=== PATIENT | female | born 1970 | race Hispanic/Latino ===

== ENCOUNTER 2020-09-09 23:07 | Emergency (ER) | payer OTHER ==
[2020-09-10] MEDS ORDERED: METHYLPREDNISOLONE 125 MG INJ ONE (00:46)
[2020-09-10] MEDS ORDERED: HYDROCODONE/APAP 5/325 MG TAB ONE (00:47)
[2020-09-10] MEDS ORDERED: KETOROLAC 30 MG/ML INJ ONE (00:47)
--- NOTE | 2020-09-10 01:05 | ER ---
Nurse's Notes [facility] Name: Katie Santiago Age: 50 yrs Sex: Female : 1970 Arrival Date: 09/09/2020 Time: 23:12 Bed 20 Private MD: Diagnosis: Coronavirus infection, unspecified Presentation: 09/09 23:25 Care prior to arrival: None. Transition of care: patient was not received from another sg setting of care. 23:25 Acuity: ERIN 3 sg 23:25 Chief complaint: Patient states: I tested positive for COVID and was diagnosed sg yesterday. My chest is hurting, especially with the cough and also feeling short of breath. 09/10 00:30 Initial Sepsis Screen: Does the patient meet any 2 criteria? No. Patient's initial sf sepsis screen is negative. Does the patient have a suspected source of infection? No. Patient's initial sepsis screen is negative. Risk Assessment: Do you want to hurt yourself or someone else? Patient reports no desire to harm self or others. Onset of symptoms was September 01, 2020. 00:35 Chief complaint: Patient states: Dx with COVID yesterday, having chest wall pain, cough sf and soa. 00:35 Coronavirus screen: Client reports previous positive COVID test result. Date of sf collection: September 08, 2020 Staff notified of need for isolation. Ebola Screen: Patient negative for fever greater than or equal to 101.5 degrees Fahrenheit, and additional compatible Ebola Virus Disease symptoms Patient denies exposure to infectious person. Patient denies travel to an Ebola-affected area in the 21 days before illness onset. No symptoms or risks identified at this time. 00:35 Method Of Arrival: Ambulatory sf Triage Assessment: 00:35 Musculoskeletal: No signs and/or symptoms reported regarding the musculoskeletal system.sf 00:40 General: Appears in no apparent distress. comfortable, Behavior is calm, cooperative, sf appropriate for age. Pain: Complains of pain in chest Pain currently is 10 out of 10 on a pain scale. EENT: No deficits noted. No signs and/or symptoms were reported regarding the EENT system. Neuro: No deficits noted. Level of Consciousness is awake, alert, obeys commands, Oriented to person, place, time, situation. Cardiovascular: Reports chest pain, shortness of breath, Denies diaphoresis, lightheadedness, palpitations, syncope, Patient's skin is warm and dry. Respiratory: Reports shortness of breath cough that is Airway is patent Respiratory effort is even, unlabored, Respiratory pattern is regular, symmetrical, Onset: The symptoms/episode began/occurred gradually, the patient has mild shortness of breath. GI: No signs and/or symptoms were reported involving the gastrointestinal system. : No signs and/or symptoms were reported regarding the genitourinary system. Derm: No signs and/or symptoms reported regarding the dermatologic system. 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 - Social history:: Patient/guardian denies using alcohol, street drugs, The patient lives with family, Smoking status: Patient denies any tobacco usage or history of. - Family history:: not pertinent. Screenin:35 Abuse screen: Denies threats or abuse. Denies injuries from another. Nutritional sf screening: No deficits noted. Tuberculosis screening: No symptoms or risk factors identified. Never had TB. Possible symptoms: None Risk factors: None. Fall Risk None identified. No fall in past 12 months (0 pts). No secondary diagnosis (0 pts). No IV (0 pts). Ambulatory Aid- None/Bed Rest/Nurse Assist (0 pts). Gait- Normal/Bed Rest/Wheelchair (0 pts) Mental Status- Oriented to own ability (0 pts). Total [place] Fall Scale indicates No Risk (0-24 pts). Assessment: 00:35 Reassessment: SEE TRIAGE ASSESSMENT. sf Vital Signs: 09/09 23:25 Resp 16; Pulse Ox 97% on R/A; sg 09/10 00:30 BP 120 / 89; Pulse 96; Resp 18; Temp 98; Pulse Ox 98% ; Weight 90.72 kg; Height 5 ft. 1 sf in. (154.94 cm); Pain 10/10; 00:30 Body Mass Index 37.79 (90.72 kg, 154.94 cm) sf ED Course: 09/09 23:12 Patient arrived in ED. cf2 23:25 Triage completed. 23:25 Arm band placed on. sg 23:53 Gavino Zamora, RN is Primary Nurse. sf 23:53 Fazal Kramer MD is Attending Physician. [facility] 09/10 00:10 X-ray(s) taken. sf 00:20 Chest Single View XRAY In Process Unspecified. EDMS 00:35 Patient has correct armband on for positive identification. Bed in low position. Call sf light in reach. Side rails up X 1. Pulse ox on. NIBP on. Door closed. Noise minimized. Visitors limited. Lights dimmed. Verbal reassurance given. 00:35 No provider procedures requiring assistance completed. sf 01:28 Patient did not have IV access during this emergency room visit. sf Administered Medications: 00:36 Drug: [place] 5 mg-325 mg 1 tabs Route: PO; sf 01:27 Follow up: Response: No adverse reaction; Pain is decreased sf 00:38 Drug: TORadol 60 mg Route: IM; Site: right ventrogluteal; sf 01:27 Follow up: Response: No adverse reaction; Pain is decreased sf 00:40 Drug: SOLU-Medrol 125 mg Route: IM; Site: left ventrogluteal; sf 01:27 Follow up: Response: No adverse reaction sf Outcome: 01:05 Discharge ordered by . [facility] 01:28 Discharged to home ambulatory. sf 01:28 Condition: stable 01:28 Discharge instructions given to patient, Instructed on discharge instructions, follow up and referral plans. medication usage, Demonstrated understanding of instructions, follow-up care, medications, Prescriptions given X 2. 01:28 Patient left the ED. sf Signatures: Dispatcher [employer] EDNM Gavino Cox RN RN Fazal Kramer MD MD [facility] Gavino Zamora, JULISSA RN sf Corrections: (The following items were deleted from the chart) 00:51 00:40 General: Appears in no apparent distress. comfortable, Behavior is calm, sf cooperative, appropriate for age, sf
--- NOTE | 2020-09-10 01:05 | EDPHYS ---
Physician Documentation [facility] Name: Katie Santiago Age: 50 yrs Sex: Female : 1970 Arrival Date: 09/09/2020 Time: 23:12 Bed 20 Private MD: ED Physician Fazal Kramer HPI: 09/10 00:18 This 50 yrs old Female presents to ER via Unassigned with complaints of COVID ma2 POSITIVE, Breathing Difficulty, Chest Pain, Fever. 00:19 Onset: The symptoms/episode began/occurred gradually, 1 day(s) ago. Associated signs ma2 and symptoms: Pertinent negatives: non-productive cough, diaphoresis, fever, loss of consciousness, numbness in extremities, visual changes. Severity of symptoms: At their worst the symptoms were mild in the emergency department the symptoms are unchanged. The patient has not experienced similar symptoms in the past. 00:19 covid has frequent cough, has chest wall pain everytimes she coughs, constant, pain is ma2 only when she cough or take deep breath, no cardiac history no substernal chest pain . 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 - Social history:: Patient/guardian denies using alcohol, street drugs, The patient lives with family, Smoking status: Patient denies any tobacco usage or history of. - Family history:: not pertinent. ROS: 00:19 Constitutional: Negative for fever, chills, and weight loss, Abdomen/GI: Negative for ma2 abdominal pain, nausea, diarrhea, and constipation, MS/Extremity: Negative for injury and deformity, Skin: Negative for injury, rash, and discoloration, Psych: Negative for depression, anxiety, suicide ideation, homicidal ideation, and hallucinations, Allergy/Immunology: Negative for hives, rash, and allergies, Endocrine: Negative for neck swelling, polydipsia, polyuria, polyphagia, and marked weight changes. 00:19 All other systems are negative. Exam: 00:19 Constitutional: This is a well developed, well nourished patient who is awake, alert, ma2 and in no acute distress. Head/Face: Normocephalic, atraumatic. Eyes: Pupils equal round and reactive to light, extra-ocular motions intact. Lids and lashes normal. Conjunctiva and sclera are non-icteric and not injected. Cornea within normal limits. Periorbital areas with no swelling, redness, or edema. ENT: Nares patent. No nasal discharge, no septal abnormalities noted. Tympanic membranes are normal and external auditory canals are clear. Oropharynx with no redness, swelling, or masses, exudates, or evidence of obstruction, uvula midline. Mucous membranes moist. Neck: Trachea midline, no thyromegaly or masses palpated, and no cervical lymphadenopathy. Supple, full range of motion without nuchal rigidity, or vertebral point tenderness. No Meningismus. Chest/axilla: Normal chest wall appearance and motion. chest pain reproducibel on exam and mildly tender with no deformity. No lesions are appreciated. Cardiovascular: Regular rate and rhythm with a normal S1 and S2. No gallops, murmurs, or rubs. Normal PMI, no JVD. No pulse deficits. Respiratory: Lungs have equal breath sounds bilaterally, clear to auscultation and percussion. No rales, rhonchi or wheezes noted. No increased work of breathing, no retractions or nasal flaring. Abdomen/GI: Soft, non-tender, with normal bowel sounds. No distension or tympany. No guarding or rebound. No evidence of tenderness throughout. Back: No spinal tenderness. No costovertebral tenderness. Full range of motion. Skin: Warm, dry with normal turgor. Normal color with no rashes, no lesions, and no evidence of cellulitis. MS/ Extremity: Pulses equal, no cyanosis. Neurovascular intact. Full, normal range of motion. Neuro: Awake and alert, GCS 15, oriented to person, place, time, and situation. Cranial nerves II-XII grossly intact. Motor strength 5/5 in all extremities. Sensory grossly intact. Cerebellar exam normal. Normal gait. Vital Signs: 09/09 23:25 Resp 16; Pulse Ox 97% on R/A; sg 09/10 00:30 BP 120 / 89; Pulse 96; Resp 18; Temp 98; Pulse Ox 98% ; Weight 90.72 kg; Height 5 ft. 1 sf in. (154.94 cm); Pain 10/10; 00:30 Body Mass Index 37.79 (90.72 kg, 154.94 cm) sf MDM: 09/09 23:53 Patient medically screened. ma2 09/10 00:19 Differential diagnosis: asthma, Bronchitis pneumonia, reactive airway disease, covid. ma2 Antibiotic administration: Not indicated. Data reviewed: vital signs, nurses notes. Counseling: I had a detailed discussion with the patient and/or guardian regarding: the historical points, exam findings, and any diagnostic results supporting the discharge/admit diagnosis, the presence of at least one elevated blood pressure reading (>120/80) during this emergency department visit, the need for outpatient follow up. ED course: she takes z-pack and cough suppressant . 09/09 23:54 Order name: Chest Single View XRAY ma2 Administered Medications: 00:36 Drug: [place] 5 mg-325 mg 1 tabs Route: PO; sf 01:27 Follow up: Response: No adverse reaction; Pain is decreased sf 00:38 Drug: TORadol 60 mg Route: IM; Site: right ventrogluteal; sf 01:27 Follow up: Response: No adverse reaction; Pain is decreased sf 00:40 Drug: SOLU-Medrol 125 mg Route: IM; Site: left ventrogluteal; sf 01:27 Follow up: Response: No adverse reaction sf Disposition: 09/10/20 01:05 Discharged to Home. Impression: Coronavirus infection, unspecified. - Condition is Stable. - Discharge Instructions: Viral Respiratory Infection, [id number], COVID-19. - Prescriptions for Diclofenac Sodium 75 mg Oral Tablet Sustained Release - take 1 tablet by ORAL route 2 times per day; 30 tablet. Medrol ([place]) 4 mg Oral Tablets, Dose Pack - take 1 tablet by ORAL route as directed - follow package instructions; 1 packet. - Medication Reconciliation Form, Thank You Letter, Antibiotic Education, Prescription Opioid Use form. - Follow up: Private Physician; When: Tomorrow; Reason: If symptoms return, Continuance of care. Signatures: Dispatcher [employer] EDMS Fazal Kramer MD MD ma2 Zamora, Gavino, RN RN sf Corrections: (The following items were deleted from the chart) 01:28 01:05 09/10/2020 01:05 Discharged to Home. Impression: Coronavirus infection, sf unspecified. Condition is Stable. Prescriptions for Diclofenac Sodium 75 mg Oral Tablet Sustained Release - take 1 tablet by ORAL route 2 times per day; 30 tablet, Medrol ([place]) 4 mg Oral Tablets, Dose Pack - take 1 tablet by ORAL route as directed - follow package instructions; 1 packet. and Forms are Medication Reconciliation Form, Thank You Letter, Antibiotic Education, Prescription Opioid Use. Follow up: Private Physician; When: Tomorrow; Reason: If symptoms return, Continuance of care. ma2
[2020-09-10 01:51] VITALS: BP 120/89; TEMP 98; O2SAT 98
--- NOTE | 2020-09-10 07:53 | RAD REPORT ---
EXAM DESCRIPTION: RAD - Chest Single View - 09/10/2020 12:21 am CLINICAL HISTORY: CONGESTION COMPARISON: None TECHNIQUE: AP portable chest image was obtained 09/10/2020 12:21 am . FINDINGS: Exam is significantly limited due to large body habitus, very shallow inspiration and lord otic positioning. A focal consolidation or mass not identified. Interstitial markings are prominent mostly due to the e xam limitations. Mild interstitial edema or infiltrate would certainly be possible. Trachea is in the midline. Heart and vasculature are normal. No measurable pleural effusion and no pneumothorax. No ac [place] bony abnormality seen. No acute aortic findings suspected. IMPRESSION: Exam is significantly limited but does not demonstrate peripheral mass or consolidation. Interstitial edema or infiltrate can be easily masked in this setting.
== END 2020-09-10 01:28 | disposition home or self-care (01) ==
LOC: ER 23:07
DX: U07.1 COVID-19 (principal); I10 Essential (primary) hypertension; E11.9 Type 2 diabetes mellitus without complications
CPT/HCPCS: 71045; J2930; 96372; 99284

== ENCOUNTER 2020-09-13 17:09 | Inpatient (IN) | payer OTHER ==
[2020-09-13] MEDS ORDERED: dexAMETHasone 10 MG/ML VIAL ONE (18:47)
[2020-09-13 19:02] LABS: Absolute Lymphocytes (CBC) 2.6 K/uL (0.7-4.9); Basophils % 0.2 % (0-1.3); Hematocrit 42.2 % (36.0-45.0); Lymphocytes % 16.9 % (15.3-44.8); MPV 8.7 fL (7.6-11.3); RBC Red Blood Cell Count 5.41 M/uL (3.86-4.86)
[2020-09-13 19:22] LABS: ALT/SGPT 25 U/L (12-78); AST/SGOT 25 U/L (15-37); Albumin 3.3 g/dL (3.4-5.0); Alkaline Phosphatase 128 U/L (45-117); BUN Blood Urea Nitrogen 14 mg/dL (7-18); Bicarbonate 27 mmol/L (21-32); Bilirubin Direct 0.1 mg/dL (0-0.2); Bilirubin Total 0.4 mg/dL (0.2-1.0); Glucose Level 100 mg/dL (74-106); Magnesium 2.3 mg/dL (1.8-2.4); NT PRO-BNP 156 pg/mL (<125); Potassium 3.4 mmol/L (3.5-5.1); Protein, Total 8.5 g/dL (6.4-8.2); Sodium Level 142 mmol/L (136-145); Troponin (Emerg Dept Use Only) < 0.02 ng/mL (0.0-0.045)
[2020-09-13 19:35] LABS: Protime INR 1.08
[2020-09-13] MEDS ORDERED: ACETAMINOPHEN 500 MG TAB ONE (20:02)
--- NOTE | 2020-09-13 20:02 | ER ---
Nurse's Notes [facility] Name: Katie Santiago Age: 50 yrs Sex: Female : 1970 Arrival Date: 09/13/2020 Time: 17:11 Bed 20 Private MD: Diagnosis: Pneumonia due to other specified infectious organisms;Coronavirus infection, unspecified;Hypoxemia Presentation: 09/13 17:30 Chief complaint: Patient states: Covid + last Wednesday. Been having cough, body aches, ll1 fever for 9 days. SOB for 3 days. Coronavirus screen: Client denies travel out of the [place] in the last 14 days. chills, congestion, cough unrelated to allergies, difficulty breathing, fatigue, fever, headache, muscle pain, nausea, runny nose, shaking with chills, shortness of breath, loss of taste or smell, vomiting. Client presents with at least one sign or symptom that may indicate coronavirus-19. Standard/surgical mask placed on the client. Ebola Screen: Patient denies travel to an Ebola-affected area in the 21 days before illness onset. Initial Sepsis Screen: Does the patient meet any 2 criteria? HR > 90 bpm. No. Patient's initial sepsis screen is negative. Does the patient have a suspected source of infection? Yes: Productive cough/pneumonia. Risk Assessment: Do you want to hurt yourself or someone else? Patient reports no desire to harm self or others. Onset of symptoms was September 02, 2020. 17:30 Method Of Arrival: Wheelchair ll1 17:30 Acuity: ERIN 2 ll1 DIRECTOR PUBLIC: 22:27 LMP N/A - Hysterectomy sf Historical: - Allergies: 17:30 No Known Allergies; ll1 - Home Meds: 19:32 metformin 500 mg Oral tr24 1 tab once daily [Active]; lisinopril 10 mg Oral tab 1 tab sf once daily [Active]; - PMHx: 17:30 Diabetes - NIDDM; Hypertension; ll1 - PSHx: 17:30 partial hysterectomy; ll1 - Immunization history:: Flu vaccine is not up to date. - Social history:: Smoking status: Patient denies any tobacco usage or history of. Screenin:01 Abuse screen: Denies threats or abuse. Nutritional screening: No deficits noted. bw Tuberculosis screening: No symptoms or risk factors identified. Fall Risk None identified. Assessment: 18:56 General: Appears uncomfortable, SOB. Behavior is cooperative, appropriate for age, bw anxious. Pain: Complains of pain in headache. Neuro: Reports headache. Cardiovascular: Rhythm is regular. Respiratory: Airway is patent Respiratory effort is even, labored, Breath sounds are diminished bilaterally. GI: Reports nausea, vomiting. : No deficits noted. EENT: No signs and/or symptoms were reported regarding the EENT system. Derm: No signs and/or symptoms reported regarding the dermatologic system. Musculoskeletal: No signs and/or symptoms reported regarding the musculoskeletal system. 19:29 General: Appears uncomfortable, Behavior is calm, cooperative, Reports feeling ill for. sf Pain: Complains of pain in head Pain currently is 10 out of 10 on a pain scale. Neuro: Level of Consciousness is awake, alert, Oriented to person, place, time, situation, Reports headache in entire. Cardiovascular: Patient's skin is warm and dry. Rhythm is sinus rhythm. Respiratory: Reports shortness of breath cough that is Airway is patent Respiratory effort is even, unlabored, Respiratory pattern is symmetrical, Denies pain with respiration, pain with cough. GI: Abdomen is non-distended, Reports nausea, vomiting. : No deficits noted. No signs and/or symptoms were reported regarding the genitourinary system. EENT: No signs and/or symptoms were reported regarding the EENT system. Derm: No signs and/or symptoms reported regarding the dermatologic system. Musculoskeletal: No signs and/or symptoms reported regarding the musculoskeletal system. 21:25 Reassessment: Patient appears in no apparent distress at this time. No changes from sf previously documented assessment. Patient and/or family updated on plan of care and expected duration. Pain level reassessed. Patient is alert, oriented x 3, equal unlabored respirations, skin warm/dry/pink. 22:27 Reassessment: Patient appears in no apparent distress at this time. No changes from sf previously documented assessment. Patient and/or family updated on plan of care and expected duration. Pain level reassessed. Patient is alert, oriented x 3, equal unlabored respirations, skin warm/dry/pink. Called lab to cancel serum due to hysterectomy. Vital Signs: 17:30 BP 125 / 99; Pulse 91; Resp 24; Temp 98.7; Pulse Ox 89% on R/A; Weight 90.72 kg; Height ll1 5 ft. 1 in. (154.94 cm); Pain 10/10; 17:36 Pulse 84; Resp 22; Pulse Ox 95% on 2 lpm NC; ll1 19:21 BP 130 / 86; Pulse 81; Resp 20; Pulse Ox 99% on 3 lpm NC; Pain 10/10; sf 20:42 BP 110 / 70; Pulse 81; Resp 20; Pulse Ox 99% on 3 lpm NC; sf 22:26 BP 104 / 63; Pulse 81; Resp 18; Pulse Ox 99% on 3 lpm NC; sf 17:30 Body Mass Index 37.79 (90.72 kg, 154.94 cm) ll1 17:30 O2 sat 89-92% RA during triage. ll1 ED Course: 17:11 Patient arrived in ED. mr 17:28 Arm band placed on. ll1 17:34 Triage completed. ll1 18:06 Jakob Burt PA is PHCP. cp 18:06 Cornelius Lynn MD is Attending Physician. cp 18:10 Patient placed in an exam room, on a stretcher. ll1 18:28 Rosa Whelan, RN is Primary Nurse. bw 19:00 XRAY Chest (1 view) In Process Unspecified. EDMS 19:01 Call light in reach. Side rails up X2. cardiac monitor technician on. Pulse ox on. NIBP on. Warm bw blanket given. 19:01 No provider procedures requiring assistance completed. Inserted saline lock: 20 gauge bw in right antecubital area, using aseptic technique. Blood collected. 19:05 Primary Nurse role handed off by Rosa Whelan, JULISSA sf 19:05 Gavino Zamora, JULISSA is Primary Nurse. sf 19:54 COVID swab sent to lab. jp3 20:00 Hitesh Gotti is Hospitalizing Provider. cp 20:05 CT Chest For PE Angio Sent. sf 20:20 CT Chest For PE Angio In Process Unspecified. EDMS 20:30 First set of blood cultures drawn by me. sf 20:40 Second set of blood cultures drawn by me. sf 20:49 Blood Culture Adult (2) Sent. sf 21:55 Urine collected: clean catch specimen, clear. sf 22:25 Urine Dipstick--Ancillary (enter results) Sent. sf 22:28 Patient admitted, IV remains in place. sf 22:47 Hospitalizing Provider role handed off by Hitesh Gotti cp 22:47 Escobar Haines MD is Hospitalizing Provider. cp Administered Medications: 18:55 Drug: Decadron - Dexamethasone 10 mg Route: IVP; Site: right antecubital; bw 19:28 Follow up: Response: No adverse reaction sf 19:55 Drug: Tylenol 1000 mg Route: PO; sf 20:25 Follow up: Response: No adverse reaction; Pain is unchanged, physician notified sf 19:55 Drug: Tussionex Pennkinetic ER (chlorpheniramine-hydrocodone) 5 ml Route: PO; sf 20:25 Follow up: Response: No adverse reaction; Marked relief of symptoms sf 19:55 Drug: Potassium Effervescent Tablet 25 mEq Route: PO; sf 20:25 Follow up: Response: No adverse reaction sf 21:56 Drug: Aspirin Chewable Tablet 81 mg Route: PO; sf 22:34 Follow up: Response: No adverse reaction sf 22:00 Drug: Rocephin - (cefTRIAXone) 1 grams Route: IVPB; Infused Over: 30 mins; Site: right sf antecubital; 22:05 Follow up: IV Status: Completed infusion; IV Intake: 10ml sf 22:34 Follow up: Response: No adverse reaction sf 22:05 Drug: Zithromax (azithromycin) 500 mg Route: IVPB; Infused Over: 1 hrs; Site: right sf antecubital; 22:41 Follow up: IV Status: Infusion continued upon admission sf Intake: 22:05 IV: 10ml; Total: 10ml. sf Outcome: 20:01 Decision to Hospitalize by Provider. cp 22:39 Admitted to Tele accompanied by tech, via wheelchair, room 414, with oxygen, Report sf called to JULISSA Mathis 22:39 Condition: stable 22:39 Instructed on the need for admit. 22:51 Patient left the ED. sf Signatures: Dispatcher [employer] [place] Antonia Buitrago Jakob Jaimes PA PA cp David Snow jp3 Brandon Stewart RN RN ll1 Gavino Zamora RN RN sf Webb, Bethany, RN RN Corrections: (The following items were deleted from the chart) 18:11 17:30 BP 125 / 99; Pulse 91bpm; Resp 24bpm; Pulse Ox 92% RA; Temp 98.7F; 90.72 kg; ll1 Height 5 ft. 1 in.; BMI: 37.7; Pain 10/10; ll1 21:30 19:21 BP 130 / 86; Pulse 81bpm; Resp 16bpm; Pulse Ox 99% 3 lpm Nasal Cannula; Pain sf 10; sf
--- NOTE | 2020-09-13 20:02 | EDPHYS ---
Physician Documentation [facility] Name: Katie Santiago Age: 50 yrs Sex: Female : 1970 Arrival Date: 09/13/2020 Time: 17:11 Bed 20 Private MD: ED Physician Cornelius Lynn HPI: 09/13 18:25 This 50 yrs old Female presents to ER via Wheelchair with complaints of cp COVID+, Breathing Difficulty, Cough. 18:25 The patient has shortness of breath at rest. Onset: The symptoms/episode began/occurred cp 3 day(s) ago. 18:25 Duration: The symptoms are continuous, and are steadily getting worse. Associated signs cp and symptoms: Pertinent positives: chest pain, non-productive cough, Pertinent negatives: fever. Patient reports testing positive for COVID-19 9 days ago. 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 - Social history:: Smoking status: Patient denies any tobacco usage or history of. ROS: 18:27 Constitutional: Negative for fever, poor PO intake. cp 18:27 Eyes: Negative for injury, pain, redness, and discharge. cp 18:27 Cardiovascular: Positive for chest pain, with cough, Negative for edema, palpitations. cp 18:27 Respiratory: Positive for cough, with no reported sputum, shortness of breath, at rest. cp Negative for wheezing. 18:27 Abdomen/GI: Negative for abdominal pain, vomiting, diarrhea, constipation. 18:27 Neuro: Negative for altered mental status, syncope, weakness. 18:27 All other systems are negative. Exam: 18:28 ECG was reviewed by the Attending Physician. cp 18:30 Constitutional: The patient appears alert, awake, non-diaphoretic, non-toxic, well cp developed, well nourished, obese, in obvious distress, mildly distressed. 18:30 Head/Face: Normocephalic, atraumatic. cp 18:30 Eyes: Periorbital structures: appear normal, Conjunctiva: normal, no exudate, no cp injection, Sclera: no appreciated abnormality, Lids and lashes: appear normal, bilaterally. 18:30 ENT: External ear(s): are unremarkable, Nose: is normal, Mouth: Lips: moist, Oral mucosa: moist, Posterior pharynx: Airway: no evidence of obstruction, patent. 18:30 Neck: ROM/movement: is normal, is supple, without pain, no range of motions limitations, no meningismus. 18:30 Chest/axilla: Inspection: normal, Palpation: is normal, no crepitus, no tenderness. 18:30 Cardiovascular: Rate: normal, Rhythm: regular, Edema: is not appreciated, JVD: is not appreciated. 18:30 Respiratory: the patient does not display signs of respiratory distress, Respirations: normal, no use of accessory muscles, no retractions, labored breathing, is not present, Breath sounds: bronchial sounds, that are mild, are heard diffusely, stridor, is not appreciated, wheezing: is not appreciated. 18:30 Abdomen/GI: Inspection: abdomen appears normal, Palpation: abdomen is soft and non-tender, in all quadrants. 18:30 Back: ROM is normal. cp 18:30 Neuro: Orientation: to person, place \T\ time. Mentation: is normal, Motor: moves all fours, strength is normal. Vital Signs: 17:30 BP 125 / 99; Pulse 91; Resp 24; Temp 98.7; Pulse Ox 89% on R/A; Weight 90.72 kg; Height ll1 5 ft. 1 in. (154.94 cm); Pain 10/10; 17:36 Pulse 84; Resp 22; Pulse Ox 95% on 2 lpm NC; ll1 19:21 BP 130 / 86; Pulse 81; Resp 20; Pulse Ox 99% on 3 lpm NC; Pain 10/10; sf 20:42 BP 110 / 70; Pulse 81; Resp 20; Pulse Ox 99% on 3 lpm NC; sf 22:26 BP 104 / 63; Pulse 81; Resp 18; Pulse Ox 99% on 3 lpm NC; sf 17:30 Body Mass Index 37.79 (90.72 kg, 154.94 cm) ll1 17:30 O2 sat 89-92% RA during triage. ll1 MDM: 18:18 Patient medically screened. 20:00 Data reviewed: vital signs, nurses notes, lab test result(s), EKG, radiologic studies, cp CT scan, plain films. 20:00 Test interpretation: by ED physician or midlevel provider: ECG, plain radiologic cp studies. 20:00 Physician consultation: Oumar ANG was contacted at 20:00, regarding admission, to the telemetry unit. patient's condition. 20:00 Response to treatment: the patient's symptoms have mildly improved after treatment. 09/13 18:23 Order name: Basic Metabolic Panel; Complete Time: 19:45 cp 09/13 19:45 Interpretation: Normal except: K 3.4; GFR 89. cp 09/13 18:23 Order name: CBC with Diff; Complete Time: 19:45 cp 09/13 18:23 Order name: LFT's; Complete Time: 19:45 cp 09/13 18:23 Order name: Magnesium; Complete Time: 19:45 cp 09/13 18:23 Order name: NT PRO-BNP; Complete Time: 19:45 cp 09/13 18:23 Order name: PT-INR; Complete Time: 19:45 cp 09/13 18:23 Order name: Troponin (emerg Dept Use Only); Complete Time: 19:45 cp 09/13 18:23 Order name: D-Dimer; Complete Time: 19:45 cp 09/13 18:23 Order name: CRP; Complete Time: 19:45 cp 09/13 19:54 Order name: Urine Microscopic Only cp 09/13 19:59 Order name: Blood Culture Adult (2) cp 09/13 19:59 Order name: Lactate cp 09/13 19:59 Order name: Procalcitonin cp 09/13 18:23 Order name: XRAY Chest (1 view); Complete Time: 21:10 cp 09/13 18:23 Order name: EKG; Complete Time: 18:24 cp 09/13 19:47 Order name: CT Chest For PE Angio; Complete Time: 21:10 cp 09/13 19:59 Order name: Blood Culture EDKS 09/13 20:42 Order name: SARS-COV-2 RT PCR; Complete Time: 21:10 EDKS 09/13 21:10 Interpretation: Abnormal: SARSCOV2 RT PCR POSITIVE. 09/13 21:58 Order name: CONS Physician Consult EDKS 09/13 22:12 Order name: Urine Dipstick--Ancillary (enter results) mw2 09/13 22:12 Order name: Urine Dipstick-Ancillary [facility] 09/13 18:23 Order name: Cardiac monitoring; Complete Time: 18:56 cp 09/13 18:23 Order name: EKG - Nurse/Tech; Complete Time: 18:32 cp 09/13 18:23 Order name: IV Saline Lock; Complete Time: 18:56 cp 09/13 18:23 Order name: Labs collected and sent; Complete Time: 18:56 cp 09/13 18:23 Order name: O2 Per Protocol; Complete Time: 18:56 cp 09/13 18:23 Order name: O2 Sat Monitoring; Complete Time: 18:56 cp 09/13 19:54 Order name: Urine Dipstick-Ancillary (obtain specimen) 09/13 19:54 Order name: Urine Test (obtain specimen); Complete Time: 22:15 cp EC:28 Rate is 86 beats/min. Rhythm is regular. WA interval is normal. QRS interval is normal. cp QT interval is normal. T waves are Inverted in lead aVR. Interpreted by me. Reviewed by me. Administered Medications: 18:55 Drug: Decadron - Dexamethasone 10 mg Route: IVP; Site: right antecubital; 19:28 Follow up: Response: No adverse reaction sf 19:55 Drug: Tylenol 1000 mg Route: PO; sf 20:25 Follow up: Response: No adverse reaction; Pain is unchanged, physician notified sf 19:55 Drug: Tussionex Pennkinetic ER (chlorpheniramine-hydrocodone) 5 ml Route: PO; sf 20:25 Follow up: Response: No adverse reaction; Marked relief of symptoms sf 19:55 Drug: Potassium Effervescent Tablet 25 mEq Route: PO; sf 20:25 Follow up: Response: No adverse reaction sf 21:56 Drug: Aspirin Chewable Tablet 81 mg Route: PO; sf 22:34 Follow up: Response: No adverse reaction sf 22:00 Drug: Rocephin - (cefTRIAXone) 1 grams Route: IVPB; Infused Over: 30 mins; Site: right sf antecubital; 22:05 Follow up: IV Status: Completed infusion; IV Intake: 10ml sf 22:34 Follow up: Response: No adverse reaction sf 22:05 Drug: Zithromax (azithromycin) 500 mg Route: IVPB; Infused Over: 1 hrs; Site: right sf antecubital; 22:41 Follow up: IV Status: Infusion continued upon admission sf Disposition: 09/13/20 20:01 Hospitalization ordered by Escobar Haines for Inpatient Admission. Preliminary diagnosis are Pneumonia due to other specified infectious organisms, Coronavirus infection, unspecified, Hypoxemia. - Bed requested for Telemetry/MedSurg (Inpatient). - Status is Inpatient Admission. sf - Condition is Stable. - Problem is new. - Symptoms have improved. Addendum: 09/16/2020 08:24 Co-signature as Attending Physician, Cornelius Lynn MD I agree with the assessment and k dr plan of care. Signatures: Dispatcher [employer] [facility] Lesli Whelan RN RN mw Rittger, Kevin, MD MD [facility] Jakob Burt PA PA cp Brandon Stweart RN RN [facility] Gavino Zamora RN RN [facility] Corrections: (The following items were deleted from the chart) 09/13 19:45 18:24 CORONAVIRUS+MR.LAB.BRZ ordered. [facility] EDKS 22:01 20:01 Hospitalization Ordered by Hitesh Gotti for Inpatient Admission. Preliminary mw diagnosis is Pneumonia due to other specified infectious organisms; Coronavirus infection, unspecified; Hypoxemia. Bed requested for Telemetry/MedSurg (Inpatient). Status is Inpatient Admission. Condition is Stable. Problem is new. Symptoms have improved. cp 22:28 22:12 TEST, SERUM+SC.LAB.BRZ ordered. [facility] EDMS 22:47 22:01 09/13/2020 20:01 Hospitalization Ordered by Hitesh Gotti for Inpatient cp Admission. Preliminary diagnosis is Pneumonia due to other specified infectious organisms; Coronavirus infection, unspecified; Hypoxemia. Bed requested for Telemetry/MedSurg (Inpatient). Status is Inpatient Admission. Condition is Stable. Problem is new. Symptoms have improved. mw 22:51 22:47 09/13/2020 20:01 Hospitalization Ordered by Escobar Haines MD for Inpatient sf Admission. Preliminary diagnosis is Pneumonia due to other specified infectious organisms; Coronavirus infection, unspecified; Hypoxemia. Bed requested for Telemetry/MedSurg (Inpatient). Status is Inpatient Admission. Condition is Stable. Problem is new. Symptoms have improved. cp
[2020-09-13] MEDS ORDERED: HYDROCODONE/CHLORPHEN 5 ML/OSYR ONE (20:06)
[2020-09-13] MEDS ORDERED: POTASSIUM 25 MEQ EFFERV TAB ONE (20:06)
--- NOTE | 2020-09-13 20:31 | RAD REPORT ---
EXAM DESCRIPTION: Jaimee Single View3 7:00 pm CLINICAL HISTORY: Chest pain COMPARISON: September 10, 2020 FINDINGS: Moderate bilateral pulmonary opacities Heart is normal size IMPRESSION: Moderate bilateral pulmonary opacities likely pneumonia
--- NOTE | 2020-09-13 20:31 | RAD REPORT ---
EXAM DESCRIPTION: CT - Chest For Pe Angio - 09/13/2020 8:20 pm CLINICAL HISTORY: Chest pain COMPARISON: None. TECHNIQUE: Dynamically enhanced axial 3 mm thick images of the chest were obtained during administra tion of <100> mL Isovue 370 IV contrast. Coronal and oblique reconstruction images were generated and reviewed. Exam utilizes a protocol for optimal evaluation of pulmonary arterial tree. Maximum intensity projections 3D imaging was utilized All CT scans are performed using dose optimization technique as appropriate and may include automated exposure control or mA/KV adjustment according to patient size. FINDINGS: A pulmonary embolus is not seen. A thoracic aortic aneurysm is not noted. A pleural effusion is not seen. A pericardial effusion is not seen. Moderate bilateral ground-glass opacities within the lungs. Fatty liver. Small hiatal hernia IMPRESSION: Negative for a pulmonary embolism. Covid Moderate bilateral ground-glass opacities within the lungs may be secondary to pneumonia
[2020-09-13] MEDS ORDERED: ASPIRIN 81 MG CHEWABLE TABLET ONE (22:05)
[2020-09-13] MEDS ORDERED: AZITHROMYCIN 500 MG INJ IVPB ONE (22:05)
[2020-09-13] MEDS ORDERED: CEFTRIAXONE/SWI 1gm 1 GM/10 ML SYR ONE (22:05)
[2020-09-13] MEDS ORDERED: NA CHLORIDE 0.9% 250 ML ONE (22:08)
[2020-09-13 22:18] LABS: Urine Blood TRACE (Negative); Urine Glucose NEGATIVE (Negative); Urine Protein 1+ (NEG); Urine Specific Gravity <1.005 (1.005-1.030); Urine pH 6.5 (5.0-7.0)
[2020-09-13 22:31] LABS: Urine Bacteria NONE SEEN /HPF (<20); Urine RBC <5 /HPF (NONE SEEN)
[2020-09-13 23:10] VITALS: BMI 37.5
[2020-09-13] MEDS ORDERED: MELATONIN 5 MG TABLET PO PRN (23:28)
[2020-09-13] MEDS ORDERED: ACETAMINOPHEN 500 MG TAB PO PRN (23:28)
[2020-09-13] MEDS ORDERED: ONDANSETRON 4 MG/2 ML VIAL IV PRN (23:28)
[2020-09-13] MEDS ORDERED: INSULIN -REGULAR HUMAN 50 UNIT/0.5 ML ML SQ ONE (23:45)
[2020-09-13] MEDS ORDERED: NAPROXEN 250 MG TAB PO ONE (23:52)
[2020-09-14] MEDS: MORPHINE 2 MG/ML SYR IV PRN ×2 (00:16→08:31)
--- NOTE | 2020-09-14 02:47 | P.HP ---
Certification for Inpatient Patient admitted to: Inpatient With expected LOS: >2 Midnights Patient will require the following post-hospital care: None Practitioner: I am a practitioner with admitting privileges, knowledge of patient current condition, hospital course, and medical plan of care. Services: Services provided to patient in accordance with Admission requirements found in Title 42 Section 412.3 of the Code of Federal Regulations Patient History Date of Service: 09/13/20 Primary Care Provider: Dr. Nuñez Reason for admission: covid pneumonia History of Present Illness: Ms. Santiago is a 50 yo female with DM and HTN here today for increased SOB, COVID+ since 09/08. She said she had low O2 sats at home, SOB, AYALA, worse at night. She reports chills, night sweats, malaise, fatigue, cough, runny nose, nausea, vomiting, pleuritc pain, wheezing. Denies diarrhea and hemoptysis. She reports no relief with Nyquil or Tylenol. She first started having symptoms 09/04. She came to the ER and received steroids with mild relief and went home with steroids and antibiotics. Sats today 89% on presentation. WBC 15.6. D dimer 721. K 3.4. CRP 160. CXR and CTPE shows moderate bilateral pulmonary opacities likely pneumonia, negative for pulmonary embolism. Allergies No Known Allergies Allergy (Unverified 09/13/20 22:37) Home Medications: Lisinopril [Zestril] 10 mg PO DAILY 09/13/20 Metformin HCl 500 mg PO DAILY 09/13/20 - Past Medical/Surgical History Has patient received pneumonia vaccine in the past: No Diabetic: Yes -: Hypertension -: Diabetes -NIDDM -: Tubal Ligation -: Partial Hysterectomy - Family History Father -: Hypertension - Social History Smoking Status: Never smoker Alcohol use: No CD- Drugs: No Caffeine use: Yes Place of Residence: Home Review of Systems General: Fever, Chills, Sweats, Malaise, As per HPI Eyes: Unremarkable ENT: Nose Discharge, Nose Congestion, As per HPI Respiratory: Cough, Shortness of Breath, SOB with Excertion, Pleuritic Pain, Wheezing, As per HPI Cardiovascular: Unremarkable Gastrointestinal: Nausea, Vomiting, As per HPI Genitourinary: Unremarkable Musculoskeletal: Unremarkable Integumentary: Unremarkable Neurological: Unremarkable Lymphatics: Unremarkable Physical Examination - Vital Signs Temperature: 97.3 F Blood Pressure: 127/73 Pulse: 84 Respirations: 17 Pulse Ox (%): 94 - Physical Exam General: Alert, In no apparent distress, Oriented x3, Cooperative HEENT: Atraumatic, Normocephalic, PERRLA, Mucous membr. moist/pink, EOMI, Sclerae nonicteric Neck: Supple, 2+ carotid pulse no bruit, JVD not distended, No Thyromegaly, No LAD Respiratory: Diminished, Rhonchi/gurgles Cardiovascular: No edema, Normal pulses, Regular rate/rhythm, Normal S1 S2, No gallops, No rubs, No murmurs Capillary refill: <2 Seconds Gastrointestinal: Normal bowel sounds, Soft and benign, Non-distended, No ascites, No tenderness, No masses, No rebound, No guarding Musculoskeletal: No clubbing, No swelling, No contractures, No erythema, No tenderness, No warmth Integumentary: No rashes, No breakdown, No significant lesion, No tenderness/swelling, No erythema, No warmth, No cyanosis Neurological: Normal speech, Normal strength at 5/5 x4 extr, Normal tone, Sensation intact, Cranial nerves 3-12 intact, Normal affect Lymphatics: No axilla or inguinal lymphadenopathy - Studies Laboratory Data (last 24 hrs) 09/13/20 18:52: PT 12.4, INR 1.08 09/13/20 18:52: WBC 15.60 H, Hgb 13.7, Hct 42.2, Plt Count 328 09/13/20 18:52: Sodium 142, Potassium 3.4 L, BUN 14, Creatinine 0.70, Glucose 100, Magnesium 2.3, Total Bilirubin 0.4, AST 25, ALT 25, Alkaline Phosphatase 128 H Assessment and Plan - Problems (Diagnosis) (1) Pneumonia due to COVID-19 virus Current Visit: Yes Status: Acute (2) Diabetes Current Visit: Yes Status: Chronic Qualifiers: Diabetes mellitus type: type 2 Diabetes mellitus long term acute care registered nurse insulin use: without fdc use Diabetes mellitus complication status: without complication Qualified Code(s): E11.9 - Type 2 diabetes mellitus without complications (3) Hypertension Current Visit: Yes Status: Chronic Qualifiers: Hypertension type: essential hypertension Qualified Code(s): I10 - Essential (primary) hypertension - Plan -pulm consulted, respiratory consulted -daily sats, sats for home O2 -covid supplements, steroids, ivermectin -potassium replacement -sliding scale insulin and accuchecks -will reconcile and restart home BP medications Discharge Plan: Home Plan to discharge in: 72 Hours - Advance Directives Does patient have a Living Will: No Does patient have a Durable POA for Healthcare: No - Code Status/Comfort Care Code Status Assessed: Yes (full code) Critical Care: No Time Spent Managing Pts Care (In Minutes): 70
[2020-09-14 03:53] LABS: Absolute Lymphocytes (CBC) 0.9 K/uL (0.7-4.9); Basophils % 0.1 % (0-1.3); Hematocrit 36.5 % (36.0-45.0); Lymphocytes % 11.5 % (15.3-44.8); MPV 8.8 fL (7.6-11.3); RBC Red Blood Cell Count 4.63 M/uL (3.86-4.86)
[2020-09-14] MEDS: BENZONATATE 100 MG CAP PO PRN (03:57)
[2020-09-14 04:17] LABS: ALT/SGPT 21 U/L (12-78); AST/SGOT 20 U/L (15-37); Albumin 2.8 g/dL (3.4-5.0); Alkaline Phosphatase 114 U/L (45-117); BUN Blood Urea Nitrogen 19 mg/dL (7-18); Bicarbonate 27 mmol/L (21-32); Bilirubin Total 0.3 mg/dL (0.2-1.0); Ferritin 217.8 ng/mL (8-388); Glucose Level 257 mg/dL (74-106); Protein, Total 7.3 g/dL (6.4-8.2); Sodium Level 140 mmol/L (136-145)
[2020-09-14] MEDS: INSULIN -REGULAR HUMAN 50 UNIT/0.5 ML ML SQ SCH ×4 (07:30→22:03)
[2020-09-14] MEDS: ASCORBIC ACID 500 MG TABLET PO SCH ×4 (08:21→22:03)
[2020-09-14] MEDS: VITAMIN D 1000 UNIT TAB PO SCH (08:21)
[2020-09-14] MEDS: FAMOTIDINE 20 MG TAB PO SCH ×2 (08:21→22:04)
[2020-09-14] MEDS: ZINC SULFATE 220 MG CAP PO SCH (08:21)
[2020-09-14] MEDS: THIAMINE HCL 100 MG TABLET PO SCH (08:21)
[2020-09-14] MEDS: METHYLPREDNISOLONE 125 MG INJ IV SCH ×2 (08:22→22:03)
[2020-09-14] MEDS ORDERED: ENOXAPARIN 40 MG/0.4 ML SQ SCH (09:00)
[2020-09-14] MEDS: IVERMECTIN 3 MG TABLET PO SCH (10:19)
[2020-09-14] MEDS: BUDESONIDE 0.5 MG/2 ML NEB NEB SCH ×2 (10:37→21:10)
--- NOTE | 2020-09-14 10:40 | P.CNS ---
Date of Consult: 09/14/20 Reason for Consult: Respiratory failure from gutierrez virus Primary Care Provider: Dr. Nuñez Chief Complaint: covid pneumonia History of Present Illness: Patient is 50 years of age history diabetes hypertension worsening dyspnea test ed positive for gutierrez virus on September 18 became progressively more short of breath complaining of severe cough shortness of breath on mild exertion wheezing admitted with gutierrez virus pneumonia plastic ground-glass changes Patient states the steroids help Allergies No Known Allergies Allergy (Unverified 09/13/20 22:37) Home Medications: Lisinopril [Zestril] 10 mg PO DAILY 09/13/20 Metformin HCl 500 mg PO DAILY 09/13/20 - Past Medical/Surgical History Diabetic: Yes -: Hypertension -: Diabetes -NIDDM -: Tubal Ligation -: Partial Hysterectomy - Family History Father Medical History: Hypertension - Social History Alcohol use: No CD- Drugs: No Caffeine use: Yes Place of Residence: Home Review of Systems General: Weakness Respiratory: Cough, Shortness of Breath Physical Examination Temp Pulse Resp BP Pulse Ox 97.4 F 63 20 132/75 91 09/14/20 08:00 09/14/20 08:00 09/14/20 08:00 09/14/20 08:00 09/14/20 08:00 Laboratory Data (last 24 hrs) 09/13/20 18:52: PT 12.4, INR 1.08 09/13/20 18:52: WBC 15.60 H, Hgb 13.7, Hct 42.2, Plt Count 328 09/13/20 18:52: Sodium 142, Potassium 3.4 L, BUN 14, Creatinine 0.70, Glucose 100, Magnesium 2.3, Total Bilirubin 0.4, AST 25, ALT 25, Alkaline Phosphatase 128 H - Problems (1) Pneumonia due to COVID-19 virus Current Visit: Yes Status: Acute Plan: Patient is 50 years of age admitted with pneumonia due to gutierrez virus steroids are helping currently on 3 L of nasal cannula oxygen CT scan classic changes bilaterally continue with the steroids I have added nebulized Pulmicort.Remdesmi saturation satisfactory on 3 L anti coagulated with Eliquis continue to monitor
--- NOTE | 2020-09-14 11:12 | EKG ---
Test Date: 2020-09-13 Test Time: 18:21:23 Field Marketing Manager: MAGEN MEASUREMENT RESULTS: Intervals: Rate: 86 AK: 146 QRSD: 78 QT: 360 QTc: 430 [place]: P: 35 AK: 146 QRS: -4 T: 26 INTERPRETIVE STATEMENTS: Normal sinus rhythm Normal ECG No previous ECG available for comparison Electronically Signed On 09-14-20 11:11:10 CDT by Ignacio Cisneros
--- NOTE | 2020-09-14 13:13 | P.PN ---
Subjective Date of Service: 09/14/20 Primary Care Provider: Dr. Nuñez Chief Complaint: covid pneumonia Subjective: No new changes Physical Examination - Vital Signs Temperature: 97.7 F Blood Pressure: 132/79 Pulse: 75 Respirations: 20 Pulse Ox (%): 93 - Studies Laboratory Data (last 24 hrs) 09/13/20 18:52: PT 12.4, INR 1.08 09/13/20 18:52: WBC 15.60 H, Hgb 13.7, Hct 42.2, Plt Count 328 09/13/20 18:52: Sodium 142, Potassium 3.4 L, BUN 14, Creatinine 0.70, Glucose 100, Magnesium 2.3, Total Bilirubin 0.4, AST 25, ALT 25, Alkaline Phosphatase 128 H Assessment And Plan - Current Problems (Diagnosis) (1) Pneumonia due to COVID-19 virus Current Visit: Yes Status: Acute (2) Diabetes Current Visit: Yes Status: Chronic Qualifiers: Diabetes mellitus type: type 2 Diabetes mellitus snf insulin use: without filler leaf cutter long use Diabetes mellitus complication status: without complication Qualified Code(s): E11.9 - Type 2 diabetes mellitus without complications (3) Hypertension Current Visit: Yes Status: Chronic Qualifiers: Hypertension type: essential hypertension Qualified Code(s): I10 - Essential (primary) hypertension Physician Review Additional Text: GEN-Middle aged female , on 3L HEENT-DELFINA,EOMI RESP-b/l coarse creps, no wheeze CV-SIS2, RRR GI-full , soft , BS + ALLEN-no pedal edema b/l , no CT NEURO- alert, oriented IMPRESSION Covid pneumonia Hypertension Acute respiratory failure. PLAN -will wean O2 as tolerated -Continue (/IV steroids/vitamin supplementation -continue Pulmicort and Eliquis for pulmonary -Follow pulmonary recommendation -continue GI and DVT prophylaxis Time Spent Managing PTS Care (In Minutes): 35
[2020-09-14] MEDS: GUAIFENESIN 600 MG SA TAB PO SCH ×2 (13:48→22:03)
[2020-09-14] MEDS: GUAIFENESIN/DM 5 ML UCUP PO PRN ×2 (14:17→22:03)
[2020-09-14] MEDS ORDERED: APIXABAN 2.5 MG TABLET PO SCH (21:00)
[2020-09-14] MEDS: HYDROCODONE/APAP 5/325 MG TAB PO PRN (22:04)
[2020-09-15] MEDS: INSULIN -REGULAR HUMAN 50 UNIT/0.5 ML ML SQ SCH ×4 (07:30→20:24)
[2020-09-15] MEDS: HYDROCODONE/APAP 5/325 MG TAB PO PRN ×2 (08:18→17:06)
[2020-09-15] MEDS: VITAMIN D 1000 UNIT TAB PO SCH (08:19)
[2020-09-15] MEDS: APIXABAN 5 MG TABLET PO SCH ×2 (08:19→20:25)
[2020-09-15] MEDS: FAMOTIDINE 20 MG TAB PO SCH ×2 (08:20→20:27)
[2020-09-15] MEDS: THIAMINE HCL 100 MG TABLET PO SCH (08:20)
[2020-09-15] MEDS: ASCORBIC ACID 500 MG TABLET PO SCH ×4 (08:20→20:25)
[2020-09-15] MEDS: ZINC SULFATE 220 MG CAP PO SCH (08:20)
[2020-09-15] MEDS: METHYLPREDNISOLONE 125 MG INJ IV SCH ×2 (08:20→20:27)
[2020-09-15] MEDS: GUAIFENESIN 600 MG SA TAB PO SCH ×2 (08:20→20:26)
[2020-09-15] MEDS: BUDESONIDE 0.5 MG/2 ML NEB NEB SCH ×2 (09:00→20:05)
[2020-09-15] MEDS: ASPIRIN EC 81 MG TAB PO SCH (10:03)
[2020-09-15] MEDS: GUAIFENESIN/DM 5 ML UCUP PO PRN ×2 (10:48→17:06)
[2020-09-15] MEDS: BENZONATATE 100 MG CAP PO PRN (11:54)
[2020-09-15] MEDS ORDERED: FUROSEMIDE 40 MG/4 ML VIAL IV ONE (14:03)
--- NOTE | 2020-09-15 14:03 | P.PN ---
Subjective Date of Service: 09/15/20 Primary Care Provider: Dr. 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 use: without mcc use Diabetes mellitus complication status: without complication Qualified Code(s): E11.9 - Type 2 diabetes mellitus without complications (3) Hypertension Current Visit: Yes Status: Chronic Qualifiers: Hypertension type: essential hypertension Qualified Code(s): I10 - Essential (primary) hypertension Physician Review: Patient Assessed, Agree with Above Assessment and Plan Physician Review Additional Text: GEN-Middle aged female , weaned down to 2L NC 02 HEENT-DELFINA,EOMI RESP- still mild but improving coarse creps, no wheeze CV-SIS2, RRR GI-full , soft , BS + ALLEN-no pedal edema b/l , no CT NEURO- alert, oriented IMPRESSION Covid pneumonia Hypertension Acute respiratory failure. PLAN -Continue Remdesivir regime -c/w to wean O2 as tolerated -will add guanefesine to regime for cough symptoms -Patient hesistant for possible dc today , will reevaluate for dc in am -dose lasix x1 today -Continue IV steroids/vitamin supplementation -continue Pulmicort and Eliquis for pulmonary -Follow pulmonary recommendation -continue GI and DVT prophylaxis
[2020-09-16 04:34] LABS: BUN Blood Urea Nitrogen 22 mg/dL (7-18); Bicarbonate 29 mmol/L (21-32); Glucose Level 228 mg/dL (74-106); Potassium 4.1 mmol/L (3.5-5.1); Sodium Level 139 mmol/L (136-145)
[2020-09-16] MEDS: BUDESONIDE 0.5 MG/2 ML NEB NEB SCH (07:21)
[2020-09-16] MEDS ORDERED: IVERMECTIN 3 MG TABLET PO ONE (08:07)
--- NOTE | 2020-09-16 08:08 | P.PN ---
Subjective Date of Service: 09/16/20 Primary Care Provider: Dr. Nuñez Chief Complaint: covid pneumonia Subjective: Improving (Patient still complains of shortness of breath and cough on nasal cannula O2) Review of Systems General: Weakness Respiratory: Cough, Shortness of Breath Physical Examination - Vital Signs Temperature: 97.3 F Blood Pressure: 149/88 Pulse: 57 Respirations: 16 Pulse Ox (%): 94 Assessment & Plan - Problems (Diagnosis) (1) Pneumonia due to COVID-19 virus Current Visit: Yes Status: Acute Plan: P patient is improving stable on nasal cannula oxygen still complaining of cough shortness of breath plan to discharge on anticoagulation aspirin and prednisone, ivermection possible discharge today blood sugars mildly elevated Physician Review: Patient Assessed, Agree with Above Assessment and Plan
[2020-09-16 08:15] VITALS: O2SAT 95
[2020-09-16] MEDS: INSULIN -REGULAR HUMAN 50 UNIT/0.5 ML ML SQ SCH ×2 (08:39→12:29)
[2020-09-16] MEDS: ASPIRIN EC 81 MG TAB PO SCH (08:40)
[2020-09-16] MEDS: GUAIFENESIN 600 MG SA TAB PO SCH (08:40)
[2020-09-16] MEDS: THIAMINE HCL 100 MG TABLET PO SCH (08:40)
[2020-09-16] MEDS: VITAMIN D 1000 UNIT TAB PO SCH (08:40)
[2020-09-16] MEDS: FAMOTIDINE 20 MG TAB PO SCH (08:40)
[2020-09-16] MEDS: METHYLPREDNISOLONE 125 MG INJ IV SCH (08:41)
[2020-09-16] MEDS: ZINC SULFATE 220 MG CAP PO SCH (08:41)
[2020-09-16] MEDS: APIXABAN 5 MG TABLET PO SCH (08:41)
[2020-09-16] MEDS: GUAIFENESIN/DM 5 ML UCUP PO PRN (08:41)
[2020-09-16] MEDS: ASCORBIC ACID 500 MG TABLET PO SCH ×2 (08:41→12:29)
[2020-09-16] MEDS ORDERED: METFORMIN HCL 500 MG TAB PO SCH (09:00)
[2020-09-16] MEDS: IVERMECTIN 3 MG TABLET PO SCH (09:49)
[2020-09-16] MEDS: BENZONATATE 100 MG CAP PO PRN ×2 (09:53→13:22)
--- NOTE | 2020-09-16 10:45 | P.DS ---
Admission Date: 09/13/20 Discharge Date: 09/16/20 Primary Care Provider: Dr. Juli Roque Disposition: ROUTINE DISCHARGE Discharge Condition: GOOD Reason for Admission: covid pneumonia Consultations: Pulmonary-Dr. Drummond Procedures: COVID: Positive CT Scan: COMPARISON: None. TECHNIQUE: Dynamically enhanced axial 3 mm thick images of the chest were obtained during administration of <100> mL Isovue 370 IV contrast. Coronal and oblique reconstruction images were generated and reviewed. Exam utilizes a pr otocol for optimal evaluation of pulmonary arterial tree. Maximum intensity projections 3D imaging was utilized All CT scans are performed using dose optimization technique as appropriate and may include automated exposure control or mA/KV adjustment according to patient size. FINDINGS: A pulmonary embolus is not seen. A thoracic aortic aneurysm is not noted. A pleural effusion is not seen. A pericardial effusion is not seen. Moderate bilateral ground-glass opacities within the lungs. Fatty liver. Small hiatal hernia IMPRESSION: Negative for a pulmonary embolism. Covid Moderate bilateral ground-glass opacities within the lungs may be secondary to pneumonia Medical Problem List: Dyspnea, hypoxia secondary to bilateral Covid pneumonia Diabetes mellitus type 2 [id number] Hypertension GERD with hiatal hernia Fatty liver Obesity, BMI 37 Brief History of Present Illness: 50 yo female with DM and HTN here today for increased SOB, COVID+ since 09/08. She said she had low O2 sats at home, SOB, AYALA, worse at night. She reports chills, night sweats, malaise, fatigue, cough, runny nose, nausea, vomiting, pleuritc pain, wheezing. Denies diarrhea and hemoptysis. She reports no relief with Nyquil or Tylenol. She first started having symptoms 09/04. She came to the ER and received steroids with mild relief and went home with steroids and antibiotics. Sats today 89% on presentation. WBC 15.6. D dimer 721. K 3.4. CRP 160. CXR and CTPE shows moderate bilateral pulmonary opacities likely pneumonia, negative for pulmonary embolism. Patient was admitted for further evaluation and treatment. Hospital Course: Patient presented with dyspnea, hypoxia secondary to bilateral Covid pneumonia. Patient required hospitalization. Patient received IV steroids and remdesivir. Her condition improved. CT scan did not reveal any pulmonary embolism. Patient also seen by pulmonology. At discharge patient still requires oxygen. Currently stable on 2 L per nasal cannula. At discharge patient will continue with home oxygen to maintain sats above 93%. At discharge patient will continue with prednisone 20 mg 1 pill twice daily for 7 days then 1 p.o. once daily for 7 days. At discharge a limited supply of Robitussin with codeine will be provided to be used as needed for severe cough up to 3 times a day. At discharge the patient will continue with vitamin C 500 mg 3 times a day, vitamin D 2000 units daily, melatonin 5 mg at bedtime, thiamine 100 mg 1 p.o. twice daily, and zinc 220 mg daily. Patient will also continue with aspirin 81 mg daily. At discharge the patient will continue with incentive spirometer. Recommend and encourage proning/ambulation. At discharge the patient will follow up with pulmonology in 1 week to follow-up his hospitalization. Further adjustment in medication and oxygen will be done by pulmonology. At discharge she will lin nue with CDC guidelines on COVID-19 education, handwashing, facemask use and social distancing. Recommend follow-up with her PCP in 1 week to follow-up hospitalization. Patient with diabetes mellitus type 2 [id number]. At discharge the patient will continue with her Metformin 500 mg daily. Recommend to maintain blood sugar less than 140 fasting and less than 200 after meals. Further adjustment in medication may be required. This can be done with the help of her PCP. Patient with hypertension. At discharge she will continue with lisinopril 10 mg daily. Recommend to maintain blood pressure less than 130/80. Further adjustment can be done by her PCP. Patient with GERD. CT scan revealed mild hiatal hernia. At discharge will recommend to continue Pepcid 20 mg 1 pill twice daily. Education on GERD and hiatal hernia will be provided. Patient may follow-up with GI as an outpatient to further address. Patient with fatty liver. This was noted on CT scan. Education provided. Lifestyle modification education also provided. Vital Signs/Physical Exam: Temp Pulse Resp BP Pulse Ox 97.3 F 57 16 149/88 H 94 09/16/20 08:08 09/16/20 08:08 09/16/20 08:08 09/16/20 08:08 09/16/20 08:08 General: Alert, In no apparent distress, Oriented x3, Cooperative HEENT: Atraumatic Neck: Supple Respiratory: Clear to auscultation bilaterally, Normal air movement Cardiovascular: Normal pulses, Regular rate/rhythm Gastrointestinal: Normal bowel sounds, No masses, No rebound, No guarding Integumentary: No tenderness/swelling, No erythema, No warmth, No cyanosis Neurological: Normal speech, Normal strength at 5/5 x4 extr, Normal tone, Normal affect Laboratory Data at Discharge: WBC 8.00 K/uL (4.3-10.9) D 09/14/20 03:23 Hgb 11.7 g/dL (12.0-15.0) L 09/14/20 03:23 Hct 36.5 % (36.0-45.0) 09/14/20 03:23 Plt Count 268 K/uL (152-406) 09/14/20 03:23 PT 12.4 SECONDS (9.5-12.5) 09/13/20 18:52 INR 1.08 09/13/20 18:52 Sodium 139 mmol/L (136-145) 09/16/20 04:05 Potassium 4.1 mmol/L (3.5-5.1) 09/16/20 04:05 BUN 22 mg/dL (7-18) H 09/16/20 04:05 Creatinine 0.54 mg/dL (0.55-1.3) L 09/16/20 04:05 Glucose 228 mg/dL (74-106) H 09/16/20 04:05 Magnesium 2.3 mg/dL (1.8-2.4) 09/13/20 18:52 Total Bilirubin 0.3 mg/dL (0.2-1.0) 09/14/20 03:23 AST 20 U/L (15-37) 09/14/20 03:23 ALT 21 U/L (12-78) 09/14/20 03:23 Alkaline Phosphatase 114 U/L (45-117) 09/14/20 03:23 Home Medications: Lisinopril [Zestril] 10 mg PO DAILY 09/13/20 Metformin HCl 500 mg PO DAILY 09/13/20 Ascorbic Acid [Vitamin C*] 500 mg PO TID #90 tablet 09/16/20 Aspirin [Aspirin EC 81 MG] 81 mg PO DAILY #90 tablet. 09/16/20 Cholecalciferol (Vitamin D3) [Vitamin D 1000 Iu Tab*] 2,000 unit PO DAILY #60 tab 09/16/20 Famotidine [Pepcid*] 20 mg PO BID #60 tab 09/16/20 Guaifen W/Codeine Syrup [ROBITUSSIN A-C Syrup] 5 ml PO TID PRN #1 bottle 09/16/20 Melatonin 5 mg PO BEDTIME #30 tablet 09/16/20 Thiamine HCl [Vitamin B-1*] 200 mg PO DAILY #60 tablet 09/16/20 Zinc Sulfate [Zinc Sulfate*] 220 mg PO DAILY #30 cap 09/16/20 predniSONE [Prednisone*] 20 mg PO SEECOM #21 tab 09/16/20 New Medications: Aspirin [Aspirin EC 81 MG] 81 mg PO DAILY #90 tablet. Melatonin 5 mg PO BEDTIME #30 tablet Famotidine [Pepcid*] 20 mg PO BID #60 tab predniSONE [Prednisone*] 20 mg PO SEECOM #21 tab Guaifen W/Codeine Syrup [ROBITUSSIN A-C Syrup] 5 ml PO TID PRN #1 bottle PRN Reason: Cough Thiamine HCl [Vitamin B-1*] 200 mg PO DAILY #60 tablet Ascorbic Acid [Vitamin C*] 500 mg PO TID #90 tablet Cholecalciferol (Vitamin D3) [Vitamin D 1000 Iu Tab*] 2,000 unit PO DAILY #60 tab Zinc Sulfate [Zinc Sulfate*] 220 mg PO DAILY #30 cap Physician Discharge Instructions: Patient presented with dyspnea, hypoxia secondary to bilateral Covid pneumonia. Patient required hospitalization. Patient received IV steroids and remdesivir. Her condition improved. CT scan did not reveal any pulmonary embolism. Patient also seen by pulmonology. At discharge patient still requires oxygen. Currently stable on 2 L per nasal cannula. At discharge patient will continue with home oxygen to maintain sats above 93%. At discharge patient will continue with prednisone 20 mg 1 pill twice daily for 7 days then 1 p.o. once daily for 7 days. At discharge a limited supply of Robitussin with codeine will be provided to be used as needed for severe cough up to 3 times a day. At discharge the patient will continue with vitamin C 500 mg 3 times a day, vitamin D 2000 units daily, melatonin 5 mg at bedtime, thiamine 100 mg 1 p.o. twice daily, and zinc 220 mg daily. Patient will also continue with aspirin 81 mg daily. At discharge the patient will continue with incentive spirometer. Recommend and encourage proning/ambulation. At discharge the patient will follow up with pulmonology in 1 week to follow-up his hospitalization. Further adjustment in medication and oxygen will be done by pulmonology. At discharge she will continue with CDC guidelines on COVID-19 education, handwashing, facemask use and social distancing. Recommend follow-up with her PCP in 1 week to follow-up hospitalization. Patient with diabetes mellitus type 2 [id number]. At discharge the patient will continue with her Metformin 500 mg daily. Recommend to maintain blood sugar less than 140 fasting and less than 200 after meals. Further adjustment in medication may be required. This can be done with the help of her PCP. Patient with hypertension. At discharge she will continue with lisinopril 10 mg daily. Recommend to maintain blood pressure less than 130/80. Further adjustment can be done by her PCP. Patient with GERD. CT scan revealed mild hiatal hernia. At discharge will recommend to continue Pepcid 20 mg 1 pill twice daily. Education on GERD and hiatal hernia will be provided. Patient may follow-up with GI as an outpatient to further address. Patient with fatty liver. This was noted on CT scan. Education provided. Lifestyle modification education also provided. Diet: ADA Activity: Ad suzanne Followup: Robert Drummond MD [ACTIVE - CAN ADMIT] - ELPIDIO MAGALLANES [Primary Care Provider] - Time spent managing pt's care (in minutes): 55
[2020-09-16] MEDS: HYDROCODONE/APAP 5/325 MG TAB PO PRN (12:38)
[2020-09-16 13:10] VITALS: BP 135/90; TEMP 97.2
== END 2020-09-16 13:33 | disposition home or self-care (01) | DRG 177 ==
LOC: ER 17:09 → 4TH 22:41
PROVIDERS: ADMIT Internal Medicine Nephrology; ATTEND Family Medicine
PROC: XW033E5 Introduction of Remdesivir Anti-infective into Peripheral Vein, Percutaneous Approach, New Technology Group 5 (ICD-10-PCS; principal; 2020-09-13)
DX: U07.1 COVID-19 (principal); J12.82 Pneumonia due to coronavirus disease 2019; J96.01 Acute respiratory failure with hypoxia; K21.9 Gastro-esophageal reflux disease without esophagitis; K44.9 Diaphragmatic hernia without obstruction or gangrene; E11.9 Type 2 diabetes mellitus without complications; I10 Essential (primary) hypertension; K76.0 Fatty (change of) liver, not elsewhere classified; E66.9 Obesity, unspecified; Z68.37 Body mass index [BMI] 37.0-37.9, adult; Z79.899 Other long term (current) drug therapy; Z79.84 Long term (current) use of oral hypoglycemic drugs; Z90.711 Acquired absence of uterus with remaining cervical stump; Z98.51 Tubal ligation status; Z79.82 Long term (current) use of aspirin; Z79.52 Long term (current) use of systemic steroids
CPT/HCPCS: 36415; 71045; 71275; 80048; 80053; 80076; 81003; 81015; 82728; 82947; 83605; 83735; 83880; 84145; 84484; 85025; 85379; 85610; 86140; 87040; 93005; 94760; 96365; 96375; 99285; J0456; J0696; J1100; J1650; J1940; J2270; J2930; J7050; Q9967; U0003

== ENCOUNTER 2021-06-03 03:22 | Emergency (ER) | payer OTHER ==
--- OUTSIDE RECORDS SUMMARY | 2021-06-03 03:26 | XMS REPORT | Continuity of Care Document ---
:1970 Author Organization [facility] t Address [address] [place] [address] Dr. Alaniz [address] [place] [id number] Care Team Providers Name Role Phone SYSTEM, NOT IN Attending Clinician Unavailable Problems This patient has no known problems. Allergies, Adverse Reactions, Alerts This patient has no known allergies or adverse reactions. Medications This patient has no known medications. Procedures This patient has no known procedures. Encounters Start End Encounter Admission Attending Care Care Encounter Source Date/Time Date/Time Type Type Clinicians Facility Department ID 2021-06-01 Outpatient SYSTEM, [facility] [id number] 08:07:56 PROVIDER Alfred o n Results This patient has no known results.
[2021-06-03] MEDS ORDERED: DIPHENHYDRAMINE 50 MG/ML VIAL ONE (04:04)
[2021-06-03] MEDS ORDERED: NA CHLORIDE 0.9% 1,000 ML ONE (04:04)
[2021-06-03] MEDS ORDERED: NA CHLORIDE 0.9% 500 ML ONE (04:04)
[2021-06-03] MEDS ORDERED: FAMOTIDINE 20 MG/2 ML VIAL IV ONE (04:05)
--- NOTE | 2021-06-03 04:05 | EDPHYS ---
Physician Documentation [facility] Name: Katie Santiago Age: 51 yrs Sex: Female : 1970 Arrival Date: 06/03/2021 Time: 03:36 Bed 20 Private MD: MIKE Physician Jakob Sanches HPI: 06/03 03:58 This 51 yrs old Female presents to ER via Ambulatory with complaints of yadira Abdominal Pain, Itching. 03:58 The patient presents with abdominal pain in the epigastric area, in the upper abdomen. yadira Onset: The symptoms/episode began/occurred 2 day(s) ago. The symptoms do not radiate. Associated signs and symptoms: Pertinent positives: nausea and vomiting, vomiting. The symptoms are described as constant, crampy. Modifying factors: The symptoms are alleviated by nothing, the symptoms are aggravated by nothing. Severity of pain: At its worst the pain was mild in the emergency department the pain is unchanged. The patient has experienced similar episodes in the past, a few times. MEDICAL PARASITOLOGIST: 03:51 LMP N/A - Hysterectomy bb Historical: - Allergies: 03:51 No Known Allergies; bb - Home Meds: 03:51 lisinopril 10 mg Oral tab 1 tab once daily [Active]; Lorazepam Oral [Active]; bb - PMHx: 03:51 Diabetes - NIDDM; Hypertension; bb - PSHx: 03:51 Ligation of fallopian tube; bb - Immunization history:: Adult Immunizations up to date, Client reports receiving the Matty \\T\\ Matty single-dose vaccine. - Social history:: Smoking status: Patient denies any tobacco usage or history of. Patient uses alcohol, occasionally. Patient/guardian denies using street drugs. - Family history:: not pertinent. ROS: 03:58 Constitutional: Negative for fever, chills, and weight loss, Eyes: Negative for injury, yadira pain, redness, and discharge, ENT: Negative for injury, pain, and discharge, Neck: Negative for injury, pain, and swelling, Cardiovascular: Negative for chest pain, palpitations, and edema, Respiratory: Negative for shortness of breath, cough, wheezing, and pleuritic chest pain, Back: Negative for injury and pain, : Negative for injury, bleeding, discharge, and swelling, MS/Extremity: Negative for injury and deformity, Neuro: Negative for headache, weakness, numbness, tingling, and seizure, Psych: Negative for depression, anxiety, suicide ideation, homicidal ideation, and hallucinations, Allergy/Immunology: Negative for hives, rash, and allergies, Endocrine: Negative for neck swelling, polydipsia, polyuria, polyphagia, and marked weight changes. 03:58 Respiratory: Positive for 03:58 Abdomen/GI: Positive for abdominal pain, nausea and vomiting, abdominal cramps, abdominal distension, of the right upper quadrant and left upper quadrant. 03:58 Skin: Positive for rash. Exam: 03:58 Constitutional: This is a well developed, well nourished patient who is awake, alert, yadira and in no acute distress. Head/Face: Normocephalic, atraumatic. Eyes: Pupils equal round and reactive to light, extra-ocular motions intact. Lids and lashes normal. Conjunctiva and sclera are non-icteric and not injected. Cornea within normal limits. Periorbital areas with no swelling, redness, or edema. ENT: Nares patent. No nasal discharge, no septal abnormalities noted. Tympanic membranes are normal and external auditory canals are clear. Oropharynx with no redness, swelling, or masses, exudates, or evidence of obstruction, uvula midline. Mucous membranes moist. Neck: Trachea midline, no thyromegaly or masses palpated, and no cervical lymphadenopathy. Supple, full range of motion without nuchal rigidity, or vertebral point tenderness. No Meningismus. Chest/axilla: Normal chest wall appearance and motion. Nontender with no deformity. No lesions are appreciated. Cardiovascular: Regular rate and rhythm with a normal S1 and S2. No gallops, murmurs, or rubs. Normal PMI, no JVD. No pulse deficits. Respiratory: Lungs have equal breath sounds bilaterally, clear to auscultation and percussion. No rales, rhonchi or wheezes noted. No increased work of breathing, no retractions or nasal flaring. Back: No spinal tenderness. No costovertebral tenderness. Full range of motion. Pelvic Exam: Normal external genitalia. Speculum exam with closed cervical os, no discharge or bleeding noted. Bimanual exam with normal adnexa, no adnexal or cervical motion tenderness. Normal uterus. Female : Normal external genitalia. MS/ Extremity: Pulses equal, no cyanosis. Neurovascular intact. Full, normal range of motion. Neuro: Awake and alert, GCS 15, oriented to person, place, time, and situation. Cranial nerves II-XII grossly intact. Motor strength 5/5 in all extremities. Sensory grossly intact. Cerebellar exam normal. Normal gait. Psych: Awake, alert, with orientation to person, place and time. Behavior, mood, and affect are within normal limits. 03:58 Abdomen/GI: Inspection: distension, that is mild, Bowel sounds: normal, Palpation: mild abdominal tenderness, in the epigastric area, right upper quadrant and left upper quadrant, Liver: no appreciated palpable abnormalities, Hernia: not appreciated. Vital Signs: 03:49 BP 135 / 107; Pulse 107; Resp 18 S; Temp 99(TE); Pulse Ox 100% on R/A; Weight 81.65 kg bb (R); Height 5 ft. 1 in. (154.94 cm) (R); Pain 6/10; 05:39 BP 132 / 92; Pulse 82; Resp 16 S; Pulse Ox 98% on R/A; as6 03:49 Body Mass Index 34.01 (81.65 kg, 154.94 cm) bb MDM: 03:40 Patient medically screened. [facility] 05:06 Differential diagnosis: bowel obstruction, cholecystitis, Cholelithiasis, yadira diverticulitis, gastroesophageal reflux disease, GI Bleed, non-specific abd pain, pancreatitis, Peptic Ulcer Disease, Pyelonephritis, Ureterolithiasis, urinary tract infection. Data reviewed: vital signs, nurses notes, lab test result(s), EKG, radiologic studies, CT scan, plain films. Data interpreted: supervisor maintenance: rate is 99 beats/min, rhythm is regular, Pulse oximetry: on room air is 100 %. Test interpretation: by ED physician or midlevel provider: ECG, plain radiologic studies. Counseling: I had a detailed discussion with the patient and/or guardian regarding: the historical points, exam findings, and any diagnostic results supporting the discharge/admit diagnosis, lab results, radiology results, the need to transfer to another facility, for higher level of care, [facility] does not immediately have the required specialist. 06/03 03:58 Order name: Basic Metabolic Panel; Complete Time: 05:01 [facility] 06/03 03:58 Order name: CBC with Diff; Complete Time: 05:01 yadira 06/03 03:58 Order name: LFT's; Complete Time: 05:01 [facility] 06/03 03:58 Order name: Magnesium; Complete Time: 05:01 [facility] 06/03 03:58 Order name: NT PRO-BNP; Complete Time: 05:01 [facility] 06/03 03:58 Order name: PT-INR; Complete Time: 05:01 [facility] 06/03 03:58 Order name: Troponin (emerg Dept Use Only); Complete Time: 05:01 [facility] 06/03 03:58 Order name: XRAY Chest (1 view) [facility] 06/03 03:58 Order name: CT Abd/Pelvis - IV Contrast Only [facility] 06/03 03:58 Order name: AMMONIA [facility] 06/03 04:33 Order name: COVID-19 SARS RT PCR (Document "Date of Onset" if Symptomatic); Complete mw2 Time: 07:21 06/03 03:58 Order name: EKG; Complete Time: 03:59 [facility] 06/03 03:58 Order name: Cardiac monitoring; Complete Time: 04:10 [facility] 06/03 03:58 Order name: EKG - Nurse/Tech; Complete Time: 04:32 [facility] 06/03 03:58 Order name: IV Saline Lock; Complete Time: 04:10 [facility] 06/03 03:58 Order name: Labs collected and sent; Complete Time: 04:10 [facility] 06/03 03:58 Order name: O2 Per Protocol; Complete Time: 04:11 [facility] 06/03 03:58 Order name: O2 Sat Monitoring; Complete Time: 04:11 [facility] Administered Medications: 05:22 Discontinued: NS 0.9% 1000 ml IV at 125 ml/hr continuous [facility] 04:15 Drug: NS 0.9% 500 ml Route: IV; Rate: bolus; Site: right antecubital; as6 05:24 Follow up: Response: No adverse reaction; IV Status: Completed infusion; IV Intake: as6 500ml 04:15 Drug: NS 0.9% 1000 ml Route: IV; Rate: 125 ml/hr; Site: right antecubital; as6 05:24 Follow up: Response: No adverse reaction; IV Status: Order to discontinue infusion; IV as6 Intake: 50ml 04:16 Drug: Benadryl (diphenhydrAMINE) 25 mg Route: IVP; Site: right antecubital; as6 05:24 Follow up: Response: No adverse reaction as6 04:17 CANCELLED (Physician Discretion): Pepcid (famotidine) 40 mg IVP once; dilute with 10 mL as6 0.9% NaCl; give over 2 minutes 04:17 Drug: Pepcid (famotidine) 20 mg Route: IVP; Site: right antecubital; as6 05:25 Follow up: Response: No adverse reaction as6 05:23 Drug: Meropenem 1 grams Route: IV; Rate: per protocol; Site: right antecubital; as6 06:10 Follow up: Response: No adverse reaction; IV Status: Completed infusion; IV Intake: as6 100ml 05:50 Drug: NS 0.9% with KCl 20 mEq/L 1000 ml Route: IV; Rate: 125 ml/hr; Site: right as6 antecubital; 07:36 Follow up: IV Status: Infusion continued upon transfer ap3 07:36 Drug: Ativan (LORazepam) 1 mg Route: IVP; Site: right antecubital; ap3 07:36 Follow up: Response: No adverse reaction ap3 07:36 Drug: Zofran (Ondansetron) 4 mg Route: IVP; Site: right antecubital; ap3 07:37 Follow up: Response: No adverse reaction ap3 07:36 Drug: Dilaudid (HYDROmorphone) 0.5 mg {Note: RASS0.} Route: IVP; Site: right ap3 antecubital; 07:37 Follow up: Response: No adverse reaction ap3 Disposition Summary: 06/03/21 04:04 Transfer Ordered Transfer Location: [facility] yadira Reason: Higher level of care yadira Condition: Stable yadira Problem: new yadira Symptoms: have improved yadira Accepting Physician: to [facility](06/03/21 07:38) ap3 Diagnosis - Abnormal findings on diagnostic imaging of liver and biliary tract - liver mass yadira - Rash and other nonspecific skin eruption yadira - Unspecified jaundice - obstructive yadira Forms: - Medication Reconciliation Form yadira - SBAR form yadira Signatures: Dispatcher [employer] EDJakob Villafuerte MD MD cha Ballard, Brenda, RN RN bb Lily Onofre RN RN ap3 Gary Garcia RN RN as6 Corrections: (The following items were deleted from the chart) 04:17 03:58 Pepcid (famotidine) 40 mg IVP once; dilute with 10 mL 0.9% NaCl; give over 2 as6 minutes ordered. yadira 05:05 04:04 to [facility] 07:38 05:05 to [facility] ap3
--- NOTE | 2021-06-03 04:05 | ER ---
Nurse's Notes [facility] Name: Katie Santiago Age: 51 yrs Sex: Female : 1970 Arrival Date: 06/03/2021 Time: 03:36 Bed 20 Private MD: Diagnosis: Abnormal findings on diagnostic imaging of liver and biliary tract-liver mass;Rash and other nonspecific skin eruption;Unspecified jaundice-obstructive Presentation: 06/03 03:49 Chief complaint: Patient states: she was diagnosed with a liver mass on and bb now she is having abdominal pain with vomiting, itching all over, can't sleep. Coronavirus screen: At this time, the client does not indicate any symptoms associated with coronavirus-19. Ebola Screen: No symptoms or risks identified at this time. Initial Sepsis Screen: Does the patient meet any 2 criteria? No. Patient's initial sepsis screen is negative. Does the patient have a suspected source of infection? No. Patient's initial sepsis screen is negative. Risk Assessment: Do you want to hurt yourself or someone else? Patient reports no desire to harm self or others. Onset of symptoms is unknown. 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 - Social history:: Smoking status: Patient denies any tobacco usage or history of. Patient uses alcohol, occasionally. Patient/guardian denies using street drugs. - Family history:: not pertinent. Screenin:57 Abuse screen: Denies threats or abuse. Nutritional screening: No deficits noted. as6 Tuberculosis screening: No symptoms or risk factors identified. Fall Risk None identified. Assessment: 03:54 General: Appears in no apparent distress. uncomfortable, ill, Behavior is calm, as6 cooperative. Pain: Complains of pain in generalized. Neuro: Level of Consciousness is awake, alert, obeys commands, Oriented to person, place, time, situation. Cardiovascular: Reports chest pain, shortness of breath, Capillary refill < 3 seconds Patient's skin is warm and dry. Respiratory: Reports shortness of breath Airway is patent Trachea midline Respiratory effort is even, unlabored, Respiratory pattern is regular, symmetrical, Breath sounds are clear bilaterally. GI: Reports constipation, nausea, vomiting. EENT: Sclera/Cornea jaundiced . Derm: Skin is intact, is healthy with good turgor, Skin is jaundiced, Reports itching. 07:37 Reassessment: Patient and/or family updated on plan of care and expected duration. Pain ap3 level reassessed. General: Appears uncomfortable, Behavior is cooperative, anxious. Pain: Complains of pain in generalized body pain, with "internal itching". Neuro: Level of Consciousness is awake, alert, obeys commands, Oriented to person, place, time, situation, Appropriate for age Gait is steady, Speech is normal. Respiratory: Airway is patent. Vital Signs: 03:49 BP 135 / 107; Pulse 107; Resp 18 S; Temp 99(TE); Pulse Ox 100% on R/A; Weight 81.65 kg bb (R); Height 5 ft. 1 in. (154.94 cm) (R); Pain 6/10; 05:39 BP 132 / 92; Pulse 82; Resp 16 S; Pulse Ox 98% on R/A; as6 03:49 Body Mass Index 34.01 (81.65 kg, 154.94 cm) ED Course: 03:36 Patient arrived in ED. wm 03:40 Jakob Sanches MD is Attending Physician. yadira 03:45 Gary Garcia, JULISSA is Primary Nurse. as6 03:51 Triage completed. bb 03:51 Arm band placed on Patient placed in an exam room, on a stretcher, on pulse oximetry. bb 03:57 Placed in gown. Bed in low position. Call light in reach. Side rails up X2. Cardiac as6 monitor on. Pulse ox on. NIBP on. 03:58 Inserted saline lock: 20 gauge in right antecubital area, using aseptic technique. as6 Blood collected. 04:20 XRAY Chest (1 view) In Process Unspecified. EDMS 04:30 initiated a transfer with Germaine from [facility]. mw2 04:40 COVID-19 SARS RT PCR (Document "Date of Onset" if Symptomatic) Sent. as6 05:[address] Sanches with the Director Translation from [facility]. mw2 05:30 CT Abd/Pelvis - IV Contrast Only In Process Unspecified. EDMS 05:43 administrative approval given by Germaine Davila/ patient has been accepted to [facility] mw2 to bed 1042/ Dr. Mccrary accepted the patient in transfer/ report to be called to [phone]. 07:38 No provider procedures requiring assistance completed. Patient transferred, IV remains ap3 in place. Administered Medications: 05:22 Discontinued: NS 0.9% 1000 ml IV at 125 ml/hr continuous yadira 04:15 Drug: NS 0.9% 500 ml Route: IV; Rate: bolus; Site: right antecubital; as6 05:24 Follow up: Response: No adverse reaction; IV Status: Completed infusion; IV Intake: as6 500ml 04:15 Drug: NS 0.9% 1000 ml Route: IV; Rate: 125 ml/hr; Site: right antecubital; as6 05:24 Follow up: Response: No adverse reaction; IV Status: Order to discontinue infusion; IV as6 Intake: 50ml 04:16 Drug: Benadryl (diphenhydrAMINE) 25 mg Route: IVP; Site: right antecubital; as6 05:24 Follow up: Response: No adverse reaction as6 04:17 CANCELLED (Physician Discretion): Pepcid (famotidine) 40 mg IVP once; dilute with 10 mL as6 0.9% NaCl; give over 2 minutes 04:17 Drug: Pepcid (famotidine) 20 mg Route: IVP; Site: right antecubital; as6 05:25 Follow up: Response: No adverse reaction as6 05:23 Drug: Meropenem 1 grams Route: IV; Rate: per protocol; Site: right antecubital; as6 06:10 Follow up: Response: No adverse reaction; IV Status: Completed infusion; IV Intake: as6 100ml 05:50 Drug: NS 0.9% with KCl 20 mEq/L 1000 ml Route: IV; Rate: 125 ml/hr; Site: right as6 antecubital; 07:36 Follow up: IV Status: Infusion continued upon transfer ap3 07:36 Drug: Ativan (LORazepam) 1 mg Route: IVP; Site: right antecubital; ap3 07:36 Follow up: Response: No adverse reaction ap3 07:36 Drug: Zofran (Ondansetron) 4 mg Route: IVP; Site: right antecubital; ap3 07:37 Follow up: Response: No adverse reaction ap3 07:36 Drug: Dilaudid (HYDROmorphone) 0.5 mg {Note: RASS0.} Route: IVP; Site: right ap3 antecubital; 07:37 Follow up: Response: No adverse reaction ap3 Intake: 05:24 IV: 500ml; Total: 500ml. as6 05:24 IV: 50ml; Total: 550ml. as6 06:10 IV: 100ml; Total: 650ml. as6 Outcome: 04:04 ER care complete, transfer ordered by MD. may 07:38 Transferred by ground EMS to [facility]. ap3 07:38 Condition: stable 07:38 Discharge instructions given to patient, significant other, Instructed on the need for transfer, Demonstrated understanding of instructions. 07:38 Patient left the ED. ap3 Signatures: Dispatcher [employer] EDMS Jakob Sanches MD MD cha Ballard, Brenda, RN RN Lily Anna RN RN ap3 Panfilo Dacosta 2 Amna Regalado Ashby, RN RN as6
[2021-06-03 04:27] LABS: Absolute Lymphocytes (CBC) 2.8 K/uL (0.7-4.9); Basophils % 1.1 % (0-1.3); Lymphocytes % 31.1 % (15.3-44.8); MPV 9.2 fL (7.6-11.3); RBC Red Blood Cell Count 5.24 M/uL (3.86-4.86)
[2021-06-03 04:42] LABS: Protime INR 1.19
[2021-06-03 04:45] LABS: ALT/SGPT 62 U/L (12-78); AST/SGOT 58 U/L (15-37); Albumin 3.3 g/dL (3.4-5.0); Alkaline Phosphatase 639 U/L (45-117); BUN Blood Urea Nitrogen 15 mg/dL (7-18); Bicarbonate 24 mmol/L (21-32); Bilirubin Direct 5.8 mg/dL (0-0.2); Glucose Level 149 mg/dL (74-106); NT PRO-BNP 29 pg/mL (<125); Potassium 3.1 mmol/L (3.5-5.1); Protein, Total 8.1 g/dL (6.4-8.2); Sodium Level 137 mmol/L (136-145); Troponin (Emerg Dept Use Only) < 0.02 ng/mL (0.0-0.045)
[2021-06-03 04:47] LABS: Bilirubin Total 6.8 mg/dL (0.2-1.0)
[2021-06-03] MEDS ORDERED: NA CHLORIDE 0.9% 100 ML ONE (04:55)
[2021-06-03] MEDS ORDERED: Meropenem 1000 MG/VIAL IV ONE (04:55)
[2021-06-03] MEDS ORDERED: NS KCL 20MEQ 1,000 ML IV ONE (05:30)
[2021-06-03] MEDS ORDERED: LORazepam 2 MG/ML VIAL ONE (07:28)
[2021-06-03] MEDS ORDERED: HYDROMORPHONE HCL 1 MG/ML INJ ONE (07:29)
[2021-06-03] MEDS ORDERED: ONDANSETRON 4 MG/2 ML VIAL ONE (07:29)
[2021-06-03 07:55] VITALS: TEMP 99
[2021-06-03 07:56] VITALS: BP 132/92; O2SAT 98
--- NOTE | 2021-06-03 09:23 | RAD REPORT ---
EXAM DESCRIPTION: RAD - Chest Single View - 06/03/2021 4:20 am CLINICAL HISTORY: ABDOMINAL DISTENTION COMPARISON: August 2020 TECHNIQUE: AP portable chest image was obtained 06/03/2021 4:20 am . FINDINGS: Lung volumes are low but clear of focal consolidation or mass. There are no alveolar opaci ty seen to suspect acute infectious process. No failure or volume overload. Elevated right hemidiaphr agm again noted. Heart and vasculature are normal. No measurable pleural effusion and no pneumothorax. No acute bony abnormality seen. No acute aortic findings suspected. IMPRESSION: No acute cardiopulmonary process.
--- NOTE | 2021-06-03 11:42 | RAD REPORT ---
EXAM DESCRIPTION: CT - Abdomen Pelvis W Contrast - 06/03/2021 6:51 am CLINICAL HISTORY: ABD PAIN TECHNIQUE: Axial computed tomography images of the abdomen and pelvis with intravenous contrast. S agittal and coronal reformatted images were created and reviewed. This CT exam was performed using one or more of the following dose reduction techniques: automated exposure control, adjustment of t he mA and/or kV according to patient size, and/or use of iterative reconstruction technique. COMPARISON: 05/29/2021 FINDINGS: Limitations: None. Lung bases: No abnormality noted. Pleural space: No abnormality noted. Heart: No abnormality noted. Mediastinum: No abnormality noted. ABDOMEN: Liver: Stable large central hepatic mass and intrahepatic ductal dilatation. Peripherally enha ncing approximate 8 mm more inferior lateral right hepatic lobe nodule is more conspicuous. Now shawn ntified is an approximate 7 mm diameter hypodense nodule in the anterior aspect of the hepatic dome i mage 12. Gallbladder and bile ducts: No abnormality noted. Pancreas: Homogeneous enhancement. No mass, inflammation or ductal dilation. Spleen: No abnormality noted. Adrenals: Visualized portions appear normal. Kidneys and ureters: Homogeneous enhancement. No mass, hydronephrosis or stone. Tiny stones could be obscured by contrast. Stomach and bowel: There is asymmetric prominence of the left lateral wall of the stomach which could be related to incomplete collapse. Moderate colonic stool and scattered diverticulosis. No diverticulitis or obstruction. No visible intestinal mass along for segments of peristaltic change and the presence of stool. PELVIS: Appendix: No findings to suggest acute appendicitis. Bladder: No filling defects to suggest mass or large stone. No inflammation. Reproductive: Stable 1 cm fluid density nodule in the right ovary. No further assessment neede d. ABDOMEN and PELVIS: Intraperitoneal space: No free air. No significant fluid collection. Bones/joints: No acute change noted. Soft tissues: Small fat containing bilateral inguinal hernias. Vasculature: No abdominal aortic aneurysm. Lymph nodes: Stable adenopathy in the gastrohepatic ligament and along the right diaphragmatic c alona at the GE junction. IMPRESSION: 1. Hepatic masses in intrahepatic biliary dilatation as above. 2. Stable upper abdominal adenopathy. 3. Asymmetric gastric wall thickening could be related to collapse. Consider further assessment t o exclude mass. Electronically signed by: Nela Lerner MD 06/03/2021 5:57 AM PICTURE FRAME MAKER Due to temporary technical issues with the PACS/Fluency reporting system, reports are being signed by the in house radiologist without review as a courtesy to ensure prompt reporting. The interpreting r adiologist is fully responsible for the content of the report.
--- NOTE | 2021-06-03 12:26 | EKG ---
Test Date: 2021-06-03 Test Time: 04:22:25 Cancer Researcher: ISA MEASUREMENT RESULTS: Intervals: Rate: 86 [place]: 154 QRSD: 82 QT: 400 QTc: 478 [place]: P: 36 [place]: 154 QRS: -12 T: 24 INTERPRETIVE STATEMENTS: Normal sinus rhythm Normal ECG Compared to ECG 09/13/2020 18:21:23 No significant changes Electronically Signed On 06-03-21 12:25:39 QUANTITATIVE RESEARCH ANALYST by Ignacio Cisneros
== END 2021-06-03 07:38 | disposition short-term general hospital (02) ==
LOC: ER 03:22
DX: R93.2 Abnormal findings on diagnostic imaging of liver and biliary tract (principal); K83.1 Obstruction of bile duct; R16.0 Hepatomegaly, not elsewhere classified; R21 Rash and other nonspecific skin eruption; I10 Essential (primary) hypertension; E11.9 Type 2 diabetes mellitus without complications; Z20.822 Contact with and (suspected) exposure to COVID-19
CPT/HCPCS: 93005; 85025; 80048; 36415; 82140; 83735; 85610; 80076; 84484; 83880; 74177; 71045; U0003; Q9967; J1200; J2185; J1170; J7040; J7030; J2405; J3480; 96361; 96365; 96375; 99285

== ENCOUNTER 2021-07-06 22:11 | Emergency (ER) | payer OTHER ==
--- OUTSIDE RECORDS SUMMARY | 2021-07-06 22:14 | XMS REPORT | Clinical Summary ---
:[address] [facility] MD [facility] Address [address] [place] [address] Care Team Providers Name Role Phone Melanie Nuñez Unavailable Allergies Not on File Medications Not on file Active Problems Not on file Encounters Date Type Specialty Care Team Description 06/09/2021 Ancillary Procedure Radiology Cancer 06/09/2021 Ancillary Procedure Radiology Cancer 06/09/2021 Ancillary Procedure Radiology Cancer after 07/06/2020 Social History Tobacco Use Types Packs/Day Years Used Date Never Assessed Sex Assigned at Date Recorded Not on file Last Filed Vital Signs Not on file Plan of Treatment Not on file Procedures Procedure Name Priority Date/Time Associated Diagnosis Comme nts OSI CHEST Routine 06/03/2021 11:15 AM Cancer Results for this FLOOR PERSON procedure are i n the results section. OSI CT ABDOMEN AND Routine 06/03/2021 11:12 AM Cancer Re sults for this PELVIS FLOOR PERSON procedure are i n the results section. OSI CT ABDOMEN AND Routine 05/29/2021 11:15 AM Cancer Re sults for this PELVIS FLOOR PERSON procedure are i n the results section. after 07/06/2020 Results OSI Chest (06/03/2021 11:15 AM FLOOR PERSON) Specimen Narrative Systemgenerated, Documentation - 11:15 AM FLOOR PERSON Study acquired at another institution. For comparison only. No MD Sanches originated interpretation requested or a vailable. OSI CT Abdomen and Pelvis (06/03/2021 11:12 AM FLOOR PERSON)Only the most recent of2 resultswithin the time period is included. Specimen Narrative Systemgenerated, Documentation - 12/20/2 021 11:12 AM FLOOR PERSON Study acquired at another institution. For comparison only. No MD Sanches originated interpretation requested or a vailable. after 07/06/2020 Insurance Payer Benefit Plan / Subscriber ID Effective Dates Phone Addre ss Type Group [employer] MANAGED A[employer] O [id number] 2018-Esteban JEAN PIERRE PIPER X [id number] [place] [address] Care Teams Plate Maker Zinc Relationship Specialty Start Date End Date Melanie Nuñez PCP - External Referring Family Practice 05/30/[address] [place] [address] [id number]
--- OUTSIDE RECORDS SUMMARY | 2021-07-06 22:17 | XMS REPORT | Continuity of Care Document ---
:1970 Author Organization [facility] t Address [address] [place] [address] Care Team Providers Name Role Phone SYSTEM, NOT IN Attending Clinician Unavailable TORI Attending Clinician Unavailable TOYA POOL Attending Clinician Unavailable Braxton WEBER Admitting Clinician Unavailable Payers Payer Name Policy Type Policy Number Effective Date Expiration Date S ourcurtis AETNA HMO POS [id number] 2018 QPOS 00:00:00 AETNA MANAGED [id number] 2018 MD Sanches CAREAETNA 00:00:00 [id number] 02/2019-Present[id number] [address]OZP Problems This patient has no known problems. Allergies, Adverse Reactions, Alerts Allergy Allergy Status Severity Reaction(s) Onset Inactive Treating Comm ents Source Name Type Date Date Clinician NO KNOWN Allergy Active [facility] ALLERGIE S Social History Social Habit Start Date Stop Date Quantity Comments Source Sex Assigned At [birth year] MD Sanches 00:00:00 00:00:00 Medications This patient has no known medications. Vital Signs Vital Name Observation Time Observation Value Comments Source WEIGHT 2021-06-22 07:34:00 73.4 kg HEIGHT 2021-06-03 09:09:00 154.9 cm WEIGHT 2021-06-03 09:09:00 81.6 kg WEIGHT 2021-06-22 07:34:00 73.4 kg HEIGHT 2021-06-03 09:09:00 154.9 cm WEIGHT 2021-06-03 09:09:00 81.6 kg Procedures Procedure Date / Time Performed Performing Clinician Maria E barrios OSI CHEST 2021-06-03 17:15:00 Jakob Snaches MD OSI CT ABDOMEN AND PELVIS 2021-06-03 17:12:00 Jakob Sanches MD OSI CT ABDOMEN AND PELVIS 2021-05-29 17:15:00 Jakob Sanches MD Encounters Start End Encounter Admission Attending Care Care Encounter Source Date/Time Date/Time Type Type Clinicians Facility Department ID 2021-06-11 Inpatient [facility] Surgery [id number] [facility] 09:54:45 2021-06-01 [id number]:07:56 PROVIDER Alfred abarca 2021-06-03 2021-06-26 [facility] [id number] [facility] 08:45:00 11:07:00 DENG Med 2021-06-09 2021-06-09 Outpatient [facility] MDA [id number] 11:11:21 11:11:21 Alfredgonzalez abarca 2021-06-09 2021-06-09 Outpatient EL MDA MDA [id number] 11:11:11 11:11:11 Alfred abarca 2021-06-09 2021-06-09 Outpatient MDA MDA [id number] 11:11:08 11:11:08 Alfred abarca Results Test Description Test Time Test Comments Results Result Comments Source SARS-COV2/RT-PCR ([facility]) 2021-06-26 17:53:52 Test Item Value Reference Range Interpretation Comme nts SARS-COV2/RT-PCR (test code = 9694397) Negative Negative Negative result for this test determines that SARS-CoV-2 RNA was not present in the specimen above the Limit of Detection (LOD). However, Negative results do not preclude SARS-CoV-2 infection and should not be used as the sole basis for treatment or patient management decisions. Negative results must be combined with clinical observations, patient history, and epidemiological information. A false negative result may occur if a specimen is improperly collected, transported, or handled. A false negative result should be considered if patient's recent exposures or clinical presentation indicate that COVID-19 (SARS-CoV-2) is likely and diagnostic tests for other causes of illness are negative. Re-testing should be considered in cases of suspected false negatives.The limit of detection for this assay is 100 copies/mL.This SARS-CoV-2 test is a real-time RT_PCR test intended for the qualitative detection of nucleic acid from SARS-CoV-2 in a nasopharyngeal swab specimen collected from individuals suspected of COVID-19 by their healthcare provider.This test has not been Food and Drug Administration (FDA) cleared or approved. This is a modified version of an approved Emergency Use Authorization (EUA) and is in the process of review by the FDA. Once authorized by the FDA, the issued EUA will be e ffective until the declaration that circumstances exist justifying the authorization of the emergency use of in vitro diagnostic tests for detection and/or diagnosis of COVID-19 is terminated under Section 564(b)(2) of the Act or the EUA is revoked under Section 564(g) of the Act.Testing was performedusing the Rosado SARS-CoV-2 assay.Fact Sheet for Healthcare Providers:https://www.Seabags.rosado/fabien/RT SARS-CoV-2 HCP Fact Sheet 51- 479375.pdfFact Sheet for Healthcare Patients:https://www.molecular.rosado/fabien/RT SARS-CoV-2 Patient Fact Sheet EN 51-556132X0.pdfPOCT-GLUCOSE [id number] 08:25:03 Test Item Value Reference Range Interpretation Comments POC-GLUCOSE METER 101 mg/dL 70-110 : TESTED A T [facility] [address] (BEAKER) (test code = [address] [place], 1538) [address]: Nicker/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 ID = [id number] for EMMIE JOHNSON BASIC METABOLIC [id number] 06:11:31 Test Item Value Reference Range Interpretation Comments SODIUM (BEAKER) 134 meq/L 136-145 L (test code = 381) POTASSIUM (BEAKER) 3.3 meq/L 3.5-5.1 L (test code = 379) CHLORIDE (BEAKER) 95 meq/L 98-107 L (test code = 382) CO2 (BEAKER) (test 29 meq/L 22-29 code = 355) BLOOD UREA NITROGEN 12 mg/dL 7-21 (BEAKER) (test code = 354) CREATININE (BEAKER) 0.81 mg/dL 0.57-1.25 (test code = 358) GLUCOSE RANDOM 97 mg/dL 70-105 (BEAKER) (test code = 652) CALCIUM (BEAKER) 9.2 mg/dL 8.4-10.2 (test code = 697) EGFR (BEAKER) (test 75 mL/min/1.73 ESTIMA GIDEON GFR IS code = 1092) sq m NOT ACCURATE CREATININE CLEARANCE IN PREDICTING GLOMERULAR FILTRATION RATE . ESTIMATED GFR I S NOT APPLICABLE FOR DIALYSIS PATIEN TS. Nicker ID - PERCY WSpecimen slightly [id number] 06:11:30 Test Item Value Reference Range Interpretation Comments MAGNESIUM (BEAKER) (test code = 1.9 mg/dL 1.6-2.6 627) Nicker ID Darian GREER [id number] 06:11:30 Test Item Value Reference Range Interpretation Comments PHOSPHORUS (BEAKER) (test code = 2.4 mg/dL 2.3-4.7 604) Nicker ID - PERCY WCALCIUM, [id number] 05:41:30 Test Item Value Reference Range Interpretation Comments CALCIUM IONIZED (BEAKER) (test 1.07 mmol/L 1.12-1.27 L code = 698) PH, BLOOD (BEAKER) (test code = 7.40 1810) CBC W/PLT COUNT & AUTO [id number] 05:27:48 Test Item Value Reference Range Interpretation Comments WHITE BLOOD CELL COUNT (BEAKER) 9.8 K/ L 3.5-10.5 (test code = 775) RED BLOOD CELL COUNT (BEAKER) 4.92 M/ L 3.93-5.22 (test code = 761) HEMOGLOBIN (BEAKER) (test code = 13.4 GM/DL 11.2-15.7 410) HEMATOCRIT (BEAKER) (test code = 42.5 % 34.1-44.9 411) MEAN CORPUSCULAR VOLUME (BEAKER) 86.4 fL 79.4-94.8 (test code = 753) MEAN CORPUSCULAR HEMOGLOBIN 27.2 pg 25.6-32.2 (BEAKER) (test code = 751) MEAN CORPUSCULAR HEMOGLOBIN CONC 31.5 GM/DL 32.2-35.5 L (BEAKER) (test code = 752) RED CELL DISTRIBUTION WIDTH 14.5 % 11.7-14.4 H (BEAKER) (test code = 412) PLATELET COUNT (BEAKER) (test 380 K/CU MM 150-450 code = 756) MEAN PLATELET VOLUME (BEAKER) 10.2 fL 9.4-12.3 (test code = 754) NUCLEATED RED BLOOD CELLS 0 /100 WBC 0-0 (BEAKER) (test code = 413) NEUTROPHILS RELATIVE PERCENT 64 % (BEAKER) (test code = 429) LYMPHOCYTES RELATIVE PERCENT 26 % (BEAKER) (test code = 430) MONOCYTES RELATIVE PERCENT 7 % (BEAKER) (test code = 431) EOSINOPHILS RELATIVE PERCENT 2 % (BEAKER) (test code = 432) BASOPHILS RELATIVE PERCENT 1 % (BEAKER) (test code = 437) NEUTROPHILS ABSOLUTE COUNT 6.21 K/ L 1.56-6.13 H (BEAKER) (test code = 670) LYMPHOCYTES ABSOLUTE COUNT 2.54 K/ L 1.18-3.74 (BEAKER) (test code = 414) MONOCYTES ABSOLUTE COUNT (BEAKER) 0.73 K/ L 0.24-0.36 H (test code = 415) EOSINOPHILS ABSOLUTE COUNT 0.20 K/ L 0.04-0.36 (BEAKER) (test code = 416) BASOPHILS ABSOLUTE COUNT (BEAKER) 0.07 K/ L 0.01-0.08 (test code = 417) IMMATURE GRANULOCYTES-RELATIVE 1 % 0-1 PERCENT (BEAKER) (test code = 2801) POCT-GLUCOSE [id number] 21:29:40 Test Item Value Reference Range Interpretation Comments POC-GLUCOSE METER 93 mg/dL 70-110 : TESTED A T [facility] [address] (BEAKER) (test code = [address] [place], [address]38) [address]: Nicker/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 ID = [id number] for OBI UREÑA POCT-GLUCOSE [id number] 16:38:43 Test Item Value Reference Range Interpretation Comments POC-GLUCOSE METER 133 mg/dL 70-110 H : TESTED A T [facility] [address] (BEAKER) (test code = [address] [place], [address]38) [address]: Nicker/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 ID = [id number] for JOHN BEGUM RAD, ABDOMEN/KUB, 1 VIEW [id number] 15:23:00Reason for exam:- >constipationReason for exam:->fecal impaction [facility] 1970 Sex: FFINAL REPORT RAD, ABDOMEN/KUB, 1 VIEW AP CLINICAL INDICATION: con stipationfecal impaction COMPARISON: 06/22/2021 TECHNIQUE: Single, frontal radiograph of the abdomen. FINDINGS:Transhepatic biliary drainage catheters present. The bowel gas pattern is nonspecific, butnonobstructive. Large stool burden persists. Evaluation for free air is limited by portable supinetechnique. Within these limitations, no free air is identified. Signed: Shantal Seo Verified Date/Time: 06/25/2021 15:23:29 POCT-GLUCOSE [id number] 12:17:33 Test Item Value Reference Range Interpretation Comments POC-GLUCOSE METER 138 mg/dL 70-110 H : TESTED A T [facility] [address] (Sicubo) (test code = [address] [facility], 1538) [address]: Nicker/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 ID = [id number] for GILLES WILDA POCT-GLUCOSE [id number] 08:08:33 Test Item Value Reference Range Interpretation Comments POC-GLUCOSE METER 168 mg/dL 70-110 H : TESTED A T [facility] [address] (Sicubo) (test code = [address] [facility], 1538) [address]: Nicker/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 ID = [id number] for WILDA CAMPOVERDE CALCIUM, [id number] 07:29:58 Test Item Value Reference Range Interpretation Comments CALCIUM IONIZED (BEAKER) (test 1.05 mmol/L 1.12-1.27 L code = 698) PH, BLOOD (BEAKER) (test code = 7.42 1810) [id number] 07:03:18 Test Item Value Reference Range Interpretation Comments PHOSPHORUS (BEAKER) (test code = 2.3 mg/dL 2.3-4.7 604) Nicker ID - SARAH MCOMPREHENSIVE METABOLIC [id number] 07:03:18 Test Item Value Reference Range Interpretation Comments TOTAL PROTEIN 7.0 gm/dL 6.0-8.3 (BEAKER) (test code = 770) ALBUMIN (BEAKER) 3.5 g/dL 3.5-5.0 (test code = 1145) ALKALINE PHOSPHATASE 214 U/L 40-150 H (BEAKER) (test code = 346) BILIRUBIN TOTAL 3.6 mg/dL 0.2-1.2 H (BEAKER) (test code = 377) SODIUM (BEAKER) (test 136 meq/L 136-145 code = 381) POTASSIUM (BEAKER) 3.0 meq/L 3.5-5.1 L (test code = 379) CHLORIDE (BEAKER) 95 meq/L 98-107 L (test code = 382) CO2 (BEAKER) (test 29 meq/L 22-29 code = 355) BLOOD UREA NITROGEN 29 mg/dL 7-21 H (BEAKER) (test code = 354) CREATININE (BEAKER) 1.13 mg/dL 0.57-1.25 (test code = 358) GLUCOSE RANDOM 114 mg/dL 70-105 H (BEAKER) (test code = 652) CALCIUM (BEAKER) 9.0 mg/dL 8.4-10.2 (test code = 697) AST (SGOT) (BEAKER) 73 U/L 5-34 H (test code = 353) ALT (SGPT) (BEAKER) 47 U/L 6-55 (test code = 347) EGFR (BEAKER) (test 51 mL/min/1.73 ESTIMA GIDEON GFR IS code = 1092) sq m NOT ACCURATE CREATININE CLEARANCE IN PREDICTING GLOMERULAR FILTRATION RATE . ESTIMATED GFR I S NOT APPLICABLE FOR DIALYSIS PATIEN TS. Nicker ID - SARAH MSpecimen slightly [id number] 07:03:17 Test Item Value Reference Range Interpretation Comments MAGNESIUM (BEAKER) (test code = 2.3 mg/dL 1.6-2.6 627) Nicker ID - SARAH MCBC W/PLT COUNT & AUTO [id number] 06:39:40 Test Item Value Reference Range Interpretation Comments WHITE BLOOD CELL COUNT (BEAKER) 11.6 K/ L 3.5-10.5 H (test code = 775) RED BLOOD CELL COUNT (BEAKER) 4.67 M/ L 3.93-5.22 (test code = 761) HEMOGLOBIN (BEAKER) (test code = 12.8 GM/DL 11.2-15.7 410) HEMATOCRIT (BEAKER) (test code = 39.5 % 34.1-44.9 411) MEAN CORPUSCULAR VOLUME (BEAKER) 84.6 fL 79.4-94.8 (test code = 753) MEAN CORPUSCULAR HEMOGLOBIN 27.4 pg 25.6-32.2 (BEAKER) (test code = 751) MEAN CORPUSCULAR HEMOGLOBIN CONC 32.4 GM/DL 32.2-35.5 (BEAKER) (test code = 752) RED CELL DISTRIBUTION WIDTH 14.6 % 11.7-14.4 H (BEAKER) (test code = 412) PLATELET COUNT (BEAKER) (test 394 K/CU MM 150-450 code = 756) MEAN PLATELET VOLUME (BEAKER) 10.3 fL 9.4-12.3 (test code = 754) NUCLEATED RED BLOOD CELLS 0 /100 WBC 0-0 (BEAKER) (test code = 413) NEUTROPHILS RELATIVE PERCENT 75 % (BEAKER) (test code = 429) LYMPHOCYTES RELATIVE PERCENT 16 % (BEAKER) (test code = 430) MONOCYTES RELATIVE PERCENT 8 % (BEAKER) (test code = 431) EOSINOPHILS RELATIVE PERCENT 1 % (BEAKER) (test code = 432) BASOPHILS RELATIVE PERCENT 0 % (BEAKER) (test code = 437) NEUTROPHILS ABSOLUTE COUNT 8.63 K/ L 1.56-6.13 H (BEAKER) (test code = 670) LYMPHOCYTES ABSOLUTE COUNT 1.83 K/ L 1.18-3.74 (BEAKER) (test code = 414) MONOCYTES ABSOLUTE COUNT (BEAKER) 0.93 K/ L 0.24-0.36 H (test code = 415) EOSINOPHILS ABSOLUTE COUNT 0.11 K/ L 0.04-0.36 (BEAKER) (test code = 416) BASOPHILS ABSOLUTE COUNT (BEAKER) 0.04 K/ L 0.01-0.08 (test code = 417) IMMATURE GRANULOCYTES-RELATIVE 1 % 0-1 PERCENT (BEAKER) (test code = 2801) POCT-GLUCOSE [id number] 21:13:40 Test Item Value Reference Range Interpretation Comments POC-GLUCOSE METER 134 mg/dL 70-110 H : TESTED A T [facility] [address] (BEAKER) (test code = [address] [place], [address]) [address]: Nicker/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 ID = [id number] for OBI YING BASIC METABOLIC [id number] 12:42:19 Test Item Value Reference Range Interpretation Comments SODIUM (BEAKER) 133 meq/L 136-145 L (test code = 381) POTASSIUM (BEAKER) 3.5 meq/L 3.5-5.1 (test code = 379) CHLORIDE (BEAKER) 92 meq/L 98-107 L (test code = 382) CO2 (BEAKER) (test 28 meq/L 22-29 code = 355) BLOOD UREA NITROGEN 51 mg/dL 7-21 H (BEAKER) (test code = 354) CREATININE (BEAKER) 2.37 mg/dL 0.57-1.25 H (test code = 358) GLUCOSE RANDOM 215 mg/dL 70-105 H (BEAKER) (test code = 652) CALCIUM (BEAKER) 9.7 mg/dL 8.4-10.2 (test code = 697) EGFR (BEAKER) (test 22 mL/min/1.73 ESTIMA GIDEON GFR IS code = 1092) sq m NOT ACCURATE CREATININE CLEARANCE IN PREDICTING GLOMERULAR FILTRATION RATE . ESTIMATED GFR I S NOT APPLICABLE FOR DIALYSIS PATIEN TS. Nicker ID - SARAH MSpecimen slightly ictericCALCIUM, [id number] 12:26:54 Test Item Value Reference Range Interpretation Comments CALCIUM IONIZED (BEAKER) (test 1.05 mmol/L 1.12-1.27 L code = 698) PH, BLOOD (BEAKER) (test code = 7.42 1810) POCT-GLUCOSE [id number] 11:34:52 Test Item Value Reference Range Interpretation Comments POC-GLUCOSE METER 208 mg/dL 70-110 H : TESTED A T [facility] [address] (BEAKER) (test code = [address] [place], [address]) [address]: Nicker/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 ID = [id number] for Ambika bird (pca2)Berenice URIC [id number] 10:43:33 Test Item Value Reference Range Interpretation Comments URIC ACID (BEAKER) 13.6 mg/dL 2.6-7.2 H Specimen slightly (test code = 773) hemolyzed Nicker ID - SARAH MSpecimen slightly ictericPROTEIN, RANDOM [id number] 09:25:49 Test Item Value Reference Range Interpretation Comments PROTEIN, URINE (BEAKER) (test code = 44 mg/dL 0-14 H 1569) Nicker ID - SARAH MCREATININE, RANDOM [id number] 09:24:08 Test Item Value Reference Range Interpretation Comments CREATININE URINE (BEAKER) (test 88.9 mg/dL code = 375) Reference Range: No NormalsOperator ID - SARAH MSODIUM, RANDOM [id number] 09:24:08 Test Item Value Reference Range Interpretation Comments SODIUM URINE (BEAKER) (test code = 65 meq/L 243) Reference Range: No NormalsOperator ID - SARAH MURINALYSIS W/ MICROSCOPIC 2021-06-24 09:00:44 Test Item Value Reference Range Interpretation Comments COLOR (BEAKER) (test code = 470) Yellow CLARITY (BEAKER) (test code = 469) Hazy SPECIFIC GRAVITY UA (BEAKER) (test 1.015 1.001-1.035 code = 468) PH UA (BEAKER) (test code = 467) 5.5 5.0-8.0 PROTEIN UA (BEAKER) (test code = 50 mg/dL Negative A 464) GLUCOSE UA (BEAKER) (test code = Negative Negative 365) KETONES UA (BEAKER) (test code = Negative Negative 371) BILIRUBIN UA (BEAKER) (test code = Positive Negative A 462) BLOOD UA (BEAKER) (test code = Trace Negative A 461) NITRITE UA (BEAKER) (test code = Negative Negative 465) LEUKOCYTE ESTERASE UA (BEAKER) Trace Negative A (test code = 466) UROBILINOGEN UA (BEAKER) (test 0.2 mg/dL 0.2-1.0 code = 463) RBC UA (BEAKER) (test code = 519) 1 /HPF WBC UA (BEAKER) (test code = 520) 11 /HPF BACTERIA (BEAKER) (test code = Many 517) MUCUS (BEAKER) (test code = 1574) Rare SQUAMOUS EPITHELIAL (BEAKER) (test 19 /HPF code = 516) HYALINE CASTS (BEAKER) (test code 5 /LPF = 514) CASTS (BEAKER) (test code = 1579) 23 /LPF CRYSTALS, URINE (BEAKER) (test Occasional code = 1521) YEAST (BEAKER) (test code = 1585) Rare SOURCE(BEAKER) (test code = 2795) Nicker ID - [auto]Nicker ID - [auto]Nicker ID - techCOMPREHENSIVE METABOLIC [id number] 06:05:44 Test Item Value Reference Range Interpretation Comments TOTAL PROTEIN 7.8 gm/dL 6.0-8.3 Specimen sligh tly (BEAKER) (test code = hemoly zed 770) ALBUMIN (BEAKER) 3.6 g/dL 3.5-5.0 Specimen sl ightly (test code = 1145) hemolyzed ALKALINE PHOSPHATASE 217 U/L 40-150 H (BEAKER) (test code = 346) BILIRUBIN TOTAL 3.9 mg/dL 0.2-1.2 H Specimen sli ghtly (BEAKER) (test code = hemoly zed 377) SODIUM (BEAKER) (test 134 meq/L 136-145 L code = 381) POTASSIUM (BEAKER) 4.2 meq/L 3.5-5.1 Specimen slightly (test code = 379) hemolyzed CHLORIDE (BEAKER) 91 meq/L 98-107 L (test code = 382) CO2 (BEAKER) (test 28 meq/L 22-29 code = 355) BLOOD UREA NITROGEN 62 mg/dL 7-21 H (BEAKER) (test code = 354) CREATININE (BEAKER) 3.33 mg/dL 0.57-1.25 H Specimen slightly (test code = 358) hemolyzed GLUCOSE RANDOM 192 mg/dL 70-105 H (BEAKER) (test code = 652) CALCIUM (BEAKER) 9.3 mg/dL 8.4-10.2 (test code = 697) AST (SGOT) (BEAKER) 105 U/L 5-34 H Specimen slightly (test code = 353) hemolyzed ALT (SGPT) (BEAKER) 64 U/L 6-55 H Specimen slightly (test code = 347) hemolyzed EGFR (BEAKER) (test 15 mL/min/1.73 ESTIMA GIDEON GFR IS code = 1092) sq m NOT ACCURATE CREATININE CLEARANCE IN PREDICTING GLOMERULAR FILTRATION RATE . ESTIMATED GFR I S NOT APPLICABLE FOR DIALYSIS PATIEN TS. Nicker ID - SARAH MSpecimen slightly [id number] 05:53:00 Test Item Value Reference Range Interpretation Comments PHOSPHORUS (BEAKER) 7.0 mg/dL 2.3-4.7 H Specimen slightly (test code = 604) hemolyzed Nicker ID - SARAH MCREATINE KINASE (CK)2021-06-24 05:53:00 Test Item Value Reference Range Interpretation Comments CREATINE KINASE TOTAL (BEAKER) (test 23 U/L 29-200 L code = 380) Nicker ID - SARAH [id number] 05:52:59 Test Item Value Reference Range Interpretation Comments MAGNESIUM (BEAKER) 2.8 mg/dL 1.6-2.6 H Specimen slightly (test code = 627) hemolyzed Nicker ID - SARAH MB-TYPE NATRIURETIC FACTOR (BNP)2021-06-24 05:50:35 Test Item Value Reference Range Interpretation Comments B-TYPE NATRIURETIC PEPTIDE (BEAKER) 19 pg/mL 0-100 (test code = 700) Nicker ID - SARAH MCBC W/PLT COUNT & AUTO [id number] 05:45:34 Test Item Value Reference Range Interpretation Comments WHITE BLOOD CELL COUNT (BEAKER) 14.7 K/ L 3.5-10.5 H (test code = 775) RED BLOOD CELL COUNT (BEAKER) 4.87 M/ L 3.93-5.22 (test code = 761) HEMOGLOBIN (BEAKER) (test code = 13.4 GM/DL 11.2-15.7 410) HEMATOCRIT (BEAKER) (test code = 41.6 % 34.1-44.9 411) MEAN CORPUSCULAR VOLUME (BEAKER) 85.4 fL 79.4-94.8 (test code = 753) MEAN CORPUSCULAR HEMOGLOBIN 27.5 pg 25.6-32.2 (BEAKER) (test code = 751) MEAN CORPUSCULAR HEMOGLOBIN CONC 32.2 GM/DL 32.2-35.5 (BEAKER) (test code = 752) RED CELL DISTRIBUTION WIDTH 14.8 % 11.7-14.4 H (BEAKER) (test code = 412) PLATELET COUNT (BEAKER) (test 486 K/CU MM 150-450 H code = 756) MEAN PLATELET VOLUME (BEAKER) 10.1 fL 9.4-12.3 (test code = 754) NUCLEATED RED BLOOD CELLS 0 /100 WBC 0-0 (BEAKER) (test code = 413) NEUTROPHILS RELATIVE PERCENT 84 % (BEAKER) (test code = 429) LYMPHOCYTES RELATIVE PERCENT 8 % (BEAKER) (test code = 430) MONOCYTES RELATIVE PERCENT 7 % (BEAKER) (test code = 431) EOSINOPHILS RELATIVE PERCENT 0 % (BEAKER) (test code = 432) BASOPHILS RELATIVE PERCENT 0 % (BEAKER) (test code = 437) NEUTROPHILS ABSOLUTE COUNT 12.35 K/ L 1.56-6.13 H (BEAKER) (test code = 670) LYMPHOCYTES ABSOLUTE COUNT 1.18 K/ L 1.18-3.74 (BEAKER) (test code = 414) MONOCYTES ABSOLUTE COUNT (BEAKER) 1.00 K/ L 0.24-0.36 H (test code = 415) EOSINOPHILS ABSOLUTE COUNT 0.03 K/ L 0.04-0.36 L (BEAKER) (test code = 416) BASOPHILS ABSOLUTE COUNT (BEAKER) 0.04 K/ L 0.01-0.08 (test code = 417) IMMATURE GRANULOCYTES-RELATIVE 1 % 0-1 PERCENT (BEAKER) (test code = 2801) CALCIUM, [id number] 05:24:45 Test Item Value Reference Range Interpretation Comments CALCIUM IONIZED (BEAKER) (test 1.04 mmol/L 1.12-1.27 L code = 698) PH, BLOOD (BEAKER) (test code = 7.40 1810) POCT-GLUCOSE [id number] 21:35:49 Test Item Value Reference Range Interpretation Comments POC-GLUCOSE METER 225 mg/dL 70-110 H : TESTED A T [facility] [address] (BEAKER) (test code = [address] [place], 1538) [address]: Nicker/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 ID = [id number] for OBI YING BASIC METABOLIC [id number] 20:23:04 Test Item Value Reference Range Interpretation Comments SODIUM (BEAKER) 135 meq/L 136-145 L (test code = 381) POTASSIUM (BEAKER) 4.0 meq/L 3.5-5.1 (test code = 379) CHLORIDE (BEAKER) 87 meq/L 98-107 L (test code = 382) CO2 (BEAKER) (test 29 meq/L 22-29 code = 355) BLOOD UREA NITROGEN 59 mg/dL 7-21 H (BEAKER) (test code = 354) CREATININE (BEAKER) 4.43 mg/dL 0.57-1.25 H (test code = 358) GLUCOSE RANDOM 155 mg/dL 70-105 H (BEAKER) (test code = 652) CALCIUM (BEAKER) 9.4 mg/dL 8.4-10.2 (test code = 697) EGFR (BEAKER) (test 10 mL/min/1.73 ESTIMA GIDEON GFR IS code = 1092) sq m NOT ACCURATE CREATININE CLEARANCE IN PREDICTING GLOMERULAR FILTRATION RATE . ESTIMATED GFR I S NOT APPLICABLE FOR DIALYSIS PATIEN TS. Nicker ID - ADMINSpecimen slightly ictericRAD, CHEST, 1 VIEW, NON DEPT 2021-06-23 19:17:00Reason for exam:->Evaluate for edemaShould this be performed at the bedside?->YesIs the patient ?->No [facility] ZAVALETA : 1970 Sex: FFINAL REPORT TECHNIQUE: Frontal view of the chest. INDICATION: Cary luate for edema COMPARISON:07/30/2011 DISCUSSION:Limited evaluation due to portable technique. Lines and hardware: NoneHeart and mediastinum: Stable.Lungs and pleura: No focal airspace consolidation. No pleural effusion. No pneumothorax. Right hemidiaphragm elevation is noted.Soft tissues and bones: No acute abnormality. IMPRESSION:Negative for acute intrathoracic process. Signed: Nehemias Billy MDReportVerified Date/Time: 06/23/2021 19:17:09 Reading Location: [facility] [place], [id number] 17:33:00Unlisted Reason for Exam - Click Yes and Enter Reason Below->NoIs this for enterography?->NoWill this procedure require oral contrast?->Yes [facility] : 1970 Sex: FFINAL REPORT ABDOMINAL AND PELVIS CT DATED 06/23/2021 COMPARISON: CT of the chest dated June 09, 2021 CLINICAL INFORMATION: Abdominal distension TECHNIQUE: Axialimages of the abdomen and pelvis were obtained from diaphragm to the pubic symphysis without GI or intravenous contrast. This exam was performed according to our departmental dose-optimization program, which includes automated exposure control, adjustment of the mA and/or kV according to patient sizeand/or use of interactive reconstruction technique. COMMENT: Liver is enlarged measuring 21 cm in the right mid clavicular line. Spleen is normal in size. A 7.6 x 8.4 cm hypodense mass is seen in the segment 4 and the segment 8 of the liver. Gallbladder is contracted. No gallstone or biliary dilatation is noted. There is interval placement of a transhepatic biliary drainage catheter. Pancreas and adrenals are unremarkable. Both kidneys are normal in size. No hydronephrosis, hydroureter, urolithiasis is seen. Diverticular disease is seen in the large bowel without diverticulitis. The small bowel and appendix are normal in caliber. Uterus is surgically absent. The urinary bladder is contracted. Noadenopathy or ascites is present. IMPRESSION: 1. Hepatomegaly with hypodense mass in the segment 4 and segment 8 of liver.2. Diverticulosis without diverticulitis. Signed: Armando Peacock Verified Date/Time: 06/23/2021 17:33:14 Reading Location: [address] Body Reading Room POCT-GLUCOSE [id number] 17:19:07 Test Item Value Reference Range Interpretation Comments POC-GLUCOSE METER 202 mg/dL 70-110 H : Notified RN/MD: (ROBYN) (test code = TESTED AT [place] [id number] 1538) [facility], [address]: Nicker/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 ID = [id number] for EMMIE JOHNSON POCT-GLUCOSE [id number] 11:38:31 Test Item Value Reference Range Interpretation Comments POC-GLUCOSE METER 162 mg/dL 70-110 H : [facility] T [facility] (test code = [facility], 1538) [address]: Nicker/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 ID = [id number] for MA RTIN, CHIJACQUELYN [id number] 08:23:13 Test Item Value Reference Range Interpretation Comments PHOSPHORUS (ROBYN) (test code = 9.1 mg/dL 2.3-4.7 604) Nicker ID - SARAH Velascotor ID - PIAYA LPOCT-GLUCOSE [id number] 07:41:52 Test Item Value Reference Range Interpretation Comments POC-GLUCOSE METER 135 mg/dL 70-110 H : TESTED A T [facility] 6720 (BEAKER) (test code = K[place], 1538) [address]: Nicker/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 ID = [id number] for EMMIE JOHNSON BASIC METABOLIC [id number] 06:26:37 Test Item Value Reference Range Interpretation Comments SODIUM (BEAKER) 132 meq/L 136-145 L (test code = 381) POTASSIUM (BEAKER) 4.4 meq/L 3.5-5.1 (test code = 379) CHLORIDE (BEAKER) 86 meq/L 98-107 L (test code = 382) CO2 (BEAKER) (test 26 meq/L 22-29 code = 355) BLOOD UREA NITROGEN 51 mg/dL 7-21 H (BEAKER) (test code = 354) CREATININE (BEAKER) 3.28 mg/dL 0.57-1.25 H (test code = 358) GLUCOSE RANDOM 153 mg/dL 70-105 H (BEAKER) (test code = 652) CALCIUM (BEAKER) 10.5 mg/dL 8.4-10.2 H (test code = 697) EGFR (BEAKER) (test 15 mL/min/1.73 ESTIMA GIDEON GFR IS code = 1092) sq m NOT ACCURATE CREATININE CLEARANCE IN PREDICTING GLOMERULAR FILTRATION RATE . ESTIMATED GFR I S NOT APPLICABLE FOR DIALYSIS PATIEN TS. Nicker ID - SARAH MSpecimen slightly [id number] 06:08:01 Test Item Value Reference Range Interpretation Comments MAGNESIUM (BEAKER) (test code = 2.9 mg/dL 1.6-2.6 H 627) Nicker ID - SARAH MCALCIUM, [id number] 04:58:45 Test Item Value Reference Range Interpretation Comments CALCIUM IONIZED (BEAKER) (test 1.08 mmol/L 1.12-1.27 L code = 698) PH, BLOOD (BEAKER) (test code = 7.40 1810) CBC W/PLT COUNT & AUTO [id number] 04:56:59 Test Item Value Reference Range Interpretation Comments WHITE BLOOD CELL COUNT (BEAKER) 14.0 K/ L 3.5-10.5 H (test code = 775) RED BLOOD CELL COUNT (BEAKER) 5.61 M/ L 3.93-5.22 H (test code = 761) HEMOGLOBIN (BEAKER) (test code = 15.5 GM/DL 11.2-15.7 410) HEMATOCRIT (BEAKER) (test code = 47.5 % 34.1-44.9 H 411) MEAN CORPUSCULAR VOLUME (BEAKER) 84.7 fL 79.4-94.8 (test code = 753) MEAN CORPUSCULAR HEMOGLOBIN 27.6 pg 25.6-32.2 (BEAKER) (test code = 751) MEAN CORPUSCULAR HEMOGLOBIN CONC 32.6 GM/DL 32.2-35.5 (BEAKER) (test code = 752) RED CELL DISTRIBUTION WIDTH 14.8 % 11.7-14.4 H (BEAKER) (test code = 412) PLATELET COUNT (BEAKER) (test 644 K/CU MM 150-450 H code = 756) MEAN PLATELET VOLUME (BEAKER) 10.0 fL 9.4-12.3 (test code = 754) NUCLEATED RED BLOOD CELLS 0 /100 WBC 0-0 (BEAKER) (test code = 413) NEUTROPHILS RELATIVE PERCENT 82 % (BEAKER) (test code = 429) LYMPHOCYTES RELATIVE PERCENT 11 % (BEAKER) (test code = 430) MONOCYTES RELATIVE PERCENT 6 % (BEAKER) (test code = 431) EOSINOPHILS RELATIVE PERCENT 0 % (BEAKER) (test code = 432) BASOPHILS RELATIVE PERCENT 1 % (BEAKER) (test code = 437) NEUTROPHILS ABSOLUTE COUNT 11.48 K/ L 1.56-6.13 H (BEAKER) (test code = 670) LYMPHOCYTES ABSOLUTE COUNT 1.54 K/ L 1.18-3.74 (BEAKER) (test code = 414) MONOCYTES ABSOLUTE COUNT (BEAKER) 0.81 K/ L 0.24-0.36 H (test code = 415) EOSINOPHILS ABSOLUTE COUNT 0.03 K/ L 0.04-0.36 L (BEAKER) (test code = 416) BASOPHILS ABSOLUTE COUNT (BEAKER) 0.07 K/ L 0.01-0.08 (test code = 417) IMMATURE GRANULOCYTES-RELATIVE 1 % 0-1 PERCENT (BEAKER) (test code = 2801) POCT-GLUCOSE [id number] 21:26:27 Test Item Value Reference Range Interpretation Comments POC-GLUCOSE METER 157 mg/dL 70-110 H : TESTED A T [facility] (ROBYN) (test code = KENYA Mcmullen [facility], 1538) [address]: Nicker/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 ID = [id number] for Ghanshyam Russell POCT-GLUCOSE [id number] 17:30:42 Test Item Value Reference Range Interpretation Comments POC-GLUCOSE METER 165 mg/dL 70-110 H : Notified RN/MD: TESTED (ROBYN) (test code AT [facility] [address] = 1538) [facility], [address]: Nicker/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 ID = [id number] for Sing h, Harprempreet RAD, ABDOMEN/KUB, 1 VIEW [id number] 13:47:00Reason for exam:->constipation [facility] 1970 Sex: FFINAL REPORT TECHNIQUE: One view of the abdomen. INDICATION: 51-year- old woman with constipation. COMPARISON: Abdomen radiographs 06/20/2021. IMPRESSION:Unchanged internal/external biliary drain and plastic biliary stent. Nonobstructive bowel gas pattern. No significant change in moderate amount stool in the colon. Otherwise, no significant change in the abdomen since 06/20/2021. Signed: Mala Meekseport Verified Date/Time: 06/22/2021 13:47:18 Reading Location: [facility] C013Y ND Body Reading Room POCT-GLUCOSE [id number] 06:59:39 Test Item Value Reference Range Interpretation Comments POC-GLUCOSE METER 114 mg/dL 70-110 H : TESTED A T [facility] 6720 (BEAKER) (test code = [facility], 1538) [address]: Nicker/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 ID = [id number] for JOHN BEGUM POCT-GLUCOSE [id number] 21:18:48 Test Item Value Reference Range Interpretation Comments POC-GLUCOSE METER 164 mg/dL 70-110 H : TESTED A T [facility] 6720 (BEAKER) (test code = [facility], 1538) [address]: Nicker/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 ID = [id number] for Ghanshyam Russell POCT-GLUCOSE [id number] 17:34:49 Test Item Value Reference Range Interpretation Comments POC-GLUCOSE METER 155 mg/dL 70-110 H : TESTED A T [facility] 6720 (BEAKER) (test code = [facility], 1538) [address]: Nicker/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 ID = [id number] for MARIE JAE EMMIE HEPATIC FUNCTION [id number] 13:37:53 Test Item Value Reference Range Interpretation Comments TOTAL PROTEIN (BEAKER) 9.5 gm/dL 6.0-8.3 H Speci men moderately (test code = 770) hemolyzed ALBUMIN (BEAKER) (test 4.3 g/dL 3.5-5.0 Speci men moderately code = 1145) hemolyzed BILIRUBIN TOTAL 5.4 mg/dL 0.2-1.2 H Specimen mod erately (BEAKER) (test code = hemoly zed 377) BILIRUBIN DIRECT 3.7 mg/dL 0.1-0.5 H Specimen mo derately (BEAKER) (test code = hemoly zed 706) ALKALINE PHOSPHATASE 283 U/L 40-150 H (BEAKER) (test code = 346) AST (SGOT) (BEAKER) 98 U/L 5-34 H Specimen moderately (test code = 353) hemolyzed ALT (SGPT) (BEAKER) 68 U/L 6-55 H Specimen moderately (test code = 347) hemolyzed Nicker ID - SARAH MSpecimen slightly ictericBASIC METABOLIC [id number] 13:37:52 Test Item Value Reference Range Interpretation Comments SODIUM (BEAKER) 133 meq/L 136-145 L (test code = 381) POTASSIUM (BEAKER) 4.8 meq/L 3.5-5.1 Specimen moderately (test code = 379) hemolyzed CHLORIDE (BEAKER) 88 meq/L 98-107 L (test code = 382) CO2 (BEAKER) (test 27 meq/L 22-29 code = 355) BLOOD UREA NITROGEN 35 mg/dL 7-21 H (BEAKER) (test code = 354) CREATININE (BEAKER) 1.31 mg/dL 0.57-1.25 H Specimen moderately (test code = 358) hemolyzed GLUCOSE RANDOM 138 mg/dL 70-105 H (BEAKER) (test code = 652) CALCIUM (BEAKER) 10.9 mg/dL 8.4-10.2 H (test code = 697) EGFR (BEAKER) (test 43 mL/min/1.73 ESTIMA GIDEON GFR IS code = 1092) sq m NOT ACCURATE CREATININE CLEARANCE IN PREDICTING GLOMERULAR FILTRATION RATE . ESTIMATED GFR I S NOT APPLICABLE FOR DIALYSIS PATIEN TS. Nicker ID - SARAH MSpecimen slightly ictericCBC W/PLT COUNT & AUTO [id number] 13:21:42 Test Item Value Reference Range Interpretation Comments WHITE BLOOD CELL COUNT (BEAKER) 13.3 K/ L 3.5-10.5 H (test code = 775) RED BLOOD CELL COUNT (BEAKER) 5.45 M/ L 3.93-5.22 H (test code = 761) HEMOGLOBIN (BEAKER) (test code = 14.9 GM/DL 11.2-15.7 410) HEMATOCRIT (BEAKER) (test code = 44.6 % 34.1-44.9 411) MEAN CORPUSCULAR VOLUME (BEAKER) 81.8 fL 79.4-94.8 (test code = 753) MEAN CORPUSCULAR HEMOGLOBIN 27.3 pg 25.6-32.2 (BEAKER) (test code = 751) MEAN CORPUSCULAR HEMOGLOBIN CONC 33.4 GM/DL 32.2-35.5 (BEAKER) (test code = 752) RED CELL DISTRIBUTION WIDTH 14.9 % 11.7-14.4 H (BEAKER) (test code = 412) PLATELET COUNT (BEAKER) (test 598 K/CU MM 150-450 H code = 756) MEAN PLATELET VOLUME (BEAKER) 10.7 fL 9.4-12.3 (test code = 754) NUCLEATED RED BLOOD CELLS 0 /100 WBC 0-0 (BEAKER) (test code = 413) NEUTROPHILS RELATIVE PERCENT 75 % (BEAKER) (test code = 429) LYMPHOCYTES RELATIVE PERCENT 17 % (BEAKER) (test code = 430) MONOCYTES RELATIVE PERCENT 7 % (BEAKER) (test code = 431) EOSINOPHILS RELATIVE PERCENT 1 % (BEAKER) (test code = 432) BASOPHILS RELATIVE PERCENT 1 % (BEAKER) (test code = 437) NEUTROPHILS ABSOLUTE COUNT 9.97 K/ L 1.56-6.13 H (BEAKER) (test code = 670) LYMPHOCYTES ABSOLUTE COUNT 2.20 K/ L 1.18-3.74 (BEAKER) (test code = 414) MONOCYTES ABSOLUTE COUNT (BEAKER) 0.87 K/ L 0.24-0.36 H (test code = 415) EOSINOPHILS ABSOLUTE COUNT 0.11 K/ L 0.04-0.36 (BEAKER) (test code = 416) BASOPHILS ABSOLUTE COUNT (BEAKER) 0.10 K/ L 0.01-0.08 H (test code = 417) IMMATURE GRANULOCYTES-RELATIVE 0 % 0-1 PERCENT (BEAKER) (test code = 2801) POCT-GLUCOSE [id number] 12:27:38 Test Item Value Reference Range Interpretation Comments POC-GLUCOSE METER 145 mg/dL 70-110 H : TESTED A T [facility] 6720 (BEAKER) (test code = [facility], [facility]) [address]: Nicker/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 ID = [id number] for MA RTIN, CHIJACQUELYN POCT-GLUCOSE [id number] 07:47:30 Test Item Value Reference Range Interpretation Comments POC-GLUCOSE METER 103 mg/dL 70-110 : TESTED A T [facility] 6720 (BEAKER) (test code = [facility], 1538) [address]: Nicker/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 ID = [id number] for MA RTIN, CHIANNA POCT-GLUCOSE [id number] 21:11:18 Test Item Value Reference Range Interpretation Comments POC-GLUCOSE METER 137 mg/dL 70-110 H : TESTED A T [facility] 6720 (BEAKER) (test code = [facility], 1538) [address]: Nicker/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 ID = [id number] for SHYLA KRAUS POCT-GLUCOSE [id number] 17:18:01 Test Item Value Reference Range Interpretation Comments POC-GLUCOSE METER 102 mg/dL 70-110 : TESTED A T [facility] 6720 (BEAKER) (test code = KENYA Mcmullen [place], 1538) [address]: Nicker/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 ID = [id number] for EMMIE JOHNSON POCT-GLUCOSE [id number] 08:06:40 Test Item Value Reference Range Interpretation Comments POC-GLUCOSE METER 143 mg/dL 70-110 H : TESTED A T [facility] 6720 (BEAKER) (test code = [facility] R [facility], 1538) [address]: Nicker/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 ID = [id number] for Ambika bird (pca2)Berenice, ABDOMEN/KUB, 1 VIEW [id number] 02:19:00Reason for exam:- >vomittingShould this be performed at the bedside?->Yes [facility] 1970 Sex: FFINAL REPORT CLINICAL HISTORY: Vomiting COMPARISON: None. FINDINGS: 2 supine images of the abdomen are submitted. The abdominal bowel gas pattern is nonspecific but grossly unobstructed. There is no focus of dilated, gas-filled large or small bowel. Enteric contrastis in normal caliber large intestine to the level of the descending colon. The right hemidiaphragm is mildly elevated. A percutaneous internal/external biliary drain and adjacent plastic common bile duct stent are in place. Surgical clips overlie the lower abdomen. There is no acute bony abnormality. Signed: Madi Terrazaseport Verified Date/Time: 06/20/2021 02:19:16 POCT-GLUCOSE [id number] 21:50:55 Test Item Value Reference Range Interpretation Comments POC-GLUCOSE METER 119 mg/dL 70-110 H : TESTED A T [facility] 6720 (BEAKER) (test code = [facility] Benedict [facility], 1538) [address]: Nicker/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 ID = [id number] for Sharri chiang (pca2)Delphine a POCT-GLUCOSE [id number] 16:42:04 Test Item Value Reference Range Interpretation Comments POC-GLUCOSE METER 127 mg/dL 70-110 H : TESTED A T [facility] 6720 (BEAKER) (test code = KENYA Mcmullen [facility], 1538) [address]: Nicker/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 ID = [id number] for Juliane Salinaslon POCT-GLUCOSE [id number] 11:28:57 Test Item Value Reference Range Interpretation Comments POC-GLUCOSE METER 145 mg/dL 70-110 H : TESTED A T [facility] 6720 (BEAKER) (test code = [facility] Benedict [facility], 1538) [address]: Nicker/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 ID = [id number] for Juliane Salinaslon SARS-COV2/RT-PCR ([facility])2021-06-19 11:06:55 Test Item Value Reference Range Interpretation Comments SARS-COV2/RT-PCR (test code = Negative Negative [id number]) Negative result for this test determines that SARS-CoV-2 RNA was not present in the specimen above the Limit of Detection (LOD). However, Negative results do not preclude SARS-CoV-2 infection and should not be used as the sole basis for treatment or patient management decisions. Negative results must be combined with clinical observations, patient history, and epidemiological information. A false negative result may occur if a specimen is improperly collected, transported, or handled. A false negative result should be considered if patient's recent exposures or clinical presentation indicate that COVID-19 (SARS-CoV-2) is likely and diagnostic tests for other causes of illness are negative. Re-testing should be considered in cases of suspected false negatives.The limit of detection for this assay is 100 copies/mL.This SARS-CoV-2 test is a real-time RT_PCR test intended for the qualitative detection of nucleic acid from SARS-CoV-2 in a nasopharyngeal swab specimen collected from individuals suspected of COVID-19 by their healthcare provider.This test has not been Food and Drug Administration (FDA) cleared or approved. This is a modified version of an approved Emergency Use Authorization (EUA) and is in the process of review by the FDA. Once authorized by the FDA, the issued EUA will be effective until the declaration that circumstances exist justifying the authorization of the emergency use of in vitro diagnostic tests for detection and/or diagnosis of COVID-19 is terminated under Section 564(b)(2) of the Act or the EUA is revoked under Section 564(g) of the Act.Testing was performedusing the Rosado SARS-CoV-2 assay.Fact Sheet for Healthcare Providers:https://www.molecular.rosado/fabien/RT SARS-CoV-2 HCP Fact Sheet 51- 929912.pdfFact Sheet for Healthcare Patients:https://www.molecular.rosado/fabien/RT SARS-CoV-2 Patient Fact Sheet EN 51-506446E2.pdfPOCT-GLUCOSE [id number] 08:11:15 Test Item Value Reference Range Interpretation Comments POC-GLUCOSE METER 134 mg/dL 70-110 H : TESTED Melo T [facility] 6720 (BEAKER) (test code = PETELORENZO Mcmullen [facility], 1538) [address]: Nicker/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 ID = [id number] for Do Parth elizabeth HEPATIC FUNCTION [id number] 05:11:12 Test Item Value Reference Range Interpretation Comments TOTAL PROTEIN (BEAKER) (test code = 8.0 gm/dL 6.0-8.3 770) ALBUMIN (BEAKER) (test code = 1145) 3.8 g/dL 3.5-5.0 BILIRUBIN TOTAL (BEAKER) (test code 5.0 mg/dL 0.2-1.2 H = 377) BILIRUBIN DIRECT (BEAKER) (test 4.1 mg/dL 0.1-0.5 H code = 706) ALKALINE PHOSPHATASE (BEAKER) (test 237 U/L 40-150 H code = 346) AST (SGOT) (BEAKER) (test code = 57 U/L 5-34 H 353) ALT (SGPT) (BEAKER) (test code = 42 U/L 6-55 347) Nicker ID - JM Cespedes slightly ictericPOCT-GLUCOSE [id number] 21:42:26 Test Item Value Reference Range Interpretation Comments POC-GLUCOSE METER 115 mg/dL 70-110 H : TESTED A T [facility] 6720 (BEAKER) (test code = [facility], 1538) [address]: Nicker/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 ID = [id number] for LOULOU GRANT POCT-GLUCOSE [id number] 17:31:40 Test Item Value Reference Range Interpretation Comments POC-GLUCOSE METER 122 mg/dL 70-110 H : TESTED A T [facility] 6720 (BEAKER) (test code = [facility], 1538) [address]: Nicker/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 ID = [id number] for SISSY LLMILO, TRAVISNEKA POCT-GLUCOSE [id number] 11:54:32 Test Item Value Reference Range Interpretation Comments POC-GLUCOSE METER 157 mg/dL 70-110 H : TESTED A T [facility] 6720 (BEAKER) (test code = [facility], 1538) [address]: Nicker/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 ID = [id number] for WI DUC, TRAVISNEKA POCT-GLUCOSE [id number] 07:59:19 Test Item Value Reference Range Interpretation Comments POC-GLUCOSE METER 135 mg/dL 70-110 H : TESTED A T [facility] 6720 (BEAKER) (test code = [facility], 1538) [address]: Nicker/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 ID = [id number] for [place] LLIAMS, TYNEKA HEPATIC FUNCTION [id number] 05:55:43 Test Item Value Reference Range Interpretation Comments TOTAL PROTEIN (BEAKER) (test code = 7.7 gm/dL 6.0-8.3 770) ALBUMIN (BEAKER) (test code = 1145) 3.7 g/dL 3.5-5.0 BILIRUBIN TOTAL (BEAKER) (test code 4.8 mg/dL 0.2-1.2 H = 377) BILIRUBIN DIRECT (BEAKER) (test 3.8 mg/dL 0.1-0.5 H code = 706) ALKALINE PHOSPHATASE (BEAKER) (test 232 U/L 40-150 H code = 346) AST (SGOT) (BEAKER) (test code = 46 U/L 5-34 H 353) ALT (SGPT) (BEAKER) (test code = 37 U/L 6-55 347) Nicker ID - JM Paradasee slightly ictericPOCT-GLUCOSE [id number] 21:05:46 Test Item Value Reference Range Interpretation Comments POC-GLUCOSE METER 154 mg/dL 70-110 H : TESTED A T [facility] 67[address] (BEAKER) (test code [facility], = 1538) [address]: Nicker/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 ID = [id number] for Nilton blackburn (contract)Medardo POCT-GLUCOSE [id number] 17:49:03 Test Item Value Reference Range Interpretation Comments POC-GLUCOSE METER 161 mg/dL 70-110 H : TESTED A T [facility] 6720 (BEAKER) (test code = KENYA Mcmullen [facility], 1538) [address]: Nicker/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 ID = [id number] for Adelaida Martinez HEPATIC FUNCTION [id number] 07:21:13 Test Item Value Reference Range Interpretation Comments TOTAL PROTEIN (BEAKER) (test code = 7.6 gm/dL 6.0-8.3 770) ALBUMIN (BEAKER) (test code = 1145) 3.7 g/dL 3.5-5.0 BILIRUBIN TOTAL (BEAKER) (test code 5.3 mg/dL 0.2-1.2 H = 377) BILIRUBIN DIRECT (BEAKER) (test 4.2 mg/dL 0.1-0.5 H code = 706) ALKALINE PHOSPHATASE (BEAKER) (test 251 U/L 40-150 H code = 346) AST (SGOT) (BEAKER) (test code = 46 U/L 5-34 H 353) ALT (SGPT) (BEAKER) (test code = 33 U/L 6-55 347) Nicker ID - JM EATONmonika moderately ictericPOCT-GLUCOSE [id number] 20:52:43 Test Item Value Reference Range Interpretation Comments POC-GLUCOSE METER 136 mg/dL 70-110 H : Notified RN/MD: (BEAKER) (test code = TESTED AT [facility] 67[address] 1538) [place], [address]: Nicker/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 ID = [id number] for Toshia Saucedo POCT-GLUCOSE [id number] 17:42:10 Test Item Value Reference Range Interpretation Comments POC-GLUCOSE METER 160 mg/dL 70-110 H : TESTED A T [facility] [address] (BEAKER) (test code = KENYA Mcmullen [facility], 1538) [address]: Nicker/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 ID = [id number] for MIHIR DIAZ BASIC METABOLIC [id number] 17:03:54 Test Item Value Reference Range Interpretation Comments SODIUM (BEAKER) 134 meq/L 136-145 L (test code = 381) POTASSIUM (BEAKER) 3.6 meq/L 3.5-5.1 (test code = 379) CHLORIDE (BEAKER) 96 meq/L 98-107 L (test code = 382) CO2 (BEAKER) (test 25 meq/L 22-29 code = 355) BLOOD UREA NITROGEN 15 mg/dL 7-21 (BEAKER) (test code = 354) CREATININE (BEAKER) 0.64 mg/dL 0.57-1.25 (test code = 358) GLUCOSE RANDOM 139 mg/dL 70-105 H (BEAKER) (test code = 652) CALCIUM (BEAKER) 9.9 mg/dL 8.4-10.2 (test code = 697) EGFR (BEAKER) (test 98 mL/min/1.73 ESTIMA GIDEON GFR IS code = 1092) sq m NOT ACCURATE CREATININE CLEARANCE IN PREDICTING GLOMERULAR FILTRATION RATE . ESTIMATED GFR I S NOT APPLICABLE FOR DIALYSIS PATIEN TS. Nicker ID - FSESpecimen moderately ictericTISSUE [id number] 14:51:42 Surgical Pathology Report Case: [id number] Authorizing Provider: Jessica Espinoza Collected: 06/12/2021 05:40 PM MD Meme OrderingLocation: [address] Received: 06/12/2021 09:22 PM Service Pathologist: Ofe Luciano MD Specimen: Liver LIVER, BIOPSY:- ADENOCARCINOMA- SEE COMMENT Signing Pathologist Direct Phone Line: [phone] signedby Ofe Luciano MD on 06/16/2021 at 2:51 PMPreliminary result electronically signed by Ofe Luciano MD on 06/13/2021 at 12:37 PMThe histologic features of the biopsy show a confluence proliferation of malignant glandular cells that are strongly positive for CK7 and pancytokeratin, and negative for CK20 immunohistochemical stains. Additionally a TTF-1, synaptophysin, chromogranin are negative. 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 The findings may represent cholangiocarcinoma provided breast primary is excluded clinically.The findings were relayed to Dr. Jessica Espinoza via [employer] on 06/16/2021 at [phone], 68030, 57767 x 5Enlarged liver massLiverReceived in formalin labeled with the patient's name, MRN and liver, biopsy. The specimen is a fulton core needle biopsy measuring 1.4 cm in length by 0.1 cm in diameter. The specimen is filtered and submitted in toto in A1.EL Wayne (ASCP)PerformedThe interpretation of this case included the use of immunohistochemistry or special stains.Control Slides Examined: In-house known positive controls were evaluated along with the test tissue. These control slides run alongside of the patients sample show appropriate staining. Internal positive and negative controls when available are evaluated Immunohistochemistry technical testing was performed at [facility], Pathology Laboratory where it was developed and its performance characteristics were determined. It has not been cleared or approved by the U.S. Food and Drug Administration. The FDA has determined that such clearance or approval is not necessary. The test is used for clinical pur poses. It should not be regarded as investigational or for research. This laboratory is certified under the Clinical Laboratory Improvement Amendments of 1988 (CLIA-88) as qualified to perform high complexity clinical laboratory testing.[facility], Department of Pathology, [address] [place] [address], [facility], [address] [place] [address], [facility], Department of Pathology, [address] [place] [address], VIRR-GLUCOSE [id number] 12:14:31 Test Item Value Reference Range Interpretation Comments POC-GLUCOSE METER 150 mg/dL 70-110 H : TESTED A T [facility] 6720 (BEAKER) (test code = [facility], 153) [address]: Nicker/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 ID = [id number] for MIHIR DIAZ ANTI-MITOCHONDRIAL AB, REFLEX TO [id number] 11:22:59 Test Item Value Reference Range Interpretation Comments SCAN RESULT (test code = 8697886) POCT-GLUCOSE [id number] 07:29:28 Test Item Value Reference Range Interpretation Comments POC-GLUCOSE METER 124 mg/dL 70-110 H : TESTED A T [facility] 6720 (BEAKER) (test code = [facility], 153) [address]: Nicker/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 ID = [id number] for MIHIR DIAZ HEPATIC FUNCTION [id number] 06:32:25 Test Item Value Reference Range Interpretation Comments TOTAL PROTEIN (BEAKER) (test code = 7.6 gm/dL 6.0-8.3 770) ALBUMIN (BEAKER) (test code = 1145) 3.7 g/dL 3.5-5.0 BILIRUBIN TOTAL (BEAKER) (test code 5.5 mg/dL 0.2-1.2 H = 377) BILIRUBIN DIRECT (BEAKER) (test 4.4 mg/dL 0.1-0.5 H code = 706) ALKALINE PHOSPHATASE (BEAKER) (test 264 U/L 40-150 H code = 346) AST (SGOT) (BEAKER) (test code = 51 U/L 5-34 H 353) ALT (SGPT) (BEAKER) (test code = 35 U/L 6-55 347) Nicker ID - DBSpecimen moderately ictericPOCT-GLUCOSE [id number] 21:12:07 Test Item Value Reference Range Interpretation Comments POC-GLUCOSE METER 148 mg/dL 70-110 H : TESTED A T [facility] 6720 (BEAKER) (test code = [facility], 1538) 737[address]: Nicker/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 ID = [id number] for JUAN HAND SE POCT-GLUCOSE [id number] 17:03:44 Test Item Value Reference Range Interpretation Comments POC-GLUCOSE METER 123 mg/dL 70-110 H : TESTED A T [facility] 67[address] (BEAKER) (test code = [facility], 1538) [address]23[address]: Nicker/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 ID = [id number] for Do Juliane elizabethlon POCT-GLUCOSE [id number] 11:52:32 Test Item Value Reference Range Interpretation Comments POC-GLUCOSE METER 143 mg/dL 70-110 H : TESTED A T [facility] 67[address] (BEAKER) (test code = [facility], 1538) 57598: Nicker/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 ID = [id number] for Do glenn Parth POCT-GLUCOSE [id number] 08:02:23 Test Item Value Reference Range Interpretation Comments POC-GLUCOSE METER 140 mg/dL 70-110 H : TESTED A T [facility] 6720 (BEAKER) (test code = [facility], 1538) 684[address]: Nicker/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 ID = [id number] for Do Juliane elizabethlon HEPATIC FUNCTION [id number] 05:08:28 Test Item Value Reference Range Interpretation Comments TOTAL PROTEIN (BEAKER) (test code = 7.2 gm/dL 6.0-8.3 770) ALBUMIN (BEAKER) (test code = 1145) 3.5 g/dL 3.5-5.0 BILIRUBIN TOTAL (BEAKER) (test code 4.9 mg/dL 0.2-1.2 H = 377) BILIRUBIN DIRECT (BEAKER) (test 4.0 mg/dL 0.1-0.5 H code = 706) ALKALINE PHOSPHATASE (BEAKER) (test 274 U/L 40-150 H code = 346) AST (SGOT) (BEAKER) (test code = 49 U/L 5-34 H 353) ALT (SGPT) (BEAKER) (test code = 34 U/L 6-55 347) Nicker ID - DBSpecimen moderately ictericPOCT-GLUCOSE [id number] 21:09:08 Test Item Value Reference Range Interpretation Comments POC-GLUCOSE METER 127 mg/dL 70-110 H : TESTED A T [facility] 6720 (BEAKER) (test code = [facility], 1538) 67102: Nicker/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 ID = [id number] for MO SE, JUAN POCT-GLUCOSE [id number] 16:45:22 Test Item Value Reference Range Interpretation Comments POC-GLUCOSE METER 138 mg/dL 70-110 H : TESTED A T [facility] 6720 (BEAKER) (test code = [facility], [facility]) 68092: Nicker/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 ID = [id number] for ZA VALA, ERANDY POCT-GLUCOSE [id number] 11:38:28 Test Item Value Reference Range Interpretation Comments POC-GLUCOSE METER 182 mg/dL 70-110 H : TESTED A T [facility] 6720 (BEAKER) (test code = [facility], [facility]) 88275: Nicker/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 ID = [id number] for ZA VALA, ERANDY POCT-GLUCOSE [id number] 07:48:25 Test Item Value Reference Range Interpretation Comments POC-GLUCOSE METER 93 mg/dL 70-110 : TESTED A T [facility] 6720 (BEAKER) (test code = [facility], [facility]) 84577: Nicker/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 ID = [id number] for ZAVA LA, ERANDY POCT-GLUCOSE [id number] 21:21:25 Test Item Value Reference Range Interpretation Comments POC-GLUCOSE METER 119 mg/dL 70-110 H : TESTED A T [facility] 6720 (BEAKER) (test code = [facility], [facility]) 08390: Nicker/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 ID = [id number] for MO SE, JUAN POCT-GLUCOSE [id number] 20:18:07 Test Item Value Reference Range Interpretation Comments POC-GLUCOSE METER 94 mg/dL 70-110 : TESTED A T [facility] 6720 (BEAKER) (test code = [facility], 1538) 08995: Nicker/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 ID = [id number] for ZAVA LA, ERANDY POCT-GLUCOSE [id number] 20:15:49 Test Item Value Reference Range Interpretation Comments POC-GLUCOSE METER 165 mg/dL 70-110 H : TESTED A T [facility] 6720 (BEAKER) (test code = [facility], 1538) 79539: Nicker/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 ID = [id number] for ZA VALA, ERANDY HEPATIC FUNCTION [id number] 16:35:07 Test Item Value Reference Range Interpretation Comments TOTAL PROTEIN (BEAKER) (test code = 7.3 gm/dL 6.0-8.3 770) ALBUMIN (BEAKER) (test code = 1145) 3.6 g/dL 3.5-5.0 BILIRUBIN TOTAL (BEAKER) (test code 5.8 mg/dL 0.2-1.2 H = 377) BILIRUBIN DIRECT (BEAKER) (test 4.6 mg/dL 0.1-0.5 H code = 706) ALKALINE PHOSPHATASE (BEAKER) (test 320 U/L 40-150 H code = 346) AST (SGOT) (BEAKER) (test code = 55 U/L 5-34 H 353) ALT (SGPT) (BEAKER) (test code = 34 U/L 6-55 347) Nicker ID - DBSpecimen moderately ictericBASIC METABOLIC [id number] 12:34:43 Test Item Value Reference Range Interpretation Comments SODIUM (BEAKER) 137 meq/L 136-145 (test code = 381) POTASSIUM (BEAKER) 3.8 meq/L 3.5-5.1 (test code = 379) CHLORIDE (BEAKER) 96 meq/L 98-107 L (test code = 382) CO2 (BEAKER) (test 29 meq/L 22-29 code = 355) BLOOD UREA NITROGEN 11 mg/dL 7-21 (BEAKER) (test code = 354) CREATININE (BEAKER) 0.65 mg/dL 0.57-1.25 (test code = 358) GLUCOSE RANDOM 109 mg/dL 70-105 H (BEAKER) (test code = 652) CALCIUM (BEAKER) 9.5 mg/dL 8.4-10.2 (test code = 697) EGFR (BEAKER) (test 96 mL/min/1.73 ESTIMA GIDEON GFR IS code = 1092) sq m NOT ACCURATE CREATININE CLEARANCE IN PREDICTING GLOMERULAR FILTRATION RATE . ESTIMATED GFR I S NOT APPLICABLE FOR DIALYSIS PATIEN TS. Nicker ID - PIAYA LSpecimen moderately ictericPOCT-GLUCOSE [id number] 08:13:41 Test Item Value Reference Range Interpretation Comments POC-GLUCOSE METER 98 mg/dL 70-110 : TESTED A T [facility] 6720 (BEAKER) (test code = [facility], 1538) 03352: Nicker/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 ID = [id number] for NARCISA JOSEPH POCT-GLUCOSE [id number] 21:25:44 Test Item Value Reference Range Interpretation Comments POC-GLUCOSE METER 133 mg/dL 70-110 H : TESTED A T [facility] 6720 [facility] (test code = [facility], 1538) 57840: Nicker/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 ID = [id number] for PE RALES, SHYLA ANG, CHOLANGIOGRAM, [id number] 18:57:00Reason for exam:->biliary obstruction recommend R biliary [facility] Z[facility]ETA : 1970 Sex: FFINAL REPORT History: Large hepatic hilar mass with biliary obstru ction. PROCEDURE: Following informed written consent, general endotracheal anesthesia was administered and the patient's abdominal wall was prepped and draped in the usual sterile manner. Using fluoroscopic guidance, a 21-gauge Chiba needle and a right mid axillary approach, access was gained to a right intrahepatic duct. Percutaneous transhepatic cholangiogram was performed and multiple images were obtained in various projections. A second 21-gauge Chiba needle was then used along with fluoroscopicguidance through a mid axillary approach to access a more peripheral and inferior right intra-hepatic duct. An 018 wire was advanced through the needle centrally through the main right hepatic duct andinto the common bile duct. An AccuStick sheath was then placed over the wire and into the common bile duct. A 4 Turkish Berenstein catheter and 035 angled Glidewire were used through the AccuStick catheter to carefully traverse the common bile duct and ampulla and select the duodenum. Catheter was advanced over the wire to the level of the ligament of Treitz. An Amplatz wire was then placed. The catheter and sheath were removed over the Amplatz wire. The tract was dilated. A 9 Turkish peel-away sheathwas placed. An 8 Turkish internal/external biliary drainage catheter was then placed over the wire, th rough the peel-away sheath and into position with its distal tip coiled in the duodenum and sideholes extending through the common bile duct and into the right intrahepatic ductal system under fluoroscopic guidance. Repeat contrast injection was performed to confirm position of the catheter. The catheter was then secured to the skin using 2-0 silk suture and placed to external gravity bag drainage. Using ultrasound guidance and a right upper quadrant anterolateral approach, a total of three 18-gaugecore tissue samples were then obtained from the patient's large central hepatic mass causing the biliary obstruction described above. The samples were submitted in formalin to pathology for evaluation.Overall, the patient tolerated the procedure well without immediate complications and was dischargedfrom the department to the recovery room in stable condition. FINDINGS: Multiple images obtained during the percutaneous transhepatic cholangiogram and biliary drain placement demonstrates moderately dilated right intrahepatic ducts and a high-grade obstruction of the central right duct, likely secondary to the large central hepatic mass. The left ductal system is not visualized. The cystic duct is visualized and there is retrograde flow of contrast into the gallbladder. An endoscopic stent is present, extending from the confluence of the right and left intrahepatic ducts to the duodenum distally. Following placement of the internal/external biliary drainage catheter, the catheter is noted to lie in expected position with its tip coiled distally in the duodenum. Sideholes extending proximally into the right intrahepatic ductal system adjacent to the indwelling plastic endoscopic stent. Ultrasound images obtained prior to during and following the percutaneous liver biopsy show a large heterogeneously echogenic central liver mass. During the biopsy, the needle tip is noted within this mass. After the biopsy, there are no perihepatic fluid collections or evidence for hemorrhage. IMPRESSION: 1. Kendrick ccessful uncomplicated placement of an 8 Turkish right internal/external biliary drainage catheter for a high-grade obstruction of the right intrahepatic ductal system secondary to a large central hepatic mass. 2. Successful uncomplicated ultrasound-guided core biopsy of the large central heterogeneousmass as described above. Total fluoroscopy time: 10.1 minutes. Estimated total patient dose reported as (Ka,r): 554 mGy Signed: Sarkis Sam MDReport Verified Date/Time: 06/12/2021 18:57:59 ReadingLocation: [facility] B1 P048 Angio Body Reading Room Electronically signed by: SARKIS SAM M.D. on06/12/2021 06:57 PM POCT-GLUCOSE [id number] 18:31:15 Test Item Value Reference Range Interpretation Comments POC-GLUCOSE METER 124 mg/dL 70-110 H : TESTED A T [facility] 6720 (BEAKER) (test code = [facility] [employer] [facility], 1538) 51528: Nicker/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 ID = [id number] for Carolin Espinoza lt SARS-COV2/RT-PCR ([facility])2021-06-12 14:39:57 Test Item Value Reference Range Interpretation Comments SARS-COV2/RT-PCR (test Negative Not Detected, Negative, See code = 3998011) external report for linked test POCT-GLUCOSE [id number] 21:59:26 Test Item Value Reference Range Interpretation Comments POC-GLUCOSE METER 138 mg/dL 70-110 H : TESTED A T [facility] 6720 (BEAKER) (test code = [facility], 1538) 86902: Nicker/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 ID = [id number] for KIMMIE DOMÍNGUEZ POCT-GLUCOSE [id number] 17:44:44 Test Item Value Reference Range Interpretation Comments POC-GLUCOSE METER 137 mg/dL 70-110 H : TESTED A T [facility] 6720 (BEAKER) (test code = [facility] [employer] [facility], 1538) 79756: Nicker/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 ID = [id number] for MARIE ROWE EMMIE POCT-GLUCOSE [id number] 07:51:42 Test Item Value Reference Range Interpretation Comments POC-GLUCOSE METER 94 mg/dL 70-110 : TESTED A T [facility] 6720 (BEAKER) (test code = [facility] [employer] [facility], 1538) 13660: Nicker/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 ID = [id number] for BREANNE IN EMMIE COMPREHENSIVE METABOLIC [id number] 04:51:42 Test Item Value Reference Range Interpretation Comments TOTAL PROTEIN 6.7 gm/dL 6.0-8.3 (BEAKER) (test code = 770) ALBUMIN (BEAKER) 3.3 g/dL 3.5-5.0 L (test code = 1145) ALKALINE PHOSPHATASE 349 U/L 40-150 H (BEAKER) (test code = 346) BILIRUBIN TOTAL 7.9 mg/dL 0.2-1.2 H (BEAKER) (test code = 377) SODIUM (BEAKER) (test 137 meq/L 136-145 code = 381) POTASSIUM (BEAKER) 3.4 meq/L 3.5-5.1 L (test code = 379) CHLORIDE (BEAKER) 99 meq/L 98-107 (test code = 382) CO2 (BEAKER) (test 27 meq/L 22-29 code = 355) BLOOD UREA NITROGEN 8 mg/dL 7-21 (BEAKER) (test code = 354) CREATININE (BEAKER) 0.22 mg/dL 0.57-1.25 L (test code = 358) GLUCOSE RANDOM 100 mg/dL 70-105 (BEAKER) (test code = 652) CALCIUM (BEAKER) 9.1 mg/dL 8.4-10.2 (test code = 697) AST (SGOT) (BEAKER) 49 U/L 5-34 H (test code = 353) ALT (SGPT) (BEAKER) 33 U/L 6-55 (test code = 347) EGFR (BEAKER) (test 335 ESTIMATE D GFR IS code = 1092) mL/min/1.73 sq NOT ACCURA TE m CREATININE CLEARANCE IN PREDICTING GLOMERULAR FILTRATION RATE . ESTIMATED GFR I S NOT APPLICABLE FOR DIALYSIS PATIEN TS. Nicker ID - PIAYA LSpecimen moderately ictericCBC W/PLT COUNT & AUTO [id number] 04:50:09 Test Item Value Reference Range Interpretation Comments WHITE BLOOD CELL COUNT 10.5 K/ L 3.5-10.5 (BEAKER) (test code = 775) RED BLOOD CELL COUNT 4.96 M/ L 3.93-5.22 (BEAKER) (test code = 761) HEMOGLOBIN (BEAKER) 13.6 GM/DL 11.2-15.7 (test code = 410) HEMATOCRIT (BEAKER) 41.1 % 34.1-44.9 (test code = 411) MEAN CORPUSCULAR 82.9 fL 79.4-94.8 Discordant result VOLUME (BEAKER) (test compar ed to previous code = 753) result. Clinica l correlation req uired MEAN CORPUSCULAR 27.4 pg 25.6-32.2 HEMOGLOBIN (BEAKER) (test code = 751) MEAN CORPUSCULAR 33.1 GM/DL 32.2-35.5 HEMOGLOBIN CONC (BEAKER) (test code = 752) RED CELL DISTRIBUTION 16.4 % 11.7-14.4 H WIDTH (BEAKER) (test code = 412) PLATELET COUNT 337 K/CU MM 150-450 (BEAKER) (test code = 756) MEAN PLATELET VOLUME 10.1 fL 9.4-12.3 (BEAKER) (test code = 754) NUCLEATED RED BLOOD 0 /100 WBC 0-0 CELLS (BEAKER) (test code = 413) NEUTROPHILS RELATIVE 65 % PERCENT (BEAKER) (test code = 429) LYMPHOCYTES RELATIVE 26 % PERCENT (BEAKER) (test code = 430) MONOCYTES RELATIVE 7 % PERCENT (BEAKER) (test code = 431) EOSINOPHILS RELATIVE 1 % PERCENT (BEAKER) (test code = 432) BASOPHILS RELATIVE 1 % PERCENT (BEAKER) (test code = 437) NEUTROPHILS ABSOLUTE 6.80 K/ L 1.56-6.13 H COUNT (BEAKER) (test code = 670) LYMPHOCYTES ABSOLUTE 2.71 K/ L 1.18-3.74 COUNT (BEAKER) (test code = 414) MONOCYTES ABSOLUTE 0.75 K/ L 0.24-0.36 H COUNT (BEAKER) (test code = 415) EOSINOPHILS ABSOLUTE 0.12 K/ L 0.04-0.36 COUNT (BEAKER) (test code = 416) BASOPHILS ABSOLUTE 0.05 K/ L 0.01-0.08 COUNT (BEAKER) (test code = 417) IMMATURE 1 % 0-1 GRANULOCYTES-RELATIVE PERCENT (BEAKER) (test code = 2801) POCT-GLUCOSE [id number] 21:21:27 Test Item Value Reference Range Interpretation Comments POC-GLUCOSE METER 140 mg/dL 70-110 H : TESTED A T [facility] 6720 (BEAKER) (test code = [facility] [place], 1538) 29236: Nicker/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 ID = [id number] for JUAN HAND SE POCT-GLUCOSE [id number] 17:36:27 Test Item Value Reference Range Interpretation Comments POC-GLUCOSE METER 123 mg/dL 70-110 H : TESTED Melo Isabel [facility] 6720 (ROBYN) (test code = [facility] [place], 1538) 71880: Nicker/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 ID = [id number] for EMMIE JOHNSON BONE AND/OR JOINT IMAGING, WHOLE [id number] 14:29:00Unlisted Reason for Exam - Click Yes and Enter Reason Below->No [facility] CENTERName: RAQUEL PINK : 1970 Sex: FFINAL REPORT PROCEDURE: BONE SCAN, WHOLE BODY CPT CODE: 97195 INDICATION: Left hepatic lobe mass. PROTOCOL: 21.9 mCi of Tc-99m MDP was injected intravenously. Whole body and selected spot images were obtained approximately 3 hours later. FINDINGS: Tracer activity is moderately and diffusely increased in the skull, maxilla (worse on the right), first anterior ribs bilaterally, mandible shoulders, sternal manubrium and proximal sternal ricardo dy.Tracer activity is mildly increased in the posterior seventh rib, hips, knees and feet. IMPRESSION: 1.There is no typical metastatic pattern. 2.Increased activity in the sternum and anterior first ribs are most likely due to degenerative changes, 3.The focal increased activity in the posterior left seventh rib may represent muscle insertion site 4.Degenerative changes in the spine and peripheral joints.5.Skull hyperostosis. Images for comparison/correlation were chest CT on 06/10/2021 and abdominopelvic MRI on 06/05/2021. Signed: Skyla [facility] Verified Date/Time: 06/10/2021 14:29:27 Reading Location: [address] [address] Reading Room POCT- GLUCOSE [id number] 14:23:13 Test Item Value Reference Range Interpretation Comments POC-GLUCOSE METER 136 mg/dL 70-110 H : TESTED A T [place] [address] (ROBYN) (test code = [facility], 1538) 30193: Nicker/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 ID = [id number] for EMMIE JOHNSON TISSUE [id number] 13:44:33Surgical Pathology Report Case: [id number] Authorizing Provider: Oly Whiting Collected: 06/07/2021 10:53 AM MD Page Ordering Location: [address] Received: 06/09/2021 09:46 AM Service Pathologist: Sean Gibbs MD Specimen: Common Bile Duct, Obtained by [employer] COMMON BILE DUCT, BIOPSY:- INVASIVE ADENOCARCINOMA (see comment) Signing Pathologist Direct Phone Line: [phone] signed by Sean Gibbs MD on 06/10/2021 at 1:44 PMPer review of electronic medical record, an endoscopic impression of a severe stenosis of left main duct at the level of bifurcation and imaging impression of a large mass in the left lobe of liver, is noted. The histology shows markedly atypical cells with high nuclear to cytoplasmic ratio, nuclear hyperchromasia, nuclear membrane irregularities and associated apoptotic debris, present in the surface epithelium and also in the subepithelial tissue, arranged as small irregular glands and as single cells with a desmoplastic response. This is consistent with a malignant process, in the appropriate clinical setting. Radiological, endoscopic and cytological correlation is advised. [id number] Bile DuctReceived in formalin labeled the patient's name, accession number and "common bile duct" are multiple fulton soft tissue fragments measuring up to 0.1 cm in greatest dimension which are filtered and submitted in toto in A1.ASHIA Felder, HT (ASCP)Performed [facility], Department of Pathology, [address] [place] [address], [place] [address], [facility], [facility] of [facility], [address] [place] [address], [facility], Department of Pathology, [address] [place] [address], [id number] 13:43:33Medical Cytology Report Case: [id number] Authorizing Provider: Oly Whiting Collected: 06/07/2021 11:18 AM MD Page OrderingLocation: [address] Received: 06/09/2021 08:38 AM Service Pathologist: Sean Gibbs MD Specimen: Common Bile Duct, CBD aspirate COMMON BILE DUCT ASPIRATE FLUID (CYTOSPINS): - POSITIVE FOR MALIGNANT CELLS, ADENOCARCINOMA (see comment) Signing Pathologist Direct Phone Line: [phone] signed by Sean Gibbs MD on 06/10/2021 at 1:43 PMPer review of electronic medical record, imaging impression of left liver lobe mass and an endoscopic impression of 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 Cytospin slides show markedly atypical cells with nuclear membrane irregularity, hyperchromasia and high nuclear to cytoplasmic ratio, arranged in cohesive clusters and also singly dispersed. Some cells show intracytoplasmic vacuoles. Overall, the cytology can be best classified as posi tive for malignancy, adenocarcinoma, in the right clinical setting.Please also see surgical pathology report [id number]. [id number] cm liver mass, suspicious for cholangiocarcinoma; mildly prominent periportal lymph nodes measure up to 1.2 cmCOMMON BILE DUCT ASPIRATE FLUIDReceived 33 ml yellow cytorich redfixative; prepared 4 cytospins Performed. [facility], Department of Pathology,[address] [place] [address], [facility], Departmentof Pathology, [address] [place] [address], [facility], Department of Pathology, [address] [place] [address], MT, CHEST, WITH [id number] 12:51:00Unlisted Reason for Exam - Click Yes and Enter Reason Below->No [facility] CENTERName: RAQUEL PINK : 1970 Sex: FFINAL REPORT CT of the Chest dated 06/10/2021 CLINICAL INFORMATION: Soft tissue mass, chest, initial exam Comment: Axial images of the chest were obtained from thoracic inlet to the upper abdomen without intravenous intravenous contrast. This exam was performed according to our departmental dose-optimization program, which includes automated exposure control, adjustment of the mA and/or kV according to patient size and/or use of interactive reconstruction technique. Heart is normal in size. Great vessels are unremarkable. No adenopathy in the mediastinum or perihilar region. Trachea and mainstem bronchi are patent. Subsegmental atelectasis is seen in the lingula and both lower lobes. The rest of the lungs are clear. No nodular, mass lesion or airspace disease is noted. No interstitial disease or bronchiectasis is present. No pleural effusion or pleural based mass is seen. No mass lesion is seen in the chest wall. Visualized upper abdomen demonstrates a 5.8 x 8.5 cm mass is seen in the segment 2, segment 3, segment 4 and segment 8 of the liver. Prominentlymph nodes are seen in the periportal and gastrohepatic ligament measuring up to 1.1 x 1.9 cm. Impression: 1. Unremarkable CT of the chest.2. Liver mass suggestive of primary or secondary hepatic neoplasm.3. Adenopathy in the upper abdomen. Signed: Armando Peacock MDReport Verified Date/Time: 06/10/2021 12:51:13 Reading Location: [facility] C013Y CT Body Reading Room POCT-GLUCOSE METER 2021-06-10 08:46:12 Test Item Value Reference Range Interpretation Comments POC-GLUCOSE METER 96 mg/dL 70-110 : TESTED A T [facility] 6720 (BEAKER) (test code = [facility] [place], 1538) [address]: Nicker/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 ID = [id number] for EMMIE MOREIRA COMPREHENSIVE METABOLIC [id number] 04:45:59 Test Item Value Reference Range Interpretation Comments TOTAL PROTEIN 7.1 gm/dL 6.0-8.3 (BEAKER) (test code = 770) ALBUMIN (BEAKER) 3.5 g/dL 3.5-5.0 (test code = 1145) ALKALINE PHOSPHATASE 379 U/L 40-150 H (BEAKER) (test code = 346) BILIRUBIN TOTAL 7.7 mg/dL 0.2-1.2 H (BEAKER) (test code = 377) SODIUM (BEAKER) (test 136 meq/L 136-145 code = 381) POTASSIUM (BEAKER) 3.6 meq/L 3.5-5.1 (test code = 379) CHLORIDE (BEAKER) 97 meq/L 98-107 L (test code = 382) CO2 (BEAKER) (test 26 meq/L 22-29 code = 355) BLOOD UREA NITROGEN 9 mg/dL 7-21 (BEAKER) (test code = 354) CREATININE (BEAKER) 0.59 mg/dL 0.57-1.25 (test code = 358) GLUCOSE RANDOM 106 mg/dL 70-105 H (BEAKER) (test code = 652) CALCIUM (BEAKER) 9.4 mg/dL 8.4-10.2 (test code = 697) AST (SGOT) (BEAKER) 50 U/L 5-34 H (test code = 353) ALT (SGPT) (BEAKER) 34 U/L 6-55 (test code = 347) EGFR (BEAKER) (test 107 ESTIMATE D GFR IS code = 1092) mL/min/1.73 sq NOT ACCURA TE m CREATININE CLEARANCE IN PREDICTING GLOMERULAR FILTRATION RATE . ESTIMATED GFR I S NOT APPLICABLE FOR DIALYSIS PATIEN TS. Nicker ID - SARAH MSpecimen moderately ictericCBC W/PLT COUNT & AUTO [id number] 04:23:27 Test Item Value Reference Range Interpretation Comments WHITE BLOOD CELL COUNT (BEAKER) 10.4 K/ L 3.5-10.5 (test code = 775) RED BLOOD CELL COUNT (BEAKER) 5.09 M/ L 3.93-5.22 (test code = 761) HEMOGLOBIN (BEAKER) (test code = 13.8 GM/DL 11.2-15.7 410) HEMATOCRIT (BEAKER) (test code = 40.1 % 34.1-44.9 411) MEAN CORPUSCULAR VOLUME (BEAKER) 78.8 fL 79.4-94.8 L (test code = 753) MEAN CORPUSCULAR HEMOGLOBIN 27.1 pg 25.6-32.2 (BEAKER) (test code = 751) MEAN CORPUSCULAR HEMOGLOBIN CONC 34.4 GM/DL 32.2-35.5 (BEAKER) (test code = 752) RED CELL DISTRIBUTION WIDTH 16.5 % 11.7-14.4 H (BEAKER) (test code = 412) PLATELET COUNT (BEAKER) (test 350 K/CU MM 150-450 code = 756) MEAN PLATELET VOLUME (BEAKER) 10.8 fL 9.4-12.3 (test code = 754) NUCLEATED RED BLOOD CELLS 0 /100 WBC 0-0 (BEAKER) (test code = 413) NEUTROPHILS RELATIVE PERCENT 72 % (BEAKER) (test code = 429) LYMPHOCYTES RELATIVE PERCENT 20 % (BEAKER) (test code = 430) MONOCYTES RELATIVE PERCENT 7 % (BEAKER) (test code = 431) EOSINOPHILS RELATIVE PERCENT 1 % (BEAKER) (test code = 432) BASOPHILS RELATIVE PERCENT 0 % (BEAKER) (test code = 437) NEUTROPHILS ABSOLUTE COUNT 7.44 K/ L 1.56-6.13 H (BEAKER) (test code = 670) LYMPHOCYTES ABSOLUTE COUNT 2.05 K/ L 1.18-3.74 (BEAKER) (test code = 414) MONOCYTES ABSOLUTE COUNT (BEAKER) 0.70 K/ L 0.24-0.36 H (test code = 415) EOSINOPHILS ABSOLUTE COUNT 0.08 K/ L 0.04-0.36 (BEAKER) (test code = 416) BASOPHILS ABSOLUTE COUNT (BEAKER) 0.04 K/ L 0.01-0.08 (test code = 417) IMMATURE GRANULOCYTES-RELATIVE 1 % 0-1 PERCENT (BEAKER) (test code = 2801) POCT-GLUCOSE [id number] 23:17:20 Test Item Value Reference Range Interpretation Comments POC-GLUCOSE METER 122 mg/dL 70-110 H : TESTED A T [facility] 6720 (BEAKER) (test code = [facility], 1538) 14866: Nicker/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 ID = [id number] for Nayeli Tesfaye POCT-GLUCOSE [id number] 17:17:57 Test Item Value Reference Range Interpretation Comments POC-GLUCOSE METER 146 mg/dL 70-110 H : TESTED A T [facility] 6720 (BEAKER) (test code = [facility], 1538) 28[address]: Nicker/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 ID = [id number] for EMMIE JOHNSON POCT-GLUCOSE [id number] 11:59:25 Test Item Value Reference Range Interpretation Comments POC-GLUCOSE METER 132 mg/dL 70-110 H : TESTED A T [facility] 6720 (BEAKER) (test code = [facility], 1538) [id number]: Nicker/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 ID = [id number] for EMMIE JOHNSON COMPREHENSIVE METABOLIC [id number] 10:34:04 Test Item Value Reference Range Interpretation Comments TOTAL PROTEIN 7.3 gm/dL 6.0-8.3 Specimen sligh tly (BEAKER) (test code = hemoly zed 770) ALBUMIN (BEAKER) 3.6 g/dL 3.5-5.0 Specimen sl ightly (test code = 1145) hemolyzed ALKALINE PHOSPHATASE 415 U/L 40-150 H (BEAKER) (test code = 346) BILIRUBIN TOTAL 7.3 mg/dL 0.2-1.2 H Specimen sli ghtly (BEAKER) (test code = hemoly zed 377) SODIUM (BEAKER) (test 136 meq/L 136-145 code = 381) POTASSIUM (BEAKER) 3.4 meq/L 3.5-5.1 L Specimen slightly (test code = 379) hemolyzed CHLORIDE (BEAKER) 96 meq/L 98-107 L (test code = 382) CO2 (BEAKER) (test 28 meq/L 22-29 code = 355) BLOOD UREA NITROGEN 7 mg/dL 7-21 (BEAKER) (test code = 354) CREATININE (BEAKER) 0.58 mg/dL 0.57-1.25 Specimen slightly (test code = 358) hemolyzed GLUCOSE RANDOM 121 mg/dL 70-105 H (BEAKER) (test code = 652) CALCIUM (BEAKER) 9.3 mg/dL 8.4-10.2 (test code = 697) AST (SGOT) (BEAKER) 56 U/L 5-34 H Specimen slightly (test code = 353) hemolyzed ALT (SGPT) (BEAKER) 33 U/L 6-55 Specimen slightly (test code = 347) hemolyzed EGFR (BEAKER) (test 110 ESTIMATE D GFR IS code = 1092) mL/min/1.73 sq NOT ACCURA TE m CREATININE CLEARANCE IN PREDICTING GLOMERULAR FILTRATION RATE . ESTIMATED GFR I S NOT APPLICABLE FOR DIALYSIS PATIEN TS. Nicker ID - SATISH FSpecimen moderately ictericCYTOLOGY [id number] 10:02:31 Test Item Value Reference Range Interpretation Comments CYTOLOGY RESULT POINTER See Separate Report (BEAKER) (test code = 3259) CBC W/PLT COUNT & AUTO [id number] 09:51:49 Test Item Value Reference Range Interpretation Comments WHITE BLOOD CELL COUNT (BEAKER) 9.5 K/ L 3.5-10.5 (test code = 775) RED BLOOD CELL COUNT (BEAKER) 4.96 M/ L 3.93-5.22 (test code = 761) HEMOGLOBIN (BEAKER) (test code = 13.7 GM/DL 11.2-15.7 410) HEMATOCRIT (BEAKER) (test code = 40.1 % 34.1-44.9 411) MEAN CORPUSCULAR VOLUME (BEAKER) 80.8 fL 79.4-94.8 (test code = 753) MEAN CORPUSCULAR HEMOGLOBIN 27.6 pg 25.6-32.2 (BEAKER) (test code = 751) MEAN CORPUSCULAR HEMOGLOBIN CONC 34.2 GM/DL 32.2-35.5 (BEAKER) (test code = 752) RED CELL DISTRIBUTION WIDTH 17.0 % 11.7-14.4 H (BEAKER) (test code = 412) PLATELET COUNT (BEAKER) (test 368 K/CU MM 150-450 code = 756) MEAN PLATELET VOLUME (BEAKER) 10.6 fL 9.4-12.3 (test code = 754) NUCLEATED RED BLOOD CELLS 0 /100 WBC 0-0 (BEAKER) (test code = 413) NEUTROPHILS RELATIVE PERCENT 69 % (BEAKER) (test code = 429) LYMPHOCYTES RELATIVE PERCENT 22 % (BEAKER) (test code = 430) MONOCYTES RELATIVE PERCENT 7 % (BEAKER) (test code = 431) EOSINOPHILS RELATIVE PERCENT 1 % (BEAKER) (test code = 432) BASOPHILS RELATIVE PERCENT 1 % (BEAKER) (test code = 437) NEUTROPHILS ABSOLUTE COUNT 6.53 K/ L 1.56-6.13 H (BEAKER) (test code = 670) LYMPHOCYTES ABSOLUTE COUNT 2.10 K/ L 1.18-3.74 (BEAKER) (test code = 414) MONOCYTES ABSOLUTE COUNT (BEAKER) 0.68 K/ L 0.24-0.36 H (test code = 415) EOSINOPHILS ABSOLUTE COUNT 0.09 K/ L 0.04-0.36 (BEAKER) (test code = 416) BASOPHILS ABSOLUTE COUNT (BEAKER) 0.06 K/ L 0.01-0.08 (test code = 417) IMMATURE GRANULOCYTES-RELATIVE 1 % 0-1 PERCENT (BEAKER) (test code = 2801) POCT-GLUCOSE [id number] 07:50:45 Test Item Value Reference Range Interpretation Comments POC-GLUCOSE METER 102 mg/dL 70-110 : TESTED A T [facility] 6720 (BEAKER) (test code = [facility], 153) [id number]: Nicker/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 ID = [id number] for EMMIE JOHNSON POCT-GLUCOSE [id number] 21:32:56 Test Item Value Reference Range Interpretation Comments POC-GLUCOSE METER 146 mg/dL 70-110 H : TESTED A T [facility] 6720 (BEAKER) (test code = [facility], 153) 21819: Nicker/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 ID = [id number] for NEGRA MERYLSHERYLDUSTINLO POCT-GLUCOSE [id number] 17:37:43 Test Item Value Reference Range Interpretation Comments POC-GLUCOSE METER 124 mg/dL 70-110 H : TESTED A T [facility] 6720 (BEAKER) (test code = [facility] [place], 1538) 26924: Nicker/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 ID = [id number] for MIHIR DIAZ POCT-GLUCOSE [id number] 11:30:55 Test Item Value Reference Range Interpretation Comments POC-GLUCOSE METER 158 mg/dL 70-110 H : TESTED A T [facility] 6720 (BEAKER) (test code = [facility], 1538) 65367: Nicker/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 ID = [id number] for MIHIR DIAZ COMPREHENSIVE METABOLIC [id number] 10:54:30 Test Item Value Reference Range Interpretation Comments TOTAL PROTEIN 6.7 gm/dL 6.0-8.3 (BEAKER) (test code = 770) ALBUMIN (BEAKER) 3.4 g/dL 3.5-5.0 L (test code = 1145) ALKALINE PHOSPHATASE 397 U/L 40-150 H (BEAKER) (test code = 346) BILIRUBIN TOTAL 7.2 mg/dL 0.2-1.2 H (BEAKER) (test code = 377) SODIUM (BEAKER) (test 139 meq/L 136-145 code = 381) POTASSIUM (BEAKER) 3.2 meq/L 3.5-5.1 L (test code = 379) CHLORIDE (BEAKER) 99 meq/L 98-107 (test code = 382) CO2 (BEAKER) (test 29 meq/L 22-29 code = 355) BLOOD UREA NITROGEN 7 mg/dL 7-21 (BEAKER) (test code = 354) CREATININE (BEAKER) 0.61 mg/dL 0.57-1.25 (test code = 358) GLUCOSE RANDOM 113 mg/dL 70-105 H (BEAKER) (test code = 652) CALCIUM (BEAKER) 9.3 mg/dL 8.4-10.2 (test code = 697) AST (SGOT) (BEAKER) 53 U/L 5-34 H (test code = 353) ALT (SGPT) (BEAKER) 35 U/L 6-55 (test code = 347) EGFR (BEAKER) (test 103 ESTIMATE D GFR IS code = 1092) mL/min/1.73 sq NOT ACCURA TE m CREATININE CLEARANCE IN PREDICTING GLOMERULAR FILTRATION RATE . ESTIMATED GFR I S NOT APPLICABLE FOR DIALYSIS PATIEN TS. Nicker ID - PIAYA LSpecimen moderately ictericCBC W/PLT COUNT & AUTO [id number] 10:19:43 Test Item Value Reference Range Interpretation Comments WHITE BLOOD CELL COUNT (BEAKER) 8.6 K/ L 3.5-10.5 (test code = 775) RED BLOOD CELL COUNT (BEAKER) 4.64 M/ L 3.93-5.22 (test code = 761) HEMOGLOBIN (BEAKER) (test code = 12.6 GM/DL 11.2-15.7 410) HEMATOCRIT (BEAKER) (test code = 37.4 % 34.1-44.9 411) MEAN CORPUSCULAR VOLUME (BEAKER) 80.6 fL 79.4-94.8 (test code = 753) MEAN CORPUSCULAR HEMOGLOBIN 27.2 pg 25.6-32.2 (BEAKER) (test code = 751) MEAN CORPUSCULAR HEMOGLOBIN CONC 33.7 GM/DL 32.2-35.5 (BEAKER) (test code = 752) RED CELL DISTRIBUTION WIDTH 17.2 % 11.7-14.4 H (BEAKER) (test code = 412) PLATELET COUNT (BEAKER) (test 337 K/CU MM 150-450 code = 756) MEAN PLATELET VOLUME (BEAKER) 10.4 fL 9.4-12.3 (test code = 754) NUCLEATED RED BLOOD CELLS 0 /100 WBC 0-0 (BEAKER) (test code = 413) NEUTROPHILS RELATIVE PERCENT 66 % (BEAKER) (test code = 429) LYMPHOCYTES RELATIVE PERCENT 25 % (BEAKER) (test code = 430) MONOCYTES RELATIVE PERCENT 7 % (BEAKER) (test code = 431) EOSINOPHILS RELATIVE PERCENT 1 % (BEAKER) (test code = 432) BASOPHILS RELATIVE PERCENT 0 % (BEAKER) (test code = 437) NEUTROPHILS ABSOLUTE COUNT 5.71 K/ L 1.56-6.13 (BEAKER) (test code = 670) LYMPHOCYTES ABSOLUTE COUNT 2.17 K/ L 1.18-3.74 (BEAKER) (test code = 414) MONOCYTES ABSOLUTE COUNT (BEAKER) 0.63 K/ L 0.24-0.36 H (test code = 415) EOSINOPHILS ABSOLUTE COUNT 0.05 K/ L 0.04-0.36 (BEAKER) (test code = 416) BASOPHILS ABSOLUTE COUNT (AKER) 0.03 K/ L 0.01-0.08 (test code = 417) IMMATURE GRANULOCYTES-RELATIVE 0 % 0-1 PERCENT (BEAKER) (test code = 2801) POCT-GLUCOSE [id number] 07:55:36 Test Item Value Reference Range Interpretation Comments POC-GLUCOSE METER 88 mg/dL 70-110 : TESTED A T [facility] 6720 (BEAKER) (test code = [facility], 153) 13837: Nicker/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 ID = [id number] for KIANNA BAH POCT-GLUCOSE [id number] 21:23:21 Test Item Value Reference Range Interpretation Comments POC-GLUCOSE METER 193 mg/dL 70-110 H : TESTED A T [facility] 6720 (BEAKER) (test code = [facility], 1538) 75745: Nicker/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 ID = [id number] for SHYLA KRAUS POCT-GLUCOSE [id number] 17:25:28 Test Item Value Reference Range Interpretation Comments POC-GLUCOSE METER 181 mg/dL 70-110 H : TESTED A T [facility] 6720 (BEAKER) (test code = [facility], 1538) 20097: Nicker/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 ID = [id number] for MIHIR DIAZ POCT-GLUCOSE [id number] 12:59:42 Test Item Value Reference Range Interpretation Comments POC-GLUCOSE METER 143 mg/dL 70-110 H : TESTED A T [facility] 6720 (BEAKER) (test code = [facility], 1538) 33857: Nicker/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 ID = [id number] for MIHIR DIAZ POCT-GLUCOSE [id number] 11:43:35 Test Item Value Reference Range Interpretation Comments POC-GLUCOSE METER 201 mg/dL 70-110 H : TESTED A T [facility] 6720 (BEAKER) (test code [facility], = 1538) 91111: Nicker/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 ID = [id number] for Roxane zhu [place], [id number] 11:07:00Reason for exam:->Jaundice [facility] CENTERName: RAQUEL PINK : 1970 Sex: FFluoroscopic unit utilized for a procedure performed in the OR. No interpretation was requested. Refer to the operative report for findings. Refer to PACS for patient radiation dose information.POCT-GLUCOSE [id number] 07:40:21 Test Item Value Reference Range Interpretation Comments POC-GLUCOSE METER 94 mg/dL 70-110 : TESTED A T [facility] 6720 (BEAKER) (test code = [facility], 153) 65751: Nicker/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 ID = [id number] for KIANNA BAH POCT-GLUCOSE [id number] 22:37:18 Test Item Value Reference Range Interpretation Comments POC-GLUCOSE METER 108 mg/dL 70-110 : TESTED A T [facility] 6720 (BEAKER) (test code = [facility], 153) 46290: Nicker/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 ID = [id number] for SHYLA KRAUS POCT-GLUCOSE [id number] 17:29:42 Test Item Value Reference Range Interpretation Comments POC-GLUCOSE METER 129 mg/dL 70-110 H : TESTED A T [facility] 6720 (BEAKER) (test code = [facility], 153) 50852: Nicker/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 ID = [id number] for MA RTIN, CHIANNA POCT-GLUCOSE [id number] 12:35:17 Test Item Value Reference Range Interpretation Comments POC-GLUCOSE METER 162 mg/dL 70-110 H : TESTED A T [facility] 6720 (BEAKER) (test code = [facility], 153) 66610: Nicker/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 ID = [id number] for MA RTIN, CHIANNA POCT-GLUCOSE [id number] 08:15:46 Test Item Value Reference Range Interpretation Comments POC-GLUCOSE METER 100 mg/dL 70-110 : TESTED A T [facility] 6720 (BEAKER) (test code = [facility], 1538) 00888: Nicker/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 ID = [id number] for EMMIE JOHNSON POCT-GLUCOSE [id number] 21:16:23 Test Item Value Reference Range Interpretation Comments POC-GLUCOSE METER 135 mg/dL 70-110 H : TESTED A T [facility] 6720 (BEAKER) (test code = [facility], 1538) 16976: Nicker/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 ID = [id number] for JUAN HAND SE POCT-GLUCOSE [id number] 17:57:43 Test Item Value Reference Range Interpretation Comments POC-GLUCOSE METER 121 mg/dL 70-110 H : TESTED A T [facility] 6720 (BEAKER) (test code = [facility], 1538) 14067: Nicker/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 ID = [id number] for EMMIE JOHNSON POCT-GLUCOSE [id number] 12:11:50 Test Item Value Reference Range Interpretation Comments POC-GLUCOSE METER 143 mg/dL 70-110 H : TESTED A T [facility] 6720 (BEAKER) (test code = [facility], 1538) 83860: Nicker/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 ID = [id number] for EMMIE JOHNSON MR, ABDOMEN, [id number] 09:03:00MRI LIVER PROTOCOL; liver masses MRCP patient with dilated intrahepatic ducts. Recommended by hepatology Unlisted Reason for Exam - Click Yes and Enter Reason Below->No Deos the patient have an implanted electronic device?->No [facility] : 1970 Sex: FFINAL REPORT TECHNIQUE: MRI of the abdomen and MRCP WITHOUT and WITH intravenous contrast. 3-D volume reconstructions were obtained to evaluate the biliary ductal system. INDICATION: 51-year-old woman with liver mass. COMPARISON: None. FINDINGS: LOWER THORAX: Unremarkable. HEPATOBILIARY: No cirrhosis or hepatic steatosis. 7.9 x 7.1 x 9 cm mass with progressive delayed internal enhancement involves the left hepatic lobe, anterior segment of the right hepatic lobe,as well as the caudate lobe. The mass results in mild- moderate prominence of the upstream intrahepatic bile ducts in both lobes. Additional 1.1 x 1.2 cm peripherally enhancing mass in segment . Subcentimeter hypoenhancing T2 hyperintense lesions in segments , VII, and VIII. Few punctate arterially enhancing foci scattered in the right hepatic lobe become isointense to liver parenchyma on subsequent postcontrast sequences and are probable shunts. Common bile duct is normal in caliber. Gallbladder is unremarkable. SPLEEN: No splenomegaly.PANCREAS: Pancreas divisum. Questionable cystic lesions scattered in the pancreatic body and tail measure up to 0.5 cm. No solid mass or ductal dilatation. ADRENALS: No adrenal nodule.KIDNEYS/URETERS: No hydronephrosis or mass. Subcentimeter left renal cyst. PE RITONEUM/RETROPERITONEUM: No free fluid.LYMPH NODES: Mildly prominent periportal lymph nodes measureup to 1.2 cm.VESSELS: Occlusion of the left portal vein by the aforementioned liver mass. GI TRACT: No distention or wall thickening. Small hiatal hernia. BONES AND SOFT TISSUES: Unremarkable. IMPRESSION:9 cm liver mass, suspicious for cholangiocarcinoma. The mass results in upstream intrahepatic biliary ductal prominence in both lobes, and occludes the left portal vein. 1.2 cm mass in segment , likely a metastasis. Additional subcentimeter hypoenhancing lesions in the right hepatic lobe are too small to characterize, but may also be metastases. Indeterminate mildly prominent periportal lymph nodes, for which metastasis cannot be excluded. Questionable cystic lesions in the pancreatic body and tail measure up to 0.5 cm. Signed: Mala Meeks MDReport Verified Date/Time: 06/05/2021 09:03:32 Reading Location: [facility] Diagnostic Imaging Reading Room - [place] [address] [id number] POCT-GLUCOSE METER 2021-06-05 08:04:23 Test Item Value Reference Range Interpretation Comments POC-GLUCOSE METER 97 mg/dL 70-110 : TESTED A T [facility] 6720 ([employer] HealthcareAKER) (test code = [facility], 1538) 01254: Nicker/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 ID = [id number] for EMMIE MOREIRA HEPATITIS B SURFACE [id number] 06:11:57 Test Item Value Reference Range Interpretation Comments HEPATITIS B SURFACE ANTIBODY < mIU/mL <8.0 (BEAKER) (test code = 647) Nicker ID - SARAH MPOCT-GLUCOSE [id number] 21:20:16 Test Item Value Reference Range Interpretation Comments POC-GLUCOSE METER 170 mg/dL 70-110 H : TESTED A T [facility] 6720 (BEAKER) (test code = [facility], 1538) 68301: Nicker/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 ID = [id number] for BROWN CLAYTON POCT-GLUCOSE [id number] 17:16:22 Test Item Value Reference Range Interpretation Comments POC-GLUCOSE METER 128 mg/dL 70-110 H : TESTED A T [facility] 6720 (BEAKER) (test code = [facility], 1538) 41878: Nicker/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 ID = [id number] for MIHIR DIAZ EBV ANTIBODY, [id number] 11:41:04 Test Item Value Reference Range Interpretation Comments JIMYM BRYANT VIRAL CAPSID Negative Negative, Equivocal ANTIGEN IGM (Sicubo) (test code = 3418) Jimmy Bryant Viral Capsid Antigen IgM Result Interpretation: </= 0.8 Al Negative 0.9-1.0 Al Equivocal >/= 1.1 Al PositiveEBV ANTIBODY, IGG 2021-06-04 11:41:04 Test Item Value Reference Range Interpretation Comments JIMMY BRYANT VIRAL CAPSID Positive Negative, Equivocal A ANTIGEN IGG (Sicubo) (test code = 3415) Jimmy Bryant Viral Capsid Antigen IgG Result Interpretation: </= 0.8 Al Negative 0.9-1.0 Al Equivocal >/= 1.1 Al PositiveCYTOMEGALOVIRUS ANTIBODY, [id number] 11:41:04 Test Item Value Reference Range Interpretation Comments CYTOMEGALOVIRUS, IGG (BEAKER) Positive Negative, Equivocal A (test code = 3429) CMV IgG Result Interpretation: </= 0.8 Al Negative 0.9-1.0 Al Equivocal >/=1.1 Al PositivePOCT-GLUCOSE [id number] 11:24:58 Test Item Value Reference Range Interpretation Comments POC-GLUCOSE METER 165 mg/dL 70-110 H : TESTED A T [facility] 6720 (BEAKER) (test code = [facility], 1538) 73588: Nicker/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 ID = [id number] for MIHIR DIAZ ANTI-NUCLEAR ANTIBODY (MORENA)2021-06-04 09:49:08 Test Item Value Reference Range Interpretation Comments ANTI-NUCLEAR ANTIBODY (MORENA) (BEAKER) Negative Negative (test code = 418) Test performed by IFA method.Test performed by IFA method.HEMOGLOBIN A1C 2021-06-04 09:31:32 Test Item Value Reference Range Interpretation Comments HEMOGLOBIN A1C (BEAKER) (test code = 7.4 % 4.3-6.1 H 368) POCT-GLUCOSE [id number] 08:13:37 Test Item Value Reference Range Interpretation Comments POC-GLUCOSE METER 109 mg/dL 70-110 : TESTED A T [facility] 6720 (BEAKER) (test code = [facility], 1538) 30338: Nicker/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 ID = [id number] for MIHIR DIAZ HEPATIC FUNCTION [id number] 07:38:26 Test Item Value Reference Range Interpretation Comments TOTAL PROTEIN (BEAKER) (test code = 6.9 gm/dL 6.0-8.3 770) ALBUMIN (BEAKER) (test code = 1145) 3.6 g/dL 3.5-5.0 BILIRUBIN TOTAL (BEAKER) (test code 7.9 mg/dL 0.2-1.2 H = 377) BILIRUBIN DIRECT (BEAKER) (test 6.3 mg/dL 0.1-0.5 H code = 706) ALKALINE PHOSPHATASE (BEAKER) (test 519 U/L 40-150 H code = 346) AST (SGOT) (BEAKER) (test code = 54 U/L 5-34 H 353) ALT (SGPT) (BEAKER) (test code = 41 U/L 6-55 347) Nicker ID Darian COVARRUBIAS FSpecimen moderately [id number] 07:38:25 Test Item Value Reference Range Interpretation Comments PHOSPHORUS (BEAKER) (test code = 4.7 mg/dL 2.3-4.7 604) Nicker ID Darian COVARRUBIAS FBASIC METABOLIC [id number] 07:38:25 Test Item Value Reference Range Interpretation Comments SODIUM (BEAKER) 135 meq/L 136-145 L (test code = 381) POTASSIUM (BEAKER) 3.5 meq/L 3.5-5.1 (test code = 379) CHLORIDE (BEAKER) 101 meq/L 98-107 (test code = 382) CO2 (BEAKER) (test 22 meq/L 22-29 code = 355) BLOOD UREA NITROGEN 15 mg/dL 7-21 (BEAKER) (test code = 354) CREATININE (BEAKER) 0.69 mg/dL 0.57-1.25 (test code = 358) GLUCOSE RANDOM 140 mg/dL 70-105 H (BEAKER) (test code = 652) CALCIUM (BEAKER) 9.5 mg/dL 8.4-10.2 (test code = 697) EGFR (BEAKER) (test 90 mL/min/1.73 ESTIMA GIDEON GFR IS code = 1092) sq m NOT ACCURATE CREATININE CLEARANCE IN PREDICTING GLOMERULAR FILTRATION RATE . ESTIMATED GFR I S NOT APPLICABLE FOR DIALYSIS PATIEN TS. Nicker ID Darian COVARRUBIAS FSpecimen moderately [id number] 07:38:24 Test Item Value Reference Range Interpretation Comments MAGNESIUM (BEAKER) (test code = 1.9 mg/dL 1.6-2.6 627) Nicker ID - SATISH FPROTHROMBIN [id number] 05:43:19 Test Item Value Reference Range Interpretation Comments PROTIME (BEAKER) 13.5 seconds 11.9-14.2 (test code = 759) INR (BEAKER) (test 1.05 See_Comment [Automat ed message] code = 370) The system [employer] generated this result transmitted ref erence range: <=5.90. The reference range was not used to int erpret this result as normal/abnormal . RECOMMENDED COUMADIN/WARFARIN INR THERAPY RANGESSTANDARD DOSE: 2.0 - 3.0 Includes: PROPHYLAXIS forvenous thrombosis, systemic embolization; TREATMENT for venous thrombosis and/or pulmonary embolus.HIGH RISK: Target INR is 2.5-3.5 for patients with mechanical heart valves.CBC W/PLT COUNT & AUTO DIFFERENTIAL 2021-06-04 05:31:08 Test Item Value Reference Range Interpretation Comments WHITE BLOOD CELL COUNT (BEAKER) 6.5 K/ L 3.5-10.5 (test code = 775) RED BLOOD CELL COUNT (BEAKER) 4.76 M/ L 3.93-5.22 (test code = 761) HEMOGLOBIN (BEAKER) (test code = 12.9 GM/DL 11.2-15.7 410) HEMATOCRIT (BEAKER) (test code = 38.9 % 34.1-44.9 411) MEAN CORPUSCULAR VOLUME (BEAKER) 81.7 fL 79.4-94.8 (test code = 753) MEAN CORPUSCULAR HEMOGLOBIN 27.1 pg 25.6-32.2 (BEAKER) (test code = 751) MEAN CORPUSCULAR HEMOGLOBIN CONC 33.2 GM/DL 32.2-35.5 (BEAKER) (test code = 752) RED CELL DISTRIBUTION WIDTH 17.1 % 11.7-14.4 H (BEAKER) (test code = 412) PLATELET COUNT (BEAKER) (test 290 K/CU MM 150-450 code = 756) MEAN PLATELET VOLUME (BEAKER) 10.4 fL 9.4-12.3 (test code = 754) NUCLEATED RED BLOOD CELLS 0 /100 WBC 0-0 (BEAKER) (test code = 413) NEUTROPHILS RELATIVE PERCENT 65 % (BEAKER) (test code = 429) LYMPHOCYTES RELATIVE PERCENT 23 % (BEAKER) (test code = 430) MONOCYTES RELATIVE PERCENT 6 % (BEAKER) (test code = 431) EOSINOPHILS RELATIVE PERCENT 5 % (BEAKER) (test code = 432) BASOPHILS RELATIVE PERCENT 0 % (BEAKER) (test code = 437) NEUTROPHILS ABSOLUTE COUNT 4.20 K/ L 1.56-6.13 (BEAKER) (test code = 670) LYMPHOCYTES ABSOLUTE COUNT 1.51 K/ L 1.18-3.74 (BEAKER) (test code = 414) MONOCYTES ABSOLUTE COUNT (BEAKER) 0.38 K/ L 0.24-0.36 H (test code = 415) EOSINOPHILS ABSOLUTE COUNT 0.33 K/ L 0.04-0.36 (BEAKER) (test code = 416) BASOPHILS ABSOLUTE COUNT (BEAKER) 0.02 K/ L 0.01-0.08 (test code = 417) IMMATURE GRANULOCYTES-RELATIVE 1 % 0-1 PERCENT (BEAKER) (test code = 2801) POCT-GLUCOSE [id number] 21:27:11 Test Item Value Reference Range Interpretation Comments POC-GLUCOSE METER 126 mg/dL 70-110 H : TESTED A T [facility] (BEAKER) (test code = [facility] [place], 1538) 73224: Nicker/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 ID = [id number] for BROWN CLAYTON HIV-1 ANTIGEN WITH HIV-1/2 [id number] 18:15:07 Test Item Value Reference Range Interpretation Comments HIV-1 ANTIGEN WITH HIV 1\\T\\2 Nonreactive Nonreactive ANTIBODY (2) (BEAKER) (test code = 2586) Nicker ID - BSHEPATITIS A ANTIBODY, [id number] 18:15:07 Test Item Value Reference Range Interpretation Comments HEPATITIS A IGG ANTIBODY (BEAKER) Nonreactive Nonreactive (test code = 2797) Nicker ID - BSHEPATITIS A ANTIBODY, [id number] 18:15:06 Test Item Value Reference Range Interpretation Comments HEPATITIS A IGM ANTIBODY (BEAKER) Nonreactive Nonreactive (test code = 498) Nicker ID - BSHEPATITIS C [id number] 18:10:03 Test Item Value Reference Range Interpretation Comments HEPATITIS C ANTIBODY (BEAKER) Nonreactive Nonreactive (test code = 367) Nicker ID - BSHEPATITIS B CORE ANTIBODY, [id number] 18:10:03 Test Item Value Reference Range Interpretation Comments HEPATITIS B CORE TOTAL ANTIBODY Nonreactive Nonreactive (BEAKER) (test code = 497) Nicker ID - BSCARCINOEMBRYONIC ANTIGEN (CEA)2021-06-03 18:10:02 Test Item Value Reference Range Interpretation Comments CARCINOEMBRYONIC ANTIGEN (BEAKER) 3.3 ng/mL 0.0-5.0 (test code = 685) Nicker ID - BSHEPATITIS B SURFACE [id number] 18:10:02 Test Item Value Reference Range Interpretation Comments HEPATITIS B SURFACE ANTIGEN (2) Nonreactive Nonreactive (BEAKER) (test code = 2585) Specimen is considered negative for HBsAg.POCT-GLUCOSE [id number] 17:40:09 Test Item Value Reference Range Interpretation Comments POC-GLUCOSE METER 130 mg/dL 70-110 H : TESTED A [facility] (test code = [place], 15[address]) [address]: Nicker/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 ID = [id number] for MIHIR DIAZ BILIRUBIN, [id number] 16:43:09 Test Item Value Reference Range Interpretation Comments BILIRUBIN DIRECT 5.6 mg/dL 0.1-0.5 H Specimen sl ightly (BEAKER) (test code = hemoly zed 706) Nicker ID - BSLIPID [id number] 16:43:03 Test Item Value Reference Range Interpretation Comments TRIGLYCERIDES (BEAKER) 352 mg/dL Speci men slightly (test code = 540) hemolyzed CHOLESTEROL (BEAKER) 234 mg/dL Specime n slightly (test code = 631) hemolyzed HDL CHOLESTEROL (BEAKER) 11 mg/dL (test code = 976) LDL CHOLESTEROL 153 mg/dL CALCULATED (BEAKER) (test code = 633) Triglyceride Reference Range: Low Risk <150 Borderline 150-199 High Risk 200-499 Very High Risk >=500Cholesterol Reference Range: Low Risk <200 Borderline 200-239 High Risk >240HDL Cholesterol Reference Range: Low Risk >=60 High Risk <40LDL Cholesterol Reference Range: Optimal <100 Near Optimal 100-129 Borderline 130-159 High 160-189 Very High >=190 Nicker ID - BSSpecimen moderately [id number] 2021-06-03 16:26:58 Test Item Value Reference Range Interpretation Comments ALPHA-1 ANTITRYPSIN (BEAKER) 235.60 mg/dL 90.00-200.00 H (test code = 502) Nicker ID - [id number] 15:33:02 Test Item Value Reference Range Interpretation Comments FERRITIN (BEAKER) (test code = 174.69 ng/mL 5.00-275.00 361) Nicker ID - BSIRON, TIBC, % SAT. (WITHOUT FERRITIN)2021-06-03 15:12:01 Test Item Value Reference Range Interpretation Comments IRON (BEAKER) (test code = 547) 103.0 ug/dL 40.0-160.0 TOTAL IRON BINDING CAPACITY 384 ug/dL 250-450 (BEAKER) (test code = 769) IRON % SATURATION (2) (BEAKER) 27 % 20-55 (test code = 2590) Nicker ID - BSALPHA FETOPROTEIN (AFP), TUMOR [id number] 12:08:22 Test Item Value Reference Range Interpretation Comments ALPHA-FETOPROTEIN (BEAKER) (test 2.0 ng/mL <10.0 code = 1094) Nicker ID - [place] FCOMPREHENSIVE METABOLIC [id number] 11:49:08 Test Item Value Reference Range Interpretation Comments TOTAL PROTEIN 7.6 gm/dL 6.0-8.3 (BEAKER) (test code = 770) ALBUMIN (BEAKER) 3.9 g/dL 3.5-5.0 (test code = 1145) ALKALINE PHOSPHATASE 560 U/L 40-150 H (BEAKER) (test code = 346) BILIRUBIN TOTAL 7.9 mg/dL 0.2-1.2 H (BEAKER) (test code = 377) SODIUM (BEAKER) (test 135 meq/L 136-145 L code = 381) POTASSIUM (BEAKER) 3.4 meq/L 3.5-5.1 L (test code = 379) CHLORIDE (BEAKER) 100 meq/L 98-107 (test code = 382) CO2 (BEAKER) (test 22 meq/L 22-29 code = 355) BLOOD UREA NITROGEN 12 mg/dL 7-21 (BEAKER) (test code = 354) CREATININE (BEAKER) 0.63 mg/dL 0.57-1.25 (test code = 358) GLUCOSE RANDOM 179 mg/dL 70-105 H (BEAKER) (test code = 652) CALCIUM (BEAKER) 9.5 mg/dL 8.4-10.2 (test code = 697) AST (SGOT) (BEAKER) 54 U/L 5-34 H (test code = 353) ALT (SGPT) (BEAKER) 47 U/L 6-55 (test code = 347) EGFR (BEAKER) (test 100 ESTIMATE D GFR IS code = 1092) mL/min/1.73 sq NOT ACCURA TE m CREATININE CLEARANCE IN PREDICTING GLOMERULAR FILTRATION RATE . ESTIMATED GFR I S NOT APPLICABLE FOR DIALYSIS PATIEN TS. Nicker ID - SATISH FSpecimen moderately ictericPROTHROMBIN TIME/INR 2021-06-03 11:36:32 Test Item Value Reference Range Interpretation Comments PROTIME (BEAKER) 12.9 seconds 11.9-14.2 (test code = 759) INR (BEAKER) (test 0.99 See_Comment [Automat ed message] code = 370) The system [employer] generated this result transmitted ref erence range: <=5.90. The reference range was not used to int erpret this result as normal/abnormal . RECOMMENDED COUMADIN/WARFARIN INR THERAPY RANGESSTANDARD DOSE: 2.0 - 3.0 Includes: PROPHYLAXIS forvenous thrombosis, systemic embolization; TREATMENT for venous thrombosis and/or pulmonary embolus.HIGH RISK: Target INR is 2.5-3.5 for patients with mechanical heart valves.POCT-GLUCOSE [id number] 11:33:50 Test Item Value Reference Range Interpretation Comments POC-GLUCOSE METER 181 mg/dL 70-110 H : TESTED A T [facility] 6720 (BEAKER) (test code = [place], 1538) [id number]: Nicker/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 ID = [id number] for MIHIR DIAZ CBC W/PLT COUNT & AUTO [id number] 11:25:11 Test Item Value Reference Range Interpretation Comments WHITE BLOOD CELL COUNT (BEAKER) 7.2 K/ L 3.5-10.5 (test code = 775) RED BLOOD CELL COUNT (BEAKER) 5.01 M/ L 3.93-5.22 (test code = 761) HEMOGLOBIN (BEAKER) (test code = 13.5 GM/DL 11.2-15.7 410) HEMATOCRIT (BEAKER) (test code = 39.9 % 34.1-44.9 411) MEAN CORPUSCULAR VOLUME (BEAKER) 79.6 fL 79.4-94.8 (test code = 753) MEAN CORPUSCULAR HEMOGLOBIN 26.9 pg 25.6-32.2 (BEAKER) (test code = 751) MEAN CORPUSCULAR HEMOGLOBIN CONC 33.8 GM/DL 32.2-35.5 (BEAKER) (test code = 752) RED CELL DISTRIBUTION WIDTH 16.9 % 11.7-14.4 H (BEAKER) (test code = 412) PLATELET COUNT (BEAKER) (test 288 K/CU MM 150-450 code = 756) MEAN PLATELET VOLUME (BEAKER) 10.6 fL 9.4-12.3 (test code = 754) NUCLEATED RED BLOOD CELLS 0 /100 WBC 0-0 (BEAKER) (test code = 413) NEUTROPHILS RELATIVE PERCENT 70 % (BEAKER) (test code = 429) LYMPHOCYTES RELATIVE PERCENT 19 % (BEAKER) (test code = 430) MONOCYTES RELATIVE PERCENT 6 % (BEAKER) (test code = 431) EOSINOPHILS RELATIVE PERCENT 4 % (BEAKER) (test code = 432) BASOPHILS RELATIVE PERCENT 1 % (BEAKER) (test code = 437) NEUTROPHILS ABSOLUTE COUNT 5.04 K/ L 1.56-6.13 (BEAKER) (test code = 670) LYMPHOCYTES ABSOLUTE COUNT 1.38 K/ L 1.18-3.74 (BEAKER) (test code = 414) MONOCYTES ABSOLUTE COUNT (BEAKER) 0.44 K/ L 0.24-0.36 H (test code = 415) EOSINOPHILS ABSOLUTE COUNT 0.27 K/ L 0.04-0.36 (BEAKER) (test code = 416) BASOPHILS ABSOLUTE COUNT (BEAKER) 0.05 K/ L 0.01-0.08 (test code = 417) IMMATURE GRANULOCYTES-RELATIVE 0 % 0-1 PERCENT (BEAKER) (test code = 2207)
[2021-07-06] MEDS ORDERED: ONDANSETRON 4 MG/2 ML VIAL ONE (23:34)
[2021-07-06] MEDS ORDERED: FAMOTIDINE 20 MG/2 ML VIAL IV ONE (23:35)
[2021-07-06] MEDS ORDERED: NA CHLORIDE 0.9% 1,000 ML ONE (23:35)
[2021-07-07 00:38] LABS: SARS-COV-2 RT PCR NEGATIVE (NEGATIVE)
[2021-07-07 01:10] LABS: Hematocrit 50.3 % (36.0-45.0); Lymphocytes % 5.3 % (15.3-44.8); MPV 8.9 fL (7.6-11.3); RBC Red Blood Cell Count 6.22 M/uL (3.86-4.86)
[2021-07-07] MEDS ORDERED: NA CHLORIDE 0.9% 1,000 ML ONE (02:00)
[2021-07-07 02:05] LABS: Albumin 4.1 g/dL (3.4-5.0); Bilirubin Total 2.6 mg/dL (0.2-1.0); Potassium 4.6 mmol/L (3.5-5.1); Protein, Total 10.3 g/dL (6.4-8.2)
[2021-07-07 02:07] LABS: Troponin High Sensitivity 105.1 pg/mL (<58.9)
[2021-07-07 02:33] LABS: Blood Morphology Comment NOT SEEN (NOT SEEN); Platelet Estimate ADEQ
[2021-07-07] MEDS ORDERED: PIPERACIL/TAZO 3.375 GM VIAL IV ONE (02:39)
[2021-07-07] MEDS ORDERED: NA CHLORIDE 0.9% 100 ML ONE (02:39)
[2021-07-07] MEDS ORDERED: ONDANSETRON 4 MG/2 ML VIAL ONE (03:19)
[2021-07-07 03:35] LABS: Urine Blood 3+ (Negative); Urine Glucose Negative (Negative); Urine Protein 2+ (Negative); Urine Specific Gravity >=1.030 (1.005-1.030)
[2021-07-07] MEDS ORDERED: MORPHINE 4 MG/ML SYR ONE (04:30)
[2021-07-07 04:57] LABS: Arterial Blood Carboxyhemoglob 0.7 % (0-1.5); Blood Gas Oxyhemoglobin 92.5 % (94-97); Blood O2 Saturation 94.2 % (92-98.5)
[2021-07-07 06:19] LABS: BUN Blood Urea Nitrogen 92 mg/dL (7-18); Bicarbonate 21 mmol/L (21-32); Glucose Level 138 mg/dL (74-106); Potassium 5.1 mmol/L (3.5-5.1); Sodium Level 127 mmol/L (136-145)
--- NOTE | 2021-07-07 07:00 | EDPHYS ---
Physician Documentation [facility] Name: Katie Santiago Age: 51 yrs Sex: Female : 1970 Arrival Date: 07/06/2021 Time: 22:18 Bed 15 Private MD: ED Physician Joaquin Gonzales HPI: 07/06 23:12 This 51 yrs old Female presents to ER via EMS with complaints of Nausea and mh7 vomiting. Generalized weakness.. 23:12 The patient presents to the emergency department with nausea, that is moderate, mh7 vomiting, that is intermittent, described as clear fluid. Onset: The symptoms/episode began/occurred 1 week(s) ago. Possible causes: flare up of bowel problem, Biliary cancer. The symptoms are aggravated by food , The symptoms are alleviated by nothing. Associated signs and symptoms: Pertinent positives: anorexia, nausea, vomiting, Pertinent negatives: abdominal pain, belching, constipation, diarrhea, dysuria, fever, flatulence, GI bleeding, hematuria, vaginal discharge. Severity of symptoms: At their worst the symptoms were moderate 4 day(s) ago, in the emergency department the symptoms are unchanged. Patient reports nausea vomiting for 1 week. She has had generalized fatigue/weakness as well. She fell today and hit her head on bathroom floor and family called EMS to bring to the hospital for evaluation. There was no known LOC. She states she did feel dizzy/lightheaded prior to falling. She denies any chest pain, shortness of breath, fever, cough, abdominal pain, diarrhea, dysuria, numbness/tingling, or focal weakness.. 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 Date received February 2021. - Social history:: Smoking status: Patient denies any tobacco usage or history of. Patient uses alcohol, occasionally. Patient/guardian denies using. ROS: 23:12 Constitutional: Negative for fever, chills, and weight loss, Eyes: Negative for injury, mh7 pain, redness, and discharge, ENT: Negative for injury, pain, and discharge, Neck: Negative for injury, pain, and swelling, Cardiovascular: Negative for chest pain, palpitations, and edema, Respiratory: Negative for shortness of breath, cough, wheezing, and pleuritic chest pain, Back: Negative for injury and pain, : Negative for injury, bleeding, discharge, and swelling, MS/Extremity: Negative for injury and deformity, Skin: Negative for injury, rash, and discoloration, Psych: Negative for depression, anxiety, suicide ideation, homicidal ideation, and hallucinations, Allergy/Immunology: Negative for hives, rash, and allergies, Endocrine: Negative for neck swelling, polydipsia, polyuria, polyphagia, and marked weight changes, Hematologic/Lymphatic: Negative for swollen nodes, abnormal bleeding, and unusual bruising. Exam: 23:12 Head/Face: Normocephalic, atraumatic. Neck: Trachea midline, no thyromegaly or masses mh7 palpated, and no cervical lymphadenopathy. Supple, full range of motion without nuchal rigidity, or vertebral point tenderness. No Meningismus. Chest/axilla: Normal chest wall appearance and motion. Nontender with no deformity. No lesions are appreciated. 23:12 Respiratory: Lungs have equal breath sounds bilaterally, clear to auscultation and percussion. No rales, rhonchi or wheezes noted. No increased work of breathing, no retractions or nasal flaring. 23:12 Back: No spinal tenderness. No costovertebral tenderness. Full range of motion. Skin: Warm, dry with normal turgor. Normal color with no rashes, no lesions, and no evidence of cellulitis. MS/ Extremity: Pulses equal, no cyanosis. Neurovascular intact. Full, normal range of motion. 23:12 Psych: Awake, alert, with orientation to person, place and time. Behavior, mood, and affect are within normal limits. 23:12 Constitutional: The patient appears in no acute distress, alert, awake, uncomfortable. 23:12 Cardiovascular: Rate: tachycardic, Rhythm: regular, Pulses: no pulse deficits are appreciated, Heart sounds: normal, normal S1and S2, Edema: is not appreciated, JVD: is not appreciated. 23:12 Abdomen/GI: Inspection: Right upper quadrant drain in place, clean dry and intact, Bowel sounds: normal, in all quadrants, Palpation: abdomen is soft and non-tender, in all quadrants, Rectal exam: the exam is deferred, because of patient request, Indicators: McBurney's point is not tender, Trevino's sign is negative, Rovsing's sign is negative, Obturator sign is negative, Psoas sign is negative, Liver: no appreciated palpable abnormalities, Hernia: not appreciated. 23:12 Neuro: Orientation: is normal, Mentation: is normal, Memory: is normal, Cranial nerves: grossly normal, Cerebellar function: is grossly normal, Motor: is normal, Sensation: is normal, Gait: not tested. seizure activity, is not displayed by the patient, Abnormal movements: there are no abnormal movements. Vital Signs: 22:31 BP 101 / 85; Pulse 108; Resp 20; Temp 96.7; Pulse Ox 93% on R/A; Weight 72.12 kg; vc1 Height 5 ft. 1 in. (154.94 cm); Pain 8/10; 07/07 00:18 BP 119 / 88; Pulse 102; Resp 18; Pain 0/10; vc1 01:00 BP 124 / 101; Pulse 90; Resp 16; Pulse Ox 98% on R/A; vc1 02:00 BP 127 / 102; Pulse 97; Resp 15; Pulse Ox 97% on R/A; Pain 0/10; vc1 03:00 BP 122 / 88; Pulse 93; Resp 16; Pulse Ox 98% on R/A; vc1 04:00 BP 112 / 87; Pulse 97; Resp 15; Pulse Ox 99% on R/A; vc1 05:00 BP 110 / 83; Pulse 90; Resp 14; Pulse Ox 97% on R/A; vc1 06:00 BP 113 / 83; Pulse 91; Resp 15; Pulse Ox 95% on R/A; vc1 08:00 BP 117 / 94; Pulse 88; Resp 17; Pulse Ox 97% on R/A; tk1 07/06 22:31 Body Mass Index 30.04 (72.12 kg, 154.94 cm) vc1 MDM: 06:55 Differential diagnosis: Nonspecific abd pain, gastritis, pancreatitis, diverticulitis, mh7 viral gastroenteritis, gastroenteritis. Data reviewed: vital signs, nurses notes, old medical records, lab test result(s), cardiac enzymes, CBC, electrolytes, Flu: negative urinalysis, EKG, radiologic studies, CT scan, plain films. Data interpreted: Pulse oximetry: on room air is 95 %. Interpretation: normal. Counseling: I had a detailed discussion with the patient and/or guardian regarding: the historical points, exam findings, and any diagnostic results supporting the discharge/admit diagnosis, lab results, radiology results, the need for further work-up and treatment in the hospital. Response to treatment: the patient's symptoms have mildly improved after treatment. ED course: Feeling better, no acute distress, vitals are stable, no focal neurological deficits. Patient requested transfer to [facility] in the [facility] to continue care with her doctors there.. 06:59 Patient medically screened. [facility] 07/06 23:08 Order name: Basic Metabolic Panel [facility] 07/06 23:08 Order name: CBC with Diff; Complete Time: 04:29 [facility] 07/06 23:08 Order name: Hepatic Function; Complete Time: 02:10 [facility] 07/06 23:08 Order name: Lipase; Complete Time: 02:10 [facility] 07/06 23:08 Order name: Troponin High Sensitivity; Complete Time: 02:10 [facility] 07/06 23:08 Order name: Blood Culture Adult (2) [facility] 07/06 23:09 Order name: Basic Metabolic Panel; Complete Time: 02:10 [facility] 07/06 23:10 Order name: COVID-19/FLU A+B (Document "Date of Onset" if Symptomatic); Complete Time: [facility] 07/07 01:15 Order name: Manual Differential; Complete Time: 04:29 [facility] 07/07 02:11 Order name: Lactate; Complete Time: 05:58 [facility] 07/07 02:11 Order name: Procalcitonin [facility] 07/07 02:13 Order name: Urine Culture [facility] 07/07 03:34 Order name: Urine Dipstick-Ancillary; Complete Time: 04:29 [facility] 07/07 04:37 Order name: Ketone, Serum [facility] 07/06 23:08 Order name: EKG; Complete Time: 23:09 [facility] 07/06 23:12 Order name: CT Head Brain wo Cont [facility] 07/07 02:10 Order name: Abdomen [facility] 07/07 02:12 Order name: Chest Single View XRAY [facility] 07/07 04:37 Order name: Arterial Blood Gas: VBG [facility] 07/07 04:37 Order name: Acetone Level; Complete Time: 06:26 [facility] 07/07 04:37 Order name: ABG Arterial Blood Gas; Complete Time: 05:18 [facility] 07/07 04:37 Order name: BMP; Complete Time: 06:26 [facility] 07/06 23:08 Order name: IV Saline Lock; Complete Time: 23:44 [facility] 07/06 23:08 Order name: Labs collected and sent; Complete Time: 23:44 [facility] 07/06 23:08 Order name: EKG - Nurse/Tech; Complete Time: 23:44 [facility] 07/06 23:08 Order name: Urine Dipstick-Ancillary (obtain specimen); Complete Time: 06:35 [facility] 07/07 00:30 Order name: Labs - recollect needed; Complete Time: 01:08 lp1 Administered Medications: 07/06 23:43 Drug: Zofran (Ondansetron) 4 mg Route: IVP; Site: left antecubital; 1 07/07 00:18 Follow up: Response: No adverse reaction [facility] 07/06 23:43 Drug: Pepcid (famotidine) 20 mg Route: IVP; Site: left antecubital; 1 07/07 00:18 Follow up: Response: No adverse reaction [facility] 07/06 23:43 Drug: NS 0.9% 1000 ml Route: IV; Rate: 1000 ml; Site: left antecubital; [facility] 07/07 02:04 Drug: NS 0.9% 1000 ml Route: IV; Rate: 1000 ml; Site: left antecubital; vc1 03:00 Dru.375 grams of (Zosyn (piperacillin-tazobactam) 3.375 grams, NS 0.9% 100 ml) vc1 Route: IVPB; Rate: 100 ml/hr; Infused Over: 60 mins; Site: left antecubital; Delivery: Primary tubing; 04:21 Follow up: Response: No adverse reaction; IV Status: Completed infusion; IV Intake: vc1 100ml 03:10 Drug: Zofran (Ondansetron) 4 mg Route: IVP; Site: left antecubital; vc1 06:33 Follow up: Response: No adverse reaction vc1 04:38 Drug: morphine 4 mg Route: IVP; Site: right antecubital; vc1 06:34 Follow up: Response: No adverse reaction vc1 Disposition Summary: 07/07/21 06:59 Transfer Ordered Transfer Location: [place] [id number] Reason: Patient request [facility] Condition: Stable [facility] Problem: an ongoing problem 7 Symptoms: have improved mh7 Accepting Physician: Dr. Jacobs(07/07/21 08:25) tk1 Diagnosis - Dehydration mh7 - Nausea with vomiting, unspecified mh7 - Hypo-osmolality and hyponatremia mh7 - Biliary acute pancreatitis mh7 - Biliary cancer with biliary stent entering mh7 - Elevated troponin level [facility] Forms: - Medication Reconciliation Form 7 - SBAR form 7 Signatures: Dispatcher [employer] EDKatina Powell RN RN lp1 Joaquin Gonzales MD MD mh7 Luda Nixon tk1 Erna Blackwell RN RN vc1 Corrections: (The following items were deleted from the chart) 02:10 07/06 23:12 Abdomen Pelvis W Con+CT.RAD.BRZ ordered. [facility] 07/07 08:25 06:59 Dr. Jacobs mh7 tk1
--- NOTE | 2021-07-07 07:00 | ER ---
Nurse's Notes [facility] Name: Katie Santiago Age: 51 yrs Sex: Female : 1970 Arrival Date: 07/06/2021 Time: 22:18 Bed 15 Private MD: Diagnosis: Dehydration;Nausea with vomiting, unspecified;Hypo-osmolality and hyponatremia;Biliary acute pancreatitis;Biliary cancer with biliary stent entering;Elevated troponin level Presentation: 07/06 22:28 Chief complaint: EMS states: We were called because she fell in the bathroom, she was vc1 extremely weak and had been vomiting all day. Chief complaint: Patient states: I was discharged the before [facility] from [facility] in [place]. Since I've been home I haven't been able to eat or drink much. Today I have been nauseous and vomiting all day. Coronavirus screen: Vaccine status:. 22:28 Method Of Arrival: EMS: [facility] vc1 22:31 Coronavirus screen: Vaccine status: Patient reports receiving the 1st dose of the Covid vc1 vaccine. Client denies travel out of the [place] in the last 14 days. nausea, vomiting. Ebola Screen: No symptoms or risks identified at this time. Initial Sepsis Screen: Does the patient meet any 2 criteria? Temp <36.0*C (96.8*F)) or > 38.3*C (100.9*F). HR > 90 bpm. No. Patient's initial sepsis screen is negative. Does the patient have a suspected source of infection? No. Patient's initial sepsis screen is negative. Risk Assessment: Do you want to hurt yourself or someone else? Patient reports no desire to harm self or others. Onset of symptoms was July 06, 2021. 22:31 Acuity: ERIN 2 vc1 Triage Assessment: 22:36 General: Appears uncomfortable, ill, Behavior is cooperative, appropriate for age. vc1 Pain: Denies pain. 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 Date received February 2021. - Social history:: Smoking status: Patient denies any tobacco usage or history of. Patient uses alcohol, occasionally. Patient/guardian denies using. Screenin:13 Abuse screen: Denies threats or abuse. Nutritional screening: Has had N/V for 3 or more vc1 days. Tuberculosis screening: No symptoms or risk factors identified. Fall Risk Fall in past 12 months (25 points). IV access (20 points). Assessment: 07/07 00:15 General: Appears ill, Behavior is calm, cooperative, appropriate for age. Pain: Denies vc1 pain. Neuro: Level of Consciousness is alert, obeys commands, lethargic, Oriented to person, place, time, situation, Appropriate for age Reports dizziness, weakness. Cardiovascular: No deficits noted. Respiratory: No deficits noted. GI: Abdomen is round non-distended, clamped. Site clean. Drainage tube noted in right upper quadrant. GI: Abd is soft and non tender X 4 quads. : No deficits noted. Derm: Skin temperature is cool. 01:08 Reassessment: Patient appears in no apparent distress at this time. Patient and/or vc1 family updated on plan of care and expected duration. Pain level reassessed. Patient is alert, oriented x 3, equal unlabored respirations, skin warm/dry/pink. Patient denies pain at this time. Patient states symptoms have improved. 02:10 Reassessment: Patient appears in no apparent distress at this time. Patient and/or vc1 family updated on plan of care and expected duration. Pain level reassessed. Patient is alert, oriented x 3, equal unlabored respirations, skin warm/dry/pink. Patient denies pain at this time. Patient states symptoms have improved. Neuro: Level of Consciousness is obeys commands, lethargic, Oriented to. 03:00 Reassessment: No changes from previously documented assessment. Patient and/or family vc1 updated on plan of care and expected duration. Pain level reassessed. Patient is alert, oriented x 3, equal unlabored respirations, skin warm/dry/pink. 04:00 Reassessment: Patient and/or family updated on plan of care and expected duration. Pain vc1 level reassessed. Patient is alert, oriented x 3, equal unlabored respirations, skin warm/dry/pink. Patient states feeling better. Patient states symptoms have improved. 05:00 Reassessment: Patient appears in no apparent distress at this time. Patient and/or vc1 family updated on plan of care and expected duration. Pain level reassessed. Patient is alert, oriented x 3, equal unlabored respirations, skin warm/dry/pink. Patient denies pain at this time. 06:16 Reassessment: No changes from previously documented assessment. Patient and/or family vc1 updated on plan of care and expected duration. Pain level reassessed. Patient is alert, oriented x 3, equal unlabored respirations, skin warm/dry/pink. Patient states feeling better. Patient states symptoms have improved. 06:35 Reassessment: Patient appears in no apparent distress at this time. Patient and/or vc1 family updated on plan of care and expected duration. Pain level reassessed. Patient is alert, oriented x 3, equal unlabored respirations, skin warm/dry/pink. Patient denies pain at this time. Patient states feeling better. Patient states symptoms have improved. General: Appears in no apparent distress. Behavior is calm, cooperative, appropriate for age, Daughter at bedside. 07:00 Reassessment: RECD REPORT FROM FAROOQ COSTA. 51YO HF P/W GEN WEAKNESS AND VOMITING. tk1 TRANSFER IN PROCESS. 08:16 Reassessment: REPORT TO GERMÁN COSTA AT [facility] FOR RM 934. tk1 08:25 Reassessment: PT [facility] WITH EMS TRANSPORT. tk1 Vital Signs: 07/06 22:31 BP 101 / 85; Pulse 108; Resp 20; Temp 96.7; Pulse Ox 93% on R/A; Weight 72.12 kg; vc1 Height 5 ft. 1 in. (154.94 cm); Pain 8/10; 07/07 00:18 BP 119 / 88; Pulse 102; Resp 18; Pain 0/10; vc1 01:00 BP 124 / 101; Pulse 90; Resp 16; Pulse Ox 98% on R/A; vc1 02:00 BP 127 / 102; Pulse 97; Resp 15; Pulse Ox 97% on R/A; Pain 0/10; vc1 03:00 BP 122 / 88; Pulse 93; Resp 16; Pulse Ox 98% on R/A; vc1 04:00 BP 112 / 87; Pulse 97; Resp 15; Pulse Ox 99% on R/A; vc1 05:00 BP 110 / 83; Pulse 90; Resp 14; Pulse Ox 97% on R/A; vc1 06:00 BP 113 / 83; Pulse 91; Resp 15; Pulse Ox 95% on R/A; vc1 08:00 BP 117 / 94; Pulse 88; Resp 17; Pulse Ox 97% on R/A; tk1 07/06 22:31 Body Mass Index 30.04 (72.12 kg, 154.94 cm) vc1 ED Course: 07/06 22:18 Patient arrived in ED. mw2 22:28 Farooq Blackwell, RN is Primary Nurse. vc1 22:36 Triage completed. vc1 22:38 Arm band placed on right wrist. vc1 22:40 Patient has correct armband on for positive identification. Bed in low position. Call vc1 light in reach. Side rails up X 1. Adult w/ patient. 22:52 Joaquin Gonzales MD is Attending Physician. 7 23:43 COVID-19/FLU A+B (Document "Date of Onset" if Symptomatic) Sent. vc1 07/07 02:27 CT Head Brain wo Cont In Process Unspecified. EDMS 02:27 Abdomen In Process Unspecified. EDMS 02:44 Chest Single View XRAY In Process Unspecified. EDMS 03:35 initiated a transfer with Mansi from [facility]. mw2 06:34 Arterial Blood Gas: VBG Sent. vc1 06:35 Ketone, Serum Sent. vc1 06:35 Basic Metabolic Panel Sent. vc1 06:39 Spoke with Mansi at [facility], faxed new labs requested per Dr. Jacobs will [facility] call back for Doc to Doc. Administered Medications: 07/06 23:43 Drug: Zofran (Ondansetron) 4 mg Route: IVP; Site: left antecubital; vc1 07/07 00:18 Follow up: Response: No adverse reaction vc1 07/06 23:43 Drug: Pepcid (famotidine) 20 mg Route: IVP; Site: left antecubital; vc1 07/07 00:18 Follow up: Response: No adverse reaction vc1 07/06 23:43 Drug: NS 0.9% 1000 ml Route: IV; Rate: 1000 ml; Site: left antecubital; vc1 07/07 02:04 Drug: NS 0.9% 1000 ml Route: IV; Rate: 1000 ml; Site: left antecubital; vc1 03:00 Dru.375 grams of (Zosyn (piperacillin-tazobactam) 3.375 grams, NS 0.9% 100 ml) vc1 Route: IVPB; Rate: 100 ml/hr; Infused Over: 60 mins; Site: left antecubital; Delivery: Primary tubing; 04:21 Follow up: Response: No adverse reaction; IV Status: Completed infusion; IV Intake: vc1 100ml 03:10 Drug: Zofran (Ondansetron) 4 mg Route: IVP; Site: left antecubital; vc1 06:33 Follow up: Response: No adverse reaction vc1 04:38 Drug: morphine 4 mg Route: IVP; Site: right antecubital; vc1 06:34 Follow up: Response: No adverse reaction vc1 Intake: 04:21 IV: 100ml; Total: 100ml. vc1 Outcome: 06:59 ER care complete, transfer ordered by MD. pritchard 08:25 Patient left the ED. tk1 Signatures: Dispatcher [employer] EDMS Katina Miranda RN RN lp1 Panfilo Dacosta mw2 Joaquin Gonzales MD MD 7 Luda Nixon tk1 Farooq Blackwell RN RN vc1 Corrections: (The following items were deleted from the chart) 06:40 06:38 Reassessment: Spoke with Mansi at [facility], faxed new labs requested per lp1 Dr. Jacobs, will call back for Doc to Doc report lp1
[2021-07-07 08:34] VITALS: TEMP 96.7
[2021-07-07 08:58] VITALS: BP 117/94; O2SAT 97
--- NOTE | 2021-07-07 12:50 | RAD REPORT ---
EXAM DESCRIPTION: CT - Head Brain Wo Cont - 07/07/2021 6:46 am CLINICAL HISTORY: SEIZURE COMPARISON: 01/08/2020 TECHNIQUE: Axial CT of the head obtained from the skull apex to the skull base without contrast. Thi s exam was performed according to our departmental dose-optimization program, which includes automate d exposure control, adjustment of the mA and/or kV according to patient size and/or use of iterative reconstruction technique. FINDINGS: No acute intracranial hemorrhage identified. No mass, mass effect, shift of the midline, a bnormal extra-axial fluid collection or CT evidence of acute ischemic change identified. The ventricu lar system is unremarkable. No acute abnormalities of the supratentorial white matter, basal gangli a, cerebellum, or brainstem. Mucosal thickening of paranasal sinuses. Mastoid air cells are well aerated. No skull fracture identi fied. Visualized orbits and globes are unremarkable. Stable appearance of the nasal bones. IMPRESSION: 1. No acute intracranial abnormality identified. Electronically signed by: Som Lozoya 07/07/2021 2:15 AM ENGINEERING LECTURER Due to temporary technical issues with the PACS/Fluency reporting system, reports are being signed by the in house radiologist without review as a courtesy to ensure prompt reporting. The interpreting r adiologist is fully responsible for the content of the report.
--- NOTE | 2021-07-07 12:53 | RAD REPORT ---
EXAM DESCRIPTION: RAD - Chest Single View - 07/07/2021 2:44 am CLINICAL HISTORY: CONGESTION COMPARISON: 06/03/2021 FINDINGS: Single frontal radiograph view of the chest. Cardiomediastinal silhouette: Normal size and contour. Lungs: No consolidation, pneumothorax, or pleural effusion. Low lung volumes. Mild elevation the righ t hemidiaphragm is stable. Bones: No acute osseous abnormality. Upper abdomen: No abnormality identified. IMPRESSION: 1. No acute pulmonary process identified. Electronically signed by: Som Lozoya 07/07/2021 3:04 AM HELPDESK ADMINISTRATOR Due to temporary technical issues with the PACS/Fluency reporting system, reports are being signed by the in house radiologist without review as a courtesy to ensure prompt reporting. The interpreting r adiologist is fully responsible for the content of the report.
--- NOTE | 2021-07-07 12:55 | RAD REPORT ---
EXAM DESCRIPTION: CT - Abdomen Pelvis Wo Contrast - 07/07/2021 6:45 am CLINICAL HISTORY: The patient is 51 years old and is Female; NAUSEA / VOMITING TECHNIQUE: Axial computed tomography images of the abdomen and pelvis without intravenous contrast. Sagittal and coronal reformatted images were created and reviewed. This CT exam was performed usi ng one or more of the following dose reduction techniques: automated exposure control, adjustment o f the mA and/or kV according to patient size, and/or use of iterative reconstruction technique. COMPARISON: CT ABDOMEN PELVIS dated June 03 2021 FINDINGS: LUNG BASES: Unremarkable. No mass. No consolidation. MEDIASTINUM: A small hiatal hernia is present. ABDOMEN: LIVER: Ill-defined masslike area of low attenuation near the dome of the liver is again noted. GALLBLADDER AND BILE DUCTS: Small amount of pneumobilia is noted. Air is present with the gall bladder which is distended. PANCREAS: Unremarkable. No ductal dilation. SPLEEN: Unremarkable. ADRENALS: Unremarkable. No mass. KIDNEYS AND URETERS: No obstructing stones. No hydronephrosis. No perinephric fluid. STOMACH AND BOWEL: The stomach is distended with fluid and air. The small bowel is normal in farrukh iber. A moderate amount stool is present throughout colon. There is no mucosal thickening or evidence of bowel obstruction. PELVIS: APPENDIX: The appendix is normal in caliber without surrounding inflammation. BLADDER: The bladder is nearly empty. No stones. REPRODUCTIVE: Unremarkable as visualized. ABDOMEN and PELVIS: INTRAPERITONEAL SPACE: Unremarkable. No free air. No significant fluid collection. BONES/JOINTS: No acute fracture. SOFT TISSUES: The soft tissues are normal. VASCULATURE: Multiple calcified phleboliths are present within the pelvis. No abdominal aortic aneurysm. LYMPH NODES: Unremarkable. No enlarged lymph nodes. TUBES, LINES AND DEVICES: Evidence of anterior abdominal wall surgery is noted. Interval placeme nt of a biliary stent and biliary drain is present. IMPRESSION: 1. Interval placement of a biliary drain and biliary stent. Small amount of pneumobili a is present along with air in the gallbladder. 2. Hypodense mass within the upper right hepatic lobe is again noted though ill-defined. 3. No bowel obstruction. Electronically signed by: Meghann Rodriguez MD 07/07/2021 3:08 AM BASE BRANDER Due to temporary technical issues with the PACS/Fluency reporting system, reports are being signed by the in house radiologist without review as a courtesy to ensure prompt reporting. The interpreting r adiologist is fully responsible for the content of the report.
--- NOTE | 2021-07-09 07:32 | EKG ---
Test Date: 2021-07-06 Test Time: 23:47:32 Pharmacist Apprentice: FARHAN, MEASUREMENT RESULTS: Intervals: Rate: 103 RI: 142 QRSD: 80 QT: 356 QTc: 466 [place]: P: 28 RI: 142 QRS: -50 T: 42 INTERPRETIVE STATEMENTS: Sinus tachycardia Possible Left atrial enlargement Left axis deviation Pulmonary disease pattern Abnormal ECG Compared to ECG 06/03/2021 04:22:25 Left-axis deviation now present Sinus rhythm no longer present Electronically Signed On 07-09-21 07:26:46 DRUG INSPECTOR by Ignacio Cisneros
== END 2021-07-07 08:25 | disposition short-term general hospital (02) ==
LOC: ER 22:11
DX: E86.0 Dehydration (principal); E87.1 Hypo-osmolality and hyponatremia; K85.10 Biliary acute pancreatitis without necrosis or infection; R77.8 Other specified abnormalities of plasma proteins; C24.9 Malignant neoplasm of biliary tract, unspecified; I10 Essential (primary) hypertension; E11.9 Type 2 diabetes mellitus without complications; Z20.822 Contact with and (suspected) exposure to COVID-19
CPT/HCPCS: 93005; 87040 ×2; 87088; 85025; 87086; 80048 ×2; 36415; 82010; 87205; 80076; 83605; 81003; 84484; 83690; 84145; 0240U; 70450; 74176; 71045; 82805; J2543; J7030 ×2; J2405 ×2; 87077; 87186; 99284

== ENCOUNTER 2022-08-04 19:35 | Emergency (ER) | payer OTHER ==
--- OUTSIDE RECORDS SUMMARY | 2022-08-04 19:38 | XMS REPORT | Clinical Summary ---
:1970 Author Organization [facility] MD [facility] Address [address] [place] [address] Care Team Providers Name Role Phone Melanie Nuñez Unavailable Allergies Not on File Medications Not on file Active Problems Not on file Social History Tobacco Use Types Packs/Day Years Used Date Smoking Tobacco: Never Assessed Sex Assigned at Date Recorded Not on file Last Filed Vital Signs Not on file Plan of Treatment Not on file Results Not on fileafter 08/04/2021 Insurance Payer Benefit Plan / Subscriber ID Effective Dates Phone Addre ss Type Group [employer] MANAGED [employer] O [id number] 2018-Esteban PIPER X [id number] [facility] [place] [address] Care Teams Ground Host/Hostess Relationship Specialty Start Date End Date Melanie Nuñez PCP - External Referring Family Practice 05/30/[address] [place] [id number]
--- OUTSIDE RECORDS SUMMARY | 2022-08-04 20:02 | XMS REPORT | Continuity of Care Document ---
:1970 Author Organization [facility] t Address [address] [place] [address] Care Team Providers Name Role Phone System, Pcp Not In Primary Care Physician SYSTEM, PROVIDER NOT IN Attending Clinician Unavailable KYLER ABREU Attending Clinician Unavailable CARINE KNIGHT ABA Attending Clinician Unavailable Carine Knight MD, Aba Attending Clinician [phone] Kyler Abreu MD Attending Clinician Kyler Abreu MD Attending Clinician 1.5, [facility] Mr Attending Clinician Unavailable KYLER ABREU Attending Clinician Unavailable 1, [facility] [address] Room Attending Clinician Unavailable ERNST TALAMANTES Attending Clinician Unavailable Philip GALINDO, Priscilla Cormier Attending Clinician Griselda Mcclelland RN Attending Clinician Unavailable David Brunson Attending Clinician Unavailable Ebony Miradna Attending Clinician Unavailable LIANNE BENITO Attending Clinician Unavailable OLY WHITING Attending Clinician Unavailable Edson Valle MD Attending Clinician Michael COSTA, Alicia Attending Clinician Unavailable Drea GALINDO, Bob Attending Clinician Mary GALINDO, Alfred Attending Clinician Lianne Benito MD Attending Clinician Unavailable Reynaldo GALINDO, Jenn Moreno Attending Clinician [phone] Akila GALINDO, Anna Hicks Attending Clinician Master GALINDO, Lisa Attending Clinician Estrada GALINDO, Lupillo Attending Clinician LUPILLO GODDARD Attending Clinician Unavailable Harrison GALINDO, Halie Attending Clinician Johanne GALINDO, Oly Abel Attending Clinician [phone] Hermann GALINDO, Katya Arreguin Attending Clinician [phone] Luiz GALINDO, Goran Limon Attending Clinician Olga GALINDO, Jessica Valentine Attending Clinician [phone] EDSON VALLE Attending Clinician Unavailable Jerrell GALVAN, Yesenia Chan Attending Clinician [phone] Robinson GALINDO, Vaibhav Prescott Attending Clinician Cherry Cuevas CRNA Attending Clinician [phone] Virtual, Surgeon Attending Clinician Unavailable Antony GALINDO, Sarkis Burks Attending Clinician BOB SHEPARD Admitting Clinician Unavailable ANNA WILBURN Admitting Clinician Unavailable GORAN DEE Admitting Clinician Unavailable Payers Payer Name Policy Type Policy Number Effective Date Expiration Date Stefany hylton [employer] HMO POS [id number] 2018 00:00:00 QPOS OPEN ACCESS [id number] 2021 00:00:00 HMO/POS/EPO/PPO - AETNA Problems Condition Condition Condition Status Onset Resolution Last Treating Co mments Source Name Details Category Date Date Treatment Clinician Date Liver Liver Disease Active Last [facility] lesion lesion [address] [facility] 00:00: t & Plan: Medical 00 [facility] g of this note might be different from the original. 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 We recommend continuin g chemother apy plan with her oncologis t and return once imaging shows that the mass has moved away from the marily. Acute on Acute on Disease Active [facility] [facility] renal renal 00:00: Medical failure failure 00 Center Abdominal Abdominal Disease Active 2020-[address] [facility] pain pain 2[facility]14 [facility] Menometror Menometror Disease Active [facility] rhagia rhagia 3-20 [facility] 00:00: of 00 Medicin e Lipodystro Lipodystro Disease Active [facility] phy phy 2-09 [facility] 00:00: of 00 Medicin e Cholangioc Cholangioc Disease Active Last [facility] arcinoma arcinoma Assessmen Marielle es t & Plan: Medical [facility] g of this note might be different from the original. Liver lesion has decreased in size, continue chemother apy regimen as per Oncology. Allergies, Adverse Reactions, Alerts Allergy Allergy Status Severity Reaction(s) Onset Inactive Treating Comm ents Source Name Type Date Date Clinician Seasonal Allergy Active Other (See Sneezing [facility] Allerg[facility] to Comments) [facility]07 [facility] Medical e 00 Center SEASONAL Allergy Active Other [facility] ALLERGIE -17 S 00:00: 00 NO KNOWN Allergy Active [facility] ALLERGANI S Social History Social Habit Start Date Stop Date Quantity Comments Source Exposure to 2022-07-24 2022-08-03 Not sure [facility] barrios SARS-CoV-2 (event) 00:00:00 08:26:00 of Med icine Alcohol intake 2021-07-31 2021-07-[address] [facility] Marielle es 00:00:00 00:00:00 non-drinker of Medical Ce nter alcohol (finding) Tobacco use and 2016-01-06 2016-01-06 Never used MIKA Sanchez exposure 00:00:00 00:00:00 [facility] Cigarette 2012-07-21 2012-07-21 [facility] pack-years 00:00:00 00:00:00 of Medicine Sex [birth year] At [birth year] [facility] Sanchez 00:00:00 00:00:00 [facility] Center Smoking Status Start Date Stop Date Source Never smoked tobacco [facility] ege of Medicine Medications Ordered Filled Start Stop Current Ordering Indication Dosage Frequency Signature Comments Components Source Medication Medication Date Date Medication? Clinician (SIG) Name Name LISINOPRIL 2022-0 Yes 20mg Take 20 mg [facility] 2-13 by mouth College 08:45: daily. of 53 Medicin e lidocaine-p 2022-0 Yes [id number] 1{appli Apply 1 [facility] rilocaine 2-13 cation} applicatio C ollege (EMLA) 00:00: n of 2.5-2.5 % 00 topically Medic in cream as needed e for Other. ondansetron 2022-0 Yes [id number] 4mg Take 1 [facility] (ZOFRAN-ODT 2-13 Tablet by Col [facility]ett ) 4 mg 00:00: mouth of disintegrat 00 every 8 Medic in ing tablet hours as e needed for Nausea. loperamide 2022-0 Yes [id number] 2mg Take 1 [facility] (IMODIUM 2-13 capsule by Jory Mack) 2 MG 00:00: mouth 4 of capsule 00 times Medicin daily as e needed for Diarrhea. LISINOPRIL 2022-0 Yes 20mg Take 20 mg [facility] 1-25 by mouth College 08:56: daily. of 25 Medicin e LISINOPRIL 2022-0 Yes 20mg Take 20 mg [facility] 1-25 by mouth [facility] 08:56: daily. of 25 Medicin e LISINOPRIL 2022-0 Yes 20mg Take 20 mg [facility] 1-11 by mouth College 11:08: daily. of 57 Medicin e gabapentin 3-0 Yes [id number] TAKE ONE [facility] (NEURONTIN) 1-09 (1) [facility] 100 MG 00:00: CAPSULE(S) of capsule 00 BY MOUTH Medicin THREE e TIMES A DAY. gabapentin 2023-0 Yes [id number] TAKE ONE [facility] (NEURONTIN) - (1) College 100 MG 00:00: CAPSULE(S) of capsule 00 BY MOUTH Medicin THREE e TIMES A DAY. gabapentin 2022-0 Yes [id number] TAKE ONE [facility] (NEURONTIN) 06-29 (1) [place] 100 MG 00:00: CAPSULE(S) of capsule 00 BY MOUTH Medicin THREE e TIMES A DAY. gabapentin 2022-0 Yes [id number] TAKE ONE [facility] (NEURONTIN) 06-29 (1) [place] 100 MG 00:00: CAPSULE(S) of capsule 00 BY MOUTH Medicin THREE e TIMES A DAY. capecitabin 0 Yes TAKE 4 [facility] (XELODA) 1-03 TABLETS BY Col lege 500 MG 00:00: MOUTH of tablet 00 EVERY Medicin MORNING e AND 3 TABLETS BY MOUTH EVERY EVENING FOR 14 DAYS ON AND 7 DAYS OFF capecitabin 2022-0 Yes TAKE 4 [facility] (XELODA) 1-03 TABLETS BY Col lege 500 MG 00:00: MOUTH of tablet 00 EVERY Medicin MORNING e AND 3 TABLETS BY MOUTH EVERY EVENING FOR 14 DAYS ON AND 7 DAYS OFF capecitabin 2022-0 Yes TAKE 4 [facility] (XELODA) 1-03 TABLETS BY Col lege 500 MG 00:00: MOUTH of tablet 00 EVERY Medicin MORNING e AND 3 TABLETS BY MOUTH EVERY EVENING FOR 14 DAYS ON AND 7 DAYS OFF capecitabin 2022-0 Yes TAKE 4 [facility] (XELODA) 1-03 TABLETS BY Col lege 500 MG 00:00: MOUTH of tablet 00 EVERY Medicin MORNING e AND 3 TABLETS BY MOUTH EVERY EVENING FOR 14 DAYS ON AND 7 DAYS OFF lisinopril 2021- Yes [id number] TAKE ONE [facility] (PRINIVIL, 2-18 (1) TABLET Col lege ZESTRIL) 20 00:00: BY MOUTH of MG tablet 00 DAILY. Medicin e lisinopril 2021-06 Yes [id number] TAKE ONE [facility] (PRINIVIL, 2-18 (1) TABLET Col lege ZESTRIL) 20 00:00: BY MOUTH of MG tablet 00 DAILY. Medicin e lisinopril 2021-06 Yes [id number] TAKE ONE [facility] (PRINIVIL, 2-18 (1) TABLET Col lege ZESTRIL) 20 00:00: BY MOUTH of MG tablet 00 DAILY. Medicin e lisinopril 2021-06 Yes [id number] TAKE ONE [facility] (PRINIVIL, 2-18 (1) TABLET Col lege ZESTRIL) 20 00:00: BY MOUTH of MG tablet 00 DAILY. Medicin e LISINOPRIL 2021-06 Yes 20mg Take 20 mg [facility] 2-14 by mouth [place] 10:19: daily. of 18 Medicin e capecitabin 2021-06 Yes TAKE 4 [facility] (XELODA) 1-20 TABLETS BY Col lege 500 MG 00:00: MOUTH of tablet 00 EVERY Medicin MORNING e AND 3 TABLETS BY MOUTH EVERY EVENING FOR 14 DAYS ON AND 7 DAYS OFF LISINOPRIL 2021-06 Yes 20mg Take 20 mg [facility] 1-16 by mouth [place] 10:07: daily. of 11 Medicin e metformin 2021-06 Yes [id number] 500mg Take 1 [facility] (GLUCOPHAGE 1-16 Tablet by Col lege ) 500 MG 00:00: mouth 2 of tablet 00 times Medicin daily e (with meals). lisinopril 2021-06 Yes [id number] 20mg Take 1 [facility] (PRINIVIL, 1-16 Tablet by Rafael ege ZESTRIL) 20 00:00: mouth of MG tablet 00 daily. Medicin e metformin 2021-06 Yes [id number] 500mg Take 1 [facility] (GLUCOPHAGE 1-16 Tablet by Col lege ) 500 MG 00:00: mouth 2 of tablet 00 times Medicin daily e (with meals). lisinopril 2021-06 Yes [id number] 20mg Take 1 [facility] (PRINIVIL, 1-16 Tablet by Rafael ege ZESTRIL) 20 00:00: mouth of MG tablet 00 daily. Medicin e metformin 2021-06 Yes [id number] 500mg Take 1 [facility] (GLUCOPHAGE 1-16 Tablet by Col lege ) 500 MG 00:00: mouth 2 of tablet 00 times Medicin daily e (with meals). metformin 2021-06 Yes [id number] 500mg Take 1 [facility] (GLUCOPHAGE 1-16 Tablet by Col [facility]ge ) 500 MG 00:00: mouth 2 of tablet 00 times Medicin daily e (with meals). metformin 2021-06 Yes [id number] 500mg Take 1 [facility] (GLUCOPHAGE 1-16 Tablet by Col lege ) 500 MG 00:00: mouth 2 of tablet 00 times Medicin daily e (with meals). metformin 2021-06 Yes [id number] 500mg Take 1 [facility] (GLUCOPHAGE 1-16 Tablet by Col lege ) 500 MG 00:00: mouth 2 of tablet 00 times Medicin daily e (with meals). capecitabin 2021-06 Yes Take 4 [facility] (XELODA) 0-28 tablets in Col lege 500 MG 00:00: the of tablet 00 morning Medicin and 3 e tablets in evening for 14 days, then 7 days off on 21 day cycle. Emollient 2021-06 Yes Apply to [facility] (UDDERLY 0-28 palms/sole Colle [facility] SMOOTH 00:00: s of feet of EXTRA CARE) 00 twice Medicin CREA daily to e prevent blisters from capecitabi ne. Emollient 2021-06 Yes Apply to [facility] (UDDERLY 0-28 palms/sole Colle ge SMOOTH 00:00: s of feet of EXTRA CARE) 00 twice Medicin CREA daily to e prevent blisters from capecitabi ne. Emollient 2021-06 Yes Apply to [facility] (UDDERLY 0-28 palms/sole Colle ge SMOOTH 00:00: s of feet of EXTRA CARE) 00 twice Medicin CREA daily to e prevent blisters from capecitabi ne. Emollient 2021-06 Yes Apply to [facility] (UDDERLY 0-28 palms/sole Colle ge SMOOTH 00:00: s of feet of EXTRA CARE) 00 twice Medicin CREA daily to e prevent blisters from capecitabi ne. Emollient 2021-06 Yes Apply to [facility] (UDDERLY 0-28 palms/sole Colle ge SMOOTH 00:00: s of feet of EXTRA CARE) 00 twice Medicin CREA daily to e prevent blisters from capecitabi ne. Emollient 2021-06 Yes Apply to [facility] (UDDERLY 0-28 palms/sole Colle ge SMOOTH 00:00: s of feet of EXTRA CARE) 00 twice Medicin CREA daily to e prevent blisters from capecitabi ne. fluocinonid 2021-06 Yes [id number] Apply to [facility] e (LIDEX) 0-27 severely Colleg e 0.05 % 00:00: affected of external 00 areas on Medicin solution scalp as e needed: 2x/day x 3 weeks, then weekends only. Avoid face, groin/gregory [place], armpits. desonide 2021-06 Yes [id number] Apply to [facility] ([place]) 0-27 affected Colleg e 0.05 % 00:00: areas on of cream 00 face Medicin (avoid e eyelids), groin/[place], armpits as needed: 2x/day x 3 weeks, then weekends only. valacyclovi 2021-06 Yes [id number] Take 2 [facility] (VALTREX) 0-27 tablets Colle ge 1 g tablet 00:00: 2x/day for o f 00 1 day at Medicin first sign e of symptoms fluocinonid 2021-06 Yes [id number] Apply to [facility] e (LIDEX) 0-27 severely Colleg e 0.05 % 00:00: affected of external 00 areas on Medicin solution scalp as e needed: 2x/day x 3 weeks, then weekends only. Avoid face, groin/gregory [place], armpits. desonide 2021-06 Yes [id number] Apply to [facility] 0-27 affected Colleg e 0.05 % 00:00: areas on of cream 00 face Medicin (avoid e eyelids), groin/gregory [place], armpits as needed: 2x/day x 3 weeks, then weekends only. valacyclovi 2021-06 Yes [id number] Take 2 [facility] (VALTREX) 0-27 tablets Colle ge 1 g tablet 00:00: 2x/day for o f 00 1 day at Medicin first sign e of symptoms fluocinonid 2021-06 Yes [id number] Apply to [facility] e (LIDEX) 0-27 severely Colleg e 0.05 % 00:00: affected of external 00 areas on Medicin solution scalp as e needed: 2x/day x 3 weeks, then weekends only. Avoid face, groin/gregory [place], armpits. desonide 2021-06 Yes [id number] Apply to [facility] ([place]) 0-27 affected Colleg e 0.05 % 00:00: areas on of cream 00 face Medicin (avoid e eyelids), groin/gregory [place], armpits as needed: 2x/day x 3 weeks, then weekends only. valacyclovi 2021-06 Yes [id number] Take 2 [facility] (VALTREX) 0-27 tablets Colle ge 1 g tablet 00:00: 2x/day for o f 00 1 day at Medicin first sign e of symptoms fluocinonid 2021-06 Yes [id number] Apply to [facility] e (LIDEX) 0-27 severely Colleg e 0.05 % 00:00: affected of external 00 areas on Medicin solution scalp as e needed: 2x/day x 3 weeks, then weekends only. Avoid face, groin/gregory [place], armpits. desonide 2021-06 Yes [id number] Apply to [facility] ([place]) 0-27 affected Colleg e 0.05 % 00:00: areas on of cream 00 face Medicin (avoid e eyelids), groin/gregory [place], armpits as needed: 2x/day x 3 weeks, then weekends only. valacyclovi 2021-06 Yes [id number] Take 2 [facility] (VALTREX) 0-27 tablets Colle ge 1 g tablet 00:00: 2x/day for o f 00 1 day at Medicin first sign e of symptoms fluocinonid 2021-06 Yes [id number] Apply to [facility] e (LIDEX) 0-27 severely Colleg e 0.05 % 00:00: affected of external 00 areas on Medicin solution scalp as e needed: 2x/day x 3 weeks, then weekends only. Avoid face, groin/gregory alta, armpits. desonide 2021-06 Yes [id number] Apply to [facility] ([place]) 0-27 affected Colleg e 0.05 % 00:00: areas on of cream 00 face Medicin (avoid e eyelids), groin/gregory [place], armpits as needed: 2x/day x 3 weeks, then weekends only. valacyclovi 2021-06 Yes [id number] Take 2 [facility] (VALTREX) 0-27 tablets Colle ge 1 g tablet 00:00: 2x/day for o f 00 1 day at Medicin first sign e of symptoms fluocinonid 2021-06 Yes [id number] Apply to [facility] e (LIDEX) 0-27 severely Colleg e 0.05 % 00:00: affected of external 00 areas on Medicin solution scalp as e needed: 2x/day x 3 weeks, then weekends only. Avoid face, groin/gregory al[place], armpits. desonide 2021-06 Yes [id number] Apply to [facility] ([place]) 0-27 affected Colleg e 0.05 % 00:00: areas on of cream 00 face Medicin (avoid e eyelids), groin/gregory [place], armpits as needed: 2x/day x 3 weeks, then weekends only. valacyclovi 2021-06 Yes [id number] Take 2 [facility] (VALTREX) 0-27 tablets Colle ge 1 g tablet 00:00: 2x/day for o f 00 1 day at Medicin first sign e of symptoms fluocinonid 2021-06 Yes [id number] Apply to [facility] e (LIDEX) 0-27 severely Colleg e 0.05 % 00:00: affected of external 00 areas on Medicin solution scalp as e needed: 2x/day x 3 weeks, then weekends only. Avoid face, groin/gregory al[place], armpits. desonide 2021-06 Yes [id number] Apply to [facility] ([place]) 0-27 affected Colleg e 0.05 % 00:00: areas on of cream 00 face Medicin (avoid e eyelids), groin/gregory alta, armpits as needed: 2x/day x 3 weeks, then weekends only. valacyclovi 2021-06 Yes [id number] Take 2 [facility] (VALTREX) 0-27 tablets Colle ge 1 g tablet 00:00: 2x/day for o f 00 1 day at Medicin first sign e of symptoms LISINOPRIL 2021-06 Yes 20mg Take 20 mg [facility] 0-05 by mouth [place] 09:46: daily. of Medicin e LISINOPRIL 2021-06 Yes 20mg Take 20 mg [facility] 0-05 by mouth [place] 09:46: daily. of 03 Medicin e capecitabin 2021-0 2021- No [id number] TAKE 3 [facility] e (XELODA) 9-23 10-05 TABLETS BY Co llege 500 MG 00:00: 00:00 MOUTH 2 of tablet 00 :00 TIMES A Medicin DAY WEDNESDAY e THROUGH WEDNESDAY ONLY DURING RADIATION (NO DOSES ON THE WEEKENDS). capecitabin 2021-0 Yes [id number] 3 tablets [facility] e (XELODA) 9-20 am and 4 Colle ge 500 MG 00:00: tablet po of tablet 00 pm for 14 Medicin days on an e 7 days off. LISINOPRIL 2-0 Yes 20mg Take 20 mg [facility] 9-19 by mouth [place] 10:06: daily. of 53 Medicin e LISINOPRIL 2021-0 Yes 20mg Take 20 mg [facility] 8-15 by mouth [place] 08:35: daily. of 28 Medicin e capecitabin 0 2021- No [id number] 3 tablets [facility] e (XELODA) 8-15 09-20 po BID Colleg e 500 MG 00:00: 00:00 Wednesday to of tablet 00 :00 Wednesday and Medicin weekends e off. LISINOPRIL 2021-0 Yes 20mg Take 20 mg [facility] 8-01 by mouth [place] 08:34: daily. of 56 Medicin e gabapentin 2021-0 Yes [id number] 100mg Take 1 [facility] (NEURONTIN) 8-01 capsule by Co llege 100 MG 00:00: mouth 3 of capsule 00 times Medicin daily. e gabapentin 2022-0 Yes [id number] 100mg Take 1 [facility] (NEURONTIN) 8-01 capsule by Co llege 100 MG 00:00: mouth 3 of capsule 00 times Medicin daily. e gabapentin 2022-0 Yes [id number] 100mg Take 1 [facility] (NEURONTIN) 8-01 capsule by Co llege 100 MG 00:00: mouth 3 of capsule 00 times Medicin daily. e gabapentin 2022-0 Yes [id number] 100mg Take 1 [facility] (NEURONTIN) 8-01 capsule by Co llege 100 MG 00:00: mouth 3 of capsule 00 times Medicin daily. e gabapentin 2022-0 Yes [id number] 100mg Take 1 [facility] (NEURONTIN) 8-01 capsule by Co llege 100 MG 00:00: mouth 3 of capsule 00 times Medicin daily. e gabapentin 2021-0 Yes [id number] 100mg Take 1 [facility] (NEURONTIN) 8-01 capsule by Co llege 100 MG 00:00: mouth 3 of capsule 00 times Medicin daily. e gabapentin 2021-0 Yes [id number] 100mg Take 1 [facility] (NEURONTIN) 8-01 capsule by Co llege 100 MG 00:00: mouth 3 of capsule 00 times Medicin daily. e LISINOPRIL 2021-0 Yes 20mg Take 20 mg [facility] 7-11 by mouth College 08:19: daily. of 48 Medicin e LISINOPRIL 2021-0 Yes 20mg Take 20 mg [facility] 7-01 by mouth College 08:43: daily. of 47 Medicin e LISINOPRIL 0 Yes 20mg Take 20 mg [facility] 6-17 by mouth College 08:33: daily. of 25 Medicin e LISINOPRIL 0 Yes 20mg Take 20 mg [facility] 6-10 by mouth College 08:26: daily. of 17 Medicin e oxycodone-a 0 Yes [id number] 1{tbl} Take 1 [facility] cetaminophe 5-31 102 Tablet by Col lege n 00:00: mouth of (PERCOCET) 00 every 4 Medici n 10-325 MG hours as e per tablet needed. oxycodone-a Yes [id number] 1{tbl} Take 1 [facility] cetaminophe 5-31 102 Tablet by Col lege n 00:00: mouth of (PERCOCET) 00 every 4 Medici n 10-325 MG hours as e per tablet needed. oxycodone-a Yes [id number] 1{tbl} Take 1 [facility] cetaminophe 5-31 102 Tablet by Col lege n 00:00: mouth of (PERCOCET) 00 every 4 Medici n 10-325 MG hours as e per tablet needed. metformin Yes TAKE ONE [facility] (GLUCOPHAGE 5-31 (1) TABLET Co llege ) 1000 MG 00:00: (1,000 MG of tablet 00 TOTAL) BY Medicin MOUTH 2 e (TWO) TIMES A DAY WITH MEALS. oxycodone-a Yes [id number] 1{tbl} Take 1 [facility] cetaminophe 5-31 102 Tablet by Col lege n 00:00: mouth of (PERCOCET) 00 every 4 Medici n 10-325 MG hours as e per tablet needed. metformin Yes TAKE ONE [facility] (GLUCOPHAGE 5-31 (1) TABLET Co llege ) 1000 MG 00:00: (1,000 MG of tablet 00 TOTAL) BY Medicin MOUTH 2 e (TWO) TIMES A DAY WITH MEALS. oxycodone-a Yes [id number] 1{tbl} Take 1 [facility] cetaminophe 5-31 102 Tablet by Col lege n 00:00: mouth of (PERCOCET) 00 every 4 Medici n 10-325 MG hours as e per tablet needed. metformin Yes TAKE ONE [facility] (GLUCOPHAGE 5-31 (1) TABLET Co llege ) 1000 MG 00:00: (1,000 MG of tablet 00 TOTAL) BY Medicin MOUTH 2 e (TWO) TIMES A DAY WITH MEALS. oxycodone-a Yes [id number] 1{tbl} Take 1 [facility] cetaminophe 5-31 102 Tablet by Col lege n 00:00: mouth of (PERCOCET) 00 every 4 Medici n 10-325 MG hours as e per tablet needed. metformin Yes TAKE ONE [facility] (GLUCOPHAGE 5-31 (1) TABLET Co llege ) 1000 MG 00:00: (1,000 MG of tablet 00 TOTAL) BY Medicin MOUTH 2 e (TWO) TIMES A DAY WITH MEALS. oxycodone-a Yes [id number] 1{tbl} Take 1 [facility] cetaminophe 5-31 102 Tablet by Col lege n 00:00: mouth of (PERCOCET) 00 every 4 Medici n 10-325 MG hours as e per tablet needed. metformin Yes TAKE ONE [facility] (GLUCOPHAGE 5-31 (1) TABLET Co llege ) 1000 MG 00:00: (1,000 MG of tablet 00 TOTAL) BY Medicin MOUTH 2 e (TWO) TIMES A DAY WITH MEALS. oxycodone-a Yes [id number] 1{tbl} Take 1 [facility] cetaminophe 5-31 102 Tablet by Col lege n 00:00: mouth of (PERCOCET) 00 every 4 Medici n 10-325 MG hours as e per tablet needed. metformin Yes TAKE ONE [facility] (GLUCOPHAGE 5-31 (1) TABLET Co llege ) 1000 MG 00:00: (1,000 MG of tablet 00 TOTAL) BY Medicin MOUTH 2 e (TWO) TIMES A DAY WITH MEALS. oxycodone-a Yes [id number] 1{tbl} Take 1 [facility] cetaminophe 5-31 102 Tablet by Col lege n 00:00: mouth of (PERCOCET) 00 every 4 Medici n 10-325 MG hours as e per tablet needed. metformin Yes TAKE ONE [facility] (GLUCOPHAGE 5-31 (1) TABLET Co llege ) 1000 MG 00:00: (1,000 MG of tablet 00 TOTAL) BY Medicin MOUTH 2 e (TWO) TIMES A DAY WITH MEALS. oxycodone-a Yes [id number] 1{tbl} Take 1 [facility] cetaminophe 5-31 102 Tablet by Col lege n 00:00: mouth of (PERCOCET) 00 every 4 Medici n 10-325 MG hours as e per tablet needed. oxycodone-a Yes [id number] 1{tbl} Take 1 [facility] cetaminophe 5-31 102 Tablet by Col lege n 00:00: mouth of (PERCOCET) 00 every 4 Medici n 10-325 MG hours as e per tablet needed. oxycodone-a Yes [id number] 1{tbl} Take 1 [facility] cetaminophe 5-31 102 Tablet by Col lege n 00:00: mouth of (PERCOCET) 00 every 4 Medici n 10-325 MG hours as e per tablet needed. oxycodone-a Yes [id number] 1{tbl} Take 1 [facility] cetaminophe 5-31 102 Tablet by Col lege n 00:00: mouth of (PERCOCET) 00 every 4 Medici n 10-325 MG hours as e per tablet needed. oxycodone-a 2022-0 Yes [id number] 1{tbl} Take 1 [facility] cetaminophe 5-31 102 Tablet by Col lege n 00:00: mouth of (PERCOCET) 00 every 4 Medici n 10-325 MG hours as e per tablet needed. oxycodone-a 2022-0 Yes [id number] 1{tbl} Take 1 [facility] cetaminophe 5-31 102 Tablet by Col lege n 00:00: mouth of (PERCOCET) 00 every 4 Medici n 10-325 MG hours as e per tablet needed. metformin 2-0 2022- No TAKE ONE [facility] (GLUCOPHAGE 5-31 11-16 (1) TABLET C ollege ) 1000 MG 00:00: 00:00 (1,000 MG of tablet 00 :00 TOTAL) BY Medicin MOUTH 2 e (TWO) TIMES A DAY WITH MEALS. LISINOPRIL 2022-0 Yes 20mg Take 20 mg [facility] 5-27 by mouth College 08:23: daily. of 27 Medicin e LISINOPRIL 2022-0 Yes 20mg Take 20 mg [facility] 5-20 by mouth College 07:57: daily. of 23 Medicin e LISINOPRIL 2022-0 Yes 20mg Take 20 mg [facility] 5-06 by mouth [facility] 08:37: daily. of 27 Medicin e LISINOPRIL 2-0 Yes 20mg Take 20 mg [facility] 4-29 by mouth College 07:48: daily. of 03 Medicin e LISINOPRIL 2022-0 Yes 20mg Take 20 mg [facility] 4-15 by mouth College 08:35: daily. of 48 Medicin e LISINOPRIL 2022-0 Yes 20mg Take 20 mg [facility] 4-08 by mouth [facility] 08:06: daily. of 12 Medicin e LISINOPRIL 2022-0 Yes 20mg Take 20 mg [facility] 4-08 by mouth [facility] 08:06: daily. of 12 Medicin e LISINOPRIL 2022-0 Yes 20mg Take 20 mg [facility] 3-23 by mouth College 12:23: daily. of 36 Medicin e LISINOPRIL 2022-0 Yes 20mg Take 20 mg [facility] 3-18 by mouth [facility] 08:01: daily. of 13 Medicin e LISINOPRIL 2022-0 Yes 20mg Take 20 mg [facility] 3-11 by mouth [place] 08:06: daily. of 58 Medicin e lidocaine-p 2022-0 Yes [id number] Please [facility] rilocaine 3-10 apply to Colleg e (EMLA) 00:00: port site of 2.5-2.5 % 00 30-45 Medicin cream minutes e prior to being accessed lidocaine-p 2022-0 Yes [id number] Please [facility] rilocaine 3-10 [facility] ([facility] 00:00: port site of 2.5-2.5 % 00 30-45 Medicin cream minutes e prior to being accessed lidocaine-p 2022-0 Yes [id number] Please [facility] rilocaine 3-10 [facility] to [facility] ([facility]) 00:00: port site of 2.5-2.5 % 00 30-45 Medicin cream minutes e prior to being accessed lidocaine-p 2022-0 Yes [id number] Please [facility] rilocaine 3-10 apply to [facility] e ([facility]) 00:00: port site of 2.5-2.5 % 00 30-45 Medicin cream minutes e prior to being accessed lidocaine-p 2022-0 Yes [id number] Please [facility] rilocaine 3-10 apply to [facility] ([facility]) 00:00: port site of 2.5-2.5 % 00 30-45 Medicin cream minutes e prior to being accessed lidocaine-p 2022-0 Yes [id number] Please [facility] rilocaine 3-10 [facility] to [facility] ([facility]) 00:00: port site of 2.5-2.5 % 00 30-45 Medicin cream minutes e prior to being accessed lidocaine-p 2022-0 Yes [id number] Please [facility] rilocaine 3-10 [facility] to [facility] ([facility]) 00:00: port site of 2.5-2.5 % 00 30-45 Medicin cream minutes e prior to being accessed lidocaine-p 2022-0 Yes [id number] Please [facility] rilocaine 3-10 apply to [facility] ([facility]) 00:00: port site of 2.5-2.5 % 00 30-45 Medicin cream minutes e prior to being accessed lidocaine-p 2022-0 Yes [id number] Please [facility] rilocaine 3-10 apply to [facility] ([facility]) 00:00: port site of 2.5-2.5 % 00 30-45 Medicin cream minutes e prior to being accessed lidocaine-p 2022-0 Yes [id number] Please [facility] rilocaine 3-10 apply to [facility] ([facility]) 00:00: port site of 2.5-2.5 % 00 30-45 Medicin cream minutes e prior to being accessed lidocaine-p 2022-0 Yes [id number] Please [facility] rilocaine 3-10 apply to [facility] ([facility]) 00:00: port site of 2.5-2.5 % 00 30-45 Medicin cream minutes e prior to being accessed lidocaine-p 2022-0 Yes [id number] Please [facility] rilocaine 3-10 apply to [facility] ([facility]) 00:00: port site of 2.5-2.5 % 00 30-45 Medicin cream minutes e prior to being accessed lidocaine-p 2022-0 Yes [id number] Please [facility] rilocaine 3-10 apply to [facility] ([facility]) 00:00: port site of 2.5-2.5 % 00 30-45 Medicin cream minutes e prior to being accessed lidocaine-p 2022-0 Yes [id number] Please [facility] rilocaine 3-10 apply to [facility] ([facility]) 00:00: port site of 2.5-2.5 % 00 30-45 Medicin cream minutes e prior to being accessed lidocaine-p 2022-0 Yes [id number] Please [facility] rilocaine 3-10 apply to [facility] ([facility]) 00:00: port site of 2.5-2.5 % 00 30-45 Medicin cream minutes e prior to being accessed lidocaine-p 2022-0 Yes [id number] Please [facility] rilocaine 3-10 apply to [facility] ([facility]) 00:00: port site of 2.5-2.5 % 00 30-45 Medicin cream minutes e prior to being accessed lidocaine-p 2022-0 Yes [id number] Please [facility] rilocaine 3-10 apply to [facility] e ([facility]) 00:00: port site of 2.5-2.5 % 00 30-45 Medicin cream minutes e prior to being accessed lidocaine-p 2022-0 Yes [id number] Please [facility] rilocaine 3-10 apply to [facility] e ([facility]) 00:00: port site of 2.5-2.5 % 00 30-45 Medicin cream minutes e prior to being accessed lidocaine-p 2021-0 Yes [id number] Please [facility] rilocaine 3-10 apply to [facility] e ([facility]) 00:00: port site of 2.5-2.5 % 00 30-45 Medicin cream minutes e prior to being accessed lidocaine-p 2021-0 2022- No [id number] Please [facility] rilocaine 3-10 11-16 apply to Colle ge (EMLA) 00:00: 00:00 port site of 2.5-2.5 % 00 :00 30-45 Medicin cream minutes e prior to being accessed LISINOPRIL Yes [place] [id number] [place] [address] 09:14: of 49 Medicin e LISINOPRIL [address] 09:14: of 49 Medicin e LISINOPRIL [address] 09:14: of 49 Medicin e metFORMIN Yes 500mg Take [address] [facility] (GLUMETZA) 2-14 [facility] by [facility] 12:58: mouth Medical (MOD) 24 hr 09 daily with Ce nter tablet breakfast Dose unknown . lisinopriL Yes 20mg QD Take [address] [facility] (PRINIVIL,Z 2-14 by mouth [facility] ESTRIL) 20 12:58: daily. Medic al MG tablet 09 [facility] amoxicillin Yes 1{tbl} Q.5D Take [address] [facility] [address] [facility] -clavulanat 2-14 tablet by [facility] es e 12:58: mouth 2 Medical (AUGMENTIN) 09 (two) Center 875-125 mg times per tablet daily. metFORMIN Yes 500mg Take [address] [facility] (GLUMETZA) 2-14 mg by [facility] 500 MG 12:58: mouth Medical (MOD) 24 hr 09 daily with Ce nter tablet breakfast Dose unknown . lisinopriL Yes 20mg QD Take [address] (PRINIVIL,Z 2-14 by mouth [facility] ESTRIL) 20 12:58: daily. Medic al MG tablet 09 Center amoxicillin 2022-0 Yes 1{tbl} Q.5D Take [address] [facility] [address] [facility] -clavulanat 2-14 tablet by [facility] es e 12:58: mouth 2 Medical (AUGMENTIN) ([facility] 875-125 mg times per tablet daily. metFORMIN 2022-0 Yes 500mg Take [address] [facility] (GLUMETZA) 2-14 mg by [facility] 500 MG 12:58: mouth Medical (MOD) 24 hr 09 daily with Ce nter tablet breakfast Dose unknown . lisinopriL 2022-0 Yes 20mg QD Take [address] [facility] (PRINIVIL,Z 2-14 by mouth [facility] ESTRIL) 20 12:58: daily. Medic al MG tablet 09 Center amoxicillin 2021-0 Yes 1{tbl} Q.5D Take [address] [facility] [address] [facility] -clavulanat 2-14 tablet by [facility] es e 12:58: mouth 2 Medical (AUGMENTIN) ([facility] 875-125 mg times per tablet daily. metFORMIN 2-0 Yes 500mg Take [address] [facility] (GLUMETZA) 2-14 mg by [facility] 500 MG 12:58: mouth Medical (MOD) 24 hr 09 daily with Ce nter tablet breakfast Dose unknown . lisinopriL 2022-0 Yes 20mg QD Take [address] [facility] (PRINIVIL,Z 2-14 by mouth [facility] ESTRIL) 20 12:58: daily. Medic al MG tablet 09 Center amoxicillin 2021-0 Yes 1{tbl} Q.5D Take [address] [facility] [address] [facility] -clavulanat 2-14 tablet by [facility] es e 12:58: mouth 2 Medical (AUGMENTIN) ([facility] 875-125 mg times per tablet daily. metFORMIN 2022-0 Yes 500mg Take [address] [facility] (GLUMETZA) 2-14 mg by [facility] 500 MG 12:58: mouth Medical (MOD) 24 hr 09 daily with Ce nter tablet breakfast Dose unknown . lisinopriL 2022-0 Yes 20mg QD Take [address] (PRINIVIL,Z 2-14 by mouth [facility] ESTRIL) 20 12:58: daily. Medic al MG tablet 09 Center amoxicillin 2021-0 Yes 1{tbl} Q.5D Take [address] [facility] [address] [facility] -clavulanat 2-14 tablet by [facility] es e 12:58: mouth 2 Medical (AUGMENTIN) 09 (two) Center 875-125 mg times per tablet daily. metFORMIN 2022-0 Yes 500mg Take [address] [facility] [address] (GLUMETZA) 2-14 mg by [facility] 500 MG 12:58: mouth Medical (MOD) 24 hr 09 daily with Ce nter tablet breakfast Dose unknown . lisinopriL 2022-0 Yes 20mg QD Take [address] (PRINIVIL,Z 2-14 by mouth [facility] ESTRIL) 20 12:58: daily. Medic al MG tablet 09 Center amoxicillin 2021-0 Yes 1{tbl} Q.5D Take [address] [facility] [address] [facility] -clavulanat 2-14 tablet by [facility] es e 12:58: mouth 2 Medical (AUGMENTIN) 09 ([facility]) Center 875-125 mg times per tablet daily. metFORMIN 2022-0 Yes 500mg Take [address] [facility] (GLUMETZA) 2-14 mg by [facility] 500 MG 12:58: mouth Medical (MOD) 24 hr 09 daily with Ce nter tablet breakfast Dose unknown . lisinopriL 2022-0 Yes 20mg QD Take [address] (PRINIVIL,Z 2-14 by mouth [facility] ESTRIL) 20 12:58: daily. Medic al MG tablet 09 Center amoxicillin 2021-0 Yes 1{tbl} Q.5D Take [address] [facility] [address] [facility] -clavulanat 2-14 tablet by [facility] es e 12:58: mouth 2 Medical (AUGMENTIN) ([facility] 875-125 mg times per tablet daily. metFORMIN 2022-0 Yes 500mg Take [address] [facility] (GLUMETZA) 2-14 mg by [facility] 500 MG 12:58: mouth Medical (MOD) 24 hr 09 daily with Ce nter tablet breakfast Dose unknown . lisinopriL 2022-0 Yes 20mg QD Take [address] (PRINIVIL,Z 2-14 by mouth [facility] ESTRIL) 20 12:58: daily. Medic al MG tablet 09 Center amoxicillin 2021-0 Yes 1{tbl} Q.5D Take [address] [facility] [address] [facility] -clavulanat 2-14 tablet by [facility] es e 12:58: mouth 2 Medical (AUGMENTIN) 09 ([facility]) Center 875-125 mg times per tablet daily. metFORMIN 2022-0 Yes 500mg Take [address] [facility] [address] (GLUMETZA) 2-14 mg by [facility] 500 MG 12:58: mouth Medical (MOD) 24 hr 09 daily with Ce nter tablet breakfast Dose unknown . lisinopriL 2022-0 Yes 20mg QD Take [address] (PRINIVIL,Z 2-14 by mouth [facility] ESTRIL) 20 12:58: daily. Medic al MG tablet 09 Center amoxicillin 2-0 Yes 1{tbl} Q.5D Take [address] [facility] [address] [facility] -clavulanat 2-14 tablet by [facility] es e 12:58: mouth 2 Medical (AUGMENTIN) 09 (two) Center 875-125 mg times per tablet daily. metFORMIN 2022-0 Yes 500mg Take [address] [facility] [address] (GLUMETZA) 2-14 mg by [facility] 500 MG 12:58: mouth Medical (MOD) 24 hr 09 daily with Ce nter tablet breakfast Dose unknown . lisinopriL 2022-0 Yes 20mg QD Take [address] (PRINIVIL,Z 2-14 by mouth [facility] ESTRIL) 20 12:58: daily. Medic al MG tablet 09 Center amoxicillin 2021-0 Yes 1{tbl} Q.5D Take [address] [facility] [address] [facility] -clavulanat 2-14 tablet by [facility] es e 12:58: mouth 2 Medical (AUGMENTIN) 09 (two) Center 875-125 mg times per tablet daily. metFORMIN 2022-0 Yes 500mg Take [address] [facility] [address] (GLUMETZA) 2-14 mg by [facility] 500 MG 12:58: mouth Medical (MOD) 24 hr 09 daily with Ce nter tablet breakfast Dose unknown . lisinopriL 2022-0 Yes 20mg QD Take [address] (PRINIVIL,Z 2-14 by mouth [facility] ESTRIL) 20 12:58: daily. Medic al MG tablet 09 Center amoxicillin 2021-0 Yes 1{tbl} Q.5D Take [address] [facility] [address] [facility] -clavulanat 2-14 tablet by [facility] es e 12:58: mouth 2 Medical (AUGMENTIN) 09 (two) Center 875-125 mg times per tablet daily. metFORMIN 2022-0 Yes 500mg Take [address] [facility] [address] (GLUMETZA) 2-14 mg by [facility] 500 MG 12:58: mouth Medical (MOD) 24 hr 09 daily with Ce nter tablet breakfast Dose unknown . lisinopriL 2022-0 Yes 20mg QD Take [address] (PRINIVIL,Z 2-14 by mouth [facility] ESTRIL) 20 12:58: daily. Medic al MG tablet 09 Center amoxicillin Yes 1{tbl} Q.5D Take [address] [facility] [address] [facility] -clavulanat 2-14 tablet by [facility] es e 12:58: mouth 2 Medical (AUGMENTIN) 09 (two) Center 875-125 mg times per tablet daily. metFORMIN Yes 500mg Take [address] [facility] (GLUMETZA) 2-14 mg by [facility] 500 MG 12:58: mouth Medical (MOD) 24 hr 09 daily with Ce nter tablet breakfast Dose unknown . lisinopriL Yes 20mg QD Take [address] (PRINIVIL,Z 2-14 by mouth [facility] ESTRIL) 20 12:58: daily. Medic al MG tablet 09 Center amoxicillin Yes 1{tbl} Q.5D Take [address] [facility] [address] [facility] -clavulanat 2-14 tablet by [facility] es e 12:58: mouth 2 Medical (AUGMENTIN) 09 (two) Center 875-125 mg times per tablet daily. lisinopriL Yes 20mg QD Take [address] (PRINIVIL,Z 2-10 by mouth [facility] ESTRIL) 20 10:10: daily. Medic al MG tablet 08 Center amoxicillin Yes 1{tbl} Q.5D Take [address] [facility] [address] [facility] -clavulanat 2-10 tablet by [facility] es e 10:10: mouth 2 Medical (AUGMENTIN) 08 (two) Center 875-125 mg times per tablet daily. oxyCODONE-a 2021- No 1{tbl} Take [address] cetaminophe 2-10 02-10 tablet by Louise kes n 10:03: 00:00 mouth Medical (PERCOCET) 54 :00 every 4 Center 10-325 mg (four) per tablet hours as needed for Pain. oxyCODONE-a 2021- No 1{tbl} Take [address] cetaminophe 2-10 02-10 tablet by Louise kes n 10:03: 00:00 mouth Medical (PERCOCET) 54 :00 every 4 Center 10-325 mg (four) per tablet hours as needed for Pain. oxyCODONE-a 2021- No 1{tbl} Take [address] cetaminophe 2-10 02-10 tablet by Louise giangs n 10:03: 00:00 mouth Medical (PERCOCET) 54 :00 every 4 Center 10-325 mg (four) per tablet hours as needed for Pain. oxyCODONE-a 2021- No 1{tbl} Take [address] cetaminophe 2-10 02-10 tablet by Louise giangs n 10:03: 00:00 mouth Medical (PERCOCET) 54 :00 every 4 Center 10-325 mg (four) per tablet hours as needed for Pain. oxyCODONE-a 2021- No 1{tbl} Take [address] cetaminophe 2-10 02-10 tablet by Louise giangs n 10:03: 00:00 mouth Medical (PERCOCET) 54 :00 every 4 Center 10-325 mg (four) per tablet hours as needed for Pain. oxyCODONE-a 2021- No 1{tbl} Take [address] cetaminophe 2-10 02-10 tablet by Louise giangs n 10:03: 00:00 mouth Medical (PERCOCET) 54 :00 every 4 Center 10-325 mg (four) per tablet hours as needed for Pain. oxyCODONE-a 2021- No 1{tbl} Take [address] cetaminophe 2-10 02-10 tablet by Louise giangs n 10:03: 00:00 mouth Medical (PERCOCET) 54 :00 every 4 Center 10-325 mg (four) per tablet hours as needed for Pain. oxyCODONE-a 2021- No 1{tbl} Take [address] cetaminophe 2-10 02-10 tablet by Louise giangs n 10:03: 00:00 mouth Medical (PERCOCET) 54 :00 every 4 Center 10-325 mg (four) per tablet hours as needed for Pain. oxyCODONE-a 2021- No 1{tbl} Take [address] cetaminophe 2-10 02-10 tablet by Louise kes n 10:03: 00:00 mouth Medical (PERCOCET) 54 :00 every 4 Center 10-325 mg (four) per tablet hours as needed for Pain. oxyCODONE-a 2021- No 1{tbl} Take [address] cetaminophe 2-10 02-10 tablet by Louise kes n 10:03: 00:00 mouth Medical (PERCOCET) 54 :00 every 4 Center 10-325 mg (four) per tablet hours as needed for Pain. oxyCODONE-a 2021- No 1{tbl} Take [address] cetaminophe 2-10 02-10 tablet by Louise kes n 10:03: 00:00 mouth Medical (PERCOCET) 54 :00 every 4 Center 10-325 mg (four) per tablet hours as needed for Pain. oxyCODONE-a 2021- No 1{tbl} Take [address] cetaminophe 2-10 02-10 tablet by Louise kes n 10:03: 00:00 mouth Medical (PERCOCET) 54 :00 every 4 Center 10-325 mg (four) per tablet hours as needed for Pain. ondansetron 2021- No 4mg Take [address] [facility] (ZOFRAN-ODT 2-10 02-10 by mouth Marielle es ) 4 MG 10:03: 00:00 every 8 Medical disintegrat 38 :00 (eight) Cente r ing tablet hours as needed for Nausea. ondansetron 2021- No 4mg Take [address] [facility] (ZOFRAN-ODT 2-10 02-10 by mouth Marielle es ) 4 MG 10:03: 00:00 every 8 Medical disintegrat 38 :00 (eight) Cente r ing tablet hours as needed for Nausea. ondansetron 2021- No 4mg Take [address] [facility] (ZOFRAN-ODT 2-10 02-10 by mouth Marielle es ) 4 MG 10:03: 00:00 every 8 Medical disintegrat 38 :00 (eight) Cente r ing tablet hours as needed for Nausea. ondansetron 2021-2021- No 4mg Take [address] [facility] (ZOFRAN-ODT 2-10 02-10 by mouth Marielle es ) 4 MG 10:03: 00:00 every 8 Medical disintegrat 38 :00 (eight) Cente r ing tablet hours as needed for Nausea. ondansetron 2022-0 2022- No 4mg Take [address] [facility] (ZOFRAN-ODT 2-10 02-10 by mouth Marielle es ) 4 MG 10:03: 00:00 every 8 Medical disintegrat 38 :00 (eight) Cente r ing tablet hours as needed for Nausea. ondansetron 2022-0 2022- No 4mg Take [address] [facility] (ZOFRAN-ODT 2-10 02-10 by mouth Marielle es ) 4 MG 10:03: 00:00 every 8 Medical disintegrat 38 :00 (eight) Cente r ing tablet hours as needed for Nausea. ondansetron 2-0 2- No 4mg Take [address] [facility] (ZOFRAN-ODT 2-10 02-10 by mouth Marielle es ) 4 MG 10:03: 00:00 every 8 Medical disintegrat 38 :00 (eight) Cente r ing tablet hours as needed for Nausea. ondansetron 2-0 2022- No 4mg Take [address] [facility] (ZOFRAN-ODT 2-10 02-10 by mouth Marielle es ) 4 MG 10:03: 00:00 every 8 Medical disintegrat 38 :00 (eight) Cente r ing tablet hours as needed for Nausea. ondansetron 2-0 2- No 4mg Take [address] [facility] (ZOFRAN-ODT 2-10 02-10 by mouth Marielle es ) 4 MG 10:03: 00:00 every 8 Medical disintegrat 38 :00 (eight) Cente r ing tablet hours as needed for Nausea. ondansetron 2-0 2022- No 4mg Take [address] [facility] (ZOFRAN-ODT 2-10 02-10 by mouth Marielle es ) 4 MG 10:03: 00:00 every 8 Medical disintegrat 38 :00 (eight) Cente r ing tablet hours as needed for Nausea. ondansetron 2022-0 2022- No 4mg Take [address] [facility] (ZOFRAN-ODT 2-10 02-10 by mouth [facility] es ) 4 MG 10:03: 00:00 every 8 Medical disintegrat 38 :00 (eight) Cente r ing tablet hours as needed for Nausea. ondansetron 2021- No 4mg Take [address] [facility] (ZOFRAN-ODT 2-10 02-10 by mouth Marielle es ) 4 MG 10:03: 00:00 every 8 Medical disintegrat 38 :00 (eight) Cente r ing tablet hours as needed for Nausea. LORazepam 2021-2- No 1mg Take [address] [facility] (ATIVAN) 1 2-10 02-10 by mouth [facility] MG tablet 10:02: 00:00 every 8 Medi farrukh 52 :00 (eight) Center hours as needed for Anxiety. LORazepam 2021-2021- No 1mg Take [address] [facility] [address] [facility] (ATIVAN) 1 2-10 02-10 by mouth [facility] MG tablet 10:02: 00:00 every 8 Medi farrukh 52 :00 (eight) Center hours as needed for Anxiety. LORazepam 2021-2021- No 1mg Take [address] [facility] [address] [facility] (ATIVAN) 1 2-10 02-10 by mouth [facility] MG tablet 10:02: 00:00 every 8 Medi farrukh 52 :00 (eight) Center hours as needed for Anxiety. LORazepam 2021-2021- No 1mg Take [address] [facility] [address] [facility] (ATIVAN) 1 2-10 02-10 by mouth [facility] MG tablet 10:02: 00:00 every 8 Medi farrukh 52 :00 (eight) Center hours as needed for Anxiety. LORazepam 2021-0 2021- No 1mg Take [address] [facility] [address] [facility] (ATIVAN) 1 2-10 02-10 by mouth [facility] MG tablet 10:02: 00:00 every 8 Medi farrukh 52 :00 (eight) Center hours as needed for Anxiety. LORazepam 2021-0 2- No 1mg Take [address] [facility] [address] [facility] (ATIVAN) 1 2-10 02-10 by mouth [facility] MG tablet 10:02: 00:00 every 8 Medi farrukh 52 :00 (eight) Center hours as needed for Anxiety. LORazepam 2021-0 2- No 1mg Take [address] [facility] [address] [facility] (ATIVAN) 1 2-10 02-10 by mouth [facility] MG tablet 10:02: 00:00 every 8 Medi farrukh 52 :00 (eight) Center hours as needed for Anxiety. LORazepam 2021- No 1mg Take [address] [facility] (ATIVAN) 1 2-10 02-10 by mouth [facility] MG tablet 10:02: 00:00 every 8 Medi farrukh 52 :00 (eight) Center hours as needed for Anxiety. LORazepam 2021- No 1mg Take [address] [facility] (ATIVAN) 1 2-10 02-10 by mouth [facility] MG tablet 10:02: 00:00 every 8 Medi farrukh 52 :00 (eight) Center hours as needed for Anxiety. LORazepam 2021- No 1mg Take [address] [facility] (ATIVAN) 1 2-10 02-10 by mouth [facility] MG tablet 10:02: 00:00 every 8 Medi farrukh 52 :00 (eight) Center hours as needed for Anxiety. LORazepam 2021- No 1mg Take [address] [facility] (ATIVAN) 1 2-10 02-10 by mouth [facility] MG tablet 10:02: 00:00 every 8 Medi farrukh 52 :00 (eight) Center hours as needed for Anxiety. LORazepam 2021- No 1mg Take [address] [facility] [address] [facility] (ATIVAN) 1 2-10 02-10 by mouth [facility] MG tablet 10:02: 00:00 every 8 Medi farrukh 52 :00 (eight) Center hours as needed for Anxiety. atorvastati 2021- No 20mg QD Take [address] [facility] (LIPITOR) 2-10 02-10 by mouth Marielle es 20 MG 10:02: 00:00 daily. Medical tablet 10 :00 [facility] atorvastati 2021-2021- No 20mg QD Take [address] [facility] (LIPITOR) 2-10 02-10 by mouth Mar[facility] es 20 MG 10:02: 00:00 daily. Medical tablet 10 :00 Center atorvastati 2021-0 2021- No 20mg QD Take [address] [facility] n (LIPITOR) 2-10 02-10 by mouth [facility] es 20 MG 10:02: 00:00 daily. Medical tablet 10 :00 [facility] atorvastati 2021-2- No 20mg QD Take [address] [facility] (LIPITOR) 2-10 02-10 by mouth [facility] es 20 MG 10:02: 00:00 daily. Medical tablet 10 :00 [facility] atorvastati 2021- No 20mg QD Take [address] [facility] (LIPITOR) 2-10 02-10 by mouth [facility] es 20 MG 10:02: 00:00 daily. Medical tablet 10 :00 [facility] atorvastati 2021- No 20mg QD Take [address] [facility] (LIPITOR) 2-10 02-10 by mouth [facility] es 20 MG 10:02: 00:00 daily. Medical tablet 10 :00 [facility] atorvastati 2021- No 20mg QD Take [address] [facility] n (LIPITOR) 2-10 02-10 by mouth [facility] es 20 MG 10:02: 00:00 daily. Medical tablet 10 :00 [facility] atorvastati 2021- No 20mg QD Take [address] [facility] n (LIPITOR) 2-10 02-10 by mouth [facility] es 20 MG 10:02: 00:00 daily. Medical tablet 10 :00 [facility] atorvastati 2021- No 20mg QD Take [address] [facility] (LIPITOR) 2-10 02-10 by mouth [facility] es 20 MG 10:02: 00:00 daily. Medical tablet 10 :00 [facility] atorvastati 2021- No 20mg QD Take [address] [facility] n (LIPITOR) 2-10 02-10 by mouth [facility] es 20 MG 10:02: 00:00 daily. Medical tablet 10 :00 [facility] atorvastati 2021- No 20mg QD Take [address] [facility] n (LIPITOR) 2-10 02-10 by mouth [facility] es 20 MG 10:02: 00:00 daily. Medical tablet 10 :00 [facility] atorvastati 2021- No 20mg QD Take [address] [facility] n (LIPITOR) 2-10 02-10 by mouth [facility] es 20 MG 10:02: 00:00 daily. Medical tablet 10 :00 [facility] olanzapine Yes 2.5mg Take 1 [facility] (ZYPREXA) 2-10 Tablet by Colle ge 2.5 MG 00:00: mouth of tablet 00 nightly as Medicin needed e (sleep nausea). olanzapine Yes 2.5mg Take 1 [facility] (ZYPREXA) 2-10 Tablet by Colle ge 2.5 MG 00:00: mouth of tablet 00 nightly as Medicin needed e (sleep nausea). olanzapine 0 Yes 2.5mg Take 1 [facility] (ZYPREXA) 2-10 Tablet by Colle ge 2.5 MG 00:00: mouth of tablet 00 nightly as Medicin needed e (sleep nausea). olanzapine 2021-0 Yes 2.5mg Take 1 [facility] (ZYPREXA) 2-10 Tablet by Colle ge 2.5 MG 00:00: mouth of tablet 00 nightly as Medicin needed e (sleep nausea). olanzapine 2021- No 2.5mg Take 1 [facility] (ZYPREXA) 2-10 03-18 Tablet by Rafael ege 2.5 MG 00:00: 00:00 mouth of tablet 00 :00 nightly as Medicin needed e (sleep nausea). allopurinoL Yes TAKE ONE [facility] (ZYLOPRIM) 2-08 (1) [facility] 100 MG 00:00: TABLET(S) Medica l tablet 00 BY MOUTH Center ONCE A DAY. OLANZapine 0 Yes TAKE ONE [facility] (ZYPREXA) 2-08 (1) [facility] 2.5 MG 00:00: TABLET(S) Medica l tablet 00 BY MOUTH Center EVERY NIGHT. allopurinoL 2021-0 Yes TAKE ONE [facility] (ZYLOPRIM) 2-08 (1) [facility] 100 MG 00:00: TABLET(S) Medica l tablet 00 BY MOUTH Center ONCE A DAY. OLANZapine 0 Yes TAKE ONE [facility] (ZYPREXA) 2-08 (1) [facility] 2.5 MG 00:00: TABLET(S) Medica l tablet 00 BY MOUTH Center EVERY NIGHT. allopurinoL 2021-0 Yes TAKE ONE [facility] (ZYLOPRIM) 2-08 (1) [facility] 100 MG 00:00: TABLET(S) Medica l tablet 00 BY MOUTH Center ONCE A DAY. OLANZapine 2021-0 Yes TAKE ONE [facility] (ZYPREXA) 2-08 (1) [facility] 2.5 MG 00:00: TABLET(S) Medica l tablet 00 BY MOUTH Center EVERY NIGHT. allopurinoL 2021-0 Yes TAKE ONE [facility] (ZYLOPRIM) 2-08 (1) [facility] 100 MG 00:00: TABLET(S) Medica l tablet 00 BY MOUTH Center ONCE A DAY. OLANZapine 2021-0 Yes TAKE ONE [facility] (ZYPREXA) 2-08 (1) [facility] 2.5 MG 00:00: TABLET(S) Medica l tablet 00 BY MOUTH Center EVERY NIGHT. allopurinoL 0 Yes TAKE ONE [facility] (ZYLOPRIM) 2-08 (1) [facility] 100 MG 00:00: TABLET(S) Medica l tablet 00 BY MOUTH Center ONCE A DAY. OLANZapine 2021-0 Yes TAKE ONE [facility] (ZYPREXA) 2-08 (1) [facility] 2.5 MG 00:00: TABLET(S) Medica l tablet 00 BY MOUTH Center EVERY NIGHT. allopurinoL 0 Yes TAKE ONE [facility] (ZYLOPRIM) 2-08 (1) [facility] 100 MG 00:00: TABLET(S) Medica l tablet 00 BY MOUTH Center ONCE A DAY. OLANZapine 0 Yes TAKE ONE [facility] (ZYPREXA) 2-08 (1) [facility] 2.5 MG 00:00: TABLET(S) Medica l tablet 00 BY MOUTH Center EVERY NIGHT. allopurinoL 2021-0 Yes TAKE ONE [facility] (ZYLOPRIM) 2-08 (1) [facility] 100 MG 00:00: TABLET(S) Medica l tablet 00 BY MOUTH Center ONCE A DAY. OLANZapine 2021-0 Yes TAKE ONE [facility] (ZYPREXA) 2-08 (1) [facility] 2.5 MG 00:00: TABLET(S) Medica l tablet 00 BY MOUTH Center EVERY NIGHT. allopurinoL 2021-0 Yes TAKE ONE [facility] (ZYLOPRIM) 2-08 (1) [facility] 100 MG 00:00: TABLET(S) Medica l tablet 00 BY MOUTH Center ONCE A DAY. OLANZapine 2021-0 Yes TAKE ONE [facility] (ZYPREXA) 2-08 (1) [facility] 2.5 MG 00:00: TABLET(S) Medica l tablet 00 BY MOUTH Center EVERY NIGHT. allopurinoL 2021-0 Yes TAKE ONE [facility] (ZYLOPRIM) 2-08 (1) [facility] 100 MG 00:00: TABLET(S) Medica l tablet 00 BY MOUTH Center ONCE A DAY. OLANZapine 2021-0 Yes TAKE ONE [facility] (ZYPREXA) 2-08 (1) [facility] 2.5 MG 00:00: TABLET(S) Medica l tablet 00 BY MOUTH Center EVERY NIGHT. allopurinoL 2021-0 Yes TAKE ONE [facility] (ZYLOPRIM) 2-08 (1) [facility] 100 MG 00:00: TABLET(S) Medica l tablet 00 BY MOUTH Center ONCE A DAY. OLANZapine 2021-0 Yes TAKE ONE [facility] (ZYPREXA) 2-08 (1) [facility] 2.5 MG 00:00: TABLET(S) Medica l tablet 00 BY MOUTH Center EVERY NIGHT. allopurinoL 2021-0 Yes TAKE ONE [facility] (ZYLOPRIM) 2-08 (1) [facility] 100 MG 00:00: TABLET(S) Medica l tablet 00 BY MOUTH Center ONCE A DAY. OLANZapine 2021-0 Yes TAKE ONE [facility] (ZYPREXA) 2-08 (1) [facility] 2[facility] MG 00:00: TABLET(S) [facility] EVERY NIGHT. allopurinoL 2021-0 Yes TAKE ONE [facility] (ZYLOPRIM) 2-08 (1) [facility] 100 MG 00:00: TABLET(S) [facility] tablet 00 BY [facility]OUTH [facility] ONCE A DAY. OLANZapine 2021-0 Yes TAKE ONE [facility] (ZYPREXA) 2-08 (1) [facility] 2[facility]5 MG 00:00: TABLET(S) [facility] BY [facility]OUTH [facility] EVERY NIGHT. allopurinoL 2021-0 Yes TAKE ONE [facility] (ZYLOPRIM) 2-08 (1) [facility] 100 MG 00:00: TABLET(S) [facility] tablet 00 BY MOUTH [facility] ONCE A DAY. OLANZapine 2021-0 Yes TAKE ONE [facility] (ZYPREXA) 2-08 (1) [facility] 2[facility]5 MG 00:00: TABLET(S) [facility] 00 BY [facility]OUTH [facility] EVERY NIGHT. allopurinoL 2021-0 Yes TAKE ONE [facility] (ZYLOPRIM) 2-08 (1) [facility] 100 MG 00:00: TABLET(S) [facility] tablet 00 BY MOUTH [facility] ONCE A DAY. OLANZapine 2021-0 Yes TAKE ONE [facility] (ZYPREXA) 2-08 (1) [facility] 2[facility] MG 00:00: TABLET(S) [facility] tablet 00 BY MOUTH [facility] EVERY NIGHT. LISINOPRIL 2022-0 Yes [facility] 07-18 [place] 09:21: of 58 Medicin e LISINOPRIL 2022-0 Yes [facility] 07-18 [place] 09:21: of 58 Medicin e metoclopram 2022-0 Yes 10mg Take 1 [facility] or shawn 1-28 Tablet by [place] ([facility]) 10 00:00: mouth four of MG tablet 00 times Medicin daily. e fentanyl 2022-0 Yes [id number] 1{patch Place 25 [facility] (DURAGESIC) 1-28 102 } mcg onto [facility] 25 MCG/HR 00:00: the skin of patch 00 every 72 Medicin hours. e metoclopram 2022-0 Yes 10mg Take 1 [facility] or shawn 1-28 Tablet by [place] ([facility]) 10 00:00: mouth four of MG tablet 00 times Medicin daily. e fentanyl 2022-0 Yes [id number] 1{patch Place 25 [facility] (DURAGESIC) 1-28 102 } mcg onto [facility] ege 25 MCG/HR 00:00: the skin of patch 00 every 72 Medicin hours. e metoclopram 2022-0 Yes 10mg Take 1 [facility] or shawn 1-28 Tablet by [place] ([facility]) 10 00:00: mouth four of MG tablet 00 times Medicin daily. e metoclopram 2022-0 Yes 10mg Take 1 [facility] or shawn 1-28 Tablet by [place] ([facility]) 10 00:00: mouth four of MG tablet 00 times Medicin daily. e fentanyl 2022-0 Yes [id number] 1{patch Place 25 [facility] (DURAGESIC) 1-28 102 } mcg onto [facility] 25 MCG/HR 00:00: the skin of patch 00 every 72 Medicin hours. e metoclopram 2022-0 Yes 10mg Take 1 [facility] shawn 1-28 Tablet by [place] ([facility]) 10 00:00: mouth four of MG tablet 00 times Medicin daily. e fentanyl 2022-0 Yes [id number] 1{patch Place 25 [facility] (DURAGESIC) 1-28 102 } mcg onto [facility] 25 MCG/HR 00:00: the skin of patch 00 every 72 Medicin hours. e metoclopram 0 2021- No 10mg Take 1 [facility] bradly shawn 07-18 03-18 Tablet by [place] (REGLAN) 10 00:00: 00:00 mouth four of MG tablet 00 :00 times Medicin daily. e fentanyl 2021-0 2021- No [id number] 1{patch Place 25 [facility] (DURAGESIC) 07-18 03-11 102 } mcg onto [facility] 25 MCG/HR 00:00: 00:00 the skin of patch 00 :00 every 72 Medicin hours. e LORazepam 0 Yes 1mg Take [address] [facility] (ATIVAN) 1 1-21 by mouth [facility] tablet 12:28: every 8 Medic al 10 (eight) Center hours as needed for Anxiety. metFORMIN 0 Yes 500mg Take [address] [facility] (GLUMETZA) 1-21 mg by [facility] 500 MG 12:28: mouth Medical (MOD) 24 hr 10 daily with Ce nter tablet breakfast Dose unknown . atorvastati 0 Yes 20mg QD Take [address] [facility] (LIPITOR) 1-21 by mouth [facility] 20 MG 12:28: daily. Medical tablet 10 Center ondansetron Yes 4mg Take [address] [facility] [address] [facility] (ZOFRAN-ODT 1-21 by mouth [facility] ) 4 MG 12:28: every 8 Medical disintegrat 10 (eight) Cente r ing tablet hours as needed for Nausea. oxyCODONE-a 0 Yes 1{tbl} Take [address] [facility] [address] [facility] cetaminophe 1-21 tablet by [facility]ielle es n 12:28: mouth Medical (PERCOCET) 10 every 4 Center 10-325 mg (four) per tablet hours as needed for Pain. metFORMIN 0 Yes 500mg Take [address] [facility] (GLUMETZA) 1-21 mg by [facility] 500 MG 12:28: mouth Medical (MOD) 24 hr 10 daily with Ce nter tablet breakfast Dose unknown . calcium 2021-0 2021- No 1000mg Take 2 [facility] carbonate 1-21 02-20 [facility] (TUMS) 500 00:00: 23:59 (1,000 mg M edical mg chewable 00 :00 total) by [facility] tablet mouth 3 (three) times daily as needed for up to 30 days. calcium 2022-0 2022- No 1000mg Take 2 [facility] carbonate 1-21 02-10 [facility] (TUMS) 500 00:00: 00:00 (1,000 mg M edical mg chewable 00 :00 total) by [facility] tablet mouth 3 (three) times daily as needed for up to 30 days. calcium 2022-0 2022- No 1000mg Take 2 [facility] carbonate 1-21 02-10 [facility] (TUMS) 500 00:00: 00:00 (1,000 mg M edical mg chewable 00 :00 total) by [facility] tablet mouth 3 (three) times daily as needed for up to 30 days. calcium 2022-0 2022- No 1000mg Take 2 [facility] carbonate 1-21 02-10 [facility] (TUMS) 500 00:00: 00:00 (1,000 mg M edical mg chewable 00 :00 total) by [facility] tablet mouth 3 (three) times daily as needed for up to 30 days. calcium 2022-0 2- No 1000mg Take 2 [facility] carbonate 1-21 02-10 [facility] (TUMS) 500 00:00: 00:00 (1,000 mg M edical mg chewable 00 :00 total) by [facility] tablet mouth 3 (three) times daily as needed for up to 30 days. calcium 2022-0 2022- No 1000mg Take 2 [facility] carbonate 1-21 02-10 [facility] (TUMS) 500 00:00: 00:00 (1,000 mg M edical mg chewable 00 :00 total) by [facility] tablet mouth 3 (three) times daily as needed for up to 30 days. calcium 2022-0 2022- No 1000mg Take 2 [facility] carbonate 1-21 02-10 [facility] (TUMS) 500 00:00: 00:00 (1,000 mg M edical mg chewable 00 :00 total) by [facility] tablet mouth 3 (three) times daily as needed for up to 30 days. calcium 2022-0 2022- No 1000mg Take 2 [facility] carbonate 1-21 02-10 [facility] (TUMS) 500 00:00: 00:00 (1,000 mg M edical mg chewable 00 :00 total) by [facility] tablet mouth 3 (three) times daily as needed for up to 30 days. calcium 2022-0 2022- No 1000mg Take 2 [facility] carbonate 1-21 02-10 [facility] (TUMS) 500 00:00: 00:00 (1,000 mg M edical mg chewable 00 :00 total) by [facility] tablet mouth 3 (three) times daily as needed for up to 30 days. calcium 2022-0 2022- No 1000mg Take 2 [facility] carbonate 1-21 02-10 [facility] (TUMS) 500 00:00: 00:00 (1,000 mg M edical mg chewable 00 :00 total) by [facility] tablet mouth 3 (three) times daily as needed for up to 30 days. calcium 2022-0 2022- No 1000mg Take 2 [facility] carbonate 1-21 02-10 [facility] (TUMS) 500 00:00: 00:00 (1,000 mg M edical mg chewable 00 :00 total) by [facility] tablet mouth 3 (three) times daily as needed for up to 30 days. calcium 2022-0 2022- No 1000mg Take 2 [facility] carbonate 1-21 02-10 [facility] (TUMS) 500 00:00: 00:00 (1,000 mg M edical mg chewable 00 :00 total) by [facility] tablet mouth 3 (three) times daily as needed for up to 30 days. calcium 2022-0 2022- No 1000mg Take 2 [facility] carbonate 1-21 02-10 [facility] (TUMS) 500 00:00: 00:00 (1,000 mg M edical mg chewable 00 :00 total) by [facility] tablet mouth 3 (three) times daily as needed for up to 30 days. ciprofloxac 2022-0 2022- No 500mg Q.5D Take [address] [facility] [address] in HCl 07-11 tablet [facility] (CIPRO) 500 00:00: 23:59 (500 mg Me dical MG tablet 00 :00 total) by Cente r mouth 2 (two) times daily for 5 days. ciprofloxac 2022-0 2022- No 500mg Q.5D Take [address] in HCl 07-11 tablet [facility] (CIPRO) 500 00:00: 23:59 (500 mg Me dical MG tablet 00 :00 total) by Cente r mouth 2 (two) times daily for 5 days. ciprofloxac 2021-0 2022- No 500mg Q.5D Take [address] in HCl 07-11 tablet [facility] (CIPRO) 500 00:00: 23:59 (500 mg Me dical MG tablet 00 :00 total) by Cente r mouth 2 (two) times daily for 5 days. ciprofloxac 2021-0 2021- No 500mg Q.5D Take [address] in HCl 07-11 tablet [facility] (CIPRO) 500 00:00: 23:59 (500 mg Me dical MG tablet 00 :00 total) by Cente r mouth 2 (two) times daily for 5 days. ciprofloxac 2021-0 2- No 500mg Q.5D Take [address] in HCl 07-11 tablet [facility] (CIPRO) 500 00:00: 23:59 (500 mg Me dical MG tablet 00 :00 total) by Cente r mouth 2 (two) times daily for 5 days. ciprofloxac 2021-0 2021- No 500mg Q.5D Take [address] in HCl 07-11 tablet [facility] (CIPRO) 500 00:00: 23:59 (500 mg Me dical MG tablet 00 :00 total) by Cente r mouth 2 (two) times daily for 5 days. ciprofloxac 2021-0 2- No 500mg Q.5D Take [address] in HCl 07-11 tablet [facility] (CIPRO) 500 00:00: 23:59 (500 mg Me dical MG tablet 00 :00 total) by Cente r mouth 2 (two) times daily for 5 days. ciprofloxac 2021-0 2- No 500mg Q.5D Take [address] in HCl 07-11 tablet [facility] (CIPRO) 500 00:00: 23:59 (500 mg Me dical MG tablet 00 :00 total) by Cente r mouth 2 (two) times daily for 5 days. ciprofloxac 2021-0 2022- No 500mg Q.5D Take [address] in HCl 07-11 tablet [facility] (CIPRO) 500 00:00: 23:59 (500 mg Me dical MG tablet 00 :00 total) by Cente r mouth 2 (two) times daily for 5 days. ciprofloxac 2021- No 500mg Q.5D Take [address] in HCl 07-11 tablet [facility] (CIPRO) 500 00:00: 23:59 (500 mg Me dical MG tablet 00 :00 total) by Cente r mouth 2 (two) times daily for 5 days. allopurinoL 2021- No 100mg QD Take [address] [facility] [address] (ZYLOPRIM) 06-27 [facility] 100 MG 00:00: 00:00 (100 mg Medical tablet 00 :00 total) by Center mouth daily for 30 days. allopurinoL 2021-0 2021- No 100mg QD Take [address] [facility] [address] [facility] (ZYLOPRIM) 06-27 tablet [facility] 100 MG 00:00: 00:00 (100 mg Medical tablet 00 :00 total) by Center mouth daily for 30 days. allopurinoL 2021-0 2021- No 100mg QD Take [address] [facility] [address] [facility] (ZYLOPRIM) 06-27 tablet [facility] 100 MG 00:00: 00:00 (100 mg Medical tablet 00 :00 total) by Center mouth daily for 30 days. allopurinoL 2021-0 2021- No 100mg QD Take [address] [facility] [address] (ZYLOPRIM) 06-27 tablet [facility] 100 MG 00:00: 00:00 (100 mg Medical tablet 00 :00 total) by Center mouth daily for 30 days. allopurinoL 2021-0 2- No 100mg QD Take [address] [facility] [address] [facility] (ZYLOPRIM) 06-27 [facility] 100 MG 00:00: 00:00 (100 mg Medical tablet 00 :00 total) by Center mouth daily for 30 days. allopurinoL 2021-0 2- No 100mg QD Take [address] [facility] [address] [facility] (ZYLOPRIM) 06-27 tablet [facility] 100 MG 00:00: 00:00 (100 mg Medical tablet 00 :00 total) by Center mouth daily for 30 days. allopurinoL 2021-0 2- No 100mg QD Take [address] [facility] [address] [facility] (ZYLOPRIM) 1-07 02-08 tablet [facility] 100 MG 00:00: 00:00 (100 mg Medical tablet 00 :00 total) by Center mouth daily for 30 days. allopurinoL 2021- No 100mg QD Take [address] [facility] [address] [facility] (ZYLOPRIM) 06-27 [facility] 100 MG 00:00: 00:00 (100 mg Medical tablet 00 :00 total) by Center mouth daily for 30 days. allopurinoL 2021- No 100mg QD Take [address] [facility] [address] [facility] (ZYLOPRIM) 06-27 [facility] 100 MG 00:00: 00:00 (100 mg Medical tablet 00 :00 total) by Center mouth daily for 30 days. allopurinoL 2021- No 100mg QD Take [address] [facility] [address] [facility] (ZYLOPRIM) 06-27 [facility] 100 MG 00:00: 00:00 (100 mg Medical tablet 00 :00 total) by Center mouth daily for 30 days. allopurinoL 2021- No 100mg QD Take [address] [facility] [address] [facility] (ZYLOPRIM) 06-27 [facility] 100 MG 00:00: 00:00 (100 mg Medical tablet 00 :00 total) by Center mouth daily for 30 days. naloxegoL 2021- No 25mg QD Take [facility] Oral 06-27 tablet (25 [facility] Tab tablet 00:00: 23:59 mg total) M edical 00 :00 by mouth Center daily for 30 days. naloxegoL 2021- No 25mg QD Take 1 [facility] mg Oral 06-27- tablet (25 [facility] Tab tablet 00:00: 23:59 mg total) M edical 00 :00 by mouth Center daily for 30 days. naloxegoL 2021- No 25mg QD Take 1 [facility] mg Oral 06-27- tablet (25 [facility] Tab tablet 00:00: 23:59 mg total) M edical 00 :00 by mouth Center daily for 30 days. naloxegoL 2021- No 25mg QD Take 1 [facility] mg Oral 06-27- tablet (25 [facility] Tab tablet 00:00: 23:59 mg total) M edical 00 :00 by mouth Center daily for 30 days. naloxegoL 2021- No 25mg QD Take 1 [facility] mg Oral 06-27 tablet (25 [facility] Tab tablet 00:00: 23:59 mg total) M edical 00 :00 by mouth Center daily for 30 days. naloxegoL 2021- No 25mg QD Take 1 [facility] mg Oral 06-27 tablet (25 [facility] Tab tablet 00:00: 23:59 mg total) M edical 00 :00 by mouth Center daily for 30 days. naloxegoL 2021- No 25mg QD Take 1 [facility] mg Oral 06-27 tablet (25 [facility] Tab tablet 00:00: 23:59 mg total) M edical 00 :00 by mouth Center daily for 30 days. naloxegoL 2021- No 25mg QD Take 1 [facility] mg Oral 06-27- tablet (25 [facility] Tab tablet 00:00: 23:59 mg total) M edical 00 :00 by mouth Center daily for 30 days. naloxegoL 2021- No 25mg QD Take 1 [facility] mg Oral 06-27 tablet (25 [facility] Tab tablet 00:00: 23:59 mg total) M edical 00 :00 by mouth Center daily for 30 days. allopurinoL 2021- No 100mg QD Take [address] [facility] [address] [facility] (ZYLOPRIM) 06-27 [facility] 100 MG 00:00: 23:59 (100 mg Medical tablet 00 :00 total) by Center mouth daily for 30 days. naloxegoL 2021- No 25mg QD Take 1 [facility] mg Oral 06-27- tablet (25 [facility] Tab tablet 00:00: 23:59 mg total) M edical 00 :00 by mouth Center daily for 30 days. naloxegoL 2021- No 25mg QD Take 1 [facility] mg Oral 06-27-06 tablet (25 [facility] Tab tablet 00:00: 23:59 mg total) M edical 00 :00 by mouth Center daily for 30 days. naloxegoL 2021- No 25mg QD Take 1 [facility] mg Oral 06-27 tablet (25 [facility] Tab tablet 00:00: 23:59 mg total) M edical 00 :00 by mouth Center daily for 30 days. lisinopriL 2021-2- No 20mg QD Take [address] [facility] (PRINIVIL,Z 06-26 by mouth [facility] es ESTRIL) 20 08:52: 00:00 daily. Medi farrukh MG tablet 25 :00 [facility] lisinopriL 2- No 20mg QD Take [address] [facility] (PRINIVIL,Z 06-26 by mouth [facility] es ESTRIL) 20 08:52: 00:00 daily. Medi farrukh MG tablet 25 :00 [facility] lisinopriL 2021-2021- No 20mg QD Take [address] [facility] (PRINIVIL,Z 06-26 by mouth [facility] es ESTRIL) 20 08:52: 00:00 daily. Medi farrukh MG tablet 25 :00 [facility] lisinopriL 2- No 20mg QD Take [address] [facility] (PRINIVIL,Z 06-26 by mouth [facility] es ESTRIL) 20 08:52: 00:00 daily. Medi farrukh MG tablet 25 :00 [facility] lisinopriL 2- No 20mg QD Take [address] [facility] (PRINIVIL,Z 06-26 by mouth [facility] es ESTRIL) 20 08:52: 00:00 daily. Medi farrukh MG tablet 25 :00 [facility] lisinopriL 0 2- No 20mg QD Take [address] [facility] (PRINIVIL,Z 06-26 by mouth [facility] es ESTRIL) 20 08:52: 00:00 daily. Medi farrukh MG tablet 25 :00 Center lisinopriL 2021-0 2- No 20mg QD Take [address] [facility] (PRINIVIL,Z 06-26 by mouth [facility] es ESTRIL) 20 08:52: 00:00 daily. Medi farrukh MG tablet 25 :00 [facility] OLANZapine 2021-2- No 2.5mg QD Take [address] [facility] (ZYPREXA) 06-26-08 tablet [facility] 2.5 MG 00:00: 00:00 (2.5 mg Medical tablet 00 :00 total) by Center mouth nightly for 30 days. OLANZapine 2021-0 2022- No 2.5mg QD Take [address] [facility] (ZYPREXA) 06-26- tablet [facility] 2.5 MG 00:00: 00:00 (2.5 mg Medical tablet 00 :00 total) by Center mouth nightly for 30 days. OLANZapine 2021-0 2022- No 2.5mg QD Take [address] [facility] (ZYPREXA) 06-26- tablet [facility] 2.5 MG 00:00: 00:00 (2.5 mg Medical tablet 00 :00 total) by Center mouth nightly for 30 days. OLANZapine 2021-0 2021- No 2.5mg QD Take [address] [facility] (ZYPREXA) 06-26- tablet [facility] 2.5 MG 00:00: 00:00 (2.5 mg Medical tablet 00 :00 total) by Center mouth nightly for 30 days. OLANZapine 2021-0 2- No 2.5mg QD Take [address] [facility] (ZYPREXA) 06-26- tablet [facility] 2.5 MG 00:00: 00:00 (2.5 mg Medical tablet 00 :00 total) by Center mouth nightly for 30 days. OLANZapine 2021-0 2- No 2.5mg QD Take [address] [facility] (ZYPREXA) 06-26- tablet [facility] 2.5 MG 00:00: 00:00 (2.5 mg Medical tablet 00 :00 total) by Center mouth nightly for 30 days. OLANZapine 2021-0 2022- No 2.5mg QD Take [address] [facility] (ZYPREXA) 06-26- tablet [facility] 2.5 MG 00:00: 00:00 (2.5 mg Medical tablet 00 :00 total) by Center mouth nightly for 30 days. OLANZapine 2021-0 2022- No 2.5mg QD Take [address] [facility] (ZYPREXA) 06-26-08 tablet [facility] 2.5 MG 00:00: 00:00 (2.5 mg Medical tablet 00 :00 total) by Center mouth nightly for 30 days. OLANZapine 2021- No 2.5mg QD Take [address] [facility] (ZYPREXA) 06-26 [facility] 2.5 MG 00:00: 00:00 (2.5 mg Medical tablet 00 :00 total) by Center mouth nightly for 30 days. OLANZapine 2021- No 2.5mg QD Take [address] [facility] (ZYPREXA) 06-26 [facility] 2.5 MG 00:00: 00:00 (2.5 mg Medical tablet 00 :00 total) by Center mouth nightly for 30 days. OLANZapine 2021- No 2.5mg QD Take [address] [facility] (ZYPREXA) 06-26 tablet [facility] 2.5 MG 00:00: 00:00 (2.5 mg Medical tablet 00 :00 total) by Center mouth nightly for 30 days. fentaNYL 2021- No 1{patch Place [address] [facility] (DURAGESIC) 06-26 } patch onto [facility] 12 mcg/hr 00:00: 23:59 the skin Med ical patch 00 :00 every Center third day for 30 days. Max Daily Amount: 1 patch fentaNYL 2021- No 1{patch Place [address] [facility] [address] [facility] (DURAGESIC) 06-26 } patch onto [facility] 25 mcg/hr 00:00: 23:59 the skin Med ical patch 00 :00 every Center third day for 30 days. Max Daily Amount: 1 patch polyethylen 2021- No 17g QD Take [address] [facility] e glycol 06-26 by mouth [facility] (GLYCOLAX) 00:00: 23:59 daily for M edical 17 gram 00 :00 30 days. Center packet ursodioL 2021- No 250mg Q.5D Take 1 [facility] (ACTIGALL[facility] 06-[facility] 250 mg 00:00: 23:59 (250 mg Medical tablet 00 :00 total) by Center mouth 2 (two) times daily for 30 days. fentaNYL 2021- No 1{patch Place [address] [facility] (DURAGESIC) 06-26 } patch onto [facility] 12 mcg/hr 00:00: 23:59 the skin Med ical patch 00 :00 every Center third day for 30 days. Max Daily Amount: 1 patch fentaNYL 2021- No 1{patch Place [address] [facility] [address] [facility] (DURAGESIC) 06-26 } patch onto [facility] 25 mcg/hr 00:00: 23:59 the skin Med ical patch 00 :00 every Center third day for 30 days. Max Daily Amount: 1 patch polyethylen 2021- No 17g QD Take [address] [facility] e glycol 06-26 by mouth [facility] (GLYCOLAX) 00:00: 23:59 daily for M edical 17 gram 00 :00 30 days. Center packet ursodioL 2021- No 250mg Q.5D Take 1 [facility] (ACTIGALL[facility] 06-[facility] 250 mg 00:00: 23:59 (250 mg Medical tablet 00 :00 total) by Center mouth 2 (two) times daily for 30 days. fentaNYL 2021- No 1{patch Place [address] [facility] (DURAGESIC) 06-26 } patch onto [facility] 12 mcg/hr 00:00: 23:59 the skin Med ical patch 00 :00 every Center third day for 30 days. Max Daily Amount: 1 patch fentaNYL 2021- No 1{patch Place [address] [facility] [address] [facility] (DURAGESIC) 06-26 } patch onto [facility] 25 mcg/hr 00:00: 23:59 the skin Med ical patch 00 :00 every Center third day for 30 days. Max Daily Amount: 1 patch polyethylen 2021- No 17g QD Take [address] [facility] e glycol 06-26 by mouth [facility] (GLYCOLAX) 00:00: 23:59 daily for M edical 17 gram 00 :00 30 days. Center packet ursodioL 2021-2021- No 250mg Q.5D Take 1 [facility] (ACTIGALL) 06-[facility] 250 mg 00:00: 23:59 (250 mg Medical tablet 00 :00 total) by Center mouth 2 (two) times daily for 30 days. fentaNYL 2021-2021- No 1{patch Place [address] [facility] (DURAGESIC) 06-26 } patch onto [facility] 12 mcg/hr 00:00: 23:59 the skin Med ical patch 00 :00 every Center third day for 30 days. Max Daily Amount: 1 patch fentaNYL 2021- No 1{patch Place [address] [facility] (DURAGESIC) 06-26 } patch onto [facility] 25 mcg/hr 00:00: 23:59 the skin Med ical patch 00 :00 every Center third day for 30 days. Max Daily Amount: 1 patch polyethylen 2021- No 17g QD Take [address] [facility] e glycol 06-26 by mouth [facility] (GLYCOLAX) 00:00: 23:59 daily for M edical 17 gram 00 :00 30 days. Center packet ursodioL 2021- No 250mg Q.5D Take 1 [facility] (ACTIGALL[facility] 06-[facility] 250 mg 00:00: 23:59 (250 mg Medical tablet 00 :00 total) by Center mouth 2 (two) times daily for 30 days. fentaNYL 2021- No 1{patch Place [address] [facility] (DURAGESIC) 06-26 } patch onto [facility] 12 mcg/hr 00:00: 23:59 the skin Med ical patch 00 :00 every Center third day for 30 days. Max Daily Amount: 1 patch fentaNYL 2021- No 1{patch Place [address] [facility] (DURAGESIC) 06-26 } patch onto [facility] 25 mcg/hr 00:00: 23:59 the skin Med ical patch 00 :00 every Center third day for 30 days. Max Daily Amount: 1 patch polyethylen 2021- No 17g QD Take [address] [facility] e glycol 06-26 by mouth [facility] (GLYCOLAX) 00:00: 23:59 daily for M edical 17 gram 00 :00 30 days. Center packet ursodioL 2021-2021- No 250mg Q.5D Take 1 [facility] (ACTIGALL) 06-[facility] 250 mg 00:00: 23:59 (250 mg Medical tablet 00 :00 total) by Center mouth 2 (two) times daily for 30 days. fentaNYL 2021- No 1{patch Place [address] [facility] (DURAGESIC) 06-26 } patch onto [facility] 12 mcg/hr 00:00: 23:59 the skin Med ical patch 00 :00 every Center third day for 30 days. Max Daily Amount: 1 patch fentaNYL 2021- No 1{patch Place [address] [facility] (DURAGESIC) 06-26 } patch onto [facility] 25 mcg/hr 00:00: 23:59 the skin Med ical patch 00 :00 every Center third day for 30 days. Max Daily Amount: 1 patch polyethylen 2021- No 17g QD Take [address] [facility] e glycol 06-26 by mouth [facility] (GLYCOLAX) 00:00: 23:59 daily for M edical 17 gram 00 :00 30 days. Center packet ursodioL 2021- No 250mg Q.5D Take 1 [facility] (ACTIGALL) 06-[facility] 250 mg 00:00: 23:59 (250 mg Medical tablet 00 :00 total) by Center mouth 2 (two) times daily for 30 days. fentaNYL 2021- No 1{patch Place [address] [facility] (DURAGESIC) 06-26 } patch onto [facility] 12 mcg/hr 00:00: 23:59 the skin Med ical patch 00 :00 every Center third day for 30 days. Max Daily Amount: 1 patch fentaNYL 2021- No 1{patch Place [address] [facility] (DURAGESIC) 06-26 } patch onto [facility] 25 mcg/hr 00:00: 23:59 the skin Med ical patch 00 :00 every Center third day for 30 days. Max Daily Amount: 1 patch polyethylen 2021- No 17g QD Take [address] [facility] e glycol 06-26 by mouth [facility] (GLYCOLAX) 00:00: 23:59 daily for M edical 17 gram 00 :00 30 days. Center packet ursodioL 2021-2021- No 250mg Q.5D Take 1 [facility] (ACTIGALL[facility] 06-[facility] 250 mg 00:00: 23:59 (250 mg Medical tablet 00 :00 total) by Center mouth 2 (two) times daily for 30 days. fentaNYL 2021- No 1{patch Place [address] [facility] (DURAGESIC) 06-26 } patch onto [facility] 12 mcg/hr 00:00: 23:59 the skin Med ical patch 00 :00 every Center third day for 30 days. Max Daily Amount: 1 patch fentaNYL 2021- No 1{patch Place [address] [facility] (DURAGESIC) 06-26 } patch onto [facility] 25 mcg/hr 00:00: 23:59 the skin Med ical patch 00 :00 every Center third day for 30 days. Max Daily Amount: 1 patch polyethylen 2021- No 17g QD Take [address] [facility] e glycol 06-26 by mouth [facility] (GLYCOLAX) 00:00: 23:59 daily for M edical 17 gram 00 :00 30 days. Center packet ursodioL 2021- No 250mg Q.5D Take 1 [facility] (ACTIGALL) 06-[facility] 250 mg 00:00: 23:59 (250 mg Medical tablet 00 :00 total) by Center mouth 2 (two) times daily for 30 days. fentaNYL 2021- No 1{patch Place [address] [facility] (DURAGESIC) 06-26 } patch onto [facility] 12 mcg/hr 00:00: 23:59 the skin Med ical patch 00 :00 every Center third day for 30 days. Max Daily Amount: 1 patch fentaNYL 2021- No 1{patch Place [address] [facility] (DURAGESIC) 06-26 } patch onto [facility] 25 mcg/hr 00:00: 23:59 the skin Med ical patch 00 :00 every Center third day for 30 days. Max Daily Amount: 1 patch polyethylen 2021-2021- No 17g QD Take [address] [facility] e glycol 06-26 by mouth [facility] (GLYCOLAX) 00:00: 23:59 daily for M edical 17 gram 00 :00 30 days. Center packet ursodioL 2021- No 250mg Q.5D Take 1 [facility] (ACT[facility]ALL) 06-[facility] 250 mg 00:00: 23:59 (250 mg Medical tablet 00 :00 total) by Center mouth 2 (two) times daily for 30 days. fentaNYL 2021- No 1{patch Place [address] [facility] (DURAGESIC) 06-26 } patch onto [facility] 12 mcg/hr 00:00: 23:59 the skin Med ical patch 00 :00 every Center third day for 30 days. Max Daily Amount: 1 patch fentaNYL 2021- No 1{patch Place [address] [facility] [address] [facility] (DURAGESIC) 06-26 } patch onto [facility] 25 mcg/hr 00:00: 23:59 the skin Med ical patch 00 :00 every Center third day for 30 days. Max Daily Amount: 1 patch OLANZapine 2021- No 2.5mg QD Take [address] [facility] (ZYPREXA) 06-26 [facility] 2.5 MG 00:00: 23:59 (2.5 mg Medical tablet 00 :00 total) by Center mouth nightly for 30 days. polyethylen 2021- No 17g QD Take [address] [facility] e glycol 06-26 by mouth [facility] (GLYCOLAX) 00:00: 23:59 daily for M edical 17 gram 00 :00 30 days. [facility] packet ursodioL 2021- No 250mg Q.5D Take 1 [facility] (ACTIGALL) 06-[facility] 250 mg 00:00: 23:59 (250 mg Medical tablet 00 :00 total) by Center mouth 2 (two) times daily for 30 days. fentaNYL 2021- No 1{patch Place [address] [facility] [address] [facility] (DURAGESIC) 06-26 } patch onto [facility] 12 mcg/hr 00:00: 23:59 the skin Med ical patch 00 :00 every Center third day for 30 days. Max Daily Amount: 1 patch fentaNYL 2021- No 1{patch Place [address] [facility] (DURAGESIC) 06-26 } patch onto [facility] 25 mcg/hr 00:00: 23:59 the skin Med ical patch 00 :00 every Center third day for 30 days. Max Daily Amount: 1 patch polyethylen 2021- No 17g QD Take [address] [facility] e glycol 06-26 by mouth [facility] (GLYCOLAX) 00:00: 23:59 daily for M edical 17 gram 00 :00 30 days. Center packet ursodioL 2021- No 250mg Q.5D Take 1 [facility] (ACT[facility]ALL[facility] 06-[facility] 250 mg 00:00: 23:59 (250 mg Medical tablet 00 :00 total) by Center mouth 2 (two) times daily for 30 days. fentaNYL 2021- No 1{patch Place [address] [facility] [address] [facility] (DURAGESIC) 06-26 } patch onto [facility] 12 mcg/hr 00:00: 23:59 the skin Med ical patch 00 :00 every Center third day for 30 days. Max Daily Amount: 1 patch fentaNYL 2021- No 1{patch Place [address] [facility] [address] [facility] (DURAGESIC) 06-26 } patch onto [facility] 25 mcg/hr 00:00: 23:59 the skin Med ical patch 00 :00 every Center third day for 30 days. Max Daily Amount: 1 patch polyethylen 2021- No 17g QD Take [address] [facility] glycol 06-26 by [facility] (GLYCOLAX) 00:00: 23:59 daily for M edical 17 gram 00 :00 30 days. Center packet ursodioL 2021- No 250mg Q.5D Take 1 [facility] (ACTIGALL[facility] 250 mg 00:00: 23:59 (250 mg Medical tablet 00 :00 total) by [facility] mouth 2 (two) times daily for 30 days. bisacodyL 2021- No 10mg Take 2 [facility] (DULCOLAX[facility] 06-26 [facility] 5 mg EC 00:00: 00:00 (10 mg Medical tablet 00 :00 total) by [facility] mouth daily as needed for Constipati on for up to 30 days. bisacodyL 2021- No 10mg Take 2 [facility] (DULCOL[facility]26 [facility] 5 mg EC 00:00: 00:00 (10 mg Medical tablet 00 :00 total) by [facility] mouth daily as needed for Constipati on for up to 30 days. bisacodyL 2022-0 2022- No 10mg Take 2 [facility] (DULCOLAX[facility] 06-2617 [facility] 5 mg EC 00:00: 00:00 (10 mg Medical tablet 00 :00 total) by Center mouth daily as needed for Constipati on for up to 30 days. bisacodyL 2-0 2022- No [facility]: 00:00 (10 mg Medical tablet 00 :00 total) by Center mouth daily as needed for Constipati on for up to 30 days. bisacodyL 2-0 2- No 10mg [facility] 2 [facility] 00:00: 00:00 (10 mg Medical tablet 00 :00 total) by Center mouth daily as needed for Constipati on for up to 30 days. bisacodyL 2-0 2- No 10mg Take 2 [facility] 00:00: 00:00 (10 mg Medical tablet 00 :00 total) by Center mouth daily as needed for Constipati on for up to 30 days. bisacodyL 2-0 2022- No 10mg Take 2 [facility] 00:00: 00:00 (10 mg Medical tablet 00 :00 total) by Center mouth daily as needed for Constipati on for up to 30 days. bisacodyL 2022-0 2022- No 10mg Take 2 [facility] 00:00: 00:00 (10 mg Medical tablet 00 :00 total) by Center mouth daily as needed for Constipati on for up to 30 days. bisacodyL 2-0 2022- No 10mg Take 2 [facility] 00:00: 00:00 (10 mg Medical tablet 00 :00 total) by Center mouth daily as needed for Constipati on for up to 30 days. docusate 2021-0 2021- No 200mg Q.5D Take [address] [facility] (COLACE) 50 06-26-16 mLs (200 [facility] mg/5 mL 00:00: 23:59 mg total) Medi farrukh liquid 00 :00 by mouth 2 Center (two) times daily for 10 days. oxyCODONE-a 2021-2021- No 1{tbl} Take [address] cetaminophe 06-26-16 tablet by [facility] kes n 00:00: 23:59 mouth Medical (PERCOCET) 00 :00 every 4 Center 10-325 mg (four) per tablet hours as needed for up to 10 days. Max Daily Amount: 6 tablets docusate 2021-2021- No 200mg Q.5D Take [address] [facility] (COLACE) 50 06-26-16 mLs (200 [facility] mg/5 mL 00:00: 23:59 mg total) Medi farrukh liquid 00 :00 by mouth 2 Center (two) times daily for 10 days. oxyCODONE-a 2021- No 1{tbl} Take [address] cetaminophe 06-26-16 tablet by Louise kes n 00:00: 23:59 mouth Medical (PERCOCET) 00 :00 every 4 Center 10-325 mg (four) per tablet hours as needed for up to 10 days. Max Daily Amount: 6 tablets docusate 2021-2021- No 200mg Q.5D Take [address] [facility] (COLACE) 50 06-26-16 mLs (200 [facility] mg/5 mL 00:00: 23:59 mg total) Medi farrukh liquid 00 :00 by mouth 2 Center (two) times daily for 10 days. oxyCODONE-a 2021-2021- No 1{tbl} Take [address] cetaminophe 06-26-16 tablet by Louise kes n 00:00: 23:59 mouth Medical (PERCOCET) 00 :00 every 4 Center 10-325 mg (four) per tablet hours as needed for up to 10 days. Max Daily Amount: 6 tablets docusate 2021-2021- No 200mg Q.5D Take [address] [facility] (COLACE) 50 06-26-16 mLs (200 [facility] mg/5 mL 00:00: 23:59 mg total) Medi farrukh liquid 00 :00 by mouth 2 Center (two) times daily for 10 days. oxyCODONE-a 2021- No 1{tbl} Take [address] cetaminophe 06-2616 tablet by Louise kes n 00:00: 23:59 mouth Medical (PERCOCET) 00 :00 every 4 Center 10-325 mg (four) per tablet hours as needed for up to 10 days. Max Daily Amount: 6 tablets docusate 2021- No 200mg Q.5D Take [address] [facility] (COLACE) 50 06-26-16 mLs (200 [facility] mg/5 mL 00:00: 23:59 mg total) Medi farrukh liquid 00 :00 by mouth 2 Center (two) times daily for 10 days. oxyCODONE-a 2021- No 1{tbl} Take [address] cetaminophe 06-2616 tablet by Louise kes n 00:00: 23:59 mouth Medical (PERCOCET) 00 :00 every 4 Center 10-325 mg (four) per tablet hours as needed for up to 10 days. Max Daily Amount: 6 tablets docusate 2021- No 200mg Q.5D Take [address] [facility] (COLACE) 50 06-26-16 mLs (200 [facility] mg/5 mL 00:00: 23:59 mg total) Medi farrukh liquid 00 :00 by mouth 2 Center (two) times daily for 10 days. oxyCODONE-a 2021- No 1{tbl} Take [address] cetaminophe 06-2616 tablet by Louise kes n 00:00: 23:59 mouth Medical (PERCOCET) 00 :00 every 4 Center 10-325 mg (four) per tablet hours as needed for up to 10 days. Max Daily Amount: 6 tablets docusate 2021- No 200mg Q.5D Take [address] [facility] (COLACE) 50 06-26-16 mLs (200 [facility] mg/5 mL 00:00: 23:59 mg total) Medi farrukh liquid 00 :00 by mouth 2 Center (two) times daily for 10 days. oxyCODONE-a 2021-2021- No 1{tbl} Take [address] cetaminophe 06-2616 tablet by Louise kes n 00:00: 23:59 mouth Medical (PERCOCET) 00 :00 every 4 Center 10-325 mg (four) per tablet hours as needed for up to 10 days. Max Daily Amount: 6 tablets docusate 2021-2021- No 200mg Q.5D Take [address] [facility] (COLACE) 50 06-26-16 mLs (200 [facility] mg/5 mL 00:00: 23:59 mg total) Medi farrukh liquid 00 :00 by mouth 2 Center (two) times daily for 10 days. oxyCODONE-a 2021- No 1{tbl} Take [address] cetaminophe 06-26 tablet by Louise kes n 00:00: 23:59 mouth Medical (PERCOCET) 00 :00 every 4 Center 10-325 mg (four) per tablet hours as needed for up to 10 days. Max Daily Amount: 6 tablets docusate 2021-2021- No 200mg Q.5D Take [address] [facility] (COLACE) 50 06-26-16 mLs (200 [facility] mg/5 mL 00:00: 23:59 mg total) Medi farrukh liquid 00 :00 by mouth 2 Center (two) times daily for 10 days. oxyCODONE-a 2021-2021- No 1{tbl} Take [address] cetaminophe 06-26-16 tablet by Louise giangs n 00:00: 23:59 mouth Medical (PERCOCET) 00 :00 every 4 Center 10-325 mg (four) per tablet hours as needed for up to 10 days. Max Daily Amount: 6 tablets ondansetron 2021-2021- No 4mg Take [address] [facility] (ZOFRAN-ODT 06-26-13 tablet (4 Louise kes ) 4 MG 00:00: 23:59 mg total) Medic al disintegrat 00 :00 by mouth Cent er ing tablet every 4 (four) hours as needed for up to 7 days. ondansetron 2021-2021- No 4mg Take [address] [facility] (ZOFRAN-ODT 1-06 01-13 tablet (4 Louise kes ) 4 MG 00:00: 23:59 mg total) Medic al disintegrat 00 :00 by mouth Cent er ing tablet every 4 (four) hours as needed for up to 7 days. ondansetron 2021-0 2- No 4mg Take [address] [facility] (ZOFRAN-ODT 06-26 tablet (4 Louise kes ) 4 MG 00:00: 23:59 mg total) Medic al disintegrat 00 :00 by mouth Cent er ing tablet every 4 (four) hours as needed for up to 7 days. ondansetron 2021-0 2021- No 4mg Take [address] [facility] (ZOFRAN-ODT 06-26 tablet (4 Louise kes ) 4 MG 00:00: 23:59 mg total) Medic al disintegrat 00 :00 by mouth Cent er ing tablet every 4 (four) hours as needed for up to 7 days. ondansetron 2021-0 2021- No 4mg Take [address] [facility] (ZOFRAN-ODT 06-26 tablet (4 Louise kes ) 4 MG 00:00: 23:59 mg total) Medic al disintegrat 00 :00 by mouth Cent er ing tablet every 4 (four) hours as needed for up to 7 days. ondansetron 2021-0 2021- No 4mg Take [address] [facility] (ZOFRAN-ODT 06-26 tablet (4 Louise kes ) 4 MG 00:00: 23:59 mg total) Medic al disintegrat 00 :00 by mouth Cent er ing tablet every 4 (four) hours as needed for up to 7 days. ondansetron 2021-0 2- No 4mg Take [address] [facility] (ZOFRAN-ODT 06-26 tablet (4 Louise kes ) 4 MG 00:00: 23:59 mg total) Medic al disintegrat 00 :00 by mouth Cent er ing tablet every 4 (four) hours as needed for up to 7 days. ondansetron 2021-0 2- No 4mg Take [address] [facility] (ZOFRAN-ODT 06-26 tablet (4 Louise kes ) 4 MG 00:00: 23:59 mg total) Medic al disintegrat 00 :00 by mouth Cent er ing tablet every 4 (four) hours as needed for up to 7 days. potassium 2021-0 2021- No 20meq QD Take [address] [facility] chloride SA 06-2611 tablet (20 [facility] (K-DUR,KLOR 00:00: 23:59 mEq total) Medical -CON-M) 20 00 :00 by mouth Cente r MEQ tablet daily for 5 doses. potassium 2021-0 2021- No 20meq QD Take [address] [facility] chloride SA 06-26 tablet (20 [facility] (K-DUR,KLOR 00:00: 23:59 mEq total) Medical -CON-M) 20 00 :00 by mouth Cente r MEQ tablet daily for 5 doses. potassium 2021-0 2021- No 20meq QD Take [address] [facility] chloride SA 06-26 tablet (20 [facility] (K-DUR,KLOR 00:00: 23:59 mEq total) Medical -CON-M) 20 00 :00 by mouth Cente r MEQ tablet daily for 5 doses. potassium 2021-0 2021- No 20meq QD Take [address] [facility] chloride SA 06-26 tablet (20 [facility] (K-DUR,KLOR 00:00: 23:59 mEq total) Medical -CON-M) 20 00 :00 by mouth Cente r MEQ tablet daily for 5 doses. potassium 2021-0 2021- No 20meq QD Take [address] [facility] chloride SA 06-26 tablet (20 [facility] (K-DUR,KLOR 00:00: 23:59 mEq total) Medical -CON-M) 20 00 :00 by mouth Cente r MEQ tablet daily for 5 doses. potassium 2021-0 2021- No 20meq QD Take [address] [facility] chloride SA 06-26 tablet (20 [facility] (K-DUR,KLOR 00:00: 23:59 mEq total) Medical -CON-M) 20 00 :00 by mouth Cente r MEQ tablet daily for 5 doses. potassium 2021-0 2021- No 20meq QD Take [address] [facility] chloride SA 06-2611 tablet (20 [facility] (K-DUR,KLOR 00:00: 23:59 mEq total) Medical -CON-M) 20 00 :00 by mouth Cente r MEQ tablet daily for 5 doses. potassium 2021- No 20meq QD Take [address] [facility] chloride SA 06-26-11 tablet (20 [facility] (K-DUR,KLOR 00:00: 23:59 mEq total) Medical -CON-M) 20 00 :00 by mouth Cente r MEQ tablet daily for 5 doses. fentanyl Yes [id number] 1{patch Place 1 [facility] (DURAGESIC) 1-05 102 } Patch onto Co llege 12 MCG/HR 00:00: the skin of patch 00 every 72 Medicin hours. Use e in addition to 25mcg patch oxycodone-a Yes [id number] 1{tbl} Take 1 [facility] cetaminophe 1-05 102 Tablet by [facility] lege n 00:00: mouth of (PERCOCET) 00 every 4 Medici n 10-325 MG hours as e per tablet needed. fentanyl Yes [id number] 1{patch Place 1 [facility] (DURAGESIC) 1-05 102 } Patch onto Co llege 12 MCG/HR 00:00: the skin of patch 00 every 72 Medicin hours. Use e in addition to 25mcg patch oxycodone-a Yes [id number] 1{tbl} Take 1 [facility] cetaminophe 1-05 102 Tablet by [facility] n 00:00: mouth of (PERCOCET) 00 every 4 Medici n 10-325 MG hours as e per tablet needed. fentanyl Yes [id number] 1{patch Place 1 [facility] (DURAGESIC) 1-05 102 } Patch onto Co llege 12 MCG/HR 00:00: the skin of patch 00 every 72 Medicin hours. Use e in addition to 25mcg patch oxycodone-a Yes [id number] 1{tbl} Take 1 [facility] cetaminophe 1-05 102 Tablet by [facility]ge n 00:00: mouth of (PERCOCET) 00 every 4 Medici n 10-325 MG hours as e per tablet needed. oxycodone-a Yes [id number] 1{tbl} Take 1 [facility] cetaminophe 1-05 102 Tablet by Col lege n 00:00: mouth of (PERCOCET) 00 every 4 Medici n 10-325 MG hours as e per tablet needed. fentanyl Yes [id number] 1{patch Place 1 [facility] (DURAGESIC) 1-05 102 } Patch onto Co llege 12 MCG/HR 00:00: the skin of patch 00 every 72 Medicin hours. Use e in addition to 25mcg patch oxycodone-a Yes [id number] 1{tbl} Take 1 [facility] cetaminophe 1-05 102 Tablet by [facility] n 00:00: mouth of (PERCOCET) 00 every 4 Medici n 10-325 MG hours as e per tablet needed. oxycodone-a Yes [id number] 1{tbl} Take 1 [facility] cetaminophe 1-05 102 Tablet by Col lege n 00:00: mouth of (PERCOCET) 00 every 4 Medici n 10-325 MG hours as e per tablet needed. oxycodone-a Yes [id number] 1{tbl} Take 1 [facility] cetaminophe 1-05 102 Tablet by Col lege n 00:00: mouth of (PERCOCET) 00 every 4 Medici n 10-325 MG hours as e per tablet needed. oxycodone-a Yes [id number] 1{tbl} Take 1 [facility] cetaminophe 1-05 102 Tablet by [facility] n 00:00: mouth of (PERCOCET) 00 every 4 Medici n 10-325 MG hours as e per tablet needed. oxycodone-a Yes [id number] 1{tbl} Take 1 [facility] cetaminophe 1-05 102 Tablet by [facility] n 00:00: mouth of (PERCOCET) 00 every 4 Medici n 10-325 MG hours as e per tablet needed. oxycodone-a Yes [id number] 1{tbl} Take 1 [facility] cetaminophe 1-05 102 Tablet by Col lege n 00:00: mouth of (PERCOCET) 00 every 4 Medici n 10-325 MG hours as e per tablet needed. oxycodone-a Yes [id number] 1{tbl} Take 1 [facility] cetaminophe 1-05 102 Tablet by [facility] lege n 00:00: mouth of (PERCOCET) 00 every 4 Medici n 10-325 MG hours as e per tablet needed. oxycodone-a Yes [id number] 1{tbl} Take 1 [facility] cetaminophe 1-05 102 Tablet by Col lege n 00:00: mouth of (PERCOCET) 00 every 4 Medici n 10-325 MG hours as e per tablet needed. oxycodone-a Yes [id number] 1{tbl} Take 1 [facility] cetaminophe 1-05 102 Tablet by Col lege n 00:00: mouth of (PERCOCET) 00 every 4 Medici n 10-325 MG hours as e per tablet needed. fentanyl Yes [id number] 1{patch Place 1 [facility] (DURAGESIC) 1-05 102 } Patch onto Co llege 12 MCG/HR 00:00: the skin of patch 00 every 72 Medicin hours. Use e in addition to 25mcg patch oxycodone-a Yes [id number] 1{tbl} Take 1 [facility] cetaminophe 1-05 102 Tablet by [facility] n 00:00: mouth of (PERCOCET) 00 every 4 Medici n 10-325 MG hours as e per tablet needed. fentanyl Yes [id number] 1{patch Place 1 [facility] (DURAGESIC) 1-05 102 } Patch onto Co llege 12 MCG/HR 00:00: the skin of patch 00 every 72 Medicin hours. Use e in addition to 25mcg patch oxycodone-a Yes [id number] 1{tbl} Take 1 [facility] cetaminophe 1-05 102 Tablet by Col lege n 00:00: mouth of (PERCOCET) 00 every 4 Medici n 10-325 MG hours as e per tablet needed. fentanyl 2021- No [id number] 1{patch Place 1 [facility] (DURAGESIC) 1-05 03-18 102 } Patch onto C ollege 12 MCG/HR 00:00: 00:00 the skin of patch 00 :00 every 72 Medicin hours. Use e in addition to 25mcg patch oxyCODONE-a 2021- No 1{tbl} Take [address] cetaminophe 1-05 02-10 tablet by Louise abarca 00:00: 00:00 mouth Medical (PERCOCET) 00 :00 every 4 Center 10-325 mg (four) per tablet hours as needed. oxyCODONE-a 2021- No 1{tbl} Take [address] cetaminophe 1-05 02-10 tablet by Louise abarca 00:00: 00:00 mouth Medical (PERCOCET) 00 :00 every 4 Center 10-325 mg (four) per tablet hours as needed. oxyCODONE-a 2021- No 1{tbl} Take [address] cetaminophe 1-05 02-10 tablet by Louise abarca 00:00: 00:00 mouth Medical (PERCOCET) 00 :00 every 4 Center 10-325 mg (four) per tablet hours as needed. oxyCODONE-a 2021- No 1{tbl} Take [address] cetaminophe 1-05 02-10 tablet by Louise abarca 00:00: 00:00 mouth Medical (PERCOCET) 00 :00 every 4 Center 10-325 mg (four) per tablet hours as needed. oxyCODONE-a 2021- No 1{tbl} Take [address] cetaminophe 1-05 02-10 tablet by Louise abarca 00:00: 00:00 mouth Medical (PERCOCET) 00 :00 every 4 Center 10-325 mg (four) per tablet hours as needed. oxyCODONE-a 2021- No 1{tbl} Take [address] cetaminophe 1-05 02-10 tablet by Louise abarca 00:00: 00:00 mouth Medical (PERCOCET) 00 :00 every 4 Center 10-325 mg (four) per tablet hours as needed. oxyCODONE-a 2021- No 1{tbl} Take [address] cetaminophe 1-05 02-10 tablet by Louise abarca 00:00: 00:00 mouth Medical (PERCOCET) 00 :00 every 4 Center 10-325 mg (four) per tablet hours as needed. oxyCODONE-a 2021- No 1{tbl} Take [address] cetaminophe 1-05 02-10 tablet by Louise abarca 00:00: 00:00 mouth Medical (PERCOCET) 00 :00 every 4 Center 10-325 mg (four) per tablet hours as needed. oxyCODONE-a 2021- No 1{tbl} Take [address] cetaminophe 1-05 02-10 tablet by Louise abarca 00:00: 00:00 mouth Medical (PERCOCET) 00 :00 every 4 Center 10-325 mg (four) per tablet hours as needed. oxyCODONE-a 2021- No 1{tbl} Take [address] cetaminophe 1-05 02-10 tablet by Louise abarca 00:00: 00:00 mouth Medical (PERCOCET) 00 :00 every 4 Center 10-325 mg (four) per tablet hours as needed. oxyCODONE-a 2021- No 1{tbl} Take [address] cetaminophe 1-05 02-10 tablet by Louise abarca 00:00: 00:00 mouth Medical (PERCOCET) 00 :00 every 4 Center 10-325 mg (four) per tablet hours as needed. oxyCODONE-a 2021- No 1{tbl} Take [address] cetaminophe 1-05 02-10 tablet by Louise abarca 00:00: 00:00 mouth Medical (PERCOCET) 00 :00 every 4 Center 10-325 mg (four) per tablet hours as needed. fentanyl 2021- No [id number] 1{patch Place 25 [facility] (DURAGESIC) 06-25 102 } mcg onto Col lege 25 MCG/HR 00:00: 00:00 the skin of patch 00 :00 every 72 Medicin hours. Use e in addition to 12mcg patch fentanyl 2021- No [id number] 1{patch Place 25 [facility] (DURAGESIC) 06-25 102 } mcg onto Col lege 25 MCG/HR 00:00: 00:00 the skin of patch 00 :00 every 72 Medicin hours. Use e in addition to 12mcg patch acetaminoph 2021- No [id number] 1{tbl} Take 1 Tab [facility] en-codeine 01-05 by mouth [facility] (TYLENOL 00:00: 00:00 every 4 of #3) 300-30 00 :00 hours as Medic in MG per needed for e tablet Pain. INA# [id number] acetaminoph 2021- No [id number] 1{tbl} Take 1 Tab [facility] en-codeine 01-05 by mouth [facility] (TYLENOL 00:00: 00:00 every 4 of #3) 300-30 00 :00 hours as Medic in MG per needed for e tablet Pain. INA# [id number] Vital Signs Vital Name Observation Time Observation Value Comments Source Systolic blood 2022-08-03 14:45:00 106 mm[Hg] [facility] Diastolic blood 2022-08-03 14:45:00 73 mm[Hg] [facility] Heart rate 2022-08-03 14:45:00 104 /min [facility] Body temperature 2022-08-03 14:45:00 36.44 [facility] Body height 2022-08-03 14:45:00 154.9 cm [facility] Body weight 2022-08-03 14:45:00 82.192 kg [facility] BMI 2022-08-03 14:45:00 34.24 kg/m2 [facility] Systolic blood 2022-07-15 14:45:00 128 mm[Hg] [facility] Diastolic blood 2022-07-15 14:45:00 87 mm[Hg] [facility] Heart rate 2022-07-15 14:45:00 89 /min [facility] Body temperature 2022-07-15 14:45:00 36.78 [facility] Body height 2022-07-15 14:45:00 154.9 cm [facility] Body weight 2022-07-15 14:45:00 85.276 kg [facility] BMI 2022-07-15 14:45:00 35.52 kg/m2 [facility] HEIGHT 2022-07-02 10:59:00 154.9 cm WEIGHT 2022-07-02 10:59:00 84.006 kg HEIGHT 2022-07-02 10:59:00 154.9 cm WEIGHT 2022-07-02 10:59:00 84.006 kg HEIGHT 2022-07-02 10:59:00 154.9 cm WEIGHT 2022-07-02 10:59:00 84.006 kg Systolic blood 2022-07-01 17:07:00 134 mm[Hg] [facility] Medicine Diastolic blood 2022-07-01 17:07:00 88 mm[Hg] [facility] pressure Medicine Heart rate 2022-07-01 17:07:00 94 /min [facility] Body temperature 2022-07-01 17:07:00 36.67 [facility] Body height 2022-07-01 17:07:00 154.9 cm [facility] Body weight 2022-07-01 17:07:00 83.734 kg [facility] BMI 2022-07-01 17:07:00 34.88 kg/m2 [facility] Systolic blood 2022-06-03 16:14:00 129 mm[Hg] [facility] pressure Medicine Diastolic blood 2022-06-03 16:14:00 88 mm[Hg] [facility] Medicine Heart rate 2022-06-03 16:14:00 94 /min [facility] Body temperature 2022-06-03 16:14:00 36.72 [facility] Body height 2022-06-03 16:14:00 154.9 cm [facility] Body weight 2022-06-03 16:14:00 82.464 kg [facility] BMI 2022-06-03 16:14:00 34.35 kg/m2 [facility] Systolic blood 2022-05-06 16:03:00 155 mm[Hg] [facility] [employer] [facility] Medicine Diastolic blood 2022-05-06 16:03:00 92 mm[Hg] [facility] pressure Medicine Heart rate 2022-05-06 16:03:00 92 /min [facility] Body temperature 2022-05-06 16:03:00 36.67 [facility] Body height 2022-05-06 16:03:00 154.9 cm [facility] Body weight 2022-05-06 16:03:00 82.373 kg [facility] BMI 2022-05-06 16:03:00 34.31 kg/m2 [facility] Systolic blood 2022-03-25 14:39:00 152 mm[Hg] [facility] of pressure Medicine Diastolic blood 2022-03-25 14:39:00 92 mm[Hg] [facility] pressure Medicine Heart rate 2022-03-25 14:39:00 101 /min [facility] Body temperature 2022-03-25 14:39:00 36.61 [facility] Body height 2022-03-25 14:39:00 154.9 cm [facility] Body weight 2022-03-25 14:39:00 81.375 kg [facility] BMI 2022-03-25 14:39:00 33.90 kg/m2 [facility] Systolic blood 2022-03-09 15:06:00 148 mm[Hg] [facility] pressure Medicine Diastolic blood 2022-03-09 15:06:00 102 mm[Hg] [facility] pressure Medicine Heart rate 2022-03-09 15:06:00 96 /min [facility] Body temperature 2022-03-09 15:06:00 36.78 [facility] Body height 2022-03-09 15:06:00 154.9 cm [facility] Body weight 2022-03-09 15:06:00 80.922 kg [facility] BMI 2022-03-09 15:06:00 33.71 kg/m2 [facility] Systolic blood 2022-02-02 13:35:00 131 mm[Hg] [facility] of pressure Medicine Diastolic blood 2022-02-02 13:35:00 84 mm[Hg] [facility] of pressure Medicine Heart rate 2022-02-02 13:35:00 84 /min [facility] Body temperature 2022-02-02 13:35:00 36.44 [facility] Body height 2022-02-02 13:35:00 154.9 cm [facility] Body weight 2022-02-02 13:35:00 81.557 kg [facility] BMI 2022-02-02 13:35:00 33.97 kg/m2 [facility] Systolic blood 2022-01-19 13:28:00 136 mm[Hg] [facility] of pressure Medicine Diastolic blood 2022-01-19 13:28:00 83 mm[Hg] [facility] pressure Medicine Heart rate 2022-01-19 13:28:00 83 /min [facility] Body temperature 2022-01-19 13:28:00 36.78 [facility] Body height 2022-01-19 13:28:00 154.9 cm [facility] Body weight 2022-01-19 13:28:00 80.74 kg [facility] BMI 2022-01-19 13:28:00 33.63 kg/m2 [facility] Systolic blood 2021-12-29 13:19:00 152 mm[Hg] [facility] of pressure Medicine Diastolic blood 2021-12-29 13:19:00 98 mm[Hg] [facility] pressure Medicine Heart rate 2021-12-29 13:19:00 85 /min [facility] Body height 2021-12-29 13:19:00 154.9 cm [facility] Body weight 2021-12-29 13:19:00 79.289 kg [facility] BMI 2021-12-29 13:19:00 33.03 kg/m2 [facility] Systolic blood 2021-12-19 13:36:00 153 mm[Hg] [facility] pressure Medicine Diastolic blood 2021-12-19 13:36:00 97 mm[Hg] [facility] pressure Medicine Heart rate 2021-12-19 13:36:00 78 /min [facility] Body temperature 2021-12-19 13:36:00 36.67 [facility] Body height 2021-12-19 13:36:00 154.9 cm [facility] Body weight 2021-12-19 13:36:00 78.563 kg [facility] BMI 2021-12-19 13:36:00 32.73 kg/m2 [facility] Systolic blood 2021-12-05 13:33:00 162 mm[Hg] [facility] pressure Medicine Diastolic blood 2021-12-05 13:33:00 98 mm[Hg] [facility] Medicine Heart rate 2021-12-05 13:33:00 83 /min [facility] Body temperature 2021-12-05 13:33:00 36.5 [facility] Respiratory rate 2021-12-05 13:33:00 18 /min [facility] Body height 2021-12-05 13:33:00 154.9 cm [facility] Body weight 2021-12-05 13:33:00 78.472 kg [facility] BMI 2021-12-05 13:33:00 32.69 kg/m2 [facility] Systolic blood 2021-11-28 13:26:00 141 mm[Hg] [facility] pressure Medicine Diastolic blood 2021-11-28 13:26:00 83 mm[Hg] [facility] Medicine Heart rate 2021-11-28 13:26:00 85 /min [facility] ollege of [facility] Body temperature 2021-11-28 13:26:00 36.67 Anastasiia [facility] Body height 2021-11-28 13:26:00 154.9 cm [facility] ollege of [facility] Body weight 2021-11-28 13:26:00 79.47 kg [facility] of Medicine BMI 2021-11-28 13:26:00 33.10 kg/m2 [facility] ol[facility] of Medicine Systolic blood 2021-11-14 13:23:00 137 mm[Hg] [facility] pressure Medicine Diastolic blood 2021-11-14 13:23:00 93 mm[Hg] [facility] pressure Medicine Heart rate 2021-11-14 13:23:00 81 /min [facility] ol[facility] of Medicine Body temperature 2021-11-14 13:23:00 36.67 Anastasiia [facility] Body height 2021-11-14 13:23:00 154.9 cm [facility] of [facility] Body weight 2021-11-14 13:23:00 78.563 kg [facility] of [facility] BMI 2021-11-14 13:23:00 32.73 kg/m2 [facility] ol[facility] of Medicine Systolic blood 2021-11-07 12:57:00 137 mm[Hg] [facility] pressure Medicine Diastolic blood 2021-11-07 12:57:00 89 mm[Hg] [facility] pressure Medicine Heart rate 2021-11-07 12:57:00 98 /min [facility] ol[facility] of Medicine Body temperature 2021-11-07 12:57:00 36.5 Anastasiia [facility] Respiratory rate 2021-11-07 12:57:00 18 /min [facility] Body height 2021-11-07 12:57:00 154.9 cm [facility] of [facility] Body weight 2021-11-07 12:57:00 78.2 kg [facility] of [facility] BMI 2021-11-07 12:57:00 32.57 kg/m2 [facility] ol[facility] of Medicine Systolic blood 2021-10-24 13:31:00 144 mm[Hg] [facility] pressure Medicine Diastolic blood 2021-10-24 13:31:00 94 mm[Hg] [facility] pressure Medicine Heart rate 2021-10-24 13:31:00 102 /min [facility] of Medicine Body temperature 2021-10-24 13:31:00 36.67 Anastasiia [facility] Body height 2021-10-24 13:31:00 154.9 cm [facility] of Medicine Body weight 2021-10-24 13:31:00 78.472 kg [facility] BMI 2021-10-24 13:31:00 32.69 kg/m2 [facility] of Medicine Systolic blood 2021-10-17 14:12:00 137 mm[Hg] [facility] of pressure Medicine Diastolic blood 2021-10-17 14:12:00 94 mm[Hg] [facility] pressure Medicine Heart rate 2021-10-17 12:48:00 104 /min [facility] of Medicine Body temperature 2021-10-17 12:48:00 36.78 Anastasiia [facility] Body height 2021-10-17 12:48:00 154.9 cm [facility] ol[facility] of Medicine Body weight 2021-10-17 12:48:00 79.198 kg [facility] of [facility] BMI 2021-10-17 12:48:00 32.99 kg/m2 [facility] ol[facility] of Medicine Systolic blood 2021-10-03 13:36:00 131 mm[Hg] [facility] pressure Medicine Diastolic blood 2021-10-03 13:36:00 84 mm[Hg] [facility] Medicine Heart rate 2021-10-03 13:36:00 92 /min [facility] of Medicine Body temperature 2021-10-03 13:36:00 36.56 Anastasiia [facility] Respiratory rate 2021-10-03 13:36:00 18 /min [facility] Body height 2021-10-03 13:36:00 154.9 cm [facility] of Medicine Body weight 2021-10-03 13:36:00 78.019 kg [facility] of [facility] BMI 2021-10-03 13:36:00 32.50 kg/m2 [facility] ol[facility] of Medicine Systolic blood 2021-09-26 13:06:00 136 mm[Hg] [facility] of pressure Medicine Diastolic blood 2021-09-26 13:06:00 90 mm[Hg] [facility] of pressure Medicine Heart rate 2021-09-26 13:06:00 92 /min [facility] ol[facility] of Medicine Body temperature 2021-09-26 13:06:00 36.67 Anastasiia [facility] Body height 2021-09-26 13:06:00 154.9 cm [facility] of Medicine Body weight 2021-09-26 13:06:00 78.472 kg [facility] Medicine BMI 2021-09-26 13:06:00 32.69 kg/m2 [facility] of Medicine Systolic blood 2021-09-26 13:00:00 136 mm[Hg] [facility] of pressure Medicine Diastolic blood 2021-09-26 13:00:00 90 mm[Hg] [facility] of pressure Medicine Heart rate 2021-09-26 13:00:00 92 /min [facility] of Medicine Body temperature 2021-09-26 13:00:00 36.67 Anastasiia [facility] Body height 2021-09-26 13:00:00 154.9 cm [facility] Body weight 2021-09-26 13:00:00 78.472 kg [facility] Medicine BMI 2021-09-26 13:00:00 32.69 kg/m2 [facility] of Medicine Respiratory rate 2021-09-10 17:22:00 16 /min [facility] Body height 2021-09-10 17:22:00 154.9 cm [facility] Body weight 2021-09-10 17:22:00 78.019 kg [facility] BMI 2021-09-10 17:22:00 32.50 kg/m2 [facility] Medicine Systolic blood 2021-09-05 12:49:00 156 mm[Hg] [facility] pressure Medicine Diastolic blood 2021-09-05 12:49:00 99 mm[Hg] [facility] of pressure Medicine Heart rate 2021-09-05 12:49:00 94 /min [facility] Body temperature 2021-09-05 12:49:00 36.83 Anastasiia [facility] Body height 2021-09-05 12:49:00 154.9 cm [facility] Body weight 2021-09-05 12:49:00 76.386 kg [facility] BMI 2021-09-05 12:49:00 31.82 kg/m2 [facility] Medicine Systolic blood 2021-08-29 13:57:00 145 mm[Hg] [facility] of pressure Medicine Diastolic blood 2021-08-29 13:57:00 100 mm[Hg] [facility] pressure Medicine Heart rate 2021-08-29 13:57:00 89 /min [facility] Body temperature 2021-08-29 13:57:00 36.78 Anastasiia [facility] Body height 2021-08-29 13:57:00 154.9 cm [facility] ol[facility] of [facility] Body weight 2021-08-29 13:57:00 78.019 kg [facility] of [facility] BMI 2021-08-29 13:57:00 32.50 kg/m2 [facility] ol[facility] of Medicine Systolic blood 2021-08-08 15:08:00 144 mm[Hg] [facility] of pressure Medicine Diastolic blood 2021-08-08 15:08:00 99 mm[Hg] [facility] pressure Medicine Heart rate 2021-08-08 15:08:00 106 /min [facility] ol[facility] of Medicine Body temperature 2021-08-08 15:08:00 36.67 Anastasiia [facility] Body height 2021-08-08 15:08:00 154.9 cm [facility] ol[facility] of [facility] Body weight 2021-08-08 15:08:00 79.198 kg [facility] ol[facility] of Medicine BMI 2021-08-08 15:08:00 32.99 kg/m2 [facility] ol[facility] of Medicine Systolic blood 2021-08-01 16:23:00 131 mm[Hg] [facility] of pressure Medicine Diastolic blood 2021-08-01 16:23:00 89 mm[Hg] [facility] of pressure Medicine Heart rate 2021-08-01 16:23:00 89 /min [facility] Medicine Body temperature 2021-08-01 16:23:00 36.67 Anastasiia [facility] Body height 2021-08-01 16:23:00 154.9 cm [facility] Body weight 2021-08-01 16:23:00 77.384 kg [facility] BMI 2021-08-01 16:23:00 32.23 kg/m2 [facility] Systolic blood 2021-07-18 15:20:00 144 mm[Hg] [facility] pressure Medicine Diastolic blood 2021-07-18 15:20:00 94 mm[Hg] [facility] Medicine Heart rate 2021-07-18 15:20:00 97 /min [facility] ol[facility] of Medicine Body temperature 2021-07-18 15:20:00 36.67 Anastasiia [facility] Respiratory rate 2021-07-18 15:20:00 18 /min [facility] Body weight 2021-07-18 15:20:00 75.388 kg [facility] of [facility] BMI 2021-07-18 15:20:00 31.40 kg/m2 [facility] ol[facility] of Medicine Systolic blood 2021-07-18 15:19:00 144 mm[Hg] [facility] Medicine Diastolic blood 2021-07-18 15:19:00 94 mm[Hg] [facility] Medicine Heart rate 2021-07-18 15:19:00 97 /min [facility] Medicine Body temperature 2021-07-18 15:19:00 36.67 Anastasiia [facility] Respiratory rate 2021-07-18 15:19:00 18 /min [facility] Body weight 2021-07-18 15:19:00 75.388 kg [facility] Medicine BMI 2021-07-18 15:19:00 31.40 kg/m2 [facility] Medicine WEIGHT 2021-07-10 09:57:00 71.668 kg WEIGHT 2021-07-10 09:57:00 71.668 kg WEIGHT 2021-06-22 07:34:00 73.4 kg HEIGHT 2021-06-03 09:09:00 154.9 cm WEIGHT 2021-06-03 09:09:00 81.6 kg WEIGHT 2021-06-22 07:34:00 73.4 kg HEIGHT 2021-06-03 09:09:00 154.9 cm WEIGHT 2021-06-03 09:09:00 81.6 kg Systolic blood 2022-07-02 10:59:00 128 mm[Hg] [facility] Diastolic blood 2022-07-02 10:59:00 88 mm[Hg] [facility] Heart rate 2022-07-02 10:59:00 79 /min [facility] Body temperature 2022-07-02 10:59:00 36.67 Anastasiia [facility] Respiratory rate 2022-07-02 10:59:00 18 /min [facility] Body height 2022-07-02 10:59:00 154.9 cm [facility] Body weight 2022-07-02 10:59:00 84.006 kg [facility] BMI 2022-07-02 10:59:00 34.99 kg/m2 [facility] Oxygen saturation in 2022-07-02 10:59:00 98 /min [facility] Arterial blood by Medical Ce nter Pulse oximetry Systolic blood 2021-08-04 12:54:00 106 mm[Hg] [facility] Diastolic blood 2021-08-04 12:54:00 60 mm[Hg] [facility] Heart rate 2021-08-04 12:54:00 78 /min [facility] Respiratory rate 2021-08-04 12:54:00 17 /min [facility] Oxygen saturation in 2021-08-04 12:54:00 97 /min [facility] Arterial blood by Medical Ce nter Pulse oximetry Systolic blood 2021-07-11 11:00:00 110 mm[Hg] [facility] Diastolic blood 2021-07-11 11:00:00 77 mm[Hg] [facility] Heart rate 2021-07-11 11:00:00 69 /min [facility] Body temperature 2021-07-11 11:00:00 36.78 Anastasiia [facility] Respiratory rate 2021-07-11 11:00:00 18 /min [facility] Oxygen saturation in 2021-07-11 11:00:00 99 /min [facility] Arterial blood by Medical Ce [facility]ter Pulse oximetry Body weight 2021-07-10 09:57:00 71.668 kg [facility] BMI 2021-07-10 09:57:00 29.87 kg/m2 [facility] Body height 2021-06-03 15:16:00 154.9 cm [facility] Procedures Procedure Date / Time Performing Source Performed Clinician TREATMENT CONDITIONS PUMP DC 2022-07-22 09:51:55 [facility] AMB REF TO LIVER TRANSPLANT 2022-07-20 08:34:37 [facility] HEPATITIS B SURFACE ANTIGEN 2022-07-20 08:10:00 [facility] HEP B CORE ANTIBODY, TOTAL 2022-07-20 08:10:00 B [facility] HEPATITIS B SURFACE AB QUAL 2022-07-20 08:10:00 [facility] HEPATITIS C ANTIBODY 2022-07-20 08:10:00 [facility] COMPREHENSIVE METABOLIC 2022-07-20 08:10:00 [facility] HCG, QUALITATIVE, URINE 2022-07-20 08:10:00 [facility] CEA 2022-07-20 08:10:00 [facility] NO MICRO URINE RECEIVED 2022-07-20 08:10:00 [facility] CBC W ABSOLUTE NEUTROPHIL 2022-07-20 06:11:04 [facility] COUNT [facility] COMPREHENSIVE METABOLIC 2022-07-15 16:15:00 Kyler Abreu [facility] CBC W/AUTO DIFF WITH 2022-07-15 16:15:00 Kyler Abreu [facility] PLATELETS [facility] CBC W/AUTO DIFF WITH 2022-07-15 10:15:00 [facility] METABOLIC 2022-07-15 10:15:00 [facility] CANCER ANTIGEN 19-9 2022-07-15 10:15:00 [facility] COMPREHENSIVE METABOLIC 2022-07-01 18:30:00 Kyler Abreu [employer] PANEL Medicine CBC W/AUTO DIFF WITH 2022-07-01 18:30:00 Kyler Abreu [facility] of PL[facility]LETS Medicine CBC W/AUTO DIFF WITH 2022-07-01 12:30:00 [facility] of [facility] Medicine COMPREHENSIVE METABOLIC 2022-07-01 12:30:00 [facility] PANEL Medicine MR ABDOMEN WITH & WITHOUT IV 2022-05-28 12:47:00 Essie Abreu [facility] CT CHEST WITH IV CONTRAST 2022-05-28 10:10:00 Kyler Abreu [facility] CBC W/AUTO DIFF WITH 2022-05-06 10:51:15 [facility] Medicine COMPREHENSIVE METABOLIC 2022-05-06 10:51:15 [facility] PANEL Medicine CBC W/AUTO DIFF WITH 2022-03-25 10:42:00 [facility] of [place] Medicine COMPREHENSIVE METABOLIC 2022-03-25 10:42:00 [facility] PANEL Medicine CBC W/AUTO DIFF WITH 2022-03-25 10:24:59 [facility] of [place] Medicine COMPREHENSIVE METABOLIC 2022-03-25 10:24:59 [facility] PANEL Medicine COMPREHENSIVE METABOLIC 2022-03-09 16:25:00 Kyler Abreu [facility] of PANEL Medicine CBC W/AUTO DIFF WITH 2022-03-09 16:25:00 Kyler Abreu [facility] of [place] Medicine CBC W/AUTO DIFF WITH 2022-03-09 11:25:00 [facility] Medicine COMPREHENSIVE METABOLIC 2022-03-09 11:25:00 [facility] PANEL Medicine POCT-CREATININE 2022-02-04 14:08:00 Priscilla Palacios [facility] COMPREHENSIVE METABOLIC 2022-01-19 08:02:00 [facility] of PANEL Medicine MAGNESIUM 2022-01-19 08:02:00 [facility] CBC W/AUTO DIFF WITH 2022-01-19 08:02:00 [facility] of [place] Medicine CBC W ABSOLUTE NEUTROPHIL 2022-01-19 06:45:38 Bj [facility] COUNT Medicine COMPREHENSIVE METABOLIC 2022-01-09 08:02:00 [facility] PANEL Medicine MAGNESIUM 2022-01-09 08:02:00 [facility] CBC W/AUTO DIFF WITH 2022-01-09 08:02:00 [facility] CBC W ABSOLUTE NEUTROPHIL 2022-01-09 06:53:26 Bj [facility] COUNT [facility] MR ABDOMEN WITH & WITHOUT IV 2022-01-06 15:12:00 Essie Abreu [facility] CBC W/PLT COUNT & AUTO 2021-12-29 08:47:00 [facility]OLIC 2021-12-29 08:47:00 Kyler Abreu [facility] MAGNESIUM 2021-12-29 08:47:00 [facility] CBC W/PLT COUNT & AUTO 2021-12-29 08:47:00 [facility] CBC W ABSOLUTE NEUTROPHIL 2021-12-29 06:18:01 Bj [facility] COMPREHENSIVE METABOLIC 2021-12-29 06:18:01 [facility] PANEL Medicine MAGNESIUM 2021-12-29 06:18:01 [facility] MAGNESIUM 2021-12-19 07:55:00 [facility] W/[facility]T COUNT & AUTO 2021-12-19 07:55:00 [facility]IVE [facility] 2021-12-19 07:55:00 Kyler Abreu [facility] CBC W/PLT COUNT & AUTO 2021-12-19 07:55:00 [facility] MAGNESIUM 2021-12-05 08:29:00 [facility] CBC W/PLT COUNT & AUTO 2021-12-05 08:29:00 Brady [facility] COMPREHENSIVE METABOLIC 2021-12-05 08:29:00 Kyler Abreu [facility] CBC W/PLT COUNT & AUTO 2021-12-05 08:29[facility]00 [facility] 2021-12-05 08:29:00 [facility] CBC W/[facility]T COUNT & AUTO 2021-11-28 08:14:00 [facility] CBC W/PLT COUNT & AUTO 2021-11-28 08:14:00 [facility] COMPREHENSIVE METABOLIC 2021-11-28 08:13:00 [facility] I [facility] MAGNESIUM 2021-11-28 08:13:00 [facility] CBC W ABSOLUTE NEUTROPHIL 2021-11-28 06:30:29 [facility] COMPREHENSIVE METABOLIC 2021-11-28 06:30:29 [facility] PANEL [facility] MAGNESIUM 2021-11-28 06:30:29 [facility] NM BONE SCAN WHOLE BODY 2021-11-21 15:24:00 [facility]PELVIS WITH IV 2021-11-21 10:55:00 [facility] CONTRAST [facility] CT CHEST WITH IV CONTRAST 2021-11-21 10:55:00 [facility] CBC W/PLT COUNT & AUTO 2021-11-14 08:05:00 [facility] 2021-11-14 08:05:00 [facility] MAGNESIUM 2021-11-14 08:05:00 [facility] CBC W/PLT COUNT & AUTO 2021-11-14 08:05:00 [facility] (MANUAL DIFFERENTIAL) 2021-11-14 08:05:00 [facility] COMPREHENSIVE METABOLIC 2021-11-07 07:28:00 [facility] MAGNESIUM 2021-11-07 07:28:00 [facility] CBC W/AUTO DIFF WITH 2021-11-07 07:28:00 [facility] CBC W ABSOLUTE NEUTROPHIL 2021-11-07 06:32:01 Bj [facility] COMPREHENSIVE METABOLIC 2021-10-24 08:22:00 [facility] PANEL [facility] MAGNESIUM 2021-10-24 08:22:00 [facility] CBC W/AUTO DIFF WITH 2021-10-24 08:22:00 [facility] CBC W ABSOLUTE NEUTROPHIL 2021-10-24 06:36:44 [facility] NM BONE SCAN WHOLE BODY 2021-08-04 13:34:00 Kyler Abreu [facility] IR PORT-A-CATH PLACEMENT 2021-08-04 11:53:00 Alfred Hernandez [facility] PROTHROMBIN TIME/INR 2021-08-04 09:34:00 Drea [facility] PLATELET COUNT 2021-08-04 09:34:00 [facility] COMPREHENSIVE METABOLIC 2021-08-01 17:18:00 Kyler Abreu [facility] CBC W/AUTO DIFF WITH 2021-08-01 17:18:[address] [facility] PL[facility]TS [facility] CANCER ANTIGEN 19-9 2021-08-01 17:18:00 Brady [facility] CT ABDOMEN/PELVIS WITH IV 2021-07-28 15:10:00 Brady [facility] CT CHEST WITH IV CONTRAST 2021-07-28 15:10:00 Brady [facility] COMPREHENSIVE METABOLIC 2021-07-18 17:23:00 Kyler Abreu [facility] CBC W/AUTO DIFF WITH 2021-07-18 17:23:00 Kyler Abreu [facility] PL[facility]LETS [facility] CANCER ANTIGEN 19-9 2021-07-18 17:23:00 Brady [facility] CALCIUM, IONIZED 2021-07-11 04:45:00 Russell [facility] COMPREHENSIVE METABOLIC 2021-07-11 04:45:00 Murphy, [facility] PANEL [facility] MAGNESIUM 2021-07-11 04:45:00 [facility] CBC W/PLT COUNT & AUTO 2021-07-11 04:45:00 [facility] CBC W/PLT COUNT & AUTO 2021-07-11 04:45:00 [facility] POCT-GLUCOSE METER 2021-07-10 21:31:00 Estrada, [facility] POCT-GLUCOSE METER 2021-07-10 16:46:00 [facility]ada, [facility] REPORT OF PROCEDURE - 2021-07-10 13:34:11 Johanne [facility] ENDOSCOPY URL [facility] POCT-GLUCOSE METER 2021-07-10 12:35:00 Estrada, [facility] [place] ERCP 2021-07-10 12:10:00 [facility]anne [facility] ENDOSCOPIC RETROGRADE 2021-07-10 10:49:00 [facility] CHOLANGIOPANCREATOGRAPHY, [facility] WITH BILE DUCT STENT INSERTION PROCEDURE W/ C-ARM 2021-07-10 10:49:00 [facility] ENDOSCOPIC RETROGRADE 2021-07-10 10:49:00 [facility] WITH STENT REMOVAL ERCP, WITH BALLOON SWEEP OF 2021-07-10 10:49:00 [facility] BILE DUCTS [facility] ENDOSCOPIC RETROGRADE 2021-07-10 10:49:00 [facility] CHOLANGIOPANCREATOGRAPHY, [facility] WITH BALLOON DILATION POCT-GLUCOSE METER 2021-07-10 07:11:00 Estrada, [facility] CALCIUM, IONIZED 2021-07-10 04:10[facility]OLIC 2021-07-10 04:10:00 [facility] MAGNESIUM 2021-07-10 04:10:00 [facility] PHOSPHORUS 2021-07-10 04:10:00 [facility] CBC W/PLT COUNT & AUTO 2021-07-10 04:10:00 [facility] DIFFERENTIAL [facility] CBC W/PLT COUNT & AUTO 2021-07-10 04:10:00 [facility] POCT-GLUCOSE METER 2021-07-09 20:20:00 Estrada, [facility] POCT-GLUCOSE METER 2021-07-09 16:17:00 Estrada, [facility] SARS-COV2/RT-PCR ([facility] & REF 2021-07-09 14:50:00 Radha Thao [facility]) [facility] POCT-GLUCOSE METER 2021-07-09 11:08:00 Estrada, [facility] POCT-GLUCOSE METER 2021-07-09 07:29:00 Master [facility] HEPATIC FUNCTION PANEL 2021-07-09 05:53:00 Akila [facility] CBC W/PLT COUNT & AUTO 2021-07-09 05:53:00 Akila [facility] DIFFERENTIAL [facility] COMPREHENSIVE METABOLIC 2021-07-09 05:53:00 Master [facility] CALCIUM, IONIZED 2021-07-09 05:53:00 Jeffrey [facility] MAGNESIUM 2021-07-09 05:53:00 [facility] PHOSPHORUS 2021-07-09 05:53:00 [facility] CBC W/PLT COUNT & AUTO 2021-07-09 05:53:00 [facility] DIFFERENTIAL [facility] POCT-GLUCOSE METER 2021-07-08 21:24:00 Master [facility] BASIC METABOLIC PANEL 2021-07-08 19:04:00 JeffreyAyaanRussell [facility] POCT-GLUCOSE METER 2021-07-08 17:10:00 [facility] POCT-GLUCOSE METER 2021-07-08 11:54:00 [facility] POCT-GLUCOSE METER 2021-07-08 07:42:00 [facility] BASIC METABOLIC PANEL 2021-07-08 03:35:00 Akila, [facility] HEPATIC FUNCTION PANEL 2021-07-08 03:35:00 Akila [facility] CBC W/PLT COUNT & AUTO 2021-07-08 03:35:00 Akila [facility] DIFFERENTIAL [facility] B-TYPE NATRIURETIC FACTOR 2021-07-08 03:35:00 Nikunj Barrett [facility] (BNP) [facility] PHOSPHORUS 2021-07-08 03:35:00 Nikunj Barrett [facility] MAGNESIUM 2021-07-08 03:35:00 Nikunj Barrett [facility] CBC W/PLT COUNT & AUTO 2021-07-08 03:35:00 [facility] DIFFERENTIAL [facility] POCT-GLUCOSE METER 2021-07-07 21:14:00 Akila [facility] BASIC METABOLIC PANEL 2021-07-07 21:08:00 Nikunj Barrett [facility] URINALYSIS W/ MICROSCOPIC 2021-07-07 21:02:00 Nikunj Barrett [facility] SODIUM, RANDOM URINE 2021-07-07 21:02:00 Nikunj Barrett [facility] CREATININE, RANDOM URINE 2021-07-07 21:02:00 Nikunj Barrett [facility] EOSINOPHIL SMEAR, URINE 2021-07-07 21:02:00 Nikunj Barrett [facility], I [facility] PROTEIN, RANDOM URINE 2021-07-07 21:02:00 Barrett, Nikunj [facility] US RENAL COMPLETE 2021-07-07 17:55:00 Arnold [facility] BLOOD C[facility] 2021-07-07 15:23:00 Akila, [facility] BASIC METABOLIC PANEL 2021-07-07 14:04:00 Akila [facility] HEPATIC FUNCTION PANEL 2021-07-07 14:04:00 Akila [facility] CBC W/PLT COUNT & AUTO 2021-07-07 14:04:00 Akila [facility] CBC W/PLT COUNT & AUTO 2021-07-07 14:04:00 Akila [facility] POCT-GLUCOSE METER 2021-07-07 11:24:00 Akila [facility] POCT-GLUCOSE METER 2021-06-26 08:13:00 [facility] BASIC METABOLIC PANEL 2021-06-26 05:07:00 [facility] CALCIUM, IONIZED 2021-06-26 05:07:00 [facility] PHOSPHORUS 2021-06-26 05:07:00 [facility] CBC W/PLT COUNT & AUTO 2021-06-26 05:07:[address] [facility] MAGNESIUM 2021-06-26 05:07:00 [facility] CBC W/PLT COUNT & AUTO 2021-06-26 05:07:[address] [facility] POCT-GLUCOSE METER 2021-06-25 21:17:00 [facility] POCT-GLUCOSE METER 2021-06-25 16:26:00 [facility] SARS-COV2/RT-PCR ([facility] & REF 2021-06-25 14:06:00 Antonio Espinoza [facility] LABS) [facility] XR ABDOMEN/KUB 1 VIEW 2021-06-25 13:45:00 [facility] POCT-[facility]UCOSE METER 2021-06-25 12:04:00 Wilber [facility] POCT-GLUCOSE METER 2021-06-25 07:55:00 Wilber [facility] CBC W/PLT COUNT & AUTO 2021-06-25 06:08:00 [facility] 2021-06-25 06:08[facility]00 [facility] 2021-06-25 06:08:00 [facility] COMPREHENSIVE METABOLIC 2021-06-25 06:08:00 [facility] PHOSPHORUS 2021-06-25 06:08:00 [facility] CBC W/PLT COUNT & AUTO 2021-06-25 06:08:[address] [facility] POCT-GLUCOSE METER 2021-06-24 21:02:00 Wilber [facility] CALCIUM, IONIZED 2021-06-24 12:02:00 [facility] BASIC METABOLIC PANEL 2021-06-24 12:02:00 [facility] POCT-GLUCOSE METER 2021-06-24 11:23:00 Zanderndmatthew [facility] URINALYSIS W/ MICROSCOPIC 2021-06-24 07:41:00 [facility] SODIUM, RANDOM URINE 2021-06-24 07:40:00 [facility] PROTEIN, RANDOM URINE 2021-06-24 07:40:00 [facility] CREATININE, RANDOM URINE 2021-06-24 07:40:00 [facility] 2021-06-24 05:05:00 [facility] CALCI[facility], IONIZED 2021-06-24 05:05:00 Edson Valle [facility] CBC W/PLT COUNT & AUTO 2021-06-24 05:05:[address] [facility] MAGNESIUM 2021-06-24 05:05:00 [facility] COMPREHENSIVE METABOLIC 2021-06-24 05:05:00 [facility] B-TYPE NATRIURETIC FACTOR 2021-06-24 05:05:00 Russell Murphy [facility] (BNP) [facility] CREATINE KINASE (CK) 2021-06-24 05:05:00 [facility] URIC ACID 2021-06-24 05:05:00 [facility] CBC W/PLT COUNT & AUTO 2021-06-24 05:05:[address] [facility] POCT-GLUCOSE METER 2021-06-23 21:24:00 Wilber [facility] BASIC METABOLIC PANEL 2021-06-23 19:51:00 [facility] XR CHEST 1 VIEW PORTABLE / 2021-06-23 18:47:[address] [facility] POCT-GLUCOSE METER 2021-06-23 17:07:00 [facility]/PELVIS WITHOUT IV 2021-06-23 15:03:00 Vielka Valle [facility] POCT-GLUCOSE METER 2021-06-23 11:21:00 Wilber [facility] POCT-GLUCOSE METER 2021-06-23 07:26:00 Wilber [facility] BASIC METABOLIC PANEL 2021-06-23 04:24:00 [facility] CALCI[facility], ION[facility]ED 2021-06-23 04:24:00 [facility]US 2021-06-23 04:24:00 [facility] W/[facility]T COUNT & AUTO 2021-06-23 04:24:[address] [facility] MAGNESIUM 2021-06-23 04:24:00 [facility] CBC W/PLT COUNT & AUTO 2021-06-23 04:24:00 [facility] POCT-GLUCOSE METER 2021-06-22 21:14:00 [facility] POCT-GLUCOSE METER 2021-06-22 17:18:00 [facility] XR ABDOMEN/KUB 1 VIEW 2021-06-22 13:34:[address] [facility] POCT-GLUCOSE METER 2021-06-22 06:47:00 [facility] POCT-GLUCOSE METER 2021-06-21 21:07:00 [facility] POCT-GLUCOSE METER 2021-06-21 17:22:00 [facility] HEPATIC FUNCTION PANEL 2021-06-21 12:39:00 [facility] CBC W/PLT COUNT & AUTO 2021-06-21 12:39:00 [facility] BASIC METABOLIC PANEL 2021-06-21 12:39:00 [facility] CBC W/PLT COUNT & AUTO 2021-06-21 12:39:00 [facility] POCT-GLUCOSE METER 2021-06-21 12:15:00 [facility] POCT-GLUCOSE METER 2021-06-21 07:36:00 [facility] POCT-GLUCOSE METER 2021-06-20 20:55:00 [facility] POCT-GLUCOSE METER 2021-06-20 17:06:00 [facility] POCT-GLUCOSE METER 2021-06-20 07:54:00 [facility] XR ABDOMEN/KUB 1 VIEW 2021-06-20 02:01:00 Wilfrid Bangisabella [facility] POCT-GLUCOSE METER 2021-06-19 21:39:00 [facility] POCT-GLUCOSE METER 2021-06-19 16:30:00 [facility] POCT-GLUCOSE METER 2021-06-19 11:17:00 [facility] POCT-GLUCOSE METER 2021-06-19 07:59:00 [facility] HEPATIC FUNCTION PANEL 2021-06-19 04:21:00 [facility] POCT-GLUCOSE METER 2021-06-18 21:31:00 [facility] SARS-COV2/RT-PCR (SL[facility] & REF 2021-06-18 17:57:00 [facility] POCT-GLUCOSE METER 2021-06-18 17:19:00 [facility] POCT-GLUCOSE METER 2021-06-18 11:38:00 [facility] POCT-GLUCOSE METER 2021-06-18 07:43:00 [facility] HEPATIC FUNCTION PANEL 2021-06-18 04:23:00 [facility] POCT-[facility]UCOSE METER 2021-06-17 20:54:00 [facility] POCT-GLUCOSE METER 2021-06-17 17:37:00 [facility] HEPATIC FUNCTION PANEL 2021-06-17 04:35:00 [facility] POCT-GLUCOSE METER 2021-06-16 20:41:00 [facility] POCT-GLUCOSE METER 2021-06-16 17:29:00 [facility] BASIC METABOLIC PANEL 2021-06-16 16:26:00 [facility] POCT-GLUCOSE METER 2021-06-16 11:58:00 [facility] POCT-GLUCOSE METER 2021-06-16 07:17:00 [facility] HEPATIC FUNCTION PANEL 2021-06-16 05:05:00 [facility] POCT-GLUCOSE METER 2021-06-15 21:01:00 [facility] POCT-GLUCOSE METER 2021-06-15 16:52:00 [facility] POCT-GLUCOSE METER 2021-06-15 11:41:00 [facility] POCT-GLUCOSE METER 2021-06-15 07:50:00 [facility] HEPATIC FUNCTION PANEL 2021-06-15 04:30:00 [facility] POCT-GLUCOSE METER 2021-06-14 20:56:00 [facility] POCT-GLUCOSE METER 2021-06-14 16:33:00 [facility] POCT-GLUCOSE METER 2021-06-14 11:24:00 [facility] POCT-GLUCOSE METER 2021-06-14 07:27:00 [facility] POCT-GLUCOSE METER 2021-06-13 21:05:00 [facility] POCT-GLUCOSE METER 2021-06-13 16:45:00 [facility] BASIC METABOLIC PANEL 2021-06-13 12:05:00 [facility] HEPATIC FUNCTION PANEL 2021-06-13 12:05:00 [facility] POCT-GLUCOSE METER 2021-06-13 11:32:00 [facility] POCT-GLUCOSE METER 2021-06-13 07:12:00 [facility] POCT-GLUCOSE METER 2021-06-12 20:54:00 [facility] POCT-GLUCOSE METER 2021-06-12 18:18:00 [facility] IR PERCUTANEOUS 2021-06-12 17:49:00 [facility] CHOLANGIOGRAM [facility] TISSUE EXAM 2021-06-12 17:40:00 [facility] PROCEDURE DONE OUTSIDE OR 2021-06-12 13:00:00 Surgeon Matthew Patel [facility] PROCEDURE, IN NON-OPERATING 2021-06-12 13:00:00 Surgeon MIKA Patel [facility] SARS-COV2/RT-PCR (SLHS & REF 2021-06-12 12:50:00 Gadicherla, Son al [facility] POCT-GLUCOSE METER 2021-06-12 08:06:00 Jeanafunmi [facility] POCT-GLUCOSE METER 2021-06-11 21:22:00 [facility] POCT-GLUCOSE METER 2021-06-11 17:15:00 [facility] POCT-GLUCOSE METER 2021-06-11 07:39:00 [facility] COMPREHENSIVE METABOLIC 2021-06-11 04:21:[address] [facility] CBC W/PLT COUNT & AUTO 2021-06-11 04:21:00 Rianna [facility] CBC W/PLT COUNT & AUTO 2021-06-11 04:21:00 Rianna [facility] POCT-GLUCOSE METER 2021-06-10 21:10:00 Jeanafunmi [facility] POCT-GLUCOSE METER 2021-06-10 17:23:00 [facility] POCT-GLUCOSE METER 2021-06-10 14:11:00 [facility] NM BONE SCAN WHOLE BODY 2021-06-10 12:57:00 MaxineJessica choudhary [facility] POCT-GLUCOSE METER 2021-06-10 08:34:00 [facility] COMPREHENSIVE METABOLIC 2021-06-10 03:59:[address] [facility] CBC W/PLT COUNT & AUTO 2021-06-10 03:59:00 Rianna [facility] CBC W/PLT COUNT & AUTO 2021-06-10 03:59:00 Rianna [facility] POCT-GLUCOSE METER 2021-06-09 23:05:00 [facility] CT CHEST WITH IV CONTRAST 2021-06-09 20:24:00 Gadkathleenerfunmi [facility] POCT-GLUCOSE METER 2021-06-09 17:06:00 GadkathleenerfunmiSt[facility] POCT-GLUCOSE METER 2021-06-09 11:32:00 [facility] COMPREHENSIVE METABOLIC 2021-06-09 09:30:[address] [facility] CBC W/PLT COUNT & AUTO 2021-06-09 09:30:[facility] & AUTO 2021-06-09 09:30:00 [facility] PO[facility]UCOSE METER 2021-06-09 07:39:00 [facility] POCT-GLUCOSE METER 2021-06-08 21:21:00 [facility] POCT-GLUCOSE METER 2021-06-08 17:26:00 [facility] POCT-GLUCOSE METER 2021-06-08 11:18:00 [facility] REPORT OF PROCEDURE - 2021-06-08 10:35:34 [facility] ENDOSCOPY [facility] CBC W/PLT COUNT & AUTO 2021-06-08 10:12:00 Avendano Noyola, [facility] DIFFERENTIAL [facility] COMPREHENSIVE METABOLIC 2021-06-08 10:12:00 Avendano Noyola, [facility] PANEL [facility] CBC W/PLT COUNT & AUTO 2021-06-08 10:12:00 Avendano Noyola, [facility] DIFFERENTIAL [facility] POCT-GLUCOSE METER 2021-06-08 07:41:00 [facility] POCT-GLUCOSE METER 2021-06-07 21:11:00 [facility] POCT-GLUCOSE METER 2021-06-07 17:14:00 [facility] POCT-GLUCOSE METER 2021-06-07 12:48:00 [facility] POCT-GLUCOSE METER 2021-06-07 11:30:00 [facility] CYTOLOGY 2021-06-07 11:18:00 [facility] CYTOLOGY REQUEST 2021-06-07 11:18:00 [facility] [place] ERCP 2021-06-07 11:07:00 [facility] TISSUE EXAM 2021-06-07 10:53:00 [facility] ENDOSCOPIC RETROGRADE 2021-06-07 09:23:00 [facility]IOPANCRE[facility]OMOUNT [facility] WITH DIRECT DUCT VISUALIZATION, USING PANCREATICOBILIARY FIBEROPTIC PROBE PROCEDURE W/ C-ARM 2021-06-07 09:23:00 [facility] ENDOSCOPIC RETROGRADE 2021-06-07 09:23:00 [facility] CHOLANGIOPANCREATOGRAPHY, [facility] WITH SPHINCTEROTOMY ENDOSCOPIC RETROGRADE 2021-06-07 09:23:00 [facility] CHOLANGIOPANCREATOProMedica [facility] Ali [facility] WITH BILE DUCT STENT INSERTION ENDOSCOPIC RETROGRADE 2021-06-07 09:23:00 [facility] CHOLANGIOPANCREATOMOUNT [facility]IN[facility], [facility] WITH BIOPSY POCT-GLUCOSE METER 2021-06-07 07:27:00 [facility] POCT-GLUCOSE METER 2021-06-06 22:24:00 [facility] POCT-GLUCOSE METER 2021-06-06 17:17:00 [facility] POCT-GLUCOSE METER 2021-06-06 12:23:00 [facility] POCT-GLUCOSE METER 2021-06-06 08:04:00 [facility] POCT-GLUCOSE METER 2021-06-05 21:04:00 [facility] POCT-GLUCOSE METER 2021-06-05 17:45:00 [facility] POCT-GLUCOSE METER 2021-06-05 12:00:00 [facility] POCT-GLUCOSE METER 2021-06-05 07:52:00 [facility] HEPATITIS B SURFACE ANTIBODY 2021-06-05 04:48:00 Jodie Alba windy [facility] POCT-GLUCOSE METER 2021-06-04 21:08:00 [facility] POCT-GLUCOSE METER 2021-06-04 17:05:00 [facility] MR ABDOMEN WITH & WITHOUT IV 2021-06-04 16:54:00 Goran Dee [facility] POCT-GLUCOSE METER 2021-06-04 11:13:00 [facility] POCT-GLUCOSE METER 2021-06-04 08:01:00 Goran Dee [facility] BASIC METABOLIC PANEL 2021-06-04 05:01:00 Goran Dee [facility] HEPATIC FUNCTION PANEL 2021-06-04 05:01:00 Goran Dee [facility] MAGNESIUM 2021-06-04 05:01:00 Goran Dee [facility] PHOSPHORUS 2021-06-04 05:01:00 Luiz Goran Limon [facility] CBC W/PLT COUNT & AUTO 2021-06-04 05:01:00 Goran Dee [facility] PROTHROMBIN TIME/INR 2021-06-04 05:01:00 Luiz [facility] Incger[facility] Limon [facility] HEMOGLOBIN A1C 2021-06-04 05:01:00 Goran Dee [facility] CBC W/PLT COUNT & AUTO 2021-06-04 05:01:00 Goran Dee [facility] POCT-GLUCOSE METER 2021-06-03 21:14:00 Jonathan Deehend[place] Braxton [facility] POCT-GLUCOSE METER 2021-06-03 17:28:00 Goran Dee [facility] OSI CHEST 2021-06-03 17:15:00 Jakob Sanches [facility] OSI CT ABDOMEN AND PELVIS 2021-06-03 17:12:00 Jakob [facility] CARCINOEMBRYONIC ANTIGEN 2021-06-03 15:31:00 Mariam Solo [facility] (CEA) [facility] CARBOHYDRATE ANTIGEN 19-9 2021-06-03 15:31:00 Mariam Solo [facility] (CA 19-9) [facility] HEPATITIS C ANTIBODY 2021-06-03 15:31:00 Mariam Solo [facility] HEPATITIS B CORE ANTIBODY, 2021-06-03 15:31:00 Mariam Solo [facility] TOTAL [facility] HEPATITIS B SURFACE ANTIGEN 2021-06-03 15:31:[address] [facility] CERULOPLASMIN 2021-06-03 15:31:00 [facility] ANTI-NUCLEAR ANTIBODY (MORENA) 2021-06-03 15:31:00 [facility] ACTIN (SMOOTH MUSCLE) 2021-06-03 15:31:00 Jose Guadalupe [facility]TIB[facility], IGG [facility] ANTI-MITOCHONDRIAL AB, 2021-06-03 15:31:00 [facility] REFLEX TO TITER [facility] [id number]\\, SERUM 2021-06-03 15:31:00 [facility] EBV ANTIBODY, IGG 2021-06-03 15:31:00 [facility] CYTOMEGALOVIRUS ANTIBODY, 2021-06-03 15:31:00 [facility] LIVER-KIDNEY MICROSOME AB 2021-06-03 15:31:00 [facility] MITOCHONDRIAL AB SCREEN 2021-06-03 15:31:00 [facility] MITOCHONDRIAL AB TITER 2021-06-03 15:31:00 [facility] POCT-GLUCOSE METER 2021-06-03 11:21:00 Goran Dee [facility] COMPREHENSIVE METABOLIC 2021-06-03 11:17:00 Goran Dee [facility] CBC W/PLT COUNT & AUTO 2021-06-03 11:17:00 [facility] PROTHROMBIN TIME/INR 2021-06-03 11:17:00 Luiz [facility] ALPHA FETOPROTEIN (AFP), 2021-06-03 11:17:00 Goran Dee [facility] TUMOR MARKER [facility] BILIRUBIN, DIRECT 2021-06-03 11:17:00 [facility] HEPATITIS A ANTIBODY, IGG 2021-06-03 11:17:00 [facility] HEPATITIS A ANTIBODY, IGM 2021-06-03 11:17:00 [facility] FERRITIN 2021-06-03 11:17:00 [facility] IRON, TIBC, % SAT. (WITHOUT 2021-06-03 11:17:00 [facility] LIPID PANEL 2021-06-03 11:17:00 [facility] LAB HIV-1 AG W/HIV-1&2 AB 2021-06-03 11:17:00 [facility] CBC W/PLT COUNT & AUTO 2021-06-03 11:17:00 Goran Dee [facility] OSI CT ABDOMEN AND PELVIS 2021-05-29 17:15:00 Jakob Sanches [facility] Plan of Care Planned Activity Planned Date Details Comments Source Future Scheduled 2025-06-[address] [facility] 00:[facility]:00 (procedure) [code = [facility] [id number]] Future Scheduled 2025-06-[address] [facility] 00:00:00 (procedure) [code = [facility] [id number]] Future Scheduled 2025-06-[address] [facility] 00:00:00 (procedure) [code = [facility] [id number]] Future Scheduled 2025-06-[address] [facility] Test 00:00:00 (procedure) [code = [facility] [id number]] Future Scheduled 2025-06-[address] [facility] Test 00:00:00 (procedure) [code = [facility] [id number]] Future Scheduled 2025-06-[address] [facility] Test 00:00:00 (procedure) [code = [facility] [id number]] Future Scheduled 2025-06-[address] [facility] Test 00:00:00 (procedure) [code = [facility] [id number]] Future Scheduled 2024-06-[address] [facility] Test 00:00:00 (procedure) [code = [facility] [id number]] Future Scheduled 2024-06-[address] [facility] Test 00:00:00 (procedure) [code = [facility] [id number]] Future Scheduled 2024-06-[address] [facility] Test 00:00:00 (procedure) [code = [facility] [id number]] Future Scheduled 2024-06-[address] [facility] 00:00:00 (procedure) [code = [facility] [id number]] Future Scheduled 2024-06-[address] [facility] 00:00:00 (procedure) [code = [facility] [id number]] Future Scheduled 2024-06-[address] [facility] 00:00:00 (procedure) [code = [facility] [id number]] Future Scheduled 2024-06-[address] [facility] Test 00:00:00 (procedure) [code = [facility] Center [id number]] Future Scheduled 2024-06-[address] [facility] Test 00:00:00 (procedure) [code = Medical Center [id number]] Future Scheduled 2022-08-03 Screening for [facility] Test 09:21:20 malignant neoplasm of Medici ne of colon (procedure) [code = [id number]] Future Scheduled 2022-08-03 COVID-19 Vaccine [facility] Test 09:21:20 (#1) [code = of Medicine COVID-19 Vaccine (#1)] Future Scheduled 2022-08-03 TETANUS SHOT (ADULT) [facility] Test 09:21:20 [code = TETANUS SHOT of Medi cine (ADULT)] Future Scheduled 2022-08-03 Diabetic foot [facility] Test 09:21:20 examination of Medicine (regime/therapy) [code = 669822359] Future Scheduled 2022-08-03 Annual Diabetic [facility] Test 09:21:20 Retinopathy of Medicine Screening [code = Annual Diabetic Retinopathy Screening] Future Scheduled 2022-08-03 BMI Follow Up Plan [facility] Test 09:21:20 [code = BMI Follow of Medici ne Up Plan] Future Scheduled 2022-08-03 Screening for [facility] Test 09:21:20 malignant neoplasm of Medici ne of cervix (procedure) [code = 355278289] Future Scheduled 2022-08-03 Screening for [facility] Test 09:21:20 malignant neoplasm of Medici ne of breast (procedure) [code = 241607688] Future Scheduled 2022-08-03 ZOSTER VACCINE (1 of [facility] Test 09:21:20 2) [code = ZOSTER of Medicin e VACCINE (1 of 2)] Future Scheduled 2022-08-03 FLU VACCINE > 6 Postponed from [facility] Test 09:21:20 MONTHS [code = FLU 01/19/2022 of Medici ne VACCINE > 6 MONTHS] (Postpone Reason: Patient declined today) Future Scheduled 2022-07-[address] [facility] Test 00:00:00 Counseling and Medical Cente r Screening (12+) [code = Tobacco Cessation Counseling and Screening (12+)] Future Scheduled 2022-07-[address] [facility] Test 00:00:00 [facility] r Screening (12+) [code = Tobacco Cessation Counseling and Screening (12+)] Future Scheduled 2022-07-[address] [facility] Test 00:00:00 [facility] Cent[facility] r Screening (12+) [code = Tobacco Cessation Counseling and Screening (12+)] Future Scheduled 2022-07-[address] [facility] Test 00:00:00 [facility]ing [facility] Medical Cente r Screening (12+) [code = Tobacco Cessation Counseling and Screening (12+)] Future Scheduled 2022-07-[address] [facility] Test 00:00:00 [facility]ing [facility] Medical Cente r Screening (12+) [code = Tobacco Cessation Counseling and Screening (12+)] Future Scheduled 2022-07-[address] [facility] Test 00:00:00 [facility]ing and Medical Cente r Screening (12+) [code = Tobacco Cessation Counseling and Screening (12+)] Future Scheduled 2022-07-[address] [facility] Test 00:00:00 [facility]ing and Medical Cente r Screening (12+) [code = Tobacco Cessation Counseling and Screening (12+)] Future Scheduled 2022-07-[address] [facility] Test 00:00:00 Counseling and Medical Cente r Screening (12+) [code = Tobacco Cessation Counseling and Screening (12+)] Future Scheduled 2022-07-[address] [facility] Test 00:00:00 Counseling and Medical Cente r Screening (12+) [code = Tobacco Cessation Counseling and Screening (12+)] Future Scheduled 2022-07-[address] [facility] Test 00:00:00 Counseling and Medical Cente r Screening (12+) [code = Tobacco Cessation Counseling and Screening (12+)] Future Scheduled 2022-07-20 Screening for [facility] Test 06:10:24 malignant neoplasm of Medici ne of colon (procedure) [code = [id number]] Future Scheduled 2022-07-20 COVID-19 Vaccine [facility] Test 06:10:24 (#1) [code = of Medicine COVID-19 Vaccine (#1)] Future Scheduled 2022-07-20 TETANUS SHOT (ADULT) [facility] Test 06:10:24 [code = TETANUS SHOT of Medi cine (ADULT)] Future Scheduled 2022-07-20 Diabetic foot [facility] Test 06:10:24 examination of Medicine (regime/therapy) [code = [id number]] Future Scheduled 2022-07-20 Annual Diabetic [facility] Test 06:10:24 Retinopathy of Medicine Screening [code = Annual Diabetic Retinopathy Screening] Future Scheduled 2022-07-20 BMI Follow Up Plan [facility] Test 06:10:24 [code = BMI Follow of Medici ne Up Plan] Future Scheduled 2022-07-20 Screening for [facility] Test 06:10:24 malignant neoplasm of Medici ne of cervix (procedure) [code = 460012360] Future Scheduled 2022-07-20 Screening for [facility] Test 06:10:24 malignant neoplasm of Medici ne of breast (procedure) [code = 050641568] Future Scheduled 2022-07-20 ZOSTER VACCINE (1 of [facility] Test 06:10:24 2) [code = ZOSTER of Medicin e VACCINE (1 of 2)] Future Scheduled 2022-07-20 FLU VACCINE > 6 Postponed from [facility] Test 06:10:24 MONTHS [code = FLU 01/19/2022 of Medici ne VACCINE > 6 MONTHS] (Postpone Reason: Patient declined today) Future Scheduled 2022-07-15 Screening for [facility] Test 10:09:51 malignant neoplasm of Medici ne of colon (procedure) [code = 950522111] Future Scheduled 2022-07-15 COVID-19 Vaccine [facility] Test 10:09:51 (#1) [code = of Medicine COVID-19 Vaccine (#1)] Future Scheduled 2022-07-15 TETANUS SHOT (ADULT) [facility] Test 10:09:51 [code = TETANUS SHOT of Medi cine (ADULT)] Future Scheduled 2022-07-15 Diabetic foot [facility] Test 10:09:51 examination of Medicine (regime/therapy) [code = 121501128] Future Scheduled 2022-07-15 Annual Diabetic [facility] [employer] Test 10:09:51 Retinopathy of Medicine Screening [code = Annual Diabetic Retinopathy Screening] Future Scheduled 2022-07-15 BMI Follow Up Plan [facility] Test 10:09:51 [code = BMI Follow of Medici ne Up Plan] Future Scheduled 2022-07-15 Screening for [facility] Test 10:09:51 malignant neoplasm of Medici ne of cervix (procedure) [code = 860670686] Future Scheduled 2022-07-15 Screening for [facility] Test 10:09:51 malignant neoplasm of Medici ne of breast (procedure) [code = 992730688] Future Scheduled 2022-07-15 ZOSTER VACCINE (1 of [facility] Test 10:09:51 2) [code = ZOSTER of Medicin e VACCINE (1 of 2)] Future Scheduled 2022-07-15 FLU VACCINE > 6 Postponed from [facility] Test 10:09:51 MONTHS [code = FLU 01/19/2022 of Medici ne VACCINE > 6 MONTHS] (Postpone Reason: Patient declined today) Future Scheduled 2022-07-15 CANCER ANTIGEN 19-9 [facility] Test 09:56:52 [code = 42139-3] of Medicine Future Scheduled 2022-07-05 Screening for [facility] Test 16:22:39 malignant neoplasm of Medici ne of colon (procedure) [code = 562448987] Future Scheduled 2022-07-05 COVID-19 Vaccine [facility] Test 16:22:39 (#1) [code = of Medicine COVID-19 Vaccine (#1)] Future Scheduled 2022-07-05 TETANUS SHOT (ADULT) [facility] Test 16:22:39 [code = TETANUS SHOT of Medi cine (ADULT)] Future Scheduled 2022-07-05 Diabetic foot [facility] Test 16:22:39 examination of Medicine (regime/therapy) [code = 845351387] Future Scheduled 2022-07-05 Annual Diabetic [facility] Test 16:22:39 Retinopathy of Medicine Screening [code = Annual Diabetic Retinopathy Screening] Future Scheduled 2022-07-05 BMI Follow Up Plan [facility] Test 16:22:39 [code = BMI Follow of Medici ne Up Plan] Future Scheduled 2022-07-05 Screening for [facility] Test 16:22:39 malignant neoplasm of Medici ne of cervix (procedure) [code = 584874461] Future Scheduled 2022-07-05 Screening for [facility] Test 16:22:39 malignant neoplasm of Medici ne of breast (procedure) [code = 344628462] Future Scheduled 2022-07-05 ZOSTER VACCINE (1 of [facility] Test 16:22:39 2) [code = ZOSTER of Medicin e VACCINE (1 of 2)] Future Scheduled 2022-07-05 FLU VACCINE > 6 Postponed from [facility] Test 16:22:39 MONTHS [code = FLU 01/19/2022 of Medici ne VACCINE > 6 MONTHS] (Postpone Reason: Patient declined today) Future Scheduled 2022-06-[address] [facility] Test 00:00:00 (12+) [code = Medical Center DEPRESSION SCREENING (12+)] Future Scheduled 2022-06-[address] [facility] Test 00:00:00 (12+) [code = Medical Center DEPRESSION SCREENING (12+)] Future Scheduled 2022-06-[address] [facility] Test 00:00:00 (12+) [code = Medical Center DEPRESSION SCREENING (12+)] Future Scheduled 2022-06-[address] [facility] Test 00:00:00 (12+) [code = Medical Center DEPRESSION SCREENING (12+)] Future Scheduled 2022-06-[address] [facility] Test 00:00:00 (12+) [code = Medical Center DEPRESSION SCREENING (12+)] Future Scheduled 2022-06-[address] [facility] Test 00:00:00 (12+) [code = Medical Center DEPRESSION SCREENING (12+)] Future Scheduled 2022-06-[address] [facility] Test 00:00:00 (12+) [code = Medical Center DEPRESSION SCREENING (12+)] Future Scheduled 2022-06-[address] [facility] Test 00:00:00 (12+) [code = Medical Center DEPRESSION SCREENING (12+)] Future Scheduled 2022-06-03 Screening for [facility] Test 19:10:11 malignant neoplasm of Medici ne of colon (procedure) [code = 888168564] Future Scheduled 2022-06-03 COVID-19 Vaccine [facility] Test 19:10:11 (#1) [code = of Medicine COVID-19 Vaccine (#1)] Future Scheduled 2022-06-03 TETANUS SHOT (ADULT) [facility] Test 19:10:11 [code = TETANUS SHOT of Medi cine (ADULT)] Future Scheduled 2022-06-03 Diabetic foot [facility] Test 19:10:11 examination of Medicine (regime/therapy) [code = 924603691] Future Scheduled 2022-06-03 ANNUAL DIABETIC [facility] Test 19:10:11 RETINOPATHY of Medicine SCREENING [code = ANNUAL DIABETIC RETINOPATHY SCREENING] Future Scheduled 2022-06-03 BMI FOLLOW UP PLAN [facility] Test 19:10:11 [code = BMI FOLLOW of Medici ne UP PLAN] Future Scheduled 2022-06-03 Screening for [facility] Test 19:10:11 malignant neoplasm of Medici ne of cervix (procedure) [code = 223369749] Future Scheduled 2022-06-03 Screening for [facility] Test 19:10:11 malignant neoplasm of Medici ne of breast (procedure) [code = 723198579] Future Scheduled 2022-06-03 ZOSTER VACCINE (1 of [facility] Test 19:10:11 2) [code = ZOSTER of Medicin e VACCINE (1 of 2)] Future Scheduled 2022-06-03 FLU VACCINE > 6 Postponed from [facility] Test 19:10:11 MONTHS [code = FLU 01/19/2022 of Medici ne VACCINE > 6 MONTHS] (Postpone Reason: Patient declined today) Future Scheduled 2022-05-25 MRI ABDOMEN W WO Expected: [facility] Test 00:00:00 CONTRAST [code = 05/25/2022, of Medicine 39256-6] Expires: 03/25/2023 Future Scheduled 2022-05-25 CT CHEST W CONTRAST Expected: [facility] Test 00:00:00 [code = 11936-5] 05/25/2022, of Medicine Expires: 03/25/2023 Future Scheduled 2022-05-06 Screening for [facility] Test 10:53:40 malignant neoplasm of Medici ne of colon (procedure) [code = 194887670] Future Scheduled 2022-05-06 COVID-19 Vaccine [facility] Test 10:53:40 (#1) [code = of Medicine COVID-19 Vaccine (#1)] Future Scheduled 2022-05-06 TETANUS SHOT (ADULT) [employer] [employer] Test 10:53:40 [code = TETANUS SHOT of Medi cine (ADULT)] Future Scheduled 2022-05-06 BMI FOLLOW UP PLAN [facility] Test 10:53:40 [code = BMI FOLLOW of Medici ne UP PLAN] Future Scheduled 2022-05-06 Screening for [facility] Test 10:53:40 malignant neoplasm of Medici ne of cervix (procedure) [code = 598111773] Future Scheduled 2022-05-06 Screening for [facility] Test 10:53:40 malignant neoplasm of Medici ne of breast (procedure) [code = 909206584] Future Scheduled 2022-05-06 ZOSTER VACCINE (1 of [facility] Test 10:53:40 2) [code = ZOSTER of Medicin e VACCINE (1 of 2)] Future Scheduled 2022-05-06 FLU VACCINE > 6 Postponed from [facility] Test 10:53:40 MONTHS [code = FLU 01/19/2022 of Medici ne VACCINE > 6 MONTHS] (Postpone Reason: Patient declined today) Future Scheduled 2022-05-06 CBC W/AUTO DIFF WITH Ordered: [facility] Test 10:51:15 PLATELETS [code = 05/06/2022 of Medicin e 82904-1] Future Scheduled 2022-05-06 COMPREHENSIVE Ordered: [facility] Test 10:51:15 METABOLIC PANEL 05/06/2022 of Medicine [code = 96662-6] Future Scheduled 2022-04-16 Screening for [facility] Test 14:47:24 malignant neoplasm of Medici ne of colon (procedure) [code = 989045788] Future Scheduled 2022-04-16 COVID-19 Vaccine [facility] Test 14:47:24 (#1) [code = of Medicine COVID-19 Vaccine (#1)] Future Scheduled 2022-04-16 TETANUS SHOT (ADULT) [facility] Test 14:47:24 [code = TETANUS SHOT of Medi cine (ADULT)] Future Scheduled 2022-04-16 BMI FOLLOW UP PLAN [facility] Test 14:47:24 [code = BMI FOLLOW of Medici ne UP PLAN] Future Scheduled 2022-04-16 Screening for [facility] Test 14:47:24 malignant neoplasm of Medici ne of cervix (procedure) [code = 266258703] Future Scheduled 2022-04-16 Screening for [facility] Test 14:47:24 malignant neoplasm of Medici ne of breast (procedure) [code = 570284409] Future Scheduled 2022-04-16 ZOSTER VACCINE (1 of [facility] Test 14:47:24 2) [code = ZOSTER of Medicin e VACCINE (1 of 2)] Future Scheduled 2022-04-16 FLU VACCINE > 6 Postponed from [facility] Test 14:47:24 MONTHS [code = FLU 01/19/2022 of Medici ne VACCINE > 6 MONTHS] (Postpone Reason: Patient declined today) Future Scheduled 2022-03-25 Screening for [facility] Test 10:34:27 malignant neoplasm of Medici ne of colon (procedure) [code = 410530244] Future Scheduled 2022-03-25 COVID-19 Vaccine [facility] Test 10:34:27 (#1) [code = of Medicine COVID-19 Vaccine (#1)] Future Scheduled 2022-03-25 TETANUS SHOT (ADULT) [facility] Test 10:34:27 [code = TETANUS SHOT of Medi cine (ADULT)] Future Scheduled 2022-03-25 BMI FOLLOW UP PLAN [facility] Test 10:34:27 [code = BMI FOLLOW of Medici ne UP PLAN] Future Scheduled 2022-03-25 Screening for [facility] Test 10:34:27 malignant neoplasm of Medici ne of cervix (procedure) [code = 302551515] Future Scheduled 2022-03-25 Screening for [facility] Test 10:34:27 malignant neoplasm of Medici ne of breast (procedure) [code = 261289272] Future Scheduled 2022-03-25 ZOSTER VACCINE (1 of [facility] Test 10:34:27 2) [code = ZOSTER of Medicin e VACCINE (1 of 2)] Future Scheduled 2022-03-25 MEDICARE IPPE [facility] Test 10:34:27 (WELCOME TO of Medicine MEDICARE) [code = MEDICARE IPPE (WELCOME TO MEDICARE)] Future Scheduled 2022-03-25 FLU VACCINE > 6 [facility] Test 10:34:27 MONTHS [code = FLU of Medici ne VACCINE > 6 MONTHS] Future Scheduled 2022-03-25 COMPREHENSIVE Ordered: [facility] Test 10:25:00 METABOLIC PANEL 03/25/2022 of Medicine [code = 90731-0] Future Scheduled 2022-03-25 CBC W/AUTO DIFF WITH Ordered: [employer] [employer] Test 10:24:59 PLATELETS [code = 03/25/2022 of Medicin e 95576-1] Future Scheduled 2022-03-25 CBC W/AUTO DIFF WITH Ordered: [employer] [employer] Test 10:22:56 PLATELETS [code = 03/25/2022 of Medicin e 18843-9] Future Scheduled 2022-03-25 COMPREHENSIVE Ordered: [facility] Test 10:22:56 METABOLIC PANEL 03/25/2022 of Medicine [code = 43168-6] Future Scheduled 2022-03-10 Screening for [facility] Test 16:54:17 malignant neoplasm of Medici ne of colon (procedure) [code = 569290546] Future Scheduled 2022-03-10 COVID-19 Vaccine [facility] Test 16:54:17 (#1) [code = of Medicine COVID-19 Vaccine (#1)] Future Scheduled 2022-03-10 TETANUS SHOT (ADULT) [employer] [employer] Test 16:54:17 [code = TETANUS SHOT of Medi cine (ADULT)] Future Scheduled 2022-03-10 [facility] [employer] [facility] 16:54:17 [code = BMI FOLLOW of Medici ne UP PLAN] Future Scheduled 2022-03-10 Screening for [facility] Test 16:54:17 malignant neoplasm of Medici ne of cervix (procedure) [code = 099117259] Future Scheduled 2022-03-10 Screening for [facility] Test 16:54:17 malignant neoplasm of Medici ne of breast (procedure) [code = 315039676] Future Scheduled 2022-03-10 ZOSTER VACCINE (1 of [employer] [employer] Test 16:54:17 2) [code = ZOSTER of Medicin e VACCINE (1 of 2)] Future Scheduled 2022-03-10 MEDICARE IPPE [facility] Test 16:54:17 (WELCOME TO of Medicine MEDICARE) [code = MEDICARE IPPE (WELCOME TO MEDICARE)] Future Scheduled 2022-03-10 FLU VACCINE > 6 [facility] Test 16:54:17 MONTHS [code = FLU of Medici ne VACCINE > 6 MONTHS] Future Scheduled 2022-02-[address] [facility] Test 00:00:00 (#1) [code = Medical Center INFLUENZA VACCINE (#1)] Future Scheduled 2022-02-[address] [facility] Test 00:00:00 (#1) [code = Medical Center INFLUENZA VACCINE (#1)] Future Scheduled 2022-02-[address] [facility] Test 00:00:00 (#1) [code = Medical Center INFLUENZA VACCINE (#1)] Future Scheduled 2022-02-[address] [facility] Test 00:00:00 (#1) [code = Medical Center INFLUENZA VACCINE (#1)] Future Scheduled 2022-02-[address] [facility] Test 00:00:00 (#1) [code = Medical Center INFLUENZA VACCINE (#1)] Future Scheduled 2022-02-[address] [facility] Test 00:00:00 (#1) [code = Medical Center INFLUENZA VACCINE (#1)] Future Scheduled 2022-02-02 Screening for [facility] Test 08:35:32 malignant neoplasm of Medici ne of colon (procedure) [code = 279637927] Future Scheduled 2022-02-02 COVID-19 Vaccine [facility] Test 08:35:32 (#1) [code = of Medicine COVID-19 Vaccine (#1)] Future Scheduled 2022-02-02 TETANUS SHOT (ADULT) [facility] Test 08:35:32 [code = TETANUS SHOT of Medi cine (ADULT)] Future Scheduled 2022-02-02 BMI FOLLOW UP PLAN [facility] [employer] Test 08:35:32 [code = BMI FOLLOW of Medici ne UP PLAN] Future Scheduled 2022-02-02 Screening for [facility] Test 08:35:32 malignant neoplasm of Medici ne of cervix (procedure) [code = 236229536] Future Scheduled 2022-02-02 Screening for [facility] Test 08:35:32 malignant neoplasm of Medici ne of breast (procedure) [code = 586283625] Future Scheduled 2022-02-02 ZOSTER VACCINE (1 of [facility] Test 08:35:32 2) [code = ZOSTER of Medicin e VACCINE (1 of 2)] Future Scheduled 2022-02-02 FLU VACCINE > 6 [facility] Test 08:35:32 MONTHS [code = FLU of Medici ne VACCINE > 6 MONTHS] Future Scheduled 2022-01-19 Screening for [facility] Test 13:32:27 malignant neoplasm of Medici ne of colon (procedure) [code = 918579092] Future Scheduled 2022-01-19 COVID-19 Vaccine [facility] Test 13:32:27 (#1) [code = of Medicine COVID-19 Vaccine (#1)] Future Scheduled 2022-01-19 TETANUS SHOT (ADULT) [employer] [employer] Test 13:32:27 [code = TETANUS SHOT of Medi cine (ADULT)] Future Scheduled 2022-01-19 BMI FOLLOW UP PLAN [facility] Test 13:32:27 [code = BMI FOLLOW of Medici ne UP PLAN] Future Scheduled 2022-01-19 Screening for [facility] Test 13:32:27 malignant neoplasm of Medici ne of cervix (procedure) [code = 238230865] Future Scheduled 2022-01-19 Screening for [facility] Test 13:32:27 malignant neoplasm of Medici ne of breast (procedure) [code = 695174070] Future Scheduled 2022-01-19 ZOSTER VACCINE (1 of [facility] Test 13:32:27 2) [code = ZOSTER of Medicin e VACCINE (1 of 2)] Future Scheduled 2022-01-19 FLU VACCINE > 6 [facility] Test 13:32:27 MONTHS [code = FLU of Medici ne VACCINE > 6 MONTHS] Future Scheduled 2021-12-29 Screening for [facility] Test 13:18:27 malignant neoplasm of Medici ne of colon (procedure) [code = 641292226] Future Scheduled 2021-12-29 COVID-19 Vaccine [facility] Test 13:18:27 (#1) [code = of Medicine COVID-19 Vaccine (#1)] Future Scheduled 2021-12-29 TETANUS SHOT (ADULT) [employer] [employer] Test 13:18:27 [code = TETANUS SHOT of Medi cine (ADULT)] Future Scheduled 2021-12-29 BMI FOLLOW UP PLAN [facility] Test 13:18:27 [code = BMI FOLLOW of Medici ne UP PLAN] Future Scheduled 2021-12-29 Screening for [facility] Test 13:18:27 malignant neoplasm of Medici ne of cervix (procedure) [code = 405366815] Future Scheduled 2021-12-29 Screening for [facility] Test 13:18:27 malignant neoplasm of Medici ne of breast (procedure) [code = 217890094] Future Scheduled 2021-12-29 ZOSTER VACCINE (1 of [facility] Test 13:18:27 2) [code = ZOSTER of Medicin e VACCINE (1 of 2)] Future Scheduled 2021-12-29 FLU VACCINE > 6 [facility] Test 13:18:27 MONTHS [code = FLU of Medici ne VACCINE > 6 MONTHS] Future Scheduled 2021-12-19 Screening for [facility] Test 09:45:15 malignant neoplasm of Medici ne of colon (procedure) [code = 147558433] Future Scheduled 2021-12-19 COVID-19 Vaccine [facility] Test 09:45:15 (#1) [code = of Medicine COVID-19 Vaccine (#1)] Future Scheduled 2021-12-19 TETANUS SHOT (ADULT) [facility] Test 09:45:15 [code = TETANUS SHOT of Medi cine (ADULT)] Future Scheduled 2021-12-19 BMI FOLLOW UP PLAN [facility] Test 09:45:15 [code = BMI FOLLOW of Medici ne UP PLAN] Future Scheduled 2021-12-19 Screening for [facility] Test 09:45:15 malignant neoplasm of Medici ne of cervix (procedure) [code = 382479149] Future Scheduled 2021-12-19 Screening for [facility] Test 09:45:15 malignant neoplasm of Medici ne of breast (procedure) [code = 322925085] Future Scheduled 2021-12-19 ZOSTER VACCINE (1 of [facility] Test 09:45:15 2) [code = ZOSTER of Medicin e VACCINE (1 of 2)] Future Scheduled 2021-12-19 FLU VACCINE > 6 [facility] Test 09:45:15 MONTHS [code = FLU of Medici ne VACCINE > 6 MONTHS] Future Scheduled 2021-12-05 Screening for [facility] Test 09:17:20 malignant neoplasm of Medici ne of colon (procedure) [code = 597965013] Future Scheduled 2021-12-05 COVID-19 Vaccine [facility] Test 09:17:20 (#1) [code = of Medicine COVID-19 Vaccine (#1)] Future Scheduled 2021-12-05 TETANUS SHOT (ADULT) [facility] Test 09:17:20 [code = TETANUS SHOT of Medi cine (ADULT)] Future Scheduled 2021-12-05 BMI FOLLOW UP PLAN [facility] Test 09:17:20 [code = BMI FOLLOW of Medici ne UP PLAN] Future Scheduled 2021-12-05 Screening for [facility] Test 09:17:20 malignant neoplasm of Medici ne of cervix (procedure) [code = 431220948] Future Scheduled 2021-12-05 Screening for [facility] Test 09:17:20 malignant neoplasm of Medici ne of breast (procedure) [code = 115234426] Future Scheduled 2021-12-05 ZOSTER VACCINE (1 of [facility] Test 09:17:20 2) [code = ZOSTER of Medicin e VACCINE (1 of 2)] Future Scheduled 2021-12-05 FLU VACCINE > 6 [facility] Test 09:17:20 MONTHS [code = FLU of Medici ne VACCINE > 6 MONTHS] Future Scheduled 2021-12-[address] [facility] (procedure) [code = 54787958] Future Scheduled 2021-12-[address] [facility] Test 00:00:00 measurement Medical Center (procedure) [code = 18193686] Future Scheduled 2021-12-[address] [facility] Test 00:00:00 measurement Medical Center (procedure) [code = 25263476] Future Scheduled 2021-12-[address] [facility] Test 00:00:00 measurement Medical Center (procedure) [code = 63635120] Future Scheduled 2021-12-[address] [facility] Test 00:00:00 measurement Medical Center (procedure) [code = 22745652] Future Scheduled 2021-12-[address] [facility] 00:00:00 measurement Medical Center (procedure) [code = 29724540] Future Scheduled 2021-12-[address] [facility] 00:00:00 measurement Medical Center (procedure) [code = 08720189] Future Scheduled 2021-12-[address] [facility] 00:00:00 measurement Medical Center (procedure) [code = 83420576] Future Scheduled 2021-12-[address] [facility] 00:00:00 measurement Medical Center (procedure) [code = 26909823] Future Scheduled 2021-12-[address] [facility] Test 00:00:00 measurement Medical Center (procedure) [code = 64482868] Future Scheduled 2021-12-[address] [facility] Test 00:00:00 measurement Medical Center (procedure) [code = 55922824] Future Scheduled 2021-12-[address] [facility] Test 00:00:00 measurement Medical Center (procedure) [code = 23077824] Future Scheduled 2021-12-[address] [facility] 00:00:00 measurement Medical Center (procedure) [code = 78183417] Future Scheduled 2021-12-[address] [facility] 00:00:00 measurement Medical Center (procedure) [code = 66946209] Future Scheduled 2021-12-[address] [facility] Test 00:00:00 measurement Medical Center (procedure) [code = 06792126] Future Scheduled 2021-11-28 Screening for [facility] Test 08:59:59 malignant neoplasm of Medici ne of colon (procedure) [code = 968817823] Future Scheduled 2021-11-28 COVID-19 Vaccine [facility] Test 08:59:59 (#1) [code = of Medicine COVID-19 Vaccine (#1)] Future Scheduled 2021-11-28 TETANUS SHOT (ADULT) [facility] Test 08:59:59 [code = TETANUS SHOT of Medi cine (ADULT)] Future Scheduled 2021-11-28 BMI FOLLOW UP PLAN [facility] Test 08:59:59 [code = BMI FOLLOW of Medici ne UP PLAN] Future Scheduled 2021-11-28 Screening for [facility] Test 08:59:59 malignant neoplasm of Medici ne of cervix (procedure) [code = 432009510] Future Scheduled 2021-11-28 Screening for [facility] 08:59:59 malignant neoplasm of Medici ne of breast (procedure) [code = 621744981] Future Scheduled 2021-11-28 ZOSTER VACCINE (1 of [facility] [employer] Test 08:59:59 2) [code = ZOSTER of Medicin e VACCINE (1 of 2)] Future Scheduled 2021-11-28 FLU VACCINE > 6 [facility] Test 08:59:59 MONTHS [code = FLU of Medici ne VACCINE > 6 MONTHS] Future Scheduled 2021-11-14 Screening for [facility] 08:50:52 malignant neoplasm of Medici ne of colon (procedure) [code = 026569773] Future Scheduled 2021-11-14 COVID-19 Vaccine [facility] Test 08:50:52 (#1) [code = of Medicine COVID-19 Vaccine (#1)] Future Scheduled 2021-11-14 TETANUS SHOT (ADULT) [employer] [employer] Test 08:50:52 [code = TETANUS SHOT of Medi cine (ADULT)] Future Scheduled 2021-11-14 BMI FOLLOW UP PLAN [facility] 08:50:52 [code = BMI FOLLOW of Medici ne UP PLAN] Future Scheduled 2021-11-14 Screening for [facility] 08:50:52 malignant neoplasm of Medici ne of cervix (procedure) [code = 358018978] Future Scheduled 2021-11-14 Screening for [facility] Test 08:50:52 malignant neoplasm of Medici ne of breast (procedure) [code = 701407305] Future Scheduled 2021-11-14 ZOSTER VACCINE (1 of [facility] [employer] [facility] 08:50:52 2) [code = ZOSTER of Medicin e VACCINE (1 of 2)] Future Scheduled 2021-11-14 FLU VACCINE > 6 [employer] [facility] 08:50:52 MONTHS [code = FLU of Medici ne VACCINE > 6 MONTHS] Future Scheduled 2021-11-07 Screening for [facility] [employer] [facility] 08:49:02 malignant neoplasm of Medici ne of colon (procedure) [code = 074345701] Future Scheduled 2021-11-07 COVID-19 Vaccine (1) [employer] [facility] 08:49:02 [code = COVID-19 of Medicine Vaccine (1)] Future Scheduled 2021-11-07 TETANUS SHOT (ADULT) [employer] [facility] 08:49:02 [code = TETANUS SHOT of Medi cine (ADULT)] Future Scheduled 2021-11-07 BMI FOLLOW UP PLAN [employer] [facility] 08:49:02 [code = BMI FOLLOW of Medici ne UP PLAN] Future Scheduled 2021-11-07 Screening for [employer] [employer] [facility] 08:49:02 malignant neoplasm of Medici ne of cervix (procedure) [code = 598286475] Future Scheduled 2021-11-07 Screening for [employer] [employer] [facility] 08:49:02 malignant neoplasm of Medici ne of breast (procedure) [code = 892559208] Future Scheduled 2021-11-07 ZOSTER VACCINE (1 of [employer] [facility] 08:49:02 2) [code = ZOSTER of Medicin e VACCINE (1 of 2)] Future Scheduled 2021-11-07 FLU VACCINE > 6 [facility] [employer] Test 08:49:02 MONTHS [code = FLU of Medici ne VACCINE > 6 MONTHS] Future Scheduled 2021-11-04 CT CHEST W Expected: [facility] [employer] [facility] 00:00:00 ABD/PELVIS WO/W 11/04/2021, of Medicine [code = 06307] Expires: 10/05/2022 Future Scheduled 2021-11-04 NM BONE SCAN WHOLE Expected: [employer] [facility] 00:00:00 BODY [code = 11/04/2021, of Medicine 66688-6] Expires: 10/05/2022 Future Scheduled 2021-10-27 Screening for [employer] [facility] 08:27:37 malignant neoplasm of Medici ne of colon (procedure) [code = 733436097] Future Scheduled 2021-10-27 COVID-19 Vaccine (1) [employer] [facility] 08:27:37 [code = COVID-19 of Medicine Vaccine (1)] Future Scheduled 2021-10-27 TETANUS SHOT (ADULT) [employer] [facility] 08:27:37 [code = TETANUS SHOT of Medi cine (ADULT)] Future Scheduled 2021-10-27 BMI FOLLOW UP PLAN [employer] Test 08:27:37 [code = BMI FOLLOW of Medici ne UP PLAN] Future Scheduled 2021-10-27 Screening for [employer] [facility] 08:27:37 malignant neoplasm of Medici ne of cervix (procedure) [code = 305686099] Future Scheduled 2021-10-27 Screening for [employer] [facility] 08:27:37 malignant neoplasm of Medici ne of breast (procedure) [code = 147362673] Future Scheduled 2021-10-27 ZOSTER VACCINE (1 of [employer] [facility] 08:27:37 2) [code = ZOSTER of Medicin e VACCINE (1 of 2)] Future Scheduled 2021-10-27 FLU VACCINE > 6 [facility] [employer] [facility] 08:27:37 MONTHS [code = FLU of Medici ne VACCINE > 6 MONTHS] Future Scheduled 2021-10-17 Screening for [facility] [employer] [facility] 09:02:12 malignant neoplasm of Medici ne of colon (procedure) [code = 242201231] Future Scheduled 2021-10-17 COVID-19 Vaccine (1) [employer] [facility] 09:02:12 [code = COVID-19 of Medicine Vaccine (1)] Future Scheduled 2021-10-17 TETANUS SHOT (ADULT) [employer] [facility] 09:02:12 [code = TETANUS SHOT of Medi cine (ADULT)] Future Scheduled 2021-10-17 BMI FOLLOW UP PLAN [facility] [employer] Test 09:02:12 [code = BMI FOLLOW of Medici ne UP PLAN] Future Scheduled 2021-10-17 Screening for [facility] [employer] Test 09:02:12 malignant neoplasm of Medici ne of cervix (procedure) [code = 653564267] Future Scheduled 2021-10-17 Screening for [employer] [facility] 09:02:12 malignant neoplasm of Medici ne of breast (procedure) [code = 530481144] Future Scheduled 2021-10-17 ZOSTER VACCINE (1 of [employer] [facility] 09:02:12 2) [code = ZOSTER of Medicin e VACCINE (1 of 2)] Future Scheduled 2021-10-17 FLU VACCINE > 6 [facility] [employer] [facility] 09:02:12 MONTHS [code = FLU of Medici ne VACCINE > 6 MONTHS] Future Scheduled 2021-10-05 Screening for [facility] [employer] Test 17:06:32 malignant neoplasm of Medici ne of colon (procedure) [code = 652315757] Future Scheduled 2021-10-05 COVID-19 Vaccine (1) [employer] [facility] 17:06:32 [code = COVID-19 of Medicine Vaccine (1)] Future Scheduled 2021-10-05 TETANUS SHOT (ADULT) [employer] [facility] 17:06:32 [code = TETANUS SHOT of Medi cine (ADULT)] Future Scheduled 2021-10-05 BMI FOLLOW UP PLAN [employer] [facility] 17:06:32 [code = BMI FOLLOW of Medici ne UP PLAN] Future Scheduled 2021-10-05 Screening for [employer] [facility] 17:06:32 malignant neoplasm of Medici ne of cervix (procedure) [code = 640313094] Future Scheduled 2021-10-05 Screening for [facility] [employer] 17:06:32 malignant neoplasm of Medici ne of breast (procedure) [code = 657250874] Future Scheduled 2021-10-05 ZOSTER VACCINE (1 of [employer] [facility] 17:06:32 2) [code = ZOSTER of Medicin e VACCINE (1 of 2)] Future Scheduled 2021-10-05 FLU VACCINE > 6 [employer] [facility] 17:06:32 MONTHS [code = FLU of Medici ne VACCINE > 6 MONTHS] Future Scheduled 2021-09-28 Screening for [facility] [employer] Test 13:13:18 malignant neoplasm of Medici ne of colon (procedure) [code = 014358829] Future Scheduled 2021-09-28 COVID-19 Vaccine (1) [employer] [facility] 13:13:18 [code = COVID-19 of Medicine Vaccine (1)] Future Scheduled 2021-09-28 TETANUS SHOT (ADULT) [employer] [facility] 13:13:18 [code = TETANUS SHOT of Medi cine (ADULT)] Future Scheduled 2021-09-28 BMI FOLLOW UP PLAN [employer] [facility] 13:13:18 [code = BMI FOLLOW of Medici ne UP PLAN] Future Scheduled 2021-09-28 Screening for [facility] [employer] 13:13:18 malignant neoplasm of Medici ne of cervix (procedure) [code = 385429878] Future Scheduled 2021-09-28 Screening for [employer] [facility] 13:13:18 malignant neoplasm of Medici ne of breast (procedure) [code = 007537224] Future Scheduled 2021-09-28 ZOSTER VACCINE (1 of [employer] [facility] 13:13:18 2) [code = ZOSTER of Medicin e VACCINE (1 of 2)] Future Scheduled 2021-09-28 FLU VACCINE > 6 [facility] [employer] 13:13:18 MONTHS [code = FLU of Medici ne VACCINE > 6 MONTHS] Future Scheduled 2021-09-26 Screening for [employer] [facility] 08:17:44 malignant neoplasm of Medici ne of colon (procedure) [code = 466131235] Future Scheduled 2021-09-26 COVID-19 Vaccine (1) [employer] [facility] 08:17:44 [code = COVID-19 of Medicine Vaccine (1)] Future Scheduled 2021-09-26 TETANUS SHOT (ADULT) [employer] [facility] 08:17:44 [code = TETANUS SHOT of Medi cine (ADULT)] Future Scheduled 2021-09-26 BMI FOLLOW UP PLAN [employer] [facility] 08:17:44 [code = BMI FOLLOW of Medici ne UP PLAN] Future Scheduled 2021-09-26 Screening for [facility] [employer] 08:17:44 malignant neoplasm of Medici ne of cervix (procedure) [code = 266811612] Future Scheduled 2021-09-26 Screening for [employer] [facility] 08:17:44 malignant neoplasm of Medici ne of breast (procedure) [code = 322992609] Future Scheduled 2021-09-26 ZOSTER VACCINE (1 of [employer] [facility] 08:17:44 2) [code = ZOSTER of Medicin e VACCINE (1 of 2)] Future Scheduled 2021-09-26 FLU VACCINE > 6 [facility] [employer] [facility] 08:17:44 MONTHS [code = FLU of Medici ne VACCINE > 6 MONTHS] Future Scheduled 2021-09-25 Screening for [facility] [employer] [facility] 08:15:31 malignant neoplasm of Medici ne of colon (procedure) [code = 228086247] Future Scheduled 2021-09-25 COVID-19 Vaccine (1) [employer] 08:15:31 [code = COVID-19 of Medicine Vaccine (1)] Future Scheduled 2021-09-25 TETANUS SHOT (ADULT) [employer] 08:15:31 [code = TETANUS SHOT of Medi cine (ADULT)] Future Scheduled 2021-09-25 BMI FOLLOW UP PLAN [employer] [facility] 08:15:31 [code = BMI FOLLOW of Medici ne UP PLAN] Future Scheduled 2021-09-25 Screening for [facility] [employer] [facility] 08:15:31 malignant neoplasm of Medici ne of cervix (procedure) [code = 159606040] Future Scheduled 2021-09-25 Screening for [facility] [employer] [facility] 08:15:31 malignant neoplasm of Medici ne of breast (procedure) [code = 772425169] Future Scheduled 2021-09-25 ZOSTER VACCINE (1 of [employer] 08:15:31 2) [code = ZOSTER of Medicin e VACCINE (1 of 2)] Future Scheduled 2021-09-25 FLU VACCINE > 6 [employer] [facility] 08:15:31 MONTHS [code = FLU of Medici ne VACCINE > 6 MONTHS] Future Scheduled 2021-09-05 Screening for [facility] [employer] [facility] 09:14:34 malignant neoplasm of Medici ne of colon (procedure) [code = 159435808] Future Scheduled 2021-09-05 COVID-19 Vaccine (1) [employer] 09:14:34 [code = COVID-19 of Medicine Vaccine (1)] Future Scheduled 2021-09-05 TETANUS SHOT (ADULT) [employer] 09:14:34 [code = TETANUS SHOT of Medi cine (ADULT)] Future Scheduled 2021-09-05 BMI FOLLOW UP PLAN [facility] [employer] [facility] 09:14:34 [code = BMI FOLLOW of Medici ne UP PLAN] Future Scheduled 2021-09-05 Screening for [employer] 09:14:34 malignant neoplasm of Medici ne of cervix (procedure) [code = 792806603] Future Scheduled 2021-09-05 Screening for [facility] [employer] [facility] 09:14:34 malignant neoplasm of Medici ne of breast (procedure) [code = 856606009] Future Scheduled 2021-09-05 ZOSTER VACCINE (1 of [employer] 09:14:34 2) [code = ZOSTER of Medicin e VACCINE (1 of 2)] Future Scheduled 2021-09-05 FLU VACCINE > 6 [facility] [employer] [facility] 09:14:34 MONTHS [code = FLU of Medici ne VACCINE > 6 MONTHS] Future Scheduled 2021-08-29 Screening for [facility] [employer] [facility] 08:13:35 malignant neoplasm of Medici ne of colon (procedure) [code = 156485919] Future Scheduled 2021-08-29 COVID-19 Vaccine (1) [employer] 08:13:35 [code = COVID-19 of Medicine Vaccine (1)] Future Scheduled 2021-08-29 TETANUS SHOT (ADULT) [employer] 08:13:35 [code = TETANUS SHOT of Medi cine (ADULT)] Future Scheduled 2021-08-29 BMI FOLLOW UP PLAN [employer] [facility] 08:13:35 [code = BMI FOLLOW of Medici ne UP PLAN] Future Scheduled 2021-08-29 Screening for [facility] [employer] [facility] 08:13:35 malignant neoplasm of Medici ne of cervix (procedure) [code = 200669094] Future Scheduled 2021-08-29 Screening for [facility] [employer] [facility] 08:13:35 malignant neoplasm of Medici ne of breast (procedure) [code = 045131544] Future Scheduled 2021-08-29 ZOSTER VACCINE (1 of [employer] [facility] 08:13:35 2) [code = ZOSTER of Medicin e VACCINE (1 of 2)] Future Scheduled 2021-08-29 FLU VACCINE > 6 [facility] [employer] [facility] 08:13:35 MONTHS [code = FLU of Medici ne VACCINE > 6 MONTHS] Future Scheduled 2021-08-15 Screening for [facility] [employer] [facility] 10:44:44 malignant neoplasm of Medici ne of colon (procedure) [code = 572654509] Future Scheduled 2021-08-15 COVID-19 Vaccine (1) [employer] [facility] 10:44:44 [code = COVID-19 of Medicine Vaccine (1)] Future Scheduled 2021-08-15 TETANUS SHOT (ADULT) [employer] 10:44:44 [code = TETANUS SHOT of Medi cine (ADULT)] Future Scheduled 2021-08-15 BMI FOLLOW UP PLAN [employer] [facility] 10:44:44 [code = BMI FOLLOW of Medici ne UP PLAN] Future Scheduled 2021-08-15 Screening for [facility] [employer] Test 10:44:44 malignant neoplasm of Medici ne of cervix (procedure) [code = 620921734] Future Scheduled 2021-08-15 Screening for [facility] [employer] [facility] 10:44:44 malignant neoplasm of Medici ne of breast (procedure) [code = 703773095] Future Scheduled 2021-08-15 ZOSTER VACCINE (1 of [employer] 10:44:44 2) [code = ZOSTER of Medicin e VACCINE (1 of 2)] Future Scheduled 2021-08-15 FLU VACCINE > 6 [facility] [employer] [facility] 10:44:44 MONTHS [code = FLU of Medici ne VACCINE > 6 MONTHS] Future Scheduled 2021-08-09 Screening for [facility] [employer] [facility] 15:42:07 malignant neoplasm of Medici ne of colon (procedure) [code = 978178163] Future Scheduled 2021-08-09 COVID-19 Vaccine (1) [employer] [facility] 15:42:07 [code = COVID-19 of Medicine Vaccine (1)] Future Scheduled 2021-08-09 TETANUS SHOT (ADULT) [employer] 15:42:07 [code = TETANUS SHOT of Medi cine (ADULT)] Future Scheduled 2021-08-09 [facility] FO[facility] PLAN [employer] [facility] 15:42:07 [code = BMI FOLLOW of Medici ne UP PLAN] Future Scheduled 2021-08-09 Screening for [employer] [employer] [facility] 15:42:07 malignant neoplasm of Medici ne of cervix (procedure) [code = 036213252] Future Scheduled 2021-08-09 Screening for [employer] [facility] 15:42:07 malignant neoplasm of Medici ne of breast (procedure) [code = 327403005] Future Scheduled 2021-08-09 ZOSTER VACCINE (1 of [employer] [facility] 15:42:07 2) [code = ZOSTER of Medicin e VACCINE (1 of 2)] Future Scheduled 2021-08-09 FLU VACCINE > 6 [facility] [employer] [facility] 15:42:07 MONTHS [code = FLU of Medici ne VACCINE > 6 MONTHS] Future Scheduled 2021-08-08 CBC W/AUTO DIFF WITH Ordered: [employer] 12:05:30 PLATELETS [code = 08/08/2021 of Medicin e 45795-5] Future Scheduled 2021-08-08 COMPREHENSIVE Ordered: [facility] [employer] Test 12:05:30 METABOLIC PANEL 08/08/2021 of Medicine [code = 61335-9] Future Scheduled 2021-08-08 ZOSTER VACCINE (1 of [employer] [facility] 09:34:09 2) [code = ZOSTER of Medicin e VACCINE (1 of 2)] Future Scheduled 2021-08-08 FLU VACCINE > 6 [facility] [employer] [facility] 09:34:09 MONTHS [code = FLU of Medici ne VACCINE > 6 MONTHS] Future Scheduled 2021-08-08 Screening for [facility] [employer] [facility] 09:34:09 malignant neoplasm of Medici ne of colon (procedure) [code = 575956839] Future Scheduled 2021-08-08 COVID-19 Vaccine (1) [employer] [facility] 09:34:09 [code = COVID-19 of Medicine Vaccine (1)] Future Scheduled 2021-08-08 TETANUS SHOT (ADULT) [employer] [facility] 09:34:09 [code = TETANUS SHOT of Medi cine (ADULT)] Future Scheduled 2021-08-08 BMI FOLLOW UP PLAN [employer] [facility] 09:34:09 [code = BMI FOLLOW of Medici ne UP PLAN] Future Scheduled 2021-08-08 Screening for [facility] [employer] Test 09:34:09 malignant neoplasm of Medici ne of cervix (procedure) [code = 788488442] Future Scheduled 2021-08-08 Screening for [facility] [employer] Test 09:34:09 malignant neoplasm of Medici ne of breast (procedure) [code = 268574986] Future Scheduled 2021-08-05 CBC W/AUTO DIFF WITH Ordered: [employer] [facility] 17:30:46 PLATELETS [code = 08/05/2021 of Medicin e 66656-8] Future Scheduled 2021-08-05 COMPREHENSIVE Ordered: [facility] [employer] Test 17:30:46 METABOLIC PANEL 08/05/2021 of Medicine [code = 39332-6] Future Scheduled 2021-07-25 NM BONE SCAN WHOLE Expected: [employer] Test 00:00:00 BODY [code = 07/25/2021, of Medicine 48061-0] Expires: 07/18/2022 Future Scheduled 2021-07-23 Screening for [facility] [employer] [facility] 08:18:38 malignant neoplasm of Medici ne of colon (procedure) [code = 684238581] Future Scheduled 2021-07-23 COVID-19 Vaccine (1) [employer] [facility] 08:18:38 [code = COVID-19 of Medicine Vaccine (1)] Future Scheduled 2021-07-23 TETANUS SHOT (ADULT) [employer] [facility] 08:18:38 [code = TETANUS SHOT of Medi cine (ADULT)] Future Scheduled 2021-07-23 BMI FOLLOW UP PLAN [employer] Test 08:18:38 [code = BMI FOLLOW of Medici ne UP PLAN] Future Scheduled 2021-07-23 Screening for [facility] Test 08:18:38 malignant neoplasm of Medici ne of cervix (procedure) [code = 205026520] Future Scheduled 2021-07-23 Screening for [facility] Test 08:18:38 malignant neoplasm of Medici ne of breast (procedure) [code = 612666559] Future Scheduled 2021-07-23 ZOSTER VACCINE (1 of [facility] Test 08:18:38 2) [code = ZOSTER of Medicin e VACCINE (1 of 2)] Future Scheduled 2021-07-23 FLU VACCINE > 6 [facility] [employer] Test 08:18:38 MONTHS [code = FLU of Medici ne VACCINE > 6 MONTHS] Future Scheduled 2021-07-18 COVID-19 Vaccine (1) [facility] Test 13:11:49 [code = COVID-19 of Medicine Vaccine (1)] Future Scheduled 2021-07-18 TETANUS SHOT (ADULT) [facility] Test 13:11:49 [code = TETANUS SHOT of Medi cine (ADULT)] Future Scheduled 2021-07-18 BMI FOLLOW UP PLAN [facility] Test 13:11:49 [code = BMI FOLLOW of Medici ne UP PLAN] Future Scheduled 2021-07-18 Screening for [facility] Test 13:11:49 malignant neoplasm of Medici ne of cervix (procedure) [code = 527486918] Future Scheduled 2021-07-18 Screening for [facility] Test 13:11:49 malignant neoplasm of Medici ne of breast (procedure) [code = 552395845] Future Scheduled 2021-07-18 ZOSTER VACCINE (1 of [facility] Test 13:11:49 2) [code = ZOSTER of Medicin e VACCINE (1 of 2)] Future Scheduled 2021-07-18 FLU VACCINE > 6 [facility] [employer] Test 13:11:49 MONTHS [code = FLU of Medici ne VACCINE > 6 MONTHS] Future Scheduled 2021-07-18 Screening for [facility] Test 13:11:49 malignant neoplasm of Medici ne of colon (procedure) [code = 415592084] Future Scheduled 2021-07-18 WILD 1 [code = Ordered: [facility] [employer] Test 10:27:06 NOCPT] 07/18/2021 of Medicine Future Scheduled 2021-07-18 TEMPUS XF LIQUID [facility] Test 10:26:40 BIOPSY NGS [code = of Medici ne 99406407] Future Scheduled 2021-07-18 CT CHEST W 1 Occurrences [facility] Test 10:26:40 ABD/PELVIS WO/W starting of Medicine [code = 12997] 07/18/2021 until 07/18/2022 Future Scheduled 2021-06-[address] [facility] Test 00:00:00 (12+) [code = Medical Center DEPRESSION SCREENING (12+)] Future Scheduled 2021-06-[address] [facility] Test 00:00:00 (12+) [code = Medical Center DEPRESSION SCREENING (12+)] Future Scheduled 2021-06-[address] [facility] Test 00:00:00 (12+) [code = Medical Center DEPRESSION SCREENING (12+)] Future Scheduled 2021-06-[address] [facility] Test 00:00:00 (12+) [code = Medical Center DEPRESSION SCREENING (12+)] Future Scheduled 2021-06-[address] [facility] Test 00:00:00 (12+) [code = Medical Center DEPRESSION SCREENING (12+)] Future Scheduled 2021-06-[address] [facility] Test 00:00:00 (12+) [code = Medical Center DEPRESSION SCREENING (12+)] Future Scheduled 2021-06-[address] [facility] Test 00:00:00 (12+) [code = Medical Center DEPRESSION SCREENING (12+)] Future Scheduled 2021-02-[address] [facility] Test 00:00:00 (#1) [code = Medical Center INFLUENZA VACCINE (#1)] Future Scheduled 2021-02-[address] [facility] Test 00:00:00 (#1) [code = Medical Center INFLUENZA VACCINE (#1)] Future Scheduled 2020-02-21 SHINGLES VACCINES ([address] [facility] Test 00:00:00 of 2) [code = Medical Center SHINGLES VACCINES (1 of 2)] Future Scheduled 2020-02-21 SHINGLES VACCINES ([address] [facility] Test 00:00:00 of 2) [code = Medical Center SHINGLES VACCINES (1 of 2)] Future Scheduled 2020-02-21 SHINGLES VACCINES ([address] [facility] Test 00:00:00 of 2) [code = Medical Center SHINGLES VACCINES (1 of 2)] Future Scheduled 2020-02-21 SHINGLES VACCINES ([address] [facility] Test 00:00:00 of 2) [code = Medical Center SHINGLES VACCINES (1 of 2)] Future Scheduled 2020-02-21 SHINGLES VACCINES ([address] [facility] Test 00:00:00 of 2) [code = Medical Center SHINGLES VACCINES (1 of 2)] Future Scheduled 2020-02-21 SHINGLES VACCINES ([address] [facility] Test 00:00:00 of 2) [code = Medical Center SHINGLES VACCINES (1 of 2)] Future Scheduled 2020-02-21 SHINGLES VACCINES ([address] [facility] Test 00:00:00 of 2) [code = Medical Center SHINGLES VACCINES (1 of 2)] Future Scheduled 2020-02-21 SHINGLES VACCINES ([address] [facility] Test 00:00:00 of 2) [code = Medical Center SHINGLES VACCINES (1 of 2)] Future Scheduled 2020-02-21 SHINGLES VACCINES ([address] [facility] Test 00:00:00 of 2) [code = Medical Center SHINGLES VACCINES (1 of 2)] Future Scheduled 2020-02-21 SHINGLES VACCINES ([address] [facility] Test 00:00:00 of 2) [code = Medical Center SHINGLES VACCINES (1 of 2)] Future Scheduled 2020-02-21 SHINGLES VACCINES ([address] [facility] Test 00:00:00 of 2) [code = Medical Center SHINGLES VACCINES (1 of 2)] Future Scheduled 2020-02-21 SHINGLES VACCINES ([address] [facility] Test 00:00:00 of 2) [code = Medical Center SHINGLES VACCINES (1 of 2)] Future Scheduled 2020-02-21 SHINGLES VACCINES ([address] [facility] Test 00:00:00 of 2) [code = Medical Center SHINGLES VACCINES (1 of 2)] Future Scheduled 2020-02-21 SHINGLES VACCINES ([address] [facility] Test 00:00:00 of 2) [code = Medical Center SHINGLES VACCINES (1 of 2)] Future Scheduled 2020-02-21 SHINGLES VACCINES ([address] [facility] Test 00:00:00 of 2) [code = [facility] SHINGLES VACCINES (1 of 2)] Future Scheduled [address] [facility] 00:00:00 malignant neoplasm [facility] enter of cervix (procedure) [code = 811845897] Future Scheduled [address] [facility] Test 00:00:00 malignant neoplasm [facility] enter of cervix (procedure) [code = 255226502] Future Scheduled [address] [facility] Test 00:00:00 malignant neoplasm [facility] enter of cervix (procedure) [code = 753666641] Future Scheduled [address] [facility] Test 00:00:00 malignant neoplasm [facility] enter of cervix (procedure) [code = 617903951] Future Scheduled [address] [facility] Test 00:00:00 malignant neoplasm [facility] enter of cervix (procedure) [code = 977565786] Future Scheduled [address] [facility] Test 00:00:00 malignant neoplasm [facility] enter of cervix (procedure) [code = 491911651] Future Scheduled [address] [facility] Test 00:00:00 malignant neoplasm [facility] enter of cervix (procedure) [code = 404500428] Future Scheduled [address] [facility] Test 00:00:00 malignant neoplasm [facility] enter of cervix (procedure) [code = 856347478] Future Scheduled [address] [facility] Test 00:00:00 malignant neoplasm [facility] enter of cervix (procedure) [code = 939351634] Future Scheduled [address] [facility] Test 00:00:00 malignant neoplasm [facility] enter of cervix (procedure) [code = 077868972] Future Scheduled [address] [facility] Test 00:00:00 malignant neoplasm [facility] enter of cervix (procedure) [code = 751331364] Future Scheduled [address] [facility] Test 00:00:00 malignant neoplasm [facility] enter of cervix (procedure) [code = 478666080] Future Scheduled [address] [facility] Test 00:00:00 malignant neoplasm [facility] enter of cervix (procedure) [code = 770498173] Future Scheduled [address] [facility] Test 00:00:00 malignant neoplasm [facility] enter of cervix (procedure) [code = 497865473] Future Scheduled [address] [facility] Test 00:00:00 malignant neoplasm Medical C enter of cervix (procedure) [code = 054627298] Future Scheduled 1989 DTAP/TDAP/TD [facility] Test 00:00:00 VACCINES (1 - Tdap) [facility] Center [code = DTAP/TDAP/TD VACCINES (1 - Tdap)] Future Scheduled 1989 DTAP/TDAP/TD [facility] Test 00:00:00 VACCINES (1 - Tdap) Medical Center [code = DTAP/TDAP/TD VACCINES (1 - Tdap)] Future Scheduled 1989 DTAP/TDAP/TD [facility] Test 00:00:00 VACCINES (1 - Tdap) Medical Center [code = DTAP/TDAP/TD VACCINES (1 - Tdap)] Future Scheduled 1989 DTAP/TDAP/TD [facility] Test 00:00:00 VACCINES (1 - Tdap) Medical Center [code = DTAP/TDAP/TD VACCINES (1 - Tdap)] Future Scheduled 1989 DTAP/TDAP/TD [facility] Test 00:00:00 VACCINES (1 - Tdap) Medical Center [code = DTAP/TDAP/TD VACCINES (1 - Tdap)] Future Scheduled 1989 DTAP/TDAP/TD [facility] Test 00:00:00 VACCINES (1 - Tdap) Medical Center [code = DTAP/TDAP/TD VACCINES (1 - Tdap)] Future Scheduled 1989 DTAP/TDAP/TD [facility] Test 00:00:00 VACCINES (1 - Tdap) Medical Center [code = DTAP/TDAP/TD VACCINES (1 - Tdap)] Future Scheduled 1989 DTAP/TDAP/TD [facility] Test 00:00:00 VACCINES (1 - Tdap) Medical Center [code = DTAP/TDAP/TD VACCINES (1 - Tdap)] Future Scheduled 1989 DTAP/TDAP/TD [facility] 00:[facility] VACCINES (1 - Tdap) [facility] [code = DTAP/TDAP/TD VACCINES (1 - Tdap)] Future Scheduled 1989 DTAP/TDAP/TD [facility] 00:[facility]:00 VACCINES (1 - Tdap) [facility] [code = DTAP/TDAP/TD VACCINES (1 - Tdap)] Future Scheduled 1989 DTAP/TDAP/TD [facility] 00:00:00 VACCINES (1 - Tdap) [facility] [code = DTAP/TDAP/TD VACCINES (1 - Tdap)] Future Scheduled 1989 DTAP/TDAP/TD [facility] 00:00:00 VACCINES (1 - Tdap) [facility] [code = DTAP/TDAP/TD VACCINES (1 - Tdap)] Future Scheduled 1989 DTAP/TDAP/TD [facility] 00:00:00 VACCINES (1 - Tdap) [facility] [code = DTAP/TDAP/TD VACCINES (1 - Tdap)] Future Scheduled 1989 DTAP/TDAP/TD [facility] 00:00:00 VACCINES (1 - Tdap) [facility] [code = DTAP/TDAP/TD VACCINES (1 - Tdap)] Future Scheduled 1989 DTAP/TDAP/TD [facility] 00:00:00 VACCINES (1 - Tdap) [facility] [code = DTAP/TDAP/TD VACCINES (1 - Tdap)] Future Scheduled 1982 COVID-19 VACCINE (1) [facility] 00:00:00 [code = COVID-[address] VACCINE (1)] Future Scheduled 1982 COVID-19 VACCINE (1) [facility] 00:00:00 [code = COVID-[address] VACCINE (1)] Future Scheduled 1980-02-[address] [facility] 00:00:00 [code = DIABETIC EYE Medical Center EXAM] Future Scheduled 1980-02-[address] [facility] examination [facility] (regime/therapy) [code = [id number]] Future Scheduled 1980-02-21 Urine screening for [facility] 00:00:00 protein (procedure) [facility] [code = [id number]] Future Scheduled 1980-02-[address] EX[address] [facility] 00:00:00 [code = DIABETIC EYE Medical Center EXAM] Future Scheduled 1980-02-[address] [facility]00 examination [facility] (regime/therapy) [code = [id number]] Future Scheduled 1980-02-21 Urine screening for [facility] 00:00:00 protein (procedure) [facility] [code = [id number]] Future Scheduled 1980-02-[address] DI[address] EXAM [facility] 00:00:00 [code = DIABETIC EYE Medical Center EXAM] Future Scheduled 1980-02-[address] [facility] 00:[facility]:00 examination [facility] (regime/therapy) [code = 968405481] Future Scheduled 1980-02-21 Urine screening for [facility] 00:00:00 protein (procedure) [facility] [code = 652377980] Future Scheduled 1980-02-[address] DIAB[address]YE EXAM [facility] 00:00:00 [code = DIABETIC EYE Medical Center EXAM] Future Scheduled 1980-02-[address] [facility] 00:[facility]:00 examination [facility] (regime/therapy) [code = 124096515] Future Scheduled 1980-02-21 Urine screening for [facility] 00:00:00 protein (procedure) [facility] [code = 939346091] Future Scheduled 1980-02-21 DIAB[address] EYE EXAM [facility] 00:00:00 [code = DIABETIC EYE Medical Center EXAM] Future Scheduled 1980-02-21 Urine screening for [facility] 00:00:00 protein (procedure) [facility] [code = 978335745] Future Scheduled 1980-02-[address] DI[address]YE EXAM [facility] 00:00:00 [code = DIABETIC EYE [facility] EXAM] Future Scheduled 1980-02-21 Urine screening for [facility] 00:00:00 protein (procedure) [facility] [code = 554040796] Future Scheduled 1980-02-21 DIABET[address] EYE EXAM [facility] 00:00:00 [code = DIABETIC EYE [facility] EXAM] Future Scheduled 1980-02-21 Urine screening for [facility] 00:00:00 protein (procedure) [facility] [code = [id number]] Future Scheduled 1980-02-21 DIABET[address] EYE EXAM [facility] 00:00:00 [code = DIABETIC EYE [facility] Center EXAM] Future Scheduled 1980-02-21 Urine screening for [facility] 00:00:00 protein (procedure) [facility] [code = 132240828] Future Scheduled 1980-02-21 DIABET[address] EYE EXAM [facility] 00:00:00 [code = DIABETIC EYE [facility] EXAM] Future Scheduled 1980-02-21 Urine screening for [facility] 00:00:00 protein (procedure) [facility] [code = 847371747] Future Scheduled 1980-02-21 DIABET[address] EYE EXAM [facility] 00:00:00 [code = DIABETIC EYE Medical Center EXAM] Future Scheduled 1980-02-21 Urine screening for [facility] 00:00:00 protein (procedure) [facility] [code = 283347814] Future Scheduled 1980-02-21 DIABETIC EYE EXAM [facility] 00:00:00 [code = DIABETIC EYE Medical Center EXAM] Future Scheduled 1980-02-21 Urine screening for [facility] 00:00:00 protein (procedure) [facility] [code = 312647219] Future Scheduled 1980-02-21 DIABETIC EYE EXAM [facility] 00:00:00 [code = DIABETIC EYE Medical Center EXAM] Future Scheduled 1980-02-[address] [facility] 00:[facility]:00 examination Medical Center (regime/therapy) [code = 174319634] Future Scheduled 1980-02-21 Urine screening for [facility] 00:00:00 protein (procedure) [facility] [code = 370732034] Future Scheduled 1980-02-21 DIABETIC EYE EXAM [facility] 00:00:00 [code = DIABETIC EYE Medical Center EXAM] Future Scheduled 1980-02-[address] [facility] 00:00:00 examination [facility] Center (regime/therapy) [code = 722778942] Future Scheduled 1980-02-21 Urine screening for [facility] 00:00:00 protein (procedure) [facility] [code = 451238256] Future Scheduled 1980-02-21 DIABETIC EYE EXAM [facility] 00:00:00 [code = DIABETIC EYE Medical [facility] EXAM] Future Scheduled 1980-02-[address] [facility] 00:00:00 examination [facility] Center (regime/therapy) [code = 096881523] Future Scheduled 1980-02-21 Urine screening for [facility] 00:00:00 protein (procedure) [facility] [code = 004536579] Future Scheduled 1980-02-21 DIABETIC EYE EXAM [facility] 00:00:00 [code = DIABETIC EYE Medical Center EXAM] Future Scheduled 1980-02-21 Urine screening for [facility] 00:00:00 protein (procedure) [facility] Center [code = 190538756] Future Scheduled 1976-02-[address] [facility] 00:00:00 0-64 YRS (1 - PCV) Medical C enter [code = PNEUMOCOCCAL VACCINE 0-64 YRS (1 - PCV)] Future Scheduled 1976-02-[address] [facility] 00:00:00 0-64 YRS (1 - PCV) Medical C enter [code = PNEUMOCOCCAL VACCINE 0-64 YRS (1 - PCV)] Future Scheduled 1976-02-[address] [facility] 00:00:00 0-64 YRS (1 - PCV) Medical C enter [code = PNEUMOCOCCAL VACCINE 0-64 YRS (1 - PCV)] Future Scheduled 1976-02-[address] [facility] 00:00:00 0-64 YRS (1 - PCV) Medical C enter [code = PNEUMOCOCCAL VACCINE 0-64 YRS (1 - PCV)] Future Scheduled 1976-02-[address] [facility] 00:00:00 0-64 YRS (1 - PCV) Medical C enter [code = PNEUMOCOCCAL VACCINE 0-64 YRS (1 - PCV)] Future Scheduled 1976-02-[address] [facility] 00:00:00 0-64 YRS (1 - PCV) Medical C enter [code = PNEUMOCOCCAL VACCINE 0-64 YRS (1 - PCV)] Future Scheduled 1976-02-[address] [facility] 00:00:00 0-64 YRS (1 - PCV) Medical C enter [code = PNEUMOCOCCAL VACCINE 0-64 YRS (1 - PCV)] Future Scheduled 1976-02-[address] [facility] 00:00:00 0-64 YRS (1 - PCV) Medical C enter [code = PNEUMOCOCCAL VACCINE 0-64 YRS (1 - PCV)] Future Scheduled 1976-02-[address] [facility] 00:00:00 0-64 YRS (1 - PCV) Medical C enter [code = PNEUMOCOCCAL VACCINE 0-64 YRS (1 - PCV)] Future Scheduled 1976-02-[address] [facility] 00:00:00 0-64 YRS (1 - PCV) Medical C enter [code = PNEUMOCOCCAL VACCINE 0-64 YRS (1 - PCV)] Future Scheduled 1976-02-[address] [facility] 00:00:00 0-64 YRS (1 - PCV) Medical C enter [code = PNEUMOCOCCAL VACCINE 0-64 YRS (1 - PCV)] Future Scheduled 1976-02-[address] [facility] 00:00:00 0-64 YRS (1 of 2 - Medical C enter PPSV23) [code = PNEUMOCOCCAL VACCINE 0-64 YRS (1 of 2 - PPSV23)] Future Scheduled 1976-02-[address] [facility] 00:00:00 0-64 YRS (1 of 2 - Medical C enter PPSV23) [code = PNEUMOCOCCAL VACCINE 0-64 YRS (1 of 2 - PPSV23)] Future Scheduled 1976-02-[address] [facility] 00:00:00 0-64 YRS (1 - PCV) Medical C enter [code = PNEUMOCOCCAL VACCINE 0-64 YRS (1 - PCV)] Future Scheduled 1976-02-[address] [facility] 00:00:00 0-64 YRS (1 - PCV) Medical C enter [code = PNEUMOCOCCAL VACCINE 0-64 YRS (1 - PCV)] Future Scheduled 1970 COVID-[address] [facility] 00:00:00 (#1) [code = Medical Center COVID-19 VACCINE (#1)] Future Scheduled 1970 COVID-[address] [facility] 00:00:00 (#1) [code = Medical Center COVID-19 VACCINE (#1)] Future Scheduled 1970 COVID-[address] [facility] 00:00:00 (#1) [code = Medical Center COVID-19 VACCINE (#1)] Future Scheduled 1970 COVID-[address] [facility] 00:00:00 (#1) [code = Medical Center COVID-19 VACCINE (#1)] Future Scheduled 1970 COVID-[address] [facility] 00:00:00 (#1) [code = Medical Center COVID-19 VACCINE (#1)] Future Scheduled 1970 COVID-[address] [facility] 00:00:00 (#1) [code = Medical Center COVID-19 VACCINE (#1)] Future Scheduled 1970 COVID-[address] [facility] 00:00:00 (#1) [code = Medical Center COVID-19 VACCINE (#1)] Future Scheduled 1970 COVID-[address] [facility] 00:00:00 (#1) [code = Medical Center COVID-19 VACCINE (#1)] Future Scheduled 1970 COVID-[address] [facility] 00:00:00 (#1) [code = Medical Center COVID-19 VACCINE (#1)] Future Scheduled 1970 COVID-[address] [facility] 00:00:00 (#1) [code = Medical Center COVID-19 VACCINE (#1)] Future Scheduled 1970 COVID-[address] [facility] 00:00:00 (#1) [code = Medical Center COVID-19 VACCINE (#1)] Future Scheduled 1970 COVID-[address] [facility] 00:00:00 (#1) [code = Medical Center COVID-19 VACCINE (#1)] Future Scheduled 1970 COVID-[address] [facility] 00:00:00 (#1) [code = Medical Center COVID-19 VACCINE (#1)] Future Scheduled [address] [facility] 00:00:00 malignant neoplasm Medical C enter of breast (procedure) [code = 407180267] Future Scheduled [address] [facility] 00:00:00 (combo) [code = CT Medical C enter Colonography (combo)] Future Scheduled [address] [facility] 00:00:00 malignant neoplasm Medical C enter of colon (procedure) [code = 215277322] Future Scheduled [address] [facility] 00:00:00 malignant neoplasm Medical C enter of colon (procedure) [code = 486133421] Future Scheduled [address] [facility] 00:00:00 malignant neoplasm Medical C enter of colon (procedure) [code = 591075421] Future Scheduled [address] [facility] 00:00:00 malignant neoplasm Medical C enter of colon (procedure) [code = 183829938] Future Scheduled 1970 Sigmoidoscopy [code [facility] 00:00:00 = Sigmoidoscopy] Medical Prerna ter Future Scheduled [address] [facility] 00:00:00 malignant neoplasm Medical C enter of breast (procedure) [code = 119304645] Future Scheduled [address] [facility] 00:00:00 (combo) [code = CT Medical C enter Colonography (combo)] Future Scheduled [address] [facility] 00:00:00 malignant neoplasm Medical C enter of colon (procedure) [code = 008664022] Future Scheduled [address] [facility] 00:00:00 malignant neoplasm Medical C enter of colon (procedure) [code = 367693997] Future Scheduled [address] [facility] 00:[facility]:00 malignant neoplasm Medical C enter of colon (procedure) [code = 201245399] Future Scheduled [address] [facility] 00:00:00 malignant neoplasm Medical C enter of colon (procedure) [code = 307060728] Future Scheduled 1970 Sigmoidoscopy [code [facility] 00:00:00 = Sigmoidoscopy] Medical Prerna ter Future Scheduled [address] [facility] 00:00:00 malignant neoplasm Medical C enter of breast (procedure) [code = 383463570] Future Scheduled [address] [facility] 00:00:00 (combo) [code = CT Medical C enter Colonography (combo)] Future Scheduled [address] [facility] 00:00:00 malignant neoplasm Medical C enter of colon (procedure) [code = 656089701] Future Scheduled [address] [facility] 00:00:00 malignant neoplasm Medical C enter of colon (procedure) [code = 918044742] Future Scheduled [address] [facility] 00:00:00 malignant neoplasm Medical C enter of colon (procedure) [code = 706768323] Future Scheduled [address] [facility] 00:00:00 malignant neoplasm Medical C enter of colon (procedure) [code = 498588845] Future Scheduled 1970 Sigmoidoscopy [code [facility] 00:00:00 = Sigmoidoscopy] Medical Prerna ter Future Scheduled [address] [facility] 00:00:00 malignant neoplasm Medical C enter of breast (procedure) [code = 532040052] Future Scheduled [address] [facility] 00:00:00 (combo) [code = CT Medical C enter Colonography (combo)] Future Scheduled [address] [facility] 00:00:00 malignant neoplasm Medical C enter of colon (procedure) [code = 436167843] Future Scheduled [address] [facility] 00:00:00 malignant neoplasm Medical C enter of colon (procedure) [code = 242505623] Future Scheduled [address] [facility] 00:00:00 malignant neoplasm Medical C enter of colon (procedure) [code = 853137954] Future Scheduled [address] [facility] 00:00:00 malignant neoplasm Medical C enter of colon (procedure) [code = 963626654] Future Scheduled 1970 Sigmoidoscopy [code [facility] 00:00:00 = Sigmoidoscopy] Medical Prerna ter Future Scheduled [address] [facility] 00:00:00 malignant neoplasm Medical C enter of breast (procedure) [code = 576190453] Future Scheduled [address] [facility] 00:00:00 (combo) [code = CT Medical C enter Colonography (combo)] Future Scheduled [address] [facility] 00:00:00 malignant neoplasm Medical C enter of colon (procedure) [code = 598180217] Future Scheduled [address] [facility] 00:00:00 malignant neoplasm Medical C enter of colon (procedure) [code = 217599329] Future Scheduled [address] [facility] 00:00:00 malignant neoplasm Medical C enter of colon (procedure) [code = 138876397] Future Scheduled [address] [facility] 00:00:00 malignant neoplasm Medical C enter of colon (procedure) [code = 709252746] Future Scheduled 1970 Sigmoidoscopy [code [facility] 00:00:00 = Sigmoidoscopy] Medical Prerna ter Future Scheduled [address] [facility] 00:00:00 malignant neoplasm Medical C enter of breast (procedure) [code = 546047737] Future Scheduled [address] [facility] 00:00:00 (combo) [code = CT Medical C enter Colonography (combo)] Future Scheduled [address] [facility] 00:00:00 malignant neoplasm Medical C enter of colon (procedure) [code = 369063316] Future Scheduled [address] [facility] 00:00:00 malignant neoplasm Medical C enter of colon (procedure) [code = 500479546] Future Scheduled [address] [facility] 00:00:00 malignant neoplasm Medical C enter of colon (procedure) [code = 741070363] Future Scheduled [address] [facility] 00:00:00 malignant neoplasm Medical C enter of colon (procedure) [code = 390477283] Future Scheduled 1970 Sigmoidoscopy [code [facility] 00:00:00 = Sigmoidoscopy] Medical Prerna ter Future Scheduled [address] [facility] 00:00:00 malignant neoplasm Medical C enter of breast (procedure) [code = 857620636] Future Scheduled [address] [facility] 00:00:00 (combo) [code = CT Medical C enter Colonography (combo)] Future Scheduled [address] [facility] 00:00:00 malignant neoplasm Medical C enter of colon (procedure) [code = 468678175] Future Scheduled [address] [facility] 00:00:00 malignant neoplasm Medical C enter of colon (procedure) [code = 973274181] Future Scheduled [address] [facility] 00:00:00 malignant neoplasm Medical C enter of colon (procedure) [code = 160311350] Future Scheduled [address] [facility] 00:00:00 malignant neoplasm Medical C enter of colon (procedure) [code = 274134189] Future Scheduled 1970 Sigmoidoscopy [code [facility] 00:00:00 = Sigmoidoscopy] Medical Prerna ter Future Scheduled [address] [facility] 00:00:00 malignant neoplasm Medical C enter of breast (procedure) [code = 492418192] Future Scheduled [address] [facility] 00:00:00 (combo) [code = CT Medical C enter Colonography (combo)] Future Scheduled [address] [facility] 00:00:00 malignant neoplasm Medical C enter of colon (procedure) [code = 701508157] Future Scheduled [address] [facility] 00:00:00 malignant neoplasm Medical C enter of colon (procedure) [code = 956669502] Future Scheduled [address] [facility] 00:00:00 malignant neoplasm Medical C enter of colon (procedure) [code = 767200573] Future Scheduled [address] [facility] 00:00:00 malignant neoplasm Medical C enter of colon (procedure) [code = 515993779] Future Scheduled 1970 Sigmoidoscopy [code [facility] 00:00:00 = Sigmoidoscopy] Medical Prerna ter Future Scheduled [address] [facility] 00:00:00 malignant neoplasm Medical C enter of breast (procedure) [code = 527097198] Future Scheduled [address] [facility] 00:00:00 (combo) [code = CT Medical C enter Colonography (combo)] Future Scheduled [address] [facility] 00:00:00 malignant neoplasm Medical C enter of colon (procedure) [code = 544425691] Future Scheduled [address] [facility] 00:00:00 malignant neoplasm Medical C enter of colon (procedure) [code = 764294789] Future Scheduled [address] [facility] 00:00:00 malignant neoplasm Medical C enter of colon (procedure) [code = 474957004] Future Scheduled [address] [facility] 00:00:00 malignant neoplasm Medical C enter of colon (procedure) [code = 048553147] Future Scheduled 1970 Sigmoidoscopy [code [facility] 00:00:00 = Sigmoidoscopy] Medical Prerna ter Future Scheduled [address] [facility] 00:00:00 malignant neoplasm Medical C enter of breast (procedure) [code = 201872181] Future Scheduled [address] [facility] 00:00:00 (combo) [code = CT Medical C enter Colonography (combo)] Future Scheduled [address] [facility] 00:00:00 malignant neoplasm Medical C enter of colon (procedure) [code = 362242433] Future Scheduled [address] [facility] 00:00:00 malignant neoplasm Medical C enter of colon (procedure) [code = 165797254] Future Scheduled [address] [facility] 00:00:00 malignant neoplasm Medical C enter of colon (procedure) [code = 592818333] Future Scheduled [address] [facility] 00:00:00 malignant neoplasm Medical C enter of colon (procedure) [code = 456121766] Future Scheduled 1970 Sigmoidoscopy [code [facility] 00:00:00 = Sigmoidoscopy] Medical Prerna ter Future Scheduled [address] [facility] 00:00:00 malignant neoplasm Medical C enter of breast (procedure) [code = 021326180] Future Scheduled [address] [facility] 00:00:00 (combo) [code = CT Medical C enter Colonography (combo)] Future Scheduled [address] [facility] 00:00:00 malignant neoplasm Medical C enter of colon (procedure) [code = 856151464] Future Scheduled [address] [facility] 00:00:00 malignant neoplasm Medical C enter of colon (procedure) [code = 929682220] Future Scheduled [address] [facility] 00:00:00 malignant neoplasm Medical C enter of colon (procedure) [code = 872406785] Future Scheduled [address] [facility] 00:00:00 malignant neoplasm Medical C enter of colon (procedure) [code = 049172032] Future Scheduled 1970 Sigmoidoscopy [code [facility] 00:00:00 = Sigmoidoscopy] Medical Prerna ter Future Scheduled [address] [facility] 00:00:00 malignant neoplasm Medical C enter of breast (procedure) [code = 576745352] Future Scheduled [address] [facility] 00:00:00 malignant neoplasm Medical C enter of colon (procedure) [code = 970818209] Future Scheduled [address] [facility] 00:00:00 malignant neoplasm Medical C enter of breast (procedure) [code = 723705940] Future Scheduled [address] [facility] 00:00:00 malignant neoplasm Medical C enter of colon (procedure) [code = 452237680] Future Scheduled [address] [facility] 00:00:00 malignant neoplasm Medical C enter of breast (procedure) [code = 990826540] Future Scheduled [address] [facility] 00:00:00 (combo) [code = CT Medical C enter Colonography (combo)] Future Scheduled [address] [facility] 00:00:00 malignant neoplasm Medical C enter of colon (procedure) [code = 884048033] Future Scheduled [address] [facility] 00:00:00 malignant neoplasm Medical C enter of colon (procedure) [code = 564961202] Future Scheduled [address] [facility] 00:00:00 malignant neoplasm Medical C enter of colon (procedure) [code = 093868095] Future Scheduled [address] [facility] 00:00:00 malignant neoplasm Medical C enter of colon (procedure) [code = 810839978] Future Scheduled 1970 Sigmoidoscopy [code [facility] 00:00:00 = Sigmoidoscopy] Medical Prerna ter Future Scheduled [address] [facility] 00:00:00 malignant neoplasm Medical C enter of breast (procedure) [code = 701980100] Future Scheduled [address] [facility] 00:00:00 (combo) [code = CT Medical C enter Colonography (combo)] Future Scheduled [address] [facility] 00:00:00 malignant neoplasm Medical C enter of colon (procedure) [code = 866913481] Future Scheduled [address] [facility] 00:00:00 malignant neoplasm Medical C enter of colon (procedure) [code = 641243235] Future Scheduled [address] [facility] 00:00:00 malignant neoplasm Medical C enter of colon (procedure) [code = 559528685] Future Scheduled [address] [facility] 00:00:00 malignant neoplasm Medical C enter of colon (procedure) [code = 609483045] Future Scheduled 1970 Sigmoidoscopy [code [facility] 00:00:00 = Sigmoidoscopy] Medical Prerna ter Encounters Start End Encounter Admission Attending Care Care Encounter Source Date/Time Date/Time Type Type Clinicians Facility Department ID 2021-06-11 Inpatient [facility] Surgery [id number] [facility] 09:54:45 2021-06-01 Outpatient [facility], [facility] [id number] 08:07:56 PROVIDER Alfred o n 2022-09-23 2022-09-23 Outpatient [facility] [id number] [facility]:00[facility]00 [facility] 2022-09-21 2022-09-21 Outpatient [facility] [id number] [facility] 00:00:00 00:00:[facility] 2022-09-21 2022-09-21 Outpatient [facility] [id number] [facility] 00:00:00 00:00:00 [facility] 2022-09-09 2022-09-09 Outpatient [facility] [id number] [facility] 00:00:00 00:00:00 [facility] 2022-09-07 2022-09-07 Outpatient [facility] [id number] [facility] 00:00:00 00:00:00 [facility] 2022-09-07 2022-09-07 Outpatient [facility] [id number] [facility] 00:00:00 00:00:00 [facility] 2022-08-26 2022-08-26 Outpatient [facility] [id number] [facility] 00:00:00 00:00:00 [facility] 2022-08-24 2022-08-24 Outpatient BCM BCM [id number] [facility] 00:00:00 00:00:00 [facility] 2022-08-24 2022-08-24 Outpatient BCM BCM [id number] [facility] 00:00:00 00:00:00 [employer] 2022-08-12 2022-08-12 Outpatient BCM BCM [id number] [facility] 00:00:00 00:00:00 [employer] 2022-08-10 2022-08-10 Outpatient BCM BCM [id number] [facility] 00:00:00 00:00:00 [employer] 2022-08-10 2022-08-10 Outpatient BCM BCM [id number] [facility] 00:00:00 00:00:00 [employer] 2022-08-05 2022-08-05 Outpatient SLE SLEH [id number] [facility]H 00:00:00 00:00:00 2022-08-03 2022-08-03 Office ELIAS ABREU 1.2.840.114 [id number] [facility] 08:26:18 11:57:32 Visit KYLER Murrell 350.1.13.21 Co llege 0.2.7.2.686 of [id number] Medi raza 504 e 2022-07-27 2022-07-27 Outpatient EL SLEH SLE [id number] [facility] 06:41:40 06:41:40 2022-07-22 2022-07-22 Outpatient BCM BC [id number] [facility] 09:50:39 23:59:00 [employer] 2022-07-20 2022-07-20 Outpatient BC BC [id number] [facility] 08:25:24 23:59:00 [employer] 2022-07-20 2022-07-20 Office BRADY [facility] 1.2.840.114 [id number] [facility] 08:21:49 09:57:47 Visit TANNAZ Nyasia 350.1.13.21 Co llege 0.2.7.2.686 of [id number] [facility] raza 504 e 2022-07-15 2022-07-15 Office BRADY [facility] 1.2.840.114 [id number] [facility] 08:41:41 10:04:55 Visit TANNAZ Nyasia 350.1.13.21 Co llege 0.2.7.2.686 of [id number] [facility] raza 504 e 2022-07-02 2022-07-02 Outpatient CARINE BLANC SLE SLE [id number] SLE 10:55:51 10:55:51 2022-07-02 2022-07-02 Office JadonCarine breen [facility] [id number] [facility] 09:45:00 10:00:00 Visit [facility] 2022-07-02 2022-07-02 Office JadonCarine breen [facility] [id number] [facility] 09:45:00 10:00:00 Visit [facility] 2022-07-01 2022-07-01 Office Brady [facility] 1.2.840.114 [id number] [facility] 11:00:00 14:11:26 Visit Tannaz Nyasia 350.1.13.21 Co llege 0.2.7.2.686 of [id number] [facility] 504 e 2022-06-24 2022-06-24 Outpatient ZACHERY SLE SLE [id number] SLEH 00:00:00 00:00:00 2022-06-03 2022-06-03 Office [facility] 1.2.840.114 [id number] [facility] 10:10:27 13:21:21 Visit KYLER Murrell 350.1.13.21 Co llege 0.2.7.2.686 of [id number] [facility] 504 e 2022-05-28 2022-05-28 [facility] [id number] 09:28:00 23:59:00 [facility] 2022-05-28 2022-05-28 [facility] [id number] [facility] 09:28:00 23:59:00 Encounter 1.5, [facility] 2022-05-28 2022-05-28 [id number] SLE 09:28:00 23:59:00 [facility] 2022-05-28 2022-05-28 [facility] [id number] 09:27:12 09:27:12 Encounter 1, [facility] 2022-05-28 2022-05-28 [facility] [id number] 09:27:12 09:27:12 Encounter 1, [facility] 2022-05-28 2022-05-28 Outpatient KEVIN DALTON SLE [id number] SLE 09:27:12 09:27:12 [facility] 2022-05-06 2022-05-06 Office [facility] 1.2.840.114 [id number] [facility] 09:50:57 13:51:01 Visit TANNAZ Nyasia 350.1.13.21 Co llege 0.2.7.2.686 of [id number] [facility] 504 e 2022-04-20 2022-04-20 Outpatient EL SLE SLEH [id number] SLEH 13:06:42 13:06:42 2022-04-16 2022-04-16 Office ERNST TALAMANTES BCJudith 1.2.840.114 [id number] [facility] 13:32:17 15:11:33 Visit AMBULATOR 350.1.13.21 College Y 0.2.7.2.686 of [id number] [facility] 300 e 2022-03-25 2022-03-25 Office [facility] 1.2.840.114 [id number] [facility] 09:36:07 10:28:23 Visit TANNAZ Nyasia 350.1.13.21 Co llege 0.2.7.2.686 of [id number] [facility] 504 e 2022-03-25 2022-03-25 [facility] [id number] [facility] 00:00:00 00:00:00 Only [facility] 2022-03-25 2022-03-25 Orders Brady [facility] [id number] 00:00:00 00:00:00 Only [facility] 2022-03-23 2022-03-23 Procedure Philip [facility] [id number] [facility] [facility] 09:30:00 10:30:00 visit [facility] 2022-03-23 2022-03-23 Procedure Philip [facility] [id number] 09:30:00 10:30:00 visit [facility] 2022-03-09 2022-03-09 Office [facility] 1.2.840.114 [id number] [facility] 09:55:38 11:03:07 Visit TANNAZ Nyasia 350.1.13.21 Co llege 0.2.7.2.686 of [id number] [facility] 504 e 2022-02-19 2022-02-19 Procedure Palacios, [facility] [id number] 09:30:00 10:30:00 visit [facility] 2022-02-19 2022-02-19 Procedure [place], [facility] [id number] 09:30:00 10:30:00 visit [facility] 2022-02-19 2022-02-19 Outpatient EL SLE SLE [id number] SLEH 06:35:20 06:35:20 2022-02-04 2022-02-04 Procedure EL Palacios, [facility] [id number] 14:00:00 15:00:00 visit [facility] 2022-02-04 2022-02-04 Procedure Philip [facility] [id number] 14:00:00 15:00:00 visit [facility] 2022-02-04 2022-02-04 Outpatient EL SLE SLE [id number] SLE 08:02:11 08:02:11 2022-02-03 2022-02-03 Outpatient EL SLE SLE [id number] [facility]H 00:00:00 00:00:00 2022-02-02 2022-02-02 Outpatient [facility] [id number] [facility] 09:18:53 23:59:00 Joy 2022-02-02 2022-02-02 Office BRADY [facility] 1.2.840.114 [id number] [facility] 07:57:55 09:56:19 Visit KYLER Nyasia 350.1.13.21 Co llege 0.2.7.2.686 of [id number] [facility] raza 504 e 2022-02-02 2022-02-02 Outpatient EL SLE SLE [id number] SLEH 07:23:11 07:23:11 2022-02-02 2022-02-02 Telephone [facility] [id number] 00:00:00 00:00:00 [facility] 2022-02-02 2022-02-02 [facility] [id number] 00:00:00 00:00:00 [facility] 2022-01-22 2022-01-22 [facility] [id number] [id number] 00:00:00 00:00:[address] [facility] 2022-01-22 2022-01-22 [id number] 00:00:00 00:00:[address] [facility] 2022-01-19 2022-01-19 Outpatient [facility] [id number] [facility] 09:31:31 23:59:00 [facility] [employer] 2022-01-19 2022-01-19 Office BRADY [facility] 1.2.840.114 [id number] [facility] 08:27:00 10:18:07 [facility]1.13.21 Co llege 0.2.7.2.686 of [id number] Medi raza 504 e 2022-01-09 2022-01-09 [facility] [id number] [facility] 08:09:30 23:59:00 [facility] [employer] 2022-01-06 2022-01-06 [facility] [id number] 13:51:17 23:59:[address] [facility] 2022-01-06 2022-01-06 [facility] [id number] 13:51:17 23:59:[address] [facility] 2022-01-06 2022-01-06 Outpatient BRADY [facility] SLE [id number] [facility] 13:51:17 23:59:00 [facility] 2021-12-29 2021-12-29 Outpatient [facility] [id number] [facility] 09:06:29 23:59:00 [facility] [employer] [employer] 2021-12-29 2021-12-29 Outpatient [facility] SLE [id number] [facility] 15:50:07 15:50:07 2021-12-29 2021-12-29 Office ELIAS ABREU 1.2.840.114 [id number] [facility] 08:18:09 10:08:16 Visit KYLER Mastersr 350.1.13.21 Co llege 0.2.7.2.686 [facility] [id number] Medi raza 504 e 2021-12-29 2021-12-29 Orders ZACHERY Lucerodottymax [facility] [id number] 09:30:00 09:45:00 Only [facility] 2021-12-29 2021-12-29 Orders [facility] [id number] 09:30:00 09:45:00 Only [facility] 2021-12-25 2021-12-25 [facility] [id number] 00:00:00 00:00:[address] [facility] 2021-12-25 2021-12-25 Outside [facility] [id number] 00:00:00 00:00:00 Orders [facility] 2021-12-25 2021-12-25 [facility] [id number] 00:00:00 00:00:[address] [facility] 2021-12-25 2021-12-25 Outside [facility] [id number] 00:00:00 00:00:00 Orders [facility] 2021-12-19 2021-12-19 Outpatient [facility] [id number] [facility] 09:34:33 23:59:00 [facility] 2021-12-19 2021-12-19 Office [facility] 1.2.840.114 [id number] [facility] 08:35:00 10:38:29 Visit KYLER Mastersr 350.1.13.21 Co llege 0.2.7.2.686 of [id number] Medi raza 504 e 2021-12-19 2021-12-19 Outpatient EL SLEH SLEH [id number] [facility] 10:13:05 10:13:05 2021-12-19 2021-12-19 Orders ZACHERY Werner [facility] [id number] 09:00:00 09:15:00 Only [facility] 2021-12-19 2021-12-19 [facility] [id number] 09:00:00 09:15:00 Only [facility] 2021-12-05 2021-12-05 Outpatient BCM [facility] [id number] [facility] 00:00:00 23:59:00 [facility] [employer] 2021-12-05 2021-12-05 Outpatient EL SLEH SLEH [id number] SLEH 14:33:51 14:33:51 2021-12-05 2021-12-05 Office Brady [facility] 1.2.840.114 [id number] [facility] 08:20:00 10:02:09 Visit Kyler Nyasia 350.1.13.21 Co llege 0.2.7.2.686 of [id number] [facility] raza 504 e 2021-12-05 2021-12-05 Orders ZACHERY Brady [facility] [id number] 09:00:00 09:15:00 Only [facility] 2021-12-05 2021-12-05 Orders Brady [facility] [id number] [facility] 09:00:00 09:15:00 Only [facility] 2021-12-01 2021-12-01 Outpatient EL SLEH SLEH [id number] SLEH 14:39:43 14:39:43 2021-11-28 2021-11-28 Outpatient BCM [facility] [id number] [facility] 09:12:13 23:59:00 [employer] 2021-11-28 2021-11-28 Office BRADY [facility] 1.2.840.114 [id number] [facility] 08:19:15 09:35:10 Visit ESSIEFL Nyasia 350.1.13.21 Co luis e 0.2.7.2.686 [id number] [facility] raza 504 e 2021-11-28 2021-11-28 Orders [facility] [id number] 07:15:00 07:30:00 Only [facility] 2021-11-28 2021-11-28 Orders [facility] [id number] 07:15:00 07:30:00 Only [facility] 2021-11-21 2021-11-21 [facility] [id number] 11:30:22 23:59:[address] [facility] 2021-11-21 2021-11-21 [facility] [id number] [facility] 11:30:22 23:59:[address] [facility] 2021-11-21 2021-11-21 Outpatient BRADY [facility] [id number] [facility] 11:30:22 23:59:00 [facility] 2021-11-21 2021-11-21 [facility] [id number] 10:09:16 11:29:[address] [facility] 2021-11-21 2021-11-21 [facility] [id number] [facility] 10:09:16 11:29:[address] [facility] 2021-11-21 2021-11-21 Outpatient BRADY [facility] [id number] [facility] 10:09:16 11:29:00 [facility] 2021-11-21 2021-11-21 [facility] [id number] 10:08:31 10:08:[address] [facility] 2021-11-21 2021-11-21 [facility], [facility] [id number] 10:08:31 10:08:[address] [facility] 2021-11-21 2021-11-21 Outpatient ZACHERY ABREU [facility] SLE [id number] SLE 10:08:31 10:08:31 [facility] 2021-11-21 2021-11-21 Outpatient ZACHERY ABREU [facility] SLE [id number] SLE 11:30:13 10:07:00 [facility] 2021-11-21 2021-11-21 [facility], [facility] [id number] 09:00:00 10:07:[address] [facility] 2021-11-21 2021-11-21 [facility] [id number] 09:00:00 10:07:[address] [facility] 2021-11-20 2021-11-20 Outside [facility] [id number] 00:00:00 00:00:00 Orders [facility] 2021-11-20 2021-11-20 [facility] [id number] 00:00:00 00:00:00 Orders [facility] 2021-11-14 2021-11-14 Outpatient [facility] [id number] [facility] 08:47:23 23:59:00 Joy 2021-11-14 2021-11-14 Outpatient ZACHERY [facility] [id number] SLE 16:05:04 16:05:04 2021-11-14 2021-11-14 Orders ZACHERY Lucerolink [facility] [id number] 09:45:00 10:00:00 Only [facility] 2021-11-14 2021-11-14 Orders [facility] [id number] 09:45:00 10:00:00 Only [facility] 2021-11-14 2021-11-14 Office [facility] 1.2.840.114 [id number] [facility] 08:16:10 09:06:18 Visit TANNAZ Nyasia 350.1.13.21 Co llege 0.2.7.2.686 of [id number] Medi raza 504 e 2021-11-07 2021-11-07 Outpatient BCM [facility] [id number] [facility] 09:00:03 23:59:00 [facility] [employer] 2021-11-07 2021-11-07 Office [facility] 1.2.840.114 [id number] [facility] 07:54:52 10:46:22 Visit TANNAZ Nyasia 350.1.13.21 Co llege 0.2.7.2.686 of [id number] Medi raza 504 e 2021-10-24 2021-10-24 [facility] [id number] [facility] 08:49:44 23:59:00 [facility] [employer] 2021-10-24 2021-10-24 Office Brady [facility] 1.2.840.114 [id number] [facility] 08:40:00 11:23:42 Visit Tannaz Nyasia 350.1.13.21 Co llege 0.2.7.2.686 of [id number] Medi raza 504 e 2021-10-17 2021-10-17 [facility] [id number] [facility] 09:20:28 23:59:00 [facility] [employer] 2021-10-17 2021-10-17 Office BRADY [facility] 1.2.840.114 [id number] [facility] 07:45:02 10:17:36 Visit TANNAZ Nyasia 350.1.13.21 Co llege 0.2.7.2.686 of [id number] Medi raza 504 e 2021-10-07 2021-10-07 Outside Brady [facility] [id number] 00:00:00 00:00:00 Orders [facility] 2021-10-07 2021-10-07 Outside Minomax [facility] [id number] 00:00:00 00:00:00 Orders [facility] 2021-10-03 2021-10-03 Outpatient BCM [facility] [id number] [facility] 09:11:56 23:59:00 [facility] [employer] 2021-10-03 2021-10-03 Office BRADY [facility] 1.2.840.114 [id number] [facility] 07:46:39 10:41:26 Visit ESSIEAZ Nyasia 350.1.13.21 Co llege 0.2.7.2.686 of [id number] Medi raza 504 e 2021-09-26 2021-09-26 Outpatient BCM [facility] [id number] [facility] 09:26:26 23:59:00 [employer] 2021-09-26 2021-09-26 Office Brady [facility] 1.2.840.114 [id number] [facility] 08:40:00 10:04:37 Visit Tannaz Nyasia 350.1.13.21 Co llege 0.2.7.2.686 of [id number] Medi raza 504 e 2021-09-26 2021-09-26 Office THONG [facility] 1.2.840.114 [id number] [facility] 07:46:50 09:26:58 Visit LIANNE Nyasia 350.1.13.21 Co llege 0.2.7.2.686 of [id number] Medi raza 580 e 2021-09-10 2021-09-10 Office JOHANNE [facility] 1.2.840.114 [id number] [facility] 12:21:21 15:59:02 Visit MOHAMED AMBULATOR 350.1.13.21 College Y 0.2.7.2.686 of [id number] Medi raza 325 e 2021-09-05 2021-09-05 Outpatient BCM [facility] [id number] [facility] 08:27:10 23:59:00 [employer] 2021-09-05 2021-09-05 Office BRADY [facility] 1.2.840.114 [id number] [facility] 07:43:25 10:12:05 Visit KYLER Nyasia 350.1.13.21 Co llege 0.2.7.2.686 of [id number] Medi raza 504 e 2021-08-29 2021-08-29 Outpatient BCM BCM [id number] [facility] 08:36:26 23:59:00 [employer] 2021-08-29 2021-08-29 Office BRADY [facility] 1.2.840.114 [id number] [facility] 07:55:16 11:32:58 Visit KYLER Nyasia 350.1.13.21 Co llege 0.2.7.2.686 of [id number] [facility] raza 504 e 2021-08-25 2021-08-25 Refill Wilber [facility] [id number] 00:00:00 00:00:00 [facility] 2021-08-25 2021-08-25 [facility] [id number] 00:00:00 00:00:00 [facility] 2021-08-15 2021-08-15 Outpatient BCM M [id number] [facility] 08:21:46 23:59:00 [facility] 2021-08-15 2021-08-15 Office THONG [facility] 1.2.840.114 [id number] [facility] 10:16:50 11:27:50 Visit LIANNE Nyasia 350.1.13.21 Co llege 0.2.7.2.686 of [id number] Medi raza 580 e 2021-08-08 2021-08-08 Outpatient BCM BCM [id number] [facility] 09:36:13 23:59:00 [facility] 2021-08-08 2021-08-08 Office BRADY [facility] 1.2.840.114 [id number] [facility] 09:07:17 13:26:12 Visit KYLER Nyasia 350.1.13.21 Co llege 0.2.7.2.686 [id number] Medi raza 504 e 2021-08-05 2021-08-05 Outpatient ZACHERY ABREU [facility] [id number] [facility] 00:00:00 00:00:00 [facility] 2021-08-05 2021-08-05 Telephone Rodriguez, [facility] [id number] 00:00:00 00:00:00 [facility] 2021-08-05 2021-08-05 Telephone Michael [facility] [id number] 00:00:00 00:00:00 [facility] 2021-08-04 2021-08-04 Outpatient ZACHERY ABREU [place] [id number] [facility] 09:40:19 12:58:00 [facility] 2021-08-04 2021-08-04 [facility] [id number] 08:43:00 12:58:00 Encounter [facility] 2021-08-04 2021-08-04 [facility] [id number] 08:43:00 12:58:00 [facility] 2021-08-04 2021-08-04 Outpatient MARYCARMENLINK [facility] [id number] [facility] 09:06:45 09:06:45 [facility] 2021-08-04 2021-08-04 [facility] [id number] [facility] 09:06:38 09:06:38 [facility] 2021-08-01 2021-08-01 Office BRADY [facility] 1.2.840.114 [id number] [facility] 09:55:04 12:40:00 [facility] Nyasia 350.1.13.21 Co llege 0.2.7.2.686 [id number] Medi raza 504 e 2021-07-31 2021-07-31 Telephone Michael [facility] [id number] 00:00:00 00:00:00 [facility] 2021-07-31 2021-07-31 Telephone Michael [facility] [id number] 00:00:00 00:00:00 [facility] 2021-07-29 2021-07-29 Outside [facility] [id number] 00:00:00 00:00:00 Orders [facility] 2021-07-28 2021-07-28 [facility] [id number] 14:26:25 23:59:[address] [facility] 2021-07-28 2021-07-28 [facility] [id number] SLE 14:26:25 23:59:00 [facility] 2021-07-28 2021-07-28 [facility] [id number] SLE 14:26:18 14:25:00 [facility] 2021-07-28 2021-07-28 [facility] [id number] 14:00:00 14:25:[address] [facility] 2021-07-25 2021-07-25 [facility] [id number] 00:00:00 00:00:00 Orders [facility] 2021-07-23 2021-07-23 [facility] [id number] 00:00:00 00:00:00 [facility] 2021-07-22 2021-07-22 Refill Wilber [facility] [id number] 00:00:00 00:00:00 [facility] 2021-07-21 2021-07-21 Outside [facility] [id number] [id number] [facility] 00:00:00 00:00:00 Orders [facility] 2021-07-18 2021-07-18 Office Thong [facility] [id number] [facility] 10:15:00 13:12:38 Visit Lianne ValleNair [id number] Co llege [id number] of [id number] [facility] raza 580 e 2021-07-18 2021-07-18 Office BRADY [facility] [id number] [facility] 09:06:21 11:18:52 Visit KYLER ValleNair [id number] Co llege [id number] of [id number] [facility] raza 504 e 2021-07-07 2021-07-11 Hospital UR Jenn Jacobs [facility] [id number] [facility] 09:45:00 12:28:00 Encounter Anna Wilburn, [facility] 2021-07-07 2021-07-11 Inpatient UR [facility] General Med 2 [id number] [facility] 09:45:00 12:28:00 2021-07-10 2021-07-10 Anesthesia Harrison, [facility] [id number] [facility] 10:54:00 12:31:00 Event Halie [facility] 2021-07-10 2021-07-10 Surgery Johanne [facility] [id number] [facility] 11:00:00 12:10:00 [facility] 2021-07-07 2021-07-07 Travel [facility] [id number] [facility] 00:[facility] 00:00:00 [facility] 2021-06-03 2021-06-26 Hospital Katya Jordan [facility] [id number] [facility] 08:45:00 11:07:00 [facility] 2021-[facility]-03 2021-06-26 [facility] [id number] [facility] 08:45:00 11:07:[address] [facility] 2021-06-18 2021-06-18 Orders Jerrell [facility] [id number] 00:00[facility]00 00:00:00 Only [facility] 2021-06-12 2021-06-12 Anesthesia BowersVaibhavang [facility] [id number] [facility] 16:09:00 18:16:00 Event Cherry Cuevas [facility] 2021-06-12 2021-06-12 Surgery [facility] [id number] 13:00:00 15:39:00 Surgeon [facility] 2021-06-09 2021-06-09 Ancillary EL 1.2.840.1 [id number] [facility] 20:05:00 20:10:00 Procedure 59870.1.1 it y of 3.412.2.7 [place] .3.995026 MD Lynn [facility] 2021-06-09 2021-06-09 Ancillary EL 1.2.840.1 [id number] [facility] 20:00:00 20:05:00 Procedure 12591.1.1 it y of 3.412.2.7 [place] .3.099247 MD Lynn [facility] 2021-06-09 2021-06-09 Ancillary EL 1.2.840.1 [id number] [facility] 17:00:00 17:05:00 Procedure 75594.1.1 it y of 3.412.2.7 [place] .3.045944 MD Lynn [facility] 2021-06-07 2021-06-07 Anesthesia Antony, [facility] [id number] 09:25:00 11:25:00 Event [facility] 2021-06-07 2021-06-07 Surgery [facility], [facility] [id number] 09:23:00 10:58:00 [facility] 2021-06-03 2021-06-03 Travel [facility] [id number] [facility] 00:[facility] 00:00:00 [facility] 2020-09-16 2020-09-16 Outpatient [facility] 00:00:00 00:00:00 -[id number] Results Test Description Test Time Test Comments Results Result Comments Source COMPREHENSIVE METABOLIC PANEL 2022-07-15 17:06:34 Test Item Value Reference Range Interpretation Comme nts GLUCOSE (test code = 2345-7) See_Comment H [Automated message] The system which generated this result transmitted ref erence range: 70 - 99 MG/DL. The reference range was not used to interpret this result as nataliya l/abnormal. BLOOD UREA NITROGEN (test code See_Comment [Automated message] The system = 6561-6) which generated this result transmitted ref erence range: 6 - 20 MG/DL. The r eference range was not used to interpret this result as nataliya l/abnormal. CREATININE (test code = See_Comment [Au tomated message] The system 2160-0) which generated this result transmitted ref erence range: 0.6 - 1.3 MG/DL. Th e reference range was not used to interpret this result as nataliya l/abnormal. EGFR (test code = 49480-1) See_Comment [Automated message] The system which generated this result transmitted ref erence range: >60 ML/MIN/1.73. Th e reference range was not used to interpret this result as nataliya l/abnormal. BUN/CREAT RATIO (test code = See_Comment H [Automated message] The system 3097-3) which generated this result transmitted ref erence range: 6 - 28 RATIO. The r eference range was not used to interpret this result as nataliya l/abnormal. SODIUM (test code = 2951-2) See_Comment [Automated message] The system which generated this result transmitted ref erence range: 133 - 146 MEQ/L. Th e reference range was not used to interpret this result as nataliya l/abnormal. POTASSIUM (test code = 2823-3) See_Comment [Automated message] The system which generated this result transmitted ref erence range: 3.5 - 5.4 MEQ/L. Th e reference range was not used to interpret this result as nataliya l/abnormal. CHLORIDE (test code = 2075-0) See_Comment [Automated message] The system which generated this result transmitted ref erence range: 100 - 112 MEQ/L. Th e reference range was not used to interpret this result as nataliya l/abnormal. CO2 (test code = 1963-8) See_Comment [A utomated message] The system which generated this result transmitted ref erence range: 21 - 30 MEQ/L. The reference range was not used to interpret this result as nataliya l/abnormal. CALCIUM (test code = 02104-1) See_Comment [Automated message] The system which generated this result transmitted ref erence range: 8.5 - 10.5 MG/DL. T he reference range was not u sed to interpret this result as normal/abnormal. PROTEIN TOTAL (test code = See_Comment [Automated message] The system 2885-2) which generated this result transmitted ref erence range: 6.1 - 8.1 G/DL. The reference range was not used to interpret this result as nataliya l/abnormal. ALBUMIN (test code = 81067-3) See_Comment [Automated message] The system which generated this result transmitted ref erence range: 3.4 - 4.8 G/DL. The reference range was not used to interpret this result as nataliya l/abnormal. GLOBULINS, SERUM, TOTAL (test See_Comment [Automated message] The system code = 96131-2) which genera manoj this result transmitted ref erence range: 1.9 - 3.7 G/DL. The reference range was not used to interpret this result as nataliya l/abnormal. A/G RATIO (test code = 1759-0) See_Comment [Automated message] The system which generated this result transmitted ref erence range: 1.0 - 2.6 RATIO. Th e reference range was not used to interpret this result as nataliya l/abnormal. BILIRUBIN TOTAL (test code = See_Comment [Automated message] The system 1974-07) which generated this result transmitted ref erence range: <=1.2 MG/DL. Th e reference range was not used to interpret this result as nataliya l/abnormal. ALKALINE PHOSPHATASE (test 148 U/L 30-132 H code = 6768-6) AST (SGOT) (test code = 28 U/L 7-56 1919-8) ALT (SGPT) (test code = 18 U/L 3-47 MIN TING PERFORMED AT [facility] 1744-2) PATHOLOGY LABOR [employer] [address], [address] [place], [place] [address] CLIA NO. [id number] Unle ss Otherwise Indicated, All Testing Performed At: [facility], [address] [place], [place] [address] Lace Pinner: Beny Mckeon M.D. CLIA Number [id number] Cap Accreditation [place] o. [id number] Lab Interpretation (test code Abnormal = 17071-2) [facility] W/AUTO DIFF WITH [id number] 16:41:08 Test Item Value Reference Range Interpretation Comments WHITE BLOOD CELL COUNT See_Comment [Aut omated message] (test code = 51271-0) The sy stem which generated this result transmitted ref erence range: 3.5 - 11 .0 K/UL. The refer ence range was not u sed to interpret this result as normal/abnor mal. RED BLOOD CELL COUNT See_Comment [Autom ated message] (test code = 21811-7) The sy stem which generated this result transmitted ref erence range: 3.80 - 5 .40 M/UL. The refer ence range was not u sed to interpret this result as normal/abnor mal. HEMOGLOBIN (test code = See_Comment [Au tomated message] 718-7) The system whic h generated this result transmitted ref erence range: 11.5 - 1 5.5 G/DL. The refer ence range was not u sed to interpret this result as normal/abnor mal. HEMATOCRIT (test code = 37.6 % 34.0-45.0 ) MEAN CORPUSCULAR VOLUME 98.4 fL 80.0-99.0 (test code = 24892-4) MEAN CORPUSCULAR 33.0 PG 25.0-33.0 HEMOGLOBIN (test code = 21253-3) MEAN CORPUSCULAR See_Comment [Automated message] HEMOGLOBIN CONC (test The sy stem which code = 23465-4) generated th is result transmitted ref erence range: 31.0 - 3 6.0 G/DL. The refer ence range was not u sed to interpret this result as normal/abnor mal. RED CELL DISTRIBUTION 16.2 % 11.5-15.0 H WIDTH (test code = 35617-9) NEUTROPHILS % (test code 74 % = 68286-6) LYMPHOCYTES % (test code 13 % = 49987-8) MONOCYTES % (test code = 9 % 92157-7) EOSINOPHILS % (test code 4 % = 57376-7) BASOPHILS % (test code = 0 % 05694-0) PLATELET COUNT (test See_Comment TESTIN G PERFORMED AT code = 30791-5) [facility] [address] [place] [address] CLIA NO. [id number] [Aut omated message] The sy stem which generated this result transmit manoj reference range : 130 - 400 K/UL. The reference range was not used to int erpret this result as normal/abnormal . NEUTROPHILS ABSOLUTE See_Comment [Autom ated message] COUNT (test code = The syste m which 23834-5) generated this result transmitted ref erence range: 1.50 - 7 .50 K/UL. The refer ence range was not u sed to interpret this result as normal/abnor mal. LYMPHOCYTES ABSOLUTE See_Comment L [Autom ated message] COUNT (test code = The syste m which 45304-7) generated this result transmitted ref erence range: 1.00 - 4 .00 K/UL. The refer ence range was not u sed to interpret this result as normal/abnor mal. MONOCYTES ABSOLUTE COUNT See_Comment [A utomated message] (test code = 31249-6) The sy stem which generated this result transmitted ref erence range: 0.20 - 1 .00 K/UL. The refer ence range was not u sed to interpret this result as normal/abnor mal. BASOPHILS ABSOLUTE COUNT See_Comment Un less Otherwise (test code = 69102-0) Indica manoj, All Testing Perform ed At: [facility], [address] [place] [address] Laborator y Director: Beny Mckeon M.D. CLIA Number [id number] Cap Accreditation N o. [id number] [Autom ated message] The sy stem which generated this result transmit manoj reference range : 0.00 - 0.20 K/UL. Th e reference range was not used to int erpret this result as normal/abnormal . Lab Interpretation (test Abnormal code = 33455-1) [facility] [id number] 12:45:52 Test Item Value Reference Range Interpretation Comments GLUCOSE (test code = See_Comment H [Autom ated message] 2345-7) The system [employer] generated this result transmitted ref erence range: 70 - 99 MG/DL. The reference r rizwana was not used to interpret this result as normal/abnor mal. BLOOD UREA NITROGEN See_Comment [Automa manoj message] (test code = 3091-6) The s tem which generated this result transmitted ref erence range: 6 - 20 M G/DL. The reference r rizwana was not used to interpret this result as normal/abnor mal. CREATININE (test code = See_Comment [Au tomated message] 2160-0) The system [employer] generated this result transmitted ref erence range: 0.60 - 1 .30 MG/DL. The refe rence range was not u sed to interpret this result as normal/abnor mal. EGFR (test code = See_Comment [Automate d message] 39787-3) The system [employer] generated this result transmitted ref erence range: >60 ML/MIN/1.73. Th e reference range was not used to int erpret this result as normal/abnormal . BUN/CREAT RATIO (test See_Comment [Auto mated message] code = 3097-3) The system [employer] generated this result transmitted ref erence range: 6 - 28 R ATIO. The reference r rizwana was not used to interpret this result as normal/abnor mal. SODIUM (test code = See_Comment [Automa manoj message] 2951-2) The system [employer] generated this result transmitted ref erence range: 133 - 14 6 MEQ/L. The refe rence range was not u sed to interpret this result as normal/abnor mal. POTASSIUM (test code = See_Comment [Aut omated message] 2823-3) The system [employer] generated this result transmitted ref erence range: 3.5 - 5. 4 MEQ/L. The refe rence range was not u sed to interpret this result as normal/abnor mal. CHLORIDE (test code = See_Comment [Auto mated message] 7165-0) The system [facility] generated this result transmitted ref erence range: 95 - 107 MEQ/L. The reference r rizwana was not used to interpret this result as normal/abnor mal. CO2 (test code = See_Comment [Automated message] 1963-8) The system [employer] generated this result transmitted ref erence range: 19 - 31 MEQ/L. The reference r rizwana was not used to interpret this result as normal/abnor mal. CALCIUM (test code = See_Comment [Autom ated message] 62963-9) The system [employer] generated this result transmitted ref erence range: 8.5 - 10 .5 MG/DL. The refe rence range was not u sed to interpret this result as normal/abnor mal. PROTEIN TOTAL (test See_Comment [Automa manoj message] code = 2885-2) The system [facility] generated this result transmitted ref erence range: 6.1 - 8. 3 G/DL. The reference r rizwana was not used to interpret this result as normal/abnor mal. ALBUMIN (test code = See_Comment [Autom ated message] 39265-4) The system [facility] [employer] generated this result transmitted ref erence range: 3.5 - 5. 2 G/DL. The reference r rizwana was not used to interpret this result as normal/abnor mal. GLOBULINS, SERUM, TOTAL See_Comment [Au tomated message] (test code = 87654-5) The sy stem which generated this result transmitted ref erence range: 1.9 - 3. 7 G/DL. The reference r rizwana was not used to interpret this result as normal/abnor mal. A/G RATIO (test code = See_Comment [Aut omated message] 1619-0) The system [facility] generated this result transmitted ref erence range: 1.0 - 2. 6 RATIO. The refe rence range was not u sed to interpret this result as normal/abnor mal. BILIRUBIN TOTAL (test See_Comment [Auto mated message] code = 1975-2) The system ich generated this result transmitted ref erence range: <=1.2 MG /DL. The reference r rizwana was not used to interpret this result as normal/abnor mal. ALKALINE PHOSPHATASE 162 U/L 40-132 H (test code = 6768-6) AST (SGOT) (test code = 22 U/L 9-40 1920-8) ALT (SGPT) (test code = 14 U/L 5-40 Unl ess Otherwise 1744-2) Indicated, All Testing [facility]formed At: [facility], [address] [place] [address] Laborator y Director: Beny Mckeon M.D. IA Number [id number] Cap Accreditation [place] o. [id number] Lab Interpretation Abnormal (test code = 15028-7) [facility] W/AUTO DIFF WITH [id number] 12:02:15 Test Item Value Reference Range Interpretation Comments WHITE BLOOD CELL COUNT See_Comment [Aut omated message] (test code = 73671-3) The sy stem which generated this result transmitted ref erence range: 3.5 - 11 .0 K/UL. The refer ence range was not u sed to interpret this result as normal/abnor mal. RED BLOOD CELL COUNT See_Comment L [Autom ated message] (test code = 57547-2) The sy stem which generated this result transmitted ref erence range: 3.80 - 5 .40 M/UL. The refer ence range was not u sed to interpret this result as normal/abnor mal. HEMOGLOBIN (test code = See_Comment [Au tomated message] 718-7) The system ic h generated this result transmitted ref erence range: 11.5 - 1 5.5 G/DL. The refer ence range was not u sed to interpret this result as normal/abnor mal. HEMATOCRIT (test code = 35.6 % 34.0-45.0 73709-3) MEAN CORPUSCULAR VOLUME 97.3 fL 80.0-99.0 (test code = 98433-9) MEAN CORPUSCULAR 32.8 PG 25.0-33.0 HEMOGLOBIN (test code = 91250-7) MEAN CORPUSCULAR See_Comment [Automated message] HEMOGLOBIN CONC (test The sy stem which code = 13231-4) generated th is result transmitted ref erence range: 31.0 - 3 6.0 G/DL. The refer ence range was not u sed to interpret this result as normal/abnor mal. RED CELL DISTRIBUTION 17.0 % 11.5-15.0 H WIDTH (test code = 20197-8) NEUTROPHILS % (test code 72.1 % = 70595-8) LYMPHOCYTES % (test code 12.5 % = 03205-5) MONOCYTES % (test code = 11.0 % 03422-5) EOSINOPHILS % (test code 3.3 % = 52729-9) BASOPHILS % (test code = 0.5 % 01666-1) IMMATURE GRANULOCYTES 0.6 % (test code = 27113-0) NUCLEATED RBC'S See_Comment Unless Othe rwise MYELOPEROX STAIN (test Indic ated, All code = 19815-9) Testing Perf ormed At: [facility], [address] [place] [address] Laborator y Director: Beny Mckeon M.D. CLIA Number [id number] Cap Accreditation N o. [id number] [Autom ated message] The sy stem which generated this result transmit manoj reference range : 0.00 - 0.11 K/UL. Th e reference range was not used to int erpret this result as normal/abnormal . PLATELET COUNT (test See_Comment [Autom ated message] code = 09492-3) The system [facility] generated this result transmitted ref erence range: 130 - 40 0 K/UL. The refer ence range was not u sed to interpret this result as normal/abnor mal. NEUTROPHILS ABSOLUTE See_Comment [Autom ated message] COUNT (test code = The syste which 44697-7) generated this result transmitted ref erence range: 1.50 - 7 .50 K/UL. The refer ence range was not u sed to interpret this result as normal/abnor mal. LYMPHOCYTES ABSOLUTE See_Comment L [Autom ated message] COUNT (test code = The syste m which 04147-6) generated this result transmitted ref erence range: 1.00 - 4 .00 K/UL. The refer ence range was not u sed to interpret this result as normal/abnor mal. MONOCYTES ABSOLUTE COUNT See_Comment [A utomated message] (test code = 00125-4) The sy stem which generated this result transmitted ref erence range: 0.20 - 1 .00 K/UL. The refer ence range was not u sed to interpret this result as normal/abnor mal. BASOPHILS ABSOLUTE COUNT See_Comment [A utomated message] (test code = 62912-8) The sy stem which generated this result transmitted ref erence range: 0.00 - 0 .20 K/UL. The refer ence range was not u sed to interpret this result as normal/abnor mal. IMMATURE GRANS (ABS) See_Comment [Autom ated message] (test code = 9987) The syste m which generated this result transmitted ref erence range: 0.00 - 0 .10 K/UL. The refer ence range was not u sed to interpret this result as normal/abnor mal. Lab Interpretation (test Abnormal code = 08326-1) [facility], WITHOUT / WITH IV [id number] 10:38:00Release to patient->ImmediateWhich 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 Multiplanar and multisequence MR images of the biliary system are obtained, with dedicated MRCP protocol and images. In addition, 3 dimensional reformatted images of the biliary system are obtained to evaluate the biliary anatomy. Comparison: MRI dated January 06, 2022, June 04, 2021, and CT dated November 21, 2021 Discussion: Righthepatic lobe is enlarged, measuring 22 cm sagittally. The left lobe is atrophied. Again seen is a hypoenhancing mass in the left lobe that measures approximately 5.4 x 6.2 x 5.1 cm, slightly smaller since the prior study. It demonstrates low-grade reticular enhancement internally in the delayed phase.There is a stable 1.4 cm second lesion in segment 6, which is T2 hyperintense demonstrating rim enhancement in the arterial phase, and gradual central enhancement. No new liver mass is identified. There is mild biliary ductal dilatation upstream to the mass. A CBD stent is present, which extends into the right bile duct. Gallbladder is normal. No stone is identified. Hepatic vasculature is patent. The main portal vein measures 11 mm in diameter. Left portal vein is poorly seen, probably occluded. Spleen is normal in size. There is pancreatic divisum. No peripancreatic fluid or inflammatory change. Adrenal glands are normal. Kidneys demonstrate no mass or hydronephrosis. There is no lymphadenopathy. No ascites. A small hiatal hernia is noted. Visualized bowel is otherwise unremarkable. No suspicious bony lesion is identified. Impression: Continued decrease in size of a hypoenhancing mass in the left hepatic lobe. It causes mild upstream intrahepatic biliary ductal dilatation. A CBD stent is in place. Unchanged 1.4 cm second lesion in segment 6. No new liver mass is identified. 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 This exam was performed according to our departmental dose optimization program which includes automated exposure control, adjustment of the mA and/or kV according to patient's size and/or use of iterative reconstructive technique. Comparison Film: November 21, 2021 and July 28, 2021 Discussion: Thereis a right-sided Port-A-Cath. Visualized thyroid gland is normal. No subclavicular, axillary or hilar lymphadenopathy. Heart and pericardium are unremarkable. The distal esophagus appears thick- walled and there is a tiny hiatal hernia. Previously described small lower mediastinal lymph nodes have resolved. An anterior pericardial lymph node measuring 7 mm is stable. There is no mass or consolidation in the lung. No new pulmonary nodule is identified. Central airways are patent, no bronchiectasis or bronchial wall thickening. Again seen is a hypodense lesion in liver, please refer to MRI for details. A biliary stent is present. Bony structures demonstrate degenerative changes. No suspicious bony lesion. Impression: No new disease is identified in the thorax. Stable 7 mm anterior pericardial lymph n ode. Small hiatal hernia. The distal esophagus appears thick-walled, which may reflect esophagitis. Signed: Vin Vargas MDReport Verified Date/Time: 05/28/2022 13:33:09 Reading Location: [address] Consult Reading Room COMPREHENSIVE METABOLIC [id number] 13:38:05 Test Item Value Reference Range Interpretation Comments GLUCOSE (test code = See_Comment H [Autom ated message] 2345-7) The system [employer] generated this result transmitted ref erence range: 70 - 99 MG/DL. The reference r rizwana was not used to interpret this result as normal/abnor mal. BLOOD UREA NITROGEN See_Comment [Automa manoj message] (test code = 3091-6) The s tem which generated this result transmitted ref erence range: 6 - 20 M G/DL. The reference r rizwana was not used to interpret this result as normal/abnor mal. CREATININE (test code = See_Comment [Au tomated message] 2160-0) The system [employer] generated this result transmitted ref erence range: 0.60 - 1 .30 MG/DL. The refe rence range was not u sed to interpret this result as normal/abnor mal. EGFR (test code = See_Comment [Automate d message] 16442-6) The system [employer] generated this result transmitted ref erence range: >60 ML/MIN/1.73. Th e reference range was not used to int erpret this result as normal/abnormal . BUN/CREAT RATIO (test See_Comment [Auto mated message] code = 3097-3) The system [employer] [facility] generated this result transmitted ref erence range: 6 - 28 R ATIO. The reference r rizwana was not used to interpret this result as normal/abnor mal. SODIUM (test code = See_Comment [Automa manoj message] 2951-2) The system [employer] generated this result transmitted ref erence range: 133 - 14 6 MEQ/L. The refe rence range was not u sed to interpret this result as normal/abnor mal. POTASSIUM (test code = See_Comment [Aut omated message] 3653-3) The system [employer] generated this result transmitted ref erence range: 3.5 - 5. 4 MEQ/L. The refe rence range was not u sed to interpret this result as normal/abnor mal. CHLORIDE (test code = See_Comment [Auto mated message] 2265-0) The system [facility] [employer] generated this result transmitted ref erence range: 95 - 107 MEQ/L. The reference r rizwana was not used to interpret this result as normal/abnor mal. CO2 (test code = See_Comment [Automated message] 1963-01) The system [facility] generated this result transmitted ref erence range: 19 - 31 MEQ/L. The reference r rizwana was not used to interpret this result as normal/abnor mal. CALCIUM (test code = See_Comment [Autom ated message] 66005-4) The system [facility] [employer] generated this result transmitted ref erence range: 8.5 - 10 .5 MG/DL. The refe rence range was not u sed to interpret this result as normal/abnor mal. PROTEIN TOTAL (test See_Comment [Automa manoj message] code = 2885-2) The system [employer] generated this result transmitted ref erence range: 6.1 - 8. 3 G/DL. The reference r rizwana was not used to interpret this result as normal/abnor mal. ALBUMIN (test code = See_Comment [Autom ated message] 50480-6) The system [employer] generated this result transmitted ref erence range: 3.5 - 5. 2 G/DL. The reference r rizwana was not used to interpret this result as normal/abnor mal. GLOBULINS, SERUM, TOTAL See_Comment [Au tomated message] (test code = 63170-8) The sy stem which generated this result transmitted ref erence range: 1.9 - 3. 7 G/DL. The reference r rizwana was not used to interpret this result as normal/abnor mal. A/G RATIO (test code = See_Comment [Aut omated message] 1759-0) The system [employer] generated this result transmitted ref erence range: 1.0 - 2. 6 RATIO. The refe rence range was not u sed to interpret this result as normal/abnor mal. BILIRUBIN TOTAL (test See_Comment [Auto mated message] code = 1975-2) The system [employer] generated this result transmitted ref erence range: <=1.2 MG /DL. The reference r rizwana was not used to interpret this result as normal/abnor mal. ALKALINE PHOSPHATASE 109 U/L 40-132 (test code = 6768-6) AST (SGOT) (test code = 18 U/L 9-40 1920-8) ALT (SGPT) (test code = 10 U/L 5-40 Unl ess Otherwise 1744-2) Indicated, All Testing Performed At: [facility], [address] [facility] [place] [address] Laborator y Director: Beny Mckeon M.D. CLIA Number [id number] Cap Accreditation [place] o. [id number] Lab Interpretation Abnormal (test code = 56983-9) [facility] W/AUTO DIFF WITH [id number] 10:09:55 Test Item Value Reference Range Interpretation Comments WHITE BLOOD CELL COUNT See_Comment [Aut omated message] (test code = 48851-4) The sy stem which generated this result transmitted ref erence range: 3.5 - 11 .0 K/UL. The refer ence range was not u sed to interpret this result as normal/abnor mal. RED BLOOD CELL COUNT See_Comment [Autom ated message] (test code = 82284-3) The sy stem which generated this result transmitted ref erence range: 3.80 - 5 .40 M/UL. The refer ence range was not u sed to interpret this result as normal/abnor mal. HEMOGLOBIN (test code = See_Comment [Au tomated message] 718-7) The system whic h generated this result transmitted ref erence range: 11.5 - 1 5.5 G/DL. The refer ence range was not u sed to interpret this result as normal/abnor mal. HEMATOCRIT (test code = 36.2 % 34-45 47831-0) MEAN CORPUSCULAR VOLUME 88.5 fL 80-99 (test code = 94812-5) MEAN CORPUSCULAR 29.1 PG 25-33 HEMOGLOBIN (test code = 21660-5) MEAN CORPUSCULAR See_Comment [Automated message] HEMOGLOBIN CONC (test The sy stem which code = 39882-0) generated th is result transmitted ref erence range: 31.0 - 3 6.0 G/DL. The refer ence range was not u sed to interpret this result as normal/abnor mal. RED CELL DISTRIBUTION 16.8 % 11.5-15 H WIDTH (test code = 18235-6) NEUTROPHILS % (test code 77.8 % = 26044-8) LYMPHOCYTES % (test code 11.8 % = 93285-7) MONOCYTES % (test code = 8.2 % 90192-4) EOSINOPHILS % (test code 1.0 % = 83818-6) BASOPHILS % (test code = 0.4 % 02197-1) IMMATURE GRANULOCYTES 0.8 % (test code = 03775-5) NUCLEATED RBC'S See_Comment Unless Othe rwise MYELOPEROX STAIN (test Indic ated, All code = 33095-9) Testing Perf ormed At: [facility], [address] [place] [address] Laborator y Director: Beny Mckeon M.D. IA Number [id number] Cap Accreditation N o. [id number] [Autom ated message] The sy stem which generated this result transmit manoj reference range : 0.00 - 0.11 K/UL. Th e reference range was not used to int erpret this result as normal/abnormal . PLATELET COUNT (test See_Comment [Autom ated message] code = 70456-8) The system [employer] generated this result transmitted ref erence range: 130 - 40 0 K/UL. The refer ence range was not u sed to interpret this result as normal/abnor mal. NEUTROPHILS ABSOLUTE See_Comment [Autom ated message] COUNT (test code = The syste m which 47741-5) generated this result transmitted ref erence range: 1.50 - 7 .50 K/UL. The refer ence range was not u sed to interpret this result as normal/abnor mal. LYMPHOCYTES ABSOLUTE See_Comment L [Autom ated message] COUNT (test code = The syste m which 52710-2) generated this result transmitted ref erence range: 1.00 - 4 .00 K/UL. The refer ence range was not u sed to interpret this result as normal/abnor mal. MONOCYTES ABSOLUTE COUNT See_Comment [A utomated message] (test code = 87789-6) The sy stem which generated this result transmitted ref erence range: 0.20 - 1 .00 K/UL. The refer ence range was not u sed to interpret this result as normal/abnor mal. BASOPHILS ABSOLUTE COUNT See_Comment [A utomated message] (test code = 15298-0) The sy stem which generated this result transmitted ref erence range: 0.00 - 0 .20 K/UL. The refer ence range was not u sed to interpret this result as normal/abnor mal. IMMATURE GRANS (ABS) See_Comment [Autom ated message] (test code = 9987) The syste m which generated this result transmitted ref erence range: 0.00 - 0 .10 K/UL. The refer ence range was not u sed to interpret this result as normal/abnor mal. Lab Interpretation (test Abnormal code = 35735-6) [facility]-Vwkgszdgyd0178-73-19 14:21:17 Test Item Value Reference Range Interpretation Comments POC-Creatinine 0.7 mg/dL 0.6-1.3 : TESTED AT [facility] [address] (test code = [place] [address]-6) 80426: Drop 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 /Hardware Developer ID = [id number] for Yusra Rubio POC-EGFR (test 105 mL/min/1.73M2 Interpretat ion of eGFR code = 76237-3) Values Stage Description Result G1 Nataliya l or high >=90 G2 Mildly decreased 60-89 G3a Mildl y to moderately 45-5 9 G3b Moderately to s jolie 30-44 G4 Severely dec reased 15-29 G5 Kidney Failu re <15Reported eGF R is based on the CKD-EPI 2021 equation that d oes not use a race coeffici ent Estimated GFR i s not as accurate as Cre atinine Clearance in pr edicting glomerular filt ration rate. Estimated GFR i s not applicable for dialysis patients [facility]-Nmnyaxkzeq1495-29-24 14:21:17 Test Item Value Reference Range Interpretation Comments POC-Creatinine 0.7 mg/dL 0.6-1.3 : TESTED AT [facility] [address] (test code = [place] [address]-0) 80771: Drop 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 /Hardware Developer ID = [id number] for Yusra Rubio POC-EGFR (test 105 mL/min/1.73M2 Interpretat ion of eGFR code = 67941-0) Values Stage Description Result G1 Nataliya l or high >=90 G2 Mildly decreased 60-89 G3a Mildl y to moderately 45-5 9 G3b Moderately to s jolie 30-44 G4 Severely dec reased 15-29 G5 Kidney Failure <15Reported eGF R is based on the CKD-EPI 2021 equation that d oes not use a race coeffici ent Estimated GFR i s not as accurate as Cre atinine Clearance in pr edicting glomerular filt ration rate. Estimated GFR i s not applicable for dialysis patients [facility] 14:21:17 Test Item Value Reference Range Interpretation Comments POC-Creatinine 0.7 mg/dL 0.6-1.3 : TESTED AT [facility] [address] (test code = [place] [address]-7) 34161: Drop 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 /Hardware Developer ID = [id number] for Yusra Rubio POC-EGFR (test 105 mL/min/1.73M2 Interpretat ion of eGFR code = 88954-4) Values Stage Description Result G1 Nataliya l or high >=90 G2 Mildly decreased 60-89 G3a Mildl y to moderately 45-5 9 G3b Moderately to s jolie 30-44 G4 Severely dec reased 15-29 G5 Kidney Failu re <15Reported eGF R is based on the CKD-EPI 2021 equation that d oes not use a race coeffici ent Estimated GFR i s not as accurate as Cre atinine Clearance in pr edicting glomerular filt ration rate. Estimated GFR i s not applicable for dialysis patients [facility]ecaTlaxoqutgw1191-79-73 14:21:17 Test Item Value Reference Range Interpretation Comments POC-Creatinine 0.7 mg/dL 0.6-1.3 : TESTED AT [facility] [address] (test code = [place] [address]-1) 14943: Drop 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 /Hardware Developer ID = [id number] for Yusra Rubio POC-EGFR (test 105 mL/min/1.73M2 Interpreta tion of eGFR code = 34130-7) Values Stage Description Result G1 Nataliya l or high >=90 G2 Mildly decreased 60-89 G3a Mildl y to moderately 45- 59 G3b Moderately to s jolie 30-44 G4 Severely dec reased 15-29 G5 Kidney Failu re <15Reported eGF R is based on the CKD-EPI 2021 equation that d oes not use a race coeffici ent Estimated GFR i s not as accurate as Cre atinine Clearance in pr edicting glomerular filt ration rate. Estimated GFR i s not applicable for dialysis patients [facility]-Kbyageayzp4412-47-12 14:21:17 Test Item Value Reference Range Interpretation Comments POC-Creatinine 0.7 mg/dL 0.6-1.3 : TESTED AT [facility] [address] (test code = [place] [address]-5) 82601: Drop 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 /Hardware Developer ID = [id number] for Yusra Rubio POC-EGFR (test 105 mL/min/1.73M2 Interpretat ion of eGFR code = 32211-5) Values Stage Description Result G1 Nataliya l or high >=90 G2 Mildly decreased 60-89 G3a Mildl y to moderately 45-5 9 G3b Moderately to s jolie 30-44 G4 Severely dec reased 15-29 G5 Kidney Failu re <15Reported eGF R is based on the CKD-EPI 2021 equation that d oes not use a race coeffici ent Estimated GFR i s not as accurate as Cre atinine Clearance in pr edicting glomerular filt ration rate. Estimated GFR i s not applicable for dialysis patients [facility]bvjhjvhjv1171-59-16 14:21:17 Test Item Value Reference Range Interpretation Comments POC-Creatinine 0.7 mg/dL 0.6-1.3 : TESTED AT [facility] [address] (test code = [place] [address]-6) 33670: Drop 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 /Hardware Developer ID = [id number] for Yusra Rubio POC-EGFR (test 105 mL/min/1.73M2 Interpretat ion of eGFR code = 32580-9) Values Stage Description Result G1 Nataliya l or high >=90 G2 Mildly decreased 60-89 G3a Mildl y to moderately 45-5 9 G3b Moderately to s jolie 30-44 G4 Severely dec reased 15-29 G5 Kidney Failu re <15Reported eGF R is based on the CKD-EPI 2021 equation that d oes not use a race coeffici ent Estimated GFR i s not as accurate as Cre atinine Clearance in pr edicting glomerular filt ration rate. Estimated GFR i s not applicable for dialysis patients [facility]-Vdiybpzyvy2346-61-87 14:21:17 Test Item Value Reference Range Interpretation Comments POC-Creatinine 0.7 mg/dL 0.6-1.3 : TESTED AT [facility] [address] (test code = [place] [address]-8) 40692: Drop 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 /Hardware Developer ID = [id number] for Yusra Rubio POC-EGFR (test 105 mL/min/1.73M2 Interpretat ion of eGFR code = 86199-3) Values Stage Description Result G1 Nataliya l or high >=90 G2 Mildly decreased 60-89 G3a Mild ly to moderately 45-5 9 G3b Moderately to s jolie 30-44 G4 Severely dec reased 15-29 G5 Kidney Failu re <15Reported eGF R is based on the CKD-EPI 2021 equation that d oes not use a race coeffici ent Estimated GFR i s not as accurate as Cre atinine Clearance in pr edicting glomerular filt ration rate. Estimated GFR i s not applicable for dialysis patients [facility]ecaAiourygwop4336-25-62 14:21:17 Test Item Value Reference Range Interpretation Comments POC-Creatinine 0.7 mg/dL 0.6-1.3 : TESTED AT [facility] [address] (test code = [place] [address]-2) 28681: Drop 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 /Hardware Developer ID = [id number] for Yusra Rubio POC-EGFR (test 105 mL/min/1.73M2 Interpretat ion of eGFR code = 09034-8) Values Stage Description Result G1 Nataliya l or high >=90 G2 Mildly decreased 60-89 G3a Mildl y to moderately 45-5 9 G3b Moderately to s ojlie 30-44 G4 Severely dec reased 15-29 G5 Kidney Failu re <15Reported eGF R is based on the CKD-EPI 2021 equation that d oes not use a race coeffici ent Estimated GFR i s not as accurate as Cre atinine Clearance in pr edicting glomerular filt ration rate. Estimated GFR i s not applicable for dialysis patients [facility]ecaGkfhduixth5882-66-21 14:21:17 Test Item Value Reference Range Interpretation Comments POC-Creatinine 0.7 mg/dL 0.6-1.3 : TESTED AT [facility] [address] (test code = [place] [address]-4) 72416: Drop 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 /Hardware Developer ID = [id number] for Yusra Rubio POC-EGFR (test 105 mL/min/1.73M2 Interpretat ion of eGFR code = 22697-4) Values Stage Description Result G1 Nataliya l or high >=90 G2 Mildly decreased 60-89 G3a Mildl y to moderately 45-5 9 G3b Moderately to s jolie 30-44 G4 Severely dec reased 15-29 G5 Kidney Failu re <15Reported eGF R is based on the CKD-EPI 2021 equation that d oes not use a race coeffici ent Estimated GFR i s not as accurate as Cre atinine Clearance in pr edicting glomerular filt ration rate. Estimated GFR i s not applicable for dialysis patients [facility]ecaTcfpxjoqqo9213-82-80 14:21:17 Test Item Value Reference Range Interpretation Comments POC-Creatinine 0.7 mg/dL 0.6-1.3 : TESTED AT [facility] [address] (test code = [place] [address]-5) 58643: Drop 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 /Hardware Developer ID = [id number] for Yusra Rubio POC-EGFR (test 105 mL/min/1.73M2 Interpretat ion of eGFR code = 20543-3) Values Stage Description Result G1 Nataliya l or high >=90 G2 Mildly decreased 60-89 G3a Mildl y to moderately 45-5 9 G3b Moderately to s jolie 30-44 G4 Severely dec reased 15-29 G5 Kidney Failu re <15Reported eGF R is based on the CKD-EPI 2021 equation that d oes not use a race coeffici ent Estimated GFR i s not as accurate as Cre atinine Clearance in pr edicting glomerular filt ration rate. Estimated GFR i s not applicable for dialysis patients [facility]-Plbdipypyt2187-40-01 14:21:17 Test Item Value Reference Range Interpretation Comments POC-Creatinine 0.7 mg/dL 0.6-1.3 : TESTED AT [facility] [address] (test code = [place] [address]-3) 82625: Drop 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 /Hardware Developer ID = [id number] for Yusra Rubio POC-EGFR (test 105 mL/min/1.73M2 Interpretat ion of eGFR code = 33233-4) Values Stage Description Result G1 Nataliya l or high >=90 G2 Mildly decreased 60-89 G3a Mildl y to moderately 45-5 9 G3b Moderately to s jolie 30-44 G4 Severely dec reased 15-29 G5 Kidney Failu re <15Reported eGF R is based on the CKD-EPI 2021 equation that d oes not use a race coeffici ent Estimated GFR i s not as accurate as Cre atinine Clearance in pr edicting glomerular filt ration rate. Estimated GFR i s not applicable for dialysis patients [facility]-Zxxajexhqq6721-54-16 14:21:17 Test Item Value Reference Range Interpretation Comments POC-Creatinine 0.7 mg/dL 0.6-1.3 : TESTED AT [facility] [address] (test code = [place] [address]-5) 51869: Drop 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 /Hardware Developer ID = [id number] for Yusra Rubio POC-EGFR (test 105 mL/min/1.73M2 Interpretat ion of eGFR code = 43053-7) Values Stage Description Result G1 Nataliya l or high >=90 G2 Mildly decreased 60-89 G3a Mildl y to moderately 45-5 9 G3b Moderately to s jolie 30-44 G4 Severely dec reased 15-29 G5 Kidney Failu re <15Reported eGF R is based on the CKD-EPI 2021 equation that d oes not use a race coeffici ent Estimated GFR i s not as accurate as Cre atinine Clearance in pr edicting glomerular filt ration rate. Estimated GFR i s not applicable for dialysis patients [facility]-Eyfzczqzpj8887-03-88 14:21:17 Test Item Value Reference Range Interpretation Comments POC-Creatinine 0.7 mg/dL 0.6-1.3 : TESTED AT [facility] [address] (test code = [place] [address]-8) 86161: Drop 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 /Hardware Developer ID = [id number] for Yusra Rubio POC-EGFR (test 105 mL/min/1.73M2 Interpretat ion of eGFR code = 81234-6) Values Stage Description Result G1 Nataliya l or high >=90 G2 Mildly decreased 60-89 G3a Mildl y to moderately 45-5 9 G3b Moderately to s jolie 30-44 G4 Severely dec reased 15-29 G5 Kidney Failu re <15Reported eGF R is based on the CKD-EPI 2021 equation that d oes not use a race coeffici ent Estimated GFR i s not as accurate as Cre atinine Clearance in pr edicting glomerular filt ration rate. Estimated GFR i s not applicable for dialysis patients [facility]-QAPTFJBYRG1110-49-17 14:21:17 Test Item Value Reference Range Interpretation Comments POC-CREATININ 0.7 mg/dL 0.6-1.3 : TESTED AT [facility] [address] (ROBYN) [place] [address]: (test code = Drop 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/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 ID = [id number]) [id number] for Aust in, Yusra POC-EGFR 105 Interpretation of eGFR ([facility]) mL/min/1.73M2 Values Stage D escription (test code = Result G1 Nataliya l or high 1860) >=90 G2 Mildly decreased 60-89 G3a Mildl y to moderately 45-5 9 G3b Moderately to s jolie 30-44 G4 Severely dec reased 15-29 G5 Kidney Failu re <15Reported eGF R is based on the CKD-EPI 202 1 equation that does not u se a race coefficientEsti mated GFR is not as accurate as Creatinine Roya lory in predicting glom erular filtration rate . 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 COMPARISON: MR from 06/04/2021. FINDINGS: LOWER THORAX: Unremarkable. LIVER: Mild diffuse loss of signal in the liver on out of phase imaging. A mass in the central portion of the liver which is mainly centered in the left hepatic lobe measures 6.8 x 6.3 x 7.6 cm, previously 8.5 x 7.3 x 9.4 cm. This mass occludes the left portal vein and resultsin mild intrahepatic ductal dilation, previously moderate intrahepatic ductal dilation. An additional mass in segment measures 1.4 cm, previously 1.5 cm. BILIARY: The gallbladder is unremarkable. There is mild intrahepatic biliary ductal dilation caused by the mass in the central liver, previously moderate SPLEEN: 13 cm splenomegaly.PANCREAS: No focal masses or ductal dilatation. Pancreas divisum.ADRENALS: No adrenal nodules.KIDNEYS/URETERS: No hydronephrosis or solid mass lesions. PERITONEUM/RET ROPERITONEUM: No free fluid.LYMPH NODES: The previous is seen centrally hypoenhancing lymph node in the upper abdomen adjacent to the celiac axis has resolved, previously 1.2 cm in short axis dimension. VESSELS: Unremarkable. GI TRACT: No distention or wall thickening. BONES AND SOFT TISSUES: Unremarkable. IMPRESSION: 1.The mass which is centered in the left hepatic lobe but involves the central liver has decreased in size and measures 6.8 x 6.3 x 7.6 cm, previously 8.5 x 7.3 x 9.4 cm. 2.The metastasis in segment measures 1.4 cm, previously 1.5 cm. 3.A metastatic lymph node in the upper abdomen has resolved. 4.Mild diffuse fatty infiltration of the liver Signed: Geoff Fitzgerald MDReport Verified Date/Time: 01/11/2022 08:29:18 [id number] 09:18:50 Test Item Value Reference Range Interpretation Comments MAGNESIUM (BEAKER) (test code = 1.6 mg/dL 1.6-2.6 627) COMPREHENSIVE METABOLIC [id number] 09:18:45 Test Item Value Reference Range Interpretation Comments TOTAL PROTEIN 7.1 gm/dL 6.0-8.3 (BEAKER) (test code = 770) ALBUMIN (BEAKER) 4.6 g/dL 3.5-5.0 (test code = 1145) ALKALINE PHOSPHATASE 110 U/L 40-150 (BEAKER) (test code = 346) BILIRUBIN TOTAL 0.3 mg/dL 0.2-1.2 (BEAKER) (test code = 377) SODIUM (BEAKER) (test 142 meq/L 136-145 code = 381) POTASSIUM (BEAKER) 4.0 meq/L 3.5-5.1 (test code = 379) CHLORIDE (BEAKER) 108 meq/L 98-107 H (test code = 382) CO2 (BEAKER) (test 29 meq/L 22-29 code = 355) BLOOD UREA NITROGEN 14 mg/dL 7-21 (BEAKER) (test code = 354) CREATININE (BEAKER) 0.62 mg/dL 0.57-1.25 (test code = 358) GLUCOSE RANDOM 94 mg/dL 70-105 (BEAKER) (test code = 652) CALCIUM (BEAKER) 9.2 mg/dL 8.4-10.2 (test code = 697) AST (SGOT) (BEAKER) 20 U/L 5-34 (test code = 353) ALT (SGPT) (BEAKER) 13 U/L 6-55 (test code = 347) EGFR (BEAKER) (test 101 ESTIMATE D GFR IS code = 1092) mL/min/1.73 sq NOT ACCURA TE m CREATININE CLEARANCE IN PREDICTING GLOMERULAR FILTRATION RATE . ESTIMATED GFR I S NOT APPLICABLE FOR DIALYSIS PATIEN TS. CBC W/PLT COUNT & AUTO [id number] 08:59:07 Test Item Value Reference Range Interpretation Comments WHITE BLOOD CELL COUNT (BEAKER) 5.4 K/ L 3.5-10.5 (test code = 775) RED BLOOD CELL COUNT (BEAKER) 4.03 M/ L 3.93-5.22 (test code = 761) HEMOGLOBIN (BEAKER) (test code = 11.3 GM/DL 11.2-15.7 410) HEMATOCRIT (BEAKER) (test code = 35.4 % 34.1-44.9 411) MEAN CORPUSCULAR VOLUME (BEAKER) 87.8 fL 79.4-94.8 (test code = 753) MEAN CORPUSCULAR HEMOGLOBIN 28.0 pg 25.6-32.2 (BEAKER) (test code = 751) MEAN CORPUSCULAR HEMOGLOBIN CONC 31.9 GM/DL 32.2-35.5 L (BEAKER) (test code = 752) RED CELL DISTRIBUTION WIDTH 16.7 % 11.7-14.4 H (BEAKER) (test code = 412) PLATELET COUNT (BEAKER) (test 134 K/CU MM 150-450 L code = 756) MEAN PLATELET VOLUME (BEAKER) 10.4 fL 9.4-12.3 (test code = 754) NEUTROPHILS RELATIVE PERCENT 52 % (BEAKER) (test code = 429) LYMPHOCYTES RELATIVE PERCENT 36 % (BEAKER) (test code = 430) MONOCYTES RELATIVE PERCENT 10 % (BEAKER) (test code = 431) EOSINOPHILS RELATIVE PERCENT 1 % (BEAKER) (test code = 432) BASOPHILS RELATIVE PERCENT 0 % (BEAKER) (test code = 437) NEUTROPHILS ABSOLUTE COUNT 2.82 K/ L 1.56-6.13 (BEAKER) (test code = 670) LYMPHOCYTES ABSOLUTE COUNT 1.92 K/ L 1.18-3.74 (BEAKER) (test code = 414) MONOCYTES ABSOLUTE COUNT (BEAKER) 0.55 K/ L 0.24-0.36 H (test code = 415) EOSINOPHILS ABSOLUTE COUNT 0.06 K/ L 0.04-0.36 (BEAKER) (test code = 416) BASOPHILS ABSOLUTE COUNT (BEAKER) 0.01 K/ L 0.01-0.08 (test code = 417) IMMATURE GRANULOCYTES-RELATIVE 1 % 0-1 PERCENT (BEAKER) (test code = 2801) [id number] 08:53:09 Test Item Value Reference Range Interpretation Comments MAGNESIUM (BEAKER) (test code = 1.7 mg/dL 1.6-2.6 627) COMPREHENSIVE METABOLIC [id number] 08:53:09 Test Item Value Reference Range Interpretation Comments TOTAL PROTEIN 7.3 gm/dL 6.0-8.3 (BEAKER) (test code = 770) ALBUMIN (BEAKER) 4.8 g/dL 3.5-5.0 (test code = 1145) ALKALINE PHOSPHATASE 114 U/L 40-150 (BEAKER) (test code = 346) BILIRUBIN TOTAL 0.3 mg/dL 0.2-1.2 (BEAKER) (test code = 377) SODIUM (BEAKER) (test 141 meq/L 136-145 code = 381) POTASSIUM (BEAKER) 3.6 meq/L 3.5-5.1 (test code = 379) CHLORIDE (BEAKER) 106 meq/L 98-107 (test code = 382) CO2 (BEAKER) (test 30 meq/L 22-29 H code = 355) BLOOD UREA NITROGEN 17 mg/dL 7-21 (BEAKER) (test code = 354) CREATININE (BEAKER) 0.65 mg/dL 0.57-1.25 (test code = 358) GLUCOSE RANDOM 86 mg/dL 70-105 (BEAKER) (test code = 652) CALCIUM (BEAKER) 9.5 mg/dL 8.4-10.2 (test code = 697) AST (SGOT) (BEAKER) 27 U/L 5-34 (test code = 353) ALT (SGPT) (BEAKER) 12 U/L 6-55 (test code = 347) EGFR (BEAKER) (test 96 mL/min/1.73 ESTIMA MANOJ GFR IS code = 1092) sq m NOT ACCURATE CREATININE CLEARANCE IN PREDICTING GLOMERULAR FILTRATION RATE . ESTIMATED GFR I S NOT APPLICABLE FOR DIALYSIS PATIEN TS. CBC W/PLT COUNT & AUTO [id number] 08:31:05 Test Item Value Reference Range Interpretation Comments WHITE BLOOD CELL COUNT (BEAKER) 6.3 K/ L 3.5-10.5 (test code = 775) RED BLOOD CELL COUNT (BEAKER) 4.27 M/ L 3.93-5.22 (test code = 761) HEMOGLOBIN (BEAKER) (test code = 11.9 GM/DL 11.2-15.7 410) HEMATOCRIT (BEAKER) (test code = 37.2 % 34.1-44.9 411) MEAN CORPUSCULAR VOLUME (BEAKER) 87.1 fL 79.4-94.8 (test code = 753) MEAN CORPUSCULAR HEMOGLOBIN 27.9 pg 25.6-32.2 (BEAKER) (test code = 751) MEAN CORPUSCULAR HEMOGLOBIN CONC 32.0 GM/DL 32.2-35.5 L (BEAKER) (test code = 752) RED CELL DISTRIBUTION WIDTH 18.1 % 11.7-14.4 H (BEAKER) (test code = 412) PLATELET COUNT (BEAKER) (test 256 K/CU MM 150-450 code = 756) MEAN PLATELET VOLUME (BEAKER) 10.0 fL 9.0-12.3 (test code = 754) NEUTROPHILS RELATIVE PERCENT 49 % (BEAKER) (test code = 429) LYMPHOCYTES RELATIVE PERCENT 39 % (BEAKER) (test code = 430) MONOCYTES RELATIVE PERCENT 9 % (BEAKER) (test code = 431) EOSINOPHILS RELATIVE PERCENT 1 % (BEAKER) (test code = 432) BASOPHILS RELATIVE PERCENT 0 % (BEAKER) (test code = 437) NEUTROPHILS ABSOLUTE COUNT 3.08 K/ L 1.56-6.13 (BEAKER) (test code = 670) LYMPHOCYTES ABSOLUTE COUNT 2.46 K/ L 1.18-3.74 (BEAKER) (test code = 414) MONOCYTES ABSOLUTE COUNT (BEAKER) 0.58 K/ L 0.24-0.36 H (test code = 415) EOSINOPHILS ABSOLUTE COUNT 0.09 K/ L 0.04-0.36 (BEAKER) (test code = 416) BASOPHILS ABSOLUTE COUNT (BEAKER) 0.01 K/ L 0.01-0.08 (test code = 417) IMMATURE GRANULOCYTES-RELATIVE 1 % 0-1 PERCENT (BEAKER) (test code = 2801) (MANUAL DIFFERENTIAL)2021-12-05 09:13:02 Test Item Value Reference Range Interpretation Comments NEUTROPHILS - REL (DIFF) (BEAKER) 23 % (test code = 1359) LYMPHOCYTES - REL (DIFF) (BEAKER) 66 % (test code = 1360) MONOCYTES - REL (DIFF) (BEAKER) 11 % (test code = 1361) NEUTROPHILS - ABS (DIFF) (BEAKER) 0.69 K/ L 1.80-8.00 L (test code = 1365) LYMPHOCYTES - ABS (DIFF) (BEAKER) 1.98 K/ L 1.48-4.50 (test code = 1366) MONOCYTES - ABS (DIFF) (BEAKER) 0.33 K/ L 0.00-1.30 (test code = 1367) TOTAL COUNTED (BEAKER) (test code = 100 1351) WBC MORPHOLOGY (BEAKER) (test code Normal = 487) PLT MORPHOLOGY (BEAKER) (test code Normal = 486) RBC MORPHOLOGY (BEAKER) (test code Normal = 762) [id number] 08:46:31 Test Item Value Reference Range Interpretation Comments MAGNESIUM (BEAKER) (test code = 1.9 mg/dL 1.6-2.6 627) COMPREHENSIVE METABOLIC [id number] 08:46:26 Test Item Value Reference Range Interpretation Comments TOTAL PROTEIN 7.2 gm/dL 6.0-8.3 (BEAKER) (test code = 770) ALBUMIN (BEAKER) 4.7 g/dL 3.5-5.0 (test code = 1145) ALKALINE PHOSPHATASE 107 U/L 40-150 (BEAKER) (test code = 346) BILIRUBIN TOTAL 0.3 mg/dL 0.2-1.2 (BEAKER) (test code = 377) SODIUM (BEAKER) (test 140 meq/L 136-145 code = 381) POTASSIUM (BEAKER) 3.7 meq/L 3.5-5.1 (test code = 379) CHLORIDE (BEAKER) 106 meq/L 98-107 (test code = 382) CO2 (BEAKER) (test 28 meq/L 22-29 code = 355) BLOOD UREA NITROGEN 14 mg/dL 7-21 (BEAKER) (test code = 354) CREATININE (BEAKER) 0.58 mg/dL 0.57-1.25 (test code = 358) GLUCOSE RANDOM 101 mg/dL 70-105 (BEAKER) (test code = 652) CALCIUM (BEAKER) 9.1 mg/dL 8.4-10.2 (test code = 697) AST (SGOT) (BEAKER) 28 U/L 5-34 (test code = 353) ALT (SGPT) (BEAKER) 19 U/L 6-55 (test code = 347) EGFR (BEAKER) (test 110 ESTIMATE D GFR IS code = 1092) mL/min/1.73 sq NOT ACCURA TE m CREATININE CLEARANCE IN PREDICTING GLOMERULAR FILTRATION RATE . ESTIMATED GFR I S NOT APPLICABLE FOR DIALYSIS PATIEN TS. CBC W/PLT COUNT & AUTO [id number] 08:44:29 Test Item Value Reference Range Interpretation Comments WHITE BLOOD CELL COUNT (BEAKER) 3.0 K/ L 3.5-10.5 L (test code = 775) RED BLOOD CELL COUNT (BEAKER) 4.00 M/ L 3.93-5.22 (test code = 761) HEMOGLOBIN (BEAKER) (test code = 10.9 GM/DL 11.2-15.7 L 410) HEMATOCRIT (BEAKER) (test code = 34.4 % 34.1-44.9 411) MEAN CORPUSCULAR VOLUME (BEAKER) 86.0 fL 79.4-94.8 (test code = 753) MEAN CORPUSCULAR HEMOGLOBIN 27.3 pg 25.6-32.2 (BEAKER) (test code = 751) MEAN CORPUSCULAR HEMOGLOBIN CONC 31.7 GM/DL 32.2-35.5 L (BEAKER) (test code = 752) RED CELL DISTRIBUTION WIDTH 17.5 % 11.7-14.4 H (BEAKER) (test code = 412) PLATELET COUNT (BEAKER) (test 268 K/CU MM 150-450 code = 756) MEAN PLATELET VOLUME (BEAKER) 9.6 fL 9.4-12.3 (test code = 754) [id number] 08:42:02 Test Item Value Reference Range Interpretation Comments MAGNESIUM (BEAKER) (test code = 1.7 mg/dL 1.6-2.6 627) COMPREHENSIVE METABOLIC [id number] 08:41:56 Test Item Value Reference Range Interpretation Comments TOTAL PROTEIN 7.0 gm/dL 6.0-8.3 (BEAKER) (test code = 770) ALBUMIN (BEAKER) 4.6 g/dL 3.5-5.0 (test code = 1145) ALKALINE PHOSPHATASE 97 U/L 40-150 (BEAKER) (test code = 346) BILIRUBIN TOTAL 0.3 mg/dL 0.2-1.2 (BEAKER) (test code = 377) SODIUM (BEAKER) (test 142 meq/L 136-145 code = 381) POTASSIUM (BEAKER) 3.9 meq/L 3.5-5.1 (test code = 379) CHLORIDE (BEAKER) 108 meq/L 98-107 H (test code = 382) CO2 (BEAKER) (test 29 meq/L 22-29 code = 355) BLOOD UREA NITROGEN 13 mg/dL 7-21 (BEAKER) (test code = 354) CREATININE (BEAKER) 0.62 mg/dL 0.57-1.25 (test code = 358) GLUCOSE RANDOM 96 mg/dL 70-105 (BEAKER) (test code = 652) CALCIUM (BEAKER) 8.9 mg/dL 8.4-10.2 (test code = 697) AST (SGOT) (BEAKER) 27 U/L 5-34 (test code = 353) ALT (SGPT) (BEAKER) 11 U/L 6-55 (test code = 347) EGFR (BEAKER) (test 101 ESTIMATE D GFR IS code = 1092) mL/min/1.73 sq NOT ACCURA TE m CREATININE CLEARANCE IN PREDICTING GLOMERULAR FILTRATION RATE . ESTIMATED GFR I S NOT APPLICABLE FOR DIALYSIS PATIEN TS. CBC W/PLT COUNT & AUTO [id number] 08:22:03 Test Item Value Reference Range Interpretation Comments WHITE BLOOD CELL COUNT (BEAKER) 4.8 K/ L 3.5-10.5 (test code = 775) RED BLOOD CELL COUNT (BEAKER) 4.05 M/ L 3.93-5.22 (test code = 761) HEMOGLOBIN (BEAKER) (test code = 11.0 GM/DL 11.2-15.7 L 410) HEMATOCRIT (BEAKER) (test code = 35.3 % 34.1-44.9 411) MEAN CORPUSCULAR VOLUME (BEAKER) 87.2 fL 79.4-94.8 (test code = 753) MEAN CORPUSCULAR HEMOGLOBIN 27.2 pg 25.6-32.2 (BEAKER) (test code = 751) MEAN CORPUSCULAR HEMOGLOBIN CONC 31.2 GM/DL 32.2-35.5 L (BEAKER) (test code = 752) RED CELL DISTRIBUTION WIDTH 18.5 % 11.7-14.4 H (BEAKER) (test code = 412) PLATELET COUNT (BEAKER) (test 206 K/CU MM 150-450 code = 756) MEAN PLATELET VOLUME (BEAKER) 10.0 fL 9.4-12.3 (test code = 754) NEUTROPHILS RELATIVE PERCENT 51 % (BEAKER) (test code = 429) LYMPHOCYTES RELATIVE PERCENT 36 % (BEAKER) (test code = 430) MONOCYTES RELATIVE PERCENT 12 % (BEAKER) (test code = 431) EOSINOPHILS RELATIVE PERCENT 1 % (BEAKER) (test code = 432) BASOPHILS RELATIVE PERCENT 0 % (BEAKER) (test code = 437) NEUTROPHILS ABSOLUTE COUNT 2.43 K/ L 1.56-6.13 (BEAKER) (test code = 670) LYMPHOCYTES ABSOLUTE COUNT 1.71 K/ L 1.18-3.74 (BEAKER) (test code = 414) MONOCYTES ABSOLUTE COUNT (BEAKER) 0.57 K/ L 0.24-0.36 H (test code = 415) EOSINOPHILS ABSOLUTE COUNT 0.04 K/ L 0.04-0.36 (BEAKER) (test code = 416) BASOPHILS ABSOLUTE COUNT (BEAKER) 0.02 K/ L 0.01-0.08 (test code = 417) IMMATURE GRANULOCYTES-RELATIVE 0 % 0-1 PERCENT (BEAKER) (test code = 2801) CT, [id number] 09:13:00Unlisted Reason for Exam - Click Yes and Enter Reason Below->YesUnlisted Reason for Exam->cholangiocarcinomaIs this for enterography?->NoWill this procedure require oral contrast?->Yes [facility] 1970 Sex: FFINAL REPORT CLINICAL HISTORY: Unlisted Reason for ExamCHOLANGIOCARCINOMA FINDINGS: Multiple axial images of the chest, abdomen and pelvis were performed after the uncomplicated administration of IV contrast. Oral contrast was not given. This exam was performed according to our [facility] tmental dose-optimization program, which includes automated exposure control, adjustment of the mA and/or kV according to patient size and/or use of the iterative reconstruction technique. Comparison: 07/28/2021. Chest: Lung parenchyma: No significant findings. No pulmonary mass or suspicious nodule. No consolidation, groundglass opacification or interstitial abnormality. Pleural effusion: None. Pneumothorax: None. Tracheobronchial tree: No significant findings. Pulmonary vasculature: No significant findings. Cardiac contours and great vessels: No significant findings. Mediastinum: No significant findings. Lymph Nodes: Redemonstrated subcentimeter short axis diameter lymph node in the anterior prepericardial space, measuring 7 mm in short axis diameter. Skeleton: No lytic or blastic lesions in the thoracic skeleton. Other:A right IJ chest port is in place Abdomen and pelvis: Liver: Subtle intervaldecrease in the size of an ill-defined hypodense mass in segments 4 and 8 of the liver, measuring lashawn roximately 7.8 x 4.9 cm on today's examination where it previously measured 9.1 x 7.4 cm. An ill-defined hypodense focus in segment 6 of the liver is redemonstrated and measures 1.2 cm, similar to previous. A 0.6 cm hypodense focus in segment 6 of liver is newly identified. Gallbladder and biliary tree: Stable position and appearance of a metallic common bile duct stent extending into the proximal right liver. No biliary ductal dilatation. Spleen: Mild splenomegaly, measuring 12.9 cm in maximum dimension. Adrenal Glands: No significant findings. Kidneys and ureters: No significant findings. Stomachand Duodenum: No significant findings. Pancreas: No significant findings. Bowel: Left colonic diverticulosis without CT evidence for diverticulitis. Appendix: Normal. Bladder: No significant findings. Major vascular structures: No significant findings. Reproductive organs: Previous hysterectomy. Other: Postsurgical changes in the anterior abdominal wall. No free air, fluid or adenopathy in the abdomen or pelvis. Skeleton: No lytic or blastic skeletal lesions in the lumbar spine, pelvis or proximal femurs. IMPRESSION: Subtle interval decrease in the size of an ill-defined hypodense mass in the liver, now measuring approximately 7.8 x 4.9 cm, in keeping with the diagnosis of cholangiocarcinoma. There are 2 ill-defined, indeterminate hypodense foci in segment 6 of the liver measuring 1.2 cm and 0.6 cm, respectively. Additional hepatic malignant lesions are not excluded. Better evaluation with pre and postcontrast liver protocol MRI is recommended. Stable appearance and position of a metallic bile duct stent. No CT evidence of biliary ductal dilatation. No evidence of metastatic disease to the chest. Other findings, as described above. Signed: Madi Terrazas MDReport Verified Date/Time: 209:13:58 CT, CHEST, WITH [id number] 09:13:00Unlisted Reason for Exam - Click Yes and Enter Reason Below->YesUnlisted Reason for Exam->CHOLANGIOCARCINOMA [facility] : 1970 Sex: FFINAL REPORT CLINICAL HISTORY: Unlisted Reason for ExamCHOLANGIOCARCINOMA FINDINGS: Multiple axial images of the chest, abdomen and pelvis were performed after the uncomplicated administration of IV contrast. Oral contrast was not given. This exam was performed according to our [facility] dose-optimization program, which includes automated exposure control, adjustment of the mA and/or kV according to patient size and/or use of the iterative reconstruction technique. Comparison: 07/28/2021. Chest: Lung parenchyma: No significant findings. No pulmonary mass or suspicious nodule. No consolidation, groundglass opacification or interstitial abnormality. Pleural effusion: None. Pneumothorax: None. Tracheobronchial tree: No significant findings. Pulmonary vasculature: No significant findings. Cardiac contours and great vessels: No significant findings. Mediastinum: No significant findings. Lymph Nodes: Redemonstrated subcentimeter short axis diameter lymph node in the anterior prepericardial space, measuring 7 mm in short axis diameter. Skeleton: No lytic or blastic lesions in the thoracic skeleton. Other:A right IJ chest port is in place Abdomen and pelvis: Liver: Subtle intervaldecrease in the size of an ill-defined hypodense mass in segments 4 and 8 of the liver, measuring lashawn roximately 7.8 x 4.9 cm on today's examination where it previously measured 9.1 x 7.4 cm. An ill-defined hypodense focus in segment 6 of the liver is redemonstrated and measures 1.2 cm, similar to previous. A 0.6 cm hypodense focus in segment 6 of liver is newly identified. Gallbladder and biliary tree: Stable position and appearance of a metallic common bile duct stent extending into the proximal right liver. No biliary ductal dilatation. Spleen: Mild splenomegaly, measuring 12.9 cm in maximum dimension. Adrenal Glands: No significant findings. Kidneys and ureters: No significant findings. Stomachand Duodenum: No significant findings. Pancreas: No significant findings. Bowel: Left colonic diverticulosis without CT evidence for diverticulitis. Appendix: Normal. Bladder: No significant findings. Major vascular structures: No significant findings. Reproductive organs: Previous hysterectomy. Other: Postsurgical changes in the anterior abdominal wall. No free air, fluid or adenopathy in the abdomen or pelvis. Skeleton: No lytic or blastic skeletal lesions in the lumbar spine, pelvis or proximal femurs. IMPRESSION: Subtle interval decrease in the size of an ill-defined hypodense mass in the liver, now measuring approximately 7.8 x 4.9 cm, in keeping with the diagnosis of cholangiocarcinoma. There are 2 ill-defined, indeterminate hypodense foci in segment 6 of the liver measuring 1.2 cm and 0.6 cm, respectively. Additional hepatic malignant lesions are not excluded. Better evaluation with pre and postcontrast liver protocol MRI is recommended. Stable appearance and position of a metallic bile duct stent. No CT evidence of biliary ductal dilatation. No evidence of metastatic disease to the chest. Other findings, as described above. Signed: Madi Terrazas MDReport Verified Date/Time: 209:13:58 BONE AND/OR JOINT IMAGING, WHOLE [id number] 16:18:00Unlisted Reason for Exam - Click Yes and Enter Reason Below->YesUnlisted Reason for Exam->[facility]angiocarcinoma [facility] : 1970 Sex: FFINAL REPORT PROCEDURE: BONE SCAN, WHOLE BODY CPT CODE: 20890 INDICATION: Cholangiocarcinoma PROTOCOL: 20.0 mCi of Tc-99m MDP was injected intravenously. Whole body and selected spotimages were obtained approximately 3 hours later. FINDINGS: Tracer activity is mildly increased in the shoulders, hands and wrists, hips, knees, and feet. Distribution within the spine is generally mildly irregular. There is mild focal increase in activity in the posterior aspect of the left eighth rib. IMPRESSION: 1. Compared to the most recent previous study of 06/03/2022, there is no significant interval change.2. Left mid rib abnormality is most suggestive of traumatic etiology.3. Degenerative changes in the spine and peripheral joints. No interval bony images are available for comparison. Signed: Eddie Fan MDReport Verified Date/Time: 11/21/2021 16:18:28 (MANUAL DIFFERENTIAL)2021-11-14 09:04:31 Test Item Value Reference Range Interpretation Comments NEUTROPHILS - REL (DIFF) (BEAKER) 32 % (test code = 1359) LYMPHOCYTES - REL (DIFF) (BEAKER) 56 % (test code = 1360) MONOCYTES - REL (DIFF) (BEAKER) 8 % (test code = 1361) EOSINOPHILS - REL (DIFF) (BEAKER) 2 % (test code = 1362) MYELOCYTES-REL (DIFF) (BEAKER) 2 % 0-0 H (test code = 1594) NEUTROPHILS - ABS (DIFF) (BEAKER) 1.54 K/ L 1.80-8.00 L (test code = 1365) LYMPHOCYTES - ABS (DIFF) (BEAKER) 2.69 K/ L 1.48-4.50 (test code = 1366) MONOCYTES - ABS (DIFF) (BEAKER) 0.38 K/ L 0.00-1.30 (test code = 1367) EOSINOPHILS - ABS (DIFF) (BEAKER) 0.10 K/ L 0.00-0.50 (test code = 1368) MYELOCYTES-ABS (DIFF) (BEAKER) 0.10 K/ L 0.00-0.00 H (test code = 1593) TOTAL COUNTED (BEAKER) (test code = 100 1351) WBC MORPHOLOGY (BEAKER) (test code Normal = 487) PLT MORPHOLOGY (BEAKER) (test code Normal = 486) RBC MORPHOLOGY (BEAKER) (test code Normal = 762) [id number] 08:33:24 Test Item Value Reference Range Interpretation Comments MAGNESIUM (BEAKER) (test code = 1.7 mg/dL 1.6-2.6 627) COMPREHENSIVE METABOLIC [id number] 08:33:19 Test Item Value Reference Range Interpretation Comments TOTAL PROTEIN 7.2 gm/dL 6.0-8.3 (BEAKER) (test code = 770) ALBUMIN (BEAKER) 4.7 g/dL 3.5-5.0 (test code = 1145) ALKALINE PHOSPHATASE 120 U/L 40-150 (BEAKER) (test code = 346) BILIRUBIN TOTAL 0.3 mg/dL 0.2-1.2 (BEAKER) (test code = 377) SODIUM (BEAKER) (test 140 meq/L 136-145 code = 381) POTASSIUM (BEAKER) 4.1 meq/L 3.5-5.1 (test code = 379) CHLORIDE (BEAKER) 107 meq/L 98-107 (test code = 382) CO2 (BEAKER) (test 27 meq/L 22-29 code = 355) BLOOD UREA NITROGEN 20 mg/dL 7-21 (BEAKER) (test code = 354) CREATININE (BEAKER) 0.67 mg/dL 0.57-1.25 (test code = 358) GLUCOSE RANDOM 95 mg/dL 70-105 (BEAKER) (test code = 652) CALCIUM (BEAKER) 9.1 mg/dL 8.4-10.2 (test code = 697) AST (SGOT) (BEAKER) 18 U/L 5-34 (test code = 353) ALT (SGPT) (BEAKER) 17 U/L 6-55 (test code = 347) EGFR (BEAKER) (test 93 mL/min/1.73 ESTIMA MANOJ GFR IS code = 1092) sq m NOT ACCURATE CREATININE CLEARANCE IN PREDICTING GLOMERULAR FILTRATION RATE . ESTIMATED GFR I S NOT APPLICABLE FOR DIALYSIS PATIEN TS. CBC W/PLT COUNT & AUTO [id number] 08:20:13 Test Item Value Reference Range Interpretation Comments WHITE BLOOD CELL COUNT (BEAKER) 4.8 K/ L 3.5-10.5 (test code = 775) RED BLOOD CELL COUNT (BEAKER) 4.09 M/ L 3.93-5.22 (test code = 761) HEMOGLOBIN (BEAKER) (test code = 11.2 GM/DL 11.2-15.7 410) HEMATOCRIT (BEAKER) (test code = 35.0 % 34.1-44.9 411) MEAN CORPUSCULAR VOLUME (BEAKER) 85.6 fL 79.4-94.8 (test code = 753) MEAN CORPUSCULAR HEMOGLOBIN 27.4 pg 25.6-32.2 (BEAKER) (test code = 751) MEAN CORPUSCULAR HEMOGLOBIN CONC 32.0 GM/DL 32.2-35.5 L (BEAKER) (test code = 752) RED CELL DISTRIBUTION WIDTH 16.6 % 11.7-14.4 H (BEAKER) (test code = 412) PLATELET COUNT (BEAKER) (test 321 K/CU MM 150-450 code = 756) MEAN PLATELET VOLUME (BEAKER) 8.6 fL 9.4-12.3 L (test code = 754) ANG, TUNNEL CATH CENTRAL INS W/PORT [id number] 14:46:00Reason for Exam:- >C22.1 CHOLANGIOCARC [facility] : 1970 Sex: FFINAL REPORT Exam: Chest port insertion Clinical History: Cholangiocarcinoma Consent: Benefits and risks were explained to the patient who gave consent to the procedure. Complication: None immediate. Sedation: The procedure was performed with conscious sedation. Continuous cardiorespiratory monitoring was performed by a registered nurse throughout the procedure. The total sedation time was 26 minutes. Total fluoro time: 0.7 minutes Total images 1 Medication: Versed 2 mg IV, fentanyl 100 mcg IV, Ancef 1 gram IV Procedure: Sterile barrier technique was followed including cap, mask,sterile gown, sterile gloves, sterile sheet, hand hygiene and 2% chlorhexidine for cutaneous antiseps is. The right chest and neck were prepped and draped in usual sterile fashion. 2% lidocaine was usedas local anesthetic. The right internal jugular vein, which was patent, was accessed under ultrasound guidance. A hardcopy of the ultrasound image was obtained. Linear incision was made in the right upper chest followed by creation of a subcutaneous pocket. It was irrigated with antibiotic solution. Asubcutaneous tunnel was created by blunt dissection. The chest port catheter was pass through the subcutaneous tunnel and advanced under fluoroscopic guidance to the caval atrial junction. It was cut to appropriate length and connected to the reservoir. The reservoir was placed within the subcutaneous pocket and anchored with 2-0 Prolene. It flushed and aspirated easily and was heparinized. The incision was closed using 3-0 Vicryl in subcuticular fashion. The patient tolerated the procedure well without any adverse reactions. She left the department in stable condition. Impression: Right internal jugular power injectable chest port insertion as described. The tip of the catheter terminates at the cavoatrial junction. Signed: [facility]new [facility] Verified Date/Time: 08/04/2021 14:46:32 ReadingLocation: [facility] Radiology Reading Room BONE AND/OR JOINT IMAGING, WHOLE [id number] 14:18:00Unlisted Reason for Exam - Click Yes and Enter Reason Below->YesUnlisted Reason for Exam->[facility]angiocarcinoma [facility] : 1970 Sex: FFINAL REPORT PROCEDURE: BONE SCAN, WHOLE BODY CPT CODE: 19731 INDICATION: Cholangiocarcinoma PROTOCOL: 21.7 mCi of Tc-99m MDP was injected intravenously. Whole body and selected spot images were obtained approximately 3 hours later. FINDINGS: There is unchanged increased tracer activity in the skull and right axilla. There is also unchanged focal increase in tracer activity in theposterior left seventh rib. Tracer activity is diffusely increased in the sternomanubrial joint, spine, elbows, SI joints, knees, and feet. IMPRESSION:1.No pattern of metastatic disease.2.Degenerative changes of the spine and peripheral joints3.Unchanged increased activity in the posterior left seventh rib most likely represents muscle insertion site.4.Stable skull hyperostosis. Images for comparison/correlation were whole-body bone scan from 06/10/2021. Signed: Skyla Angelo Verified Date/Time: 08/04/2021 14:18:58 Reading Location: [address] [address] Reading Room Prothrombin time/[id number] 09:52:13 Test Item Value Reference Interpretation Comments Range Protime (test code = 12.7 See_Comment [Autom ated 5902-2) message] The system which generated this result transmitted reference range : 11.8 - 14.4 seconds. The reference range was not used to interpret this result as normal/abnormal . INR (test code = 1.00 1.20-1.50 L 6301-6) SOPHIA (test code = RECOMMENDED SOPHIA) COUMADIN/WARFARIN INR THERAPY RANGESSTANDARD DOSE: 2.0 - 3.0 Includes: PROPHYLAXIS for venous thrombosis, systemic embolization; TREATMENT for venous thrombosis and/or pulmonary embolus.HIGH RISK: Target INR is 2.5-3.5 for patients with mechanical heart valves. Lab Interpretation Abnormal (test code = 79053-8) [facility]/[id number] 09:52:13 Test Item Value Reference Interpretation Comments Range Protime (test code = 12.7 See_Comment [Autom ated 5902-2) message] The system which generated this result transmitted reference range : 11.8 - 14.4 seconds. The reference range was not used to interpret this result as normal/abnormal . INR (test code = 1.00 1.20-1.50 L 6301-6) SOPHIA (test code = RECOMMENDED SOPHIA) COUMADIN/WARFARIN INR THERAPY RANGESSTANDARD DOSE: 2.0 - 3.0 Includes: PROPHYLAXIS for venous thrombosis, systemic embolization; TREATMENT for venous thrombosis and/or pulmonary embolus.HIGH RISK: Target INR is 2.5-3.5 for patients with mechanical heart valves. Lab Interpretation Abnormal (test code = 62078-1) [facility] time/[id number] 09:52:13 Test Item Value Reference Interpretation Comments Range Protime (test code = 12.7 See_Comment [Autom ated 5902-2) message] The system which generated this result transmitted reference range : 11.8 - 14.4 seconds. The reference range was not used to interpret this result as normal/abnormal . INR (test code = 1.00 1.20-1.50 L 6301-6) SOPHIA (test code = RECOMMENDED SOPHIA) COUMADIN/WARFARIN INR THERAPY RANGESSTANDARD DOSE: 2.0 - 3.0 Includes: PROPHYLAXIS for venous thrombosis, systemic embolization; TREATMENT for venous thrombosis and/or pulmonary embolus.HIGH RISK: Target INR is 2.5-3.5 for patients with mechanical heart valves. Lab Interpretation Abnormal (test code = 35717-9) [facility] time/[id number] 09:52:13 Test Item Value Reference Interpretation Comments Range Protime (test code = 12.7 See_Comment [Autom ated 5902-2) message] The system which generated this result transmitted reference range : 11.8 - 14.4 seconds. The reference range was not used to interpret this result as normal/abnormal . INR (test code = 1.00 1.20-1.50 L 6301-6) SOPHIA (test code = RECOMMENDED SOPHIA) COUMADIN/WARFARIN INR THERAPY RANGESSTANDARD DOSE: 2.0 - 3.0 Includes: PROPHYLAXIS for venous thrombosis, systemic embolization; TREATMENT for venous thrombosis and/or pulmonary embolus.HIGH RISK: Target INR is 2.5-3.5 for patients with mechanical heart valves. Lab Interpretation Abnormal (test code = 73971-4) [facility] time/[id number] 09:52:13 Test Item Value Reference Interpretation Comments Range Protime (test code = 12.7 See_Comment [Autom ated 5902-2) message] The system which generated this result transmitted reference range : 11.8 - 14.4 seconds. The reference range was not used to interpret this result as normal/abnormal . INR (test code = 1.00 1.20-1.50 L 6301-6) SOPHIA (test code = RECOMMENDED SOPHIA) COUMADIN/WARFARIN INR THERAPY RANGESSTANDARD DOSE: 2.0 - 3.0 Includes: PROPHYLAXIS for venous thrombosis, systemic embolization; TREATMENT for venous thrombosis and/or pulmonary embolus.HIGH RISK: Target INR is 2.5-3.5 for patients with mechanical heart valves. Lab Interpretation Abnormal (test code = 03310-0) [facility][id number] 09:52:13 Test Item Value Reference Interpretation Comments Range Protime (test code = 12.7 See_Comment [Autom ated 5902-2) message] The system which generated this result transmitted reference range : 11.8 - 14.4 seconds. The reference range was not used to interpret this result as normal/abnormal . INR (test code = 1.00 1.20-1.50 L 6301-6) SOPHIA (test code = RECOMMENDED SOPHIA) COUMADIN/WARFARIN INR THERAPY RANGESSTANDARD DOSE: 2.0 - 3.0 Includes: PROPHYLAXIS for venous thrombosis, systemic embolization; TREATMENT for venous thrombosis and/or pulmonary embolus.HIGH RISK: Target INR is 2.5-3.5 for patients with mechanical heart valves. Lab Interpretation Abnormal (test code = 39492-2) [facility]/[id number] 09:52:13 Test Item Value Reference Interpretation Comments Range Protime (test code = 12.7 See_Comment [Autom ated 5902-2) message] The system which generated this result transmitted reference range : 11.8 - 14.4 seconds. The reference range was not used to interpret this result as normal/abnormal . INR (test code = 1.00 1.20-1.50 L 6301-6) SOPHIA (test code = RECOMMENDED SOPHIA) COUMADIN/WARFARIN INR THERAPY RANGESSTANDARD DOSE: 2.0 - 3.0 Includes: PROPHYLAXIS for venous thrombosis, systemic embolization; TREATMENT for venous thrombosis and/or pulmonary embolus.HIGH RISK: Target INR is 2.5-3.5 for patients with mechanical heart valves. Lab Interpretation Abnormal (test code = 46652-5) [facility]/[id number] 09:52:13 Test Item Value Reference Interpretation Comments Range Protime (test code = 12.7 See_Comment [Autom ated 5902-2) message] The system which generated this result transmitted reference range : 11.8 - 14.4 seconds. The reference range was not used to interpret this result as normal/abnormal . INR (test code = 1.00 1.20-1.50 L 6301-6) SOPHIA (test code = RECOMMENDED SOPHIA) COUMADIN/WARFARIN INR THERAPY RANGESSTANDARD DOSE: 2.0 - 3.0 Includes: PROPHYLAXIS for venous thrombosis, systemic embolization; TREATMENT for venous thrombosis and/or pulmonary embolus.HIGH RISK: Target INR is 2.5-3.5 for patients with mechanical heart valves. Lab Interpretation Abnormal (test code = 60598-8) [facility]/[id number] 09:52:13 Test Item Value Reference Interpretation Comments Range Protime (test code = 12.7 See_Comment [Autom ated 5902-2) message] The system which generated this result transmitted reference range : 11.8 - 14.4 seconds. The reference range was not used to interpret this result as normal/abnormal . INR (test code = 1.00 1.20-1.50 L 6301-6) SOPHIA (test code = RECOMMENDED SOPHIA) COUMADIN/WARFARIN INR THERAPY RANGESSTANDARD DOSE: 2.0 - 3.0 Includes: PROPHYLAXIS for venous thrombosis, systemic embolization; TREATMENT for venous thrombosis and/or pulmonary embolus.HIGH RISK: Target INR is 2.5-3.5 for patients with mechanical heart valves. Lab Interpretation Abnormal (test code = 31595-3) [facility]/[id number] 09:52:13 Test Item Value Reference Interpretation Comments Range Protime (test code = 12.7 See_Comment [Autom ated 5902-2) message] The system which generated this result transmitted reference range : 11.8 - 14.4 seconds. The reference range was not used to interpret this result as normal/abnormal . INR (test code = 1.00 1.20-1.50 L 6301-6) SOPHIA (test code = RECOMMENDED SOPHIA) COUMADIN/WARFARIN INR THERAPY RANGESSTANDARD DOSE: 2.0 - 3.0 Includes: PROPHYLAXIS for venous thrombosis, systemic embolization; TREATMENT for venous thrombosis and/or pulmonary embolus.HIGH RISK: Target INR is 2.5-3.5 for patients with mechanical heart valves. Lab Interpretation Abnormal (test code = 28867-0) [facility]/[id number] 09:52:13 Test Item Value Reference Interpretation Comments Range Protime (test code = 12.7 See_Comment [Autom ated 5902-2) message] The system which generated this result transmitted reference range : 11.8 - 14.4 seconds. The reference range was not used to interpret this result as normal/abnormal . INR (test code = 1.00 1.20-1.50 L 6301-6) SOPHIA (test code = RECOMMENDED SOPHIA) COUMADIN/WARFARIN INR THERAPY RANGESSTANDARD DOSE: 2.0 - 3.0 Includes: PROPHYLAXIS for venous thrombosis, systemic embolization; TREATMENT for venous thrombosis and/or pulmonary embolus.HIGH RISK: Target INR is 2.5-3.5 for patients with mechanical heart valves. Lab Interpretation Abnormal (test code = 10104-6) [facility]/[id number] 09:52:13 Test Item Value Reference Interpretation Comments Range Protime (test code = 12.7 See_Comment [Autom ated 5902-2) message] The system which generated this result transmitted reference range : 11.8 - 14.4 seconds. The reference range was not used to interpret this result as normal/abnormal . INR (test code = 1.00 1.20-1.50 L 6301-6) SOPHIA (test code = RECOMMENDED SOPHIA) COUMADIN/WARFARIN INR THERAPY RANGESSTANDARD DOSE: 2.0 - 3.0 Includes: PROPHYLAXIS for venous thrombosis, systemic embolization; TREATMENT for venous thrombosis and/or pulmonary embolus.HIGH RISK: Target INR is 2.5-3.5 for patients with mechanical heart valves. Lab Interpretation Abnormal (test code = 54225-2) [facility]/[id number] 09:52:13 Test Item Value Reference Interpretation Comments Range Protime (test code = 12.7 See_Comment [Autom ated 5902-2) message] The system which generated this result transmitted reference range : 11.8 - 14.4 seconds. The reference range was not used to interpret this result as normal/abnormal . INR (test code = 1.00 1.20-1.50 L 6301-6) SOPHIA (test code = RECOMMENDED SOPHIA) COUMADIN/WARFARIN INR THERAPY RANGESSTANDARD DOSE: 2.0 - 3.0 Includes: PROPHYLAXIS for venous thrombosis, systemic embolization; TREATMENT for venous thrombosis and/or pulmonary embolus.HIGH RISK: Target INR is 2.5-3.5 for patients with mechanical heart valves. Lab Interpretation Abnormal (test code = 72166-5) [facility]PROTHR[facility] TIME/[id number] 09:52:13 Test Item Value Reference Range Interpretation Comments PROTIME (BEAKER) (test code = 12.7 seconds 11.8-14.4 759) INR (BEAKER) (test code = 370) 1.00 1.20-1.50 L RECOMMENDED COUMADIN/WARFARIN INR THERAPY RANGESSTANDARD DOSE: 2.0 - 3.0 Includes: PROPHYLAXIS for venous thrombosis, systemic embolization; TREATMENT for venous thrombosis and/or pulmonary embolus.HIGH RISK: Target INR is 2.5-3.5 for patients with mechanical heart valves.Platelet [id number] 09:49:17 Test Item Value Reference Range Interpretation Comments Platelets (test code = 299 See_Comment [Aut omated message] 417-3) The system [employer] generated this result transmitted ref erence range: 150 - 43 0 K/CU MM. The referen ce range was not u sed to interpret this result as normal/abnor mal. Lab Interpretation (test Normal code = 72491-9) [id number] 09:[facility]17 Test Item Value Reference Range Interpretation Comments Platelets (test code = 299 See_Comment [Aut omated message] 047-3) The system [employer] generated this result transmitted ref erence range: 150 - 43 0 K/CU MM. The referen ce range was not u sed to interpret this result as normal/abnor mal. Lab Interpretation (test Normal code = 96711-7) [facility] [id number] 09:49:17 Test Item Value Reference Range Interpretation Comments Platelets (test code = 299 See_Comment [Aut omated message] 777-3) The system [employer] generated this result transmitted ref erence range: 150 - 43 0 K/CU MM. The referen ce range was not u sed to interpret this result as normal/abnor mal. Lab Interpretation (test Normal code = 61063-1) [facility] [id number] 09:49:17 Test Item Value Reference Range Interpretation Comments Platelets (test code = 299 See_Comment [Aut omated message] 997-3) The system [employer] generated this result transmitted ref erence range: 150 - 43 0 K/CU MM. The referen ce range was not u sed to interpret this result as normal/abnor mal. Lab Interpretation (test Normal code = 03035-3) [facility] [id number] 09:49:17 Test Item Value Reference Range Interpretation Comments Platelets (test code = 299 See_Comment [Aut omated message] 777-3) The system [employer] generated this result transmitted ref erence range: 150 - 43 0 K/CU MM. The referen ce range was not u sed to interpret this result as normal/abnor mal. Lab Interpretation (test Normal code = 39886-3) [facility] [id number] 09:49:17 Test Item Value Reference Range Interpretation Comments Platelets (test code = 299 See_Comment [Aut omated message] 777-3) The system [employer] generated this result transmitted ref erence range: 150 - 43 0 K/CU MM. The referen ce range was not u sed to interpret this result as normal/abnor mal. Lab Interpretation (test Normal code = 39234-5) [facility] [id number] 09:49:17 Test Item Value Reference Range Interpretation Comments Platelets (test code = 299 See_Comment [Aut omated message] 777-3) The system [employer] generated this result transmitted ref erence range: 150 - 43 0 K/CU MM. The referen ce range was not u sed to interpret this result as normal/abnor mal. Lab Interpretation (test Normal code = 24042-8) [facility] [id number] 09:49:17 Test Item Value Reference Range Interpretation Comments Platelets (test code = 299 See_Comment [Aut omated message] 777-3) The system [employer] generated this result transmitted ref erence range: 150 - 43 0 K/CU MM. The referen ce range was not u sed to interpret this result as normal/abnor mal. Lab Interpretation (test Normal code = 61827-7) [facility] [id number] 09:49:17 Test Item Value Reference Range Interpretation Comments Platelets (test code = 299 See_Comment [Aut omated message] 777-3) The system [employer] generated this result transmitted ref erence range: 150 - 43 0 K/CU MM. The referen ce range was not u sed to interpret this result as normal/abnor mal. Lab Interpretation (test Normal code = 38737-5) [facility] [id number] 09:49:17 Test Item Value Reference Range Interpretation Comments Platelets (test code = 299 See_Comment [Aut omated message] 777-3) The system [employer] generated this result transmitted ref erence range: 150 - 43 0 K/CU MM. The referen ce range was not u sed to interpret this result as normal/abnor mal. Lab Interpretation (test Normal code = 82386-8) [facility] [id number] 09:49:17 Test Item Value Reference Range Interpretation Comments Platelets (test code = 299 See_Comment [Aut omated message] 777-3) The system [employer] generated this result transmitted ref erence range: 150 - 43 0 K/CU MM. The referen ce range was not u sed to interpret this result as normal/abnor mal. Lab Interpretation (test Normal code = 54510-7) [facility] [id number] 09:49:17 Test Item Value Reference Range Interpretation Comments Platelets (test code = 299 See_Comment [Aut omated message] 777-3) The system [employer] generated this result transmitted ref erence range: 150 - 43 0 K/CU MM. The referen ce range was not u sed to interpret this result as normal/abnor mal. Lab Interpretation (test Normal code = 84515-0) [facility] [id number] 09:49:17 Test Item Value Reference Range Interpretation Comments Platelets (test code = 299 See_Comment [Aut omated message] 777-3) The system [employer] generated this result transmitted ref erence range: 150 - 43 0 K/CU MM. The referen ce range was not u sed to interpret this result as normal/abnor mal. Lab Interpretation (test Normal code = 16857-2) [facility] [id number] 09:49:17 Test Item Value Reference Range Interpretation Comments PLATELET COUNT (BEAKER) (test 299 K/CU MM 150-430 code = 756) CANCER ANTIGEN [id number] 12:11:56 Test Item Value Reference Range Interpretation Comments CA 19-9 (test 20 U/ML <35 NOTE: Methodo logy is Jakub Jose Rafael code = Electrochemilum inescence 56211-7) Immunoassay (EC LIZY). Values obtained with d ifferent assays/manufact urers cannot be used interchang eably. Results should not be u sed as sole basis to establish th e presence or absence of porfirio gnancy. Unless Otherwise Indic ated, All Testing Performed At: [facility], [address] [place] [address] 4 Lace Pinner: Beny Mckeon M.D. CLIA Number [id number] Cap Accreditation [place] o. [id number] [facility]PRE[facility] METABOL[facility] [id number] 18:31:38 Test Item Value Reference Range Interpretation Comments GLUCOSE (test code = See_Comment H [Autom ated message] 2345-7) The system [employer] generated this result transmitted ref erence range: 70 - 99 MG/DL. The reference r rizwana was not used to interpret this result as normal/abnor mal. BLOOD UREA NITROGEN See_Comment [Automa manoj message] (test code = 3091-6) The s tem which generated this result transmitted ref erence range: 6 - 20 M G/DL. The reference r rizwana was not used to interpret this result as normal/abnor mal. CREATININE (test code = See_Comment L [Au tomated message] 6480-0) The system [employer] generated this result transmitted ref erence range: 0.6 - 1. 3 MG/DL. The refe rence range was not u sed to interpret this result as normal/abnor mal. EGFR (test code = See_Comment [Automate d message] 79044-6) The system [employer] generated this result transmitted ref erence range: >60 ML/MIN/1.73. Th e reference range was not used to int erpret this result as normal/abnormal . BUN/CREAT RATIO (test See_Comment [Auto mated message] code = 3097-3) The system [employer] generated this result transmitted ref erence range: 6 - 28 R ATIO. The reference r rizwana was not used to interpret this result as normal/abnor mal. SODIUM (test code = See_Comment [Automa manoj message] 6711-2) The system [employer] generated this result transmitted ref erence range: 133 - 14 6 MEQ/L. The refe rence range was not u sed to interpret this result as normal/abnor mal. POTASSIUM (test code = See_Comment [Aut omated message] 2823-3) The system [employer] generated this result transmitted ref erence range: 3.5 - 5. 4 MEQ/L. The refe rence range was not u sed to interpret this result as normal/abnor mal. CHLORIDE (test code = See_Comment L [Auto mated message] 5245-0) The system [facility] generated this result transmitted ref erence range: 100 - 11 2 MEQ/L. The refe rence range was not u sed to interpret this result as normal/abnor mal. CO2 (test code = See_Comment H [Automated message] 1962-8) The system [facility] generated this result transmitted ref erence range: 21 - 30 MEQ/L. The reference r rizwana was not used to interpret this result as normal/abnor mal. CALCIUM (test code = See_Comment [Autom ated message] 39859-9) The system [employer] generated this result transmitted ref erence range: 8.5 - 10 .5 MG/DL. The refe rence range was not u sed to interpret this result as normal/abnor mal. PROTEIN TOTAL (test See_Comment [Automa manoj message] code = 2885-2) The system [facility] generated this result transmitted ref erence range: 6.1 - 8. 1 G/DL. The reference r rizwana was not used to interpret this result as normal/abnor mal. ALBUMIN (test code = See_Comment [Autom ated message] 37767-4) The system [facility] [employer] generated this result transmitted ref erence range: 3.4 - 4. 8 G/DL. The reference r rizwana was not used to interpret this result as normal/abnor mal. GLOBULINS, SERUM, TOTAL See_Comment [Au tomated message] (test code = 74119-0) The sy stem which generated this result transmitted ref erence range: 1.9 - 3. 7 G/DL. The reference r rizwana was not used to interpret this result as normal/abnor mal. A/G RATIO (test code = See_Comment [Aut omated message] 4089-0) The system [employer] generated this result transmitted ref erence range: 1.0 - 2. 6 RATIO. The refe rence range was not u sed to interpret this result as normal/abnor mal. BILIRUBIN TOTAL (test See_Comment [Auto mated message] code = 1974-) The system wh ich generated this result transmitted ref erence range: <=1.2 MG /DL. The reference r rizwana was not used to interpret this result as normal/abnor mal. ALKALINE PHOSPHATASE 141 U/L 30-132 H (test code = 6768-6) AST (SGOT) (test code = 41 U/L 7-56 192-8) ALT (SGPT) (test code = 23 U/L 3-47 MIN TING PERFORMED AT 1744-2) [facility] [place] [place] [address] CLIA NO. [id number] Unle ss Otherwise Indic ated, All Testing Per formed At: [facility], [address] [place] [address] Laborator y Director: Beny Mckeon M.D. CLIA Number [id number] Cap Accreditation N o. [id number] Lab Interpretation Abnormal (test code = 10678-0) [facility] W/AUTO DIFF WITH [id number] 17:56:55 Test Item Value Reference Range Interpretation Comments WHITE BLOOD CELL COUNT See_Comment [Aut omated message] (test code = 92047-3) The sy stem which generated this result transmitted ref erence range: 3.5 - 11 .0 K/UL. The refer ence range was not u sed to interpret this result as normal/abnor mal. RED BLOOD CELL COUNT See_Comment [Autom ated message] (test code = 64322-2) The sy stem which generated this result transmitted ref erence range: 3.80 - 5 .40 M/UL. The refer ence range was not u sed to interpret this result as normal/abnor mal. HEMOGLOBIN (test code = See_Comment L [Au tomated message] 718-7) The system ic h generated this result transmitted ref erence range: 11.5 - 1 5.5 G/DL. The refer ence range was not u sed to interpret this result as normal/abnor mal. HEMATOCRIT (test code = 35.0 % 34.0-45.0 09516-8) MEAN CORPUSCULAR VOLUME 84.1 fL 80.0-99.0 (test code = 85868-4) MEAN CORPUSCULAR 27.4 PG 25.0-33.0 HEMOGLOBIN (test code = 99659-5) MEAN CORPUSCULAR See_Comment [Automated message] HEMOGLOBIN CONC (test The sy stem which code = 98156-3) generated th is result transmitted ref erence range: 31.0 - 3 6.0 G/DL. The refer ence range was not u sed to interpret this result as normal/abnor mal. RED CELL DISTRIBUTION 15.1 % 11.5-15.0 H WIDTH (test code = 31621-8) NEUTROPHILS % (test code 66 % = 57934-2) LYMPHOCYTES % (test code 25 % = 76368-2) MONOCYTES % (test code = 7 % 99392-8) EOSINOPHILS % (test code 2 % = 79427-5) BASOPHILS % (test code = 0 % 74897-0) PLATELET COUNT (test See_Comment TESTIN G PERFORMED AT code = 30420-3) [facility], [place] [place] [address] CLIA NO. [id number] [Aut omated message] The sy stem which generated this result transmit manoj reference range : 130 - 400 K/UL. The reference range was not used to int erpret this result as normal/abnormal . NEUTROPHILS ABSOLUTE See_Comment [Autom ated message] COUNT (test code = The syste m which 23606-9) generated this result transmitted ref erence range: 1.50 - 7 .50 K/UL. The refer ence range was not u sed to interpret this result as normal/abnor mal. LYMPHOCYTES ABSOLUTE See_Comment [Autom ated message] COUNT (test code = The syste m which 71594-8) generated this result transmitted ref erence range: 1.00 - 4 .00 K/UL. The refer ence range was not u sed to interpret this result as normal/abnor mal. MONOCYTES ABSOLUTE COUNT See_Comment [A utomated message] (test code = 84545-4) The sy stem which generated this result transmitted ref erence range: 0.20 - 1 .00 K/UL. The refer ence range was not u sed to interpret this result as normal/abnor mal. BASOPHILS ABSOLUTE COUNT See_Comment U nless Otherwise (test code = 15771-2) Indica manoj, All Testing Perform ed At: [facility], [address] [facility], [place] [address] Laborator y Director: Beny Mckeon M.D. CLIA Number [id number] Cap Accreditation N o. [id number] [Autom ated message] The sy stem which generated this result transmit manoj reference range : 0.00 - 0.20 K/UL. Th e reference range was not used to int erpret this result as normal/abnormal . Lab Interpretation (test Abnormal code = 53352-1) [facility], [id number] 17:48:00Unlisted Reason for Exam - Click Yes and Enter Reason Below->YesUnlisted Reason for Exam->Chola ngiocarcinomaIs this for enterography?->NoWill this procedure require oral contrast?->NoL[facility] : 1970 Sex: FFINAL REPORT CT, ABDOMEN \\T\\ PELVIS, WITHOUT AND WITH IV CONTRAST, CT, CHEST, WITH IV CONTRAST INDICATION: Unlisted Reason for ExamCholangiocarcinoma COMPARISON: CT abdomen and pelvis 06/23/2021. CT chest 06/09/2021 TECHNIQUE: CT chest with IV contrast. CT abdomen pelvis without and with IV contrast, liver mass protocol. Coronal and sagittal reformats were provided.Oral Contrast: No T his exam was performed according to our departmental dose optimization program which includes automated exposure control, adjustment of the mA and/or kV according to patient size and/or use of iterative reconstructive technique. FINDINGS: CHEST:Lungs: Unremarkable. This suggests pulmonary nodules or ma sses.Lymph nodes and Mediastinum: Nonspecific subcentimeter lower mediastinal lymph nodes, adjacent to the distal esophagus up to 0.7 cm short axis and in the anterior pericardium up to 0.8 cm short axis, similar to prior exam 06/09/2021.Pleura: Unremarkable.Cardiovascular: Mild atherosclerotic calcifi cations of the coronary arteries.Other: Unremarkable. ABDOMEN/PELVIS: Liver: A hypoenhancing 9.1 x 7.4 cm mass predominantly in segments 4 and 8, no convincing change from 06/23/2021 given differences intechnique, heterogeneous, greatest enhancement on the delayed phase. A 1.2 cm hypodensity in segment6, also appears to slightly enhance on the delayed phase.Gallbladder and bile ducts: A metallic intra and extrahepatic biliary ductal stent, mild biliary radicals in the left hepatic lobe peripheral tothe mass and otherwise no significant biliary ductal dilation. No pneumobilia.Spleen, pancreas, adrenals: Mild splenomegaly adrenal glands and pancreas are unremarkable.Kidneys and ureters: Unremarkable.Bowel: Predominantly left sided colonic diverticulosis without associated colonic wall thickening or surrounding stranding. Small hiatal hernia.Bladder and reproductive organs: Surgically absent uterus. No adnexal masses.Lymph nodes: A 1.1 cm short axis lymph node adjacent to the right diaphragmatic radha is mildly suspicious, unchanged from 06/23/2021.Peritoneum: Unremarkable.Vessels: Patent main portal vein. Mild atherosclerotic disease..Abdominal wall: Postsurgical changes in the anterior abdominalwall. MUSCULOSKELETAL:Unremarkable. IMPRESSION: CT chest with IV contrast. CT abdomen and pelvis without and with IV contrast. 1.No convincing change in the hypoenhancing 9.1 cm hepatic mass compared with CT abdomen pelvis 06/23/2021, concerning for cholangiocarcinoma. 2.An additional 1.2 cm segment 6 hepatic lesion is unchanged from 06/23/2021, concerning for another focus of cholangiocarcinoma. Would be better evaluated with MRI. 3.A few mildly dilated bile ducts peripheral to the mass in the left hepatic lobe, a metallic bile duct stent, and otherwise no significant biliary ductal dilation. 4.A few n onspecific borderline enlarged lymph nodes in the upper retroperitoneum and lower mediastinum as described above which are unchanged. 5.Left colonic diverticulosis. Signed: Joni Chi VerifiedDate/Time: 07/30/2021 17:48:07 Reading Location: [facility] Diagnostic Imaging Reading Room - [facility] 1.[address], CHEST, WITH IV [id number] 17:48:00Unlisted Reason for Exam - Click Yes and Enter Reason Below->YesUnlisted Reason for Exam->[facility]angi[facility] : 1970 Sex: FFINAL REPORT CT, ABDOMEN \\T\\ PELVIS, WITHOUT AND WITH IV CONTRAST, CT, CHEST, WITH IV CONTRAST INDICATION: Unlisted Reason for ExamCholangiocarcinoma COMPARISON: CT abdomen and pelvis 06/23/2021. CT chest 06/09/2021 TECHNIQUE: CT chest with IV contrast. CT abdomen pelvis without and with IV contrast, liver mass protocol. Coronal and sagittal reformats were provided.Oral Contrast: No T his exam was performed according to our departmental dose optimization program which includes automated exposure control, adjustment of the mA and/or kV according to patient size and/or use of iterative reconstructive technique. FINDINGS: CHEST:Lungs: Unremarkable. This suggests pulmonary nodules or ma sses.Lymph nodes and Mediastinum: Nonspecific subcentimeter lower mediastinal lymph nodes, adjacent to the distal esophagus up to 0.7 cm short axis and in the anterior pericardium up to 0.8 cm short axis, similar to prior exam 06/09/2021.Pleura: Unremarkable.Cardiovascular: Mild atherosclerotic calcifi cations of the coronary arteries.Other: Unremarkable. ABDOMEN/PELVIS: Liver: A hypoenhancing 9.1 x 7.4 cm mass predominantly in segments 4 and 8, no convincing change from 06/23/2021 given differences intechnique, heterogeneous, greatest enhancement on the delayed phase. A 1.2 cm hypodensity in segment6, also appears to slightly enhance on the delayed phase.Gallbladder and bile ducts: A metallic intra and extrahepatic biliary ductal stent, mild biliary radicals in the left hepatic lobe peripheral tothe mass and otherwise no significant biliary ductal dilation. No pneumobilia.Spleen, pancreas, adrenals: Mild splenomegaly adrenal glands and pancreas are unremarkable.Kidneys and ureters: Unremarkable.Bowel: Predominantly left sided colonic diverticulosis without associated colonic wall thickening or surrounding stranding. Small hiatal hernia.Bladder and reproductive organs: Surgically absent uterus. No adnexal masses.Lymph nodes: A 1.1 cm short axis lymph node adjacent to the right diaphragmatic radha is mildly suspicious, unchanged from 06/23/2021.Peritoneum: Unremarkable.Vessels: Patent main portal vein. Mild atherosclerotic disease..Abdominal wall: Postsurgical changes in the anterior abdominalwall. MUSCULOSKELETAL:Unremarkable. IMPRESSION: CT chest with IV contrast. CT abdomen and pelvis without and with IV contrast. 1.No convincing change in the hypoenhancing 9.1 cm hepatic mass compared with CT abdomen pelvis 06/23/2021, concerning for cholangiocarcinoma. 2.An additional 1.2 cm segment 6 hepatic lesion is unchanged from 06/23/2021, concerning for another focus of cholangiocarcinoma. Would be better evaluated with MRI. 3.A few mildly dilated bile ducts peripheral to the mass in the left hepatic lobe, a metallic bile duct stent, and otherwise no significant biliary ductal dilation. 4.A few n onspecific borderline enlarged lymph nodes in the upper retroperitoneum and lower mediastinum as described above which are unchanged. 5.Left colonic diverticulosis. Signed: Joni Chi VerifiedDate/Time: 07/30/2021 17:48:07 Reading Location: [facility] Diagnostic Imaging Reading Room - [facility] 1.310 .12 CANCER ANTIGEN [id number] 10:13:32 Test Item Value Reference Range Interpretation Comments CA 19-9 (test 31 U/ML <35 NOTE: Methodo logy is Jakub Jose Rafael code = Electrochemilum inescence 69718-5) Immunoassay (EC LIZY). Values obtained with d ifferent assays/manufact urers cannot be used interchang eably. Results should not be u sed as sole basis to establish th e presence or absence of porfirio gnancy. Unless Otherwise Indic ated, All Testing Performed At: [facility] Pathology [facility], [address] [place] [address] Lace Pinner: Beny Mckeon M.D. IA Number [id number] Cap Accreditation N o. [id number] [facility] [id number] 18:19:26 Test Item Value Reference Range Interpretation Comments GLUCOSE (test code = See_Comment H [Autom ated message] 2345-7) The system [employer] generated this result transmitted ref erence range: 70 - 99 MG/DL. The reference r rizwana was not used to interpret this result as normal/abnor mal. BLOOD UREA NITROGEN See_Comment [Automa manoj message] (test code = 3091-6) The [employer] tem which generated this result transmitted ref erence range: 6 - 20 M G/DL. The reference r rizwana was not used to interpret this result as normal/abnor mal. CREATININE (test code = See_Comment L [Au tomated message] 2160-0) The system [employer] generated this result transmitted ref erence range: 0.6 - 1. 3 MG/DL. The refe rence range was not u sed to interpret this result as normal/abnor mal. EGFR (test code = See_Comment [Automate d message] 74324-7) The system [employer] generated this result transmitted ref erence range: >60 ML/MIN/1.73. Th e reference range was not used to int erpret this result as normal/abnormal . BUN/CREAT RATIO (test See_Comment [Auto mated message] code = 3097-3) The system [employer] generated this result transmitted ref erence range: 6 - 28 R ATIO. The reference r rizwana was not used to interpret this result as normal/abnor mal. SODIUM (test code = See_Comment [Automa manoj message] 2951-2) The system [facility] generated this result transmitted ref erence range: 133 - 14 6 MEQ/L. The refe rence range was not u sed to interpret this result as normal/abnor mal. POTASSIUM (test code = See_Comment [Aut omated message] 2823-3) The system [facility] generated this result transmitted ref erence range: 3.5 - 5. 4 MEQ/L. The refe rence range was not u sed to interpret this result as normal/abnor mal. CHLORIDE (test code = See_Comment L [Auto mated message] 160-0) The system [facility] generated this result transmitted ref erence range: 100 - 11 2 MEQ/L. The refe rence range was not u sed to interpret this result as normal/abnor mal. CO2 (test code = See_Comment [Automated message] 8) The system [facility] generated this result transmitted ref erence range: 21 - 30 MEQ/L. The reference r rizwana was not used to interpret this result as normal/abnor mal. CALCIUM (test code = See_Comment [Autom ated message] 59178-6) The system [facility] generated this result transmitted ref erence range: 8.5 - 10 .5 MG/DL. The refe rence range was not u sed to interpret this result as normal/abnor mal. PROTEIN TOTAL (test See_Comment [Automa manoj message] code = 2885-2) The system [facility] generated this result transmitted ref erence range: 6.1 - 8. 1 G/DL. The reference r rizwana was not used to interpret this result as normal/abnor mal. ALBUMIN (test code = See_Comment [Autom ated message] 90568-9) The system [facility] [employer] generated this result transmitted ref erence range: 3.4 - 4. 8 G/DL. The reference r rizwana was not used to interpret this result as normal/abnor mal. GLOBULINS, SERUM, TOTAL See_Comment [Au tomated message] (test code = 60182-3) The sy stem which generated this result transmitted ref erence range: 1.9 - 3. 7 G/DL. The reference r rizwana was not used to interpret this result as normal/abnor mal. A/G RATIO (test code = See_Comment [Aut omated message] 1759-0) The system [employer] generated this result transmitted ref erence range: 1.0 - 2. 6 RATIO. The refe rence range was not u sed to interpret this result as normal/abnor mal. BILIRUBIN TOTAL (test See_Comment [Auto mated message] code = 1974-2) The system [employer] generated this result transmitted ref erence range: <=1.2 MG /DL. The reference r rizwana was not used to interpret this result as normal/abnor mal. ALKALINE PHOSPHATASE 233 U/L 30-132 H (test code = 6768-6) AST (SGOT) (test code = 43 U/L 7-56 192-8) ALT (SGPT) (test code = 25 U/L 3-47 MIN TING PERFORMED AT 1744-2) [facility], [facility]. [address] [place] [address] CLIA NO. [id number] Unle ss Otherwise Indic ated, All Testing Per formed At: [facility], [address] [place] [address] Laborator y Director: Beny Mckeon M.D. CLIA Number [id number] Cap Accreditation N o. [id number] Lab Interpretation Abnormal (test code = 22772-8) [facility] W/AUTO DIFF WITH [id number] 17:48:43 Test Item Value Reference Range Interpretation Comments WHITE BLOOD CELL COUNT See_Comment [Aut omated message] (test code = 93541-3) The sy stem which generated this result transmitted ref erence range: 3.5 - 11 .0 K/UL. The refer ence range was not u sed to interpret this result as normal/abnor mal. RED BLOOD CELL COUNT See_Comment [Autom ated message] (test code = 51779-7) The sy stem which generated this result transmitted ref erence range: 3.80 - 5 .40 M/UL. The refer ence range was not u sed to interpret this result as normal/abnor mal. HEMOGLOBIN (test code = See_Comment [Au tomated message] 568-7) The system [employer] generated this result transmitted ref erence range: 11.5 - 1 5.5 G/DL. The refer ence range was not u sed to interpret this result as normal/abnor mal. HEMATOCRIT (test code = 34.8 % 34.0-45.0 23616-1) MEAN CORPUSCULAR VOLUME 83.1 fL 80.0-99.0 (test code = 38221-3) MEAN CORPUSCULAR 27.4 PG 25.0-33.0 HEMOGLOBIN (test code = 43316-8) MEAN CORPUSCULAR See_Comment [Automated message] HEMOGLOBIN CONC (test The sy stem which code = 72672-3) generated th is result transmitted ref erence range: 31.0 - 3 6.0 G/DL. The refer ence range was not u sed to interpret this result as normal/abnor mal. RED CELL DISTRIBUTION 14.8 % 11.5-15.0 WIDTH (test code = 81684-6) NEUTROPHILS % (test code 72 % = 47809-7) LYMPHOCYTES % (test code 18 % = 20584-0) MONOCYTES % (test code = 8 % 80288-7) EOSINOPHILS % (test code 2 % = 68337-7) BASOPHILS % (test code = 0 % 38592-8) PLATELET COUNT (test See_Comment TESTIN G PERFORMED AT code = 44685-2) CLINICAL [facility] [facility] [place]. [address] [place] [address] CLIA NO. [id number] [Aut omated message] The sy stem which generated this result transmit manoj reference range : 130 - 400 K/UL. The reference range was not used to int erpret this result as normal/abnormal . NEUTROPHILS ABSOLUTE See_Comment [Autom ated message] COUNT (test code = The syste m which 85207-7) generated this result transmitted ref erence range: 1.50 - 7 .50 K/UL. The refer ence range was not u sed to interpret this result as normal/abnor mal. LYMPHOCYTES ABSOLUTE See_Comment [Autom ated message] COUNT (test code = The syste m which 19401-7) generated this result transmitted ref erence range: 1.00 - 4 .00 K/UL. The refer ence range was not u sed to interpret this result as normal/abnor mal. MONOCYTES ABSOLUTE COUNT See_Comment [A utomated message] (test code = 00880-7) The sy stem which generated this result transmitted ref erence range: 0.20 - 1 .00 K/UL. The refer ence range was not u sed to interpret this result as normal/abnor mal. BASOPHILS ABSOLUTE COUNT See_Comment Un less Otherwise (test code = 98666-4) Indica manoj, All Testing Performed At: [facility], [address] [place] [address] Laborator y Director: Beny Mckeon M.D. IA Number [id number] Cap Accreditation N o. [id number] [Autom ated message] The sy stem which generated this result transmit manoj reference range : 0.00 - 0.20 K/UL. Th e reference range was not used to int erpret this result as normal/abnormal . [facility]2021-07-12 17:00:51 Test Item Value Reference Range Interpretation Comments Result (test code = No growth in 5 days 6463-4) SOPHIA (test code = SOPHIA) The specimen volume collected for this blood culture was below the optimum (10 mL per bottle or 20 mL total). Use of lower volumes may adversely affect recovery and/or detection times of some organisms. [facility]2021-07-12 17:00:51 Test Item Value Reference Range Interpretation Comments Result (test code = No growth in 5 days 6463-4) SOPHIA (test code = SOPHIA) The specimen volume collected for this blood culture was below the optimum (10 mL per bottle or 20 mL total). Use of lower volumes may adversely affect recovery and/or detection times of some organisms. [facility])2021-07-12 17:00:51 Test Item Value Reference Range Interpretation Comments Result (test code = No growth in 5 days 6463-4) SOPHIA (test code = SOPHIA) The specimen volume collected for this blood culture was below the optimum (10 mL per bottle or 20 mL total). Use of lower volumes may adversely affect recovery and/or detection times of some organisms. [facility])2021-07-12 17:00:51 Test Item Value Reference Range Interpretation Comments Result (test code = No growth in 5 days 6463-4) SOPHIA (test code = SOPHIA) The specimen volume collected for this blood culture was below the optimum (10 mL per bottle or 20 mL total). Use of lower volumes may adversely affect recovery and/or detection times of some organisms. [facility])2021-07-12 17:00:51 Test Item Value Reference Range Interpretation Comments Result (test code = No growth in 5 days 6463-4) SOPHIA (test code = SOPHIA) The specimen volume collected for this blood culture was below the optimum (10 mL per bottle or 20 mL total). Use of lower volumes may adversely affect recovery and/or detection times of some organisms. [facility] Culture - Routine (Left Venipuncture)2021-07-12 17:00:51 Test Item Value Reference Range Interpretation Comments Result (test code = No growth in 5 days 6463-4) SOPHIA (test code = SOPHIA) The specimen volume collected for this blood culture was below the optimum (10 mL per bottle or 20 mL total). Use of lower volumes may adversely affect recovery and/or detection times of some organisms. [facility] Culture - Routine (Left Venipuncture)2021-07-12 17:00:51 Test Item Value Reference Range Interpretation Comments Result (test code = No growth in 5 days 6463-4) SOPHIA (test code = SOPHIA) The specimen volume collected for this blood culture was below the optimum (10 mL per bottle or 20 mL total). Use of lower volumes may adversely affect recovery and/or detection times of some organisms. [facility]2021-07-12 17:00:51 Test Item Value Reference Range Interpretation Comments Result (test code = No growth in 5 days 6463-4) SOPHIA (test code = SOPHIA) The specimen volume collected for this blood culture was below the optimum (10 mL per bottle or 20 mL total). Use of lower volumes may adversely affect recovery and/or detection times of some organisms. [facility] Culture - Routine (Left Venipuncture)2021-07-12 17:00:51 Test Item Value Reference Range Interpretation Comments Result (test code = No growth in 5 days 6463-4) SOPHIA (test code = SOPHIA) The specimen volume collected for this blood culture was below the optimum (10 mL per bottle or 20 mL total). Use of lower volumes may adversely affect recovery and/or detection times of some organisms. [facility] [id number] 17:00:51 Test Item Value Reference Range Interpretation Comments CULTURE (BEAKER) (test No growth in 5 days code = 1095) The specimen volume collected for this blood culture was below the optimum (10 mL per bottle or 20 mL total). Use of lower volumes may adversely affect recovery and/or detection times of some organisms.BLOOD [id number] 17:00:44 Test Item Value Reference Range Interpretation Comments CULTURE (BEAKER) (test No growth in 5 days code = 1095) The specimen volume collected for this blood culture was below the optimum (10 mL per bottle or 20 mL total). Use of lower volumes may adversely affect recovery and/or detection times of some organisms.Comprehensive metabolic panel 2021-07-11 06:13:57 Test Item Value Reference Range Interpretation Comments Protein, Total (test 6.9 See_Comment [Autom ated code = 2885-2) message] The system which generated this result transmit manoj reference range : 6.0 - 8.3 gm/dL . The reference range was not u sed to interpret th is result as normal/abnormal . Albumin (test code = 3.5 g/dL 3.5-5.0 64726-7) Alkaline Phosphatase 275 U/L 40-150 H (test code = 6768-6) Total Bilirubin (test 1.8 mg/dL 0.2-1.2 H code = 1975-2) Sodium (test code = 133 meq/L 136-145 L 2951-2) Potassium (test code 4.2 meq/L 3.5-5.1 = 2823-3) Chloride (test code = 95 meq/L 98-107 L 5-0) CO2 (test code = 28 meq/L -29 2027-9) BUN (test code = 9 mg/dL 7- 3094-0) Creatinine (test code 0.79 mg/dL 0.57-1.25 = 2160-0) Glucose (test code = 80 mg/dL 70-105 2345-7) Calcium (test code = 8.3 mg/dL 8.4-10.2 L 55510-0) AST (test code = 45 U/L 5-34 H 1920-8) ALT (test code = 34 U/L 6-55 1742-6) EGFR (test code = 77 mL/min/1.[place] [address]-0) NOT ACCURATE CREATININE CLEARANCE IN PREDICTING GLOMERULAR FILTRATION RATE . ESTIMATED GFR I S NOT APPLICABLE FOR DIALYSIS PATIEN TS. SOPHIA (test code = SOPHIA) Drop 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 ID - PIAYA L Lab Interpretation Abnormal (test code = 11525-1) [facility] 06:13:57 Test Item Value Reference Range Interpretation Comments Magnesium (test code = 1.3 mg/dL 1.6-2.6 L 17433-6) SOPHIA (test code = SOPHIA) Drop 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 ID - PIAYA L Lab Interpretation (test Abnormal code = 13942-0) [facility] CenterCom[facility] metabolic [id number] 06:13:57 Test Item Value Reference Range Interpretation Comments Protein, Total (test 6.9 See_Comment [Autom ated code = 2885-2) message] The system which generated this result transmit manoj reference range : 6.0 - 8.3 gm/dL . The reference range was not u sed to interpret th is result as normal/abnormal . Albumin (test code = 3.5 g/dL 3.5-5.0 08214-8) Alkaline Phosphatase 275 U/L 40-150 H (test code = 6768-6) Total Bilirubin (test 1.8 mg/dL 0.2-1.2 H code = 1974-2) Sodium (test code = 133 meq/L 136-145 L 2951-2) Potassium (test code 4.2 meq/L 3.5-5.1 = 2823-3) Chloride (test code = 95 meq/L 98-107 L 2074-0) CO2 (test code = 28 meq/L 22-29 2027-9) BUN (test code = 9 mg/dL 7- 3094-0) Creatinine (test code 0.79 mg/dL 0.57-1.25 = 2160-0) Glucose (test code = 80 mg/dL 70-105 2345-7) Calcium (test code = 8.3 mg/dL 8.4-10.2 L 19255-1) AST (test code = 45 U/L 5-34 H 1920-8) ALT (test code = 34 U/L 6-55 1742-6) EGFR (test code = 77 mL/min/1.[place] [address]-9) NOT ACCURATE CREATININE CLEARANCE IN PREDICTING GLOMERULAR FILTRATION RATE . ESTIMATED GFR I S NOT APPLICABLE FOR DIALYSIS PATIEN TS. SOPHIA (test code = SOPHIA) Drop 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 ID - PIAYA L Lab Interpretation Abnormal (test code = 77775-2) [facility] 06:13:57 Test Item Value Reference Range Interpretation Comments Magnesium (test code = 1.3 mg/dL 1.6-2.6 L 02377-2) SOPHIA (test code = SOPHIA) Drop 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 ID - PIAYA L Lab Interpretation (test Abnormal code = 01090-2) [facility] [id number] 06:13:57 Test Item Value Reference Range Interpretation Comments TOTAL PROTEIN 6.9 gm/dL 6.0-8.3 (BEAKER) (test code = 770) ALBUMIN (BEAKER) 3.5 g/dL 3.5-5.0 (test code = 1145) ALKALINE PHOSPHATASE 275 U/L 40-150 H (BEAKER) (test code = 346) BILIRUBIN TOTAL 1.8 mg/dL 0.2-1.2 H (BEAKER) (test code = 377) SODIUM (BEAKER) (test 133 meq/L 136-145 L code = 381) POTASSIUM (BEAKER) 4.2 meq/L 3.5-5.1 (test code = 379) CHLORIDE (BEAKER) 95 meq/L 98-107 L (test code = 382) CO2 (BEAKER) (test 28 meq/L 22-29 code = 355) BLOOD UREA NITROGEN 9 mg/dL 7-21 (BEAKER) (test code = 354) CREATININE (BEAKER) 0.79 mg/dL 0.57-1.25 (test code = 358) GLUCOSE RANDOM 80 mg/dL 70-105 (BEAKER) (test code = 652) CALCIUM (BEAKER) 8.3 mg/dL 8.4-10.2 L (test code = 697) AST (SGOT) (BEAKER) 45 U/L 5-34 H (test code = 353) ALT (SGPT) (BEAKER) 34 U/L 6-55 (test code = 347) EGFR (BEAKER) (test 77 mL/min/1.73 ESTIMA MANOJ GFR IS code = 1092) sq m NOT ACCURATE CREATININE CLEARANCE IN PREDICTING GLOMERULAR FILTRATION RATE . ESTIMATED GFR I S NOT APPLICABLE FOR DIALYSIS PATIEN TS. Drop 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 ID - JM [id number] 06:13:57 Test Item Value Reference Range Interpretation Comments MAGNESIUM (AKER) (test code = 1.3 mg/dL 1.6-2.6 L 627) Drop 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 ID - JM LCalcium, [id number] 05:25:30 Test Item Value Reference Range Interpretation Comments Calcium, Ion (test code = 1993-08) 1.01 mmol/L 1.12-1.27 L pH, Blood (test code = 12269-9) 7.40 Lab Interpretation (test code = Abnormal 44734-0) [facility], [id number] 05:25:30 Test Item Value Reference Range Interpretation Comments Calcium, Ion (test code = 1993-08) 1.01 mmol/L 1.12-1.27 L pH, Blood (test code = 18537-1) 7.40 Lab Interpretation (test code = Abnormal 05641-2) [facility], [id number] 05:25:30 Test Item Value Reference Range Interpretation Comments Calcium, Ion (test code = 1993-08) 1.01 mmol/L 1.12-1.27 L pH, Blood (test code = 88940-6) 7.40 Lab Interpretation (test code = Abnormal 11197-0) [facility], [id number] 05:25:30 Test Item Value Reference Range Interpretation Comments Calcium, Ion (test code = 1993-08) 1.01 mmol/L 1.12-1.27 L pH, Blood (test code = 02987-0) 7.40 Lab Interpretation (test code = Abnormal 71811-7) [facility], [id number] 05:25:30 Test Item Value Reference Range Interpretation Comments Calcium, Ion (test code = 1993-08) 1.01 mmol/L 1.12-1.27 L pH, Blood (test code = 19115-7) 7.40 Lab Interpretation (test code = Abnormal 76242-0) [facility], [id number] 05:25:30 Test Item Value Reference Range Interpretation Comments Calcium, Ion (test code = 1993-08) 1.01 mmol/L 1.12-1.27 L pH, Blood (test code = 93620-4) 7.40 Lab Interpretation (test code = Abnormal 70542-9) [facility], [id number] 05:25:30 Test Item Value Reference Range Interpretation Comments Calcium, Ion (test code = 1993-08) 1.01 mmol/L 1.12-1.27 L pH, Blood (test code = 50329-5) 7.40 Lab Interpretation (test code = Abnormal 24908-5) [facility], [id number] 05:25:30 Test Item Value Reference Range Interpretation Comments Calcium, Ion (test code = 1993-08) 1.01 mmol/L 1.12-1.27 L pH, Blood (test code = 01956-3) 7.40 Lab Interpretation (test code = Abnormal 86412-9) [facility], [id number] 05:25:30 Test Item Value Reference Range Interpretation Comments Calcium, Ion (test code = 1993-08) 1.01 mmol/L 1.12-1.27 L pH, Blood (test code = 45998-4) 7.40 Lab Interpretation (test code = Abnormal 93583-9) [facility], [id number] 05:25:30 Test Item Value Reference Range Interpretation Comments CALCIUM IONIZED (BEAKER) (test 1.01 mmol/L 1.12-1.27 L code = 698) PH, BLOOD (BEAKER) (test code = 7.40 1810) CBC with platelet count + automated [id number] 05:06:06 Test Item Value Reference Range Interpretation Comments WBC (test code = 6690-2) 8.4 See_Comment [A utomated message] The system [employer] generated this result transmitted ref erence range: 3.5 - 10 .5 K/L. The refe rence range was not u sed to interpret this result as normal/abnor mal. RBC (test code = 789-8) 4.29 See_Comment [Au tomated message] The system [employer] generated this result transmitted ref erence range: 3.93 - 5 .22 M/L. The refe rence range was not u sed to interpret this result as normal/abnor mal. MCHC (test code = 786-4) 31.6 See_Comment L [A utomated message] The system [employer] generated this result transmitted ref erence range: 32.2 - 3 5.5 GM/DL. The refe rence range was not u sed to interpret this result as normal/abnor mal. Hematocrit (test code = 37.0 % 34.1-44.9 4544-3) MCV (test code = 787-2) 86.2 fL 79.4-94.8 MCH (test code = 785-6) 27.3 pg 25.6-32.2 RDW (test code = 788-0) 13.8 % 11.7-14.4 Platelets (test code = 235 See_Comment [Aut omated message] 777-3) The system [employer] generated this result transmitted ref erence range: 150 - 45 0 K/CU MM. The referen ce range was not u sed to interpret this result as normal/abnor mal. MPV (test code = 10.1 fL 9.4-12.3 75770-5) nRBC (test code = 413) 0 See_Comment [Aut omated message] The system [employer] generated this result transmitted ref erence range: 0 - 0 /1 00 WBC. The refere nce range was not u sed to interpret this result as normal/abnor mal. % Neutros (test code = 72 % 429) % Lymphs (test code = 21 % 430) % Monos (test code = 6 % 431) % Eos (test code = 432) 1 % % Baso (test code = 437) 0 % # Neutros (test code = 6.01 See_Comment [Aut omated message] 670) The system [employer] generated this result transmitted ref erence range: 1.56 - 6 .13 K/L. The refe rence range was not u sed to interpret this result as normal/abnor mal. # Lymphs (test code = 1.77 See_Comment [Auto mated message] 414) The system [employer] generated this result transmitted ref erence range: 1.18 - 3 .74 K/L. The refe rence range was not u sed to interpret this result as normal/abnor mal. # Monos (test code = 0.52 See_Comment H [Autom ated message] 415) The system [employer] generated this result transmitted ref erence range: 0.24 - 0 .36 K/L. The refe rence range was not u sed to interpret this result as normal/abnor mal. # Eos (test code = 416) 0.06 See_Comment [Au tomated message] The system [employer] generated this result transmitted ref erence range: 0.04 - 0 .36 K/L. The refe rence range was not u sed to interpret this result as normal/abnor mal. # Baso (test code = 417) 0.02 See_Comment [A utomated message] The system [employer] generated this result transmitted ref erence range: 0.01 - 0 .08 K/L. The refe rence range was not u sed to interpret this result as normal/abnor mal. Immature 0 % 0-1 Granulocytes-Relative (test code = 2801) Lab Interpretation (test Abnormal code = 14662-8) [facility] with platelet count + automated [id number] 05:06:06 Test Item Value Reference Range Interpretation Comments WBC (test code = 6690-2) 8.4 See_Comment [A utomated message] The system [employer] generated this result transmitted ref erence range: 3.5 - 10 .5 K/L. The refe rence range was not u sed to interpret this result as normal/abnor mal. RBC (test code = 789-8) 4.29 See_Comment [Au tomated message] The system [employer] generated this result transmitted ref erence range: 3.93 - 5 .22 M/L. The refe rence range was not u sed to interpret this result as normal/abnor mal. MCHC (test code = 786-4) 31.6 See_Comment L [A utomated message] The system [employer] generated this result transmitted ref erence range: 32.2 - 3 5.5 GM/DL. The refe rence range was not u sed to interpret this result as normal/abnor mal. Hematocrit (test code = 37.0 % 34.1-44.9 4544-3) MCV (test code = 787-2) 86.2 fL 79.4-94.8 MCH (test code = 785-6) 27.3 pg 25.6-32.2 RDW (test code = 788-0) 13.8 % 11.7-14.4 Platelets (test code = 235 See_Comment [Aut omated message] 777-3) The system [employer] generated this result transmitted ref erence range: 150 - 45 0 K/CU MM. The referen ce range was not u sed to interpret this result as normal/abnor mal. MPV (test code = 10.1 fL 9.4-12.3 31825-2) nRBC (test code = 413) 0 See_Comment [Aut omated message] The system [employer] generated this result transmitted ref erence range: 0 - 0 /1 00 WBC. The refere nce range was not u sed to interpret this result as normal/abnor mal. % Neutros (test code = 72 % 429) % Lymphs (test code = 21 % 430) % Monos (test code = 6 % 431) % Eos (test code = 432) 1 % % Baso (test code = 437) 0 % # Neutros (test code = 6.01 See_Comment [Aut omated message] 670) The system [employer] generated this result transmitted ref erence range: 1.56 - 6 .13 K/L. The refe rence range was not u sed to interpret this result as normal/abnor mal. # Lymphs (test code = 1.77 See_Comment [Auto mated message] 414) The system [employer] generated this result transmitted ref erence range: 1.18 - 3 .74 K/L. The refe rence range was not u sed to interpret this result as normal/abnor mal. # Monos (test code = 0.52 See_Comment H [Autom ated message] 415) The system [employer] generated this result transmitted ref erence range: 0.24 - 0 .36 K/L. The refe rence range was not u sed to interpret this result as normal/abnor mal. # Eos (test code = 416) 0.06 See_Comment [Au tomated message] The system [employer] generated this result transmitted ref erence range: 0.04 - 0 .36 K/L. The refe rence range was not u sed to interpret this result as normal/abnor mal. # Baso (test code = 417) 0.02 See_Comment [A utomated message] The system [employer] generated this result transmitted ref erence range: 0.01 - 0 .08 K/L. The refe rence range was not u sed to interpret this result as normal/abnor mal. Immature 0 % 0-1 Granulocytes-Relative (test code = 2801) Lab Interpretation (test Abnormal code = 63365-8) [facility] W/PLT COUNT & AUTO [id number] 05:06:06 Test Item Value Reference Range Interpretation Comments WHITE BLOOD CELL COUNT (BEAKER) 8.4 K/ L 3.5-10.5 (test code = 775) RED BLOOD CELL COUNT (BEAKER) 4.29 M/ L 3.93-5.22 (test code = 761) HEMOGLOBIN (BEAKER) (test code = 11.7 GM/DL 11.2-15.7 410) HEMATOCRIT (BEAKER) (test code = 37.0 % 34.1-44.9 411) MEAN CORPUSCULAR VOLUME (BEAKER) 86.2 fL 79.4-94.8 (test code = 753) MEAN CORPUSCULAR HEMOGLOBIN 27.3 pg 25.6-32.2 (BEAKER) (test code = 751) MEAN CORPUSCULAR HEMOGLOBIN CONC 31.6 GM/DL 32.2-35.5 L (BEAKER) (test code = 752) RED CELL DISTRIBUTION WIDTH 13.8 % 11.7-14.4 (BEAKER) (test code = 412) PLATELET COUNT (BEAKER) (test 235 K/CU MM 150-450 code = 756) MEAN PLATELET VOLUME (BEAKER) 10.1 fL 9.4-12.3 (test code = 754) NUCLEATED RED BLOOD CELLS 0 /100 WBC 0-0 (BEAKER) (test code = 413) NEUTROPHILS RELATIVE PERCENT 72 % (BEAKER) (test code = 429) LYMPHOCYTES RELATIVE PERCENT 21 % (BEAKER) (test code = 430) MONOCYTES RELATIVE PERCENT 6 % (BEAKER) (test code = 431) EOSINOPHILS RELATIVE PERCENT 1 % (BEAKER) (test code = 432) BASOPHILS RELATIVE PERCENT 0 % (BEAKER) (test code = 437) NEUTROPHILS ABSOLUTE COUNT 6.01 K/ L 1.56-6.13 (BEAKER) (test code = 670) LYMPHOCYTES ABSOLUTE COUNT 1.77 K/ L 1.18-3.74 (BEAKER) (test code = 414) MONOCYTES ABSOLUTE COUNT (BEAKER) 0.52 K/ L 0.24-0.36 H (test code = 415) EOSINOPHILS ABSOLUTE COUNT 0.06 K/ L 0.04-0.36 (BEAKER) (test code = 416) BASOPHILS ABSOLUTE COUNT (BEAKER) 0.02 K/ L 0.01-0.08 (test code = 417) IMMATURE GRANULOCYTES-RELATIVE 0 % 0-1 PERCENT (BEAKER) (test code = 2801) POC-Glucose [id number] 21:43:11 Test Item Value Reference Range Interpretation Comments POC-Glucose Meter (test 109 mg/dL 70-110 : TE STED AT [facility] code = 1538) [address] [place] [address], [facility] 30: Drop 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/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 ID = [id number] for BEHZAD GODFREY MCKEON Lab Interpretation (test Normal code = 28868-1) [facility]-Glucose [id number] 21:43:11 Test Item Value Reference Range Interpretation Comments POC-Glucose Meter (test 109 mg/dL 70-110 : TE STED AT [facility] code = 1538) [address] [place] [address], [facility] 30: Drop 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/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 ID = [id number] for EPIFANIO BEHZAD MCKEON Lab Interpretation (test Normal code = 92819-2) [facility]-Glucose [id number] 21:43:11 Test Item Value Reference Range Interpretation Comments POC-Glucose Meter (test 109 mg/dL 70-110 : TE STED AT [facility] code = 1538) [address] [place] [address], 770 30: Drop 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/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 ID = [id number] for EPIFANIO, SAMANT MCKEON Lab Interpretation (test Normal code = 39715-3) [facility]-Glucose [id number] 21:43:11 Test Item Value Reference Range Interpretation Comments POC-Glucose Meter (test 109 mg/dL 70-110 : TE STED AT [facility] code = 1538) [address] [place] [address], 770 30: Drop 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/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 ID = [id number] for EPIFANIO, SAMANT MCKEON Lab Interpretation (test Normal code = 30039-1) [facility]-Glucose [id number] 21:43:11 Test Item Value Reference Range Interpretation Comments POC-Glucose Meter (test 109 mg/dL 70-110 : TE STED AT [facility] code = 1538) [address] [place] [address], [facility] 30: Drop 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/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 ID = [id number] for EPIFANIO, SAMANT MCKEON Lab Interpretation (test Normal code = 01302-2) [facility]-Glucose [id number] 21:43:11 Test Item Value Reference Range Interpretation Comments POC-Glucose Meter (test 109 mg/dL 70-110 : TE STED AT [facility] code = 1538) [address] [place] [address], [facility] 30: Drop 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/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 ID = [id number] for EPIFANIO, SAMANT MCKEON Lab Interpretation (test Normal code = 90372-5) [facility]-Glucose [id number] 21:43:11 Test Item Value Reference Range Interpretation Comments POC-Glucose Meter (test 109 mg/dL 70-110 : TE STED AT [facility] code = 1538) [address] [place] [address], 770 30: Drop 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/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 ID = [id number] for EPIFANIO, SAMANT MCKEON Lab Interpretation (test Normal code = 31539-9) [facility]-Glucose [id number] 21:43:11 Test Item Value Reference Range Interpretation Comments POC-Glucose Meter (test 109 mg/dL 70-110 : TE STED AT [facility] code = 1538) [address] [place] [address], 770 30: Drop 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/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 ID = [id number] for BEHZAD GODFREY Lab Interpretation (test Normal code = 04475-7) [facility] [id number] 21:43:11 Test Item Value Reference Range Interpretation Comments POC-Glucose Meter (test 109 mg/dL 70-110 : TE STED AT [facility] code = 1538) [address] [facility], 770 30: Drop 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/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 ID = [id number] for BEHZAD GODFREY MCKEON Lab Interpretation (test Normal code = 40343-2) [facility] [id number] 21:43:11 Test Item Value Reference Range Interpretation Comments POC-GLUCOSE METER 109 mg/dL 70-110 : TESTED A T [facility] 67[address] (BEAKER) (test code = [facility], 1538) [address]: Drop 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/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 ID = [id number] for LOULOU GRANT POCT-GLUCOSE [id number] 16:58:39 Test Item Value Reference Range Interpretation Comments POC-GLUCOSE METER 159 mg/dL 70-110 H : [facility] (BEAKER) (test code = [facility], 1538) [address]: Drop 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/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 ID = [id number] for ANTONIO JUSTICE TTWindy POCT-GLUCOSE [id number] 12:48:09 Test Item Value Reference Range Interpretation Comments POC-GLUCOSE METER 122 mg/dL 70-110 H : TESTED A T [facility] 67[address] (BEAKER) (test code = [facility], 1538) [address]: Drop 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/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 ID = [id number] for DENILSON MARIN [place], [id number] 12:10:00Reason for exam:->[facility] ZAVALETA : 1970 Sex: FFluoroscopic unit utilized for a procedure performed in the OR. No interpretation was requested. Referto the operative report for findings. Refer to PACS for patient radiation dose information.POCT-GLUCOSE [id number] 07:22:37 Test Item Value Reference Range Interpretation Comments POC-GLUCOSE METER 77 mg/dL 70-110 : TESTED A T [facility] 67[address] (BEAKER) (test code = KENYA Mcmullen [facility], 1538) 22754: Drop 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/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 ID = [id number] for SURESH ISBELL [id number] 04:49:25 Test Item Value Reference Range Interpretation Comments Phosphorus (test code 1.9 mg/dL 2.3-4.7 L Specim en = 2777-1) slightly hemolyzed SOPHIA (test code = SOPHIA) Drop 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 ID - [facility] Lab Interpretation Abnormal (test code = 59282-3) [facility] 04:49:25 Test Item Value Reference Range Interpretation Comments Phosphorus (test code 1.9 mg/dL 2.3-4.7 L Specim en = 2777-1) slightly hemolyzed SOPHIA (test code = SOPHIA) Drop 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 ID - [facility] Lab Interpretation Abnormal (test code = 19544-1) [facility] 04:49:25 Test Item Value Reference Range Interpretation Comments Phosphorus (test code 1.9 mg/dL 2.3-4.7 L Specim en = 2777-1) slightly hemolyzed SOPHIA (test code = SOPHIA) Drop 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 ID - SARAH Lab Interpretation Abnormal (test code = 90371-4) [facility] 04:49:25 Test Item Value Reference Range Interpretation Comments Phosphorus (test code 1.9 mg/dL 2.3-4.7 L Specim en = 2777-1) slightly hemolyzed SOPHIA (test code = SOPHIA) Drop 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 ID - [facility] Lab Interpretation Abnormal (test code = 39409-2) [facility] 04:49:25 Test Item Value Reference Range Interpretation Comments Phosphorus (test code 1.9 mg/dL 2.3-4.7 L Specim en = 2777-1) slightly hemolyzed SOPHIA (test code = SOPHIA) Drop 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 ID - SARAH M Lab Interpretation Abnormal (test code = 30644-3) [facility] 04:49:25 Test Item Value Reference Range Interpretation Comments Phosphorus (test code 1.9 mg/dL 2.3-4.7 L Specim en = 2777-1) slightly hemolyzed SOPHIA (test code = SOPHIA) Drop 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 ID - SARAH Lab Interpretation Abnormal (test code = 81610-5) [facility] 04:49:25 Test Item Value Reference Range Interpretation Comments Phosphorus (test code 1.9 mg/dL 2.3-4.7 L Specim en = 2777-1) slightly hemolyzed SOPHIA (test code = SOPHIA) Drop 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 ID - SARAH Lab Interpretation Abnormal (test code = 40248-9) [facility] 04:49:25 Test Item Value Reference Range Interpretation Comments Phosphorus (test code 1.9 mg/dL 2.3-4.7 L Specim en = 2777-1) slightly hemolyzed SOPHIA (test code = SOPHIA) Drop 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 ID - SARAH Lab Interpretation Abnormal (test code = 19329-9) [facility] 04:49:25 Test Item Value Reference Range Interpretation Comments Phosphorus (test code 1.9 mg/dL 2.3-4.7 L Specim en = 2777-1) slightly hemolyzed SOPHIA (test code = SOPHIA) Drop 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 ID - SARAH Lab Interpretation Abnormal (test code = 58845-5) [facility] 04:49:25 Test Item Value Reference Range Interpretation Comments MAGNESIUM (BEAKER) 1.6 mg/dL 1.6-2.6 Specimen slightly (test code = 627) hemolyzed Drop 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 ID - SARAH [id number] 04:49:25 Test Item Value Reference Range Interpretation Comments PHOSPHORUS (BEAKER) 1.9 mg/dL 2.3-4.7 L Specimen slightly (test code = 604) hemolyzed Drop 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 ID - SARAH MCOMPREHENSIVE METABOLIC [id number] 04:49:25 Test Item Value Reference Range Interpretation Comments TOTAL PROTEIN 6.8 gm/dL 6.0-8.3 Specimen sligh tly (BEAKER) (test code = hemoly zed 770) ALBUMIN (BEAKER) 3.5 g/dL 3.5-5.0 Specimen sl ightly (test code = 1145) hemolyzed ALKALINE PHOSPHATASE 225 U/L 40-150 H (BEAKER) (test code = 346) BILIRUBIN TOTAL 1.8 mg/dL 0.2-1.2 H Specimen sli ghtly (BEAKER) (test code = hemoly zed 377) SODIUM (BEAKER) (test 136 meq/L 136-145 code = 381) POTASSIUM (BEAKER) 4.5 meq/L 3.5-5.1 Specimen slightly (test code = 379) hemolyzed CHLORIDE (BEAKER) 95 meq/L 98-107 L (test code = 382) CO2 (BEAKER) (test 33 meq/L 22-29 H code = 355) BLOOD UREA NITROGEN 19 mg/dL 7-21 (BEAKER) (test code = 354) CREATININE (BEAKER) 1.00 mg/dL 0.57-1.25 Specimen slightly (test code = 358) hemolyzed GLUCOSE RANDOM 74 mg/dL 70-105 (BEAKER) (test code = 652) CALCIUM (BEAKER) 8.5 mg/dL 8.4-10.2 (test code = 697) AST (SGOT) (BEAKER) 45 U/L 5-34 H Specimen slightly (test code = 353) hemolyzed ALT (SGPT) (BEAKER) 33 U/L 6-55 Specimen slightly (test code = 347) hemolyzed EGFR (BEAKER) (test 58 mL/min/1.73 ESTIMA MANOJ GFR IS code = 1092) sq m NOT ACCURATE CREATININE CLEARANCE IN PREDICTING GLOMERULAR FILTRATION RATE . ESTIMATED GFR I S NOT APPLICABLE FOR DIALYSIS PATIEN TS. Drop 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 ID - SARAH [facility] W/PLT COUNT & AUTO [id number] 04:27:35 Test Item Value Reference Range Interpretation Comments WHITE BLOOD CELL COUNT (BEAKER) 8.4 K/ L 3.5-10.5 (test code = 775) RED BLOOD CELL COUNT (BEAKER) 4.54 M/ L 3.93-5.22 (test code = 761) HEMOGLOBIN (BEAKER) (test code = 12.4 GM/DL 11.2-15.7 410) HEMATOCRIT (BEAKER) (test code = 37.6 % 34.1-44.9 411) MEAN CORPUSCULAR VOLUME (BEAKER) 82.8 fL 79.4-94.8 (test code = 753) MEAN CORPUSCULAR HEMOGLOBIN 27.3 pg 25.6-32.2 (BEAKER) (test code = 751) MEAN CORPUSCULAR HEMOGLOBIN CONC 33.0 GM/DL 32.2-35.5 (BEAKER) (test code = 752) RED CELL DISTRIBUTION WIDTH 13.7 % 11.7-14.4 (BEAKER) (test code = 412) PLATELET COUNT (BEAKER) (test 228 K/CU MM 150-450 code = 756) MEAN PLATELET VOLUME (BEAKER) 10.3 fL 9.4-12.3 (test code = 754) NUCLEATED RED BLOOD CELLS 0 /100 WBC 0-0 (BEAKER) (test code = 413) NEUTROPHILS RELATIVE PERCENT 55 % (BEAKER) (test code = 429) LYMPHOCYTES RELATIVE PERCENT 30 % (BEAKER) (test code = 430) MONOCYTES RELATIVE PERCENT 9 % (BEAKER) (test code = 431) EOSINOPHILS RELATIVE PERCENT 5 % (BEAKER) (test code = 432) BASOPHILS RELATIVE PERCENT 1 % (BEAKER) (test code = 437) NEUTROPHILS ABSOLUTE COUNT 4.66 K/ L 1.56-6.13 (BEAKER) (test code = 670) LYMPHOCYTES ABSOLUTE COUNT 2.54 K/ L 1.18-3.74 (BEAKER) (test code = 414) MONOCYTES ABSOLUTE COUNT (BEAKER) 0.78 K/ L 0.24-0.36 H (test code = 415) EOSINOPHILS ABSOLUTE COUNT 0.38 K/ L 0.04-0.36 H (BEAKER) (test code = 416) BASOPHILS ABSOLUTE COUNT (BEAKER) 0.05 K/ L 0.01-0.08 (test code = 417) IMMATURE GRANULOCYTES-RELATIVE 0 % 0-1 PERCENT (BEAKER) (test code = 2801) CALCIUM, [id number] 04:24:30 Test Item Value Reference Range Interpretation Comments CALCIUM IONIZED (BEAKER) (test 1.00 mmol/L 1.12-1.27 L code = 698) PH, BLOOD (BEAKER) (test code = 7.39 1810) SARS-CoV2/RT-PCR (Asymptomatic ONLY)2021-07-10 02:57:41 Test Item Value Reference Range Interpretation Comments SARS-COV2/RT-PCR (test Negative Negative code = 15627-5) SOPHIA (test code = SOPHIA) Negative result for this test determines that [...] be considered in cases of suspected false negatives. The limit of detection for this assay is 100 copies/mL. This SARS-CoV-2 test is a real-time RT_PCR test intended for the qualitative detection of nucleic acid from SARS-CoV-2 in a nasopharyngeal swab specimen collected from individuals suspected of COVID-19 by their healthcare provider. This test has not been Food and Drug [...] is revoked under Section 564(g) of the Act. Testing was performed using the Weesh SARS-CoV-2 assay. Fact Sheet for Healthcare Providers:https://www.judith hendricks/wilfrid/RT SARS-CoV-2 HCP Fact Sheet 51-716737.pdf Fact Sheet for Healthcare Patients:https://www.mo lecular.rosado/wilfrid/RT SARS-CoV-2 Patient Fact Sheet EN 51-317814J8.pdf Lab Interpretation Normal (test code = 58384-0) [facility]21-07-10 02:57:41 Test Item Value Reference Range Interpretation Comments SARS-COV2/RT-PCR (test Negative Negative code = 60843-3) SOPHIA (test code = SOPHIA) Negative result for this test determines that [...] be considered in cases of suspected false negatives. The limit of detection for this assay is 100 copies/mL. This SARS-CoV-2 test is a real-time RT_PCR test intended for the qualitative detection of nucleic acid from SARS-CoV-2 in a nasopharyngeal swab specimen collected from individuals suspected of COVID-19 by their healthcare provider. This test has not been Food and Drug [...] is revoked under Section 564(g) of the Act. Testing was performed using the [employer] SARS-CoV-2 assay. Fact Sheet for Healthcare Providers:https://www.judith hendricks/wilfrid/RT SARS-CoV-2 HCP Fact Sheet 51-819153.pdf Fact Sheet for Healthcare Patients:https://www.jeffery villanueva/wilfrid/RT SARS-CoV-2 Patient Fact Sheet EN 51-909370W7.pdf Lab Interpretation Normal (test code = 67037-9) [facility]2021-07-10 02:57:41 Test Item Value Reference Range Interpretation Comments SARS-COV2/RT-PCR (test Negative Negative code = 12719-8) SOPHIA (test code = SOPHIA) Negative result for this test determines that [...] be considered in cases of suspected false negatives. The limit of detection for this assay is 100 copies/mL. This SARS-CoV-2 test is a real-time RT_PCR test intended for the qualitative detection of nucleic acid from SARS-CoV-2 in a nasopharyngeal swab specimen collected from individuals suspected of COVID-19 by their healthcare provider. This test has not been Food and Drug [...] is revoked under Section 564(g) of the Act. Testing was performed using the Weesh SARS-CoV-2 assay. Fact Sheet for Healthcare Providers:https://www.judith hendricks/wilfrid/RT SARS-CoV-2 HCP Fact Sheet 51-887883.pdf Fact Sheet for Healthcare Patients:https://www.jeffery villanueva/wilfrid/RT SARS-CoV-2 Patient Fact Sheet EN 51-749686B2.pdf Lab Interpretation Normal (test code = 25182-2) [facility]2021-07-10 02:57:41 Test Item Value Reference Range Interpretation Comments SARS-COV2/RT-PCR (test Negative Negative code = 14265-6) SOPHIA (test code = SOPHIA) Negative result for this test determines that [...] be considered in cases of suspected false negatives. The limit of detection for this assay is 100 copies/mL. This SARS-CoV-2 test is a real-time RT_PCR test intended for the qualitative detection of nucleic acid from SARS-CoV-2 in a nasopharyngeal swab specimen collected from individuals suspected of COVID-19 by their healthcare provider. This test has not been Food and Drug [...] is revoked under Section 564(g) of the Act. Testing was performed using the Weesh SARS-CoV-2 assay. Fact Sheet for Healthcare Providers:https://www.judith hendricks/wilfrid/RT SARS-CoV-2 HCP Fact Sheet 51-889005.pdf Fact Sheet for Healthcare Patients:https://www.jeffery villanueva/wilfrid/RT SARS-CoV-2 Patient Fact Sheet EN 51-137821B1.pdf Lab Interpretation Normal (test code = 09676-9) [facility]2021-07-10 02:57:41 Test Item Value Reference Range Interpretation Comments SARS-COV2/RT-PCR (test Negative Negative code = 17641-8) SOPHIA (test code = SOPHIA) Negative result for this test determines that [...] be considered in cases of suspected false negatives. The limit of detection for this assay is 100 copies/mL. This SARS-CoV-2 test is a real-time RT_PCR test intended for the qualitative detection of nucleic acid from SARS-CoV-2 in a nasopharyngeal swab specimen collected from individuals suspected of COVID-19 by their healthcare provider. This test has not been Food and Drug [...] is revoked under Section 564(g) of the Act. Testing was performed using the Weesh SARS-CoV-2 assay. Fact Sheet for Healthcare Providers:https://www.judith hendricks/wilfrid/RT SARS-CoV-2 HCP Fact Sheet 51-690244.pdf Fact Sheet for Healthcare Patients:https://www.jeffery villanueva/wilfrid/RT SARS-CoV-2 Patient Fact Sheet EN [id number].pdf Lab Interpretation Normal (test code = 93100-7) [facility]-07-10 02:57:41 Test Item Value Reference Range Interpretation Comments SARS-COV2/RT-PCR (test Negative Negative code = 71645-6) SOPHIA (test code = SOPHIA) Negative result for this test determines that [...] be considered in cases of suspected false negatives. The limit of detection for this assay is 100 copies/mL. This SARS-CoV-2 test is a real-time RT_PCR test intended for the qualitative detection of nucleic acid from SARS-CoV-2 in a nasopharyngeal swab specimen collected from individuals suspected of COVID-19 by their healthcare provider. This test has not been Food and Drug [...] is revoked under Section 564(g) of the Act. Testing was performed using the Rosado SARS-CoV-2 assay. Fact Sheet for Healthcare Providers:https://www.judith hendricks/wilfrid/RT SARS-CoV-2 HCP Fact Sheet 51-561340.pdf Fact Sheet for Healthcare Patients:https://www.jeffery villanueva/wilfrid/RT SARS-CoV-2 Patient Fact Sheet EN 51-396841W9.pdf Lab Interpretation Normal (test code = 96752-7) [facility]2021-07-10 02:57:41 Test Item Value Reference Range Interpretation Comments SARS-COV2/RT-PCR (test Negative Negative code = 00706-8) SOPHIA (test code = SOPHIA) Negative result for this test determines that [...] be considered in cases of suspected false negatives. The limit of detection for this assay is 100 copies/mL. This SARS-CoV-2 test is a real-time RT_PCR test intended for the qualitative detection of nucleic acid from SARS-CoV-2 in a nasopharyngeal swab specimen collected from individuals suspected of COVID-19 by their healthcare provider. This test has not been Food and Drug [...] is revoked under Section 564(g) of the Act. Testing was performed using the Rosado SARS-CoV-2 assay. Fact Sheet for Healthcare Providers:https://www.judith hendricks/wilfrid/RT SARS-CoV-2 HCP Fact Sheet 51-664146.pdf Fact Sheet for Healthcare Patients:https://www.jeffery villanueva/wilfrid/RT SARS-CoV-2 Patient Fact Sheet EN 51-241234V1.pdf Lab Interpretation Normal (test code = 66295-5) [facility]2021-07-10 02:57:41 Test Item Value Reference Range Interpretation Comments SARS-COV2/RT-PCR (test Negative Negative code = 71267-0) SOPHIA (test code = SOPHIA) Negative result for this test determines that [...] be considered in cases of suspected false negatives. The limit of detection for this assay is 100 copies/mL. This SARS-CoV-2 test is a real-time RT_PCR test intended for the qualitative detection of nucleic acid from SARS-CoV-2 in a nasopharyngeal swab specimen collected from individuals suspected of COVID-19 by their healthcare provider. This test has not been Food and Drug [...] is revoked under Section 564(g) of the Act. Testing was performed using the Rosado SARS-CoV-2 assay. Fact Sheet for Healthcare Providers:https://www.judith hendricks/wilfrid/RT SARS-CoV-2 HCP Fact Sheet 51-665459.pdf Fact Sheet for Healthcare Patients:https://www.jeffery villanueva/wilfrid/RT SARS-CoV-2 Patient Fact Sheet EN 51-122485C3.pdf Lab Interpretation Normal (test code = 09160-0) [facility]2021-07-10 02:57:41 Test Item Value Reference Range Interpretation Comments SARS-COV2/RT-PCR (test Negative Negative code = 49654-5) SOPHIA (test code = SOPHIA) Negative result for this test determines that [...] be considered in cases of suspected false negatives. The limit of detection for this assay is 100 copies/mL. This SARS-CoV-2 test is a real-time RT_PCR test intended for the qualitative detection of nucleic acid from SARS-CoV-2 in a nasopharyngeal swab specimen collected from individuals suspected of COVID-19 by their healthcare provider. This test has not been Food and Drug [...] is revoked under Section 564(g) of the Act. Testing was performed using the Rosado SARS-CoV-2 assay. Fact Sheet for Healthcare Providers:https://www.judith hendricks/wilfrid/RT SARS-CoV-2 HCP Fact Sheet 51-820503.pdf Fact Sheet for Healthcare Patients:https://www.jeffery villanueva/wilfrid/RT SARS-CoV-2 Patient Fact Sheet EN 51-560496C2.pdf Lab Interpretation Normal (test code = 40834-7) [facility])2021-07-10 02:57:41 Test Item Value Reference Range Interpretation Comments SARS-COV2/RT-PCR (test code = Negative Negative 2462419) Negative result for this test determines that [...] under Section 564(g) of the Act.Testing was performed using t [employer] SARS-CoV-2 assay.Fact Sheet for Healthcare Providers:https://www.[employer].rosado/wilfrid/RT SARS-CoV-2 HCP Fact Sheet 51- 262220.pdfFact Sheet for Healthcare Patients:https://www.molecular.rosado/wilfrid/RT SARS-CoV-2 Patient Fact Sheet EN [id number].pdfPOCT-GLUCOSE [id number] 20:31:57 Test Item Value Reference Range Interpretation Comments POC-GLUCOSE METER 104 mg/dL 70-110 : Notified RN/: (ROBYN) (test code = TESTED AT [facility] [address] 1538) [facility], [address]: Drop 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/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 ID = [id number] for ILYA SPANGLER POCT-GLUCOSE [id number] 16:29:31 Test Item Value Reference Range Interpretation Comments POC-GLUCOSE METER 96 mg/dL 70-110 : TESTED A T [facility] [address] (BEAKER) (test code = KENYA Mcmullen [facility], 1538) [address]: Drop 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/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 ID = [id number] for SURESH ISBELL Hepatic function [id number] 13:26:49 Test Item Value Reference Range Interpretation Comments Protein, Total (test 6.6 See_Comment [Autom ated code = 2885-2) message] The system which generated this result transmit manoj reference range : 6.0 - 8.3 gm/dL . The reference range was not u sed to interpret th is result as normal/abnormal . Albumin (test code = 3.5 g/dL 3.5-5.0 25599-9) Total Bilirubin (test 2.0 mg/dL 0.2-1.2 H code = 1974-) Bilirubin, Direct 1.5 mg/dL 0.1-0.5 H (test code = 1967-) Alkaline Phosphatase 205 U/L 40-150 H (test code = 6768-6) AST (test code = 45 U/L 5-34 H 1920-8) ALT (test code = 35 U/L 6-55 1742-6) SOPHIA (test code = SOPHIA) Drop 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 ID - ANSLEY B Lab Interpretation Abnormal (test code = 82207-5) [facility] [id number] 13:26:49 Test Item Value Reference Range Interpretation Comments Protein, Total (test 6.6 See_Comment [Autom ated code = 2885-2) message] The system which generated this result transmit manoj reference range : 6.0 - 8.3 gm/dL . The reference range was not u sed to interpret th is result as normal/abnormal . Albumin (test code = 3.5 g/dL 3.5-5.0 04709-6) Total Bilirubin (test 2.0 mg/dL 0.2-1.2 H code = 1974-2) Bilirubin, Direct 1.5 mg/dL 0.1-0.5 H (test code = 1967-) Alkaline Phosphatase 205 U/L 40-150 H (test code = 6768-6) AST (test code = 45 U/L 5-34 H 1920-8) ALT (test code = 35 U/L 6-55 1742-6) SOPHIA (test code = SOPHIA) Drop 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 ID - ANSLEY B Lab Interpretation Abnormal (test code = 92380-2) [facility] [id number] 13:26:49 Test Item Value Reference Range Interpretation Comments Protein, Total (test 6.6 See_Comment [Autom ated code = 2885-2) message] The system which generated this result transmit manoj reference range : 6.0 - 8.3 gm/dL . The reference range was not u sed to interpret th is result as normal/abnormal . Albumin (test code = 3.5 g/dL 3.5-5.0 09064-6) Total Bilirubin (test 2.0 mg/dL 0.2-1.2 H code = 1974-) Bilirubin, Direct 1.5 mg/dL 0.1-0.5 H (test code = 1967-) Alkaline Phosphatase 205 U/L 40-150 H (test code = 6768-6) AST (test code = 45 U/L 5-34 H 192-8) ALT (test code = 35 U/L 6-55 1742-6) SOPHIA (test code = SOPHIA) Drop 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 ID - ANSLEY B Lab Interpretation Abnormal (test code = 72217-8) [facility] [id number] 13:26:49 Test Item Value Reference Range Interpretation Comments Protein, Total (test 6.6 See_Comment [Autom ated code = 2885-2) message] The system which generated this result transmit manoj reference range : 6.0 - 8.3 gm/dL . The reference range was not u sed to interpret th is result as normal/abnormal . Albumin (test code = 3.5 g/dL 3.5-5.0 58411-2) Total Bilirubin (test 2.0 mg/dL 0.2-1.2 H code = 1974-) Bilirubin, Direct 1.5 mg/dL 0.1-0.5 H (test code = 1967-) Alkaline Phosphatase 205 U/L 40-150 H (test code = 6768-6) AST (test code = 45 U/L 5-34 H 1920-8) ALT (test code = 35 U/L 6-55 1742-6) SOPHIA (test code = SOPHIA) Drop 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 ID - ANSLEY B Lab Interpretation Abnormal (test code = 70098-0) [facility] [id number] 13:26:49 Test Item Value Reference Range Interpretation Comments Protein, Total (test 6.6 See_Comment [Autom ated code = 2885-2) message] The system which generated this result transmit manoj reference range : 6.0 - 8.3 gm/dL . The reference range was not u sed to interpret th is result as normal/abnormal . Albumin (test code = 3.5 g/dL 3.5-5.0 01766-5) Total Bilirubin (test 2.0 mg/dL 0.2-1.2 H code = 1974-) Bilirubin, Direct 1.5 mg/dL 0.1-0.5 H (test code = 1967-) Alkaline Phosphatase 205 U/L 40-150 H (test code = 6768-6) AST (test code = 45 U/L 5-34 H 1920-8) ALT (test code = 35 U/L 6-55 1742-6) SOPHIA (test code = SOPHIA) Drop 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 ID - ANSLEY B Lab Interpretation Abnormal (test code = 64061-9) [facility] [id number] 13:26:49 Test Item Value Reference Range Interpretation Comments Protein, Total (test 6.6 See_Comment [Autom ated code = 2885-2) message] The system which generated this result transmit manoj reference range : 6.0 - 8.3 gm/dL . The reference range was not u sed to interpret th is result as normal/abnormal . Albumin (test code = 3.5 g/dL 3.5-5.0 25137-6) Total Bilirubin (test 2.0 mg/dL 0.2-1.2 H code = 1974-) Bilirubin, Direct 1.5 mg/dL 0.1-0.5 H (test code = 1967-7) Alkaline Phosphatase 205 U/L 40-150 H (test code = 6768-6) AST (test code = 45 U/L 5-34 H 1920-8) ALT (test code = 35 U/L 6-55 1742-6) SOPHIA (test code = SOPHIA) Drop 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 ID - ANSLEY B Lab Interpretation Abnormal (test code = 52874-5) [facility] [id number] 13:26:49 Test Item Value Reference Range Interpretation Comments Protein, Total (test 6.6 See_Comment [Autom ated code = 2885-2) message] The system which generated this result transmit manoj reference range : 6.0 - 8.3 gm/dL . The reference range was not u sed to interpret th is result as normal/abnormal . Albumin (test code = 3.5 g/dL 3.5-5.0 63499-5) Total Bilirubin (test 2.0 mg/dL 0.2-1.2 H code = 1974-) Bilirubin, Direct 1.5 mg/dL 0.1-0.5 H (test code = 1967-) Alkaline Phosphatase 205 U/L 40-150 H (test code = 6768-6) AST (test code = 45 U/L 5-34 H 1919-8) ALT (test code = 35 U/L 6-55 1742-6) SOPHIA (test code = SOPHIA) Drop 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 ID - ANSLEY B Lab Interpretation Abnormal (test code = 20760-9) [facility] [id number] 13:26:49 Test Item Value Reference Range Interpretation Comments Protein, Total (test 6.6 See_Comment [Autom ated code = 2885-2) message] The system which generated this result transmit manoj reference range : 6.0 - 8.3 gm/dL . The reference range was not u sed to interpret th is result as normal/abnormal . Albumin (test code = 3.5 g/dL 3.5-5.0 80138-5) Total Bilirubin (test 2.0 mg/dL 0.2-1.2 H code = 1974-) Bilirubin, Direct 1.5 mg/dL 0.1-0.5 H (test code = 1967-) Alkaline Phosphatase 205 U/L 40-150 H (test code = 6768-6) AST (test code = 45 U/L 5-34 H 1920-8) ALT (test code = 35 U/L 6-55 1742-6) SOPHIA (test code = SOPHIA) Drop 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 ID - ANSLEY B Lab Interpretation Abnormal (test code = 48867-3) [facility] [id number] 13:26:49 Test Item Value Reference Range Interpretation Comments Protein, Total (test 6.6 See_Comment [Autom ated code = 2885-2) message] The system which generated this result transmit manoj reference range : 6.0 - 8.3 gm/dL . The reference range was not u sed to interpret th is result as normal/abnormal . Albumin (test code = 3.5 g/dL 3.5-5.0 08126-7) Total Bilirubin (test 2.0 mg/dL 0.2-1.2 H code = 1975-2) Bilirubin, Direct 1.5 mg/dL 0.1-0.5 H (test code = 1968-7) Alkaline Phosphatase 205 U/L 40-150 H (test code = 6768-6) AST (test code = 45 U/L 5-34 H 1920-8) ALT (test code = 35 U/L 6-55 1742-6) SOPHIA (test code = SOPHIA) Drop 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 ID - ANSLEY B Lab Interpretation Abnormal (test code = 80099-9) [facility] [id number] 13:26:49 Test Item Value Reference Range Interpretation Comments TOTAL PROTEIN (BEAKER) (test code = 6.6 gm/dL 6.0-8.3 770) ALBUMIN (BEAKER) (test code = 1145) 3.5 g/dL 3.5-5.0 BILIRUBIN TOTAL (BEAKER) (test code 2.0 mg/dL 0.2-1.2 H = 377) BILIRUBIN DIRECT (BEAKER) (test 1.5 mg/dL 0.1-0.5 H code = 706) ALKALINE PHOSPHATASE (BEAKER) (test 205 U/L 40-150 H code = 346) AST (SGOT) (BEAKER) (test code = 45 U/L 5-34 H 353) ALT (SGPT) (BEAKER) (test code = 35 U/L 6-55 347) Drop 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 ID - ANSLEY [id number] 13:26:48 Test Item Value Reference Range Interpretation Comments MAGNESIUM (BEAKER) (test code = 1.8 mg/dL 1.6-2.6 627) Drop 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 ID - ANSLEY [id number] 12:28:48 Test Item Value Reference Range Interpretation Comments PHOSPHORUS (BEAKER) (test code = 2.7 mg/dL 2.3-4.7 604) Drop 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 ID - SARAH MCOMPREHENSIVE METABOLIC [id number] 12:28:47 Test Item Value Reference Range Interpretation Comments TOTAL PROTEIN 6.6 gm/dL 6.0-8.3 (BEAKER) (test code = 770) ALBUMIN (BEAKER) 3.5 g/dL 3.5-5.0 (test code = 1145) ALKALINE PHOSPHATASE 205 U/L 40-150 H (BEAKER) (test code = 346) BILIRUBIN TOTAL 2.1 mg/dL 0.2-1.2 H (BEAKER) (test code = 377) SODIUM (BEAKER) (test 134 meq/L 136-145 L code = 381) POTASSIUM (BEAKER) 3.4 meq/L 3.5-5.1 L (test code = 379) CHLORIDE (BEAKER) 93 meq/L 98-107 L (test code = 382) CO2 (BEAKER) (test 28 meq/L 22-29 code = 355) BLOOD UREA NITROGEN 47 mg/dL 7-21 H (BEAKER) (test code = 354) CREATININE (BEAKER) 1.80 mg/dL 0.57-1.25 H (test code = 358) GLUCOSE RANDOM 74 mg/dL 70-105 (BEAKER) (test code = 652) CALCIUM (BEAKER) 8.3 mg/dL 8.4-10.2 L (test code = 697) AST (SGOT) (BEAKER) 42 U/L 5-34 H (test code = 353) ALT (SGPT) (BEAKER) 33 U/L 6-55 (test code = 347) EGFR (BEAKER) (test 30 mL/min/1.73 ESTIMA MANOJ GFR IS code = 1092) sq m NOT ACCURATE CREATININE CLEARANCE IN PREDICTING GLOMERULAR FILTRATION RATE . ESTIMATED GFR I S NOT APPLICABLE FOR DIALYSIS PATIEN TS. Drop 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 ID - SARAH MPOCT-GLUCOSE [id number] 11:20:01 Test Item Value Reference Range Interpretation Comments POC-GLUCOSE METER 117 mg/dL 70-110 H : TESTED A T [facility] [address] (BEAKER) (test code = KENYA Mcmullen [place], 1538) [address]: Drop 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/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 ID = [id number] for ANTONIO JUSTICE POCT-GLUCOSE [id number] 07:43:17 Test Item Value Reference Range Interpretation Comments POC-GLUCOSE METER 79 mg/dL 70-110 : TESTED A T [facility] 6720 (BEAKER) (test code = KENYA Mcmullen [place], 1538) [address]: Drop 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/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 ID = [id number] for Neyda potts (contract)Carli CALCIUM, [id number] 06:50:26 Test Item Value Reference Range Interpretation Comments CALCIUM IONIZED (BEAKER) (test 0.98 mmol/L 1.12-1.27 L code = 698) PH, BLOOD (BEAKER) (test code = 7.43 1810) CBC W/PLT COUNT & AUTO [id number] 06:46:11 Test Item Value Reference Range Interpretation Comments WHITE BLOOD CELL COUNT (BEAKER) 7.8 K/ L 3.5-10.5 (test code = 775) RED BLOOD CELL COUNT (BEAKER) 4.08 M/ L 3.93-5.22 (test code = 761) HEMOGLOBIN (BEAKER) (test code = 11.2 GM/DL 11.2-15.7 410) HEMATOCRIT (BEAKER) (test code = 32.9 % 34.1-44.9 L 411) MEAN CORPUSCULAR VOLUME (BEAKER) 80.6 fL 79.4-94.8 (test code = 753) MEAN CORPUSCULAR HEMOGLOBIN 27.5 pg 25.6-32.2 (BEAKER) (test code = 751) MEAN CORPUSCULAR HEMOGLOBIN CONC 34.0 GM/DL 32.2-35.5 (BEAKER) (test code = 752) RED CELL DISTRIBUTION WIDTH 13.8 % 11.7-14.4 (BEAKER) (test code = 412) PLATELET COUNT (BEAKER) (test 257 K/CU MM 150-450 code = 756) MEAN PLATELET VOLUME (BEAKER) 10.4 fL 9.4-12.3 (test code = 754) NUCLEATED RED BLOOD CELLS 0 /100 WBC 0-0 (BEAKER) (test code = 413) NEUTROPHILS RELATIVE PERCENT 62 % (BEAKER) (test code = 429) LYMPHOCYTES RELATIVE PERCENT 27 % (BEAKER) (test code = 430) MONOCYTES RELATIVE PERCENT 8 % (BEAKER) (test code = 431) EOSINOPHILS RELATIVE PERCENT 2 % (BEAKER) (test code = 432) BASOPHILS RELATIVE PERCENT 0 % (BEAKER) (test code = 437) NEUTROPHILS ABSOLUTE COUNT 4.84 K/ L 1.56-6.13 (BEAKER) (test code = 670) LYMPHOCYTES ABSOLUTE COUNT 2.07 K/ L 1.18-3.74 (BEAKER) (test code = 414) MONOCYTES ABSOLUTE COUNT (BEAKER) 0.64 K/ L 0.24-0.36 H (test code = 415) EOSINOPHILS ABSOLUTE COUNT 0.16 K/ L 0.04-0.36 (BEAKER) (test code = 416) BASOPHILS ABSOLUTE COUNT (BEAKER) 0.03 K/ L 0.01-0.08 (test code = 417) IMMATURE GRANULOCYTES-RELATIVE 1 % 0-1 PERCENT (BEAKER) (test code = 2801) POCT-GLUCOSE [id number] 21:36:20 Test Item Value Reference Range Interpretation Comments POC-GLUCOSE METER 116 mg/dL 70-110 H : TESTED A T [facility] [address] (BEAKER) (test code = KENYA [place], 1538) [address]: Drop 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/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 ID = [id number] for ASIA FLOWERS Basic Metabolic [id number] 19:39:40 Test Item Value Reference Range Interpretation Comments Sodium (test code = 131 meq/L 136-145 L 2951-2) Potassium (test code = 3.3 meq/L 3.5-5.1 L 2823-3) Chloride (test code = 90 meq/L 98-107 L 2075-0) CO2 (test code = 26 meq/L 22-29 2028-9) BUN (test code = 67 mg/dL 7-21 H 3094-0) Creatinine (test code 2.95 mg/dL 0.57-1.25 H = 2160-0) Glucose (test code = 98 mg/dL 70-105 2345-7) Calcium (test code = 8.0 mg/dL 8.4-10.2 L 59134-8) EGFR (test code = 17 mL/min/1.73 [place] [address]-4) NOT ACCURATE CREATININE CLEARANCE IN PREDICTING GLOMERULAR FILTRATION RATE . ESTIMATED GFR I S NOT APPLICABLE FOR DIALYSIS PATIENTS. SOPHIA (test code = SOPHIA) Drop 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 ID - BS Lab Interpretation Abnormal (test code = 45576-3) [facility] Metabolic [id number] 19:39:40 Test Item Value Reference Range Interpretation Comments Sodium (test code = 131 meq/L 136-145 L 2951-2) Potassium (test code = 3.3 meq/L 3.5-5.1 L 2823-3) Chloride (test code = 90 meq/L 98-107 L 2075-0) CO2 (test code = 26 meq/L -2027-9) BUN (test code = 67 mg/dL 7-21 H 3094-0) Creatinine (test code 2.95 mg/dL 0.57-1.25 H = 2160-0) Glucose (test code = 98 mg/dL 70-105 2345-7) Calcium (test code = 8.0 mg/dL 8.4-10.2 L 33425-6) EGFR (test code = 17 mL/min/1.73 [place] [address]-5) NOT ACCURATE CREATININE CLEARANCE IN PREDICTING GLOMERULAR FILTRATION RATE . ESTIMATED GFR I S NOT APPLICABLE FOR DIALYSIS PATIENTS. SOPHIA (test code = SOPHIA) Drop 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 ID - BS Lab Interpretation Abnormal (test code = 31169-5) [facility] Metabolic [id number] 19:39:40 Test Item Value Reference Range Interpretation Comments Sodium (test code = 131 meq/L 136-145 L 2951-2) Potassium (test code = 3.3 meq/L 3.5-5.1 L 2823-3) Chloride (test code = 90 meq/L 98-107 L 2075-0) CO2 (test code = 26 meq/L -2027-9) BUN (test code = 67 mg/dL 7-21 H 3094-0) Creatinine (test code 2.95 mg/dL 0.57-1.25 H = 2160-0) Glucose (test code = 98 mg/dL 70-105 2345-7) Calcium (test code = 8.0 mg/dL 8.4-10.2 L 35993-5) EGFR (test code = 17 mL/min/1.73 [place] [address]-2) NOT ACCURATE CREATININE CLEARANCE IN PREDICTING GLOMERULAR FILTRATION RATE . ESTIMATED GFR I S NOT APPLICABLE FOR DIALYSIS PATIENTS. SOPHIA (test code = SOPHIA) Drop 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 ID - BS Lab Interpretation Abnormal (test code = 03278-3) [facility] Metabolic [id number] 19:39:40 Test Item Value Reference Range Interpretation Comments Sodium (test code = 131 meq/L 136-145 L 2951-2) Potassium (test code = 3.3 meq/L 3.5-5.1 L 2823-3) Chloride (test code = 90 meq/L 98-107 L 2075-0) CO2 (test code = 26 meq/L -2027-9) BUN (test code = 67 mg/dL 7-21 H 3094-0) Creatinine (test code 2.95 mg/dL 0.57-1.25 H = 2160-0) Glucose (test code = 98 mg/dL 70-105 2345-7) Calcium (test code = 8.0 mg/dL 8.4-10.2 L 84524-5) EGFR (test code = 17 mL/min/1.73 [place] [address]-9) NOT ACCURATE CREATININE CLEARANCE IN PREDICTING GLOMERULAR FILTRATION RATE . ESTIMATED GFR I S NOT APPLICABLE FOR DIALYSIS PATIENTS. SOPHIA (test code = SOPHIA) Drop 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 ID - BS Lab Interpretation Abnormal (test code = 19707-4) [facility] Metabolic [id number] 19:39:40 Test Item Value Reference Range Interpretation Comments Sodium (test code = 131 meq/L 136-145 L 2951-2) Potassium (test code = 3.3 meq/L 3.5-5.1 L 2823-3) Chloride (test code = 90 meq/L 98-107 L 2075-0) CO2 (test code = 26 meq/L -29 2027-9) BUN (test code = 67 mg/dL 7-21 H 3094-0) Creatinine (test code 2.95 mg/dL 0.57-1.25 H = 2160-0) Glucose (test code = 98 mg/dL 70-105 2345-7) Calcium (test code = 8.0 mg/dL 8.4-10.2 L 58254-9) EGFR (test code = 17 mL/min/1.[place] [address]-0) NOT ACCURATE CREATININE CLEARANCE IN PREDICTING GLOMERULAR FILTRATION RATE . ESTIMATED GFR I S NOT APPLICABLE FOR DIALYSIS PATIENTS. SOPHIA (test code = SOPHIA) Drop 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 ID - BS Lab Interpretation Abnormal (test code = 57603-9) [facility] Metabolic [id number] 19:39:40 Test Item Value Reference Range Interpretation Comments Sodium (test code = 131 meq/L 136-145 L 2951-2) Potassium (test code = 3.3 meq/L 3.5-5.1 L 2823-3) Chloride (test code = 90 meq/L 98-107 L 2075-0) CO2 (test code = 26 meq/L -8-9) BUN (test code = 67 mg/dL 7-21 H 3094-0) Creatinine (test code 2.95 mg/dL 0.57-1.25 H = 2160-0) Glucose (test code = 98 mg/dL 70-105 2345-7) Calcium (test code = 8.0 mg/dL 8.4-10.2 L 25778-1) EGFR (test code = 17 mL/min/1.73 [place] [address]-5) NOT ACCURATE CREATININE CLEARANCE IN PREDICTING GLOMERULAR FILTRATION RATE . ESTIMATED GFR I S NOT APPLICABLE FOR DIALYSIS PATIENTS. SOPHIA (test code = SOPHIA) Drop 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 ID - BS Lab Interpretation Abnormal (test code = 69844-2) [facility] Metabolic [id number] 19:39:40 Test Item Value Reference Range Interpretation Comments Sodium (test code = 131 meq/L 136-145 L 2951-2) Potassium (test code = 3.3 meq/L 3.5-5.1 L 2823-3) Chloride (test code = 90 meq/L 98-107 L 2075-0) CO2 (test code = 26 meq/L 22-29 2028-9) BUN (test code = 67 mg/dL 7-21 H 3094-0) Creatinine (test code 2.95 mg/dL 0.57-1.25 H = 2160-0) Glucose (test code = 98 mg/dL 70-105 2345-7) Calcium (test code = 8.0 mg/dL 8.4-10.2 L 76897-1) EGFR (test code = 17 mL/min/1.73 [place] [address]-0) NOT ACCURATE CREATININE CLEARANCE IN PREDICTING GLOMERULAR FILTRATION RATE . ESTIMATED GFR I S NOT APPLICABLE FOR DIALYSIS PATIENTS. SOPHIA (test code = SOPHIA) Drop 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 ID - BS Lab Interpretation Abnormal (test code = 69423-3) [facility] Metabolic [id number] 19:39:40 Test Item Value Reference Range Interpretation Comments Sodium (test code = 131 meq/L 136-145 L 2951-2) Potassium (test code = 3.3 meq/L 3.5-5.1 L 2823-3) Chloride (test code = 90 meq/L 98-107 L 2075-0) CO2 (test code = 26 meq/L -8-9) BUN (test code = 67 mg/dL 7-21 H 3094-0) Creatinine (test code 2.95 mg/dL 0.57-1.25 H = 2160-0) Glucose (test code = 98 mg/dL 70-105 2345-7) Calcium (test code = 8.0 mg/dL 8.4-10.2 L 55500-8) EGFR (test code = 17 mL/min/1.73 [place] [address]-1) NOT ACCURATE CREATININE CLEARANCE IN PREDICTING GLOMERULAR FILTRATION RATE . ESTIMATED GFR I S NOT APPLICABLE FOR DIALYSIS PATIENTS. SOPHIA (test code = SOPHIA) Drop 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 ID - BS Lab Interpretation Abnormal (test code = 46765-3) [facility] Metabolic [id number] 19:39:40 Test Item Value Reference Range Interpretation Comments Sodium (test code = 131 meq/L 136-145 L 2951-2) Potassium (test code = 3.3 meq/L 3.5-5.1 L 2823-3) Chloride (test code = 90 meq/L 98-107 L 2075-0) CO2 (test code = 26 meq/L -29 8-9) BUN (test code = 67 mg/dL 7-21 H 3094-0) Creatinine (test code 2.95 mg/dL 0.57-1.25 H = 2160-0) Glucose (test code = 98 mg/dL 70-105 2345-7) Calcium (test code = 8.0 mg/dL 8.4-10.2 L 38832-9) EGFR (test code = 17 mL/min/1.73 [place] [address]-2) NOT ACCURATE CREATININE CLEARANCE IN PREDICTING GLOMERULAR FILTRATION RATE . ESTIMATED GFR I S NOT APPLICABLE FOR DIALYSIS PATIENTS. SOPHIA (test code = SOPHIA) Drop 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 ID - BS Lab Interpretation Abnormal (test code = 35097-7) [facility] METABOLIC [id number] 19:39:40 Test Item Value Reference Range Interpretation Comments SODIUM (BEAKER) 131 meq/L 136-145 L (test code = 381) POTASSIUM (BEAKER) 3.3 meq/L 3.5-5.1 L (test code = 379) CHLORIDE (BEAKER) 90 meq/L 98-107 L (test code = 382) CO2 (BEAKER) (test 26 meq/L 22-29 code = 355) BLOOD UREA NITROGEN 67 mg/dL 7-21 H (BEAKER) (test code = 354) CREATININE (BEAKER) 2.95 mg/dL 0.57-1.25 H (test code = 358) GLUCOSE RANDOM 98 mg/dL 70-105 (BEAKER) (test code = 652) CALCIUM (BEAKER) 8.0 mg/dL 8.4-10.2 L (test code = 697) EGFR (BEAKER) (test 17 mL/min/1.73 ESTIMA MANOJ GFR IS code = 1092) sq m NOT ACCURATE CREATININE CLEARANCE IN PREDICTING GLOMERULAR FILTRATION RATE . ESTIMATED GFR I S NOT APPLICABLE FOR DIALYSIS PATIEN TS. Drop 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 ID - BSPOCT-GLUCOSE [id number] 17:21:38 Test Item Value Reference Range Interpretation Comments POC-GLUCOSE METER 97 mg/dL 70-110 : TESTED A T [facility] 67[address] (BEAKER) (test code = KENYA QU[place]ON[place], 1538) [address]: Drop 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/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 ID = [id number] for TEREZA JUNE POCT-GLUCOSE [id number] 12:06:11 Test Item Value Reference Range Interpretation Comments POC-GLUCOSE METER 92 mg/dL 70-110 : TESTED A T [facility] 6720 (BEAKER) (test code = KENYA Mcmullen [place], 1538) [address]: Drop 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/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 ID = [id number] for TEREZA JUNE POCT-GLUCOSE [id number] 07:53:32 Test Item Value Reference Range Interpretation Comments POC-GLUCOSE METER 80 mg/dL 70-110 : TESTED A T [facility] 6720 (BEAKER) (test code = KENYA Mcmullen [place], 1538) [address]: Drop 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/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 ID = [id number] for TEREZA JUNE BASIC METABOLIC [id number] 04:45:01 Test Item Value Reference Range Interpretation Comments SODIUM (BEAKER) 129 meq/L 136-145 L (test code = 381) POTASSIUM (BEAKER) 3.4 meq/L 3.5-5.1 L (test code = 379) CHLORIDE (BEAKER) 88 meq/L 98-107 L (test code = 382) CO2 (BEAKER) (test 23 meq/L 22-29 code = 355) BLOOD UREA NITROGEN 92 mg/dL 7-21 H (BEAKER) (test code = 354) CREATININE (BEAKER) 5.28 mg/dL 0.57-1.25 H (test code = 358) GLUCOSE RANDOM 89 mg/dL 70-105 (BEAKER) (test code = 652) CALCIUM (BEAKER) 8.4 mg/dL 8.4-10.2 (test code = 697) EGFR (BEAKER) (test 9 mL/min/1.73 ESTIMAT ED GFR IS code = 1092) sq m NOT ACCURATE CREATININE CLEARANCE IN PREDICTING GLOMERULAR FILTRATION RATE . ESTIMATED GFR I S NOT APPLICABLE FOR DIALYSIS PATIEN TS. Drop 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 ID - PIAYA [id number] 04:32:35 Test Item Value Reference Range Interpretation Comments PHOSPHORUS (BEAKER) (test code = 8.7 mg/dL 2.3-4.7 H 604) Drop 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 ID - PIAYA LHEPATIC FUNCTION [id number] 04:32:35 Test Item Value Reference Range Interpretation Comments TOTAL PROTEIN (BEAKER) (test code = 6.9 gm/dL 6.0-8.3 770) ALBUMIN (BEAKER) (test code = 1145) 3.6 g/dL 3.5-5.0 BILIRUBIN TOTAL (BEAKER) (test code 2.4 mg/dL 0.2-1.2 H = 377) BILIRUBIN DIRECT (BEAKER) (test 1.8 mg/dL 0.1-0.5 H code = 706) ALKALINE PHOSPHATASE (BEAKER) (test 234 U/L 40-150 H code = 346) AST (SGOT) (BEAKER) (test code = 45 U/L 5-34 H 353) ALT (SGPT) (BEAKER) (test code = 40 U/L 6-55 347) Drop 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 ID - JM [id number] 04:32:34 Test Item Value Reference Range Interpretation Comments MAGNESIUM (BEAKER) (test code = 2.2 mg/dL 1.6-2.6 627) Drop 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 ID - JM LB-type Natriuretic Factor (BNP)2021-07-08 04:16:09 Test Item Value Reference Range Interpretation Comments BNP (test code = 56479-6) 69 pg/mL 0-100 SOPHIA (test code = SOPHIA) Drop 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 ID - JM L Lab Interpretation (test Normal code = 63577-0) [facility] 04:16:09 Test Item Value Reference Range Interpretation Comments BNP (test code = 54066-2) 69 pg/mL 0-100 SOPHIA (test code = SOPHIA) Drop 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 ID - SAMEERAARMANDO L Lab Interpretation (test Normal code = 60632-3) [facility]2021-07-08 04:16:09 Test Item Value Reference Range Interpretation Comments BNP (test code = 67002-0) 69 pg/mL 0-100 SOPHIA (test code = SOPHIA) Drop 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 ID - PIARMANDO L Lab Interpretation (test Normal code = 17304-6) [facility]2021-07-08 04:16:09 Test Item Value Reference Range Interpretation Comments BNP (test code = 19367-5) 69 pg/mL 0-100 SOPHIA (test code = SOPHIA) Drop 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 ID - PIARMANDO L Lab Interpretation (test Normal code = 29107-7) [facility]2021-07-08 04:16:09 Test Item Value Reference Range Interpretation Comments BNP (test code = 51548-2) 69 pg/mL 0-100 SOPHIA (test code = SOPHIA) Drop 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 ID - PIAYA L Lab Interpretation (test Normal code = 93577-2) [facility]2021-07-08 04:16:09 Test Item Value Reference Range Interpretation Comments BNP (test code = 37515-0) 69 pg/mL 0-100 SOPHIA (test code = SOPHIA) Drop 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 ID - PIAYA L Lab Interpretation (test Normal code = 13122-6) [facility]2021-07-08 04:16:09 Test Item Value Reference Range Interpretation Comments BNP (test code = 29973-7) 69 pg/mL 0-100 SOPHIA (test code = SOPHIA) Drop 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 ID - PIAYA L Lab Interpretation (test Normal code = 06149-4) [facility]2021-07-08 04:16:09 Test Item Value Reference Range Interpretation Comments BNP (test code = 77390-7) 69 pg/mL 0-100 SOPHIA (test code = SOPHIA) Drop 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 ID - PIAYA L Lab Interpretation (test Normal code = 13504-4) [facility]NP)2021-07-08 04:16:09 Test Item Value Reference Range Interpretation Comments BNP (test code = 25646-6) 69 pg/mL 0-100 SOPHIA (test code = SOPHIA) Drop 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 ID - PIAYA L Lab Interpretation (test Normal code = 97153-1) [facility] (BNP)2021-07-08 04:16:09 Test Item Value Reference Range Interpretation Comments B-TYPE NATRIURETIC PEPTIDE (BEAKER) 69 pg/mL 0-100 (test code = 700) Drop 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 ID - SAMEERAAYA LCBC W/PLT COUNT & AUTO [id number] 04:07:18 Test Item Value Reference Range Interpretation Comments WHITE BLOOD CELL COUNT (BEAKER) 11.5 K/ L 3.5-10.5 H (test code = 775) RED BLOOD CELL COUNT (BEAKER) 4.26 M/ L 3.93-5.22 (test code = 761) HEMOGLOBIN (BEAKER) (test code = 11.7 GM/DL 11.2-15.7 410) HEMATOCRIT (BEAKER) (test code = 33.9 % 34.1-44.9 L 411) MEAN CORPUSCULAR VOLUME (BEAKER) 79.6 fL 79.4-94.8 (test code = 753) MEAN CORPUSCULAR HEMOGLOBIN 27.5 pg 25.6-32.2 (BEAKER) (test code = 751) MEAN CORPUSCULAR HEMOGLOBIN CONC 34.5 GM/DL 32.2-35.5 (BEAKER) (test code = 752) RED CELL DISTRIBUTION WIDTH 13.8 % 11.7-14.4 (BEAKER) (test code = 412) PLATELET COUNT (BEAKER) (test 291 K/CU MM 150-450 code = 756) MEAN PLATELET VOLUME (BEAKER) 10.3 fL 9.4-12.3 (test code = 754) NUCLEATED RED BLOOD CELLS 0 /100 WBC 0-0 (BEAKER) (test code = 413) NEUTROPHILS RELATIVE PERCENT 83 % (BEAKER) (test code = 429) LYMPHOCYTES RELATIVE PERCENT 12 % (BEAKER) (test code = 430) MONOCYTES RELATIVE PERCENT 5 % (BEAKER) (test code = 431) EOSINOPHILS RELATIVE PERCENT 0 % (BEAKER) (test code = 432) BASOPHILS RELATIVE PERCENT 0 % (BEAKER) (test code = 437) NEUTROPHILS ABSOLUTE COUNT 9.45 K/ L 1.56-6.13 H (BEAKER) (test code = 670) LYMPHOCYTES ABSOLUTE COUNT 1.33 K/ L 1.18-3.74 (BEAKER) (test code = 414) MONOCYTES ABSOLUTE COUNT (BEAKER) 0.60 K/ L 0.24-0.36 H (test code = 415) EOSINOPHILS ABSOLUTE COUNT 0.01 K/ L 0.04-0.36 L (BEAKER) (test code = 416) BASOPHILS ABSOLUTE COUNT (BEAKER) 0.02 K/ L 0.01-0.08 (test code = 417) IMMATURE GRANULOCYTES-RELATIVE 0 % 0-1 PERCENT (BEAKER) (test code = 2801) Eosinophil [id number] 22:06:29 Test Item Value Reference Range Interpretation Comments Eosinophil Smear (test code = No EOS seen No EOS seen 03569-3) Lab Interpretation (test code = Normal 75835-8) [facility] [id number] 22:06:29 Test Item Value Reference Range Interpretation Comments Eosinophil Smear (test code = No EOS seen No EOS seen 09762-5) Lab Interpretation (test code = Normal 31844-2) [facility] [id number] 22:06:29 Test Item Value Reference Range Interpretation Comments Eosinophil Smear (test code = No EOS seen No EOS seen 82811-4) Lab Interpretation (test code = Normal 35893-9) [facility] [id number] 22:06:29 Test Item Value Reference Range Interpretation Comments Eosinophil Smear (test code = No EOS seen No EOS seen 30524-7) Lab Interpretation (test code = Normal 24854-0) [facility] [id number] 22:06:29 Test Item Value Reference Range Interpretation Comments Eosinophil Smear (test code = No EOS seen No EOS seen 57832-6) Lab Interpretation (test code = Normal 60040-1) [facility] [id number] 22:06:29 Test Item Value Reference Range Interpretation Comments Eosinophil Smear (test code = No EOS seen No EOS seen 38272-0) Lab Interpretation (test code = Normal 18191-7) [facility] [id number] 22:06:29 Test Item Value Reference Range Interpretation Comments Eosinophil Smear (test code = No EOS seen No EOS seen 36497-9) Lab Interpretation (test code = Normal 19295-1) [facility] [id number] 22:06:29 Test Item Value Reference Range Interpretation Comments Eosinophil Smear (test code = No EOS seen No EOS seen 44767-4) Lab Interpretation (test code = Normal 17696-9) [facility] [id number] 22:06:29 Test Item Value Reference Range Interpretation Comments Eosinophil Smear (test code = No EOS seen No EOS seen 45909-8) Lab Interpretation (test code = Normal 24859-0) [facility] CenterEOSINOPHIL SMEAR, [id number] 22:06:29 Test Item Value Reference Range Interpretation Comments EOSINOPHIL SMEAR, URINE (BEAKER) No EOS seen No EOS seen (test code = 1851) BASIC METABOLIC [id number] 21:49:52 Test Item Value Reference Range Interpretation Comments SODIUM (BEAKER) 126 meq/L 136-145 L (test code = 381) POTASSIUM (BEAKER) 4.2 meq/L 3.5-5.1 Specimen slightly (test code = 379) hemolyzed CHLORIDE (BEAKER) 86 meq/L 98-107 L (test code = 382) CO2 (BEAKER) (test 18 meq/L 22-29 L code = 355) BLOOD UREA NITROGEN 96 mg/dL 7-21 H (BEAKER) (test code = 354) CREATININE (BEAKER) 6.57 mg/dL 0.57-1.25 H Specimen slightly (test code = 358) hemolyzed GLUCOSE RANDOM 113 mg/dL 70-105 H (BEAKER) (test code = 652) CALCIUM (BEAKER) 8.5 mg/dL 8.4-10.2 (test code = 697) EGFR (BEAKER) (test 7 mL/min/1.73 ESTIMAT ED GFR IS code = 1092) sq m NOT ACCURATE CREATININE CLEARANCE IN PREDICTING GLOMERULAR FILTRATION RATE . ESTIMATED GFR I S NOT APPLICABLE FOR DIALYSIS PATIEN TS. 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 INDICATION: 51-year-old woman with acute kidney injury. COMPARISON: Abdomen and pelvis CT 06/23/2021. FINDINGS:RIGHT KIDNEY: Right kidney measures 12.3 x 4.9 x 5.1 cm with cortical thickness of 1.3 cm. No solid mass. No hydronephrosis. Renal artery and vein are patent. LEFT KIDNEY: Suboptimal evaluation of the left kidney. Left kidney measures 10.6 x 5.9 x 6.1 cm with cortical thickness of 1.5 cm. Questionablemild increase in echogenicity of the left kidney. No solid mass. No hydronephrosis. Renal artery andvein are patent. BLADDER: Bladder is underdistended. IMPRESSION:No hydronephrosis. Suboptimal evaluation of the left kidney. Questionable mild increase in echogenicity of the left kidney, which may be seen with medical renal disease. Signed: Mala Meeks MDReport Verified Date/Time: 07/07/2021 21:46:13 Sodium, random [id number] 21:42:01 Test Item Value Reference Range Interpretation Comments Sodium Urine (test <20 meq/L code = 2955-3) SOPHIA (test code = Reference Range: No SOPHIA) NormalsOperator ID - DB [facility] [id number] 21:42:01 Test Item Value Reference Range Interpretation Comments Sodium Urine (test <20 meq/L code = 2955-3) SOPHIA (test code = Reference Range: No SOPHIA) NormalsOperator ID - DB [facility] random [id number] 21:42:01 Test Item Value Reference Range Interpretation Comments Sodium Urine (test <20 meq/L code = 2955-3) SOPHIA (test code = Reference Range: No SOPHIA) NormalsOperator ID - DB [facility] [id number] 21:42:01 Test Item Value Reference Range Interpretation Comments Sodium Urine (test <20 meq/L code = 2955-3) SOPHIA (test code = Reference Range: No SOPHIA) NormalsOperator ID - DB [facility] random [id number] 21:42:01 Test Item Value Reference Range Interpretation Comments Sodium Urine (test <20 meq/L code = 2955-3) SOPHIA (test code = Reference Range: No SOPHIA) NormalsOperator ID - DB [facility] [id number] 21:42:01 Test Item Value Reference Range Interpretation Comments Sodium Urine (test <20 meq/L code = 2955-3) SOPHIA (test code = Reference Range: No SOPHIA) NormalsOperator ID - DB [facility] [id number] 21:42:01 Test Item Value Reference Range Interpretation Comments Sodium Urine (test <20 meq/L code = 2955-3) SOPHIA (test code = Reference Range: No SOPHIA) NormalsOperator ID - DB [facility] random [id number] 21:42:01 Test Item Value Reference Range Interpretation Comments Sodium Urine (test <20 meq/L code = 2955-3) SOPHIA (test code = Reference Range: No SOPHIA) NormalsOperator ID - DB [facility] random [id number] 21:42:01 Test Item Value Reference Range Interpretation Comments Sodium Urine (test <20 meq/L code = 2955-3) SOPHIA (test code = Reference Range: No SOPHIA) NormalsOperator ID - DB [facility] CampusODIUM, RANDOM [id number] 21:42:01 Test Item Value Reference Range Interpretation Comments SODIUM URINE (BEAKER) (test code = < meq/L 243) Reference Range: No NormalsOperator ID - Creatinine, random [id number] 21:40:20 Test Item Value Reference Range Interpretation Comments Creatinine, Ur 115.4 mg/dL (test code = 2161-8) SOPHIA (test code = Reference Range: No SOPHIA) NormalsOperator ID - DB [facility] CenterProtein, random [id number] 21:40:20 Test Item Value Reference Range Interpretation Comments Protein, Urine (test code = 64 mg/dL 0-14 H 2888-6) SOPHIA (test code = SOPHIA) Drop 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 ID - DB Lab Interpretation (test Abnormal code = 49317-4) [facility] CenterCreatinine, random [id number] 21:40:20 Test Item Value Reference Range Interpretation Comments Creatinine, Ur 115.4 mg/dL (test code = 2161-8) SOPHIA (test code = Reference Range: No SOPHIA) NormalsOperator ID - DB [facility] CenterProtein, random [id number] 21:40:20 Test Item Value Reference Range Interpretation Comments Protein, Urine (test code = 64 mg/dL 0-14 H 2888-6) SOPHIA (test code = SOPHIA) Drop 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 ID - DB Lab Interpretation (test Abnormal code = 68057-3) [facility] CenterCreatinine, random [id number] 21:40:20 Test Item Value Reference Range Interpretation Comments Creatinine, Ur 115.4 mg/dL (test code = 2161-8) SOPHIA (test code = Reference Range: No SOPHIA) NormalsOperator ID - DB [facility] CenterProtein, random [id number] 21:40:20 Test Item Value Reference Range Interpretation Comments Protein, Urine (test code = 64 mg/dL 0-14 H 2888-6) SOPHIA (test code = SOPHIA) Drop 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 ID - DB Lab Interpretation (test Abnormal code = 66287-5) [facility] CenterCreatinine, random [id number] 21:40:20 Test Item Value Reference Range Interpretation Comments Creatinine, Ur 115.4 mg/dL (test code = 2161-8) SOPHIA (test code = Reference Range: No SOPHIA) NormalsOperator ID - DB [facility] CenterProtein, random [id number] 21:40:20 Test Item Value Reference Range Interpretation Comments Protein, Urine (test code = 64 mg/dL 0-14 H 2888-6) SOPHIA (test code = SOPHIA) Drop 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 ID - DB Lab Interpretation (test Abnormal code = 67449-2) [facility] CenterCreatinine, random [id number] 21:40:20 Test Item Value Reference Range Interpretation Comments Creatinine, Ur 115.4 mg/dL (test code = 2161-8) SOPHIA (test code = Reference Range: No SOPHIA) NormalsOperator ID - DB [facility] CenterProtein, random [id number] 21:40:20 Test Item Value Reference Range Interpretation Comments Protein, Urine (test code = 64 mg/dL 0-14 H 2888-6) SOPHIA (test code = SOPHIA) Drop 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 ID - DB Lab Interpretation (test Abnormal code = 02683-4) [facility] CenterCreatinine, random [id number] 21:40:20 Test Item Value Reference Range Interpretation Comments Creatinine, Ur 115.4 mg/dL (test code = 2161-8) SOPHIA (test code = Reference Range: No SOPHIA) NormalsOperator ID - DB [facility] CenterProtein, random [id number] 21:40:20 Test Item Value Reference Range Interpretation Comments Protein, Urine (test code = 64 mg/dL 0-14 H 2888-6) SOPHIA (test code = SOPHIA) Drop 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 ID - DB Lab Interpretation (test Abnormal code = 88015-9) [facility] CenterCreat[facility], random [id number] 21:40:20 Test Item Value Reference Range Interpretation Comments Creatinine, Ur 115.4 mg/dL (test code = 2161-8) SOPHIA (test code = Reference Range: No SOPHIA) NormalsOperator ID - DB [facility] CenterProtein, random [id number] 21:40:20 Test Item Value Reference Range Interpretation Comments Protein, Urine (test code = 64 mg/dL 0-14 H 2888-6) SOPHIA (test code = SOPHIA) Drop 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 ID - DB Lab Interpretation (test Abnormal code = 20738-7) [facility] CenterCreat[facility], random [id number] 21:40:20 Test Item Value Reference Range Interpretation Comments Creatinine, Ur 115.4 mg/dL (test code = 2161-8) SOPHIA (test code = Reference Range: No SOPHIA) NormalsOperator ID - DB [facility] CenterProtein, random [id number] 21:40:20 Test Item Value Reference Range Interpretation Comments Protein, Urine (test code = 64 mg/dL 0-14 H 2888-6) SOPHIA (test code = SOPHIA) Drop 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 ID - DB Lab Interpretation (test Abnormal code = 52321-5) [facility] CenterCreat[facility] random [id number] 21:40:20 Test Item Value Reference Range Interpretation Comments Creatinine, Ur 115.4 mg/dL (test code = 2161-8) SOPHIA (test code = Reference Range: No SOPHIA) NormalsOperator ID - DB [facility] CenterProtein, random [id number] 21:40:20 Test Item Value Reference Range Interpretation Comments Protein, Urine (test code = 64 mg/dL 0-14 H 2888-6) SOPHIA (test code = SOPHIA) Drop 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 ID - DB Lab Interpretation (test Abnormal code = 61740-5) [facility] CenterCREATININE, RANDOM [id number] 21:40:20 Test Item Value Reference Range Interpretation Comments CREATININE URINE (BEAKER) (test 115.4 mg/dL code = 375) Reference Range: No NormalsOperator ID - DBPROTEIN, RANDOM [id number] 21:40:20 Test Item Value Reference Range Interpretation Comments PROTEIN, URINE (BEAKER) (test code = 64 mg/dL 0-14 H 1569) Drop 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 ID - DBUrinalysis w/Mrcdjdxisbl8020-77-37 21:27:09 Test Item Value Reference Range Interpretation Comments Color, UA (test code Yellow = 5778-6) Clarity, UA (test Cloudy code = 5767-9) Specific [place], UA 1.018 1.001-1.035 (test code = 5811-5) pH, UA (test code = 5.5 5.0-8.0 5803-2) Protein, UA (test 50 mg/dL Negative A code = 34519-0) Glucose, UA (test Negative Negative code = 365) Ketones, UA (test Negative Negative code = 2514-8) Bilirubin, UA (test Positive Negative A code = 32234-5) Blood, UA (test code Small Negative A = 04165-0) Nitrite, UA (test Negative Negative code = 5802-4) Leukocytes, UA (test Large Negative A code = 5799-2) Urobilinogen, UA 0.2 mg/dL 0.2-1.0 (test code = 91104-4) RBC, UA (test code = 6 See_Comment [Autom ated 18625-8) message] The system which generated this result transmitted reference range : /HPF. The reference range was not used to interpret this result as normal/abnormal . WBC, UA (test code = 86 See_Comment [Autom ated 5821-4) message] The system which generated this result transmitted reference range : /HPF. The reference range was not used to interpret this result as normal/abnormal . Bacteria, UA (test Many code = 93704-4) Mucus (test code = Occasional 8247-9) Squam Epithel, UA 8 See_Comment [Automate d (test code = 09229-0) messag e] The system which generated this result transmitted reference range : /HPF. The reference range was not used to interpret this result as normal/abnormal . Crystals, Urine (test None Seen code = 45255-0) Specimen Source (test code = 2795) SOPHIA (test code = SOPHIA) Drop 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 ID - [auto]Drop 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 ID - tech Lab Interpretation Abnormal (test code = 32320-1) [facility] CenterUrinalysis w/Ahadmehajyd9464-01-04 21:27:09 Test Item Value Reference Range Interpretation Comments Color, UA (test code Yellow = 5778-6) Clarity, UA (test Cloudy code = 5767-9) Specific [place], UA 1.018 1.001-1.035 (test code = 5811-5) pH, UA (test code = 5.5 5.0-8.0 5803-2) Protein, UA (test 50 mg/dL Negative A code = 04027-3) Glucose, UA (test Negative Negative code = 365) Ketones, UA (test Negative Negative code = 2514-8) Bilirubin, UA (test Positive Negative A code = 98645-7) Blood, UA (test code Small Negative A = 48562-8) Nitrite, UA (test Negative Negative code = 5802-4) Leukocytes, UA (test Large Negative A code = 5799-2) Urobilinogen, UA 0.2 mg/dL 0.2-1.0 (test code = 14320-1) RBC, UA (test code = 6 See_Comment [Autom ated 77371-5) message] The system which generated this result transmitted reference range : /HPF. The reference range was not used to interpret this result as normal/abnormal . WBC, UA (test code = 86 See_Comment [Autom ated 5821-4) message] The system which generated this result transmitted reference range : /HPF. The reference range was not used to interpret this result as normal/abnormal . Bacteria, UA (test Many code = 23692-6) Mucus (test code = Occasional 8247-9) Squam Epithel, UA 8 See_Comment [Automate d (test code = 60103-5) messag e] The system which generated this result transmitted reference range : /HPF. The reference range was not used to interpret this result as normal/abnormal . Crystals, Urine (test None Seen code = 56504-6) Specimen Source (test code = 2795) SOPHIA (test code = SOPHIA) Drop 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 ID - [auto]Drop 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 ID - tech Lab Interpretation Abnormal (test code = 70242-0) [facility]Tmmdspetgph3955-01-29 21:27:09 Test Item Value Reference Range Interpretation Comments Color, UA (test code Yellow = 5778-6) Clarity, UA (test Cloudy code = 5767-9) Specific [place], UA 1.018 1.001-1.035 (test code = 5811-5) pH, UA (test code = 5.5 5.0-8.0 5803-2) Protein, UA (test 50 mg/dL Negative A code = 49204-1) Glucose, UA (test Negative Negative code = 365) Ketones, UA (test Negative Negative code = 2514-8) Bilirubin, UA (test Positive Negative A code = 10184-3) Blood, UA (test code Small Negative A = 59262-7) Nitrite, UA (test Negative Negative code = 5802-4) Leukocytes, UA (test Large Negative A code = 5799-2) Urobilinogen, UA 0.2 mg/dL 0.2-1.0 (test code = 79790-2) RBC, UA (test code = 6 See_Comment [Autom ated 18808-6) message] The system which generated this result transmitted reference range : /HPF. The reference range was not used to interpret this result as normal/abnormal . WBC, UA (test code = 86 See_Comment [Autom ated 5821-4) message] The system which generated this result transmitted reference range : /HPF. The reference range was not used to interpret this result as normal/abnormal . Bacteria, UA (test Many code = 31737-3) Mucus (test code = Occasional 8247-9) Squam Epithel, UA 8 See_Comment [Automate d (test code = 60013-8) messag e] The system which generated this result transmitted reference range : /HPF. The reference range was not used to interpret this result as normal/abnormal . Crystals, Urine (test None Seen code = 26595-9) Specimen Source (test code = 2795) SOPHIA (test code = SOPHIA) Drop 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 ID - [auto]Drop 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 ID - tech Lab Interpretation Abnormal (test code = 05228-6) [facility]/Kybkpuphcsa0311-35-51 21:27:09 Test Item Value Reference Range Interpretation Comments Color, UA (test code Yellow = 5778-6) Clarity, UA (test Cloudy code = 5767-9) Specific [place], UA 1.018 1.001-1.035 (test code = 5811-5) pH, UA (test code = 5.5 5.0-8.0 5803-2) Protein, UA (test 50 mg/dL Negative A code = 11061-5) Glucose, UA (test Negative Negative code = 365) Ketones, UA (test Negative Negative code = 2514-8) Bilirubin, UA (test Positive Negative A code = 98623-3) Blood, UA (test code Small Negative A = 99646-2) Nitrite, UA (test Negative Negative code = 5802-4) Leukocytes, UA (test Large Negative A code = 5799-2) Urobilinogen, UA 0.2 mg/dL 0.2-1.0 (test code = 96841-9) RBC, UA (test code = 6 See_Comment [Autom ated 02476-7) message] The system which generated this result transmitted reference range : /HPF. The reference range was not used to interpret this result as normal/abnormal . WBC, UA (test code = 86 See_Comment [Autom ated 5821-4) message] The system which generated this result transmitted reference range : /HPF. The reference range was not used to interpret this result as normal/abnormal . Bacteria, UA (test Many code = 26913-3) Mucus (test code = Occasional 8247-9) Squam Epithel, UA 8 See_Comment [Automate d (test code = 96464-1) messag e] The system which generated this result transmitted reference range : /HPF. The reference range was not used to interpret this result as normal/abnormal . Crystals, Urine (test None Seen code = 36969-1) Specimen Source (test code = 2795) SOPHIA (test code = SOPHIA) Drop 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 ID - [auto]Drop 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 ID - tech Lab Interpretation Abnormal (test code = 44028-0) [facility]/Ruwnrrlkguz7338-42-49 21:27:09 Test Item Value Reference Range Interpretation Comments Color, UA (test code Yellow = 5778-6) Clarity, UA (test Cloudy code = 5767-9) Specific [place], UA 1.018 1.001-1.035 (test code = 5811-5) pH, UA (test code = 5.5 5.0-8.0 5803-2) Protein, UA (test 50 mg/dL Negative A code = 93541-6) Glucose, UA (test Negative Negative code = 365) Ketones, UA (test Negative Negative code = 2514-8) Bilirubin, UA (test Positive Negative A code = 47109-1) Blood, UA (test code Small Negative A = 36242-9) Nitrite, UA (test Negative Negative code = 5802-4) Leukocytes, UA (test Large Negative A code = 5799-2) Urobilinogen, UA 0.2 mg/dL 0.2-1.0 (test code = 54113-7) RBC, UA (test code = 6 See_Comment [Autom ated 64562-9) message] The system which generated this result transmitted reference range : /HPF. The reference range was not used to interpret this result as normal/abnormal . WBC, UA (test code = 86 See_Comment [Autom ated 5821-4) message] The system which generated this result transmitted reference range : /HPF. The reference range was not used to interpret this result as normal/abnormal . Bacteria, UA (test Many code = 64738-9) Mucus (test code = Occasional 8247-9) Squam Epithel, UA 8 See_Comment [Automate d (test code = 01597-3) messag e] The system which generated this result transmitted reference range : /HPF. The reference range was not used to interpret this result as normal/abnormal . Crystals, Urine (test None Seen code = 17418-3) Specimen Source (test code = 2795) SOPHIA (test code = SOPHIA) Drop 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 ID - [auto]Drop 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 ID - tech Lab Interpretation Abnormal (test code = 49622-3) [facility]/Eruocdsxicz0674-48-15 21:27:09 Test Item Value Reference Range Interpretation Comments Color, UA (test code Yellow = 5778-6) Clarity, UA (test Cloudy code = 5767-9) Specific [place], UA 1.018 1.001-1.035 (test code = 5811-5) pH, UA (test code = 5.5 5.0-8.0 5803-2) Protein, UA (test 50 mg/dL Negative A code = 98120-4) Glucose, UA (test Negative Negative code = 365) Ketones, UA (test Negative Negative code = 2514-8) Bilirubin, UA (test Positive Negative A code = 83218-7) Blood, UA (test code Small Negative A = 83717-3) Nitrite, UA (test Negative Negative code = 5802-4) Leukocytes, UA (test Large Negative A code = 5799-2) Urobilinogen, UA 0.2 mg/dL 0.2-1.0 (test code = 58573-1) RBC, UA (test code = 6 See_Comment [Autom ated 96821-3) message] The system which generated this result transmitted reference range : /HPF. The reference range was not used to interpret this result as normal/abnormal . WBC, UA (test code = 86 See_Comment [Autom ated 5821-4) message] The system which generated this result transmitted reference range : /HPF. The reference range was not used to interpret this result as normal/abnormal . Bacteria, UA (test Many code = 02929-9) Mucus (test code = Occasional 8247-9) Squam Epithel, UA 8 See_Comment [Automate d (test code = 11044-8) messag e] The system which generated this result transmitted reference range : /HPF. The reference range was not used to interpret this result as normal/abnormal . Crystals, Urine (test None Seen code = 85399-7) Specimen Source (test code = 2795) SOPHIA (test code = SOPHIA) Drop 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 ID - [auto]Drop 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 ID - tech Lab Interpretation Abnormal (test code = 11235-8) [facility]/Wyokdyfklkh6942-96-72 21:27:09 Test Item Value Reference Range Interpretation Comments Color, UA (test code Yellow = 5778-6) Clarity, UA (test Cloudy code = 5767-9) Specific [place], UA 1.018 1.001-1.035 (test code = 5811-5) pH, UA (test code = 5.5 5.0-8.0 5803-2) Protein, UA (test 50 mg/dL Negative A code = 82691-6) Glucose, UA (test Negative Negative code = 365) Ketones, UA (test Negative Negative code = 2514-8) Bilirubin, UA (test Positive Negative A code = 95157-3) Blood, UA (test code Small Negative A = 55261-5) Nitrite, UA (test Negative Negative code = 5802-4) Leukocytes, UA (test Large Negative A code = 5799-2) Urobilinogen, UA 0.2 mg/dL 0.2-1.0 (test code = 13959-7) RBC, UA (test code = 6 See_Comment [Autom ated 11830-2) message] The system which generated this result transmitted reference range : /HPF. The reference range was not used to interpret this result as normal/abnormal . WBC, UA (test code = 86 See_Comment [Autom ated 5821-4) message] The system which generated this result transmitted reference range : /HPF. The reference range was not used to interpret this result as normal/abnormal . Bacteria, UA (test Many code = 29653-0) Mucus (test code = Occasional 8247-9) Squam Epithel, UA 8 See_Comment [Automate d (test code = 96374-3) messag e] The system which generated this result transmitted reference range : /HPF. The reference range was not used to interpret this result as normal/abnormal . Crystals, Urine (test None Seen code = 44350-8) Specimen Source (test code = 2795) SOPHIA (test code = SOPHIA) Drop 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 ID - [auto]Drop 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 ID - tech Lab Interpretation Abnormal (test code = 40867-5) [facility]/Owatrhnadyz6838-76-88 21:27:09 Test Item Value Reference Range Interpretation Comments Color, UA (test code Yellow = 5778-6) Clarity, UA (test Cloudy code = 5767-9) Specific [place], UA 1.018 1.001-1.035 (test code = 5811-5) pH, UA (test code = 5.5 5.0-8.0 5803-2) Protein, UA (test 50 mg/dL Negative A code = 86689-4) Glucose, UA (test Negative Negative code = 365) Ketones, UA (test Negative Negative code = 2514-8) Bilirubin, UA (test Positive Negative A code = 06646-5) Blood, UA (test code Small Negative A = 13706-1) Nitrite, UA (test Negative Negative code = 5802-4) Leukocytes, UA (test Large Negative A code = 5799-2) Urobilinogen, UA 0.2 mg/dL 0.2-1.0 (test code = 15305-0) RBC, UA (test code = 6 See_Comment [Autom ated 72963-8) message] The system which generated this result transmitted reference range : /HPF. The reference range was not used to interpret this result as normal/abnormal . WBC, UA (test code = 86 See_Comment [Autom ated 5821-4) message] The system which generated this result transmitted reference range : /HPF. The reference range was not used to interpret this result as normal/abnormal . Bacteria, UA (test Many code = 13266-7) Mucus (test code = Occasional 8247-9) Squam Epithel, UA 8 See_Comment [Automate d (test code = 95697-6) messag e] The system which generated this result transmitted reference range : /HPF. The reference range was not used to interpret this result as normal/abnormal . Crystals, Urine (test None Seen code = 53324-0) Specimen Source (test code = 2795) SOPHIA (test code = SOPHIA) Drop 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 ID - [auto]Drop 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 ID - tech Lab Interpretation Abnormal (test code = 56681-5) [facility]/Mhpqdpjcoyj2781-86-91 21:27:09 Test Item Value Reference Range Interpretation Comments Color, UA (test code Yellow = 5778-6) Clarity, UA (test Cloudy code = 5767-9) Specific [place], UA 1.018 1.001-1.035 (test code = 5811-5) pH, UA (test code = 5.5 5.0-8.0 5803-2) Protein, UA (test 50 mg/dL Negative A code = 88147-1) Glucose, UA (test Negative Negative code = 365) Ketones, UA (test Negative Negative code = 2514-8) Bilirubin, UA (test Positive Negative A code = 07850-4) Blood, UA (test code Small Negative A = 62265-1) Nitrite, UA (test Negative Negative code = 5802-4) Leukocytes, UA (test Large Negative A code = 5799-2) Urobilinogen, UA 0.2 mg/dL 0.2-1.0 (test code = 05485-0) RBC, UA (test code = 6 See_Comment [Autom ated 66684-1) message] The system which generated this result transmitted reference range : /HPF. The reference range was not used to interpret this result as normal/abnormal . WBC, UA (test code = 86 See_Comment [Autom ated 5821-4) message] The system which generated this result transmitted reference range : /HPF. The reference range was not used to interpret this result as normal/abnormal . Bacteria, UA (test Many code = 93537-1) Mucus (test code = Occasional 8247-9) Squam Epithel, UA 8 See_Comment [Automate d (test code = 58141-8) messag e] The system which generated this result transmitted reference range : /HPF. The reference range was not used to interpret this result as normal/abnormal . Crystals, Urine (test None Seen code = 94381-7) Specimen Source (test code = 2795) OSPHIA (test code = SOPHIA) Drop 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 ID - [auto]Drop 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 ID - tech Lab Interpretation Abnormal (test code = 52921-8) [facility] [id number] 21:27:09 Test Item Value Reference Range Interpretation Comments COLOR (BEAKER) (test code = 470) Yellow CLARITY (BEAKER) (test code = 469) Cloudy SPECIFIC GRAVITY UA (BEAKER) (test 1.018 1.001-1.035 code = 468) PH UA (BEAKER) (test code = 467) 5.5 5.0-8.0 PROTEIN UA (BEAKER) (test code = 50 mg/dL Negative A 464) GLUCOSE UA (BEAKER) (test code = Negative Negative 365) KETONES UA (BEAKER) (test code = Negative Negative 371) BILIRUBIN UA (BEAKER) (test code = Positive Negative A 462) BLOOD UA (BEAKER) (test code = Small Negative A 461) NITRITE UA (BEAKER) (test code = Negative Negative 465) LEUKOCYTE ESTERASE UA (BEAKER) Large Negative A (test code = 466) UROBILINOGEN UA (BEAKER) (test 0.2 mg/dL 0.2-1.0 code = 463) RBC UA (BEAKER) (test code = 519) 6 /HPF WBC UA (BEAKER) (test code = 520) 86 /HPF BACTERIA (BEAKER) (test code = Many 517) MUCUS (BEAKER) (test code = 1574) Occasional SQUAMOUS EPITHELIAL (BEAKER) (test 8 /HPF code = 516) CRYSTALS, URINE (BEAKER) (test None Seen code = 1521) SOURCE(BEAKER) (test code = 2795) Drop 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 ID - [auto]Drop 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 ID - techPOCT-GLUCOSE [id number] 21:26:57 Test Item Value Reference Range Interpretation Comments POC-GLUCOSE METER 116 mg/dL 70-110 H : TESTED A T [facility] (BEAKER) (test code = KENYA QUINONES [place], 1538) 15727: Drop 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/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 ID = [id number] for CR SAMSON ASIA BASIC METABOLIC [id number] 14:46:24 Test Item Value Reference Range Interpretation Comments SODIUM (BEAKER) 127 meq/L 136-145 L (test code = 381) POTASSIUM (BEAKER) 4.3 meq/L 3.5-5.1 (test code = 379) CHLORIDE (BEAKER) 85 meq/L 98-107 L (test code = 382) CO2 (BEAKER) (test 18 meq/L 22-29 L code = 355) BLOOD UREA NITROGEN 100 mg/dL 7-21 H (BEAKER) (test code = 354) CREATININE (BEAKER) 7.16 mg/dL 0.57-1.25 H (test code = 358) GLUCOSE RANDOM 176 mg/dL 70-105 H (BEAKER) (test code = 652) CALCIUM (BEAKER) 9.4 mg/dL 8.4-10.2 (test code = 697) EGFR (BEAKER) (test 6 mL/min/1.73 ESTIMAT ED GFR IS code = 1092) sq m NOT ACCURATE CREATININE CLEARANCE IN PREDICTING GLOMERULAR FILTRATION RATE . ESTIMATED GFR I S NOT APPLICABLE FOR DIALYSIS PATIEN TS. Drop 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 ID - PIAYA LHEPATIC FUNCTION [id number] 14:39:41 Test Item Value Reference Range Interpretation Comments TOTAL PROTEIN (BEAKER) (test code = 8.3 gm/dL 6.0-8.3 770) ALBUMIN (BEAKER) (test code = 1145) 4.2 g/dL 3.5-5.0 BILIRUBIN TOTAL (BEAKER) (test code 2.5 mg/dL 0.2-1.2 H = 377) BILIRUBIN DIRECT (BEAKER) (test 2.0 mg/dL 0.1-0.5 H code = 706) ALKALINE PHOSPHATASE (BEAKER) (test 314 U/L 40-150 H code = 346) AST (SGOT) (BEAKER) (test code = 56 U/L 5-34 H 353) ALT (SGPT) (BEAKER) (test code = 52 U/L 6-55 347) Drop 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 ID - PIAYA LCBC W/PLT COUNT & AUTO [id number] 14:11:43 Test Item Value Reference Range Interpretation Comments WHITE BLOOD CELL COUNT (BEAKER) 18.9 K/ L 3.5-10.5 H (test code = 775) RED BLOOD CELL COUNT (BEAKER) 5.03 M/ L 3.93-5.22 (test code = 761) HEMOGLOBIN (BEAKER) (test code = 13.7 GM/DL 11.2-15.7 410) HEMATOCRIT (BEAKER) (test code = 38.6 % 34.1-44.9 411) MEAN CORPUSCULAR VOLUME (BEAKER) 76.7 fL 79.4-94.8 L (test code = 753) MEAN CORPUSCULAR HEMOGLOBIN 27.2 pg 25.6-32.2 (BEAKER) (test code = 751) MEAN CORPUSCULAR HEMOGLOBIN CONC 35.5 GM/DL 32.2-35.5 (BEAKER) (test code = 752) RED CELL DISTRIBUTION WIDTH 13.7 % 11.7-14.4 (BEAKER) (test code = 412) PLATELET COUNT (BEAKER) (test 422 K/CU MM 150-450 code = 756) MEAN PLATELET VOLUME (BEAKER) 9.9 fL 9.4-12.3 (test code = 754) NUCLEATED RED BLOOD CELLS 0 /100 WBC 0-0 (BEAKER) (test code = 413) NEUTROPHILS RELATIVE PERCENT 84 % (BEAKER) (test code = 429) LYMPHOCYTES RELATIVE PERCENT 9 % (BEAKER) (test code = 430) MONOCYTES RELATIVE PERCENT 6 % (BEAKER) (test code = 431) EOSINOPHILS RELATIVE PERCENT 0 % (BEAKER) (test code = 432) BASOPHILS RELATIVE PERCENT 0 % (BEAKER) (test code = 437) NEUTROPHILS ABSOLUTE COUNT 15.90 K/ L 1.56-6.13 H (BEAKER) (test code = 670) LYMPHOCYTES ABSOLUTE COUNT 1.71 K/ L 1.18-3.74 (BEAKER) (test code = 414) MONOCYTES ABSOLUTE COUNT (BEAKER) 1.14 K/ L 0.24-0.36 H (test code = 415) EOSINOPHILS ABSOLUTE COUNT 0.01 K/ L 0.04-0.36 L (BEAKER) (test code = 416) BASOPHILS ABSOLUTE COUNT (BEAKER) 0.02 K/ L 0.01-0.08 (test code = 417) IMMATURE GRANULOCYTES-RELATIVE 1 % 0-1 PERCENT (BEAKER) (test code = 2801) POCT-GLUCOSE [id number] 11:36:30 Test Item Value Reference Range Interpretation Comments POC-GLUCOSE METER 141 mg/dL 70-110 H : TESTED A T [facility] (BEAKER) (test code = KENYA Mcmullen [facility], 1538) 743[address]: Drop 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/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 ID = [id number] for MEMO RAYA NARCISA SARS-COV2/RT-PCR ([facility])2021-06-26 17:53:52 Test Item Value Reference Range Interpretation Comments SARS-COV2/RT-PCR (test code = Negative Negative 1110633) Negative result for this test determines that [...] under Section 564(g) of the Act.Testing was performed using the Rosado SARS-CoV-2 assay.Fact Sheet for Healthcare Providers:https://www.[employer].rosado/wilfrid/RT SARS-CoV-2 HCP Fact Sheet 51- 963054.pdfFact Sheet for Healthcare Patients:https://www.[employer].rosado/wilfrid/RT SARS-CoV-2 Patient Fact Sheet EN 51-123049V7.pdfPOCT-GLUCOSE [id number] 08:25:03 Test Item Value Reference Range Interpretation Comments POC-GLUCOSE METER 101 mg/dL 70-110 : TESTED A T [facility] (test code = KEN[place] QUINONES [place], 1538) 01308: Drop 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/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 ID = [id number] for EMMIE JOHNSON BASIC METABOLIC [id number] 06:11:31 Test Item Value Reference Range Interpretation [...] 697) EGFR (BEAKER) (test 75 mL/min/1.73 ESTIMA MANOJ GFR IS code = 1092) sq m NOT ACCURATE CREATININE CLEARANCE IN PREDICTING GLOMERULAR FILTRATION RATE . ESTIMATED GFR I S NOT APPLICABLE FOR DIALYSIS PATIEN TS. Drop 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 ID - PERCY WSpecimen slightly [id number] 06:11:30 Test Item Value Reference Range Interpretation Comments MAGNESIUM (BEAKER) (test code = 1.9 mg/dL 1.6-2.6 627) Drop 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 ID Darian GREER [id number] 06:11:30 Test Item Value Reference Range Interpretation Comments PHOSPHORUS (BEAKER) (test code = 2.4 mg/dL 2.3-4.7 604) Drop 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 ID - PERCY WCALCIUM, [id number] 05:41:30 Test Item Value Reference Range Interpretation Comments CALCIUM IONIZED (BEAKER) (test 1.07 mmol/L 1.12-1.27 L code = 698) PH, BLOOD (BEAKER) (test code = 7.40 1810) CBC W/PLT COUNT & AUTO [id number] 05:27:48 Test Item Value Reference Range Interpretation [...] PERCENT (BEAKER) (test code = 2801) POCT-GLUCOSE [id number] 21:29:40 Test Item Value Reference Range Interpretation Comments POC-GLUCOSE METER 93 mg/dL 70-110 : TESTED A T [facility] 6720 (BEAKER) (test code = [facility], 1538) 24277: Drop 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/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 ID = [id number] for OBI UREÑA POCT-GLUCOSE [id number] 16:38:43 Test Item Value Reference Range Interpretation Comments POC-GLUCOSE METER 133 mg/dL 70-110 H : TESTED A T [facility] 6720 (BEAKER) (test code = [facility], 1538) 55385: Drop 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/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 ID = [id number] for HU NTER, HIWITHA RAD, ABDOMEN/KUB, 1 VIEW [id number] 15:23:00Reason for exam:- >constipationReason for exam:->fecal impaction [facility] : 1970 Sex: FFINAL REPORT RAD, ABDOMEN/KUB, 1 VIEW AP CLINICAL INDICATION: constipationfecal impaction COMPARISON: 06/22/2021 TECHNIQUE: Single, frontal radiograph of the abdomen. FINDINGS:Transhepatic biliary drainage catheters present. The bowel gas pattern is nonspecific, but nonobstructive. Large stool burden persists. Evaluation for free air is limited by portable supine technique. Within these limitations, no free air is identified. Signed: Shantal Merino MDReport Verified Date/Time: 06/25/2021 15:23:29 POCT-GLUCOSE METER 2021-06-25 12:17:33 Test Item Value Reference Range Interpretation Comments POC-GLUCOSE METER 138 mg/dL 70-110 H : [facility] ([employer]) (test code = KENYA Mcmullen [facility], 1538) 25456: Drop 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/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 ID = [id number] for WILDA CAMPOVERDE POCT-GLUCOSE [id number] 08:08:33 Test Item Value Reference Range Interpretation Comments POC-GLUCOSE METER 168 mg/dL 70-110 H : TESTED A T [facility] 6720 ([employer]) (test code = KEN[place] QUINONES [place], 1538) 59349: Drop 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/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 ID = [id number] for WILDA CAMPOVERDE CALCIUM, [id number] 07:29:58 Test Item Value Reference Range Interpretation Comments CALCIUM IONIZED (BEAKER) (test 1.05 mmol/L 1.12-1.27 L code = 698) PH, BLOOD (BEAKER) (test code = 7.42 1810) [id number] 07:03:18 Test Item Value Reference Range Interpretation Comments PHOSPHORUS (BEAKER) (test code = 2.3 mg/dL 2.3-4.7 604) Drop 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 ID - SARAH MCOMPREHENSIVE METABOLIC [id number] 07:03:18 Test Item Value Reference Range Interpretation [...] 347) EGFR (BEAKER) (test 51 mL/min/1.73 ESTIMA MANOJ GFR IS code = 1092) sq m NOT ACCURATE CREATININE CLEARANCE IN PREDICTING GLOMERULAR FILTRATION RATE . ESTIMATED GFR I S NOT APPLICABLE FOR DIALYSIS PATIEN TS. Drop 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 ID - SARAH MSpecimen slightly [id number] 07:03:17 Test Item Value Reference Range Interpretation Comments MAGNESIUM (BEAKER) (test code = 2.3 mg/dL 1.6-2.6 627) Drop 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 ID - SARAH MCBC W/PLT COUNT & AUTO [id number] 06:39:40 Test Item Value Reference Range Interpretation [...] PERCENT (BEAKER) (test code = 2801) POCT-GLUCOSE [id number] 21:13:40 Test Item Value Reference Range Interpretation Comments POC-GLUCOSE METER 134 mg/dL 70-110 H : TESTED A T [facility] (BEAKER) (test code = K[place] QUINONES [place], 1538) 09927: Drop 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/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 ID = [id number] for OBI YIGN BASIC METABOLIC [id number] 12:42:19 Test Item Value Reference Range Interpretation [...] 697) EGFR (BEAKER) (test 22 mL/min/1.73 ESTIMA MANOJ GFR IS code = 1092) sq m NOT ACCURATE CREATININE CLEARANCE IN PREDICTING GLOMERULAR FILTRATION RATE . ESTIMATED GFR I S NOT APPLICABLE FOR DIALYSIS PATIEN TS. Drop 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 ID - SARAH MSpecimen slightly ictericCALCIUM, [id number] 12:26:54 Test Item Value Reference Range Interpretation Comments CALCIUM IONIZED (BEAKER) (test 1.05 mmol/L 1.12-1.27 L code = 698) PH, BLOOD (BEAKER) (test code = 7.42 1810) POCT-GLUCOSE [id number] 11:34:52 Test Item Value Reference Range Interpretation Comments POC-GLUCOSE METER 208 mg/dL 70-110 H : TESTED A T [facility] [address] (BEAKER) (test code = [place] QU[place]ON[place], 1538) 30715: Drop 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/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 ID = [id number] for Ambika bird (pca2)Berenice Uric [id number] 10:43:33 Test Item Value Reference Range Interpretation Comments Uric Acid (test code = 13.6 mg/dL 2.6-7.2 H Speci men 3084-1) slightly hemolyzed SOPHIA (test code = SOPHIA) Drop 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 ID - SARAH Grimerima slightly icteric Lab Interpretation Abnormal (test code = 21374-7) [facility] [id number] 10:43:33 Test Item Value Reference Range Interpretation Comments Uric Acid (test code = 13.6 mg/dL 2.6-7.2 H Speci men 3084-1) slightly hemolyzed SOPHIA (test code = SOPHIA) Drop 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 ID - SARAH Grimerima slightly icteric Lab Interpretation Abnormal (test code = 27273-1) [facility] [id number] 10:43:33 Test Item Value Reference Range Interpretation Comments Uric Acid (test code = 13.6 mg/dL 2.6-7.2 H Speci men 3084-1) slightly hemolyzed SOPHIA (test code = SOPHIA) Drop 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 ID - SARAH Grimerima slightly icteric Lab Interpretation Abnormal (test code = 76615-1) [facility] [id number] 10:43:33 Test Item Value Reference Range Interpretation Comments Uric Acid (test code = 13.6 mg/dL 2.6-7.2 H Speci men 3084-1) slightly hemolyzed SOPHIA (test code = SOPHIA) Drop 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 ID - SARAH Hendersonecimen slightly icteric Lab Interpretation Abnormal (test code = 04686-4) [facility] [id number] 10:43:33 Test Item Value Reference Range Interpretation Comments Uric Acid (test code = 13.6 mg/dL 2.6-7.2 H Speci men 3084-1) slightly hemolyzed SOPHIA (test code = SOPHIA) Drop 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 ID - SARAH MSpecimen slightly icteric Lab Interpretation Abnormal (test code = 23762-9) [facility] [id number] 10:43:33 Test Item Value Reference Range Interpretation Comments Uric Acid (test code = 13.6 mg/dL 2.6-7.2 H Speci men 3084-1) slightly hemolyzed SOPHIA (test code = SOPHIA) Drop 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 ID - SARAH MSpecimen slightly icteric Lab Interpretation Abnormal (test code = 35929-7) [facility] [id number] 10:43:33 Test Item Value Reference Range Interpretation Comments Uric Acid (test code = 13.6 mg/dL 2.6-7.2 H Speci men 3084-1) slightly hemolyzed SOPHIA (test code = SOPHIA) Drop 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 ID - SARAH MSpecimen slightly icteric Lab Interpretation Abnormal (test code = 61253-7) [facility] [id number] 10:43:33 Test Item Value Reference Range Interpretation Comments URIC ACID (BEAKER) 13.6 mg/dL 2.6-7.2 H Specimen slightly (test code = 773) hemolyzed Drop 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 ID - SARAH MSpecimen slightly ictericPROTEIN, RANDOM [id number] 09:25:49 Test Item Value Reference Range Interpretation Comments PROTEIN, URINE (BEAKER) (test code = 44 mg/dL 0-14 H 1569) Drop 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 ID - SARAH MCREATININE, RANDOM [id number] 09:24:08 Test Item Value Reference Range Interpretation Comments CREATININE URINE (BEAKER) (test 88.9 mg/dL code = 375) Reference Range: No NormalsOperator ID - SARAH MSODIUM, RANDOM [id number] 09:24:08 Test Item Value Reference Range Interpretation [...] 1585) Rare SOURCE(BEAKER) (test code = 2795) Drop 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 ID - [auto]Drop 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 ID - [auto]Drop 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 ID - techCOMPREHENSIVE METABOLIC [id number] 06:05:44 Test Item Value Reference Range Interpretation [...] hemolyzed EGFR (BEAKER) (test 15 mL/min/1.73 ESTIMA MANOJ GFR IS code = 1092) sq m NOT ACCURATE CREATININE CLEARANCE IN PREDICTING GLOMERULAR FILTRATION RATE . ESTIMATED GFR I S NOT APPLICABLE FOR DIALYSIS PATIEN TS. Drop 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 ID - SARAH MSpecimen slightly ictericCreatine Kinase (CK)2021-06-24 05:53:00 Test Item Value Reference Range Interpretation Comments Total CK (test code = 23 U/L 29-200 L 2157-6) SOPHIA (test code = SOPHIA) Drop 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 ID - SARAH M Lab Interpretation (test Abnormal code = 14489-0) [facility] ([facility])2021-06-24 05:53:00 Test Item Value Reference Range Interpretation Comments Total CK (test code = 23 U/L 29-200 L 2157-6) SOPHIA (test code = SOPHIA) Drop 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 ID - SARAH M Lab Interpretation (test Abnormal code = 22434-2) [facility] (CK)2021-06-24 05:53:00 Test Item Value Reference Range Interpretation Comments Total CK (test code = 23 U/L 29-200 L 2157-6) SOPHIA (test code = SOPHIA) Drop 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 ID - SARAH M Lab Interpretation (test Abnormal code = 35256-0) [facility] (CK)2021-06-24 05:53:00 Test Item Value Reference Range Interpretation Comments Total CK (test code = 23 U/L 29-200 L 2157-6) SOPHIA (test code = SOPHIA) Drop 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 ID - SARAH M Lab Interpretation (test Abnormal code = 75425-9) [facility] (CK)2021-06-24 05:53:00 Test Item Value Reference Range Interpretation Comments Total CK (test code = 23 U/L 29-200 L 2157-6) SOPHIA (test code = SOPHIA) Drop 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 ID - [facility] Lab Interpretation (test Abnormal code = 10497-5) [facility] (CK)2021-06-24 05:53:00 Test Item Value Reference Range Interpretation Comments Total CK (test code = 23 U/L 29-200 L 2157-6) SOPHIA (test code = SOPHIA) Drop 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 ID - [facility] Lab Interpretation (test Abnormal code = 68326-7) [facility] (CK)2021-06-24 05:53:00 Test Item Value Reference Range Interpretation Comments Total CK (test code = 23 U/L 29-200 L 2157-6) SOPHIA (test code = SOPHIA) Drop 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 ID - [facility] Lab Interpretation (test Abnormal code = 25709-5) [facility] CenterPHOSPHORUS2022-01-04 05:53:00 Test Item Value Reference Range Interpretation Comments PHOSPHORUS (BEAKER) 7.0 mg/dL 2.3-4.7 H Specimen slightly (test code = 604) hemolyzed Drop 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 ID - [facility] MCREATINE KINASE (CK)2021-06-24 05:53:00 Test Item Value Reference Range Interpretation Comments CREATINE KINASE TOTAL (BEAKER) (test 23 U/L 29-200 L code = 380) Drop 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 ID - SARAH [id number] 05:52:59 Test Item Value Reference Range Interpretation Comments MAGNESIUM (BEAKER) 2.8 mg/dL 1.6-2.6 H Specimen slightly (test code = 627) hemolyzed Drop 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 ID - [facility] MB-TYPE NATRIURETIC FACTOR (BNP)2021-06-24 05:50:35 Test Item Value Reference Range Interpretation Comments B-TYPE NATRIURETIC PEPTIDE (BEAKER) 19 pg/mL 0-100 (test code = 700) Drop 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 ID - SARAH MCBC W/PLT COUNT & AUTO [id number] 05:45:34 Test Item Value Reference Range Interpretation [...] PERCENT (BEAKER) (test code = 2801) CALCIUM, [id number] 05:24:45 Test Item Value Reference Range Interpretation Comments CALCIUM IONIZED (BEAKER) (test 1.04 mmol/L 1.12-1.27 L code = 698) PH, BLOOD (BEAKER) (test code = 7.40 1810) POCT-GLUCOSE [id number] 21:35:49 Test Item Value Reference Range Interpretation Comments POC-GLUCOSE METER 225 mg/dL 70-110 H : TESTED A T [facility] 6720 (BEAKER) (test code = KENYA QUINONES [place], 1538) [address]: Drop 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/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 ID = [id number] for OBI YING BASIC METABOLIC [id number] 20:23:04 Test Item Value Reference Range Interpretation [...] 697) EGFR (BEAKER) (test 10 mL/min/1.73 ESTIMA MANOJ GFR IS code = 1092) sq m NOT ACCURATE CREATININE CLEARANCE IN PREDICTING GLOMERULAR FILTRATION RATE . ESTIMATED GFR I S NOT APPLICABLE FOR DIALYSIS PATIEN TS. Drop 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 ID - ADMINSpecimen slightly ictericRAD, CHEST, 1 VIEW, NON DEPT 2021-06-23 19:17:00Reason for exam:->Evaluate for edemaShould this be performed at the bedside?->YesIs the patient ?->No [facility] : 1970 Sex: FFINAL REPORT TECHNIQUE: Frontal view of the chest. INDICATION: Evaluate for edemaCOMPARISON:07/30/2011 DISCUSSION:Limited evaluation due to portable technique. Lines and hardware: NoneHeart and mediastinum: Stable.Lungs and pleura: No focal airspace consolidation. No pleural effusion. No pneumothorax. Right hemidiaphragm elevation is noted.Soft tissues and bones: No acute abnormality. IMPRESSION:Negative for acute intrathoracic process. Signed: Nehemias Menon MDReport Verified Date/Time: 06/23/2021 19:17:09 Reading Location: [facility] CT, [id number] 17:33:00Unlisted Reason for Exam - Click Yes and Enter Reason Below->NoIs this for enterography?->NoWill this procedure require oral contrast?->Yes[facility] : 1970 Sex: FFINAL REPORT ABDOMINAL AND PELVIS CT DATED 06/23/2021 COMPARISON: CT of the chest dated June 09, 2021 CLINICAL INFORMATION: Abdominal distension TECHNIQUE: Axial images of the abdomen and pelvis were obtained from diaphragm to the pubic symphysis without GI or intravenous contrast. This exam was performed according to our departmental dose-optimization program, which includes automated exposure control, adjustment of the mA and/or kV according to patient size and/or use of interactive reconstruction technique. COMMENT: Liver is enlarged measuring 21 cm in the right mid clavicular line. Spleen is normal in size. A 7.6 x 8.4 cm hypodense mass is seen in the segment 4 and the segment 8 of the liver. Gallbladder is contracted. No gallstone or biliary dilatation is noted. There isinterval placement of a transhepatic biliary drainage catheter. Pancreas and adrenals are unremarkable. Both kidneys are normal in size. No hydronephrosis, hydroureter, urolithiasis is seen. Diverticular disease is seen in the large bowel without diverticulitis. The small bowel and appendix are normalin caliber. Uterus is surgically absent. The urinary bladder is contracted. No adenopathy or ascitesis present. IMPRESSION: 1. Hepatomegaly with hypodense mass in the segment 4 and segment 8 of liver.2. Diverticulosis without diverticulitis. Signed: Armando Peacock Verified Date/Time: 06/23/2021 17:33:14 Reading Location: [address] Body Reading Room POCT-GLUCOSE [id number] 17:19:07 Test Item Value Reference Range Interpretation Comments POC-GLUCOSE METER 202 mg/dL 70-110 H : Notified RN/MD: (ROBYN) (test code = TESTED AT [place] [address] 1538) [facility], [address]: Drop 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/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 ID = [id number] for EMMIE JOHNSON POCT-GLUCOSE [id number] 11:38:31 Test Item Value Reference Range Interpretation Comments POC-GLUCOSE METER 162 mg/dL 70-110 H : TESTED A T [facility] 6720 (BEAKER) (test code = KENYA Mcmullen [place], 1538) [address]: Drop 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/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 ID = [id number] for EMMIE JOHNSON [id number] 08:23:13 Test Item Value Reference Range Interpretation Comments PHOSPHORUS (BEAKER) (test code = 9.1 mg/dL 2.3-4.7 HH 604) Drop 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 ID - SARAH MOperator ID - JM LPOCT-GLUCOSE [id number] 07:41:52 Test Item Value Reference Range Interpretation Comments POC-GLUCOSE METER 135 mg/dL 70-110 H : TESTED A T [facility] 6720 (BEAKER) (test code = KENYA Mcmullen [facility], 1538) [address]: Drop 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/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 ID = [id number] for EMMIE JOHNSON BASIC METABOLIC [id number] 06:26:37 Test Item Value Reference Range Interpretation [...] 697) EGFR (BEAKER) (test 15 mL/min/1.73 ESTIMA MANOJ GFR IS code = 1092) sq m NOT ACCURATE CREATININE CLEARANCE IN PREDICTING GLOMERULAR FILTRATION RATE . ESTIMATED GFR I S NOT APPLICABLE FOR DIALYSIS PATIEN TS. Drop 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 ID - SARAH MSpecimen slightly [id number] 06:08:01 Test Item Value Reference Range Interpretation Comments MAGNESIUM (BEAKER) (test code = 2.9 mg/dL 1.6-2.6 H 627) Drop 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 ID - SARAH MCALCIUM, [id number] 04:58:45 Test Item Value Reference Range Interpretation Comments CALCIUM IONIZED (BEAKER) (test 1.08 mmol/L 1.12-1.27 L code = 698) PH, BLOOD (BEAKER) (test code = 7.40 1810) CBC W/PLT COUNT & AUTO [id number] 04:56:59 Test Item Value Reference Range Interpretation [...] PERCENT (BEAKER) (test code = 2801) POCT-GLUCOSE [id number] 21:26:27 Test Item Value Reference Range Interpretation Comments POC-GLUCOSE METER 157 mg/dL 70-110 H : TESTED A T [facility] (test code = KENYA Mcmullen [facility], 1538) [address]: Drop 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/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 ID = [id number] for Ghanshyam Russell POCT-GLUCOSE [id number] 17:30:42 Test Item Value Reference Range Interpretation Comments POC-GLUCOSE METER 165 mg/dL 70-110 H : Notified RN/MD: TESTED (BEAKER) (test code AT [facility] 6720 B[address]NER = 1538) [facility], 7[address]: Drop 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/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 ID = [id number] for Sing ariana, Harprempreet RAD, ABDOMEN/KUB, 1 VIEW [id number] 13:47:00Reason for exam:->constipation [facility] ZAVALETA : 1970 Sex: FFINAL REPORT TECHNIQUE: One view of the abdomen. INDICATION: 51-year-old woman with constipation. COMPARISON: Abdomen radiographs 06/20/2021. IMPRESSION:Unchanged internal/external biliary drain and plastic biliary stent. Nonobstructive bowel gas pattern. No significant change in moderate amount stool in the colon. Otherwise, no significant change in the abdomen since 06/20/2021. Signed: Mala Meeks Verified Date/Time: 06/22/2021 13:47:18 Reading Location: [facility] B1 C013Y CT Body Reading Room POCT-GLUCOSE [id number] 06:59:39 Test Item Value Reference Range Interpretation Comments POC-GLUCOSE METER 114 mg/dL 70-110 H : TESTED A T [facility] 6720 (BEAKER) (test code = [facility], 1538) [address]: Drop 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/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 ID = [id number] for JOHN BEGUM POCT-GLUCOSE [id number] 21:18:48 Test Item Value Reference Range Interpretation Comments POC-GLUCOSE METER 164 mg/dL 70-110 H : TESTED A T [facility] 6720 (BEAKER) (test code = [facility], 1538) [address]: Drop 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/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 ID = [id number] for Ghanshyam Russell POCT-GLUCOSE [id number] 17:34:49 Test Item Value Reference Range Interpretation Comments POC-GLUCOSE METER 155 mg/dL 70-110 H : TESTED A T [facility] 6720 (BEAKER) (test code = [facility], 1538) [address]: Drop 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/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 ID = [id number] for EMMIE JOHNSON HEPATIC FUNCTION [id number] 13:37:53 Test Item Value Reference Range Interpretation [...] Specimen moderately (test code = 347) hemolyzed Drop 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 ID Darian Hendersonecimen slightly ictericBASIC METABOLIC [id number] 13:37:52 Test Item Value Reference Range Interpretation [...] 697) EGFR (BEAKER) (test 43 mL/min/1.73 ESTIMA MANOJ GFR IS code = 1092) sq m NOT ACCURATE CREATININE CLEARANCE IN PREDICTING GLOMERULAR FILTRATION RATE . ESTIMATED GFR I S NOT APPLICABLE FOR DIALYSIS PATIEN TS. 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 ID = [id number] for EMMIE JOHNSON POCT-GLUCOSE [id number] 07:47:30 Test Item Value Reference Range Interpretation Comments POC-GLUCOSE METER 103 mg/dL 70-110 : TESTED A T [facility] 6720 (BEAKER) (test code = [facility], 1538) [address]: Drop 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/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 ID = [id number] for EMMIE JOHNSON POCT-GLUCOSE [id number] 21:11:18 Test Item Value Reference Range Interpretation Comments POC-GLUCOSE METER 137 mg/dL 70-110 H : TESTED A T [facility] 6720 (BEAKER) (test code = [facility], 153) [address]: Drop 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/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 ID = [id number] for SHYLA KRAUS POCT-GLUCOSE [id number] 17:18:01 Test Item Value Reference Range Interpretation Comments POC-GLUCOSE METER 102 mg/dL 70-110 : TESTED A T [facility] 6720 (BEAKER) (test code = [facility], 153) [address]: Drop 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/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 ID = [id number] for MARIE ROWE, CHIJACQUELYN POCT-GLUCOSE [id number] 08:06:40 Test Item Value Reference Range Interpretation Comments POC-GLUCOSE METER 143 mg/dL 70-110 H : TESTED A T [facility] 6720 (BEAKER) (test code = [facility], 153) [address]: Drop 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/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 ID = [id number] for Ambika bird (pca2)Berenice JERMAINE, ABDOMEN/KUB, 1 VIEW [id number] 02:19:00Reason for exam:- >vomittingShould this be performed at the bedside?->Yes [facility] : 1970 Sex: FFINAL REPORT CLINICAL HISTORY: Vomiting COMPARISON: None. FINDINGS: 2 supine images of the abdomen are submitted. The abdominal bowel gas pattern is nonspecific but grossly unobstructed. There is no focus of dilated, gas-filled large or small bowel. Enteric contrast is in normal caliber large intestine to the level of the descending colon. The right hemidiaphragm is mildly elevated. A percutaneous internal/external biliary drain and adjacent plastic common bile duct stent are in place. Surgical clips overlie the lower abdomen. There is no acute bony abnormality. Signed: Madi Terrazas MDReport Verified Date/Time: 06/20/2021 02:19:16 POCT-GLUCOSE [id number] 21:50:55 Test Item Value Reference Range Interpretation Comments POC-GLUCOSE METER 119 mg/dL 70-110 H : TESTED A T [facility] 6720 (BEAKER) (test code = [facility], 1538) [address]: Drop 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/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 ID = [id number] for La cy (pca2), Victori a POCT-GLUCOSE [id number] 16:42:04 Test Item Value Reference Range Interpretation Comments POC-GLUCOSE METER 127 mg/dL 70-110 H : TESTED A T [facility] 6720 (BEAKER) (test code = [facility], 1538) [address]: Drop 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/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 ID = [id number] for Do minguez, Parth POCT-GLUCOSE [id number] 11:28:57 Test Item Value Reference Range Interpretation Comments POC-GLUCOSE METER 145 mg/dL 70-110 H : TESTED A T [facility] 6720 (BEAKER) (test code = [facility], 1538) [address]: Drop 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/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 ID = [id number] for Do minguez, Parth SARS-COV2/RT-PCR ([facility])2021-06-19 11:06:55 Test Item Value Reference Range Interpretation Comments SARS-COV2/RT-PCR (test code = Negative Negative 9303795) Negative result for this test determines that [...] under Section 564(g) of the Act.Testing was performed using the Rosado SARS-CoV-2 assay.Fact Sheet for Healthcare Providers:https://www.molecular.rosado/wilfrid/RT SARS-CoV-2 HCP Fact Sheet 51- 836702.pdfFact Sheet for Healthcare Patients:https://www.molecular.rosado/wilfrid/RT SARS-CoV-2 Patient Fact Sheet EN 51-506785N9.pdfPOCT-GLUCOSE [id number] 08:11:15 Test Item Value Reference Range Interpretation Comments POC-GLUCOSE METER 134 mg/dL 70-110 H : TESTED A T [facility] 6720 (ROBYN) (test code = KENYA QUINONES [place], 1538) [address]: Drop 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/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 ID = [id number] for Do valdemardomenic Parth HEPATIC FUNCTION [id number] 05:11:12 Test Item Value Reference Range Interpretation [...] (test code = 42 U/L 6-55 347) Drop 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 ID - SAMEERAARMANDO Coy slightly ictericPOCT-GLUCOSE [id number] 21:42:26 Test Item Value Reference Range Interpretation Comments POC-GLUCOSE METER 115 mg/dL 70-110 H : TESTED A T [facility] 6720 (BEAKER) (test code = [facility], 153) 28677: Drop 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/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 ID = [id number] for LOULOU GRANT POCT-GLUCOSE [id number] 17:31:40 Test Item Value Reference Range Interpretation Comments POC-GLUCOSE METER 122 mg/dL 70-110 H : TESTED A T [facility] 6720 (BEAKER) (test code = [facility], 153) 96120: Drop 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/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 ID = [id number] for [place] LLIAMS, TYNEKA POCT-GLUCOSE [id number] 11:54:32 Test Item Value Reference Range Interpretation Comments POC-GLUCOSE METER 157 mg/dL 70-110 H : TESTED A T [facility] 6720 (BEAKER) (test code = [facility], 153) 54643: Drop 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/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 ID = [id number] for [place] LLIAMS, TYNEKA POCT-GLUCOSE [id number] 07:59:19 Test Item Value Reference Range Interpretation Comments POC-GLUCOSE METER 135 mg/dL 70-110 H : TESTED A T [facility] 6720 (BEAKER) (test code = [facility], 153) 10882: Drop 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/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 ID = [id number] for TESSA DAVIS HEPATIC FUNCTION [id number] 05:55:43 Test Item Value Reference Range Interpretation [...] (test code = 37 U/L 6-55 347) Drop 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 ID - JM Cespedes slightly ictericPOCT-GLUCOSE [id number] 21:05:46 Test Item Value Reference Range Interpretation Comments POC-GLUCOSE METER 154 mg/dL 70-110 H : TESTED A T [facility] 6720 (BEAKER) (test code [facility], = 1538) [address]: Drop 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/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 ID = [id number] for Nilton blackburn (contract)Medardo fatuma POCT-GLUCOSE [id number] 17:49:03 Test Item Value Reference Range Interpretation Comments POC-GLUCOSE METER 161 mg/dL 70-110 H : TESTED A T [facility] 6720 (BEAKER) (test code = [facility], 1538) [address]: Drop 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/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 ID = [id number] for Adelaida Martinez HEPATIC FUNCTION [id number] 07:21:13 Test Item Value Reference Range Interpretation [...] (test code = 33 U/L 6-55 347) Drop 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 ID - SAMEERAARMANDO Karmaimermia moderately ictericPOCT-GLUCOSE [id number] 20:52:43 Test Item Value Reference Range Interpretation Comments POC-GLUCOSE METER 136 mg/dL 70-110 H : Notified RN/MD: ([facility]) (test code = TESTED AT [facility] 6720 1538) TRAE [facility], [address]: Drop 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/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 ID = [id number] for Toshia Saucedo POCT-GLUCOSE [id number] 17:42:10 Test Item Value Reference Range Interpretation Comments POC-GLUCOSE METER 160 mg/dL 70-110 H : TESTED A T [facility] 6720 ([facility]) (test code = [facility] Benedict [facility], 1538) 29[address]: Drop 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/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 ID = [id number] for MIHIR DIAZ BASIC METABOLIC [id number] 17:03:54 Test Item Value Reference Range Interpretation [...] 697) EGFR (BEAKER) (test 98 mL/min/1.73 ESTIMA MANOJ GFR IS code = 1092) sq m NOT ACCURATE CREATININE CLEARANCE IN PREDICTING GLOMERULAR FILTRATION RATE . ESTIMATED GFR I S NOT APPLICABLE FOR DIALYSIS PATIEN TS. Drop 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 ID - FSESpecimen moderately ictericTissue [id number] 14:51:42 Test Item Value Reference Range Interpretation Comments Case Report (test code Surgical Pathology = 104) Report Case: [id number] Authorizing Provider: Jessica Espinoza Collected: 06/12/2021 05:40 PM MD Meme Ordering Location: [address] Received: 06/12/2021 09:22 PM Service Pathologist: Ofe Luciano MD Specimen: Liver DIAGNOSIS (test code = [id number] 3220) FuZzEwMzNcZnRuYmpcdWMx IHtccnRmMVxlcGljOTYwMV iqusTkUUSxtFMiD4Buwtyj IVslWH5nAB6puOkkbEOmiG SfCGNsNsZvb1vid460uBNh i2prRWDJraijmKa3rYwsD2 9se0T5SnusC16swVJiQZV7 CPUcUSCjrUKjWLJaNDM3XP NegDLtT0msEJFiKC7ltivf MZxjSJwbEHZbvGO6QANdbR AeS2GpVMLzLCpePJStruo7 ZuDrJx5rkWFnnCzcVHcpOB JkXHBsYWluXGZzMjAgTElW YKBqXMXTV6RRSJpfoDMbDF 1wFZHMDa0OJWISPK3DXEBy vHTkOL6lN2GZGJEPXN7AUv JdbPGbvMzfygCqBBtal2Rn NNqiCLVyWS1xbEmjVGQaII 0pHHLhN3uqeT7ovxc6JkWm RMDgHuY0FZZnuoB7Naf0SV CpUWhai7bhk1UlJSQuREh2 kIqzMuYtYZSkq6wtyrDfHh TzGFChTJVmETOmgDGcG912 a7wms5myfeSdlJP0BQBzJX S2NTlodmVccvY7YGfdhNDq FqO7AVyqhsXbYOksazXlxg XdOmy3ILJpZ890UXV0jUcq p0zjFHP8JYCuBQVsDsIdZb 1rjETzL026KVBiIIWKXIZs jEl1BVYdbtRjvzHgqQMFc2 52F343y6zcYUVhhsSgtXoQ hzaok1onY367BJKgwZCjjv QdCkLpVSDynCPxbVC0NBZz KH8exmkjGDevEKpxHKQroi W7NVIwkOQeN4GzOLMqYP6n crgqTLL2RGyaZFFfUTU4Zu SiQVBix8Ukdwx9FyVbdc3e xe91SCM4w3YpaCslUEJ4AM M0CgFiKz8ceBWmCJIqPP3s UkCkiMPlLYOewz76nOpzSC teWDL9DORnpqZdy6Uai3jh ByQsykEtD4gmJ7SmRACxUS TgCUZdAtVwvuLvv2Maq1Cg xKPxzRi1x9anNRMzUNWiiZ dlk9mwZOB4PATouPRoQ7ws rV6sCANxNK2khxbgf0egJZ ojYFlbFGEqsFJ6pdP5XUQn rTHuS1TagV0wSFMwALarIR Iqysv6MwImRv4zbZQlbHnq MFxzYmtwYWdlXHBnbmNvbn RccGduZGVjXHBsYWluXHBs YWluXGYwXGZzMjRccWxcbG FuZzEwMzNcaGljaFxmMVxk LeRnDMHsWIktR0nuLiLnQl KqQsa6KLOqmWEmBWLfPvv2 NMDpsFPxUHAYaXyjpF7qFT RjpRxjlK9pdLG6PYHcsfHg qCRWcP9kVNVYkZ8pDnJ1RP AyIvo6BRR8UfVsnDVvmZ6= COMMENT (test code = l1vrrEHfOGFjeFC2UbHkKN 2923) Vpd1ttt7BnnPYavXSpIUys vDLzexCrfq10rLB2hV38NL 4kTNHrYmT5PKNvzuI5Bsg8 WXJbRSKfbPUkI582a1bha0 bcsrVclMY6aWptIYGinlgu OfT8FTnrJFZclwksOMf4JV qjUVDujIT1XQHaeLYzM7Wq AWHaUP4fncx1JQK6BSosAD XsKuC5OSDjlRNjKYWrpWix BPlzq139QWZ5EaHpVYFnki CckZwmxK7xHfXjDKWUzGUd fKzxwU5qx3vqQtLqNKY1aJ BtrwGxEhE6hLBcOexfhWD8 WBVfe0vvFBDzf54lzNHune YyNGMcj2duSvZnSXWpg77u i7OlkJJpuCkbIV80XRpgJV 9wcFvvruUfUWvzowP5uZQ0 IGFyZSBzdHJvbmdseSBwb3 HdhId2SJOot2CpL7w1PGYf OYKdCR9qdHUin2QsEJWsdg sbZK7dQB8rI9S6oHBgEQWg ihCOFuAaKLreoIHmc7fau9 NwO0liyTtzNVnei6IilP8f BpShNKMuxKThd36cbIn6UA KzMLYDBCIyKCV4oeXbdK9m qIyrvI6hTGZtnv9zy3niZL 5pbiBhcmUgbmVnYXRpdmUu PGWDyRWenTrdlY9mxEErRz KwpqMyz3f3YLKxVZFjs2Qb wfIaeh2vNWLoiCXxcy7wKR Lix77cC00djU4zAVXmpPVh YKIesKZulS9ei2toxFWiYP 0pKBFbMmA4XeNkRiBgwRAj nb97IKRiRZSiIAIavS9aaB 4nkxKgFJflqsLxwoXrXN69 XOCzy6msyfzwk5RuspKrpo 9dYLDfvi49aTOqNINykcTy k1YmsZYqxBHexSKvrzOytE NsdWRlZCBjbGluaWNhbGx5 LlxwYXJccGFyIFRoZSBmaW 2ikI4clrH3DTJpIZOvnPQ4 NOXzqY8lQNSvQAGwntYnEV dhZGljaGVybGEgdmlhIFRp C9WoUXXsbm2bK4Ipj03fEI IvMjcvMjAyMSBhdCAxNDUw LlxwYXJ9 CPT Code(s) (test code k7jqwZLzGWKtgMW1YjPqLS = 3357) Xzn5kmz1WnyNAqyYAjGAkw rEKswoJnan88nFM5yF75NU 7hAPKkXfT8PXNigwS4Bap5 HREiSXTldCFnK350f2hiv0 fbfhKnvNY2qJhoRDGdqhux JeG0DAyhXYCuyiiwMOi0PA xwCCVndGI2NUXjjBHdN9Rg KFKbZJ3swna1DQX5HBlnIY YnSfT1ZQDnzEPoROXqeSmt XJbon604LLN1NkYeEUSrhl IuzDlvyN3lYkWkXOL5OPJz WEdjMSsiODOjDOy9UfDlSM ggNVxwYXJ9 CLINICAL HISTORY (test i9mbzBCtORPyxUI3BpLaSB code = 3356) Ykj9efi0LkySZwdAGyDTwp wMJbhhVjij81dLS5wN66AO 4lRBZtCxM9XTOqsmK5Uad8 IKLiLYKeeOSlD124w1zqz4 mszzCuoPH4wZttQQUwgomq PnA0LOeqOOKciujmHRd7UW uoHARnxAJ7UYRjqIDrM5Jc SKFpSW3nsmy7YMD5VDgvPG QhNuC7NBIhbUKcZAWsrGot EEanm652PCX2BtQuFLSrtd FqqXevpC3fUcPgCZAKjflc cmdlZCBsaXZlciBtYXNzXH Bhcn0= SPECIMEN SOURCE (test n2ivxCHqOFFvpAS2IeTvNY code = 3377) Cne7drn1XzcBHwaDHiIHsw pMVughSict01rFY4oZ66TW 1lSROlDiC6MVBhzgZ7Usj1 SKQzAGWyrPKnA563r1xhh8 qreuNihVA4fQygPPBiqbtt IkQ9EDznHQJweryqDDf9QV wwWCXksLF2VSJmqHGkL6Fy BSIkDD4eksk4OHH2RUroAC IwNbL4ENMnbIQdXCDhlNqc UYebj300FVP9LvObWSHmnz SkbQheeM6vXeCxGIUCgRMo clxwYXJ9 GROSS DESCRIPTION (test t0mudNCtOGKwhVW7PaAiNM code = 3366) Wps7lly5WsjGIwmLAzFXhr yRMcnbCemo17lMC8sH11AH 3gBNPaVvW1UFWvflH7Vex2 KSYaQRNwcJRvL625d8kts9 kfcsRbaZY2HRVxNKVvP2Ap ZZ5yMSClgJAiI53iqPMoFZ L6GFYxPTJbwZWsFLKeNIO5 EMTnjOAuP4hhQLXoVO0gmx phDOrjFOqyGCBpiYN1WVAz gAJjJ6ZiZMCoJLspCILqau z0CcPkTj5dkYQeyNxeQXnp YXJkXHBsYWluXGZzMjBcY2 PqIFIcW7GwERWeKDh9KYVa nS8eVo9nzOBatH2oX0KdPP VwJRHlhQIrJCXrFRSck9e4 yNK4gZNdeCE8gIKlmReiRI 1bjMIuYV6FMuMexgEiK9Rb MTOtR4VpMFjoayCbKQAquU 3kb2rfX0AkOY7wDDynPXJz ZWNpbWVuIGlzIGEgdGFuIG NtuvYzlvVtNZlpAYUej0Or eTVaNJVpvANwpzpwJI87JB XpCIuyCkPtbQ2ddUNnP4Ci KFJ6SGKrURAbR7WsIBZoVL vdBKCiCB8kkEHsSRHbEHRx NOWqVOXpdAZhzF1murHkla WybZx3COMpXXMsjsUus2Bj yIk2gMXyDUgwVHNjnX8nbL 9bBODsDIPghbicHVUyU2Nt tSJdDGuoAG1yZRmJQQUgLV NDUClccGFyXHBhcmRccGFy fQ== MICROSCOPIC DESCRIPTION a7ugaHBqRNNtpWV1PbQaTC (test code = 3371) Kyx2lua0BbqFXqhWUrLGbo aLWincVtby80hFC5kH18HJ 0bJHWfWcL9CZQvjdF0Ldp1 RRXwVEHxfTKmT628g5bxh7 duyhAmnQY6nNbdZCAywykg BiG3GCxxKMNiyfcjTGy8JR geXNGgdAH7PQCrqMPrE8Ed WMAaAF4jcqe3PLF5SYvgFZ TuTlJ9RSEzyJJkNOZkuNzh MApmf332DAG6ObRvQHOpix TccXtexS5nXrZrRTYJXCXg i7VhAQKkmHOgfD== SPECIAL STUDIES (test s0twiIFsXKWzx7hnIOGynI code = 3376) FuZzEwMzNcZnRuYmpcdWMx BRnzenKuBIllz5UzC4AvOj AwMFxhbnNpXGRlZmxhbmcx YSPfZIG4pwFeGZCzERdaXR LsDKweHu6ovHCplAmpRaPr BQGzt8adcjMBpumldNs5l4 ueXSCeWcU1aXTpVXekB4na wyBjvEZcA0VklYXdsAc8e1 woIzYrXjM7kDYuUAwfN1is ixItkOHtJTMuSSn1gB74WH WpwX5mgTMjRJouszNaYwH5 LCylZKEtPuG1DZUrvZTfHY UyL2ezDMWxHQeaJZZxIJxz iHMtWOF0gUsxn0J7ePCyhU FlmEhgWgYzEqMcVuGBu5Ch GGk5yLtrX1ViLJVuZgQ4yH QgUGFyYWdyYXBoIEZvbnQ7 sSxmdqVxe31tdWEvHRXcCT BlMbZwpApfCAFmQMGMk4Nq vEnuUIH3eYh1oKdnAzqhLZ O8Mpp6ZM3utv43bjd4pRsi FJIvkpfeSpZ8ESdkNOCrkn qsOKl9GEgpEKCduDI8BVVq eXLsS6AvJXSrZI7yiob4IE V6MQbuFYVcKpZ3ZXNjqRNf VRXcrHqqMDkap305XVD4Sk EpTV6lY3Ove1R3rR1irPAv HOYefIMkVkUxKXSldo2pqR CoHJewb1YpLAK1xkU8qPZq sJTmLUMkWP02Rpmqe2VpQu fgp0AkF98zeXB0UIdzn5ml HW3uCzE2koFvWXipv3ntfB 5jCxX0EGcaYD6vHT8uNVXr tH4rpfkyOQXuRyIlsjscIK TcdRxmdsHwYa4vpWkdJMM2 UKybV9quqA5wTlS2WOccT8 dppD1rZCa7EKbbjEE5YONx fR0jSE0mhiltw8dyEWejCZ zhEPXdvyG3rnE1SWWmcDUb T5ZdsV5oBDDnKX1dvuqxf7 ksNVR9CQlaKRUiQYR3HoCr CMXfs3Pqkyj9KoKoe1JyrL EpRYyfE21lo056OXAanuZt Z7etuHImyoyniUQuwhumLY affrW0EVXoUDWfJTggLFMo XGZzMjJcbGFuZzEwMzNcaG ljaFxmMVxkYmNoXGYxXGxv Z4llArMrD1TeBWBjMuQfMW teJQnjcFXhkJHkuEF1gY3m JR2tDMMokOHqQ6PwJFFayv HazSXmSTE0qXGviMDpOU6v BMijuRQkq7nhl2EuD3aibX zysDY1OZ7jCQJaQTExPZbm c2XlmM9gRfssgLHoqytpYG xmczIyXGxhbmcxMDMzXGhp T2mgVtWvDJDpxGfsDRlfb8 NoXGYxXGNmMlxmczIyXGx0 cmNoXHBhclxwYXJccGxhaW 1xSyGsSaUtIsofQF1iHAZy R6smmTHgPFXyPTSjZ1dpZy KylS1hzYcgJMjxYfZfAbIr VaVBy328fz2zINBntKBnfj AGoYYhdW9nCEcfCAtbIDiu kAPhGRwxr2kzGNLxy7s4eX CeVKEhdkFna0ntACvzitZc WFVocCUtkGDsOTCeb42uYR vuwCrgeGagBRVlc9NlyOnv w3VnTmEaIZnmz9GsE51qoQ JvbCBzbGlkZXMgcnVuIGFs o20pq8faGZQkDrB8wAGrrT S1mFHlaYPjg9RgfAwwYHOs l1qqBDRctt5ueknpcBNlx0 VryD3qskpoGZvcrHQstxLa ESSwn5b4bWPzXQEnBBEsTO xydWf8WWVpi687nq7nxtT2 uDEtMFU7OWxsWNDoRULxgl UgZXZhbHVhdGVkXHBsYWlu XGYxXGZzMjJcbGFuZzEwMz NcaGljaFxmMVxkYmNoXGYx FTnvH1qwAfXeO5NuVOHyDt KfeKVvB5umwWEtELDmMLjz XGYxXGZzMjJcbGFuZzEwMz NcaGljaFxmMVxkYmNoXGYx KTpwY3ggSrVcS2KwMDJaWj IgIFxwbGFpblxmMVxmczIy DBinwdzkGEUnKWvuY3ekMk OdREJasWjbGSjqx8LpLMHq AIFmFtirvsMuCGg8pqKvMW BhclxwbGFpblxmMVxmczIy QVgqualoGMZmILgnN7fyGv BlKWHkpTulPAhlr2DhFRXg XGNmMlxmczIyIEltbXVub2 yts9JqY9grbFdnnDV6DPMz P2whqERvgAM0DBV7zA6hUQ aocnNsUOLts8CqNXCtYMGv OxD4oZ8cUGV8WpKDuIpoOS BsYWluXGYxXGZzMjJcbGFu ZzEwMzNcaGljaFxmMVxkYm DbJRJoASqgA7fzAeTlK3Qa HIRaFgOouQinHPhqYTn4Bo xwbGFpblxmMVxmczIyXGxh xzcgCAYsHEpvR0efLhNvUA TylQsaRRypl5DzMENaNUXc MlxmczIyIHMgTWVkaWNhbC FRCE62SFXzFMAwmSlinF6w tYWTQDVaozY7r5Z6VOwbEW JdGXm2JHmhygSaFFHebR5m XHGyXX8oJYk1kgWcGYNxd4 AbPO4jHDOpbJCgOAL4AEKp r6QjE1Sza7XaPYVqXJHina 4dygJnMnPKdQGqCFMfap36 HTPmFB8wH5kkHMGhHKOosl MgpXOja9XqNCFgvMH0qUQh SJ2VXuTPd11dWRYlFZXWlo AyZTEesJmlpXG2taA2uM3d LiBUaGUgRkRBIGhhcyBkZX Udza8yiaJkOGLxQZKvd2Kr fKRfbKBghfEwT7Ric9OaOX Vdkv20QMymtQOkby90IS4g O4Und2IpnV6zZOvjQGKlo1 NmnTDmnUJkMONhz4DsY3xl eiruRPqumOHdtW5hUHOvZY q4PLKma3JnMUTwd4IlUlVg xzFaUREjDOFuKLOloP48WT H5cEgqiVcijeAhRZ0cWPSf szTlSJNeRLDzlE7pAUkhpj IrCZJymsI9p8G0ILrkARZl mgXuNujyJZO4qrMvbqY1tL OrZ6icarjrXHmwTHIoc3Bo wP5wbYOAiLDpf4HfqPChmN ESbXClVL1ohvYdDQ1uVXD0 ODggKENMSUEtODgpIGFzIH S0WDmsOzkeBSR2klAbKMTy b9MfDDtxL5rlN88boMdwxG e7lSGtvRxjaNAocNNvLGKt bmX2r7A6CBJon3OjcuptLO BsYWluXGYyXGZzMjJcbGFu ZzEwMzNcaGljaFxmMlxkYm YuKLZgVLvlJ3vuIgHlZvWe MzodMXI5yI== Gross assessment was [facility] performed at ([facility], = 2777) Department of Pathology, [address] [place] [id number], Technical component was [facility] performed at ([facility], = 2778) Department of Pathology, [address] [place] [id number], Professional component [facility] was performed at ([facility], code = 2779) Department of Pathology, [address] [place] [id number], [id number] 14:51:42 Test Item Value Reference Range Interpretation Comments Case Report (test code Surgical Pathology = 104) Report Case: [id number] Authorizing Provider: Jessica Espinoza Collected: 06/12/2021 05:40 PM MD Meme Ordering Location: [address] Received: 06/12/2021 09:22 PM Service Pathologist: Ofe Luciano MD Specimen: Liver DIAGNOSIS (test code = f0yvmLHyVAQpr5ltCBVpbW 3220) FuZzEwMzNcZnRuYmpcdWMx IHtccnRmMVxlcGljOTYwMV qmqaKjQHBkwLGcL4Gwadet QVfiQM2iDV2vvTfluCXtfI CoWSFdMpYsc8yfi795dZLw u5sbEXZLtkaawCx2kYnyO1 6hu3B1NxdlX24hpTCrMSA6 WABbSDAwgYLaGSWiETP9SB IzwBAwD6tuDWXfBZ3rixzm JQdgNSycRLQlaFH7OWRsdY UzP1KlGZRmYHooUSLdsqx9 VbRjQe6blNWbhZdtXXknPF JkXHBsYWluXGZzMjAgTElW TYUzBPOFI2PDAAadnMGeVN 3uAFBQTv7YBPTNWG1UGOYm fOCwOB6yL9OTDFJMPE1PHv HvfVFaoBahpxOgNIwjh8Pq LCnnWVAtWG8llHekLBDoAT 8nOUUjU0kykO9cheg2LcHm LMMsVlE9WMTanjQ7Cat2QH CvQBobd2bhn7YzSRJhWEs6 oZurBmJsKTYry0lwcvNfPv CmHXFlFEDaMTMmcHWvY355 l3rri6wvqoAowQI9WZYwFA S8ONosnlFvljL0QAjboZXq FgI6JYosfiKuJGbxzfBtsa EpIci5GRZpZ853CFR1oKnj d6mdNPX9HIDpCQDmSeYrRz 3zcFKjY914OCHdXFHTJEMo sEp8ZEWnovNkxxXetBCHn1 11O782u5lzIBDjqcPccGcV uchdd5gpV724EZZbpTUfge HnLqIxRBXgjCKujXA3BZXy VO7rybkfQPaxEVejCRZihb Y8TYGfjEGbJ9PtSHRtLG2b fmtuXRS1SYfhHOWkHRF5Fs PwBUBed0Fwkvb6SkEjwn9x ak85TZD8l1LkcVhyUOO1ZL B8ZdKsUz5cyBJiLCYgXX7k DjUrrASqJYSgmz54jPicFR kxSAS7QNAmhnQmf2Mtj1bd RtAdggKvW6knJ4FpDDWqTN KwTFXwSgRidbOzp1Iym7Fa zGQhuWj4u9kzCDUtLKGulM zcw7ckIZC2FAWouPUkN6wq kS7dJXXkJJ8flflno3urUH xuANbuHIPcdGR2azC7UHZi pJGkD0AekP2uCDPgQKjxFC Dxpnm8EdVyIa2tdFYhvSob MFxzYmtwYWdlXHBnbmNvbn RccGduZGVjXHBsYWluXHBs YWluXGYwXGZzMjRccWxcbG FuZzEwMzNcaGljaFxmMVxk ExTuOUAlWMhwY0mlOjAiKj SbQre8EASdjBMkUTXwMzm9 PQRvhCGlBXAOkYchuY6qZZ AvlFlbmD5tfKG9HXBnhaPj oEUObV7dOVQTnJ6hAaP4UC JiFgi1LLS0GnEcdOMezQ2= COMMENT (test code = u4mooOTdDDFcrZM9EoDvHU 3359) Gjv7gvq6VakCXriZUxEHcj cLMcfpFbov44uOP1bI93AM 0lDORyBoG6TRIrihB2Tlv1 HWLkMICkxECkM996h9ybq4 goqhYldXH4rRxaLUNhmteu PgN9PDfbPCWodefoXZe0TD ktGNDgkWN7UBMxgTUoQ2Zn YYNwEO4rray4TXD5YGnnVY CePiA7JKWqcEUvIJPesRtx MVqkn230CGK7OiErEVHvem DryHgczT5yXbXeGEMYqIUt kBhzvZ4vq4cbHxFhYLE2oM FzugBpSbM0uPIeFajmaXV0 HIIgm0lbHYNxd04vkXIuri CpMINzf2jqRtWqNEQyd48z l7GcxMOtiYzoVM80IHgoGH 4zcGobyqSrZTusyxG8dIF0 IGFyZSBzdHJvbmdseSBwb3 TsuGm3SDHza3UiG5j5YDJd FPRpKQ6zlRSyt5ZiIMTkfx myCT4vTC5oM9N7qYNxVNGs ahTUPaYaUUsltQSft2vky6 EkM6wwmLotIWpqz3IyrL4p TbFmILQdzUIao60igRz5VI EfGGGKZLWiSER3yzZqoS5p bLkcoH9aXTMvpj5sn8czLI 5pbiBhcmUgbmVnYXRpdmUu TFSZmWTmgJdkoD7vfKKzJy JvglLbh1l6KJAzQIKar7Ij oiXinf4cHTWyoFKpko3qJW Wvp64yF25ihF8bXSIurAOl ZGBqpOZbvF6ts4kmjOWtFU 3qYJOeXqK6BwDaEkUqnRRs ed91UQTrTHDnNGRjpT2lxY 6liuIhXQtuplPfjoCcDB47 ZZNtp9mmudevt3VhoxBmbo 3mFCHgbe04rUFbPUFbhsTp g9PzaSAlgNVxrINozkMinI NsdWRlZCBjbGluaWNhbGx5 LlxwYXJccGFyIFRoZSBmaW 2ttN5tlfS5LAUhQDEsrMY9 MYQoxW8hDOBtIXLgwfIaBV dhZGljaGVybGEgdmlhIFRp L6WyRAMvjk7oR1Rnn07qFM IvMjcvMjAyMSBhdCAxNDUw LlxwYXJ9 CPT Code(s) (test code x6eglSKwIBAqiHC7UoMlMV = 3357) Nls2hax8NbqUMwtBVrSOey nENfshHpop17pDI4lO39LL 3lIIPtHgQ9LXLepbM9Vgg8 EOBeQAMfvJAzQ546i0oif1 ghevWzfXI4dZymXTOvkhhc WsL6KBjmBWIlsujtSSh2NV cfBQWwySE6ONNvqCFpT9Eb PMCnGH5imzu2AUT5KSpoAH LdMfX0FJIzqVApAYHwgNhv EDvyf881PRR5OoKxWPBryz NpyKrzsP4cDlPdYVE5MXDn BHxhCTinVTHoSJj3ZiZsRW ggNVxwYXJ9 CLINICAL HISTORY (test n8zfdWQcIVIsnXE5KuSdMI code = 3356) Uid1xmp9PdyYXmaWFzCVxo dKIiauBtzm57kBW8zY87ZU 7mMUIjWfS4BSLhalY6Kww6 RTBgLUFiyGVzK622x9iva6 clbnUxaTT8dQdaEODotjdi RyI1QQcsSVAkupcvFRs3QI pnLNEqyHT1CDUcvBUgJ0Uz BSCeKV9hmop3MQA9BFqyNR TcPsN1ROPkiKMpBNQpaXgo ETklp184JEB9JpKlGWEaxm QymZyatG3qFcDyXAILcujz cmdlZCBsaXZlciBtYXNzXH Bhcn0= SPECIMEN SOURCE (test x9obgFHdORXllRA5BsOrNJ code = 3377) Vgx2nxr5MucXSbxPLbSWcz yMOxslUtnx82tWH0eT97ES 7yVDUnFnU7JYIszcA7Duz6 JWRwDUOdeHQkR842v7dbj2 zlidUbnCZ1jWnnEEIzwxec DnI0SJvwURHmdypdKCr7ZI kdUCPsaRL3GPVcxSTiE4Vr BMGiHE6xgoi6IJF0XPmjTZ MjAiT5ECIraURuPTDieLon QQkpb383LJH7DeNwHCSton PwjWvffV1rWjEqRIQFbRDm clxwYXJ9 GROSS DESCRIPTION (test m5jltXNhKNNhuME6TyHvBX code = 3366) Aza3sfp6BgoOPjbZWtGFze rAXkkwUuqr93sVE4gL66QG 9sRFVeOxR0DRDfqmD8Cvr2 JVYbUKSyhTJsO889d0flo0 twhbVmkCM7IDUqKTTlY2Bl DL0vMQCxsUEuE82ecZZwTY X5JOFkFSJlgUNaKOBnYNT7 APWbiMIvH8evDVEqKC9tvm niQYuhLRiqLJDfnPH5NQHd mOFsH1AoBPXkGPcwEAObzc u3KlZwEg2crXQfdQhkOBut YXJkXHBsYWluXGZzMjBcY2 KmVFExF8PkTFFkKEi9KEOm oM8fFz9soDRqrN3pN2QaSQ DpCKHzjUSkMQAyPNPgo2r8 zNV3oCXlbET5gHQejJjbYO 7nhKPkDY4OPwQpraMyQ2Ku MRLaP2LjVSyguqZyXQUqkH 3gd2jiO2ClMD8rIIilDRBq ZWNpbWVuIGlzIGEgdGFuIG JtccVcbbVjWZpwMFXxo7Yi cDLdZJYzqDVcsabbLN59IK LiESdfEmTffJ2cgKRdL3Ev DLC9PXTpAHFgO1LjIICaBB vtWANkTV3qfCTsYFZwNWNn QVJtORCarINhbM0bdfSdzn BfhJo6EPNxPSWgfqRsj1Tt wDd7mLVrKPybYCBmyE3nzI 8xASJmLZGswjfxPZZsQ4Wt eYMiFQrhOF4dLBrGAHYiHB NDUClccGFyXHBhcmRccGFy fQ== MICROSCOPIC DESCRIPTION d0qrlXHzGXRssEV7QjOsIA (test code = 3371) Vsn6zsd3YofKHfsRSwKSbb aRPiugNxpx83uWH7gY74WQ 7lFXJsMlZ6PZDyduZ6Yta8 ITMtNHGewGMsT410g4wdg7 luduHzhMB6dVktNRJsgbmk SvE6RCxyJWXpkqokPUu3NY szXKBtfKQ3RJMabYHpP0Bw FMOfWE8fnkw4SMR3GCwzKW HpZnW5NDXpoETjTMImiOnl NZbtc139WRI1SgVyPPNlxa CneMtraP9qLnOeFEKQHFFn s1EiXDKrhWHlbX== SPECIAL STUDIES (test m5dppWDePWIzu9tfLHZoiF code = 3376) FuZzEwMzNcZnRuYmpcdWMx ERgqseKzBWdpf9GfT3PaHt AwMFxhbnNpXGRlZmxhbmcx YHCgYSJ2zbQoPKQnGZmdIU IfBXctGh8jaHPsnRwrBeTz VXTcz8ypnbJBgpkniYu9d1 etXXDdHuX8pBZbBNmcQ7fz plEkyGTzU8EgzQNrpMk7m7 vhFnVfYrL2bUPlFEvwM5ty lqOtsKCnAYCeRIn8sJ19LV TptU0tuYKcNUevxhMgUgT9 DOkxMKThPiA5ZDPmlIFtSR HwC6evRLHpDCvrCEWmOHth zJCwUEL2eKofs7F5wCBcgX PdlUleXfDsOxLuHfENw7Ua WRi9aJcvD7PxDZOjOcV4fJ QgUGFyYWdyYXBoIEZvbnQ7 mZfdmaSgi40irEYyMFXuLY WfWaNsgFjlSUXdYXMWh0Dt eTxbAQF6ePy4iUhaQondLA Q5Fqy9CH1cus21wty7zIiz GKKkvetjXrB1QJolLWQzdp xjNUq8EQivULRjlTJ4UHDs qINoQ1UaFMYzOQ0xwnb6CG Z2UYhaTYDzNwW7KEKvrDSg GNAwhPlsTApvp898XYE8Ht XaWL2zP8Pxd5P7jK5ezLGi ONQzpUKnPbIrPBWobz2kkJ DtARodn2HoESV1xnO4fJXk nTAaWBNeCE42Rrcir0HaEk qgt0AsT75mnYG3BAbhh2tp PC9cPhG9bnMxHPnpe9xudK 3uWaW8GEuqKC8rJW0nGBIh fY5kcogpHKWlDjZdvovbGO McyYxgicLaSs0nuUbqJUM9 ZNpiF3zjlE0wVsE0CFssE1 uwqI1iLAt9RJtyyLK7SEHc gY3oIY9imfwry8xqOMysJX zzTBCmagD6bcI2TMIikTRz J7PhpS0hUONjSE0krcghc2 rxWVG5PMudMRFtNII1HbVs IOYaq3Gopsk2SgVzz0HruG OlAPqmT81gk565RQEbpmOj Z4zykCFyhahrdBUpailuGF dteiP2JDZaKMRxLCahDSXv XGZzMjJcbGFuZzEwMzNcaG ljaFxmMVxkYmNoXGYxXGxv T0fgTdYiR7AfXWIjFkKiXF knCJsozGZoyZApoQT0yT3d IV2mDQUvfYKfH1SyICNzaz TlkXDuLZW8fHGqeDWoCG7j QBjeeCCbi1hqs0FuF3fqrN bugCN6BF2sKKVlNJMfLHvk p3HjxC1yVmyyyPVyvetsBG xmczIyXGxhbmcxMDMzXGhp K1sbAlYaMATkmBhlNQtil6 NoXGYxXGNmMlxmczIyXGx0 cmNoXHBhclxwYXJccGxhaW 1sVeAiAiDzNkrtTW8cWKKv W3kjfDCnCGZnAZFyU6tjJc IltQ6eoZpjXGxzYdEcQrBn WvAPj742og8bMUGipDIifq RZyEJlfK7sKBjmMRgdNFjo jXHkNYxtq2ooMHUam2j3qY JyAMOomsNmj6zxGAfkpuHp UASvwHGlpRVxZMPib05kLU fetFthlHaeTFCbe2OihVpw p6YoZbObGAwph2NjD14evK JvbCBzbGlkZXMgcnVuIGFs a97tw7maGMHvNoA4iFRguD Q4uHXkrJNty5EamFxnKRPj f5leIOCnqp5wzcymqKZbo0 RusQ3uwpwdGCxevXEvpdRv QCAgh9g2qMNmJUThDSXfKF drdMm0TIKfw804vg5hibP7 tXQtHKA1TKfhHUBtUFKddy UgZXZhbHVhdGVkXHBsYWlu XGYxXGZzMjJcbGFuZzEwMz NcaGljaFxmMVxkYmNoXGYx YXltJ5lwQqEfF8HfBNQyZu KckTPrQ9xmeUVwNEXqJIrv XGYxXGZzMjJcbGFuZzEwMz NcaGljaFxmMVxkYmNoXGYx PIjnJ6cqNkMjB9KtQFQjJd IgIFxwbGFpblxmMVxmczIy DHglzlokOYBoQTsxQ2tuUo PdPGElzZnuKDyki1PmFHOk DEKlAouzvwZyWAw5znWtRS BhclxwbGFpblxmMVxmczIy LZpsmhcgIVDkWMlkJ8diSx NdDOLquJdcDIiot7MpKOCd XGNmMlxmczIyIEltbXVub2 bfa2TsC3gfgWwasQK9TVJz G6fwgDMwtKV4ZHT0vN3jOF usuwNjTFDas2GbSYHoXGNc TdH0mR5rKHT0AwAAwBwfZF BsYWluXGYxXGZzMjJcbGFu ZzEwMzNcaGljaFxmMVxkYm FaAXPpOUxzA7btQhWjT4Zx CDCzMoHvvQigUOdeQWa3Vr xwbGFpblxmMVxmczIyXGxh ioyxBAYvVWqwO9dzRoCpXY TrpPvkSIrer9IhNLWiONSz MlxmczIyIHMgTWVkaWNhbC YHXF98EZKmTRTfcNwouP1f bWSXFDCqyzU7n5O4IImbYJ MbRAd9GSqbuhLoWPVkbK4c TYMwIY4yPWu2rmQoEOCgd4 GhIG0kOQNnaGUuIOI0XUIm p1QcT7Wgc4BeYRCrTVHwsn 1styPkIpZYbCGtWRHhoo85 PZGcQB3wS7ocQHSoTDFjfo ShzAXpx1GbAKTjbFC7pMPb KC4SOdHAl76hUYMlQLFDge DfNPZpuToggZG9yjL4pA2f LiBUaGUgRkRBIGhhcyBkZX Ssop6joaGgLZWwMQHew8Wx hQTzhVUzpvQtB2Ewa5ZtXP Wchy87VSklaYLluq80ZJ6w I0Mfl8HqvL0nEWxdKRFbx7 BrvEJebNZuLVMri4ZnX7er cwrrNGqwcJQkzG0pIYCfWC m0QLHwn5LuKYKba0RvMhHi lxGjNRZlYGGyNKAwoE13QY M1yNeebZyhqvDaHJ4rRZQn qkUxRRLpGMJehA7lATlvks DoSAWeqfF0a6K0HBqdRYPs wpUnHfkuTBX2luBilqP3jD QzH8lpnodcNCnsDTGfo8Xz rQ5flERAvBLfy1JboVNlwD GAvAZqBG7gaoThXA7rMDJ8 ODggKENMSUEtODgpIGFzIH C6DXhrAntjLMA0oiKcSAGr y9HaQOhaY1yuO71lbHiifA e8rFYklAvupBCyjYKwVIHy zqZ2j4E5QAOcw9JkynpzKE BsYWluXGYyXGZzMjJcbGFu ZzEwMzNcaGljaFxmMlxkYm PtYUYoDBsmH6jfJaEyClEm GvtmVLY7eK== Gross assessment was [facility] performed at ([facility], = 2777) Department of Pathology, [address] [place] [id number], Technical component was [facility] performed at ([facility], = 2778) Department of Pathology, [address] [place] [id number], Professional component [facility] was performed at ([facility], code = 2779) Department of Pathology, [address] [place] [id number], [facility] [id number] 14:51:42 Test Item Value Reference Range Interpretation Comments Case Report (test code Surgical Pathology = 104) Report Case: [id number] Authorizing Provider: Jessica Espinoza Collected: 06/12/2021 05:40 PM MD Meme Ordering Location: [address] Received: 06/12/2021 09:22 PM Service Pathologist: Ofe Luciano MD Specimen: Liver DIAGNOSIS (test code = [id number]) FuZzEwMzNcZnRuYmpcdWMx IHtccnRmMVxlcGljOTYwMV bqzyOeWTEjbMMgI0Ijpwiu DVqpFB1mLX1efSuwpDWlbI SdYJZpApYuq1zyh745mYGg f8oqSLDAqtoitOs8dLcxO8 7bu3I9LlmwJ49vnKYjSNQ3 RGRlNXVguUCgMVMyCTD3QV QjaQQbE2agVSQdWW9toaru UIczAFzjGTRzdRF9IRRmmL KhF9HsEYYwKXzhAOPktkd5 AkLnZr0kjAYalOwzHRciOF JkXHBsYWluXGZzMjAgTElW IHKaCGVQZ5LRHNkcsJGiMP 4kSKGVUc6DSNXHGT4QMAQl nYQkBW3zB3XHIIHBVC9IFg HwzSAekBtlbkZbKYfzj8Lq OFsuAQExSF8xkRzvYCQsKA 0xKZQiF3ejeP4yutx6ApEs BGVsBgM3NHKwdzP0Jkd8SA FnCOdri5gad3RlWQKoXYu0 eOnrCeLzGHTgu1vzjqQpCn QhRLQlSYKoVTBiiUFbL652 l4nrv4gasyAkdYU6DMHhWT H2MIsoskKgbtW2TByicWOt AyS9YKpfhiXvXEnynyOdft HaDbp8JGUsI755AHF0xEpk h1pwDWU9HLTyQKFlQhSeXg 8zxPEzN997USDnTOWXMLTl oMp6LZZbmiWgnoGyrJCRc1 99I938h0pfPEQybrOrlAnM tzgbq9skJ693FTNkmFXfgg LgKtLuJABltNUtvBR8GYIl CJ0ypghlTWtmNOtkNJXaur O0VKIwdKXrY3RgSYMsDK2v wbrtIHL5ELicVNCoRHI4Cg YpYLLzx4Szehg4TmLrcf6q yp16MVH9c4MuvMxwLDH3ND M6VxShHe9kyHGeUHCmBZ3x HpOvjXYyGJMhee10tMivHP uqESP4LRRlspXmh1Faa4wm QyIpafKeY1oyR8AbJLTtLW RvWRZyCgOzosFgu8Ktl6Ob bSHdjEy4v3jpGCViBACbjO fsm7knDSO0HJWdiEUbQ4rh uK9aNAVaRJ4lnnclr7ljKU tsUAqzCFUfaFX6xiX1OTCp iEQjG0YtmK5cUTQjFYupYC Whbof8ShGfLu4maULcqLen MFxzYmtwYWdlXHBnbmNvbn RccGduZGVjXHBsYWluXHBs YWluXGYwXGZzMjRccWxcbG FuZzEwMzNcaGljaFxmMVxk QrUlUPXhTVmfQ3wzNpAhNu CyTox4DPYquMUqIMDxIok9 HDGleTRsGBOAmPiviS5xFF RkpVhsvH1wyNF8AYQyrxRm kCFPxG9gGHFNsI7hFnF5VI SqMbg5JHI5SpDbhCHniN6= COMMENT (test code = i0jesUYgBUQjwBX0NiQfKD 3359) Hqr4nwa9QyvKDgsSNtIFio eGFvbnAcen33zEY7jY69MB 9fZVMgXgB0DMPsunC0Xua7 IQTmVFSanFVuU368c8djn7 nvcoRalKI6xVktWXLqivzf SvK5FTyiGVTfyprmSVw7KZ erHDNupKN5KKDofGHbA9Ph BTVtQH2gfzc0SCJ7OVqaCG UxYhN6VZPecOZxWPNfgVlk EZyuu854LMV7QgZrPYXjbj VetNkkaB3vKpOrLNICaDQz aUddoB4mq5geEvFfFTR9pZ YozrYvOuZ7aPNcQvzseAO3 JJAds0waIORff59rqPPmik AiGTOry0voIbQhRPSdo31m d5UnlCQndEyxIQ11SEpvMF 6kmEowvyRiERquuzW8pSB0 IGFyZSBzdHJvbmdseSBwb3 EgeGc5IIJql0KyW0l4NBJz WSIiFT4ptPIgk8MiWPYwmw viYD4yVO0wV9K4lFXoAUTb yrEDErQtICzynQQoq8tiw7 DnD8qnmQfdLVcav9HkqE9q IqFuKVYnkWCmk90ceLj0FA RmRPLITSVeGZF1obTpqC6m mUlhcN9eFDPwtq0ko0fiWW 5pbiBhcmUgbmVnYXRpdmUu YVOXkXMfzMcqhN4usZRqFr CgfuNav3o2LXAbGJQdh4Hn imImpb4xMBYooSUtnw8rXK Beq13pW80ilE8sQPYlpKRr ZITdfYMknR5vd7bnjVTvAY 4jEUMpAlW0TpEcXpTemAQm ui16WPAsEJKoNNIctM7grL 6xjbVsDCmnegPufzSwSL14 WCZvp6xznqrcw0QlaqNujk 5vZMAiie43bWKoGRXmdzSf l4QwhUZxnGNeyEWxiyLvlV NsdWRlZCBjbGluaWNhbGx5 LlxwYXJccGFyIFRoZSBmaW 6wvT6eggT3ZCUhNLQauHQ5 MPKlvU9nNSIzFIYaqnDeUA dhZGljaGVybGEgdmlhIFRp W4BeBQRjao7fT2Afo69rSW IvMjcvMjAyMSBhdCAxNDUw LlxwYXJ9 CPT Code(s) (test code e1yniBMgACUobUF8VsIzRS = 3359) Yuc8yrp9IewSQsjBDoINay cZShveAnvm02eKP3uA18AQ 6aPIHaYsP0BDKkpfV3Idp6 WIVaKLWqqKFaG773a1ypy0 onazUnlOS5hZlrWTFepqgq RlV0CQygBLDvcjgmDXw0IX qpXDRoeNN9WNUcfRGeC4Oz RHGiXB6tyvy2LDO6UNrcOE WcNfG9VWArhHRzSIHlpQln SZnfj688PUB8XgRaLMLkij FhcViuhQ7pStTaFLF9ECTl PXbdNYtvPMSkMPi1LkCrAT ggNVxwYXJ9 CLINICAL HISTORY (test g8vrvIDnNVMlaIA2KrRyRC code = 3356) Nqa8vge1QsnQNwxLWePWtq kEZgmwIntu77pTY9wP30HV 7fPMXcVfW6CTOrpdR6Tvr2 VHXmTYTecANoH060y5svg2 guujQahTF9zUitJTSinxnu ZqQ6KCgjNVWclofrZMv9XB fdYQXurTV4RBQpmOJyA5Gu LJTmAF6nfdn0NYJ7ICilHR NuFeC7VMTqtASyZAHjgZge SJhbp814QIZ7SoJsSEOouu PpqAyzcP2zPiLqREJBbtor cmdlZCBsaXZlciBtYXNzXH Bhcn0= SPECIMEN SOURCE (test c5xngSVaHAQdnBJ8JfZbTI code = 3377) Ukv9sjk8PbzFKguRNpXPei aIQszuMmgf72mJA1wS35KO 2cRQRtIpO8WZTgwqQ4Xzm7 SPOvGEPgvMMvZ330i4mny4 kkuvWjzCH0bVnzTFAeqozd VpX4RBlnOARrhkowHVd7GS hfWSUaeLO2RGOtySOhO7Aa TBJhSH7htwn4YSK0IZgcAK JwFtV7DDEtzHYhJXQidHqw KAqou413OHT9CePpGGVeot JijDwdrV4kJrWtKCRHzXTa clxwYXJ9 GROSS DESCRIPTION (test h5xahMXaSGWhgFM7RiCoXF code = 3366) Krl3bkc3CxsSChqAXuYBrc yVBxawJeov44rRC9uF44MT 2mRTXqBcY1GFSaglO0Fvd6 YBGjDBYhxOUbU619j2obo5 kwibDzbGQ9TXCvKLBvJ5Qm PC9fUGWtyUXdO61ujJNgGL K9TGUbKLGmvIYoMGRdDLW0 LTGtoSQhA9tiUOHaCH8hdx cvXWftAArlRRFzeYC3IMUq sORlU7GuGORnDZjqYEAgxy j5NnUePc4xfDNyjMboOPjo YXJkXHBsYWluXGZzMjBcY2 AuMLRgC5GzUYMnOFw7JHMv gI4fIb0dqHAioW9oL4TqQH DzYTCjnYKeEYKyITEvh8k1 bPP7nZXezLJ3vXCtbScwAS 6vfWHcMO4LXsRosfYiP3Zo YYHuK8OwUAogggRfNVBzpY 4mw4bdI8TaFI2pJCrlRBJe ZWNpbWVuIGlzIGEgdGFuIG UuboLfygFyXLmcLFOue4Rs uVSgMTNehMDfmgblDE42SB McMXjoUiUjmP5kcRCvN5Lo PVY5DEEjPQJoT9UoDRRcVI tsWFYoVG4izQCmSBHkYBEf IWWnFNCdpPCndM5pqzIaoo QtbVh9DSJmIBTynqUvl1Cv iLj1bXLvVZhkAACvpF0pkZ 5lBSQtMZRsrfegVQLzE2Qe kPIdLJoqVB5gJKhBCKCaYR NDUClccGFyXHBhcmRccGFy fQ== MICROSCOPIC DESCRIPTION d0olhLNhZMOjbGI8MdYdUY (test code = 3371) Rfx1kch8SpkOQfpEHgUQcw nRKpcfHnww29iWM5sP81EU 7rVKXjWgT5FLKyxnY8Kej3 GITvKVMlnOTkP770v6veg1 fnscZsxBI5cBtrEBBcfhgo SeM9ADzaIGKtjiquQMt4QF ivXIWcsNM0YCBucUZhI1Cy JAGeQD1pjuf1TRB6JLyjBH QtVqF4RKLaqALwZNNzuFpz MWdyf615AKD4IjGkBOPpzl BtwZclmA0hDiGoFOQTVMHc v3WyQCUdmNZouS== SPECIAL STUDIES (test t5nlmMJwTPTex1eaIFRgrQ code = 3376) FuZzEwMzNcZnRuYmpcdWMx NXmisdSqOOeit5UoG9WjWc AwMFxhbnNpXGRlZmxhbmcx VYXfCYL1haXgNJZeKOheLV RuLKqzYm4maLWtsGnjBeUn MZYhv4yxavOOfvrpkEj2g4 pwVCYuIgL5mCFpMJsoV1lw vkFlzEZeQ6WwyCFkqUn5h9 eiFfGcGlM2xLGgIEvfH7uc hpEhwUSzFDIhZHp7qC92HW NxuJ9pdWLlRBgpzkHaXvT8 RZtiPYJfVyO8TOEbpSXpPC YkH1glDLSrFGjjXJBlSDdi oIKyUNB3zQspq3D8jSEcuL OkxZzuFvQvJgEhWvCLz7Ac REs2xUpkQ2UhDKBsTbO5yD QgUGFyYWdyYXBoIEZvbnQ7 dRbrpwGhx56bxPAqMVJcWZ LtEpEopTlnWCQiPQIMr1Lx qLysJAB2yCi8bZfuVckrRQ X3Shp4HU3bnn89brh5bAyw TJFifbbcVsR0YXwhHLZgwd qaFLd8GVkpRLHwgIW3BBGw zZZzV6XwXEQrLV2jqwx5WG J0FHxvDPOyRqZ2YJHcrSXc JXSglYajFDbrf263EDF3Zt NqNT8wU7Gwh2L6wI9bcGFn JJDbxVIcNiLqLYPrec4cxJ RkIDkty8DxBWC6meO2gOMn yKNqHAGtSE51Snqji3GjBb gzf8StE51pxXN5YChtj3ul FE7jEqD1qnJxPHfko2bifE 0nCnA7XNifWB1iKY1dPIFa vC4squgzHCNvJkRodjziNT VmiDyqcjUyIg8onSzdQXZ5 FHohF2wtaM4bJfR4UXgqK3 hdrN5rBLb9BVleoJU9FGDq mY3yXP4kggqtd2lkSLxmIA vvKEMadmJ4ifO4QZTijDJd F4MkuI4hNISnIT9uysgbq4 sjMEW2TShsEICsPHW4GnRi UUPic0Kbovn5TrHpq7TxmV QgXKkhJ91ft188HJVajmMj G3zzwGTvkctrqRAitxfhYV weesJ5YOYuMFYgWPboBHUu XGZzMjJcbGFuZzEwMzNcaG ljaFxmMVxkYmNoXGYxXGxv K2grWaSnA2EzWGLmTuAlJH vmWPxsyPCchACmwAA3jA4p KM5sHBRyfKArC0SxVTHkaj TjxGFrVYR0oZOatGIzSF4k WShpjWNer9xzz2IvR3opgP qlqFN0LQ7kDPYvKLXsAWxa t5FyxS4oLduavGVbmhekVA xmczIyXGxhbmcxMDMzXGhp C1mhBdVqXHVzxVjhYCcge0 NoXGYxXGNmMlxmczIyXGx0 cmNoXHBhclxwYXJccGxhaW 9wQbPfBcAsZkboCE3yBIHg L6pkgZXaKASrKXBqF9wzTi VyeT4slGflETamGfQnDuUg GaSSw757qp4vSMBnrHSfgu ZEuMKgyI4mHBnoPPpePLne aPAxUIepd2imCFWbg9n5yM YmIWXdlqFvw4bwQCdwfkXe JMOhuBMztEFgJIPsp90jEU uwySzekPmsGSFdo9UuyBra y3GaYkWhFUvng3CfX25ywB JvbCBzbGlkZXMgcnVuIGFs q96rv2wtXIIhGgT8xDQkmQ G7tMVhxVRof2VqjDhwDPSa t1ybZDLdxv4twzhbaHLfw5 JskA3vsnjzRAdmvNIngdWx KXTal6z6pCGrREOuCTToAU opqDy1IRMrj097zq5urbQ5 cMJvTTJ8GVzaTQWaDHAtss UgZXZhbHVhdGVkXHBsYWlu XGYxXGZzMjJcbGFuZzEwMz NcaGljaFxmMVxkYmNoXGYx DHlbM0ubEqSdF0YvAIZkCj DylMUcR9aqhMHnROKkVJvv XGYxXGZzMjJcbGFuZzEwMz NcaGljaFxmMVxkYmNoXGYx AOwaI7rrZlYbM6AcDVBkLd IgIFxwbGFpblxmMVxmczIy DWunudnqIVNhLIxcZ1ihIi JoCWEnyNzpBOduq6LkVCQj BLPtOnaljrJiBSk5wmAeGM BhclxwbGFpblxmMVxmczIy ZYkimjsaXMNvJUfwM7ypMk PhWHXjqVlzDFsqq0VoSXIp XGNmMlxmczIyIEltbXVub2 mhv1QbG4xfuYjfhEI2NYRn N9zmbLYanWZ4YJM6lU6mSL tpmgKzOQMcg2QbNKNbUVVy VgW8wB7zICC6NzSJjBxlKU BsYWluXGYxXGZzMjJcbGFu ZzEwMzNcaGljaFxmMVxkYm AsROPpCUosH7xwHiInC6Uj OBRcGkWhpGjvVXzcDYa4Dc xwbGFpblxmMVxmczIyXGxh beaxUQRgSXcrU2crThHoHU BjfClsJWvtk4RwYSRyEPYh MlxmczIyIHMgTWVkaWNhbC CZAH10OHFbPKWwkPqtfA9h sBDPCUJtetQ7v4X9SVdiVQ IxFNn8AJimgkJfQMVcdF3o SHWeXS0wKQh3xeBgYXWvd6 ReCO3tLGQjaIBwDAP8XZPp d9VeE4Clj8MaWQQrQLFqzk 9jwkWiDbJKyYDbJTCsqu69 CMCjPZ1gS9jrMPVfAGSsaf BxzJKqt0FjLDGwfJB2aYOe AK7GEnKBn72zJXTwPEIJbn NzDBMkoDdgfLZ1vhQ3pY1a LiBUaGUgRkRBIGhhcyBkZX Vpsv2aflLuCPTiLNWpt6Bc aPWqeVPbylXmR1Tor7AaKV Tjss31UJkuiFBdnn79IJ2d P0Djc7XmpM1tUXcjVCIna3 LleETprGOwTOCwu9KfR5bv ajjaGZgidILuqR0kWLLhXY h8FADps0HiBCElg1XsQvFp puIgESZdETJoLJXysA13KE Q8wIrenHmrpfHsEM1qVCVj vaHdGUKzLMXmzD6lUGvvmb OhOABgbgD5u2U1QRuaJNJr ntMgPzyzYNC1gtEkvsT2yM KtR4sumwkqJCypWXCch0Eu xN9ylBKVbOFgx5AvaBTwxA FYsWBiXS1fsbEdXK3eQTQ6 ODggKENMSUEtODgpIGFzIH O9OJzvNpaxMLR3xsMhEHCl g9YtCBnvZ6rjL13uaCaexE z5bHWdaVrgoKBjvRZnAPUx czK5e9Z3OCGvk6OodypvPC BsYWluXGYyXGZzMjJcbGFu ZzEwMzNcaGljaFxmMlxkYm TwMNDiRMyvZ3lnXgDgPnRq LjybDEZ6iX== Gross assessment was [facility] performed at ([facility], = 2777) Department of Pathology, [address] [place] [phone], Technical component was [facility] performed at ([facility], = 2778) Department of Pathology, [address] [place] [address] 26689, Professional component [facility] was performed at ([facility], code = 2779) Department of Pathology, [address] [place] [id number], [facility] [id number] 14:51:42 Test Item Value Reference Range Interpretation Comments Case Report (test code Surgical Pathology = 104) Report Case: [id number] Authorizing Provider: Jessica Espinoza Collected: 06/12/2021 05:40 PM MD Meme Ordering Location: [address] Received: 06/12/2021 09:22 PM Service Pathologist: Ofe Luciano MD Specimen: Liver DIAGNOSIS (test code = [id number] 3220) FuZzEwMzNcZnRuYmpcdWMx IHtccnRmMVxlcGljOTYwMV nbzsYcZPTxuTRpJ3Ygadln RJllLK6dHF4ihVgbuHMddY KgKXVvLmDyb4hhn905hNRa h7qeNBFGlekmwAq5sHnrX3 7em7H2EzwzE62jmOGbROB6 YHXzPOXqsWFqVXEbYGA3SZ CvuICtY1ikETKrCS5clgkr IPgcHXrvDFVrkCB5JRFyuF YuO5WlEPElGQgoAYCmptd4 PjQjTg8poKShkTtkEKssKF JkXHBsYWluXGZzMjAgTElW EFWnBFRAU1MQTOytnNVaJW 3uTYXNKv7BODMYJA7QASRq sEWzDR5fY1DNBMCGLK1UDk DcoCFyjQoppbTkHZdww9Pt LIksGHIkON5qwCbnLRCkGA 0oAKOkK3yweB0bncz5UtSg EGDoIfC1AKPdlaW5Kif6QH ExPTuxn4faa5RrBGCaVTx4 oRhoZlBqDEFip8encfXzWt YyRJLyYCUzVLQkaQInX324 y0kbo5udkkIavFC2HBRvZP R9UJrxbwUzdgJ8DTzywXLi AfF8WHpflzIsSVfiaqEpxu NpNkb5LXRaJ525ACI5tXsg f2igLJP7KACcPEGxBtElTg 3vdWOlW877ZOKrXIDAAXFy qEv0RVDexpDpidEdaBBBp4 07Z123f5hzCXDxqkNolErN wfzgp1jzH761IIRjsGQmag NmMaYzXMUvhFWonWK3ONNg CQ1aulfqFLulFAdhYZEqmy O2OCXuuEFfI8PeZYMlMJ3p wpdwJPD6FPnwZHHjQSL8Cx QuJUMxq4Hdusu6EsKeka9e gb35DZA6k3WedUuxYYT7KY Z4VzBbNp8cuPMtPEKuAX2q YlGwrVIpYOTmou31pGewXO qlSWR4EADrfoFqn7Dkz8rm UhHkvqUuX0nsL8KqLUFuLC SeSCPwNwKsrbYyu8Fpy8Zn cRPbxIw9h8tsSLJnTBBqlY yrh0jxOYQ6RZDcfEBhD4hh tX9dYFWrDF5bhthdo5feKE bbNZerZTHntMT1apM3LVFz yUIkH9IoyC1aKWUmPCqcBE Mqcsw3EkAnId2dvZIgkSdu MFxzYmtwYWdlXHBnbmNvbn RccGduZGVjXHBsYWluXHBs YWluXGYwXGZzMjRccWxcbG FuZzEwMzNcaGljaFxmMVxk XqWeIWQwKWiqY4lwZlXeGs TwBsd6OFKfiKTgGEVkJwh2 CPTvpXPjACNGyOwxyC0kYY WpvEtxbZ5ffDY0PZQiblWz iUCUfZ6jESVFmF4xNdU3TH RpNcb8JBO2MaTppJSxlJ1= COMMENT (test code = e8krfLJqZPHblSS2GiHjEZ 7061) Akw4uzu4RhuFYypFSeDFty lMWpztZzgg29bDF3yG42PV 4dZSNfOnK9HFXasjS2Ujo9 KIWhVWGyhLVaX206x0bxk4 sugmAcpRI9vRnwTDNwtdsg VuO0FPckEXXovvbdIZv0MA pwJRRiuHZ1LYNsdRQnT5Up WIMhLD2jyye2QXO9RUkuGZ VjIvW8ETZkjZDlBEZdkJln NJxem416JDN0YnUuWIBstf WdrXhlmL8lAjDeAJGAbTOu dWohtB8ba1wvLrRxFRZ5nI LfsmGbXyM5fMDqCagogHO3 AEIri8giTSYfa53zfNMiwq SjTDFlx6zuFlCnAHRkd60i w2IhuXLtvCmbCP26EXnfKW 7whRtllnQjMZofnvD3wLR4 IGFyZSBzdHJvbmdseSBwb3 VdmKx5JSHto1JoM9j3SHHc GAPfHN3zrCLfn4XvVWCbjy ugNL9lSH5aI3A6bFDmZAFx ctYBElVhTNzayBVho4vym4 IdG2efdRqyFLsda1VmwK8w CuWhGTUtpJIsc89kqNn7FS DoAYAAKVKoZTM4ppJkqF0h tUdhxW5mJRTjed6re1akJY 5pbiBhcmUgbmVnYXRpdmUu SAVHeSQuwHxseK0ujOAcGs HkgcExf2p7XLDyRQSpb2Mc miJgtz5bNQCtwRHonb3mDS Ldf37dB57ibE9yDYObcGNv ZFGpaCGlcJ7fz4pdxJBbPV 0lGGJqFhS9ErPbLsAjxDLp vj97ELJpWHUqRMKbmR8kiI 8bwwPrKTcvsrKutbXwKQ84 FQLhh7irifrux4FwywIsqn 6uAYOhbg51kQHkIESxwgNs a3KjvBSvwONusHJcdjTuvK NsdWRlZCBjbGluaWNhbGx5 LlxwYXJccGFyIFRoZSBmaW 7blR0hkbF3DSIsCSNghXE8 MZGwvF2nNKSqHRQlehCsPG dhZGljaGVybGEgdmlhIFRp N0RgLXJzto0uI0Zfb04qAZ IvMjcvMjAyMSBhdCAxNDUw LlxwYXJ9 CPT Code(s) (test code v0olbNXwHKJleKB2UdAkFW = 3357) Zux2ewt7QxlJFdfOYxKRpb iYUghzSbhy38bCJ4aR43BT 4cASKlBwF3VRUriiV9Hms8 UQBqNZErvTXfM729z6njj6 xdesMnxTS3pTlmVPQzbulu GlX7JHvcXYGwyvvsCTx7SS irQTPkyXM1TYPszYFtK1Ll BBPmXV6nklt6TAS3XHupCT AgWlW9GXZflITuDDNsyYjc YSego341YJE5EpIyFNYwpr RatQirsS3cKzDuERN2LVAq HRawKRwfOCCvTLx9HrUbXF ggNVxwYXJ9 CLINICAL HISTORY (test a2ptyBYbKBSldLA6FtJsLG code = 3356) Mfc1mtj2QsjAEsrASxXGgu nJXiwtIbip70dEH4nV44YR 2xVMGeQiW4GHBwvhW9Xzj5 PNWlKHHhhWBeH664p1ats3 qfnkUgoCW7yUseEAYhqpai ZxA5EIglWHSwrlzaVBi9SZ clGCAzaVO7NVCzaYQjV3Xx HBLhJB1bnzm4IWC6EJthBH TkJfV3LBEwxXZeFYGaeUql VUpgs709LXK4IzEzMQOsyv QrsNlfvN0uHuJlJSTKdtrw cmdlZCBsaXZlciBtYXNzXH Bhcn0= SPECIMEN SOURCE (test v4tyrOWhEAWnrFQ2XrMkNP code = 3377) Clo6tgl5AslVIizNQgRBsr rVPgurIcsf14xJA6nP10OU 3wSDNfZiV6ODScrbV1Wwl8 HQYjIWGsoOZqD482a4kvy8 yarnDuzNR3fUupAFEsgqaf AaF4LJghKIUhndteBLv8MQ uqRSTgyAP4AIZjoMBlF9Ov GHFbXZ6umtw8DCV3CNryLK KnOrE8ELFifSOzRNLkiTwp KZmnb509WRZ6TlVgVHHwwu NkgFcusZ9oZkYgPYUSzOYg clxwYXJ9 GROSS DESCRIPTION (test l7dphGPdRTMvoCB3IgKxUC code = 3366) Gmx9obl0EvlZZxqQSmVCkd gDOrekRewx29oSZ3yJ08SF 1bTHFnIfO8XYRpxrG8Ute0 ULRdPQGnxLJxQ999d6bwp8 zkmiZglKP6CJRmTDDyW3An OQ9uPWZrfDJaL60qsVQoFB G3XVJlXIXaqENfYYGuUTB6 ZSRxvDCqN4kvAXXmJX0qov atMLtkQVkgUDRaoXT0GXBm oMAoN6NuGDQpTSoyMQVwhu q8PvMvSk4dqQDgyGtjVCai YXJkXHBsYWluXGZzMjBcY2 CeFCUlB9OfYNHmGBe4OYYc aG2iEm7pxRBwhE8eY8JjMZ AtHDYqgXVuEKNfLJYww8z0 vFQ1lGQpjQV9hBTmjJvgRL 5qqWVqLT9UVeOnhcFmD7Vk SJArE4SjUWtscgYlLEPenJ 2wn4keF3TwJP7qYAmkNLJr ZWNpbWVuIGlzIGEgdGFuIG CvsvEjzbCoGCciIAWnq9Hf yJYmCQNvlBQqjdrzDU82YJ GqHIotZxXmbS8bgJXwK5Uy FNS4SZXnXZEvK9UuTLUcVR thZEXbMV9viLVwMIQzBPIo QIQfZPHpmGKuqC5apmZjjv GetKm2PXHfXCVylpGtc9Fr eUc6eFAjCUrhNDNduW7rfO 7zQLDaTMOkvxaaQVQjJ9Ea iVXwGUteWO8jNTfFUMMzHC NDUClccGFyXHBhcmRccGFy fQ== MICROSCOPIC DESCRIPTION s7yfxNJkLXZpyWS6OrImEA (test code = 3371) Tvr7lvy4KnlJYejHIrLOuz eVUolqCfhe20sJR0wS21UX 2uNOKkCbA4GZTdhtW9Lbp5 VTCwGRGicSLlR878x3xeo4 tmihSleTP4kGmqZHTdlane ZkX0OPwyPPZyeyvnOUd7FL awXSBfxXV4EFIatQJrT1Yw MJJdRQ3tawn5AOT4YEaxLN DvYhE6TRDvyFPeVRTwrJte AJpbu894YLR8FlWiOCOmov MlgHjvuV6kPxJsSVORCXBt y3MjRAWskUWxqV== SPECIAL STUDIES (test o6nhcBVaUXYdi8gbEABowC code = 3376) FuZzEwMzNcZnRuYmpcdWMx SQljrkNnSZuym8SuH6HdZk AwMFxhbnNpXGRlZmxhbmcx YJKqBHC0wrRcUVHbHFvtVG GaELlwBi4iySJtwEykZuBd NWZmx8sdqpQHopoeoGe8y7 xpADDuVoC0mGCqGNyhA6lv etFbrLMrU4HsuEWacPi1t5 czZxZnTdS9yZPyHMytM9dc vpMihJVnZECiVAj2nY06KL MdiG6hrDXvORaqmyZaDlE7 QErgUMHdZbU8IGXhtANvKR YbH7wlTXYrLMyzRBCpBFuh kEJfXVW7dHtjw8U6zCKbyK KrhYeuGnCmEkGiQzDZs9Hg LSd2iYntD7XgZDYbOrZ7qK QgUGFyYWdyYXBoIEZvbnQ7 jZqbrmZgc91voBNbBEYpNC FyPfWuyDqyRMRhDZKCc4Rk nNkpHQJ9oNa0bHorNlvdVL A9Wcv6DJ6cdh78rkq2nPqe GNVxnjdaYwA6VPehTTDaid mhKDm3DZlpMSVapKN0JMKg oQBtJ7LuEPEjJV7ejqt5GM R2KLbhKLPhEuY8SVXvnWGq EBQxpRtaZLjjf888BHR0Us OfIR6fI5Uni1Q1iO2adEOv WNBszLWbEeRdSJOpzj9teV JoPVctl9RqUJS4kyF2jTJh nXIzYKEuHQ35Nzmmh7McWs znx4BtA91mwZH7PLngl6oj PZ1xBgF0vsIrNPrqc3yrcM 5lHcH7HEroDJ1eXF4cXNZw nK5iqqibFQGwOaPbcvldPW MkaUwfhvSyKf8ssSoyXEB0 ZSleW1qbzA8hPiU5NLotJ0 kjzS8iQWx2WKlzfVT9HJKe tU2yED1yhjaiu3zyNCebHO neVPRdctB5raB9FXIbaTBq T1ZaxY7oCSDtTQ1vwpafv1 nyEHP3DNahPJTeZKR3VnPg LIYbt0Ahink7VsNzz7PioZ OnGCobH56zo040AAMfvjKm F9kczYIrvjdyhVOekwkfLA zygvA7NGGwPOBuSFtoUHXo XGZzMjJcbGFuZzEwMzNcaG ljaFxmMVxkYmNoXGYxXGxv L1ulBaMqA6TmMRXtZgDoXU oyUIlsgGZdpZTtlXK4iY2d VQ0eSAFpiQQjN2RwTDWtrq DxfEQsIEA4hDFosWSrBB1w LNhvsUTqs9xnb8LcL3vhsN fkaSL2WB6nKZUuNZMjHLoa k7KjzD6cUxaahYQwdbarKO xmczIyXGxhbmcxMDMzXGhp D6jfWiPkYEVjiZmaZRwob2 NoXGYxXGNmMlxmczIyXGx0 cmNoXHBhclxwYXJccGxhaW 6mTvDsKjWxPkfyRO5jJAVj P5natEMiBPUjXBVzM7lsUo HywU1gcAlbBGtzSsHgHuUa FoEMt493ke9tPQZwhGVzau LSvOJxeU1qKSliIMpiJVfq hFPdNMyyl0yzZXYkl6p0eO NpOWIuikTdx1vgYJetasPe ROMqeXFhhGQySQYml56kVT karNqmhTkcOIAae4ElgHrr w0KhDkQfHBfev6YlY08pvN JvbCBzbGlkZXMgcnVuIGFs i97jg6hjBEPmZsY3fGSjnE Y6eLLtmURwi7BfcVuwQVFb j8hwZDYodb0omthbcTDsb9 ShzZ0nabptHIpnfWWspdKb UZGfa1l2eSPiMJNxTWEaLU pfvEf6SVEoo533pf5qqlN2 qUJkCUB0UAwdLZXcQYXita UgZXZhbHVhdGVkXHBsYWlu XGYxXGZzMjJcbGFuZzEwMz NcaGljaFxmMVxkYmNoXGYx FBubV4dpMiIsC8CeFZHeXn TvwRVoP8foxEHaVSRhISas XGYxXGZzMjJcbGFuZzEwMz NcaGljaFxmMVxkYmNoXGYx JKdmC9obUhCcT0NtPRLjRr IgIFxwbGFpblxmMVxmczIy KTamtkckEMRxMRieU9puZo AdBQUehWviVTfcq1AvKPBz IXZkSxilycUtQKl2mmDjFH BhclxwbGFpblxmMVxmczIy BAhxlqgbPXEwEErgB4tyKc JvKFHhoBrnVVjbi9WwZFUk XGNmMlxmczIyIEltbXVub2 bpu8KxD1uniKkpqKK9DDJj X3bijKCmuPJ1GAB7gG4lXA pxsgHkHDCev1WfOFUlFDXh WzY9eS3lNAV8DlUTuIeaVV BsYWluXGYxXGZzMjJcbGFu ZzEwMzNcaGljaFxmMVxkYm PhQHXrMOjrU0bjTgHwU9Wd UPPlEmWwxBltQKylNRt3Ua xwbGFpblxmMVxmczIyXGxh kkqvBTUlLLwaT2qwCzKlZJ NooPyrFPscq8HtNSDlSDWf MlxmczIyIHMgTWVkaWNhbC GZQC08SJUtPUYvqQpntQ5p hMOGECQlebF0c3U1OFtrTA YaUHd8BUtvyuDtXMMmbS4y CTZdBB6iEZz2rsOjNUIgi7 EsWB7zOXQizVFcAPM9RPWg k3TvL3Xam2RiQNAuLVJvkd 3mxqPiLrVYoYPxBYVwrb62 CWMgKX8aS2lvHJCmSOZtap KauRLds6GiCKIllIH5aIZc KD8FPoJQj27gQUWzASOXzw BfVFLzpIcalBU6ojC0aW4p LiBUaGUgRkRBIGhhcyBkZX Ycpd3zxyDuSDYwNXVeo3Hs rFXqyYEacjIwX1Bch4KkFQ Ggqe07ESkcpBLroo45YA8m C0Zyg2RueX6dLGdrLOOuo0 CfnBBuqAFmNYLng3XnB4qd taaxUFnluWTmyB9mQYBnVO z4HDInk2RsKBHsr0PmVoXj wsXkGEFbBOJlKQKloM10CH F0tSpraNlldaVaOB3oYBDg uoJpDCWhXHPiwA0qKXdjtz VpQJZbpiQ8v9T5WKgzDCAd lfFhTzpfSNY2zsGnsmP8yG UvZ0uduavmLMrpZYZmz0Ke mA6viFIAsICdn0GxaIEblP FEtKEhZB4lcdWyTD0jBGA9 ODggKENMSUEtODgpIGFzIH M3HTlmPzryFRN9vbKkPYIh c2DcAKeyW7rjS62seJpfaO y2wGQwtYjkpRZbtGHrEDEg iqS5q1L0GBNvg4MtduomSA BsYWluXGYyXGZzMjJcbGFu ZzEwMzNcaGljaFxmMlxkYm QzBDMtCSgfW6lqMnKdIkGf OtgfEFQ1eM== Gross assessment was [facility] performed at ([facility], = 2777) Department of Pathology, [address] [place] [phone], Technical component was [facility] performed at ([facility], = 2778) Department of Pathology, [address] [place] [address], Professional component [facility] was performed at ([facility], code = 2779) Department of Pathology, [address] [place] [address], [facility] [id number] 14:51:42 Test Item Value Reference Range Interpretation Comments Case Report (test code Surgical Pathology = 104) Report Case: [id number] Authorizing Provider: Jessica Espinoza Collected: 06/12/2021 05:40 PM MD Meme Ordering Location: [address] Received: 06/12/2021 09:22 PM Service Pathologist: Ofe Luciano MD Specimen: Liver DIAGNOSIS (test code = [id number] 3220) FuZzEwMzNcZnRuYmpcdWMx IHtccnRmMVxlcGljOTYwMV xeglQrZITbjRMlX9Cfkeoi WAmrZL0cQK1oaLnjiJCveK JcCOLoJfZwn4mcf884hEUu e5hwRUAVyltfcKz2hNfjX8 5sl5U2BvbuP90ayRUsKPP8 OUEtAQFekHHrDRSuOWC9FV CadDZzC5mkSMNfKS9yywwy JYwkVZfaCQVgpIH7FDTyqE RvK5CrXXPuPGeuNPYxrmp3 XgGdBy3xtTEgwJhpDMgnKY JkXHBsYWluXGZzMjAgTElW QPOiIICFZ3ASFSkafFRoOI 4wJGKFQc5ACAGWPB1ZWGSt eVXrAN8wC0TQPXWNNT5MTh FmsANsyMrazsRiROuvg8Di HIylJYOrHM5hkJbrUNTvSG 2vORBsY8yhmT5ydku8RmZh NCBqElH7UZLlodK5Pii6QL OcWKpkk0hlr4AsLNGbFOq7 yZpnItBoRQYzi1pemnQtQx DeUXYjXIAmWSHsxLUqK687 m2xhm0xjehAwlZX2SVGeOG Y5IWuarqArwrL4ECyukDLv PxD4QYydgcVgCRvgctBhgw GuJzm3RLStF822FNF1gLue i5xyXSG8FJOjMWUwEdDmNi 1pvAItZ942VQCzDELZZVAk cWm0YPBdohOjyhNalRWYy5 04L679n9ztHWNyvcGwdKzJ yzaka5egG375KGJlmJHgff CoZiSxUTEvdORbgIZ6XGPn AI9bjgipMAypZTvsJKFlpk R9TUUpvFWpX5LxSYReIW6a xiblOXM5KGlgINMnXGG8Lq ItVTLdv6Qfmot2BdEwzy5i fo06EOH5u2XenPnhXFJ6JZ I5JkPhJv9gjDEfDTWkEJ4j YzPkwPPuIHUhsu44lNizQE yvXGC7KRRzzgFsu7Sfy9mv RcPgywWrK6xoA4YuXVSsUY SwBSWtMhYyqdRag8Lfz0Ke lFEylSw7x5ehNUBkSJWvwS nqu6kfJUC8PACiaEEgG1jm oE0mDSBlCU2lakkcm5olGI efFNftUYGlxNO4hsM2IECm rGNsT7JyqL3pLHTmGDcmOP Otubc5KzToSb6jrZZkmDxx MFxzYmtwYWdlXHBnbmNvbn RccGduZGVjXHBsYWluXHBs YWluXGYwXGZzMjRccWxcbG FuZzEwMzNcaGljaFxmMVxk PoVrXJDbBVkgG4qjRhKzTz NvBqb1RZWupXYkGTBjJyk6 ERUiyUYhKZAEvIjycC6yHY AgeVsecF4pzMY6XNLmmmSz jSEZfD1jAGMTzX2kWmY4IB BhXdl5YQC9LzLaoXOfjS7= COMMENT (test code = q3xyqPKnKOUwuCS2FfKzOK 3421) Xzg2uip9GrvLEfiCZfTRuk rBDzeeNsfj79fLB4hD43CC 8cORAkZcX6DLNbefW2Pao8 HVWpCFDwxKZpI321k5jmf4 bwqzZyeYG9bGsvFAVuratg TeC1AQgsTGIqdnmlIDk9WP fjVURmdPC9UMJatSJhS5Tu VOStGA8pydr0FYQ5SWtuSB HmZnG8JHXwhRCkZFQzrWsg KHmql158FGB8ZkKoWOTatf YcmQnmnE9eTfYpTSYUzGBz qBtjzZ6bk8xuXpYqCZH6bF MdhgJgGgB0nMRbEskjjEY1 QYObm4tuQLUzp09shNJpbe YmXIUfb3neEcElERWxl71y f6LryFJzoIstPI12GRxaQI 4zlSyjmlUhQIddcpX2hUT3 IGFyZSBzdHJvbmdseSBwb3 LacIt9HDVtg7TuB3c3WGFp UTLgPI2tmTTxd3WzAOWqcg axKE2tUT7kA1T9dHDeQRIb ahHBXkUrJVubtAUsv6cfg0 YmJ1kufZsuYEceg0EqvW8h KxMnVUQdfAOum98afTq5YE HgDVNUWHOvCKU3opEowU7r sMznwT2oGARkee4if4xpTC 5pbiBhcmUgbmVnYXRpdmUu XBFRqYJxhHujgJ5dpSPpJq HrjmBva3i7QKGoNTArj9Ir buHqvj6rYIRjoPSqga9pTS Xcu37hQ84znI8jZGFpfVLd LQSooGKsbE4my2muyJYbIT 8aEOAgYxL7YiMpRbAesUUh nt82HAHyHQKoPZPfnI5toQ 1aprHqQInocsWqqrMoMU44 YEZnl1gjhrcha2XyafUnps 4eYQTzae46lGRgSFWrhzPn g4KkyFXkvPMdrPFcnkSfaE NsdWRlZCBjbGluaWNhbGx5 LlxwYXJccGFyIFRoZSBmaW 0yuZ9mfxZ4REQuJDYcaYV3 IZVznL0pLGImIJNrjmIuFX dhZGljaGVybGEgdmlhIFRp X9EqNWDaap8dR1Fsj91oEC IvMjcvMjAyMSBhdCAxNDUw LlxwYXJ9 CPT Code(s) (test code k7zubBCbDWTnhUT3OrEpTF = 3357) Boy4hmp2AuxTVjjFCkFMlr gQYvhrWpnd26uYX9zR16EG 5zHBVqJxX1CAYlavQ4Cui8 PUXyAEWexRJpC794g2gbt5 hlkcYaiNL0aJsmIBNmnvtc PwN9QKgiRIQbnbogFSo0UZ xkLMUjsIT7HHXmpJTwT3Gx KEFjRY1ouiw2IPL5GBihPJ AmFjZ5EHUisGJuWHCdkKft MUglp419CAT6MuRuBGTtac SecUuglX8pWqDlFLE4QEJp GElhFIjcNUFvRKr0EnMxEQ ggNVxwYXJ9 CLINICAL HISTORY (test u1srjEQjJTFxrTS0CyOqBF code = 3356) Jxe4iyi0BosYNwaXKeKJrc yLOqmuAuoh43lJB9jT45KL 5bYKRqJaG0RNHfvuW2Kss9 IZBhWNPmxCWxX126o6srq8 wwczJzyQX4aFvhOSOnnwvd UtF4SAjeNPKfovneSBp1TS lbJPKvoOZ6RXFplCMuU8Oo VUAdZF8qbfe8GXG4DWmkRP IbDjK6ERCkgPPxVDFyrGfd YQpdg311OBY0EkDkJHOass WydPepcG1tNiGdMZTNvbzo cmdlZCBsaXZlciBtYXNzXH Bhcn0= SPECIMEN SOURCE (test f6werYFkISIqiCH4VsQhDG code = 3377) Fsn6pcw6LatIYagANvMTmg jHQxisMhfn56gXS7bP59BG 9yUKYwNuG4LMGecwD3Onb6 ZCGnMHReuNEfL612g2afg6 fnzeVncQC2nGgbTJEinyqr LgO5HRfyTFPqezjfWUx4EM pgOGSwlVS2ABThpYWfE2Fl KVGgDS3klft6MID5QFslPC DnHzG8FNJfzHSqZNAiyDai FUoyr753KPU0PaAxONIrtg GtxXdqlL9fUsVxZQGRcSVj clxwYXJ9 GROSS DESCRIPTION (test m9sukCExWBCefIC2JhXjMQ code = 3366) Uer9ckk1BguOObhQIzZDrs yYUscoCnsj58oWS5kU91UN 1sUWCaPsZ3VRBjyeX2Rsk2 QZPuZIHmcZSpA491h5nix0 phsmOhdDW8OFFyWFEtS8Ag OT9tTXVamZXcK76tzYChDM I2SEHzHQKydDSsHDJaVWC6 GRTwoCOaK4hbOWJgQP0pfs boWPbhOSulVNKvfYY0NNOd sEJaC5XxORExUJrfDOKizk g0QoYcKk7huRJmcObySJeo YXJkXHBsYWluXGZzMjBcY2 IeUCTaE0CcGVOsSOg1SMVp uX8mIc6ayRXqpY3gE9PsEX NiHLEbiOOoBJBzPOSwr6r5 kHY5uDBjyWI3rFQdlLxxLI 2bwSHcTL7EJuXgjrWsR2Dt VZUcJ1EyRVljkqBiVUSlnK 6ka3bbW7NbWL7lXIitQVPe ZWNpbWVuIGlzIGEgdGFuIG GrvnWdjuXpBKusMSCbj5Ci tUOzEJZzfYHykeijDX33PS ArMPvgQbQzvM8vrEWxX6Kw GLO2CHUqTUBrM4EuQJMgCI abPYAiYF0urZPmGXQsGDKp BBCtMFFfeUPubA2kpeIfpg RewAh9XSJmHGEjjsNwn6Oh wGh3gIJnLOjsJPTreH4ceM 5aHYOeKJNmaklwHIMjC5Ag dIAzIYmgKT7fAJnMHIAfVL NDUClccGFyXHBhcmRccGFy fQ== MICROSCOPIC DESCRIPTION n9ymkMDnBJUjgRE4XzFmCM (test code = 3371) Brw2zvt4DvgUZchCCbVRqj aBNnebQpyu50mGP1wG34JJ 2vZSQgYvH1AJTvnoL2Dyd3 BHSfFJGufIAoD295n3qrn3 pyxgVfsSU9tKjqGZOsmgfm FxM6BQsaFHQxsrgmBYr0VI bfUSTxhHM2HJHmuESaN7Uy YGJxUW0qxdd8GPY7LCxzAN ZgHpO5SATmnLUpBZSrwRim WDvzf783BLC8VnJcMSPfsk KrkOmwwG4aElYsCVOBVITl b8HySVBfhLVmnA== SPECIAL STUDIES (test w2ieaGLwANSqb3nvIJLfmE code = 3376) FuZzEwMzNcZnRuYmpcdWMx JHwsxyIwJCggg9SdW8CbVn AwMFxhbnNpXGRlZmxhbmcx GUWhEKI4lyApNETiIIfdDJ JsLKmrAg2hqGQczKivZiGs JSWaw5sxjzBGehgplRf2w7 fpOMMtGhX5fNKsCHocU1tk inYfvNCtQ2UdbERtvKq8r6 nmTrTeBtT8uSIwXTbkR1rj udFjsRVjVWZvUTv4dR59AH GwaZ7ufFUtUUyvptDgAaB8 LUbmDAAmHlM0HTVbxTFvWI IaB0thZODfGOorSYKoQMbc yGCnFQU1hTwik0E6cCPlkK UayUgfNoVnVvOtKcDUo0Jl IYp8xKsfN5DnWIAoLdA2cI QgUGFyYWdyYXBoIEZvbnQ7 dQthkvDxq54tpOLoVMNyAR ArZgKpvVsyZGHsFGDFp5Xs aAgfVML7bHs9sTkoHyofDT R6Apz6TF0urh50abt8sGrg EVDdrsxsRcO4EWqmLUEltr rhWBf6DZyvGYRakYF4AHOo fPBoX5KcNWQsBB7zzzs2KD F4SQdmQSZfZtE1RGHzjKSa JQJuzJieVMpfn761RHF9Rf FfMK1gN1Bwx2V1qM4iiYCk UVNsbMFyYxAbBHEdgy3qhO DrFGdnn0QpCOH4lxA8kCZk xDGvJTHyZZ62Fwdiy1KmMw fww8YbU55ljVN1HMseg5pf WN7sDjQ3icHoXSnvn2ewsW 4iAyA6BOnbIO4hZB0dPNXu bK1rqahsNRShFuRxvyfnGK WpuZsftiFzKm8qkSzzAIR2 DUwlW8eajH3iBrX3GUkbM3 sluS6bTMs1OImmhDB8COEu yW7qUQ4hrabvx9hzBXbxUU ofXLUbjwU8piL7LZLblTEh H9CigQ4sKDZfFM4tgnijh8 qgZFQ0YLfiPNCsLRZ1HxWc BQKys8Rqjsg9SfVjr9VbvK JvDZjdO61mm081TDBbvvTs J4kkfUZbyrjscYSxxiahZE bsfxK7MAIhSZUgXJjfEYBl XGZzMjJcbGFuZzEwMzNcaG ljaFxmMVxkYmNoXGYxXGxv I0aaHvOuY7WzWZIwAfNhPX tlTOvkkBFikKXpyFC8qN6l TE8rOPDxoNGgI6BeMEVqpi MhnDXdIJC2cMCahMWaPV4h MTnwfJOtv6vgp7EvB3oneY pjtPM4JP2iVJMaSRArPBml h4EzkB9dAvcltYDwhzezFQ xmczIyXGxhbmcxMDMzXGhp J5wiHtKaFMSwdBqkABjxd3 NoXGYxXGNmMlxmczIyXGx0 cmNoXHBhclxwYXJccGxhaW 6hXxNiYdLzNjpqEH3tZUFs K3oryEUpDHWoOCOfA2loHd PbcP9qeUutLSwtQgVeAlUk LyXBm246pc1qBDHjnOLyyc PHlVIouK5fYCpzVUjzXPnz lIBbBIykv3dwOOByf3x2iK GeMHGobtNek3cgUTcsllKh OQKmcDGhwPWmHZBng67dGE dzwRhiyDriRACjj8JzlGoj m9ImDtAgXJlnc2MuQ19rtZ JvbCBzbGlkZXMgcnVuIGFs m88zt1gnTXGmOeM3iCUroZ W0oSCrfGAyr5LsyXtfCQYw p2efGZUvbu8ymtixkEHyq6 WayH7uyvyePBjazWVdbhSf RBFks9v4ePLtAAXxQJUcHY ehpAh8ZVLpv346bp4zezN2 oAUnJUK1VJviURRzTFNbfk UgZXZhbHVhdGVkXHBsYWlu XGYxXGZzMjJcbGFuZzEwMz NcaGljaFxmMVxkYmNoXGYx BTmzM6syZqLuC1XiHOYnPf VfhLFyF5phzAChDOOyVGqi XGYxXGZzMjJcbGFuZzEwMz NcaGljaFxmMVxkYmNoXGYx PRsdM7dxSdFtO5OmPBKiOi IgIFxwbGFpblxmMVxmczIy MZbrtkinCGFwQKqoO2nuEz VcIRHmxJsnZUfei8RoMEMp QDFnBxjywoSbAQh7fpWeRA BhclxwbGFpblxmMVxmczIy JVmujubvZNHdFWvaV3kgZs IzFENanVdrTObub5DrLHDs XGNmMlxmczIyIEltbXVub2 mph9WgH3wpqFbwpZD3ZIWz V5ggoDGfuPM6KRM5qE6gKI onjjFoJDQms5MwRHVcNHGh VzJ1mY4fIRA2ZpPHePueIL BsYWluXGYxXGZzMjJcbGFu ZzEwMzNcaGljaFxmMVxkYm FwACSbDEidL8cxEdYyY6Zo TSNdDuAhkLmvJAxlGPo3Ka xwbGFpblxmMVxmczIyXGxh npjuDESyUTesB8xbTrHpXL VjzDakJDnqw5RhICHyQUKj MlxmczIyIHMgTWVkaWNhbC XTZP56FAFzWSHorHcxhE0p uKMBUFSshjB1y1M3JOxxAP DtWCp5UYebboOlEKWiiX9u IZLsGU8gTIt7viCwYOSeq5 LmBC5lTCWorODyXSK3AMHt d1KcL8Wsh8BwBESkTKMuvq 7kjzPqPbVUaVXzVGVfcs69 SNFqJQ3yF6ssMPQaXOWwsf MpuEDxp9SfETWgnIW0mVXf VL6KKcKKw02gIMOeWJKVls WrOBHzcKpirCT1xpJ1jC4j LiBUaGUgRkRBIGhhcyBkZX Jhuz4ubmKaLAIiGJVwk8Bf jVBtxTTtdwXeC9Cab7ZdJF Zzob60SJtlbBGlxw06BT4g B5Nzl8OqcP2vFSvaVEZws7 DwhHXyxBUzNYRpr2SmR4bs ufakZBgtxWHioQ1pERFnZR t4RXFxr6DzUJTgc1WgGeBv lrCuTEPsVTCiSMVxeO59OG W1cVvwkOoowsIlQD3bRHJp rfCuGGZoIMSstB8uXRyqtw MqPSFfdpA3l1X1LXtkYPYr mcVfFsvpHUC5hsHvybM6iN KnT4lxgunoYHmkISKyh8Zv qR9mrEXZsHPeg4YznUCpnX BTeCQfDK5dhyNeDW4qASM0 ODggKENMSUEtODgpIGFzIH A9ESblErbiULT1qpYgUPTr t5MrNZqsT8vaM17keOfagH a8jORigNtzoOBsiGHsFTTx anI6o2Z3MVAzo5WpyvllXV BsYWluXGYyXGZzMjJcbGFu ZzEwMzNcaGljaFxmMlxkYm ViPJTiUUlxV7meDoYmCnIu JxrlWXY9bY== Gross assessment was [facility] performed at ([facility], = 2777) Department of Pathology, [address] [place] [id number], Technical component was [facility] performed at ([facility], = 5188) Department of Pathology, [address] [place] [phone], Professional component [facility] was performed at ([facility], code = 2779) Department of Pathology, [address] [place] [address], [place] [address], [facility] [id number] 14:51:42 Test Item Value Reference Range Interpretation Comments Case Report (test code Surgical Pathology = 104) Report Case: [id number] Authorizing Provider: Jessica Espinoza Collected: 06/12/2021 05:40 PM MD Meme Ordering Location: [address] Received: 06/12/2021 09:22 PM Service Pathologist: Ofe Luciano MD Specimen: Liver DIAGNOSIS (test code = [id number]) FuZzEwMzNcZnRuYmpcdWMx IHtccnRmMVxlcGljOTYwMV hsgjGuMWXyuWOfJ2Kiysqh LRdxPZ3lVS5alZgmaXRyzQ IgNSBfJpEmz2hbt548bHYr m6bmPXZKpvwnuRc8gNinL1 6rm6L1JsjkU40ypBJnSTQ3 OCZgEIEvaJYuMUWdRRY0ZT NlxULoU9gbOOAdJX6lafjf YVleQSmjHJUfoTE5YOFqhV WhA3WxUBMlTSvsUJSrbdo0 VcClZa4drUVzwMooYKguLY JkXHBsYWluXGZzMjAgTElW WLKxNZXAP3QEZRdoiVYfZY 6lLGRZMk6VSPWIKD3JPLXu vFRxQC4qD8VEOTNPKB8IKl RplWVunPbddtFiLZyvt4Bj OWlhYSEvWO2mmPofWIBqON 3tXCKgL6kqtK3ffen9UrEm NYPpFwH0CATnnlV3Myc9DV TtSWmoy9byv1IeMILbPGl9 lGdiMnOaPCHyi2ehykSyBz VqDPPeAIUfPCBylIZpY517 l4usw1ekvgDywKB4ZLMcKZ Z8XOecygMspvE7TFofkTWh PhI3LTyjzwOcZDfvcfUoba YnAyl2SZVpQ246AYI5bEnb u6pgZXW6CYZpESImUnXmUu 6oiXUcL472CUIoUCMXSSPe wFi5YWBeawXelzUpwWLHm6 64M055b5jiHTPalwHryYaX vkkhr8brF973UPFkpXNqaf EfXhPeAKKjeMDjuPJ2PHJf ZT0bxcpeHXtvPVyyBEZevs N4RLQhwLLjF0JnCZRqTO6q qdrcQKX3HIabZNKrHIP1Cd VrGSYnu0Rzxds9HmUfyl4t gj28OHI1d8RvvOigKKL1MO D4WsNgNs2krNRxLLHvRY5w OsMqmXRoOWXtta45pBjvGT gcYPT9CYHrynOzg3Slj3ty ElRjeeKnY3heL2NpLUGkAJ VkHIWrGlTilcRiv6Mvv9Py kAOgtSm4n7tnRRWkBIHcbB fen9xwICD9DJQdsQLyH4ab lA0zKZWoJI3etntjv7ycLM noOOkiLFYyiZQ5ttF0CSZa wQTfD5EtsB1qICXtCWhdNK Pwcik4UvRyNb2cjOXjwGor MFxzYmtwYWdlXHBnbmNvbn RccGduZGVjXHBsYWluXHBs YWluXGYwXGZzMjRccWxcbG FuZzEwMzNcaGljaFxmMVxk WqErARTeMEkiY4oqAxQgKa CqXij7YNZdxHBlUKPmIax2 UIYcdVFgZHYGzAiulD1nVM HxcDccmP9ctIY2RZIftqOx zZKRpA2eVCAJpS0dAfD2RP EwVxk8ZQK9PtYlpBSxpP8= COMMENT (test code = x1msvMUlAZPtkHX8KuSnTK 4319) Kyc7wpr1BnqYLioRYlXKao zHDfaxYuim45oJZ2gB17GL 2hINAhRkA2FUCxoyA4Itq8 DEHjFQOajKWmK104o5akq3 zpvkFwtXG9nStaWYZhvtyo ZsL4LYfpAPSmxijiHMa4BJ mxGICnhZB0TARjmHZnN3Eo YCCpUR5xcsy3DTJ6VVnmGO XrKaR8ZYItcLGwXWZpvNrk VBkvi902KBQ7VyYmDRLmso WhyEovtZ5pClGlVPEKvXRp eBczlG7tj2izEdHjDRY1oO FeqwFxRyD9kNWiGbribYY4 EGQaj3owCYSpw38qlBAxkw BbRERxa7miSgZqFMShe67r c8QacIOepGqoWP65YRduDD 9hzHkhrwZqCXgvvyE6eFZ7 IGFyZSBzdHJvbmdseSBwb3 UhbWc4XXHbd0NiX3z9QVGd VDVwOH9shEPie9GhHNBvat bqTA7eOW7kV5J8eDNfLVTl ppBZEiCnBTaqwZZof1stv9 LaK9sliIbcMSgsi9FvcC7d NvEtFOAghXLum54btGa5ZF HtWTUOOOZyGKE5wuRdlO3v tXuwuT7uRKVypa9pc7tjQQ 5pbiBhcmUgbmVnYXRpdmUu KVLMlPJmoKlslL2uyLOxVj BxzcKxc0d7GCLwJKAsk6Bv vrKcix8nLQMapFGvvb5wLG Fkw54pU27apJ6vHELsnJXz HZCzgLOqwY8ie4ytiPNiAL 0aBMNeLpG0ZlDwZzVwkXBi th56HMAjGLEkJPMzhX5tgC 3lknYiKBfgadDkniEcOK77 AYAco1gawdord0AahaNokl 9iJOJkhq17rOSuSEKzfzLh c2TxbRBebXRweUJrhpOdkY NsdWRlZCBjbGluaWNhbGx5 LlxwYXJccGFyIFRoZSBmaW 6xcP5fqkC2XSBeMDXclGI6 BWKfyV3kTWAyFQBmqsSpSU dhZGljaGVybGEgdmlhIFRp F4QoBQAgjn2iZ3Gef30lPV IvMjcvMjAyMSBhdCAxNDUw LlxwYXJ9 CPT Code(s) (test code a2oknSKkWAGnjDG2FiMbOJ = 3357) Qkr7nal1HypVMibSQlOEbp aZXrwiZtso15iBH0wS63BO 1wZJGpAtQ1IUKcmaN6Qnc2 TZAmGOBfpXCnX878j6qbv2 njgtLprBV6gEqoVOCijboc ZvN5YAtxRZAawybiWQy2JH dkSYFsiJZ4KGChgGCfE8Wa PJWdOC5gfsv6WTR3SIasCQ BuSmB4IYJdfUKvZSEtbHri HMrkt371VRF5UcNgAWHbne PpdIvxtT0tQhOuZHR2EZDb SBtsTUjyIASzDWt7GwEqZM ggNVxwYXJ9 CLINICAL HISTORY (test j2kwrHDvSYDjcAJ6MwVaWB code = 3356) Haq2zwu5VrhEIxnKQhQPvd hGMoouCcoc83fBC9nF86YJ 6xIFXjWsR6UJWtjgY6Idx7 MWSaGIObeKOjH327g8lqf5 zzdeRzfVY1yCkqECBcekqe CiN7WNwoTLWcrqkjXCq1UE hbWYStrCN9XPDrrDNyG9Co UMOzBU8keru0FAL8LKppJZ VpQbK8LWXjqXNsPGSidTbj BNcem916UYS2NiSxCLDqhh NzeUiejF4fJjCjCGSOimgt cmdlZCBsaXZlciBtYXNzXH Bhcn0= SPECIMEN SOURCE (test p3fkcUDrNHRdoZH7TjOdNM code = 3377) Mry3ihb5UebEVwcDVdERuc qMKpclIacx67kMN5sJ39WW 0dHGAdUvX9WCQacdN9Bhq9 XAXoAWVvxQQcG487s7cya4 xtncNcpCO0tXreEPDvlrax ObU0ABemLAVyhfhgZWj6SI exTYNwdUR0NKSogWQtT2Sb MYVuZJ7kcbx8HUX6NRxsKC XfUjU1NKNcwNGrNDEbiSeg FYjew079ODU4NjAvRXZntp VipBksyZ5yRmAlAAYAvXKk clxwYXJ9 GROSS DESCRIPTION (test i4doaRIhPQTgmBV3BiFmCM code = 3366) Cqx6asm4AhqIXwmXVhJBus qOJbnoTszl03kFQ8aP17ZD 3uRBCuHnO7UTIzfhQ3Dea2 ULDhFVEugHZxK676r1qtm8 vzrvAonAV1LSAmGQFvH5Rs RY2yUCXheWJqO32lqRJpQW Y8IBJjPDFuqZMkWPOnUUE5 HBCarTHvB5gbORFrBS3nqi xsPCqhRCgaUCAspTD7HURv oLHuZ8QiQVOwUIugDRHibh m8OgYxXr7xvMCvcBkoPIkj YXJkXHBsYWluXGZzMjBcY2 YjEXIjM3NwHISeCHr1WMIu yW4oFq1fcWYjdO2kB5ErKY RpKMMdrJBtXZEjXICge7n2 iYZ2vJSbkUK9hTYneSrzPI 3qkICyVH2JSvQvmzScC7Ar UIXdI8MlIQtqamRxXPEllE 9gz6hdM7CfZV2bVCxwVJEd ZWNpbWVuIGlzIGEgdGFuIG VllhJaymTfOCctMITuz6Za eDKnUUIecZEaavqeQM72IQ WyAApsUwQgoU2uzKQuE0Dd USX7RCMqFPJkH2JaWCKmDX ztHLPvKK3qeYTiTRCmXBYp NDYxZRAqtABkpC2ccaFptv RhqNp2VKIeDYQgptSjg9Gx tFx2kKBdKAxgYJJiqZ8ewQ 1fNISnYKBkgsfcKETxW9Lx sSPtUQamTH9nKUmOFMTyGZ NDUClccGFyXHBhcmRccGFy fQ== MICROSCOPIC DESCRIPTION u1cciVBwNZLgzSS9HdTqRS (test code = 3371) Fzc7xxq5TmnFAzhQRdFLjf hYGicgCcrx82gWE8hO81KB 6wQQSjMkB1WVWmpsL3Fsg7 XAOuAJLlpLCtA393v2oqb5 bqkfZliRM4oIynLDTvxkpn GnG6RKimQWIlpkzkJFp4TE syZMBngES1QRXsaWFbZ8Mx NGHjYL8ncms4AXE1OGclFB SqXeX2EKRekPAgQXFuzPcs OZbpm777PGG9OiCiKALuhh EvpLmpoG2mYsWoROVTKBRe z4DvWGQwtYAfjF== SPECIAL STUDIES (test q3zxdASeNNEhm9ssCHYuiY code = 3376) FuZzEwMzNcZnRuYmpcdWMx RJtatfUhWOijl4JiI5RsZo AwMFxhbnNpXGRlZmxhbmcx GOPcKAH8obDvBKBfSUwvXJ OdIBewYh1rlJWxnWhoHgGi DBJmv8jhlwNNfvvgoGb9r9 anDKUyWxI7fOOuJXhkL4ml rxPdoTNtW4QulOWpjYa3h3 ukWsKvTpA7yQEtYPjwM5gu qwSpiKFbDQWqAPh4dT64FL XptW2arNTnUZvnhnBcThF5 AQmbONPlAjT6JXVivPLkYG IqG1vdLCMyZUfmNIXrBJxd cROcDWC0dIpdt0R1qPGfmB IncWwlQgFlAeHxGhBKf1Vz MOg5qAtqJ5DnPQGyElU4wX QgUGFyYWdyYXBoIEZvbnQ7 iZzoyuMuz16qjWEoZMEbJB SjMdKecSmzZGTfGBYIz7Ll oSgvDRM0gAl7bUpsIjetRT V6Enr3JA4wve08efb3mRed MOXtpguhUvE7QJovXBAykd ceDAg3OBdgJYJjeCK0YCKo jWFzJ8HwMHYsSL7khzy1OS D3GJjaLHWpZuI1SDVmvGEx RWBhyTjrXMhxy857NHV3Wf MlPG1gO0Bzd9F1wB4olEGf TEVafROxArXcHNRkhk3wwJ YcMXtql4EzPIO0voM5hPGb uNXqZXTxBC17Ctvqu4VmMk prk4BwG12kbVS4SRppx1he SL1wBbY8lhWvFYpva3rlnP 0rIaF8NLhiBX1iYA3wDGJg dI2crfpjAAYaGrYschncRM AgoKmbubGsTt6meIeiUPP4 MNqrM1pimM0fZaD5SKrxL6 rmuB6wHOc2SCaqdGN0SPCy bE0dVB4uvznrh9qsNFvpAS boRBMaalH3fyI6ELQbnNAx X6OpsE2vVDDyNG8wqwivn8 ekSSS5PIxhETEbBVB9NbBg BQUkg5Npglq6ZsCri6EgqV TcXSoeH84zk154IDRtydYp T0zfdTWepxxdfITlflzgSS bxjwC5OFLwDZSbOVhwTCSh XGZzMjJcbGFuZzEwMzNcaG ljaFxmMVxkYmNoXGYxXGxv F1zsYpJxF6IwCHCwZnYkTI elZIbtdALfdCBqjVB9rL1d QI0oWKJziXHgZ2VfSXIoay AysVZmBZZ8sGEatLQrPL0z GYktpSJqu4udt7HwH6qfkX upzAM8RX4qHTFjRCYrXIql i9ZuzP8rIcamoACwbspiAC xmczIyXGxhbmcxMDMzXGhp X0frRgWaAGDvkQyhSNjta7 NoXGYxXGNmMlxmczIyXGx0 cmNoXHBhclxwYXJccGxhaW 0xDyCjOpTcPpkgOY5pFYSk R5okgDXoWEYtQSYuC3ihIq HrfK4ugJpoPGvwEvUaCjOj QpTJm143sq4eHDJdaDIimb JRtJZxiC5zSTwhQXhoROta sNZkGBpsi9ohXYYgz0v8qC TcPEMevtOkn6diRFblgxAw BTCwgWTjwSNwHSJkk22aTM lfuOkuwMwnHCJff8KxrCwu g0QtCmVzUBkmu6WjQ08tnR JvbCBzbGlkZXMgcnVuIGFs o00ws0diIRSqPfI6wUDvwB R1oHXwhXQsu0ZsyHdcOAPh x2gpMVMfnr9vqwxwrIKds6 FgnK4jolqdEGczcALzrtEv USNfd9y3iHBxUQJxLVMpKX vmxCo4PBXut563bq1cxhT7 zCYbBJU3CBqhMQEpXSHbpz UgZXZhbHVhdGVkXHBsYWlu XGYxXGZzMjJcbGFuZzEwMz NcaGljaFxmMVxkYmNoXGYx ULstV1mnMmBnF5RgLZAqRz UkwKUsH4otjKOsUZAyGTjk XGYxXGZzMjJcbGFuZzEwMz NcaGljaFxmMVxkYmNoXGYx SVhsF1avPpVnD9JrYTQtRh IgIFxwbGFpblxmMVxmczIy ASckznavZGXuRJzsC4ehXi CgBHLiuLyaLPjss9AiFBEm QSRtRryfsiSgMVr4lhOrYU BhclxwbGFpblxmMVxmczIy YCfyimdcWNRoNWlqJ3diWk TuPFIfyHdeCZbmh7TrHYBa XGNmMlxmczIyIEltbXVub2 kfs9AjZ4ddqJwbaAJ9SDEx Q8aqyNFcaPX0AKL4eO8vAJ xwolKaLAAmu9HgHSKzVRJo KyR1dS3yIHL3YpDUyThnCE BsYWluXGYxXGZzMjJcbGFu ZzEwMzNcaGljaFxmMVxkYm IaCWEpZQelR2ftYmZuG8Pc YNAuJbHbzPmxBRdvXQv0Hm xwbGFpblxmMVxmczIyXGxh daepKSRmRBmjH7saDeUfDO HzxFwjVDexx4JjIASuYBJb MlxmczIyIHMgTWVkaWNhbC LYDV03OTGcDLSutYkfpD3i pAZQSOVfamD5l3T8HDrzZC FwVXj0HUbnonVwEKUshD3r VEOtUR5hHBe3fsXuQKYcv7 SwBH7eKBXxtHUiSLT5UJYc r8FgQ7Svm9XiXNQbCUQonh 5atoSoGzXIvKFxLUUyff54 EPXmQO7eD5oiQLTkVGEund FmjQZqv6PpYKTnnAU9fZZu WG9HNsJUr19xZKBcSWRPrk JvZNTjiWtvmES6ksX6rV0h LiBUaGUgRkRBIGhhcyBkZX Gvan4rdqEhTQDzZSBkb1Fu cNQbvOEvqdMsU7Gtz4ScFR Auap26HGupgCNwte32NU0h R2Vxr7IwdO7nGJucRCNfr5 TlhVHofAFoFPQmq0WkT9fr xoeaYFtvnKKtgT9pFAIgEO g9ELNhq3FrDUMcy8CvEmFz shSsQKTxQLJdIEMidN92SG V7cDgpePkqupRdYM0iLNYm ypZiDAVeAYKxdE6dZSvqjm VuVINkrjR7s7F3YJktBNJp qdWeJlbjOCN3mzShekQ5jP WvF4bqkwjyEHpjKHZhs5Nu yA0eaIZAxRSsd1LvfASppS WPaAOtQP9qbdKrHG6tYXY8 ODggKENMSUEtODgpIGFzIH C9IYntTqyrFBK2fzUfPZWc f2SlPOxiI7lsK80ezYaxkI f3sKUubBfiyAQpeVUdQIXv vqZ8c0D3BJLoe7CcaijzWZ BsYWluXGYyXGZzMjJcbGFu ZzEwMzNcaGljaFxmMlxkYm XrERAwYTdwM6viMtLeJoMc TnrqFNG3xA== Gross assessment was [facility] performed at ([facility], = 9417) Department of Pathology, [address] [place] [id number], Technical component was [facility] performed at ([facility], = 9568) Department of Pathology, [address] [place] [phone], Professional component [facility] was performed at ([facility], code = 2779) Department of Pathology, [address] [place] [address], [place] [address], [facility] CenterTissue [id number] 14:51:42 Test Item Value Reference Range Interpretation Comments Case Report (test code Surgical Pathology = 104) Report Case: [id number] Authorizing Provider: Jessica Espinoza Collected: 06/12/2021 05:40 PM MD Meme Ordering Location: [address] Received: 06/12/2021 09:22 PM Service Pathologist: Ofe Luciano MD Specimen: Liver DIAGNOSIS (test code = [id number] 3220) FuZzEwMzNcZnRuYmpcdWMx IHtccnRmMVxlcGljOTYwMV xiikWmRGCyiQXlO1Bnmppc MLlnYD1lOC6baAhepRZtgG QeULZkByQaj4frj714wOHv y7yySPIZxjedfCf8wWwiO1 4rq6Y2NdnmB57ynIZxOHP0 PZUwBSGwlAPyXSGnOMQ7CR UmfUWsI7ncUUBsDW1yuudf WUxaAHwbBFGzdAU9PZBtaZ XzE1DyQVTdIAavUZTpxln2 DlSuPi0oeYWlqJiuZHlxAO JkXHBsYWluXGZzMjAgTElW GUBaGGKAS6BBYJyqbVTgDK 9xTPUJVg1GJGDVGO5IGCGd iAJtTK2cI2URFAVSMX6NDb TlxDRnnSckarVnEItim7Ki YCdlWQJgPI9vqErzFVVoRK 1eSLZjH5dpbJ3ooiu8HkQp MWBePiQ7ZAQjwuL5Ase6CP MqJRjvq5ohd9EcSJMgSAy7 iKrgNsJiBAKhw4mireOmTe DnJPBrVGUjPMMpgCNbM937 e0jbb6puruHamLO0FVCzVT P9ZSjzbjPynqN9HWiruRUd IgO7RAeamnOsABntioWund OaUxi8IGIiY065CBP9sEhl n1yjSHJ6KSOoSXQpPtHsHa 6dvSXyB882SNCpSKPYKNQl vAv3ZMPujwEamhIhkQKTt4 96N270k5ucOPQeqgMhkReA nsvxf2jtY534NZSslQSrvu YnZrYcUQFunBNvjGD0KXWu IR5tyrteSWptXVzrAVWdlp A7SXObvTLoR4SqXFWbKO0e xpfeGVX4BOdbZKVgOXL6Ry WoCCJmj7Fsfxo9GbHeom3g qf58HZI6u7ZntHnaQCE4GJ M0NpWgKv6ytSKbITIwYY8p GsGycMXbFVAyem87aWrnXQ weODZ3IAMdwvJvm2Owj8ng DaRxdhWtD8gkQ5FgOTFjZV UcRXZyWjDwihIjo7Osn3Ql dWGdzBt7v4idXDCsPZAuaD bxv1kuSRA5PAWopCQrB6ys jT8aRWJnJH9iaseeh8drKL wyOIqvDUEzzXK8dzN3GIDs wFUzE0IutM2yFGChNSmhLY Xyojr2NsVqTg9xcXAxqEfy MFxzYmtwYWdlXHBnbmNvbn RccGduZGVjXHBsYWluXHBs YWluXGYwXGZzMjRccWxcbG FuZzEwMzNcaGljaFxmMVxk XuTgEWQlZNxiN4kgFwKlXu MtIuk2HRLtfQThIEPxYkb4 FLLhzWOqXGSWdCxtzP0iAU QzhZmttY3qpPW7MTNeglXh rCYRzY6oCZJSaF3vUdE0HD OeLrc0UTB7AmGadGEcmH1= COMMENT (test code = p2eqlGRyRJAwuHR9OyPxKQ 4404) Sui4prp5CwzHWuhXMkNZth vVHelqBphg41sXD4hQ99EF 5uMSDaFoL6SRGutjM6Yun2 YLNiKHOhcMFbG503m9tps4 rxpxUssSO8nNdkENEslisf TdU1BJcpYVZkdlooLNx4AV amITYxwSI3UDJloBArG3Ib FNPxSJ0cxdl6QQK4YJifOI DwVlT8IFKzfSHrDAOnoFgd NEysv794MJD7LnCoVUAtmr NshYlfiX7vAkSwLSIBoSMc yPxeiZ2pw5jnXxGwJSA6gN TgfqEeBkQ1gDYhYwqheBK9 HNDfs8nhVFVzf63lnSXssy LrVCCsc4qfJhYjRGYqt68a l7IxyIEjiSlpZR07UAvjRK 5gkCrjbgJkYNgileO1mSP4 IGFyZSBzdHJvbmdseSBwb3 FoaDq1YXGhs9BsU9t6DRZm XYLjLN4ciVZbd8XqZBZqnt juJJ4nHY3fM4E1gTOdDKIc cpJEXpWmUNvfbVKrj9dwr8 DpY3tcuQlaGGvqn8FxcM8w IzKdVJIxlBBep78icZl7EQ QtYICQECNfEMX4lcJdnB9s bNoyxB3qHOVkyx6at9ziBQ 5pbiBhcmUgbmVnYXRpdmUu FNLUzZMsvJjaeR4ihKXtNe OwukTvq8n0GLFxICJel2Ps whAhzw6tFEZqtNYnyi7xJQ Ubt98nW43ssB2qBHDyvFCb GLJpnTHdkL3tq5uvbIMsJW 8aUEWfGeO3HnBqUaVjhOIo lp09APCzRHQvGVXpxF9viR 4swuVuIAswlkRkaoGqOV80 JQNel1dinqidv9MptbRcob 0rWSHfvg66gUPsZYWrgtOv q5EjnYPtaFFjlATdudNwgX NsdWRlZCBjbGluaWNhbGx5 LlxwYXJccGFyIFRoZSBmaW 4mnS7conC4VBGlXGYytFI5 WZOxcM8eQFFnHQUuxvFiFL dhZGljaGVybGEgdmlhIFRp P7LlGJDybx5eT4Jcu48mIN IvMjcvMjAyMSBhdCAxNDUw LlxwYXJ9 CPT Code(s) (test code p5sisGJwVUIyhMC2NjHlCL = 3357) Taz2ovm9RmgGSfbXDsSHfj sVRowcRcjy90rZZ9eJ62WL 2wZHRwKnC6TNIzdtB7Yfp3 ZCCnRTYcmZFsF964e0aix5 nvdeMymTW2eManYCOnhntw TjO8ASjeORWjioygKTv1AT deLZRfkES8AIFaoRJxV1Pj SCSyTB0zplm5FUI4QHfwGC HbKxG7UZOwiAGlPPWwrOlg QIxdg795LBK2LdFrIMNoxq OidXkscH3kXyNxPEI8RCMd TQiaTAncKKPtMJe0EzEhXA ggNVxwYXJ9 CLINICAL HISTORY (test u1mxnMSlBMZtfIA3SsZeGR code = 3356) Wrl6clk2ZhqODzfTBuVOdo kSJgytOvww09lDD0qT41HN 0dTTCpJpA1LRPoevW8Cab5 BJNkWIMwxFItO605u5nmf1 vrpeVdcPD0iDkuWTKukzfe WkX0AUxvUCWylqwlZCr8XM fkSIPstKZ3RAWutMFbT2Am JYBiUW0nkmj8TIE2ZQbxZJ DjDrU0MQSabKTqUORirCvj WQmeg154PNM0EjIxEDCggz FkdLgtvQ5wUaJnSANTfkff cmdlZCBsaXZlciBtYXNzXH Bhcn0= SPECIMEN SOURCE (test w3oqbIHwCUVouXR3VeEtKU code = 3377) Qcw7pyz4WteMMmmRQfOWah rWZbyxGsui32mVW1dY35MK 9jFHEkJgP9MYVubsQ6Etx3 JUWwLMTgvAUwC658o6vjw1 wpntSqpED6eSqnZZTcvgxl VoG6CFcoQCTdwcciKRk3HP nvKNDtwLG7LVRpdZMdA1Yl CCDsJL9tvtc6VON9IKlnEF ElMaY7EBNxcDToUTJgqGlv PSisu075LOU8EnMiDTVotn UnsDspuK9dXiPhNWHZyNWp clxwYXJ9 GROSS DESCRIPTION (test s3cxoPOmZNAudTO7CwCqCL code = 3366) Vdh6xjd2YykBVdiBBdQMkb aDIhvxEocu45hND4wF41VR 7nEZOeFsD5NTWpzaF2Qwd9 CPOwUBFrfLOnH662p1jae6 urqkBipCV0BTGhXMDbH6Ih KV1iPWNtoCVbW68omGKkRI U4NFQpHHRrtGFiTXXfDTK0 QMMgqUAnT1osGKEeHX3nmp gwHSfsZYjbBXPhvKD2JSDx xIKzZ0MkUQYnAKliWPAdrx p9MzKjIi6crTHgfVzfYBcu YXJkXHBsYWluXGZzMjBcY2 QyTYVgH8TxBMBhBWx8CGHp kJ6aYb9rcNVsaE4iF7YgJH DrJMKhqPHpABDmNGOtc9f4 sRS1jWDnbWH4eDGtjJehJL 6rhNRkYU5YPrZotjRvK0Tr WEAaG2YfOYwhxfAiQDKfiN 2wr2eeI6HnVI4cSZpdJTAe ZWNpbWVuIGlzIGEgdGFuIG ObgoBmbpAfXFddGSEmn1Wk gHRvKRYalBUqkacpSM08FO GxEWasBfTyxF8zmSAiA3Pw JGD7VQGpRJDbF0OoQUDbRK mvOTTiLK4ujVJoRWXeEEMy RAFuBAFbhCMzzH1naqRwuw QwpZy2FGWnXJSyczLlb8Jn zPx4iIOvQLspTCKlbC2wcI 0cYVOkNCHxfmakOHBtN6Ju sHOaAQgbXU0qJFtJBEZhTR NDUClccGFyXHBhcmRccGFy fQ== MICROSCOPIC DESCRIPTION n6jlqFPaNQFonKR6KeRqIK (test code = 3371) Osm2nev3BiwBZqeBTdSPoj vANdloSgix81qTN6xK96JD 6aWSPrTqI0CVZfcwS7Utv5 XONnCNJtrIAzW836w3kmr9 lhykGqdLX7tYqoTZYvwjqk RsJ2VAxcZNVirqoyFYx9AL rwTHOqiEF7IIRbmQKjJ8Ha OPSyFX0odxk9FCA9DZvdUQ AyFpP2AYTrnWVgVOWqgYfr PIcjq688VLV7SuAiROGymr IajXpsnA7gGqNqAUBPXFSu p0PjOXOfcNKtvB== SPECIAL STUDIES (test c0metRJoUPKdw8zzSDFitV code = 0966) FuZzEwMzNcZnRuYmpcdWMx DGmadoEtTJhyd6LbR2MxHn AwMFxhbnNpXGRlZmxhbmcx MUDuONU0pmHgHYIkCPdqFA JzOIgrQb2byBYmpUcpYqJi PYQbn8xicpWQpffirHn3k1 tkKMKaLbJ8dIUcJBxtN7je ktBhaZFeM2ThvSMliWr2w4 zmNwPzRqH6cTMsXNdtA7wt jcEaeMWhXNSnZAt1fX40TQ XexI6eaAEmIGzedmDbEbM2 CUgdULCbEwJ6ZVUbxLJbJY SdB6pgPCGiWFswNGKpOSrc vDNuQTN3cDeju8M8uSFgbU EgdKdaIaReTrSfGeZSy5Qg KFc5fQsnJ8XwCHQhAxP9tQ QgUGFyYWdyYXBoIEZvbnQ7 fCmxpiXnd43yfUOzSXIcQC ZxWrDfuRdkBCWnUVFXg4Na bEtsQIW4tJd8mXhtTwzlQZ B9Lqb5HN8xcx43lmw3sQtb EVTjvgnrYcY3AKqtKUBpzc opVUc4FNakTADdbWQ3ZDBs tFRgM4EhHIWkMH6zrlq1LZ E3ZQxgDHUuIbH4IHOapXPs YQNdnNueHPxxi837NDQ6Pg YgOU5gZ2Osu6T4fU4fzQFh SYUqaGHaUdYkMTGlzy8rfB JjAUbmo7WsZFU3qtQ2eZSo wSSoWPRoTM18Amdfd9SpVl qir9GpD98miAF1FRknt9ki IC8oZiZ4luJyVIgrd5seaP 2qNwL6TAhdNC3nPW1oMWWl dW9soofmMSTrQfDnctnyUB MvoEdpwqRhSu9hsVmaDIQ8 TTtgJ7dsgD9jZrZ8IAquB6 tuoL9gUVo8BNgiwSI7ERLu yF2zUU6ujmcxm4bwIZblQV qkJXKvdlR2jvB7SSNszLPf S0IruS5kNIObNV3oycrde0 giZME7HDoxYQRxGQG6TdHq GLGba2Rqwbd6YmMdm9EtlU QgBWrlN97mi791WHKkzpTe S8irxZMkitarlKYexcksWL lfuoM1QRCbFUZoYZvjPAYr XGZzMjJcbGFuZzEwMzNcaG ljaFxmMVxkYmNoXGYxXGxv R8noBpNvG5EvXMCeQwSdLC hyYEnqgNXqfKFneLL9mE3u HA8aWRGztJTbG5LsQQEikr RfhVEcDIL9jUVpdRGtQE4x VNgnjQDxg1efz7GhS7uruP vjmUB0VI0pRSPkOVYpTExa x6LjjJ1uIijixJKohaubUU xmczIyXGxhbmcxMDMzXGhp E3umSuHzAAYzgAebMIhml3 NoXGYxXGNmMlxmczIyXGx0 cmNoXHBhclxwYXJccGxhaW 1qRbJhVwFbJnytOO9cCAXw D9svcKCyRNAfPHWmR3zdMu JiuM8ziBktWUsiTeVgTnZh MnZXp436vq2nLJPkrYPlyp IJhOFyaH1pMZuyMJonAFqb dERjXZyeq8azQDMcq7h5xQ AqQCRxrzQai4rmODazsbFy MSEcpEYakBKgPFXit38yDP lldGiikIcgDPEen4MvrGzt i6OkQaCpSRvou9AzV57kiG JvbCBzbGlkZXMgcnVuIGFs d48dh1ebKAUnGvJ8rYRxnR G6oXWjmCIjk2PmeBduQBIg d3bmUVHvfo8zzgpmjMMmp5 WgkH8pxthjOByjcJLvzjVx MHWvl1w1wVOkGJGnMEJuUC pkmAl6UIBuh561vm4rbjH0 aBYbQQR2WFlyNUGzKEPtmk UgZXZhbHVhdGVkXHBsYWlu XGYxXGZzMjJcbGFuZzEwMz NcaGljaFxmMVxkYmNoXGYx LIvxC4jeKeJoK6HnMTIxVy QfmTJaN5psyHUmMYFyCHpb XGYxXGZzMjJcbGFuZzEwMz NcaGljaFxmMVxkYmNoXGYx VMmaS4flZhZiN7OmNDLsFk IgIFxwbGFpblxmMVxmczIy HCnqmpxqDYTlCCthD7izGw FmZCYpkWwuDAdtn9KrAUOg HQEfRenppaCiJZr0saKbYF BhclxwbGFpblxmMVxmczIy OXkgbtntWXLfRJlfF1taVj UvXSGrcPfsHYkei2WnRVIu XGNmMlxmczIyIEltbXVub2 ooe1HhE1hdgEtqfUZ9LQUx M6mpgNYbaRY1VYL0xZ0hPY zfudIfODFfq2GiFCHsYHTv KfG4cD6uOZP5KhIKxCotDZ BsYWluXGYxXGZzMjJcbGFu ZzEwMzNcaGljaFxmMVxkYm KoZHBfKEqsI8irTqFgT9Hm DGBbIyTzzPjnRDtnCZy8Aq xwbGFpblxmMVxmczIyXGxh oqooXJRmVSykQ2spJpRcPP JlpRbaVYlwl4EbZRIsTOEy MlxmczIyIHMgTWVkaWNhbC UWGX89XTUhHQUayDpsyI9z bCJBEAIdaqM3d6K6DAacYZ DdWFm2YTaevyLdQZQumQ0q RHZaNO0wUCy2upUwULOun4 CmSY0gQIHytPZpQBU1MASs s6TkE6Hqm2PgCYTiWSVxkj 4jqaAnYwMZtAAoBDWfxm43 RCMdQK1oS1zjNCAcUEZycf UluOSjj9KnJQUjtOF0yFYh UW7PHtJAv40wRQDiXZLBdu EoTPXcqLxlnIW8wuG2lK0i LiBUaGUgRkRBIGhhcyBkZX Cjfg2auyYuFCSoYNZzx5Ax eYAjnGByuiUeA5Eyb3WzRA Rvom75TJtraKZmvo53GA5c M0Xhb7FitU3cNDbiPWDeq2 JyuSFymZQoFNKmz0DdD7zt cozoEOnkaAWuyQ2oZSUvVS l4DHSps0IhOHMfy3JzTcAc acAwFVWrDDOkTGFkuY93VO Z6lZgfrShdcoAvHE9tHXHv erUbAANzVVIydP8kJYeiap UyNPMzsuO6q1U2NDhtPIJl dcRnJzktDCV6bqZlgqV2aS DjU2pvuspiHPfhRACoo5Vc hW1rlTNKeSXos9BagUQngX IWfAUwHK0vurGoKO3jWKL7 ODggKENMSUEtODgpIGFzIH Q7NMutAjohQXR2pwEuYQQu k6ZiEBaeG4xvJ36dwMcizS o7vARacJxnxJTvyRZjHKOs prK1i2W1CEJut4ZyatolCI BsYWluXGYyXGZzMjJcbGFu ZzEwMzNcaGljaFxmMlxkYm PtPPNxMFnwF8qcSkOoYqLq BlmbHLX5kK== Gross assessment was [facility] performed at ([facility], = 4072) Department of Pathology, [address] [place] [id number], Technical component was [facility] performed at ([facility], = 6191) Department of Pathology, [address] [place] [address], Professional component [facility] was performed at ([facility], code = 2779) Department of Pathology, [address] [place] [address], [place] [address], [facility] [id number] 14:51:42Surgical Pathology Report Case: [id number] Authorizing Provider: Jessica Espinoza Collected: 06/12/2021 05:40 PM MD Meme Ordering Location: [address] Received: 06/12/2021 09:22 PM Service Pathologist: Ofe Luciano MD Specimen: Liver LIVER, BIOPSY:- ADENOCARCINOMA- SEE COMMENT Signing Pathologist Direct Phone Line: [phone] signed by Ofe Luciano MD on 06/16/2021 at 2:51 [...] diagnosed on common bile duct biopsy taken 06/07/2021 is noted. The findings may represent cholangiocarcinoma provided breast primary is excluded clinically.The findings were relayed to Dr. Jessica Espinoza via [employer] on 06/16/2021 at [phone], [phone], 28579 x 5Enlarged liver m assLiverReceived in formalin labeled with the patient's name, MRN and liver, biopsy. The specimen laura fulton core needle biopsy measuring 1.4 cm [...] evaluated Immunohistochemistry technical testing was performed at [facility], Pathology Laboratory where it was developed and its performance characteristics were determined. It has not been cleared or approved by the U.S. Food and Drug Administration. The FDA has determined that such clearance or approval is not necessary. The test is used for clinical purposes. It should not be regarded as investigational or for research. This laboratory is certified under the Clinical Laboratory Improvement Amendments of 1988 (CLIA-88) as qualified to perform high complexity clinical laboratory testing.[facility], Department of Pathology, [address] [place] [address], [facility], [address] [place] [address], [facility], [facility] of [facility]ology, [address] [place] [address], ZQYP-GLUCOSE [id number] 12:14:31 Test Item Value Reference Range Interpretation Comments POC-GLUCOSE METER 150 mg/dL 70-110 H : TESTED A T [facility] 6720 ([employer]) (test code = KENYA Mcmullen [facility], 1538) 49351: Drop 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/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 ID = [id number] for MIHIR DIAZ ANTI-MITOCHONDRIAL AB, REFLEX TO [id number] 11:22:59 Test Item Value Reference Range Interpretation Comments SCAN RESULT (test code = 3123182) Anti-Mitochondrial Ab, reflex to [id number] 11:22:59Scan ResultQUEST DIAGNOSTIC [facility], reflex to [id number] 11:22:59Scan ResultQUEST DIAGNOSTIC [facility] HospitalAnti-[facility]ochondrial Ab, reflex to [id number] 11:22:59Scan ResultQUEST DIAGNOSTIC [facility] HospitalAnti-[facility]ochondrial Ab, reflex to [id number] 11:22:59Scan ResultQUEST DIAGNOSTIC [facility], reflex to [id number] 11:22:59Scan ResultQUEST DIAGNOSTIC [facility] HospitalAnti- Mitochondrial Ab, reflex to [id number] 11:22:59Scan ResultQUEST DIAGNOSTIC [facility] HospitalAnti-Mitochondrial Ab, reflex to titer 2021-06-16 11:22:59Scan ResultQUEST DIAGNOSTIC INCORPORATEDLakewood Regional Medical CenterPOCT-GLUCOSE [id number] 07:29:28 Test Item Value Reference Range Interpretation Comments POC-GLUCOSE METER 124 mg/dL 70-110 H : TESTED A T [facility] 6720 (BEAKER) (test code = [facility], 1538) 70834: Drop Hammer Operator Helper/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 ID = [id number] for MIHIR DIAZ HEPATIC FUNCTION [id number] 06:32:25 Test Item Value Reference Range Interpretation [...] (test code = 35 U/L 6-55 347) Drop Hammer Operator Helper ID - DBSpecimen moderately ictericPOCT-GLUCOSE [id number] 21:12:07 Test Item Value Reference Range Interpretation Comments POC-GLUCOSE METER 148 mg/dL 70-110 H : TESTED A T [facility] 6720 (BEAKER) (test code = [facility], 1538) 19868: Drop Hammer Operator Helper/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 ID = [id number] for JUAN HAND SE POCT-GLUCOSE [id number] 17:03:44 Test Item Value Reference Range Interpretation Comments POC-GLUCOSE METER 123 mg/dL 70-110 H : TESTED A T [facility] 6720 (BEAKER) (test code = [facility], 1538) 57774: Drop Hammer Operator Helper/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 ID = [id number] for Do aldrichdomenic Parth POCT-GLUCOSE [id number] 11:52:32 Test Item Value Reference Range Interpretation Comments POC-GLUCOSE METER 143 mg/dL 70-110 H : TESTED A T [facility] 6720 (BEAKER) (test code = [facility], 1538) 38546: Drop Hammer Operator Helper/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 ID = [id number] for Parth Salinas POCT-GLUCOSE [id number] 08:02:23 Test Item Value Reference Range Interpretation Comments POC-GLUCOSE METER 140 mg/dL 70-110 H : TESTED A T [facility] 6720 (BEAKER) (test code = [facility], 1538) 40689: Drop Hammer Operator Helper/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 ID = [id number] for Parth Salinas HEPATIC FUNCTION [id number] 05:08:28 Test Item Value Reference Range Interpretation [...] (test code = 34 U/L 6-55 347) Drop Hammer Operator Helper ID - DBSpecimen moderately ictericPOCT-GLUCOSE [id number] 21:09:08 Test Item Value Reference Range Interpretation Comments POC-GLUCOSE METER 127 mg/dL 70-110 H : TESTED A T [facility] 6720 (BEAKER) (test code = [facility], 1538) 30090: Drop Hammer Operator Helper/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 ID = [id number] for JUAN HAND SE POCT-GLUCOSE [id number] 16:45:22 Test Item Value Reference Range Interpretation Comments POC-GLUCOSE METER 138 mg/dL 70-110 H : TESTED A T [facility] 6720 (BEAKER) (test code = [facility], 1538) 85312: Drop Hammer Operator Helper/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 ID = [id number] for ZA VALA, ERANDY POCT-GLUCOSE [id number] 11:38:28 Test Item Value Reference Range Interpretation Comments POC-GLUCOSE METER 182 mg/dL 70-110 H : TESTED A T [facility] 6720 (BEAKER) (test code = [facility], 1538) 97641: Drop Hammer Operator Helper/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 ID = [id number] for ZA VALA, IGNACIONDY POCT-GLUCOSE [id number] 07:48:25 Test Item Value Reference Range Interpretation Comments POC-GLUCOSE METER 93 mg/dL 70-110 : TESTED A T [facility] 6720 (BEAKER) (test code = [facility], 1538) 67708: Drop Hammer Operator Helper/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 ID = [id number] for ZAVA LA, ERANDY POCT-GLUCOSE [id number] 21:21:25 Test Item Value Reference Range Interpretation Comments POC-GLUCOSE METER 119 mg/dL 70-110 H : TESTED A T [facility] 6720 (BEAKER) (test code = [facility], 1538) 88004: Drop Hammer Operator Helper/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 ID = [id number] for JUAN HAND SE POCT-GLUCOSE [id number] 20:18:07 Test Item Value Reference Range Interpretation Comments POC-GLUCOSE METER 94 mg/dL 70-110 : TESTED A T [facility] 6720 (BEAKER) (test code = [facility], 1538) 88431: Drop Hammer Operator Helper/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 ID = [id number] for ZAVA LA, ERANDY POCT-GLUCOSE [id number] 20:15:49 Test Item Value Reference Range Interpretation Comments POC-GLUCOSE METER 165 mg/dL 70-110 H : TESTED A T [facility] 6720 (BEAKER) (test code = [facility], 1538) 05214: Drop Hammer Operator Helper/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 ID = [id number] for ZA VALA, ERANDY HEPATIC FUNCTION [id number] 16:35:07 Test Item Value Reference Range Interpretation [...] (test code = 34 U/L 6-55 347) Drop Hammer Operator Helper ID - DBSpecimen moderately ictericBASIC METABOLIC [id number] 12:34:43 Test Item Value Reference Range Interpretation [...] 697) EGFR (BEAKER) (test 96 mL/min/1.73 ESTIMA MANOJ GFR IS code = 1092) sq m NOT ACCURATE CREATININE CLEARANCE IN PREDICTING GLOMERULAR FILTRATION RATE . ESTIMATED GFR I S NOT APPLICABLE FOR DIALYSIS PATIEN TS. Drop Hammer Operator Helper ID - JM LSpecimen moderately ictericPOCT-GLUCOSE [id number] 08:13:41 Test Item Value Reference Range Interpretation Comments POC-GLUCOSE METER 98 mg/dL 70-110 : TESTED A T [facility] 6720 (BEAKER) (test code = [facility]ATIONLOR[facility] ObsEva [facility], 1538) 64056: Drop Hammer Operator Helper/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 ID = [id number] for TOYA CHOUDHARY NARCISA POCT-GLUCOSE [id number] 21:25:44 Test Item Value Reference Range Interpretation Comments POC-GLUCOSE METER 133 mg/dL 70-110 H : TESTED A T [facility] 6720 (BEAKER) (test code = KENYA Mcmullen [facility], 1538) 20572: Drop Hammer Operator Helper/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 ID = [id number] for PE SHYLA SANTOYO, CHOLANGIOGRAM, [id number] 18:57:00Reason for exam:->biliary obstruction recommend R biliary PCT [facility] : 1970 Sex: FFINAL REPORT History: Large hepatic hilar mass with biliary obstruction. PROCEDURE: Following informed written consent, general endotracheal [...] Chiba needle was then used along with fluoroscopic guidance through a mid axillary approach to access a more peripheral and inferior right intra-hepatic duct. An 018 wire was advanced through the needle centrally through the main right hepatic duct and into the commonbile duct. An AccuStick sheath was then placed over the wire and into the common bile duct. A 4 Samoan Berenstein catheter and 035 angled Glidewire were used through the AccuStick catheter to carefullytraverse the common bile duct and ampulla and select the duodenum. Catheter was advanced over the wire to the level of the ligament of Treitz. An Amplatz wire was then placed. The catheter and sheath were removed over the Amplatz wire. The tract was dilated. A 9 Samoan peel-away sheath was placed. An 8 Samoan internal/external biliary drainage catheter was then placed over the wire, through the peel-away sheath and into position with [...] to external gravity bag drainage. Using ultrasound g uidance and a right upper quadrant anterolateral approach, a total of three 18- gauge core tissue samples were then obtained from the patient's large central hepatic mass causing the biliary obstructiondescribed above. The samples were submitted in formalin to pathology for evaluation. Overall, the patient tolerated the procedure well without immediate complications and was discharged from the department to the recovery room in [...] collections or evidence for hemorrhage. IMPRESSION: 1. Successful uncomplicated placement of an 8 Samoan right internal/external biliary drainage catheter for a high-grade ob struction of the right intrahepatic ductal system secondary to a large central hepatic mass. 2. Successful uncomplicated ultrasound-guided core biopsy of the large central heterogeneous mass as described above. Total fluoroscopy time: 10.1 minutes. Estimated total patient dose reported as (Ka,r): 554 mGy Signed: Sarkis Saucedo Verified Date/Time: 06/12/2021 18:57:59 Reading Location: [place] [id number] Angio Body Reading Room POCT-GLUCOSE [id number] 18:31:15 Test Item Value Reference Range Interpretation Comments POC-GLUCOSE METER 124 mg/dL 70-110 H : TESTED A T [facility] 6720 (BEAKER) (test code = [facility], 1538) 08056: Drop Hammer Operator Helper/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 ID = [id number] for Carolin Espinoza lt SARS-COV2/RT-PCR ([facility])2021-06-12 14:39:57 Test Item Value Reference Range Interpretation Comments SARS-COV2/RT-PCR (test Negative Not Detected, Negative, See code = [id number]) external report for linked test POCT-GLUCOSE [id number] 21:59:26 Test Item Value Reference Range Interpretation Comments POC-GLUCOSE METER 138 mg/dL 70-110 H : TESTED A T [facility] 6720 (BEAKER) (test code = [facility], 1538) 30769: Drop Hammer Operator Helper/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 ID = [id number] for KIMMIE DOMÍNGUEZ POCT-GLUCOSE [id number] 17:44:44 Test Item Value Reference Range Interpretation Comments POC-GLUCOSE METER 137 mg/dL 70-110 H : TESTED A T [facility] 6720 (BEAKER) (test code = [facility], 1538) 58572: Drop Hammer Operator Helper/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 ID = [id number] for MARIE ROWE EMMIE POCT-GLUCOSE [id number] 07:51:42 Test Item Value Reference Range Interpretation Comments POC-GLUCOSE METER 94 mg/dL 70-110 : TESTED A T [facility] 6720 (BEAKER) (test code = [facility], 1538) 39508: Drop Hammer Operator Helper/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 ID = [id number] for EMMIE MOREIRA COMPREHENSIVE METABOLIC [id number] 04:51:42 Test Item Value Reference Range Interpretation [...] S NOT APPLICABLE FOR DIALYSIS PATIEN TS. Drop Hammer Operator Helper ID - PIAYA LSpecimen moderately ictericCBC W/PLT COUNT & AUTO [id number] 04:50:09 Test Item Value Reference Range Interpretation [...] PERCENT (BEAKER) (test code = 2801) POCT-GLUCOSE [id number] 21:21:27 Test Item Value Reference Range Interpretation Comments POC-GLUCOSE METER 140 mg/dL 70-110 H : TESTED A T [facility] 6720 (BEAKER) (test code = [facility], 153) 94833: Drop Hammer Operator Helper/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 ID = [id number] for MO SEJUAN POCT-GLUCOSE [id number] 17:36:27 Test Item Value Reference Range Interpretation Comments POC-GLUCOSE METER 123 mg/dL 70-110 H : TESTED A T [facility] 6720 (BEAKER) (test code = [facility], 153) 95346: Drop Hammer Operator Helper/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 ID = [id number] for MA RTIN, CHIJACQUELYN BONE AND/OR JOINT IMAGING, WHOLE [id number] 14:29:00Unlisted Reason for Exam - Click Yes and Enter Reason Below->No [facility] : 1970 Sex: FFINAL REPORT PROCEDURE: BONE SCAN, WHOLE BODY CPT CODE: 42266 INDICATION: Left hepatic lobe mass. PROTOCOL: 21.9 mCi of Tc-99m MDP was injected intravenously. Whole body and selected spot images were obtained approximately 3 hours later. FINDINGS: Tracer activity is moderately and d iffusely increased in the skull, maxilla (worse on the right), first anterior ribs bilaterally, mandible shoulders, sternal manubrium and proximal sternal body.Tracer activity is mildly increased in the posterior seventh rib, hips, knees and feet. IMPRESSION: 1.There is no typical metastatic pattern. 2 .Increased activity in the sternum and anterior first ribs are most likely due to degenerative changes, 3.The focal increased activity in the posterior left seventh rib may represent muscle insertion site 4.Degenerative changes in the spine and peripheral joints.5.Skull hyperostosis. Images for compari son/correlation were chest CT on 06/10/2021 and abdominopelvic MRI on 06/05/2021. Signed: Skyla Angelo Verified Date/Time: 06/10/2021 14:29:27 Reading Location: [address] [place] [address] Reading Room POCT- GLUCOSE [id number] 14:23:13 Test Item Value Reference Range Interpretation Comments POC-GLUCOSE METER 136 mg/dL 70-110 H : TESTED A T [facility] 6720 (BEAKER) (test code = [facility] [place], 1538) 63857: Drop Hammer Operator Helper/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 ID = [id number] for EMMIE JOHNSON TISSUE [id number] 13:44:33Surgical Pathology Report Case: [id number] Authorizing Provider: Oly Whiting Collected: 06/07/2021 10:53 AM MD Page Ordering Location: [address] Received: 06/09/2021 09:46 AM Serv ice Pathologist: Sean Gibbs MD Specimen: Common Bile Duct, Obtained by [employer] COMMON BILE DUCT, BIOPSY:- INVASIVE ADENOCARCINOMA (see comment) Signing Pathologist Direct Phone Line: [phone] signed by Sean Gibbs MD on 06/10/2021 [...] as single cells with a desmoplastic response. Thisis consistent with a malignant process, in the appropriate clinical setting. Radiological, endoscopic and cytological correlation is advised. [id number] Bile DuctReceived in formalin labeled the patient's name, accession number and "common bile duct" are multiple fulton soft tissue fragments measuring up to 0.1 cm in greatest dimension which are filtered and submitted in toto in A1.ASHIA Felder, HT (ASCP)Performed [facility], Department of Pathology, [address] [place] [address], [facility], [address] [place] [address] 18[address], [facility], [address] [place] [address] 8[address], [id number] 13:43:33 Test Item Value Reference Range Interpretation Comments Case Report (test code Medical Cytology = 104) Report Case: [id number] Authorizing Provider: Oly Whiting Collected: 06/07/2021 11:18 AM MD Page Ordering Location: [address] Received: 06/09/2021 08:38 AM Service Pathologist: Sean Gibbs MD Specimen: Common Bile Duct, CBD aspirate DIAGNOSIS (test code = [id number] 3220) FuZzEwMzNcZnRuYmpcdWMx IHtccnRmMVxlcGljOTYwMV uyhjWdYGXkwLCsU7Wdzwtj KWwzMB2oUJ2xmFkcmNRzrY IuQDCnApDkx4kif634dFLy f6yhRFABthqweHb9sQrbH1 6eo3H6OvmyW44hmYXaENP0 QBZhNIPblLAdCREcIMS8PI IvrXJyA9qrWKNmHA4pjppr YLirNOkrNSJvuAQ5NOMnbT NuR2OrLUJlFOkgGMAbfne9 HlOmZy7prGQkmWrjNWinVK NjJEDiXImaHRScFzRhE36H NC9ZXAWAOEWhBTEJYPFHC6 PVUvPDYCJCOTEVADJcR4yE I9OEHZ6VGAtwvXRkSNEhSO 3mGN4MWOVSWxQjEd1TEV9Q TElHTkFOVCBDRUxMUywgQU BHHl6FMCURBH0VMSBwBJFb NUCuh20kAF30MVbtTIU9s2 xydGYxXHNzdGUxODAwMFxh bnNpXGRlZmxhbmcxMDMzXG T4fjCxJVDiPUzyNFGcXGse Jl8tkOTugQlkJbOvNJOzf5 hjijSVigsokYm7w1hrJUKq UeO3tDTzZBpxQ4zlejOirT BfTPNpRWq2bR71IWArvP0q eOOhFWgmvoLnFxA2QJfqQM IpOhC8GYDgxZStUYFxP7cz ZWQwXGdyZWVuMFxibHVlMC P4mRfvz5N4tBDsrFNblSkl OzPaYjSbXfVNl6XkYIz1qH mwQ5YpPBIaSzJ7dMJkHKFo XHoiBFZlPLMsjuP8pL57YN svlrW1xQUed5Nuy09io519 pN7syWGcHFU7YQVzGRJfzZ TrNHNaZBH9YIWwsBIxQ2yu ZAIoRF5zcxhxGEuoUJqpOV ZsdWF2ROGcaSAdJ0EyJYPw LFwrFGAtccj6WhJcYk2beS ZkkBfqOPazq9cmu7vtxLSn Rlq3CPPaSzNqVavwERuzs2 Oix8ohDRWqph5qQHA3jYFc xFxmp0F8aLGzTRCczFOcRI NrBS3sgLWfQLZxvG8dyznt XHBnYnJkcmhlYWRccGdicm VsBp6wiMpaRGP6SBcmI7me oC7qUyM9OQgzJ5rtcR6uCQ i0IDgfHDAyoLP2ybU5HPDf xKVuF1DqtH4tGDBiKV5mcz l5r9atQBK9BVkfRTRyMmS6 xhO3YRAbnMRpBEAgkPfhVF goa979IWF7EuEeFREct7Pm P4OnmObjF16qkXbpW80fMM ZprWaijD6ptWiqmL0dXzMp NcAmBGlxeZaqKV6jYTMpE8 bgpSEqHQWsALThA9dnKtOa uD0rpEeeXPeaiiOtUHMnBy g2SFZtqNMeCMLvQxk4SQBe WRVnZ09xzavzUFD9fW7ok1 pjj4TqMMkiUIE0YQJws52z QMstwzA1MBowFq21UIwgYM A1YHmduUQyfI1= COMMENT (test code = o0hbrKCbBTXnpNZ2WlJvUA 335) Dog1zjv2JrbJHhlOEaCXko vSXouyQiyk08mKM3sV43XR 3uQTOhJsG5ACDcxsD0Nvk3 JSVpKVBqxMZdL204a7lsg7 mcdjTbuJF5uQjwKTWwxswh MxY5GFloBCNmchniBGg7VH odDVJigOV9EWGomPPuD7Ka TKLlDC5rxbe8OMR4RLntXN EpZnL1IHQqpMOdSHCcfUvn MHnra280SZK8JsXfLWTpcw DmsQldfU3zJuPiGDHTJZPq omZ6mGR9YF2yFQMtCDK5hh 9uaWMgbWVkaWNhbCByZWNv vaUvIAkgHApxjrcdlD4tsa Yvq1sjmnSoYmNfYHZ1TRoa dmVyIGxvYmUgbWFzcyBhbm BnQX4cZE1mh4Vcw8ObDjPq nMLtDOMklP2lHJ0wEHUfor FkCLUjcWZfe6YmmsIaIcHz RTS1BP8mcT2bHQIkySBktX R7kQCzdDU9YCxlg9QhYuen sGGoPFWzp41du1QkjCToOX Jqy6Eaq3JugsEqipuhRYqd PC1omWInQpECrKVxi7Yipb VfmDnpIJXoq1iycvUhVPIu ZWRseSBhdHlwaWNhbCBjZW jnxaA8rEUuJN09U2ftNMAd tRNjWdOmtxVioCCcVIl9oA TibVO2XUMlgPMorzAgvp4e YXNpYSBhbmQgaGlnaCBudW DhSAQgJNSsOKZ4sQ1hcDKn bWljIHJhdGlvLCBhcnJhbm wgLPOhtdFkk5qzo8b1WSVd bHVzdGVycyBhbmQgYWxzby IjgC4wvFmuVSoyxHFxr6Le UuBZk06ySQAgrXvsXMBhj1 iklF19oiQmrGCkuIsgb68r HzZ8JXR6v7uglo2sO1Aorx ZuuStwhYmjVPV1uF5ky5v0 VVIxakIbAOCnUUZ5UZAnCD WrpDPhSXRdZAAvxX2pkCRx xeXsDr3xHS4heDbtssNwL7 xpRWFgPF6zM6XwA4mam02m LVSpucV2bGObczbkqZSqL9 ofsvupTCfty5Q4zOddNg5a iIPgCCVresUAiZQdr1NeQI gtucMdEBAhf6XvV4wiLWpo qYT5bD0tn7t3DEWssO9edQ ARYpNwMWT2XjCeDUvuRHH6 CPT Code(s) (test code z5nuaMKxNOFreEZ6YsWyKZ = 3357) Vlb5yda2HkeZMovXOyXRoq uZVgdhVpsv92qFF9gR83ON 2iDAFrMvB7KLUonoR4Wcz9 HGNpOBBssIWmO519t4vij7 zzvfMcrMS0dMnfLVGmjgez IkU0IUywCPSfjygsGDo7EL fhJAGqrQU0OBSvrMMbJ6Ao ZTMnXO2inyk9LCS6HBuiPN UyEhJ7LUQfcAVkCAJroAdq LBdjm605DAF5GcDuGQNmhc DkyNvjcF7wPqBoNHO8HXYm OFxwYXJ9 CLINICAL DATA (test c8skaUBsZQMemUZ5EuSmWN code = 3355) Thb2pfk0UveMNrhDGsVXwo aCMspkFsek89mWR4gS00FO 4zASEqSrJ4BVJvrjN2Tnm6 BSEyVRJkeGAfA757c3gej7 gewyUmwMR2LDKgUNKsS8Xk PS6vGONjaNLqL15auXKxBU T0YTEwPKNcuYQkUENoQMP3 JPZmwQNkO0dwJVQqPK3jsp tnRBkpIWmtQGQiiAC3BGRt oCBlN5QfFQIjUOzqYBCzyd y7YbDvDa7nvLSnnJisWKfo YXJkXHBsYWluXGZzMjBcY2 MvNOryW07swNt4XMGqjBRk kwnwc2ZgpWxysB70xhWmr0 McC4jzxPChV9ywM4ClM5ij b87eRqRtkWlpuAwggOQbvQ mfYV41LUKtkjmjh0M2EIsn lZusmCndig6nKHWfhKZhc4 SzTEM4gZA3spCsXcPrN59l cGFyfQ== SPECIMEN SOURCE (test i2xmlPJvFJHjhVB6UkRaKI code = 3377) Udd3oma6TscKLffAJaNIxz nGCfavUjmg36hDH5nE60LQ 9fOHYfKoO0LZGpsqA3Slv4 DKEuQGIfqOKpQ190c1bqo5 prydWcqIZ8sZgyFZNocyry VrG2DMgqJVMrofqkYNl9HV rjNVTkvDF0HTUfkRYvL1Ct GKPpQE4fsdw0FCX5XVsrEQ EhXvH2OQQpfYRyXXMabPbj GKtbi130KFF2RuWtNMWpja VpsWeexD0tRePiNLTAA37J N92hZqiUTNTAODMHROLVCB lSQVRFIEZMVUlEXHBhcn0= GROSS DESCRIPTION (test b5qifHFeINLmyDEtKiOpPX code = 3366) NeOPDln3vvWJHfmWNuOpEw MzNcZnRuYmpcdWMxXGRlZm Oqx3rrd901hTSge9ohXYWt TmH7uFFtVPKanODtI986j2 nbd9mriwKfiDI4HSIfECM6 EBtgpdNkpeM6XYkovNQwXt S0PKrppoCsDMffdcDdqsGu Qrh2BBFtH191YPN8hTkzn1 nyDFU5PCSlRKXnJwEoJr7v xPDqM025AYErEEVPVGLotX z3AAMkboCnpaFafZAWn099 X229t9hqUALjzkIdfJtLyz mat0tuI011XCTnuBDlfrUw QpTbKQWlzOQtqCK3JTQrYC 5qcyhmBiMyWW6zmzbcSfTr JK3ihcv3YdSlOK1bnytrZr DpJRnmGCKscxykOUDrk5Rd snrzEH6dQ7Jpx8K2eE1jpU OoHUFqpOEbYgGoJGVsxb6b yQUbWInnh6AjHIS4jsI8eA JtjAQzKIJpKC65Covhd1Aq CgebFZJ0ORBpuoRag9Ulq0 rmMfQrboJaC3aaG0JzVXOg UAMbULLvFmAolgIji0Swc7 NjtRSyeGs1k4rpUYQgLXRw lUucp2fzFBO1RPKvA8K4eS Qnq8njNPhcVJXfaHZ3ozzt ZOfbGZQunsU1elqbMYsdWT GszPH6ftcyGAxvJAZrSmZ3 qerlMClpZTTbESY1IJlal0 59UEY2KPlgAjiqKZtrUKXe bmNvbnRccGduZGVjXHBsYW luXHBsYWluXGYwXGZzMjRc uMqlfOuvqZ0sWcOzWiOxLN rgRY5aETKpT2fzxKKcEQQf ZTFfU7neLxLtwN1olGoeSG uiovZeGYPjN2QvcqNxDAMc AP2dIQvhwJgsofMtjBZqkt gsrYDqAOYuSfo0SFMjsrZ4 SVEzNNEwjxGeYMBcO6i3o2 HuaT4tZSbbXIT3 MICROSCOPIC DESCRIPTION q0qjkYGuDMUryVK1ZzApOT (test code = 3371) Nzo0mgp3PblRUoyJWyNZig lSYqseMafx10uUL3cL35LN 3dJTAqVsJ5IBRxfiQ9Zuh6 BMCuGEIwpZFvI725b7eqh4 cqjjYgkJY1tLjjRNQpscnv JxZ1YBxeVAZygtlxKVm1KZ fcGHRrkTL1LVWhhMShN6Za ZSXkIN5tdps9UEM3HJmbEU PgMxF4MXRctFRqLAPmwSnh GFpip642BSI5IaFoNOTbyq MptFabhB7mYiTiMPVFNBNa q4YyVRJsMYcoEMS7 Gross assessment was [facility] performed at ([facility], = 2777) Department of Pathology, [address] [place] [address], Technical component was [facility] performed at ([facility], = 2778) Department of Pathology, [address] [place] [address], Professional component [facility] was performed at ([facility], code = 2779) Department of Pathology, [address] [place] [address], [facility]:43[facility]33 Test Item Value Reference Range Interpretation Comments Case Report (test code Medical Cytology = 104) Report Case: [id number] Authorizing Provider: Oly Whiting Collected: 06/07/2021 11:18 AM MD Page Ordering Location: [address] Received: 06/09/2021 08:38 AM Service Pathologist: Sean Gibbs MD Specimen: Common Bile Duct, CBD aspirate DIAGNOSIS (test code = p5rfkFAbPIOcm9owTTUbfF 3220) FuZzEwMzNcZnRuYmpcdWMx IHtccnRmMVxlcGljOTYwMV qckxAtPDDtcBJbI8Ylwwkv XFilXH3aSM0geDrdiTMzcY WdHYDwNpMom2amb592hMDc i1inTSIPoveziDi9eXhtX5 5fv2W3BgsiU32vpTKeMXJ0 MIWxQKWfnBMfCNQbYFG3MH RezWMnF2ksWZFrWR1tbzvm RRndNSpfFNKxzHX4PZOeoK DiM4CwMIDkUJvcXNCyvuz1 XqUwLi2kyINfkTafOQasKX HeYQSkJPkoFBMbOlXyZ72Y QR9WYMOAPWUvMMBAMOXWQ7 QQJpWQOFGORWMCMWDeF6vM X8KEDO2EMFkhoDBoBDIlQP 6yVJ8QRCVXUhXqOm7GVX6F TElHTkFOVCBDRUxMUywgQU UXBx1GPYMUMZ2JXJQzJZPq BTPjd58bRR79FEdrLEU2a7 xydGYxXHNzdGUxODAwMFxh bnNpXGRlZmxhbmcxMDMzXG W4qfCzKCEhGGnkEVVeCDpc Nj2fiMVldCxpXnStFWYhz5 omwpHEtiboyFi9j7dvZRLc YqW5lORfXXbeX7scmzCnwK YmTBPuUHv6eA04ZKDtfO5m eWMtPZsrdpMkOzQ9CScuAC AgPeX3IOYfiDBlJVMvN8el ZWQwXGdyZWVuMFxibHVlMC S7pIvwm7N2zDGguGHnxUsc SfVdCqQoGbIJm6WyRPq7yD jaZ5YtEVQzBvV1lIOrLSQu WTwtMZHwBIUlgmS7xN65QX owvoA1oOYae1Ktd03eg301 qW4qpNQcRAX7JDIiPWDuuD YqGLRmLPU6YTGfyNUhK2uk LQDlHA6ueglyFPdfULvkAJ GkoHR0KZCvlAAeM7KsMPUo XFatAUEgqhk4DcUuKi1zlI YsnHboDInek6yja7dydCIn Qxl0XRMuJxHaXruzUCkrm1 Ezh2whKWPfls9uFCJ7qJMg sWniw0A4vNXuZIHbsTXiPU SpZK0oxJNnZUHmfH0cwaug XHBnYnJkcmhlYWRccGdicm WfSl5auRpcDJM8IVruX7ej hA5kMzU5WKunD8zknT5vFP y9BSnqNPCnrQS0uhU8DLZq bQAsW9ZzqE3gZWNkNG7aip a5l5fiAIB1PEzlFMMwZzH9 lcE2NSUccBPyNJVfqJibVD get602IBN7ZqHuPRWix3Ox A8SesOitN31cxFhsY68uTP AclBnwoJ4zkOxkgW2qVpGt KaRkIKeaqMvjKP3fCTQxU2 ymaKSoVUWwEVLyS8vjNcKy cW2yaUtqKBgkhcFxKFBmDu b2NEKodEUyVLCuWpw8UXYu UOCnR02fkabdGUO5fL4ag4 kkr1QxWIcjKOS1YHBnt89a CQbgcrV8ONuuPa56JJcqYK C3RIhrqRMdkU0= COMMENT (test code = r7jghMGdQLCxeAN8WnSbAV 5437) Iwc5vda6GixYCerRYuIFsy gPNlgwEikn79eBF9aU75PL 8xHFDwDfF5EHXqprP3Ccy3 BJDvHWHbmDQfF670g9ufj2 jffvQsdWO1qXxcMBCdppte TpX0XZqdUZNztvnvUZe9MH wkOOAhmYB3YMBcjSMmW3Jn ACOaNG7wyvd3BCZ7SSyvOY IaFbM9YEWrsKCnIAZxhOld GJrxw832TEV4HaKnMBMesa YwuWfwnZ0dJfXoWZVMQASa mfO4gEI2KV3xAECpGIK2bz 9uaWMgbWVkaWNhbCByZWNv dqIrMSeuDGvmfjrpeK5pnp Xyw1piklUpCaNeCYY0IEjv dmVyIGxvYmUgbWFzcyBhbm BiUH3aON4wh8Pks1LxRgVe aJWoNLJniY1cXZ1lDKZkwq GjERRzoDYbg5ItxrHvQaRx EJF3JM1rlD0jEKPiiHWkrD P3oTWjlIC0ACerl3PtLwvf mEAuEZYzb87ng4IasCUvLY Lzr0Sbj2EmuiRrhkqpHMrg AU2zwVOoIhUSmHWmj5Zzyt RguIqpIRGgd0uvevAqMAOi ZWRseSBhdHlwaWNhbCBjZW htilI7aFEuNK49Y7coLTWu sKYbPpIvbdIhyCIsQPa7kL JlqEN3OLWawPNciaDcuu7d YXNpYSBhbmQgaGlnaCBudW HsNPQqJLRzGKM8fC0yxEBm bWljIHJhdGlvLCBhcnJhbm qcLQXvqkOgs1skn2g1RSGr bHVzdGVycyBhbmQgYWxzby WxpE0jjAnpLNcbiLVyt9Bc QoTLk01vUIShdVyoHKJcw6 trzV16elGpkGWomIbfw69q XzS7LYK9i8ckft6dI3Bsvs GdgQyqhZiwTMW3wR1kk2o0 EJWekcMlHPGuMDY2JWFaQN LqvFOwWOBwOXVsdE3nlHSg rhArPp9iWQ3fiPyfgnToC2 inUZWuSV3aN6XwP9iyz38z KLYvchV4fWQypcdbqVNhJ5 aoprpyVYqvi9R3pUrmJb0f tEVpRPDcfhUJyQLme8GvOV jcoeUlCNWdl8NfY5mtPVqs iEC3qA0sz0s3UCWvoN3saI XRLfAqTZJ9OwNjTFslPXD7 CPT Code(s) (test code r8tnmJVdTEJscMF3SxFrUT = 3357) Xnt8iyt8FzqVOwmLHeEChl hWMpknCqmk59iFX0eB23NK 3nEXApZuC1JJClkiG8Ozt2 OBOhFCBixYQlB084a7jcw3 qbngBwnUY8rAnyTENtqssy OgA4VYlwVNVgrqyrRGu6VZ ytNQWtiVG2QNKlzUEzK8Yo MFXfOU6ptqd3PCH8JQddMR FlAoC6NUJkqDBmBRGeyLjs ONeyb990RYC4NlIvLUDugz ZryDippD6bZxNxEUW9AHJi OFxwYXJ9 CLINICAL DATA (test b4yycKVsIISvnNE1YqGdSC code = 3355) Xgn2jun8EfzVIrqDNePWhi uYDduoOrnt02hFU1kZ30CX 9dITDtYsZ5QRZhefM8Ird9 HXCmWNGdnEKmQ392g7flb7 bjpwDobAP5TTNcQOFjK3Hs UX0rPWMlyCYdD33qfWClSG H5WIUwAFSoiFNwOYXgITW9 IRLmkGUrS4ojYHLxBJ8vde ycZOnrSQvrPJFwfEQ7VQTn nGJxA5OwJFAtAJiwNFYcfd d7NoHuGj5tpSLysNpjRIai YXJkXHBsYWluXGZzMjBcY2 WvVKncG46ybSb0WAIdeKGa qswqc9AsqWqvjO14zhVih0 QrQ2gfxNSqV7jpS3ZfS4ec e10wZgLblDkvbWgzhTFdsE lzAT35NKAkeiouv1H8FAcs jBbynQmxvv4hGFSiuGFzx1 VqHZN7yFP8sbJnBrByI34k cGFyfQ== SPECIMEN SOURCE (test k5uewZDqAEHqaME1ZoLuEO code = 3377) Bvq7ege8HnsPYufDJyVAcl zVAwatRqyg06rSD4hO10QG 3eFSUxMlL6QHAihgX7Aqn1 DBSsKKVxlVRkP717z6lsz5 injjXzyMD2eKujSIYqmzob RnY2ZNgsDVTumhybNSp2XT dsQCFbmHX8XPXslQZaD6Zu GVBgWU4phds3VYL9VClxSA GyAwB3FSOeaJWaBNAxnRgx ZCnlz988RCU7TpXxMUDyfc WozSzjwY5jIgPqKOKWA90Q T53cHatAVMJIZBSQBBIOKF lSQVRFIEZMVUlEXHBhcn0= GROSS DESCRIPTION (test t7flbCSgIEYwtKYdHaIfYH code = 3366) ZbJGAan3ewYWUdeHPnRcBm MzNcZnRuYmpcdWMxXGRlZm Vtd4hbh618kIHbh2ddFWYq DoL1rPNcAWXasRCtR276f3 wnf6ehjmXfuJI4PUDmLFS8 STsiprRvigU7GSbfyUJaHh R6DHkrviThNNnehxWswwEy Wxu8KPEwR448ATB9bJfew0 jsETI4GVRwUIQzLxQqYo2j sGBwE827RIIlBRFUDCHlxJ j9TUWnmqAkmuCmxYUVa002 J521s0rkMEIzcmWzcFwBth dcj4sdQ637TDSobYUxkpRe LjClSLLmyCQfbBO3ZYUbVU 5yfurxQaIoTW2qkevcSqJu VP4xqbp5JcQnAD1ntgetPf JhWFinJRKpwzzaIGVyk9At siurZK8fB2Wcl5S6nS4yjF AxRTXscCDjWiFcSTYxqp1d rVMgKLpka0MiILB7gvH5lR XjsLVdBLNfVC51Ayxia5Gk AwsmBDJ0MPZyygIpl9Thy2 dsFbAimbDuQ6kqX7EmVYOd FQDnYNYmQvEuloUlw8Ids5 GycSHjdFm2l1qyANZbJBXu rWfkg8xzRNL8WZFsN0B1rR Mzw3jsABzjVSRegRM0ayni QEerPJPlagJ7kquqSBsxVK GlxVZ6hdapQRpfUMTrXkZ6 rdshQOfoCMNpTQG1EQohn4 51RZM5VIxsDabrDQolRUIj bmNvbnRccGduZGVjXHBsYW luXHBsYWluXGYwXGZzMjRc jAgcdNofhH1fKlZfPbIrZP bcLV9hDGHtZ2iysTYyLTTa GLUmU4lmSdGrpT0npGyxFS jevrUhXURnX7AucnHvQUNe ME4wQTsidOcdoaItmMZxkj lacKPzXMCvZjv9ATWlidH0 RVAmSABqcfOiLFWbW8j8e5 WbxC8yNEfdDPY6 MICROSCOPIC DESCRIPTION j3xpyZJhLNZosQV6NkXaIK (test code = 3371) Tgl2lap3DpfVXynFWwLPlu yIHydzVkuh44xTK7xD90RZ 6vNIOxMoP2VGOwoeZ1Fqa2 QZRgFRWljPJdR595s1gdm1 acyzYjfBJ5aJnvJGOfauci YcZ6NKkjTXIirsfpOSb3GR dmZPJriUC4BPUvdMYoH1Dr REFjWG1odpn3AQO1TKkvHY TjQbX4SWLttQTeYKBeaBrn RLlyo941ZSV2OkYxPZVkeu WtdVsojD1zAbBrJOEMWKFk t8YxHEBgGAhpRVJ0 Gross assessment was [facility] performed at ([facility], = 2777) Department of Pathology, [address] [place] [phone], Technical component was [facility] performed at ([facility], = 2778) Department of Pathology, [address] [place] [phone], Professional component [facility] was performed at ([facility], code = 2779) Department of Pathology, [address] [place] [id number], [facility] Test Item Value Reference Range Interpretation Comments Case Report (test code Medical Cytology = 104) Report Case: [id number] Authorizing Provider: Oly Whiting Collected: 06/07/2021 11:18 AM MD Page Ordering Location: [address] Received: 06/09/2021 08:38 AM Service Pathologist: Sean Gibbs MD Specimen: Common Bile Duct, CBD aspirate DIAGNOSIS (test code = [id number] 3220) FuZzEwMzNcZnRuYmpcdWMx IHtccnRmMVxlcGljOTYwMV wcdqWbINUsbUHyP0Ovcrdi GKvqRK1vNQ1bsMewbGGaiR WiJSZdTmGwf2juw319iHIk t8spDMZVbhceoAv3cIjdJ1 1lj7J1ThzxT57cuDRfAWS2 UZGkPDUmzDSfNHXkTKJ8FK PdsECbP9xxYMEjWY9hlcix SItmWRgcEGGtqIW6AFYdsD UuS0WqDKMgHStqDJHtagn1 IwKnXw0fmGLjbYzdBFpoYC GaLKOvZNfyKFXhTmXwV55T GH4GOSEGZMIpHTVLRALPA9 AFZyHIUEVAORTYCLLxI0dD J7ZCRR6WRIaxuOYxPXXvZH 0xCX0TSMAEKpCpXo7YJS1C TElHTkFOVCBDRUxMUywgQU XZJn6ODDSFZA5MIWAmLDYl BOKmz49eSW75BTrlOHB5g0 xydGYxXHNzdGUxODAwMFxh bnNpXGRlZmxhbmcxMDMzXG D0spOnKWMiCCduQSFuLCoy Uz3snYTjzZhxDjZcPJCuc3 lmuhNKfrrwyRj5f2fnUCVk CdF1qXLmZKblK6gyncYdgF InDEBtOUc2kD65PNGxvQ7b iWJhOGrjfpGuTlD5KJwoBY NxMpR8SDXkbGSeBGEbV1lm ZWQwXGdyZWVuMFxibHVlMC M7ySxwj7W9wGQekQNvqKzp DnPuGbCcPuNZp0WaGYy7xE nuW7KuHLKqZtU8oHEtTPIp YSiySPNaAVYtgsC0pN61GY mvogR7lMQqc1Duz73zp616 qA2szYDhXEV2VFUeEZJcfH XsSVNgDLG8VTGfeXMfG3hk DTLiGV1lyckhNTksCLisZJ ZrjPE2GPEgdZKzO0NjJWAn LTfvCPXchxw6EgDiOo6rzV DtoVnjRMfrj6kht2kfnTCm Usd2LAWzMjYfAhagMOyhj7 Ngk3zuHVGzii1eJCV4sKGn lHpuc6T1rKAdJHYbbKHfLM FkSB0tbUKvJJAqjE6rxlga XHBnYnJkcmhlYWRccGdicm QyLx1xfItePIE9YCfpF5tx qT3eYoJ3QCjqW2gfgV0kIZ r5EEcdVDGchIB0mhR0LVGq cDTdV9MieS0wQPVaAE8gux n9p0sbQEF5IFwsIMYrItS1 yqL3TNKngVSeQEUlvIisRF xyl970TJP4DbLbAYPpt8Xi K1JhcZsbP17ljYgzJ39nEU WsbUvgyU9ceUjfnN1tMtGj YnWyMMwozGpkJC1zJFIsL4 tkvFPlRIVqFDZlE2yhSbAt cG3xhTpqEEevafVxWYXxGu d5RJVfpONzZTQkImo0AZOi EOZgS13rxbqtICL1dB4ja5 mku5KbNLrpJZK3BKGnn22g VMcecjU5YTivOu14VKgwYM S4NVibkPOirT4= COMMENT (test code = w8goqKXqEYTpdHW2LhGtBY 9201) Oam6ish2TncTGtvPNqWEji nQCcopWegz69sJK6aP46NV 1cJUFySsY0MANtqlE8Fqz6 SPYkHPNuyEPxM876u1jlx7 wdmyTdoBM7iBizHDLkkuch TyZ5VFbfQIOwzsjzPYs9LC xzIUJeiOW4ZKFfqRGeG7Co YEBpZZ7gmst1SDT6MFarFP VgIyC3MUHwhLYhFVTrhOoy ZQvfe847EKP0PnGsCGUqto KcjVsfiQ1wTzVrXCDSCNBt hdE1kVH5MZ2sTIDxKUI3xx 9uaWMgbWVkaWNhbCByZWNv pzUaGJbfTRxjakckjF2dgt Tgn5umlwArPxDrHGA8KJsv dmVyIGxvYmUgbWFzcyBhbm UkVJ0iTW6bc3Veb4UnSlJp jPNzMNAecQ2oWS8dEAMqhs IqZPUtmDSrw2AhljRbOwDp LYR4UK3pjM4qPDHxhDYkzR O7yEEnwFV4OCzba7VpCzzy zRSeWLDqc99jy5EuzYEnMB Ppj5Nwy0QvqzZxsmdkOAhb LU9jtUDuXyBHxJKnx7Feva YzrTqrNNPae1luukOzYQCw ZWRseSBhdHlwaWNhbCBjZW umjdI7vEOpCV23K1pdVJRy qKUuVrUzvxEjtGRsKNk6aX OgwJY7XIQypNVizdNfmx9h YXNpYSBhbmQgaGlnaCBudW VmLCYoQTSmRLU2bL0qrLQv bWljIHJhdGlvLCBhcnJhbm etMDOczfKhs8nyb2m8AKOq bHVzdGVycyBhbmQgYWxzby AriQ8dyDteNNtepZQbp0Dq BrNXt58eUZXteEbkRCFpi8 odaI57zjKcoXJzsVlrt65f RhJ6WNV2g7tzki5tJ2Yegz QwhBdiiIcjMUQ9oS4pm5k7 WAUetaAkCKDlVQB4CLBpXP XzsHNyOIQnOZSraE1tfBTe rbNlKe8rTU9mrThdxmVoV0 jcSKRkTA3fZ7TaN7cdb54y GHEmabV3xRNqsnpwzPJqR4 jhdmmgRQcel1U2gQviGh5h dVAkRGVawwNPmIKcn1YrAQ hdseWfLEBmn2BgQ7usAAlv kVM9uG7tv4s5FITxcL9xlB DVFtXrGCM7DyKxJQxjIUP4 CPT Code(s) (test code s0pktJLxPVRpgIC2TbToES = 3357) Nuy4iaj9XtmKGfuZKyZFjh yVBvosCkwc77iND0oF39WR 8wBPUtTtS5CMMxweC5Urt8 PUHgTPIaeFAoE177c9ysr6 rckuDtqVR8kBosJDFqqthp NmJ3BSpkQLVfhkcgTYd6FO peABIctDU6SOFtlSCpN0Te AWWhOP0vsnl9FKH7FQgwCY KvQfW2NJSjzZBnECXgkIiw GFnqi043YNZ3EiNsPFKvon TvsPuliN5gIlQtUDD3HYLu OFxwYXJ9 CLINICAL DATA (test q0wwtTCjEGWoeSC5HbQsWF code = 3359) Djz5lfc2BwlOVpiBCyNDsv iONajoNhjw02gHA6hU87FT 1rNMKcNaX7PMZmldR1Oam5 XBVpXBGyjNCjK080u2umc9 joczQwqAX8EJVgTLBsG7Yi SD3gUZBqeTCxH86xrLNkSB C3HXLwURYznWYdUHVmMLI1 NGHffHMrL1nsPVPaNC8bql joOGchMDukIXWheFS9XDOz eOEnI5FuYLPzTStwIAChyg h1VdZlNv7scDWxoVwpGMln YXJkXHBsYWluXGZzMjBcY2 ZsGWdoJ38aeNh3CXDxqGWn jwahd9PuqEdsuQ03ffMdk9 YdO7wjgSPjI8yyX0KjI0wg x29yVuZknHvqrZdqcEJuuF rrXY54EUSmccmwj8B6HPvy bVlchWsctg5bJKQokOBew7 DcWBL3iSN7fxZmCdPzN97j cGFyfQ== SPECIMEN SOURCE (test c9oejUZcHQWxvZF3AqRcMH code = 3377) Upg9gxp7BvqQZraJOaAIhe vJBjqcEint43rNZ6cA60WB 8eJZUzTaJ9AVPzebD4Dla5 AGRdCWUgvYFsQ520r2frp6 bubwZyeET6mHjwOGShqwyv EkR6OQorCRTokhviQJm4MX igERIzbFE5VKRumIRnW2Zh VWXdLG9gnih9EOA9UXoyAX JsTnN4UJZpfGQpZIQykOtf HSxat960ACC6VjZjRCJgis YpaBsaeP8lDrXfRHFDF79A E29sVuwTNPESZUZRXGQRXC lSQVRFIEZMVUlEXHBhcn0= GROSS DESCRIPTION (test r6tdpVReOSYmfITrHfJjTB code = 3366) JpKCVzx6bdYWYabDOuChHy MzNcZnRuYmpcdWMxXGRlZm Bsg3abb037qVBmv6epRCGj DtO9jHTkJMGquOJoR473e1 egq7xpawYfyIE7ATStVHI5 WJcodnOpckS7QNexfLNxHv A3WDvbjyHsSUbgwoUgiaJm Vfp4WOVuL220LTV0eTqfz5 mgJSS9OBRyXSWrRoEeFp7g vRXtS166ZYOnZAAGBHVpjT f2ZBZmhuDcmuDpgRUFu663 N410f2amTTUajlDidCfBaz uwm7tuN835KLZyuXWluhKi OyDmTJSoqBKgaKN2UQUqRD 9ytltkHnNdWN8xrcrqEpMb TH2trcw7LzAfNH0anihpIa WrXJxpVRBtyuhoREJkg7Wb ystfYT4hI4Gef9Q2pK3szN KeJNYzxLTuIhSwACCvgy2a wOCtPMsvk3DhEOA7spV2cA WlhSVxIMLgZY42Xrmai7An EjyrSGD9KRBkrmKcm8Gtg5 raIrQyrfVqV0kmC1VvMGBx PDCnCLHqYnKymkCmx7Fvu1 DriFKkpSb6l8doHHHnVUQh aFmqe7kmHAN2MKPsF6X0jU Hvz4xmESrmXWKmzBT4rypj YUvmPYOxagO5kitbZSvuNK HwkXD3ppfkEYijROSfYzS7 lmxsZZmuKUTmFQX4PKowu7 25JQW2LEecKzkcSYiyFICe bmNvbnRccGduZGVjXHBsYW luXHBsYWluXGYwXGZzMjRc uMplrOzrjB4dRkSyXpHtKM abCE9qQWRvK5dsmUVxYWLm MQVlG3nbTbAuxZ9jrOvmAY xvzzJpDUEgV0CdyjAsWALt IS7aQGwlcHdxtxFdvXLmma aqjJYfFNJmVot5RRMcbjL1 TLVuIYQzrzRoLWRwA2p7w9 BzgA2nHGziIQE5 MICROSCOPIC DESCRIPTION m8oipYXuBESzvMS1UuLqZY (test code = 3371) Ebi7dnf1FmqTUnzXOuPDnx iIZxriAicu11aQX9cQ74OC 7kAEMaMzH5ASShvaU8Egx0 OGLxMYElyBZxY232l9ozl2 bjcnQxxFL6lKejHPUpoeov DnG4CPkaCYBrdxgkVKw1NF ebFNAleGE7ZUMkbYQqG8Pd EJLxTU9ogga2GHV7FSicZW MjXcX2WYRjhIUyVOAvwPbr WQogm184UED2NfCmBVCzml UgqIqslY9ePxZdIDTOORHv v6LeGOGdAHkjPIN5 Gross assessment was [facility] performed at ([facility], = 1462) Department of Pathology, [address] [place] [id number], Technical component was [facility] performed at ([facility], = 2776) Department of Pathology, [address] [place] [phone], Professional component [facility] was performed at ([facility], code = 2779) Department of Pathology, [address] [place] [address], [place] [address], [facility] 13:43[facility]33 Test Item Value Reference Range Interpretation Comments Case Report (test code Medical Cytology = 104) Report Case: [id number] Authorizing Provider: Oly Whiting Collected: 06/07/2021 11:18 AM MD Page Ordering Location: [address] Received: 06/09/2021 08:38 AM Service Pathologist: Sean Gibbs MD Specimen: Common Bile Duct, CBD aspirate DIAGNOSIS (test code = [id number] 3220) FuZzEwMzNcZnRuYmpcdWMx IHtccnRmMVxlcGljOTYwMV calzZjZTGhpFGcD8Zzdiqz XOssJQ9lTC0olPxxjUKxxG SlZRByYsWql6cez722eLXj c2yvFAMNobykkYf7iGgdE9 2ul1R1UnxdL17faIXlOYF7 LTZvBGExdJYlSBKvFRQ1JK KxzYYtL1rwZBCpIU6ngdog PFujYJqaEGLwaWE2UEWziH AlT0IoXEDcRLmtTANviqs8 YjIpEg6ypSIodOnzMAviMT SlCFAqZTnxIMVzBaNxD41L TL5XYHXAXGObOYOYDHGCG4 YROyGXUFTTNBNBKSKpJ9bX L9HOAA1EZXespBWeCTObOO 2cKQ9LMZBKDjDkVc0YAG7S TElHTkFOVCBDRUxMUywgQU ZNWg1NJPOQDP2GUOHtQEJb GTCqh18yYA44EAhvNKY8p4 xydGYxXHNzdGUxODAwMFxh bnNpXGRlZmxhbmcxMDMzXG B8feVqHEXaYXnpTDOrKOpx Fm6xvTOxcBuqYlJoVKWsa6 eejkLHyuoksUd3e3ibHBVk WxQ4dSIbQFmiE0kytlClpR IoRABhBJv6pV12LDXivF5y nYCaBJqpoqReKbY7BUlrYK YeNpH6AXJmpPNdRNIkU7vr ZWQwXGdyZWVuMFxibHVlMC Q9gLgyu6G1eGCzyBMdpJfw HpLxXnGrZfIRd7JrRQz3pY miF6LhOJOeYcI9cNGyOASe MFlkEYKbMJIzttF3qX29UV slclE8vFDuv0Uzz69wp812 iZ2yhGYbPWN7UKFnOAUkkY FeFOFqJTN0AANygSWeH5wj FQWjLS1wrfrcRVivFTikSX CguIC0GOQzcOTrL3PgSGIa CJwkLBDyqtj0UmAmLk0qrW TtcGqpYSjwh6mwa0bidTAt Pup6NNWhXlEoFxewFKsxg0 Dnu0fgGYNneu1fOLD0cPWh iQezo8U2rGEdQLPsdMJvEX HsRK8guPNlJJWufN5mmrno XHBnYnJkcmhlYWRccGdicm NjQn7rnOejZQP2ANtoL5mb bS7zMnI6RSgrK7yqnR0wJF z2HHswCOMspFW2poG3HUSk gLBxI0TmfA6fVVBfFO7nhg g3w0tgZIU4BClzPAXvZkP7 lmV3EQZjxIXxAVMdbYxbLB bvx088LXM3BpGmSCCkv3Su U4HuvJonN59ywFolG98aWG DsrDbelM8hbVwisT2eTrTe SoKeTThcrOzgJA5nGTQeL4 sgaBLmEOAsAGLsN6deNrCo zE5rrIkaBExvxrRjBBBkMe s4MMQmhAAeSRGaYye3EIVh SISmD92ltyowRUG2nV2nn9 dnl4MiKXzhLSR6VGOso34y SYnbkmR5NAhjRb60YItkMM W4PZwiuZLykB0= COMMENT (test code = n4yaiLPqFHTvkQT0DmGhPS 9731) Ufr8nwz2MzlLMsrJOaXWjt wIXlrgDqfj50gZW6iU78TS 6oNPYtXmB5JYRqoiA8Msy8 FRZkIEMplQChV476y0bpm5 smheCyxLY0aGgfGGHtgjqy YpA9JAtnRHNprzgaLZr4CV sjMYEwmFD5WSPzkZQbZ9Af LJEqOI2oatu1XHQ6SOroKT UqOyI2AHXicWXjEXZcnFrf SMnun854CLF3RxEzDFMiyt MjsPvghJ5kKkRpVUFQCOOo tfU4dSD0EZ4hWNDdQWI5rq 9uaWMgbWVkaWNhbCByZWNv oxDeDYnaIFcqisasbZ7qux Toj3uzkdBwVzKjJSP0QMer dmVyIGxvYmUgbWFzcyBhbm JrRY7yMM5vw6Rnv1TyWzSs zCNsIMTnfT1nVI0gIRNclp CgPIXagIZim8HyagQhMdCo LIM4GR2yfQ1qHPXxvZPksZ L6vLXrdVJ9HLuay7UaQqpq yECwZSQwc78hm1MbpXSbYU Xut6Xgo8AhkeHyixadDJae NT0jqDTyLeBBzTXmg3Qttk RbdYcqPTFxm0kccqXpODUu ZWRseSBhdHlwaWNhbCBjZW jgmgF3zAYjXH72G6nxAJQa xFQhDxByzvBdrICuZGj0pE OazPS8OZYdhWXapuLeib6q YXNpYSBhbmQgaGlnaCBudW RxGWDdLXMhPKB1jP6vzGPg bWljIHJhdGlvLCBhcnJhbm blMXQjgxYqq3jzp1l5UKYy bHVzdGVycyBhbmQgYWxzby VsbQ1jeOfbEUdsgRUmq2Yi IbSIa62aHKXxkGdiDAWqc0 wthM37rrOqbHIzmTpel29e JfX8GEG6j4pcxh1kK3Bxid RzvTlmkEgtAXN2rU2kb2n0 WSDydxTaVZTvAOG1TMUlIL XklCZoIXFaZBKlgX1ixFPv swEoRd3gEQ4qeIwezoLmI6 ynDLFcPS8bV4FsG9vak81l RQYvgiA9kYIlbilcbPCxV9 fexclbAIgvz4G4dPnvLy5k rZEyJXZsddDZtZOzx2IaFC fhtsFcGHEiv1FxS6sdVIiw pZF5hH5ki3m2XQNvkP8rlP EEIjBtYEI1EhKdMHcbJJL1 CPT Code(s) (test code t5hnnVCaUMLjfMB2DpVqNY = 3357) Xby4yxi1EyxEBajFRoPPsh pJAdkrZxum89wES4rS19TU 6nNHTcWzH9DUBognV0Jqn7 ZJInGTFslKNkC819f2nfa3 ryfgOeyZJ1dJusCFQolvze IgY3QGuyYJFupkthGIt5FV txSHDnkKA1BXYyaDToA0Ge EEOqHI5fyqh2SWV9KVmuPC DmZwW6KDQfkBQzHIMijSfe AAaef418CZR7JyCdFDAucu PmnOjppU3pUmAzTAV0EOEy OFxwYXJ9 CLINICAL DATA (test p0yvfSRpABOepDL7WdAxFK code = 3355) Wie8huz4UldKPrzXJfRKxh nHTcuqQupf45vZH1eM11KS 0xGWQmIlX3NAJpeoW9Bcr4 LTLjZDYrhZZoM118t7pyy0 jchrSspHI8BGEnRVIpD2Gi DD9aKFVvrHLsZ82xuDEbBW P2YTRhLFHiqNPeISLoDWI4 UUVccADaZ1utGLPcME3czu vkAMbrZLyiFQManZX8KSCc oEPlH7ViZNQlKPvrQKGldt z3LkFcFd2xaCDfkGvaXVur YXJkXHBsYWluXGZzMjBcY2 RyONunU72xvPd1FWBfcCCw cakwc5EauNdseO05svRxd9 NsL9urtLRcZ3abR9JmQ8ma v77eIiFcvNwqdErnePFgsW cqFW73VAUebzooe2X3ZHdi rOudrVsjvg7lXVVibVKhe0 UsUCY5wPR8fiJeNfAbC04c cGFyfQ== SPECIMEN SOURCE (test s4awiSMkNWCngKJ4ZuRdCO code = 3373) Fib6mqj2KtaDKzzCOwYCzu hYEomtYhtg94zNM8oB06YY 5hKSKqQkF7LUDnlkY2Zgp7 HKWzVDFqrLXpE770d7igs9 yjeaJqqCS7fEtbCDEmgedq UkA1KIslSHHwudtsHQm8GK piBLFwvVC5QUOdeFMzA2Gm XWHdVG8vmjp4WAV0BPztDX OyMtA1UWWvkFEwKZKyoZkb DFicp732TSB2VqUiGXGxzf RsaOpkhV5eXbRnTCASX18X O50mQffYTRMNIRSYBKHSTC lSQVRFIEZMVUlEXHBhcn0= GROSS DESCRIPTION (test t0pdwJRpVKTooHGqJqCgJL code = 3366) SrBJOtr3bqXXAiwAFuSeHc MzNcZnRuYmpcdWMxXGRlZm Hyf6puz173mCXdp0ppCDPm LvA5hTWePVCnnWMjB700i4 ire5gypvRknYZ9TUBdOAJ4 EIxwlgAzagF7DLvldAEzKl S1IGotanRjVKsqcjVjeyRi Luq8XUBhP764FPE5qTxph0 inDND7WNYzYZNtTxDtYf0y rCQjZ503CBUsWJLSKHDqsF p0AXUyckXcxwRsdPXYm005 F906b7xwPKHhkmOvaBrNqu wqo3bvI520PMMizMXqaiKe EmCaZKKlsFIflBL9CJGrGI 2rswvdKwLaKC1oxboeKxSl GW9yrcc0FhTmEI2pgqhiOq SkVMdrPNEspujrVAInb2Ms xikmKK2tI2Foi8H1uS3ziN AfGYOhrETvByZzHYVzak2k kITzAPrie4NsIML0lhS7eO SalNWoTRFtBW21Klsrq1Ds GgibHOL7PPOxfgSwb4Uhn1 yyJwPwosKsE8rmP3EmLGIt EZXgELEdViGttqJgx7Vdq6 UpuFWqhVg3t3imGHRrTJWv mNnql5rjQCZ9XRBpX7B5uD Aoh3zbRPmlVAQisUX0hhiq GQkeVMZjhsH8ykyoBKlbRW QfcUA2bthnSAfwTJJkGmX6 afotGVzvHEUxOXY2MIiwk4 16IUR3QQipRajwJLthLMCp bmNvbnRccGduZGVjXHBsYW luXHBsYWluXGYwXGZzMjRc oMndnBghwS9oNtEaMtQhCR fuLN6mVJYxJ0hhfYImBOMn CQDiC3nqTgAreZ3crZmfQS hbloXbEVJcQ2EomxIjUSDz MJ2qIWdnxRnlmzIbfUXhbo kyvTVaZCUsXzm4PRHrfzF8 PWTbFTTrluFjWRMvP9y3e3 QnyX3tKQntISP8 MICROSCOPIC DESCRIPTION d0zsxDAlMTOgtAB2NnXfSZ (test code = 3371) Edt3klo6HizBGhjHIsOSta vMNvgmTksf06sGK0nO47FH 2fAOVcPqA0YRQvuwG0Loy2 GAKsTTNdoRMbY216o9diy9 uympBywQF6fXceVXSdcgfp YxA2OBrmBTBawiqsCRs7ZF bhQNHhuWE2FWFsdVVmR6Sf KXEyWG8xnlw4JZE6AHsmOZ BkUiT3EARiaREsJKYabRgc MNbat351OFO1XtKkDQAiuu CkqDcmfT5kOpSaJMKRULDc l2ZgKAFbSJgwOCB8 Gross assessment was [facility] performed at ([facility], = 2777) Department of Pathology, [address] [place] [address], Technical component was [facility] performed at ([facility], = 2778) Department of Pathology, [address] [place] [phone], Professional component [facility] was performed at ([facility], code = 2779) Department of Pathology, [address] [place], [place] [id number], [facility] Test Item Value Reference Range Interpretation Comments Case Report (test code Medical Cytology = 104) Report Case: [id number] Authorizing Provider: Oly Whiting Collected: 06/07/2021 11:18 AM MD Page Ordering Location: [address] Received: 06/09/2021 08:38 AM Service Pathologist: Sean Gibbs MD Specimen: Common Bile Duct, CBD aspirate DIAGNOSIS (test code = [id number] 3220) FuZzEwMzNcZnRuYmpcdWMx IHtccnRmMVxlcGljOTYwMV whjyOtLHOruXHxL1Omkpha MFodCC5tQR1icIjgpZWyyB ZoCQKvMgFqp8oai703jOHn o2gwYURTggbtqCh1lXnzI7 8ix0B5WtkrR99rbCIlTHJ2 KCGbFXAfxJMiTMBhMFB8AW HrrTZfX6irJIJlNY8uxlfm VQjxWOvnPQXewKW9RHBceM ViR7GyLUZzPSvbFOOihkz8 XwSkQr4mrSTeiBnaSArrAP LfRLRbNQghAGPnVbLqI87V YF8PLQYMXANtKQHGTBAPC0 MSBtKYWCRTDFSMHCHfU3uD K6WYXP7TIDyxxLVtOKQmSP 5pBY3UXAZXYtQkSm8NYX4L TElHTkFOVCBDRUxMUywgQU ZOCj5SWVDCXA1ZKCCbNJDv OKNqi67lAA33FWwaPCD2n0 xydGYxXHNzdGUxODAwMFxh bnNpXGRlZmxhbmcxMDMzXG U4coSpZIGzOZpcXYAaMZlr Jl4pwISpvZwnAmXqOMXqg0 fwdaNOgchdfOq7f3wyFREk TyW5cPTbNVymP7aqvkUltH XxXOKqQBq0wX13HVTuiG0a aGQyKGzqqsBuWiI8LOlvZU EuTbD8BXJqcROxUDFqD8wn ZWQwXGdyZWVuMFxibHVlMC S7xMfbu5M1pQXegIUcsGgy LwTtEcGrUbGOl2DxCAp5vR cbY8TsJAVaTeY2xPItKPNa KWmzASQhJUGvifT4oD13WQ baghQ9iTKpg5Pcn23dn204 wO7brQAwPCQ5XKLwWMFbzK CdLLTuBEE0FZAjyLUvT8cj FKHeUF5fjtvcIWddYSgjBF QtfHO1FXTnpWIhQ3AuLOWn KQdcFOMdbcr8DfWoLy2keR FexEzmIOggc3tve9cudBMb Lwn8SBBoQtXgTpbkZMpjf4 Ekq9wyJQInkn7uGXN9yRJs aAvfv4G9bZVyLVPvkRZuOS AqDN2vjXFyGDUqaU0tfcok XHBnYnJkcmhlYWRccGdicm FrBv2alVqfNNQ1WCiqQ1qh hT1wYhM2TWpuY1ranX1iQL g7ILynSPUfgBI0pfT0CECy mPPwV7YvyH1uPQQoHO7rgs o2z9ikOXJ4VTibBJKjQrW5 dlQ0WQJnkHQfFBCwoXohRO lyn170YOB7YmVwRAMka5Jr G7XiiGcrP07qwSssF85fSZ AboHtswJ6dtSwjuM7nZaAi KnWeILmguTqsZQ1kIRGmP7 uerRXhGRFfNBUmF3eqMjKk mD9htGwcLSnlltAmYGBzIh c9PLRluHUfMPDwHhj4KABe HKAxZ36fnxnaCRP0cQ1vz6 ite7LdLVsaMKO2LBByq21m SDsyglV7YZvySx83VWycZD G0HXkxcETonT1= COMMENT (test code = m7foqCUpLCRukIM5VlUnBG 9880) Cvl1fwi2AajRRwnPKvGIkn sCYeuoSjks04qOA4zD64QY 5mTUMqWcY7RRRgkaM8Xfs7 ORPnUSGtkGScF855u4hxp2 kflaSahFZ2uMgaMOHuqeit WwR4CCbdWRVtawkyGKr8DO odXUPdbHQ6BYDesNDhZ9Lh BJPlUA4hutk2ZWE0RGekTQ BiVtJ2SBRakASwEPPabCmb IBfbe445CTK8PlZsRKRphk UslNngjN3fSpNpPVDRLUTw tyU5wUI6AI4dDYPyJFK4qs 9uaWMgbWVkaWNhbCByZWNv kvLsUUxsKAdifwsjgN3uee Nou5pryoJxSpMoZGB3AZfo dmVyIGxvYmUgbWFzcyBhbm YvGU0lKZ5hp6Jcw6AsRgHv mFHtPKPqcQ3iLS1wKJZazf IdSCOzePOdj5LajwJcUyJb CAX7UD6odJ6sFIHsgDRotD G1pYZwaZZ4JSlqa9XrOjtj tGBsKMMbn26va7RgcQXgRZ Oci7Pzp4RhhrKiwomaNHjd VD5cuAClHqDYaCRdj7Fjno LlwHmkGZXof3cifkEaNZEl ZWRseSBhdHlwaWNhbCBjZW cxmyZ5bNEhZC27O3jxGZVs rGYfOmKzthWtpKKuTJu1sL LvjED2FEIvbMLiieQrsv6j YXNpYSBhbmQgaGlnaCBudW HnLYRmVWCzOJN0dL5qiNJi bWljIHJhdGlvLCBhcnJhbm rjJOHbshCtx6yff1c2INHp bHVzdGVycyBhbmQgYWxzby LvwI1fdRovEHafuQYvn6Bj UkTJu27dIODouWmhEOGjv7 kdtZ69kyYpbAVcvNlnw38f AeG4KEX1n3rrhb7bU9Sesm AdiNkjvAziCIU8tV5az1b6 DTGrtnAxEGFyMAG6KNIcSU KpvUVaMQSwDXBmnP3viNLi kwLqJy7bRJ2arFlvjuJqW1 ehFHCnBC8vG9HgQ4pbn17p EFMimxR2rNJxgxlgcZWmO9 tbuzvwZMgbv3N5dBqiIp9i kBWeRXGopjZSoGKlt0TnUC jtlaHfFQTqp2OkQ4eeEMlt uYY3vT5fo1w8SAZnvJ0egJ YYHfDhMAH3XkWeOClgGYW6 CPT Code(s) (test code i0bupPSqWYRqvMY0KdXhBP = 3357) Brg8snc0DooXLxnZMwAYqc nYPelfVktq55lZJ6xR26FO 7uQQQiJkX6KURohoJ2Mok4 EJSaGPTjkTTiE877y2abx2 euktZmdUI7kAziFWSmetft SsL4JBjnPPTndackXFz6BL akXRPrbUM3IFInxSMcA8Yw PLVsRR0lqeq0PQZ3PWrrZN CoDfR3SFPeaVGiVRUftBfk GLtfd686KMC8ZnUxBRBacl EapDeggI1dZyWwDAX1LWJq OFxwYXJ9 CLINICAL DATA (test s7qyzJLaYCOxaMB4FzBsGM code = 3355) Oor3hvp7LitVLxjJNiAXtc dPAllaSazx12yPO1uG93SG 6oXKAyWjT5OJManpR4Kzf4 ATImLGQhoZHpO965k1hiy6 obytTklRT1ZRGsBENaN9Bl EE7hAJGkiNSaE39omQAfAH E8ZGHbEWRksTKwFMEoMCD0 UHEwvDZzC4jkGHFgSK7xuj ioFQxhGRisXLBsfMJ9LLEz pVBhA4EjSGAxQUoiLFRadu j1CyKxNx8sfXRzrYfaCIkg YXJkXHBsYWluXGZzMjBcY2 MmHEtwC58auBz4ZLPghIHo gnvqa6PmcCoeyA90enIlu5 UkK0edvNFjQ4uyE9ZuL0cf m46bPoSqbOeneJrdkYUvfI ukEY57RSSqapsta8K2QQpq rBnvyGihtf6mEWVpjGByz4 ZpTKB4cAL1ggCaJpCpN72f cGFyfQ== SPECIMEN SOURCE (test t3khnCTkSFPmlNU0BjRrXS code = 3377) Afo8oxw5JtmRWnjLSoKWsd rPMhcnSzev98qKT3kW11HP 8mGQOyRiC0GDAqrcW5Axb7 MCVdRVHlqZDhH474m5wik2 ihhyXloLU3sAyxELEvqhxk KcV6AAnrGEPwqlvuVQf2CO jyAYIgmAK9JSWjgDBuZ7Az UDJcKE3oetr7MTU3OEfoWK RtMaJ3MOXwiIHxZRXisLud TOoiq343LRF1DaEqJFVmts CxiWyjdW5fJoMeAEFDZ99T C62cOiaATRDLZFJDWQMQFY lSQVRFIEZMVUlEXHBhcn0= GROSS DESCRIPTION (test u3qajDNmJRJrcHPzEkWhFO code = 3366) CjRXTri7ulQKMghZYpXfAh MzNcZnRuYmpcdWMxXGRlZm Ghl9mjn282hFZws7qwVFVc OfF5fTRxYYVomKBjO945x3 aof1eqkeLqoZJ2DIYdKHY7 FMsyswYoxnC5UJbsjTPwWc P9REofygXzZNccqdJyejSw Hbm2XWEsR216PSZ4mAfxs1 ooYRK3SPNyTSCmKzTbFz5s vGCoJ975RBWbTJEOXSGxxP i7ACSjpvRaxsMypSFYg554 B669a8kvJHGepbUdgFiNpr vfp2vdU691NYAhyNEujrGp UgEeXOEuhWGbbNF2DYBhGN 0emixtQmRkSG9bimptSnHp LT4dnto6JxDmNT1tosaiOe SdDMsuQETqaqiiZORci2Xe msthBS8sL7Aie2M0tY2eiR LqTOCscZPbQnTxSYUeha9k vZXmEFscv6PuFWW1hoH1cU BvoHYyKBFlPD76Ycdaj4Ap ZtrcRPP6MYQzhfXtk8Mzi9 rrMsEwzfCmX5piR9EwJCXg GPAxGMNmFiDpsvPqg7Sjq4 VuhSNdwZz3z2auYPZfCCGx pJppi9nvEIK5YZLrS8B6tL Yhs1prUXchNVAhgZF8fwil ODcpKZFfcpZ4tjqwKLylPN BscQE5ecvtEQvkEDFcUxZ3 kdqxMLpvWMQvPFC1RBtej4 96UKZ4PGnxLorlHRtwSRQc bmNvbnRccGduZGVjXHBsYW luXHBsYWluXGYwXGZzMjRc jItlqEfyrE6vUuKlWrPqLI dmUY6lIMKtX1vyxTUdNBJh GITzX5dcWyIneG1alXwlVA fcqbCwDTUuG5YpljYmNUYb NC8pPYekuBdrgfBubUKhon xkaGHzPFZvCxw2YHUwqvH5 ATWqAKFqktRqWAGlH9n4c1 QqhE0xIBhzDQA0 MICROSCOPIC DESCRIPTION r6rkaSUdUHJydYM7NgKxTZ (test code = 3371) Cxw8bvm9EtsUXgyYKiDSwq iVZdnpShgd86mTQ0yC72UZ 5yEKCuAeD7YUGqfzR3Yop0 VESrZZFhwLHxM241x6vpf3 rtdwKjnZZ4aYaiOLJuorbv GiS0UJbkLGThturvRFo4JZ gpVVGdaNT9FLCetCCeW6Yc VKLkXA3mhic1QXA3GSvkSN OmYqV1EQIgeIObGCYjxUjq IDhlf206FRT3RjVhMIGbed ByxHzpfA1eDuKqWYQUGQZu v8HjCLHrYXmkMFD6 Gross assessment was [facility] performed at ([facility], = 2777) Department of Pathology, [address] [place] [address], Technical component was [facility]. [facility] performed at ([facility], = 5408) Department of Pathology, [address] [place] [address], Professional component [facility]. [facility] was performed at ([facility], code = 2779) Department of Pathology, [address] [place] [address], [facility]33 Test Item Value Reference Range Interpretation Comments Case Report (test code Medical Cytology = 104) Report Case: [id number] Authorizing Provider: Oly Whiting Collected: 06/07/2021 11:18 AM MD Page Ordering Location: [address] Received: 06/09/2021 08:38 AM Service Pathologist: Sean Gibbs MD Specimen: Common Bile Duct, CBD aspirate DIAGNOSIS (test code = [id number] 3220) FuZzEwMzNcZnRuYmpcdWMx IHtccnRmMVxlcGljOTYwMV prpbDeIPOdgLHvA0Utpegr GYwqCL2cIQ6pmIxjaZYppD ScKDGiCwDsy1ulm383zXDj i1qwYJOZyvrbxNz7uJktB8 9ep0J0FunjM83gbYJbYME6 UZCdGEBnkWKbNHBsESK3LH GooVUkY1olMAElZB0jbcji BAofHUvfATChoXT2CMBpyH FhQ9EvXADjFEjqDRHmoqg1 OnJjEp4dcQLmzImhXZpaYU YwDUDwEIhoMNDdAiRlA17L EM9TUQCRZKTkXIYLAKWEA3 IPHeVLNQICWMIKZTMdC4sV D7HFLK4UMRtzuWWgZNDzXZ 1kIL8FPYWDEfTfCf1WSO1N TElHTkFOVCBDRUxMUywgQU UYGg3EIRGRFZ4BVPEgKQRe PZBap85tBQ31GWpbWWO4a5 xydGYxXHNzdGUxODAwMFxh bnNpXGRlZmxhbmcxMDMzXG M9svUiHOKtIPrrLUSuAPro Cy8gySLsfLnpDeDcIZLwk3 fvmeJOuhfptHg3b4ouEFKp ZaQ9rDXlPFqhJ7gmdzKxmT VzABAeTCf2kJ08OVQgjF9m fFPuEApwskEqQlA1FHtaZK MxVuR3WACpnQRzWIPxB9zq ZWQwXGdyZWVuMFxibHVlMC A3jSoek1J7yRBmnINprHfa SxSfJwAmAnAYr6HaLCt2cT ojR9PaKEQaWnT3jPMkHVTb OYptQOMdKXOcijM2uD28ID jspdD3iWNnd2Wct25cg136 tE2yiWMuGJD2NLUnVCLedE KiNBQbHVM6MVGffUUvK8lr XSOdHJ0yghxpMUmgVLdaRV NugHS1WJLujISxK9GhUPYz HHlcQJDwbim0GzKxPc1mdW MzuTrhLNbuo4bcv9fwsBXk Ijy9XYSeXuBqWdpaMTerj0 Qwl8foIJEfkb2dNZY7lOQz sDisu8S0hJBnSQRaqSLsKS BtMO8ufKPrRCKlkP0fzfdk XHBnYnJkcmhlYWRccGdicm UdVh7rcIzdFYP7PAexT2fw zI1hZmN1YZumB8rkuP6eAN e1OCdlZRFqnPU4roI3JGYq nCJpN0UyfZ3kDANtGW3wit h7c8luBSP7EDgbKIAhTgA9 aeQ9RZClrDUhWZTuzSqmMT tog428TSN6YtHzIDVfe0Tm E9VllVwvI05vpTgsQ14oGU MbfPedsB4yfSjdlJ6pXvBt MuDiJTqaoNkgVP9tYZYmN6 oqtFHlRCZaHVPiJ3wkDzYc bK6teAczGJqbabDgLZYzYg q6UPLrrNSdLDRhScq1RYLl MGGaN75noixdTVT4gU3vr3 fsc9WoOYchLUK6UXQbg53f ZJkcwjX6JSwlGv23OTekIB C1FZjypEZdkX2= COMMENT (test code = b1ltmEBaIKTzcEU4TkNuWO 1440) Tgc2cyg7SicLJooVLuTTgk bMJcbrClzn93mPX1pE47LB 0uPLKrFdG2GEGpcjR0Hwa4 IUHgBVHfiWPeT494p3tmn4 icspDqwEI0xTgcZEHsbefm DmO4FEmsKOZypojsBLn2PI gkDERdvWF2BPXvcOHyO6Ba XKPxJQ7ufyv7UZM7HYlpZU OhZoM0OFLpuPStUJBvkQuc ZJkty234ZTX2FuPiNJGqtu XkfQteuU7fAaSkJFCNTTNa jiT2aCC5KB2wIJKqCTF4ph 9uaWMgbWVkaWNhbCByZWNv teGbRFigSGstofgriB4kvn Sxu6msfwBfZmVhIQL9NLpr dmVyIGxvYmUgbWFzcyBhbm AtKV2tDQ7qq8Cxu1UiQkWq nHXfJOOnoR9kWJ5hFTHqbv YxXXZwfWVej0OvacPuCcLd ENU3BP0qmE3oCTZcsFRxcB H2zGQnaCW9HNlef3GpHbkx jNZmTKEsp98ag7DtoDGwKF Xec8Vsk3MawkOkkgwuIYcd AO6osEKbXpVPtKGyc6Rcyt VqfGzfVBJbm4rmigRoTKIw ZWRseSBhdHlwaWNhbCBjZW rlgcA6dHYaXW80C2sfUBZe wNXcXoSoabNnuAMcSRk1rL StqEV9AGDrvFUffpMnqr9l YXNpYSBhbmQgaGlnaCBudW KpHRFjMYVtQXY1aP9atECl bWljIHJhdGlvLCBhcnJhbm erHREkxxWzw1ppv9k8SFPv bHVzdGVycyBhbmQgYWxzby QirK9dcPuoDTlubEZvv9Bo LmYNp81vPCYebPhwCUCcs0 ylvU60qpFvlMTqjUmbp84n YjS6ITB5f3umkm6vO1Tovb QkfKypsJduDLP9kU0jv7l5 FITitmSmPHYnRSJ8NJEuVI TijGGkBVKxJISwoK9nfQAp tbOrRz8gGR3ceSkeeoMeA6 txRKDtEN3qE7OfR8cox08e VIWmuhB1aEKqhorsmFTkK2 vderlnHYpki6A5yUkgPw2i hQPzDICftlNCdBJef0FgYQ thflLuWEMjy5WpR2rkCLcz sYE2cL7ux8z9JWYiuF4drJ YHJgVoVFC7YaBbQTloBRO4 CPT Code(s) (test code u4augWNxHXZcnMH8UlBsQU = 3357) Dgw6tab5BuxOYkoXGgJBbj yBPtjkKjsm26wBV6fI22GN 7yHSZqOyR9ETDaloF5Pfv3 SEAaIWHqsTKkM615l9tgk9 nwrgVrcFL5dAkmRSLyahlp NcH7PVrbNBUphejvSEs2BE olSMIgnCR8AMDyaBIwR1Rc KGWjJT2ekha9ROB1XRctEN BdAxB5LZItsYDmAOExqYir TDilc365ZAZ8KaNlEDQxjc KidFadlV7iOvCaUNK9BXFt OFxwYXJ9 CLINICAL DATA (test z0xnlNQwYIQxoDW3FkFnQF code = 335) Opm7kqh2XvxOLopCAdENfy gBJbdlBfve68gDN6zR49BX 7vUJGsOmS9IOFojvM9Ipp1 HDSaMSTjsSMuW838s5yyz6 alqnAgbGB6VWIiOFTxS2Jw ML4cZNGzpVRkS67fmFTtXP W0MMUwCAJimPInNFKmFZI1 TDFxmEYkU4zaFISsJP7jrx ddLAweMOyyEGJmyAL7XSTg xLSyV1RcSJPkDNwwIWGrza d7IeQsYn3ivWZfzBkgQVdz YXJkXHBsYWluXGZzMjBcY2 MoLOqtB24piYc8AZKldLFc lypbc0DgoYehsD27idRec6 IoL4fxkLVbT8auX1GeB6po q74oOoAxzLqkuKxxyRRavZ xpBY71PPScgbdwk0B4GTvk oMpmaJguxu6vYQDnrBPmj3 CdMPW6yWP5umDeVaMvT20z cGFyfQ== SPECIMEN SOURCE (test s6pztRKcCMBftZC2FpVuOU code = 3377) Szf2vtx1NacBCscFYmIVzo pWCgdcUrxc77wKG6tW98RD 4dJKQqXmI2IYBiweP0Wsn0 UEKgJUHfpAZhB744o8thi4 emcxMxrYJ0wOznUFBlcacx GbB9MUnbPHUmcvibSQc8UY kwZDHwoQG4LZDnrYEiH6Xa CZUcTQ3ypxh6EML3SQpfSC UsQbO7QQZpaZRkUFXowJok GTqlz781WPI9HzLtPGMynh GqmRqstZ2kIzQmTKAKO05D U36sWtpROMDFHJQJETFJXA lSQVRFIEZMVUlEXHBhcn0= GROSS DESCRIPTION (test v1sudAVyLDVumROlQkUfSO code = 3366) ZtCSTll7bdASWmsZUmWeIp MzNcZnRuYmpcdWMxXGRlZm Dxr5zmq183gQNmi4ogGAYi KhA8sIQcWBBmxBIhZ439q2 iny9vdleAgwZC9WQNkRAS1 CNtmjgVumvJ1INzugOViPy J3LJbwlrGrREzpprXvtfYh Ztg7WGIbM630ABA7gQnuw6 xxTEN4PNDrBOAhXdPfIv4q cEZuS948CLUyJBBUOLIlzP b1GUIvnjFgwbUyxOHTj665 M802k1qsTIUxpgXsuAoAxh nsg8skO907FTOwqTHsyqRd FfPaAHMqjNUmxRJ4WLBuIG 5wujdfEzNlEC4likkiXpPd RC4ieyz8HuRnLW7vumszOa YgWYivLMHntgobHDUlq8Yz twriEJ0xF2Xfb9U9pK6qmI JzMRPynYVrWsTbZRHakm1b pCIhTKwod1HvEWV9ppW8uE QjyADqXJMpVT13Dwhip7Zp FjziVYR6QYJyypYdm5Arn6 faZkJxpfXpO7aeV7RlRNHk UOMiUEObTuFsrpXzn6Pzl8 ExeJVbzOu4x1xhWCYbLNSy jZwrv6zbSIF7TCCyK7Z9zY Tdb1rfPNbpPTUlgKO1gqkq NRuyXWVbyqQ8vipsDFszZG UteWI9qcatLWjkHXTwArE0 eafcCNkxVVKzMUU8BGjpb4 39WUO0NHqsLhqwEUtjYSQs bmNvbnRccGduZGVjXHBsYW luXHBsYWluXGYwXGZzMjRc xFhusDpmnW6oSpDsKvFpMV chJF7pJCQaP7sqyTQnGJUa VPKtG3crCuJksP6ewEscWB orrbNpDNOsM6VneqBbJCQx EX7yVJyxnNkomfZxiIQzlh znqBYpYPRmHtt0IANlurP0 HPRoBOSvqzSjQGIbQ2i3g8 LqjF2aEGdzKLA1 MICROSCOPIC DESCRIPTION p4hqqUHuHBLkoTY0IaDdOX (test code = 3371) Lsd8cbd9QdfBKztANxEAyq bYVmwzUabp30wVR1jQ72QT 8vLPBoTfW7PGUhyyV7Jsq5 BACuCJBqdVGoO807g2lid9 dxkvDgkRO4gSzoXPIugnnm LcN1CLgjUSDqxmxoXQg2OA gqZXDbfPW5OWEukAKdP4Rf NDGoAE3xhre6AFB9ZVbbPU HkOxD4TWFoqYDrFBZzvMis WJgjl774BAS1BnViZWXaua KoqEufqV7gMqPhBVVEEWOs r0SaXVEwOYgkYEU1 Gross assessment was [facility] performed at (test code [facility], = 2777) Department of Pathology, [address] [place] [address] [phone], Technical component was [facility] performed at ([facility], = 2778) Department of Pathology, [address] [place] [phone], Professional component [facility] was performed at ([facility], code = 2779) Department of Pathology, [address] [place] [address], [facility]33 Test Item Value Reference Range Interpretation Comments Case Report (test code Medical Cytology = 104) Report Case: [id number] Authorizing Provider: Oly Whiting Collected: 06/07/2021 11:18 AM MD Page Ordering Location: [address] Received: 06/09/2021 08:38 AM Service Pathologist: Sean Gibbs MD Specimen: Common Bile Duct, CBD aspirate DIAGNOSIS (test code = [id number] 3220) FuZzEwMzNcZnRuYmpcdWMx IHtccnRmMVxlcGljOTYwMV wwvgIeEOQysAZzJ2Bfyzyk VWzgEZ8pAL4drNajfYYncF GxTCXuRjBse4okk375lAGv u5juAHUTsasikHf0aLwqQ5 0fw6X2XaarY53fcRXaFPH5 BEXqYYIriFZrOFHwITU1YK IogFIdH6waSVRuYS8brikq ADjeVIzwESNhvZE3QUDxaE ItR5VjVYQnIZhpZXYqnid5 DkJlXk7nuOUttVhxFOebNO SdCWKmZBbfUSBsFzMiP99A IU3AOZXCZATlSUCWEWOEI9 HYZyCSKVFUMQMVYKMbX5mG U2TOYD7IUAzcmZDpKQKmZR 3iSB5VXVMCXaTpOe9ELW9T TElHTkFOVCBDRUxMUywgQU DJXk0EAZFDTH6AJPLeUFXo KARvn94dUV70SKqyEWI6h5 xydGYxXHNzdGUxODAwMFxh bnNpXGRlZmxhbmcxMDMzXG O6gkFpZQGsMEvtGOYgCWpu Qr7dhLVteOvbYzCpGTSer0 qqwfLKtwevlGn4x0ztNNVm FqS2tVWfARkyS0cnlvLsoR WaVMMyATe3vJ72IRShaJ4n rKVcGEejfzGfVoG2ZQaePV HrUzO1AXSmaQIrVHDgI8bc ZWQwXGdyZWVuMFxibHVlMC R1sJroe9R6vHCjfAZgoKwz EaHtTgAlPvTKb5OwQAw2oN erT4KvEFNyPrL5fPAzNSPl ZWddWCOtZIQwhtJ1aV58LL epgxS6sOBbn2Nrp36qy342 yI5khIVdNAQ8EHLiBYMmxI FrSVQmKQX3MVDufZXdH1pa DAMrHX6leosxZHszTSwsCN HbeAF6NDJhgXQkZ6JoEAZs TTuxGRPxjqa3YzGaMx3iuP OtjYhxYZxyw2ndn3syuXAq Tdu2QMWvGeJfAuwyEVyhj2 Dyg9jpQHIjrg7sSHN1rJLx gSkbl7U3gYVeFUBmhIXaLF GrLC6arJBpBRVyhE4xkyax XHBnYnJkcmhlYWRccGdicm QaCy9rsDimKWN9XAupD4ko gG2gYzC7ECqoC8lsdV7jXL u1CEycZKQbzNC6irN6WNIa iWVgU0AveV6wVWVcEL1jjz i7i4ryGAE9RVbeHZHyRbO7 fnY6SFMefEMcBBFfnQqeJP ofs154OVM1BjOpNGBxq7Nh C2JdgCufR56weZbcN39dEK KveLfotA9ldDciiS3hSgEa LsGsAMugbPogRE3eNCViN6 ionQDlXPAzTVWpP2rgUrNm oS4opRodCDztsdDbEKQcAt k9ZOCmqYEoVMTcNke2CRYm CKIoM55rokrkJZW9jA4yx3 xyh4CcYXcyQZB2WEVix87n EAcgnbW6LVrwLz66XQcfZV I2MElmeIEnfA2= COMMENT (test code = h4wvhGVzBWJbtHD8EiKvII 6440) Eqh2eau2NhdQKrtNHaCAuj yDNazbBhxo68uVK3nR71EA 1eHZQsKgV6BHFlozY3Mme9 OUPzTLNpnLHiA246i4fle4 ftkxZrrAR4fJjuRJIjenjq IgX9IJoxZCWejmobKOy2PH clUUZmxKP6CJPqwOGlJ6Hc KFXtBN5ftsi5IQR0FCsnYN TzTaV8QYDpbUJhCULuwSoa EMdfo419EON1ObEwFXUclx HohXhilD5fGqXiGFLYBXLt qmI5rPY8AB8lPGHqWEQ3av 9uaWMgbWVkaWNhbCByZWNv tcSiOWppQAxpqjiyoA2sju Iob2dbchEzMlGuASP5BFku dmVyIGxvYmUgbWFzcyBhbm NbGV4jAW0gu5Pmw8EsIhOr xLLlCUQnzP8qAE7mCQIljv OsWWHloKIud4IcahYhMuXv NJM4CT9asN3eEJMshJTwwY A5tWQudTV2OFwhr2KlCybb mAVvUUMsg56ed5VvbNVkNG Rwv1Hov6FxkjMldmdeNHoo ZG2bbAPxMvHKpPZan6Chlf IufYlmHYIzi2shpmWjLPAy ZWRseSBhdHlwaWNhbCBjZW gslaZ2xKZtDQ37O4cpESQr pIStXxTvixJklMQaRTw3dJ ZuvCA0NXPduCTilsVdux2i YXNpYSBhbmQgaGlnaCBudW LkMDExOEGmXXD6iQ5jqNDq bWljIHJhdGlvLCBhcnJhbm rwTZTexvKtr9pxx1w3WMGw bHVzdGVycyBhbmQgYWxzby NgzI6rbBlsFRcynLFqf4Ll UsCGd02bTFWypGciPHBlo9 bozI96unPzdTSyqCedw05c IfS4GJH1u3lgdb6kO9Doqe YzqCppvHedTDB8cV7qr7o7 GCOiksAvZCHjJFT7JBRdZA LgvTWqFCHiFZFuzE2avNNk qlTqSs3cMH6uqFceicJfN3 xzUFRuPY6cW4AsZ9xda93j XKUczmZ2wEGyarclyCSfU6 bdordaNGonl7V4kUkvDm3k wSMxZQDkweCGlLLxq3GzVW dblwGtTBZfy0HtR2geDXyu nNE7iU6lc0g8CARnkR5uwR KADvZoEKV0LnYiFKweRFN8 CPT Code(s) (test code u8hfpNSyPGWktZP2WdUfMU = 1910) Qln4rbv2YhaWVetLFwRFuy bAHfhuRxae32eWS7wH79FD 8cSLGyMgW7VBFeakW7Bez0 BZWeNULuyDMkA569x8wxn4 gyynLdlJF9jLqrVUCzemvx OuA2XZxkQFFrjezsRZt8IZ ikPRVvzGA2HFAwzMBvZ4Si LFHvYZ8gejj8LBB7TInrYV HlMeW9YZZrgXVnUSOssYvg NSylz956HLJ5PmCyHFUcar UfcVfcgR8rFpSwPWL8OQEe OFxwYXJ9 CLINICAL DATA (test i0xtjNKgAXCwlQQ9AtVtVY code = 3355) Nah8oix3QiuUCghEFqNRfq oASvdzQxfp32rAB2jW59DV 1xHZGjLmO0AZYraaH7Hkk3 TUPdUUWnhSAkU227x7xta9 gxbrXxgQH4YCOjCJKxF2Kz XM6yTCErsZWzA68oxAVkMM I7YMIyRUDjaEZuWTXrYZC6 EIPuxFZnC0vxRKZgXH3jiz zmXFngOSnlUSYblKM5FAZk mRAoQ4MnVKOeNDrpNSMmyu m6EiLcOm9ngZPxpJjbYMrc YXJkXHBsYWluXGZzMjBcY2 WxBQdnT95amBa0PMZvqMHf shzut6TvwFhwiH71cnRim1 NkK3nmxWQpM2vdB1ZoS2zg j92eLnIbnHnsmJplyTDarH ljWS44ZHXhhhckm7S8ENhg qHbdbCbhxo5aINDgbVLrs5 JaHDT7oGR6euFvFqGyF33d cGFyfQ== SPECIMEN SOURCE (test c4lcyIAuPADhcFZ0XqXeJM code = 3377) Qpu6umz6XqhGGrrOFyXLwi qYOpecNfhp22hOH0qH54FJ 9xDGPzMdQ2ZMSjwqP1Cuz8 WEXhYORpaJQrI827d5vvi1 yyjwFqbJL4pJfjMAMtxnkt MrT9UXzgHBSywrhfQDh2MI jvMJErjLN4RZGslLQmN0Na YDRdUG1gcdx8WQD9VBwqPC XdTjT8BWJtoEZiFDLrvOqw ELpby541CVP9GbMoOMMyng NkeZtacL1sXfLmLZAGY54S N10nGjzYVIPYAGQBANGBEM lSQVRFIEZMVUlEXHBhcn0= GROSS DESCRIPTION (test z2gcmZJeZAJcsALeBnPtEG code = 3366) LyVVTjj1cpDADiqACsOxJs MzNcZnRuYmpcdWMxXGRlZm Beb4bqo450gDKrl6kgCPTn HsC3nRQkRQFtkDJoV080r7 sqt5chkdEpfUX2VLTeMLY7 UCtfghRhbzX5TRcuzCIxWn W6SPpvuaOmSWcmydAxfpUs Esj1LEGpE640ZHZ5qGysn7 pyNVH1YTRgQISjFsDhKo7p yXOsR345BROhNPYPXLFafP n3GPEtgoIlftVzcTDAo588 Z837n4cdAAQetjSnhYhLid vmw5noY488HQHseGJwswQt FbDeIGSirBNpgXG1TJBoUQ 2brrgoTmAdVN1knbeaZqLi XI8tpqm7AkWqUJ7pfofwTj NcFMklFNIansuyCLXih3Cv rsaeFW0nU0Mbb3G7xP2kfY NmGKMheDAxWaFmSBOjov6e hWXcQJmib2TkPXW2ivK7nL UjyDXrJNOhCJ77Bhmve2Ro VtagPKQ3BIImlvAyq0Vay9 bjCmApjnYtM8yaU0VrMIQc AWKrFTAcDzJzcqZjk5Ypo2 CblRPwwLl7m4uwNSNkNEEt uPzsz2paKRP9EKTtS5T5mV Sgp6bkPTixOTZhkJV9vyrv WHmiYDKeclZ5lfjqBVsvOA TtrUY7btkaTOspVMQaZpW3 dymoQVjvTIUeGJC7FFtou2 55AMS3TVtlCqghQCdpMABe bmNvbnRccGduZGVjXHBsYW luXHBsYWluXGYwXGZzMjRc yKehaOhgcK9pRpNyHdQuSX kcKA2jGQWwV1jzyERyRQXq MOIqJ3ohUxEfrE3prMqtAT fqcxYhQCLuG3MvfpTpEIWr IO7pQGaahZmtqwQslJJimm yqfKQsOTKvGup7AUVlppD7 MNHgBHHnelCtVXNuV8e3p2 VxwC6kGHotOYU1 MICROSCOPIC DESCRIPTION m4rjuRXjDXKdwKE6YgFqYQ (test code = 3371) Zez2cxn3GboQIwgUHvMQuz fILqkjSmlb60eJH6wM62WL 3uWYOvYqV3TUAqixD2Uot4 ANRmLHShfHIsI984c0ars8 rgxlEzgXV6wCizIIVykqae QpN4KQlzZLBqkdcbETo7SL wuBFUulVK6LJGncBSwY4Vi DYMlWT5pyne3GXA9MIpeQA XkEyW5NFKtkDIxOUPbyMcc EUnyl394IUX6KqBdDHCwrg MlzOaefL5kDgHwWXFRWRUo e9JnBSBtPArnVDQ5 Gross assessment was [facility] performed at ([facility], = 2777) Department of Pathology, [address] [place] [phone], Technical component was [facility] performed at ([facility], = 2778) Department of Pathology, [address] [place] [phone], Professional component [facility] was performed at ([facility], code = 2779) Department of Pathology, [address] [place] [address], [facility] 13:43:33Medical Cytology Report Case: [id number] Authorizing Provider: Oly Whiting Collected: 06/07 11:18 AM MD Page Ordering Location: [address] Received: 06/09/2021 08:38 AM Service Pathologist: Sean Gibbs MD Specimen: Common Bile Duct, CBD aspirate COMMON BILE DUCT ASPIRATE FLUID (CYTOSPINS): - POSITIVE FOR MALIGNANT CELLS, ADENOCARCINOMA (see comment) Signing Pathologist Direct Phone Line: [phone] signed by Sean Gibbs MD on 06/10/2021 [...] the cytology can be best classified as positive for malignancy, adenocarcinoma, in the right clinical setting.Please also see surgical pathology report [id number]. 315747 cm liver mass, suspicious for cholangiocarcinoma; mildly prominent periportal lymph nodes measure up to 1.2 cmCOMMON BILE DUCT ASPIRATE FLUIDReceived 33 ml yellow cytorich red fixative; prepared 4 cytospins Performed. [facility], Department of Pathology, [address] [place] [address], [facility], [facility],[address] [place] [address], [facility], [facility], [address] [place] [address], NI, CHEST, WITH [id number] 12:51:00Unlisted Reason for Exam - Click Yes and Enter Reason Below->No [facility] : 1970 Sex: FFINAL REPORT CT of [...] a 5.8 x 8.5 cm mass is see n in the segment 2, segment 3, segment 4 and segment 8 of the liver. Prominent lymph nodes are seen in the periportal and gastrohepatic ligament measuring up to 1.1 x 1.9 cm. Impression: 1. Unremarkable CT of the chest.2. Liver mass suggestive of primary or secondary hepatic neoplasm.3. Adenopathy in the upper abdomen. Signed: Armando Peacock Verified Date/Time: 06/10/2021 12:51:13 Reading Location: [facility] B1 C013Y CT Body Reading Room POCT-GLUCOSE [id number] 08:46:12 Test Item Value Reference Range Interpretation Comments POC-GLUCOSE METER 96 mg/dL 70-110 : TESTED A T [facility] 6720 (BEAKER) (test code = KENYA QUINONES [place], 1538) 520[address]: Drop Hammer Operator Helper/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 ID = [id number] for EMMIE MOREIRA COMPREHENSIVE METABOLIC [id number] 04:45:59 Test Item Value Reference Range Interpretation [...] S NOT APPLICABLE FOR DIALYSIS PATIEN TS. Drop Hammer Operator Helper ID - SARAH MSpecimen moderately ictericCBC W/PLT COUNT & AUTO [id number] 04:23:27 Test Item Value Reference Range Interpretation [...] PERCENT (BEAKER) (test code = 2801) POCT-GLUCOSE [id number] 23:17:20 Test Item Value Reference Range Interpretation Comments POC-GLUCOSE METER 122 mg/dL 70-110 H : TESTED A T [facility] 6720 (BEAKER) (test code = [facility], 1538) 53475: Drop Hammer Operator Helper/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 ID = [id number] for Nayeli Tesfaye POCT-GLUCOSE [id number] 17:17:57 Test Item Value Reference Range Interpretation Comments POC-GLUCOSE METER 146 mg/dL 70-110 H : TESTED A T [facility] 6720 (BEAKER) (test code = [facility], 1538) 25987: Drop Hammer Operator Helper/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 ID = [id number] for EMMIE JOHNSON POCT-GLUCOSE [id number] 11:59:25 Test Item Value Reference Range Interpretation Comments POC-GLUCOSE METER 132 mg/dL 70-110 H : TESTED A T [facility] 6720 (BEAKER) (test code = [facility], 1538) 27839: Drop Hammer Operator Helper/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 ID = [id number] for EMMIE JOHNSON COMPREHENSIVE METABOLIC [id number] 10:34:04 Test Item Value Reference Range Interpretation [...] S NOT APPLICABLE FOR DIALYSIS PATIEN TS. Drop Hammer Operator Helper ID - SATISH FSpecimen michael [id number] 10:02:31 Test Item Value Reference Range Interpretation Comments Cytology (test code = See Separate Report 2629) [facility]2021-12-20 10:02:31 Test Item Value Reference Range Interpretation Comments Cytology (test code = See Separate Report 2629) [facility]2021-12-20 10:02:31 Test Item Value Reference Range Interpretation Comments Cytology (test code = See Separate Report 2629) [facility]2021-12-20 10:02:31 Test Item Value Reference Range Interpretation Comments Cytology (test code = See Separate Report 2629) [facility] [id number] 10:02:31 Test Item Value Reference Range Interpretation Comments Cytology (test code = See Separate Report 2629) [facility]2021-12-20 10:02:31 Test Item Value Reference Range Interpretation Comments Cytology (test code = See Separate Report 2629) [facility]2021-12-20 10:02:31 Test Item Value Reference Range Interpretation Comments Cytology (test code = See Separate Report 2629) [facility] [id number] 10:02:31 Test Item Value Reference Range Interpretation Comments CYTOLOGY RESULT POINTER See Separate Report (AKER) (test code = 2629) CBC W/PLT COUNT & AUTO [id number] 09:51:49 Test Item Value Reference Range Interpretation Comments WHITE BLOOD CELL COUNT (AKER) 9.5 K/ L 3.5-10.5 (test code = [...] PERCENT (BEAKER) (test code = 2801) POCT-GLUCOSE [id number] 07:50:45 Test Item Value Reference Range Interpretation Comments POC-GLUCOSE METER 102 mg/dL 70-110 : TESTED A T [facility] 6720 (BEAKER) (test code = [facility], 1538) 74516: Drop Hammer Operator Helper/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 ID = [id number] for EMMIE JOHNSON POCT-GLUCOSE [id number] 21:32:56 Test Item Value Reference Range Interpretation Comments POC-GLUCOSE METER 146 mg/dL 70-110 H : TESTED A T [facility] 6720 (BEAKER) (test code = [facility], 1538) 48361: Drop Hammer Operator Helper/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 ID = [id number] for SHYLA KRAUS POCT-GLUCOSE [id number] 17:37:43 Test Item Value Reference Range Interpretation Comments POC-GLUCOSE METER 124 mg/dL 70-110 H : TESTED A T [facility] 6720 (BEAKER) (test code = [facility], 1538) 74903: Drop Hammer Operator Helper/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 ID = [id number] for MIHIR DIAZ Liver-Kidney Microsome [id number] 15:39:08 Test Item Value Reference Range Interpretation Comments LKM-1 Antibody <20.0 See Note: U Reference Ran ge:<=20.0 (IgG) (test LKLRWYLM27.1-24 .9 code = EQUIVOCAL>=25.0 POSITIVE ) Anti-liver/kidn ey microsomal anti bodies (Anti-LKM-1) we re previously test edby indirect immunofluoresce nce (IF) using rodent liver/kidney substrate.Ident ification of a specific a ntibody target as cytoc hrome P450 IID6 has l edto the current recombi nant based JENNIFER. An tibodies to this cytochr ome arepresent in approximately 7 0% of patients with a utoimmune hepatitis type 2.This antibody is als o present in approximatel y 10% of patients with h epatitisC infection. SOPHIA (test code Performing Lab EZ = SOPHIA) [facility] [address] [place] [address] Edgard Jay MD, PhD, MICHEAL [facility] CenterL[facility]some [id number] 15:39:08 Test Item Value Reference Range Interpretation Comments LKM-1 Antibody <20.0 See Note: U Reference Ran ge:<=20.0 (IgG) (test TMCBAERR76.1-24 .9 code = EQUIVOCAL>=25.0 POSITIVE ) Anti-liver/kidn ey microsomal anti bodies (Anti-LKM-1) we re previously test edby indirect immunofluoresce nce (IF) using rodent liver/kidney substrate.Ident ification of a specific a ntibody target as cytoc hrome P450 IID6 has l edto the current recombi nant based JENNIFER. An tibodies to this cytochr ome arepresent in approximately 7 0% of patients with a utoimmune hepatitis type 2.This antibody is als o present in approximatel y 10% of patients with h epatitisC infection. SOPHIA (test code Performing Lab EZ = SOPHIA) [facility] [address] [address] Edgard Jay MD, PhD, MICHEAL [facility] CenterK[facility] Microsome [id number] 15:39:08 Test Item Value Reference Range Interpretation Comments LKM-1 Antibody <20.0 See Note: U Reference Ran ge:<=20.0 (IgG) (test MQJPXYER73.1-24 .9 code = EQUIVOCAL>=25.0 POSITIVE ) Anti-liver/kidn ey microsomal anti bodies (Anti-LKM-1) we re previously test edby indirect immunofluoresce nce (IF) using rodent liver/kidney substrate.Ident ification of a specific a ntibody target as cytoc hrome P450 IID6 has l edto the current recombi nant based JENNIFER. An tibodies to this cytochr ome arepresent in approximately 7 0% of patients with a utoimmune hepatitis type 2.This antibody is als o present in approximatel y 10% of patients with h epatitisC infection. SOPHIA (test code Performing Lab EZ = SOPHIA) [facility] [address] [place] [address] Edgard Jay MD, PhD, MICHEAL [facility] CenterK[facility] Microsome [id number] 15:39:08 Test Item Value Reference Range Interpretation Comments LKM-1 Antibody <20.0 See Note: U Reference Ran ge:<=20.0 (IgG) (test MTZYQJUA42.1-24 .9 code = EQUIVOCAL>=25.0 POSITIVE ) Anti-liver/kidn ey microsomal anti bodies (Anti-LKM-1) we re previously test edby indirect immunofluoresce nce (IF) using rodent liver/kidney substrate.Ident ification of a specific a ntibody target as cytoc hrome P450 IID6 has l edto the current recombi nant based JENNIFER. An tibodies to this cytochr ome arepresent in approximately 7 0% of patients with a utoimmune hepatitis type 2.This antibody is als o present in approximatel y 10% of patients with h epatitisC infection. SOPHIA (test code Performing Lab EZ = SOPHIA) [facility] [address] [address] Edgard Jay MD, PhD, [facility] CaliforniaKIDNEY MICROSOME [id number] 15:39:08 Test Item Value Reference Range Interpretation Comments LKM-1 Antibody <20.0 See Note: U Reference Ran ge:<=20.0 (IgG) (test PJICPDOU86.1-24 .9 code = EQUIVOCAL>=25.0 POSITIVE ) Anti-liver/kidn ey microsomal anti bodies (Anti-LKM-1) we re previously test edby indirect immunofluoresce nce (IF) using rodent liver/kidney substrate.Ident ification of a specific a ntibody target as cytoc hrome P450 IID6 has l edto the current recombi nant based JENNIFER. An tibodies to this cytochr ome arepresent in approximately 7 0% of patients with a utoimmune hepatitis type 2.This antibody is als o present in approximatel y 10% of patients with h epatitisC infection. SOPHIA (test code Performing Lab EZ = SOPHIA) [facility] [address] [place] [address] Edgard Jay MD, PhD, MICHEAL [facility] Center[facility] [id number] 15:39:08 Test Item Value Reference Range Interpretation Comments LKM-1 Antibody <20.0 See Note: U Reference Ran ge:<=20.0 (IgG) (test JMWTCTEN22.1-24 .9 code = EQUIVOCAL>=25.0 POSITIVE ) Anti-liver/kidn ey microsomal anti bodies (Anti-LKM-1) we re previously test edby indirect immunofluoresce nce (IF) using rodent liver/kidney substrate.Ident ification of a specific a ntibody target as cytoc hrome P450 IID6 has l edto the current recombi nant based JENNIFER. An tibodies to this cytochr ome arepresent in approximately 7 0% of patients with a utoimmune hepatitis type 2.This antibody is als o present in approximatel y 10% of patients with h epatitisC infection. SOPHIA (test code Performing Lab EZ = SOPHIA) [facility] [address] Edgard Jay MD, PhD, MICHEAL [facility] CenterL[facility]-Kidney Microsome [id number] 15:39:08 Test Item Value Reference Range Interpretation Comments LKM-1 Antibody <20.0 See Note: U Reference Ran ge:<=20.0 (IgG) (test QITKAAZG07.1-24 .9 code = EQUIVOCAL>=25.0 POSITIVE ) Anti-liver/kidn ey microsomal anti bodies (Anti-LKM-1) we re previously test edby indirect immunofluoresce nce (IF) using rodent liver/kidney substrate.Ident ification of a specific a ntibody target as cytoc hrome P450 IID6 has l edto the current recombi nant based JENNIFER. An tibodies to this cytochr ome arepresent in approximately 7 0% of patients with a utoimmune hepatitis type 2.This antibody is als o present in approximatel y 10% of patients with h epatitisC infection. SOPHIA (test code Performing Lab EZ = SOPHIA) [facility] [place] [address] [place] [address] Edgard Jay MD, PhD, MICHEAL [facility] CenterPOCT-GLUCOSE [id number] 11:30:55 Test Item Value Reference Range Interpretation Comments POC-GLUCOSE METER 158 mg/dL 70-110 H : TESTED A T [facility] 6720 (BEAKER) (test code = K[place], 1538) 097[address]: Drop Hammer Operator Helper/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 ID = [id number] for MIHIR DIAZ COMPREHENSIVE METABOLIC [id number] 10:54:30 Test Item Value Reference Range Interpretation [...] S NOT APPLICABLE FOR DIALYSIS PATIEN TS. Drop Hammer Operator Helper ID - PIAYA LSpecimen moderately ictericCBC W/PLT COUNT & AUTO [id number] 10:19:43 Test Item Value Reference Range Interpretation [...] code = 416) BASOPHILS ABSOLUTE COUNT (BEAKER) 0.03 K/ L 0.01-0.08 (test code = 417) IMMATURE GRANULOCYTES-RELATIVE 0 % 0-1 PERCENT (BEAKER) (test code = 2801) POCT-GLUCOSE [id number] 07:55:36 Test Item Value Reference Range Interpretation Comments POC-GLUCOSE METER 88 mg/dL 70-110 : TESTED A T [facility] 6720 (BEAKER) (test code = KENYA Mcmullen [place], 1538) [address]: Drop Hammer Operator Helper/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 ID = [id number] for KIANNA BAH POCT-GLUCOSE [id number] 21:23:21 Test Item Value Reference Range Interpretation Comments POC-GLUCOSE METER 193 mg/dL 70-110 H : TESTED A T [facility] 6720 (BEAKER) (test code = KENYA Mcmullen [facility], 1538) [address]: Drop Hammer Operator Helper/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 ID = [id number] for DUSTIN KRAUSLO Mitochondrial Ab [id number] 18:27:09 Test Item Value Reference Range Interpretation Comments Anti-Mitochond Abs NEGATIVE NEGATIVE (test code = 2587381) SOPHIA (test code = Performing Lab EZ [facility] SOPHIA) [facility] [address] [place] [address] Edgard Jay MD, PhD, MICHEAL [facility] CenterMitochondrial Ab [id number] 18:27:09 Test Item Value Reference Range Interpretation Comments Mitochondrial Ab TNP See_Comment Test Not Titer (test code = Performed . 20191210) Screening test Negative or Not Detected. Titer notperformed. [Automated message] The system which generated this result transmitted reference range : <1:20. The reference range was not used to interpret this result as normal/abnormal . SOPHIA (test code = Performing Lab EZ SOPHIA) [facility] [address] [place] [address] Edgard Jay MD, PhD, MICHEAL [facility] CenterMitochondrial Ab [id number] 18:27:09 Test Item Value Reference Range Interpretation Comments Anti-Mitochond Abs NEGATIVE NEGATIVE (test code = 9509516) SOPHIA (test code = Performing Lab E[facility] SOPHIA) [facility] [place] [address] [place] [address] Edgard Jay MD, PhD, MICHEAL [facility] CenterMitochondrial Ab [id number] 18:27:09 Test Item Value Reference Range Interpretation Comments Mitochondrial Ab TNP See_Comment Test Not Titer (test code = Performed . 20191210) Screening test Negative or Not Detected. Titer notperformed. [Automated message] The system which generated this result transmitted reference range : <1:20. The reference range was not used to interpret this result as normal/abnormal . SOPHIA (test code = Performing Lab EZ SOPHIA) [facility] [address] [place] [address] Edgard Jay MD, PhD, [facility] [id number] 18:27:09 Test Item Value Reference Range Interpretation Comments Anti-Mitochond Abs NEGATIVE NEGATIVE (test code = 1242587) SOPHIA (test code = Performing Lab E[facility] SOPHIA) [facility] [place] [address] [place] [address] Edgard Jay MD, PhD, [facility] [id number] 18:27:09 Test Item Value Reference Range Interpretation Comments Mitochondrial Ab TNP See_Comment Test Not Titer (test code = Performed . 20191210) Screening test Negative or Not Detected. Titer notperformed. [Automated message] The system which generated this result transmitted reference range : <1:20. The reference range was not used to interpret this result as normal/abnormal . SOPHIA (test code = Performing Lab EZ SOPHIA) [facility] [address] [place] [address] Edgard Jay MD, PhD, [facility] [id number] 18:27:09 Test Item Value Reference Range Interpretation Comments Anti-Mitochond Abs NEGATIVE NEGATIVE (test code = 5139005) SOPHIA (test code = Performing Lab E[facility] SOPHIA) [facility] [place] [address] [place] [address] Edgard Jay MD, PhD, [facility]AL[facility] CenterMitochondrial Ab [id number] 18:27:09 Test Item Value Reference Range Interpretation Comments Mitochondrial Ab TNP See_Comment Test Not Titer (test code = Performed . 20191210) Screening test Negative or Not Detected. Titer notperformed. [Automated message] The system which generated this result transmitted reference range : <1:20. The reference range was not used to interpret this result as normal/abnormal . SOPHIA (test code = Performing Lab EZ SOPHIA) [facility] [address] [place] [address] Edgard Jay MD, PhD, [facility]AL[facility] CenterMitochondrial Ab [id number] 18:27:09 Test Item Value Reference Range Interpretation Comments Anti-Mitochond Abs NEGATIVE NEGATIVE (test code = 6114538) SOPHIA (test code = Performing Lab [facility] SOPHIA) [facility] [address] [place] [address] Edgard Jay MD, PhD, [facility]AL[facility] CenterMitochondrial Ab [id number] 18:27:09 Test Item Value Reference Range Interpretation Comments Mitochondrial Ab TNP See_Comment Test Not Titer (test code = Performed . 20191210) Screening test Negative or Not Detected. Titer notperformed. [Automated message] The system which generated this result transmitted reference range : <1:20. The reference range was not used to interpret this result as normal/abnormal . SOPHIA (test code = Performing Lab EZ SOPHIA) [facility] [address] [place] [address] Edgard Jay MD, PhD, [facility]AL[facility] CenterMitochondrial Ab [id number] 18:27:09 Test Item Value Reference Range Interpretation Comments Anti-Mitochond Abs NEGATIVE NEGATIVE (test code = 5304624) SOPHIA (test code = Performing Lab [facility] SOPHIA) [facility] [address] [place] [address] Edgard Jay MD, PhD, [facility]ALSt[facility] CenterMitochondrial Ab [id number] 18:27:09 Test Item Value Reference Range Interpretation Comments Mitochondrial Ab TNP See_Comment Test Not Titer (test code = Performed . 20191210) Screening test Negative or Not Detected. Titer notperformed. [Automated message] The system which generated this result transmitted reference range : <1:20. The reference range was not used to interpret this result as normal/abnormal . SOPHIA (test code = Performing Lab EZ SOPHIA) [facility] [place] [address] [place] [address] Edgard Jay MD, PhD, [facility]AL[facility] CenterMitochondrial Ab [id number] 18:27:09 Test Item Value Reference Range Interpretation Comments Anti-Mitochond Abs NEGATIVE NEGATIVE (test code = 4396790) SOPHIA (test code = Performing Lab E[facility] SOPHIA) [facility] [address] [place] [address] Edgard Jay MD, PhD, MICHEAL [facility] CenterMitochondrial Ab [id number] 18:27:09 Test Item Value Reference Range Interpretation Comments Mitochondrial Ab TNP See_Comment Test Not Titer (test code = Performed . 6651199) Screening test Negative or Not Detected. Titer notperformed. [Automated message] The system which generated this result transmitted reference range : <1:20. The reference range was not used to interpret this result as normal/abnormal . SOPHIA (test code = Performing Lab EZ SOPHIA) [facility] [address] [place] [address] Edgard Jay MD, PhD, MICHEAL [facility] CenterPOCT-GLUCOSE [id number] 17:25:28 Test Item Value Reference Range Interpretation Comments POC-GLUCOSE METER 181 mg/dL 70-110 H : TESTED A T [facility] 6720 (BEAKER) (test code = [facility], 1538) [address]: Drop Hammer Operator Helper/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 ID = [id number] for MIHIR DIAZ POCT-GLUCOSE [id number] 12:59:42 Test Item Value Reference Range Interpretation Comments POC-GLUCOSE METER 143 mg/dL 70-110 H : TESTED A T [facility] 6720 (BEAKER) (test code = [facility], 1538) 20179: Drop Hammer Operator Helper/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 ID = [id number] for MIHIR DIAZ POCT-GLUCOSE [id number] 11:43:35 Test Item Value Reference Range Interpretation Comments POC-GLUCOSE METER 201 mg/dL 70-110 H : TESTED A T [facility] 6720 (BEAKER) (test code [facility], = 1538) [address]: 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 No interpretation was requested. Referto the operative report for findings. Refer to PACS for patient radiation dose information.POCT-GLUCOSE [id number] 07:40:21 Test Item Value Reference Range Interpretation Comments POC-GLUCOSE METER 94 mg/dL 70-110 : TESTED A T [facility] 6720 (ROBYN) (test code = KENYA QUINONES [place], 1538) [address]: Drop Hammer Operator Helper/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 ID = [id number] for KIANNA BAH Actin (Smooth Muscle) Antibody, [id number] 03:49:29 Test Item Value Reference Range Interpretation Comments Anti-Smooth <20 See Note: U Reference Range :<20 Muscle Ab NEGATIVE> OR = 20 (test code = POSITIVE Antibo dies [id number]) recognizing act in are the main compon entof smooth muscle antibodies asso ciated withautoimmune liver disease. Actin antibodies aref ound in approximatel y 75% of patients withautoimmune hepatitis (AIH) type 1, approximatel y65% of patients wit h autoimmune cholangitis,lashawn roxima tely 30% of pat ients with primary biliarycirrhosi s, and approximately 2 % of healthy people. High values are clos ethel correlated with AIH type 1. SOPHIA (test code Performing Lab EZ = SOPHIA) [facility] [address] [place] [address] Edgard Jay MD, PhD, MICHEAL [facility] CenterActin (Smooth Muscle) Antibody, [id number] 03:49:29 Test Item Value Reference Range Interpretation Comments Anti-Smooth <20 See Note: U Reference Range :<20 Muscle Ab NEGATIVE> OR = 20 (test code = POSITIVE Antibo dies [id number]) recognizing act in are the main compon entof smooth muscle antibodies asso ciated withautoimmune liver disease. Actin antibodies aref ound in approximatel y 75% of patients withautoimmune hepatitis (AIH) type 1, approximatel y65% of patients wit h autoimmune cholangitis,lashawn roxima tely 30% of pat ients with primary biliarycirrhosi s, and approximately 2 % of healthy people. High values are clos ethel correlated with AIH type 1. SOPHIA (test code Performing Lab EZ = SOPHIA) [facility] [employer] [place] [address] [place] [address] Edagrd Jay MD, PhD, [facility] CenterActin (Smooth Muscle) Antibody, [id number] 03:49:29 Test Item Value Reference Range Interpretation Comments Anti-Smooth <20 See Note: U Reference Range :<20 Muscle Ab NEGATIVE> OR = 20 (test code = POSITIVE Antibo dies [id number]) recognizing act in are the main compon entof smooth muscle antibodies asso ciated withautoimmune liver disease. Actin antibodies aref ound in approximatel y 75% of patients withautoimmune hepatitis (AIH) type 1, approximatel y65% of patients wit h autoimmune cholangitis,lashawn roxima tely 30% of pat ients with primary biliarycirrhosi s, and approximately 2 % of healthy people. High values are clos ethel correlated with AIH type 1. SOPHIA (test code Performing Lab EZ = SOPHIA) [facility] [address] [place] [address] Edgard Jay MD, PhD, [facility] CenterAct[facility] (Smooth Muscle) Antibody, [id number] 03:49:29 Test Item Value Reference Range Interpretation Comments Anti-Smooth <20 See Note: U Reference Range :<20 Muscle Ab NEGATIVE> OR = 20 (test code = POSITIVE Antibo dies [id number]) recognizing act in are the main compon entof smooth muscle antibodies asso ciated withautoimmune liver disease. Actin antibodies aref ound in approximatel y 75% of patients withautoimmune hepatitis (AIH) type 1, approximatel y65% of patients wit h autoimmune cholangitis,lashawn roxima tely 30% of pat ients with primary biliarycirrhosi s, and approximately 2 % of healthy people. High values are clos ethel correlated with AIH type 1. SOPHIA (test code Performing Lab EZ = SOPHIA) [facility] [place] [address] [place] [address] Edgard Jay MD, PhD, [facility] (Smooth Muscle) Antibody, [id number] 03:49:29 Test Item Value Reference Range Interpretation Comments Anti-Smooth <20 See Note: U Reference Range :<20 Muscle Ab NEGATIVE> OR = 20 (test code = POSITIVE Antibo dies [id number]) recognizing act in are the main compon entof smooth muscle antibodies asso ciated withautoimmune liver disease. Actin antibodies aref ound in approximatel y 75% of patients withautoimmune hepatitis (AIH) type 1, approximatel y65% of patients wit h autoimmune cholangitis,lashawn roxima tely 30% of pat ients with primary biliarycirrhosi s, and approximately 2 % of healthy people. High values are clos ethel correlated with AIH type 1. SOPHIA (test code Performing Lab EZ = SOPHIA) [facility] [place] [address] [place] [address] Edgard Jay MD, PhD, [facility] (Smooth Muscle) Antibody, [id number] 03:49:29 Test Item Value Reference Range Interpretation Comments Anti-Smooth <20 See Note: U Reference Range :<20 Muscle Ab NEGATIVE> OR = 20 (test code = POSITIVE Antibo dies [id number]) recognizing act in are the main compon entof smooth muscle antibodies asso ciated withautoimmune liver disease. Actin antibodies aref ound in approximatel y 75% of patients withautoimmune hepatitis (AIH) type 1, approximatel y65% of patients wit h autoimmune cholangitis,lashawn roxima tely 30% of pat ients with primary biliarycirrhosi s, and approximately 2 % of healthy people. High values are clos ethel correlated with AIH type 1. SOPHIA (test code Performing Lab EZ = SOPHIA) [facility] [employer] [place] [address] [place] [address] Edgard Jay MD, PhD, MICHEAL [facility] Center[facility] (Smooth Muscle) Antibody, [id number] 03:49:29 Test Item Value Reference Range Interpretation Comments Anti-Smooth <20 See Note: U Reference Range :<20 Muscle Ab NEGATIVE> OR = 20 (test code = POSITIVE Antibo dies ) recognizing act in are the main compon entof smooth muscle antibodies asso ciated withautoimmune liver disease. Actin antibodies aref ound in approximatel y 75% of patients withautoimmune hepatitis (AIH) type 1, approximatel y65% of patients wit h autoimmune cholangitis,lashawn roxima tely 30% of pat ients with primary biliarycirrhosi s, and approximately 2 % of healthy people. High values are clos ethel correlated with AIH type 1. SOPHIA (test code Performing Lab EZ = SOPHIA) [facility] [address] [address] Edgard Jay MD, PhD, MICHEAL [facility] CenterPOCT-GLUCOSE [id number] 22:37:18 Test Item Value Reference Range Interpretation Comments POC-GLUCOSE METER 108 mg/dL 70-110 : TESTED A T [facility] 6720 (BEAKER) (test code = [employer] [facility], 1538) [address]: Drop Hammer Operator Helper/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 ID = [id number] for SHYLA KRAUS POCT-GLUCOSE [id number] 17:29:42 Test Item Value Reference Range Interpretation Comments POC-GLUCOSE METER 129 mg/dL 70-110 H : TESTED A T [facility] 6720 (BEAKER) (test code = [employer] [facility], 1538) [address]: Drop Hammer Operator Helper/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 ID = [id number] for EMMIE JOHNSON [id number] 14:27:31 Test Item Value Reference Range Interpretation Comments Ceruloplasmin (test code 64 mg/dL 18-53 H = 20190812) SOPHIA (test code = SOPHIA) Performing Lab *DANNA [facility], [id number] [place] [id number] Maame Nuñez MD Lab Interpretation (test Abnormal code = 31535-7) [facility] CenterBfrzirBjrgpvkuagzgc3983-63-57 14:27:31 Test Item Value Reference Range Interpretation Comments Ceruloplasmin (test code 64 mg/dL 18-53 H = 7579308) SOPHIA (test code = SOPHIA) Performing Lab *DANNA [facility], [address] [place] [address] Maame Nuñez MD Lab Interpretation (test Abnormal code = 50795-6) [facility] 14:27:31 Test Item Value Reference Range Interpretation Comments Ceruloplasmin (test code 64 mg/dL 18-53 H = 5557402) SOPHIA (test code = SOPHIA) Performing Lab *DANNA [facility], [address] [place] [address] Maame Nuñez MD Lab Interpretation (test Abnormal code = 12442-3) [facility]20[facility]-17 14:27:31 Test Item Value Reference Range Interpretation Comments Ceruloplasmin (test code 64 mg/dL 18-53 H = 4711461) SOPHIA (test code = SOPHIA) Performing Lab *DANNA [facility], [address] [place] [address] Maame Nuñez MD Lab Interpretation (test Abnormal code = 89211-6) [facility]2021-[facility]-17 14:27:31 Test Item Value Reference Range Interpretation Comments Ceruloplasmin (test code 64 mg/dL 18-53 H = 2867914) SOPHIA (test code = SOPHIA) Performing Lab *DANNA [facility], [address] [place] [address] Maame Nuñez MD Lab Interpretation (test Abnormal code = 39255-0) [facility] 14:27:31 Test Item Value Reference Range Interpretation Comments Ceruloplasmin (test code 64 mg/dL 18-53 H = 6214782) SOPHIA (test code = SOPHIA) Performing Lab *DANNA [facility], [address] [place] [address] Maame Nuñez MD Lab Interpretation (test Abnormal code = 81344-4) [facility]2021-[facility]-17 14:27:31 Test Item Value Reference Range Interpretation Comments Ceruloplasmin (test code 64 mg/dL 18-53 H = 0443037) SOPHIA (test code = SOPHIA) Performing Lab *DANNA [facility], [address] [place] [address] Maame Nuñez MD Lab Interpretation (test Abnormal code = 03317-7) [facility] CenterCarbohydrate antigen 19-9 (CA 19-9)2021-06-06 13:37:14 Test Item Value Reference Range Interpretation Comments CA 19-9 20 U/mL <34 This test was (test code = performed using the 03956-5) Siemens Chemiluminescen t method.Values o btained from different assay methods cannot be used interchangeably .CA19-9 levels, regardl ess of value, should n ot be interpreted as absoluteevidenc e of the presence or abs ence of disease. SOPHIA (test Performing Lab EZ code = SOPHIA) [facility] [address] [address] Edgard Jay MD, PhD, MICHEAL [facility] CenterCarbohydrate antigen 19-9 (CA 19-9)2021-06-06 13:37:14 Test Item Value Reference Range Interpretation Comments CA 19-9 20 U/mL <34 This test was (test code = performed using the 18300-9) Siemens Chemiluminescen t method.Values o btained from different assay methods cannot be used interchangeably .CA19-9 levels, regardl ess of value, should n ot be interpreted as absoluteevidenc e of the presence or abs ence of disease. SOPHIA (test Performing Lab EZ code = SOPHIA) [facility] [place] [address] [place] [address] Edgard Jay MD, PhD, MICHEAL [facility] CenterCarbohydrate antigen 19-9 (CA 19-9)2021-06-06 13:37:14 Test Item Value Reference Range Interpretation Comments CA 19-9 20 U/mL <34 This test was (test code = performed using the 38248-5) Siemens Chemiluminescen t method.Values o btained from different assay methods cannot be used interchangeably .CA19-9 levels, regardl ess of value, should n ot be interpreted as absoluteevidenc e of the presence or abs ence of disease. SOPHIA (test Performing Lab EZ code = SOPHIA) [facility] [address] [address] Edgard Jay MD, PhD, [facility] CenterCarb[facility]ydrate antigen 19-9 (CA 19-9)2021-06-06 13:37:14 Test Item Value Reference Range Interpretation Comments CA 19-9 20 U/mL <34 This test was (test code = performed using the 45024-9) Siemens Chemiluminescen t method.Values o btained from different assay methods cannot be used interchangeably .CA19-9 levels, regardl ess of value, should n ot be interpreted as absoluteevidenc e of the presence or abs ence of disease. SOPHIA (test Performing Lab EZ code = SOPHIA) [facility] [address] [address] Edgard Jay MD, PhD, [facility] CenterCarbohydrate antigen 19-9 (CA 19-9)2021-06-06 13:37:14 Test Item Value Reference Range Interpretation Comments CA 19-9 20 U/mL <34 This test was (test code = performed using the 74916-8) Siemens Chemiluminescen t method.Values o btained from different assay methods cannot be used interchangeably .CA19-9 levels, regardl ess of value, should n ot be interpreted as absoluteevidenc e of the presence or abs ence of disease. SOPHIA (test Performing Lab EZ code = SOPHIA) [facility] [address] [address] Edgard Jay MD, PhD, [facility] CenterCarbohydrate antigen 19-9 (CA 19-9)2021-06-06 13:37:14 Test Item Value Reference Range Interpretation Comments CA 19-9 20 U/mL <34 This test was (test code = performed using the 84353-2) Siemens Chemiluminescen t method.Values o btained from different assay methods cannot be used interchangeably .CA19-9 levels, regardl ess of value, should n ot be interpreted as absoluteevidenc e of the presence or abs ence of disease. SOPHIA (test Performing Lab EZ code = SOPHIA) [facility] [place] [address] [place] [address] Edgard Jay MD, PhD, MICHEAL [facility] CenterCarbohydrate antigen 19-9 (CA 19-9)2021-06-06 13:37:14 Test Item Value Reference Range Interpretation Comments CA 19-9 20 U/mL <34 This test was (test code = performed using the 53970-2) Siemens Chemiluminescen t method.Values o btained from different assay methods cannot be used interchangeably .CA19-9 levels, regardl ess of value, should n ot be interpreted as absoluteevidenc e of the presence or abs ence of disease. SOPHIA (test Performing Lab EZ code = SOPHIA) [facility] [address] [place] [address] Edgard Jay MD, PhD, MICHEAL [facility] CenterPOCT-GLUCOSE [id number] 12:35:17 Test Item Value Reference Range Interpretation Comments POC-GLUCOSE METER 162 mg/dL 70-110 H : TESTED A T [facility] 6720 (BEAKER) (test code = [facility] [employer] [facility], 1538) [address]: Drop Hammer Operator Helper/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 ID = [id number] for MARIE RTELADIA, CHIANNA POCT-GLUCOSE [id number] 08:15:46 Test Item Value Reference Range Interpretation Comments POC-GLUCOSE METER 100 mg/dL 70-110 : TESTED A T [facility] 6720 (BEAKER) (test code = [facility] [employer] [facility], 1538) [address]: Drop Hammer Operator Helper/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 ID = [id number] for MARIE RTIN, CHIANNA POCT-GLUCOSE [id number] 21:16:23 Test Item Value Reference Range Interpretation Comments POC-GLUCOSE METER 135 mg/dL 70-110 H : TESTED A T [facility] 6720 (BEAKER) (test code = [facility] [employer] [facility], 1538) [address]27[address]: Drop Hammer Operator Helper/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 ID = [id number] for JUAN HAND SE POCT-GLUCOSE [id number] 17:57:43 Test Item Value Reference Range Interpretation Comments POC-GLUCOSE METER 121 mg/dL 70-110 H : TESTED A T [facility] 6720 (BEAKER) (test code = KENYA Mcmullen [facility], 1538) [address]: Drop Hammer Operator Helper/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 ID = [id number] for EMMIE JOHNSON POCT-GLUCOSE [id number] 12:11:50 Test Item Value Reference Range Interpretation Comments POC-GLUCOSE METER 143 mg/dL 70-110 H : TESTED A T [facility] 6720 (ROBYN) (test code = KENYA QUINONES [place], 1538) [address]: Drop Hammer Operator Helper/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 ID = [id number] for EMMIE JOHNSON MR, ABDOMEN, [id number] 09:03:00MRI LIVER PROTOCOL; liver masses MRCP patient with dilated intrahepatic ducts. Recommended by hepatology Unlisted Reason for Exam - Click Yes and Enter Reason Below->No Deos the patient have an implanted electronic device?->No [facility] : 1970 Sex: FFINAL REPORT TECHNIQUE: MRI of the abdomen and MRCP WITHOUT and WITH intravenous contrast. 3-D volume reconstructions were obtained to evaluate the biliary ductal system. INDICATION:51-year-old woman with liver mass. COMPARISON: None. FINDINGS: LOWER THORAX: Unremarkable. HEPATOBILIARY: No cirrhosis or hepatic steatosis. 7.9 x 7.1 x 9 cm mass with progressive delayed internal enhan cement involves the left hepatic lobe, anterior segment of the right hepatic lobe, as well as the caudate lobe. The mass results in mild-moderate prominence of the upstream intrahepatic bile ducts [...] hydronephrosis or mass. Subcentimeter left renal cyst. 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 GI TRACT: No distention or wall thickening. Small hiatal hernia. BONES AND SOFT TISSUES: Unremarkable. IMPRESSION:9 cm liver mass,suspicious for cholangiocarcinoma. The mass results in upstream [...] MDReport Verified Date/Time: 06/05/2021 09:03:32 Reading Location: [facility] Diagnostic Imaging Reading Room - [place] [address] POCT-GLUCOSE [id number] 08:04:23 Test Item Value Reference Range Interpretation Comments POC-GLUCOSE METER 97 mg/dL 70-110 : TESTED A T [facility] 6720 (BEAKER) (test code = KENYA Mcmullen [facility], 1538) [address]: Drop Hammer Operator Helper/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 ID = [id number] for EMMIE MOREIRA Hepatitis B surface [id number] 06:11:57 Test Item Value Reference Range Interpretation Comments Hep B S Ab (test code <8.0 See_Comment [Auto mated = 71847-1) message] The system which generated this result transmit manoj reference range : <8.0 mIU/mL. Th e reference range was not used to interpret this result as normal/abnormal . SOPHIA (test code = SOPHIA) Drop Hammer Operator Helper ID - SARAH M Lab Interpretation Normal (test code = 18862-9) [facility] B surface [id number] 06:11:57 Test Item Value Reference Range Interpretation Comments Hep B S Ab (test code <8.0 See_Comment [Auto mated = 49644-2) message] The system which generated this result transmit manoj reference range : <8.0 mIU/mL. Th e reference range was not used to interpret this result as normal/abnormal . SOPHIA (test code = SOPHIA) [employer] Operator Helper ID - SARAH Javed Lab Interpretation Normal (test code = 71590-1) [facility] B surface [id number] 06:11:57 Test Item Value Reference Range Interpretation Comments Hep B S Ab (test code <8.0 See_Comment [Auto mated = 28209-8) message] The system which generated this result transmit manoj reference range : <8.0 mIU/mL. Th e reference range was not used to interpret this result as normal/abnormal . SOPHIA (test code = SOPHIA) [employer] Operator Helper ID - SARAH Javed Lab Interpretation Normal (test code = 85015-8) [facility] B surface [id number] 06:11:57 Test Item Value Reference Range Interpretation Comments Hep B S Ab (test code <8.0 See_Comment [Auto mated = 86311-5) message] The system which generated this result transmit manoj reference range : <8.0 mIU/mL. Th e reference range was not used to interpret this result as normal/abnormal . SOPHIA (test code = SOPHIA) Drop Hammer Operator Helper ID - SARAH Javed Lab Interpretation Normal (test code = 86453-9) [facility] B surface [id number] 06:11:57 Test Item Value Reference Range Interpretation Comments Hep B S Ab (test code <8.0 See_Comment [Auto mated = 08366-0) message] The system which generated this result transmit manoj reference range : <8.0 mIU/mL. Th e reference range was not used to interpret this result as normal/abnormal . SOPHIA (test code = SOPHIA) Drop Hammer Operator Helper ID - SARAH M Lab Interpretation Normal (test code = 96537-7) [facility] B surface [id number] 06:11:57 Test Item Value Reference Range Interpretation Comments Hep B S Ab (test code <8.0 See_Comment [Auto mated = 01987-0) message] The system which generated this result transmit manoj reference range : <8.0 mIU/mL. Th e reference range was not used to interpret this result as normal/abnormal . SOPHIA (test code = SOPHIA) Drop [employer] Operator Helper ID - SARAH M Lab Interpretation Normal (test code = 87378-9) [facility] Center[facility] surface [id number] 06:11:57 Test Item Value Reference Range Interpretation Comments Hep B S Ab (test code <8.0 See_Comment [Auto mated = 47145-3) message] The system which generated this result transmit manoj reference range : <8.0 mIU/mL. Th e reference range was not used to interpret this result as normal/abnormal . SOPHIA (test code = SOPHIA) Drop [employer] Operator Helper ID - SARAH M Lab Interpretation Normal (test code = 21670-4) [facility] CenterHEPATITIS B SURFACE [id number] 06:11:57 Test Item Value Reference Range Interpretation Comments HEPATITIS B SURFACE ANTIBODY < mIU/mL <8.0 (BEAKER) (test code = 647) Drop [employer] Operator Helper ID - SARAH MPOCT-GLUCOSE [id number] 21:20:16 Test Item Value Reference Range Interpretation Comments POC-GLUCOSE METER 170 mg/dL 70-110 H : TESTED A T [facility] 6720 ([employer]) (test code = [facility], 1538) [address]: Drop Hammer Operator Helper/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 ID = [id number] for BROWN CLAYTON POCT-GLUCOSE [id number] 17:16:22 Test Item Value Reference Range Interpretation Comments POC-GLUCOSE METER 128 mg/dL 70-110 H : TESTED A T [facility] 6720 (BEAKER) (test code = [facility] [employer] [facility], 1538) [address]: Drop Hammer Operator Helper/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 ID = [id number] for MIHIR DIAZ EBV-VCA antibody, [id number] 11:41:04 Test Item Value Reference Range Interpretation Comments JIMMY GILMORE VIRAL Positive Negative, A CAPSID ANTIGEN IGG (test Equivocal code = 3415) SOPHIA (test code = SOPHIA) Jimmy Gilmore Viral Capsid Antigen IgG Result Interpretation: </= 0.8 Al Negative 0.9-1.0 Al Equivocal >/= 1.1 Al Positive Lab Interpretation (test Abnormal code = 88771-3) [facility] CenterEBV-VCA antibody, [id number] 11:41:04 Test Item Value Reference Range Interpretation Comments JIMMY GILMORE VIRAL Negative Negative, CAPSID ANTIGEN IGM (test Equivocal code = 3418) SOPHIA (test code = SOPHIA) Jimmy Gilmore Viral Capsid Antigen IgM Result Interpretation: </= 0.8 Al Negative 0.9-1.0 Al Equivocal >/= 1.1 Al Positive Lab Interpretation (test Normal code = 68800-4) [facility] CenterCytomegalovirus antibody, [id number] 11:41:04 Test Item Value Reference Range Interpretation Comments CYTOMEGALOVIRUS, IGG Positive Negative, A (test code = 3429) Equivocal SOPHIA (test code = SOPHIA) CMV IgG Result Interpretation: </= 0.8 Al Negative 0.9-1.0 Al Equivocal >/=1.1 Al Positive Lab Interpretation (test Abnormal code = 81931-4) [facility] CenterEBV-VCA antibody, [id number] 11:41:04 Test Item Value Reference Range Interpretation Comments JIMMY GILMORE VIRAL Positive Negative, A CAPSID ANTIGEN IGG (test Equivocal code = 3415) SOPHIA (test code = SOPHIA) Jimmy Gilmore Viral Capsid Antigen IgG Result Interpretation: </= 0.8 Al Negative 0.9-1.0 Al Equivocal >/= 1.1 Al Positive Lab Interpretation (test Abnormal code = 13459-9) [facility] CenterEBV-VCA antibody, [id number] 11:41:04 Test Item Value Reference Range Interpretation Comments JIMMY GILMORE VIRAL Negative Negative, CAPSID ANTIGEN IGM (test Equivocal code = 3418) SOPHIA (test code = SOPHIA) Jimmy Gilmore Viral Capsid Antigen IgM Result Interpretation: </= 0.8 Al Negative 0.9-1.0 Al Equivocal >/= 1.1 Al Positive Lab Interpretation (test Normal code = 93128-0) [facility] CenterCytomegalovirus antibody, [id number] 11:41:04 Test Item Value Reference Range Interpretation Comments CYTOMEGALOVIRUS, IGG Positive Negative, A (test code = 3429) Equivocal SOPHIA (test code = SOPHIA) CMV IgG Result Interpretation: </= 0.8 Al Negative 0.9-1.0 Al Equivocal >/=1.1 Al Positive Lab Interpretation (test Abnormal code = 79739-9) [facility] CenterEBV-VCA antibody, [id number] 11:41:04 Test Item Value Reference Range Interpretation Comments JIMMY GILMORE VIRAL Positive Negative, A CAPSID ANTIGEN IGG (test Equivocal code = 3415) SOPHIA (test code = SOPHIA) Jimmy Gilmore Viral Capsid Antigen IgG Result Interpretation: </= 0.8 Al Negative 0.9-1.0 Al Equivocal >/= 1.1 Al Positive Lab Interpretation (test Abnormal code = 92316-4) [facility] CenterEBV-VCA antibody, [id number] 11:41:04 Test Item Value Reference Range Interpretation Comments JIMMY GILMORE VIRAL Negative Negative, CAPSID ANTIGEN IGM (test Equivocal code = 3418) SOPHIA (test code = SOHPIA) Jimmy Gilmore Viral Capsid Antigen IgM Result Interpretation: </= 0.8 Al Negative 0.9-1.0 Al Equivocal >/= 1.1 Al Positive Lab Interpretation (test Normal code = 87365-5) [facility] CenterCytomegalovirus antibody, [id number] 11:41:04 Test Item Value Reference Range Interpretation Comments CYTOMEGALOVIRUS, IGG Positive Negative, A (test code = 3429) Equivocal SOPHIA (test code = SOPHIA) CMV IgG Result Interpretation: </= 0.8 Al Negative 0.9-1.0 Al Equivocal >/=1.1 Al Positive Lab Interpretation (test Abnormal code = 60948-1) [facility] CenterEBV-VCA antibody, [id number] 11:41:04 Test Item Value Reference Range Interpretation Comments JIMMY GILMORE VIRAL Positive Negative, A CAPSID ANTIGEN IGG (test Equivocal code = 3415) SOPHIA (test code = SOPHIA) Jimmy Gilmore Viral Capsid Antigen IgG Result Interpretation: </= 0.8 Al Negative 0.9-1.0 Al Equivocal >/= 1.1 Al Positive Lab Interpretation (test Abnormal code = 87635-2) [facility] CenterEBV-VCA antibody, [id number] 11:41:04 Test Item Value Reference Range Interpretation Comments JIMMY GILMORE VIRAL Negative Negative, CAPSID ANTIGEN IGM (test Equivocal code = 3418) SOPHIA (test code = SOPHIA) Jimmy Gilmore Viral Capsid Antigen IgM Result Interpretation: </= 0.8 Al Negative 0.9-1.0 Al Equivocal >/= 1.1 Al Positive Lab Interpretation (test Normal code = 23582-3) [facility] CenterCytomegalovirus antibody, [id number] 11:41:04 Test Item Value Reference Range Interpretation Comments CYTOMEGALOVIRUS, IGG Positive Negative, A (test code = 3429) Equivocal SOPHIA (test code = SOPHIA) CMV IgG Result Interpretation: </= 0.8 Al Negative 0.9-1.0 Al Equivocal >/=1.1 Al Positive Lab Interpretation (test Abnormal code = 20349-4) [facility] CenterEBV-VCA antibody, [id number] 11:41:04 Test Item Value Reference Range Interpretation Comments JIMMY GILMORE VIRAL Positive Negative, A CAPSID ANTIGEN IGG (test Equivocal code = 3415) SOPHIA (test code = SOPHIA) Jimmy Gilmore Viral Capsid Antigen IgG Result Interpretation: </= 0.8 Al Negative 0.9-1.0 Al Equivocal >/= 1.1 Al Positive Lab Interpretation (test Abnormal code = 81474-3) [facility] CenterEBV-VCA antibody, [id number] 11:41:04 Test Item Value Reference Range Interpretation Comments JIMMY GILMORE VIRAL Negative Negative, CAPSID ANTIGEN IGM (test Equivocal code = 3418) SOPHIA (test code = SOPHIA) Jimmy Gilmore Viral Capsid Antigen IgM Result Interpretation: </= 0.8 Al Negative 0.9-1.0 Al Equivocal >/= 1.1 Al Positive Lab Interpretation (test Normal code = 67540-0) [facility] CenterCytomegalovirus antibody, [id number] 11:41:04 Test Item Value Reference Range Interpretation Comments CYTOMEGALOVIRUS, IGG Positive Negative, A (test code = 3429) Equivocal SOPHIA (test code = SOPHIA) CMV IgG Result Interpretation: </= 0.8 Al Negative 0.9-1.0 Al Equivocal >/=1.1 Al Positive Lab Interpretation (test Abnormal code = 19434-2) [facility], [id number] 11:41:04 Test Item Value Reference Range Interpretation Comments JIMMY GILMORE VIRAL Positive Negative, A CAPSID ANTIGEN IGG (test Equivocal code = 3415) SOPHIA (test code = SOPHIA) Jimmy Gilmore Viral Capsid Antigen IgG Result Interpretation: </= 0.8 Al Negative 0.9-1.0 Al Equivocal >/= 1.1 Al Positive Lab Interpretation (test Abnormal code = 78489-2) [facility], [id number] 11:41:04 Test Item Value Reference Range Interpretation Comments JIMMY GILMORE VIRAL Negative Negative, CAPSID ANTIGEN IGM (test Equivocal code = 3418) SOPHIA (test code = SOPHIA) Jimmy Gilmore Viral Capsid Antigen IgM Result Interpretation: </= 0.8 Al Negative 0.9-1.0 Al Equivocal >/= 1.1 Al Positive Lab Interpretation (test Normal code = 20090-4) [facility] CenterCytomegalovirus antibody, [id number] 11:41:04 Test Item Value Reference Range Interpretation Comments CYTOMEGALOVIRUS, IGG Positive Negative, A (test code = 3429) Equivocal SOPHIA (test code = SOPHIA) CMV IgG Result Interpretation: </= 0.8 Al Negative 0.9-1.0 Al Equivocal >/=1.1 Al Positive Lab Interpretation (test Abnormal code = 86983-4) [facility], [id number] 11:41:04 Test Item Value Reference Range Interpretation Comments JIMMY GILMORE VIRAL Positive Negative, A CAPSID ANTIGEN IGG (test Equivocal code = 3415) SPOHIA (test code = SOPHIA) Jimmy Glimore Viral Capsid Antigen IgG Result Interpretation: </= 0.8 Al Negative 0.9-1.0 Al Equivocal >/= 1.1 Al Positive Lab Interpretation (test Abnormal code = 78450-3) [facility], [id number] 11:41:04 Test Item Value Reference Range Interpretation Comments JIMMY GILMORE VIRAL Negative Negative, CAPSID ANTIGEN IGM (test Equivocal code = 3418) SOPHIA (test code = SOPHIA) Jimmy Gilmore Viral Capsid Antigen IgM Result Interpretation: </= 0.8 Al Negative 0.9-1.0 Al Equivocal >/= 1.1 Al Positive Lab Interpretation (test Normal code = 93074-5) [facility] CenterCytomegalovirus antibody, [id number] 11:41:04 Test Item Value Reference Range Interpretation Comments CYTOMEGALOVIRUS, IGG Positive Negative, A (test code = 3429) Equivocal SOPHIA (test code = SOPHIA) CMV IgG Result Interpretation: </= 0.8 Al Negative 0.9-1.0 Al Equivocal >/=1.1 Al Positive Lab Interpretation (test Abnormal code = 77208-1) [facility]TIBODY, [id number] 11:41:04 Test Item Value Reference Range Interpretation Comments JIMMY GILMORE VIRAL CAPSID Negative Negative, Equivocal ANTIGEN IGM (BEAKER) (test code = 3418) Jimmy Gilmore Viral Capsid Antigen IgM Result Interpretation: </= 0.8 Al Negative 0.9-1.0 Al Equivocal >/= 1.1 Al PositiveEBV ANTIBODY, [id number] 11:41:04 Test Item Value Reference Range Interpretation Comments JIMMY GILMORE VIRAL CAPSID Positive Negative, Equivocal A ANTIGEN IGG (BEAKER) (test code = 3415) Jimmy Gilmore Viral Capsid Antigen IgG Result Interpretation: </= 0.8 Al Negative 0.9-1.0 Al Equivocal >/= 1.1 Al PositiveCYTOMEGALOVIRUS ANTIBODY, [id number] 11:41:04 Test Item Value Reference Range Interpretation Comments CYTOMEGALOVIRUS, IGG (BEAKER) Positive Negative, Equivocal A (test code = 3429) CMV IgG Result Interpretation: </= 0.8 Al Negative 0.9-1.0 Al Equivocal >/=1.1 Al PositivePOCT-GLUCOSE [id number] 11:24:58 Test Item Value Reference Range Interpretation Comments POC-GLUCOSE METER 165 mg/dL 70-110 H : TESTED A T [facility] 6720 (BEAKER) (test code = KENYA Mcmullen [facility], 1538) [address]: Drop Hammer Operator Helper/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 ID = [id number] for MIHIR DIAZ Anti-Nuclear Antibody (MORENA)2021-06-04 09:49:08 Test Item Value Reference Range Interpretation Comments MORENA (test code = 40057-8) Negative Negative SOPHIA (test code = SOPHIA) Test performed by IFA method.Test performed by IFA method. Lab Interpretation (test Normal code = 68447-8) [facility] Center[facility] Antib[facility] ([facility])2021-06-04 09:49:08 Test Item Value Reference Range Interpretation Comments MORENA (test code = 21807-1) Negative Negative SOPHIA (test code = SOPHIA) Test performed by IFA method.Test performed by IFA method. Lab Interpretation (test Normal code = 81330-5) [facility] Center[facility] Antibody ([facility])2021-06-04 09:49:08 Test Item Value Reference Range Interpretation Comments MORENA (test code = 59403-0) Negative Negative SOPHIA (test code = SOPHIA) Test performed by IFA method.Test performed by IFA method. Lab Interpretation (test Normal code = 41808-2) [facility] Center[facility] ([facility])2021-06-04 09:49:08 Test Item Value Reference Range Interpretation Comments MORENA (test code = 44063-6) Negative Negative SOPHIA (test code = SOPHIA) Test performed by IFA method.Test performed by IFA method. Lab Interpretation (test Normal code = 12746-0) [facility] CenterAnti[facility] Antibody ([facility])2021-06-04 09:49:08 Test Item Value Reference Range Interpretation Comments MORENA (test code = 64771-8) Negative Negative SOPHIA (test code = SOPHIA) Test performed by IFA method.Test performed by IFA method. Lab Interpretation (test Normal code = 96595-3) [facility] CenterAnti[facility] Antibody ([facility]NA)2021-06-04 09:49:08 Test Item Value Reference Range Interpretation Comments MORENA (test code = 72365-1) Negative Negative SOPHIA (test code = SOPHIA) Test performed by IFA method.Test performed by IFA method. Lab Interpretation (test Normal code = 19068-3) [facility] CenterAnti[facility] Antibody (MORENA)2021-06-04 09:49:08 Test Item Value Reference Range Interpretation Comments MORENA (test code = 91900-7) Negative Negative SOPHIA (test code = SOPHIA) Test performed by IFA method.Test performed by IFA method. Lab Interpretation (test Normal code = 55802-9) [facility] CenterANTI-NUCLEAR ANTIBODY (MORENA)2021-06-04 09:49:08 Test Item Value Reference Range Interpretation Comments ANTI-NUCLEAR ANTIBODY (MORENA) (BEAKER) Negative Negative (test code = 418) Test performed by IFA method.Test performed by IFA method.Hemoglobin A1c 2021-06-04 09:31:32 Test Item Value Reference Range Interpretation Comments Hemoglobin A1C (test code = 4548-4) 7.4 % 4.3-6.1 H Lab Interpretation (test code = Abnormal 29877-5) [facility] CenterHemoglobin [id number] 09:31:32 Test Item Value Reference Range Interpretation Comments Hemoglobin A1C (test code = 4548-4) 7.4 % 4.3-6.1 H Lab Interpretation (test code = Abnormal 85647-4) [facility] CenterHemoglobin [id number] 09:31:32 Test Item Value Reference Range Interpretation Comments Hemoglobin A1C (test code = 4548-4) 7.4 % 4.3-6.1 H Lab Interpretation (test code = Abnormal 37979-3) [facility] CenterHemoglobin [id number] 09:31:32 Test Item Value Reference Range Interpretation Comments Hemoglobin A1C (test code = 4548-4) 7.4 % 4.3-6.1 H Lab Interpretation (test code = Abnormal 87240-3) [facility] CenterHemoglobin [id number] 09:31:32 Test Item Value Reference Range Interpretation Comments Hemoglobin A1C (test code = 4548-4) 7.4 % 4.3-6.1 H Lab Interpretation (test code = Abnormal 77005-8) [facility] CenterHemoglobin [id number] 09:31:32 Test Item Value Reference Range Interpretation Comments Hemoglobin A1C (test code = 4548-4) 7.4 % 4.3-6.1 H Lab Interpretation (test code = Abnormal 11677-0) [facility] CenterHemoglobin [id number] 09:31:32 Test Item Value Reference Range Interpretation Comments Hemoglobin A1C (test code = 4548-4) 7.4 % 4.3-6.1 H Lab Interpretation (test code = Abnormal 24034-3) [facility] CenterHEMOGLOBIN [id number] 09:31:32 Test Item Value Reference Range Interpretation Comments HEMOGLOBIN A1C (BEAKER) (test code = 7.4 % 4.3-6.1 H 368) POCT-GLUCOSE [id number] 08:13:37 Test Item Value Reference Range Interpretation Comments POC-GLUCOSE METER 109 mg/dL 70-110 : [facility] (BE[facility]ER) (test code = KENYA QUINON[place], 1538) [address]: Drop Hammer Operator Helper/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 ID = [id number] for MIHIR DIAZ HEPATIC FUNCTION [id number] 07:38:26 Test Item Value Reference Range Interpretation [...] (test code = 41 U/L 6-55 347) Drop Hammer Operator Helper ID Darian PINEDApecimen moderately atnekovNVDNXFVRHI3628-07-06 07:38:25 Test Item Value Reference Range Interpretation Comments PHOSPHORUS (BEAKER) (test code = 4.7 mg/dL 2.3-4.7 604) Drop Hammer Operator Helper CHARITO Farmer SAITSH FBASIC METABOLIC [id number] 07:38:25 Test Item Value Reference Range Interpretation [...] 697) EGFR (BEAKER) (test 90 mL/min/1.73 ESTIMA MANOJ GFR IS code = 1092) sq m NOT ACCURATE CREATININE CLEARANCE IN PREDICTING GLOMERULAR FILTRATION RATE . ESTIMATED GFR I S NOT APPLICABLE FOR DIALYSIS PATIEN TS. Drop Hammer Operator Helper CHARITO Darian SATISH PINEDApecimen moderately [id number] 07:38:24 Test Item Value Reference Range Interpretation Comments MAGNESIUM (BEAKER) (test code = 1.9 mg/dL 1.6-2.6 627) Drop Hammer Operator Helper ID - SATISH FProthrombin time/[id number] 05:43:19 Test Item Value Reference Interpretation Comments Range Protime (test code = 13.5 See_Comment [Autom ated 5902-2) message] The system which generated this result transmitted reference range : 11.9 - 14.2 seconds. The reference range was not used to interpret this result as normal/abnormal . INR (test code = 1.05 See_Comment [Automated 6301-6) message] The system which generated this result transmitted reference range : <=5.90. The reference range was not used to interpret this result as normal/abnormal . SOPHIA (test code = RECOMMENDED SOPHIA) COUMADIN/WARFARIN INR THERAPY RANGESSTANDARD DOSE: 2.0 - 3.0 Includes: PROPHYLAXIS for venous thrombosis, systemic embolization; TREATMENT for venous thrombosis and/or pulmonary embolus.HIGH RISK: Target INR is 2.5-3.5 for patients with mechanical heart valves. Lab Interpretation Normal (test code = 37292-5) [facility] CenterProthrombin time/[id number] 05:43:19 Test Item Value Reference Interpretation Comments Range Protime (test code = 13.5 See_Comment [Autom ated 5902-2) message] The system which generated this result transmitted reference range : 11.9 - 14.2 seconds. The reference range was not used to interpret this result as normal/abnormal . INR (test code = 1.05 See_Comment [Automated 6301-6) message] The system which generated this result transmitted reference range : <=5.90. The reference range was not used to interpret this result as normal/abnormal . SOPHIA (test code = RECOMMENDED SOPHIA) COUMADIN/WARFARIN INR THERAPY RANGESSTANDARD DOSE: 2.0 - 3.0 Includes: PROPHYLAXIS for venous thrombosis, systemic embolization; TREATMENT for venous thrombosis and/or pulmonary embolus.HIGH RISK: Target INR is 2.5-3.5 for patients with mechanical heart valves. Lab Interpretation Normal (test code = 45234-6) [facility] CenterPROTHROMBIN TIME/[id number] 05:43:19 Test Item Value Reference Range Interpretation Comments PROTIME (BEAKER) 13.5 seconds 11.9-14.2 (test code = 759) INR (BEAKER) (test 1.05 See_Comment [Automat ed message] code = 370) The system [employer] generated this result transmitted ref erence range: <=5.90. The reference range was not used to int erpret this result as normal/abnormal . RECOMMENDED COUMADIN/WARFARIN INR THERAPY RANGESSTANDARD DOSE: 2.0 - 3.0 Includes: PROPHYLAXIS for venous thrombosis, systemic embolization; TREATMENT for venous thrombosis and/or pulmonary embolus.HIGH RISK: Target INR is 2.5-3.5 for patients with mechanical heart valves.CBC W/PLT COUNT & AUTO [id number] 05:31:08 Test Item Value Reference Range Interpretation [...] PERCENT (BEAKER) (test code = 2801) POCT-GLUCOSE [id number] 21:27:11 Test Item Value Reference Range Interpretation Comments POC-GLUCOSE METER 126 mg/dL 70-110 H : TESTED A T [facility] 67[facility] ([facility]) (test code = KENYA QUINONES [place], 1538) [address]: Drop Hammer Operator Helper/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 ID = [id number] for BROWN CLAYTON HIV-1 Antigen with HIV-1/2 [id number] 18:15:07 Test Item Value Reference Range Interpretation Comments HIV-1 Antigen with HIV 1&2 Nonreactive Nonreactive Antibody (test code = 63329-1) SOPHIA (test code = SOPHIA) Drop Hammer Operator Helper ID - BS Lab Interpretation (test Normal code = 33013-6) [facility] CenterHepatitis A antibody, [id number] 18:15:07 Test Item Value Reference Range Interpretation Comments Hep A IgG (test code = Nonreactive Nonreactive 77163-4) SOPHIA (test code = SOPHIA) Drop Hammer Operator Helper ID - BS Lab Interpretation (test Normal code = 21521-1) [facility] CenterHIV-1 Antigen with HIV-1/2 [id number] 18:15:07 Test Item Value Reference Range Interpretation Comments HIV-1 Antigen with HIV 1&2 Nonreactive Nonreactive Antibody (test code = 41923-5) SOPHIA (test code = SOPHIA) Drop Hammer Operator Helper ID - BS Lab Interpretation (test Normal code = 09253-0) [facility] CenterHepatitis A antibody, [id number] 18:15:07 Test Item Value Reference Range Interpretation Comments Hep A IgG (test code = Nonreactive Nonreactive 94514-8) SOPHIA (test code = SOPHIA) Drop Hammer Operator Helper ID - BS Lab Interpretation (test Normal code = 32479-5) [facility] CenterHIV-1 Antigen with HIV-1/2 [id number] 18:15:07 Test Item Value Reference Range Interpretation Comments HIV-1 Antigen with HIV 1&2 Nonreactive Nonreactive Antibody (test code = 89779-8) SOPHIA (test code = SOPHIA) Drop Hammer Operator Helper ID - BS Lab Interpretation (test Normal code = 50306-3) [facility] CenterHepatitis A antibody, [id number] 18:15:07 Test Item Value Reference Range Interpretation Comments Hep A IgG (test code = Nonreactive Nonreactive 80739-3) SOPHIA (test code = SOPHIA) Drop Hammer Operator Helper ID - BS Lab Interpretation (test Normal code = 64361-1) [facility] CenterHIV[facility]1 Antigen with HIV-1/2 [id number] 18:15:07 Test Item Value Reference Range Interpretation Comments HIV-1 Antigen with HIV 1&2 Nonreactive Nonreactive Antibody (test code = 10083-0) SOPHIA (test code = SOPHIA) Drop Hammer Operator Helper ID - BS Lab Interpretation (test Normal code = 99019-5) [facility] CenterHepatitis A antibody, [id number] 18:15:07 Test Item Value Reference Range Interpretation Comments Hep A IgG (test code = Nonreactive Nonreactive 01848-0) SOPHIA (test code = SOPHIA) Drop Hammer Operator Helper ID - BS Lab Interpretation (test Normal code = 04354-2) [facility] CenterHIV[facility]1 Antigen with HIV-1/2 [id number] 18:15:07 Test Item Value Reference Range Interpretation Comments HIV-1 Antigen with HIV 1&2 Nonreactive Nonreactive Antibody (test code = 17547-4) SOPIHA (test code = SOPHIA) Drop Hammer Operator Helper ID - BS Lab Interpretation (test Normal code = 58944-8) [facility] CenterHepatitis A antibody, [id number] 18:15:07 Test Item Value Reference Range Interpretation Comments Hep A IgG (test code = Nonreactive Nonreactive 09221-3) SOPHIA (test code = SOPHIA) Drop Hammer Operator Helper ID - BS Lab Interpretation (test Normal code = 30712-2) [facility] CenterHIV[facility]1 Antigen with HIV-1/2 [id number] 18:15:07 Test Item Value Reference Range Interpretation Comments HIV-1 Antigen with HIV 1&2 Nonreactive Nonreactive Antibody (test code = 69468-8) SOPHIA (test code = SOPHIA) Drop Hammer Operator Helper ID - BS Lab Interpretation (test Normal code = 15004-0) [facility] CenterHepatitis A antibody, [id number] 18:15:07 Test Item Value Reference Range Interpretation Comments Hep A IgG (test code = Nonreactive Nonreactive 23078-8) SOPHIA (test code = SOPHIA) Drop Hammer Operator Helper ID - BS Lab Interpretation (test Normal code = 53725-9) [facility] CenterHIV[facility] Antigen with HIV-1/2 [id number] 18:15:07 Test Item Value Reference Range Interpretation Comments HIV-1 Antigen with HIV 1&2 Nonreactive Nonreactive Antibody (test code = 93221-7) SOPHIA (test code = SOPHIA) Drop Hammer Operator Helper ID - BS Lab Interpretation (test Normal code = 68741-7) [facility] CenterHepatitis A antibody, [id number] 18:15:07 Test Item Value Reference Range Interpretation Comments Hep A IgG (test code = Nonreactive Nonreactive 77314-0) SOPHIA (test code = SOPHIA) Drop Hammer Operator Helper ID - BS Lab Interpretation (test Normal code = 14535-6) [facility] CenterHIV[facility] ANTIGEN WITH HIV-1/2 [id number] 18:15:07 Test Item Value Reference Range Interpretation Comments HIV-1 ANTIGEN WITH HIV 1\\T\\2 Nonreactive Nonreactive ANTIBODY (2) (BEAKER) (test code = 2586) Drop Hammer Operator Helper ID - BSHEPATITIS A ANTIBODY, [id number] 18:15:07 Test Item Value Reference Range Interpretation Comments HEPATITIS A IGG ANTIBODY (BEAKER) Nonreactive Nonreactive (test code = 2797) Drop Hammer Operator Helper ID - BSHepatitis A antibody, [id number] 18:15:06 Test Item Value Reference Range Interpretation Comments Hep A IgM (test code = Nonreactive Nonreactive 21683-5) SOPHIA (test code = SOPHIA) Drop Hammer Operator Helper ID - BS Lab Interpretation (test Normal code = 72982-9) [facility] CenterHep[facility] A antibody, [id number] 18:15:06 Test Item Value Reference Range Interpretation Comments Hep A IgM (test code = Nonreactive Nonreactive 14461-3) SOPHIA (test code = SOPHIA) Drop Hammer Operator Helper ID - BS Lab Interpretation (test Normal code = 06232-7) [facility] CenterHethree [facility] centertis A antibody, [id number] 18:15:06 Test Item Value Reference Range Interpretation Comments Hep A IgM (test code = Nonreactive Nonreactive 84361-4) SOPHIA (test code = SOPHIA) Drop Hammer Operator Helper ID - BS Lab Interpretation (test Normal code = 26462-3) [facility] CenterHethree [facility] medical centertis A antibody, [id number] 18:15:06 Test Item Value Reference Range Interpretation Comments Hep A IgM (test code = Nonreactive Nonreactive 77123-5) SOPHIA (test code = SOPHIA) Drop Hammer Operator Helper ID - BS Lab Interpretation (test Normal code = 84411-5) [facility], [id number] 18:15:06 Test Item Value Reference Range Interpretation Comments Hep A IgM (test code = Nonreactive Nonreactive 50563-5) SOPHIA (test code = SOPHIA) Drop Hammer Operator Helper ID - BS Lab Interpretation (test Normal code = 76150-6) [facility] CenterHethree [facility] centertis A antibody, [id number] 18:15:06 Test Item Value Reference Range Interpretation Comments Hep A IgM (test code = Nonreactive Nonreactive 72713-9) SOPHIA (test code = SOPHIA) Drop Hammer Operator Helper ID - BS Lab Interpretation (test Normal code = 64407-3) [facility] CenterHepatitis A antibody, [id number] 18:15:06 Test Item Value Reference Range Interpretation Comments Hep A IgM (test code = Nonreactive Nonreactive 64761-7) SOPHIA (test code = SOPHIA) Drop Hammer Operator Helper ID - BS Lab Interpretation (test Normal code = 92810-9) [facility] CenterHEPATITIS A ANTIBODY, [id number] 18:15:06 Test Item Value Reference Range Interpretation Comments HEPATITIS A IGM ANTIBODY (BEAKER) Nonreactive Nonreactive (test code = 498) Drop Hammer Operator Helper ID - BSHepatitis B core antibody, [id number] 18:10:03 Test Item Value Reference Range Interpretation Comments Hep B Core Total Ab (test Nonreactive Nonreactive code = 15094-3) SOPHIA (test code = SOPHIA) Drop Hammer Operator Helper ID - BS Lab Interpretation (test Normal code = 31700-1) [facility] C [id number] 18:10:03 Test Item Value Reference Range Interpretation Comments Hepatitis C Ab (test code = Nonreactive Nonreactive 54502-6) SOPHIA (test code = SOPHIA) Drop Hammer Operator Helper ID - BS Lab Interpretation (test Normal code = 66875-9) [facility], [id number] 18:10:03 Test Item Value Reference Range Interpretation Comments Hep B Core Total Ab (test Nonreactive Nonreactive code = 02156-2) SOPHIA (test code = SOPHIA) Drop Hammer Operator Helper ID - BS Lab Interpretation (test Normal code = 38719-0) [facility] C [id number] 18:10:03 Test Item Value Reference Range Interpretation Comments Hepatitis C Ab (test code = Nonreactive Nonreactive 85161-3) SOPHIA (test code = SOPHIA) Drop Hammer Operator Helper ID - BS Lab Interpretation (test Normal code = 36547-3) [facility] B core antibody, [id number] 18:10:03 Test Item Value Reference Range Interpretation Comments Hep B Core Total Ab (test Nonreactive Nonreactive code = 62718-9) SOPHIA (test code = SOPHIA) Drop Hammer Operator Helper ID - BS Lab Interpretation (test Normal code = 03865-3) [facility] C [id number] 18:10:03 Test Item Value Reference Range Interpretation Comments Hepatitis C Ab (test code = Nonreactive Nonreactive 73517-2) SOPHIA (test code = SOPHIA) Drop Hammer Operator Helper ID - BS Lab Interpretation (test Normal code = 74284-6) [facility], [id number] 18:10:03 Test Item Value Reference Range Interpretation Comments Hep B Core Total Ab (test Nonreactive Nonreactive code = 38647-2) SOPHIA (test code = SOPHIA) Drop Hammer Operator Helper ID - BS Lab Interpretation (test Normal code = 29702-5) [facility] C [id number] 18:10:03 Test Item Value Reference Range Interpretation Comments Hepatitis C Ab (test code = Nonreactive Nonreactive 90042-6) SOPHIA (test code = SOPHIA) Drop Hammer Operator Helper ID - BS Lab Interpretation (test Normal code = 89074-7) [facility] CenterHethree [facility] medical centertis B core antibody, [id number] 18:10:03 Test Item Value Reference Range Interpretation Comments Hep B Core Total Ab (test Nonreactive Nonreactive code = 14474-9) SOPHIA (test code = SOPHIA) Drop Hammer Operator Helper ID - BS Lab Interpretation (test Normal code = 85458-5) [facility] [id number] 18:10:03 Test Item Value Reference Range Interpretation Comments Hepatitis C Ab (test code = Nonreactive Nonreactive 96945-9) SOPHIA (test code = SOPHIA) Drop Hammer Operator Helper ID - BS Lab Interpretation (test Normal code = 58592-2) [facility], [id number] 18:10:03 Test Item Value Reference Range Interpretation Comments Hep B Core Total Ab (test Nonreactive Nonreactive code = 04415-6) SOPHIA (test code = SOPHIA) Drop Hammer Operator Helper ID - BS Lab Interpretation (test Normal code = 40115-6) [facility] [id number] 18:10:03 Test Item Value Reference Range Interpretation Comments Hepatitis C Ab (test code = Nonreactive Nonreactive 48241-7) SOPHIA (test code = SOPHIA) Drop Hammer Operator Helper ID - BS Lab Interpretation (test Normal code = 57033-3) [facility], [id number] 18:10:03 Test Item Value Reference Range Interpretation Comments Hep B Core Total Ab (test Nonreactive Nonreactive code = 10997-1) SOPHIA (test code = SOPHIA) Drop Hammer Operator Helper ID - BS Lab Interpretation (test Normal code = 96640-6) [facility] [id number] 18:10:03 Test Item Value Reference Range Interpretation Comments Hepatitis C Ab (test code = Nonreactive Nonreactive 08353-4) SOPHIA (test code = SOPHIA) Drop Hammer Operator Helper ID - BS Lab Interpretation (test Normal code = 51362-6) [facility] [id number] 18:10:03 Test Item Value Reference Range Interpretation Comments HEPATITIS C ANTIBODY (BEAKER) Nonreactive Nonreactive (test code = 367) Drop Hammer Operator Helper ID - BSHEPATITIS B CORE ANTIBODY, [id number] 18:10:03 Test Item Value Reference Range Interpretation Comments HEPATITIS B CORE TOTAL ANTIBODY Nonreactive Nonreactive (BEAKER) (test code = 497) [employer] Operator Helper ID - BSHepatitis B surface [id number] 18:10:02 Test Item Value Reference Range Interpretation Comments Hepatitis B surface Nonreactive Nonreactive antigen (test code = 5195-3) SOPHIA (test code = SOPHIA) Specimen is considered negative for HBsAg. Lab Interpretation (test Normal code = 02486-9) [facility]21-[facility] 18:10:02 Test Item Value Reference Range Interpretation Comments CEA, SERUM (test code = 3.3 ng/mL 0.0-5.0 2038-) SOPHIA (test code = SOPHIA) [employer] Operator Helper ID - BS Lab Interpretation (test Normal code = 82446-4) [facility] [id number] 18:10:02 Test Item Value Reference Range Interpretation Comments Hepatitis B surface Nonreactive Nonreactive antigen (test code = 5195-3) SOPHIA (test code = SOPHIA) Specimen is considered negative for HBsAg. Lab Interpretation (test Normal code = 25251-1) [facility]embry[facility] ([facility]A)2021-06-03 18:10:02 Test Item Value Reference Range Interpretation Comments CEA, SERUM (test code = 3.3 ng/mL 0.0-5.0 2038-) SOPHIA (test code = SOPHIA) [employer] Operator Helper ID - BS Lab Interpretation (test Normal code = 50711-0) [facility] surface [id number] 18:10:02 Test Item Value Reference Range Interpretation Comments Hepatitis B surface Nonreactive Nonreactive antigen (test code = 5195-3) SOPHIA (test code = SOPHIA) Specimen is considered negative for HBsAg. Lab Interpretation (test Normal code = 48657-8) [facility] CenterCarc[facility]embryonic [facility] ([facility]A)2021-06-03 18:10:02 Test Item Value Reference Range Interpretation Comments CEA, SERUM (test code = 3.3 ng/mL 0.0-5.0 2038-6) SOPHIA (test code = SOPHIA) [employer] Operator Helper ID - BS Lab Interpretation (test Normal code = 35359-0) [facility] surface [id number] 18:10:02 Test Item Value Reference Range Interpretation Comments Hepatitis B surface Nonreactive Nonreactive antigen (test code = 5195-3) SOPHIA (test code = SOPHIA) Specimen is considered negative for HBsAg. Lab Interpretation (test Normal code = 56213-9) [facility]arc[facility]embryonic [facility] ([facility]A)2021-06-03 18:10:02 Test Item Value Reference Range Interpretation Comments CEA, SERUM (test code = 3.3 ng/mL 0.0-5.0 2038-6) SOPHIA (test code = SOPHIA) [employer] Operator Helper ID - BS Lab Interpretation (test Normal code = 52394-1) [facility] B surface [id number] 18:10:02 Test Item Value Reference Range Interpretation Comments HBsAg Screen (test code Nonreactive Nonreactive = 5195-3) SOPHIA (test code = SOPHIA) Specimen is considered negative for HBsAg. Lab Interpretation (test Normal code = 85510-3) [facility] CenterCarcinoembryonic [facility]igen (CEA)2021-06-03 18:10:02 Test Item Value Reference Range Interpretation Comments CEA, SERUM (test code = 3.3 ng/mL 0.0-5.0 2038-) SOPHIA (test code = SOPHIA) [employer] Operator Helper ID - BS Lab Interpretation (test Normal code = 34141-6) [facility] CenterHep[facility] surface [id number] 18:10:02 Test Item Value Reference Range Interpretation Comments HBsAg Screen (test code Nonreactive Nonreactive = 5195-3) SOPHIA (test code = SOPHIA) Specimen is considered negative for HBsAg. Lab Interpretation (test Normal code = 73550-3) [facility] CenterCarcinoembryonic Antigen (CEA)2021-06-03 18:10:02 Test Item Value Reference Range Interpretation Comments CEA, SERUM (test code = 3.3 ng/mL 0.0-5.0 2038-6) SOPHIA (test code = SOPHIA) [employer] Operator Helper ID - BS Lab Interpretation (test Normal code = 87573-9) [facility]Hep[facility] surface [id number] 18:10:02 Test Item Value Reference Range Interpretation Comments Hepatitis B surface Nonreactive Nonreactive antigen (test code = 5195-3) SOPHIA (test code = SOPHIA) Specimen is considered negative for HBsAg. Lab Interpretation (test Normal code = 39237-4) [facility] CenterC[facility]embry[facility] ([facility]A)2021-06-03 18:10:02 Test Item Value Reference Range Interpretation Comments CEA, SERUM (test code = 3.3 ng/mL 0.0-5.0 2038-11) SOPHIA (test code = SOPHIA) [employer] Operator Helper ID - BS Lab Interpretation (test Normal code = 30893-7) [facility] CenterCARCINOEMBRYONIC ANTIGEN (CEA)2021-06-03 18:10:02 Test Item Value Reference Range Interpretation Comments CARCINOEMBRYONIC ANTIGEN (BEAKER) 3.3 ng/mL 0.0-5.0 (test code = 685) [employer] Helper ID - BSHEPATITIS B SURFACE [id number] 18:10:02 Test Item Value Reference Range Interpretation Comments HEPATITIS B SURFACE ANTIGEN (2) Nonreactive Nonreactive (BEAKER) (test code = 2585) Specimen is considered negative for HBsAg.POCT-GLUCOSE [id number] 17:40:09 Test Item Value Reference Range Interpretation Comments POC-GLUCOSE METER 130 mg/dL 70-110 H : TESTED A T [facility] 6720 (BEAKER) (test code = KEN[place] QUINONES [place], 1538) [address]: Drop Hammer Operator Helper/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 ID = [id number] for MIHIR DIAZ Bilirubin, [id number] 16:43:09 Test Item Value Reference Range Interpretation Comments Bilirubin, Direct 5.6 mg/dL 0.1-0.5 H Specimen (test code = 1967-12) slightl y hemolyzed SOPHIA (test code = SOPHIA) [employer] Operator Helper ID - BS Lab Interpretation Abnormal (test code = 98385-3) [facility] CenterBilirubin, [id number] 16:43:09 Test Item Value Reference Range Interpretation Comments Bilirubin, Direct 5.6 mg/dL 0.1-0.5 H Specimen (test code = 1967-12) slightl y hemolyzed SOPHIA (test code = SOPHIA) [employer] Operator Helper ID - BS Lab Interpretation Abnormal (test code = 50680-8) [facility] CenterBilirubin, [id number] 16:43:09 Test Item Value Reference Range Interpretation Comments Bilirubin, Direct 5.6 mg/dL 0.1-0.5 H Specimen (test code = 1967-12) slightl y hemolyzed SOPHIA (test code = SOPHIA) [employer] Operator Helper ID - BS Lab Interpretation Abnormal (test code = 43391-9) [facility] CenterBilirubin, [id number] 16:43:09 Test Item Value Reference Range Interpretation Comments Bilirubin, Direct 5.6 mg/dL 0.1-0.5 H Specimen (test code = 1967-12) slightl y hemolyzed SOPHIA (test code = SOPHIA) [employer] Operator Helper ID - BS Lab Interpretation Abnormal (test code = 05842-9) [facility] CenterBilirubin, [id number] 16:43:09 Test Item Value Reference Range Interpretation Comments Bilirubin, Direct 5.6 mg/dL 0.1-0.5 H Specimen (test code = 1967-12) slightl y hemolyzed SOPHIA (test code = SOPHIA) [employer] Operator Helper ID - BS Lab Interpretation Abnormal (test code = 67816-8) [facility] CenterBilirubin, [id number] 16:43:09 Test Item Value Reference Range Interpretation Comments Bilirubin, Direct 5.6 mg/dL 0.1-0.5 H Specimen (test code = 1967-12) slightl y hemolyzed SOPHIA (test code = SOPHIA) [employer] Operator Helper ID - BS Lab Interpretation Abnormal (test code = 90589-1) [facility] CenterBilirubin, [id number] 16:43:09 Test Item Value Reference Range Interpretation Comments Bilirubin, Direct 5.6 mg/dL 0.1-0.5 H Specimen (test code = 1967-12) slightl y hemolyzed SOPHIA (test code = SOPHIA) [employer] Operator Helper ID - BS Lab Interpretation Abnormal (test code = 95310-4) [facility] CenterBILIRUBIN, [id number] 16:43:09 Test Item Value Reference Range Interpretation Comments BILIRUBIN DIRECT 5.6 mg/dL 0.1-0.5 H Specimen sl ightly (BEAKER) (test code = hemoly zed 706) [employer] Operator Helper ID - BSLipid [id number] 16:43:03 Test Item Value Reference Range Interpretation Comments Triglycerides (test 352 mg/dL Specimen code = 2571-8) slightly hemolyzed Cholesterol (test 234 mg/dL Specimen code = 2092-) slightly hemolyzed HDL (test code = 11 mg/dL 2085-02) LDL Calculated (test 153 mg/dL code = 58291-3) SOPHIA (test code = Triglyceride SOPHIA) Reference Range: Low Risk <150 Borderline 150-199 High Risk 200-499 Very High Risk >=500 Cholesterol Reference Range: Low Risk <200 Borderline 200-239 High Risk >240 HDL Cholesterol Reference Range: Low Risk >=60 High Risk <40 LDL Cholesterol Reference Range: Optimal <100 Near Optimal 100-129 Borderline 130-159 High 160-189 Very High >=190 Drop [employer] Operator Helper ID - BSSpecimen moderately icteric [facility] CenterLipid [id number] 16:43:03 Test Item Value Reference Range Interpretation Comments Triglycerides (test 352 mg/dL Specimen code = 2571-8) slightly hemolyzed Cholesterol (test 234 mg/dL Specimen code = 2092-08) slightly hemolyzed HDL (test code = 11 mg/dL 2085-02) LDL Calculated (test 153 mg/dL code = 18964-0) SOPHIA (test code = Triglyceride SOPHIA) Reference Range: Low Risk <150 Borderline 150-199 High Risk 200-499 Very High Risk >=500 Cholesterol Reference Range: Low Risk <200 Borderline 200-239 High Risk >240 HDL Cholesterol Reference Range: Low Risk >=60 High Risk <40 LDL Cholesterol Reference Range: Optimal <100 Near Optimal 100-129 Borderline 130-159 High 160-189 Very High >=190 [employer] Operator Helper ID - BSSpecimen moderately icteric [facility] CenterLipid [id number] 16:43:03 Test Item Value Reference Range Interpretation Comments Triglycerides (test 352 mg/dL Specimen code = 2571-8) slightly hemolyzed Cholesterol (test 234 mg/dL Specimen code = 2092-08) slightly hemolyzed HDL (test code = 11 mg/dL 2085-02) LDL Calculated (test 153 mg/dL code = 72980-7) SOPHIA (test code = Triglyceride SOPHIA) Reference Range: Low Risk <150 Borderline 150-199 High Risk 200-499 Very High Risk >=500 Cholesterol Reference Range: Low Risk <200 Borderline 200-239 High Risk >240 HDL Cholesterol Reference Range: Low Risk >=60 High Risk <40 LDL Cholesterol Reference Range: Optimal <100 Near Optimal 100-129 Borderline 130-159 High 160-189 Very High >=190 [employer] Operator Helper ID - BSSpecimen moderately icteric [facility] CenterLipid [id number] 16:43:03 Test Item Value Reference Range Interpretation Comments Triglycerides (test 352 mg/dL Specimen code = 2571-8) slightly hemolyzed Cholesterol (test 234 mg/dL Specimen code = 3-3) slightly hemolyzed HDL (test code = 11 mg/dL 2085-02) LDL Calculated (test 153 mg/dL code = 19422-9) SOPHIA (test code = Triglyceride SOPHIA) Reference Range: Low Risk <150 Borderline 150-199 High Risk 200-499 Very High Risk >=500 Cholesterol Reference Range: Low Risk <200 Borderline 200-239 High Risk >240 HDL Cholesterol Reference Range: Low Risk >=60 High Risk <40 LDL Cholesterol Reference Range: Optimal <100 Near Optimal 100-129 Borderline 130-159 High 160-189 Very High >=190 [employer] Operator Helper ID - BSSpecimen moderately icteric [facility] CenterLipid [id number] 16:43:03 Test Item Value Reference Range Interpretation Comments Triglycerides (test 352 mg/dL Specimen code = 2571-8) slightly hemolyzed Cholesterol (test 234 mg/dL Specimen code = 2092-3) slightly hemolyzed HDL (test code = 11 mg/dL 2085-02) LDL Calculated (test 153 mg/dL code = 98104-7) SOPHIA (test code = Triglyceride SOPHIA) Reference Range: Low Risk <150 Borderline 150-199 High Risk 200-499 Very High Risk >=500 Cholesterol Reference Range: Low Risk <200 Borderline 200-239 High Risk >240 HDL Cholesterol Reference Range: Low Risk >=60 High Risk <40 LDL Cholesterol Reference Range: Optimal <100 Near Optimal 100-129 Borderline 130-159 High 160-189 Very High >=190 [employer] Operator Helper ID - BSSpecimen moderately icteric [facility] CenterLipid [id number] 16:43:03 Test Item Value Reference Range Interpretation Comments Triglycerides (test 352 mg/dL Specimen code = 2571-8) slightly hemolyzed Cholesterol (test 234 mg/dL Specimen code = 3-3) slightly hemolyzed HDL (test code = 11 mg/dL 2085-02) LDL Calculated (test 153 mg/dL code = 64097-4) SOPHIA (test code = Triglyceride SOPHIA) Reference Range: Low Risk <150 Borderline 150-199 High Risk 200-499 Very High Risk >=500 Cholesterol Reference Range: Low Risk <200 Borderline 200-239 High Risk >240 HDL Cholesterol Reference Range: Low Risk >=60 High Risk <40 LDL Cholesterol Reference Range: Optimal <100 Near Optimal 100-129 Borderline 130-159 High 160-189 Very High >=190 [employer] Operator Helper ID - BSSpecimen moderately icteric [facility] CenterLipid [id number] 16:43:03 Test Item Value Reference Range Interpretation Comments Triglycerides (test 352 mg/dL Specimen code = 2571-8) slightly hemolyzed Cholesterol (test 234 mg/dL Specimen code = 2093-3) slightly hemolyzed HDL (test code = 11 mg/dL 2085-02) LDL Calculated (test 153 mg/dL code = 08566-6) SOPHIA (test code = Triglyceride SOPHIA) Reference Range: Low Risk <150 Borderline 150-199 High Risk 200-499 Very High Risk >=500 Cholesterol Reference Range: Low Risk <200 Borderline 200-239 High Risk >240 HDL Cholesterol Reference Range: Low Risk >=60 High Risk <40 LDL Cholesterol Reference Range: Optimal <100 Near Optimal 100-129 Borderline 130-159 High 160-189 Very High >=190 [employer] Operator Helper ID - BSSpecimen moderately icteric [facility] CenterLIPID [id number] 16:43:03 Test Item Value Reference Range Interpretation Comments TRIGLYCERIDES (BEAKER) 352 mg/dL Speci men slightly (test code = 540) hemolyzed CHOLESTEROL (BEAKER) 234 mg/dL Specime n slightly (test code = 631) hemolyzed HDL CHOLESTEROL (BEAKER) 11 mg/dL (test code = 976) LDL CHOLESTEROL 153 mg/dL CALCULATED (BEAKER) (test code = 633) Triglyceride Reference Range: Low Risk <150 Borderline 150-199 High Risk 200- 499 Very High Risk >=500Cholesterol Reference Range: Low Risk <200 Borderline 200-239 High Risk >240HDL Cholesterol Reference Range: Low Risk >=60 High Risk <40LDL Cholesterol Reference Range: Optimal <100 Near Optimal 100-129 Borderline 130-159 High 160-189 Very High >=190 [employer] Operator Helper ID - BSSpecimen moderately [id number]-6-nfujrxxmpor3732-12-14 16:26:58 Test Item Value Reference Range Interpretation Comments A-1 Antitrypsin (test code = 235.60 mg/dL 90.00-200.00 H 1825-9) SOPHIA (test code = SOPHIA) [employer] Operator Helper ID - BS Lab Interpretation (test Abnormal code = 34551-2) [facility] CenterQxntjmLtlpa-7-qtvyhvrhdcj4723-12-14 16:26:58 Test Item Value Reference Range Interpretation Comments A-1 Antitrypsin (test code = 235.60 mg/dL 90.00-200.00 H 1825-9) SOPHIA (test code = SOPHIA) [employer] Operator Helper ID - BS Lab Interpretation (test Abnormal code = 56786-0) [facility] CenterMgsdiuZdzbz-7-ouwedpjqdev7517-12-14 16:26:58 Test Item Value Reference Range Interpretation Comments A-1 Antitrypsin (test code = 235.60 mg/dL 90.00-200.00 H 1825-9) SOPHIA (test code = SOPHIA) [employer] Operator Helper ID - BS Lab Interpretation (test Abnormal code = 27931-5) [facility] CenterDxgcxnRbfpz-7-rskocqgzbhf0127-12-14 16:26:58 Test Item Value Reference Range Interpretation Comments A-1 Antitrypsin (test code = 235.60 mg/dL 90.00-200.00 H 1825-9) SOPHIA (test code = SOPHIA) [employer] Operator Helper ID - BS Lab Interpretation (test Abnormal code = 02233-9) [facility] CenterDbqnelPgtuk-8-jirbzrxpnjm3301-12-14 16:26:58 Test Item Value Reference Range Interpretation Comments A-1 Antitrypsin (test code = 235.60 mg/dL 90.00-200.00 H 1825-9) SOPHIA (test code = SOPHIA) [employer] Operator Helper ID - BS Lab Interpretation (test Abnormal code = 48777-3) [facility] CenterJplldoYyrru-4-rgsfxaxkhxi9167-12-14 16:26:58 Test Item Value Reference Range Interpretation Comments A-1 Antitrypsin (test code = 235.60 mg/dL 90.00-200.00 H 1825-9) SOPHIA (test code = SOPHIA) [employer] Operator Helper ID - BS Lab Interpretation (test Abnormal code = 32608-4) [facility] CenterTbhuikVwssg-8-tpkmofqrhae4468-12-14 16:26:58 Test Item Value Reference Range Interpretation Comments A-1 Antitrypsin (test code = 235.60 mg/dL 90.00-200.00 H 1825-9) SOPHIA (test code = SOPHIA) [employer] Operator Helper ID - BS Lab Interpretation (test Abnormal code = 46607-3) [facility] CenterQlcscgMOXXV-5-XPGHOCALGKU8689-12-14 16:26:58 Test Item Value Reference Range Interpretation Comments ALPHA-1 ANTITRYPSIN (BEAKER) 235.60 mg/dL 90.00-200.00 H (test code = 502) [employer] Operator Helper ID - [id number] 15:33:02 Test Item Value Reference Range Interpretation Comments Ferritin (test code = 174.69 ng/mL 5.00-275.00 2276-4) SOPHIA (test code = SOPHIA) [employer] Operator Helper ID - BS Lab Interpretation (test Normal code = 83367-7) [facility] CenterFerritin2021-12-14 15:33:02 Test Item Value Reference Range Interpretation Comments Ferritin (test code = 174.69 ng/mL 5.00-275.00 2276-4) SOPHIA (test code = SOPHIA) [employer] Operator Helper ID - BS Lab Interpretation (test Normal code = 76763-3) [facility] CenterFerritin2021-12-14 15:33:02 Test Item Value Reference Range Interpretation Comments Ferritin (test code = 174.69 ng/mL 5.00-275.00 2276-4) SOPHIA (test code = SOPHIA) [employer] Operator Helper ID - BS Lab Interpretation (test Normal code = 82446-7) [facility] CenterFerritin2021-12-14 15:33:02 Test Item Value Reference Range Interpretation Comments Ferritin (test code = 174.69 ng/mL 5.00-275.00 2276-4) SOPHIA (test code = SOPHIA) [employer] Operator Helper ID - BS Lab Interpretation (test Normal code = 88326-1) [facility] CenterFerritin2021-12-14 15:33:02 Test Item Value Reference Range Interpretation Comments Ferritin (test code = 174.69 ng/mL 5.00-275.00 2276-4) SOPHIA (test code = SOPHIA) [employer] Operator Helper ID - BS Lab Interpretation (test Normal code = 39667-3) [facility] CenterFerritin2021-12-14 15:33:02 Test Item Value Reference Range Interpretation Comments Ferritin (test code = 174.69 ng/mL 5.00-275.00 2276-4) SOPHIA (test code = SOPHIA) [employer] Operator Helper ID - BS Lab Interpretation (test Normal code = 96451-9) [facility] CenterFerritin2021-[facility]-14 15:33:02 Test Item Value Reference Range Interpretation Comments Ferritin (test code = 174.69 ng/mL 5.00-275.00 2276-4) SOPHIA (test code = SOPHIA) [employer] Operator Helper ID - BS Lab Interpretation (test Normal code = 01649-9) [facility] CenterFERRITIN2021-12-14 15:33:02 Test Item Value Reference Range Interpretation Comments FERRITIN (BEAKER) (test code = 174.69 ng/mL 5.00-275.00 361) [employer] Operator Helper ID - BSIron, TIBC, % sat. (without ferritin)2021-06-03 15:12:01 Test Item Value Reference Range Interpretation Comments Iron (test code = 2498-4) 103.0 ug/dL 40.0-160.0 TIBC (test code = 2500-7) 384 ug/dL 250-450 Iron % Saturation (test code 27 % 20-55 = 2502-3) SOPHIA (test code = SOPHIA) [employer] Operator Helper ID - BS Lab Interpretation (test Normal code = 50675-9) [facility] CenterIron, TIBC, % sat. (without ferritin)2021-06-03 15:12:01 Test Item Value Reference Range Interpretation Comments Iron (test code = 2498-4) 103.0 ug/dL 40.0-160.0 TIBC (test code = 2500-7) 384 ug/dL 250-450 Iron % Saturation (test code 27 % 20-55 = 2502-3) SOPHIA (test code = SOPHIA) [employer] Operator Helper ID - BS Lab Interpretation (test Normal code = 85483-6) [facility] CenterIron, TIBC, % sat. (without ferritin)2021-06-03 15:12:01 Test Item Value Reference Range Interpretation Comments Iron (test code = 2498-4) 103.0 ug/dL 40.0-160.0 TIBC (test code = 2500-7) 384 ug/dL 250-450 Iron % Saturation (test code 27 % 20-55 = 2502-3) SOPHIA (test code = SOPHIA) [employer] Operator Helper ID - BS Lab Interpretation (test Normal code = 01899-7) [facility], TIBC, % sat. (without ferritin)2021-06-03 15:12:01 Test Item Value Reference Range Interpretation Comments Iron (test code = 2498-4) 103.0 ug/dL 40.0-160.0 TIBC (test code = 2500-7) 384 ug/dL 250-450 Iron % Saturation (test code 27 % 20-55 = 2502-3) SOPHIA (test code = SOPHIA) [employer] Operator Helper ID - BS Lab Interpretation (test Normal code = 31060-7) [facility], TIBC, % sat. (without ferritin)2021-06-03 15:12:01 Test Item Value Reference Range Interpretation Comments Iron (test code = 2498-4) 103.0 ug/dL 40.0-160.0 TIBC (test code = 2500-7) 384 ug/dL 250-450 Iron % Saturation (test code 27 % 20-55 = 2502-3) SOPHIA (test code = SOPHIA) [employer] Operator Helper ID - BS Lab Interpretation (test Normal code = 85396-9) [facility], TIBC, % sat. (without ferritin)2021-06-03 15:12:01 Test Item Value Reference Range Interpretation Comments Iron (test code = 2498-4) 103.0 ug/dL 40.0-160.0 TIBC (test code = 2500-7) 384 ug/dL 250-450 Iron % Saturation (test code 27 % 20-55 = 2502-3) SOPHIA (test code = SOPHIA) [employer] Operator Helper ID - BS Lab Interpretation (test Normal code = 46163-4) [facility], TIBC, % sat. (without ferritin)2021-06-03 15:12:01 Test Item Value Reference Range Interpretation Comments Iron (test code = 2498-4) 103.0 ug/dL 40.0-160.0 TIBC (test code = 2500-7) 384 ug/dL 250-450 Iron % Saturation (test code 27 % 20-55 = 2502-3) SOPHIA (test code = SOPHIA) [employer] Operator Helper ID - BS Lab Interpretation (test Normal code = 62316-8) [facility] CenterIRON, TIBC, % SAT. (WITHOUT FERRITIN)2021-06-03 15:12:01 Test Item Value Reference Range Interpretation Comments IRON (BEAKER) (test code = 547) 103.0 ug/dL 40.0-160.0 TOTAL IRON BINDING CAPACITY 384 ug/dL 250-450 (BEAKER) (test code = 769) IRON % SATURATION (2) (BEAKER) 27 % 20-55 (test code = 2590) [employer] Operator Helper ID - BSAlpha fetoprotein (AFP), tumor vwpukr9196-10-72 12:08:22 Test Item Value Reference Range Interpretation Comments Alpha-Fetoprotein (test 2.0 ng/mL <10.0 code = 1834-1) SOPHIA (test code = SOPHIA) [employer] Operator Helper ID - [place] F Lab Interpretation (test Normal code = 28607-0) [facility] CenterAlpha fetoprotein (AFP), tumor kdhtjx9378-13-29 12:08:22 Test Item Value Reference Range Interpretation Comments Alpha-Fetoprotein (test 2.0 ng/mL <10.0 code = 1834-1) SOPHIA (test code = SOPHIA) [employer] Operator Helper ID - [place] F Lab Interpretation (test Normal code = 78179-4) [facility] CenterAlpha fetoprotein (AFP), tumor [id number] 12:08:22 Test Item Value Reference Range Interpretation Comments Alpha-Fetoprotein (test 2.0 ng/mL <10.0 code = 1834-1) SOPHIA (test code = SOPHIA) [employer] Operator Helper ID - [place] F Lab Interpretation (test Normal code = 00387-7) [facility] CenterAlpha fetoprotein (AFP), tumor sgfpkj4246-29-17 12:08:22 Test Item Value Reference Range Interpretation Comments Alpha-Fetoprotein (test 2.0 ng/mL <10.0 code = 1834-1) SOPHIA (test code = SOPHIA) [employer] Operator Helper ID - [place] F Lab Interpretation (test Normal code = 41011-8) [facility] CenterAlpha fetoprotein (AFP), tumor yyifqv5649-42-45 12:08:22 Test Item Value Reference Range Interpretation Comments Alpha-Fetoprotein (test 2.0 ng/mL <10.0 code = 1834-1) SOPHIA (test code = SOPHIA) [employer] Operator Helper ID Darian Castellano Lab Interpretation (test Normal code = 32139-0) [facility] CenterAlpha fetoprotein (AFP), tumor [id number] 12:08:22 Test Item Value Reference Range Interpretation Comments Alpha-Fetoprotein (test 2.0 ng/mL <10.0 code = 1834-1) SOPHIA (test code = SOPHIA) [employer] Operator Helper ID Darian Castellano Lab Interpretation (test Normal code = 75641-5) [facility] CenterAlpha fetoprotein (AFP), tumor [id number] 12:08:22 Test Item Value Reference Range Interpretation Comments Alpha-Fetoprotein (test 2.0 ng/mL <10.0 code = 1834-1) SOPHIA (test code = SOPHIA) [employer] Operator Helper ID Darian Castellano Lab Interpretation (test Normal code = 50691-5) [facility] CenterALPHA FETOPROTEIN (AFP), TUMOR [id number] 12:08:22 Test Item Value Reference Range Interpretation Comments ALPHA-FETOPROTEIN (BEAKER) (test 2.0 ng/mL <10.0 code = 1094) Drop Hammer Operator Helper ID Darian COVARRUBIAS FCOMPREHENSIVE METABOLIC [id number] 11:49:08 Test Item Value Reference Range Interpretation [...] S NOT APPLICABLE FOR DIALYSIS PATIEN TS. Drop Hammer Operator Helper ID - SATISH FSpecimen moderately ictericPROTHROMBIN TIME/INR 2021-06-03 11:36:32 Test Item Value Reference Range Interpretation Comments PROTIME (BEAKER) 12.9 seconds 11.9-14.2 (test code = 759) INR (BEAKER) (test 0.99 See_Comment [Automat ed message] code = 370) The system [employer] generated this result transmitted ref erence range: <=5.90. The reference range was not used to int erpret this result as normal/abnormal . RECOMMENDED COUMADIN/WARFARIN INR THERAPY RANGESSTANDARD DOSE: 2.0 - 3.0 Includes: PROPHYLAXIS for venous thrombosis, systemic embolization; TREATMENT for venous thrombosis and/or pulmonary embolus.HIGH RISK: Target INR is 2.5-3.5 for patients with mechanical heart valves.POCT-GLUCOSE [id number] 11:33:50 Test Item Value Reference Range Interpretation Comments POC-GLUCOSE METER 181 mg/dL 70-110 H : TESTED A T BSC 6720 (BEAKER) (test code = KENYA Mcmullen [facility], 1538) 61078: Drop Hammer Operator Helper/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 ID = [id number] for MIHIR DIAZ CBC W/PLT COUNT & AUTO [id number] 11:25:11 Test Item Value Reference Range Interpretation [...]
[2022-08-04] MEDS ORDERED: NA CHLORIDE 0.9% 1,000 ML ONE (21:52)
[2022-08-04 21:54] LABS: Absolute Lymphocytes (CBC) 0.4 K/uL (0.7-4.9); Hematocrit 34.5 % (36.0-45.0); Lymphocytes % 27.8 % (15.3-44.8); MCV 96.2 fL (80-100); MPV 7.8 fL (7.6-11.3); RBC Red Blood Cell Count 3.59 M/uL (3.86-4.86)
[2022-08-04 22:10] LABS: Albumin 3.6 g/dL (3.4-5.0); Bilirubin Total 0.4 mg/dL (0.2-1.0); Potassium 3.5 mmol/L (3.5-5.1); Protein, Total 7.5 g/dL (6.4-8.2)
--- NOTE | 2022-08-04 22:29 | RAD REPORT ---
EXAM DESCRIPTION: US - UPPER EXTREMITY VENOUS BILAT - 08/04/2022 10:01 pm CLINICAL HISTORY: Arm swelling COMPARISON: None. TECHNIQUE: Real-time sonographic evaluation of the bilateral upper extremity deep venous system was performed. FINDINGS: Normal compressibility, flow augmentation, phasic flow and spontaneous flow is identified in the bilateral upper extremity deep venous system. No intraluminal filling defects seen. IMPRESSION: No DVT in the bilateral upper extremity.
[2022-08-04] MEDS ORDERED: ONDANSETRON 4 MG/2 ML VIAL ONE (22:41)
[2022-08-04] MEDS ORDERED: NA CHLORIDE 0.9% 100 ML ONE (22:41)
[2022-08-04] MEDS ORDERED: FAMOTIDINE 20 MG/2 ML VIAL IV ONE (22:41)
[2022-08-04] MEDS ORDERED: FENTANYL CITR 100 MCG/2 ML ONE (22:41)
[2022-08-04] MEDS ORDERED: CEFEPIME 1 GM/VIAL ONE (22:42)
[2022-08-04 22:47] LABS: Magnesium 2.2 mg/dL (1.6-2.4)
[2022-08-04 22:59] LABS: Troponin High Sensitivity < 3.0 pg/mL (<58.9)
--- NOTE | 2022-08-04 23:01 | ER ---
Nurse's Notes 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 Coronavirus screen: Vaccine status: Patient reports receiving the 2nd dose of the covid vaccine. Ebola Screen: Patient negative for fever greater than or equal to 101.5 degrees Fahrenheit, and additional compatible Ebola Virus Disease symptoms. Initial Sepsis Screen: Does the patient meet any 2 criteria? No. Patient's initial sepsis screen is negative. Does the patient have a suspected source of infection? No. Patient's initial sepsis screen is negative. Risk Assessment: Do you want to hurt yourself or someone else? Patient reports no desire to harm self or others. 20:24 Method Of Arrival: Ambulatory kl 20:24 Acuity: ERIN 3 kl Triage Assessment: 20:28 General: Appears uncomfortable, well groomed, well developed, Behavior is cooperative, kl anxious, crying. Pain: Complains of pain in anterior aspect of right upper chest and right arm. Historical: - Allergies: 20:27 No Known Allergies; kl - PMHx: 20:27 liver cancer; Hypertensive disorder; kl - Immunization history:: Adult Immunizations up to date. - Social history:: Smoking status: Patient denies any tobacco usage or history of. - Family history:: not pertinent. Screenin/15 04:00 [facility] ED Fall Risk Assessment (Adult) History of falling in the last 3 months, ll3 including since admission No falls in past 3 months (0 pts) Confusion or Disorientation No (0 pts) Intoxicated or Sedated No (0 pts) Impaired Gait No (0 pts) Mobility Assist Device Used No (0 pt) Altered Elimination No (0 pt) Score/Fall Risk Level 0 - 2 = Low Risk Oriented to surroundings, Maintained a safe environment, Educated pt \T\ family on fall prevention, incl call for assistance when getting out of bed. Abuse screen: Denies threats or abuse. Denies injuries from another. Nutritional screening: No deficits noted. Tuberculosis screening: No symptoms or risk factors identified. Assessment: 08/04 20:57 General: Appears uncomfortable, Behavior is calm, cooperative, Reports fever for on ll3 wednesday. Pain: Complains of pain in right arm Pain radiates to anterior aspect of right upper chest Pain currently is 7 out of 10 on a pain scale. Is intermittent. Neuro: Level of Consciousness is awake, alert, obeys commands. Cardiovascular: Patient's skin is warm and dry. Derm: Skin is pink, warm \T\ dry. Vital Signs: 20:24 BP 125 / 91; Pulse 101; Resp 18; Temp 99.4(O); Pulse Ox 99% ; Weight 79.83 kg (R); kl Height 5 ft. 1 in. (154.94 cm); Pain 08/28; 08/05 01:17 BP 103 / 75; Pulse 82; Resp 17; Pulse Ox 98% on R/A; ll3 04:02 BP 93 / 72; Pulse 76; Resp 18; Pulse Ox 98% on R/A; ll3 08/04 20:24 Body Mass Index 33.25 (79.83 kg, 154.94 cm) ED Course: 08/04 19:36 Patient arrived in ED. ag3 20:22 Jakob Sanches MD is Attending Physician. yadira 20:27 Triage completed. kl 21:22 Inserted saline lock: 20 gauge in left antecubital area, using aseptic technique. Blood ll3 collected. 22:00 Notified ED physician of a critical lab result(s). WBC 1.6. ll3 22:26 Skyla Snowden, RN is Primary Nurse. ll3 22:39 initiated a transfer with Mansi from [facility]. mw2 23:04 Notified ED physician of a critical lab result(s). Band count of 12%. mb9 08/05 00:33 contacted [facility] to give them the Flu result. mw2 01:[address] Sanches with Dr. Mohan from [facility]. mw2 01:32 administrative approval given by Mansi Bryant/ patient has been accepted to [address] Mohan accepted the patient in transfer/report to be called to [phone]. 01:58 [facility] ETA 2 hours and 30 minutes to 3 hours. 2 04:00 No provider procedures requiring assistance completed. Patient transferred, IV remains ll3 in place. 04:00 Patient has correct armband on for positive identification. Placed in gown. Bed in low ll3 position. Call light in reach. Side rails up X 1. Administered Medications: 08/04 22:09 Drug: NS 0.9% 1000 ml Route: IV; Rate: 1 bolus; Site: left antecubital; 3 08/05 00:56 Follow up: Response: No adverse reaction; IV Status: Completed infusion; IV Intake: ll3 1000ml 08/04 22:55 Drug: Pepcid (famotidine) 20 mg Route: IVP; Site: left antecubital; 3 08/05 00:57 Follow up: Response: No adverse reaction 3 08/04 22:55 Drug: Cefepime 1 grams Route: IVPB; Rate: 200 ml/hr; Infused Over: 30 mins; Site: left ll3 antecubital; 08/05 00:57 Follow up: Response: No adverse reaction; IV Status: Completed infusion; IV Intake: ll3 100ml 08/04 22:56 Drug: fentaNYL (PF) 50 mcg Route: IVP; Site: left antecubital; ll3 08/05 00:57 Follow up: Response: No adverse reaction 3 08/04 22:56 Drug: Zofran (Ondansetron) 4 mg Route: IVP; Site: left antecubital; ll3 08/05 00:57 Follow up: Response: No adverse reaction 3 08/04 23:48 Drug: Aspirin Chewable Tablet 81 mg Route: PO; ll3 08/05 00:57 Follow up: Response: No adverse reaction ll3 00:56 Drug: fentaNYL (PF) 50 mcg Route: IVP; Site: left antecubital; ll3 04:00 Follow up: Response: No adverse reaction ll3 00:56 Drug: Zofran (Ondansetron) 4 mg Route: IVP; Site: left antecubital; ll3 04:00 Follow up: Response: No adverse reaction 3 03:39 Drug: Dilaudid (HYDROmorphone) 1 mg Route: IVP; Site: left antecubital; ll3 04:00 Follow up: Response: No adverse reaction; Marked relief of symptoms ll3 03:39 Drug: Phenergan (promethazine) 12.5 mg Route: IVP; Site: left antecubital; ll3 03:59 Follow up: Response: No adverse reaction ll3 Medication: 04:01 VIS not applicable for this client. ll3 Intake: 00:56 IV: 1000ml; Total: 1000ml. ll3 00:57 IV: 100ml; Total: 1100ml. ll3 Outcome: 08/04 23:00 ER care complete, transfer ordered by . yadira 08/05 04:00 Transferred by ground EMS to [facility], Transfer form completed. ll3 X-rays sent w/ patient. Condition: stable Discharge instructions given to patient, family, Instructed on the need for transfer, Demonstrated understanding of instructions. 04:01 Patient left the ED. ll3 Signatures: Berta Stewart RN RN Jakob Mcfadden MD MD cha Gatti, MyKena mw2 Anne Avendano 3 Skyla Snowden RN RN ll3 Antonia Ulrich RN RN mb9 Corrections: (The following items were deleted from the chart) 08/04 20:27 20:27 PMHx: Hypertension; kl kl 20:27 20:27 PMHx: Diabetes - NIDDM; kl kl 20:27 20:27 PMHx: liver cancer; kl kl 20:27 20:27 PSHx: Ligation of fallopian tube; kl kl
--- NOTE | 2022-08-04 23:01 | EDPHYS ---
Physician Documentation [facility] Name: Katie Santiago Age: 52 yrs Sex: Female : 1970 Arrival Date: 08/04/2022 Time: 19:36 Bed 14 Private MD: MIKE Physician Jakob Sanches HPI: 08/04 22:46 This 52 yrs old Female presents to ER via Ambulatory with complaints of PORT yadira CATHETER PROBLEM. 22:46 The patient or guardian reports chest pain that is located primarily in the substernal yadira area, epigastric area, anterior chest wall, bilaterally. Onset: 2 day(s) ago. The patient presents with abdominal pain in the epigastric area, in the upper abdomen, in the lower abdomen, abdominal distention in the upper abdomen, in the lower abdomen. Onset: The symptoms/episode began/occurred 2 day(s) ago. The pain radiates to abdomen. The symptoms radiate to chest and abdomen. Associated signs and symptoms: none. The symptoms are described as constant, crampy. Modifying factors: The symptoms are alleviated by nothing, the symptoms are aggravated by alcohol, nothing. The chest pain is described as aching. Historical: - Allergies: 20:27 No Known Allergies; kl - PMHx: 20:27 liver cancer; Hypertensive disorder; kl - Immunization history:: Adult Immunizations up to date. - Social history:: Smoking status: Patient denies any tobacco usage or history of. - Family history:: not pertinent. ROS: 22:46 Constitutional: Negative for fever, chills, and weight loss, Eyes: Negative for injury, yadira pain, redness, and discharge, ENT: Negative for injury, pain, and discharge, Neck: Negative for injury, pain, and swelling, Respiratory: Negative for shortness of breath, cough, wheezing, and pleuritic chest pain, Back: Negative for injury and pain, : Negative for injury, bleeding, discharge, and swelling, MS/Extremity: Negative for injury and deformity, Skin: Negative for injury, rash, and discoloration, Neuro: Negative for headache, weakness, numbness, tingling, and seizure, Psych: Negative for depression, anxiety, suicide ideation, homicidal ideation, and hallucinations, Allergy/Immunology: Negative for hives, rash, and allergies, Endocrine: Negative for neck swelling, polydipsia, polyuria, polyphagia, and marked weight changes. 22:46 Cardiovascular: Positive for chest pain. 22:46 Abdomen/GI: Positive for abdominal pain, nausea and vomiting, abdominal cramps, abdominal distension. Exam: 22:46 Constitutional: This is a well developed, well nourished patient who is awake, alert, yadira and in no acute distress. Head/Face: Normocephalic, atraumatic. Eyes: Pupils equal round and reactive to light, extra-ocular motions intact. Lids and lashes normal. Conjunctiva and sclera are non-icteric and not injected. Cornea within normal limits. Periorbital areas with no swelling, redness, or edema. ENT: Nares patent. No nasal discharge, no septal abnormalities noted. Tympanic membranes are normal and external auditory canals are clear. Oropharynx with no redness, swelling, or masses, exudates, or evidence of obstruction, uvula midline. Mucous membranes moist. Neck: Trachea midline, no thyromegaly or masses palpated, and no cervical lymphadenopathy. Supple, full range of motion without nuchal rigidity, or vertebral point tenderness. No Meningismus. Chest/axilla: Normal chest wall appearance and motion. Nontender with no deformity. No lesions are appreciated. Respiratory: Lungs have equal breath sounds bilaterally, clear to auscultation and percussion. No rales, rhonchi or wheezes noted. No increased work of breathing, no retractions or nasal flaring. Back: No spinal tenderness. No costovertebral tenderness. Full range of motion. Pelvic Exam: Normal external genitalia. Speculum exam with closed cervical os, no discharge or bleeding noted. Bimanual exam with normal adnexa, no adnexal or cervical motion tenderness. Normal uterus. Female : Normal external genitalia. Skin: Warm, dry with normal turgor. Normal color with no rashes, no lesions, and no evidence of cellulitis. MS/ Extremity: Pulses equal, no cyanosis. Neurovascular intact. Full, normal range of motion. Neuro: Awake and alert, GCS 15, oriented to person, place, time, and situation. Cranial nerves II-XII grossly intact. Motor strength 5/5 in all extremities. Sensory grossly intact. Cerebellar exam normal. Normal gait. Psych: Awake, alert, with orientation to person, place and time. Behavior, mood, and affect are within normal limits. 22:46 Cardiovascular: Rate: tachycardic, actual rate is 101 bpm, Rhythm: regular, Pulses: no pulse deficits are appreciated, Heart sounds: normal, normal S1and S2, no S3 or S4, no murmur, no rub, no gallop, Edema: is not appreciated, JVD: is not appreciated. 22:46 Abdomen/GI: Inspection: distension, that is mild, Bowel sounds: normal, Palpation: mild abdominal tenderness, in the right upper quadrant and left upper quadrant, Liver: no appreciated palpable abnormalities, Hernia: not appreciated. 23:10 ECG was reviewed by the Attending Physician. yadira Vital Signs: 20:24 BP 125 / 91; Pulse 101; Resp 18; Temp 99.4(O); Pulse Ox 99% ; Weight 79.83 kg (R); kl Height 5 ft. 1 in. (154.94 cm); Pain 08/28; 08/05 01:17 BP 103 / 75; Pulse 82; Resp 17; Pulse Ox 98% on R/A; ll3 04:02 BP 93 / 72; Pulse 76; Resp 18; Pulse Ox 98% on R/A; ll3 08/04 20:24 Body Mass Index 33.25 (79.83 kg, 154.94 cm) kl MDM: 08/04 20:23 Patient medically screened. yadira 22:55 Differential diagnosis: abnormal EKG, acute myocardial infarction, acute pericarditis, yadira anxiety, Cholelithiasis gastroesophageal reflux disease (GERD), hiatal hernia, pneumonia, pneumothorax, pulmonary embolus, stable angina, unstable angina, appendicitis, bowel obstruction, Cholelithiasis, Dysmenorrhea, Endometriosis, gastritis, gastroesophageal reflux disease, non-specific abd pain, Peptic Ulcer Disease, Perf. Duodenal Ulcer, Pyelonephritis, Ureterolithiasis, urinary tract infection. HEART Score: History: Slightly Suspicious (0), ECG: Normal (0), Age: > 45 and < 65 years (1), Risk Factors: 1 or 2 risk factors (1), [Hypertension] [Obesity] Troponin: < or = 1 x Normal Limit (0). The patient was given aspirin in the Emergency Department. ELKE Risk Score: TOTAL SCORE = 0. Data reviewed: vital signs, nurses notes, EMS record, lab test result(s), EKG, radiologic studies, CT scan, plain films. Consideration of Admission/Observation Patient was admitted/placed on observation. Escalation of care including admission/observation considered. I considered the following discharge prescriptions or medication management in the emergency department Medications were administered in the Emergency Department. See MAR. Test considered but Not performed: MRI: mri chest. Care significantly affected by the following chronic conditions: Hypertension. 08/04 21:41 Order name: CBC with Diff [facility] 08/04 21:41 Order name: Comprehensive Metabolic Panel 08/04 21:41 Order name: PT-INR [facility] 08/04 21:41 Order name: Lipase [facility] 08/04 21:57 Order name: Protime (+INR); Complete Time: 22:20 EDMS 08/04 22:00 Order name: CBC with Automated Diff; Complete Time: 23:33 EDAL 08/04 22:06 Order name: Troponin High Sensitivity [facility] 08/04 22:06 Order name: BMP [facility] 08/04 22:06 Order name: SARS RAPID [facility] 08/04 22:06 Order name: Magnesium [facility] 08/04 22:10 Order name: Comprehensive Metabolic Panel; Complete Time: 22:20 EDMS 08/04 22:10 Order name: Lipase; Complete Time: 22:20 EDAL 08/04 22:21 Order name: Blood Culture Adult (2) [facility] 08/04 23:00 Order name: Troponin High Sensitivity; Complete Time: 23:33 EDMS 08/04 20:41 Order name: US Extremity Venous W Compression [place]: upper extremities 08/04 21:41 Order name: CT Chest For PE Angio [facility] 08/04 22:06 Order name: CT Abd/Pelvis - IV Contrast Only 08/04 22:31 Order name: US; Complete Time: 22:42 EDAL 08/04 23:00 Order name: Magnesium; Complete Time: 23:33 EDAL 08/04 23:04 Order name: Manual Differential; Complete Time: 23:33 EDMS 08/04 23:10 Order name: Urine Dipstick-Ancillary; Complete Time: 23:33 EDMS 08/04 23:11 Order name: SARS-COV-2 Antigen Rapid; Complete Time: 23:33 EDMS 08/04 23:19 Order name: Flu mw2 08/05 00:30 Order name: Influenza Screen (A ; Complete Time: 01:14 EDMS 08/04 21:41 Order name: Urine Dipstick-Ancillary (obtain specimen); Complete Time: 23:16 [facility] 08/04 22:06 Order name: EKG; Complete Time: 22:07 [facility] 08/04 22:06 Order name: EKG - Nurse/Tech; Complete Time: 23:16 [facility] EC:10 Rate is 78 beats/min. Rhythm is regular. QRS [place] is Normal. MO interval is normal. QRS yadira interval is normal. QT interval is prolonged at 408 msec. No Q waves. T waves are Normal. No ST changes noted. Clinical impression: NSR w/ Non-specific ST/T Changes and No evidence of ischemia. Interpreted by me. Reviewed by me. Administered Medications: 22:09 Drug: NS 0.9% 1000 ml Route: IV; Rate: 1 bolus; Site: left antecubital; [facility] 08/05 00:56 Follow up: Response: No adverse reaction; IV Status: Completed infusion; IV Intake: ll3 1000ml 08/04 22:55 Drug: Pepcid (famotidine) 20 mg Route: IVP; Site: left antecubital; 3 08/05 00:57 Follow up: Response: No adverse reaction [facility] 08/04 22:55 Drug: Cefepime 1 grams Route: IVPB; Rate: 200 ml/hr; Infused Over: 30 mins; Site: left ll3 antecubital; 08/05 00:57 Follow up: Response: No adverse reaction; IV Status: Completed infusion; IV Intake: ll3 100ml 08/04 22:56 Drug: fentaNYL (PF) 50 mcg Route: IVP; Site: left antecubital; 3 08/05 00:57 Follow up: Response: No adverse reaction [facility] 08/04 22:56 Drug: Zofran (Ondansetron) 4 mg Route: IVP; Site: left antecubital; 3 08/05 00:57 Follow up: Response: No adverse reaction [facility] 08/04 23:48 Drug: Aspirin Chewable Tablet 81 mg Route: PO; 3 08/05 00:57 Follow up: Response: No adverse reaction 3 00:56 Drug: fentaNYL (PF) 50 mcg Route: IVP; Site: left antecubital; ll3 04:00 Follow up: Response: No adverse reaction 3 00:56 Drug: Zofran (Ondansetron) 4 mg Route: IVP; Site: left antecubital; ll3 04:00 Follow up: Response: No adverse reaction ll3 03:39 Drug: Dilaudid (HYDROmorphone) 1 mg Route: IVP; Site: left antecubital; ll3 04:00 Follow up: Response: No adverse reaction; Marked relief of symptoms ll3 03:39 Drug: Phenergan (promethazine) 12.5 mg Route: IVP; Site: left antecubital; ll3 03:59 Follow up: Response: No adverse reaction ll3 Disposition Summary: 08/04/22 23:00 Transfer Ordered Transfer Location: [facility] yadira Reason: Higher level of care yadira Condition: Fair yadira Problem: new yadira Symptoms: have improved yadira Accepting Physician: to [facility](08/05/22 04:01) ll3 Diagnosis - Essential (primary) hypertension yadira - Chest pain, unspecified yadira - Abdominal tenderness yadira - Abnormal findings on diagnostic imaging of liver and biliary tract - yadira chlangiocarcinoma - Bandemia yadira - Neutropenia, unspecified yadira Forms: - Medication Reconciliation Form yadira - SBAR form yadira Signatures: Dispatcher [employer] EDBerta Watkins RN RN kl Anderson, Corey, MD MD cha Loubet, Lynsea, RN RN ll3 Corrections: (The following items were deleted from the chart) 08/04 20:27 20:27 PMHx: Hypertension; kl kl 20:27 20:27 PMHx: Diabetes - NIDDM; kl kl 20:27 20:27 PMHx: liver cancer; kl kl 20:27 20:27 PSHx: Ligation of fallopian tube; kl kl 23:34 23:00 to [facility], [facility] yadira 08/05 04:01 08/04 23:34 to [facility] ll3
[2022-08-04 23:04] LABS: Blood Morphology Comment NOTED (NOT SEEN); Ovalocytes 1+; Platelet Estimate ADEQ; Polychromasia SLIGHT; Teardrop Cell 1+
[2022-08-04 23:10] LABS: Urine Blood Negative (Negative); Urine Glucose Negative (Negative); Urine Protein Negative (Negative); Urine Specific Gravity <=1.005 (1.005-1.030)
[2022-08-04 23:11] LABS: SARS-CoV-2 Antigen Rapid Res Negative (Negative)
[2022-08-04] MEDS ORDERED: ASPIRIN 81 MG CHEWABLE TABLET ONE (23:45)
[2022-08-05] MEDS ORDERED: ONDANSETRON 4 MG/2 ML VIAL ONE (00:51)
[2022-08-05] MEDS ORDERED: FENTANYL CITR 100 MCG/2 ML ONE (00:51)
[2022-08-05] MEDS ORDERED: PROMETHAZINE INJ 25 MG/ML AMP ONE (03:33)
[2022-08-05] MEDS ORDERED: HYDROMORPHONE HCL 1 MG/ML INJ ONE (03:33)
[2022-08-05 04:16] VITALS: TEMP 99.4
[2022-08-05 04:22] VITALS: BP 103/75; O2SAT 98
--- NOTE | 2022-08-05 12:24 | RAD REPORT ---
EXAM DESCRIPTION: CT - Abdomen Pelvis W Contrast - 08/05/2022 5:32 am CLINICAL HISTORY: CHEST PAIN. Abdominal pain. COMPARISON: CT abdomen/pelvis from July 07, 2021. CT of the abdomen and pelvis from May 29. TECHNIQUE: CTA of the chest, and CT of the abdomen/pelvis was performed following intravenous admini stration of iodinated contrast. Axial soft tissue and lung window, and coronal and sagittal soft tiss ue window reconstructions were created and sent to PACS. 3D postprocessing was performed on an independent workstation, with images sent to PACS for subsequen t review. This exam was performed according to our departmental dose-optimization program, which includes autom ated exposure control, adjustment of the mA and/or kV according to patient size and/or use of iterati ve reconstruction technique. FINDINGS: Vascular: The pulmonary arteries are well-opacified to the segmental level. No CT evidence of acute pulmonary thromboembolism. No evidence of aortic aneurysm or dissection. Lungs and pleura: No pulmonary consolidation. No pleural effusion. No pneumothorax. Mediastinum and neck: No mediastinal lymphadenopathy by CT size criteria. Unremarkable appearance of the thyroid gland. Cardiac: No cardiomegaly or pericardial effusion. Hepatobiliary: Faint heterogeneous hypodense mass in the left hepatic lobe measuring approximately 4. 6 x 6.1 cm. This has decreased in size since May 2021 and likely also since June 2021 (the ma ss was ill-defined on that exam). Smaller faint hypodense mass in the right hepatic lobe measures 1.1 cm. The portal veins are patent. Common bile duct stent in place extending into the common hepatic d uct and right intrahepatic bile duct. Suspected heterogeneous enhancing material within the proximal portion of the stent which is within the right hepatic lobe (axial series 501 image 20). Small amount of gas within the biliary system and gallbladder. No biliary ductal dilatation identified. Hepatomeg joan versus Frankie's lobe configuration measuring 22.3 cm in length. Pancreas: Unremarkable. Spleen: Unremarkable. Gastrointestinal: No evidence of bowel obstruction or perienteric inflammation. The appendix is donny l. Moderate left colonic diverticulosis. Small amount of fecal material throughout the colon and rect um. Adrenals: No abnormality identified in either adrenal gland. Renal: No concerning parenchymal abnormality in either kidney. No hydronephrosis or urolithiasis. Bladder/Reproductive: Unremarkable appearance of the urinary bladder by CT technique. Vascular/Lymphatics: No lymphadenopathy identified by CT size criteria. Abdominal aorta is normal in caliber. Musculoskeletal: No concerning osseous lesion identified. Fluid / peritoneum: No significant free fluid. No free intraperitoneal air identified. IMPRESSION: 1. No CTA evidence of acute pulmonary thromboembolism. 2. No acute abnormality identified in the chest. 3. Faint mass in the left hepatic lobe, likely malignant. Biliary stent in place with suspected enh ancing material within the proximal aspect of the stent. Differential includes infiltration by the ad jacent malignancy. No biliary ductal dilatation. Electronically signed by: Precious Melo MD 08/05/2022 12:18 AM [employer] SCIENCE [employer] Due to temporary technical issues with the PACS/Fluency reporting system, reports are being signed by the in house radiologists without review as a courtesy to insure prompt reporting. The interpreting radiologist is fully responsible for the content of the report.
--- NOTE | 2022-08-05 12:58 | EKG ---
Test Date: 2022-08-04 Test Time: 23:03:06 Outpatient Pharmacy Manager: NATTY MEASUREMENT RESULTS: Intervals: Rate: 78 IA: 160 QRSD: 88 QT: 408 QTc: 465 [place]: P: 23 IA: 160 QRS: 75 T: 56 INTERPRETIVE STATEMENTS: Normal sinus rhythm Nonspecific T wave abnormality Prolonged QT Abnormal ECG Compared to ECG 07/06/2021 23:47:32 T-wave abnormality now present Prolonged QT interval now present Sinus tachycardia no longer present Left-axis deviation no longer present Electronically Signed On 08-05-22 12:57:28 CAKE WRAPPER by Toby Castro
== END 2022-08-05 04:01 | disposition short-term general hospital (02) ==
LOC: ER 19:35
DX: R07.89 Other chest pain (principal); I10 Essential (primary) hypertension; D72.825 Bandemia; R10.819 Abdominal tenderness, unspecified site; C22.1 Intrahepatic bile duct carcinoma; Z85.05 Personal history of malignant neoplasm of liver; Z20.822 Contact with and (suspected) exposure to COVID-19
CPT/HCPCS: 93005; 87040 ×2; 85025; 36415; 83735; 85610; 81003; 84484; 83690; 80053; 87804 ×2; 71275; 74177; 93970; 87811; Q9967; J2550; J3010 ×2; J1170; J7030; J2405 ×2; J0692

== ENCOUNTER 2023-01-30 20:05 | Emergency (ER) | payer OTHER ==
--- OUTSIDE RECORDS SUMMARY | 2023-01-30 20:11 | XMS REPORT | Clinical Summary ---
:1970 Author Organization [facility] MD [facility] Address [address] [place] [address] Care Team Providers Name Role Phone Melanie Nuñez Unavailable Allergies Not on File Medications Not on file Active Problems Not on file Social History Tobacco Use Types Packs/Day Years Used Date Smoking Tobacco: Never Assessed Sex Assigned at Date Recorded Not on file Last Filed Vital Signs Not on file Plan of Treatment Not on file Results Not on fileafter 01/30/2022 Insurance Payer Benefit Plan / Subscriber ID Effective Dates Phone Addre ss Type Group [employer] MANAGED A[employer] O [id number] 2018-Esteban PIPER X [id number] [facility] [place] [address] Care Teams Taxi Proprietor Relationship Specialty Start Date End Date Melanie Nuñez PCP - External Referring Family Practice 05/30/[address] [place] [id number]
--- OUTSIDE RECORDS SUMMARY | 2023-01-30 20:30 | XMS REPORT | Continuity of Care Document ---
:1970 Author Organization [facility] t Address [address] [facility] [address] [place] [id number] Care Team Providers Name Role Phone No, Pcp [facility] Primary Care Physician Unavailable SYSTEM, PROVIDER NOT IN Attending Clinician Unavailable KYLER ABREU Attending Clinician Unavailable Armando Ginny Jeffrey Attending Clinician Unavailable Abner Painter Attending Clinician [phone] Anju Jin MD Attending Clinician [phone] ANJU JIN Attending Clinician Unavailable Kyler Abreu MD Attending Clinician Basilia Mohan MD Attending Clinician Nando GALINDO, Manjit Stanton Attending Clinician [phone] Brittny Hall MD Attending Clinician BRITTNY HALL Attending Clinician Unavailable Rianna GALINDO, Steven Edmonds Attending Clinician Barbara Yao MD Attending Clinician Jose CASTILLO, Kimmie Padilla Attending Clinician CARINE KNIGHT ABA Attending Clinician Unavailable Eugene GALINDO, Carine Miguel Attending Clinician [phone] 1.5, [facility] Attending Clinician Unavailable 1, [facility] Room Attending Clinician Unavailable Philip GALINDO, Priscilla Cormier Attending Clinician Griselda Mcclelland RN Attending Clinician Unavailable David Brunson Attending Clinician Unavailable Ebony Miranda Attending Clinician Unavailable Wilber GALINDO, Edson Attending Clinician Michael COSTA, Alicia Attending Clinician Unavailable Drea GALINDO, Bob Attending Clinician Mary GALINDO, Alfred Attending Clinician LUPILLO GODDARD Attending Clinician Unavailable Reynaldo GALINDO, Jenn Moreno Attending Clinician [phone] Akila GALINDO, Anna Hicks Attending Clinician Master GALINDO, Lisa Attending Clinician Lupillo Goddard MD Attending Clinician Harrison GALINDO, Halie Attending Clinician Johanne GALINDO, Oly Abel Attending Clinician [phone] EDSON VALLE Attending Clinician Unavailable Hermann GALINDO, Katya Arreguin Attending Clinician [phone] Luiz GALINDO, Goran Limon Attending Clinician Olga GALINDO, Jessica Valentine Attending Clinician [phone] Jerrell GALVAN, Yesenia Chan Attending Clinician [phone] Gerri Bowers MD, Vaibhav Prescott Attending Clinician Cherry Cuevas CRNA Attending Clinician [phone] Virtual, Surgeon Attending Clinician Unavailable Antony GALINDOSarkis Attending Clinician MANJIT WHITAKER Admitting Clinician Unavailable BOB SHEPARD Admitting Clinician Unavailable ANNA WILBURN Admitting Clinician Unavailable GORAN DEE Admitting Clinician Unavailable Payers Payer Name Policy Type Policy Number Effective Date Expiration Date Stefany TA O POS [id number] 2018 00:00:00 QPOS Problems Condition Condition Condition Status Onset Resolution Last Treating Co mments Source Name Details Category Date Date Treatment Clinician Date Biliary Biliary Disease Active [facility] Chest pain Chest pain Disease [facility] Liver Liver Disease Active Last [facility] Plan: Medical [address] [place] [address] g of this note might be different [...] the marily. Acute on Acute on Disease Recurre [facility] chronic chronic [facility] renal renal 00:00: Medical failure failure 00 Center Abdominal Abdominal Disease Active 2020-[address] [facility] pain pain 2-14 [facility] Cholangioc Cholangioc Disease Recurre Last [facility] & Plan: [facility] g of this note might be different from the original. Liver lesion has decreased in size, continue chemother apy regimen as per Oncology. Allergies, Adverse Reactions, Alerts Allergy Allergy Status Severity Reaction(s) Onset Inactive Treating Comm ents Source Name Type Date Date Clinician Seasonal Allergy Active Other (See Sneezing [facility] Allergie to Comments) [facility] Medical e 00 Center SEASONAL Allergy Active Other [facility] -17 S 00:00: 00 NO KNOWN Allergy Active [facility] Social History Social Habit Start Date Stop Date Quantity Comments Source Exposure to 2022-10-03 2022-10-13 Not sure [facility] SARS-CoV-2 00:00:00 10:28:00 Medical Center (event) Alcohol intake 2022-10-13 2022-10-[address] [facility] 00:00:00 00:00:00 non-drinker of Medical Ce nter alcohol (finding) Tobacco use and 2021-07-10 2021-07-10 Smokeless tobacco [facility] exposure [facility]00:00 non-user Medical Center Sex Assigned At [birth year] [facility] [place] [facility] Smoking Status Start Date Stop Date Source [place] smoked [place] [facility] Ordered Filled Start Stop Current Ordering Indication Dosage Frequency Signature Comments Components Source Medication Medication Date Date Medication? Clinician (SIG) Name Name lisinopriL Yes 20mg QD Take 1 [facility] (PRINIVIL,Z 4-26 tablet (20 Louise kes ESTRIL) 20 17:28: mg total) Me dical MG tablet 04 by mouth Center in the morning. HYDROcodone Yes 1{tbl} Take [address] -acetaminop 4-26 tablet by Marielle es hen (NORCO 17:28: mouth Medica l 5-325) 04 every 6 Center 5-325 mg (six) per tablet hours as needed for Pain. Max Daily Amount: 4 tablets promethazin Yes 25mg Take [address] [facility] e 4-26 tablet (25 [facility] (PHENERGAN) 17:28: mg total) M edical 25 MG 04 by mouth Center tablet every 6 (six) hours as needed for Nausea. lisinopriL Yes 20mg QD Take 1 [facility] (PRINIVIL,Z 4-26 tablet (20 Louise kes ESTRIL) 20 17:28: mg total) Me dical MG tablet 04 by mouth Center in the morning. HYDROcodone 0 Yes 1{tbl} Take [address] -acetaminop 4-26 tablet by Marielle es hen (NORCO 17:28: mouth Medica l 5-325) 04 every 6 Center 5-325 mg (six) per tablet hours as needed for Pain. Max Daily Amount: 4 tablets promethazin 2023-0 Yes 25mg Take [address] [facility] e 4-26 tablet (25 [facility] (PHENERGAN) 17:28: mg total) M edical 25 MG 04 by mouth Center tablet every 6 (six) hours as needed for Nausea. lisinopriL 2023-0 Yes 20mg QD Take 1 [facility] (PRINIVIL,Z 4-26 tablet (20 Louise kes ESTRIL) 20 17:28: mg total) Me dical MG tablet 04 by mouth Center in the morning. HYDROcodone 2023-0 Yes 1{tbl} Take [address] -acetaminop 4-26 tablet by Marielle es hen (NORCO 17:28: mouth Medica l 5-325) 04 every 6 Center 5-325 mg (six) per tablet hours as needed for Pain. Max Daily Amount: 4 tablets promethazin 2023-0 Yes 25mg Take [address] [facility] e 4-26 tablet (25 [facility] (PHENERGAN) 17:28: mg total) M edical 25 MG 04 by mouth Center tablet every 6 (six) hours as needed for Nausea. lisinopriL 2023-0 Yes 20mg QD Take 1 [facility] (PRINIVIL,Z 4-26 tablet (20 Louise kes ESTRIL) 20 17:28: mg total) Me dical MG tablet 04 by mouth Center in the morning. HYDROcodone 2023-0 Yes 1{tbl} Take [address] -acetaminop 4-26 tablet by Marielle es hen (NORCO 17:28: mouth Medica l 5-325) 04 every 6 Center 5-325 mg (six) per tablet hours as needed for Pain. Max Daily Amount: 4 tablets promethazin 2023-0 Yes 25mg Take [address] [facility] e 4-26 tablet (25 [facility] (PHENERGAN) 17:28: mg total) M edical 25 MG 04 by mouth Center tablet every 6 (six) hours as needed for Nausea. lisinopriL 2023-0 Yes 20mg QD Take 1 [facility] (PRINIVIL,Z 4-26 tablet (20 Louise kes ESTRIL) 20 17:28: mg total) Me dical MG tablet 04 by mouth Center in the morning. HYDROcodone 2023-0 Yes 1{tbl} Take [address] -acetaminop 4-26 tablet by Marielle sarita zaman (NORCO 17:28: mouth Medica l 5-325) 04 every 6 Center 5-325 mg (six) per tablet hours as needed for Pain. Max Daily Amount: 4 tablets promethazin 2023-0 Yes 25mg Take [address] [facility] e 4-26 tablet (25 [facility] (PHENERGAN) 17:28: mg total) M edical 25 MG 04 by mouth Center tablet every 6 (six) hours as needed for Nausea. metFORMIN 2023-0 Yes 500mg Take 1 [facility] (GLUMETZA) 4-25 tablet [facility] 500 MG 10:42: (500 mg Medical (MOD) 24 hr 34 total) by Prerna ter tablet mouth daily with breakfast Dose unknown . ibuprofen 2023-0 Yes 600mg Take 1 [facility] (ADVIL,MOTR 4-25 tablet [facility] IN) 600 MG 10:42: (600 mg Medi farrukh tablet 34 total) by Center mouth every 6 (six) hours as needed for Pain. gabapentin 2023-0 Yes 100mg Q.[id number] Take [address] (NEURONTIN) 4-25 [id number] capsule [facility] 100 MG 10:42: 3D (100 mg Medical capsule 34 total) by Center mouth in the morning and 1 capsule (100 mg total) at noon and 1 capsule (100 mg total) in the evening. metFORMIN 2023-0 Yes 500mg Take 1 [facility] (GLUMETZA) 4-25 tablet [facility] 500 MG 10:42: (500 mg Medical (MOD) 24 hr 34 total) by Prerna ter tablet mouth daily with breakfast Dose unknown . ibuprofen 2023-0 Yes 600mg Take 1 [facility] (ADVIL,MOTR 4-25 tablet [facility] IN) 600 MG 10:42: (600 mg Medi farrukh tablet 34 total) by Center mouth every 6 (six) hours as needed for Pain. gabapentin 2023-0 Yes 100mg Q.[id number] Take [address] (NEURONTIN) 4-25 [id number] capsule [facility] 100 MG 10:42: 3D (100 mg Medical capsule 34 total) by Center mouth in the morning and 1 capsule (100 mg total) at noon and 1 capsule (100 mg total) in the evening. metFORMIN 2023-0 Yes 500mg Take 1 [facility] (GLUMETZA) 4-25 tablet [facility] 500 MG 10:42: (500 mg Medical (MOD) 24 hr 34 total) by Prerna ter tablet mouth daily with breakfast Dose unknown . ibuprofen 2023-0 Yes 600mg Take 1 [facility] (ADVIL,MOTR 4-25 tablet [facility] IN) 600 MG 10:42: (600 mg Medi farrukh tablet 34 total) by Center mouth every 6 (six) hours as needed for Pain. gabapentin 2023-0 Yes 100mg Q.[id number] Take [address] (NEURONTIN) 4-25 [id number] capsule [facility] 100 MG 10:42: 3D (100 mg Medical capsule 34 total) by Center mouth in the morning and 1 capsule (100 mg total) at noon and 1 capsule (100 mg total) in the evening. metFORMIN 2023-0 Yes 500mg Take 1 [facility] (GLUMETZA) 4-25 tablet [facility] 500 MG 10:42: (500 mg Medical (MOD) 24 hr 34 total) by Prerna ter tablet mouth daily with breakfast Dose unknown . ibuprofen 2023-0 Yes 600mg Take 1 [facility] (ADVIL,MOTR 4-25 tablet [facility] IN) 600 MG 10:42: (600 mg Medi farrukh tablet 34 total) by Center mouth every 6 (six) hours as needed for Pain. gabapentin 2023-0 Yes 100mg Q.[id number] Take [address] (NEURONTIN) 4-25 [id number] capsule [facility] 100 MG 10:42: 3D (100 mg Medical capsule 34 total) by Center mouth in the morning and 1 capsule (100 mg total) at noon and 1 capsule (100 mg total) in the evening. metFORMIN 2023-0 Yes 500mg Take 1 [facility] (GLUMETZA) 4-25 tablet [facility] 500 MG 10:42: (500 mg Medical (MOD) 24 hr 34 total) by Prerna ter tablet mouth daily with breakfast Dose unknown . ibuprofen 2023-0 Yes 600mg Take 1 [facility] (ADVIL,MOTR 4-25 tablet [facility] IN) 600 MG 10:42: (600 mg Medi farrukh tablet 34 total) by Center mouth every 6 (six) hours as needed for Pain. gabapentin 2023-0 Yes 100mg Q.[id number] Take [address] [facility] (NEURONTIN) 4-25 [id number] capsule [facility] 100 MG 10:42: 3D (100 mg Medical capsule 34 total) by Center mouth in the morning and 1 capsule (100 mg total) at noon and 1 capsule (100 mg total) in the evening. ibuprofen 2023-0 Yes 600mg Take [address] [facility] [address] (ADVIL,MOTR 2-19 mg by [facility] IN) 600 MG 09:30: mouth Medica l tablet 04 every 6 Center (six) hours as needed for Pain. gabapentin 2023-0 Yes 100mg Q.[id number] Take [address] (NEURONTIN) 2-19 [id number] mg by L ukes 100 MG 09:30: 3D mouth 3 Medical capsule 04 (three) Center times daily. ibuprofen 2023-0 Yes 600mg Take [address] (ADVIL,MOTR 2-19 mg by [facility] IN) 600 MG 09:30: mouth Medica l tablet 04 every 6 Center (six) hours as needed for Pain. gabapentin 2023-0 Yes 100mg Q.[id number] Take [address] (NEURONTIN) 2-19 [id number] mg by L ukes 100 MG 09:30: 3D mouth 3 Medical capsule 04 (three) Center times daily. ibuprofen 2023-0 Yes 600mg Take [address] [facility] (ADVIL,MOTR 2-19 mg by [facility] IN) 600 MG 09:30: mouth Medica l tablet 04 every 6 Center (six) hours as needed for Pain. gabapentin 2023-0 Yes 100mg Q.[id number] Take [address] (NEURONTIN) 2-19 [id number] mg by L ukes 100 MG 09:30: 3D mouth 3 Medical capsule 04 (three) Center times daily. ibuprofen 2023-0 Yes 600mg Take [address] (ADVIL,MOTR 2-19 mg by [facility] IN) 600 MG 09:30: mouth Medica l tablet 04 every 6 Center (six) hours as needed for Pain. gabapentin 2023-0 Yes 100mg Q.[id number] Take [address] (NEURONTIN) 2-19 [id number] mg by L ukes 100 MG 09:30: 3D mouth 3 Medical capsule 04 (three) Center times daily. ibuprofen 2023-0 Yes 600mg Take [address] [facility] (ADVIL,MOTR 2-19 mg by [facility] IN) 600 MG 09:30: mouth Medica l tablet 04 every 6 Center (six) hours as needed for Pain. gabapentin 2023-0 Yes 100mg Q.[id number] Take [address] (NEURONTIN) 2-19 [id number] mg by L ukes 100 MG 09:30: 3D mouth 3 Medical capsule 04 (three) Center times daily. ibuprofen 2023-0 Yes 600mg Take [address] [facility] [address] (ADVIL,MOTR 2-19 mg by [facility] IN) 600 MG 09:30: mouth Medica l tablet 04 every 6 Center (six) hours as needed for Pain. gabapentin 2023-0 Yes 100mg Q.[id number] Take [address] [facility] (NEURONTIN) 2-19 [id number] mg by L ukes 100 MG 09:30: 3D mouth 3 Medical capsule 04 (three) Center times daily. ibuprofen 2023-0 Yes 600mg Take [address] [facility] [address] (ADVIL,MOTR 2-19 mg by [facility] IN) 600 MG 09:30: mouth Medica l tablet 04 every 6 Center (six) hours as needed for Pain. gabapentin 2023-0 Yes 100mg Q.[id number] Take [address] [facility] (NEURONTIN) 2-19 [id number] mg by L ukes 100 MG 09:30: 3D mouth 3 Medical capsule 04 (three) Center times daily. ibuprofen 2023-0 Yes 600mg Take [address] [facility] [address] (ADVIL,MOTR 2-19 mg by [facility] IN) 600 MG 09:30: mouth Medica l tablet 04 every 6 Center (six) hours as needed for Pain. gabapentin 2023-0 Yes 100mg Q.[id number] Take [address] [facility] (NEURONTIN) 2-19 [id number] mg by L ukes 100 MG 09:30: 3D mouth 3 Medical capsule 04 (three) Center times daily. ibuprofen 2023-0 Yes 600mg Take [address] [facility] [address] (ADVIL,MOTR 2-19 mg by [facility] IN) 600 MG 09:30: mouth Medica l tablet 04 every 6 Center (six) hours as needed for Pain. gabapentin 2023-0 Yes 100mg Q.[id number] Take [address] [facility] [address] (NEURONTIN) 2-19 [id number] mg by L ukes 100 MG 09:30: 3D mouth 3 Medical capsule 04 (three) Center times daily. ibuprofen 2023-0 Yes 600mg Take [address] [facility] [address] (ADVIL,MOTR 2-19 mg by [facility] IN) 600 MG 09:30: mouth Medica l tablet 04 every 6 Center (six) hours as needed for Pain. gabapentin 2023-0 Yes 100mg Q.[id number] Take [address] [facility] [address] (NEURONTIN) 2-19 [id number] mg by L ukes 100 MG 09:30: 3D mouth 3 Medical capsule 04 (three) Center times daily. ibuprofen 2023-0 Yes 600mg Take [address] [facility] [address] (ADVIL,MOTR 2-19 mg by [facility] IN) 600 MG 09:30: mouth Medica l tablet 04 every 6 Center (six) hours as needed for Pain. gabapentin 2023-0 Yes 100mg Q.[id number] Take [address] [facility] [address] (NEURONTIN) 2-19 [id number] mg by L ukes 100 MG 09:30: 3D mouth 3 Medical capsule 04 (three) Center times daily. ibuprofen 2023-0 Yes 600mg Take [address] [facility] [address] (ADVIL,MOTR 2-19 mg by [facility] IN) 600 MG 09:30: mouth Medica l tablet 04 every 6 Center (six) hours as needed for Pain. gabapentin 2023-0 Yes 100mg Q.[id number] Take [address] [facility] (NEURONTIN) 2-19 [id number] mg by L ukes 100 MG 09:30: 3D mouth 3 Medical capsule 04 (three) Center times daily. ibuprofen 2023-0 Yes 600mg Take [address] [facility] [address] (ADVIL,MOTR 2-19 mg by [facility] IN) 600 MG 09:30: mouth Medica l tablet 04 every 6 Center (six) hours as needed for Pain. gabapentin 2023-0 Yes 100mg Q.[id number] Take [address] (NEURONTIN) 2-19 [id number] mg by L ukes 100 MG 09:30: 3D mouth 3 Medical capsule 04 (three) Center times daily. ibuprofen 2023-0 Yes 600mg Take [address] [facility] [address] (ADVIL,MOTR 2-19 mg by [facility] IN) 600 MG 09:30: mouth Medica l tablet 04 every 6 Center (six) hours as needed for Pain. gabapentin 2023-0 Yes 100mg Q.[id number] Take [address] (NEURONTIN) 2-19 [id number] mg by L ukes 100 MG 09:30: 3D mouth 3 Medical capsule 04 (three) Center times daily. ibuprofen 2023-0 Yes 600mg Take [address] [facility] [address] (ADVIL,MOTR 2-19 mg by [facility] IN) 600 MG 09:30: mouth Medica l tablet 04 every 6 Center (six) hours as needed for Pain. gabapentin 2023-0 Yes 100mg Q.[id number] Take [address] (NEURONTIN) 2-19 [id number] mg by L ukes 100 MG 09:30: 3D mouth 3 Medical capsule 04 (three) Center times daily. ibuprofen 2023-0 Yes 600mg Take [address] [facility] [address] (ADVIL,MOTR 2-19 mg by [facility] IN) 600 MG 09:30: mouth Medica l tablet 04 every 6 Center (six) hours as needed for Pain. gabapentin 2023-0 Yes 100mg Q.[id number] Take [address] [facility] (NEURONTIN) 2-19 [id number] mg by L ukes 100 MG 09:30: 3D mouth 3 Medical capsule 04 (three) Center times daily. ibuprofen 2023-0 Yes 600mg Take [address] [facility] (ADVIL,MOTR 2-19 mg by [facility] IN) 600 MG 09:30: mouth Medica l tablet 04 every 6 Center (six) hours as needed for Pain. gabapentin 2023-0 Yes 100mg Q.[id number] Take [address] [facility] (NEURONTIN) 2-19 [id number] mg by L ukes 100 MG 09:30: 3D mouth 3 Medical capsule 04 (three) Center times daily. ibuprofen 2023-0 Yes 600mg Take [address] [facility] [address] (ADVIL,MOTR 2-19 mg by [facility] IN) 600 MG 09:30: mouth Medica l tablet 04 every 6 Center (six) hours as needed for Pain. gabapentin 2023-0 Yes 100mg Q.[id number] Take [address] (NEURONTIN) 2-19 [id number] mg by L ukes 100 MG 09:30: 3D mouth 3 Medical capsule 04 (three) Center times daily. ibuprofen 2023-0 Yes 600mg Take [address] [facility] [address] (ADVIL,MOTR 2-19 mg by [facility] IN) 600 MG 09:30: mouth Medica l tablet 04 every 6 Center (six) hours as needed for Pain. gabapentin 2023-0 Yes 100mg Q.[id number] Take [address] (NEURONTIN) 2-19 [id number] mg by L ukes 100 MG 09:30: 3D mouth 3 Medical capsule 04 (three) Center times daily. ibuprofen 2023-0 Yes 600mg Take [address] [facility] [address] (ADVIL,MOTR 2-19 mg by [facility] IN) 600 MG 09:30: mouth Medica l tablet 04 every 6 Center (six) hours as needed for Pain. gabapentin 2023-0 Yes 100mg Q.[id number] Take [address] [facility] [address] (NEURONTIN) 2-19 [id number] mg by L ukes 100 MG 09:30: 3D mouth 3 Medical capsule 04 (three) Center times daily. metFORMIN 2023-0 Yes 500mg Take [address] [facility] (GLUMETZA) 2-18 mg by [facility] 500 MG 09:51: mouth Medical (MOD) 24 hr 55 daily with Ce nter tablet breakfast Dose unknown . metFORMIN 2023-0 Yes 500mg Take [address] (GLUMETZA) 2-18 mg by [facility] 500 MG 09:51: mouth Medical (MOD) 24 hr 55 daily with Ce nter tablet breakfast Dose unknown . metFORMIN 2023-0 Yes 500mg Take [address] (GLUMETZA) 2-18 mg by [facility] 500 MG 09:51: mouth Medical (MOD) 24 hr 55 daily with Ce nter tablet breakfast Dose unknown . metFORMIN 2023-0 Yes 500mg Take [address] (GLUMETZA) 2-18 mg by [facility] 500 MG 09:51: mouth Medical (MOD) 24 hr 55 daily with Ce nter tablet breakfast Dose unknown . metFORMIN 2023-0 Yes 500mg Take [address] (GLUMETZA) 2-18 mg by [facility] 500 MG 09:51: mouth Medical (MOD) 24 hr 55 daily with Ce nter tablet breakfast Dose unknown . metFORMIN 2023-0 Yes 500mg Take [address] (GLUMETZA) 2-18 mg by [facility] 500 MG 09:51: mouth Medical (MOD) 24 hr 55 daily with Ce nter tablet breakfast Dose unknown . metFORMIN 2023-0 Yes 500mg Take [address] (GLUMETZA) 2-18 mg by [facility] 500 MG 09:51: mouth Medical (MOD) 24 hr 55 daily with Ce nter tablet breakfast Dose unknown . metFORMIN 2023-0 Yes 500mg Take [address] (GLUMETZA) 2-18 mg by [facility] 500 MG 09:51: mouth Medical (MOD) 24 hr 55 daily with Ce nter tablet breakfast Dose unknown . metFORMIN 2023-0 Yes 500mg Take [address] (GLUMETZA) 2-18 mg by [facility] 500 MG 09:51: mouth Medical (MOD) 24 hr 55 daily with Ce nter tablet breakfast Dose unknown . metFORMIN 2023-0 Yes 500mg Take [address] (GLUMETZA) 2-18 mg by [facility] 500 MG 09:51: mouth Medical (MOD) 24 hr 55 daily with Ce nter tablet breakfast Dose unknown . metFORMIN 2023-0 Yes 500mg Take [address] (GLUMETZA) 2-18 mg by [facility] 500 MG 09:51: mouth Medical (MOD) 24 hr 55 daily with Ce nter tablet breakfast Dose unknown . metFORMIN 2023-0 Yes 500mg Take [address] (GLUMETZA) 2-18 mg by [facility] 500 MG 09:51: mouth Medical (MOD) 24 hr 55 daily with Ce nter tablet breakfast Dose unknown . metFORMIN 2023-0 Yes 500mg Take [address] (GLUMETZA) 2-18 mg by [facility] 500 MG 09:51: mouth Medical (MOD) 24 hr 55 daily with Ce nter tablet breakfast Dose unknown . metFORMIN 2023-0 Yes 500mg Take [address] (GLUMETZA) 2-18 mg by [facility] 500 MG 09:51: mouth Medical (MOD) 24 hr 55 daily with Ce nter tablet breakfast Dose unknown . metFORMIN 2023-0 Yes 500mg Take [address] (GLUMETZA) 2-18 mg by [facility] 500 MG 09:51: mouth Medical (MOD) 24 hr 55 daily with Ce nter tablet breakfast Dose unknown . metFORMIN 2023-0 Yes 500mg Take [address] (GLUMETZA) 2-18 mg by [facility] 500 MG 09:51: mouth Medical (MOD) 24 hr 55 daily with Ce nter tablet breakfast Dose unknown . metFORMIN 2023-0 Yes 500mg Take [address] (GLUMETZA) 2-18 mg by [facility] 500 MG 09:51: mouth Medical (MOD) 24 hr 55 daily with Ce nter tablet breakfast Dose unknown . metFORMIN 2023-0 Yes 500mg Take [address] (GLUMETZA) 2-18 mg by [facility] 500 MG 09:51: mouth Medical (MOD) 24 hr 55 daily with Ce nter tablet breakfast Dose unknown . metFORMIN 2023-0 Yes 500mg Take [address] (GLUMETZA) 2-18 mg by [facility] 500 MG 09:51: mouth Medical (MOD) 24 hr 55 daily with Ce nter tablet breakfast Dose unknown . metFORMIN 2023-0 Yes 500mg Take [address] (GLUMETZA) 2-18 mg by [facility] 500 MG 09:51: mouth Medical (MOD) 24 hr 55 daily with Ce nter tablet breakfast Dose unknown . lisinopriL 2023-0 2023- No 20mg QD Take [address] [facility] [address] (PRINIVIL,Z 2-18 02-18 by mouth Marielle es ESTRIL) 20 08:18: 00:00 daily. Medi farrukh MG tablet 07 :00 [place] lisinopriL 2023-0 2023- No 20mg QD Take [address] [facility] [address] (PRINIVIL,Z 2-18 02-18 by mouth Marielle es ESTRIL) 20 08:18: 00:00 daily. Medi farrukh MG tablet 07 :00 [place] lisinopriL 2023-0 2023- No 20mg QD Take [address] [facility] [address] (PRINIVIL,Z 2-18 02-18 by mouth Marielle es ESTRIL) 20 08:18: 00:00 daily. Medi farrukh MG tablet 07 :00 [place] lisinopriL 2023-0 2023- No 20mg QD Take [address] [facility] [address] (PRINIVIL,Z 2-18 02-18 by mouth Marielle es ESTRIL) 20 08:18: 00:00 daily. Medi farrukh MG tablet 07 :00 [place] lisinopriL 2023-0 2023- No 20mg QD Take [address] [facility] [address] (PRINIVIL,Z 2-18 02-18 by mouth Marielle es ESTRIL) 20 08:18: 00:00 daily. Medi farrukh MG tablet 07 :00 Center lisinopriL 2023-0 2023- No 20mg QD Take [address] [facility] [address] (PRINIVIL,Z 2-18 02-18 by mouth Marielle es ESTRIL) 20 08:18: 00:00 daily. Medi farrukh MG tablet 07 :00 [place] lisinopriL 2023-0 2023- No 20mg QD Take [address] [facility] [address] (PRINIVIL,Z 2-18 02-18 by mouth Marielle es ESTRIL) 20 08:18: 00:00 daily. Medi farrukh MG tablet 07 :00 Center lisinopriL 2023-0 2023- No 20mg QD Take [address] [facility] [address] (PRINIVIL,Z 2-18 02-18 by mouth Marielle es ESTRIL) 20 08:18: 00:00 daily. Medi farrukh MG tablet 07 :00 Center lisinopriL 2023-0 2023- No 20mg QD Take [address] [facility] [address] (PRINIVIL,Z 2-18 02-18 by mouth Marielle es ESTRIL) 20 08:18: 00:00 daily. Medi farrukh MG tablet 07 :00 Center lisinopriL 2023-0 2023- No 20mg QD Take [address] [facility] [address] (PRINIVIL,Z 2-18 02-18 by mouth Marielle es ESTRIL) 20 08:18: 00:00 daily. Medi farrukh MG tablet 07 :00 Center lisinopriL 2023-0 2023- No 20mg QD Take [address] [facility] [address] (PRINIVIL,Z 2-18 02-18 by mouth Marielle es ESTRIL) 20 08:18: 00:00 daily. Medi farrukh MG tablet 07 :00 Center lisinopriL 2023-0 2023- No 20mg QD Take [address] [facility] [address] (PRINIVIL,Z 2-18 02-18 by mouth Marielle es ESTRIL) 20 08:18: 00:00 daily. Medi farrukh MG tablet 07 :00 Center lisinopriL 2023-0 2023- No 20mg QD Take [address] [facility] [address] (PRINIVIL,Z 2-18 02-18 by mouth Marielle es ESTRIL) 20 08:18: 00:00 daily. Medi farrukh MG tablet 07 :00 Center lisinopriL 2023-0 2023- No 20mg QD Take [address] [facility] [address] (PRINIVIL,Z 2-18 02-18 by mouth Marielle es ESTRIL) 20 08:18: 00:00 daily. Medi farrukh MG tablet 07 :00 Center lisinopriL 2023-0 2023- No 20mg QD Take [address] [facility] [address] (PRINIVIL,Z 2-18 02-18 by mouth Marielle es ESTRIL) 20 08:18: 00:00 daily. Medi farrukh MG tablet 07 :00 Center lisinopriL 2023-0 2023- No 20mg QD Take [address] [facility] [address] (PRINIVIL,Z 2-18 02-18 by mouth Marielle es ESTRIL) 20 08:18: 00:00 daily. Medi farrukh MG tablet 07 :00 Center lisinopriL 2023-0 2023- No 20mg QD Take [address] [facility] [address] (PRINIVIL,Z 2-18 02-18 by mouth Marielle es ESTRIL) 20 08:18: 00:00 daily. Medi farrukh MG tablet 07 :00 Center lisinopriL 2023-0 2023- No 20mg QD Take [address] [facility] [address] (PRINIVIL,Z 2-18 02-18 by mouth Marielle es ESTRIL) 20 08:18: 00:00 daily. Medi farrukh MG tablet 07 :00 Center lisinopriL 2023-0 2023- No 20mg QD Take [address] [facility] [address] (PRINIVIL,Z 2-18 02-18 by mouth [facility] es ESTRIL) 20 08:18: 00:00 daily. Medi farrukh MG tablet 07 :00 Center lisinopriL 2023-0 2023- No 20mg QD Take [address] [facility] (PRINIVIL,Z 2-18 02-18 by mouth [facility] ESTRIL) 20 08:18: 00:00 daily. Medi farrukh MG tablet 07 :00 Center lisinopriL 2023-0 2023- No 20mg QD Take [address] [facility] (PRINIVIL,Z 2-18 02-18 by mouth [facility] ESTRIL) 20 08:18: 00:00 daily. Medi farrukh MG tablet 07 :00 Center lisinopriL 2023-0 2023- No 20mg QD Take [address] [facility] (PRINIVIL,Z 2-18 02-18 by mouth [facility] ESTRIL) 20 08:18: 00:00 daily. Medi farrukh MG tablet 07 :00 Center lisinopriL 2023-0 2023- No 20mg QD Take [address] [facility] (PRINIVIL,Z 2-18 02-18 by mouth [facility] ESTRIL) 20 08:18: 00:00 daily. Medi farrukh MG tablet 07 :00 Center lisinopriL 2023-0 2023- No 20mg QD Take [address] [facility] (PRINIVIL,Z 2-18 02-18 by mouth [facility] ESTRIL) 20 08:18: 00:00 daily. Medi farrukh MG tablet 07 :00 [place] lisinopriL 2022- No 20mg QD Take [address] [facility] (PRINIVIL,Z 2-18 -18 by mouth [facility] ESTRIL) 20 08:18: 00:00 daily. Medi farrukh MG tablet 07 :00 [place] amoxicillin 2022- No 1{tbl} Q.5D Take [address] -clavulanat 2-15 02-15 tablet by Louise barrios 09:46: 00:00 mouth 2 Medical (AUGMENTIN) 23 :00 (two) Center 875-125 mg times per tablet daily. amoxicillin 2022- No 1{tbl} Q.5D Take [address] -clavulanat 2-15 02-15 tablet by Louise felix e 09:46: 00:00 mouth 2 Medical (AUGMENTIN) 23 :00 (two) Center 875-125 mg times per tablet daily. amoxicillin 2022- No 1{tbl} Q.5D Take [address] -clavulanat 2-15 02-15 tablet by Louise barrios 09:46: 00:00 mouth 2 Medical (AUGMENTIN) 23 :00 (two) Center 875-125 mg times per tablet daily. amoxicillin 2022- No 1{tbl} Q.5D Take [address] -clavulanat 2-15 02-15 tablet by Louise barrios 09:46: 00:00 mouth 2 Medical (AUGMENTIN) 23 :00 (two) Center 875-125 mg times per tablet daily. amoxicillin 2022- No 1{tbl} Q.5D Take [address] -clavulanat 2-15 02-15 tablet by Louise barrios 09:46: 00:00 mouth 2 Medical (AUGMENTIN) 23 :00 (two) Center 875-125 mg times per tablet daily. amoxicillin 2022- No 1{tbl} Q.5D Take [address] -clavulanat 2-15 02-15 tablet by Louise barrios 09:46: 00:00 mouth 2 Medical (AUGMENTIN) 23 :00 (two) Center 875-125 mg times per tablet daily. amoxicillin 2022- No 1{tbl} Q.5D Take [address] -clavulanat 2-15 02-15 tablet by Louise giangs e 09:46: 00:00 mouth 2 Medical (AUGMENTIN) 23 :00 (two) Center 875-125 mg times per tablet daily. amoxicillin 2022-0 3- No 1{tbl} Q.5D Take [address] -clavulanat 2-15 02-15 tablet by Louise felix e 09:46: 00:00 mouth 2 Medical (AUGMENTIN) 23 :00 (two) Center 875-125 mg times per tablet daily. amoxicillin 2022-0 2022- No 1{tbl} Q.5D Take [address] -clavulanat 2-15 02-15 tablet by Louise ginags e 09:46: 00:00 mouth 2 Medical (AUGMENTIN) 23 :00 (two) Center 875-125 mg times per tablet daily. amoxicillin 2022-0 3- No 1{tbl} Q.5D Take [address] -clavulanat 2-15 02-15 tablet by Louise felix e 09:46: 00:00 mouth 2 Medical (AUGMENTIN) 23 :00 (two) Center 875-125 mg times per tablet daily. amoxicillin 2022-2022- No 1{tbl} Q.5D Take [address] -clavulanat 2-15 02-15 tablet by Louise felix e 09:46: 00:00 mouth 2 Medical (AUGMENTIN) 23 :00 (two) Center 875-125 mg times per tablet daily. amoxicillin 2022-0 3- No 1{tbl} Q.5D Take [address] -clavulanat 2-15 02-15 tablet by Louise felix e 09:46: 00:00 mouth 2 Medical (AUGMENTIN) 23 :00 (two) Center 875-125 mg times per tablet daily. amoxicillin 2022-0 2023- No 1{tbl} Q.5D Take [address] -clavulanat 2-15 02-15 tablet by Louise felix e 09:46: 00:00 mouth 2 Medical (AUGMENTIN) 23 :00 (two) Center 875-125 mg times per tablet daily. amoxicillin 2022-0 2023- No 1{tbl} Q.5D Take [address] -clavulanat 2-15 02-15 tablet by Louise felix e 09:46: 00:00 mouth 2 Medical (AUGMENTIN) 23 :00 (two) Center 875-125 mg times per tablet daily. amoxicillin 2022-2022- No 1{tbl} Q.5D Take [address] -clavulanat 2-15 02-15 tablet by Louise kes e 09:46: 00:00 mouth 2 Medical (AUGMENTIN) 23 :00 (two) Center 875-125 mg times per tablet daily. amoxicillin 2022-0 2022- No 1{tbl} Q.5D Take [address] -clavulanat 2-15 02-15 tablet by Louise kes e 09:46: 00:00 mouth 2 Medical (AUGMENTIN) 23 :00 (two) Center 875-125 mg times per tablet daily. amoxicillin 2022-2022- No 1{tbl} Q.5D Take [address] -clavulanat 2-15 02-15 tablet by Louise kes e 09:46: 00:00 mouth 2 Medical (AUGMENTIN) 23 :00 (two) Center 875-125 mg times per tablet daily. amoxicillin 2022-2022- No 1{tbl} Q.5D Take [address] -clavulanat 2-15 02-15 tablet by Louise kes e 09:46: 00:00 mouth 2 Medical (AUGMENTIN) 23 :00 (two) Center 875-125 mg times per tablet daily. amoxicillin 2022-0 2022- No 1{tbl} Q.5D Take [address] -clavulanat 2-15 02-15 tablet by Louise kes e 09:46: 00:00 mouth 2 Medical (AUGMENTIN) 23 :00 (two) Center 875-125 mg times per tablet daily. amoxicillin 2022-0 2022- No 1{tbl} Q.5D Take [address] -clavulanat 2-15 02-15 tablet by Louise kes e 09:46: 00:00 mouth 2 Medical (AUGMENTIN) 23 :00 (two) Center 875-125 mg times per tablet daily. amoxicillin 2022-0 2022- No 1{tbl} Q.5D Take [address] -clavulanat 2-15 02-15 tablet by Louise kes e 09:46: 00:00 mouth 2 Medical (AUGMENTIN) 23 :00 (two) Center 875-125 mg times per tablet daily. amoxicillin 2022-0 2022- No 1{tbl} Q.5D Take [address] -clavulanat 2-15 02-15 tablet by Louise rahats e 09:46: 00:00 mouth 2 Medical (AUGMENTIN) 23 :00 (two) Center 875-125 mg times per tablet daily. amoxicillin 2022-0 2022- No 1{tbl} Q.5D Take [address] -clavulanat 2-15 02-15 tablet by Louise kes e 09:46: 00:00 mouth 2 Medical (AUGMENTIN) 23 :00 (two) Center 875-125 mg times per tablet daily. amoxicillin 2022-0 2022- No 1{tbl} Q.5D Take [address] -clavulanat 2-15 02-15 tablet by Louise felix e 09:46: 00:00 mouth 2 Medical (AUGMENTIN) 23 :00 (two) Center 875-125 mg times per tablet daily. amoxicillin 2022-0 2022- No 1{tbl} Q.5D Take [address] -clavulanat 2-15 02-15 tablet by Louise giangs e 09:46: 00:00 mouth 2 Medical (AUGMENTIN) 23 :00 (two) Center 875-125 mg times per tablet daily. metFORMIN 2021-0 Yes 500mg Take [address] [facility] (GLUMETZA) 2-14 [facility] by [facility] MG 12:58: mouth Medical (MOD) 24 hr 09 daily with Ce nter tablet breakfast Dose unknown . lisinopriL 2021-0 Yes 20mg QD Take [address] [facility] (PRINIVIL,Z 2-14 by mouth [facility] ESTRIL) 20 12:58: daily. Medic al MG tablet 09 Center amoxicillin 0 Yes 1{tbl} Q.5D Take 1 [facility] [...] es e 12:58: mouth 2 Medical (AUGMENTIN) ([facility] Center 875-125 mg times per tablet daily. [...] es e 12:58: mouth 2 Medical (AUGMENTIN) ([facility] 875-125 mg times per tablet daily. metFORMIN [...] es e 12:58: mouth 2 Medical (AUGMENTIN) ([facility] 875-125 mg times per tablet daily. metFORMIN [...] e 12:58: mouth 2 Medical (AUGMENTIN) 09 ([place] Center 875-125 mg times per tablet daily. [...] es e 12:58: mouth 2 Medical (AUGMENTIN) ([facility] Center 875-125 mg times per tablet daily. [...] e 12:58: mouth 2 Medical (AUGMENTIN) 09 ([place] Center 875-125 mg times per tablet daily. metFORMIN 2022-0 Yes 500mg Take [address] [facility] (GLUMETZA) 2-14 mg by [facility] MG 12:58: mouth Medical (MOD) 24 hr 09 daily with Ce nter tablet breakfast Dose unknown . lisinopriL 2021-0 Yes 20mg QD Take [address] [facility] (PRINIVIL,Z 2-14 by mouth [facility] s ESTRIL) 20 12:58: daily. Medic al MG tablet 09 Center amoxicillin 0 Yes 1{tbl} Q.5D Take [address] [facility] [address] [facility] -clavulanat 2-14 tablet by Marielle es e 12:58: mouth 2 Medical (AUGMENTIN) 09 (two) Center 875-125 mg times per tablet daily. metFORMIN 0 Yes 500mg Take [address] [facility] (GLUMETZA) 2-14 mg by [facility] MG 12:58: mouth Medical (MOD) 24 hr 09 daily with Ce nter tablet breakfast Dose unknown . lisinopriL 0 Yes 20mg QD Take [address] [facility] (PRINIVIL,Z 2-14 by mouth [facility] ESTRIL) 20 12:58: daily. Medic al MG tablet 09 Center amoxicillin Yes 1{tbl} Q.5D Take [address] [facility] [address] [facility] -clavulanat 2-14 tablet by Marielle es e 12:58: mouth 2 Medical (AUGMENTIN) 09 (two) Center 875-125 mg times per tablet daily. lisinopriL 0 Yes 20mg QD Take [address] [facility] (PRINIVIL,Z 2-10 by mouth [facility] ESTRIL) 20 10:10: daily. Medic al MG tablet 08 Center amoxicillin 0 Yes 1{tbl} Q.5D Take [address] [facility] [address] [facility] -clavulanat 2-10 tablet by Marielle es e 10:10: mouth 2 Medical (AUGMENTIN) 08 (two) Center 875-125 mg times per tablet daily. oxyCODONE-a 2021- No 1{tbl} Take [address] cetaminophe 2-10 02-10 tablet by Louise abarca 10:03: 00:00 mouth Medical (PERCOCET) 54 :00 every 4 Center 10-325 mg (four) per tablet hours as needed for Pain. oxyCODONE-a 2021- No 1{tbl} Take [address] cetaminophe 2-10 02-10 tablet by Louise felix n 10:03: 00:00 mouth Medical (PERCOCET) 54 [...] St cetaminophe 2-10 02-10 tablet by Louise felix n 10:03: 00:00 mouth Medical (PERCOCET) 54 :00 every 4 Center 10-325 mg (four) per tablet hours as needed for Pain. oxyCODONE-a 2021- No 1{tbl} Take [address] cetaminophe 2-10 02-10 tablet by Louise felix n 10:03: 00:00 mouth Medical (PERCOCET) 54 [...] tablet hours as needed for Pain. oxyCODONE-a 2021-2021- No 1{tbl} Take 1 C [...] tablet hours as needed for Nausea. ondansetron 2021-0 2- No 4mg Take [facility] mg [facility] tablet hours as needed for Nausea. LORazepam 2021- No 1mg Take 1 mg [...] mg [facility] (ATIVAN) 1 2-10 -10 by mouth [facility] MG tablet 10:02: 00:00 every 8 Medi farrukh 52 :00 (eight) Center hours as needed for Anxiety. LORazepam 2021- No 1mg Take [address] [facility] (ATIVAN) 1 2-10 -10 by mouth [facility] MG tablet 10:02: 00:00 every 8 Medi farrukh 52 :00 (eight) Center hours as needed for Anxiety. LORazepam 2021- No 1mg Take [address] [facility] (ATIVAN) 1 2-03 22-10 by mouth [facility] MG tablet 10:02: 00:00 every 8 Medi farrukh 52 :00 (eight) Center hours as needed for Anxiety. LORazepam 2021- No 1mg Take [address] [facility] [address] [facility] (ATIVAN) 1 2-03 22-10 by mouth Luke s MG tablet 10:02: 00:00 every 8 Medi farrukh 52 :00 (eight) Center hours as needed for Anxiety. LORazepam 2021- No 1mg Take [address] [facility] [address] [facility] (ATIVAN) 1 2-10 -10 by mouth Luke s MG tablet 10:02: 00:00 every 8 Medi farrukh 52 :00 (eight) Center hours as needed for Anxiety. atorvastati 2021- No 20mg QD Take [address] [facility] (LIPITOR) 2-10 -10 by mouth Marielle es 20 MG 10:02: 00:00 daily. Medical tablet 10 :00 Center atorvastati 2021- No 20mg QD Take [address] [facility] (LIPITOR) 2-10 02-10 by mouth Marielle es 20 MG 10:02: 00:00 daily. Medical tablet 10 :00 Center atorvastati 2021- No 20mg QD Take [address] [facility] n (LIPITOR) 2-10 02-10 by mouth Marielle es 20 MG 10:02: 00:00 daily. Medical tablet 10 :00 Center atorvastati 2021- No 20mg QD Take [address] [facility] n (LIPITOR) 2-10 02-10 by mouth Marielle es 20 MG 10:02: 00:00 daily. Medical tablet 10 :00 [place] atorvastati 2021- No 20mg QD Take [address] [facility] n (LIPITOR) 2-10 02-10 by mouth Marielle es 20 MG 10:02: 00:00 daily. Medical tablet 10 :00 [place] atorvastati 2021- No 20mg QD Take [address] [facility] n (LIPITOR) 2-10 02-10 by mouth Mar[facility] es 20 MG 10:02: 00:00 daily. Medical tablet 10 :00 [place] atorvastati 2021- No 20mg QD Take [address] [facility] n (LIPITOR) 2-10 02-10 by mouth Marielle es 20 MG 10:02: 00:00 daily. Medical tablet 10 :00 [place] atorvastati 2021- No 20mg QD Take [address] [facility] n (LIPITOR) 2-10 02-10 by mouth Marielle es 20 MG 10:02: 00:00 daily. Medical tablet 10 :00 [place] atorvastati 2021- No 20mg QD Take [address] [facility] n (LIPITOR) 2-10 02-10 by mouth Marielle es 20 MG 10:02: 00:00 daily. Medical tablet 10 :00 [place] atorvastati 2021- No 20mg QD Take [address] [facility] n (LIPITOR) 2-10 02-10 by mouth Marielle es 20 MG 10:02: 00:00 daily. Medical tablet 10 :00 [place] atorvastati 2021- No 20mg QD Take [address] [facility] n (LIPITOR) 2-10 02-10 by mouth Marielle es 20 MG 10:02: 00:00 daily. Medical tablet 10 :00 [place] atorvastati 2021- No 20mg QD Take [address] [facility] n (LIPITOR) 2-10 02-10 by mouth Marielle es 20 MG 10:02: 00:00 daily. Medical tablet 10 :00 [place] allopurinoL Yes TAKE ONE [facility] [...] BY MOUTH Center ONCE A DAY. OLANZapine Yes TAKE ONE [facility] (ZYPREXA) 2-08 [...] 00 BY MOUTH Center EVERY NIGHT. allopurinoL Yes TAKE ONE [facility] [...] 00 BY MOUTH Center EVERY NIGHT. allopurinoL Yes TAKE ONE [facility] (ZYLOPRIM) 2-08 (1) [facility] 100 MG 00:00: TABLET(S) Medica l tablet 00 BY MOUTH Center ONCE A DAY. OLANZapine Yes TAKE ONE [facility] (ZYPREXA) 2-08 (1) [facility] 2.5 MG 00:00: TABLET(S) Medica l tablet 00 BY MOUTH Center EVERY NIGHT. allopurinoL Yes TAKE ONE [facility] (ZYLOPRIM) 2-08 (1) [facility] 100 MG 00:00: TABLET(S) Medica l tablet 00 BY MOUTH Center ONCE A DAY. OLANZapine Yes TAKE ONE [facility] (ZYPREXA) 2-08 (1) [facility] 2.5 MG 00:00: TABLET(S) Medica l tablet 00 BY MOUTH Center EVERY NIGHT. allopurinoL Yes TAKE ONE [facility] (ZYLOPRIM) 2-08 (1) [facility] 100 MG 00:00: TABLET(S) Medica l tablet 00 BY MOUTH Center ONCE A DAY. OLANZapine Yes TAKE ONE [facility] (ZYPREXA) 2-08 (1) [facility] 2.5 MG 00:00: TABLET(S) Medica l tablet 00 BY MOUTH Center EVERY NIGHT. allopurinoL 2022- No TAKE ONE [facility] (ZYLOPRIM) 2-15 (1) [facility] 100 MG 00:00: 00:00 TABLET(S) Medic al tablet 00 :00 BY MOUTH Center ONCE A DAY. OLANZapine 2022- No TAKE ONE [facility] (ZYPREXA) 2-15 (1) [facility] 2.5 MG 00:00: 00:00 TABLET(S) Medic al tablet 00 :00 BY MOUTH Center EVERY NIGHT. allopurinoL 2022- No TAKE ONE [facility] (ZYLOPRIM) 2-15 (1) [facility] 100 MG 00:00: 00:00 TABLET(S) Medic al tablet 00 :00 BY MOUTH Center ONCE A DAY. OLANZapine 2022- No TAKE ONE [facility] (ZYPREXA) 2-15 (1) [facility] 2.5 MG 00:00: 00:00 TABLET(S) Medic al tablet 00 :00 BY MOUTH Center EVERY NIGHT. allopurinoL 2022- No TAKE ONE [facility] (ZYLOPRIM) 07-29 (1) [facility] 100 MG 00:00: 00:00 TABLET(S) Medic al tablet 00 :00 BY MOUTH Center ONCE A DAY. OLANZapine 2022- No TAKE ONE [facility] (ZYPREXA) 07-29 () [facility] 2.5 MG 00:00: 00:00 TABLET(S) Medic al tablet 00 :00 BY MOUTH Center EVERY NIGHT. allopurinoL 2022- No TAKE ONE [facility] (ZYLOPRIM) 07-29 () [facility] 100 MG 00:00: 00:00 TABLET(S) Medic al tablet 00 :00 BY MOUTH Center ONCE A DAY. OLANZapine 2022- No TAKE ONE [facility] (ZYPREXA) 07-29 () [facility] 2.5 MG 00:00: 00:00 TABLET(S) Medic al tablet 00 :00 BY MOUTH Center EVERY NIGHT. allopurinoL 2022- No TAKE ONE [facility] (ZYLOPRIM) 07-29 () [facility] 100 MG 00:00: 00:00 TABLET(S) Medic al tablet 00 :00 BY MOUTH Center ONCE A DAY. OLANZapine 2022- No TAKE ONE [facility] (ZYPREXA) 07-29 () [facility] 2.5 MG 00:00: 00:00 TABLET(S) Medic al tablet 00 :00 BY MOUTH Center EVERY NIGHT. allopurinoL 2022- No TAKE ONE [facility] (ZYLOPRIM) 07-29 (1) [facility] 100 MG 00:00: 00:00 TABLET(S) Medic al tablet 00 :00 BY MOUTH Center ONCE A DAY. OLANZapine 2022- No TAKE ONE [facility] (ZYPREXA) 07-29 (1) [facility] 2.5 MG 00:00: 00:00 TABLET(S) Medic al tablet 00 :00 BY MOUTH Center EVERY NIGHT. allopurinoL 2022- No TAKE ONE [facility] (ZYLOPRIM) 07-29 (1) [facility] 100 MG 00:00: 00:00 TABLET(S) Medic al tablet 00 :00 BY MOUTH Center ONCE A DAY. OLANZapine 2022- No TAKE ONE [facility] (ZYPREXA) 07-29 (1) [facility] 2.5 MG 00:00: 00:00 TABLET(S) Medic al tablet 00 :00 BY MOUTH Center EVERY NIGHT. allopurinoL 2022- No TAKE ONE [facility] (ZYLOPRIM) 07-29 (1) [facility] 100 MG 00:00: 00:00 TABLET(S) Medic al tablet 00 :00 BY MOUTH Center ONCE A DAY. OLANZapine 2022- No TAKE ONE [facility] (ZYPREXA) 07-29 (1) [facility] 2.5 MG 00:00: 00:00 TABLET(S) Medic al tablet 00 :00 BY MOUTH Center EVERY NIGHT. allopurinoL 2022- No TAKE ONE [facility] (ZYLOPRIM) 07-29 (1) [facility] 100 MG 00:00: 00:00 TABLET(S) Medic al tablet 00 :00 BY MOUTH Center ONCE A DAY. OLANZapine 2022- No TAKE ONE [facility] (ZYPREXA) 07-29 (1) [facility] 2.5 MG 00:00: 00:00 TABLET(S) Medic al tablet 00 :00 BY MOUTH Center EVERY NIGHT. allopurinoL 2022- No TAKE ONE [facility] (ZYLOPRIM) 07-29 (1) [facility] 100 MG 00:00: 00:00 TABLET(S) Medic al tablet 00 :00 BY MOUTH Center ONCE A DAY. OLANZapine 2022- No TAKE ONE [facility] (ZYPREXA) 07-29 (1) [facility] 2.5 MG 00:00: 00:00 TABLET(S) Medic al tablet 00 :00 BY MOUTH Center EVERY NIGHT. allopurinoL 2022- No TAKE ONE [facility] (ZYLOPRIM) 07-29 (1) [facility] 100 MG 00:00: 00:00 TABLET(S) Medic al tablet 00 :00 BY MOUTH Center ONCE A DAY. OLANZapine 2022- No TAKE ONE [facility] (ZYPREXA) 07-29 (1) [facility] 2.5 MG 00:00: 00:00 TABLET(S) Medic al tablet 00 :00 BY MOUTH Center EVERY NIGHT. allopurinoL 2022- No TAKE ONE [facility] (ZYLOPRIM) 07-29 (1) [facility] 100 MG 00:00: 00:00 TABLET(S) Medic al tablet 00 :00 BY MOUTH Center ONCE A DAY. OLANZapine 2022- No TAKE ONE [facility] (ZYPREXA) 07-29 (1) [facility] 2.5 MG 00:00: 00:00 TABLET(S) Medic al tablet 00 :00 BY MOUTH Center EVERY NIGHT. allopurinoL 2022- No TAKE ONE [facility] (ZYLOPRIM) 07-29 (1) [facility] 100 MG 00:00: 00:00 TABLET(S) Medic al tablet 00 :00 BY MOUTH Center ONCE A DAY. OLANZapine 2022- No TAKE ONE [facility] (ZYPREXA) 07-29 (1) [facility] 2.5 MG 00:00: 00:00 TABLET(S) Medic al tablet 00 :00 BY MOUTH Center EVERY NIGHT. allopurinoL 2022- No TAKE ONE [facility] (ZYLOPRIM) 07-29 (1) [facility] 100 MG 00:00: 00:00 TABLET(S) Medic al tablet 00 :00 BY MOUTH Center ONCE A DAY. OLANZapine 2022- No TAKE ONE [facility] (ZYPREXA) 07-29 (1) [facility] 2.5 MG 00:00: 00:00 TABLET(S) Medic al tablet 00 :00 BY MOUTH Center EVERY NIGHT. allopurinoL 2022- No TAKE ONE [facility] (ZYLOPRIM) 07-29 (1) [facility] 100 MG 00:00: 00:00 TABLET(S) Medic al tablet 00 :00 BY MOUTH Center ONCE A DAY. OLANZapine 2022- No TAKE ONE [facility] (ZYPREXA) 2-08 02-15 (1) [facility] 2.5 MG 00:00: 00:00 TABLET(S) Medic al tablet 00 :00 BY MOUTH Center EVERY NIGHT. allopurinoL 2022- No TAKE ONE [facility] (ZYLOPRIM) 07-29 (1) [facility] 100 MG 00:00: 00:00 TABLET(S) Medic al tablet 00 :00 BY MOUTH Center ONCE A DAY. OLANZapine 2022- No TAKE ONE [facility] (ZYPREXA) 07-29 (1) [facility] 2.5 MG 00:00: 00:00 TABLET(S) Medic al tablet 00 :00 BY MOUTH Center EVERY NIGHT. allopurinoL 2022- No TAKE ONE [facility] (ZYLOPRIM) 07-29 (1) [facility] 100 MG 00:00: 00:00 TABLET(S) Medic al tablet 00 :00 BY MOUTH Center ONCE A DAY. OLANZapine 2022- No TAKE ONE [facility] (ZYPREXA) 07-29 () [facility] 2.5 MG 00:00: 00:00 TABLET(S) Medic al tablet 00 :00 BY MOUTH Center EVERY NIGHT. allopurinoL 2022- No TAKE ONE [facility] (ZYLOPRIM) 07-29 (1) [facility] 100 MG 00:00: 00:00 TABLET(S) Medic al tablet 00 :00 BY MOUTH Center ONCE A DAY. OLANZapine 2022- No TAKE ONE [facility] (ZYPREXA) 07-29 (1) [facility] 2.5 MG 00:00: 00:00 TABLET(S) Medic al tablet 00 :00 BY MOUTH Center EVERY NIGHT. allopurinoL 2022- No TAKE ONE [facility] (ZYLOPRIM) 07-29 (1) [facility] 100 MG 00:00: 00:00 TABLET(S) Medic al tablet 00 :00 BY MOUTH Center ONCE A DAY. OLANZapine 2022- No TAKE ONE [facility] (ZYPREXA) 07-29 (1) [facility] 2.5 MG 00:00: 00:00 TABLET(S) Medic al tablet 00 :00 BY MOUTH Center EVERY NIGHT. allopurinoL 2022- No TAKE ONE [facility] (ZYLOPRIM) 07-29 (1) [facility] 100 MG 00:00: 00:00 TABLET(S) Medic al tablet 00 :00 BY MOUTH Center ONCE A DAY. OLANZapine 2022- No TAKE ONE [facility] (ZYPREXA) 07-29 (1) [facility] 2.5 MG 00:00: 00:00 TABLET(S) Medic al tablet 00 :00 BY MOUTH Center EVERY NIGHT. allopurinoL 2022- No TAKE ONE [facility] (ZYLOPRIM) 07-29 (1) [facility] 100 MG 00:00: 00:00 TABLET(S) Medic al tablet 00 :00 BY MOUTH Center ONCE A DAY. OLANZapine 2022- No TAKE ONE [facility] (ZYPREXA) 07-29 (1) [facility] 2.5 MG 00:00: 00:00 TABLET(S) Medic al tablet 00 :00 BY MOUTH Center EVERY NIGHT. allopurinoL 2022- No TAKE ONE [facility] (ZYLOPRIM) 07-29 (1) [facility] 100 MG 00:00: 00:00 TABLET(S) Medic al tablet 00 :00 BY MOUTH Center ONCE A DAY. OLANZapine 2022- No TAKE ONE [facility] (ZYPREXA) 07-29 (1) [facility] 2.5 MG 00:00: 00:00 TABLET(S) Medic al tablet 00 :00 BY MOUTH Center EVERY NIGHT. allopurinoL 2022- No TAKE ONE [facility] (ZYLOPRIM) 07-29 (1) [facility] 100 MG 00:00: 00:00 TABLET(S) Medic al tablet 00 :00 BY MOUTH Center ONCE A DAY. OLANZapine 2022- No TAKE ONE [facility] (ZYPREXA) 07-29 (1) [facility] 2.5 MG 00:00: 00:00 TABLET(S) Medic al tablet 00 :00 BY MOUTH Center EVERY NIGHT. allopurinoL 2022- No TAKE ONE [facility] (ZYLOPRIM) 07-29 (1) [facility] 100 MG 00:00: 00:00 TABLET(S) Medic al tablet 00 :00 BY MOUTH Center ONCE A DAY. OLANZapine 2022- No TAKE ONE [facility] (ZYPREXA) 07-29 (1) [facility] 2.5 MG 00:00: 00:00 TABLET(S) Medic al tablet 00 :00 BY MOUTH Center EVERY NIGHT. allopurinoL 2022- No TAKE ONE [facility] (ZYLOPRIM) 07-29 (1) [facility] 100 MG 00:00: 00:00 TABLET(S) Medic al tablet 00 :00 BY MOUTH Center ONCE A DAY. OLANZapine 2022- No TAKE ONE [facility] (ZYPREXA) 07-29 (1) [facility] 2.5 MG 00:00: 00:00 TABLET(S) Medic al tablet 00 :00 BY MOUTH Center EVERY NIGHT. LORazepam Yes 1mg Take [address] [facility] (ATIVAN) 1 1-21 by mouth [facility] tablet 12:28: every 8 Medic al 10 (eight) Center hours as needed for Anxiety. metFORMIN Yes 500mg Take [address] [facility] (GLUMETZA) 1-21 mg by [facility] 500 MG 12:28: mouth Medical (MOD) 24 hr 10 daily with Ce nter tablet breakfast Dose unknown . atorvastati Yes 20mg QD Take [address] [facility] (LIPITOR) 1-21 by mouth [facility] 20 MG 12:28: daily. Medical tablet 10 Center ondansetron Yes 4mg Take [address] (ZOFRAN-ODT 1-21 by mouth [facility] ) 4 MG 12:28: every 8 Medical disintegrat 10 (eight) Cente r ing tablet hours as needed for Nausea. oxyCODONE-a Yes 1{tbl} Take [address] [facility] cetaminophe 1-21 tablet by [facility] es n 12:28: mouth Medical (PERCOCET) 10 every 4 Center 10-325 mg (four) per tablet hours as needed for Pain. metFORMIN Yes 500mg Take [address] [facility] (GLUMETZA) 1-21 mg by [facility] 500 MG 12:28: mouth Medical (MOD) 24 hr 10 daily with Ce nter tablet breakfast Dose unknown . calcium 2022-0 2022- No 1000mg Take 2 [...] needed for up to 30 days. calcium 2-0 2- No 1000mg Take 2 [facility] 1-[facility] 02-10 [facility] (TUMS) 500 00:00: 00:00 (1,000 mg M edical mg chewable 00 :00 total) by [facility] tablet mouth 3 (three) times daily as needed for up to 30 days. calcium 2-0 2- No 1000mg [facility] 2 [facility] [...] 1000mg Take 2 [facility] 07-11 02-10 [facility] (TUMS) 500 00:00: 00:00 (1,000 mg M edical mg chewable 00 :00 total) by [facility] tablet mouth 3 (three) times daily as needed for up to 30 days. calcium 2022-0 2022- No 1000mg Take 2 [facility] - [facility] 500 00:00: 00:00 (1,000 mg [facility] ed[facility] mg chewable 00 :00 total) by [facility] tablet mouth 3 (three) times daily as needed for up to 30 days. calcium 2021-0 2021- No 1000[facility] Take 2 [facility] 07[facility]) 500 00:00: 00:00 (1,000 mg M ed[facility] mg chewable 00 :00 total) by [facility] tablet mouth 3 (three) times daily as needed for up to 30 days. calcium 2021-0 2- No 1000mg Take 2 [facility] 07[facility] (TU[facility]) 500 00:00: 00:00 (1,000 mg M ed[facility] mg chewable 00 :00 total) by [facility] tablet mouth 3 (three) times daily as needed for up to 30 days. calcium 2-0 2- No 1000mg Take 2 [facility] 07[facility] (TU[facility]) 500 00:00: 00:00 (1,000 mg [facility] mg chewable 00 :00 total) by [facility] tablet mouth 3 (three) times daily as needed for up to 30 days. calcium 2-0 2- No 1000mg Take 2 [facility] 07[facility] (TU[facility]) 500 00:00: 00:00 (1,000 mg [facility] ed[facility] mg chewable 00 :00 total) by [facility] tablet mouth 3 (three) times daily as needed for up to 30 days. ciprofloxac 2022-0 2- No 500mg Q.5D Take 1 [facility] mouth daily for 30 days. allopurinoL 2021-2021- No 100mg QD Take [address] [facility] [address] [facility] (ZYLOPRIM) 06-27 [facility] 100 MG 00:00: 00:00 (100 mg [facility] tablet 00 :00 total) by [facility] mouth daily for 30 days. allopurinoL 2021-2021- No 100mg QD Take [address] [facility] [address] [facility] (ZYLOPRIM) 06-27- [facility] 100 MG 00:00: 00:00 (100 mg Medical tablet 00 :00 total) by [facility] mouth daily for 30 days. allopurinoL 2021-0 2022- No 100mg QD Take [address] [facility] [address] [facility] (ZYLOPRIM) 06-27- [facility] 100 MG 00:00: 00:00 (100 mg Medical tablet 00 :00 total) by [facility] mouth daily for 30 days. allopurinoL 2021-0 2022- No 100mg QD Take [address] [facility] [address] [facility] (ZYLOPRIM) 06-27- [facility] 100 MG 00:00: 00:00 (100 mg [facility] tablet 00 :00 total) by [facility] mouth daily for 30 days. allopurinoL 2021-2021- No 100mg QD Take [address] [facility] [address] [facility] (ZYLOPRIM) 06-27 [facility] 100 MG 00:00: 00:00 (100 mg Medical tablet 00 :00 total) by [facility] mouth daily for 30 days. allopurinoL 2021-2021- No 100mg QD Take [address] [facility] [address] [facility] (ZYLOPRIM) 06-27 [facility] 100 MG 00:00: 00:00 (100 mg Medical tablet 00 :00 total) [facility] mouth daily for 30 days. allopurinoL 2021-2021- No 100mg QD Take [address] [facility] [address] [facility] (ZYLOPRIM) 06-27 [facility] 100 MG 00:00: 00:00 (100 mg Medical tablet 00 :00 total) by [facility] mouth daily for 30 days. allopurinoL 2021-2021- No 100mg QD Take [address] [facility] [address] [facility] (ZYLOPRIM) 06-27 [facility] 100 MG 00:00: 00:00 (100 mg Medical tablet 00 :00 total) by Center mouth daily for 30 days. allopurinoL 2021- No 100mg QD Take [address] (ZYLOPRIM[facility] 06-27 [facility] 100 MG 00:00: 00:00 (100 mg Medical tablet 00 :00 total) by Center mouth daily for 30 days. allopurinoL 2021-2021- No 100mg QD Take [address] (ZYLOPRIM) 06-27 [facility] 100 MG 00:00: 00:00 (100 mg Medical tablet 00 :00 total) by Center mouth daily for 30 days. naloxegoL 2021-2021- No 25mg QD [facility] Oral 06-27- tablet (25 Louise kes Tab tablet 00:00: 23:59 mg total) M edical 00 :00 by mouth Center daily for 30 days. naloxegoL 2021-2021- No 25mg QD Take [facility] Oral 06-27-06 tablet (25 Louise kes Tab tablet 00:00: 23:59 mg total) M edical 00 :00 by mouth Center daily for 30 days. naloxegoL 2021-2021- No 25mg QD Take [facility] Oral 1-07 02-06 tablet (25 Louise kes Tab tablet 00:00: [...] kes Tab tablet 00:00: 23:59 mg total) edical 00 :00 by mouth Center daily for 30 days. naloxegoL 2021-2021- No 25mg QD Take 1 [facility] mg Oral 06-27 tablet (25 Louise kes Tab tablet 00:00: 23:59 mg total) edical 00 :00 by mouth Center daily for 30 days. naloxegoL 2021-2021- No 25mg QD Take 1 [facility] mg Oral 06-27 tablet (25 Louise kes Tab tablet 00:00: 23:59 mg total) edical 00 :00 by mouth Center daily for 30 days. lisinopriL 2021-2021- No 20mg QD Take [address] [facility] (PRINIVIL,Z 06-26 by mouth Marielle es ESTRIL) 20 08:52: 00:00 daily. Medi farrukh MG tablet 25 :00 [place] lisinopriL 2021- No 20mg QD Take [address] [facility] (PRINIVIL,Z 06-26 by mouth Marielle es ESTRIL) 20 08:52: 00:00 daily. Medi farrukh MG tablet 25 :00 [place] lisinopriL 2021- No 20mg QD Take [address] [facility] (PRINIVIL,Z 06-26 by mouth Marielle es ESTRIL) 20 08:52: 00:00 daily. Medi farrukh MG tablet 25 :00 Center lisinopriL 2021- No 20mg QD Take [address] [facility] (PRINIVIL,Z 06-26 by mouth Marielle es ESTRIL) 20 08:52: 00:00 daily. Medi farrukh MG tablet 25 :00 Center lisinopriL 2021-0 2- No 20mg QD Take [address] [facility] (PRINIVIL,Z 06-26 by mouth Marielle es ESTRIL) 20 08:52: 00:00 daily. Medi farrukh MG tablet 25 :00 Center lisinopriL 2- No 20mg QD Take [address] [facility] (PRINIVIL,Z 06-26 by mouth Marielle es ESTRIL) 20 08:52: 00:00 daily. Medi farrukh MG tablet 25 :00 Center lisinopriL 2021-2021- No 20mg QD Take [address] [facility] (PRINIVIL,Z 06-26 by mouth Marielle es ESTRIL) 20 08:52: 00:00 daily. Medi farrukh MG tablet 25 :00 Center OLANZapine 2021-0 2021- No 2.5mg QD Take [address] [facility] (ZYPREXA) 06-26- tablet [facility] 2.5 MG 00:00: 00:00 (2.5 mg Medical tablet 00 :00 total) by Center mouth nightly for 30 days. OLANZapine 2021-2021- No 2.5mg QD Take [address] [facility] (ZYPREXA) 06-26- tablet [facility] 2.5 MG 00:00: 00:00 (2.5 mg Medical tablet 00 :00 total) by Center mouth nightly for 30 days. OLANZapine 2021-2021- No 2.5mg QD Take [address] [facility] (ZYPREXA) 06-26- tablet [facility] 2.5 MG 00:00: 00:00 (2.5 mg Medical tablet 00 :00 total) by Center mouth nightly for 30 days. OLANZapine 2021-2021- No 2.5mg QD Take [address] [facility] (ZYPREXA) 06-26- tablet [facility] 2.5 MG 00:00: 00:00 (2.5 mg Medical tablet 00 :00 total) by Center mouth nightly for 30 days. OLANZapine 2021-2021- No 2.5mg QD Take [address] [facility] (ZYPREXA) 06-26- tablet [facility] 2.5 MG 00:00: 00:00 (2.5 mg Medical tablet 00 :00 total) by Center mouth nightly for 30 days. OLANZapine 2021-0 2021- No 2.5mg QD Take [address] [facility] (ZYPREXA) -11 20-08 tablet [facility] 2.5 MG 00:00: 00:00 (2.5 mg Medical tablet 00 :00 total) by Center mouth nightly for 30 days. OLANZapine 2021-0 2021- No 2.5mg QD Take [address] [facility] (ZYPREXA) -11 20-08 tablet [facility] 2.5 MG 00:00: 00:00 (2.5 [...] days. Max Daily Amount: 1 patch fentaNYL 2021-2021- No 1{patch Place 1 CH [...] days. Max Daily Amount: 1 patch fentaNYL 2021-2021- No 1{patch Place 1 CH [...] 00 :00 30 days. Center packet ursodioL No 250mg Q.5D Take 1 [facility] [...] days. Max Daily Amount: 1 patch fentaNYL 2021-2021- No 1{patch Place 1 CH [...] days. Max Daily Amount: 1 patch fentaNYL 2021-0 2- No 1{patch Place [address] [facility] [address] [facility] (DURAGESIC) 06-26 } patch onto L [facility]kes 25 mcg/hr 00:00: 23:59 the skin Med ical patch 00 :00 every Center third day for 30 days. Max Daily Amount: 1 patch polyethylen 2021-0 2022- No 17g QD Take 17 g [facility] [...] days. Max Daily Amount: 1 patch fentaNYL 2021-2021- No 1{patch Place [address] (DURAGESIC) 06-26 } patch onto L ukes 25 mcg/hr 00:00: 23:59 the skin Med ical patch 00 :00 every Center third day for 30 days. Max Daily Amount: 1 patch polyethylen 2021-0 2021- No 17g QD Take [address] [facility] e glycol 06-26 by mouth [facility] (GLYCOLAX) 00:00: 23:59 daily for M edical 17 gram 00 :00 30 days. Center packet ursodioL 2021-0 2021- No 250mg Q.5D Take 1 [facility] (ACTIGALL) 06-26 [facility] 250 mg 00:00: 23:59 (250 mg Medical tablet 00 :00 total) by Center mouth 2 (two) times daily for 30 days. bisacodyL 2021-2021- No 10mg Take 2 [facility] [...] 10mg Take 2 [facility] (DULCOLAX) 06-26-17 tablets [facility] 5 mg EC 00:00: 00:00 (10 mg Medical tablet 00 :00 total) by Center mouth daily as needed for Constipati on for up to 30 days. docusate 2021- No 200mg Q.5D Take [address] [facility] (COLACE) 50 06-26-16 mLs (200 Marielle es mg/5 mL 00:00: 23:59 mg total) Medi farrukh liquid 00 :00 by mouth 2 Center (two) times daily for 10 days. oxyCODONE-a 2021- No 1{tbl} Take [address] cetaminophe 06-2616 tablet by Louise felix n 00:00: 23:59 mouth Medical (PERCOCET) 00 [...] HI St cetaminophe 06-2616 tablet by Louise felix n 00:00: 23:59 mouth Medical (PERCOCET) 00 [...] 1{tbl} Take [address] cetaminophe 1-06 01-16 tablet by Louise kes n 00:00: 23:59 [...] HI St cetaminophe 06-2616 tablet by Louise giangs n 00:00: 23:59 [...] [facility] cetaminophe 06-26-16 tablet by Luoise kes n 00:00: 23:59 mouth Medical (PERCOCET) 00 :00 every 4 Center 10-325 mg (four) per tablet hours as needed for up to 10 days. Max Daily Amount: 6 tablets ondansetron 2021- No 4mg Take [address] [facility] [...] needed for up to 7 days. ondansetron 2-0 2- No 4mg Take [address] [facility] [...] needed for up to 7 days. potassium 2021-2021- No 20meq QD Take [address] [facility] [...] r MEQ tablet daily for 5 doses. oxyCODONE-a 2021- No 1{tbl} Take 1 C [...] mg (four) per tablet hours as needed. Vital Signs Vital Name Observation Time Observation Value Comments Source HEIGHT 2023-01-01 12:50:00 154.9 cm WEIGHT 2023-01-01 12:50:00 81.647 kg HEIGHT 2022-12-30 09:15:00 154.9 cm WEIGHT 2022-12-30 09:15:00 82.101 kg WEIGHT 2022-11-03 09:00:00 80.423 kg HEIGHT 2022-08-05 05:17:00 154.9 cm WEIGHT 2022-08-05 05:17:00 83.371 kg HEIGHT 2022-08-05 05:17:00 154.9 cm WEIGHT 2022-08-05 05:17:00 83.371 kg HEIGHT 2022-07-02 10:59:00 154.9 cm WEIGHT 2022-07-02 10:59:00 84.006 kg HEIGHT 2022-07-02 10:59:00 154.9 cm WEIGHT 2022-07-02 10:59:00 84.006 kg WEIGHT 2021-07-10 09:57:00 71.668 kg WEIGHT 2021-07-10 09:57:00 71.668 kg WEIGHT 2021-06-22 07:34:00 73.4 kg HEIGHT 2021-06-03 09:09:00 154.9 cm WEIGHT 2021-06-03 09:09:00 81.6 kg WEIGHT 2021-06-22 07:34:00 73.4 kg HEIGHT 2021-06-03 09:09:00 154.9 cm WEIGHT 2021-06-03 09:09:00 81.6 kg Systolic blood 2022-10-13 17:00:00 107 mm[Hg] [facility] Diastolic blood 2022-10-13 17:00:00 80 mm[Hg] [facility] S [facility] Heart rate 2022-10-13 17:00:00 95 /min [facility] Respiratory rate 2022-10-13 17:00:00 15 /min [facility] Oxygen saturation in 2022-10-13 17:00:00 92 /min [facility] Arterial blood by Medical Ce nter Pulse oximetry Body temperature 2022-10-13 10:38:00 36.56 Anastasiia [facility] Heart rate 2022-08-08 07:38:12 69 /min [facility] Respiratory rate 2022-08-08 07:38:12 17 /min [facility] Oxygen saturation in 2022-08-08 07:38:12 96 /min [facility] Arterial blood by Medical Ce nter Pulse oximetry Body temperature 2022-08-08 07:37:43 36.56 Anastasiia [facility] Systolic blood 2022-08-08 07:37:30 112 mm[Hg] [facility] Diastolic blood 2022-08-08 07:37:30 85 mm[Hg] [facility] Body height 2022-08-05 05:17:00 154.9 cm [facility] Body weight 2022-08-05 05:17:00 83.371 kg [facility] BMI 2022-08-05 05:17:00 34.73 kg/m2 [facility] Systolic blood 2022-07-02 10:59:00 128 mm[Hg] [facility] Diastolic blood 2022-07-02 10:59:00 88 mm[Hg] [facility] Heart rate 2022-07-02 10:59:00 79 /min [facility] Body temperature 2022-07-02 10:59:00 36.67 Anastasiia [facility] Respiratory rate 2022-07-02 10:59:00 18 /min [facility] Body height 2022-07-02 10:59:00 154.9 cm [facility] Body weight 2022-07-02 10:59:00 84.006 kg [facility] BMI 2022-07-02 10:59:00 34.99 kg/m2 [facility] Oxygen saturation in 2022-07-02 10:59:00 98 /min [facility] Arterial blood by Medical Ce nter Pulse oximetry Systolic blood 2021-08-04 12:54:00 106 mm[Hg] [facility] Diastolic blood 2021-08-04 12:54:00 60 mm[Hg] [facility] Heart rate 2021-08-04 12:54:00 78 /min [facility] Respiratory rate 2021-08-04 12:54:00 17 /min [facility] Oxygen saturation in 2021-08-04 12:54:00 97 /min [facility] Arterial blood by Medical Ce nter Pulse oximetry Systolic blood 2021-07-11 11:00:00 110 mm[Hg] [facility] Diastolic blood 2021-07-11 11:00:00 77 mm[Hg] [facility] Heart rate 2021-07-11 11:00:00 69 /min [facility] Body temperature 2021-07-11 11:00:00 36.78 Anastasiia [facility] Respiratory rate 2021-07-11 11:00:00 18 /min [facility] Oxygen saturation in 2021-07-11 11:00:00 99 /min [facility] Arterial blood by Medical Ce nter Pulse oximetry Body weight 2021-07-10 09:57:00 71.668 kg [facility] BMI 2021-07-10 09:57:00 29.87 kg/m2 [facility] Body height 2021-06-03 15:16:00 154.9 cm [facility] Procedures Procedure Date / Time Performing Source Performed Clinician CTA CHEST FOR PULMONARY 2022-10-13 13:55:00 Anju Jin [facility] EMBOLUS [facility] XR CHEST 1 VIEW PORTABLE / 2022-10-13 12:21:[address] [facility] BEDSIDE [facility] CBC W/PLT COUNT & AUTO 2022-10-13 12:16:[address] [facility] DIFFERENTIAL [facility] COMPREHENSIVE METABOLIC 2022-10-13 12:16:[address] [facility] PANEL [facility] B-TYPE NATRIURETIC FACTOR 2022-10-13 12:16:00 [facility]ju [facility] HIGH SENSITIVITY TROPONIN I 2022-10-13 12:16:00 [facility] PT/APTT 2022-10-13 12:16:00 [facility] D-DIMER 2022-10-13 12:16:00 [facility] MAGNESIUM 2022-10-13 12:16:00 [facility] CBC W/PLT COUNT & AUTO 2022-10-13 12:16:00 Elisa [facility] (CELLAVISION MANUAL DIFF) 2022-10-13 12:16:00 Anju Jin I [facility] ECG 12-LEAD 2022-10-13 10:32:42 Unknown, H[facility]7 [facility] ECG 12-LEAD 2022-10-13 10:32:42 Unknown, H[facility] CT CHEST WITH IV CONTRAST 2022-09-16 09:15:00 Marycarmencritical access hospitalmax [facility] MR ABDOMEN WITH & WITHOUT IV 2022-09-16 08:59:00 [facility] POCT-CREATININE 2022-09-16 08:12:00 [facility] POCT-GLUCOSE METER 2022-08-08 07:39:00 [facility] COMPREHENSIVE METABOLIC 2022-08-08 06:55:00 [facility] CBC (HEMOGRAM ONLY) 2022-08-08 06:55:00 [facility] POCT-GLUCOSE METER 2022-08-07 21:02:00 [facility] POCT-GLUCOSE METER 2022-08-07 11:38:00 [facility] POCT-GLUCOSE METER 2022-08-07 10:00[facility] - 2022-08-07 09:46:39 Steven Blanca [facility] ENDOSCOPY URL [facility] [place] ERCP 2022-08-07 09:37:[address] [facility] ENDOSCOPIC RETROGRADE 2022-08-07 09:05:00 Rianna [facility] WITH BILE DUCT STENT INSERTION PROCEDURE W/ C-ARM 2022-08-07 09:05:[address] [facility] POCT-GLUCOSE METER 2022-08-07 07:44:00 [facility] BASIC METABOLIC PANEL 2022-08-07 03:45:00 [facility] PANEL 2022-08-07 03:45:00 [facility] MAGNESIUM 2022-08-07 03:45:[address] CBC W/PLT COUNT & AUTO 2022-08-07 03:45:[address] [facility] CBC W/PLT COUNT & AUTO 2022-08-07 03:45:00 Nando, [facility] (CELLAVISION MANUAL DIFF) 2022-08-07 03:45:00 Manjit Whitaker [facility] POCT-GLUCOSE METER 2022-08-06 20:38:00 [facility] POCT-GLUCOSE METER 2022-08-06 17:02:00 [facility] POCT-GLUCOSE METER 2022-08-06 12:07:00 [facility] POCT-GLUCOSE METER 2022-08-06 07:33:00 [facility] BASIC METABOLIC PANEL 2022-08-06 05:16:[address] [facility] HEPATIC FUNCTION PANEL 2022-08-06 05:16:00 Manjit Whitaker [facility] MAGNESIUM 2022-08-06 05:16:[address] [facility] CBC W/PLT COUNT & AUTO 2022-08-06 05:16:00 Manjit Whitaker [facility] CBC W/PLT COUNT & AUTO 2022-08-06 05:16:00 Manjit Whitaker [facility] (CELLAVISION MANUAL DIFF) 2022-08-06 05:16:00 Manjit Whitaker [facility] POCT-GLUCOSE METER 2022-08-05 21:18:00 Manjit Whitaker [facility] POCT-GLUCOSE METER 2022-08-05 16:51:00 Manjit Whitaker [facility] POCT-GLUCOSE METER 2022-08-05 12:05:00 Manjit Whitaker [facility] BLOOD CULTURE 2022-08-05 12:00:[address] [facility] BLOOD CULTURE 2022-08-05 11:26:[address] [facility] BASIC METABOLIC PANEL 2022-08-05 11:26:[address] [facility] HEPATIC FUNCTION PANEL 2022-08-05 11:26:00 Manjit Whitaker [facility] MAGNESIUM 2022-08-05 11:26:[address] [facility] CBC W/PLT COUNT & AUTO 2022-08-05 11:26:00 Manjit Whitaker [facility] HIGH SENSITIVITY TROPONIN I 2022-08-05 11:26:[address] [facility] CBC W/PLT COUNT & AUTO 2022-08-05 11:26:00 [facility]CELL[facility]ISION [facility]UAL DIFF) 2022-08-05 11:26:00 Manjit Whitaker [facility] EKG-SCANNED 2022-08-05 00:00:00 [facility] MR ABDOMEN WITH & WITHOUT IV 2022-05-28 12:47:00 [facility] CT CHEST WITH IV CONTRAST 2022-05-28 10:10:00 [facility] POCT-CREATININE 2022-02-04 14:08:00 Priscilla Palacios [facility] MR ABDOMEN WITH & WITHOUT IV 2022-01-06 15:12:00 Brady [facility] CBC W/PLT COUNT & AUTO 2021-12-29 08:47:[address] [facility] COMPREHENSIVE METABOLIC 2021-12-29 08:47:00 [facility] 2021-12-29 08:47:00 [facility] CBC W/PLT COUNT & AUTO 2021-12-29 08:47:[address] [facility] MAGNESIUM 2021-12-19 07:55:00 [facility] CBC W/PLT COUNT & AUTO 2021-12-19 07:55:[address] [facility] COMPREHENSIVE METABOLIC 2021-12-19 07:55:00 [address] [facility] CBC W/PLT COUNT & AUTO 2021-12-19 07:55:[address] [facility] MAGNESIUM 2021-12-05 08:29:00 [facility] CBC W/PLT COUNT & AUTO 2021-12-05 08:29:00 [facility] 2021-12-05 08:29:00 [facility] CBC W/PLT COUNT & AUTO 2021-12-05 08:29:[address] [facility] (MANUAL DIFFERENTIAL) 2021-12-05 08:29:00 [facility] CBC W/PLT COUNT & AUTO 2021-11-28 08:14:00 Marycarmencritical access [facility]max[facility] CBC W/PLT COUNT & AUTO 2021-11-28 08:14:00 [facility] 2021-11-28 08:13:00 [facility] 2021-11-28 08:13:00 [facility] NM BONE SCAN WHOLE BODY 2021-11-21 15:24:00 Marycarmencritical access hospitalmax [facility] ABDOMEN/PELVIS WITH IV 2021-11-21 10:55:00 [facility] CONTRAST [facility] CT CHEST WITH IV CONTRAST 2021-11-21 10:55:00 [facility] CBC W/PLT COUNT & AUTO 2021-11-14 08:05:00 [facility] 2021-11-14 08:05:00 [facility] MAGNESIUM 2021-11-14 08:05:00 [facility] CBC W/PLT COUNT & AUTO 2021-11-14 08:05:00 [facility] (MANUAL DIFFERENTIAL) 2021-11-14 08:05:00 [facility] NM BONE SCAN WHOLE BODY 2021-08-04 13:34:00 [facility]carmencritical [facility] IR PORT-A-CATH PLACEMENT 2021-08-04 11:53:[address] [facility] PROTHROMBIN TIME/INR 2021-08-04 09:34:[address] [facility] PLATELET COUNT 2021-08-04 09:34:[address] [facility] CT ABDOMEN/PELVIS WITH IV 2021-07-28 15:10:00 [facility] CHEST WITH IV CONTRAST 2021-07-28 15:10:00 [facility] CALCIUM, IONIZED 2021-07-11 04:45:00 [facility] COMPREHENSIVE METABOLIC 2021-07-11 04:45:00 [facility] MAGNESIUM 2021-07-11 04:45:00 [facility] CBC W/PLT COUNT & AUTO 2021-07-11 04:45:00 [facility] CBC W/PLT COUNT & AUTO 2021-07-11 04:45:00 [facility] POCT-GLUCOSE METER 2021-07-10 21:31:00 Estrada [facility] POCT-GLUCOSE METER 2021-07-10 16:46:00 Estrada [facility] REPORT OF PROCEDURE - 2021-07-10 13:34:11 Johanne [facility] ENDOSCOPY URL [facility] POCT-GLUCOSE METER 2021-07-10 12:35:00 Estrada [facility] [place] ERCP 2021-07-10 12:10:00 Johanne [facility] ENDOSCOPIC RETROGRADE 2021-07-10 10:49:00 Johanne [facility] CHOLANGIOPANCREATOGRAPHY, [facility] WITH BILE DUCT STENT INSERTION PROCEDURE W/ C-ARM 2021-07-10 10:49:00 Johanne [facility] ENDOSCOPIC RETROGRADE 2021-07-10 10:49:00 [facility] CHOLANGIOPANCREATOGRAPHY, [facility] WITH STENT REMOVAL ERCP, WITH BALLOON SWEEP OF 2021-07-10 10:49:[address] [facility] BILE DUCTS [facility] ENDOSCOPIC RETROGRADE 2021-07-10 10:49:00 [facility] CHOLANGIOPANCREATOGRAPHY, [facility] WITH BALLOON DILATION POCT-GLUCOSE METER 2021-07-10 07:11:00 Estrada, [facility] CALCIUM, IONIZED 2021-07-10 04:10:00 [facility] COMPREHENSIVE METABOLIC 2021-07-10 04:10:00 [facility] MAGNESIUM 2021-07-10 04:10:00 [facility] PHOSPHORUS 2021-07-10 04:10:00 [facility] CBC W/PLT COUNT & AUTO 2021-07-10 04:10:00 [facility] CBC W/PLT COUNT & AUTO 2021-07-10 04:10:00 [facility] POCT-GLUCOSE METER 2021-07-09 20:20:00 Estrada, [facility] POCT-GLUCOSE METER 2021-07-09 16:17[facility] (HS & REF 2021-07-09 14:50:00 Radha Thao [facility] POCT-GLUCOSE METER 2021-07-09 11:08:00 Estrada, [facility] POCT-GLUCOSE METER 2021-07-09 07:29:00 Lisa Thao [facility] HEPATIC FUNCTION PANEL 2021-07-09 05:53:[address] [facility] CBC W/PLT COUNT & AUTO 2021-07-09 05:53:00 [facility] COMPREHENSIVE METABOLIC 2021-07-09 05:53:00 [facility] 2021-07-09 05:53:00 [facility] 2021-07-09 05:53:00 [facility] 2021-07-09 05:53:00 [facility] CBC W/PLT COUNT & AUTO 2021-07-09 05:53:00 Anna Wilburn [facility] DIFFERENTIAL [facility] POCT-GLUCOSE METER 2021-07-08 21:24:00 [facility]ABOLIC PANEL 2021-07-08 19:04:00 [facility] POCT-GLUCOSE METER 2021-07-08 17:10:00 [facility] POCT-GLUCOSE METER 2021-07-08 11:54:00 [facility]SE [facility] 2021-07-08 07:42:00 [facility] BASIC METABOLIC PANEL 2021-07-08 03:35:00 [facility] PANEL 2021-07-08 03:35:[address]burn [facility] CBC W/PLT COUNT & AUTO 2021-07-08 03:35:00 [facility] DIFFERENTIAL [facility] B-TYPE NATRIURETIC FACTOR 2021-07-08 03:35:00 Nikunj Barrett [facility] (BNP) [facility] PHOSPHORUS 2021-07-08 03:35:00 Nikunj Barrett [facility] MAGNESIUM 2021-07-08 03:35:00 Nikunj Barrett [facility] CBC W/PLT COUNT & AUTO 2021-07-08 03:35:00 Anna Wilburn [facility] DIFFERENTIAL [facility] POCT-GLUCOSE METER 2021-07-07 21:14:00 [facility] BASIC METABOLIC PANEL 2021-07-07 21:08:00 Nikunj Barrett [facility] URINALYSIS W/ MICROSCOPIC 2021-07-07 21:02:00 Nikunj Barrett [facility] SODIUM, RANDOM URINE 2021-07-07 21:02:00 Nikunj Barrett [facility] CREATININE, RANDOM URINE 2021-07-07 21:02:00 Nikunj Barrett [facility] EOSINOPHIL SMEAR, URINE 2021-07-07 21:02:00 Nikunj Barrett [facility] PROTEIN, RANDOM URINE 2021-07-07 21:02:00 Nikunj Barrett [facility] US RENAL COMPLETE 2021-07-07 17:55:00 Nikunj Barrett [facility] BLOOD CULTURE 2021-07-07 15:23:00 Akila [facility] BASIC METABOLIC PANEL 2021-07-07 14:04:00 Akila [facility] HEPATIC FUNCTION PANEL 2021-07-07 14:04:00 Akila [facility] CBC W/PLT COUNT & AUTO 2021-07-07 14:04:00 Akila [facility] DIFFERENTIAL [facility] CBC W/PLT COUNT & AUTO 2021-07-07 14:04:00 Akila [facility] DIFFERENTIAL [facility] POCT-GLUCOSE METER 2021-07-07 11:24:[address] [facility] POCT-GLUCOSE METER 2021-06-26 08:13:00 [facility] BASIC METABOLIC PANEL 2021-06-26 05:07:00 [facility] CALCIUM, IONIZED 2021-06-26 05:07:00 [facility] PHOSPHORUS 2021-06-26 05:07:00 [facility] W/[facility]T [facility] & AUTO 2021-06-26 05:07:[address] [facility] MAGNESIUM 2021-06-26 05:07:00 Wilber [facility] CBC W/PLT COUNT & AUTO 2021-06-26 05:07:[address] [facility] POCT-GLUCOSE METER 2021-06-25 21:17:00 Wilber [facility] POCT-GLUCOSE METER 2021-06-25 16:26:00 [facility] SARS-COV2/RT-PCR ([facility] & REF 2021-06-25 14:06:00 Antonio Espinoza [facility] LABS) [facility] XR ABDOMEN/KUB 1 VIEW 2021-06-25 13:45:00 Wilber [facility] POCT-GLUCOSE METER 2021-06-25 12:04:00 Zanderokmatthew [facility] POCT-GLUCOSE METER 2021-06-25 07:55:00 Wilber [facility] CBC W/PLT COUNT & AUTO 2021-06-25 06:08:[address] [facility] MAGNESIUM 2021-06-25 06:08:00 [facility] CALCIUM, IONIZED 2021-06-25 06:08:00 [facility] COMPREHENSIVE METABOLIC 2021-06-25 06:08:00 [facility] PHOSPHORUS 2021-06-25 06:08:00 [facility] CBC W/PLT COUNT & AUTO 2021-06-25 06:08:[address] [facility] POCT-GLUCOSE METER 2021-06-24 21:02:00 [facility] CALCIUM, IONIZED 2021-06-24 12:02:00 [facility] BASIC METABOLIC PANEL 2021-06-24 12:02:00 [facility] POCT-GLUCOSE METER 2021-06-24 11:23:00 Wilber [facility] URINALYSIS W/ MICROSCOPIC 2021-06-24 07:41:00 Jeffrey [facility] SODIUM, RANDOM URINE 2021-06-24 07:40:00 [facility] PROTEIN, RANDOM URINE 2021-06-24 07:40:00 [facility] CREATININE, RANDOM URINE 2021-06-24 07:40:00 [facility] PHOSPHORUS 2021-06-24 05:05:00 Wilber [facility] CALCIUM, IONIZED 2021-06-24 05:05:00 Wilber [facility] CBC W/PLT COUNT & AUTO 2021-06-24 05:05:[address] [facility] MAGNESIUM 2021-06-24 05:05:00 Wilber [facility] COMPREHENSIVE METABOLIC 2021-06-24 05:05:00 [facility] B-TYPE NATRIURETIC FACTOR 2021-06-24 05:05:00 [facility] CREATINE KINASE (CK) 2021-06-24 05:05:00 [facility] URIC ACID 2021-06-24 05:05:00 [facility] CBC W/PLT COUNT & AUTO 2021-06-24 05:05:[address] [facility] POCT-GLUCOSE METER 2021-06-23 21:24:00 Wilber [facility] BASIC METABOLIC PANEL 2021-06-23 19:51:00 [facility] XR CHEST 1 VIEW PORTABLE / 2021-06-23 18:47:00 Russell Murphy [facility] POCT-GLUCOSE METER 2021-06-23 17:07:00 Wilber [facility] CT ABDOMEN/PELVIS WITHOUT IV 2021-06-23 15:03:00 Vielka Valle [facility] CONTRAST [facility] POCT-GLUCOSE METER 2021-06-23 11:21:00 [facility] 2021-06-23 07:26:00 [facility] BASIC METABOLIC PANEL 2021-06-23 04:24:00 [facility] CALCIUM, IONIZED 2021-06-23 04:24:00 [facility] PHOSPHORUS 2021-06-23 04:24:00 Wilber [facility] CBC W/PLT COUNT & AUTO 2021-06-23 04:24:[address] [facility] MAGNESIUM 2021-06-23 04:24:00 [facility] CBC W/PLT COUNT & AUTO 2021-06-23 04:24:[address] [facility] POCT-GLUCOSE METER 2021-06-22 21:14:00 [facility] 2021-06-22 17:18:00 Wilber [facility] XR ABDOMEN/KUB 1 VIEW 2021-06-22 13:34:00 [facility] POCT-GLUCOSE METER 2021-06-22 06:47:[address] [facility]SE [facility]ER 2021-06-21 21:07:[address] [facility] PO[facility]UCOSE METER 2021-06-21 17:22:00 [facility] HEPATIC FUNCTION PANEL 2021-06-21 12:39:00 [facility] CBC W/PLT COUNT & AUTO 2021-06-21 12:39:00 [facility] BASIC METABOLIC PANEL 2021-06-21 12:39:00 [facility] CBC W/PLT COUNT & AUTO 2021-06-21 12:39:00 [facility] POCT-GLUCOSE METER 2021-06-21 12:15:00 [facility] POCT-GLUCOSE METER 2021-06-21 07:36:00 [facility] POCT-GLUCOSE METER 2021-06-20 20:55:00 [facility] POCT-GLUCOSE METER 2021-06-20 17:06:00 [facility] POCT-GLUCOSE METER 2021-06-20 07:54:00 [facility] XR ABDOMEN/KUB 1 VIEW 2021-06-20 02:01:00 Shon Bang [facility] POCT-GLUCOSE METER 2021-06-19 21:39:00 [facility] POCT-GLUCOSE METER 2021-06-19 16:30:00 [facility] POCT-GLUCOSE METER 2021-06-19 11:17:00 [facility] POCT-GLUCOSE METER 2021-06-19 07:59:00 [facility] HEPATIC FUNCTION PANEL 2021-06-19 04:21:00 [facility] POCT-GLUCOSE METER 2021-06-18 21:31:00 [facility] SARS-COV2/RT-PCR (HS & REF 2021-06-18 17:57:00 JeanaAntonio choudhary [facility] POCT-GLUCOSE METER 2021-06-18 17:19:00 [facility] POCT-GLUCOSE METER 2021-06-18 11:38:00 [facility] PO[facility]SE METER 2021-06-18 07:43:00 [facility] HEPATIC FUNCTION PANEL 2021-06-18 04:23:00 [facility] POCT-GLUCOSE METER 2021-06-17 20:54:00 [facility] POCT-GLUCOSE METER 2021-06-17 17:37:00 [facility] HEPATIC FUNCTION PANEL 2021-06-17 04:35:00 [facility] POCT-GLUCOSE METER 2021-06-16 20:41:00 [facility] POCT-GLUCOSE METER 2021-06-16 17:29:00 [facility] BASIC METABOLIC PANEL 2021-06-16 16:26:00 [facility] POCT-GLUCOSE METER 2021-06-16 11:58:00 [facility] POCT-GLUCOSE METER 2021-06-16 07:17:00 [facility] HEPATIC FUNCTION PANEL 2021-06-16 05:05:00 [facility] POCT-GLUCOSE METER 2021-06-15 21:01:00 [facility] POCT-[facility]UCOSE METER 2021-06-15 16:52:00 [facility] POCT-GLUCOSE METER 2021-06-15 11:41:00 [facility] POCT-GLUCOSE METER 2021-06-15 07:50:00 [facility] HEPATIC FUNCTION PANEL 2021-06-15 04:30:00 [facility] POCT-GLUCOSE METER 2021-06-14 20:56:00 [facility] POCT-GLUCOSE METER 2021-06-14 16:33:00 [facility] POCT-GLUCOSE METER 2021-06-14 11:24:00 [facility] POCT-GLUCOSE METER 2021-06-14 07:27:00 [facility] POCT-GLUCOSE METER 2021-06-13 21:05:00 [facility] POCT-GLUCOSE METER 2021-06-13 16:45:00 [facility] BASIC METABOLIC PANEL 2021-06-13 12:05:00 [facility] HEPATIC FUNCTION PANEL 2021-06-13 12:05:00 [facility] POCT-GLUCOSE METER 2021-06-13 11:32:00 [facility] 2021-06-13 07:12:00 [facility] POCT-GLUCOSE METER 2021-06-12 20:54:00 [facility] PO[facility]-GLUCOSE METER 2021-06-12 18:18:00 [facility] IR PERCUTANEOUS 2021-06-12 17:49:00 [facility] CHOLANGIOGRAM [facility] TISSUE EXAM 2021-06-12 17:40:00 [facility] PROCEDURE DONE OUTSIDE OR 2021-06-12 13:00:00 Surgeon Matthew Patel [facility] PROCEDURE, IN NON-OPERATING 2021-06-12 13:00:00 Surgeon Amanda [facility] SARS-COV2/RT-PCR ([facility] & REF 2021-06-12 12:50:00 [facility]) [facility] POCT-GLUCOSE METER 2021-06-12 08:06:00 [facility] POCT-GLUCOSE METER 2021-06-11 21:22:00 [facility] POCT-GLUCOSE METER 2021-06-11 17:15:00 [facility] POCT-GLUCOSE METER 2021-06-11 07:39:00 [facility] COMPREHENSIVE METABOLIC 2021-06-11 04:21:00 Blanca [facility] CBC W/PLT COUNT & AUTO 2021-06-11 04:21:00 Rianna [facility] CBC W/PLT COUNT & AUTO 2021-06-11 04:21:00 Rianna [facility] POCT-GLUCOSE METER 2021-06-10 21:10:00 [facility] POCT-GLUCOSE METER 2021-06-10 17:23:00 [facility] POCT-GLUCOSE METER 2021-06-10 14:11:00 [facility] NM BONE SCAN WHOLE BODY 2021-06-10 12:57:00 JeanaJessica choudhary [facility] POCT-GLUCOSE METER 2021-06-10 08:34:00 [facility]PREHENS[facility]ABOLIC 2021-06-10 03:59:00 Rianna [facility] CBC W/PLT COUNT & AUTO 2021-06-10 03:59:00 Rianna [facility] CBC W/PLT COUNT & AUTO 2021-06-10 03:59:00 Rianna [facility] POCT-GLUCOSE METER 2021-06-09 23:05:00 [facility]ST WITH IV CONTRAST 2021-06-09 20:24:00 [facility] POCT-GLUCOSE METER 2021-06-09 17:06:00 [facility] POCT-GLUCOSE METER 2021-06-09 11:32:00 [facility] COMPREHENSIVE METABOLIC 2021-06-09 09:30:00 Rianna [facility] CBC W/PLT COUNT & AUTO 2021-06-09 09:30:00 Rianna [facility] CBC W/PLT COUNT & AUTO 2021-06-09 09:30:00 Rianna [facility] POCT-GLUCOSE METER 2021-06-09 07:39:00 [facility] POCT-GLUCOSE METER 2021-06-08 21:21:00 [facility] POCT-GLUCOSE METER 2021-06-08 17:26:00 [facility] POCT-GLUCOSE METER 2021-06-08 11:18:00 [facility] REPORT OF PROCEDURE - 2021-06-08 10:35:34 [facility] URL [facility] CBC W/PLT COUNT & AUTO 2021-06-08 10:12:00 Juan Alberto Martinez[facility] COMPREHENSIVE METABOLIC 2021-06-08 10:12:00 Avendano Noyola, [facility] PANEL [facility] CBC W/PLT COUNT & AUTO 2021-06-08 10:12:00 Avendano Noyola [facility] POCT-GLUCOSE METER 2021-06-08 07:41:00 [facility] POCT-GLUCOSE METER 2021-06-07 21:11:00 [facility] POCT-GLUCOSE METER 2021-06-07 17:14:00 [facility] POCT-GLUCOSE METER 2021-06-07 12:48:00 [facility] POCT-GLUCOSE METER 2021-06-07 11:30:00 [facility] CYTOLOGY 2021-06-07 11:18:00 rosi [facility] CYTOLOGY REQUEST 2021-06-07 11:18:00 Johanne [facility] [place] ERCP 2021-06-07 11:07:00 Johanne [facility] TISSUE EXAM 2021-06-07 10:53:00 Johanne [facility] ENDOSCOPIC RETROGRADE 2021-06-07 09:23:00 Johanne [facility] CHOLANGIOPANCREATOGRAPHY, [facility] WITH DIRECT DUCT VISUALIZATION, USING PANCREATICOBILIARY FIBEROPTIC PROBE PROCEDURE W/ C-ARM 2021-06-07 09:23:00 Johanne [facility] ENDOSCOPIC RETROGRADE 2021-06-07 09:23:00 [facility] CHOLANGIOPANCREATOGRAPHY, [facility] WITH SPHINCTEROTOMY ENDOSCOPIC RETROGRADE 2021-06-07 09:23:00 [facility], [facility] WITH BILE DUCT STENT INSERTION ENDOSCOPIC RETROGRADE 2021-06-07 09:23:00 [facility], [facility] WITH BIOPSY POCT-GLUCOSE METER 2021-06-07 07:27:00 [facility] POCT-GLUCOSE METER 2021-06-06 22:24:00 [facility] POCT-GLUCOSE METER 2021-06-06 17:17:00 [facility] POCT-GLUCOSE METER 2021-06-06 12:23:00 [facility] POCT-GLUCOSE METER 2021-06-06 08:04:00 [facility] POCT-GLUCOSE METER 2021-06-05 21:04:00 [facility] POCT-GLUCOSE METER 2021-06-05 17:45:00 [facility] POCT-GLUCOSE METER 2021-06-05 12:00:00 [facility] POCT-GLUCOSE METER 2021-06-05 07:52:00 [facility] HEPATITIS B SURFACE ANTIBODY 2021-06-05 04:48:00 Jodie Alba [facility] POCT-GLUCOSE METER 2021-06-04 21:08:00 [facility] POCT-GLUCOSE METER 2021-06-04 17:05:00 [facility] MR ABDOMEN WITH & WITHOUT IV 2021-06-04 16:54:00 Luiz, Goran Limon [facility] POCT-GLUCOSE METER 2021-06-04 11:13:00 JesusJessica joshi [facility] POCT-GLUCOSE METER 2021-06-04 08:01:00 Goran Dee [facility] BASIC METABOLIC PANEL 2021-06-04 05:01:00 Luiz, Goran Limon [facility] HEPATIC FUNCTION PANEL 2021-06-04 05:01:00 Luiz, Goran Limon [facility] MAGNESIUM 2021-06-04 05:01:00 Goran Dee [facility] PHOSPHORUS 2021-06-04 05:01:00 Luiz, [facility] CBC W/PLT COUNT & AUTO 2021-06-04 05:01:00 [facility] PROT[facility]/INR 2021-06-04 05:01:00 [facility]iz, [facility] HEMOGLOBIN A1C 2021-06-04 05:01:00 [facility] W/PLT COUNT & AUTO 2021-06-04 05:01:00 Luiz [facility] POCT-GLUCOSE METER 2021-06-03 21:14:00 Jonathan Deedenison Bra[facility] POCT-GLUCOSE METER 2021-06-03 17:28:00 Luiz [facility] OSI CHEST 2021-06-03 17:15:00 Jakob Sanches o f [facility] er Center OSI CT ABDOMEN AND PELVIS 2021-06-03 17:12:00 [facility] CARCINOEMBRYONIC ANTIGEN 2021-06-03 15:31:[address] [facility] ([facility]) [facility] CARBOHYDRATE ANTIGEN 19-9 2021-06-03 15:31:[address] [facility] ([place] 19-9) [facility] HEPATITIS C ANTIBODY 2021-06-03 15:31:00 [facility] HEPATITIS B CORE ANTIBODY, 2021-06-03 15:31:00 GermaniaMariam steiner [facility] HEPATITIS B SURFACE ANTIGEN 2021-06-03 15:31:00 [facility] CERULOPLASMIN 2021-06-03 15:31:00 Germania [facility] ANTI-NUCLEAR ANTIBODY (MORENA) 2021-06-03 15:31:00 [facility] ACTIN (SMOOTH MUSCLE) 2021-06-03 15:31:00 Mariam Solo [facility] ANTIBODY, IGG [facility] ANTI-MITOCHONDRIAL AB, 2021-06-03 15:31:00 GermaniaMariam [facility] REFLEX TO TITER [facility] [id number]\\, SERUM 2021-06-03 15:31:00 Germania [facility] EBV ANTIBODY, IGG 2021-06-03 15:31:00 [facility]am [facility] CYTOMEGALOVIRUS ANTIBODY, 2021-06-03 15:31:00 GermaniaMariam [facility] LIVER-KIDNEY MICROSOME AB 2021-06-03 15:31:00 [facility] MITOCHONDRIAL AB SCREEN 2021-06-03 15:31:00 [facility] MITOCHONDRIAL AB TITER 2021-06-03 15:31:00 [facility] Mariam [facility] POCT-GLUCOSE METER 2021-06-03 11:21:00 Jonathan [facility]ison [facility] COMPREHENSIVE METABOLIC 2021-06-03 11:17:00 Goran Dee [facility] CBC W/PLT COUNT & AUTO 2021-06-03 11:17:00 [facility] PROTHROMBIN TIME/INR 2021-06-03 11:17:00 [facility] ALPHA FETOPROTEIN (AFP), 2021-06-03 11:17:[address] [facility] TUMOR MARKER [facility] BILIRUBIN, DIRECT 2021-06-03 11:17:00 [facility] HEPATITIS A ANTIBODY, IGG 2021-06-03 11:17:00 [facility] HEPATITIS A ANTIBODY, IGM 2021-06-03 11:17:00 [facility] FERRITIN 2021-06-03 11:17:00 [facility] IRON, TIBC, % SAT. (WITHOUT 2021-06-03 11:17:00 [facility] FERRITIN) [facility] LIPID PANEL 2021-06-03 11:17:00 [facility] HC LAB HIV-1 AG W/HIV-1&2 AB 2021-06-03 11:17:00 [facility] CBC W/PLT COUNT & AUTO 2021-06-03 11:17:00 Goran Dee [facility] OSI CT ABDOMEN AND PELVIS 2021-05-29 17:15:00 Jakob Sanches [facility] Plan of Care Planned Activity Planned Date Details Comments Source Future Scheduled 2025-06-01 Lipid panel (procedure) [facility] 00:00:00 [code = [id number]] Medical Ce nter Future Scheduled 2025-06-01 Lipid panel (procedure) [facility] 00:00:00 [code = [id number]] Medical Ce nter Future Scheduled 2025-06-01 Lipid panel (procedure) [facility] 00:00:00 [code = [id number]] Medical Ce nter Future Scheduled 2025-06-01 Lipid panel (procedure) [facility] 00:00:00 [code = [id number]] Medical Ce nter Future Scheduled 2025-06-01 Lipid panel (procedure) [facility] 00:00:00 [code = [id number]] Medical Ce nter Future Scheduled 2025-06-01 Lipid panel (procedure) [facility] 00:00:00 [code = [id number]] Medical Ce nter Future Scheduled 2025-06-01 Lipid panel (procedure) [facility] 00:00:00 [code = [id number]] Medical Ce nter Future Scheduled 2025-06-01 Lipid panel (procedure) [facility] 00:00:00 [code = [id number]] Medical Ce nter Future Scheduled 2025-06-01 Lipid panel (procedure) [facility] 00:00:00 [code = [id number]] Medical Ce nter Future Scheduled 2025-06-01 Lipid panel (procedure) [facility] 00:00:00 [code = [id number]] Medical Ce nter Future Scheduled 2025-06-01 Lipid panel (procedure) [facility] 00:00:00 [code = [id number]] Medical Ce nter Future Scheduled 2025-06-01 Lipid panel (procedure) [facility] 00:00:00 [code = 25884485] Medical Ce nter Future Scheduled 2025-06-01 Lipid panel (procedure) [facility] 00:00:00 [code = 00777030] Medical Ce nter Future Scheduled 2025-06-01 Lipid panel (procedure) [facility] 00:00:00 [code = [id number]] Medical Ce nter Future Scheduled 2025-06-01 Lipid panel (procedure) [facility] 00:00:00 [code = 52760900] Medical Ce nter Future Scheduled 2025-06-01 Lipid panel (procedure) [facility] 00:00:00 [code = 68038490] Medical Ce nter Future Scheduled 2025-06-01 Lipid panel (procedure) [facility] 00:00:00 [code = 97444245] Medical Ce nter Future Scheduled 2025-06-01 Lipid panel (procedure) [facility] 00:00:00 [code = 05029507] Medical Ce nter Future Scheduled 2025-06-01 Lipid panel (procedure) [facility] 00:00:00 [code = 33949019] Medical Ce nter Future Scheduled 2025-06-01 Lipid panel (procedure) [facility] 00:00:00 [code = 77413254] Medical Ce nter Future Scheduled 2025-06-01 Lipid panel (procedure) [facility] 00:00:00 [code = 44898577] Medical Ce nter Future Scheduled 2025-06-01 Lipid panel (procedure) [facility] 00:00:00 [code = 18919691] Medical Ce nter Future Scheduled 2025-06-01 Lipid panel (procedure) [facility] 00:00:00 [code = 82086924] Medical Ce nter Future Scheduled 2025-06-01 Lipid panel (procedure) [facility] 00:00:00 [code = 39273024] Medical Ce nter Future Scheduled 2025-06-01 Lipid panel (procedure) [facility] 00:00:00 [code = 28405243] Medical Ce nter Future Scheduled 2025-06-01 Lipid panel (procedure) [facility] 00:00:00 [code = 41839248] Medical Ce nter Future Scheduled 2025-06-01 Lipid panel (procedure) [facility] 00:00:00 [code = 93655385] Medical Ce nter Future Scheduled 2025-06-01 Lipid panel (procedure) [facility] 00:00:00 [code = 13009844] Medical Ce nter Future Scheduled 2025-06-01 Lipid panel (procedure) [facility] 00:00:00 [code = 39886686] Medical Ce nter Future Scheduled 2025-06-01 Lipid panel (procedure) [facility] 00:00:00 [code = 22790736] Medical Ce nter Future Scheduled 2025-06-01 Lipid panel (procedure) [facility] 00:00:00 [code = 43015447] Medical Ce nter Future Scheduled 2025-06-01 Lipid panel (procedure) [facility] 00:00:00 [code = 23948559] Medical Ce nter Future Scheduled 2024-06-03 Lipid panel (procedure) [facility] 00:00:00 [code = 79300775] Medical Ce nter Future Scheduled 2024-06-03 Lipid panel (procedure) [facility] 00:00:00 [code = 66673391] Medical Ce nter Future Scheduled 2024-06-03 Lipid panel (procedure) [facility] 00:00:00 [code = 44233621] Medical Ce nter Future Scheduled 2024-06-03 Lipid panel (procedure) [facility] 00:00:00 [code = 62123756] Medical Ce nter Future Scheduled 2024-06-03 Lipid panel (procedure) [facility] 00:00:00 [code = 30124255] Medical Ce nter Future Scheduled 2024-06-03 Lipid panel (procedure) [facility] 00:00:00 [code = 40086648] Medical Ce nter Future Scheduled 2024-06-03 Lipid panel (procedure) [facility] 00:00:00 [code = 21647988] Medical Ce nter Future Scheduled 2024-06-03 Lipid panel (procedure) [facility] 00:00:00 [code = 57682642] Medical Ce nter Future Scheduled 2023-10-[address] [facility] 00:00:00 [facility] (12+) [code = Tobacco Cessation Counseling and Screening (12+)] Future Scheduled 2023-10-[address] [facility] 00:00:00 [facility] Scre[facility] (12+) [code = Tobacco Cessation Counseling and Screening (12+)] Future Scheduled 2023-10-[address] [facility] 00:00:00 [facility] Screening (12+) [code = Tobacco Cessation Counseling and Screening (12+)] Future Scheduled 2023-10-[address] [facility] 00:00:00 [facility] Screening (12+) [code = Tobacco Cessation Counseling and Screening (12+)] Future Scheduled 2023-10-[address] [facility] 00:00:00 [facility] Screening (12+) [code = Tobacco Cessation Counseling and Screening (12+)] Future Scheduled 2023-08-[address] [facility] 00:00:00 [facility] Screening (12+) [code = Tobacco Cessation Counseling and Screening (12+)] Future Scheduled 2023-08-[address] [facility] 00:00:00 [facility] Screening (12+) [code = Tobacco Cessation Counseling and Screening (12+)] Future Scheduled 2023-08-[address] [facility] 00:00:00 [facility] Screening (12+) [code = Tobacco Cessation Counseling and Screening (12+)] Future Scheduled 2023-08-[address] [facility] 00:00:00 [facility] Screening (12+) [code = Tobacco Cessation Counseling and Screening (12+)] Future Scheduled 2023-08-[address] [facility] 00:00:00 [facility] r Screening (12+) [code = Tobacco Cessation Counseling and Screening (12+)] Future Scheduled 2023-08-[address] [facility] 00:00:00 [facility] Screening (12+) [code = Tobacco Cessation Counseling and Screening (12+)] Future Scheduled 2023-08-[address] [facility] 00:00:00 [facility] Screening (12+) [code = Tobacco Cessation Counseling and Screening (12+)] Future Scheduled 2023-08-[address] [facility] [facility] [code = Tobacco Cessation Counseling and Screening (12+)] Future Scheduled 2023-08-[address] [facility] 00:[facility] (12[facility] [code = Tobacco Cessation Counseling and Screening (12+)] Future Scheduled 2023-08-[address] [facility] 00:00[facility] (12+) [code = Tobacco Cessation Counseling and Screening (12+)] Future Scheduled 2023-08-[address] [facility] 00:00[facility] (12+) [code = Tobacco Cessation Counseling and Screening (12+)] Future Scheduled 2023-08-[address] [facility] 00:00[facility] (12+) [code = Tobacco Cessation Counseling and Screening (12+)] Future Scheduled 2023-08-[address] [facility] 00:00:[facility] (12+) [code = Tobacco Cessation Counseling and Screening (12+)] Future Scheduled 2023-08-[address] [facility] 00:00[facility] (12+) [code = Tobacco Cessation Counseling and Screening (12+)] Future Scheduled 2023-08-[address] [facility] 00:00:[facility] (12+) [code = Tobacco Cessation Counseling and Screening (12+)] Future Scheduled 2023-08-[address] [facility] 00:00[facility] (12+) [code = Tobacco Cessation Counseling and Screening (12+)] Future Scheduled 2023-08-[address] [facility] 00:00[facility] (12+) [code = Tobacco Cessation Counseling and Screening (12+)] Future Scheduled 2023-08-[address] [facility] 00:00[facility] (12+) [code = Tobacco Cessation Counseling and Screening (12+)] Future Scheduled 2023-08-[address] [facility] 00:00[facility] (12+) [code = Tobacco Cessation Counseling and Screening (12+)] Future Scheduled 2023-08-[address] [facility] 00:00:00 [...] Cessation Counseling and Screening (12+)] Future Scheduled 2022-06-21 [facility] (12+)] Future Scheduled 2022-02-19 INFLUENZA VACCINE (#1) [facility] [code = INFLUENZA [facility] Ce [facility]ter VACCINE (#1)] Future Scheduled 2022-02-19 INFLUENZA VACCINE (#1) [facility]:00:00 [code = INFLUENZA [facility] Ce [facility]ter VACCINE (#1)] Future Scheduled 2022-02-19 INFLUENZA VACCINE (#1) [facility] 00:00:00 [code = INFLUENZA Medical Ce [facility]ter VACCINE (#1)] Future Scheduled 2022-02-19 INFLUENZA VACCINE (#1) [facility] 00:00:00 [code = INFLUENZA [facility] Ce [facility]ter VACCINE (#1)] Future Scheduled 2022-02-19 INFLUENZA VACCINE (#1) [facility] 00:00:00 [code = INFLUENZA [facility] Ce [facility]ter VACCINE (#1)] Future Scheduled 2022-02-19 INFLUENZA VACCINE (#1) [facility] 00:00:00 [code = INFLUENZA Medical Ce [facility]ter VACCINE (#1)] Future Scheduled 2021-12-[address] [facility] [code = [id number]] Future Scheduled 2021-12-[address] [facility] 00[facility]00[facility]00 [facility]procedure[facility] [code = [id number]] Future Scheduled 2021-12-[address] [facility] 00:00:00 [facility]procedure[facility] [code = [id number]] Future Scheduled 2021-12-[address] [facility] 00:00:00 [facility]procedure[facility] [code = [id number]] Future Scheduled 2021-12-[address] [facility] 00:00:00 [facility]procedure[facility] [code = [id number]] Future Scheduled 2021-12-[address] [facility] 00:00:00 [facility]procedure[facility] [code = [id number]] Future Scheduled 2021-12-[address] [facility] 00:00:00 [facility]procedure[facility] [code = [id number]] Future Scheduled 2021-12-[address] [facility] 00:00:00 [facility]procedure[facility] [code = [id number]] Future Scheduled 2021-12-[address] [facility] 00:00:00 [facility]procedure[facility] [code = [id number]] Future Scheduled 2021-12-[address] [facility] 00:00:00 [facility]procedure[facility] [code = [id number]] Future Scheduled 2021-12-[address] [facility] 00:00:00 [facility]procedure) [facility] [code = [id number]] Future Scheduled 2021-12-[address] [facility] 00:00:00 [facility]procedure[facility] [code = [id number]] Future Scheduled 2021-12-[address] [facility] 00:00:00 [facility]procedure[facility] [code = [id number]] Future Scheduled 2021-12-[address] [facility] 00:00:00 [facility]procedure) [facility] [code = [id number]] Future Scheduled 2021-12-[address] [facility] 00:00:00 [facility]procedure[facility] [code = [id number]] Future Scheduled 2021-12-[address] [facility] 00:00:00 [facility]procedure[facility] [code = [id number]] Future Scheduled 2021-12-[address] [facility] 00:00:00 [facility]procedure[facility] [code = [id number]] Future Scheduled 2021-12-[address] [facility] 00:00:00 [facility]procedure) [facility] [code = [id number]] Future Scheduled 2021-12-[address] [facility] 00:00:00 [facility] (procedure) [facility] [code = [id number]] Future Scheduled 2021-12-[address] [facility] 00:00:00 [facility]procedure[facility] [code = [id number]] Future Scheduled 2021-12-[address] [facility] 00:00:00 [facility]procedure[facility] [code = [id number]] Future Scheduled 2021-12-[address] [facility] 00:00:00 [facility] (procedure[facility] [code = [id number]] Future Scheduled 2021-12-[address] [facility] 00:00:00 [facility]procedure[facility] [code = [id number]] Future Scheduled 2021-12-[address] [facility] 00:00:00 [facility]procedure) [facility] [code = [id number]] Future Scheduled 2021-12-[address] [facility] 00:00:00 [facility]procedure[facility] [code = [id number]] Future Scheduled 2021-12-[address] [facility] 00:00:00 [facility] (procedure) [facility] [code = [id number]] Future Scheduled 2021-12-[address] [facility] 00:00:00 [facility]procedure) [facility] [code = [id number]] Future Scheduled 2021-12-[address] [facility] 00:00:00 [facility] (procedure) [facility] [code = [id number]] Future Scheduled 2021-12-[address] [facility] 00:00:00 [facility]procedure) [facility] [code = [id number]] Future Scheduled 2021-12-[address] [facility] 00:00:00 [facility]procedure[facility] [code = [id number]] Future Scheduled 2021-12-[address] [facility] 00:00:00 [facility]procedure[facility] [code = [id number]] Future Scheduled 2021-12-[address] [facility] 00:00:00 [facility]procedure[facility] [code = [id number]] Future Scheduled 2021-12-[address] [facility] 00:00:00 [facility]procedure) [facility] [code = [id number]] Future Scheduled 2021-12-[address] [facility] 00:00:00 [facility]procedure) [facility] [code = [id number]] Future Scheduled 2021-12-[address] [facility] 00:00:00 [facility]procedure[facility] [code = [id number]] Future Scheduled 2021-12-[address] [facility] 00:00:00 [facility]procedure) [facility] [code = [id number]] Future Scheduled 2021-12-[address] [facility] 00:00:00 [facility]procedure) [facility] [code = [id number]] Future Scheduled 2021-12-[address] [facility] 00:00:00 [facility] (procedure) [facility] [code = [id number]] Future Scheduled 2021-12-[address] [facility] 00:00:00 [facility]procedure) [facility] [code = [id number]] Future Scheduled 2021-12-[address] [facility] 00:00:00 measurement (procedure) [facility] [code = [id number]] Future Scheduled 2021-06-[address] [facility] (12[facility] [code = [facility] DEPRESSION SCREENING (12+)] Future Scheduled 2021-06-[address] [facility] 00:00:00 (12+) [code = [facility] DEPRESSION SCREENING (12+)] Future Scheduled 2021-06-[address] [facility] 00:00:00 (12+) [code = [facility] DEPRESSION SCREENING (12+)] Future Scheduled 2021-06-[address] [facility] 00:00:00 (12+) [code = [facility] DEPRESSION SCREENING (12+)] Future Scheduled 2021-02-19 INFLUENZA VACCINE (#1) [facility]:00 [code = INFLUENZA Medical Ce [facility]ter VACCINE (#1)] Future Scheduled 2021-02-19 INFLUENZA VACCINE (#1) [facility] 00:00:00 [code = INFLUENZA Medical Ce nter VACCINE (#1)] Future Scheduled 2020-02-21 SHINGLES VACCINES ([address] [facility] 00:00:00 2) [code = SHINGLES [facility] VACCINES (1 of 2)] Future Scheduled 2020-02-21 SHINGLES VACCINES ([address] [facility] 00:00:00 2) [code = SHINGLES [facility] VACCINES (1 of 2)] Future Scheduled 2020-02-21 SHINGLES VACCINES ([address] [facility] 00:00:00 2) [code = SHINGLES [facility] VACCINES (1 of 2)] Future Scheduled 2020-02-21 SHINGLES VACCINES ([address] [facility] 00:00:00 2) [code = [facility] VACCINES (1 of 2)] Future Scheduled 2020-02-21 SHINGLES VACCINES ([address] [facility] 00:00:00 2) [code = [facility] VACCINES (1 of 2)] Future Scheduled 2020-02-21 SHINGLES VACCINES ([address] [facility] 00:00:00 2) [code = [facility] VACCINES (1 of 2)] Future Scheduled 2020-02-21 SHINGLES VACCINES ([address] [facility] 00:00:00 2) [code = [facility]LES [facility] VACCINES (1 of 2)] Future Scheduled 2020-02-21 SHINGLES VACCINES ([address] [facility] 00:00:00 2) [code = [facility]LES [facility] VACCINES (1 of 2)] Future Scheduled 2020-02-21 SHINGLES VACCINES ([address] [facility] 00:00:00 2) [code = [facility] VACCINES (1 of 2)] Future Scheduled 2020-02-21 SHINGLES VACCINES ([address] [facility] 00:00:00 2) [code = [facility] VACCINES (1 of 2)] Future Scheduled 2020-02-21 SHINGLES VACCINES ([address] [facility] 00:00:00 2) [code = [facility] VACCINES (1 of 2)] Future Scheduled 2020-02-21 SHINGLES VACCINES ([address] [facility] 00:00:00 2) [code = [facility]LES [facility] VACCINES (1 of 2)] Future Scheduled 2020-02-21 SHINGLES VACCINES ([address] [facility] 00:00:00 2) [code = [facility]LES [facility] VACCINES (1 of 2)] Future Scheduled 2020-02-21 SHINGLES VACCINES ([address] [facility] 00:00:00 2) [code = [facility]LES [facility] VACCINES (1 of 2)] Future Scheduled 2020-02-21 SHINGLES VACCINES ([address] [facility] 00:00:00 2) [code = [facility]LES [facility] VACCINES (1 of 2)] Future Scheduled 2020-02-21 SHINGLES VACCINES ([address] [facility] 00:00:00 2) [code = SH[facility]LES [facility] VACCINES (1 of 2)] Future Scheduled 2020-02-21 SHINGLES VACCINES ([address] [facility] 00:00:00 2) [code = SHINGLES [facility] VACCINES (1 of 2)] Future Scheduled 2020-02-21 SHINGLES VACCINES ([address] [facility] 00:00:00 2) [code = SHINGLES [facility] VACCINES (1 of 2)] Future Scheduled 2020-02-21 SHINGLES VACCINES ([address] [facility] 00:00:00 2) [code = SHINGLES [facility] VACCINES (1 of 2)] Future Scheduled 2020-02-21 SHINGLES VACCINES ([address] [facility] 00:00:00 2) [code = [facility]LES [facility] VACCINES (1 of 2)] Future Scheduled 2020-02-21 SHINGLES VACCINES ([address] [facility] 00:00:00 2) [code = SHINGLES [facility] VACCINES (1 of 2)] Future Scheduled 2020-02-21 SHINGLES VACCINES ([address] [facility] 00:00:00 2) [code = SHINGLES [facility] VACCINES (1 of 2)] Future Scheduled 2020-02-21 SHINGLES VACCINES ([address] [facility] 00:00:00 2) [code = SHINGLES [facility] VACCINES (1 of 2)] Future Scheduled 2020-02-21 SHINGLES VACCINES ([address] [facility] 00:00:00 2) [code = SHINGLES [facility] VACCINES (1 of 2)] Future Scheduled 2020-02-21 SHINGLES VACCINES ([address] [facility] 00:00:00 2) [code = SHINGLES [facility] VACCINES (1 of 2)] Future Scheduled 2020-02-21 SHINGLES VACCINES ([address] [facility] 00:00:00 2) [code = SHINGLES [facility] VACCINES (1 of 2)] Future Scheduled 2020-02-21 SHINGLES VACCINES ([address] [facility] 00:00:00 2) [code = SHINGLES [facility] VACCINES (1 of 2)] Future Scheduled 2020-02-21 SHINGLES VACCINES ([address] [facility] 00:00:00 2) [code = SHINGLES [facility] VACCINES (1 of 2)] Future Scheduled 2020-02-21 SHINGLES VACCINES ([address] [facility] 00:00:00 2) [code = SHINGLES [facility] VACCINES (1 of 2)] Future Scheduled 2020-02-21 SHINGLES VACCINES ([address] [facility] 00:00:00 2) [code = SHINGLES [facility] VACCINES (1 of 2)] Future Scheduled 2020-02-21 SHINGLES VACCINES ([address] [facility] 00:00:00 2) [code = SHINGLES [facility] VACCINES (1 of 2)] Future Scheduled 2020-02-21 SHINGLES VACCINES ([address] [facility] 00:00:00 2) [code = SHINGLES [facility] VACCINES (1 of 2)] Future Scheduled 2020-02-21 SHINGLES VACCINES ([address] [facility] 00:00:00 2) [code = SHINGLES [facility] VACCINES (1 of 2)] Future Scheduled 2020-02-21 SHINGLES VACCINES ([address] [facility] 00:00:00 2) [code = SHINGLES [facility] VACCINES (1 of 2)] Future Scheduled 2020-02-21 SHINGLES VACCINES ([address] [facility] 00:00:00 2) [code = SHINGLES [facility] VACCINES (1 of 2)] Future Scheduled 2020-02-21 SHINGLES VACCINES ([address] [facility] 00:00:00 2) [code = SHINGLES [facility] VACCINES (1 of 2)] Future Scheduled 2020-02-21 SHINGLES VACCINES ([address] [facility] 00:00:00 2) [code = SHINGLES [facility] VACCINES (1 of 2)] Future Scheduled 2020-02-21 SHINGLES VACCINES ([address] [facility] 00:00:00 2) [code = SHINGLES [facility] VACCINES (1 of 2)] Future Scheduled 2020-02-21 SHINGLES VACCINES ([address] [facility] 00:00:00 2) [code = SHINGLES [facility] VACCINES (1 of 2)] Future Scheduled 2020-02-21 SHINGLES VACCINES ([address] [facility] 00:00:00 2) [code = SHINGLES [facility] VACCINES (1 of 2)] Future Scheduled 1991 Screening for malignant [facility] 00:00:00 neoplasm of cervix Medical C enter (procedure) [code = [id number]] Future Scheduled 1991 Screening for malignant [facility] 00:00:00 neoplasm of cervix Medical C enter (procedure) [code = [id number]] Future Scheduled 1991 Screening for malignant [facility] 00:00:00 neoplasm of cervix Medical C enter (procedure) [code = 826010445] Future Scheduled 1991 Screening for malignant [facility] 00:00:00 neoplasm of cervix Medical C enter (procedure) [code = 595515121] Future Scheduled 1991 Screening for malignant [facility] 00:00:00 neoplasm of cervix Medical C enter (procedure) [code = 293062277] Future Scheduled 1991 Screening for malignant [facility] 00:00:00 neoplasm of cervix Medical C enter (procedure) [code = 716841471] Future Scheduled 1991 Screening for malignant [facility] 00:00:00 neoplasm of cervix Medical C enter (procedure) [code = 822675169] Future Scheduled 1991 Screening for malignant [facility] 00:00:00 neoplasm of cervix Medical C enter (procedure) [code = 206872778] Future Scheduled 1991 Screening for malignant [facility] 00:00:00 neoplasm of cervix Medical C enter (procedure) [code = 501441720] Future Scheduled 1991 Screening for malignant [facility] 00:00:00 neoplasm of cervix Medical C enter (procedure) [code = 680162064] Future Scheduled 1991 Screening for malignant [facility] 00:00:00 neoplasm of cervix Medical C enter (procedure) [code = 811117531] Future Scheduled 1991 Screening for malignant [facility] 00:00:00 neoplasm of cervix Medical C enter (procedure) [code = [id number]] Future Scheduled [address] Screening for malignant [facility] 00:00:00 neoplasm of cervix Medical C enter (procedure) [code = 837350887] Future Scheduled [address] Screening for malignant [facility] 00:00:00 neoplasm of cervix Medical C enter (procedure) [code = 576694611] Future Scheduled [address] Screening for malignant [facility] 00:00:00 neoplasm of cervix Medical C enter (procedure) [code = 621263416] Future Scheduled [address] Screening for malignant [facility] 00:00:00 neoplasm of cervix Medical C enter (procedure) [code = 445177510] Future Scheduled [address] Screening for malignant [facility] 00:00:00 neoplasm of cervix Medical C enter (procedure) [code = 441907402] Future Scheduled [address] Screening for malignant [facility] 00:00:00 neoplasm of cervix Medical C enter (procedure) [code = 316762288] Future Scheduled [address] Screening for malignant [facility] 00:00:00 neoplasm of cervix Medical C enter (procedure) [code = 537402503] Future Scheduled [address] Screening for malignant [facility] 00:00:00 neoplasm of cervix Medical C enter (procedure) [code = 726706602] Future Scheduled [address] Screening for malignant [facility] 00:00:00 neoplasm of cervix Medical C enter (procedure) [code = 692346232] Future Scheduled 1991 Screening for malignant [facility] 00:00:00 neoplasm of cervix Medical C enter (procedure) [code = 859417356] Future Scheduled [address] Screening for malignant [facility] 00:00:00 neoplasm of cervix Medical C enter (procedure) [code = 808975120] Future Scheduled [address] Screening for malignant [facility] 00:00:00 neoplasm of cervix Medical C enter (procedure) [code = 534787435] Future Scheduled [address] Screening for malignant [facility] 00:00:00 neoplasm of cervix Medical C enter (procedure) [code = 069328979] Future Scheduled [address] Screening for malignant [facility] 00:00:00 neoplasm of cervix Medical C enter (procedure) [code = 550557621] Future Scheduled [address] Screening for malignant [facility] 00:00:00 neoplasm of cervix Medical C enter (procedure) [code = 343772693] Future Scheduled [address] Screening for malignant [facility] 00:00:00 neoplasm of cervix Medical C enter (procedure) [code = 091920174] Future Scheduled [address] Screening for malignant [facility] 00:00:00 neoplasm of cervix Medical C enter (procedure) [code = 898477061] Future Scheduled [address] Screening for malignant [facility] 00:00:00 neoplasm of cervix Medical C enter (procedure) [code = 718994789] Future Scheduled [address] Screening for malignant [facility] 00:00:00 neoplasm of cervix Medical C enter (procedure) [code = 932839753] Future Scheduled [address] Screening for malignant [facility] 00:00:00 neoplasm of cervix Medical C enter (procedure) [code = 047529825] Future Scheduled [address] Screening for malignant [facility] 00:00:00 neoplasm of cervix Medical C enter (procedure) [code = 664711426] Future Scheduled [address] Screening for malignant [facility] 00:00:00 neoplasm of cervix Medical C enter (procedure) [code = 064376368] Future Scheduled [address] Screening for malignant [facility] 00:00:00 neoplasm of cervix Medical C enter (procedure) [code = 365794835] Future Scheduled 1991 Screening for malignant [facility] 00:00:00 neoplasm of cervix Medical C enter (procedure) [code = 759912418] Future Scheduled [address] Screening for malignant [facility] 00:00:00 neoplasm of cervix Medical C enter (procedure) [code = 537629156] Future Scheduled [address] Screening for malignant [facility] 00:00:00 neoplasm of cervix Medical C enter (procedure) [code = 356855653] Future Scheduled 1991 Screening for malignant [facility] 00:00:00 neoplasm of cervix Medical C enter (procedure) [code = 009068232] Future Scheduled 1991 Screening for malignant [facility] 00:00:00 neoplasm of cervix Medical C enter (procedure) [code = 741881174] Future Scheduled 1989 DTAP/TDAP/TD [facility]INES [facility]:00 (1 - Tdap) [code = Medical C enter DTAP/TDAP/TD VACCINES (1 - Tdap)] Future Scheduled 1989 DTAP/TDAP/TD [facility]INES [facility] 00:00:00 (1 - Tdap) [code = Medical C enter DTAP/TDAP/TD VACCINES (1 - Tdap)] Future Scheduled 1989 DTAP/TDAP/TD [facility]INES [facility] 00:00:00 (1 - Tdap) [code = Medical C enter DTAP/TDAP/TD VACCINES (1 - Tdap)] Future Scheduled 1989 DTAP/TDAP/TD [facility]INES [facility] 00:00:00 (1 - Tdap) [code = Medical C enter DTAP/TDAP/TD VACCINES (1 - Tdap)] Future Scheduled 1989 DTAP/TDAP/TD [facility]INES [facility] 00:00:00 (1 - Tdap) [code = Medical C enter DTAP/TDAP/TD VACCINES (1 - Tdap)] Future Scheduled 1989 DTAP/TDAP/TD [facility]INES [facility] 00:00:00 (1 - Tdap) [code = Medical C enter DTAP/TDAP/TD VACCINES (1 - Tdap)] Future Scheduled 1989 DTAP/TDAP/TD [facility]INES [facility] 00:00:00 (1 - Tdap) [code = Medical C enter DTAP/TDAP/TD VACCINES (1 - Tdap)] Future Scheduled 1989 DTAP/TDAP/TD [facility]INES [facility] 00:00:00 (1 - Tdap) [code = Medical C enter DTAP/TDAP/TD VACCINES (1 - Tdap)] Future Scheduled 1989 DTAP/TDAP/TD [facility]INES [facility] 00:00:00 (1 - Tdap) [code = Medical C enter DTAP/TDAP/TD VACCINES (1 - Tdap)] Future Scheduled 1989 DTAP/TDAP/TD [facility]INES [facility] 00:00:00 (1 - Tdap) [code = Medical C enter DTAP/TDAP/TD VACCINES (1 - Tdap)] Future Scheduled 1989 DTAP/TDAP/TD [facility]INES [facility] 00:00:00 (1 - Tdap) [code = Medical C enter DTAP/TDAP/TD VACCINES (1 - Tdap)] Future Scheduled 1989 DTAP/TDAP/TD [facility]INES [facility] 00:00:00 (1 - Tdap) [code = Medical C enter DTAP/TDAP/TD VACCINES (1 - Tdap)] Future Scheduled 1989 DTAP/TDAP/TD [facility]INES [facility] 00:00:00 (1 - Tdap) [code = Medical C enter DTAP/TDAP/TD VACCINES (1 - Tdap)] Future Scheduled 1989 DTAP/TDAP/TD [facility]INES [facility] 00:00:00 (1 - Tdap) [code = Medical C enter DTAP/TDAP/TD VACCINES (1 - Tdap)] Future Scheduled 1989 DTAP/TDAP/TD [facility]INES [facility] 00:00:00 (1 - Tdap) [code = Medical C enter DTAP/TDAP/TD VACCINES (1 - Tdap)] Future Scheduled 1989 DTAP/TDAP/TD [facility]INES [facility] 00:00:00 (1 - Tdap) [code = Medical C enter DTAP/TDAP/TD VACCINES (1 - Tdap)] Future Scheduled 1989 DTAP/TDAP/TD [facility]INES [facility] 00:00:00 (1 - Tdap) [code = Medical C enter DTAP/TDAP/TD VACCINES (1 - Tdap)] Future Scheduled 1989 DTAP/TDAP/TD [facility]INES [facility] 00:00:00 (1 - Tdap) [code = Medical C enter DTAP/TDAP/TD VACCINES (1 - Tdap)] Future Scheduled 1989 DTAP/TDAP/TD [facility]INES [facility] 00:00:00 (1 - Tdap) [code = Medical C enter DTAP/TDAP/TD VACCINES (1 - Tdap)] Future Scheduled 1989 DTAP/TDAP/TD [facility]INES [facility] 00:00:00 (1 - Tdap) [code = Medical C enter DTAP/TDAP/TD VACCINES (1 - Tdap)] Future Scheduled 1989 DTAP/TDAP/TD [facility]INES [facility] 00:00:00 (1 - Tdap) [code = Medical C enter DTAP/TDAP/TD VACCINES (1 - Tdap)] Future Scheduled 1989 DTAP/TDAP/TD [facility]ES [facility] 00:00:00 (1 - Tdap) [code = Medical C enter DTAP/TDAP/TD VACCINES (1 - Tdap)] Future Scheduled 1989 DTAP/TDAP/TD [facility]ES [facility] 00:00:00 (1 - Tdap) [code = Medical C enter DTAP/TDAP/TD VACCINES (1 - Tdap)] Future Scheduled 1989 DTAP/TDAP/TD [facility]ES [facility] 00:00:00 (1 - Tdap) [code = Medical C enter DTAP/TDAP/TD VACCINES (1 - Tdap)] Future Scheduled 1989 DTAP/TDAP/TD [facility]ES [facility] 00:00:00 (1 - Tdap) [code = Medical C enter DTAP/TDAP/TD VACCINES (1 - Tdap)] Future Scheduled 1989 [facility]AP[facility]TDAP/TD [facility]ES [facility]:00 (1 - Tdap) [code = Medical C enter DTAP/TDAP/TD VACCINES (1 - Tdap)] Future Scheduled 1989 DTAP/TDAP/TD VACCINES [facility] 00:00:00 (1 - Tdap) [code = Medical C enter DTAP/TDAP/TD VACCINES (1 - Tdap)] Future Scheduled 1989 DTAP/TDAP/TD VACCINES [facility] 00:00:00 (1 - Tdap) [code = Medical C enter DTAP/TDAP/TD VACCINES (1 - Tdap)] Future Scheduled 1989 DTAP/TDAP/TD VACCINES [facility] 00:00:00 (1 - Tdap) [code = Medical C enter DTAP/TDAP/TD VACCINES (1 - Tdap)] Future Scheduled 1989 DTAP/TDAP/TD VACCINES [facility] 00:00:00 (1 - Tdap) [code = Medical C enter DTAP/TDAP/TD VACCINES (1 - Tdap)] Future Scheduled 1989 DTAP/TDAP/TD VACCINES [facility] 00:00:00 (1 - Tdap) [code = Medical C enter DTAP/TDAP/TD VACCINES (1 - Tdap)] Future Scheduled 1989 DTAP/TDAP/TD VACCINES [facility] 00:00:00 (1 - Tdap) [code = Medical C enter DTAP/TDAP/TD VACCINES (1 - Tdap)] Future Scheduled 1989 DTAP/TDAP/TD VACCINES [facility] 00:00:00 (1 - Tdap) [code = Medical C enter DTAP/TDAP/TD VACCINES (1 - Tdap)] Future Scheduled 1989 DTAP/TDAP/TD VACCINES [facility] 00:00:00 (1 - Tdap) [code = Medical C enter DTAP/TDAP/TD VACCINES (1 - Tdap)] Future Scheduled 1989 DTAP/TDAP/TD VACCINES [facility] 00:00:00 (1 - Tdap) [code = Medical C enter DTAP/TDAP/TD VACCINES (1 - Tdap)] Future Scheduled 1989 DTAP/TDAP/TD VACCINES [facility] 00:00:00 (1 - Tdap) [code = Medical C enter DTAP/TDAP/TD VACCINES (1 - Tdap)] Future Scheduled 1989 DTAP/TDAP/TD VACCINES [facility] 00:00:00 (1 - Tdap) [code = Medical C enter DTAP/TDAP/TD VACCINES (1 - Tdap)] Future Scheduled 1989 DTAP/TDAP/TD VACCINES [facility] 00:00:00 (1 - Tdap) [code = Medical C enter DTAP/TDAP/TD VACCINES (1 - Tdap)] Future Scheduled 1989 DTAP/TDAP/TD VACCINES [facility] 00:00:00 (1 - Tdap) [code = Medical C enter DTAP/TDAP/TD VACCINES (1 - Tdap)] Future Scheduled 1989 DTAP/TDAP/TD VACCINES [facility] 00:00:00 (1 - Tdap) [code = Medical C enter DTAP/TDAP/TD VACCINES (1 - Tdap)] Future Scheduled 1982 COVID-19 VACCINE (1) [facility] 00:00:00 [code = COVID-[address] VACCINE (1)] Future Scheduled 1982 COVID-19 VACCINE (1) [facility] 00:00:00 [code = COVID-[address] VACCINE (1)] Future Scheduled 1980-02-21 DIABETIC EYE EXAM [code [facility] 00:00:00 = DIABETIC EYE EXAM] [facility] Future Scheduled 1980-02-[address] [facility] examination [facility] Center (regime/therapy) [code = [id number]] Future Scheduled 1980-02-21 Urine screening for [facility] 00:00:00 protein (procedure) [facility] Center [code = [id number]] Future Scheduled 1980-02-21 DIABETIC EYE EXAM [code [facility] 00:00:00 = DIABETIC EYE EXAM] [facility] Future Scheduled 1980-02-[address] [facility] examination [facility] Center (regime/therapy) [code = [id number]] Future Scheduled 1980-02-21 Urine screening for [facility] 00:00:00 protein (procedure) [facility] Center [code = [id number]] Future Scheduled 1980-02-21 DIABETIC EYE EXAM [code [facility] 00:00:00 = DIABETIC EYE EXAM] [facility] Future Scheduled 1980-02-[address] [facility]00 examination [facility] Center (regime/therapy) [code = [id number]] Future Scheduled 1980-02-21 Urine screening for [facility] 00:00:00 protein (procedure) [facility] Center [code = 161358891] Future Scheduled 1980-02-21 DIABETIC EYE EXAM [code [facility] 00:00:00 = DIABETIC EYE EXAM] [facility] Future Scheduled 1980-02-[address] [facility]00 examination [facility] Center (regime/therapy) [code = [id number]] Future Scheduled 1980-02-21 Urine screening for [facility] 00:00:00 protein (procedure) [facility] Center [code = 347475097] Future Scheduled 1980-02-21 DIABETIC EYE EXAM [code [facility] 00:00:00 = DIABETIC EYE EXAM] [facility] Future Scheduled 1980-02-21 Urine screening for [facility] 00:00:00 protein (procedure) [facility] [code = 924353261] Future Scheduled 1980-02-21 DIABETIC EYE EXAM [code [facility] 00:00:00 = DIABETIC EYE EXAM] [facility] Future Scheduled 1980-02-21 Urine screening for [facility] 00:00:00 protein (procedure) [facility] [code = 388648403] Future Scheduled 1980-02-21 DIABETIC EYE EXAM [code [facility] 00:00:00 = DIABETIC EYE EXAM] [facility] Future Scheduled 1980-02-21 Urine screening for [facility] 00:00:00 protein (procedure) [facility] Center [code = 726437309] Future Scheduled 1980-02-21 DIABETIC EYE EXAM [code [facility] 00:00:00 = DIABETIC EYE EXAM] [facility] Future Scheduled 1980-02-21 Urine screening for [facility] 00:00:00 protein (procedure) [facility] [code = 105466018] Future Scheduled 1980-02-21 DIABETIC EYE EXAM [code [facility] 00:00:00 = DIABETIC EYE EXAM] [facility] Future Scheduled 1980-02-21 Urine screening for [facility] 00:00:00 protein (procedure) [facility] Center [code = 779883240] Future Scheduled 1980-02-21 DIABETIC EYE EXAM [code [facility] 00:00:00 = DIABETIC EYE EXAM] [facility] Future Scheduled 1980-02-21 Urine screening for [facility] 00:00:00 protein (procedure) [facility] Center [code = [id number]] Future Scheduled 1980-02-21 DIABETIC EYE EXAM [code [facility] 00:00:00 = DIABETIC EYE EXAM] [facility] Future Scheduled 1980-02-21 Urine screening for [facility] 00:00:00 protein (procedure) [facility] Center [code = 436640390] Future Scheduled 1980-02-21 DIABETIC EYE EXAM [code [facility] 00:00:00 = DIABETIC EYE EXAM] [facility] Future Scheduled 1980-02-21 Urine screening for [facility] 00:00:00 protein (procedure) [facility] Center [code = 337092117] Future Scheduled 1980-02-21 DIABETIC EYE EXAM [code [facility] 00:00:00 = DIABETIC EYE EXAM] [facility] Future Scheduled 1980-02-21 Urine screening for [facility] 00:00:00 protein (procedure) [facility] [code = 554148708] Future Scheduled 1980-02-21 DIABETIC EYE EXAM [code [facility] 00:00:00 = DIABETIC EYE EXAM] [facility] Future Scheduled 1980-02-21 Urine screening for [facility] 00:00:00 protein (procedure) [facility] [code = 507881983] Future Scheduled 1980-02-21 DIABETIC EYE EXAM [code [facility] 00:00:00 = DIABETIC EYE EXAM] [facility] Future Scheduled 1980-02-21 Urine screening for [facility] 00:00:00 protein (procedure) [facility] Center [code = 532016568] Future Scheduled 1980-02-21 DIABETIC EYE EXAM [code [facility] 00:00:00 = DIABETIC EYE EXAM] [facility] Future Scheduled 1980-02-21 Urine screening for [facility] 00:00:00 protein (procedure) [facility] Center [code = 828294824] Future Scheduled 1980-02-21 DIABETIC EYE EXAM [code [facility] 00:00:00 = DIABETIC EYE EXAM] [facility] Future Scheduled 1980-02-21 Urine screening for [facility] 00:00:00 protein (procedure) [facility] Center [code = 187066053] Future Scheduled 1980-02-21 DIABETIC EYE EXAM [code [facility] 00:00:00 = DIABETIC EYE EXAM] [facility] Future Scheduled 1980-02-21 Urine screening for [facility] 00:00:00 protein (procedure) [facility] Center [code = 722349942] Future Scheduled 1980-02-21 DIABETIC EYE EXAM [code [facility] 00:00:00 = DIABETIC EYE EXAM] [facility] Future Scheduled 1980-02-21 Urine screening for [facility] 00:00:00 protein (procedure) [facility] Center [code = 234378568] Future Scheduled 1980-02-21 DIABETIC EYE EXAM [code [facility] 00:00:00 = DIABETIC EYE EXAM] [facility] Future Scheduled 1980-02-21 Urine screening for [facility] 00:00:00 protein (procedure) [facility] Center [code = 499645929] Future Scheduled 1980-02-21 DIABETIC EYE EXAM [code [facility] 00:00:00 = DIABETIC EYE EXAM] [facility] Future Scheduled 1980-02-21 Urine screening for [facility] 00:00:00 protein (procedure) [facility] Center [code = 953874946] Future Scheduled 1980-02-21 DIABETIC EYE EXAM [code [facility] 00:00:00 = DIABETIC EYE EXAM] [facility] Future Scheduled 1980-02-21 Urine screening for [facility] 00:00:00 protein (procedure) [facility] [code = 402615271] Future Scheduled 1980-02-21 DIABETIC EYE EXAM [code [facility] 00:00:00 = DIABETIC EYE EXAM] [facility] Future Scheduled 1980-02-21 Urine screening for [facility] 00:00:00 protein (procedure) [facility] Center [code = 627412003] Future Scheduled 1980-02-21 DIABETIC EYE EXAM [code [facility] 00:00:00 = DIABETIC EYE EXAM] [facility] Future Scheduled 1980-02-21 Urine screening for [facility] 00:00:00 protein (procedure) [facility] Center [code = 055498801] Future Scheduled 1980-02-21 DIABETIC EYE EXAM [code [facility] 00:00:00 = DIABETIC EYE EXAM] [facility] Future Scheduled 1980-02-21 Urine screening for [facility] 00:00:00 protein (procedure) [facility] [code = 865241210] Future Scheduled 1980-02-21 DIABETIC EYE EXAM [code [facility] 00:00:00 = DIABETIC EYE EXAM] [facility] Future Scheduled 1980-02-21 Urine screening for [facility] 00:00:00 protein (procedure) [facility] [code = 390829712] Future Scheduled 1980-02-21 DIABETIC EYE EXAM [code [facility] 00:00:00 = DIABETIC EYE EXAM] [facility] Future Scheduled 1980-02-21 Urine screening for [facility] 00:00:00 protein (procedure) [facility] [code = 618187570] Future Scheduled 1980-02-21 DIABETIC EYE EXAM [code [facility] 00:00:00 = DIABETIC EYE EXAM] [facility] Future Scheduled 1980-02-21 Urine screening for [facility] 00:00:00 protein (procedure) [facility] [code = 230922855] Future Scheduled 1980-02-21 DIABETIC EYE EXAM [code [facility] 00:00:00 = DIABETIC EYE EXAM] [facility] Future Scheduled 1980-02-21 Urine screening for [facility] 00:00:00 protein (procedure) [facility] [code = 015629736] Future Scheduled 1980-02-21 DIABETIC EYE EXAM [code [facility] 00:00:00 = DIABETIC EYE EXAM] [facility] Future Scheduled 1980-02-21 Urine screening for [facility] 00:00:00 protein (procedure) [facility] [code = 390912519] Future Scheduled 1980-02-21 DIABETIC EYE EXAM [code [facility] 00:00:00 = DIABETIC EYE EXAM] [facility] Future Scheduled 1980-02-21 Urine screening for [facility] 00:00:00 protein (procedure) [facility] [code = 469613812] Future Scheduled 1980-02-21 DIABETIC EYE EXAM [code [facility] 00:00:00 = DIABETIC EYE EXAM] [facility] Future Scheduled 1980-02-21 Urine screening for [facility] 00:00:00 protein (procedure) [facility] Center [code = 279238651] Future Scheduled 1980-02-21 DIABETIC EYE EXAM [code [facility] 00:00:00 = DIABETIC EYE EXAM] [facility] Future Scheduled 1980-02-21 Urine screening for [facility] 00:00:00 protein (procedure) [facility] Center [code = 995166696] Future Scheduled 1980-02-21 DIABETIC EYE EXAM [code [facility] 00:00:00 = DIABETIC EYE EXAM] [facility] Future Scheduled 1980-02-21 Urine screening for [facility] 00:00:00 protein (procedure) [facility] [code = 720545444] Future Scheduled 1980-02-21 DIABETIC EYE EXAM [code [facility] 00:00:00 = DIABETIC EYE EXAM] [facility] Future Scheduled 1980-02-21 Urine screening for [facility] 00:00:00 protein (procedure) [facility] [code = 194816996] Future Scheduled 1980-02-21 DIABETIC EYE EXAM [code [facility] 00:00:00 = DIABETIC EYE EXAM] [facility] Future Scheduled 1980-02-21 Urine screening for [facility] 00:00:00 protein (procedure) [facility] [code = 603670035] Future Scheduled 1980-02-21 DIABETIC EYE EXAM [code [facility] 00:00:00 = DIABETIC EYE EXAM] [facility] Future Scheduled 1980-02-21 Urine screening for [facility] 00:00:00 protein (procedure) [facility] Center [code = 914666225] Future Scheduled 1980-02-21 DIABETIC EYE EXAM [code [facility] 00:00:00 = DIABETIC EYE EXAM] [facility] Future Scheduled 1980-02-[address] [facility] 00:[facility]:00 examination Medical Center (regime/therapy) [code = 898941354] Future Scheduled 1980-02-21 Urine screening for [facility] 00:00:00 protein (procedure) [facility] Center [code = 723567480] Future Scheduled 1980-02-21 DIABETIC EYE EXAM [code [facility] 00:00:00 = DIABETIC EYE EXAM] [facility] Future Scheduled 1980-02-[address] [facility] 00:[facility]:00 examination [facility] Center (regime/therapy) [code = [id number]] Future Scheduled 1980-02-21 Urine screening for [facility] 00:00:00 protein (procedure) [facility] Center [code = 620793134] Future Scheduled 1980-02-21 DIABETIC EYE EXAM [code [facility] 00:00:00 = DIABETIC EYE EXAM] [facility] Future Scheduled 1980-02-[address] [facility] 00:[facility]:00 examination [facility] Center (regime/therapy) [code = 505909812] Future Scheduled 1980-02-21 Urine screening for [facility] 00:00:00 protein (procedure) [facility] Center [code = 032320885] Future Scheduled 1976-02-[address] [facility] [...] - PCV)] Future Scheduled 1970 COVID-19 VACCINE (#1) [facility]:00 [code = COVID-[address] VACCINE (#1)] Future Scheduled 1970 COVID-19 VACCINE (#1) [facility]:00:00 [code = COVID-[address] VACCINE (#1)] Future Scheduled 1970 COVID-19 VACCINE (#1) [facility]:00:00 [code = COVID-[address] VACCINE (#1)] Future Scheduled 1970 COVID-19 VACCINE (#1) [facility] 00:00:00 [code = COVID-[address] VACCINE (#1)] Future Scheduled 1970 COVID-19 VACCINE (#1) [facility]:00:00 [code = COVID-[address] VACCINE (#1)] Future Scheduled 1970 COVID-19 VACCINE (#1) [facility] 00:00:00 [code = COVID-[address] VACCINE (#1)] Future Scheduled 1970 COVID-19 VACCINE (#1) [facility] 00:00:00 [code = COVID-[address] VACCINE (#1)] Future Scheduled 1970 COVID-19 VACCINE (#1) [facility] 00:00:00 [code = COVID-[address] VACCINE (#1)] Future Scheduled 1970 COVID-19 VACCINE (#1) [facility] 00:00:00 [code = COVID-[address] VACCINE (#1)] Future Scheduled 1970 COVID-19 VACCINE (#1) [facility] 00:00:00 [code = COVID-[address] VACCINE (#1)] Future Scheduled 1970 COVID-19 VACCINE (#1) [facility] 00:00:00 [code = COVID-[address] VACCINE (#1)] Future Scheduled 1970 COVID-19 VACCINE (#1) [facility] 00:00:00 [code = COVID-[address] VACCINE (#1)] Future Scheduled 1970 COVID-19 VACCINE (#1) [facility] 00:00:00 [code = COVID-[address] VACCINE (#1)] Future Scheduled 1970 COVID-19 VACCINE (#1) [facility] 00:00:00 [code = COVID-[address] VACCINE (#1)] Future Scheduled 1970 COVID-19 VACCINE (#1) [facility] 00:00:00 [code = COVID-[address] VACCINE (#1)] Future Scheduled 1970 COVID-19 VACCINE (#1) [facility] 00:00:00 [code = COVID-[address] VACCINE (#1)] Future Scheduled 1970 COVID-19 VACCINE (#1) [facility] 00:00:00 [code = COVID-[address] VACCINE (#1)] Future Scheduled 1970 COVID-19 VACCINE (#1) [facility] 00:00:00 [code = COVID-[address] VACCINE (#1)] Future Scheduled 1970 COVID-19 VACCINE (#1) [facility] 00:00:00 [code = COVID-[address] VACCINE (#1)] Future Scheduled 1970 COVID-19 VACCINE (#1) [facility] 00:00:00 [code = COVID-[address] VACCINE (#1)] Future Scheduled 1970 COVID-19 VACCINE (#1) [facility] 00:00:00 [code = COVID-[address] VACCINE (#1)] Future Scheduled 1970 COVID-19 VACCINE (#1) [facility] 00:00:00 [code = COVID-[address] VACCINE (#1)] Future Scheduled 1970 COVID-19 VACCINE (#1) [facility] 00:00:00 [code = COVID-[address] VACCINE (#1)] Future Scheduled 1970 COVID-19 VACCINE (#1) [facility] 00:00:00 [code = COVID-[address] VACCINE (#1)] Future Scheduled 1970 COVID-19 VACCINE (#1) [facility] 00:00:00 [code = COVID-[address] VACCINE (#1)] Future Scheduled 1970 COVID-19 VACCINE (#1) [facility] 00:00:00 [code = COVID-[address] VACCINE (#1)] Future Scheduled 1970 COVID-19 VACCINE (#1) [facility] 00:00:00 [code = COVID-[address] VACCINE (#1)] Future Scheduled 1970 COVID-19 VACCINE (#1) [facility] 00:00:00 [code = COVID-[address] VACCINE (#1)] Future Scheduled 1970 COVID-19 VACCINE (#1) [facility] 00:00:00 [code = COVID-[address] VACCINE (#1)] Future Scheduled 1970 COVID-19 VACCINE (#1) [facility] 00:00:00 [code = COVID-[address] VACCINE (#1)] Future Scheduled 1970 COVID-19 VACCINE (#1) [facility] 00:00:00 [code = COVID-[address] VACCINE (#1)] Future Scheduled 1970 COVID-19 VACCINE (#1) [facility] 00:00:00 [code = COVID-[address] VACCINE (#1)] Future Scheduled 1970 COVID-19 VACCINE (#1) [facility] 00:00:00 [code = COVID-[address] VACCINE (#1)] Future Scheduled 1970 COVID-19 VACCINE (#1) [facility] 00:00:00 [code = COVID-[address] VACCINE (#1)] Future Scheduled 1970 COVID-19 VACCINE (#1) [facility] 00:00:00 [code = COVID-[address] VACCINE (#1)] Future Scheduled 1970 COVID-19 VACCINE (#1) [facility] 00:00:00 [code = COVID-[address] VACCINE (#1)] Future Scheduled 1970 COVID-19 VACCINE (#1) [facility] 00:00:00 [code = COVID-[address] VACCINE (#1)] Future Scheduled 1970 COVID-19 VACCINE (#1) [facility] 00:00:00 [code = COVID-[address] VACCINE (#1)] Future Scheduled 1970 Screening for malignant [facility] 00:00:00 neoplasm of breast Medical C enter (procedure) [code = 332721158] Future Scheduled 1970 CT Colonography (combo) [facility] 00:00:00 [code = CT Colonography [facility] (combo)] Future Scheduled 1970 Screening for malignant [facility] 00:00:00 neoplasm of colon Medical Ce nter (procedure) [code = 641283290] Future Scheduled 1970 Screening for malignant [facility] 00:00:00 neoplasm of colon Medical Ce [facility]ter (procedure) [code = 514208248] Future Scheduled 1970 Screening for malignant [facility] 00:00:00 neoplasm of colon Medical Ce nter (procedure) [code = 924661257] Future Scheduled 1970 Screening for malignant [facility] 00:00:00 neoplasm of colon Medical Ce nter (procedure) [code = 655883649] Future Scheduled 1970 Sigmoidoscopy [code = [facility] S[facility]oscopy] [facility] Cent[facility] Future Scheduled 1970 Screening for malignant [facility] 00:00:00 neoplasm of breast Medical C enter (procedure) [code = 863963439] Future Scheduled 1970 CT Colonography (combo) [facility] 00:00:00 [code = CT Colonography [facility] (combo)] Future Scheduled 1970 Screening for malignant [facility] 00:00:00 neoplasm of colon Medical Ce [facility]ter (procedure) [code = 275184536] Future Scheduled 1970 Screening for malignant [facility] 00:00:00 neoplasm of colon Medical Ce [facility]ter (procedure) [code = 286499876] Future Scheduled 1970 Screening for malignant [facility] 00:00:00 neoplasm of colon Medical Ce [facility]ter (procedure) [code = 145482888] Future Scheduled 1970 Screening for malignant [facility] 00:00:00 neoplasm of colon Medical Ce [facility]ter (procedure) [code = 758860899] Future Scheduled 1970 Sigmoidoscopy [code = [facility] S[facility]oidoscopy] [facility] Cent[facility] Future Scheduled 1970 Screening for malignant [facility] 00:00:00 neoplasm of breast Medical C enter (procedure) [code = 886352007] Future Scheduled 1970 CT Colonography (combo) [facility] 00:00:00 [code = [facility] ([facility])] Future Scheduled 1970 Screening for malignant [facility] 00:00:00 neoplasm of colon Medical Ce [facility]ter (procedure) [code = 324412119] Future Scheduled 1970 Screening for malignant [facility] 00:00:00 neoplasm of colon Medical Ce [facility]ter (procedure) [code = 761990707] Future Scheduled 1970 Screening for malignant [facility] 00:00:00 neoplasm of colon Medical Ce [facility]ter (procedure) [code = 739268542] Future Scheduled 1970 Screening for malignant [facility] 00:00:00 neoplasm of colon Medical Ce [facility]ter (procedure) [code = 685269534] Future Scheduled 1970 Sigmoidoscopy [code = [facility] S[facility]oscopy] [facility] Cent[facility] Future Scheduled 1970 Screening for malignant [facility] 00:00:00 neoplasm of breast Medical C enter (procedure) [code = 596245295] Future Scheduled 1970 CT Colonography (combo) [facility] 00:00:00 [code = CT Colonography [facility] (combo)] Future Scheduled 1970 Screening for malignant [facility] 00:00:00 neoplasm of colon Medical Ce nter (procedure) [code = 598263240] Future Scheduled 1970 Screening for malignant [facility] 00:00:00 neoplasm of colon Medical Ce [facility]ter (procedure) [code = 406603807] Future Scheduled 1970 Screening for malignant [facility] 00:00:00 neoplasm of colon Medical Ce [facility]ter (procedure) [code = 295987674] Future Scheduled 1970 Screening for malignant [facility] 00:00:00 neoplasm of colon Medical Ce [facility]ter (procedure) [code = 985458569] Future Scheduled 1970 Sigmoidoscopy [code = [facility] Sigmoidoscopy] [facility] Cent[facility] Future Scheduled 1970 Screening for malignant [facility] 00:00:00 neoplasm of breast Medical C enter (procedure) [code = 168332546] Future Scheduled 1970 CT Colonography (combo) [facility] 00:00:00 [code = CT [facility] ([facility])] Future Scheduled 1970 Screening for malignant [facility] 00:00:00 neoplasm of colon Medical Ce [facility]ter (procedure) [code = 225504426] Future Scheduled 1970 Screening for malignant [facility] 00:00:00 neoplasm of colon Medical Ce [facility]ter (procedure) [code = 915147573] Future Scheduled 1970 Screening for malignant [facility] 00:00:00 neoplasm of colon Medical Ce [facility]ter (procedure) [code = 340585090] Future Scheduled 1970 Screening for malignant [facility] 00:00:00 neoplasm of colon Medical Ce [facility]ter (procedure) [code = 307476013] Future Scheduled 1970 Sigmoidoscopy [code = [facility] S[facility]oscopy] [facility] Cent[facility] Future Scheduled 1970 Screening for malignant [facility] 00:00:00 neoplasm of breast Medical C enter (procedure) [code = 136514680] Future Scheduled 1970 CT Colonography (combo) [facility] 00:00:00 [code = CT [facility] (combo)] Future Scheduled 1970 Screening for malignant [facility] 00:00:00 neoplasm of colon Medical Ce [facility]ter (procedure) [code = 723963037] Future Scheduled 1970 Screening for malignant [facility] 00:00:00 neoplasm of colon Medical Ce [facility]ter (procedure) [code = 487570510] Future Scheduled 1970 Screening for malignant [facility] 00:00:00 neoplasm of colon Medical Ce nter (procedure) [code = 771823323] Future Scheduled 1970 Screening for malignant [facility] 00:00:00 neoplasm of colon Medical Ce [facility]ter (procedure) [code = 734204151] Future Scheduled 1970 Sigmoidoscopy [code = [facility] S[facility]oscopy] [facility] Cent[facility] Future Scheduled 1970 Screening for malignant [facility] 00:00:00 neoplasm of breast Medical C enter (procedure) [code = 621725275] Future Scheduled 1970 CT Colonography (combo) [facility] 00:00:00 [code = CT [facility] ([facility])] Future Scheduled 1970 Screening for malignant [facility] 00:00:00 neoplasm of colon Medical Ce [facility]ter (procedure) [code = 575877133] Future Scheduled 1970 Screening for malignant [facility] 00:00:00 neoplasm of colon Medical Ce [facility]ter (procedure) [code = 766184273] Future Scheduled 1970 Screening for malignant [facility] 00:00:00 neoplasm of colon Medical Ce nter (procedure) [code = 850278905] Future Scheduled 1970 Screening for malignant [facility] 00:00:00 neoplasm of colon Medical Ce [facility]ter (procedure) [code = [id number]] Future Scheduled 1970 Sigmoidoscopy [code = [facility]] [facility] Future Scheduled 1970 Screening for malignant [facility] 00:00:00 neoplasm of breast Medical C enter (procedure) [code = [id number]] Future Scheduled 1970 CT Colonography (combo) [facility] 00:00:00 [code = CT [facility] ([facility])] Future Scheduled 1970 Screening for malignant [facility] 00:00:00 neoplasm of colon Medical Ce [facility]ter (procedure) [code = [id number]] Future Scheduled 1970 Screening for malignant [facility] 00:00:00 neoplasm of colon Medical Ce [facility]ter (procedure) [code = [id number]] Future Scheduled 1970 Screening for malignant [facility] 00:00:00 neoplasm of colon Medical Ce [facility]ter (procedure) [code = 393090194] Future Scheduled 1970 Screening for malignant [facility] 00:00:00 neoplasm of colon Medical Ce [facility]ter (procedure) [code = 197751520] Future Scheduled 1970 Sigmoidoscopy [code = [facility] S[facility]oscopy] [facility] Future Scheduled 1970 Screening for malignant [facility] 00:00:00 neoplasm of breast Medical C enter (procedure) [code = [id number]] Future Scheduled 1970 CT Colonography (combo) [facility] 00:00:00 [code = CT [facility] ([facility])] Future Scheduled 1970 Screening for malignant [facility] 00:00:00 neoplasm of colon Medical Ce [facility]ter (procedure) [code = 862034756] Future Scheduled 1970 Screening for malignant [facility] 00:00:00 neoplasm of colon Medical Ce [facility]ter (procedure) [code = 770273268] Future Scheduled 1970 Screening for malignant [facility] 00:00:00 neoplasm of colon Medical Ce [facility]ter (procedure) [code = 948926791] Future Scheduled 1970 Screening for malignant [facility] 00:00:00 neoplasm of colon Medical Ce [facility]ter (procedure) [code = 399759731] Future Scheduled 1970 Sigmoidoscopy [code = [facility] S[facility]] [facility] Future Scheduled 1970 Screening for malignant [facility] 00:00:00 neoplasm of breast Medical C enter (procedure) [code = 524371612] Future Scheduled 1970 CT Colonography (combo) [facility] 00:00:00 [code = CT Colonography [facility] (combo)] Future Scheduled 1970 Screening for malignant [facility] 00:00:00 neoplasm of colon Medical Ce [facility]ter (procedure) [code = 674164984] Future Scheduled 1970 Screening for malignant [facility] 00:00:00 neoplasm of colon Medical Ce [facility]ter (procedure) [code = [id number]] Future Scheduled 1970 Screening for malignant [facility] 00:00:00 neoplasm of colon Medical Ce [facility]ter (procedure) [code = 547460129] Future Scheduled 1970 Screening for malignant [facility] 00:00:00 neoplasm of colon Medical Ce [facility]ter (procedure) [code = 860275106] Future Scheduled 1970 Sigmoidoscopy [code = [facility] S[facility]oscopy] [facility] Future Scheduled 1970 Screening for malignant [facility] 00:00:00 neoplasm of breast Medical C enter (procedure) [code = [id number]] Future Scheduled 1970 CT Colonography (combo) [facility] 00:00:00 [code = CT Colonography [facility] (combo)] Future Scheduled 1970 Screening for malignant [facility] 00:00:00 neoplasm of colon Medical Ce nter (procedure) [code = [id number]] Future Scheduled 1970 Screening for malignant [facility] 00:00:00 neoplasm of colon Medical Ce [facility]ter (procedure) [code = 404072746] Future Scheduled 1970 Screening for malignant [facility] 00:00:00 neoplasm of colon Medical Ce [facility]ter (procedure) [code = 556245782] Future Scheduled 1970 Screening for malignant [facility] 00:00:00 neoplasm of colon Medical Ce [facility]ter (procedure) [code = 693120431] Future Scheduled 1970 Sigmoidoscopy [code = [facility] S[facility]oscopy] [facility] Future Scheduled 1970 Screening for malignant [facility] 00:00:00 neoplasm of breast Medical C enter (procedure) [code = 226029075] Future Scheduled 1970 CT Colonography (combo) [facility] 00:00:00 [code = CT Colonography [facility] (combo)] Future Scheduled 1970 Screening for malignant [facility] 00:00:00 neoplasm of colon Medical Ce [facility]ter (procedure) [code = 700169621] Future Scheduled 1970 Screening for malignant [facility] 00:00:00 neoplasm of colon Medical Ce [facility]ter (procedure) [code = 857372217] Future Scheduled 1970 Screening for malignant [facility] 00:00:00 neoplasm of colon Medical Ce [facility]ter (procedure) [code = 062082774] Future Scheduled 1970 Screening for malignant [facility] 00:00:00 neoplasm of colon Medical Ce [facility]ter (procedure) [code = 010449880] Future Scheduled 1970 Sigmoidoscopy [code = [facility] S[facility]oidoscopy] [facility] Future Scheduled 1970 Screening for malignant [facility] 00:00:00 neoplasm of breast Medical C enter (procedure) [code = 083593451] Future Scheduled 1970 CT Colonography (combo) [facility] 00:00:00 [code = CT Colonography [facility] (combo)] Future Scheduled 1970 Screening for malignant [facility] 00:00:00 neoplasm of colon Medical Ce [facility]ter (procedure) [code = [id number]] Future Scheduled 1970 Screening for malignant [facility] 00:00:00 neoplasm of colon Medical Ce [facility]ter (procedure) [code = 573561682] Future Scheduled 1970 Screening for malignant [facility] 00:00:00 neoplasm of colon Medical Ce [facility]ter (procedure) [code = 214766393] Future Scheduled 1970 Screening for malignant [facility] 00:00:00 neoplasm of colon Medical Ce [facility]ter (procedure) [code = 246438881] Future Scheduled 1970 Sigmoidoscopy [code = [facility] S[facility]oscopy] [facility] Future Scheduled 1970 Screening for malignant [facility] 00:00:00 neoplasm of breast Medical C enter (procedure) [code = 449186212] Future Scheduled 1970 CT Colonography (combo) [facility] 00:00:00 [code = CT Colonography [facility] (combo)] Future Scheduled 1970 Screening for malignant [facility] 00:00:00 neoplasm of colon Medical Ce nter (procedure) [code = 762029662] Future Scheduled 1970 Screening for malignant [facility] 00:00:00 neoplasm of colon Medical Ce [facility]ter (procedure) [code = [id number]] Future Scheduled 1970 Screening for malignant [facility] 00:00:00 neoplasm of colon Medical Ce [facility]ter (procedure) [code = 038724270] Future Scheduled 1970 Screening for malignant [facility] 00:00:00 neoplasm of colon Medical Ce [facility]ter (procedure) [code = 584902856] Future Scheduled 1970 Sigmoidoscopy [code = [facility] S[facility]oidoscopy] [facility] Future Scheduled 1970 Screening for malignant [facility] 00:00:00 neoplasm of breast Medical C enter (procedure) [code = [id number]] Future Scheduled 1970 CT Colonography (combo) [facility] 00:00:00 [code = CT [facility] ([facility])] Future Scheduled 1970 Screening for malignant [facility] 00:00:00 neoplasm of colon Medical Ce nter (procedure) [code = 244576164] Future Scheduled 1970 Screening for malignant [facility] 00:00:00 neoplasm of colon Medical Ce nter (procedure) [code = 635553660] Future Scheduled 1970 Screening for malignant [facility] 00:00:00 neoplasm of colon Medical Ce nter (procedure) [code = 185223616] Future Scheduled 1970 Screening for malignant [facility] 00:00:00 neoplasm of colon Medical Ce [facility]ter (procedure) [code = 535402771] Future Scheduled 1970 Sigmoidoscopy [code = [facility] S[facility]oidoscopy] [facility] Future Scheduled 1970 Screening for malignant [facility] 00:00:00 neoplasm of breast Medical C enter (procedure) [code = [id number]] Future Scheduled 1970 CT Colonography (combo) [facility] 00:00:00 [code = CT Colonography [facility] (combo)] Future Scheduled 1970 Screening for malignant [facility] 00:00:00 neoplasm of colon Medical Ce [facility]ter (procedure) [code = [id number]] Future Scheduled 1970 Screening for malignant [facility] 00:00:00 neoplasm of colon Medical Ce [facility]ter (procedure) [code = 531137776] Future Scheduled 1970 Screening for malignant [facility] 00:00:00 neoplasm of colon Medical Ce [facility]ter (procedure) [code = [id number]] Future Scheduled 1970 Screening for malignant [facility] 00:00:00 neoplasm of colon Medical Ce [facility]ter (procedure) [code = 495595745] Future Scheduled 1970 Sigmoidoscopy [code = [facility] S[facility]oscopy] [facility] Future Scheduled 1970 Screening for malignant [facility] 00:00:00 neoplasm of breast Medical C enter (procedure) [code = 020037485] Future Scheduled 1970 CT Colonography (combo) [facility] 00:00:00 [code = CT [facility] ([facility])] Future Scheduled 1970 Screening for malignant [facility] 00:00:00 neoplasm of colon Medical Ce [facility]ter (procedure) [code = 768995303] Future Scheduled 1970 Screening for malignant [facility] 00:00:00 neoplasm of colon Medical Ce [facility]ter (procedure) [code = 487333506] Future Scheduled 1970 Screening for malignant [facility] 00:00:00 neoplasm of colon Medical Ce [facility]ter (procedure) [code = 101093054] Future Scheduled 1970 Screening for malignant [facility] 00:00:00 neoplasm of colon Medical Ce [facility]ter (procedure) [code = 462746799] Future Scheduled 1970 Sigmoidoscopy [code = [facility] S[facility]oscopy] [facility] Future Scheduled 1970 Screening for malignant [facility] 00:00:00 neoplasm of breast Medical C enter (procedure) [code = 317099445] Future Scheduled 1970 CT Colonography (combo) [facility] 00:00:00 [code = CT Colonography [facility] (combo)] Future Scheduled 1970 Screening for malignant [facility] 00:00:00 neoplasm of colon Medical Ce [facility]ter (procedure) [code = 643201971] Future Scheduled 1970 Screening for malignant [facility] 00:00:00 neoplasm of colon Medical Ce nter (procedure) [code = 926803650] Future Scheduled 1970 Screening for malignant [facility] 00:00:00 neoplasm of colon Medical Ce nter (procedure) [code = 633869315] Future Scheduled 1970 Screening for malignant [facility] 00:00:00 neoplasm of colon Medical Ce nter (procedure) [code = 693812512] Future Scheduled 1970 Sigmoidoscopy [code = [facility] S[facility]oidoscopy] [facility] Future Scheduled 1970 Screening for malignant [facility] 00:00:00 neoplasm of breast Medical C enter (procedure) [code = 909565884] Future Scheduled 1970 CT Colonography (combo) [facility] 00:00:00 [code = CT [facility] (com[facility])] Future Scheduled 1970 Screening for malignant [facility] 00:00:00 neoplasm of colon Medical Ce [facility]ter (procedure) [code = [id number]] Future Scheduled 1970 Screening for malignant [facility] 00:00:00 neoplasm of colon Medical Ce [facility]ter (procedure) [code = 469839182] Future Scheduled 1970 Screening for malignant [facility] 00:00:00 neoplasm of colon Medical Ce nter (procedure) [code = 835509576] Future Scheduled 1970 Screening for malignant [facility] 00:00:00 neoplasm of colon Medical Ce [facility]ter (procedure) [code = 756729698] Future Scheduled 1970 Sigmoidoscopy [code = [facility]] [facility] Future Scheduled 1970 Screening for malignant [facility] 00:00:00 neoplasm of breast Medical C enter (procedure) [code = [id number]] Future Scheduled 1970 CT Colonography (combo) [facility] 00:00:00 [code = CT [facility] ([facility])] Future Scheduled 1970 Screening for malignant [facility] 00:00:00 neoplasm of colon Medical Ce nter (procedure) [code = 673468263] Future Scheduled 1970 Screening for malignant [facility] 00:00:00 neoplasm of colon Medical Ce nter (procedure) [code = 270717697] Future Scheduled 1970 Screening for malignant [facility] 00:00:00 neoplasm of colon Medical Ce nter (procedure) [code = 986998359] Future Scheduled 1970 Screening for malignant [facility] 00:00:00 neoplasm of colon Medical Ce nter (procedure) [code = 501395282] Future Scheduled 1970 Sigmoidoscopy [code = [facility]] [facility] Future Scheduled 1970 Screening for malignant [facility] 00:00:00 neoplasm of breast Medical C enter (procedure) [code = 375381219] Future Scheduled 1970 CT Colonography (combo) [facility] 00:00:00 [code = [facility] ([facility])] Future Scheduled 1970 Screening for malignant [facility] 00:00:00 neoplasm of colon Medical Ce nter (procedure) [code = 530353849] Future Scheduled 1970 Screening for malignant [facility] 00:00:00 neoplasm of colon Medical Ce nter (procedure) [code = 125966901] Future Scheduled 1970 Screening for malignant [facility] 00:00:00 neoplasm of colon Medical Ce nter (procedure) [code = 630109023] Future Scheduled 1970 Screening for malignant [facility] 00:00:00 neoplasm of colon Medical Ce nter (procedure) [code = [id number]] Future Scheduled 1970 Sigmoidoscopy [code = [facility]] [facility] Future Scheduled 1970 Screening for malignant [facility] 00:00:00 neoplasm of breast Medical C enter (procedure) [code = 118225691] Future Scheduled 1970 CT Colonography (combo) [facility] 00:00:00 [code = CT Colonography [facility] (combo)] Future Scheduled 1970 Screening for malignant [facility] 00:00:00 neoplasm of colon Medical Ce nter (procedure) [code = 758520053] Future Scheduled 1970 Screening for malignant [facility] 00:00:00 neoplasm of colon Medical Ce nter (procedure) [code = 690231928] Future Scheduled 1970 Screening for malignant [facility] 00:00:00 neoplasm of colon Medical Ce nter (procedure) [code = 746758954] Future Scheduled 1970 Screening for malignant [facility] 00:00:00 neoplasm of colon Medical Ce nter (procedure) [code = 481850264] Future Scheduled 1970 Sigmoidoscopy [code = [facility]] [facility] Future Scheduled 1970 Screening for malignant [facility] 00:00:00 neoplasm of breast Medical C enter (procedure) [code = 851427246] Future Scheduled 1970 CT Colonography (combo) [facility] 00:00:00 [code = CT [facility] ([facility])] Future Scheduled 1970 Screening for malignant [facility] 00:00:00 neoplasm of colon Medical Ce nter (procedure) [code = 178249669] Future Scheduled 1970 Screening for malignant [facility] 00:00:00 neoplasm of colon Medical Ce nter (procedure) [code = 767062181] Future Scheduled 1970 Screening for malignant [facility] 00:00:00 neoplasm of colon Medical Ce nter (procedure) [code = [id number]] Future Scheduled 1970 Screening for malignant [facility] 00:00:00 neoplasm of colon Medical Ce nter (procedure) [code = 389406033] Future Scheduled 1970 Sigmoidoscopy [code = [facility]] [facility] Future Scheduled 1970 Screening for malignant [facility] 00:00:00 neoplasm of breast Medical C enter (procedure) [code = 971722396] Future Scheduled 1970 CT Colonography (combo) [facility] 00:00:00 [code = CT Colonography [facility] (combo)] Future Scheduled 1970 Screening for malignant [facility] 00:00:00 neoplasm of colon Medical Ce nter (procedure) [code = 749897928] Future Scheduled 1970 Screening for malignant [facility] 00:00:00 neoplasm of colon Medical Ce nter (procedure) [code = 543302451] Future Scheduled 1970 Screening for malignant [facility] 00:00:00 neoplasm of colon Medical Ce nter (procedure) [code = 000305614] Future Scheduled 1970 Screening for malignant [facility] 00:00:00 neoplasm of colon Medical Ce nter (procedure) [code = 412228819] Future Scheduled 1970 Sigmoidoscopy [code = [facility] S[facility]oscopy] [facility] Future Scheduled 1970 Screening for malignant [facility] 00:00:00 neoplasm of breast Medical C enter (procedure) [code = 872894492] Future Scheduled 1970 CT Colonography (combo) [facility] 00:00:00 [code = [facility] ([facility])] Future Scheduled 1970 Screening for malignant [facility] 00:00:00 neoplasm of colon Medical Ce nter (procedure) [code = 555136834] Future Scheduled 1970 Screening for malignant [facility] 00:00:00 neoplasm of colon Medical Ce nter (procedure) [code = 574888455] Future Scheduled 1970 Screening for malignant [facility] 00:00:00 neoplasm of colon Medical Ce nter (procedure) [code = 359379098] Future Scheduled 1970 Screening for malignant [facility] 00:00:00 neoplasm of colon Medical Ce nter (procedure) [code = 168581857] Future Scheduled 1970 Sigmoidoscopy [code = [facility] S[facility]] [facility] Future Scheduled 1970 Screening for malignant [facility] 00:00:00 neoplasm of breast Medical C enter (procedure) [code = [id number]] Future Scheduled 1970 CT Colonography (combo) [facility] 00:00:00 [code = [facility] ([facility])] Future Scheduled 1970 Screening for malignant [facility] 00:00:00 neoplasm of colon Medical Ce nter (procedure) [code = [id number]] Future Scheduled 1970 Screening for malignant [facility] 00:00:00 neoplasm of colon Medical Ce nter (procedure) [code = 399626232] Future Scheduled 1970 Screening for malignant [facility] 00:00:00 neoplasm of colon Medical Ce nter (procedure) [code = 167884478] Future Scheduled 1970 Screening for malignant [facility] 00:00:00 neoplasm of colon Medical Ce nter (procedure) [code = 454732289] Future Scheduled 1970 Sigmoidoscopy [code = [facility] S[facility]] [facility] Future Scheduled 1970 Screening for malignant [facility] 00:00:00 neoplasm of breast Medical C enter (procedure) [code = 363741674] Future Scheduled 1970 CT Colonography (combo) [facility] 00:00:00 [code = [facility] ([facility])] Future Scheduled 1970 Screening for malignant [facility] 00:00:00 neoplasm of colon Medical Ce nter (procedure) [code = 764294485] Future Scheduled 1970 Screening for malignant [facility] 00:00:00 neoplasm of colon Medical Ce nter (procedure) [code = 521201035] Future Scheduled [address] Screening for malignant [facility] 00:00:00 neoplasm of colon Medical Ce nter (procedure) [code = 849413439] Future Scheduled 1970 Screening for malignant [facility] 00:00:00 neoplasm of colon Medical Ce nter (procedure) [code = 496642691] Future Scheduled 1970 Sigmoidoscopy [code = [facility] S[facility]oidoscopy] [facility] Future Scheduled 1970 Screening for malignant [facility] 00:00:00 neoplasm of breast Medical C enter (procedure) [code = 788093880] Future Scheduled 1970 CT Colonography (combo) [facility] 00:00:00 [code = [facility] ([facility])] Future Scheduled 1970 Screening for malignant [facility] 00:00:00 neoplasm of colon Medical Ce nter (procedure) [code = 573431098] Future Scheduled 1970 Screening for malignant [facility] 00:00:00 neoplasm of colon Medical Ce nter (procedure) [code = 749327407] Future Scheduled 1970 Screening for malignant [facility] 00:00:00 neoplasm of colon Medical Ce nter (procedure) [code = 442085037] Future Scheduled 1970 Screening for malignant [facility] 00:00:00 neoplasm of colon Medical Ce nter (procedure) [code = 788468231] Future Scheduled 1970 Sigmoidoscopy [code = [facility]] [facility] Future Scheduled 1970 Screening for malignant [facility] 00:00:00 neoplasm of breast Medical C enter (procedure) [code = 704853167] Future Scheduled 1970 CT Colonography (combo) [facility] 00:00:00 [code = [facility] ([facility])] Future Scheduled 1970 Screening for malignant [facility] 00:00:00 neoplasm of colon Medical Ce nter (procedure) [code = 431037821] Future Scheduled 1970 Screening for malignant [facility] 00:00:00 neoplasm of colon Medical Ce nter (procedure) [code = 093785585] Future Scheduled [address] Screening for malignant [facility] 00:00:00 neoplasm of colon Medical Ce nter (procedure) [code = 803204743] Future Scheduled 1970 Screening for malignant [facility] 00:00:00 neoplasm of colon Medical Ce nter (procedure) [code = 483935027] Future Scheduled 1970 Sigmoidoscopy [code = [facility]] [facility] Future Scheduled 1970 Screening for malignant [facility] 00:00:00 neoplasm of breast Medical C enter (procedure) [code = 047110176] Future Scheduled 1970 CT Colonography (combo) [facility] 00:00:00 [code = [facility] ([facility])] Future Scheduled 1970 Screening for malignant [facility] 00:00:00 neoplasm of colon Medical Ce nter (procedure) [code = 180238288] Future Scheduled 1970 Screening for malignant [facility] 00:00:00 neoplasm of colon Medical Ce nter (procedure) [code = 635288706] Future Scheduled [address] Screening for malignant [facility] 00:00:00 neoplasm of colon Medical Ce nter (procedure) [code = 389880607] Future Scheduled 1970 Screening for malignant [facility] 00:00:00 neoplasm of colon Medical Ce nter (procedure) [code = 984625101] Future Scheduled 1970 Sigmoidoscopy [code = [facility]] [facility] Future Scheduled 1970 Screening for malignant [facility] 00:00:00 neoplasm of breast Medical C enter (procedure) [code = 569393863] Future Scheduled 1970 CT Colonography (combo) [facility] 00:00:00 [code = [facility] ([facility])] Future Scheduled 1970 Screening for malignant [facility] 00:00:00 neoplasm of colon Medical Ce nter (procedure) [code = 645714801] Future Scheduled 1970 Screening for malignant [facility] 00:00:00 neoplasm of colon Medical Ce nter (procedure) [code = 298865852] Future Scheduled [address] Screening for malignant [facility] 00:00:00 neoplasm of colon Medical Ce nter (procedure) [code = 578501549] Future Scheduled 1970 Screening for malignant [facility] 00:00:00 neoplasm of colon Medical Ce nter (procedure) [code = 753824211] Future Scheduled 1970 Sigmoidoscopy [code = [facility]] [facility] Future Scheduled 1970 Screening for malignant [facility] 00:00:00 neoplasm of breast Medical C enter (procedure) [code = 504668212] Future Scheduled 1970 CT Colonography (combo) [facility] 00:00:00 [code = [facility] ([facility])] Future Scheduled 1970 Screening for malignant [facility] 00:00:00 neoplasm of colon Medical Ce nter (procedure) [code = 304973210] Future Scheduled 1970 Screening for malignant [facility] 00:00:00 neoplasm of colon Medical Ce nter (procedure) [code = 929965664] Future Scheduled [address] Screening for malignant [facility] 00:00:00 neoplasm of colon Medical Ce nter (procedure) [code = 567991644] Future Scheduled 1970 Screening for malignant [facility] 00:00:00 neoplasm of colon Medical Ce nter (procedure) [code = 094850850] Future Scheduled 1970 Sigmoidoscopy [code = [facility]] [facility] Future Scheduled 1970 Screening for malignant [facility] 00:00:00 neoplasm of breast Medical C enter (procedure) [code = 203028393] Future Scheduled 1970 CT Colonography (combo) [facility] 00:00:00 [code = [facility] ([facility])] Future Scheduled 1970 Screening for malignant [facility] 00:00:00 neoplasm of colon Medical Ce nter (procedure) [code = 718349217] Future Scheduled 1970 Screening for malignant [facility] 00:00:00 neoplasm of colon Medical Ce nter (procedure) [code = 908549418] Future Scheduled 1970 Screening for malignant [facility] 00:00:00 neoplasm of colon Medical Ce nter (procedure) [code = 985340426] Future Scheduled 1970 Screening for malignant [facility] 00:00:00 neoplasm of colon Medical Ce nter (procedure) [code = 381603633] Future Scheduled 1970 Sigmoidoscopy [code = [facility]] Medical Cente r Future Scheduled 1970 Screening for malignant [facility] 00:00:00 neoplasm of breast Medical C enter (procedure) [code = 925200062] Future Scheduled 1970 CT Colonography (combo) [facility] 00:00:00 [code = CT Colonography [facility] (combo)] Future Scheduled 1970 Screening for malignant [facility] 00:00:00 neoplasm of colon Medical Ce nter (procedure) [code = 213585921] Future Scheduled 1970 Screening for malignant [facility] 00:00:00 neoplasm of colon Medical Ce nter (procedure) [code = 449813240] Future Scheduled 1970 Screening for malignant [facility] 00:00:00 neoplasm of colon Medical Ce nter (procedure) [code = 317199671] Future Scheduled 1970 Screening for malignant [facility] 00:00:00 neoplasm of colon Medical Ce nter (procedure) [code = 280015946] Future Scheduled 1970 Sigmoidoscopy [facility]code [facility]oscopy] Medical Cente r Future Scheduled 1970 Screening for malignant [facility] 00:00:00 neoplasm of breast Medical C enter (procedure) [code = 777591914] Future Scheduled 1970 CT Colonography (combo) [facility] 00:00:00 [code = CT Colonography [facility] (combo)] Future Scheduled 1970 Screening for malignant [facility] 00:00:00 neoplasm of colon Medical Ce nter (procedure) [code = 797409374] Future Scheduled 1970 Screening for malignant [facility] 00:00:00 neoplasm of colon Medical Ce nter (procedure) [code = 325762479] Future Scheduled 1970 Screening for malignant [facility] 00:00:00 neoplasm of colon Medical Ce nter (procedure) [code = 475154078] Future Scheduled 1970 Screening for malignant [facility] 00:00:00 neoplasm of colon Medical Ce nter (procedure) [code = 590305259] Future Scheduled 1970 Sigmoidoscopy [code = [facility]oscopy] [facility] 1970 Screening for malignant [facility] 00:00:00 neoplasm of breast Medical C enter (procedure) [code = 010726014] Future Scheduled 1970 CT Colonography (combo) [facility] 00:00:00 [code = CT Colonography [facility] (combo)] Future Scheduled 1970 Screening for malignant [facility] 00:00:00 neoplasm of colon Medical Ce nter (procedure) [code = 438726883] Future Scheduled 1970 Screening for malignant [facility] 00:00:00 neoplasm of colon Medical Ce nter (procedure) [code = 077679418] Future Scheduled 1970 Screening for malignant [facility] 00:00:00 neoplasm of colon Medical Ce nter (procedure) [code = 793658884] Future Scheduled 1970 Screening for malignant [facility] 00:00:00 neoplasm of colon Medical Ce nter (procedure) [code = 830100120] Future Scheduled 1970 Sigmoidoscopy [code [facility] S[facility]oscopy] Medical Cente r Future Scheduled 1970 Screening for malignant [facility] 00:00:00 neoplasm of breast Medical C enter (procedure) [code = 266698028] Future Scheduled 1970 CT Colonography (combo) [facility] 00:00:00 [code = CT Colonography [facility] (combo)] Future Scheduled 1970 Screening for malignant [facility] 00:00:00 neoplasm of colon Medical Ce nter (procedure) [code = 779604236] Future Scheduled 1970 Screening for malignant [facility] 00:00:00 neoplasm of colon Medical Ce nter (procedure) [code = 617365218] Future Scheduled 1970 Screening for malignant [facility] 00:00:00 neoplasm of colon Medical Ce nter (procedure) [code = 760249284] Future Scheduled 1970 Screening for malignant [facility] 00:00:00 neoplasm of colon Medical Ce nter (procedure) [code = 634496587] Future Scheduled 1970 Sigmoidoscopy [facility]code [facility]oscopy] Medical Cente r Future Scheduled 1970 Screening for malignant [facility] 00:00:00 neoplasm of breast Medical C enter (procedure) [code = 042673359] Future Scheduled 1970 Screening for malignant [facility] 00:00:00 neoplasm of colon Medical Ce nter (procedure) [code = 720073876] Future Scheduled 1970 Screening for malignant [facility] 00:00:00 neoplasm of breast Medical C enter (procedure) [code = 714327212] Future Scheduled 1970 Screening for malignant [facility] 00:00:00 neoplasm of colon Medical Ce nter (procedure) [code = 451934350] Future Scheduled 1970 Screening for malignant [facility] 00:00:00 neoplasm of breast Medical C enter (procedure) [code = 152655455] Future Scheduled 1970 CT Colonography (combo) [facility] 00:00:00 [code = CT Colonography [facility] (combo)] Future Scheduled 1970 Screening for malignant [facility] 00:00:00 neoplasm of colon Medical Ce nter (procedure) [code = 730369926] Future Scheduled 1970 Screening for malignant [facility] 00:00:00 neoplasm of colon Medical Ce nter (procedure) [code = 736046317] Future Scheduled 1970 Screening for malignant [facility] 00:00:00 neoplasm of colon Medical Ce nter (procedure) [code = 373634970] Future Scheduled 1970 Screening for malignant [facility] 00:00:00 neoplasm of colon Medical Ce nter (procedure) [code = 579580955] Future Scheduled 1970 Sigmoidoscopy [code [facility] S[facility]oscopy] Medical Cente r Encounters Start End Encounter Admission Attending Care Care Encounter Source Date/Time Date/Time Type Type Clinicians Facility Department ID 2021-06-11 Inpatient [facility] Surgery [id number] SLE 09:54:45 2021-06-01 Outpatient SYSTEM, [facility] [id number] 08:07:56 PROVIDER Alfred o n 2023-02-12 2023-02-12 Outpatient [facility] [id number] SLE 00:00:00 00:00:00 2023-02-10 2023-02-10 Outpatient [facility] [id number] SLE 00:00:00 00:00:00 2023-02-10 2023-02-10 Outpatient [facility] [id number] SLE 00:00:00 00:00:00 2023-02-10 2023-02-10 Outpatient BRADY [facility] [id number] SLE 00:00:00 00:00:00 TANNAZ 2023-01-28 2023-01-28 Outpatient EL SLEH SLE [id number] SLEH 00:00:00 00:00:00 2023-01-27 2023-01-27 Outpatient KEVIN DALTON SLE [id number] SLEH 08:55:25 11:30:35 [facility] 2023-01-27 2023-01-27 Outpatient EL SLEH SLEH [id number] SLEH 08:41:38 08:41:38 2023-01-27 2023-01-27 Outpatient KEVIN DALTON SLEH Angela [id number] SLEH 00:00:00 00:00:00 [facility] 2023-01-26 2023-01-26 Outpatient EL SLEH SLE [id number] SLEH 00:00:00 00:00:00 2023-01-26 2023-01-26 Outpatient ZACHERY SLERachele SLE [id number] SLEH 00:00:00 00:00:00 2023-01-15 2023-01-15 Outpatient CAR DALTON SLE [id number] SLEH 10:12:27 23:59:00 [facility] 2023-01-13 2023-01-13 Outpatient CAR DALTON SLE [id number] SLEH 10:43:53 23:59:00 [facility] 2023-01-13 2023-01-13 Outpatient KEVIN DALTON SLE [id number] SLEH 09:33:34 11:34:41 [facility] 2023-01-13 2023-01-13 Outpatient EL SLE SLE [id number] SLEH 09:20:44 09:20:44 2023-01-01 2023-01-01 Outpatient CAR DALTON SLE [id number] SLEH 12:38:58 23:59:00 [facility] 2022-12-30 2022-12-30 Outpatient KEVIN DALTON SLE Angela [id number] SLEH 10:38:40 23:59:00 [facility] 2022-12-30 2022-12-30 Outpatient CAR DALTON SLE [id number] SLEH 09:06:55 14:05:01 [facility] 2022-12-30 2022-12-30 Outpatient EL SLEH SLE [id number] SLEH 08:49:16 08:49:16 2022-12-23 2022-12-23 Outpatient ZACHERY ABREU SLEH SLEH [id number] SLEH 09:00:43 23:59:00 [facility] 2022-12-23 2022-12-23 Outpatient KEVIN DALTON SLE [id number] SLEH 09:00:29 09:00:00 [facility] 2022-12-18 2022-12-18 Outpatient KEVIN DALTON SLE [id number] SLEH 13:40:32 23:59:00 [facility] 2022-12-17 2022-12-17 Outpatient EL SLEH SLE [id number] SLEH 00:00:00 00:00:00 2022-12-16 2022-12-16 Outpatient CAR DALTON SLE [id number] SLEH 13:23:23 23:59:00 [facility] 2022-12-16 2022-12-16 Outpatient KEVIN DALTON SLE [id number] SLEH 10:52:33 13:36:31 [facility] 2022-12-16 2022-12-16 Outpatient EL SLEH SLE [id number] SLEH 10:40:33 10:40:33 2022-12-16 2022-12-16 Outpatient EL SLEH SLE [id number] SLEH 00:00:00 00:00:00 2022-12-15 2022-12-15 Outpatient EL SLEH SLE [id number] SLEH 00:00:00 00:00:00 2022-12-15 2022-12-15 Outpatient EL SLEH SLE [id number] SLEH 00:00:00 00:00:00 2022-12-04 2022-12-04 Outpatient ZACHERY ABREU SLE SLE [id number] SLEH 12:19:00 23:59:00 [facility] 2022-12-03 2022-12-03 Outpatient EL SLEH SLE [id number] SLEH 00:00:00 00:00:00 2022-12-02 2022-12-02 Outpatient KEVIN DALTON SLE [id number] SLEH 11:42:12 23:59:00 TANNOH 2022-12-02 2022-12-02 Outpatient KEVIN DALTON SLEH [id number] SLEH 11:24:24 11:32:08 TANNOH 2022-12-02 2022-12-02 Outpatient EL SLEH SLE [id number] SLEH 11:18:42 11:18:42 2022-12-01 2022-12-01 Outpatient SLE SLE [id number] SLEH 00:00:00 00:00:00 2022-12-01 2022-12-01 Outpatient EL SLE SLE [id number] SLEH 00:00:00 00:00:00 2022-12-01 2022-12-01 Outpatient EL SLEH SLE [id number] SLEH 00:00:00 00:00:00 2022-11-20 2022-11-20 Outpatient CAR DALTON SLE [id number] SLEH 13:37:49 23:59:00 [facility] 2022-11-19 2022-11-19 [id number] SLEH 00:00:00 00:00:00 2022-11-18 2022-11-18 Outpatient KEVIN DALTON SLE [id number] SLEH 10:50:24 23:59:00 [facility] 2022-11-18 2022-11-18 Outpatient KEVIN DALTON SLE [id number] SLEH 08:37:36 12:08:08 [facility] 2022-11-18 2022-11-18 Outpatient EL SLE SLE [id number] SLEH 08:29:31 08:29:31 2022-11-18 2022-11-18 Outpatient EL SLE SLE [id number] SLEH 00:00:00 00:00:00 2022-11-17 2022-11-17 Outpatient EL SLE SLE [id number] SLEH 00:00:00 00:00:00 2022-11-17 2022-11-17 Outpatient EL SLE SLE [id number] SLEH 00:00:00 00:00:00 2022-11-06 2022-11-06 Outpatient ZACHERY ABREU SLE SLE [id number] SLEH 11:06:21 23:59:00 TANNOH 2022-11-06 2022-11-06 Outpatient EL SLE SLE [id number] SLEH 00:00:00 00:00:00 2022-11-05 2022-11-05 Outpatient ZACHERY ABREU [facility] [id number] SLEH 15:39:43 23:59:00 TANNAZ 2022-11-03 2022-11-03 Outpatient ZACHERY ABREU [facility] SLE [id number] SLEH 09:48:30 23:59:00 TANNOH 2022-11-03 2022-11-03 Outpatient SLE SLE [id number] SLEH 09:33:06 09:33:06 2022-11-03 2022-11-03 Outpatient [facility] [id number] SLEH 00:00:00 00:00:00 2022-10-16 2022-10-16 Orders Armando [facility] [id number] 00:00:00 00:00:00 Only [facility] 2022-10-13 2022-10-13 Emergency ER Genaro Painteromide Miranda i [facility] [id number] [facility] 10:45:00 17:28:00 Anju Jin [facility] 2022-10-13 2022-10-13 Emergency ER RUSTIGOR [facility] Emergency [id number] SLE 10:45:00 17:28:00 [facility] 2022-10-13 2022-10-13 Travel [facility] [id number] 00:00:00 [facility] 2022-09-23 2022-09-23 Outpatient ZACHERY ABREU [facility] [id number] [facility] 00:00:00 00:00:00 [facility] 2022-09-23 2022-09-23 Outpatient ZACHERY ABREU [facility] [id number] [facility] 00:00:00 00:00:00 [facility] 2022-09-16 2022-09-16 Outpatient ZACHERY ABREU, [facility] [id number] [facility] 07:31:22 23:59:00 [facility] 2022-09-16 2022-09-16 [facility] [id number] 07:31:22 23:59:00 Encounter [facility] 2022-09-16 2022-09-16 [facility] [id number] 07:31:01 23:59:00 Encounter [facility] 2022-09-16 2022-09-16 Outpatient BRADY, [facility] [id number] [facility] 07:31:01 23:59:00 [facility] 2022-09-16 2022-09-16 Travel [facility] [id number] [facility] 00:[facility]00 00:00:00 [facility] 2022-09-15 2022-09-15 [facility] [id number] 00:00:00 00:00:00 Only [facility] 2022-09-07 2022-09-07 [id number] 00:[facility]00 00:00:00 Only [facility] 2022-08-05 2022-08-08 Hospital ER [facility] [id number] 05:05:00 09:30:00 Encounter Manjit Whitaker [facility] Brittny Hall [facility] 2022-08-05 2022-08-08 Inpatient ER BRITTNY HALL [facility] Med [id number] [facility] 05:05:00 09:30:00 2022-08-07 2022-08-07 Surgery Rianna, [facility] [id number] 09:00:00 10:30:00 Steven Edmonds [facility] 2022-08-07 2022-08-07 Anesthesia Barbara Yao [facility] [id number] 09:05:00 10:00:00 Event Kimmie Garcia [facility] 2022-08-05 2022-08-05 Outpatient EL SLE SLE [id number] SLEH 07:06:13 07:06:13 2022-08-05 2022-08-05 Travel [facility] [id number] [facility] 00:[facility]00 00:00:00 [facility] 2022-07-27 2022-07-27 Outpatient EL SLE SLE [id number] SLEH 06:41:40 06:41:40 2022-07-02 2022-07-02 Outpatient CARINE BLANC SLE SLE [id number] SLE 10:55:51 10:55:51 2022-07-02 2022-07-02 Office Carine Knight [facility] [id number] 09:45:00 10:00:00 Visit [facility] 2022-06-24 2022-06-24 Outpatient SLE SLE [id number] SLEH 00:00:00 00:00:00 2022-05-28 2022-05-28 [facility] [id number] 09:28:00 23:59:00 Encounter 1.5, [facility] 2022-05-28 2022-05-28 Outpatient CAR DALTON SLE [id number] SLE 09:28:00 23:59:00 [facility] 2022-05-28 2022-05-28 [facility] [id number] 09:27:12 09:27:12 Encounter 1, [facility] 2022-05-28 2022-05-28 Outpatient CAR DALTON SLE [id number] SLEH 09:27:12 09:27:12 [facility] 2022-04-20 2022-04-20 Outpatient EL SLEH SLEH [id number] SLEH 13:06:42 13:06:42 2022-03-25 2022-03-25 Orders Brady [facility] [id number] 00:00:00 00:00:00 Only [facility] 2022-03-23 2022-03-23 Procedure Palacios, [facility] [id number] 09:30:00 10:30:00 visit [facility] 2022-02-19 2022-02-19 Procedure Palacios, [facility] [id number] 09:30:00 10:30:00 visit [facility] 2022-02-19 2022-02-19 Outpatient EL SLEH SLEH [id number] SLEH 06:35:20 06:35:20 2022-02-04 2022-02-04 Procedure EL Palacios, [facility] [id number] 14:00:00 15:00:00 visit [facility] 2022-02-04 2022-02-04 Outpatient EL SLEH SLEH [id number] SLEH 08:02:11 08:02:11 2022-02-03 2022-02-03 Outpatient EL SLEH SLEH [id number] [facility]H 00:00:00 00:00:00 2022-02-02 2022-02-02 Outpatient EL SLEH SLEH [id number] [facility]H 07:23:11 07:23:11 2022-02-02 2022-02-02 [facility] [id number] 00:00:00 00:00:00 [facility] 2022-01-22 2022-01-22 Documentat Boy [facility] [id number] 00:00:00 00:00:00 ion [facility] 2022-01-06 2022-01-06 [facility] Brady [facility] [id number] 13:51:17 23:59:00 Encounter [facility] 2022-01-06 2022-01-06 Outpatient ZACHERY ABREU SLE SLE [id number] SLEH 13:51:17 23:59:00 [facility] 2021-12-29 2021-12-29 Outpatient EL SLEH SLEH [id number] SLEH 15:50:07 15:50:07 2021-12-29 2021-12-29 Orders ZACHERY Abreu [facility] [id number] 09:30:00 09:45:00 Only [facility] 2021-12-25 2021-12-25 Camilo Brunson [facility] [id number] 00:00:00 00:00:00 ion [facility] 2021-12-25 2021-12-25 [facility] Brady [facility] [id number] 00:00:00 00:00:00 Orders [facility] 2021-12-19 2021-12-19 Outpatient EL SLE SLE [id number] SLEH 10:13:05 10:13:05 2021-12-19 2021-12-19 Orders ZACHERY Miranda [facility] [id number] 09:00:00 09:15:00 Only [facility] 2021-12-05 2021-12-05 Outpatient EL SLEH SLEH [id number] SLEH 14:33:51 14:33:51 2021-12-05 2021-12-05 Orders ZACHERY Marycarmencodeylink [facility] [id number] 09:00:00 09:15:00 Only [facility] 2021-12-01 2021-12-01 Outpatient EL SLEH SLEH [id number] SLEH 14:39:43 14:39:43 2021-11-28 2021-11-28 Orders ZACHERY Marycarmencodeylink [facility] [id number] 07:15:00 07:30:00 Only [facility] 2021-11-21 2021-11-21 [facility] [id number] 11:30:22 23:59:00 Encounter [facility] 2021-11-21 2021-11-21 Outpatient CAR DALTON SLEH [id number] SLEH 11:30:22 23:59:00 [facility] 2021-11-21 2021-11-21 [facility] [id number] 10:09:16 11:29:00 Encounter [facility] 2021-11-21 2021-11-21 Outpatient BRADY [facility] SLE [id number] SLEH 10:09:16 11:29:00 [facility] 2021-11-21 2021-11-21 [facility], [facility] [id number] 10:08:31 10:08:31 Encounter [facility] 2021-11-21 2021-11-21 Outpatient CAR DALTON SLE [id number] SLEH 10:08:31 10:08:31 [facility] 2021-11-21 2021-11-21 [facility] SLE [id number] SLE 11:30:13 10:07:00 [facility] 2021-11-21 2021-11-21 [facility] [id number] 09:00:00 10:07:00 Encounter [facility] 2021-11-20 2021-11-20 [facility] [id number] 00:00:00 00:00:00 Orders [facility] 2021-11-14 2021-11-14 Outpatient [facility] SLE [id number] SLE 16:05:04 16:05:04 2021-11-14 2021-11-14 Orders [facility] [id number] 09:45:00 10:00:00 Only [facility] 2021-10-07 2021-10-07 [facility] [id number] 00:00:00 00:00:00 Orders [facility] 2021-08-25 2021-08-25 Refill Wilber [facility] [id number] 00:00:00 00:00:00 [facility] 2021-08-05 2021-08-05 Outpatient ZACHERY ABREU, [facility] [id number] [facility] 00:00:00 00:00:00 [facility] 2021-08-05 2021-08-05 Telephone Rodriguez, [facility] [id number] 00:00:00 00:00:00 [facility] 2021-08-04 2021-08-04 Outpatient ZACHERY ABREU, [facility] [id number] [facility] 09:40:19 12:58:00 [facility] 2021-08-04 2021-08-[address] [facility] [id number] 08:43:00 12:58:00 Encounter DreaMaryjaimierima [facility] 2021-08-04 2021-08-04 Outpatient [facility], [facility] [id number] [facility] 09:06:45 09:06:45 [facility] 2021-08-04 2021-08-04 [facility] [id number] [facility] 09:06:38 09:06:38 [facility] 2021-07-31 2021-07-31 Telephone Michael [facility] [id number] 00:00:00 00:00:00 [facility] 2021-07-31 2021-07-31 Telephone Michael [facility] [id number] 00:00:00 00:00:00 [facility] 2021-07-29 2021-07-29 Outside Mary [facility] [id number] 00:00:00 00:00:00 Orders [facility] 2021-07-28 2021-07-28 [facility] [id number] 14:26:25 23:59:00 Encounter [facility] 2021-07-28 2021-07-28 Outpatient ZACHERY ABREU [facility] [id number] SLE 14:26:25 23:59:00 [facility] 2021-07-28 2021-07-28 Outpatient BRADY [facility] [id number] SLE 14:26:18 14:25:00 [facility] 2021-07-28 2021-07-28 [facility] [id number] 14:00:00 14:25:00 Encounter [facility] 2021-07-25 2021-07-25 Outside [facility] [id number] 00:00:00 00:00:00 Orders [facility] 2021-07-23 2021-07-23 [facility] [id number] [facility] 00:00:00 00:00:00 [facility] 2021-07-22 2021-07-22 [facility] [id number] 00:00:00 00:00:00 [facility] 2021-07-21 2021-07-21 [facility] [id number] 00:00:00 00:00:00 Orders [facility] 2021-07-07 2021-07-11 Inpatient UR LUPILLO GODDARD [facility] General Med 2 [id number] SLE 09:45:00 12:28:00 2021-07-07 2021-07-11 [facility] [id number] [facility] 09:45:00 12:28:00 Encounter Anna [facility] Estrada, Lupillo Roma r 2021-07-10 2021-07-10 Anesthesia Harrison [facility] [id number] 10:54:00 12:31:00 Event Halie [facility] 2021-07-10 2021-07-10 Surgery Johanne [facility] [id number] 11:00:00 12:10:00 [facility] 2021-07-07 2021-07-07 [facility] [id number] [facility] 00:[facility]:00 00:00:00 [facility] 2021-06-03 2021-06-26 Inpatient ER [facility] [id number] [facility] 08:45:00 11:07:00 [facility] 2021-06-03 2021-06-26 Hospital ER Mccrary Katya Marmolejooma [facility] [id number] [facility] 08:45:00 11:07:00 [facility] 2021-06-18 Orders Jerrell [facility] [id number] 00:00:00 00:00:00 Only Yesenia [facility] 2021-06-12 2021-06-12 Anesthesia BowersVaibhavang [facility] [id number] [facility] 16:09:00 18:16:00 Event Cherry Cuevas [facility] 2021-06-12 2021-06-12 Surgery Virtual, [facility] [id number] [facility] 13:00:00 15:39:00 Surgeon [facility] 2021-06-09 2021-06-09 Ancillary EL 1.2.840.1 [id number] [facility] 20:05:00 20:10:00 Procedure 30498.1.1 it y of 3.412.2.7 [place] .[id number] MD Winston8 [facility] 2021-06-09 2021-06-09 Ancillary EL 1.2.840.1 [id number] [facility] 20:00:00 20:05:00 Procedure 24628.1.1 it y of 3.412.2.7 [place] .[id number] MD Winston8 [facility] 2021-06-09 2021-06-09 Ancillary EL 1.2.840.1 [id number] [facility] 17:00:00 17:05:00 Procedure [id number] it y of 3.412.2.7 [place] .[id number] MD Lynn [facility] 2021-06-07 2021-06-07 Anesthesia [facility] [id number] 09:25:00 11:25:00 [facility]-07 2021-06-07 Surgery [facility] [id number] 09:23:00 10:58:00 [facility] 2021-06-03 2021-06-03 Travel [facility] [id number] [facility] 00:[facility]00 [facility] 2020-09-16 2020-09-16 Outpatient [facility] [id number] RIH COH 00:00:00 00:00:00 [id number] Results Test Description Test Time Test Comments Results Result Comments Source CARCINOEMBRYONIC ANTIGEN (CEA) 2023-01-27 13:40:59 Test Item Value Reference Range Interpretation Comme nts CARCINOEMBRYONIC ANTIGEN (BEAKER) (test code = 685) 1.7 ng/mL 0. 0-5.0 Clinical Services Specialist ID - [id number] 13:40:59 Test Item Value Reference Range Interpretation Comments CORTISOL, TOTAL (BEAKER) (test code 4.4 ug/dL 3.7-19.4 = 2755) Clinical Services Specialist ID - ADMINCOMPREHENSIVE METABOLIC [id number] 09:52:32 Test Item Value Reference Range Interpretation Comments TOTAL PROTEIN 7.1 gm/dL 6.0-8.3 (BEAKER) (test code = 770) ALBUMIN (BEAKER) 4.5 g/dL 3.5-5.0 (test code = 1145) ALKALINE 312 U/L 40-150 H PHOSPHATASE (BEAKER) (test code = 346) BILIRUBIN TOTAL 0.7 mg/dL 0.2-1.2 (BEAKER) (test code = 377) SODIUM (BEAKER) 140 meq/L 136-145 (test code = 381) POTASSIUM (BEAKER) 3.3 meq/L 3.5-5.1 L (test code = 379) CHLORIDE (BEAKER) 103 meq/L 98-107 (test code = 382) CO2 (BEAKER) (test 29 meq/L 22-29 code = 355) BLOOD UREA 15 mg/dL 7-21 NITROGEN (BEAKER) (test code = 354) CREATININE 0.68 mg/dL 0.57-1.25 (BEAKER) (test code = 358) GLUCOSE RANDOM 109 mg/dL 70-105 H (BEAKER) (test code = 652) CALCIUM (BEAKER) 9.2 mg/dL 8.4-10.2 (test code = 697) AST (SGOT) 75 U/L 5-34 H (BEAKER) (test code = 353) ALT (SGPT) 101 U/L 6-55 H (BEAKER) (test code = 347) EGFR (BEAKER) 105 Interpretatio n of eGFR (test code = 1092) mL/min/1.[address] age Description sq m Result G1 Nataliya l or high >=90 G2 Mildly decreased 60-89 G3a Mildl y to moderately 45-5 9 G3b Moderately to s everely 30-44 G4 Severl y decreased 15-29 G5 Kidney failure <15Reported eGF R is based on the CKD-EPI 2021 equation that d oes not use a race coefficientEsti mated GFR is not as accur ate as Creatinine Roya henley in predicting glom erular filtration rate . Estimated GFR is not appl icable for dialysis patien ts [id number] 09:51:18 Test Item Value Reference Range Interpretation Comments MAGNESIUM (BEAKER) (test code = 2.0 mg/dL 1.6-2.6 627) CBC W/PLT COUNT & AUTO [id number] 09:40:39 Test Item Value Reference Range Interpretation Comments WHITE BLOOD CELL COUNT (BEAKER) 4.3 K/ L 3.5-10.5 (test code = 775) RED BLOOD CELL COUNT (BEAKER) 4.24 M/ L 3.93-5.22 (test code = 761) HEMOGLOBIN (BEAKER) (test code = 11.4 GM/DL 11.2-15.7 410) HEMATOCRIT (BEAKER) (test code = 36.3 % 34.1-44.9 411) MEAN CORPUSCULAR VOLUME (BEAKER) 86 fL 79-95 (test code = 753) MEAN CORPUSCULAR HEMOGLOBIN 26.9 pg 25.6-32.2 (BEAKER) (test code = 751) MEAN CORPUSCULAR HEMOGLOBIN CONC 31.4 GM/DL 32.2-35.5 L (BEAKER) (test code = 752) RED CELL DISTRIBUTION WIDTH 15.3 % 11.7-14.4 H (BEAKER) (test code = 412) PLATELET COUNT (BEAKER) (test 183 K/CU MM 150-450 code = 756) MEAN PLATELET VOLUME (BEAKER) 9.7 fL 9.4-12.3 (test code = 754) NEUTROPHILS RELATIVE PERCENT 73 % (BEAKER) (test code = 429) LYMPHOCYTES RELATIVE PERCENT 14 % (BEAKER) (test code = 430) MONOCYTES RELATIVE PERCENT 11 % (BEAKER) (test code = 431) EOSINOPHILS RELATIVE PERCENT 2 % (BEAKER) (test code = 432) BASOPHILS RELATIVE PERCENT 1 % (BEAKER) (test code = 437) NEUTROPHILS ABSOLUTE COUNT 3.12 K/ L 1.56-6.13 (BEAKER) (test code = 670) LYMPHOCYTES ABSOLUTE COUNT 0.58 K/ L 1.18-3.74 L (BEAKER) (test code = 414) MONOCYTES ABSOLUTE COUNT (BEAKER) 0.45 K/ L 0.24-0.36 H (test code = 415) EOSINOPHILS ABSOLUTE COUNT 0.09 K/ L 0.04-0.36 (BEAKER) (test code = 416) BASOPHILS ABSOLUTE COUNT (BEAKER) 0.03 K/ L 0.01-0.08 (test code = 417) IMMATURE GRANULOCYTES-RELATIVE 0.50 % 0.00-1.00 PERCENT (BEAKER) (test code = 2801) CARCINOEMBRYONIC ANTIGEN (CEA)2023-01-13 13:41:54 Test Item Value Reference Range Interpretation Comments CARCINOEMBRYONIC ANTIGEN (BEAKER) 1.7 ng/mL 0.0-5.0 (test code = 685) Clinical Services Specialist ID - ADMINCOMPREHENSIVE METABOLIC [id number] 10:37:02 Test Item Value Reference Range Interpretation Comments TOTAL PROTEIN 7.1 gm/dL 6.0-8.3 (BEAKER) (test code = 770) ALBUMIN (BEAKER) 4.4 g/dL 3.5-5.0 (test code = 1145) ALKALINE 208 U/L 40-150 H PHOSPHATASE (BEAKER) (test code = 346) BILIRUBIN TOTAL 0.4 mg/dL 0.2-1.2 (BEAKER) (test code = 377) SODIUM (BEAKER) 142 meq/L 136-145 (test code = 381) POTASSIUM (BEAKER) 3.8 meq/L 3.5-5.1 (test code = 379) CHLORIDE (BEAKER) 104 meq/L 98-107 (test code = 382) CO2 (BEAKER) (test 30 meq/L 22-29 H code = 355) BLOOD UREA 15 mg/dL 7-21 NITROGEN (BEAKER) (test code = 354) CREATININE 0.77 mg/dL 0.57-1.25 (BEAKER) (test code = 358) GLUCOSE RANDOM 132 mg/dL 70-105 H (BEAKER) (test code = 652) CALCIUM (BEAKER) 9.0 mg/dL 8.4-10.2 (test code = 697) AST (SGOT) 24 U/L 5-34 (BEAKER) (test code = 353) ALT (SGPT) 27 U/L 6-55 (BEAKER) (test code = 347) EGFR (BEAKER) 93 Interpretatio n of eGFR (test code = 1092) mL/min/1.[address] age Description sq m Result G1 Nataliya l or high >=90 G2 Mildly decreased 60-89 G3a Mildl y to moderately 45-5 9 G3b Moderately to s everely 30-44 G4 Severl y decreased 15-29 G5 Kidne y failure <15Reported eGF R is based on the CKD-EPI 2020 equation that d oes not use a race coefficientEsti mated GFR is not as accur ate as Creatinine Roya henley in predicting glom erular filtration rate . Estimated GFR is not appl icable for dialysis patien ts [id number] 10:33:52 Test Item Value Reference Range Interpretation Comments MAGNESIUM (BEAKER) (test code = 1.9 mg/dL 1.6-2.6 627) CBC W/PLT COUNT & AUTO [id number] 10:21:12 Test Item Value Reference Range Interpretation Comments WHITE BLOOD CELL COUNT (BEAKER) 4.5 K/ L 3.5-10.5 (test code = 775) RED BLOOD CELL COUNT (BEAKER) 3.94 M/ L 3.93-5.22 (test code = 761) HEMOGLOBIN (BEAKER) (test code = 10.8 GM/DL 11.2-15.7 L 410) HEMATOCRIT (BEAKER) (test code = 34.9 % 34.1-44.9 411) MEAN CORPUSCULAR VOLUME (BEAKER) 89 fL 79-95 (test code = 753) MEAN CORPUSCULAR HEMOGLOBIN 27.4 pg 25.6-32.2 (BEAKER) (test code = 751) MEAN CORPUSCULAR HEMOGLOBIN CONC 30.9 GM/DL 32.2-35.5 L (BEAKER) (test code = 752) RED CELL DISTRIBUTION WIDTH 15.3 % 11.7-14.4 H (BEAKER) (test code = 412) PLATELET COUNT (BEAKER) (test 196 K/CU MM 150-450 code = 756) MEAN PLATELET VOLUME (BEAKER) 10.0 fL 9.4-12.3 (test code = 754) NEUTROPHILS RELATIVE PERCENT 74 % (BEAKER) (test code = 429) LYMPHOCYTES RELATIVE PERCENT 11 % (BEAKER) (test code = 430) MONOCYTES RELATIVE PERCENT 11 % (BEAKER) (test code = 431) EOSINOPHILS RELATIVE PERCENT 3 % (BEAKER) (test code = 432) BASOPHILS RELATIVE PERCENT 1 % (BEAKER) (test code = 437) NEUTROPHILS ABSOLUTE COUNT 3.32 K/ L 1.56-6.13 (BEAKER) (test code = 670) LYMPHOCYTES ABSOLUTE COUNT 0.49 K/ L 1.18-3.74 L (BEAKER) (test code = 414) MONOCYTES ABSOLUTE COUNT (BEAKER) 0.50 K/ L 0.24-0.36 H (test code = 415) EOSINOPHILS ABSOLUTE COUNT 0.12 K/ L 0.04-0.36 (BEAKER) (test code = 416) BASOPHILS ABSOLUTE COUNT (BEAKER) 0.04 K/ L 0.01-0.08 (test code = 417) IMMATURE GRANULOCYTES-RELATIVE 0.20 % 0.00-1.00 PERCENT (BEAKER) (test code = 2801) CARCINOEMBRYONIC ANTIGEN (CEA)2022-12-30 14:03:08 Test Item Value Reference Range Interpretation Comments CARCINOEMBRYONIC ANTIGEN (BEAKER) 1.9 ng/mL 0.0-5.0 (test code = 685) Clinical Services Specialist ID - ADMINCOMPREHENSIVE METABOLIC [id number] 09:54:02 Test Item Value Reference Range Interpretation Comments TOTAL PROTEIN 7.2 gm/dL 6.0-8.3 (BEAKER) (test code = 770) ALBUMIN (BEAKER) 4.6 g/dL 3.5-5.0 (test code = 1145) ALKALINE 252 U/L 40-150 H PHOSPHATASE (BEAKER) (test code = 346) BILIRUBIN TOTAL 0.3 mg/dL 0.2-1.2 (BEAKER) (test code = 377) SODIUM (BEAKER) 143 meq/L 136-145 (test code = 381) POTASSIUM (BEAKER) 3.5 meq/L 3.5-5.1 (test code = 379) CHLORIDE (BEAKER) 106 meq/L 98-107 (test code = 382) CO2 (BEAKER) (test 26 meq/L 22-29 code = 355) BLOOD UREA 15 mg/dL 7-21 NITROGEN (BEAKER) (test code = 354) CREATININE 0.74 mg/dL 0.57-1.25 (BEAKER) (test code = 358) GLUCOSE RANDOM 104 mg/dL 70-105 (BEAKER) (test code = 652) CALCIUM (BEAKER) 8.7 mg/dL 8.4-10.2 (test code = 697) AST (SGOT) 27 U/L 5-34 (BEAKER) (test code = 353) ALT (SGPT) 21 U/L 6-55 (BEAKER) (test code = 347) EGFR (BEAKER) 97 Interpretatio n of eGFR (test code = 1092) mL/min/1.[address] age Description sq m Result G1 Nataliya l or high >=90 G2 Mildly decreased 60-89 G3a Mildl y to moderately 45-5 9 G3b Moderately to s everely 30-44 G4 Severl y decreased 15-29 G5 Kidney failure <15Reported eGF R is based on the CKD-EPI 202 equation that d oes not use a race coefficientEsti mated GFR is not as accur ate as Creatinine Roya lory in predicting glom erular filtration rate . Estimated GFR is not appl icable for dialysis patien ts [id number] 09:52:32 Test Item Value Reference Range Interpretation Comments MAGNESIUM (BEAKER) (test code = 1.8 mg/dL 1.6-2.6 627) CBC W/PLT COUNT & AUTO [id number] 09:43:49 Test Item Value Reference Range Interpretation Comments WHITE BLOOD CELL COUNT (BEAKER) 7.6 K/ L 3.5-10.5 (test code = 775) RED BLOOD CELL COUNT (BEAKER) 4.08 M/ L 3.93-5.22 (test code = 761) HEMOGLOBIN (BEAKER) (test code = 11.4 GM/DL 11.2-15.7 410) HEMATOCRIT (BEAKER) (test code = 36.6 % 34.1-44.9 411) MEAN CORPUSCULAR VOLUME (BEAKER) 90 fL 79-95 (test code = 753) MEAN CORPUSCULAR HEMOGLOBIN 27.9 pg 25.6-32.2 (BEAKER) (test code = 751) MEAN CORPUSCULAR HEMOGLOBIN CONC 31.1 GM/DL 32.2-35.5 L (BEAKER) (test code = 752) RED CELL DISTRIBUTION WIDTH 15.5 % 11.7-14.4 H (BEAKER) (test code = 412) PLATELET COUNT (BEAKER) (test 177 K/CU MM 150-450 code = 756) MEAN PLATELET VOLUME (BEAKER) 9.6 fL 9.4-12.3 (test code = 754) NEUTROPHILS RELATIVE PERCENT 80 % (BEAKER) (test code = 429) LYMPHOCYTES RELATIVE PERCENT 9 % (BEAKER) (test code = 430) MONOCYTES RELATIVE PERCENT 7 % (BEAKER) (test code = 431) EOSINOPHILS RELATIVE PERCENT 2 % (BEAKER) (test code = 432) BASOPHILS RELATIVE PERCENT 1 % (BEAKER) (test code = 437) NEUTROPHILS ABSOLUTE COUNT 6.08 K/ L 1.56-6.13 (BEAKER) (test code = 670) LYMPHOCYTES ABSOLUTE COUNT 0.72 K/ L 1.18-3.74 L (BEAKER) (test code = 414) MONOCYTES ABSOLUTE COUNT (BEAKER) 0.53 K/ L 0.24-0.36 H (test code = 415) EOSINOPHILS ABSOLUTE COUNT 0.14 K/ L 0.04-0.36 (BEAKER) (test code = 416) BASOPHILS ABSOLUTE COUNT (BEAKER) 0.04 K/ L 0.01-0.08 (test code = 417) IMMATURE GRANULOCYTES-RELATIVE 1.60 % 0.00-1.00 H PERCENT (BEAKER) (test code = 2801) MR ABDOMEN WITH & WITHOUT IV [id number] 10:48:17 [facility] 1970 Sex: F1. MRI abdomen with and without contrast2. Magnetic resonance cholangiopancreatography (MRCP) with 3-Dreconstruction and analysisTECHNIQUE: MRI of the abdomen was performed prior to and following theuneventful administration of intravenous gadolinium contrast accordingto standard protocol, including dynamic imaging for MRCP. Image data wasanalyzed on a dedicated 3-D workstation for the MRCP portion of theexam. Indication: Gastrointestinal cancer, stagingCOMPARISON: MRI abdomen 09/16/2022Findings:Lower Chest:Normal.Hepatobiliary systemLiver morphology: Enlarged right hepatic lobe measuring 24 cm incraniocaudal dimension with smooth surface contour. The left hepaticlobe is atrophic.Steatosis: There is moderate diffuse hepatic steatosis.Varices: None.Spleen: Normal.Ascites: None.Gallbladder: Normal. Focal liver observationsThere is an unchanged appearance of a hypoenhancing mass centered at thesuperior left lobe measuring approximately 5.9 x 6.0 cm.There is slight interval decrease in size of hypointe nse lesion inhepatic segment six measuring 1.1 cm, previously 1.5 cm additionally,the previously seen T2 hyperintensity and peripheral rim enhancement isnot well appreciated on this study. 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 RetroperitoneumPancreas: Normal.Adrenals:Normal.Kidneys: Punctate cyst in the right kidney.Lymph nodes: No lymphadenopathy.Gastrointestinal: Small hiatal hernia. Imaged bowel and mesentery are otherwise normal.Other findings: None.MRCP:Commonbile duct stent is again present extending into the right bileduct. No intrahepatic biliary dilation. No filling defect or strictureis seen in the biliary system.The pancreatic duct is nondilated.IMPRES JOY:Impression:1. Unchanged appearance of a hypoenhancing mass centered at the lefthepatic lobe measuring 6 cm.2. Slight interval decrease in size of hypoenhancing mass in hepaticsegment 6 measuring 1.1 cm with decreased peripheral rim enhancement. 3. Moderate hepatic steatosis.Electronically Signed By: Giulia Montero12/29/2022 10:50 CDTWorkstation Name: [id number] CHEST WITH IV [id number] 15:05:35 [facility] : 1970 Sex: FCT of the chest, with contrastClinical History: Gastrointestinal cancer, stagingTechnique: CT of the chest is performed with intravenous contrastadministration. This exam was performed according to our departmentaldose optimization program which includes automated exposure control,adjustment of the mA and/or kV according to patient's size and/or use ofiterative reconstructive technique.Comparison Film:October 13, 2022, September 16, 2022, May 28, 2022,July 28, 2021, June 09iscussion:Thereis a right-sided Port-A-Cath. Visualized thyroid gland is normal.No supraclavicular, axillary, mediastinal or hilar lymphadenopathy.Heart and pericardium are unremarkable. The distal esophagus remainsthick-walled, and there is a tiny hiatal hernia.There are several 2 to 4 mm pulmonary nodules that arewithoutsignificant interval change compared to September,. However, severalnodules are new comparedto May,. There is no mass orconsolidation, no effusion. Central airways are patent, nobronchiectasis or bronchial wall thickening.Again seen is a hypodense lesion in liver, and biliary stents. Nosuspicious bony lesion.IMPRESSION:Impression:There are several 2 to 4 mm nonspecific pulmonary nodules that areunchanged compared to September,, but some are new compared to May2021. Suggest continued follow- up.Electronically Signed By: Vin Vargas12/24/2022 15:07 CDTWorkstation Name: [id number] CARCINOEMBRYONIC ANTIGEN (CEA)2022-12-16 13:44:48 Test Item Value Reference Range Interpretation Comments CARCINOEMBRYONIC ANTIGEN (BEAKER) 2.0 ng/mL 0.0-5.0 (test code = 685) Clinical Services Specialist ID - EDCOMPREHENSIVE METABOLIC [id number] 11:15:01 Test Item Value Reference Range Interpretation Comments TOTAL PROTEIN 7.0 gm/dL 6.0-8.3 Specimen sligh tly (BEAKER) (test hemolyzed code = 770) ALBUMIN (BEAKER) 4.5 g/dL 3.5-5.0 Specimen sl ightly (test code = 1145) hemolyzed ALKALINE 249 U/L 40-150 H PHOSPHATASE (BEAKER) (test code = 346) BILIRUBIN TOTAL 0.3 mg/dL 0.2-1.2 Specimen sli ghtly (BEAKER) (test hemolyzed code = 377) SODIUM (BEAKER) 139 meq/L 136-145 (test code = 381) POTASSIUM (BEAKER) 3.9 meq/L 3.5-5.1 Specimen slightly (test code = 379) hemolyzed CHLORIDE (BEAKER) 104 meq/L 98-107 (test code = 382) CO2 (BEAKER) (test 25 meq/L 22-29 code = 355) BLOOD UREA 19 mg/dL 7-21 NITROGEN (BEAKER) (test code = 354) CREATININE 0.84 mg/dL 0.57-1.25 Specimen slight ly (BEAKER) (test hemolyzed code = 358) GLUCOSE RANDOM 171 mg/dL 70-105 H (BEAKER) (test code = 652) CALCIUM (BEAKER) 9.0 mg/dL 8.4-10.2 (test code = 697) AST (SGOT) 12 U/L 5-34 Specimen slight ly (BEAKER) (test hemolyzed code = 353) ALT (SGPT) 19 U/L 6-55 Specimen slight ly (BEAKER) (test hemolyzed code = 347) EGFR (BEAKER) 84 Interpretatio n of eGFR (test code = 1092) mL/min/1.[address] age Description sq m Result G1 Nataliya l or high >=90 G2 Mildly decreased 60-89 G3a Mildl y to moderately 45-5 9 G3b Moderately to s everely 30-44 G4 Severl y decreased 15-29 G5 Kidney failure <15Reported eGF R is based on the CKD-EPI 202 equation that d oes not use a race coefficientEsti mated GFR is not as accur ate as Creatinine Roya henley in predicting glom erular filtration rate . Estimated GFR is not appl icable for dialysis patien ts [id number] 11:11:09 Test Item Value Reference Range Interpretation Comments MAGNESIUM (BEAKER) (test code = 2.0 mg/dL 1.6-2.6 627) CBC W/PLT COUNT & AUTO [id number] 10:56:13 Test Item Value Reference Range Interpretation Comments WHITE BLOOD CELL COUNT (BEAKER) 6.8 K/ L 3.5-10.5 (test code = 775) RED BLOOD CELL COUNT (BEAKER) 4.17 M/ L 3.93-5.22 (test code = 761) HEMOGLOBIN (BEAKER) (test code = 11.8 GM/DL 11.2-15.7 410) HEMATOCRIT (BEAKER) (test code = 36.8 % 34.1-44.9 411) MEAN CORPUSCULAR VOLUME (BEAKER) 88 fL 79-95 (test code = 753) MEAN CORPUSCULAR HEMOGLOBIN 28.3 pg 25.6-32.2 (BEAKER) (test code = 751) MEAN CORPUSCULAR HEMOGLOBIN CONC 32.1 GM/DL 32.2-35.5 L (BEAKER) (test code = 752) RED CELL DISTRIBUTION WIDTH 15.8 % 11.7-14.4 H (BEAKER) (test code = 412) PLATELET COUNT (BEAKER) (test 192 K/CU MM 150-450 code = 756) MEAN PLATELET VOLUME (BEAKER) 9.5 fL 9.4-12.3 (test code = 754) NEUTROPHILS RELATIVE PERCENT 78 % (BEAKER) (test code = 429) LYMPHOCYTES RELATIVE PERCENT 9 % (BEAKER) (test code = 430) MONOCYTES RELATIVE PERCENT 8 % (BEAKER) (test code = 431) EOSINOPHILS RELATIVE PERCENT 2 % (BEAKER) (test code = 432) BASOPHILS RELATIVE PERCENT 1 % (BEAKER) (test code = 437) NEUTROPHILS ABSOLUTE COUNT 5.34 K/ L 1.56-6.13 (BEAKER) (test code = 670) LYMPHOCYTES ABSOLUTE COUNT 0.63 K/ L 1.18-3.74 L (BEAKER) (test code = 414) MONOCYTES ABSOLUTE COUNT (BEAKER) 0.57 K/ L 0.24-0.36 H (test code = 415) EOSINOPHILS ABSOLUTE COUNT 0.12 K/ L 0.04-0.36 (BEAKER) (test code = 416) BASOPHILS ABSOLUTE COUNT (BEAKER) 0.04 K/ L 0.01-0.08 (test code = 417) IMMATURE GRANULOCYTES-RELATIVE 1.80 % 0.00-1.00 H PERCENT (BEAKER) (test code = 2801) CARCINOEMBRYONIC ANTIGEN (CEA)2022-12-02 14:52:06 Test Item Value Reference Range Interpretation Comments CARCINOEMBRYONIC ANTIGEN (BEAKER) 2.0 ng/mL 0.0-5.0 (test code = 685) Clinical Services Specialist ID - ADMIN(MANUAL DIFFERENTIAL)2022-12-02 12:27:01 Test Item Value Reference Range Interpretation Comments NEUTROPHILS - REL (DIFF) (BEAKER) 88 % (test code = 1359) LYMPHOCYTES - REL (DIFF) (BEAKER) 4 % (test code = 1360) MONOCYTES - REL (DIFF) (BEAKER) 5 % (test code = 1361) MYELOCYTES-REL (DIFF) (BEAKER) 2 % 0-0 H (test code = 1594) ATYPICAL LYMPHOCYTE - REL (DIFF) 1 % 0-0 H (BEAKER) (test code = 260) NEUTROPHILS - ABS (DIFF) (BEAKER) 8.18 K/ L 1.80-8.00 H (test code = 1365) LYMPHOCYTES - ABS (DIFF) (BEAKER) 0.37 K/ L 1.48-4.50 L (test code = 1366) MONOCYTES - ABS (DIFF) (BEAKER) 0.47 K/ L 0.00-1.30 (test code = 1367) ATYPICAL LYMPHOCYTES - ABS (DIFF) 0.09 K/ L 0.00-0.00 H (BEAKER) (test code = 263) MYELOCYTES-ABS (DIFF) (BEAKER) 0.19 K/ L 0.00-0.00 H (test code = 1593) TOTAL COUNTED (BEAKER) (test code = 100 1351) WBC MORPHOLOGY (BEAKER) (test code Normal = 487) PLT MORPHOLOGY (BEAKER) (test code Normal = 486) RBC MORPHOLOGY (BEAKER) (test code Normal = 762) COMPREHENSIVE METABOLIC [id number] 11:50:08 Test Item Value Reference Range Interpretation Comments TOTAL PROTEIN 7.3 gm/dL 6.0-8.3 (BEAKER) (test code = 770) ALBUMIN (BEAKER) 4.7 g/dL 3.5-5.0 (test code = 1145) ALKALINE 266 U/L 40-150 H PHOSPHATASE (BEAKER) (test code = 346) BILIRUBIN TOTAL 0.3 mg/dL 0.2-1.2 (BEAKER) (test code = 377) SODIUM (BEAKER) 140 meq/L 136-145 (test code = 381) POTASSIUM (BEAKER) 4.4 meq/L 3.5-5.1 (test code = 379) CHLORIDE (BEAKER) 105 meq/L 98-107 (test code = 382) CO2 (BEAKER) (test 28 meq/L 22-29 code = 355) BLOOD UREA 15 mg/dL 7-21 NITROGEN (BEAKER) (test code = 354) CREATININE 0.78 mg/dL 0.57-1.25 (BEAKER) (test code = 358) GLUCOSE RANDOM 119 mg/dL 70-105 H (BEAKER) (test code = 652) CALCIUM (BEAKER) 9.3 mg/dL 8.4-10.2 (test code = 697) AST (SGOT) 27 U/L 5-34 (BEAKER) (test code = 353) ALT (SGPT) 43 U/L 6-55 (BEAKER) (test code = 347) EGFR (BEAKER) 91 Interpretatio n of eGFR (test code = 1092) mL/min/1.[address] age Description sq m Result G1 Nataliya l or high >=90 G2 Mildly decreased 60-89 G3a Mildl y to moderately 45-5 9 G3b Moderately to s everely 30-44 G4 Severl y decreased 15-29 G5 Kidney failure <15Reported eGF R is based on the CKD-EPI 2020 equation that d oes not use a race coefficientEsti mated GFR is not as accur ate as Creatinine Roya henley in predicting glom erular filtration rate . Estimated GFR is not appl icable for dialysis patien ts [id number] 11:48:19 Test Item Value Reference Range Interpretation Comments MAGNESIUM (BEAKER) (test code = 1.9 mg/dL 1.6-2.6 627) CBC W/PLT COUNT & AUTO [id number] 11:42:56 Test Item Value Reference Range Interpretation Comments WHITE BLOOD CELL COUNT (BEAKER) 9.3 K/ L 3.5-10.5 (test code = 775) RED BLOOD CELL COUNT (BEAKER) 4.34 M/ L 3.93-5.22 (test code = 761) HEMOGLOBIN (BEAKER) (test code = 12.2 GM/DL 11.2-15.7 410) HEMATOCRIT (BEAKER) (test code = 39.3 % 34.1-44.9 411) MEAN CORPUSCULAR VOLUME (BEAKER) 91 fL 79-95 (test code = 753) MEAN CORPUSCULAR HEMOGLOBIN 28.1 pg 25.6-32.2 (BEAKER) (test code = 751) MEAN CORPUSCULAR HEMOGLOBIN CONC 31.0 GM/DL 32.2-35.5 L (BEAKER) (test code = 752) RED CELL DISTRIBUTION WIDTH 16.3 % 11.7-14.4 H (BEAKER) (test code = 412) PLATELET COUNT (BEAKER) (test 174 K/CU MM 150-450 code = 756) MEAN PLATELET VOLUME (BEAKER) 9.5 fL 9.4-12.3 (test code = 754) CARCINOEMBRYONIC ANTIGEN (CEA)2022-11-18 12:17:46 Test Item Value Reference Range Interpretation Comments CARCINOEMBRYONIC ANTIGEN (BEAKER) 2.0 ng/mL 0.0-5.0 (test code = 685) Clinical Services Specialist ID - E.D.(MANUAL DIFFERENTIAL)2022-11-18 09:27:23 Test Item Value Reference Range Interpretation Comments NEUTROPHILS - REL (DIFF) (BEAKER) 83 % (test code = 1359) LYMPHOCYTES - REL (DIFF) (BEAKER) 5 % (test code = 1360) MONOCYTES - REL (DIFF) (BEAKER) 11 % (test code = 1361) EOSINOPHILS - REL (DIFF) (BEAKER) 1 % (test code = 1362) NEUTROPHILS - ABS (DIFF) (BEAKER) 6.56 K/ L 1.80-8.00 (test code = 1365) LYMPHOCYTES - ABS (DIFF) (BEAKER) 0.40 K/ L 1.48-4.50 L (test code = 1366) MONOCYTES - ABS (DIFF) (BEAKER) 0.87 K/ L 0.00-1.30 (test code = 1367) EOSINOPHILS - ABS (DIFF) (BEAKER) 0.08 K/ L 0.00-0.50 (test code = 1368) TOTAL COUNTED (BEAKER) (test code = 100 1351) WBC MORPHOLOGY (BEAKER) (test code Normal = 487) PLT MORPHOLOGY (BEAKER) (test code Normal = 486) RBC MORPHOLOGY (BEAKER) (test code Normal = 762) CBC W/PLT COUNT & AUTO [id number] 09:16:51 Test Item Value Reference Range Interpretation Comments WHITE BLOOD CELL COUNT (BEAKER) 7.9 K/ L 3.5-10.5 (test code = 775) RED BLOOD CELL COUNT (BEAKER) 4.50 M/ L 3.93-5.22 (test code = 761) HEMOGLOBIN (BEAKER) (test code = 12.7 GM/DL 11.2-15.7 410) HEMATOCRIT (BEAKER) (test code = 40.1 % 34.1-44.9 411) MEAN CORPUSCULAR VOLUME (BEAKER) 89 fL 79-95 (test code = 753) MEAN CORPUSCULAR HEMOGLOBIN 28.2 pg 25.6-32.2 (BEAKER) (test code = 751) MEAN CORPUSCULAR HEMOGLOBIN CONC 31.7 GM/DL 32.2-35.5 L (BEAKER) (test code = 752) RED CELL DISTRIBUTION WIDTH 15.5 % 11.7-14.4 H (BEAKER) (test code = 412) PLATELET COUNT (BEAKER) (test 209 K/CU MM 150-450 code = 756) MEAN PLATELET VOLUME (BEAKER) 9.4 fL 9.4-12.3 (test code = 754) [id number] 09:00:22 Test Item Value Reference Range Interpretation Comments MAGNESIUM (BEAKER) (test code = 1.9 mg/dL 1.6-2.6 627) COMPREHENSIVE METABOLIC [id number] 09:00:17 Test Item Value Reference Range Interpretation Comments TOTAL PROTEIN 7.8 gm/dL 6.0-8.3 (BEAKER) (test code = 770) ALBUMIN (BEAKER) 4.9 g/dL 3.5-5.0 (test code = 1145) ALKALINE 254 U/L 40-150 H PHOSPHATASE (BEAKER) (test code = 346) BILIRUBIN TOTAL 0.3 mg/dL 0.2-1.2 (BEAKER) (test code = 377) SODIUM (BEAKER) 143 meq/L 136-145 (test code = 381) POTASSIUM (BEAKER) 4.1 meq/L 3.5-5.1 (test code = 379) CHLORIDE (BEAKER) 106 meq/L 98-107 (test code = 382) CO2 (BEAKER) (test 29 meq/L 22-29 code = 355) BLOOD UREA 14 mg/dL 7-21 NITROGEN (BEAKER) (test code = 354) CREATININE 0.75 mg/dL 0.57-1.25 (BEAKER) (test code = 358) GLUCOSE RANDOM 97 mg/dL 70-105 (BEAKER) (test code = 652) CALCIUM (BEAKER) 9.2 mg/dL 8.4-10.2 (test code = 697) AST (SGOT) 24 U/L 5-34 (BEAKER) (test code = 353) ALT (SGPT) 20 U/L 6-55 (BEAKER) (test code = 347) EGFR (BEAKER) 96 Interpretatio n of eGFR (test code = 1092) mL/min/1.[address] age Description sq m Result G1 Nataliya l or high >=90 G2 Mildly decreased 60-89 G3a Mildl y to moderately 45-5 9 G3b Moderately to s everely 30-44 G4 Severl y decreased 15-29 G5 Kidney failure <15Reported eGF R is based on the CKD-EPI 2020 equation that d oes not use a race coefficientEsti mated GFR is not as accur ate as Creatinine Roya lory in predicting glom erular filtration rate . Estimated GFR is not appl icable for dialysis patien ts CARCINOEMBRYONIC ANTIGEN (CEA)2022-11-03 14:05:53 Test Item Value Reference Range Interpretation Comments CARCINOEMBRYONIC ANTIGEN (BEAKER) 1.5 ng/mL 0.0-5.0 (test code = 685) Clinical Services Specialist ID - [id number](MANUAL DIFFERENTIAL)2022-11-03 11:41:53 Test Item Value Reference Range Interpretation Comments NEUTROPHILS - REL (DIFF) (BEAKER) 77 % (test code = 1359) LYMPHOCYTES - REL (DIFF) (BEAKER) 10 % (test code = 1360) MONOCYTES - REL (DIFF) (BEAKER) 9 % (test code = 1361) BANDS - REL (DIFF) (BEAKER) (test 4 % 0-10 code = 1348) NEUTROPHILS - ABS (DIFF) (BEAKER) 5.62 K/ L 1.80-8.00 (test code = 1365) LYMPHOCYTES - ABS (DIFF) (BEAKER) 0.73 K/ L 1.48-4.50 L (test code = 1366) MONOCYTES - ABS (DIFF) (BEAKER) 0.66 K/ L 0.00-1.30 (test code = 1367) BANDS-ABS (DIFF) (BEAKER) (test 0.3 K/ L 0.0-0.8 code = 1349) TOTAL COUNTED (BEAKER) (test code = 100 1351) BANDS + SEGMENTED NEUTROPHILS 5.91 (BEAKER) (test code = 1352) WBC MORPHOLOGY (BEAKER) (test code Normal = 487) PLT MORPHOLOGY (BEAKER) (test code Normal = 486) RBC MORPHOLOGY (BEAKER) (test code Normal = 762) COMPREHENSIVE METABOLIC [id number] 10:54:29 Test Item Value Reference Range Interpretation Comments TOTAL PROTEIN 7.2 gm/dL 6.0-8.3 (BEAKER) (test code = 770) ALBUMIN (BEAKER) 4.6 g/dL 3.5-5.0 (test code = 1145) ALKALINE 218 U/L 40-150 H PHOSPHATASE (BEAKER) (test code = 346) BILIRUBIN TOTAL 0.4 mg/dL 0.2-1.2 (BEAKER) (test code = 377) SODIUM (BEAKER) 137 meq/L 136-145 (test code = 381) POTASSIUM (BEAKER) 3.5 meq/L 3.5-5.1 (test code = 379) CHLORIDE (BEAKER) 102 meq/L 98-107 (test code = 382) CO2 (BEAKER) (test 27 meq/L 22-29 code = 355) BLOOD UREA 19 mg/dL 7-21 NITROGEN (BEAKER) (test code = 354) CREATININE 0.90 mg/dL 0.57-1.25 (BEAKER) (test code = 358) GLUCOSE RANDOM 152 mg/dL 70-105 H (BEAKER) (test code = 652) CALCIUM (BEAKER) 8.8 mg/dL 8.4-10.2 (test code = 697) AST (SGOT) 29 U/L 5-34 (BEAKER) (test code = 353) ALT (SGPT) 30 U/L 6-55 (BEAKER) (test code = 347) EGFR (BEAKER) 77 Interpretatio n of eGFR (test code = 1092) mL/min/1.[address] age Description sq m Result G1 Nataliya l or high >=90 G2 Mildly decreased 60-89 G3a Mildl y to moderately 45-5 9 G3b Moderately to s everely 30-44 G4 Severl y decreased 15-29 G5 Kidney failure <15Reported eGF R is based on the CKD-EPI 2020 equation that d oes not use a race coefficientEsti mated GFR is not as accur ate as Creatinine Roya henley in predicting glom erular filtration rate . Estimated GFR is not appl icable for dialysis patien ts [id number] 10:53:56 Test Item Value Reference Range Interpretation Comments MAGNESIUM (BEAKER) (test code = 1.9 mg/dL 1.6-2.6 627) CBC W/PLT COUNT & AUTO [id number] 10:43:21 Test Item Value Reference Range Interpretation Comments WHITE BLOOD CELL COUNT (BEAKER) 7.3 K/ L 3.5-10.5 (test code = 775) RED BLOOD CELL COUNT (BEAKER) 4.01 M/ L 3.93-5.22 (test code = 761) HEMOGLOBIN (BEAKER) (test code = 11.7 GM/DL 11.2-15.7 410) HEMATOCRIT (BEAKER) (test code = 36.1 % 34.1-44.9 411) MEAN CORPUSCULAR VOLUME (BEAKER) 90 fL 79-95 (test code = 753) MEAN CORPUSCULAR HEMOGLOBIN 29.2 pg 25.6-32.2 (BEAKER) (test code = 751) MEAN CORPUSCULAR HEMOGLOBIN CONC 32.4 GM/DL 32.2-35.5 (BEAKER) (test code = 752) RED CELL DISTRIBUTION WIDTH 15.6 % 11.7-14.4 H (BEAKER) (test code = 412) PLATELET COUNT (BEAKER) (test 159 K/CU MM 150-450 code = 756) MEAN PLATELET VOLUME (BEAKER) 9.8 fL 9.4-12.3 (test code = 754) CT, CHEST WITH IV CONTRAST- PE TEST [id number] 15:56:00Unlisted Reason for Exam - Click Yes and Enter Reason Below->No [facility] CENTERName: RAQUEL PINK : 1970 Sex: FFINAL REPORT TECHNIQUE: CT scan of the chest WITH intravenous contrast. Dose modulation, iterative reconstruction, and/or weight-based adjustment of the mA/kV was utilized to reduce the radiation dose to as low as reasonably achievable. Coronal and sagittal reconstructions were provided. MIP images were provided to better assess the vasculature. INDICATION: PE suspected, high prob. COMPARISON: Chest CTs dating back to 06/09/2021 FINDINGS: LINES/TUBES: A right IJ chest port catheter has its tip in the lower SVC. PULMONARY ARTERIES: Proximal to the bifurcation of the main pulmonaryartery, the main pulmonary artery is 2.9 cm in diameter. No filling defects within the pulmonary arteries to suggest pulmonary embolus. LUNGS AND AIRWAYS: A right lower lobe nodule on axial image 57 measures 0.4 cm, previously 0.3 cm. A right lower lobe pulmonary nodule axial image 67 measures 0.3 cm,unchanged. A right pulmonary nodule measures 0.2 cm on axial image 58, unchanged. A calcified granuloma in the right lower lobe is punctate. A right upper lobe pulmonary nodule on axial image 48 measures 0.2 cm, new compared to 06/09/2021. A left lower lobe pulmonary nodule on axial image 87 measures 0.3 cm and is unchanged. PLEURA: The pleural spaces are clear. HEART AND MEDIASTINUM: The visualized thyroid gland is normal. No significant mediastinal, hilar, or axillary lymphadenopathy. The heart and pericardium are within normal limits. The lower esophagus/gastroesophageal junction appears thickened. SOFT TISSUES AND BONES: Unremarkable. UPPER ABDOMEN: Partially visualized metallic and plastic common right hepatic duct stents. The hepatic mass was better visualized the prior CT, but it measures approximately 7.5 x 8.9 cm, previously 6 x 5.5 cm. IMPRESSION: 1.No pulmonary embolism 2.No acute intrathoracic abnormality 3.The thickening of the gastroesophageal junction/lower esophagus is nonspecific and could be due to esophagitis. 4.The hepatic mass is difficult to visualize on today's CT but may have increased in size. 5.A right lower lobe pulmonary nodule has increased in size and measures 0.4 cm. In addition, a right upper lobe pulmonary nodule which measures 0.2 cm is new. A follow-up chest CT is recommended in one year to document stability and exclude an aggressive neoplasm. Signed: Geoff Fitzgerald MDReport Verified Date/Time: 10/13/2022 15:56:03 Reading Location: [facility] C013X Ortho Consult Reading Room (CELLAVISION MANUAL DIFF)2022-10-13 14:16:48 Test Item Value Reference Range Interpretation Comments NEUTROPHILS - REL 76 % (CELLAVISION)(BEAKER) (test code = 2816) LYMPHOCYTES - REL 3 % (CELLAVISION)(BEAKER) (test code = 2817) MONOCYTES - REL 9 % (CELLAVISION)(BEAKER) (test code = 2818) BANDS - REL (CELLAVISION)(BEAKER) 12 % 0-10 H (test code = 2826) NEUTROPHILS - ABS 4.86 K/ul 1.56-6.13 (CELLAVISION)(BEAKER) (test code = 2830) LYMPHOCYTES - ABS 0.19 K/ul 1.18-3.74 L (CELLAVISION)(BEAKER) (test code = 2831) MONOCYTES - ABS 0.58 K/uL 0.24-0.36 H (CELLAVISION)(BEAKER) (test code = 2832) BANDS - ABS (CELLAVISION)(BEAKER) 0.77 K/uL 0.00-0.80 (test code = 2840) TOTAL COUNTED (BEAKER) (test code = 100 1351) PLT MORPHOLOGY (BEAKER) (test code Normal = 486) TOXIC GRANULATION (BEAKER) (test Present code = 771) POIKILOCYTES (BEAKER) (test code = 1+ few 966) OVALOCYTES (BEAKER) (test code = 1+ few 477) PLATELET CONCENTRATION Decreased (CELLAVISION)(BEAKER) (test code = 1848) Clinical Services Specialist ID - [id number] W/PLT COUNT & AUTO [id number] 14:16:47 Test Item Value Reference Range Interpretation Comments WHITE BLOOD CELL COUNT (BEAKER) 6.4 K/ L 3.5-10.5 (test code = 775) RED BLOOD CELL COUNT (BEAKER) 3.89 M/ L 3.93-5.22 L (test code = 761) HEMOGLOBIN (BEAKER) (test code = 11.2 GM/DL 11.2-15.7 410) HEMATOCRIT (BEAKER) (test code = 35.2 % 34.1-44.9 411) MEAN CORPUSCULAR VOLUME (BEAKER) 91 fL 79-95 (test code = 753) MEAN CORPUSCULAR HEMOGLOBIN 28.8 pg 25.6-32.2 (BEAKER) (test code = 751) MEAN CORPUSCULAR HEMOGLOBIN CONC 31.8 GM/DL 32.2-35.5 L (BEAKER) (test code = 752) RED CELL DISTRIBUTION WIDTH 15.4 % 11.7-14.4 H (BEAKER) (test code = 412) PLATELET COUNT (BEAKER) (test code 69 K/CU MM 150-450 L = 756) MEAN PLATELET VOLUME (BEAKER) 10.8 fL 9.4-12.3 (test code = 754) NUCLEATED RED BLOOD CELLS (BEAKER) 0 /100 WBC 0-0 (test code = 413) B-TYPE NATRIURETIC FACTOR (BNP)2022-10-13 13:00:08 Test Item Value Reference Range Interpretation Comments B-TYPE NATRIURETIC PEPTIDE (BEAKER) 15 pg/mL 0-100 (test code = 700) Clinical Services Specialist ID - SOLEDADIGH SENSITIVITY TROPONIN [id number] 12:59:52 Test Item Value Reference Range Interpretation Comments HIGH SENSITIVITY TROPONIN I (test < pg/ml <=17 code = 1214390) Clinical Services Specialist ID - Cinda TUMBLING INSTRUCTOR STAT High Sensitivity Troponin-I results should be used in conjunction with other diagnostic information such as ECG, clinical observations and information, and patientsymptoms to aid in the diagnosis of MN. COMPREHENSIVE METABOLIC [id number] 12:54:05 Test Item Value Reference Range Interpretation Comments TOTAL PROTEIN 7.2 gm/dL 6.0-8.3 (BEAKER) (test code = 770) ALBUMIN (BEAKER) 4.1 g/dL 3.5-5.0 (test code = 1145) ALKALINE 210 U/L 40-150 H PHOSPHATASE (BEAKER) (test code = 346) BILIRUBIN TOTAL 0.3 mg/dL 0.2-1.2 (BEAKER) (test code = 377) SODIUM (BEAKER) 141 meq/L 136-145 (test code = 381) POTASSIUM (BEAKER) 3.3 meq/L 3.5-5.1 L (test code = 379) CHLORIDE (BEAKER) 106 meq/L 98-107 (test code = 382) CO2 (BEAKER) (test 25 meq/L 22-29 code = 355) BLOOD UREA 9 mg/dL 7-21 NITROGEN (BEAKER) (test code = 354) CREATININE 0.69 mg/dL 0.57-1.25 (BEAKER) (test code = 358) GLUCOSE RANDOM 108 mg/dL 70-105 H (BEAKER) (test code = 652) CALCIUM (BEAKER) 9.5 mg/dL 8.4-10.2 (test code = 697) AST (SGOT) 20 U/L 5-34 (BEAKER) (test code = 353) ALT (SGPT) 16 U/L 6-55 (BEAKER) (test code = 347) EGFR (BEAKER) 104 Interpretatio n of eGFR (test code = 1092) mL/min/1.[address] age Description sq m Result G1 Norm al or high >=90 G2 Mildly decreased 60-89 G3a Mildl y to moderately 45-5 9 G3b Moderately to s everely 30-44 G4 Severl y decreased 15-29 G5 Kidney failure <15Reported eGF R is based on the CKD-EPI 2021 equation that d oes not use a race coefficientEsti mated GFR is not as accur ate as Creatinine Roya henley in predicting glom erular filtration rate . Estimated GFR is not appl icable for dialysis patien ts Clinical Services Specialist ID - [id number] 12:54:05 Test Item Value Reference Range Interpretation Comments MAGNESIUM (BEAKER) (test code = 1.7 mg/dL 1.6-2.6 627) Clinical Services Specialist ID - [id number] 12:40:53 Test Item Value Reference Range Interpretation Comments D-DIMER QUANTITATIVE (BEAKER) 0.66 MG/L FEU <0.50 H (test code = 671) Intended Use: The D-Dimer Assay can be used to aid in the diagnosis of Deep Vein Thrombosis (DVT) and Pulmonary Embolism Disease (PED).In patients with low pre- test probability, various studies concerning STA Liatest D-dimer test have reported that with a cutoff value of 0.50 MG/L FEU, the Negative Predictive Value (NPV) regarding the exclusion of thrombosis is within 95-100% range. [id number] 12:38:54 Test Item Value Reference Range Interpretation Comments PROTIME (BEAKER) (test code = 13.3 seconds 11.9-14.2 759) INR (BEAKER) (test code = 370) 1.03 <=5.90 PARTIAL THROMBOPLASTIN TIME 28.9 seconds 22.5-36.0 (BEAKER) (test code = 760) RECOMMENDED COUMADIN/WARFARIN INR THERAPY RANGESSTANDARD DOSE: 2.0 - 3.0 Includes: PROPHYLAXIS for venous thrombosis, systemic embolization; TREATMENT for venous thrombosis and/or pulmonary embolus.HIGH RISK: Target INR is 2.5-3.5 for patients with mechanical heart valves.RAD, CHEST, 1 VIEW, NON [id number] 12:33:00Reason for exam:->SHORTNESS OF BREATHReason for exam:->ABDOMINAL PAINShould this be performed at the bedside?->Yes [facility] CENTERName: RAQUEL PINK ZAVALETA : 1970 Sex: FFINAL REPORT CLINICAL HISTORY: SHORTNESS OF BREATHABDOMINAL PAIN TECHNIQUE: 1 view of the chest. COMPARISON: 06/23/2021 IMPRESSION: New right chest wall port terminating just above thecavoatrial junction. There are no infiltrates or effusions. No significant cardiomegaly. Elevation of the right hemidiaphragm is again seen. Signed: Kimmie Luu MDReport Verified Date/Time: 10/13/2022 12:33:34 Reading Location: [address] Reading Room MR, ABDOMEN, [id number] 17:05:00In 1 weekRelease to patient->ImmediateWhich [facility] / [facility] radiology location is preferred?->[employer] ID = [id number]; Insurance Company Name = AEMaameNA; Insurance Company Phone Nu mber = ; Policy Number = [id number] 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 Contrast is administered to evaluate neoplasm and vasculature. Comparison: MRI dated May 28, 2022, and January 06, 2022 Discussion: Right hepatic lobe is enlarged and measures 23 cm sagittally. Left lobe is atrophied. A lesion in the left lobe and anterior right lobe measures 6.4 x 5.5 x 5.0 cm, stable in size. It is T2 hypointense and demonstrates reticular internal enhancement as well as rim enhancement. It occlusive the left portal vein, and causes mild upstream ductal dilatation, as before.In segment 6, a mildly T2 hyperintense, and T1 hypointense lesion is not significantly changed, measuring approximately 1.5 cm, demonstrating rim enhancement in the arterial phase and gradual central filling. Main portal vein measures 14 mmin diameter. A CBD stent is present, extends into the right bile duct. Gallbladder appears normal. Spleen is mildly enlarged, measuring 13.5 cm axially. The pancreas, adrenal glands are normal. Kidneysdemonstrate no mass, or hydronephrosis. There is a small hiatal hernia. No bowel obstruction. No asci leeanna, or adenopathy. No suspicious bony lesion. Impression: No significant interval change of a hypoenhancing mass centered in the left hepatic lobe mass, and a 1.5 cm lesion in segment 6. Signed: Vin Vargas Verified Date/Time: 09/19/2022 17:05:18 CT, CHEST, WITH [id number] 15:17:00In 1 weekRelease to patient- >ImmediateWhich [facility] / [facility] / [facility] radiology location is preferred?- >[employer] ID = [id number]; Insurance Company Name = [employer]ET[employer]; Insurance Company Phone Number = ; Policy Number = [id number] [facility] CENTERName: RAQUEL PINK : 1970 Sex: FFINAL REPORT CT of the Chest dated 09/16/2022 COMPARISON: May 28, 2022 CLINICAL INFORMATION: C22.1\\S\\Intrahepatic bile duct carcinoma Comment: Axial images of the chest were obtained from thoracic inlet to the upper abdomen with intravenous contrast. This exam was performed according to our departmental dose-optimization program, which includes automated exposure control, adjustment of the mA and/or kV according to patient size and/or use of interactive reconstruction technique. Both thyroid lobes are normal in appearance. Heart is normal in size. Great vessels are unremarkable. A 7 mm lymph node is seen in the right cardiophrenic sulcus. No adenopathy in the mediastinum or perihilar region. Trachea and mainstem bronchi are patent. Small hiatal hernia is seen. Both lungs areclear. No nodular, mass lesion or airspace disease is noted. No interstitial disease or bronchiectasis is present. No pleural effusion or pleural based mass is seen. Visualized upper abdomen demonstrates a 6 x 5.5 cm hypodense mass in the segment 2/4 A of the liver. Impression: 1. Unremarkable CT examination of the chest.2. Stable hypodense hepatic mass.3. Small hiatal hernia. Signed: Armando Peacock MDReport Verified Date/Time: 09/16/2022 15:17:34 Reading Location: [address] Body Reading Room M-[id number] 08:24:44 Test Item Value Reference Range Interpretation Comments POC-Creatinine 0.8 mg/dL 0.6-1.3 : TESTED AT [facility] (test [facility] [facility] [address] [place] [address]: Clinical Services Specialist/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 ID = [id number] for Jesus Gonzalez POC-EGFR (test 89 mL/min/1.73M2 Interpretat ion of eGFR code = 92344-3) Values Stage Description Result G1 Nataliya l or high >=90 G2 Mildly decreased 60-89 G3a Mildl y to moderately 45-5 9 G3b Moderately to s jolie 30-44 G4 Severely dec reased 15-29 G5 Kidney Failu re <15Reported eGF R is based on the CKD-EPI 2020 equation that d oes not use a race coeffici ent Estimated GFR i s not as accurate as Cre atinine Clearance in pr edicting glomerular filt ration rate. Estimated GFR i s not applicable for dialysis patients [facility][id number] 08:24:44 Test Item Value Reference Range Interpretation Comments POC-Creatinine 0.8 mg/dL 0.6-1.3 : TESTED AT [facility] (test code = [address], [place] [address]) [place] [address]: Clinical Services Specialist/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 ID = [id number] for Jesus Gonzalez POC-EGFR (test 89 mL/min/1.73M2 Interpretat ion of eGFR code = 99790-2) Values Stage Description Result G1 Nataliya l [...] i s not applicable for dialysis patients [facility] CenterLvetgdxbiq5862-49-31 08:24:44 Test Item Value Reference Range Interpretation Comments POC-Creatinine 0.8 mg/dL 0.6-1.3 : TESTED AT [facility] (test code = [address], [place] [address]) [place] [address]: Clinical Services Specialist/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 ID = [id number] for Jesus Gonzalez POC-EGFR (test 89 mL/min/1.73M2 Interpretat ion of eGFR code = 41099-4) Values Stage Description Result G1 Nataliya l [...] i s not applicable for dialysis patients [facility] CenterAdxnmjypbt7044-40-24 08:24:44 Test Item Value Reference Range Interpretation Comments POC-Creatinine 0.8 mg/dL 0.6-1.3 : TESTED AT [facility] (test code = [address] [place] [address]3) [place] [address]: Clinical Services Specialist/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 ID = [id number] for Jesus Gonzalez POC-EGFR (test 89 mL/min/1.73M2 Interpretat ion of eGFR code = 17941-3) Values Stag e Description Result G1 Nataliya l or high [...] i s not applicable for dialysis patients [facility]-Aismujjmkg7762-35-66 08:24:44 Test Item Value Reference Range Interpretation Comments POC-Creatinine 0.8 mg/dL 0.6-1.3 : TESTED AT [facility] (test code = [address] [place] [address]4) [place] [address]: Clinical Services Specialist/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 ID = [id number] for Jesus Gonzalez POC-EGFR (test 89 mL/min/1.73M2 Interpretat ion of eGFR code = 99190-4) Values Stage Description Result G1 Nataliya l [...] i s not applicable for dialysis patients [facility]-Vvyakfmudf9438-67-97 08:24:44 Test Item Value Reference Range Interpretation Comments POC-Creatinine 0.8 mg/dL 0.6-1.3 : TESTED AT [facility] (test code = [address] [place] [address]5) [place] [address]: Clinical Services Specialist/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 ID = [id number] for Jesus Gonzalez POC-EGFR (test 89 mL/min/1.73M2 Interpretat ion of eGFR code = 47245-1) Values Stage Description Result G1 Nataliya l [...] i s not applicable for dialysis patients [facility]-Odzlkauvog5723-26-93 08:24:44 Test Item Value Reference Range Interpretation Comments POC-Creatinine 0.8 mg/dL 0.6-1.3 : TESTED AT [facility] (test code = [address] [place] [address]3) [place] [address]: Clinical Services Specialist/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 ID = [id number] for Yohan Gonzalezio POC-EGFR (test 89 mL/min/1.73M2 Interpretat ion of eGFR code = 42686-2) Values Stage Description Result G1 Nataliya l [...] i s not applicable for dialysis patients [facility] CenterZcshybeypc5067-52-58 08:24:44 Test Item Value Reference Range Interpretation Comments POC-Creatinine 0.8 mg/dL 0.6-1.3 : TESTED AT [facility] (test code = [address] [place] [address]5) [place] [address]: Clinical Services Specialist/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 ID = [id number] for Jesus Gonzalez POC-EGFR (test 89 mL/min/1.73M2 Interpretat ion of eGFR code = 13683-2) Values Stage Description Result G1 Nataliya l or high >=90 G2 Mildly decreased 60-89 G3a Mildl y to moderately 45-5 9 G3b Moderately to s jolie 30-44 G4 Severely de creased 15-29 G5 Kidney Failure <15Reported eGF R is based on the CKD-EPI 2021 equation that d oes not use a race coeffici ent Estimated GFR i s not as accurate as Cre atinine Clearance in pr edicting glomerular filt ration rate. Estimated GFR i s not applicable for dialysis patients [facility] CenterYaxmmxauof7383-53-25 08:24:44 Test Item Value Reference Range Interpretation Comments POC-Creatinine 0.8 mg/dL 0.6-1.3 : TESTED AT [facility] (test code = [address] [place] [address]5) [place] [address]: Clinical Services Specialist/Techni grisel ID = [id number] for Jesus Gonzalez POC-EGFR (test 89 mL/min/1.73M2 Interpretat ion of eGFR code = 05527-1) Values Stage Description Result G1 Nataliya l [...] i s not applicable for dialysis patients [facility] CenterArcxauzbbu7411-15-07 08:24:44 Test Item Value Reference Range Interpretation Comments POC-Creatinine 0.8 mg/dL 0.6-1.3 : TESTED AT [facility] (test code = [address] [place] [address]1) [place] [address]: Clinical Services Specialist/Techni grisel ID = [id number] for Jesus Gonzalez POC-EGFR (test 89 mL/min/1.73M2 Interpretat ion of eGFR code = 98831-5) Values Stage Description Result G1 Nataliya l [...] i s not applicable for dialysis patients [facility]-Yqsdbukzuk3075-92-03 08:24:44 Test Item Value Reference Range Interpretation Comments POC-Creatinine 0.8 mg/dL 0.6-1.3 : TESTED AT [facility] (test code = [address] [place] [address]1) [place] [address]: Clinical Services Specialist/Techni grisel ID = [id number] for Jesus Gonzalez POC-EGFR (test 89 mL/min/1.73M2 Interpretat ion of eGFR code = 78707-3) Values Stage Description Result G1 Nataliya l [...] i s not applicable for dialysis patients [facility] CenterHxgxcrcsnx4150-90-52 08:24:44 Test Item Value Reference Range Interpretation Comments POC-Creatinine 0.8 mg/dL 0.6-1.3 : TESTED AT [facility] (test code = [address] [place] [address]8) [place] [address]: Clinical Services Specialist/Techni grisel ID = [id number] for Jesus Gonzalez POC-EGFR (test 89 mL/min/1.73M2 Interpretat ion of eGFR code = 05273-1) Values Stage Description Result G1 Nataliya l [...] i s not applicable for dialysis patients [facility] CenterPcnnfuagbu5450-48-03 08:24:44 Test Item Value Reference Range Interpretation Comments POC-Creatinine 0.8 mg/dL 0.6-1.3 : TESTED AT [facility] (test code = [address] [address]-7) [place] [address]: Clinical Services Specialist/Techni grisel ID = [id number] for Jesus Gonzalez POC-EGFR (test 89 mL/min/1.73M2 Interpretat ion of eGFR code = 07230-1) Values Stage Description Result G1 Nataliya l [...] i s not applicable for dialysis patients [facility]-Uwzghpzqfo7609-54-39 08:24:44 Test Item Value Reference Range Interpretation Comments POC-Creatinine 0.8 mg/dL 0.6-1.3 : TESTED AT [facility] (test code = [address] [address]-4) [place] [address]: Clinical Services Specialist/Techni grisel ID = [id number] for Jesus Gonzalez POC-EGFR (test 89 mL/min/1.73M2 Interpretat ion of eGFR code = 28179-6) Values Stage Description Result G1 Nataliya l [...] i s not applicable for dialysis patients [facility]-TNVIEOTGPS3146-19-68 08:24:44 Test Item Value Reference Range Interpretation Comments POC-CREATININ 0.8 mg/dL 0.6-1.3 : TESTED AT [facility] [address] (BEAKER) (test code = [place] [address]: 1859) Clinical Services Specialist/Techni grisel ID = [id number] for Jesus Gonzalez POC-EGFR 89 Interpretation of eGFR (BEAKER) mL/min/1.73M2 Values Stage D escription (test code [...] not appl icable for dialysis patien ts BLOOD [id number] 13:00:51 Test Item Value Reference Range Interpretation Comments CULTURE (BEAKER) (test No growth in 5 days code = 1095) BLOOD [id number] 13:00:51 Test Item Value Reference Range Interpretation Comments CULTURE (BEAKER) (test No growth in 5 days code = 1095) POC-Glucose [id number] 07:55:54 Test Item Value Reference Range Interpretation Comments POC-Glucose Meter (test 120 mg/dL 70-110 H : TE STED AT [facility] code = 1538) [address] [place] [address], 770 30: Clinical Services Specialist/Techni grisel ID = [id number] for SCHMITZ, ISSAIRIS Lab Interpretation (test Abnormal code = 92546-0) [facility]-Glucose [id number] 07:55:54 Test Item Value Reference Range Interpretation Comments POC-Glucose Meter (test 120 mg/dL 70-110 H : TE STED AT [facility] code = 1538) [address] [place] [address], 770 30: Clinical Services Specialist/Techni grisel ID = [id number] for SCHMITZ, ISSAIRIS Lab Interpretation (test Abnormal code = 79561-9) [facility]-Glucose [id number] 07:55:54 Test Item Value Reference Range Interpretation Comments POC-Glucose Meter (test 120 mg/dL 70-110 H : TE STED AT [facility] code = 1538) [address] [place] [address], 770 30: Clinical Services Specialist/Techni grisel ID = [id number] for SCHMITZ, ISSAIRIS Lab Interpretation (test Abnormal code = 39046-3) [facility]-Glucose [id number] 07:55:54 Test Item Value Reference Range Interpretation Comments POC-Glucose Meter (test 120 mg/dL 70-110 H : TE STED AT [facility] code = 1538) [address] [place] [address], 770 30: Clinical Services Specialist/Techni grisel ID = [id number] for SCHMITZ, ISSAIRIS Lab Interpretation (test Abnormal code = 40789-7) [facility]-Glucose [id number] 07:55:54 Test Item Value Reference Range Interpretation Comments POC-Glucose Meter (test 120 mg/dL 70-110 H : TE STED AT [facility] code = 1538) [address] [place] [address], 770 30: Clinical Services Specialist/Techni grisel ID = [id number] for SCHMITZ, ISSAIRIS Lab Interpretation (test Abnormal code = 77794-2) [facility]-Glucose [id number] 07:55:54 Test Item Value Reference Range Interpretation Comments POC-Glucose Meter (test 120 mg/dL 70-110 H : TE STED AT [facility] code = 1538) [address] [place] [address], 770 30: Clinical Services Specialist/Techni grisel ID = [id number] for SCHMITZ, ISSAIRIS Lab Interpretation (test Abnormal code = 94256-4) [facility]-Glucose [id number] 07:55:54 Test Item Value Reference Range Interpretation Comments POC-Glucose Meter (test 120 mg/dL 70-110 H : TE STED AT [facility] code = 1538) [address] [place] [address], 770 30: Clinical Services Specialist/Techni grisel ID = [id number] for SCHMITZ, ISSAIRIS Lab Interpretation (test Abnormal code = 76452-0) [facility]-Glucose [id number] 07:55:54 Test Item Value Reference Range Interpretation Comments POC-Glucose Meter (test 120 mg/dL 70-110 H : TE STED AT [facility] code = 1538) [address] [place] [address], 770 30: Clinical Services Specialist/Techni grisel ID = [id number] for SCHMITZ, ISSAIRIS Lab Interpretation (test Abnormal code = 18043-4) [facility]-Glucose [id number] 07:55:54 Test Item Value Reference Range Interpretation Comments POC-Glucose Meter (test 120 mg/dL 70-110 H : TE STED AT [facility] code = 1538) [address] [place] [address], 770 30: Clinical Services Specialist/Techni grisel ID = [id number] for SCHMITZ, ISSAIRIS Lab Interpretation (test Abnormal code = 16742-8) [facility]-Glucose [id number] 07:55:54 Test Item Value Reference Range Interpretation Comments POC-Glucose Meter (test 120 mg/dL 70-110 H : TE STED AT [facility] code = 1538) [address] [place] [address], 770 30: Clinical Services Specialist/Techni grisel ID = [id number] for SCHMITZ, ISSAIRIS Lab Interpretation (test Abnormal code = 35479-8) [facility]-Glucose [id number] 07:55:54 Test Item Value Reference Range Interpretation Comments POC-Glucose Meter (test 120 mg/dL 70-110 H : TE STED AT [facility] code = 1538) [address] [place] [address], 770 30: Clinical Services Specialist/Techni grisel ID = [id number] for SCHMITZ, ISSAIRIS Lab Interpretation (test Abnormal code = 96117-6) [facility]-Glucose [id number] 07:55:54 Test Item Value Reference Range Interpretation Comments POC-Glucose Meter (test 120 mg/dL 70-110 H : TE STED AT [facility] code = 1538) [address] [place] [address], 770 30: Clinical Services Specialist/Techni grisel ID = [id number] for SCHMITZ, ISSAIRIS Lab Interpretation (test Abnormal code = 88064-4) [facility]-Glucose [id number] 07:55:54 Test Item Value Reference Range Interpretation Comments POC-Glucose Meter (test 120 mg/dL 70-110 H : TE STED AT [facility] code = 1538) [address] [place] [address], 770 30: Clinical Services Specialist/Techni grisel ID = [id number] for SCHMITZ, ISSAIRIS Lab Interpretation (test Abnormal code = 41494-7) [facility]-Glucose [id number] 07:55:54 Test Item Value Reference Range Interpretation Comments POC-Glucose Meter (test 120 mg/dL 70-110 H : TE STED AT [facility] code = 1538) [address] [place] [address], 770 30: Clinical Services Specialist/Techni grisel ID = [id number] for SCHMITZ, ISSAIRIS Lab Interpretation (test Abnormal code = 98237-5) [facility] [id number] 07:55:54 Test Item Value Reference Range Interpretation Comments POC-Glucose Meter (test 120 mg/dL 70-110 H : TE STED AT [facility] code = 1538) [address] [place] [address], 770 30: Clinical Services Specialist/Techni grisel ID = [id number] for SCHMITZ, ISSAIRIS Lab Interpretation (test Abnormal code = 29939-6) [facility]-Glucose [id number] 07:55:54 Test Item Value Reference Range Interpretation Comments POC-Glucose Meter (test 120 mg/dL 70-110 H : TE STED AT [facility] code = 1538) [address] [place] [address], 770 30: Clinical Services Specialist/Techni grisel ID = [id number] for SCHMITZ, ISSAIRIS Lab Interpretation (test Abnormal code = 08768-1) [facility]-Glucose [id number] 07:55:54 Test Item Value Reference Range Interpretation Comments POC-Glucose Meter (test 120 mg/dL 70-110 H : TE STED AT [facility] code = 1538) [address] [place] [address], 770 30: Clinical Services Specialist/Techni grisel ID = [id number] for SCHMITZ, ISSAIRIS Lab Interpretation (test Abnormal code = 23060-5) [facility] [id number] 07:55:54 Test Item Value Reference Range Interpretation Comments POC-Glucose Meter (test 120 mg/dL 70-110 H : TE STED AT [facility] code = 1538) [address] [place] [address], 770 30: Clinical Services Specialist/Techni grisel ID = [id number] for SCHMITZ, ISSAIRIS Lab Interpretation (test Abnormal code = 93829-8) [facility]-Glucose [id number] 07:55:54 Test Item Value Reference Range Interpretation Comments POC-Glucose Meter (test 120 mg/dL 70-110 H : TE STED AT [facility] code = 1538) [address] [place] [address], 770 30: Clinical Services Specialist/Techni grisle ID = [id number] for SCHMITZ, ISSAIRIS Lab Interpretation (test Abnormal code = 95569-5) [facility]-Glucose [id number] 07:55:54 Test Item Value Reference Range Interpretation Comments POC-Glucose Meter (test 120 mg/dL 70-110 H : TE STED AT [facility] code = 1538) [address] [place] [address], 770 30: Clinical Services Specialist/Techni grisel ID = [id number] for SCHMITZ, ISSAIRIS Lab Interpretation (test Abnormal code = 38022-5) [facility]-Glucose [id number] 07:55:54 Test Item Value Reference Range Interpretation Comments POC-Glucose Meter (test 120 mg/dL 70-110 H : TE STED AT [facility] code = 1538) [address] [place] [address], 770 30: Clinical Services Specialist/Techni grisel ID = [id number] for SCHMITZ, ISSAIRIS Lab Interpretation (test Abnormal code = 93927-7) [facility]-Glucose [id number] 07:55:54 Test Item Value Reference Range Interpretation Comments POC-Glucose Meter (test 120 mg/dL 70-110 H : TE STED AT [facility] code = 1538) [address] [place] [address], 770 30: Clinical Services Specialist/Techni grisel ID = [id number] for SCHMITZ, ISSAIRIS Lab Interpretation (test Abnormal code = 80899-3) [facility]-Glucose [id number] 07:55:54 Test Item Value Reference Range Interpretation Comments POC-Glucose Meter (test 120 mg/dL 70-110 H : TE STED AT [facility] code = 1538) [address] [place] [address], 770 30: Clinical Services Specialist/Techni grisel ID = [id number] for SCHMITZ, ISSAIRIS Lab Interpretation (test Abnormal code = 94249-5) [facility]-Glucose [id number] 07:55:54 Test Item Value Reference Range Interpretation Comments POC-Glucose Meter (test 120 mg/dL 70-110 H : TE STED AT [facility] code = 1538) [address] [place] [address], 770 30: Clinical Services Specialist/Techni grisel ID = [id number] for SCHMITZ, ISSAIRIS Lab Interpretation (test Abnormal code = 72551-6) [facility]-Glucose [id number] 07:55:54 Test Item Value Reference Range Interpretation Comments POC-Glucose Meter (test 120 mg/dL 70-110 H : TE STED AT [facility] code = 1538) [address] [facility], 770 30: Clinical Services Specialist/Techni grisel ID = [id number] for SCHMITZ, ISSAIRIS Lab Interpretation (test Abnormal code = 08372-0) [facility]-GLUCOSE [id number] 07:55:54 Test Item Value Reference Range Interpretation Comments POC-GLUCOSE METER 120 mg/dL 70-110 H : TESTED A T [facility] 6720 (BEAKER) (test code = KENYA Mcmullen [facility], 1538) [address]: Clinical Services Specialist/Techni grisel ID = [id number] for LEORA OLEA, [place] COMPREHENSIVE METABOLIC [id number] 07:31:16 Test Item Value Reference Range Interpretation Comments TOTAL PROTEIN 6.8 gm/dL 6.0-8.3 Specimen sligh tly (BEAKER) (test hemolyzed code = 770) ALBUMIN (BEAKER) 3.7 g/dL 3.5-5.0 Specimen sl ightly (test code = 1145) hemolyzed ALKALINE 135 U/L 40-150 PHOSPHATASE (BEAKER) (test code = 346) BILIRUBIN TOTAL 0.3 mg/dL 0.2-1.2 Specimen sli ghtly (BEAKER) (test hemolyzed code = 377) SODIUM (BEAKER) 138 meq/L 136-145 (test code = 381) POTASSIUM (BEAKER) 4.2 meq/L 3.5-5.1 Specimen slightly (test code = 379) hemolyzed CHLORIDE (BEAKER) 101 meq/L 98-107 (test code = 382) CO2 (BEAKER) (test 28 meq/L 22-29 code = 355) BLOOD UREA 13 mg/dL 7-21 NITROGEN (BEAKER) (test code = 354) CREATININE 0.71 mg/dL 0.57-1.25 Specimen slight ly (BEAKER) (test hemolyzed code = 358) GLUCOSE RANDOM 122 mg/dL 70-105 H (BEAKER) (test code = 652) CALCIUM (BEAKER) 9.1 mg/dL 8.4-10.2 (test code = 697) AST (SGOT) 22 U/L 5-34 Specimen slight ly (BEAKER) (test hemolyzed code = 353) ALT (SGPT) 17 U/L 6-55 Specimen slight ly (BEAKER) (test hemolyzed code = 347) EGFR (BEAKER) 102 Interpretatio n of eGFR (test code = 1092) mL/min/1.[address] age Description sq m Result G1 Nataliya l or high >=90 G2 Mildly decreased 60-89 G3a Mildl y to moderately 45-5 9 G3b Moderately to s everely 30-44 G4 Severl y decreased 15-29 G5 Kidney failure <15Reported eGF R is based on the CKD-EPI 2020 equation that d oes not use a race coefficientEsti mated GFR is not as accur ate as Creatinine Roya lory in predicting glom erular filtration rate . Estimated GFR is not appl icable for dialysis patien ts Clinical Services Specialist ID - [id number] (HEMOGRAM ONLY)2022-08-08 07:09:16 Test Item Value Reference Range Interpretation Comments WHITE BLOOD CELL COUNT (BEAKER) 4.6 K/ L 3.5-10.5 (test code = 775) RED BLOOD CELL COUNT (BEAKER) 3.35 M/ L 3.93-5.22 L (test code = 761) HEMOGLOBIN (BEAKER) (test code = 10.6 GM/DL 11.2-15.7 L 410) HEMATOCRIT (BEAKER) (test code = 32.1 % 34.1-44.9 L 411) MEAN CORPUSCULAR VOLUME (BEAKER) 96 fL 79-95 H (test code = 753) MEAN CORPUSCULAR HEMOGLOBIN 31.6 pg 25.6-32.2 (BEAKER) (test code = 751) MEAN CORPUSCULAR HEMOGLOBIN CONC 33.0 GM/DL 32.2-35.5 (BEAKER) (test code = 752) RED CELL DISTRIBUTION WIDTH 14.6 % 11.7-14.4 H (BEAKER) (test code = 412) PLATELET COUNT (BEAKER) (test 144 K/CU MM 150-450 L code = 756) MEAN PLATELET VOLUME (BEAKER) 9.6 fL 9.4-12.3 (test code = 754) NUCLEATED RED BLOOD CELLS 0 /100 WBC 0-0 ([facility]) (test code = 413) POCT-GLUCOSE [id number] 21:14:58 Test Item Value Reference Range Interpretation Comments POC-GLUCOSE METER 121 mg/dL 70-110 H : Notified RN/MD: TESTED ([facility]) (test code AT [facility] [address] = 1538) [facility], 770 30: Clinical Services Specialist/Techni grisel ID = [id number] for FILOMENA MORRIS POCT-GLUCOSE [id number] 11:50:07 Test Item Value Reference Range Interpretation Comments POC-GLUCOSE METER 174 mg/dL 70-110 H : [facility] (test code = KENYA Mcmullen [facility], 1538) [address]: Clinical Services Specialist/Techni grisel ID = [id number] for Sintia Womack POCT-GLUCOSE [id number] 10:11:53 Test Item Value Reference Range Interpretation Comments POC-GLUCOSE METER 104 mg/dL 70-110 : TESTED A T [facility] 6720 ([facility]) (test code [facility], = 1538) [address]: Clinical Services Specialist/Techni grisel ID = [id number] for Prasanna Cali, [id number] 09:37:00INTRA OP IMAGING Reason for exam:->[facility] RAQUEL [facility]INK ZAVALETA : 1970 Sex: FAn imaging unit was utilized for this procedure. No radiologist interpretation was requested. Refer tothe EMR for findings. Refer to PACS for any patient radiation dose information.POCT-GLUCOSE [id number] 07:56:51 Test Item Value Reference Range Interpretation Comments POC-GLUCOSE METER 99 mg/dL 70-110 : TESTED A T [facility] 6720 (BEAKER) (test code = [place], 1538) [address]: Clinical Services Specialist/Techni grisel ID = [id number] for Card Sintia yan (CELLAVISION MANUAL DIFF)2022-08-07 05:22:20 Test Item Value Reference Range Interpretation Comments NEUTROPHILS - REL 45 % (CELLAVISION)(BEAKER) (test code = 2816) LYMPHOCYTES - REL 26 % (CELLAVISION)(BEAKER) (test code = 2817) MONOCYTES - REL 13 % (CELLAVISION)(BEAKER) (test code = 2818) EOSINOPHILS - REL 2 % (CELLAVISION)(BEAKER) (test code = 2819) BASOPHILS - REL 2 % (CELLAVISION)(BEAKER) (test code = 2820) METAMYELOCYTES - REL 3 % 0-0 H (CELLAVISION)(BEAKER) (test code = 2821) MYELOCYTES - REL 2 % 0-0 H (CELLAVISION)(BEAKER) (test code = 2822) PROMYELOCYTES - REL 1 % 0-0 H (CELLAVSION)(BEAKER) (test code = 2825) BANDS - REL (CELLAVISION)(BEAKER) 2 % 0-10 (test code = 2826) ATYPICAL LYMPHOCYTES - REL 4 % 0-0 H (CELLAVISION)(BEAKER) (test code = 2829) NEUTROPHILS - ABS 0.99 K/ul 1.56-6.13 L (CELLAVISION)(BEAKER) (test code = 2830) LYMPHOCYTES - ABS 0.57 K/ul 1.18-3.74 L (CELLAVISION)(BEAKER) (test code = 2831) MONOCYTES - ABS 0.29 K/uL 0.24-0.36 (CELLAVISION)(BEAKER) (test code = 2832) EOSINOPHILS - ABS 0.04 K/uL 0.04-0.36 (CELLAVISION)(BEAKER) (test code = 2834) BASOPHILS - ABS 0.04 K/uL 0.01-0.08 (CELLAVISION)(BEAKER) (test code = 2835) METAMYELOCYTES - ABS 0.07 K/uL 0.00-0.00 H (CELLAVISION)(BEAKER) (test code = 2836) MYELOCYTES-ABS 0.04 K/uL 0.00-0.00 H (CELLAVISION)(BEAKER) (test code = 2837) PROMYELOCYTES - ABS 0.02 K/uL 0.00-0.00 H (CELLAVISION)(BEAKER) (test code = 2838) BANDS - ABS (CELLAVISION)(BEAKER) 0.04 K/uL 0.00-0.80 (test code = 2840) ATYPICAL LYMPHOCYTES - ABS 0.09 K/uL 0.00-0.00 H (CELLAVISION)(BEAKER) (test code = 2858) TOTAL COUNTED (BEAKER) (test code 100 = 1351) MANUAL NRBC PER 100 CELLS (BEAKER) 2 /100 WBC 0-0 H (test code = 1353) WBC MORPHOLOGY (BEAKER) (test code Normal = 487) PLT MORPHOLOGY (BEAKER) (test code Normal = 486) POLYCHROMATOPHILLIC RBCS(BEAKER) 1+ few (test code = 478) BASOPHILIC STIPPLING (BEAKER) Present (test code = 473) ARTIFACT (CELLAVISION)(BEAKER) Present (test code = 3432) PLATELET CONCENTRATION Decreased (CELLAVISION)(BEAKER) (test code = 3438) Clinical Services Specialist ID - Jas comments: Slide comments:CBC W/PLT COUNT & AUTO [id number] 05:22:19 Test Item Value Reference Range Interpretation Comments WHITE BLOOD CELL COUNT (BEAKER) 2.2 K/ L 3.5-10.5 L (test code = 775) RED BLOOD CELL COUNT (BEAKER) 3.33 M/ L 3.93-5.22 L (test code = 761) HEMOGLOBIN (BEAKER) (test code = 10.5 GM/DL 11.2-15.7 L 410) HEMATOCRIT (BEAKER) (test code = 31.9 % 34.1-44.9 L 411) MEAN CORPUSCULAR VOLUME (BEAKER) 96 fL 79-95 H (test code = 753) MEAN CORPUSCULAR HEMOGLOBIN 31.5 pg 25.6-32.2 (BEAKER) (test code = 751) MEAN CORPUSCULAR HEMOGLOBIN CONC 32.9 GM/DL 32.2-35.5 (BEAKER) (test code = 752) RED CELL DISTRIBUTION WIDTH 14.8 % 11.7-14.4 H (BEAKER) (test code = 412) PLATELET COUNT (BEAKER) (test 130 K/CU MM 150-450 L code = 756) MEAN PLATELET VOLUME (BEAKER) 9.0 fL 9.4-12.3 L (test code = 754) NUCLEATED RED BLOOD CELLS 0 /100 WBC 0-0 (BEAKER) (test code = 413) BASIC METABOLIC [id number] 04:33:11 Test Item Value Reference Range Interpretation Comments SODIUM (BEAKER) 140 meq/L 136-145 (test code = 381) POTASSIUM 3.8 meq/L 3.5-5.1 (BEAKER) (test code = 379) CHLORIDE (BEAKER) 105 meq/L 98-107 (test code = 382) CO2 (BEAKER) 26 meq/L 22-29 (test code = 355) BLOOD UREA 10 mg/dL 7-21 NITROGEN (BEAKER) (test code = 354) CREATININE 0.64 mg/dL 0.57-1.25 (BEAKER) (test code = 358) GLUCOSE RANDOM 94 mg/dL 70-105 (BEAKER) (test code = 652) CALCIUM (BEAKER) 8.9 mg/dL 8.4-10.2 (test code = 697) EGFR (BEAKER) 106 Interpretatio n of eGFR (test code = mL/min/1.73 values Stage De scription 1092) sq m Result G1 Nataliya l or high >=90 G2 Mildly decreased 60-89 G3a Mildl y to moderately 45-5 9 G3b Moderately to s everely 30-44 G4 Severl y decreased 15-29 G5 Kidney failure <15Reported eGF R is based on the CKD-EPI 202 equation that d oes not use a race coefficientEsti mated GFR is not as accur ate as Creatinine Roya henley in predicting glom erular filtration rate . Estimated GFR is not appl icable for dialysis patien ts Clinical Services Specialist ID - PIAYA [id number] 04:33:11 Test Item Value Reference Range Interpretation Comments MAGNESIUM (BEAKER) (test code = 1.9 mg/dL 1.6-2.6 627) Clinical Services Specialist ID - PIAYA LHEPATIC FUNCTION [id number] 04:33:11 Test Item Value Reference Range Interpretation Comments TOTAL PROTEIN (BEAKER) (test code = 6.5 gm/dL 6.0-8.3 770) ALBUMIN (BEAKER) (test code = 1145) 3.6 g/dL 3.5-5.0 BILIRUBIN TOTAL (BEAKER) (test code 0.4 mg/dL 0.2-1.2 = 377) BILIRUBIN DIRECT (BEAKER) (test 0.2 mg/dL 0.1-0.5 code = 706) ALKALINE PHOSPHATASE (BEAKER) (test 157 U/L 40-150 H code = 346) AST (SGOT) (BEAKER) (test code = 20 U/L 5-34 353) ALT (SGPT) (BEAKER) (test code = 18 U/L 6-55 347) Clinical Services Specialist ID - PIAYA LPOCT-GLUCOSE [id number] 20:50:37 Test Item Value Reference Range Interpretation Comments POC-GLUCOSE METER 120 mg/dL 70-110 H : Notified RN/MD: ([facility]) (test code = TESTED AT [place] [address] 153) [facility], [address]: Clinical Services Specialist/Techni grisel ID = [id number] for Lily Darlingmauro POCT-GLUCOSE [id number] 17:14:28 Test Item Value Reference Range Interpretation Comments POC-GLUCOSE METER 90 mg/dL 70-110 : TESTED A [place] [address] ([facility]) (test code = [facility], 153) [address]: Clinical Services Specialist/Techni grisel ID = [id number] for Card enas, Sintia POCT-GLUCOSE [id number] 12:19:21 Test Item Value Reference Range Interpretation Comments POC-GLUCOSE METER 134 mg/dL 70-110 H : TESTED A T [place] [id number] ([facility]) (test code = [facility], 1538) [address]: Clinical Services Specialist/Techni grisel ID = [id number] for Ca rdenas, Sintia CBC W/PLT COUNT & AUTO [id number] 08:08:18 Test Item Value Reference Range Interpretation Comments WHITE BLOOD CELL COUNT (BEAKER) 1.7 K/ L 3.5-10.5 L (test code = 775) RED BLOOD CELL COUNT (BEAKER) 3.17 M/ L 3.93-5.22 L (test code = 761) HEMOGLOBIN (BEAKER) (test code = 10.0 GM/DL 11.2-15.7 L 410) HEMATOCRIT (BEAKER) (test code = 30.2 % 34.1-44.9 L 411) MEAN CORPUSCULAR VOLUME (BEAKER) 95 fL 79-95 (test code = 753) MEAN CORPUSCULAR HEMOGLOBIN 31.5 pg 25.6-32.2 (BEAKER) (test code = 751) MEAN CORPUSCULAR HEMOGLOBIN CONC 33.1 GM/DL 32.2-35.5 (BEAKER) (test code = 752) RED CELL DISTRIBUTION WIDTH 15.1 % 11.7-14.4 H (BEAKER) (test code = 412) PLATELET COUNT (BEAKER) (test 127 K/CU MM 150-450 L code = 756) MEAN PLATELET VOLUME (BEAKER) 9.6 fL 9.4-12.3 (test code = 754) NUCLEATED RED BLOOD CELLS 0 /100 WBC 0-0 (BEAKER) (test code = 413) (CELLAVISION MANUAL DIFF)2022-08-06 08:08:18 Test Item Value Reference Range Interpretation Comments NEUTROPHILS - REL 36 % (CELLAVISION)(BEAKER) (test code = 2816) LYMPHOCYTES - REL 30 % (CELLAVISION)(BEAKER) (test code = 2817) MONOCYTES - REL 27 % (CELLAVISION)(BEAKER) (test code = 2818) EOSINOPHILS - REL 3 % (CELLAVISION)(BEAKER) (test code = 2819) BANDS - REL (CELLAVISION)(BEAKER) 4 % 0-10 (test code = 2826) ATYPICAL LYMPHOCYTES - REL 1 % 0-0 H (CELLAVISION)(BEAKER) (test code = 2829) NEUTROPHILS - ABS 0.61 K/ul 1.56-6.13 L (CELLAVISION)(BEAKER) (test code = 2830) LYMPHOCYTES - ABS 0.51 K/ul 1.18-3.74 L (CELLAVISION)(BEAKER) (test code = 2831) MONOCYTES - ABS 0.46 K/uL 0.24-0.36 H (CELLAVISION)(BEAKER) (test code = 2832) EOSINOPHILS - ABS 0.05 K/uL 0.04-0.36 (CELLAVISION)(BEAKER) (test code = 2834) BANDS - ABS (CELLAVISION)(BEAKER) 0.07 K/uL 0.00-0.80 (test code = 2840) ATYPICAL LYMPHOCYTES - ABS 0.02 K/uL 0.00-0.00 H (CELLAVISION)(BEAKER) (test code = 2858) TOTAL COUNTED (BEAKER) (test code = 100 1351) PLT MORPHOLOGY (BEAKER) (test code Normal = 486) SMUDGE CELLS (BEAKER) (test code = Present 1371) POLYCHROMATOPHILLIC RBCS(BEAKER) 1+ few (test code = 478) ANISOCYTOSIS (BEAKER) (test code = 1+ few 961) MICROCYTES (BEAKER) (test code = 1+ few 965) POIKILOCYTES (BEAKER) (test code = 1+ few 966) OVALOCYTES (BEAKER) (test code = 1+ few 477) TEAR DROP CELLS (BEAKER) (test code 1+ few = 481) PLATELET CONCENTRATION Decreased (CELLAVISION)(BEAKER) (test code = 3438) Clinical Services Specialist ID - Praneeth Lorao-onUser comments: Slide comments:POCT-GLUCOSE METER 2022-08-06 07:45:13 Test Item Value Reference Range Interpretation Comments POC-GLUCOSE METER 92 mg/dL 70-110 : TESTED A T [facility] 6720 (BEAKER) (test code = [place], 1538) [address]: Clinical Services Specialist/Techni grisel ID = [id number] for Card Sintia yan HEPATIC FUNCTION [id number] 06:51:26 Test Item Value Reference Range Interpretation Comments TOTAL PROTEIN (BEAKER) (test code = 6.2 gm/dL 6.0-8.3 770) ALBUMIN (BEAKER) (test code = 1145) 3.4 g/dL 3.5-5.0 L BILIRUBIN TOTAL (BEAKER) (test code 0.4 mg/dL 0.2-1.2 = 377) BILIRUBIN DIRECT (BEAKER) (test 0.2 mg/dL 0.1-0.5 code = 706) ALKALINE PHOSPHATASE (BEAKER) (test 131 U/L 40-150 code = 346) AST (SGOT) (BEAKER) (test code = 22 U/L 5-34 353) ALT (SGPT) (BEAKER) (test code = 21 U/L 6-55 347) Clinical Services Specialist ID - MARCOBASIC METABOLIC [id number] 06:51:25 Test Item Value Reference Range Interpretation Comments SODIUM (BEAKER) 140 meq/L 136-145 (test code = 381) POTASSIUM 3.7 meq/L 3.5-5.1 (BEAKER) (test code = 379) CHLORIDE (BEAKER) 105 meq/L 98-107 (test code = 382) CO2 (BEAKER) 28 meq/L 22-29 (test code = 355) BLOOD UREA 11 mg/dL 7-21 NITROGEN (BEAKER) (test code = 354) CREATININE 0.62 mg/dL 0.57-1.25 (BEAKER) (test code = 358) GLUCOSE RANDOM 90 mg/dL 70-105 (BEAKER) (test code = 652) CALCIUM (BEAKER) 8.7 mg/dL 8.4-10.2 (test code = 697) EGFR (BEAKER) 107 Interpretatio n of eGFR (test code = mL/min/1.73 values Stage De scription 1092) sq m Result G1 Nataliya l or high >=90 G2 Mildly decreased 60-89 G3a Mildl y to moderately 45-5 9 G3b Moderately to s everely 30-44 G4 Severl y decreased 15-29 G5 Kidney failure <15Reported eGF R is based on the CKD-EPI 2021 equation that d oes not use a race coefficientEsti mated GFR is not as accur ate as Creatinine Roya henley in predicting glom erular filtration rate . Estimated GFR is not appl icable for dialysis patien ts Clinical Services Specialist ID - [id number] 06:51:25 Test Item Value Reference Range Interpretation Comments MAGNESIUM (BEAKER) (test code = 1.8 mg/dL 1.6-2.6 627) Clinical Services Specialist ID - MARCOPOCT-GLUCOSE [id number] 21:31:14 Test Item Value Reference Range Interpretation Comments POC-GLUCOSE METER 107 mg/dL 70-110 : TESTED A T [facility] 6720 (BEAKER) (test code = [facility], 1538) 15691: Clinical Services Specialist/Techni grisel ID = [id number] for Nikunj Stapleton POCT-GLUCOSE [id number] 17:03:33 Test Item Value Reference Range Interpretation Comments POC-GLUCOSE METER 119 mg/dL 70-110 H : TESTED A T [facility] 6720 (BEAKER) (test code = [facility], 1538) 15248: Clinical Services Specialist/Techni grisel ID = [id number] for Harshal Guerrero CBC W/PLT COUNT & AUTO [id number] 12:37:24 Test Item Value Reference Range Interpretation Comments WHITE BLOOD CELL COUNT (BEAKER) 1.4 K/ L 3.5-10.5 L (test code = 775) RED BLOOD CELL COUNT (BEAKER) 3.18 M/ L 3.93-5.22 L (test code = 761) HEMOGLOBIN (BEAKER) (test code = 10.4 GM/DL 11.2-15.7 L 410) HEMATOCRIT (BEAKER) (test code = 30.3 % 34.1-44.9 L 411) MEAN CORPUSCULAR VOLUME (BEAKER) 95 fL 79-95 (test code = 753) MEAN CORPUSCULAR HEMOGLOBIN 32.7 pg 25.6-32.2 H (BEAKER) (test code = 751) MEAN CORPUSCULAR HEMOGLOBIN CONC 34.3 GM/DL 32.2-35.5 (BEAKER) (test code = 752) RED CELL DISTRIBUTION WIDTH 15.4 % 11.7-14.4 H (BEAKER) (test code = 412) PLATELET COUNT (BEAKER) (test 118 K/CU MM 150-450 L code = 756) MEAN PLATELET VOLUME (BEAKER) 9.5 fL 9.4-12.3 (test code = 754) NUCLEATED RED BLOOD CELLS 0 /100 WBC 0-0 (BEAKER) (test code = 413) (CELLAVISION MANUAL DIFF)2022-08-05 12:37:24 Test Item Value Reference Range Interpretation Comments NEUTROPHILS - REL 25 % (CELLAVISION)(BEAKER) (test code = 2816) LYMPHOCYTES - REL 32 % (CELLAVISION)(BEAKER) (test code = 2817) MONOCYTES - REL 28 % (CELLAVISION)(BEAKER) (test code = 2818) EOSINOPHILS - REL 9 % (CELLAVISION)(BEAKER) (test code = 2819) BASOPHILS - REL 1 % (CELLAVISION)(BEAKER) (test code = 2820) MYELOCYTES - REL 1 % 0-0 H (CELLAVISION)(BEAKER) (test code = 2822) BANDS - REL (CELLAVISION)(BEAKER) 2 % 0-10 (test code = 2826) ATYPICAL LYMPHOCYTES - REL 2 % 0-0 H (CELLAVISION)(BEAKER) (test code = 2829) NEUTROPHILS - ABS 0.35 K/ul 1.56-6.13 L (CELLAVISION)(BEAKER) (test code = 2830) LYMPHOCYTES - ABS 0.45 K/ul 1.18-3.74 L (CELLAVISION)(BEAKER) (test code = 2831) MONOCYTES - ABS 0.39 K/uL 0.24-0.36 H (CELLAVISION)(BEAKER) (test code = 2832) EOSINOPHILS - ABS 0.13 K/uL 0.04-0.36 (CELLAVISION)(BEAKER) (test code = 2834) BASOPHILS - ABS 0.01 K/uL 0.01-0.08 (CELLAVISION)(BEAKER) (test code = 2835) MYELOCYTES-ABS 0.01 K/uL 0.00-0.00 H (CELLAVISION)(BEAKER) (test code = 2837) BANDS - ABS (CELLAVISION)(BEAKER) 0.03 K/uL 0.00-0.80 (test code = 2840) ATYPICAL LYMPHOCYTES - ABS 0.03 K/uL 0.00-0.00 H (CELLAVISION)(BEAKER) (test code = 2858) TOTAL COUNTED (BEAKER) (test code 100 = 1351) WBC MORPHOLOGY (BEAKER) (test Normal code = 487) PLT MORPHOLOGY (BEAKER) (test Normal code = 486) POLYCHROMATOPHILLIC RBCS(BEAKER) 1+ few (test code = 478) ANISOCYTOSIS (BEAKER) (test code 1+ few = 961) MICROCYTES (BEAKER) (test code = 1+ few 965) POIKILOCYTES (BEAKER) (test code 2+ moderate = 966) OVALOCYTES (BEAKER) (test code = 2+ moderate 477) TEAR DROP CELLS (BEAKER) (test 1+ few code = 481) ARTIFACT (CELLAVISION)(BEAKER) Present (test code = 3432) PLATELET CONCENTRATION Decreased (CELLAVISION)(BEAKER) (test code = 3438) Clinical Services Specialist ID - Samanhta OverholtUser comments: Slide comments:POCT-GLUCOSE METER 2022-08-05 12:17:20 Test Item Value Reference Range Interpretation Comments POC-GLUCOSE METER 102 mg/dL 70-110 : TESTED A T [facility] 6720 (BEAKER) (test code = [facility] [place], 1538) 89968: Clinical Services Specialist/Techni grisel ID = [id number] for Harshal Guerrero [id number] 12:11:34 Test Item Value Reference Range Interpretation Comments MAGNESIUM (BEAKER) (test code = 1.8 mg/dL 1.6-2.6 627) Clinical Services Specialist ID - SAMMYHEPATIC FUNCTION [id number] 12:11:34 Test Item Value Reference Range Interpretation Comments TOTAL PROTEIN (BEAKER) (test code = 6.3 gm/dL 6.0-8.3 770) ALBUMIN (BEAKER) (test code = 1145) 3.5 g/dL 3.5-5.0 BILIRUBIN TOTAL (BEAKER) (test code 0.5 mg/dL 0.2-1.2 = 377) BILIRUBIN DIRECT (BEAKER) (test 0.2 mg/dL 0.1-0.5 code = 706) ALKALINE PHOSPHATASE (BEAKER) (test 134 U/L 40-150 code = 346) AST (SGOT) (BEAKER) (test code = 26 U/L 5-34 353) ALT (SGPT) (BEAKER) (test code = 25 U/L 6-55 347) Clinical Services Specialist ID - AAANNIEIDBASIC METABOLIC [id number] 12:11:33 Test Item Value Reference Range Interpretation Comments SODIUM (BEAKER) 140 meq/L 136-145 (test code = 381) POTASSIUM 3.8 meq/L 3.5-5.1 (BEAKER) (test code = 379) CHLORIDE (BEAKER) 108 meq/L 98-107 H (test code = 382) CO2 (BEAKER) 24 meq/L 22-29 (test code = 355) BLOOD UREA 11 mg/dL 7-21 NITROGEN (BEAKER) (test code = 354) CREATININE 0.62 mg/dL 0.57-1.25 (BEAKER) (test code = 358) GLUCOSE RANDOM 91 mg/dL 70-105 (BEAKER) (test code = 652) CALCIUM (BEAKER) 8.6 mg/dL 8.4-10.2 (test code = 697) EGFR (BEAKER) 107 Interpretatio n of eGFR (test code = mL/min/1.73 values Stage De scription 1092) sq m Result G1 Nataliya l or high >=90 G2 Mildly decreased 60-89 G3a Mildl y to moderately 45-5 9 G3b Moderately to s everely 30-44 G4 Severl y decreased 15-29 G5 Kidney failure <15Reported eGF R is based on the CKD-EPI 2020 equation that d oes not use a race coefficientEsti mated GFR is not as accur ate as Creatinine Roya henley in predicting glom erular filtration rate . Estimated GFR is not appl icable for dialysis patien ts Clinical Services Specialist ID - AAHAMIDHIGH SENSITIVITY TROPONIN [id number] 12:08:29 Test Item Value Reference Range Interpretation Comments HIGH SENSITIVITY TROPONIN I (test < pg/ml <=17 code = 8364657) Clinical Services Specialist ID - PraneethThe TUMBLING INSTRUCTOR STAT High Sensitivity Troponin-I results should be used in conjunction with other diagnostic information such as ECG, clinical observations and information, and patient symptoms to aid in the diagnosis of MN.MR, ABDOMEN, WITHOUT / WITH IV [id number] 10:38:00 Release to patient->ImmediateWh[facility] is preferred?->[employer] ID = [id number]; Insurance Company Name = [facility]; Insurance Company Phone Number = ;Policy Number = [id number] [facility] : 1970 Sex: FFINAL REPORT MRI of [...] Date/Time: 05/31/2022 10:38:11 CT, CHEST, WITH IV [id number] 13:33:00Release to patient->ImmediateWhich [facility] / [facility] / [facility] radiology location is preferred?->[employer] ID = [id number]; Insurance Company Name = [employer]; Insurance Company Phone Number = ;Policy Number = [id number] [facility] : 1970 [...] 21, 2021 and July 28, 2021 Discussion: There is a right-sided Port-A-Cath. Visualized thyroid gland is normal. No subclavicular, axillary or hilar lymphadenopathy. Heart and pericardium are unremarkable. The distal esophagus appears thick-walledand there is a tiny hiatal hernia. Previously described small lower mediastinal lymph nodes have resolved. An anterior pericardial lymph node measuring 7 mm is stable. There is no mass or consolidationin the lung. No new pulmonary nodule is identified. Central airways are patent, no bronchiectasis or bronchial wall thickening. Again seen is a hypodense lesion in liver, please refer to MRI for details. A biliary stent is present. Bony structures demonstrate degenerative changes. No suspicious bony lesion. Impression: No new disease is identified in the thorax. Stable 7 mm anterior pericardial lymphnode. Small hiatal hernia. The distal esophagus appears thick-walled, which may reflect esophagitis.Signed: Vin Vargas MDReport Verified Date/Time: 05/28/2022 13:33:09 Reading Location: [facility] B1 [id number] Ortho Consult Reading Room POC-Creatinine 2022-02-04 14:21:17 Test Item Value Reference Range Interpretation Comments POC-Creatinine 0.7 mg/dL 0.6-1.3 : TESTED AT [facility]-KG [address] S (test code = [place] [address]-0) 91225: Clinical Services Specialist /Healthcare Associate ID = [id number] for Yusra Rubio POC-EGFR (test 105 mL/min/1.73M2 Interpretat ion of eGFR code = 66871-2) Values Stage Description Result G1 Nataliya l or high >=90 G2 Mildly decreased 60-89 G3a Mildl y to moderately 45-5 9 G3b Moderately to s jolie 30-44 G4 Severely dec reased 15-29 G5 Kidney Failu re <15Reported eGF R is based on the CKD-EPI 2020 equation that d oes not use a race coeffici ent Estimated GFR i s not as accurate as Cre atinine Clearance in pr edicting glomerular filt ration rate. Estimated GFR i s not applicable for dialysis patients [facility]Ecjmcqnexj1296-83-41 14:21:17 Test Item Value Reference Range Interpretation Comments POC-Creatinine 0.7 mg/dL 0.6-1.3 : TESTED AT [facility]-KG [address] S (test code = [place] [address]-0) 52651: Clinical Services Specialist /Healthcare Associate ID = [id number] for Yusra Rubio POC-EGFR (test 105 mL/min/1.73M2 Interpretat ion of eGFR code = 82856-1) Values Stage Description Result G1 Nataliya l [...] i s not applicable for dialysis patients [facility]-Nrmbxqqexn7083-80-47 14:21:17 Test Item Value Reference Range Interpretation Comments POC-Creatinine 0.7 mg/dL 0.6-1.3 : TESTED AT [facility]KG [address] S (test code = [place] [address]-5) 96527: Clinical Services Specialist /Healthcare Associate ID = [id number] for Yusra Rubio POC-EGFR (test 105 mL/min/1.73M2 Interpretat ion of eGFR code = 80997-9) Values Stage Description Result G1 Nataliya l [...] i s not applicable for dialysis patients [facility] CenterIfbbtrkflj0931-14-93 14:21:17 Test Item Value Reference Range Interpretation Comments POC-Creatinine 0.7 mg/dL 0.6-1.3 : TESTED AT [facility]KG [address] S (test code = [place] [address]-1) 70410: Clinical Services Specialist /Healthcare Associate ID = [id number] for Yusra Rubio POC-EGFR (test 105 mL/min/1.73M2 Interpretat ion of eGFR code = 18655-4) Values Stage Description Result G1 Nataliya l [...] i s not applicable for dialysis patients [facility] CenterOcuredexfb3822-07-00 14:21:17 Test Item Value Reference Range Interpretation Comments POC-Creatinine 0.7 mg/dL 0.6-1.3 : TESTED AT [facility]KG [address]7 S (test code = [place] [address]-7) 30662: Clinical Services Specialist /Healthcare Associate ID = [id number] for Yusra Rubio POC-EGFR (test 105 mL/min/1.73M2 Interpretat ion of eGFR code = 72948-8) Values Stage Description Result G1 Nataliya l [...] i s not applicable for dialysis patients [facility] CenterHwbyvkpvvp7147-70-39 14:21:17 Test Item Value Reference Range Interpretation Comments POC-Creatinine 0.7 mg/dL 0.6-1.3 : TESTED AT [facility]KG [address] S (test code = [place] [address]-9) 92804: Clinical Services Specialist /Healthcare Associate ID = [id number] for Yusra Rubio POC-EGFR (test 105 mL/min/1.73M2 Interpretat ion of eGFR code = 53412-2) Values Stage Description Result G1 Nataliya l [...] i s not applicable for dialysis patients [facility]-Gbbysugoxy4251-15-38 14:21:17 Test Item Value Reference Range Interpretation Comments POC-Creatinine 0.7 mg/dL 0.6-1.3 : TESTED AT [facility] [address] (test code = [place] [address]-6) 37039: Clinical Services Specialist /Healthcare Associate ID = [id number] for Yusra Rubio POC-EGFR (test 105 mL/min/1.73M2 Interpretat ion of eGFR code = 28359-8) Values Stage Description Result G1 Nataliya l [...] i s not applicable for dialysis patients [facility] CenterIsbgdrsmjk5089-05-64 14:21:17 Test Item Value Reference Range Interpretation Comments POC-Creatinine 0.7 mg/dL 0.6-1.3 : TESTED AT [facility] [address] (test code = [place] [address]-8) 68722: Clinical Services Specialist /Healthcare Associate ID = [id number] for Yusra Rubio POC-EGFR (test 105 mL/min/1.73M2 Interpretat ion of eGFR code = 59510-8) Values Stage Description Result G1 Nataliya l [...] i s not applicable for dialysis patients [facility] CenterCogktzcujs9711-68-28 14:21:17 Test Item Value Reference Range Interpretation Comments POC-Creatinine 0.7 mg/dL 0.6-1.3 : TESTED AT [facility]KG [address] S (test code = [place] [address]-2) 80564: Clinical Services Specialist /Healthcare Associate ID = [id number] for Yusra Rubio POC-EGFR (test 105 mL/min/1.73M2 Interpretat ion of eGFR code = 60211-6) Values Stage Description Result G1 Nataliya l [...] i s not applicable for dialysis patients [facility] CenterMykjsjdhxl9542-42-71 14:21:17 Test Item Value Reference Range Interpretation Comments POC-Creatinine 0.7 mg/dL 0.6-1.3 : TESTED AT [facility] [address] S (test code = [place] [address]-5) 21180: Clinical Services Specialist /Healthcare Associate ID = [id number] for Yusra Rubio POC-EGFR (test 105 mL/min/1.73M2 Interpretat ion of eGFR code = 44353-0) Values Stage Description Result G1 Nataliya l [...] i s not applicable for dialysis patients [facility] CenterRjxlepadbw9266-70-42 14:21:17 Test Item Value Reference Range Interpretation Comments POC-Creatinine 0.7 mg/dL 0.6-1.3 : TESTED AT [facility]KG [address] S (test code = [place] [address]-9) 81005: Clinical Services Specialist /Healthcare Associate ID = [id number] for Yusra Rubio POC-EGFR (test 105 mL/min/1.73M2 Interpretat ion of eGFR code = 55855-5) Values Stage Description Result G1 Nataliya l [...] i s not applicable for dialysis patients [facility] CenterXrvjfuboyl5356-49-42 14:21:17 Test Item Value Reference Range Interpretation Comments POC-Creatinine 0.7 mg/dL 0.6-1.3 : TESTED AT [facility]KG 245[address] S (test code = [place] [facility] [address]-8) 41761: Clinical Services Specialist /Healthcare Associate ID = [id number] for Yusra Rubio POC-EGFR (test 105 mL/min/1.73M2 Interpretat ion of eGFR code = 17928-5) Values Stage Description Result G1 Nataliya l [...] i s not applicable for dialysis patients [facility] CenterLlanpsyvbi3715-09-62 14:21:17 Test Item Value Reference Range Interpretation Comments POC-Creatinine 0.7 mg/dL 0.6-1.3 : TESTED AT [facility]KG [address] S (test code = [place] [address]-8) 55285: Clinical Services Specialist /Healthcare Associate ID = [id number] for Yusra Rubio POC-EGFR (test 105 mL/min/1.73M2 Interpretat ion of eGFR code = 59246-5) Values Stage Description Result G1 Nataliya l [...] i s not applicable for dialysis patients [facility]-Mozkhutdco5895-50-10 14:21:17 Test Item Value Reference Range Interpretation Comments POC-Creatinine 0.7 mg/dL 0.6-1.3 : TESTED AT [facility]KG [address] S (test code = [place] [address]-1) 84517: Clinical Services Specialist /Healthcare Associate ID = [id number] for Yusra Rubio POC-EGFR (test 105 mL/min/1.73M2 Interpretat ion of eGFR code = 76180-3) Values Stage Description Result G1 Nataliya l [...] i s not applicable for dialysis patients [facility] CenterDudsjtqlzk9086-11-69 14:21:17 Test Item Value Reference Range Interpretation Comments POC-Creatinine 0.7 mg/dL 0.6-1.3 : TESTED AT [facility]KG [address] S (test code = [place] [address]-9) 72760: Clinical Services Specialist /Healthcare Associate ID = [id number] for Yusra Rubio POC-EGFR (test 105 mL/min/1.73M2 Interpreta tion of eGFR code = 13613-4) Values Stage Description Result G1 Nataliya l [...] i s not applicable for dialysis patients [facility] CenterBhswnrnrrj8102-41-53 14:21:17 Test Item Value Reference Range Interpretation Comments POC-Creatinine 0.7 mg/dL 0.6-1.3 : [facility] (test code = [place] [address]-4) 08201: Clinical Services Specialist /Healthcare Associate ID = [id number] for Yusra Rubio POC-EGFR (test 105 mL/min/1.73M2 Interpretat ion of eGFR code = 89084-4) Values Stage Description Result G1 Nataliya l [...] i s not applicable for dialysis patients [facility]-Fvrzhdjjia4190-51-55 14:21:17 Test Item Value Reference Range Interpretation Comments POC-Creatinine 0.7 mg/dL 0.6-1.3 : TESTED AT [facility]KG [address] S (test code = [place] [address]-5) 42583: Clinical Services Specialist /Healthcare Associate ID = [id number] for Yusra Rubio POC-EGFR (test 105 mL/min/1.73M2 Interpretat ion of eGFR code = 32982-7) Values Stage Description Result G1 Nataliya l [...] i s not applicable for dialysis patients [facility]-Xcaouqwszh0600-85-51 14:21:17 Test Item Value Reference Range Interpretation Comments POC-Creatinine 0.7 mg/dL 0.6-1.3 : TESTED AT [facility]- [address] (test code = [place] [address]-1) 53871: Clinical Services Specialist /Healthcare Associate ID = [id number] for Yusra Rubio POC-EGFR (test 105 mL/min/1.73M2 Interpretat ion of eGFR code = 01891-8) Values Stage Description Result G1 Nataliya l [...] i s not applicable for dialysis patients [facility] CenterBrfpvhwrrw6725-90-68 14:21:17 Test Item Value Reference Range Interpretation Comments POC-Creatinine 0.7 mg/dL 0.6-1.3 : TESTED AT [facility]KG [address] S (test code = [place] [address]-4) 65683: Clinical Services Specialist /Healthcare Associate ID = [id number] for Yusra Rubio POC-EGFR (test 105 mL/min/1.73M2 Interpretat ion of eGFR code = 66482-2) Values Stage Description Result G1 Nataliya l [...] i s not applicable for dialysis patients [facility] CenterBlkiyccdnd9354-07-11 14:21:17 Test Item Value Reference Range Interpretation Comments POC-Creatinine 0.7 mg/dL 0.6-1.3 : TESTED AT [facility] [address] S (test code = [place] [address]-9) 16488: Clinical Services Specialist /Healthcare Associate ID = [id number] for Yusra Rubio POC-EGFR (test 105 mL/min/1.73M2 Interpretat ion of eGFR code = 50591-8) Values Stage Description Result G1 Nataliya l [...] i s not applicable for dialysis patients [facility]-Zbeoadkkpt5289-35-31 14:21:17 Test Item Value Reference Range Interpretation Comments POC-Creatinine 0.7 mg/dL 0.6-1.3 : TESTED AT [facility]KG [address] S (test code = [place] [address]-5) 99312: Clinical Services Specialist /Healthcare Associate ID = [id number] for Yusra Rubio POC-EGFR (test 105 mL/min/1.73M2 Interpretat ion of eGFR code = 38891-2) Values Stage Description Result G1 Nataliya l [...] i s not applicable for dialysis patients [facility]-Emmspjjdva9991-25-65 14:21:17 Test Item Value Reference Range Interpretation Comments POC-Creatinine 0.7 mg/dL 0.6-1.3 : TESTED AT [facility]-KG [address] S (test code = [place] [address]-7) 01392: Clinical Services Specialist /Healthcare Associate ID = [id number] for Yusra Rubio POC-EGFR (test 105 mL/min/1.73M2 Interpretat ion of eGFR code = 13135-7) Values Stage Description Result G1 Nataliya l [...] i s not applicable for dialysis patients [facility] CenterOynhrplmxm5201-61-95 14:21:17 Test Item Value Reference Range Interpretation Comments POC-Creatinine 0.7 mg/dL 0.6-1.3 : TESTED AT [facility]KG [address] S (test code = [place] [facility] [address]-8) 29701: Clinical Services Specialist /Healthcare Associate ID = [id number] for Yusra Rubio POC-EGFR (test 105 mL/min/1.73M2 Interpretat ion of eGFR code = 59642-3) Values Stage Description Result G1 Nataliya l [...] i s not applicable for dialysis patients [facility] CenterFjxxiggrit8354-97-25 14:21:17 Test Item Value Reference Range Interpretation Comments POC-Creatinine 0.7 mg/dL 0.6-1.3 : TESTED AT [facility]KG [address] S (test code = [place] [address]-6) 55752: Clinical Services Specialist /Healthcare Associate ID = [id number] for Yusra Rubio POC-EGFR (test 105 mL/min/1.73M2 Interpretat ion of eGFR code = 75467-5) Values Stage Description Result G1 Nataliya l [...] i s not applicable for dialysis patients [facility] HospitalUdbuiqVDYS-OUDXJNTFAF7167-73-17 14:21:17 Test Item Value Reference Range Interpretation Comments POC-CREATININ 0.7 mg/dL 0.6-1.3 : TESTED AT [facility] [address] (ROBYN) [place] [address]: (test code = Clinical Services Specialist/Techni grisel ID = [id number]) [id number] for [place] in, Yusra POC-EGFR 105 Interpretation of eGFR ([facility]) mL/min/1.73M2 Values Stage D escription (test code [...] icable for dialysis patien ts MR, ABDOMEN, [id number] 08:29:00Unlisted Reason for Exam - Click Yes and Enter Reason Below->Yes Unlisted Reason for Exam->[facility] : 1970 Sex: [...] Geoff Fitzgerald MDReport Verified Date/Time: 01/11/2022 08:29:18 [id number] 09:18:50 Test Item Value Reference Range Interpretation Comments MAGNESIUM (BEAKER) (test code = 1.6 mg/dL 1.6-2.6 627) COMPREHENSIVE METABOLIC [id number] 09:18:45 Test Item Value Reference Range Interpretation [...] PATIEN TS. CBC W/PLT COUNT & AUTO [id number] 08:59:07 Test Item Value Reference Range Interpretation [...] 0-1 PERCENT (BEAKER) (test code = 2801) [id number] 08:53:09 Test Item Value Reference Range Interpretation Comments MAGNESIUM (BEAKER) (test code = 1.7 mg/dL 1.6-2.6 627) COMPREHENSIVE METABOLIC [id number] 08:53:09 Test Item Value Reference Range Interpretation [...] PATIEN TS. CBC W/PLT COUNT & AUTO [id number] 08:31:05 Test Item Value Reference Range Interpretation [...] MORPHOLOGY (BEAKER) (test code Normal = 762) [id number] 08:46:31 Test Item Value Reference Range Interpretation Comments MAGNESIUM (BEAKER) (test code = 1.9 mg/dL 1.6-2.6 627) COMPREHENSIVE METABOLIC [id number] 08:46:26 Test Item Value Reference Range Interpretation [...] PATIEN TS. CBC W/PLT COUNT & AUTO [id number] 08:44:29 Test Item Value Reference Range Interpretation [...] 9.6 fL 9.4-12.3 (test code = 754) [id number] 08:42:02 Test Item Value Reference Range Interpretation Comments MAGNESIUM (BEAKER) (test code = 1.7 mg/dL 1.6-2.6 627) COMPREHENSIVE METABOLIC [id number] 08:41:56 Test Item Value Reference Range Interpretation [...] PATIEN TS. CBC W/PLT COUNT & AUTO [id number] 08:22:03 Test Item Value Reference Range Interpretation [...] PERCENT (BEAKER) (test code = 2801) CT, [id number] 09:13:00Unlisted Reason for Exam - Click Yes and Enter Reason Below->YesUnlisted Reason for Exam->cholangiocarcinomaIs this for enterography?->NoWill this procedure require oral contrast?->Yes [facility] 1970 Sex: FFINAL REPORT CLINICAL HISTORY: Unlisted Reason for ExamCHOLANGIOCARCINOMA FINDINGS: Multiple axial images of the chest, abdomen and pelvis were performed after the uncomplicated administration of IV contrast. Oral contrast was not given. This exam was performed according to our depar tmental dose-optimization program, which includes automated exposure [...] MDReport Verified Date/Time: 209:13:58 CT, CHEST, WITH [id number] 09:13:00Unlisted Reason for Exam - Click Yes and Enter Reason Below->YesUnlisted Reason for Exam->CHOLANGIOCARCINOMA [facility] 1970 Sex: FFINAL REPORT CLINICAL HISTORY: Unlisted Reason for ExamCHOLANGIOCARCINOMA FINDINGS: Multiple axial images of the chest, abdomen and pelvis were performed after the uncomplicated administration of IV contrast. Oral contrast was not given. This exam was performed [facility], which includes automated exposure control, [...] Date/Time: 209:13:58 BONE AND/OR JOINT IMAGING, WHOLE [id number] 16:18:00Unlisted Reason for Exam - Click Yes and Enter Reason Below->YesUnlisted Reason for Exam->[facility]angi[facility] 1970 Sex: FFINAL REPORT PROCEDURE: BONE SCAN, WHOLE BODY CPT CODE: 94887 INDICATION: Cholangiocarcinoma PROTOCOL: 20.0 mCi of Tc-99m [...] MORPHOLOGY (BEAKER) (test code Normal = 762) [id number] 08:33:24 Test Item Value Reference Range Interpretation Comments MAGNESIUM (BEAKER) (test code = 1.7 mg/dL 1.6-2.6 627) COMPREHENSIVE METABOLIC [id number] 08:33:19 Test Item Value Reference Range Interpretation [...] PATIEN TS. CBC W/PLT COUNT & AUTO [id number] 08:20:13 Test Item Value Reference Range Interpretation [...] 754) ANG, TUNNEL CATH CENTRAL INS W/PORT [id number] 14:46:00Reason for Exam:- >C22.1 CHOLANGIOCARC [facility] : 1970 Sex: FFINAL REPORT Exam: Chest [...] terminates at the cavoatrial junction. Signed: Bob Shepard Verified Date/Time: 08/04/2021 14:46:32 ReadingLocation: [facility] Radiology Reading Room BONE AND/OR JOINT IMAGING, WHOLE [id number] 14:18:00Unlisted Reason for Exam - Click Yes and Enter Reason Below->YesUnlisted Reason for Exam->[facility]angiocarcinoma [facility] : 1970 Sex: FFINAL REPORT PROCEDURE: BONE SCAN, WHOLE BODY CPT CODE: 69225 INDICATION: Cholangiocarcinoma PROTOCOL: 21.7 mCi of Tc-99m MDP was injected intravenously. Whole body and selected spotimages were obtained approximately 3 hours later. FINDINGS: There is unchanged increased tracer activity in the skull and right axilla. There is also unchanged focal increase in tracer activity in the posterior left seventh rib. Tracer activity is diffusely increased in the sternomanubrial joint, spine, elbows, SI joints, knees, and feet. IMPRESSION:1.No pattern of metastatic disease.2.Degenerative changes of the spine and peripheral joints3.Unchanged increased activity in the posterior left seventhrib most likely represents muscle insertion site.4.Stable skull hyperostosis. Images for comparison/correlation were whole-body bone scan from 06/10/2021. Signed: Skyla Angelo Verified Date/Time: 08/04/2021 14:18:58 Reading Location: [address] [address] Room Prothrombin time/[id number] 09:52:13 Test Item Value Reference Interpretation Comments [...] valves. Lab Interpretation Abnormal (test code = 04741-1) [facility]/[id number] 09:52:13 Test Item Value Reference Interpretation Comments [...] valves. Lab Interpretation Abnormal (test code = 54219-3) [facility] HospitalProthrombin time/[id number] 09:52:13 Test Item Value Reference Interpretation Comments [...] valves. Lab Interpretation Abnormal (test code = 83816-2) [facility]Pro[facility] time/[id number] 09:52:13 Test Item Value Reference Interpretation Comments Range Protime (test code = 12.7 See_Comment [Autom HipChatd 5902-2) message] The system which generated this [...] valves. Lab Interpretation Abnormal (test code = 55148-6) [facility] HospitalProthrombin time/[id number] 09:52:13 Test Item Value Reference Interpretation Comments [...] valves. Lab Interpretation Abnormal (test code = 28147-5) [facility] HospitalPro[facility]rom[facility] time/[id number] 09:52:13 Test Item Value Reference Interpretation Comments [...] valves. Lab Interpretation Abnormal (test code = 18912-2) [facility] HospitalProthrombin time/[id number] 09:52:13 Test Item Value Reference Interpretation Comments [...] valves. Lab Interpretation Abnormal (test code = 80701-0) [facility] HospitalPro[facility] time/[id number] 09:52:13 Test Item Value Reference Interpretation Comments [...] valves. Lab Interpretation Abnormal (test code = 31201-6) [facility] HospitalPro[facility] time/[id number] 09:52:13 Test Item Value Reference Interpretation Comments [...] valves. Lab Interpretation Abnormal (test code = 47766-6) [facility] HospitalProth[facility] time/[id number] 09:52:13 Test Item Value Reference Interpretation Comments [...] valves. Lab Interpretation Abnormal (test code = 52794-6) [facility] HospitalProth[facility] time/[id number] 09:52:13 Test Item Value Reference Interpretation Comments [...] valves. Lab Interpretation Abnormal (test code = 60492-7) [facility] HospitalPro[facility] time/[id number] 09:52:13 Test Item Value Reference Interpretation Comments [...] valves. Lab Interpretation Abnormal (test code = 76846-7) [facility] HospitalPro[facility] time/[id number] 09:52:13 Test Item Value Reference Interpretation Comments [...] valves. Lab Interpretation Abnormal (test code = 40118-0) [facility] HospitalPROTHROMBIN TIME/[id number] 09:52:13 Test Item Value Reference Range Interpretation Comments PROTIME (BEAKER) (test code = 12.7 seconds 11.8-14.4 759) INR (BEAKER) (test code = 370) 1.00 1.20-1.50 L RECOMMENDED COUMADIN/WARFARIN INR THERAPY RANGESSTANDARD DOSE: 2.0 - 3.0 Includes: PROPHYLAXIS for venous thrombosis, systemic embolization; TREATMENT for venous thrombosis and/or pulmonary embolus.HIGH RISK: Target INR is 2.5-3.5 for patients with mechanical heart valves.Platelet [id number] 09:49:17 Test Item Value Reference Range Interpretation Comments Platelets (test code = 299 See_Comment [Aut omated message] 837-3) The system [email or web address] generated this result transmitted ref erence range: 150 - 43 0 K/CU MM. The referen ce range was not u sed to interpret this result as normal/abnor mal. Lab Interpretation (test Normal code = 09336-6) [facility] [id number] 09:49:17 Test Item Value Reference Range Interpretation Comments Platelets (test code = 299 See_Comment [Aut omated message] 777-3) The system [email or web address] generated this result transmitted ref erence range: 150 - 43 0 K/CU MM. The referen ce range was not u sed to interpret this result as normal/abnor mal. Lab Interpretation (test Normal code = 92774-4) [facility] [id number] 09:49:17 Test Item Value Reference Range Interpretation Comments Platelets (test code = 299 See_Comment [Aut omated message] 777-3) The system [email or web address] generated this result transmitted ref erence range: 150 - 43 0 K/CU MM. The referen ce range was not u sed to interpret this result as normal/abnor mal. Lab Interpretation (test Normal code = 51877-9) [facility] [id number] 09:49:17 Test Item Value Reference Range Interpretation Comments Platelets (test code = 299 See_Comment [Aut omated message] 777-3) The system [email or web address] generated this result transmitted ref erence range: 150 - 43 0 K/CU MM. The referen ce range was not u sed to interpret this result as normal/abnor mal. Lab Interpretation (test Normal code = 16763-7) [facility] [id number] 09:49:17 Test Item Value Reference Range Interpretation Comments Platelets (test code = 299 See_Comment [Aut omated message] 777-3) The system [email or web address] generated this result transmitted ref erence range: 150 - 43 0 K/CU MM. The referen ce range was not u sed to interpret this result as normal/abnor mal. Lab Interpretation (test Normal code = 49727-5) [facility] [id number] 09:49:17 Test Item Value Reference Range Interpretation Comments Platelets (test code = 299 See_Comment [Aut omated message] 777-3) The system [email or web address] generated this result transmitted ref erence range: 150 - 43 0 K/CU MM. The referen ce range was not u sed to interpret this result as normal/abnor mal. Lab Interpretation (test Normal code = 90366-9) [facility] [id number] 09:49:17 Test Item Value Reference Range Interpretation Comments Platelets (test code = 299 See_Comment [Aut omated message] 777-3) The system [email or web address] generated this result transmitted ref erence range: 150 - 43 0 K/CU MM. The referen ce range was not u sed to interpret this result as normal/abnor mal. Lab Interpretation (test Normal code = 87636-3) [facility] [id number] 09:49:17 Test Item Value Reference Range Interpretation Comments Platelets (test code = 299 See_Comment [Aut omated message] 777-3) The system [email or web address] generated this result transmitted ref erence range: 150 - 43 0 K/CU MM. The referen ce range was not u sed to interpret this result as normal/abnor mal. Lab Interpretation (test Normal code = 55700-1) [facility] [id number] 09:49:17 Test Item Value Reference Range Interpretation Comments Platelets (test code = 299 See_Comment [Aut omated message] 777-3) The system [email or web address] generated this result transmitted ref erence range: 150 - 43 0 K/CU MM. The referen ce range was not u sed to interpret this result as normal/abnor mal. Lab Interpretation (test Normal code = 84535-4) [facility] [id number] 09:49:17 Test Item Value Reference Range Interpretation Comments Platelets (test code = 299 See_Comment [Aut omated message] 777-3) The system [email or web address] generated this result transmitted ref erence range: 150 - 43 0 K/CU MM. The referen ce range was not u sed to interpret this result as normal/abnor mal. Lab Interpretation (test Normal code = 56529-7) [facility] [id number] 09:49:17 Test Item Value Reference Range Interpretation Comments Platelets (test code = 299 See_Comment [Aut omated message] 777-3) The system [email or web address] generated this result transmitted ref erence range: 150 - 43 0 K/CU MM. The referen ce range was not u sed to interpret this result as normal/abnor mal. Lab Interpretation (test Normal code = 40992-7) [facility] [id number] 09:49:17 Test Item Value Reference Range Interpretation Comments Platelets (test code = 299 See_Comment [Aut omated message] 777-3) The system [email or web address] generated this result transmitted ref erence range: 150 - 43 0 K/CU MM. The referen ce range was not u sed to interpret this result as normal/abnor mal. Lab Interpretation (test Normal code = 65531-6) [facility] [id number] 09:49:17 Test Item Value Reference Range Interpretation Comments Platelets (test code = 299 See_Comment [Aut omated message] 777-3) The system [email or web address] generated this result transmitted ref erence range: 150 - 43 0 K/CU MM. The referen ce range was not u sed to interpret this result as normal/abnor mal. Lab Interpretation (test Normal code = 49962-1) [facility] [id number] 09:49:17 Test Item Value Reference Range Interpretation Comments PLATELET COUNT (BEAKER) (test 299 K/CU MM 150-430 code = 756) CT, [id number] 17:48:00Unlisted Reason for Exam - Click Yes and Enter Reason Below->YesUnlisted Reason for Exam->CholangiocarcinomaIs this for enterography?->NoWill this procedure require oral contrast?->No [facility] : 1970 Sex: FFINAL REPORT CT, ABDOMEN [...] Joni Chi VerifiedDate/Time: 07/30/2021 17:48:07 Reading Location: [facility] Diagnostic Imaging Reading Room - [place] [address], CHEST, WITH IV [id number] 17:48:00Unlisted Reason for Exam - Click Yes and Enter Reason Below->YesUnlisted Reason for Exam->cholangiocarcinoma [facility]ENTER[facility]: [facility] : 1970 Sex: FFINAL REPORT CT, ABDOMEN [...] Joni Chi VerifiedDate/Time: 07/30/2021 17:48:07 Reading Location: [facility] Diagnostic Imaging Reading Room - [facility] 1.310 .12 Blood Culture - Routine (Left Venipuncture)2021-07-12 17:00:51 Test Item Value Reference Range Interpretation Comments Result (test code = No growth in 5 days 6463-4) SOPHIA (test code = SOPHIA) The specimen volume collected for this blood culture was below the optimum (10 mL per bottle or 20 mL total). Use of lower volumes may adversely affect recovery and/or detection times of some organisms. [facility])2021-07-12 17:00:51 Test Item Value Reference Range Interpretation Comments Result (test code = No growth in 5 days 6463-4) SOPHIA (test code = SOPHIA) The specimen volume collected for this blood culture was below the optimum (10 mL per bottle or 20 mL total). Use of lower volumes may adversely affect recovery and/or detection times of some organisms. [facility] ([facility] Venipuncture)2021-07-12 17:00:51 Test Item Value Reference Range Interpretation Comments Result (test code = No growth in 5 days 6463-4) SOPHIA (test code = SOPHIA) The specimen volume collected for this blood culture was below the optimum (10 mL per bottle or 20 mL total). Use of lower volumes may adversely affect recovery and/or detection times of some organisms. [facility] (Left Venipuncture)2021-07-12 17:00:51 Test Item Value Reference Range Interpretation Comments Result (test code = No growth in 5 days 6463-4) SOPHIA (test code = SOPHIA) The specimen volume collected for this blood culture was below the optimum (10 mL per bottle or 20 mL total). Use of lower volumes may adversely affect recovery and/or detection times of some organisms. [facility]2021-07-12 17:00:51 Test Item Value Reference Range Interpretation Comments Result (test code = No growth in 5 days 6463-4) SOPHIA (test code = SOPHIA) The specimen volume collected for this blood culture was below the optimum (10 mL per bottle or 20 mL total). Use of lower volumes may adversely affect recovery and/or detection times of some organisms. [facility] Culture - Routine (Left Venipuncture)2021-07-12 17:00:51 Test Item Value Reference Range Interpretation Comments Result (test code = No growth in 5 days 6463-4) SOPHIA (test code = SOPHIA) The specimen volume collected for this blood culture was below the optimum (10 mL per bottle or 20 mL total). Use of lower volumes may adversely affect recovery and/or detection times of some organisms. [facility] ([facility]uncture)2021-07-12 17:00:51 Test Item Value Reference Range Interpretation Comments Result (test code = No growth in 5 days 6463-4) SOPHIA (test code = SOPHIA) The specimen volume collected for this blood culture was below the optimum (10 mL per bottle or 20 mL total). Use of lower volumes may adversely affect recovery and/or detection times of some organisms. [facility] ([facility]uncture)2021-07-12 17:00:51 Test Item Value Reference Range Interpretation Comments Result (test code = No growth in 5 days 6463-4) SOPHIA (test code = SOPHIA) The specimen volume collected for this blood culture was below the optimum (10 mL per bottle or 20 mL total). Use of lower volumes may adversely affect recovery and/or detection times of some organisms. [facility] ([facility] Venipuncture)2021-07-12 17:00:51 Test Item Value Reference Range Interpretation Comments Result (test code = No growth in 5 days 6463-4) SOPHIA (test code = SOPHIA) The specimen volume collected for this blood culture was below the optimum (10 mL per bottle or 20 mL total). Use of lower volumes may adversely affect recovery and/or detection times of some organisms. [facility] HospitalBL[facility] [id number] 17:00:51 Test Item Value Reference Range Interpretation Comments CULTURE (BEAKER) (test No growth in 5 days code = 1095) The specimen volume collected for this blood culture was below the optimum (10 mL per bottle or 20 mL total). Use of lower volumes may adversely affect recovery and/or detection times of some organisms.BLOOD [id number] 17:00:44 Test Item Value Reference Range Interpretation [...] Albumin (test code = 3.5 g/dL 3.5-5.0 61986-4) Alkaline Phosphatase 275 U/L 40-150 H (test code = 6768-6) Total Bilirubin (test 1.8 mg/dL 0.2-1.2 H code = 1974-2) Sodium (test code = 133 meq/L 136-145 L 2951-2) Potassium (test code 4.2 meq/L 3.5-5.1 = 2823-3) Chloride (test code = 95 meq/L 98-107 L 2074-0) CO2 (test code = 28 meq/L 22-29 2028-02) BUN (test code = 9 mg/dL - 3094-0) Creatinine (test code 0.79 mg/dL 0.57-1.25 = 2160-0) Glucose (test code = 80 mg/dL 70-105 2345-7) Calcium (test code = 8.3 mg/dL 8.4-10.2 L 00461-4) AST (test code = 45 U/L 5-34 H 1920-8) ALT (test code = 34 U/L 6-55 1742-6) EGFR (test code = 77 mL/min/1.[place] [address]-6) NOT ACCURATE CREATININE CLEARANCE IN PREDICTING GLOMERULAR FILTRATION RATE . ESTIMATED GFR I S NOT APPLICABLE FOR DIALYSIS PATIEN TS. SOPHIA (test code = SOPHIA) Clinical Services Specialist ID - PIAYA L Lab Interpretation Abnormal (test code = 40018-9) [facility]esium2022-[facility] 06:13:57 Test Item Value Reference Range Interpretation Comments Magnesium (test code = 1.3 mg/dL 1.6-2.6 L 94924-0) SOPHIA (test code = SOPHIA) Clinical Services Specialist ID - PIAYA L Lab Interpretation (test Abnormal code = 97090-7) [facility] HospitalComprehensive metabolic [id number] 06:13:57 Test Item Value Reference Range Interpretation Comments Protein, Total (test 6.9 See_Comment [Autom ated code = 2885-2) message] The system which generated this result transmit manoj reference range : 6.0 - 8.3 gm/dL . The reference range was not u sed to interpret th is result as normal/abnormal . Albumin (test code = 3.5 g/dL 3.5-5.0 51160-0) Alkaline Phosphatase 275 U/L 40-150 H (test code = 6768-6) Total Bilirubin (test 1.8 mg/dL 0.2-1.2 H code = 1974-2) Sodium (test code = 133 meq/L 136-145 L 2951-2) Potassium (test code 4.2 meq/L 3.5-5.1 = 2823-3) Chloride (test code = 95 meq/L 98-107 L 5-0) CO2 (test code = 28 meq/L 22-29 2028-9) BUN (test code = 9 mg/dL - 3094-0) Creatinine (test code 0.79 mg/dL 0.57-1.25 = 2160-0) Glucose (test code = 80 mg/dL 70-105 2345-7) Calcium (test code = 8.3 mg/dL 8.4-10.2 L 54290-6) AST (test code = 45 U/L 5-34 H 1920-8) ALT (test code = 34 U/L 6-55 1742-6) EGFR (test code = 77 mL/min/1.[place] [address]-8) NOT ACCURATE CREATININE CLEARANCE IN PREDICTING GLOMERULAR FILTRATION RATE . ESTIMATED GFR I S NOT APPLICABLE FOR DIALYSIS PATIEN TS. SOPHIA (test code = SOPHIA) Clinical Services Specialist ID - PIAYA L Lab Interpretation Abnormal (test code = 62151-2) [facility]20[facility] 06:13:57 Test Item Value Reference Range Interpretation Comments Magnesium (test code = 1.3 mg/dL 1.6-2.6 L 74042-7) SOPHIA (test code = SOPHIA) Clinical Services Specialist ID - PIAYA L Lab Interpretation (test Abnormal code = 20826-7) [facility] HospitalCOMPREHENSIVE METABOLIC [id number] 06:13:57 Test Item Value Reference Range Interpretation [...] = 382) CO2 (BEAKER) (test 28 meq/L code = 355) BLOOD UREA NITROGEN 9 mg/dL 01-08 (BEAKER) (test code = 354) CREATININE (BEAKER) [...] S NOT APPLICABLE FOR DIALYSIS PATIEN TS. Clinical Services Specialist ID - JM [id number] 06:13:57 Test Item Value Reference Range Interpretation Comments MAGNESIUM (BEAKER) (test code = 1.3 mg/dL 1.6-2.6 L 627) Clinical Services Specialist CHARITO - JM LCalcium, [id number] 05:25:30 Test Item Value Reference Range Interpretation Comments Calcium, Ion (test code = 1993-08) 1.01 mmol/L 1.12-1.27 L pH, Blood (test code = 43028-6) 7.40 Lab Interpretation (test code = Abnormal 05519-2) [facility], [id number] 05:25:30 Test Item Value Reference Range Interpretation Comments Calcium, Ion (test code = 1993-08) 1.01 mmol/L 1.12-1.27 L pH, Blood (test code = 17413-6) 7.40 Lab Interpretation (test code = Abnormal 36522-1) [facility], [id number] 05:25:30 Test Item Value Reference Range Interpretation Comments Calcium, Ion (test code = 1993-08) 1.01 mmol/L 1.12-1.27 L pH, Blood (test code = 59535-2) 7.40 Lab Interpretation (test code = Abnormal 22647-9) [facility], [id number] 05:25:30 Test Item Value Reference Range Interpretation Comments Calcium, Ion (test code = 1993-08) 1.01 mmol/L 1.12-1.27 L pH, Blood (test code = 46127-0) 7.40 Lab Interpretation (test code = Abnormal 11816-8) [facility], [id number] 05:25:30 Test Item Value Reference Range Interpretation Comments Calcium, Ion (test code = 1993-08) 1.01 mmol/L 1.12-1.27 L pH, Blood (test code = 44416-2) 7.40 Lab Interpretation (test code = Abnormal 52431-2) [facility], [id number] 05:25:30 Test Item Value Reference Range Interpretation Comments Calcium, Ion (test code = 1993-08) 1.01 mmol/L 1.12-1.27 L pH, Blood (test code = 66214-2) 7.40 Lab Interpretation (test code = Abnormal 60655-2) [facility], [id number] 05:25:30 Test Item Value Reference Range Interpretation Comments Calcium, Ion (test code = 1993-08) 1.01 mmol/L 1.12-1.27 L pH, Blood (test code = 75406-6) 7.40 Lab Interpretation (test code = Abnormal 21478-3) [facility], [id number] 05:25:30 Test Item Value Reference Range Interpretation Comments Calcium, Ion (test code = 1993-08) 1.01 mmol/L 1.12-1.27 L pH, Blood (test code = 86575-2) 7.40 Lab Interpretation (test code = Abnormal 13121-9) [facility], [id number] 05:25:30 Test Item Value Reference Range Interpretation Comments Calcium, Ion (test code = 1993-08) 1.01 mmol/L 1.12-1.27 L pH, Blood (test code = 36534-2) 7.40 Lab Interpretation (test code = Abnormal 88462-4) [facility], [id number] 05:25:30 Test Item Value Reference Range Interpretation Comments CALCIUM IONIZED (BEAKER) (test 1.01 mmol/L 1.12-1.27 L code = 698) PH, BLOOD (BEAKER) (test code = 7.40 1810) CBC with platelet count + automated [id number] 05:06:06 Test Item Value Reference Range Interpretation Comments WBC (test code = 6690-2) 8.4 See_Comment [A utomated message] The system [email or web address] generated this result transmitted ref erence range: 3.5 - 10 .5 K/L. The refe rence range was not u sed to interpret this result as normal/abnor mal. RBC (test code = 789-8) 4.29 See_Comment [Au tomated message] The system [email or web address] generated this result transmitted ref erence range: 3.93 - 5 .22 M/L. The refe rence range was not u sed to interpret this result as normal/abnor mal. MCHC (test code = 786-4) 31.6 See_Comment L [A utomated message] The system [email or web address] generated this result transmitted ref erence range: [...] See_Comment [Aut omated message] 777-3) The system [email or web address] generated this result transmitted ref erence range: 150 - 45 0 K/CU MM. The referen ce range was not u sed to interpret this result as normal/abnor mal. MPV (test code = 10.1 fL 9.4-12.3 74171-7) nRBC (test code = 413) 0 See_Comment [Aut omated message] The system [email or web address] generated this result transmitted ref erence range: [...] See_Comment [Aut omated message] 670) The system [email or web address] generated this result transmitted ref erence range: 1.56 - 6 .13 K/L. The refe rence range was not u sed to interpret this result as normal/abnor mal. # Lymphs (test code = 1.77 See_Comment [Auto mated message] 414) The system [email or web address] generated this result transmitted ref erence range: 1.18 - 3 .74 K/L. The refe rence range was not u sed to interpret this result as normal/abnor mal. # Monos (test code = 0.52 See_Comment H [Autom ated message] 415) The system [email or web address] generated this result transmitted ref erence range: 0.24 - 0 .36 K/L. The refe rence range was not u sed to interpret this result as normal/abnor mal. # Eos (test code = 416) 0.06 See_Comment [Au tomated message] The system [email or web address] generated this result transmitted ref erence range: 0.04 - 0 .36 K/L. The refe rence range was not u sed to interpret this result as normal/abnor mal. # Baso (test code = 417) 0.02 See_Comment [A utomated message] The system [email or web address] generated this result transmitted ref erence range: 0.01 - 0 .08 K/L. The refe rence range was not u sed to interpret this result as normal/abnor mal. Immature 0 % 0-1 Granulocytes-Relative (test code = 2801) Lab Interpretation (test Abnormal code = 66657-1) [facility] with platelet count + automated [id number] 05:06:06 Test Item Value Reference Range Interpretation Comments WBC (test code = 6690-2) 8.4 See_Comment [A utomated message] The system [email or web address] generated this result transmitted ref erence range: 3.5 - 10 .5 K/L. The refe rence range was not u sed to interpret this result as normal/abnor mal. RBC (test code = 789-8) 4.29 See_Comment [Au tomated message] The system [email or web address] generated this result transmitted ref erence range: 3.93 - 5 .22 M/L. The refe rence range was not u sed to interpret this result as normal/abnor mal. MCHC (test code = 786-4) 31.6 See_Comment L [A utomated message] The system [email or web address] generated this result transmitted ref erence range: [...] See_Comment [Aut omated message] 777-3) The system [email or web address] generated this result transmitted ref erence range: 150 - 45 0 K/CU MM. The referen ce range was not u sed to interpret this result as normal/abnor mal. MPV (test code = 10.1 fL 9.4-12.3 88531-5) nRBC (test code = 413) 0 See_Comment [Aut omated message] The system [email or web address] generated this result transmitted ref erence range: [...] See_Comment [Aut omated message] 670) The system [email or web address] generated this result transmitted ref erence range: 1.56 - 6 .13 K/L. The refe rence range was not u sed to interpret this result as normal/abnor mal. # Lymphs (test code = 1.77 See_Comment [Auto mated message] 414) The system [email or web address] generated this result transmitted ref erence range: 1.18 - 3 .74 K/L. The refe rence range was not u sed to interpret this result as normal/abnor mal. # Monos (test code = 0.52 See_Comment H [Autom ated message] 415) The system [email or web address] generated this result transmitted ref erence range: 0.24 - 0 .36 K/L. The refe rence range was not u sed to interpret this result as normal/abnor mal. # Eos (test code = 416) 0.06 See_Comment [Au tomated message] The system [email or web address] generated this result transmitted ref erence range: 0.04 - 0 .36 K/L. The refe rence range was not u sed to interpret this result as normal/abnor mal. # Baso (test code = 417) 0.02 See_Comment [A utomated message] The system [email or web address] generated this result transmitted ref erence range: 0.01 - 0 .08 K/L. The refe rence range was not u sed to interpret this result as normal/abnor mal. Immature 0 % 0-1 Granulocytes-Relative (test code = 2801) Lab Interpretation (test Abnormal code = 26053-6) [facility] W/PLT COUNT & AUTO [id number] 05:06:06 Test Item Value Reference Range Interpretation [...] PERCENT (BEAKER) (test code = 2801) POC-Glucose [id number] 21:43:11 Test Item Value Reference Range Interpretation Comments POC-Glucose Meter (test 109 mg/dL 70-110 : TE STED AT [facility] code = 1538) [address] [place] [address], 770 30: Clinical Services Specialist/Techni grisel ID = [id number] for BEHZAD GODFREY MCKEON Lab Interpretation (test Normal code = 84696-9) [facility] [id number] 21:43:11 Test Item Value Reference Range Interpretation Comments POC-Glucose Meter (test 109 mg/dL 70-110 : TE STED AT [facility] code = 1538) [address] [place] [address], 770 30: Clinical Services Specialist/Techni grisel ID = [id number] for EPIFANIO, SAMANT MCKEON Lab Interpretation (test Normal code = 94711-4) [facility]-Glucose [id number] 21:43:11 Test Item Value Reference Range Interpretation Comments POC-Glucose Meter (test 109 mg/dL 70-110 : TE STED AT [facility] code = 1538) [address] [place] [address], 770 30: Clinical Services Specialist/Techni grisel ID = [id number] for EPIFANIO, SAMANT MCKEON Lab Interpretation (test Normal code = 40665-9) [facility]-Glucose [id number] 21:43:11 Test Item Value Reference Range Interpretation Comments POC-Glucose Meter (test 109 mg/dL 70-110 : TE STED AT [facility] code = 1538) [address] [place] [address], 770 30: Clinical Services Specialist/Techni grisel ID = [id number] for EPIFANIO, SAMANT MCKEON Lab Interpretation (test Normal code = 02317-2) [facility]-Glucose [id number] 21:43:11 Test Item Value Reference Range Interpretation Comments POC-Glucose Meter (test 109 mg/dL 70-110 : TE STED AT [facility] code = 1538) [address] [place] [address], 770 30: Clinical Services Specialist/Techni grisel ID = [id number] for EPIFANIO, ANTONYANT MCKEON Lab Interpretation (test Normal code = 59452-2) [facility]-Glucose [id number] 21:43:11 Test Item Value Reference Range Interpretation Comments POC-Glucose Meter (test 109 mg/dL 70-110 : TE STED AT [facility] code = 1538) [address] [place] [address], 770 30: Clinical Services Specialist/Techni grisel ID = [id number] for EPIFANIO, SAMANT MCKEON Lab Interpretation (test Normal code = 36201-5) [facility]-Glucose [id number] 21:43:11 Test Item Value Reference Range Interpretation Comments POC-Glucose Meter (test 109 mg/dL 70-110 : TE STED AT [facility] code = 1538) [address] [place] [address], 770 30: Clinical Services Specialist/Techni grisel ID = [id number] for EPIFANIO, SAMANT MCKEON Lab Interpretation (test Normal code = 59745-0) [facility]-Glucose [id number] 21:43:11 Test Item Value Reference Range Interpretation Comments POC-Glucose Meter (test 109 mg/dL 70-110 : TE STED AT [facility] code = 1538) [address] [facility], 770 30: Clinical Services Specialist/Techni grisel ID = [id number] for BEHZAD GODFREY Lab Interpretation (test Normal code = 87945-8) [facility] [id number] 21:43:11 Test Item Value Reference Range Interpretation Comments POC-Glucose Meter (test 109 mg/dL 70-110 : TE STED AT [facility] code = 1538) [address] [place] [address], 770 30: Clinical Services Specialist/Techni grisel ID = [id number] for BEHZAD GODFREY MCKEON Lab Interpretation (test Normal code = 20029-0) [facility] [id number] 21:43:11 Test Item Value Reference Range Interpretation Comments POC-GLUCOSE METER 109 mg/dL 70-110 : [facility] (BEAKER[facility] (test code = [facility], 1538) [address]: Clinical Services Specialist/Techni grisel ID = [id number] for LOULOU GRANT POCT-GLUCOSE [id number] 16:58:39 Test Item Value Reference Range Interpretation Comments POC-GLUCOSE METER 159 mg/dL 70-110 H : TESTED A T [facility] 6720 (BEAKER) (test code = [facility], 1538) [address]: Clinical Services Specialist/Techni grisel ID = [id number] for ANTONIO JUSTICE TTWindy POCT-GLUCOSE [id number] 12:48:09 Test Item Value Reference Range Interpretation Comments POC-GLUCOSE METER 122 mg/dL 70-110 H : [facility] (BE[facility]ER[facility] (test code = [facility], 1538) [address]: Clinical Services Specialist/Techni grisel ID = [id number] for DENILSON MARIN, [id number] 12:10:00Reason for exam:->[facility] : 1970 Sex: FFluoroscopic unit utilized for a procedure performed in the OR. No interpretation was requested. Referto the operative report for findings. Refer to PACS for patient radiation dose information.POCT-GLUCOSE [id number] 07:22:37 Test Item Value Reference Range Interpretation Comments POC-GLUCOSE METER 77 mg/dL 70-110 : TESTED A T [facility] 6720 (BEAKER) (test code = [place], 1538) [address]: Clinical Services Specialist/Techni grisel ID = [id number] for SURESH ISBELL [id number] 04:49:25 Test Item Value Reference Range Interpretation Comments Phosphorus (test code 1.9 mg/dL 2.3-4.7 L Specim en = 2777-1) slightly hemolyzed SOPHIA (test code = SOPHIA) Clinical Services Specialist ID - SARAH M Lab Interpretation Abnormal (test code = 39678-9) [facility] 04:49:25 Test Item Value Reference Range Interpretation Comments Phosphorus (test code 1.9 mg/dL 2.3-4.7 L Specim en = 2777-1) slightly hemolyzed SOPHIA (test code = SOPHIA) Clinical Services Specialist ID - SARAH M Lab Interpretation Abnormal (test code = 31280-6) [facility] 04:49:25 Test Item Value Reference Range Interpretation Comments Phosphorus (test code 1.9 mg/dL 2.3-4.7 L Specim en = 2777-1) slightly hemolyzed SOPHAI (test code = SOPHIA) Clinical Services Specialist ID - SARAH M Lab Interpretation Abnormal (test code = 28617-4) [facility] 04:49:25 Test Item Value Reference Range Interpretation Comments Phosphorus (test code 1.9 mg/dL 2.3-4.7 L Specim en = 2777-1) slightly hemolyzed SOPHIA (test code = SOPHIA) Clinical Services Specialist ID - SARAH Lab Interpretation Abnormal (test code = 04457-8) [facility] 04:49:25 Test Item Value Reference Range Interpretation Comments Phosphorus (test code 1.9 mg/dL 2.3-4.7 L Specim en = 2777-1) slightly hemolyzed SOPHIA (test code = SOPHIA) Clinical Services Specialist ID - SARAH Lab Interpretation Abnormal (test code = 54357-5) [facility] 04:49:25 Test Item Value Reference Range Interpretation Comments Phosphorus (test code 1.9 mg/dL 2.3-4.7 L Specim en = 2777-1) slightly hemolyzed SOPHIA (test code = SOPHIA) Clinical Services Specialist ID - SARAH Lab Interpretation Abnormal (test code = 54246-8) [facility] 04:49:25 Test Item Value Reference Range Interpretation Comments Phosphorus (test code 1.9 mg/dL 2.3-4.7 L Specim en = 2777-1) slightly hemolyzed SOPHIA (test code = SOPHIA) Clinical Services Specialist ID - SARAH Lab Interpretation Abnormal (test code = 72004-7) [facility] 04:49:25 Test Item Value Reference Range Interpretation Comments Phosphorus (test code 1.9 mg/dL 2.3-4.7 L Specim en = 2777-1) slightly hemolyzed SOPHIA (test code = SOPHIA) Clinical Services Specialist ID - SARAH Lab Interpretation Abnormal (test code = 58944-0) [facility] 04:49:25 Test Item Value Reference Range Interpretation Comments Phosphorus (test code 1.9 mg/dL 2.3-4.7 L Specim en = 2777-1) slightly hemolyzed SOPHIA (test code = SOPHIA) Clinical Services Specialist ID - SARAH Lab Interpretation Abnormal (test code = 25116-8) [facility] 04:49:25 Test Item Value Reference Range Interpretation Comments MAGNESIUM (BEAKER) 1.6 mg/dL 1.6-2.6 Specimen slightly (test code = 627) hemolyzed Clinical Services Specialist ID - SARAH [id number] 04:49:25 Test Item Value Reference Range Interpretation Comments PHOSPHORUS (BEAKER) 1.9 mg/dL 2.3-4.7 L Specimen slightly (test code = 604) hemolyzed Clinical Services Specialist ID - SARAH MCOMPREHENSIVE METABOLIC [id number] 04:49:25 Test Item Value Reference Range Interpretation [...] S NOT APPLICABLE FOR DIALYSIS PATIEN TS. Clinical Services Specialist ID - SARAH MCBC W/PLT COUNT & AUTO [id number] 04:27:35 Test Item Value Reference Range Interpretation [...] PERCENT (BEAKER) (test code = 2801) CALCIUM, [id number] 04:24:30 Test Item Value Reference Range Interpretation Comments CALCIUM IONIZED (BEAKER) (test 1.00 mmol/L 1.12-1.27 L code = 698) PH, BLOOD (BEAKER) (test code = 7.39 1810) SARS-CoV2/RT-PCR (Asymptomatic ONLY)2021-07-10 02:57:41 Test Item Value Reference Range Interpretation Comments SARS-COV2/RT-PCR (test Negative Negative code = 59500-6) SOPHIA (test code = SOPHIA) Negative result [...] SARS-CoV-2 assay. Fact Sheet for Healthcare Providers:https://www.judith hendricks/fabien/RT SARS-CoV-2 HCP Fact Sheet 51-829827.pdf Fact Sheet for Healthcare Patients:https://wwwrakesh villanueva/fabien/RT SARS-CoV-2 Patient Fact Sheet EN 51-208030X4.pdf Lab Interpretation Normal (test code = 87533-0) [facility]2021-07-10 02:57:41 Test Item Value Reference Range Interpretation Comments SARS-COV2/RT-PCR (test Negative Negative code = 37908-3) SOPHIA (test code = SOPHIA) Negative result [...] SARS-CoV-2 assay. Fact Sheet for Healthcare Providers:https://www.judith whittakerrosado/fabien/RT SARS-CoV-2 HCP Fact Sheet 51-195414.pdf Fact Sheet for Healthcare Patients:https://www.peace vicenterosado/fabien/RT SARS-CoV-2 Patient Fact Sheet EN 51-145839A0.pdf Lab Interpretation Normal (test code = 29126-6) [facility] ONLY[facility]2021-07-10 02:57:41 Test Item Value Reference Range Interpretation Comments SARS-COV2/RT-PCR (test Negative Negative code = 54568-5) SOPHIA (test code = SOPHIA) Negative result [...] the Act. Testing was performed using the WeYAP SARS-CoV-2 assay. Fact Sheet for Healthcare Providers:https://www.judith arenasJumiorosado/fabien/RT SARS-CoV-2 HCP Fact Sheet 51-842917.pdf Fact Sheet for Healthcare Patients:https://mala.peace villanueva/fabien/RT SARS-CoV-2 Patient Fact Sheet EN 51-944000Z4.pdf Lab Interpretation Normal (test code = 62314-7) [facility]As[facility]omatic ONLY)2021-07-10 02:57:41 Test Item Value Reference Range Interpretation Comments SARS-COV2/RT-PCR (test Negative Negative code = 53868-9) SOPHIA (test code = SOPHIA) Negative result [...] the Act. Testing was performed using the WeYAP SARS-CoV-2 assay. Fact Sheet for Healthcare Providers:https://wwwjojo hendricks/fabien/RT SARS-CoV-2 HCP Fact Sheet 51-414383.pdf Fact Sheet for Healthcare Patients:https://www.peace villanueva/fabien/RT SARS-CoV-2 Patient Fact Sheet EN 51-432992Y8.pdf Lab Interpretation Normal (test code = 93349-6) [facility]Asymptomatic ONLY)2021-07-10 02:57:41 Test Item Value Reference Range Interpretation Comments SARS-COV2/RT-PCR (test Negative Negative code = 44378-9) SOPHIA (test code = SOPHIA) Negative result [...] the Act. Testing was performed using the WeYAP SARS-CoV-2 assay. Fact Sheet for Healthcare Providers:https://wwwjojo hendricks/fabien/RT SARS-CoV-2 HCP Fact Sheet 51-809153.pdf Fact Sheet for Healthcare Patients:https://www.peace villanueva/fabien/RT SARS-CoV-2 Patient Fact Sheet EN 51-645105P2.pdf Lab Interpretation Normal (test code = 91068-7) [facility] (Asymptomatic ONLY)2021-07-10 02:57:41 Test Item Value Reference Range Interpretation Comments SARS-COV2/RT-PCR (test Negative Negative code = 38043-8) SOPHIA (test code = SOPHIA) Negative result [...] the Act. Testing was performed using the WeYAP SARS-CoV-2 assay. Fact Sheet for Healthcare Providers:https://www.judith hendricks/fabien/RT SARS-CoV-2 HCP Fact Sheet 51-860400.pdf Fact Sheet for Healthcare Patients:https://www.Terviu/fabien/RT SARS-CoV-2 Patient Fact Sheet EN 51-741478R7.pdf Lab Interpretation Normal (test code = 13470-9) [facility] (Asymptomatic ONLY)2021-07-10 02:57:41 Test Item Value Reference Range Interpretation Comments SARS-COV2/RT-PCR (test Negative Negative code = 32573-0) SOPHIA (test code = SOPHIA) Negative result [...] the Act. Testing was performed using the WeYAP SARS-CoV-2 assay. Fact Sheet for Healthcare Providers:https://www.judith arenasCyanto/fabien/RT SARS-CoV-2 HCP Fact Sheet 51-709397.pdf Fact Sheet for Healthcare Patients:https://www.Terviu/fabien/RT SARS-CoV-2 Patient Fact Sheet EN 51-120084J7.pdf Lab Interpretation Normal (test code = 76688-9) [facility]As[facility]omatic ONLY)2021-07-10 02:57:41 Test Item Value Reference Range Interpretation Comments SARS-COV2/RT-PCR (test Negative Negative code = 27856-5) SOPHIA (test code = SOPHIA) Negative result [...] SARS-CoV-2 assay. Fact Sheet for Healthcare Providers:https://www.judith hendricks/fabien/RT SARS-CoV-2 HCP Fact Sheet 51-578253.pdf Fact Sheet for Healthcare Patients:https://www.Terviu/fabien/RT SARS-CoV-2 Patient Fact Sheet EN 51-842381N1.pdf Lab Interpretation Normal (test code = 59643-8) [facility]As[facility]omatic ONLY)2021-07-10 02:57:41 Test Item Value Reference Range Interpretation Comments SARS-COV2/RT-PCR (test Negative Negative code = 06408-8) SOPHIA (test code = SOPHIA) Negative result [...] Rosado SARS-CoV-2 assay. Fact Sheet for Healthcare Providers:https://artie hendricks/fabien/RT SARS-CoV-2 HCP Fact Sheet 51-790142.pdf Fact Sheet for Healthcare Patients:https://www.peace villanueva/fabien/RT SARS-CoV-2 Patient Fact Sheet EN 51-163743D7.pdf Lab Interpretation Normal (test code = 39073-2) [facility] ([facility])2021-07-10 02:57:41 Test Item Value Reference Range Interpretation Comments SARS-COV2/RT-PCR (test code = Negative Negative 0842679) Negative result for this test determines that [...] of the Act.Testing was performed using t angella WeYAP SARS-CoV-2 assay.Fact Sheet for Healthcare Providers:https://www.Ocean Lithotripsy.rosado/fabien/RT SARS-CoV-2 HCP Fact Sheet 51- 580907.pdfFact Sheet for Healthcare Patients:https://www.Ocean Lithotripsy.rosado/fabien/RT SARS-CoV-2 Patient Fact Sheet EN 51-377273A0.pdfPOCT-GLUCOSE [id number] 20:31:57 Test Item Value Reference Range Interpretation Comments POC-GLUCOSE METER 104 mg/dL 70-110 : Notified RN/MD: (ROBYN) (test code = TESTED AT [facility] 6720 1538) [facility], [address]: Clinical Services Specialist/Techni grisel ID = [id number] for ILYA SPANGLER POCT-GLUCOSE [id number] 16:29:31 Test Item Value Reference Range Interpretation Comments POC-GLUCOSE METER 96 mg/dL 70-110 : TESTED A T [facility] 6720 (ROBYN) (test code = KENYA [facility], 1538) [address]: Clinical Services Specialist/Techni grisel ID = [id number] for SURESH ISBELL Hepatic function [id number] 13:26:49 Test Item Value Reference Range Interpretation Comments Protein, Total (test 6.6 See_Comment [Autom ated code = 2885-2) message] The system which generated this result transmit manoj reference range : 6.0 - 8.3 gm/dL . The reference range was not u sed to interpret th is result as normal/abnormal . Albumin (test code = 3.5 g/dL 3.5-5.0 06324-0) Total Bilirubin (test 2.0 mg/dL 0.2-1.2 H code = 1974-2) Bilirubin, Direct 1.5 mg/dL 0.1-0.5 H (test code = 1968-7) Alkaline Phosphatase 205 U/L 40-150 H (test code = 6768-6) AST (test code = 45 U/L 5-34 H 1920-8) ALT (test code = 35 U/L 6-55 1742-6) SOPHIA (test code = SOPHIA) Clinical Services Specialist ID - ANSLEY B Lab Interpretation Abnormal (test code = 50204-9) [facility] [id number] 13:26:49 Test Item Value Reference Range Interpretation Comments Protein, Total (test 6.6 See_Comment [Autom ated code = 2885-2) message] The system which generated this result transmit manoj reference range : 6.0 - 8.3 gm/dL . The reference range was not u sed to interpret th is result as normal/abnormal . Albumin (test code = 3.5 g/dL 3.5-5.0 70968-6) Total Bilirubin (test 2.0 mg/dL 0.2-1.2 H code = 1974-) Bilirubin, Direct 1.5 mg/dL 0.1-0.5 H (test code = 1967-) Alkaline Phosphatase 205 U/L 40-150 H (test code = 6768-6) AST (test code = 45 U/L 5-34 H 1920-8) ALT (test code = 35 U/L 1742-6) SOPHIA (test code = SOPHIA) Clinical Services Specialist ID - ANSLEY B Lab Interpretation Abnormal (test code = 17387-1) [facility] [id number] 13:26:49 Test Item Value Reference Range Interpretation Comments Protein, Total (test 6.6 See_Comment [Autom ated code = 2885-2) message] The system which generated this result transmit manoj reference range : 6.0 - 8.3 gm/dL . The reference range was not u sed to interpret th is result as normal/abnormal . Albumin (test code = 3.5 g/dL 3.5-5.0 69492-9) Total Bilirubin (test 2.0 mg/dL 0.2-1.2 H code = 1974-) Bilirubin, Direct 1.5 mg/dL 0.1-0.5 H (test code = 1967-12) Alkaline Phosphatase 205 U/L 40-150 H (test code = 6768-6) AST (test code = 45 U/L 5-34 H 1920-8) ALT (test code = 35 U/L 1742-6) SOPHIA (test code = SOPHIA) Clinical Services Specialist ID - ANSLEY B Lab Interpretation Abnormal (test code = 12612-7) [facility] [id number] 13:26:49 Test Item Value Reference Range Interpretation Comments Protein, Total (test 6.6 See_Comment [Autom ated code = 2885-2) message] The system which generated this result transmit manoj reference range : 6.0 - 8.3 gm/dL . The reference range was not u sed to interpret th is result as normal/abnormal . Albumin (test code = 3.5 g/dL 3.5-5.0 48623-9) Total Bilirubin (test 2.0 mg/dL 0.2-1.2 H code = 1974-) Bilirubin, Direct 1.5 mg/dL 0.1-0.5 H (test code = 1967-) Alkaline Phosphatase 205 U/L 40-150 H (test code = 6768-6) AST (test code = 45 U/L 5-34 H 1920-8) ALT (test code = 35 U/L 6-55 1742-6) SOPHIA (test code = SOPHIA) Clinical Services Specialist ID - ANSLEY B Lab Interpretation Abnormal (test code = 41395-9) [facility] [id number] 13:26:49 Test Item Value Reference Range Interpretation Comments Protein, Total (test 6.6 See_Comment [Autom ated code = 2885-2) message] The system which generated this result transmit manoj reference range : 6.0 - 8.3 gm/dL . The reference range was not u sed to interpret th is result as normal/abnormal . Albumin (test code = 3.5 g/dL 3.5-5.0 48919-7) Total Bilirubin (test 2.0 mg/dL 0.2-1.2 H code = 1974-07) Bilirubin, Direct 1.5 mg/dL 0.1-0.5 H (test code = 1967-12) Alkaline Phosphatase 205 U/L 40-150 H (test code = 6768-6) AST (test code = 45 U/L 5-34 H 1919-8) ALT (test code = 35 U/L 6-55 1742-6) SOPHIA (test code = SOPHIA) Clinical Services Specialist ID - ANSLEY B Lab Interpretation Abnormal (test code = 50274-1) [facility] [id number] 13:26:49 Test Item Value Reference Range Interpretation Comments Protein, Total (test 6.6 See_Comment [Autom ated code = 2885-2) message] The system which generated this result transmit manoj reference range : 6.0 - 8.3 gm/dL . The reference range was not u sed to interpret th is result as normal/abnormal . Albumin (test code = 3.5 g/dL 3.5-5.0 37966-9) Total Bilirubin (test 2.0 mg/dL 0.2-1.2 H code = 1975-2) Bilirubin, Direct 1.5 mg/dL 0.1-0.5 H (test code = 1967-) Alkaline Phosphatase 205 U/L 40-150 H (test code = 6768-6) AST (test code = 45 U/L 5-34 H 192-8) ALT (test code = 35 U/L 6-55 1742-6) SOPHIA (test code = SOPHIA) Clinical Services Specialist ID - ANSLEY B Lab Interpretation Abnormal (test code = 43729-1) [facility] [id number] 13:26:49 Test Item Value Reference Range Interpretation Comments Protein, Total (test 6.6 See_Comment [Autom ated code = 2885-2) message] The system which generated this result transmit manoj reference range : 6.0 - 8.3 gm/dL . The reference range was not u sed to interpret th is result as normal/abnormal . Albumin (test code = 3.5 g/dL 3.5-5.0 82351-3) Total Bilirubin (test 2.0 mg/dL 0.2-1.2 H code = 1974-07) Bilirubin, Direct 1.5 mg/dL 0.1-0.5 H (test code = 1967-12) Alkaline Phosphatase 205 U/L 40-150 H (test code = 6768-6) AST (test code = 45 U/L 5-34 H 1919-8) ALT (test code = 35 U/L 6-55 1742-6) SOPHIA (test code = SOPHIA) Clinical Services Specialist ID - ANSLEY B Lab Interpretation Abnormal (test code = 22726-5) [facility] [id number] 13:26:49 Test Item Value Reference Range Interpretation Comments Protein, Total (test 6.6 See_Comment [Autom ated code = 2885-2) message] The system which generated this result transmit manoj reference range : 6.0 - 8.3 gm/dL . The reference range was not u sed to interpret th is result as normal/abnormal . Albumin (test code = 3.5 g/dL 3.5-5.0 55772-5) Total Bilirubin (test 2.0 mg/dL 0.2-1.2 H code = 1974-) Bilirubin, Direct 1.5 mg/dL 0.1-0.5 H (test code = 1967-) Alkaline Phosphatase 205 U/L 40-150 H (test code = 6768-6) AST (test code = 45 U/L 5-34 H 1920-8) ALT (test code = 35 U/L 6-55 1742-6) SOPHIA (test code = SOPHIA) Clinical Services Specialist ID - ANSLEY B Lab Interpretation Abnormal (test code = 10598-5) [facility] [id number] 13:26:49 Test Item Value Reference Range Interpretation Comments Protein, Total (test 6.6 See_Comment [Autom ated code = 2885-2) message] The system which generated this result transmit manoj reference range : 6.0 - 8.3 gm/dL . The reference range was not u sed to interpret th is result as normal/abnormal . Albumin (test code = 3.5 g/dL 3.5-5.0 11001-2) Total Bilirubin (test 2.0 mg/dL 0.2-1.2 H code = 1974-2) Bilirubin, Direct 1.5 mg/dL 0.1-0.5 H (test code = 1967-) Alkaline Phosphatase 205 U/L 40-150 H (test code = 6768-6) AST (test code = 45 U/L 5-34 H 1920-8) ALT (test code = 35 U/L 6-55 1742-6) SOPHIA (test code = SOPHIA) Clinical Services Specialist ID - ANSLEY B Lab Interpretation Abnormal (test code = 97823-9) [facility] [id number] 13:26:49 Test Item Value Reference Range Interpretation [...] (test code = 35 U/L 6-55 347) Clinical Services Specialist ID - ANSLEY [id number] 13:26:48 Test Item Value Reference Range Interpretation Comments MAGNESIUM (BEAKER) (test code = 1.8 mg/dL 1.6-2.6 627) Clinical Services Specialist ID - ANSLEY [id number] 12:28:48 Test Item Value Reference Range Interpretation Comments PHOSPHORUS (BEAKER) (test code = 2.7 mg/dL 2.3-4.7 604) Clinical Services Specialist ID - SARAH MCOMPREHENSIVE METABOLIC [id number] 12:28:47 Test Item Value Reference Range Interpretation [...] S NOT APPLICABLE FOR DIALYSIS PATIEN TS. Clinical Services Specialist ID - SARAH MPOCT-GLUCOSE [id number] 11:20:01 Test Item Value Reference Range Interpretation Comments POC-GLUCOSE METER 117 mg/dL 70-110 H : TESTED A T [facility] 6720 (BEAKER) (test code = [facility], 1538) 32687: Clinical Services Specialist/Techni grisel ID = [id number] for ANTONIO JUSTICE TTWindy POCT-GLUCOSE [id number] 07:43:17 Test Item Value Reference Range Interpretation Comments POC-GLUCOSE METER 79 mg/dL 70-110 : TESTED A T [facility] 6720 (BEAKER) (test code = [facility], 1538) 50853: Clinical Services Specialist/Techni grisel ID = [id number] for Neyda potts (contract)Carli hel CALCIUM, [id number] 06:50:26 Test Item Value Reference Range Interpretation Comments CALCIUM IONIZED (BEAKER) (test 0.98 mmol/L 1.12-1.27 L code = 698) PH, BLOOD (BEAKER) (test code = 7.43 1810) CBC W/PLT COUNT & AUTO [id number] 06:46:11 Test Item Value Reference Range Interpretation [...] PERCENT (BEAKER) (test code = 2801) POCT-GLUCOSE [id number] 21:36:20 Test Item Value Reference Range Interpretation Comments POC-GLUCOSE METER 116 mg/dL 70-110 H : TESTED A T [facility] 6720 (BEAKER) (test code = [place], 1538) 16065: Clinical Services Specialist/Techni grisel ID = [id number] for TREMAINE SAMSONASIA Basic Metabolic [id number] 19:39:40 Test Item Value Reference Range Interpretation Comments Sodium (test code = 131 meq/L 136-145 L 2951-2) Potassium (test code = 3.3 meq/L 3.5-5.1 L 2823-3) Chloride (test code = 90 meq/L 98-107 L 2075-0) CO2 (test code = 26 meq/L 22-29 8-9) BUN (test code = 67 mg/dL 7-21 H 3094-0) Creatinine (test code 2.95 mg/dL 0.57-1.25 H = 2160-0) Glucose (test code = 98 mg/dL 70-105 2345-7) Calcium (test code = 8.0 mg/dL 8.4-10.2 L 96206-9) EGFR (test code = 17 mL/min/1.73 [place] [address]-8) NOT ACCURATE CREATININE CLEARANCE IN PREDICTING GLOMERULAR FILTRATION RATE . ESTIMATED GFR I S NOT APPLICABLE FOR DIALYSIS PATIENTS. SOPHIA (test code = SOPHIA) Clinical Services Specialist ID - BS Lab Interpretation Abnormal (test code = 15826-3) [facility] Metabolic [id number] 19:39:40 Test Item Value Reference Range Interpretation [...] (test code = 8.0 mg/dL 8.4-10.2 L 57446-0) EGFR (test code = 17 mL/min/1.[place] [address]-5) NOT ACCURATE CREATININE CLEARANCE IN PREDICTING GLOMERULAR FILTRATION RATE . ESTIMATED GFR I S NOT APPLICABLE FOR DIALYSIS PATIENTS. SOPHIA (test code = SOPHIA) Clinical Services Specialist ID - BS Lab Interpretation Abnormal (test code = 06114-4) [facility] Metabolic [id number] 19:39:40 Test Item Value Reference Range Interpretation [...] (test code = 8.0 mg/dL 8.4-10.2 L 75457-4) EGFR (test code = 17 mL/min/1.[place] [address]-0) NOT ACCURATE CREATININE CLEARANCE IN PREDICTING GLOMERULAR FILTRATION RATE . ESTIMATED GFR I S NOT APPLICABLE FOR DIALYSIS PATIENTS. SOPHIA (test code = SOPHIA) Clinical Services Specialist ID - BS Lab Interpretation Abnormal (test code = 92007-1) [facility] Metabolic [id number] 19:39:40 Test Item Value Reference Range Interpretation Comments Sodium (test code = 131 meq/L 136-145 L 2951-2) Potassium (test code = 3.3 meq/L 3.5-5.1 L 2823-3) Chloride (test code = 90 meq/L 98-107 L 2075-0) CO2 (test code = 26 meq/L 22-8-9) BUN (test code = 67 mg/dL 7-21 H 3094-0) Creatinine (test code 2.95 mg/dL 0.57-1.25 H = 2160-0) Glucose (test code = 98 mg/dL 70-105 2345-7) Calcium (test code = 8.0 mg/dL 8.4-10.2 L 45126-7) EGFR (test code = 17 mL/min/1.[place] [address]-6) NOT ACCURATE CREATININE CLEARANCE IN PREDICTING GLOMERULAR FILTRATION RATE . ESTIMATED GFR I S NOT APPLICABLE FOR DIALYSIS PATIENTS. SOPHIA (test code = SOPHIA) Clinical Services Specialist ID - BS Lab Interpretation Abnormal (test code = 76936-6) [facility] Metabolic [id number] 19:39:40 Test Item Value Reference Range Interpretation [...] (test code = 8.0 mg/dL 8.4-10.2 L 92477-8) EGFR (test code = 17 mL/min/1.[place] [address]-7) NOT ACCURATE CREATININE CLEARANCE IN PREDICTING GLOMERULAR FILTRATION RATE . ESTIMATED GFR I S NOT APPLICABLE FOR DIALYSIS PATIENTS. SOPHIA (test code = SOPHIA) Clinical Services Specialist ID - BS Lab Interpretation Abnormal (test code = 13617-4) [facility] Metabolic [id number] 19:39:40 Test Item Value Reference Range Interpretation [...] (test code = 8.0 mg/dL 8.4-10.2 L 41375-8) EGFR (test code = 17 mL/min/1.[place] [address]-7) NOT ACCURATE CREATININE CLEARANCE IN PREDICTING GLOMERULAR FILTRATION RATE . ESTIMATED GFR I S NOT APPLICABLE FOR DIALYSIS PATIENTS. SOPHIA (test code = SOPHIA) Clinical Services Specialist ID - BS Lab Interpretation Abnormal (test code = 32807-2) [facility] Metabolic [id number] 19:39:40 Test Item Value Reference Range Interpretation Comments Sodium (test code = 131 meq/L 136-145 L 2951-2) Potassium (test code = 3.3 meq/L 3.5-5.1 L 2823-3) Chloride (test code = 90 meq/L 98-107 L 2075-0) CO2 (test code = 26 meq/L 22-29 8-9) BUN (test code = 67 mg/dL 7-21 H 3094-0) Creatinine (test code 2.95 mg/dL 0.57-1.25 H = 2160-0) Glucose (test code = 98 mg/dL 70-105 2345-7) Calcium (test code = 8.0 mg/dL 8.4-10.2 L 89435-2) EGFR (test code = 17 mL/min/1.[place] [address]-3) NOT ACCURATE CREATININE CLEARANCE IN PREDICTING GLOMERULAR FILTRATION RATE . ESTIMATED GFR I S NOT APPLICABLE FOR DIALYSIS PATIENTS. SOPHIA (test code = SOPHIA) Clinical Services Specialist ID - BS Lab Interpretation Abnormal (test code = 12244-1) [facility] Metabolic [id number] 19:39:40 Test Item Value Reference Range Interpretation Comments Sodium (test code = 131 meq/L 136-145 L 2951-2) Potassium (test code = 3.3 meq/L 3.5-5.1 L 2823-3) Chloride (test code = 90 meq/L 98-107 L 2075-0) CO2 (test code = 26 meq/L 22-29 8-9) BUN (test code = 67 mg/dL 7-21 H 3094-0) Creatinine (test code 2.95 mg/dL 0.57-1.25 H = 2160-0) Glucose (test code = 98 mg/dL 70-105 2345-7) Calcium (test code = 8.0 mg/dL 8.4-10.2 L 67971-4) EGFR (test code = 17 mL/min/1.[place] [address]-8) NOT ACCURATE CREATININE CLEARANCE IN PREDICTING GLOMERULAR FILTRATION RATE . ESTIMATED GFR I S NOT APPLICABLE FOR DIALYSIS PATIENTS. SOPHIA (test code = SOPHIA) Clinical Services Specialist ID - BS Lab Interpretation Abnormal (test code = 60168-9) [facility] Metabolic [id number] 19:39:40 Test Item Value Reference Range Interpretation [...] (test code = 8.0 mg/dL 8.4-10.2 L 90722-3) EGFR (test code = 17 mL/min/1.[place] [address]-5) NOT ACCURATE CREATININE CLEARANCE IN PREDICTING GLOMERULAR FILTRATION RATE . ESTIMATED GFR I S NOT APPLICABLE FOR DIALYSIS PATIENTS. SOPHIA (test code = SOPHIA) Clinical Services Specialist ID - BS Lab Interpretation Abnormal (test code = 80415-0) [facility] [id number] 19:39:40 Test Item Value Reference Range Interpretation [...] S NOT APPLICABLE FOR DIALYSIS PATIEN TS. Clinical Services Specialist ID - BSPOCT-GLUCOSE [id number] 17:21:38 Test Item Value Reference Range Interpretation Comments POC-GLUCOSE METER 97 mg/dL 70-110 : TESTED A T [facility] 6720 (BEAKER) (test code = [place], 1538) 13656: Clinical Services Specialist/Techni grisel ID = [id number] for TEREZA JUNE POCT-GLUCOSE [id number] 12:06:11 Test Item Value Reference Range Interpretation Comments POC-GLUCOSE METER 92 mg/dL 70-110 : TESTED A T [facility] 6720 (BEAKER) (test code = [facility], 1538) 99246: Clinical Services Specialist/Techni grisel ID = [id number] for MARIA DEL ROSARIO OR-TEREZA MARTINEZ POCT-GLUCOSE [id number] 07:53:32 Test Item Value Reference Range Interpretation Comments POC-GLUCOSE METER 80 mg/dL 70-110 : TESTED A T [facility] 6720 (BEAKER) (test code = [facility], 1538) 69072: Clinical Services Specialist/Techni grisel ID = [id number] for MARIA DEL ROSARIO OR-TEREZA MARTIENZ BASIC METABOLIC [id number] 04:45:01 Test Item Value Reference Range Interpretation [...] S NOT APPLICABLE FOR DIALYSIS PATIEN TS. Clinical Services Specialist ID - PIAYA [id number] 04:32:35 Test Item Value Reference Range Interpretation Comments PHOSPHORUS (BEAKER) (test code = 8.7 mg/dL 2.3-4.7 H 604) Clinical Services Specialist ID Darian ONEAL LHEPATIC FUNCTION [id number] 04:32:35 Test Item Value Reference Range Interpretation [...] (test code = 40 U/L 6-55 347) Clinical Services Specialist ID Darian ONEAL [id number] 04:32:34 Test Item Value Reference Range Interpretation Comments MAGNESIUM (BEAKER) (test code = 2.2 mg/dL 1.6-2.6 627) Clinical Services Specialist ID Darian ONEAL LB-type Natriuretic Factor (BNP)2021-07-08 04:16:09 Test Item Value Reference Range Interpretation Comments BNP (test code = 79917-6) 69 pg/mL 0-100 SOPHIA (test code = SOPHIA) Clinical Services Specialist ID Darian ONEAL L Lab Interpretation (test Normal code = 18549-5) [facility] (BNP)2021-07-08 04:16:09 Test Item Value Reference Range Interpretation Comments BNP (test code = 57633-8) 69 pg/mL 0-100 SOPHIA (test code = SOPHIA) Clinical Services Specialist ID Darian SAMEERAARMANDO L Lab Interpretation (test Normal code = 10911-7) [facility] Natri[facility] (BNP)2021-07-08 04:16:09 Test Item Value Reference Range Interpretation Comments BNP (test code = 25050-9) 69 pg/mL 0-100 SOPHIA (test code = SOPHIA) Clinical Services Specialist ID Darian SAMEERAARMANDO L Lab Interpretation (test Normal code = 92209-4) [facility] Natriuretic [facility] (BNP)2021-07-08 04:16:09 Test Item Value Reference Range Interpretation Comments BNP (test code = 08154-2) 69 pg/mL 0-100 SOPHIA (test code = SOPHIA) Clinical Services Specialist ID - PIAYA L Lab Interpretation (test Normal code = 29585-2) [facility] Natriuretic [facility] (BNP)2021-07-08 04:16:09 Test Item Value Reference Range Interpretation Comments BNP (test code = 14666-1) 69 pg/mL 0-100 SOPHIA (test code = SOPHIA) Clinical Services Specialist ID - PIAYA L Lab Interpretation (test Normal code = 79359-6) [facility] Natriuretic [facility] (BNP)2021-07-08 04:16:09 Test Item Value Reference Range Interpretation Comments BNP (test code = 49042-9) 69 pg/mL 0-100 SOPHIA (test code = SOPHIA) Clinical Services Specialist ID - PIAYA L Lab Interpretation (test Normal code = 32687-7) [facility] Natriuretic [facility] (BNP)2021-07-08 04:16:09 Test Item Value Reference Range Interpretation Comments BNP (test code = 12258-8) 69 pg/mL 0-100 SOPHIA (test code = SOPHIA) Clinical Services Specialist ID - PIAYA L Lab Interpretation (test Normal code = 34969-6) [facility] Natriure[facility] (BNP)2021-07-08 04:16:09 Test Item Value Reference Range Interpretation Comments BNP (test code = 75820-8) 69 pg/mL 0-100 SOPHIA (test code = SOPHIA) Clinical Services Specialist ID - PIAYA L Lab Interpretation (test Normal code = 27930-1) [facility] Natriuretic [facility] (BNP)2021-07-08 04:16:09 Test Item Value Reference Range Interpretation Comments BNP (test code = 27335-5) 69 pg/mL 0-100 SOPHIA (test code = SOPHIA) Clinical Services Specialist ID - PIAYA L Lab Interpretation (test Normal code = 92956-9) [facility] NATRIURETIC FACTOR (BNP)2021-07-08 04:16:09 Test Item Value Reference Range Interpretation Comments B-TYPE NATRIURETIC PEPTIDE (BEAKER) 69 pg/mL 0-100 (test code = 700) Clinical Services Specialist ID - PIAYA LCBC W/PLT COUNT & AUTO [id number] 04:07:18 Test Item Value Reference Range Interpretation [...] PERCENT (BEAKER) (test code = 2801) Eosinophil [id number] 22:06:29 Test Item Value Reference Range Interpretation Comments Eosinophil Smear (test code = No EOS seen No EOS seen 79442-4) Lab Interpretation (test code = Normal 96148-7) [facility]osinophil [id number] 22:06:29 Test Item Value Reference Range Interpretation Comments Eosinophil Smear (test code = No EOS seen No EOS seen 75992-2) Lab Interpretation (test code = Normal 62742-2) [facility]Eosin[facility] [id number] 22:06:29 Test Item Value Reference Range Interpretation Comments Eosinophil Smear (test code = No EOS seen No EOS seen 83732-6) Lab Interpretation (test code = Normal 36080-6) [facility]Eosinophil [id number] 22:06:29 Test Item Value Reference Range Interpretation Comments Eosinophil Smear (test code = No EOS seen No EOS seen 84299-8) Lab Interpretation (test code = Normal 24048-4) [facility] [id number] 22:06:29 Test Item Value Reference Range Interpretation Comments Eosinophil Smear (test code = No EOS seen No EOS seen 44895-6) Lab Interpretation (test code = Normal 54709-2) [facility] [id number] 22:06:29 Test Item Value Reference Range Interpretation Comments Eosinophil Smear (test code = No EOS seen No EOS seen 00994-5) Lab Interpretation (test code = Normal 95033-9) [facility] HospitalE[facility] [id number] 22:06:29 Test Item Value Reference Range Interpretation Comments Eosinophil Smear (test code = No EOS seen No EOS seen 37642-8) Lab Interpretation (test code = Normal 82746-3) [facility] HospitalEosinophil [id number] 22:06:29 Test Item Value Reference Range Interpretation Comments Eosinophil Smear (test code = No EOS seen No EOS seen 48165-0) Lab Interpretation (test code = Normal 82612-1) [facility] [id number] 22:06:29 Test Item Value Reference Range Interpretation Comments Eosinophil Smear (test code = No EOS seen No EOS seen 72959-5) Lab Interpretation (test code = Normal 16269-9) [facility] HospitalEOSINOPHIL SMEAR, [id number] 22:06:29 Test Item Value Reference Range Interpretation Comments EOSINOPHIL SMEAR, URINE (BEAKER) No EOS seen No EOS seen (test code = 1851) BASIC METABOLIC [id number] 21:49:52 Test Item Value Reference Range Interpretation [...] S NOT APPLICABLE FOR DIALYSIS PATIEN TS. Clinical Services Specialist ID - DBU/S, RENAL, [id number] 21:46:00Reason for exam:->[facility] : 1970 Sex: FFINAL REPORT TECHNIQUE: Grayscale [...] MDReport Verified Date/Time: 07/07/2021 21:46:13 Sodium, random [id number] 21:42:01 Test Item Value Reference Range Interpretation Comments Sodium Urine (test <20 meq/L code = 2955-3) SOPHIA (test code = Reference Range: No SOPHIA) NormalsOperator ID - DB [facility], random [id number] 21:42:01 Test Item Value Reference Range Interpretation Comments Sodium Urine (test <20 meq/L code = 2955-3) SOPHIA (test code = Reference Range: No SOPHIA) NormalsOperator ID - DB [facility]odium, random [id number] 21:42:01 Test Item Value Reference Range Interpretation Comments Sodium Urine (test <20 meq/L code = 2955-3) SOPHIA (test code = Reference Range: No SOPHIA) NormalsOperator ID - DB [facility], random [id number] 21:42:01 Test Item Value Reference Range Interpretation Comments Sodium Urine (test <20 meq/L code = 2955-3) SOPHIA (test code = Reference Range: No SOPHIA) NormalsOperator ID - DB [facility]odium, random [id number] 21:42:01 Test Item Value Reference Range Interpretation Comments Sodium Urine (test <20 meq/L code = 2955-3) SOPHIA (test code = Reference Range: No SOPHIA) NormalsOperator ID - DB [facility], random [id number] 21:42:01 Test Item Value Reference Range Interpretation Comments Sodium Urine (test <20 meq/L code = 2955-3) SOPHIA (test code = Reference Range: No SOPHIA) NormalsOperator ID - DB [facility]odium, random [id number] 21:42:01 Test Item Value Reference Range Interpretation Comments Sodium Urine (test <20 meq/L code = 2955-3) SOPHIA (test code = Reference Range: No SOPHIA) NormalsOperator ID - DB [facility]odium, random [id number] 21:42:01 Test Item Value Reference Range Interpretation Comments Sodium Urine (test <20 meq/L code = 2955-3) SOPHIA (test code = Reference Range: No SOPHIA) NormalsOperator ID - DB [facility]odium, random [id number] 21:42:01 Test Item Value Reference Range Interpretation Comments Sodium Urine (test <20 meq/L code = 2955-3) SOPHIA (test code = Reference Range: No SOPHIA) NormalsOperator ID - DB [facility] HospitalODIUM, RANDOM [id number] 21:42:01 Test Item Value Reference Range Interpretation Comments SODIUM URINE (BEAKER) (test code = < meq/L 243) Reference Range: No NormalsOperator ID - Creatinine, random [id number] 21:40:20 Test Item Value Reference Range Interpretation Comments Creatinine, Ur 115.4 mg/dL (test code = 2161-8) SOPHIA (test code = Reference Range: No SOPHIA) NormalsOperator ID - DB [facility] HospitalProtein, random [id number] 21:40:20 Test Item Value Reference Range Interpretation Comments Protein, Urine (test code = 64 mg/dL 0-14 H 2888-6) SOPHIA (test code = SOPHIA) Clinical Services Specialist ID - DB Lab Interpretation (test Abnormal code = 00361-4) [facility] HospitalCreatinine, random [id number] 21:40:20 Test Item Value Reference Range Interpretation Comments Creatinine, Ur 115.4 mg/dL (test code = 2161-8) SOPHIA (test code = Reference Range: No SOPHIA) NormalsOperator ID - DB [facility] HospitalProtein, random [id number] 21:40:20 Test Item Value Reference Range Interpretation Comments Protein, Urine (test code = 64 mg/dL 0-14 H 2888-6) SOPHIA (test code = SOPHIA) Clinical Services Specialist ID - DB Lab Interpretation (test Abnormal code = 53918-7) [facility] HospitalCreatinine, random [id number] 21:40:20 Test Item Value Reference Range Interpretation Comments Creatinine, Ur 115.4 mg/dL (test code = 2161-8) SOPHIA (test code = Reference Range: No SOPHIA) NormalsOperator ID - DB [facility] HospitalProtein, random [id number] 21:40:20 Test Item Value Reference Range Interpretation Comments Protein, Urine (test code = 64 mg/dL 0-14 H 2888-6) SOPHIA (test code = SOPHIA) Clinical Services Specialist ID - DB Lab Interpretation (test Abnormal code = 37132-2) [facility] HospitalCreatinine, random [id number] 21:40:20 Test Item Value Reference Range Interpretation Comments Creatinine, Ur 115.4 mg/dL (test code = 2161-8) SOPHIA (test code = Reference Range: No SOPHIA) NormalsOperator ID - DB [facility] HospitalProtein, random [id number] 21:40:20 Test Item Value Reference Range Interpretation Comments Protein, Urine (test code = 64 mg/dL 0-14 H 2888-6) SOPHIA (test code = SOPHIA) Clinical Services Specialist ID - DB Lab Interpretation (test Abnormal code = 52437-4) [facility] HospitalCreatinine, random [id number] 21:40:20 Test Item Value Reference Range Interpretation Comments Creatinine, Ur 115.4 mg/dL (test code = 2161-8) SOPHIA (test code = Reference Range: No SOPHIA) NormalsOperator ID - DB [facility] HospitalProtein, random [id number] 21:40:20 Test Item Value Reference Range Interpretation Comments Protein, Urine (test code = 64 mg/dL 0-14 H 2888-6) SOPHIA (test code = SOPHIA) Clinical Services Specialist ID - DB Lab Interpretation (test Abnormal code = 58174-8) [facility] HospitalCreatinine, random [id number] 21:40:20 Test Item Value Reference Range Interpretation Comments Creatinine, Ur 115.4 mg/dL (test code = 2161-8) SOPHIA (test code = Reference Range: No SOPHIA) NormalsOperator ID - DB [facility] HospitalProtein, random [id number] 21:40:20 Test Item Value Reference Range Interpretation Comments Protein, Urine (test code = 64 mg/dL 0-14 H 2888-6) SOPHIA (test code = SOPHIA) Clinical Services Specialist ID - DB Lab Interpretation (test Abnormal code = 58514-8) [facility] HospitalCreatinine, random [id number] 21:40:20 Test Item Value Reference Range Interpretation Comments Creatinine, Ur 115.4 mg/dL (test code = 2161-8) SOPHIA (test code = Reference Range: No SOPHIA) NormalsOperator ID - DB [facility] HospitalProtein, random [id number] 21:40:20 Test Item Value Reference Range Interpretation Comments Protein, Urine (test code = 64 mg/dL 0-14 H 2888-6) SOPHIA (test code = SOPHIA) Clinical Services Specialist ID - DB Lab Interpretation (test Abnormal code = 64645-8) [facility] HospitalCreatinine, random [id number] 21:40:20 Test Item Value Reference Range Interpretation Comments Creatinine, Ur 115.4 mg/dL (test code = 2161-8) SOPHIA (test code = Reference Range: No SOPHIA) NormalsOperator ID - DB [facility] HospitalProtein, random [id number] 21:40:20 Test Item Value Reference Range Interpretation Comments Protein, Urine (test code = 64 mg/dL 0-14 H 2888-6) SOPHIA (test code = SOPHIA) Clinical Services Specialist ID - DB Lab Interpretation (test Abnormal code = 78448-8) [facility] HospitalCreatinine, random peyqg5522-41-83 21:40:20 Test Item Value Reference Range Interpretation Comments Creatinine, Ur 115.4 mg/dL (test code = 2161-8) SOPHIA (test code = Reference Range: No SOPHIA) NormalsOperator ID - DB [facility] HospitalProtein, random kpnhu2951-44-58 21:40:20 Test Item Value Reference Range Interpretation Comments Protein, Urine (test code = 64 mg/dL 0-14 H 2888-6) SOPHIA (test code = SOPHIA) Clinical Services Specialist ID - DB Lab Interpretation (test Abnormal code = 63587-4) [facility] HospitalCREATININE, RANDOM [id number] 21:40:20 Test Item Value Reference Range Interpretation Comments CREATININE URINE (BEAKER) (test 115.4 mg/dL code = 375) Reference Range: No NormalsOperator ID - DBPROTEIN, RANDOM [id number] 21:40:20 Test Item Value Reference Range Interpretation Comments PROTEIN, URINE (BEAKER) (test code = 64 mg/dL 0-14 H 1569) Clinical Services Specialist ID - DBUrinalysis w/Lvuhaynjsbj6992-23-06 21:27:09 Test Item Value Reference Range Interpretation Comments Color, UA (test code Yellow = 5778-6) Clarity, UA (test Cloudy code = 5767-9) Specific [place], UA 1.018 1.001-1.035 (test code = 5811-5) pH, UA (test code = 5.5 5.0-8.0 5803-2) Protein, UA (test 50 mg/dL Negative A code = 89835-8) Glucose, UA (test Negative Negative code = 365) Ketones, UA (test Negative Negative code = 2514-8) Bilirubin, UA (test Positive Negative A code = 48361-0) Blood, UA (test code Small Negative A = 26694-2) Nitrite, UA (test Negative Negative code = 5802-4) Leukocytes, UA (test Large Negative A code = 5799-2) Urobilinogen, UA 0.2 mg/dL 0.2-1.0 (test code = 95423-1) RBC, UA (test code = 6 See_Comment [Autom ated 76723-3) message] The system which generated this result [...] . Bacteria, UA (test Many code = 86490-2) Mucus (test code = Occasional 8247-9) Squam Epithel, UA 8 See_Comment [Automate d (test code = 01101-7) messag e] The system which generated this result transmitted reference range : /HPF. The reference range was not used to interpret this result as normal/abnormal . Crystals, Urine (test None Seen code = 45475-0) Specimen Source (test code = 2795) SOPHIA (test code = SOPHIA) Clinical Services Specialist ID - [auto]Clinical Services Specialist ID - tech Lab Interpretation Abnormal (test code = 75840-5) [facility] HospitalUrinalysis w/Qiosgvkjgao2637-00-92 21:27:09 Test Item Value Reference Range Interpretation Comments Color, UA (test code Yellow = 5778-6) Clarity, UA (test Cloudy code = 5767-9) Specific [place], UA 1.018 1.001-1.035 (test code = 5811-5) pH, UA (test code = 5.5 5.0-8.0 5803-2) Protein, UA (test 50 mg/dL Negative A code = 18851-5) Glucose, UA (test Negative Negative code = 365) Ketones, UA (test Negative Negative code = 2514-8) Bilirubin, UA (test Positive Negative A code = 91405-9) Blood, UA (test code Small Negative A = 15564-7) Nitrite, UA (test Negative Negative code = 5802-4) Leukocytes, UA (test Large Negative A code = 5799-2) Urobilinogen, UA 0.2 mg/dL 0.2-1.0 (test code = 42457-8) RBC, UA (test code = 6 See_Comment [Autom ated 34941-9) message] The system which generated this result [...] . Bacteria, UA (test Many code = 34551-7) Mucus (test code = Occasional 8247-9) Squam Epithel, UA 8 See_Comment [Automate d (test code = 13006-0) messag e] The system which generated this result transmitted reference range : /HPF. The reference range was not used to interpret this result as normal/abnormal . Crystals, Urine (test None Seen code = 30047-3) Specimen Source (test code = 2795) SOPHIA (test code = SOPHIA) Clinical Services Specialist ID - [auto]Clinical Services Specialist ID - tech Lab Interpretation Abnormal (test code = 33285-2) [facility]Urinalysis w/Hynqcjhvydy8327-94-69 21:27:09 Test Item Value Reference Range Interpretation Comments Color, UA (test code Yellow = 5778-6) Clarity, UA (test Cloudy code = 5767-9) Specific [place], UA 1.018 1.001-1.035 (test code = 5811-5) pH, UA (test code = 5.5 5.0-8.0 5803-2) Protein, UA (test 50 mg/dL Negative A code = 13689-8) Glucose, UA (test Negative Negative code = 365) Ketones, UA (test Negative Negative code = 2514-8) Bilirubin, UA (test Positive Negative A code = 69658-2) Blood, UA (test code Small Negative A = 84918-9) Nitrite, UA (test Negative Negative code = 5802-4) Leukocytes, UA (test Large Negative A code = 5799-2) Urobilinogen, UA 0.2 mg/dL 0.2-1.0 (test code = 99555-0) RBC, UA (test code = 6 See_Comment [Autom ated 28496-6) message] The system which generated this result [...] . Bacteria, UA (test Many code = 03182-4) Mucus (test code = Occasional 8247-9) Squam Epithel, UA 8 See_Comment [Automate d (test code = 99430-6) messag e] The system which generated this result transmitted reference range : /HPF. The reference range was not used to interpret this result as normal/abnormal . Crystals, Urine (test None Seen code = 47201-2) Specimen Source (test code = 2795) SOPHIA (test code = SOPHIA) Clinical Services Specialist ID - [auto]Clinical Services Specialist ID - tech Lab Interpretation Abnormal (test code = 62197-1) [facility]Urinalysis w/Lamnuskrweb6112-11-98 21:27:09 Test Item Value Reference Range Interpretation Comments Color, UA (test code Yellow = 5778-6) Clarity, UA (test Cloudy code = 5767-9) Specific [place], UA 1.018 1.001-1.035 (test code = 5811-5) pH, UA (test code = 5.5 5.0-8.0 5803-2) Protein, UA (test 50 mg/dL Negative A code = 74294-3) Glucose, UA (test Negative Negative code = 365) Ketones, UA (test Negative Negative code = 2514-8) Bilirubin, UA (test Positive Negative A code = 42111-2) Blood, UA (test code Small Negative A = 75694-5) Nitrite, UA (test Negative Negative code = 5802-4) Leukocytes, UA (test Large Negative A code = 5799-2) Urobilinogen, UA 0.2 mg/dL 0.2-1.0 (test code = 22343-4) RBC, UA (test code = 6 See_Comment [Autom ated 98982-3) message] The system which generated this result [...] . Bacteria, UA (test Many code = 12964-1) Mucus (test code = Occasional 8247-9) Squam Epithel, UA 8 See_Comment [Automate d (test code = 65650-3) messag e] The system which generated this result transmitted reference range : /HPF. The reference range was not used to interpret this result as normal/abnormal . Crystals, Urine (test None Seen code = 27785-0) Specimen Source (test code = 2795) SOPHIA (test code = SOPHIA) Clinical Services Specialist ID - [auto]Clinical Services Specialist ID - tech Lab Interpretation Abnormal (test code = 71348-9) [facility] w/Pehfxlynbfc3952-60-01 21:27:09 Test Item Value Reference Range Interpretation Comments Color, UA (test code Yellow = 5778-6) Clarity, UA (test Cloudy code = 5767-9) Specific [place], UA 1.018 1.001-1.035 (test code = 5811-5) pH, UA (test code = 5.5 5.0-8.0 5803-2) Protein, UA (test 50 mg/dL Negative A code = 11542-4) Glucose, UA (test Negative Negative code = 365) Ketones, UA (test Negative Negative code = 2514-8) Bilirubin, UA (test Positive Negative A code = 72594-3) Blood, UA (test code Small Negative A = 71467-2) Nitrite, UA (test Negative Negative code = 5802-4) Leukocytes, UA (test Large Negative A code = 5799-2) Urobilinogen, UA 0.2 mg/dL 0.2-1.0 (test code = 09727-8) RBC, UA (test code = 6 See_Comment [Autom ated 10125-5) message] The system which generated this result [...] . Bacteria, UA (test Many code = 13585-8) Mucus (test code = Occasional 8247-9) Squam Epithel, UA 8 See_Comment [Automate d (test code = 67321-1) messag e] The system which generated this result transmitted reference range : /HPF. The reference range was not used to interpret this result as normal/abnormal . Crystals, Urine (test None Seen code = 70788-7) Specimen Source (test code = 2795) SOPHIA (test code = SOPHIA) Clinical Services Specialist ID - [auto]Clinical Services Specialist ID - tech Lab Interpretation Abnormal (test code = 60455-8) [facility] w/Dktzeyfhzpw5783-85-34 21:27:09 Test Item Value Reference Range Interpretation Comments Color, UA (test code Yellow = 5778-6) Clarity, UA (test Cloudy code = 5767-9) Specific [place], UA 1.018 1.001-1.035 (test code = 5811-5) pH, UA (test code = 5.5 5.0-8.0 5803-2) Protein, UA (test 50 mg/dL Negative A code = 34468-2) Glucose, UA (test Negative Negative code = 365) Ketones, UA (test Negative Negative code = 2514-8) Bilirubin, UA (test Positive Negative A code = 13505-0) Blood, UA (test code Small Negative A = 86350-7) Nitrite, UA (test Negative Negative code = 5802-4) Leukocytes, UA (test Large Negative A code = 5799-2) Urobilinogen, UA 0.2 mg/dL 0.2-1.0 (test code = 36759-0) RBC, UA (test code = 6 See_Comment [Autom ated 61621-9) message] The system which generated this result [...] . Bacteria, UA (test Many code = 49662-1) Mucus (test code = Occasional 8247-9) Squam Epithel, UA 8 See_Comment [Automate d (test code = 65607-9) messag e] The system which generated this result transmitted reference range : /HPF. The reference range was not used to interpret this result as normal/abnormal . Crystals, Urine (test None Seen code = 30334-3) Specimen Source (test code = 2795) SOPHIA (test code = SOPHIA) Clinical Services Specialist ID - [auto]Clinical Services Specialist ID - tech Lab Interpretation Abnormal (test code = 95543-6) [facility] w/Gjgysgxunnt7288-65-13 21:27:09 Test Item Value Reference Range Interpretation Comments Color, UA (test code Yellow = 5778-6) Clarity, UA (test Cloudy code = 5767-9) Specific [place], UA 1.018 1.001-1.035 (test code = 5811-5) pH, UA (test code = 5.5 5.0-8.0 5803-2) Protein, UA (test 50 mg/dL Negative A code = 67990-1) Glucose, UA (test Negative Negative code = 365) Ketones, UA (test Negative Negative code = 2514-8) Bilirubin, UA (test Positive Negative A code = 22141-7) Blood, UA (test code Small Negative A = 73715-9) Nitrite, UA (test Negative Negative code = 5802-4) Leukocytes, UA (test Large Negative A code = 5799-2) Urobilinogen, UA 0.2 mg/dL 0.2-1.0 (test code = 56880-1) RBC, UA (test code = 6 See_Comment [Autom ated 25880-4) message] The system which generated this result [...] . Bacteria, UA (test Many code = 33968-4) Mucus (test code = Occasional 8247-9) Squam Epithel, UA 8 See_Comment [Automate d (test code = 20629-4) messag e] The system which generated this result transmitted reference range : /HPF. The reference range was not used to interpret this result as normal/abnormal . Crystals, Urine (test None Seen code = 71523-0) Specimen Source (test code = 2795) SOPHIA (test code = SOPHIA) Clinical Services Specialist ID - [auto]Clinical Services Specialist ID - tech Lab Interpretation Abnormal (test code = 17047-7) [facility] w/Pwvfsabaaly9918-81-69 21:27:09 Test Item Value Reference Range Interpretation Comments Color, UA (test code Yellow = 5778-6) Clarity, UA (test Cloudy code = 5767-9) Specific [place], UA 1.018 1.001-1.035 (test code = 5811-5) pH, UA (test code = 5.5 5.0-8.0 5803-2) Protein, UA (test 50 mg/dL Negative A code = 77003-9) Glucose, UA (test Negative Negative code = 365) Ketones, UA (test Negative Negative code = 2514-8) Bilirubin, UA (test Positive Negative A code = 04922-3) Blood, UA (test code Small Negative A = 41046-3) Nitrite, UA (test Negative Negative code = 5802-4) Leukocytes, UA (test Large Negative A code = 5799-2) Urobilinogen, UA 0.2 mg/dL 0.2-1.0 (test code = 62911-3) RBC, UA (test code = 6 See_Comment [Autom ated 94184-2) message] The system which generated this result [...] . Bacteria, UA (test Many code = 46209-0) Mucus (test code = Occasional 8247-9) Squam Epithel, UA 8 See_Comment [Automate d (test code = 05886-0) messag e] The system which generated this result transmitted reference range : /HPF. The reference range was not used to interpret this result as normal/abnormal . Crystals, Urine (test None Seen code = 46898-7) Specimen Source (test code = 2795) SOPHIA (test code = SOPHIA) Clinical Services Specialist ID - [auto]Clinical Services Specialist ID - tech Lab Interpretation Abnormal (test code = 21919-1) [facility] w/Ctkbmnjkccz0158-88-79 21:27:09 Test Item Value Reference Range Interpretation Comments Color, UA (test code Yellow = 5778-6) Clarity, UA (test Cloudy code = 5767-9) Specific [place], UA 1.018 1.001-1.035 (test code = 5811-5) pH, UA (test code = 5.5 5.0-8.0 5803-2) Protein, UA (test 50 mg/dL Negative A code = 84878-5) Glucose, UA (test Negative Negative code = 365) Ketones, UA (test Negative Negative code = 2514-8) Bilirubin, UA (test Positive Negative A code = 79202-5) Blood, UA (test code Small Negative A = 24550-7) Nitrite, UA (test Negative Negative code = 5802-4) Leukocytes, UA (test Large Negative A code = 5799-2) Urobilinogen, UA 0.2 mg/dL 0.2-1.0 (test code = 13971-3) RBC, UA (test code = 6 See_Comment [Autom ated 09813-6) message] The system which generated this result [...] . Bacteria, UA (test Many code = 74832-1) Mucus (test code = Occasional 8247-9) Squam Epithel, UA 8 See_Comment [Automate d (test code = 92675-9) messag e] The system which generated this result transmitted reference range : /HPF. The reference range was not used to interpret this result as normal/abnormal . Crystals, Urine (test None Seen code = 29741-2) Specimen Source (test code = 2795) SOPHIA (test code = SOPHIA) Clinical Services Specialist ID - [auto]Clinical Services Specialist ID - tech Lab Interpretation Abnormal (test code = 76131-9) [facility]IN[facility]YSIS W/ [id number] 21:27:09 Test Item Value Reference Range Interpretation [...] = 1521) SOURCE(BEAKER) (test code = 2795) Clinical Services Specialist ID - [auto]Clinical Services Specialist ID - techPOCT-GLUCOSE [id number] 21:26:57 Test Item Value Reference Range Interpretation Comments POC-GLUCOSE METER 116 mg/dL 70-110 H : TESTED A T [facility] 6720 (BEAKER) (test code = [place], 1538) 17809: Clinical Services Specialist/Techni grisel ID = [id number] for CR SAMSON ASIA BASIC METABOLIC [id number] 14:46:24 Test Item Value Reference Range Interpretation [...] S NOT APPLICABLE FOR DIALYSIS PATIEN TS. Clinical Services Specialist ID - PIARMANDO LHEPATIC FUNCTION [id number] 14:39:41 Test Item Value Reference Range Interpretation [...] (test code = 52 U/L 6-55 347) Clinical Services Specialist ID - PIARMANDO LCBC W/PLT COUNT & AUTO EIINIEQBNQBE8882-00-65 14:11:43 Test Item Value Reference Range Interpretation [...] PERCENT (BEAKER) (test code = 2801) POCT-GLUCOSE [id number] 11:36:30 Test Item Value Reference Range Interpretation Comments POC-GLUCOSE METER 141 mg/dL 70-110 H : TESTED A T [facility] 6720 (BEAKER) (test code = K[place], 1538) 27640: Clinical Services Specialist/Techni grisel ID = [id number] for NARCISA MACARIO SARS-COV2/RT-PCR ([facility])2021-06-26 17:53:52 Test Item Value Reference Range Interpretation Comments SARS-COV2/RT-PCR (test code = Negative Negative 1382978) Negative result for this test determines that [...] Healthcare Providers:[email or web address]://www.molecular.rosado/fabien/RT SARS-CoV-2 HCP Fact Sheet 51- 045305.pdfFact Sheet for Healthcare Patients:[email or web address]://www.molecular.rosado/fabien/RT SARS-CoV-2 Patient Fact Sheet EN [id number].pdfPOCT-GLUCOSE [id number] 08:25:03 Test Item Value Reference Range Interpretation Comments POC-GLUCOSE METER 101 mg/dL 70-110 : TESTED A T [facility] 6720 (BEAKER) (test code = K[place], 1538) 22584: Clinical Services Specialist/Techni grisel ID = [id number] for EMMIE JOHNSON BASIC METABOLIC [id number] 06:11:31 Test Item Value Reference Range Interpretation [...] S NOT APPLICABLE FOR DIALYSIS PATIEN TS. Clinical Services Specialist ID Darian GREER WSpecimen slightly rxekakxFCYVBYSHN8839-85-43 06:11:30 Test Item Value Reference Range Interpretation Comments MAGNESIUM (BEAKER) (test code = 1.9 mg/dL 1.6-2.6 627) Clinical Services Specialist ID Darian GREER [id number] 06:11:30 Test Item Value Reference Range Interpretation Comments PHOSPHORUS (BEAKER) (test code = 2.4 mg/dL 2.3-4.7 604) Clinical Services Specialist ID - PERCY WCALCIUM, [id number] 05:41:30 Test Item Value Reference Range Interpretation Comments CALCIUM IONIZED (BEAKER) (test 1.07 mmol/L 1.12-1.27 L code = 698) PH, BLOOD (BEAKER) (test code = 7.40 1810) CBC W/PLT COUNT & AUTO [id number] 05:27:48 Test Item Value Reference Range Interpretation [...] PERCENT (BEAKER) (test code = 2801) POCT-GLUCOSE [id number] 21:29:40 Test Item Value Reference Range Interpretation Comments POC-GLUCOSE METER 93 mg/dL 70-110 : TESTED Melo Isabel [facility] 6720 (BEAKER) (test code = KENYA SANT[place], 1538) 94146: Clinical Services Specialist/Techni grisel ID = [id number] for OBI UREÑA POCT-GLUCOSE [id number] 16:38:43 Test Item Value Reference Range Interpretation Comments POC-GLUCOSE METER 133 mg/dL 70-110 H : TESTED A T [facility] 6720 (ROBYN) (test code = KENYA Mcmullen [place], 1538) 65244: Clinical Services Specialist/Techni grisel ID = [id number] for JOHN BEGUM RAD, ABDOMEN/KUB, 1 VIEW [id number] 15:23:00Reason for exam:- >constipationReason for exam:->fecal impaction [facility] 1970 Sex: [...] free air is identified. Signed: Shantal Merino Verified Date/Time: 06/25/2021 15:23:29 POCT-GLUCOSE [id number] 12:17:33 Test Item Value Reference Range Interpretation Comments POC-GLUCOSE METER 138 mg/dL 70-110 H : TESTED A T [facility] 6720 (BEFELICIANO) (test code = KEN[place] QU[place]ON[place], 1538) 73642: Clinical Services Specialist/Techni grisel ID = [id number] for WILDA CAMPOVERDE POCT-GLUCOSE [id number] 08:08:33 Test Item Value Reference Range Interpretation Comments POC-GLUCOSE METER 168 mg/dL 70-110 H : TESTED A T [facility] 6720 (BEAKER) (test code = K[place] QU[place]ON[place], 1538) 20359: Clinical Services Specialist/Techni grisel ID = [id number] for WILDA CAMPOVERDE CALCIUM, [id number] 07:29:58 Test Item Value Reference Range Interpretation Comments CALCIUM IONIZED (BEAKER) (test 1.05 mmol/L 1.12-1.27 L code = 698) PH, BLOOD (BEAKER) (test code = 7.42 1810) [id number] 07:03:18 Test Item Value Reference Range Interpretation Comments PHOSPHORUS (BEAKER) (test code = 2.3 mg/dL 2.3-4.7 604) Clinical Services Specialist ID - SARAH MCOMPREHENSIVE METABOLIC [id number] 07:03:18 Test Item Value Reference Range Interpretation [...] S NOT APPLICABLE FOR DIALYSIS PATIEN TS. Clinical Services Specialist ID - SARAH MSpecimen slightly [id number] 07:03:17 Test Item Value Reference Range Interpretation Comments MAGNESIUM (BEAKER) (test code = 2.3 mg/dL 1.6-2.6 627) Clinical Services Specialist ID - SARAH MCBC W/PLT COUNT & AUTO [id number] 06:39:40 Test Item Value Reference Range Interpretation [...] PERCENT (BEAKER) (test code = 2801) POCT-GLUCOSE [id number] 21:13:40 Test Item Value Reference Range Interpretation Comments POC-GLUCOSE METER 134 mg/dL 70-110 H : TESTED A T [facility] 6720 (BEAKER) (test code = K[place], 1538) 28932: Clinical Services Specialist/Techni grisel ID = [id number] for OBI YING BASIC METABOLIC [id number] 12:42:19 Test Item Value Reference Range Interpretation [...] S NOT APPLICABLE FOR DIALYSIS PATIEN TS. Clinical Services Specialist ID - SARAH Grimerima slightly ictericCALCIUM, [id number] 12:26:54 Test Item Value Reference Range Interpretation Comments CALCIUM IONIZED (BEAKER) (test 1.05 mmol/L 1.12-1.27 L code = 698) PH, BLOOD (BEAKER) (test code = 7.42 1810) POCT-GLUCOSE [id number] 11:34:52 Test Item Value Reference Range Interpretation Comments POC-GLUCOSE METER 208 mg/dL 70-110 H : TESTED A T [facility] 6720 (BEAKER) (test code = KENYA Mcmullen [facility], 1538) 24053: Clinical Services Specialist/Techni grisel ID = [id number] for Ambika bird (pca2)Berenice Uric [id number] 10:43:33 Test Item Value Reference Range Interpretation Comments Uric Acid (test code = 13.6 mg/dL 2.6-7.2 H Speci men 3084-1) slightly hemolyzed SOPHIA (test code = SOPHIA) Clinical Services Specialist ID - SARAH [place] slightly icteric Lab Interpretation Abnormal (test code = 06249-9) [facility] [id number] 10:43:33 Test Item Value Reference Range Interpretation Comments Uric Acid (test code = 13.6 mg/dL 2.6-7.2 H Speci men 3084-1) slightly hemolyzed SOPHIA (test code = SOPHIA) Clinical Services Specialist ID - SARAH Grimerima slightly icteric Lab Interpretation Abnormal (test code = 57138-9) [facility] [id number] 10:43:33 Test Item Value Reference Range Interpretation Comments Uric Acid (test code = 13.6 mg/dL 2.6-7.2 H Speci men 3084-1) slightly hemolyzed SOPHIA (test code = SOPHIA) Clinical Services Specialist ID - SARAH MSpecimen slightly icteric Lab Interpretation Abnormal (test code = 27911-9) [facility] [id number] 10:43:33 Test Item Value Reference Range Interpretation Comments Uric Acid (test code = 13.6 mg/dL 2.6-7.2 H Speci men 3084-1) slightly hemolyzed SOPHIA (test code = SOPHIA) Clinical Services Specialist ID - SARAH Grimerima slightly icteric Lab Interpretation Abnormal (test code = 81000-7) [facility] [id number] 10:43:33 Test Item Value Reference Range Interpretation Comments Uric Acid (test code = 13.6 mg/dL 2.6-7.2 H Speci men 3084-1) slightly hemolyzed SOPHIA (test code = SOPHIA) Clinical Services Specialist ID - SARAH MSpecimen slightly icteric Lab Interpretation Abnormal (test code = 78490-5) [facility] [id number] 10:43:33 Test Item Value Reference Range Interpretation Comments Uric Acid (test code = 13.6 mg/dL 2.6-7.2 H Speci men 3084-1) slightly hemolyzed SOPHIA (test code = SOPHIA) Clinical Services Specialist ID - SARAH MSpecimen slightly icteric Lab Interpretation Abnormal (test code = 40316-8) [facility] [id number] 10:43:33 Test Item Value Reference Range Interpretation Comments Uric Acid (test code = 13.6 mg/dL 2.6-7.2 H Speci men 3084-1) slightly hemolyzed SOPHIA (test code = SOPHIA) Clinical Services Specialist ID - SARAH MSpecimen slightly icteric Lab Interpretation Abnormal (test code = 48728-5) [facility]UR[facility] [id number] 10:43:33 Test Item Value Reference Range Interpretation Comments URIC ACID (BEAKER) 13.6 mg/dL 2.6-7.2 H Specimen slightly (test code = 773) hemolyzed Clinical Services Specialist ID - SARAH MSpecimen slightly ictericPROTEIN, RANDOM [id number] 09:25:49 Test Item Value Reference Range Interpretation Comments PROTEIN, URINE (BEAKER) (test code = 44 mg/dL 0-14 H 1569) Clinical Services Specialist ID - SARAH MCREATININE, RANDOM [id number] 09:24:08 Test Item Value Reference Range Interpretation Comments CREATININE URINE (BEAKER) (test 88.9 mg/dL code = 375) Reference Range: No NormalsOperator ID - SARAH MSODIUM, RANDOM [id number] 09:24:08 Test Item Value Reference Range Interpretation [...] 1585) Rare SOURCE(BEAKER) (test code = 2795) Clinical Services Specialist ID - [auto]Clinical Services Specialist ID - [auto]Clinical Services Specialist ID - techCOMPREHENSIVE METABOLIC [id number] 06:05:44 Test Item Value Reference Range Interpretation [...] S NOT APPLICABLE FOR DIALYSIS PATIEN TS. Clinical Services Specialist ID - SARAH MSpecimen slightly ictericCreatine Kinase (CK)2021-06-24 05:53:00 Test Item Value Reference Range Interpretation Comments Total CK (test code = 23 U/L 29-200 L 2157-6) SOPHIA (test code = SOPHIA) Clinical Services Specialist ID - SARAH M Lab Interpretation (test Abnormal code = 38504-0) [facility] 05:53:00 Test Item Value Reference Range Interpretation Comments Total CK (test code = 23 U/L 29-200 L 2157-6) SOPHIA (test code = SOPHIA) Clinical Services Specialist ID - SARHA Javed Lab Interpretation (test Abnormal code = 12375-8) [facility]2021-06-24 05:53:00 Test Item Value Reference Range Interpretation Comments Total CK (test code = 23 U/L 29-200 L 2157-6) SOPHIA (test code = SOPHIA) Clinical Services Specialist ID - [facility] Lab Interpretation (test Abnormal code = 56641-1) [facility]2021-06-24 05:53:00 Test Item Value Reference Range Interpretation Comments Total CK (test code = 23 U/L 29-200 L 2157-6) SOPHIA (test code = SOPHIA) Clinical Services Specialist ID - [facility] Lab Interpretation (test Abnormal code = 41279-2) [facility]2021-06-24 05:53:00 Test Item Value Reference Range Interpretation Comments Total CK (test code = 23 U/L 29-200 L 2157-6) SOPHIA (test code = SOPHIA) Clinical Services Specialist ID [facility] Lab Interpretation (test Abnormal code = 43795-9) [facility]2021-06-24 05:53:00 Test Item Value Reference Range Interpretation Comments Total CK (test code = 23 U/L 29-200 L 2157-6) SOPHIA (test code = SOPHIA) Clinical Services Specialist ID - [facility] Lab Interpretation (test Abnormal code = 97340-1) [facility]2021-06-24 05:53:00 Test Item Value Reference Range Interpretation Comments Total CK (test code = 23 U/L 29-200 L 2157-6) SOPHIA (test code = SOPHIA) Clinical Services Specialist ID - [facility] Lab Interpretation (test Abnormal code = 41523-9) [facility] 05:53:00 Test Item Value Reference Range Interpretation Comments PHOSPHORUS (BEAKER) 7.0 mg/dL 2.3-4.7 H Specimen slightly (test code = 604) hemolyzed Clinical Services Specialist ID - [facility] MCREATINE KINASE (CK)2021-06-24 05:53:00 Test Item Value Reference Range Interpretation Comments CREATINE KINASE TOTAL (BEAKER) (test 23 U/L 29-200 L code = 380) Clinical Services Specialist ID - [facility] [id number] 05:52:59 Test Item Value Reference Range Interpretation Comments MAGNESIUM (BEAKER) 2.8 mg/dL 1.6-2.6 H Specimen slightly (test code = 627) hemolyzed Clinical Services Specialist ID - SARAH MB-TYPE NATRIURETIC FACTOR (BNP)2021-06-24 05:50:35 Test Item Value Reference Range Interpretation Comments B-TYPE NATRIURETIC PEPTIDE (BEAKER) 19 pg/mL 0-100 (test code = 700) Clinical Services Specialist ID - SARAH MCBC W/PLT COUNT & AUTO [id number] 05:45:34 Test Item Value Reference Range Interpretation [...] PERCENT (BEAKER) (test code = 2801) CALCIUM, [id number] 05:24:45 Test Item Value Reference Range Interpretation Comments CALCIUM IONIZED (BEAKER) (test 1.04 mmol/L 1.12-1.27 L code = 698) PH, BLOOD (BEAKER) (test code = 7.40 1810) POCT-GLUCOSE [id number] 21:35:49 Test Item Value Reference Range Interpretation Comments POC-GLUCOSE METER 225 mg/dL 70-110 H : TESTED A T [facility] 6720 (BEAKER) (test code = KENYA Mcmullen [facility], 1538) [address]: Clinical Services Specialist/Techni grisel ID = [id number] for OBI YING BASIC METABOLIC [id number] 20:23:04 Test Item Value Reference Range Interpretation [...] S NOT APPLICABLE FOR DIALYSIS PATIEN TS. Clinical Services Specialist ID - ADMINSpecimen slightly ictericRAD, CHEST, 1 VIEW, NON DEPT 2021-06-23 19:17:00Reason for exam:->Evaluate for edemaShould this be performed at the bedside?->YesIs the patient ?->No [facility] 1970 Sex: FFINAL REPORT TECHNIQUE: Frontal [...] MDReport Verified Date/Time: 06/23/2021 19:17:09 Reading Location: [facility] CT, [id number] 17:33:00Unlisted Reason for Exam - Click Yes and Enter Reason Below->NoIs this for enterography?->NoWill this procedure require oral contrast?->Yes[facility] : 1970 Sex: [...] liver.2. Diverticulosis without diverticulitis. Signed: Armando Peacock MDReport Verified Date/Time: 7:33:14 Reading Location: [facility] C013Y CT Body Reading Room POCT-GLUCOSE [id number] 17:19:07 Test Item Value Reference Range Interpretation Comments POC-GLUCOSE METER 202 mg/dL 70-110 H : Notified RN/MD: (ROBYN) (test code = TESTED AT [facility] 6720 1538) [facility], [address]: Clinical Services Specialist/Techni grisel ID = [id number] for EMMIE JOHNSON POCT-GLUCOSE [id number] 11:38:31 Test Item Value Reference Range Interpretation Comments POC-GLUCOSE METER 162 mg/dL 70-110 H : TESTED A T [facility] 6720 (BEAKER) (test code = [facility], 1538) [address]: Clinical Services Specialist/Techni grisel ID = [id number] for EMMIE JOHNSON [id number] 08:23:13 Test Item Value Reference Range Interpretation Comments PHOSPHORUS (BEAKER) (test code = 9.1 mg/dL 2.3-4.7 HH 604) Clinical Services Specialist ID - SARAH MOperator ID - SAMEERAAYA LPOCT-GLUCOSE [id number] 07:41:52 Test Item Value Reference Range Interpretation Comments POC-GLUCOSE METER 135 mg/dL 70-110 H : TESTED A T [facility] 6720 (BEAKER) (test code = [facility], 1538) 25953: Clinical Services Specialist/Techni grisel ID = [id number] for EMMIE JOHNSON BASIC METABOLIC [id number] 06:26:37 Test Item Value Reference Range Interpretation [...] S NOT APPLICABLE FOR DIALYSIS PATIEN TS. Clinical Services Specialist CHRAITO - SARAH MSpecimen slightly [id number] 06:08:01 Test Item Value Reference Range Interpretation Comments MAGNESIUM (BEAKER) (test code = 2.9 mg/dL 1.6-2.6 H 627) Clinical Services Specialist CHARITO PARIKHLCIUM, [id number] 04:58:45 Test Item Value Reference Range Interpretation Comments CALCIUM IONIZED (BEAKER) (test 1.08 mmol/L 1.12-1.27 L code = 698) PH, BLOOD (BEAKER) (test code = 7.40 1810) CBC W/PLT COUNT & AUTO [id number] 04:56:59 Test Item Value Reference Range Interpretation [...] PERCENT (BEAKER) (test code = 2801) POCT-GLUCOSE [id number] 21:26:27 Test Item Value Reference Range Interpretation Comments POC-GLUCOSE METER 157 mg/dL 70-110 H : TESTED A T [facility] 6720 ([facility]) (test code = KENYA Mcmullen [facility], 1538) [address]: Clinical Services Specialist/Techni grisel ID = [id number] for Ghanshyam Russell POCT-GLUCOSE [id number] 17:30:42 Test Item Value Reference Range Interpretation Comments POC-GLUCOSE METER 165 mg/dL 70-110 H : Notified RN/MD: TESTED ([facility]) (test code AT [facility] 67[address] = 1538) [facility], 7[address]: Clinical Services Specialist/Techni grisel ID = [id number] for Sing h, Harprempreet RAD, ABDOMEN/KUB, 1 VIEW [id number] 13:47:00Reason for exam:->constipation [facility] 1970 Sex: [...] Meeks Verified Date/Time: 06/22/2021 13:47:18 Reading Location: [facility] C013Y CT Body Reading Room POCT-GLUCOSE [id number] 06:59:39 Test Item Value Reference Range Interpretation Comments POC-GLUCOSE METER 114 mg/dL 70-110 H : TESTED A T [facility] 6720 (BEAKER) (test code = [facility], 1538) [address]: Clinical Services Specialist/Techni grisel ID = [id number] for JOHN BEGUM POCT-GLUCOSE [id number] 21:18:48 Test Item Value Reference Range Interpretation Comments POC-GLUCOSE METER 164 mg/dL 70-110 H : TESTED A T [facility] 6720 (BEAKER) (test code = [facility], 1538) 164[address]: Clinical Services Specialist/Techni grisel ID = [id number] for Ghanshyam Russell POCT-GLUCOSE [id number] 17:34:49 Test Item Value Reference Range Interpretation Comments POC-GLUCOSE METER 155 mg/dL 70-110 H : TESTED A T [facility] 6720 (BEAKER) (test code = [facility], 1538) [address]: Clinical Services Specialist/Techni grisel ID = [id number] for EMMIE JOHNSON HEPATIC FUNCTION [id number] 13:37:53 Test Item Value Reference Range Interpretation [...] Specimen moderately (test code = 347) hemolyzed Clinical Services Specialist ID - SARAH MSpecimen slightly ictericBASIC METABOLIC [id number] 13:37:52 Test Item Value Reference Range Interpretation [...] S NOT APPLICABLE FOR DIALYSIS PATIEN TS. Clinical Services Specialist ID - SARAH MSpecimen slightly ictericCBC W/PLT COUNT & AUTO [id number] 13:21:42 Test Item Value Reference Range Interpretation [...] PERCENT (BEAKER) (test code = 2801) POCT-GLUCOSE [id number] 12:27:38 Test Item Value Reference Range Interpretation Comments POC-GLUCOSE METER 145 mg/dL 70-110 H : TESTED A T [facility] 6720 (BEAKER) (test code = [facility], 1538) 79[address]: Clinical Services Specialist/Techni grisel ID = [id number] for MARIE ROWE, EMMIE POCT-GLUCOSE [id number] 07:47:30 Test Item Value Reference Range Interpretation Comments POC-GLUCOSE METER 103 mg/dL 70-110 : TESTED A T [facility] 6720 (BEAKER) (test code = [facility], 1538) 67474: Clinical Services Specialist/Techni grisel ID = [id number] for MA IN, CHIANNA POCT-GLUCOSE [id number] 21:11:18 Test Item Value Reference Range Interpretation Comments POC-GLUCOSE METER 137 mg/dL 70-110 H : TESTED A T [facility] 6720 (BEAKER) (test code = [facility], 1538) 58167: Clinical Services Specialist/Techni grisel ID = [id number] for SHYLA KRAUS POCT-GLUCOSE [id number] 17:18:01 Test Item Value Reference Range Interpretation Comments POC-GLUCOSE METER 102 mg/dL 70-110 : TESTED A T [facility] 6720 (BEAKER) (test code = [facility], 1538) 97377: Clinical Services Specialist/Techni grisel ID = [id number] for MA RTIN, CHIANNA POCT-GLUCOSE [id number] 08:06:40 Test Item Value Reference Range Interpretation Comments POC-GLUCOSE METER 143 mg/dL 70-110 H : TESTED A T [facility] 6720 (BEAKER) (test code = [facility], 1538) 97144: Clinical Services Specialist/Techni grisel ID = [id number] for Ambika bird (pca2), Berenice RAD, ABDOMEN/KUB, 1 VIEW [id number] 02:19:00Reason for exam:- >vomittingShould this be performed at the bedside?->Yes [facility] 1970 Sex: [...] Madi Terrazaseport Verified Date/Time: 06/20/2021 02:19:16 POCT-GLUCOSE [id number] 21:50:55 Test Item Value Reference Range Interpretation Comments POC-GLUCOSE METER 119 mg/dL 70-110 H : TESTED A T [facility] 6720 (Ad KnightsAKER) (test code = [facility], 1538) [address]: Clinical Services Specialist/Techni grisel ID = [id number] for La cy (pca2), Victori a POCT-GLUCOSE [id number] 16:42:04 Test Item Value Reference Range Interpretation Comments POC-GLUCOSE METER 127 mg/dL 70-110 H : TESTED A T [facility] 6720 (BEAKER) (test code = [facility], 1538) [address]: Clinical Services Specialist/Techni grisel ID = [id number] for Do minguez, Parth POCT-GLUCOSE [id number] 11:28:57 Test Item Value Reference Range Interpretation Comments POC-GLUCOSE METER 145 mg/dL 70-110 H : TESTED A T [facility] 6720 (BEAKER) (test code = [facility], 1538) 210[address]: Clinical Services Specialist/Techni grisel ID = [id number] for Do minguez, Parth SARS-COV2/RT-PCR ([facility])2021-06-19 11:06:55 Test Item Value Reference Range Interpretation Comments SARS-COV2/RT-PCR (test code = Negative Negative [id number]) Negative result for this test determines that [...] Healthcare Providers:https://www.molecular.rosado/fabien/RT SARS-CoV-2 HCP Fact Sheet 51- 696399.pdfFact Sheet for Healthcare Patients:https://www.molecular.rosado/fabien/RT SARS-CoV-2 Patient Fact Sheet EN 51-048117B5.pdfPOCT-GLUCOSE [id number] 08:11:15 Test Item Value Reference Range Interpretation Comments POC-GLUCOSE METER 134 mg/dL 70-110 H : TESTED A T [facility] 6720 [facility] (test code = KENYA SANTOS 153) [address]: Clinical Services Specialist/Techni grisel ID = [id number] for Parth Salinas HEPATIC FUNCTION [id number] 05:11:12 Test Item Value Reference Range Interpretation [...] (test code = 42 U/L 6-55 347) Clinical Services Specialist ID - JM Cespedes slightly ictericPOCT-GLUCOSE [id number] 21:42:26 Test Item Value Reference Range Interpretation Comments POC-GLUCOSE METER 115 mg/dL 70-110 H : TESTED A T [facility] 6720 (BEAKER) (test code = [facility], 153) 26142: Clinical Services Specialist/Techni grisel ID = [id number] for LOULOU GRANT POCT-GLUCOSE [id number] 17:31:40 Test Item Value Reference Range Interpretation Comments POC-GLUCOSE METER 122 mg/dL 70-110 H : TESTED A T [facility] 6720 (BEAKER) (test code = [facility], 153) 60691: Clinical Services Specialist/Techni grisel ID = [id number] for WI LLIAMS, TYNEKA POCT-GLUCOSE [id number] 11:54:32 Test Item Value Reference Range Interpretation Comments POC-GLUCOSE METER 157 mg/dL 70-110 H : TESTED A T [facility] 6720 (BEAKER) (test code = [facility], 153) 68385: Clinical Services Specialist/Techni grisel ID = [id number] for [place] LLIAMS, TYNEKA POCT-GLUCOSE [id number] 07:59:19 Test Item Value Reference Range Interpretation Comments POC-GLUCOSE METER 135 mg/dL 70-110 H : TESTED A T [facility] 6720 (BEAKER) (test code = [facility], 1538) 27841: Clinical Services Specialist/Techni grisel ID = [id number] for TESSA DAVIS HEPATIC FUNCTION [id number] 05:55:43 Test Item Value Reference Range Interpretation [...] (test code = 37 U/L 6-55 347) Clinical Services Specialist ID - JM Paradaimerima slightly ictericPOCT-GLUCOSE [id number] 21:05:46 Test Item Value Reference Range Interpretation Comments POC-GLUCOSE METER 154 mg/dL 70-110 H : TESTED A T [facility] 6720 (BEAKER) (test code [facility], = 1538) [address]: Clinical Services Specialist/Techni grisel ID = [id number] for Nilton blackburn (contract) Medardo burris POCT-GLUCOSE [id number] 17:49:03 Test Item Value Reference Range Interpretation Comments POC-GLUCOSE METER 161 mg/dL 70-110 H : TESTED A T [facility] 6720 (BEAKER) (test code = [facility], 1538) 36330: Clinical Services Specialist/Techni grisel ID = [id number] for yudiAdelaida simpson HEPATIC FUNCTION [id number] 07:21:13 Test Item Value Reference Range Interpretation [...] (test code = 33 U/L 6-55 347) Clinical Services Specialist ID - SAMEERAAYA Coy moderately ictericPOCT-GLUCOSE [id number] 20:52:43 Test Item Value Reference Range Interpretation Comments POC-GLUCOSE METER 136 mg/dL 70-110 H : Notified RN/MD: ([facility]) (test code = TESTED AT [facility] 6720 1538) [facility], [address]: Clinical Services Specialist/Techni grisel ID = [id number] for Toshia Saucedo POCT-GLUCOSE [id number] 17:42:10 Test Item Value Reference Range Interpretation Comments POC-GLUCOSE METER 160 mg/dL 70-110 H : TESTED A T [facility] 6720 ([facility]) (test code = [facility], 1538) [address]: Clinical Services Specialist/Techni grisel ID = [id number] for MIHIR DIAZ BASIC METABOLIC [id number] 17:03:54 Test Item Value Reference Range Interpretation [...] S NOT APPLICABLE FOR DIALYSIS PATIEN TS. Clinical Services Specialist ID - FSESpecimen moderately ictericTissue [id number] 14:51:42 Test Item Value Reference Range Interpretation Comments Case Report (test code Surgical Pathology = 104) Report Case: [id number] Authorizing Provider: Jessica Espinoza Collected: 06/12/2021 05:40 PM MD Meme Ordering Location: [address] Received: 06/12/2021 09:22 PM Service Pathologist: Ofe Luciano MD Specimen: Liver DIAGNOSIS (test code = e4snrCXkSAQko1scVXYcwJ 3220) FuZzEwMzNcZnRuYmpcdWMx IHtccnRmMVxlcGljOTYwMV acioShRQCybVAgA5Pblrrs DOwtGY0yPV8zkYltdTLxkN WgNADpVtXfg5krr886bVJu q1vbCFMUeozxrBg3eGckD5 5uz5B6MgvlL38lrDFiPUK5 MMOdCLMvbIIkEZDgAUK8MX RqfMByN2vkLBAjFR1auwyw LChzUUlqWECexUZ9CDXheC CqN9PzIORqCAqwLACkntc7 CsSrJt9acJNjqSztUIliZJ JkXHBsYWluXGZzMjAgTElW CBGwZWQLK4LKSArwkMAjOC 5oTVWKRs4UPTGOFF1MXBIz wBNyXE4rS7HCBXDBPT9UIf LfjZDrjDpcecDyCUyng2Zc SRmgFZFiSJ5riZfaOQJbZA 4qFTSdA8fmpX2paho5KrBc VEAySpC6USFsedK6Wnm1AI DfJVzbm1nvx3FqPNLaGKe3 cChqPwNcMVMgv5wqoqShNw IgXYDjWEZkDQIszDMnW744 t8oqf2vtwoCubKV7ARBsLL A7BLbclcNqgdA5OHrpdAKp VcB9MFcncpQtFWufxjHhnz PjJgr1HQWdX603GMU1nSlx p4naFHY0MQDvSPYiNtRiFq 6mlQJkZ931GTChSWFMMOKx yGw1OCKiufUuonGbtYBHu5 30H763z3coKOUykdWkhUvA cuuer2ufB577WNPzbPFwqm OgFmBaPEIxbKIlxVA6UOMu UI1nmzxfGVmrCDvbDTJqeo F3BEHpsIQsA7WtHRDuRG4y kppfLDD7MHuzROAoVKA7Qj EvRMXpp6Pdqun2HrCwfw9p mb29MWE6e6YxtWrfUBY4HM Q0SsIoPx5laDQcIHDnOU5x XlKdkGDfFSEaro64lUfzGX trGWO5RVQqajPzt5Qjt2mw CzXvbiHzN1feS6ZjZMNqNU LwVHGrAoMwmbSty3Yib3Jd yGVcmHf7j0zzRPIbETQolT krs8kwSBC6NHOnlTTsU5wk oG2mOCAxTC4yypbmk3hhYC gzQLriUUDkjEO6diG6IEAa cPZsM7VdhF0nMYInORbcEH Onlhq5WzTuTl7uxJYwnDwf MFxzYmtwYWdlXHBnbmNvbn RccGduZGVjXHBsYWluXHBs YWluXGYwXGZzMjRccWxcbG FuZzEwMzNcaGljaFxmMVxk KbIwPDSuWIgxG9cbBdBiCb ZbWel0ALRckWQkVLXwSvz2 GFGgePElEJNPcLzebA4cFN SebJshfI6rkFL8TPXnwmNy cDVHaH5tASPIaG0tKoX0RP CrTdt6JUI7WfVglBFsqO4= COMMENT (test code = e8gudSPqRDRqoWM4LjXkDL 5470) Aty4eve3UznMPchOMgWWii sOHusyKzsn93qYG6dC17JC 8lOEDdHhZ4KYIewiD4Qwx4 EIDuLMWpxKLaR907x2lab8 oqobQglXT2yIrgTBMbvcye FoH1FDvjCFRwrfwdWUi2JX xhNMBrpVN5RVNpgZUeG7Tw JVDuNK5iqps3NUN0XVjgTN VnNvQ6WTVtxZEdWDAmbRry NNstf350FDA2CnHyJFYhzw WryJxdmX8sFqXhOHZMiBKf dUogtZ8pv2kvRfNgBCL8hB ThvbShOiJ3gHOyKeyvrTU9 XUDna0zeYBScl91shHLakx DePLAyg6abPvPzBHBcg79p n1LjvXWbbMddFM79BWnzDB 0qnXyuydQbKAvreaC4xVB4 IGFyZSBzdHJvbmdseSBwb3 SrmRl2LFQgo5AoT4y9VJUj YSVhBC4mnTDsm5NuIAHebh jmLO0iDY6oS7C8ySBxAHLy tbBTQmWyLZdbaHEvc4enj2 NcR8kxfVniPAmgo4BmvS9o VxWyCFQexQFjl45mpYp7LP QiCUXBCSWvIXB7ozMguG6p lOckeF2mTLCdta4kp4ynRL 5pbiBhcmUgbmVnYXRpdmUu QWDDkNSkoAilbD3cbLQvGa WbipIyz8x9ZCUdETBgd4Wk xgNsdj8dGETjmGPdkl4fZG Tld65mO39xvS6bKVIlnHEt QXVvgVOrzF7ga6svmMRaGU 8vRNQcZiW5DqZjCaShzNDe tr03XAFqSMGlVVZudN3psH 0zkwLpJOgbgoAlvqEvUV36 JMDzp5yyjbvyl6YiywYuxb 4sMIDyqr14hLRvJHXxsxLd v7DibKZdlARggYGivsJzbZ NsdWRlZCBjbGluaWNhbGx5 LlxwYXJccGFyIFRoZSBmaW 9ucB5vihX6PDRrVOQsuRK6 RPZacO6uLDIqZNFugaPoDJ dhZGljaGVybGEgdmlhIFRp G7EpTOExlv1eW0Ufr68qXX IvMjcvMjAyMSBhdCAxNDUw LlxwYXJ9 CPT Code(s) (test code x3kfrSPjDWVwkRC8YgDhCM = 3357) Baf4ayv2MemXUfxNAmCGfj sYMewpMdiy97qWE3eO02NE 2hYYIsAcK9HHZmawI4Vbl3 SLMnEDYqiGBrX481c4xjw7 popeHxhFW1gSjeAXJczrfn BpG4LQplWOXppfhsVMo8NO eeDFHbzFX3DQQwoYLmL1Xn EOXsGX0rhsz8RZQ7PUagHL JhWsB3JMOqwZHsDGUdgGph LPnhl945YVQ3FkDfRLZxnq LerQwrxJ7zAqQxYWX4APNr QGlxOVwbHRGkKKe2SkWqJE ggNVxwYXJ9 CLINICAL HISTORY (test e4aezVJkIRQgeUZ1KcZzXH code = 3356) Rco0qxo1VmmJBdoPKsZEbg fOXonaIcpw31eZN6lR76XX 6lJTFzSyD3VAEiocD3Szf0 FNAfXQZpyMCuK345z7dms6 sqjxJrtXU8mVcoWVZudnnc OlH9MThuDAEipgxgHCe3XH sySBYdfSQ0RCAkeBYtL8Dn HOBjZC1rmci6KPR3TGndBT MzGjK9CHKpdLErCUFpzOex KHzoi696SUC4MeGgEIFpys TmoKeimV4oCtPgALSNgrmq cmdlZCBsaXZlciBtYXNzXH Bhcn0= SPECIMEN SOURCE (test d7qwcWKhJWSjyBV2CeBxXT code = 3377) Civ2kes6VtjXHfsJSzYMhe jHIbbySbrd29xQB3wO21OM 3cDEIoZnD2DFNgfvQ6Lpl6 LVCaKXVujBRuI731l6vlk3 enoiZwiED9pMzeMRZrrgzn TtO3ISiwLRNhpqlyVYu7KU liYNHzhVB2XXZkaDQwA5Sj WGIjDW4wcup9AYY2APhbPO BmKvT6HKKjdCClDGAxrFgx QIhxg156GWG6TePzWWRyod GeeBekiK5rMsPfFKAImGWq clxwYXJ9 GROSS DESCRIPTION (test m6twqKDjSQGvjUJ2WkRxDE code = 3366) Wrr4nmk0LrrXRqmBKzJNox qFBkdjLets50vOZ7vJ41WU 1rQBJgLmR3FIVzxjB2Bau5 OZBiJQKxePJlQ148s4woi3 pvwvJrxCO0OEKxWCVsL4Qp NG1yURQkaTIgG55shNHcIG R2MTVcENNnxCCpJMThRXV4 UPKjkGKjE1zwOVWdGC2aca otEBbkUXfoARDgdMA4TSQq uGFlO7HrEGCaIPwsYVFkab y3CxCgGp9knLCugInxQRfc YXJkXHBsYWluXGZzMjBcY2 YwAYHlT7LjGZFoBUr5JJMf vI1wMj9mtSSrjV0gM2IePW YeAPWirCUeDRZyTOLnt6b6 xZE3pTXziGO5bLXohJyfXC 6vbSMrRB3BGsJvgxCiB6Pp NPPoF5HvNXijwxWlWSByoV 0qx9yzJ1YbVF9wUNkzNNGj ZWNpbWVuIGlzIGEgdGFuIG XmwbTfacGhLIhqOODsh0As fQLsRMHqlVQmvfjyOD17ZN KvNPulIuAexU5uoFIdL1Bz EHY7KZXvOKSlN5AcROExZL zuEZXsTZ2yiHYiTMWtFQRx ZIUpTCLgxYUmdD5aqnYsru FbdJa0JURlEPFzpvHgo3Ca yLj6hJKyBXqkTNLhwS6pxW 5gVFTyUJUhlhqvQIDnV0Vu dVKmOUcfYP0tRSjKJPOfUS NDUClccGFyXHBhcmRccGFy fQ== MICROSCOPIC DESCRIPTION n3rpmHFzZSHhuQT6DrOgAA (test code = 3371) Wlf3hdk9UrlXLvfCOgZRqt aISirlWnmi49hMM1aC41CG 7yITEbVpB1ZDYdanI2Mwt9 IAIkKCLduNYqS955c6lzl8 xghvDdeYO2sVabPUDtcocq HzL7QYatZAUjhjoaLSs7BN giJWDlfWY7HZDndKUlK2Jk GQNzKD0smjm5GSK5BNkyDB XzFuE7ISQmhMVqJNSxpOjy CLbbv225NQO0CjBvISBgqe QabXnreK2gQsXeWEVNLDBd y5KuZRCxgKIzcP== SPECIAL STUDIES (test v1lhlUElISZja0fjDKWikH code = 3376) FuZzEwMzNcZnRuYmpcdWMx NRzrlwHpLCmmq1OtB4VdKf AwMFxhbnNpXGRlZmxhbmcx ZCPrMKY7qwOqCXIfSLawYE HgQZaeLm7euURtpLhuYlIg FYEtr0sbleKWsdcwgTx5p3 neJOWlQrS4zHAvPLjzU7wg dkPzaABfS4UfrSPdkCd7q2 drUnQyToW4tWBdBWvcX5sh uzDasGAsJOKtAWk3tQ23DW LwqY4maBPiKCuhfrXyPyZ1 JEliDGGsRtJ2LZGqgRVvTR AyH9ueCYBrWYwkXVNjXJpz xRBbXIW4hWjku7H7nTWkdQ XusHpcWrHfRjAxUiOZo9Ob GLk5mQalS4MyPWWyKoU2gE QgUGFyYWdyYXBoIEZvbnQ7 zNtjuuTja18lrCCcZTHbRL ZaWpKwkLrrJMMeJZMRt3Vp fDzhYFJ4uXf2sMpiQaegUU U0Que1TW0ase39nlr1aRmu SHFnlkboLqT2VNqaHBXptt hfXLs8CYbwESCdlFP0POGm fRYxM5VpXULcIM6jmnp5AY T9CFbaPZDbSpH0DKUlpJBk EKBfvVyjVKyaf134KYM0Do RhNH0oG7Nmu9C4mV8wdMJu DJPraQQvLkNoSLAqav7hgC XiDSrlu5EiQNY3yvH6lMVz eYYwEEQgSP59Fdybs4NcAm seb9NzY35fiUZ5UEmxw2zp JP2vRsB5orUaOSfvd0gykD 0pNrU8PMbtTE1gET4pXOZi yC8ckhfsWIHcSePcnkgvXG IzqJlgcgHvVs8suXloWLU4 ECwkV0xdyE2sOxW6ZJjjP3 vnkG9cSOq5MSmtcCW2LUNc dB4yDK4ehzgsd1ehBPpyTS wyVESeymX2ylE9HSSudXAq S0HmvZ2jIMOzPR1zzigmw1 giQXO1XMtaOKPlIQM1JyRw AGPqg1Nxkzh1AvAjo4EpiD PdTXntG83wh550GXVujySd J2ctqNEcsbupgZJpnurmRR fsfgY2PQFtRHVmBTxuBBEn XGZzMjJcbGFuZzEwMzNcaG ljaFxmMVxkYmNoXGYxXGxv Q3zvPzZvE4EjUQXdClLuNH hqIAvqpYJpbUBqwBY2xL0n XV3rMXZqiAXzL0MsKISzjh VybSGaQTA1rJXziKOjZQ9p YWojyAWeb3tdf6SpQ3szfD xhrCT5XC2aEBDkBNVgEUjp o9IehJ1kIjmcoUYbhrjhBG xmczIyXGxhbmcxMDMzXGhp J4wpTzMfWIJzbNqxAVepf9 NoXGYxXGNmMlxmczIyXGx0 cmNoXHBhclxwYXJccGxhaW 3xMvXvWkDtZbriYV0gZGVi I9bdpKQnPYCvDNTkD2ivUc MonH2hyLqjHFewUqWzEtKj UiGWs460ls0lVVTgdQQdpc OYhCHlkJ9dAPeiYStfCYzf yAWoOYvyj1rdKLSpy3i4wA UdFFUgpjOse4bdYPlpazLv QLCbtJMhhDWeFQVrx03hLT tabZwwoKhnYDDcg6LfpBhy y1SrDiHtKQaho4OiL00jhS JvbCBzbGlkZXMgcnVuIGFs f89bd8gyJOAnAvR2hHPuaN P5eNDftESbc6MavUdvGLRh g1ceFMZjtm0aupyooHVsy0 WirY9zzqbiUErybDOezzCk VHXqs8t0vZUaVNFgXYMtLG ybrKd2JWJgp177zm5fogA0 wLZxHLM4XQyoGVLaYTKxjc UgZXZhbHVhdGVkXHBsYWlu XGYxXGZzMjJcbGFuZzEwMz NcaGljaFxmMVxkYmNoXGYx JFxgP4uiKrFrY8CwRTDfXu EovSMsV6xffJTsYASvCVfo XGYxXGZzMjJcbGFuZzEwMz NcaGljaFxmMVxkYmNoXGYx OJfvM9srMyFeT6FeXXBjWa IgIFxwbGFpblxmMVxmczIy VJnwyvyrDAZmPEnbD3atDe JhJHDgxRneDYwqa8BaROVu FVAqDnzsvyWaQMx3wvEtHJ BhclxwbGFpblxmMVxmczIy ZNpnbgwoASGlFJmyL5pvCm PxNSCxoAzwBKyxh0GqDKKt XGNmMlxmczIyIEltbXVub2 qkx3PxX8xlvDfatKO9LSFw J4jnuEWaxHD7JRT8cY9fDD ehdoEfTUHos4VvXSJvSYQm QyH7fJ8pPHJ3PnEHxThaRZ BsYWluXGYxXGZzMjJcbGFu ZzEwMzNcaGljaFxmMVxkYm TuVWVuUFnwV5sqDrVcY5Sq HHAwVmVvjPnqDXrsEQh3Aj xwbGFpblxmMVxmczIyXGxh ecfsBKJkFMncZ9jvCmQpZJ RbbRyyHLnpr2LeXOFrWSZg MlxmczIyIHMgTWVkaWNhbC RQMO87KJLwAJWycEnrlU0m dICBEIDjglA2d8H8LAkvZI HjAHi4OScxwqYxDSUtbK6t CGChQR1rZEy1zkAnUIKlc4 OxNN9wJYZuyLUnQBR6EEDs z9NuP8Nyq6NzJOEeFFHtmd 7pgnOkHhOYdBBaFCDcfm93 DPKnYK5iJ2wrACLbBMHgdk TueNOdk3GlQOOatWV0mSNa AG8IQbZVd39bZQUzSNVMvq WrUDVgpIcjsVE8jrH2yI2r LiBUaGUgRkRBIGhhcyBkZX Keff7illSpZNImKUPfd8Lo mQIdmGJhtyEwH0Qfl1AnNQ Gvpy81XUprkFWcqt88KS7y W4Yzq8XiqX9oATvcIEVdn2 WzeLAaoQUsIGEcb4RuS6oj iipiUMwklOEvxE3nWTHrNO m0XLEfp1CyHYNds8RtPsNu nmRmCQAvKGFmQABvqZ67JZ J8xZypgVswjoEqVY6iOHEp nlCeVLGyHWGpaV5aBWobmk VfQOWuzsD6z1N8WPjlOJIf cnHdCnieRWP8ekMkziY9iA NhH2qxxoqbCYssGFTed8Fz pX0xgPVUdMNxt1KbjPFsqL BNkDAiPM3alwIhQY0aEUC4 ODggKENMSUEtODgpIGFzIH A1OMqaQxmpKBX3gtAdJXVd b1YvFNrmE9ybW20qaGubjS b4qDDcdSaasCSrcETaMOCy frC0l0S5AZQtd3EossnxIB BsYWluXGYyXGZzMjJcbGFu ZzEwMzNcaGljaFxmMlxkYm UhNLJpCBntI6mjSzVjSxXv EdpeOWN0pM== Gross assessment was [facility] performed at ([facility], = 8128) Department of Pathology, [address] [place] [address], Technical component was [facility] performed at ([facility], = 0569) Department of Pathology, [address] [place] [address], Professional component [facility] was performed at ([facility], code = 2779) Department of Pathology, [address] [place] [address], [place] [address], [facility] [id number] 14:51:42 Test Item Value Reference Range Interpretation Comments Case Report (test code Surgical Pathology = 104) Report Case: [id number] Authorizing Provider: Jessica Espinoza Collected: 06/12/2021 05:40 PM MD Meme Ordering Location: [address] Received: 06/12/2021 09:22 PM Service Pathologist: Ofe Luciano MD Specimen: Liver DIAGNOSIS (test code = [id number] 3220) FuZzEwMzNcZnRuYmpcdWMx IHtccnRmMVxlcGljOTYwMV uvhsAmUCDgkLNuC7Kvibbc NTkcSL8yGG7dhEakgFCugU FaUXBcOwVqg7dcl860wLZx c3spWAVGhtzjrOm7mFiaD2 4er0J8CkdcT01pnOPwDCF5 SLOqUYVrjWFfKJAkHUV1AF DzhFKtQ0taOHJzEY4qqmfg NApxMKjpYCMvoRY9PMKziR RlY6TzRDBaOHnlHQTgisx4 BxAwTp9osVKfsNxiDQdjNT JkXHBsYWluXGZzMjAgTElW LPTzRFOFM4RDULpobCYkSU 8mXWPSAv2NYMURFC6ZXJLi uUPmWC0hH7FZGGCVDA2SFo AvlVCnyUocudPgVWyfp4Lj IXfgWTWlVH0fwLadNHBpAP 7wPMLnI2loqP8numj2NjFk XTBnYsK8INIqauH8Jll1GO DuKPjqx4uwf7KaLYLpHPf3 aMztBvRkGVRtr8maymZzAx NcLNZcSVImVSYgsDFtB882 u8rnx2zgnwQwmRK9ZIGgAA D9PYhzmmNbsvO2OGngkHKp NcR2QRqhlqTuQXaslcYsgg WuPle5QTSoW983ABE9yOwe n9dmOPE5JLLqAICeLiFvHd 2glHKpG469PLLpVKUVLUSt fSv2NBEmisHxrqAcjCCKj9 01F907r6roMZVufnIffRsM dertd2dpB552CFWdyDRjbp EsBiGjTTEdzSEbcNF4DHIw PS1akxlvTLkoVVguESTwoo E2TYEkdUPqJ1VeSFPhTP9e qkmhNRH5TYseTZOuAXB2Ap AdNSVfg5Zejkd8EwKgqq2p zr10SXU2m6KsgVojTBB2PY Q4FcEwEd0bpXYoMZTbII4j WyFqeSCvTNEtoh29iEjdAQ jgLIM1FOJetsXqh4Klh9oc PjZyfuDoW0dmU7PsCUSyLV MxVUZzAdHskwFpl7Xno7Bt jSZsdJu0b9loJTBtVUYjmK adf4voDUI3BSPfrDGeR0pr yD8kCYFbFL8dunonh4jkRV jiGLzcFEKkdTA2feU2ASFj kPXgJ6HkxK7bGWXkGHjyQH Brogn8HtDxQz9stLOudWua MFxzYmtwYWdlXHBnbmNvbn RccGduZGVjXHBsYWluXHBs YWluXGYwXGZzMjRccWxcbG FuZzEwMzNcaGljaFxmMVxk PaNfRAXnAAwhP0nqHnAzIr XqSpx1VJCmhGTpSHBsLog3 ROHiwQTpCLZYoUpyuH0dGB WwwKqaiG9xnES4MNYcwsGy oYRGzO3mZGYYbB2zQgP8VW QpJgd6HLP5QzOhwVDpaK4= COMMENT (test code = l1ugmZPbWOWvuKD0KxUcSO 7815) Plu7qho9PtqXHovXJqNEwd hUEmmeJwjm52jUA9uQ27KB 1cLLHbWwB5PZXimvC9Waj7 ELDqJYKpvUWnI381w7otr6 cmygMmzIW4eCbaKPDhrcvd QnD1XKayUYGirwpsSWz0SX isVTZwoBC7VUXvhELqO2Pi KIDpOQ5czhz4DIR7SObkWN ScYtW9HNDprSGqLFHyyDhf IVhlf832XDC8QrFoRDXteo ZqoScrdW5lUzDfXPEElOZf xDngeS3mv4dyBvMnINW2nT BwifCdYmX1dIIgMxrtrVZ0 ELIcx6apNQXcj52ghLMmwk SjZYIpv1htQpXsADEdt98d f6XljAQyiVetQR59VEjdXE 5mvKiyajSkITopdrF8iJQ9 IGFyZSBzdHJvbmdseSBwb3 LtqKf9YKDmj9NyF3h0HFRy GKEpIU3mqYYfb6KaJVRgya jhQO6dVO2dX7P3oZKwTQWj viAVMdPiYEwweZGqn1gmy4 TcM5ycmFfqSPzcw3KgiC7p NpXnGUMwrXOza11fhMg5LJ DxAUTVCWLdEVI5orSfvD1c hEtxrF6oFWPwew0tp7hcDE 5pbiBhcmUgbmVnYXRpdmUu IYPJzYBzpKmuvT1dwNZiFz ZlfyAom9q8MKHaTIDja4Ph iuOpfp5oYOMigLMqsu1cDE Pvg32gC27baW1gDTUrnRUg ZCMywKXvnX5hs8xbvJMuUF 2dDJXvHzD7CbHwFdSibLFr yb59JZBnLJZtBYHvhR0gfP 6agqLrRFlpitKovtAjKQ91 FMHfp3iaijwua3CztaSkuf 7fDZAyyk01kNNiGDXcdmFp l6QqsQSxqRPlfCCablNdhM NsdWRlZCBjbGluaWNhbGx5 LlxwYXJccGFyIFRoZSBmaW 5ztA1divK6HOOgQQEsnNA5 LSCgwA7xVBJoZBJteqKpFN dhZGljaGVybGEgdmlhIFRp C2ArWZZyii3rG4Hye95bMT IvMjcvMjAyMSBhdCAxNDUw LlxwYXJ9 CPT Code(s) (test code q2qcyLJtBXZxlBV9JaGwQL = 3357) Qyn6okp7TjtLVdvASeSNek xMRuqiGdba90bKF6nT69VS 4nYIMtLwB1DJBvklC7Jrn1 ABDzHNNhbHJaU632d9iza8 yeqvLpvHM1vQawKDYoioyv LcP0SOemBGQqnsikKKg2IP uzOUZonAI9IXKipWAnF8Ng DLIgQW5nuqg6BMC7BCtvYN ClXoU7UOXmqXXxBKTapNvi ERzxk138YRQ8FjBtZGWgbt HgbWifyH9cDeWzKJK8LJPx DTgdXWylPVIfNYg8UpUqUH ggNVxwYXJ9 CLINICAL HISTORY (test z8myzXPwAWSvtQR8FeIlZU code = 3356) Hfq3miu8DbcPQmxRYvHAtz mSHoaiBckp35sAV0rO79SI 7fJRAhXwO0WVLzqdL4Ekx5 RXNxNGUbxAXnP076g7ikd0 ubkjWzwIB5dQpzOCLqldrb PrX7LNdwVYZugkpiNOn4PA dwMVKptDP7NPCegCAyB0Jj XVOwHZ6krto4CIF8UDsaJF JrJfK6RDGedTNbADCpsTvc HVaow839RTQ4OfRsZPPusy JaqKlcvN8xOkTmXCAFqdij cmdlZCBsaXZlciBtYXNzXH Bhcn0= SPECIMEN SOURCE (test a9zpzHWiPNXftJW7RuCpBS code = 3377) Ayy3fpx4PkzYWhqASxFEtn zKLeyuDfbm86uCB5vD44LU 7qJPMgEyH8ABXacwT4Nzg0 PJJsNOQosIWxZ109t7ned4 ngsgLtgXF1eScmRVWwbvxr LvR3BChuWYDkurstSAy8IX wmLHMxrNN3MWIppPLjD1Rl EKLuTX8eivp2RHC5CApaSB NyDiX9VLHjiLTtMIUnlTyr HSocd831OMA2HwMuWGEnup TbjUhnyE7iFlNyOJMTcETr clxwYXJ9 GROSS DESCRIPTION (test g9yqhKZaNWNgjUV7VcKhCY code = 3366) Whk1jha6NubSJkqZNeOCfe lBYzphPofx36gGO5mH53NT 0rFVLjYuR0RPVrcfD8Fpb9 BQNkWKWgkYKgI905c1cvq6 gbzgFimAC5AVSmUVXiX3Cv IW1pIWAouSHuJ93xiSIgSG D4NQWhCKAxlGHwUWCuFRK7 AMYnxNMeF7txVOUyKP0dza upKQwcCPezAOVcpBF5XXXw eWBtV2FyIHSvOZhkIWIjgs n8KaJgWq5bpKIghRjuMSpe YXJkXHBsYWluXGZzMjBcY2 MrXFFkD8VpRXUiVUy9RYEx pY4yKi2acGUiyF6qF9DvNW OlHNKmkIOuAHUdDAIgd6j2 mDZ9mPQgjUZ9nTTwrIxhRJ 1woPWdJN2KXsPuloReY2Gr MPQjD2XjRJzzgyNzUEFegM 1iy0vzY2BbNQ7hLCfhAZYm ZWNpbWVuIGlzIGEgdGFuIG RvduHshcLbQFddJDMzu0Qn dDAaRRGuiJRaryqjEB44TD CeOGfuKpVyrW2oyBYoD2Lv LUT4IOUbXCWzG3UnKMHwZF bdUJJdVZ3bkPMvFNWiGZZz WOFuZGKygQQigT6lxvFaxl PjoNf5ETQhPCHhxyUea0Nt oTm0bQNbJAndWHSyvJ4svP 3sTVCzKGXcvhadMQMnH9Zb iXBeIXdcYW8rTEgFKQDlNJ NDUClccGFyXHBhcmRccGFy fQ== MICROSCOPIC DESCRIPTION s4zpfPXoZGUvoSO6LjTmMS (test code = 3371) Lwi1wcg2AwtGApvBMrGPjq xEZjexCtml12mRB3lZ06EY 8jIDZnCnL6CSPwvdJ5Cct9 JUBvMLWqsUAwN754x0tfa6 ziumDxkQD3iQwiYXNovluj LqS9SJwhVOVlykapURk9NW qvGKAvyWZ3LQSggEAhU0Vp YUReTV7xioi6VYV6AKtvOY OlZkG4ZIPaySDiHLKxeXcs WBlbr902HED3JlNnSISiqc DygQioiI5sIcJnZQOHUXUx n8GvUMVhmBHabF== SPECIAL STUDIES (test m7oioPHaCBKed3roATHvvD code = 3376) FuZzEwMzNcZnRuYmpcdWMx FSmcvlVjGNbge6HzG6LrBa AwMFxhbnNpXGRlZmxhbmcx TYSlXEM7flHiOWScHFrdYI FiLXxnTd3eiNCmoHvzHkLm GSSwf2retbDBbgwnoIf3g2 bsODWwOoH5wWBlTXvvV6un kfRsuTOzN4KoaBEgyBd9z2 idRsYyCyB5wBImCEfeO0nj cyIxuIJqMITuMWz1nM96FG TyuV5pcSOtECrxciEyXzO3 BLubUFZpFhL9WBUawWWgTL NaX3jjDXBgAEqmXZXaQBnn iGJfDHY0sFhuy1T8qXDygG OfrIifEsCkUeMrNsULd4Bm CPx8hTsrC3PkHHTmVsO9zZ QgUGFyYWdyYXBoIEZvbnQ7 uGkuqrStu66ffWImCENxLY RlTuFdlIjdZHRaMHNXf2Uh gBguEUI0aOf8vHrvEaykGU A6Rpz2WY2yzy53sat0ePgk NYFehjluZgM2HWcgYGFtjo qnJSn1IDizJNIwnTT1ELMj yBUaB5IuBIMxII6wxmn5AO S9PCcbVTOpGjC1EVLubJEm DIGnqKtqGRvxe769KWF8Fx ZuWW6yL4Tam2W8bM9bnFUn RKOysMVhJnWnHDVjrp6anJ LlNQdkj6CyMTV4vgP6tKSp gXRcTCWdFB62Ondes3SlKx eaq3PyC15fzNZ4TDuok3uz SI9jKuT0wpVbKDzdi5zarZ 7sTpU7IXdvTP2kRB0oVKHa lR4vhkxjRABwIlGugfegPO FubJvxqeBjXw4ogPvlQWD5 NBplV8feeG7zOaU9NPjmC4 aavT0cDUv9ALmgtAL6DXSp jE5iKA9ekxvcu0omEUtoHT nvAPLiiaZ0mxM8PDMfpIWw P5KteD7hUHKnXN5lsxxws2 vlGHG2LKehIAGrTXE7FhNa OSIfs2Prdaq8FyAnr4CobQ HnUDtoU99tu840FIPhvnZx S2zfeINpigvcmKFdjxglDO lytfK3MVAjJFLyUJopRZQg XGZzMjJcbGFuZzEwMzNcaG ljaFxmMVxkYmNoXGYxXGxv F1drQiTmJ6YiOFEfUsEnFY giYEodbXYjqVMtnWF7kN8v IE3wDXGrsRWwD5FaMWFepa VgjHLdKAE2jZYlyFMaSL3c IQrzwMKin6bex8RpE4aikJ mmkWQ0VL9tLOLxMPMaZJdb g3IhfR6aBoqihNRpkxrqXT xmczIyXGxhbmcxMDMzXGhp G4hzLkIxTWOjzBmsLZjpu3 NoXGYxXGNmMlxmczIyXGx0 cmNoXHBhclxwYXJccGxhaW 7fImScArKdSkwaVK7oEANt M8folGLoIAFgJQAuH3yiGj RyxQ5thEcoGAqqJpPlOkVk SfSLw723sc1oNRXadUJszb VYsXFzvT6wHOigLIblDHth gJVpNDqlh8wsKLOku9u4zW EkQAXunsTws2tsHDesxrSc SKOgbOIfkMUgSVGrs50tZV cxzMoygBsmZPRmg2ZwyBxn f2BsQpQrHTwqa8JaQ30axA JvbCBzbGlkZXMgcnVuIGFs a41xu7jfXNFbHuH1xPIngL Q2pUSoiFMim8EamNptFIBe k6mkTYQxgf6liaktvLRgy2 AtxS7uzbjpBXknxGQotySv ODBkg2a3lTJhESMkBOZhZA yyxNu4MCZtc124yn4ghwK5 xYEpMMO5IKwbBFPkPALjqs UgZXZhbHVhdGVkXHBsYWlu XGYxXGZzMjJcbGFuZzEwMz NcaGljaFxmMVxkYmNoXGYx VEauA8aaTcBjW4YaKBGcHn UbhBPyW8rujZXgZGHwUSmv XGYxXGZzMjJcbGFuZzEwMz NcaGljaFxmMVxkYmNoXGYx FPusV4djIjIgR3EfKXEeEj IgIFxwbGFpblxmMVxmczIy MThdnoybHIMiMYpqV4xiXr GbNURtsDzjAMljp3BrACNq ONGlQsmklkOxBNg4edUbSO BhclxwbGFpblxmMVxmczIy WLfrehkwWVFlBAuoI9ivTy OuTEPqjPeqPGeba8AbSJMl XGNmMlxmczIyIEltbXVub2 uza0EkO5hmvQqukTB2WARo U5bdpSJjyRJ1RYA7qG6bXX gjlpHgAMRph5EiTPWfYMEm MdL7fG6qVFH8NsXKjGpoXL BsYWluXGYxXGZzMjJcbGFu ZzEwMzNcaGljaFxmMVxkYm EwNJMsOPhnK3ouFhFnE3Tq REImRwZpbAlhUMluXFw1Si xwbGFpblxmMVxmczIyXGxh oknzDPEcSHxgQ9jfRbLyFM ZemXbhLFoqr0OuUFLtJUYo MlxmczIyIHMgTWVkaWNhbC KNZO03LWMgRGLshSxbbA7p iTWSOJPndoU0f7G7JYlyJZ QcOEg2CSttrhElJJGmrK2h LGJoMK9kFSq3jdOyUWMox3 VdGE5iXPIsaQNuUOM6FYDy v4MdS2Ser3SeKCUoBKEyvk 5ijhCoPqNDcIPtSDTjxm97 PWYwLF4fJ1bxTMAnTNWycn ZvkQYzd1DdMBYyjGY1iKGg FT8FXzQQi93tIUIgBMHDuf SuPLJufJctvZK6grR0lE3y LiBUaGUgRkRBIGhhcyBkZX Fhus1llgZzCQAtGICnv2Fb gGBiwVMndfTyY0Fkq8CjBR Gvnn88ZCygmEIsaa32FW3m S6Obd1NiiF8vYUpmPVNqm4 IsdIYojMUuDRElg8CoB1xv ojdyKFmcpRPhsT9xBCZuQW o6GZAba3QmVAYqm4MsQaQd klWqWLMhMOCzJWPzjO21WK C3pLjvnQtwiqYtLG0mGQJq oxJvGSCjYXQmhT5mGDszkg PyWWAbckE1t3Y9CEcuOMBo ayClRzxyXYS8qoDpjwS5eM AqL0veweeqEDebIMFix1Qi bT4mlTIUlDEfn5TqoWYvpJ ZFnBFvYH7gmpKtRC3jEAJ8 ODggKENMSUEtODgpIGFzIH P3NVfqPmzuOIF9fhQdBAIz r8SrINpqL8cxG75aeGtmyN g8gATcmEzpuPDkhYBgAFIh izW8b0N5FHYgk8WftckwNE BsYWluXGYyXGZzMjJcbGFu ZzEwMzNcaGljaFxmMlxkYm YmPZYkWSpoC7cyIwVlWvUg XmvvMML2eR== Gross assessment was [facility] performed at ([facility], = 5426) Department of Pathology, [address] [place] [address], [place] [address], Technical component was [facility] performed at ([facility], = 4799) Department of Pathology, [address] [place] [address], Professional component [facility] was performed at ([facility], code = 2779) Department of Pathology, [address] [place] [address], [facility] [id number] 14:51:42 Test Item Value Reference Range Interpretation Comments Case Report (test code Surgical Pathology = 104) Report Case: [id number] Authorizing Provider: Jessica Espinoza Collected: 06/12/2021 05:40 PM MD Meme Ordering Location: [address] Received: 06/12/2021 09:22 PM Service Pathologist: Ofe Luciano MD Specimen: Liver DIAGNOSIS (test code = [id number] 3220) FuZzEwMzNcZnRuYmpcdWMx IHtccnRmMVxlcGljOTYwMV kqirEoRIVgmUEiM3Pstroo ESnvGG7yVN4rpSihzAQivK PoJWCnJoDnl2fom672cQLp m7skVKOThdnumLu0sPpeX4 3fi7P5BsxdE99rgKMtHLT4 IUBsODXdeHJbPIUuKWM0VG EcqGNbP6yjCTYrYC4tfrai VAvmQTulHKMqrIW9MEFneH YvJ3TlZUNrVYexBWMyeji0 RtSqUc9csGNbgMwlCGovNB JkXHBsYWluXGZzMjAgTElW YJVvULAQW1EIPYueeOBsMJ 3rPEKQCe3VQWVTWD6PFXPf rNLpRW5bA9OQYBKNHG2BEi LbnTNenZejqsGkQLjji1Ff ETeaYEFzWR7vxMwvDHCfYW 8qYODlT9aubC1sgwf9PuTk XJNrAhC2FQDvsgO0Fjz2TL FkLHkfz3xwk2SxIOXgQCp6 jEvxHtXnLTAsz8mtwiWwWx NoMBWdCNNzUFFpyWIbJ161 s7roy6oxymIneOJ5PKYfAG J6BSdjvuBosiW9OLhqeMXs GwT8XSrejnSaDUrovnIdyh TtWbb1HRXqE410GWW9qOsu x4sqUTR6NPPlGHVrLxZsMs 0ifIZyJ499LOVbFLFGGJIe hLb9LRRdioYukdFpjKANa1 13H175g5eeTPNramZkjVzE gynoh4lcD647DOExvTWfjy ZwMoTfPHPhvUUnxXU6PEOx PV5eurbdTWbvJTieLBJhlj W5UKBufAVgM4FuJEQjHQ9i qpsvARO4EGwjIOWcDJG9Is VoFJTrb0Zpnmx2EkXyfo0a af47GWR8k8GaoYvbGXZ7DJ V2DdCwTx9mbHFaYLSyCV6k FxJjlNSqTJRcek22uVqdEA keSNM1OMUlmbNcy1Lco3ty NzKcjbAmM1xaR9YpLHNhCB KxOEVnZuBkzzBtq6Ptn7Gy wPOauUe8p9lfUPJmVRSdiF suy9lpFUU2ZUMvpLRpA2yl fF3aFGXfWO3syfztj7flLH sxPCyyXNLfnJL5iqZ8XQKv mZDkL3KauZ6pZBMvSYukJN Nomsl6QrTuKs6eeZNeyKfx MFxzYmtwYWdlXHBnbmNvbn RccGduZGVjXHBsYWluXHBs YWluXGYwXGZzMjRccWxcbG FuZzEwMzNcaGljaFxmMVxk YlIhVMCqCGkaM3vfPdCxPo HmTqt0UMNysHHcPOGmBju1 XEPyeKQmAPXNhBlvjG8zUH GuaHyrsD6bvVU0NJXileVv rQRZwF5cEVEZnC7oEdV6WQ JkDiw5PUT8XzOehGOiwL7= COMMENT (test code = r2eprLNdACFpvFQ0EwSoBL 9148) Kuk9fwp4HldOMgrGKgEYur iQRltbGazs61dPG3tI34NP 7xOWYsSlO1PHVwhsY4Rbc2 ESNeEIZuoJDmE791s5knj3 fyleIjvKZ3pHfiIWGenpcz VcN9ZBdzZAEyzjqaTCx9SZ neQUYtjLL3TNShaSPmA2Jq HKXqTD1gjoy3HFA6YDicGO DaBzR4UZLdhAXoKCFxiCns SXjiv020LLU5OtTkUNHsrh IcmRpunD3yVhRfAOOYhPWq dLueyJ2ia8zlEmVfLJT2iR WrdfRsPiG0oXHoSwvwiBT2 IBFzg3wwAYSub49dnEJdkm ZkVIBox1siBnMwHAQqm36b k3JhgYWajAwpEA18GCspMS 1moEeiprNiPOdlrrL4nKC3 IGFyZSBzdHJvbmdseSBwb3 HclHq7SGDnx1WvZ3x5NKXz FYStIG8hfUMoi0HzJEAhjz mkGN4zRV8kR9G1dMHnVDHt xhDEKjZcJLrcmNOab2hjr6 QoY7nipWntNTdtl3BpjG3g QuAlSFIsiPFnn95wrDg6TX VzEOYBRAAfXKC6xnRdcW0i uWhlfE6sOYUsec3mk8ryIU 5pbiBhcmUgbmVnYXRpdmUu IDDVmMRwvSdzfS6paDBiLh HvmbKzg2o5KTQhOVEhe5Gb vpTtjx7tJJHdtZXwrc5eHR Ltv11tV94eaD3aRUDqvRGc RZMirDRucH2tc7kvfWTxEE 6bWGPuUfC6GsElEiGsbTIi nq24VTYdNGTeRMSjjG3weG 5kkjVrWUtrelHkrzCtQR95 TDWow5bamhvhc5BkrjRtkz 2jUXKazg25tFBzIWVisnJq o3FqzEFigHKtzJMktoWcmG NsdWRlZCBjbGluaWNhbGx5 LlxwYXJccGFyIFRoZSBmaW 4rzD4sbmO0PQGjWHOumIT2 XOIfuY9hKOTkGJQkdyWfVL dhZGljaGVybGEgdmlhIFRp U1FiTZVpfh0vZ1Xoj59eIV IvMjcvMjAyMSBhdCAxNDUw LlxwYXJ9 CPT Code(s) (test code i3jhnGDyBVWbkWB7XvGqWG = 3357) Nqt9jty2MgdNPceYZoWPdr fHRttyHbfb64tMM6zI12CY 4qUZRtMyX2UOUzcvX4Baw3 XALhPUSkvFCbJ542u3gxz3 istwNohPB5lPfmRMWgvdol HtF8MRspSPRmcjmpWJd0ME doYUSmhEY2QIKvfHLyW0Gw EVLeHN9jbmj1UUK2ZKvcCP WiGxX5WECqgIZgUOEvbFjf CCinj552PKJ2XdNjQLEcvt MxbYldoN8gVeXoOIX8VHWi QXkvPNhqIURoMVm2LeQcFU ggNVxwYXJ9 CLINICAL HISTORY (test o6rpiGBuHESqvHC4ZpNrBP code = 3356) Dsb9skr6GsfNAetYFfEWcq tLAdpfMvpi22mZN7aE54WZ 1fZUWvCdE2JRQjhmM0Nfh4 FWWtKERnoVRsG448c3sij9 svmxBiuWP1iSkzQRWokxzn RmS5SOqgTWImqkliUCt3MU zgVCXaxPG1ZWJzxJThS5Dm LIRgDV6nxnn7ZJA3GCfkBM NsWzX3VXVvqMJbZOLkyIro OZyin225JPE2TkKsFOOpld FqjEkcbO0xWaUrLVQZnbrv cmdlZCBsaXZlciBtYXNzXH Bhcn0= SPECIMEN SOURCE (test w1coeVQuZIDkxNR4NyCfEN code = 3377) Ofe7wbf4QsfOGleOCuQQdn tSTxhbJogu74bWY0mH45EH 8pMFJzCaC9GEDvciO6Vqe6 STOzNVJzzADkG511b4gvj4 qjqoQhdYE9tKccRAAursjf CyZ4NOomSFWhvqumMTt8UT okVZBdjVZ4LLFgbHTeK8No HRHjOO0vpoy1ETR6GUnhKP JzMeD2IESqtRUmEBMsoOeo TQcjf306TFU4KgGoJIDarr HxdZfevA9jVjVuYDYOqTMz clxwYXJ9 GROSS DESCRIPTION (test d4krwYNxRGAudTI6YqCrXT code = 3366) Xxh5frv8YwwIJhuIEnQGed pYWsmbHnzh86qEG4oV41FX 9jQVWjGdF9GQKzhuU5Nlm6 PEEnZVKerWJuR323k3upb2 kizsAquLG3PGLcLEOxP3Jv VJ7lPCLhiNOaZ54flQVaJF A1AAEdTPPakJIgMGDxJZD0 ZHNzfSHbP2maKYLhKE7hww wcVKirFLqiQTWuwMN7QEYd eZPoQ0QuNNJhGJlfZGTqrc p0YiDkDg8yvVKcdZmiBFot YXJkXHBsYWluXGZzMjBcY2 XxQLMuW8AzCXNcGFs5DGOh mH4hGe7jzUKclQ0yP3EcUE YwEJJdpZSqNXJcEUHom1s2 eEL3jERamAM5jNEfrCoqBF 3hcWWjSL1AFkLckzYxS2Dn IOUvO1KwBYnmjjVcNYHwhO 6ey3zpT4XvGV1hVHfaQEOe ZWNpbWVuIGlzIGEgdGFuIG FwpkNvjsUgVCbnHPMrg3Mr vTGlNLIygXCrrnyxTH15YU SaOYcuTwIswF0hbOWnT1Bi EAG3JDJlRDMkD6ZyAOAvPU taNQYnPL1lyCHbCAYnTCIx VVPuNFAbySGpaW6oemIkiv MvhIo8BOEdLNGbvjApa5Ug aRu0tDBbWCzsLGMuvA4blJ 2bQCTgNKImuodkEVTlQ2Eu rEMhCQgeHM7dZOdUMYYcHT NDUClccGFyXHBhcmRccGFy fQ== MICROSCOPIC DESCRIPTION t1rksGLlZSRofNO0YwWvAL (test code = 3371) Cxa9acu9QnuJItmHMeKCqx mBOyzpOkbn39tNM9qJ04BV 4lGHQkAoW4NCQzsnT3Prc1 PWTeRZOjpAPrH344k8nqn6 ebrwGsnIK8xXuuALTwibyb PgF1VLspAVPjktfsQGn0ID amLEDpwFA3QVTjnMXjR8Sh ZZOiWY4zrry5CUN4QGmvVD IiReN8CWGprKRvDQCgyVal BXcqn481HGS2TzDeMIZnsf GqoRyzpC7rLeDpNJEPVOWw c7PhNPWzjDHcrQ== SPECIAL STUDIES (test a4mmpZOyKARcz7acPQUfoY code = 3376) FuZzEwMzNcZnRuYmpcdWMx KVsgifMhNXwor9PtS9IfLu AwMFxhbnNpXGRlZmxhbmcx ALXbPNN4ztCsVQXlTJkwWE MxLWzhHk8rfBZajTwaCgHu WOEnb9xsnsQKyiyclPn5x4 cnZKAsBjN2pSKvTOcaY7sx emKzdLYjC3PivPBqxKa0n0 nxAvHwFcN3nVTpHPsgV9zy ijJxuMRaDBPpPCg7gD92SH PehC4ajERuFXygwiWiIqR7 RNsbRTMoQcE8EVJmmXLaOH SjS5ihDWRdVTwyBGLqSJtm aGEtRTE8aTkhw8A0bUFbqH TfmFpdWvAcFyYkXiOIc9Dc TVq1pJdmR5YmYZOsRfM7eN QgUGFyYWdyYXBoIEZvbnQ7 lElxufLof59fhIMxZPGoRN QuDnSkxJdhWMLaGTSOy6Xr cVgyNNP7xFx2eDvpFxkiPK K1Sqz1SW1fpo14kui0eZwl PYMskmqfMhR1KTubEAXamw xoKAt7YHtaGDXlsVS9IEPc tQHsA8BdYNHuRA9fksd8UH A5IYhvQTNnQgQ8FFSqpKUj CDPlmXijOPfrv275ILS5Dk EjCJ8vH4Vtf7A5iF6sqYNy XLDygPBaNxWjGYDeoy4zsA TuKWxkm5VrHBP2wkU0lXZt zHRmRSRtQX03Fkcqq3SuTf vyy9JgO53iuYJ0ZHhjf3av YG5dKmR6tqVpKOaqh4pygH 6dEiL4EWibNZ6uGJ9gKGBi iK9qpjllZNLiXzJrtlvbZU EakVbpgfZeKv5kgTsyVIX1 PRevG6qdgD4bAiR9PHfoZ9 cdyO9fBQl3MKtnxEK4OWEs jK5mST8jojjhr2xgJJqsRJ qlMAHwqhZ3fmS7MDSuvZXw T7UdxZ8wYDMxXC2vnktil6 pjJYX9KVccBQHlIHL3LxSl LSKde4Numbw6BrQlc2BwtS DuLBrkX96dj361HMSxurSr X5vslVZnbcgztLFjbkupIL kmfzT8TYKeBXYoBLtjXEAu XGZzMjJcbGFuZzEwMzNcaG ljaFxmMVxkYmNoXGYxXGxv Q7ubGsEsA8AgEQGgNsWrCL fwDIuplXLgtGRejZR8nY9a MM8cPBJixIGiG9WsSOIicj CjoOTsQFP4lESpkMTaNP4v KSkjpQKnp3ale7BaL0einT bgwUJ3KX2kXJMlJFCpSSmo e7PxbW6eHpaxlMZdkgbgAI xmczIyXGxhbmcxMDMzXGhp N0ggAvWpLDGkxWnzTGntm0 NoXGYxXGNmMlxmczIyXGx0 cmNoXHBhclxwYXJccGxhaW 4zPaVnTnBwKeaqTF6bHVRk P2ynpVWrJFFeWOTvZ4vvXi LqvY7fyPpbSRukYcNrZnRc UsWNw592ua8nEBFhpSAtkd GTkSYkkO5lAHudPOioJGcj eCSaLNmvu7jsSUWcx1n8aK DySBAflcOcs7zjVUuykfMi HOYfkSDapZAfQUIsj90aHH lhbFbpaFdsFTLtk0JgmJnu j3NhJsIpQEvbz6DqC47qhY JvbCBzbGlkZXMgcnVuIGFs v20vv9woXTPeUaA1zGVfwL G1fFJkdRNau5ZofAdlKHXo v4tdJSZyqe1ocpdslCAvt3 OssR8rzahvZOypoCOjplNt GAZpv9s2pGMgEVUaPYOlSS bcmXk0CIDhs692ti7yliL0 oCTjXRB9CWjrFRVyAMBvrw UgZXZhbHVhdGVkXHBsYWlu XGYxXGZzMjJcbGFuZzEwMz NcaGljaFxmMVxkYmNoXGYx HBtyU2vnTsHnQ9NyYMMvMk VhbTZeJ8rdyWKwCLUrHEyu XGYxXGZzMjJcbGFuZzEwMz NcaGljaFxmMVxkYmNoXGYx CJqfJ8fsRfFjC2HeVBPvHh IgIFxwbGFpblxmMVxmczIy FRurnagzCCAjJCwoE6goAb WuJPIitIguPLtji5IlWVCx NGRmShbrcvJmPIj7jxXcFH BhclxwbGFpblxmMVxmczIy MYfshrpaCICsDIsoC1uiJi UiXDVnkMwmKWaye1ZtBMDn XGNmMlxmczIyIEltbXVub2 qsv3AyA4ebtVaiiVN1VGBk V0pyyWTjlRH6VLA9zL2sSU eijcJlQPZta4YqUGSqNVDp QyW3wB9pDNA6YiLBgQgaML BsYWluXGYxXGZzMjJcbGFu ZzEwMzNcaGljaFxmMVxkYm UdEYMlGFgcG5keKyYvZ6Sc OPWkWnMdhYeyCXmwZGk4Fq xwbGFpblxmMVxmczIyXGxh xidkGXFqSDfsU7jiYtKoQI MpaPgpLQpjn1IpUSJgGJIq MlxmczIyIHMgTWVkaWNhbC AOTD53HUFiZJDkfKnjuY7a vXUNNAFvqpY1q6W3JGqiMQ YzXRk2XBiqieOxPOTcbR1b PJTvXK4wBIi0wtMyFFKhv7 PfCE4kCVXrjOFjWCH2DEEy w7YzA2Mww8AsEQNyTQJodj 8eblXwVpWEuKLnSOEusf61 ABWpDG2oM9fqFPFiDNVvor PzlGWpq1ZyWAHciXZ4rNBu LC4NGfZAb23oACYkDXWDyj CpZKYauEdkwPU9ygM9qT1m LiBUaGUgRkRBIGhhcyBkZX Akie4thuDlJVCsBSIeo3Oq qAUloDTtpaFjS5Fol1HoOZ Axqp03AXqugMXoec60VI9e S6Zcb4LynA9uWZpvBYNvp4 SjbGLvmSJpUPRhb8HtN1zn rgidKLnyaVUlgI7iCWRtJE q7TWFvu7OvFHDsm4WnCgVn rdIuAGKrIENlBJInmF68AA B5nGzpgVhylpDqGO2iXHPv cjKdATFgDNBfvI9zTAllyc BrLGNhrxB5c3Q0INkaRMEl qgJjXretBUK0qfHkpdA3kO ZnP4lmquxpMWroSIQou8Uz gB1fsEXFbSRno8CssHMryJ TSxXLfGV6npgIoTP4fYNS6 ODggKENMSUEtODgpIGFzIH D4WVdfDnwuTBB5emXwSASo n3YuQBivX3tnG95pyBpklW f3fKOzcLutrAVscAHjAGQx hlZ4x2N7FDKzb3KgrkbrUC BsYWluXGYyXGZzMjJcbGFu ZzEwMzNcaGljaFxmMlxkYm XkMZLvFAfyP5ucRwZvMzYi MpjjRVF4eW== Gross assessment was [facility] performed at ([facility], = 3485) Department of Pathology, [address] [place] [address], [place] [address], Technical component was [facility] performed at ([facility], = 2778) Department of Pathology, [address] [place] [id number], Professional component [facility]'s was performed at (test [facility], code = 2779) Department of Pathology, [address] [place] [address], [id number] 14:51:42 Test Item Value Reference Range Interpretation Comments Case Report (test code Surgical Pathology = 104) Report Case: [id number] Authorizing Provider: Jessica Espinoza Collected: 06/12/2021 05:40 PM MD Meme Ordering Location: [address] Received: 06/12/2021 09:22 PM Service Pathologist: Ofe Luciano MD Specimen: Liver DIAGNOSIS (test code = [id number] 3220) FuZzEwMzNcZnRuYmpcdWMx IHtccnRmMVxlcGljOTYwMV slypCrNFYfpDFtD0Wislqb VKpiDP3rZV5sqFjwuQPupL HhPVFyPfYie2hrz733lNTf e7zqCULLemauzHy0jNzqD2 7dx9C0VdbnF03ftKYzFCE3 KBPpRKLgtUCmSLFnRFW2XZ RjdVJiC4gfBKAxEL2oduwx XIbvUZvjFOBimJB8GKJywW PiN0ZxUKWpRVteXKXzljl5 QjUtWl8tpCHmxQsgPKsnWZ JkXHBsYWluXGZzMjAgTElW MCSyTOMZM9VGNNofcHKmTG 0iIGAQPm9CQYQOSS6PMEPa yJInLO5dL8EAOWMDDW4KLz RcuWJyjGvvnkLhIEjgq5Xa IPwnPKCwDA9wzAreFKOdAY 9lBMReS1lwyO2bsil0SzEe JDEvPgE9FTEkqmG6Vbr3QM KbFRtxq7vdp2NjWJHsCPu4 rGfuNjWwBXCqb0jspnZsNb CdVUKuFNKpOTMzmLNhB639 l5mbf7qyobCorMR4SULyBG M9QNabmqXgmhV5MRtidBFw ZrY8GZbcsnTtJDwuwnLoro AsTqj1NDVlH978ORQ9fUmw i3wlXHS9HVYkXFIuHwNtDt 3pxMEeK463NUNqBLXDUUKx xWa7ARWvnvFbckYnwUKOw3 43M017p4spMYSvhmGfdUcF auktn9pvK914TLThcIMsvx UnRiMbIPCzaJTebLV4BWFm IY7lktulDDnnHGkcZFVuhv E1RPTvxAGeM7EgUCUwKC5i ikvxKHI7UEisJRTrKUO0Ir VmSVUta7Kygdz3XdVffc8o ba34KGZ9m1HblBbtYFP0LN O0EkIbNi0ltEEgPDNhDF3u SxSooVKoLHOyhb80jSomEJ ygHDZ0YHVtdvWeu9Huu7au VwJhtdXrC8hsQ3GlOACiKK QlZNGjKeSupuZyz9Oje4Ga tXUrwHs2v4mdFDHgMPTbqR hqy0mmMNI5DSFrlFFrA1wf rD8qSAWeVJ6dvuvsr0rhPA reILbxVTRcdJF0gaH0OHXa tYCtT7IzbJ6oSDNnFFwzTD Xuabf8CrWgYp6gbOSdpSbx MFxzYmtwYWdlXHBnbmNvbn RccGduZGVjXHBsYWluXHBs YWluXGYwXGZzMjRccWxcbG FuZzEwMzNcaGljaFxmMVxk LrLfSVAtLVpoF6veAyVuHz KhCcd9KSHffUYoETUvNbc9 KWWpiZMaUELGsFrwqI6jND UvvVnnkM6mvSF9WSNwxiRn wOTAcP7bZQRZzE4uZlF5NI PaQis0JYJ6VuHorZIsaF9= COMMENT (test code = x9oxkSEaHDPgyJG8KlElZV 9206) Ten5umm0BmeFMgrBQmNCkh zBKinbTrly77vHQ7bQ28YE 4qBHNcHfS1TNYhhoH3Pmo4 XGGuEXLolMNzF859d1mkq7 rbahJloGC4cQsmSGMdrzxr IgU1QPhkIXDhgssnVVo6EJ igYWSycNI6DXJkaSAmM8Hn KKPkMY1gjqn9HQY3IZswPR PrJtL9DAFnyKRfKOZzcMpu XAysg597AOY1UqChTXXvbd QkwFgukL2gObZeIQCJkNOw mKwqoS8wr5zzCaEoYYT9hW NxtoVjWcF8fQLfEwisoJV3 HLGkc2qpGIZyn81btKVmzu HqKQPjx8rqPmXnZZYdr18s j8CtsNXnyBgsSN22KSqyVR 7tsLbydyJjMTniisT4fDT8 IGFyZSBzdHJvbmdseSBwb3 AvtZk1XFQce6WcI9e1ZXTb JSCdYG9qdAXgj0PuEYUqty xgGJ6dKN4iU5W0lJUaFKXb cvUCPfJtFTyyjBYcb1pcq2 XsO1lksRyfOXgxm2JttI2k LhSnMAIcnFEhq09xxFy7PN UkWLRRJIPcTVT6dxQgrW3l cYzbnZ4gUKDahv2bb2wuKY 5pbiBhcmUgbmVnYXRpdmUu URBIsMVypZkwzK1unKHrUl GqpzXsn6d3BSVtSCJgp6Vr xhTnvp3pEIZugITcff0sRE Ggs94dB59sbH2oKXMlqSHv XVSnhCPjdU9wp1dxyJDqKT 6oOYXwOeD2UkGzVtOgmEZf by56DCGuEJDiGLPguD2hxW 1vvvWbSLobgzZccyLeSS27 PGJbg2njsqlzv5AtjrTqhy 1mVTQzrp83nHOmZMGdknFe k2JxvFFwoWCiyUChvhFflM NsdWRlZCBjbGluaWNhbGx5 LlxwYXJccGFyIFRoZSBmaW 2wsH3qfzH2TMTdWTAhyKV7 SXIvdP3aQJPvPNImsmAqJK dhZGljaGVybGEgdmlhIFRp H8AsPRNhov1jF4Jqi35tHE IvMjcvMjAyMSBhdCAxNDUw LlxwYXJ9 CPT Code(s) (test code a2lozRJgXIIfsPH0TiSuQT = 3357) Qxy3sqq2EbhMVbjUMxNQlt mIBfhgAouy79dIC6kX56BH 9lOIBeYeQ2AESiccL2Aen3 DIHuNZBpiEQmA994z9tpp4 iibdDepZV4aQirHWXkfsla ZzZ9IYciUSKodhphHXq5UT jhRDPbwTB0ZANjlBFwG4Bk OZJmBX7rdya2OKC3YZqeWH YgFtF3ABNrzCPpWIUcjJnt BVqit186JIT3GxDxVIMeov TqpGxmhR5gHsFaPAR8AKHk SUhtGKsrHCWmSRk1ImXwYW ggNVxwYXJ9 CLINICAL HISTORY (test k8cjqMMxUQBxwFY0XdVsOX code = 3356) Bki7hoa8RccBHtmQHfKEgq rVIwyjJuaa68cPK8yW25EU 0lUYWgCaW6HGPurmF9Ggf9 KKEyKMMjrHGyQ866u9rsh9 ogioRdgPT9jXrgYNQndpzz KtE5JAucOYIyxhknCNt9GB ceFJGmkDL0KHAqjSVxM5Ph SDSfEH3zgtr0WCI8IGkyOE RuVeD0RRJniDFgHYJihBze JXqwp133KUX6YbXcIQLdwv LjpQicgU7hWlEnHAOPioee cmdlZCBsaXZlciBtYXNzXH Bhcn0= SPECIMEN SOURCE (test h7akuBMaYMGvzLB5XjTvAM code = 3377) Anv9mfp1IclMXwrFNaXWdq jNQymtYpdb08lXN7cY64MU 3hPKChQnW8WRQnnbU4Tmz3 TNIqMCNfrOGtE936z2uzc5 opoxPwpAZ0rZakWSGcwsdo HfV5OBknJVVkwmnzHVt6NQ ywOYMorSW6FMPlsFJvC6Xt HNAkKA9whrh8CBD6CDeaKP GwRiU7YMWeuBEpDSJlvEmo MLznz995ZGI2DmUuUSEjmb NuaWgynA5uRpGyPRWNsJRq clxwYXJ9 GROSS DESCRIPTION (test j2ixgIJkSUOwcGJ8YsOsUY code = 3366) Gvk8lyz4PqfQWubILaCSyj xEQobjQbyc50bNJ8oV89WQ 5lFWGhKdO5XSWkrwE7Vzu2 HXDcHFKhpQLrX140e6kvm7 omioIexJO2DCQlQPEbQ0Db LK1uBXAbcHVxJ77ufZPaJJ L1PVBaFINakOVoYIDlFKL0 PILybVRiE4okWLFgZG6kwv hsWBkvSZwgZWEhuSY9JJIl nHNhM1KxWIDcQQjaBGIhrd z1CvWgQe6xoVVlfUrdIKlf YXJkXHBsYWluXGZzMjBcY2 RzAQZtN7MpQCBeBPi6KAXg zI2qMt0sjQEntP0eF8IxLX JiQREqbNAsCSWtHIDkh4x1 iAT9sVAhrVB1wKZpxQllKO 7rrEFgOM4FUwNnvdUwB5Bd QAGiO9HsPTicsnIcHAVbmJ 2ep8kaI1CmSG2dNLyhJHWa ZWNpbWVuIGlzIGEgdGFuIG GjeyHaybGlQMqzOYKlw6Pw wONsJRZtqJGcnqxnUV86LG BuNUwqNuMpeF9wkEJjO3Bb OJQ7CLOdMTQcU8PhOGErIC kpVYIrPM6ceOBvVLZkAGFg XQZcOEBlmDLpwV3cjzCouo WtaYh1ZLDzWIEsgcJki9Vb pDw7cIZbEOidABGbrB1rsE 4nMYGhBVAqinmbOCLpT4It pCJsMAtiXO9wXYlJWIXdQR NDUClccGFyXHBhcmRccGFy fQ== MICROSCOPIC DESCRIPTION g1jvoHZyTRFijHA6KjVzLM (test code = 3371) Tia7eiu5UlnFYohBDyDIch dCGgupUcwr76rHI3vZ92QC 3cOGXdAoO2KODnnjG4Ckj2 ISZbOIXpsYFjQ017a2ook1 vtjoCrhBP0mWsuPYYtstjz HrM7QPptMBGkrxuhEBf8FE bxPNJojYS2AGUkiFJpJ5Mm MRBtYE9jqer4WRC4IYdzFU XvZuG2LXMakNRaTVJggNuf WXbap265NTY0AsFiMOKror WbjWhlsE9eFyIgXUUCLVAg g3OzNIFnbJAftU== SPECIAL STUDIES (test s7mxyTYqCLGdq0hwHGSyyS code = 3376) FuZzEwMzNcZnRuYmpcdWMx UNmhoyCkOOyfg5JyZ2XiMi AwMFxhbnNpXGRlZmxhbmcx VALiKMR2hfNcRMYsOMnxMP OjFGodTa7riSXirQzzXuAj ZIEcd3ncfwYCxscggNz7w4 bkLZCsIhV2pNHdHQmeV1un oySxrFUvQ8QsvTUuiLh5h1 lpTmCgFeO7tZGoWXsqM2hc upWjtATvVXArDDr8pU60PS ImdE8grLPfCLxltzMjMiO7 NXwdGMVsElX8BMLirQTdOW MmI9qwKXSuAVaeCTXcSSsk eFKcNTF0wVtmq6N8zQNgwY DbdXgrAtPmYuYzQyRZr5Rk KVh4aQrzX3ZgQBOqUgA2nW QgUGFyYWdyYXBoIEZvbnQ7 uPbdkxUba85ubNJqIBNaGD SxWeDepZxgDTOhBAHTl0Hq wRkkNCG9mAo0xMspKfskLB Q6Aqn0JD4mzz75hdd2cIhd SOJhptwvZlY6KKsfSDAapy lqEKd7JUicBAXxxUO6BPPq wYOvN1MnXIClHX3bswy5UT I4BQohYOHrJjC0SWOymWPm NWYyzAnkYZoej459GXY6Lr VxKQ4vW7Gfn6R3vB9vlDVr DNJrqPMmDlNqFXDsey3daA JlLYjoq0FjYXZ0ckV6yTBp wRUcKIUfUV67Aoqgp0BoQh vuh0KcO49vlKV1PCyxz7vh ME4tNzR9mjVzHKixa9iaxT 5aJpP9FHmjDS5uFJ7rGWFh jO5fcnibXGDbCuTfkbgrQR EcdZvzkoCbLc2ynRzkMLJ4 WGwqU8zcpW1pNfS0GRueP4 zbwA6eJKp2RDlcaMZ7XPYn lJ1kXB6qrmydn3esPHkiWV beACQmjoS4wcE5FRUggLLc F9LkxG5nHFNlYO6dbcgwu8 xfMBD4YBrsVZEsBPY9ZcEg FESjn8Zrovx1CyBhk9WrxF RaPVkwT33ww300YDImthLq B3nbbLAopnxxkSRamdhlZJ yeyiO0RJGoXSLnBIixQOZm XGZzMjJcbGFuZzEwMzNcaG ljaFxmMVxkYmNoXGYxXGxv A0cqTmWmF0WvVAJxLnSsLJ xbOEcbnSWpvRVmjLI5dA2x IN8zXYPzxTNhK3LpXZKwkg ChbCKmNTA3cTEirLXjZR2i UZsixKRtu3edn9IkX4ekzG cqnZM8QY4rVNYaDMHpQNuk j9XqaJ5kDfatkJKvknmmUE xmczIyXGxhbmcxMDMzXGhp Z0qyTuHiIYZvpYtjWXnmv1 NoXGYxXGNmMlxmczIyXGx0 cmNoXHBhclxwYXJccGxhaW 0uNaTeVxGqHxjqFO9kMHEw A4owpHBmWXGfTZPvK8dePk NvkY6tyYghAKzzVbWeQiWn FvTTk568zg4eIVUnoVBfrp HSzMHldB0dEZxyEMvwHQus yLStUIpqy0hrBNZut8y6aV ZxXHMechEew9rpJBxwklWv QLZmmQQzdLKkHLRzq98sLG bkfXagjSmyYYMvz2BaqLfi r3YqRtMkMTuul8UoZ32teQ JvbCBzbGlkZXMgcnVuIGFs r44du5zcZWWrAtV4wBZdnR Z4pLTubJDlw1LhrUbeJFQh c7lzIEFqlm1tbngfvHUtk9 VguN8xclxiNZcmzHBgkjTp IUVkt6h1xARpEJDeEFLaCX zfuTj0XMTgl493dx0jivP7 vAOcIRJ9ZAtdERCyBSIzbi UgZXZhbHVhdGVkXHBsYWlu XGYxXGZzMjJcbGFuZzEwMz NcaGljaFxmMVxkYmNoXGYx AEfcK1rfXvXnR6KcQGZaRe BiwAUkF5gpnTQtLHQwXQmf XGYxXGZzMjJcbGFuZzEwMz NcaGljaFxmMVxkYmNoXGYx CKorH6ckYzNzL2HvPYHdRc IgIFxwbGFpblxmMVxmczIy RFzkdlndASZsFSpuC3piIi QoDPRwcBsgYMedt0NhYTWg ENTwSluvfiDuTIp2kbUiQE BhclxwbGFpblxmMVxmczIy DBniwrdxKWRoEOdgX3zjSx OsDENuqXkgOQdlx2IpDWMw XGNmMlxmczIyIEltbXVub2 dlm1EfC2temIzcbWY1BOAg U7ahvDNsxVT0SVO1tB8hXA wmvoPfPSEbe3BxCXTeOMFm YxK7cM8cDRS3DdHJsGxqAK BsYWluXGYxXGZzMjJcbGFu ZzEwMzNcaGljaFxmMVxkYm SfEHVoKIgvV7aaDnDxN4In ZFYyLwImhEgeXQvpJUx0By xwbGFpblxmMVxmczIyXGxh mbluYLRfLVjtX3fzWzPoJL RwyYgtHFjut5KgJIIyLBYe MlxmczIyIHMgTWVkaWNhbC OKQO11IBDkCOAfyCqxvC3s lCXJTXZcdtH2r2E4DTwtJB MvFKw0PTwzpgFsVDOmkZ1d YLHmXC7hVCd8prJsALYup7 TsAW5sZJBtaAChWYD9QXCn h7GaL2Jtk3OiJNJgDLUayh 8sjxJmKpXWxDEuSWIlab75 UKNsKN6xT3mpJSUcYZKceh GbqIGji2QjIGOgiGU0bXXb TL9UGuQQw06iKZZxENGRjm YmGCVstCradQO8mvS0kE0y LiBUaGUgRkRBIGhhcyBkZX Mzhr1edyXnCPRiDKHau1Pj fBAljBFuovFkO7Jog4EhFY Hbmk81LDwemXHnmw41NO1l O1Cqw0BrtO0uJUhrHNXnu8 GohPLrbWByDFVhv9ZjV7az xsobYAsszJCgwP8oKCRaQK p5DXTaf4NcTKLji1JlEzHv geGjKNXgHKUoYNPsxH13PC H3yFtctGwabyUbTE5qATVh qaQeFZEiDMBhmD5rTTnyqq GwEERlriM3m3Y1RJccMETl oxKiXegpRRQ9szTnrgS4sJ BfI2bmcsjvYZueYHPbp2Yq hU3iaVXDlXOsc7HcrDZqtR TRqVIeUP2ktmJcYS3lYUD1 ODggKENMSUEtODgpIGFzIH A4DFkpLjmoEUI1hoKrNTCh e9KwWTswR7jnU15kjSvofT s6fCDuqFumxQYfwVAbVUMz nzQ7g2N3MCQih7TukbzbHG BsYWluXGYyXGZzMjJcbGFu ZzEwMzNcaGljaFxmMlxkYm DzVMTiRLeqU9lfYfDxLpQe BqlqRHE4vZ== Gross assessment was [facility] performed at ([facility], = 2777) Department of Pathology, [address] [place] [address], [place] [address], Technical component was [facility] performed at (test code [facility], = 2778) Department of Pathology, [address] [place] [address], Professional component [facility] was performed at (test [facility], code = 2779) Department of Pathology, [address] [place] [address], [facility] [id number] 14:51:42 Test Item Value Reference Range Interpretation Comments Case Report (test code Surgical Pathology = 104) Report Case: [id number] Authorizing Provider: Jessica Espinoza Collected: 06/12/2021 05:40 PM MD Meme Ordering Location: [address] Received: 06/12/2021 09:22 PM Service Pathologist: Ofe Luciano MD Specimen: Liver DIAGNOSIS (test code = [id number] 3220) FuZzEwMzNcZnRuYmpcdWMx IHtccnRmMVxlcGljOTYwMV iysvTgIBXorMKpG7Lgtlhs FIroNC5bJT9jyVwelYUxcS WbCXJnHeQms3enp508oQQp d1ztJTLBfqercSp4xQcdT3 1gk2V9GkcvG73glYMyEGW8 XMKuKJLidRHsHWPdKDZ0JX RtsHWxX7kjWERmQO3yddst UUqfQMhvXZAopEH8AQQyoI AtB8SeNYGfYPaeGDMjuwo3 OoTcNt8qgXEfeOajOYjvTF JkXHBsYWluXGZzMjAgTElW IJYeKQYRT9LEUZolmTMsMG 1tNYUAEv1DGXZZZN7EWWLu lANwAM0mP7APQHVCSN2HHr VxdDCeqLszjsZaVGtvf1Nr UOboJHQyHD1atRrfDYAiWA 1vHDDdD6ngcF8dboz6CzNv EHCuUcA9YSJlmrA2Jrg3VK DtIJxps7gei8LiJHIwKDz4 cTinCsOeNCBys6eqcjJbNg EfJBGzGWJmRSZseOUbF616 u7fzy7ctfsRccQC0PCSiEU Q1WHhheyIvxgN6FAawuNNl BvC1MJthhfQbYYxdgbXief DgCku6VDNqR436HBI4gOms v5imAGT6ENJzTIPoMwHnTx 6zjLEmX504ZCRxJQPFDYQw cZn8WUYzzpDfacRknNBPc2 63P015i4oqCAYbyuCdkUuE hulxl1asV818XTWvgJIdct VsRqIrCUVkjOLlkLE6VFIr PI4rrzleXZqbZYtcWMVyrr S8DVUvkMWeL6GxVVKcIT8h aqfmELO4EKufKUSiIQH8Mt KnNHOig7Fpjsb0DtAeyt8n pn34BRK5l6KcqXorSLB2DQ J6AwStEe8fhQSwAPMkWI1o ZmFtdXRuRBQapx69zTkxZY xcSNN0GPXzceRkg2Mnl2au ZdYobrVzQ8sbB0EzHIYcGK DhUCLmIhKzgeZtp8Ojr3Qa dFVycVy5v6mdAAGuMMIpoO qhp5maXBA9GDJgvYVzI8os zX1oAZScPY0axwmna5xwCX ahGQpoJZEdkMJ3nkZ8QKXm iOGgM7QgdU0bRJEjTMxvLC Duuqh0PhBqWb2pqZHhwVzv MFxzYmtwYWdlXHBnbmNvbn RccGduZGVjXHBsYWluXHBs YWluXGYwXGZzMjRccWxcbG FuZzEwMzNcaGljaFxmMVxk ExWiBSJaQEaaO6kkFjQqFi DePqj7NLWleLNvGQXrSvn3 HMKwhZRzTVVAgHoerE7wPZ MnzRdcdX2ebNN4KIOcrsNx cPTIlP3eHAODcO3qIgD4CV EyHlh9EHP0PiAefFSujM0= COMMENT (test code = c1cppMPgENKzzIK9UsKuZO 6830) Fni9kwk9BxpUWzsDBiXYjh aJFstjIgzo58fSL0wN70JR 3gHLBqVqD1RJLtkbH8Fkl6 XSJgQXPpdAAoP799x5lyi5 gtzjLdhRR0mHhaILRajzee KaT4YXmuETCsfpxqECg2FX dtIYOdcJN4LUIxfTErK0Qd BZPqKR5crwe9MWP7KWibMA GfDvD1MZEmzTZoWRQywWao CLdez561QXB1XyXuIPEpho TguFuhiV0oAzBaGCIKyZIj pUtgrJ0mc5jzSuDjLKS8nJ QyggVySrT7vNRtXszywGZ1 VSJlk0jpLMTqy08zaROeps UjYAXdo2siTnTbMTPqi60s o3OoyPRraDyeNA15SRtnIV 8tsWlmkiQnCIirazW0gFE3 IGFyZSBzdHJvbmdseSBwb3 KenEa4GVVxy3LaU1s0WGDp WIYwFD3qkUZlw5YpHNVqan waLZ6dBP0sM8H0yTClYBZw ilMJFrMlROhvuGGbc6ryu5 JcS1eapHafHUxts1CpxH3r RyDyBJOssDUbf93arLf3DO CoAPSVWNDnARI8qaWfaW0f cWtjyK8qCXMsds0ct8vkOQ 5pbiBhcmUgbmVnYXRpdmUu DDJOhRRziGvolZ0azMYuRj VxehVbq7f1VBIcHRTbq7Ql hxFtom6iKNFdrONckz0kKL Qir13lR82nyU7lKUCaqAEi QHTlzSGqrE0uq6danWPtFG 6vGXXcQuC1WuWbJlTluPIg mw11DXAeOJCgXVBveK2szC 0lirOoTNocekDvsiZrOP29 NVWcu8mnsvmlx5OjyeXiau 1bBAIvqs48mPBqGMDuasUt r3TrsBEbnYJafCLdhlFybC NsdWRlZCBjbGluaWNhbGx5 LlxwYXJccGFyIFRoZSBmaW 6kiY6xjdR2OUXuQVLsrVK5 KSJnuF1gBHMmHJPpvmFoWG dhZGljaGVybGEgdmlhIFRp J1EvFDRowc5vI5Wdg69gZA IvMjcvMjAyMSBhdCAxNDUw LlxwYXJ9 CPT Code(s) (test code d4uabTTzPBZsyML4ZaXbSK = 3357) Sci4tbn7PlpPWrqGZxEMtu bKXqkaFznm26hKD4aD11TG 0mEDJjEjL1VKDicwW4Fah1 EJRiPAQuqXYsS279h4iip7 layvYdxJP8kMwkUZQdzmys VqU7ZUwsPCKhkaewLLm1GY dsSFQufXU6FIGeeYMwE4Vo FUVvUI4zlbv2IQI3AVklAK AyHiX4ZZNjlVTpPNQvwGql FDhag446RSZ5BiRtPOUoal NqcYbjtH9aPhEuQSM1QZSb NFlnNGkbNHFuSRh0DtJhVN ggNVxwYXJ9 CLINICAL HISTORY (test i7ojwLXgCZIdgAJ2NiPjRO code = 3356) Qqf0dmp6IspTKmsNKkRPnr uTKwgaEnif55dGK5yT70SR 9iIUGbCrL8RBZlehD2Wpp7 UOIzLLSeeCGzZ162a4fqw3 enagBakZJ9nChcTWPdgznj FcI9LKniFNJgkzbbBSt7WS cuNSXcgAM9QHNmhEZpV7Gn QWBeDY1fgaz6PDI5EEbkVO SbEpO9LZJczLTvBPEdiBad PAhcd836HFA8HtTtKEKjmh FvpJzqbD2qVfVdNBGPyqrb cmdlZCBsaXZlciBtYXNzXH Bhcn0= SPECIMEN SOURCE (test a4fhwOWjLUSjuAQ9FaFwDK code = 3377) Grr1jqu7KraWAxuOXzPVif xRZituJgfl11dXN5gE26UH 0gKAZySmQ4MQQassB1Fvp6 FYVwFFMrlALfS374s3bkh9 fqbpJqpXC6mAtyNJGnykns MpA6XHbfAVFumcyoAAk4BL rlLACfyQV9WNCcuFPaK6Jo SUYvUH3crdg6IJI3YFfiIQ LdJkV8VFLubYVcXYYeuJfu XZvbz766BZZ8AfAjVNKrhy FqoVxakR2sDoRbLFWUuHYx clxwYXJ9 GROSS DESCRIPTION (test s6hoiHCcXRHvuCC1XaBxNO code = 3366) Lxs9opm6RibEDsyGNyFAmn aTXmepPsyq85iUB5fV35RD 9kZRJbChK4LHBbygO8Liq1 GYCjPPQbqPAzI075q9xvj4 ypliAeiLL3VJXePFMyY4Ap VQ5gZPWzgDItZ12zeVBaKQ D7FKQhVRHsgEJlTBLfIAS8 MYZhuVWeO2elVJVhUU9uck rhXCkeAKpzLCYpiOY6RULg xTMdC5OvUDSdFVrzBXLvhz n2EnZjMn3olXEonCazAGvk YXJkXHBsYWluXGZzMjBcY2 PvLXRiY2IdWBVtIJn1TQXv lU8uMh1mtJUofB1nQ5HyGU VwBMOhsSIkSEMsLQBeg0s7 zFX9lJEmlBR1lWSabHalED 5tkPHmRJ9XKcEvqyWbT9Xd BIUbH8IhHFdyvuZaIUEppB 3ux4twT1JaTX3fUOkvYBNj ZWNpbWVuIGlzIGEgdGFuIG AigsOojcIoICjsMWJrm2If rEAjDSIyvXAlqtngQI47VM GjTCkqUxUsiV1dtHXdR3Pr MSG2YQTfCUPeM0FpIAHbON rzCTIbHG2hoUQqGEVrRJQi EVHpCWGbhIYtwE7jogOdvt YmiTi2UOSrOXZehlYwc8Oe zJz8aUKfVVjfXEJveQ3vlR 3nFEAkCLGsrommNYFkJ8Oq bHJaGElbBR6pZCwZHOUkJD NDUClccGFyXHBhcmRccGFy fQ== MICROSCOPIC DESCRIPTION u6mdtSQzXSOmoPK9UyTvIW (test code = 3371) Ldd7yak1VqmIImkVGsUAjx tISzjxQwbh56fKP7tK45BN 7dTIDfGyC7ADZvupK2Wbr9 NMMzPRBtjGMiQ488q4sgx4 aowxKizUP9sCycINVoazqp UkV8PWomPDBhmfczHTo0MW hsAWYjoBI0AAPmgKNyW6Yr PJTfUQ3iqin7EPI8QWixIP AyKpJ1WPSsvKCsBXTbpWeb WUxzi306ARL3PmIiUCEnwc GieQsulX4lVfSkFDVAFMYl z2SlZWJhvZSokH== SPECIAL STUDIES (test a2uzlPWpRKDud6olJWJxrW code = 3376) FuZzEwMzNcZnRuYmpcdWMx LSuykqQcRQrmj3LrZ8XgTz AwMFxhbnNpXGRlZmxhbmcx EKAtDVI7xuXjJIGpHXrzLT JsNYiwDo3coKEudFeiSuSy GZPeg7hzsvKLmcqbcEa6v3 dtWSDhQrR3cOQsYIwcS4kk csNexCGqP1ZwuETcdVr1y3 xxTsFoVrG0tELaFBvnS0co aqYtxZUjUAVuQBl3tD01DH UscW4uuEOsKSzfxnVyYsW6 HXyyUYHgDvA5CXYabTXpUI OxA9loNKVxRVcoCFVxAHef qHLpHBG7rUssg7I8dVAxqQ EopYchSjDbUwBgKjUTh1Ak BVj8dCefN4MnSJUwJwE6kB QgUGFyYWdyYXBoIEZvbnQ7 qSjuluOmp75ceJPgPWVdYN TtMcDmmEyzISGdAWAMf9Yd xInqRAV9rCq8tVwlQsifOR B9Ept0PP3sgp39zfq7bKep EXMljfjcArH0XNpaSIMiro jfQUk9WCcqBFSivVU5HJQe oZEbV0OnPHZvKP8jwki9LT E7ZRouKKEiIhX9WULfoVOo QCGweGofCBfzh566KNM6Pl UeEC7cA0Mwm5I2yQ9bmJLv HVUbsQVvKdLzCJAubw9inT LfYBdcs2FsRMT6pfY4vHWg xCDhIMBqLJ81Hpbjc8VeUg fzp7EyS58dkRO7VSeam7qe EW5tJcT7muWkJLcpc5bgjM 6eQqC2BWgaKM6yMO7hPIDv tJ1uqmorAWDlLmRdnvxeSX JxdAzzpaKsWl8elTzmQOF1 PMvgH4tucV0lGpC8EQxzU8 clqY6oXPl5GOnxaFI0XLSj eT3eCZ1nwejsy3ryGScqEE bfVGVdchU2xjD9BAZnqVRh C0VsqR4gMNRqRZ7memkmb5 ceIEX7GLauAVRjOQO9RcKy UDQlh5Vkpar6WcJvs2YavG SgAVtmO01ss397NTMomnSu T8mqjXEfycsslHJbiyfuFI fxpmH1ZFVjCJPbSQlaUYHg XGZzMjJcbGFuZzEwMzNcaG ljaFxmMVxkYmNoXGYxXGxv J8loUkYwX7VgXFMwHoJcPM rpWHjkjZHjiQNhhNG4nU8e BG2oPJYygYQwA4IlQAOubs XhyCFjQLQ8oQIjsIOsCO9m TGjdeEWrz3tyy4StF5vihS qqqGI8OU6uGPJwRKGsOSgm u5CbiM4eLgglqHGclfwyNN xmczIyXGxhbmcxMDMzXGhp J3chCxZzFLKvsJkgTPvzn3 NoXGYxXGNmMlxmczIyXGx0 cmNoXHBhclxwYXJccGxhaW 7dPtLrHtFhTmgfHO8rNGOc D4wbcZIdHCBeFAFkE6vxVp LpfC2akTbjMYfxVfGhXoCc SzBGm119rw8bAGPaiXLzbm AQeSLcqJ3uFAmtJHqbPEwg mXEhNCgwu5uqPDAth6j1xF PaQLUmugPie6awHOjmhzEp NCOuwUMhcZVvCVHwm06rMT bdeGjnuWdjXNPeo5JdkPnv p1CuVxFpWZfuo5IoC92zyW JvbCBzbGlkZXMgcnVuIGFs g99gn2nwRWDxMhI8qIZecH K5wGQllDAgi8PhpVvnCAVr c7wcARBptx0ekjrhbEFqt5 RxfO8ofdstWPxibFLbafCq IVWjf7t4dTAyHFCmKFSmLU ucuPd9YTZku344yo6nukJ6 xESiRXK5FIliIEIyJUOlym UgZXZhbHVhdGVkXHBsYWlu XGYxXGZzMjJcMiners' [facility] Medical CenterZzEwz NcaGljaFxmMVxkYmNoXGYx OCdqJ2wmCmKrP4PlRAJoDj OvtKQyR1kzkPGqPELzNZfx XGYxXGZzMjJcbGFuZzEwMz NcaGljaFxmMVxkYmNoXGYx PGppI7afNbOmJ5WuLZBmUh IgIFxwbGFpblxmMVxmczIy FZkgigheGNKqUOpxY9acQj IxNPTojBqvAXgie0JpKVDc JLKnKnabprWwSAo6aePhDJ BhclxwbGFpblxmMVxmczIy ZEptavkjSHUqMLspL7vmPc NbLAXmrWecESszi3KnUSIv XGNmMlxmczIyIEltbXVub2 aur5NcD2lbaDcboXW6VYYo B2xlvLAytTP8KPZ9qC7rCL jcfpYwGOZbl3IiSMEaUKFq UsB6cV0aARI6CwIWzHpzHN BsYWluXGYxXGZzMjJcbGFu ZzEwMzNcaGljaFxmMVxkYm BpIQQwUUbgV9qiQdJhW6Ev GTIsXhQkuOinUJdhRTz4Ak xwbGFpblxmMVxmczIyXGxh pybdVYMyTYsyA1pzFuSuJX ZcuNsiTXpdi9FqPYVqNIRd MlxmczIyIHMgTWVkaWNhbC PZNL41IPYqWJQeeBbqnH5q bCOFGWTnpjP5z2M0SYhwIW WaNPp5QQfzbcEuVUPcaE8k ZZLvJI7nRMa0qqZjTGGow0 KtAR5wHUZamYLeAFB9AMLd u5AgX0Kkq4QiYDWqIKNjhi 4zwvZkJdFFoCQgGQFjmh85 XTAwYB8aD4hwZAZfWTKhsf ShoKMdj0BtWHZrqCT7pISn CU8RQlRXs54mDOTpZSTAqv UiBWBdfIdbyVS5uhO8uA9n LiBUaGUgRkRBIGhhcyBkZX Mpvg9wrzKxQQMhSVCin6Sx rDDvbJIwcaQfO3Kvl5IqQZ Gjvm01AWhjyFAask86LO5v N8Pou0ShoQ6bHIrjEDLcy7 GtgEHjyNNeOTAlw0WvU7hy wccmKVxazWUhmN4wGHSpPL d1JKNhf8BtPQKfb9OjCeDf ilYuZIPzBGJvVDOejC67QR F6nHxrwZuoeqFwRJ8oXHMf taWgGTLaGEBvbZ9jZVgrvg DgAXItrbX3h4F2PVgpIUSi leSdLfmjMVL1qbHbggY3eR TeJ9zfwgcnXLknJKJfb8Ek tY4lbHHVnKOnj0JjhXIfyY HZgJVvED8ojqAcYA9iHGL8 ODggKENMSUEtODgpIGFzIH T4NYxvHxepUUK6vuDzDREd l4KjKBzuM3prD73zbRaplF o6yAYzrGbpgQEupHRvHZEh lpO4n6T8YXMqx7NnoknkLN BsYWluXGYyXGZzMjJcbGFu ZzEwMzNcaGljaFxmMlxkYm XoJUOsECxcK6tsBoKpIcNl YmfwIQF0gZ== Gross assessment was [facility] performed at ([facility], = 0861) Department of Pathology, [address] [place] [address], [place] [address], Technical component was [facility] performed at (test [facility], = 2778) Department of Pathology, [address] [place] [id number], Professional component [facility] was performed at ([facility], code = 2779) Department of Pathology, [address] [place] [address], [facility] [id number] 14:51:42 Test Item Value Reference Range Interpretation Comments Case Report (test code Surgical Pathology = 104) Report Case: [id number] Authorizing Provider: Jessica Espinoza Collected: 06/12/2021 05:40 PM MD Meme Ordering Location: [address] Received: 06/12/2021 09:22 PM Service Pathologist: Ofe Luciano MD Specimen: Liver DIAGNOSIS (test code = [id number] 3220) FuZzEwMzNcZnRuYmpcdWMx IHtccnRmMVxlcGljOTYwMV wpmcZpBCApcVTbV2Iuchug YKqcBT3bJF4buEwrmDEqvH YfPMVvQeXpr2ssj973iSCf d4ruHQECsmojqWt8gVllR3 7la0B9BwwfB29qfZFrWDQ4 QTVdBTEreJWqRXHmOWP5MC OzcCPqY0uwZSStJQ3xivbt QEfvPZssKVYbgSP3OWZjoT JeJ1YmLUSdSJnfNEVfnzv1 BpEeKt7uqOZbpArzDWsnVL JkXHBsYWluXGZzMjAgTElW JONlZPRML3OEAStslJMcYL 3bPJQHWj1BVIRGKA9BYVNi cSOcRY2kR9ENGHMUPD6UYc EywTPojFojzfEqAXhia0Qx ONxvMYTuNC5ckRgbLGXaUI 9nPJQbY7rxbE6xtxi0EcVm LKVpWxR9UHGisyK2Ssa0OO OkRTvii7uzy6ZvDEPnXTg4 tIbvWoTeYDJpl1vxzeHwCe VhKHOsQOCuYICbpLQpI532 x0ips3gjodLtpVN0OVAvHE K2CTqnmfXfwyG4HQabkFUm BxA0SYcgkxPlVVbwufSjqm XvNkn3FSGxL480PBO4jEzz x3fuSAD3EMDxTQIkIbSlHz 5dpQWsX541ZMXaJUSPQKDw vLn8OUKbbvCmzoDvzOIXo4 42L606r8iqMMZovkLirOsN nfmdw5vxY917OCCsrEQeyn EhHpRqHCEfbYTdiQO3KHXi HX5dlvhcNIcvYElfGYSffr T1ZZVmrYVmE1WiOHIdRS2g ynguMDY5FWysKIWlPRV7Ue McJBRdr0Xinrz0FyNvat5o mq50IMD0s1EgcKvpZWC7DE Z9VkLiWi2ejICnPHXgYD0c ExEbwBVqLPPzmh75nOefHE pqYLU6QXZczgLek9Lxs9pv XyAonvLiP5snS4FvLQKeCE MqHTSuWzIekaYtu5Ofj9Ju bRZraRp3v9svORQqWLTkmL fvq5znFHE9SXQawNEiF6ph xE4lKUPpKN4ygjiin3wwRQ irPMphDLZmwVV6kaP1EQLt cNYyV7VsoA1xGFHaWQsvFC Wnxhy1RwQiIx1sySCdcKji MFxzYmtwYWdlXHBnbmNvbn RccGduZGVjXHBsYWluXHBs YWluXGYwXGZzMjRccWxcbG FuZzEwMzNcaGljaFxmMVxk MoPzUFIiIZzgZ1ymVeFzMb CzRas0YEChoGZnPQGqZwd5 SVBznYAgRZBHdTvzxJ4vNI OicHmeaH2boMK4ANRoktKe uEBAgZ9lEREZfH7hFrJ7VQ GcLcc8ZXU1CzJitCDiiG8= COMMENT (test code = f6ljcSOuCQFtaLD0GvRwBR 2558) Vup4gep0BgsNRcyPAdOVfw bETpoiSawn69gGZ1yP95DB 8pCGJkLaC8WFWfoqH8Mmd4 OHXrDVMecIBuT013o9lbc8 czxwZnyOA4wUupWVSpdsyp WzU1BIzhFAOquuurQAe4JB tzCNEdgLI0HVAzwNRkU1Ee GFXqMU0sypo9GLH9VCaaHJ RyIgV8LKYvbPHrHCZzhAdt TRmdp739PYR9OaCaNAOqhx QtlZlndI2bIsKbQMSZwTPc nEzbjI5ut6vuCxLwKCZ6lE LbccRuNiB8kNHgUfhazMK0 PFZrk7gmFLXhc68idDIcwq TtRBLhq3jfGwFnAOGly55b t4LmsGKorRuyEZ42MYzzBC 1fcUszfnNaEGlhlfK6kVP8 IGFyZSBzdHJvbmdseSBwb3 KsbLe9ADIom0EkV1p7AZOf OOXjUV7ujQUnk9OxAABtcs xtNB4bOV9wE1K6oWRsIYYv poEMHrQzWVigwHZov8kcp3 BuR4fhcFtdQDtyl5HkhC7k ZmGsPSKiaBKui39rcGh3IV IdVXVAYGQmGYL5enTguR1e cKbhbJ9xFODwzj3ob2lmWL 5pbiBhcmUgbmVnYXRpdmUu TDDQtFAaiZmhuB4nfNYxOo LbjfGjy9t3ZBYyBJMcz1Ti vvHdto8iNGCagVRcdp5yHY Aae71iY61krK3hUXOzxEGo DIZhzIGgjM5wc4jrtFWwMA 2xOIObGyL8ZmZzHkGbkPCs kl68CRIcGXIzSFYcnV2dbL 9hcvDaYAnsfhRuvaWmZH99 RRKhc5mlprgur0VogiTnwj 1yBFQupo90wENhYRGfmpNu a8ZirCIhdDCksRLxobUheV NsdWRlZCBjbGluaWNhbGx5 LlxwYXJccGFyIFRoZSBmaW 5xcW2xpoY2EYEpBWBfoYB1 NGFiyO7rXJFsNGKkniAcCH dhZGljaGVybGEgdmlhIFRp U5PbADAsyl0cJ6Xpw17dWZ IvMjcvMjAyMSBhdCAxNDUw LlxwYXJ9 CPT Code(s) (test code j5idrITqRANfnPW0AzRpME = 3357) Ejd8lkx7TtkUJneZIxRYzq yFTbsaMfby81ePC0nI15DV 1rKQWyQeS0CUXybjF6Eib8 FKXwMWNuhCKwO802a7dvs8 lqahHddHL9uHjcOCVstxqp IeW7PBwcSQGldinbMXu6LN rxDSChrKT8FCFxeDDaC5Xi CJGpIW6kwvq8BYD0ZQhkDA ReZfK3OUGlbENxYYKwzQlh WIxse371PFL4YqWqPFJbqt HkhRspuU4qIsArBPE0PQLh ZKsiWBnqVUFlUKa5YnPnRU ggNVxwYXJ9 CLINICAL HISTORY (test m2fghHEcCEGndRD5JuFnVS code = 3356) Con0ftk3GkyTDjsAKmHKsp qSVryyNazn66cZR7oW32PQ 7bPRLrEaX4TNYugjK2Gbf2 OUQwHRTbcXWiE432t6fib5 hdxwHeuMQ2hAcdLWYjhuvg HjV8UOvfEYXvwgpoOLw1TT cuICBliGY9BQGuhFOqH1Xh JJUxSS5vnrs1RNC1DMkmZR NgIcJ1NHZkmENvNQInwFhh URklo707YGT5ByQfPVNusf RojFribF5tCkBxZEENyrlx cmdlZCBsaXZlciBtYXNzXH Bhcn0= SPECIMEN SOURCE (test o5bqzGQgALTqiYN5BqCoLL code = 3377) Hhz6bdo3ArgXDzpUNzYYqj mPTovyUwtg73bMJ5gI87ZR 5rMHPgNgE9TGIxxtN8Ptm5 OKFuSHDfzFMfK267d0bcy5 dzexOirZY7nEfuRIRqvpxf XsE4LXboBSWtctpiKAq8GM neKPDkhFI9FNMgqRHfR8Gg LXEyYY6ndeo2UZT0DShsJT XkPyB6VMTxuHAcEETviQuh SSqvc802UZH9MuHePPTimb PfcVfxmD1iVrAbNSEMbPWu clxwYXJ9 GROSS DESCRIPTION (test q0mpkYGhHEFaaXI2SeMyKL code = 3366) Fgt8ruu7BvoZYatOBcRMwc oHRdhgHwzg78aRQ2yA68IC 2aDLAuHyR1TTIbyyX9Rjb6 SGDoOLUkxIFxW190x2hkj4 grrkRrrFQ0QPIbDTBwL2Yd VA5dSAEqwEZeN02wbGFgWH E0EUDcJRPrzSZcOWWaEGC2 OAMsbMOfQ6frVOGpVH9ckk hpEPqjKCicZZLliOO1BAGg eHMbJ1ZnAJXpZErjBIHtak y5BcBeFf9svXAmfDvxSHqj YXJkXHBsYWluXGZzMjBcY2 NfGEQsM4ThGVCzAOf6IRNy yQ4vOp5egTFucG1kM7GyXB JjQJCnlPKvTLKdNNHyj4j5 hWI0eBIcnRO6jLZwrOkeQR 1sjJWjNQ1GRuAvzoNdM7Ir IFUoP9TuJIfdztVpEVTwwS 1mp8ogJ6WmTV9wXUavIEEw ZWNpbWVuIGlzIGEgdGFuIG ErkzVajyTpVYvlNEFnw2Sj eSCcNRPhiOAhjnmhPD16AR EwOVggPbSasC3dvUAhE8Mp QLD7CSXkRPOmW4XbBJGoSG gfSTVwOI7mzSIaHIPyZCZm NXZqBNLshSCocF1jivMjhx WmoTb8JAJyNTCrshZrg3No fKy3pJToBQynZFMmiA9dfH 6eLWGjYEDmggnbGCTiE2By sKVrFUgyWM9gIFuWUWAzSH NDUClccGFyXHBhcmRccGFy fQ== MICROSCOPIC DESCRIPTION r1ekqQTrWKKfdAB1GyFzSZ (test code = 3371) Eqq8rjv4AqnUSkuCYcMYqg dJTskwBted92iHA2zU75OP 9lXSCqBwR6PJLkseU5Std0 TJKkWYAyvGPcS712s6yoq7 zkfbVueRN9rDbnZBCxwuxr GzX5HJgnTZQtheauMZb2WN mvTPHtqTJ4CGXdcAXsL6Ya GQDnEP3ewhy1LES8FVuoIT ZfQvS5YYFtmYLgHMEqqGah XLxnc355AGT3JlRbDRRkzs XkkYmpcB6jRkTkFJLSIERs i4VlWPCxnODdyO== SPECIAL STUDIES (test j2omgNBmJOAdf4etHKTbcP code = 3376) FuZzEwMzNcZnRuYmpcdWMx DTnshhOqKZgan7MjJ1MaTx AwMFxhbnNpXGRlZmxhbmcx FPZuQUW3jiDkXCRqMKdpDR ZxTXmuYa7vsSCyjUnzYpKx HRGhl3cynfOCflqmkZg4x4 krFJLaRlS3yTQvNGtaG1fg zbLwxSNlL6WakXOxkPg9m3 amCaGoZmT6oFHjEAqxL4ty jkWtxLXxKDTwUCk7lY79SD TmeF1xjVVeAFelscVtLnV5 JHnhMCSyVwA9ICKwkXMcMK JeF9nmKKCoHHelDZMsBEqn qJQbIBV0bKfhv4F9yHBauO VgqXpcYkPcWqQzFnJGg1Xx BZk1zIhaU8XvVJOuBqP1bX QgUGFyYWdyYXBoIEZvbnQ7 oZrkkgJpf66uwKKdOPQlZD LeFkJzkThpZCTzNRXSx7Oj hFqsGSE5sWk8wCrrWhumZW X3Osu3NL9fsm69tba7xVly WLGyuxfcPuE8FOkvAHSqwj hxIGh5UHntCNHcnDK6VDLl tRWyI5PbYEUkVP6jqdi6HF X2ZMkeKFFvEhN4ZIYnzLAb GPDwlMnwGEvzn363JZJ5Ss LsFO8mW1Sxr1W3gZ9wvTRk XLRucXCnHyNtBDChay9zsJ MgUWxen1GzCZA7crK0aYGv xZNjWPAmMH16Zotwg3RsBa lnz0ZhW83tgWU8LBeza6vp WI8pReC8wlFfNJhrw1natY 0oFfO0YHesUF6gGM5cEIYp mO0gqqdhNFNkGaNdzwscZI VykWqupkSsId8zlWjdXNU5 QEhvY3faxB5eZqC5VVkfP1 maiM4yRHw6MCfvxLA0SEZg dG3lEX8nscwgs1mvESzjZJ saGHUqkrT3yaC6TTOooTPs C6XjgD0lXNXbHC5bjldsd5 xnWWD4SOpwZMLyOMG8EiSr IGDgs3Rtnxs6ZnFts1RviR RvZFcqN98tf068KDNpfvRf R9nryZKzkgvsxDYpsrvvVS upgiM3MDQbRAGlCYweJJQn XGZzMjJcbGFuZzEwMzNcaG ljaFxmMVxkYmNoXGYxXGxv Q4skLkRrM0AxYFBfImDyHK vuNZjidUOinLMmdRG9xA3f HV4xJKAohJUsS1UkSSRcys FioOObZCX7tFPvpYTsGM3f YYlukOYgz3rcd2VsC2pmdP iwxAT4HB8iSOQmTGHpDAyz s7HoiD7hGrsyeUVnxfiqOM xmczIyXGxhbmcxMDMzXGhp I7ydIrEfFGYlcRpoAXptk8 NoXGYxXGNmMlxmczIyXGx0 cmNoXHBhclxwYXJccGxhaW 9nYdLdCmUjGntnOT8lRAFf R0vlbNCoRKQcFZEwA0ytJb XkuW4nsUvxUBfpHqEqJtPe WkTBg566fv0zIVZfeBWrzh YQhVNdyH7oFQxwVGlqCAga jBUsHBcwi6phRQTaw9u9oP QzGBUqtkWqu5pcAOilwbVf DADkhOXylIFoDORst13pZR fxrZnwvAjsJAPwi5AayMso i7TcJnDgKLkcl5IxF89sfR JvbCBzbGlkZXMgcnVuIGFs w80sy8elDKPzMyK6kUWyqI I0rLKcwOWkw4VwiEzxITGr z0hbOVMtqs6yjngbeBVwe9 UilL2cflgbMFonoUZsvaXs ZPQhd9f5mZVlVBNsEZOpPY ebwHe1LQXbe204oi5qbkF3 hARsLTZ1TYwxEOZiVZVdoq UgZXZhbHVhdGVkXHBsYWlu XGYxXGZzMjJcbGFuZzEwMz NcaGljaFxmMVxkYmNoXGYx CKqxZ7hjXwXdS9RiFDFkVo KmqZNrN5hxcYJgSLSdVKok XGYxXGZzMjJcbGFuZzEwMz NcaGljaFxmMVxkYmNoXGYx NUuhG0tbLtVhT0TjADFqUv IgIFxwbGFpblxmMVxmczIy GLtunwskXIItRUilK3heGn HhGUFayOkfASbpw5NcXWJm RDIqBdwkgsIcBZd0bpLiMC BhclxwbGFpblxmMVxmczIy XNnjoxcpWIWpJPnxX6bkLl BmTCPtmCevADyhz8RtPKBe XGNmMlxmczIyIEltbXVub2 bej7YiJ5tjfUrazOK9BHSg Z3rwpJVdmDB9ZVT1zV5wOG sbivUcUCUsl2DjRQRkWSSm YzE5cG1uZJY1YhPLwTfqAN BsYWluXGYxXGZzMjJcbGFu ZzEwMzNcaGljaFxmMVxkYm FoHOZrBZkuP3nkDkUyK0Aj ZHWvDuNdiBweEIdaGOn1Ih xwbGFpblxmMVxmczIyXGxh ufasFKRjRCyhV4eyMfEuYV DptNdcNXerl3QmSCRbBJAw MlxmczIyIHMgTWVkaWNhbC IGYW66RNQlAUJpbPdhoV9w sBFGASZpxdQ4e4L3GIxhNF TuUTq8GYuzvdVpYQIvkH7n SJVpBG9lPKz1asHlZEDsv8 RnAX3oTMBxaKGcDOZ2EUNh u7SaB2Kam8UpBTJmDWPkrp 3dipNtSxMToJKuHGDxpm16 SJUmJN5zA6rrXSDdSFHzvd LigTNus6HcWTIltNA9kNLv RH8GFxVIx78kLPHvCHMFld RnAPSebDsyjEK0fzO0dZ4w LiBUaGUgRkRBIGhhcyBkZX Jrja0afqVtEXIdOKBxf6Nh qWUgfCZzawXlZ0Ocg5WaFO Nsbf86UGiubZAyug35KB0x K1Uek7EkrJ9iBUloOBHbl8 HltGIwhPUfQKKks1PsA4ut btgaSXywjABqsI1qVFLiIN n1IWKkz6PoQMWbo4BxOhKi dmFhETCkYSDoOYCcfB35EM V1hDvooSroumYcHU8qCYKf pvJfTZNyAHToyP3qOZynsp LeFQEwlcX5e1T6XOpgPYTj neLtCyzzDFQ3jlXgrfO3gW ZrA4ltttalSKskKOLbj8Kq yS9rcYKQfBEmw4EvcJQrmP WAoNMdAP0nheZxDD0qMBI4 ODggKENMSUEtODgpIGFzIH B0LGygYmanMPR3eiLpOVEv n2AzZFgeL8kcR28kpKedsE f3rVHmfAcmrVNovJDlYCRd unC4i4R4SUJjl0DhimcdDF BsYWluXGYyXGZzMjJcbGFu ZzEwMzNcaGljaFxmMlxkYm QhGJNoSEvnZ3rwZiFqGsTn CadjNUU4iQ== Gross assessment was [facility] performed at ([facility], = 9882) Department of Pathology, [address] [place] [address], [place] [address], Technical component was [facility] performed at (test code [facility], = 2778) Department of Pathology, [address] [place] [id number], Professional component [facility] was performed at ([facility], code = 2779) Department of Pathology, [address] [place] [address], [id number] 14:51:42 Test Item Value Reference Range Interpretation Comments Case Report (test code Surgical Pathology = 104) Report Case: [id number] Authorizing Provider: Jessica Espinoza Collected: 06/12/2021 05:40 PM MD Meme Ordering Location: [address] Received: 06/12/2021 09:22 PM Service Pathologist: Ofe Luciano MD Specimen: Liver DIAGNOSIS (test code = [id number] 3220) FuZzEwMzNcZnRuYmpcdWMx IHtccnRmMVxlcGljOTYwMV hkocOlKQLtlGSuC4Wriztc BWewRZ3aXH9ysTqhmNElxB CiRRBsNxSdj4tvy624gFCj i9yoJCZBhrfrdVr0ePgmB8 6up0P9NjoiW74lkVRwDPF7 DSGkVXFuwQXsMJDbLSD1WM MooULcV7luDDZwNM7koaij AQaaTPkkNDLtwWB4VDGffC CsY3GoLWIjJNhhQIHtkvb4 AxGsMd8bcDOcqTnoURapYR JkXHBsYWluXGZzMjAgTElW ZEEeEVCMW7UJDNuyvBJaMB 6uNWJDXk0SKVXCAM1WDFZx hUZqBR6aN5RLHXECDZ0MWv OmjFTyyAlbhmNxSFqxk1Lv QJpvKYIxPF8ajWbtUFChWD 9bVYOiS2cekF0ityx8OqFb RFHaBsC3XTYqtbL8Ejp0YJ UhYYqgt8doi5WsALOwREr1 cMwnQbTnGUGql3hewwBpPa XmIVEyDWHhRSLgoRAjJ617 a9tvt6iejcSvwJW2CIDsGR O5BIxaqnMcibC9PRpreJCv HvP8EInxqrLnRDinmcMmmu OhXlg5PZFfF349TSK0yWhl p7hfCOW0YOSlJLEoYrSoOg 2vqAVjV770TTGzVSZIQZQn aHy0ADByulRjvbEuyGAIv2 52Z778g1adSBRrgdOieHpF mxavy6zvS529TNIyaOQzkj LjFpYrWFAiiHSibGI8XZNe AP4oewahCVjrQGstWGLjui K4RMBpuBSjV6BkATJnBF9q durvCST5ROtjQALlLGF6Mk XmIMNwt1Dsiqq9WpWtqj5i uu50PHZ9f2GotCldFPS4KH L3HdAjNr9mnBDkIRPwMX2u JhLyrETtPVIzlj83nBnfIA kaEHQ7XDVdfhGkw2Dwr0uc IjIcxaOpN6thI0ZsIZFzZY AuUYOiLtYufdGtn3Bow6Kd iMGdcVm4k3cyZWQaTVIerG cvf4udRVQ9EHMqqYEiF5of pW7iWSQuUJ0qxyzyt3cdFY urCBgrEXMcbPZ9asO8RUXc kFClO8IqaO2jBUEuKJocEU Sroiz0VtEfGi7qyQZkyJqw MFxzYmtwYWdlXHBnbmNvbn RccGduZGVjXHBsYWluXHBs YWluXGYwXGZzMjRccWxcbG FuZzEwMzNcaGljaFxmMVxk NlYsDFPtMUdoW4lfTtOvIq IeCvc0NRHhvMKlGXHeXep2 GPXihESpUDABxClelA9lIN CbrVyyrZ3kdUK3FZWluuZh cUENdB4xIUUHnY2gSuP0BC UhUpu0CDC8GdTqfMYumA7= COMMENT (test code = n4lwcGYmXLXolVC6EiGvAW 5391) Iag0afg2MllVSehCQiFGtd eDAkxgCulb49tSM6zZ62PE 5kIPSdIuT5JWJarvN8Zma9 OIMhNRJxyIPgC141i0ndf7 vzxmLbrJJ9eTcnQMXrdmgj WxS0PCatLDXetlzoOId4OJ czQHOvsTP2OFIipITmH2Oa FWGnLD7symf6WBW8FNjfAQ NqLpV7FTJsjSDlZWXinLnt PFkxh853AFR0ShCjOOYfun YzbPlljL1fPtByIDBFnXDh yJbftF2nt1loFbVpQCT2uE SuxvEbKuL4lLRfBhxxsWN2 IUJsf6mjGPUwa11yhTMcut WcJQQjb4mfCdCnQLJbm25h u0YrhGMcdFwzJD49WLeuUE 5agYvndqZqVYhmnuJ1nQN5 IGFyZSBzdHJvbmdseSBwb3 HsgTv2XODmw9XeM9y1NIKv UFAhXS6xjPFmj7IpBMCkmh ueKC7aEE6tT8U0oBBiKYFl hsCHYyZuKWfytKMbg2gzh6 WuR3ivpHlvMCuja7HboH3r DgSdPBGyeDPvq58rpKr9JV EsLMXUZTGoKVB2xvVfsB2r lEuaiQ8bBQTvyh2lw2asSQ 5pbiBhcmUgbmVnYXRpdmUu NHFBcEJynPtdkE0whWLaUc ZbdqEtd5w8HSPvCYIau5Wb bcZfav5dKUVflVOhli5jUX Cpq78jG30hvI2dJTRwbEAd AFDenZPqiI2bp0nudVMbBL 3rITJzCjU8EoInSeNawTJc px34IXRqDNLrIGModA1wqX 3uxoOeQFnpjyPhwjChEC52 HCWif9htmldjy1IuniHwdt 4oDDEwdw78mGPnRLWpmvYt a8XpmROnlXHgvICedoWhaD NsdWRlZCBjbGluaWNhbGx5 LlxwYXJccGFyIFRoZSBmaW 0ziE9kwqQ0QPCbMKXeiKN4 BTEhxF6bMCUhWVGlnfXzCJ dhZGljaGVybGEgdmlhIFRp R3KrESAqwf7uN8Xmu94fNN IvMjcvMjAyMSBhdCAxNDUw LlxwYXJ9 CPT Code(s) (test code s8nwtPCaMGMfgUH9PpAkOG = 3357) Gge1wfu1NokQEhyCVkLTgy nCRetzPwlh62dCS9vB35WB 7tUVPvQaL5AMKmrxG5Xfp4 GXSvKQIquEUlD583c9ihi9 wjnmDiqKK3bZufMCKumkgl WcF6VErtDTNnuediYJa6MF olQHVfrHN8GOCteWQgR8Kj DLVhYC6mtup4MMU2WPciZE DwPdA2NMZuuBToKOUztSmm WUseh346FVR9TnElAAHmrl YljOfhdC3cBzTdFRA7BHGx PAshLWiyDQGpPUh0ZuUdOT ggNVxwYXJ9 CLINICAL HISTORY (test z9sfuVYmRBRnnFR0WuZzYS code = 3356) Rqo1dcp0ZhqTUipHWpEXtu hJAykyZptx19uFE4vR16JW 5dZDJwYyJ1KNTerwX4Zqs7 WSQcXLLayCTtC634s4akk6 ncckHsjYS4hZsqDQXdykzx LqQ2JIcfOZBbcewnGHf0PY ryFYAzzVL6HROxkNBoP2Rc PAMiBF7hyfa4TAB5PGkqPK UuThM8EBFuyJRcEIXrfHir GDxha437MMH3FoFnUIWqyp UbqBnryS2uZrQxIGGDgezf cmdlZCBsaXZlciBtYXNzXH Bhcn0= SPECIMEN SOURCE (test j1yohWQiTWOvkER5IjYtPN code = 3377) Ezf1dji8XvxFIapALbOAgg rEMypaZlnz79gVH6mT96FH 2dQJMdDwO7GGCijjQ8Ojl6 LXOsHVRsrXNrD347r1nbr6 xweoUedMG5nRofEIEvecuj SuG0PIrpUOModbaeHRn3CR irXIDohMF9VRWppLMmA3Fz IFErNR4naqb0LDI1ODsuDQ BiEyJ5IPCumBGpTPIsaMik AEevu222RDD4LjHjVZQwuu SpxUnqlJ4bDvWxTVYDqMGy clxwYXJ9 GROSS DESCRIPTION (test c3zelORqABRtbHT1FyWmAY code = 3366) Luu0yst7TggRVldAGqVFns nNVqvxFlyv98zTZ4vI25NX 2rWVZuUjB3AFPjbrQ0Udu5 UAKwWTNqeABkQ281c8onb5 gcduQfkOM9WSIrICTfN1Eb WX8tDHOhpSVyC94vdJMzRL S1XAFlZVYfvYBxKFPcERD7 SVJehVFlM6nuVEXkTP5hsc koRNpbIZswVGKrpMU9MUZy tHDzE5BnUBCkMLuiIWEpsw i0EhIiIl6zvNBmyXpxSTgi YXJkXHBsYWluXGZzMjBcY2 VuTKVpM7QfTONoZWe8EPIa hY8rRo9zfVXhpL0jS1ZkST EoDWAznVMuGTKiHFIro6w5 qIC9uANybFE4xCRuqFibGS 3mcMWtAO1DAlLvvaKsV8Ma EQDoH8TlJGqyqmBwRCJrzS 5br0ttX7FbQD6rYPomEBNy ZWNpbWVuIGlzIGEgdGFuIG OubsKivaSeJCseDBQsm4Wk tGCzOPBrhXLfyvnbQZ80LK FoEEvsMaWfqU7nnXStX4Hd DNZ1LAKaDMHpI8DlEHZjRE vpWAMrMF2ocGDsVBCnQRJh PBJoDTEinBCjuJ6wnvXqev EnaBk1CPYzZDLmusZbk0Xe xLc7oJWbOOxmBXUqzR9stB 9kJOOmDEOhlsvhTQKxZ6Jf tAHnIAcsQF5hDOdMHXJhMJ NDUClccGFyXHBhcmRccGFy fQ== MICROSCOPIC DESCRIPTION n7wibFEwXFEgtSV5UiBsWV (test code = 3371) Ljq3kjg2WocJUyiEQvYAge hYZcxnHejb54wWB6cQ99ZV 6rOWNbFbF3PXTrlnX0Jfz4 MSZyOXUgdXHfQ648u6xxs1 nzogMswBL8cHhnHWAxvfww WxO7GGqgAWTfidnyZZt7MN vgPJIybJW0CPNytHJeA3Nm WUIkEA8jujh7GWM2DJvvZR YuOuJ9UVUktXYoWIBmwKwp HBswe315HKA0OyIlQQVxoq WvrXrtuH8aOsJmOSEKASOl a5HuOAZzkVAolL== SPECIAL STUDIES (test p3sgpKJfABHvp9baKPBoeQ code = 3376) FuZzEwMzNcZnRuYmpcdWMx FPdlmdMnTQsue5OpB5JkGr AwMFxhbnNpXGRlZmxhbmcx CVKaPJS1ufQfHXBlOGyzIO MyCVlfAr8bfDTmrCvoMhXa HMEnc3ngjeGTkgcyaLo8s4 qgTXAfPwV4dKQgIWwfQ2hk ovXynSXhT5QinDJukPq5k0 fwRmQcChA9pAJwBWhaQ2jn vzUfoUSgKLKyKGn5rJ68ST BzdK4rqSUwZNlqjlUmQjL8 NLdvCLKzWtT0KFEbiGOmPW KuH9pySTRrJSgqHVCsRJmb cPBoCNM7eShgl7X1sHEdyJ XdoHqoDzXqYbTeHvDRi8Is DIw2hSqxA1OlYSOxFaL1dC QgUGFyYWdyYXBoIEZvbnQ7 kOrjdgFwv61vmKAlEOVgGE UmKrZcdLioBTIbXOWXr2Wk wCwaLHK7wCu8yGdhKtorRF D8Qiw5MU9gwm05vyp1iTsp IVKrxqpvWwD5XJbpZJWaot reCPm2RJvaUDIgaDA3IOBs oGRdX8QfHBRhQD9eiib8HV A3DMmmYNIsAuJ3SIBmxQBt RNRriFifPKbwf469OBL5Bl TsGQ3uW6Ley9K9nH7ppLRn GDOxhJAdBgDoRTClgq5eoU ScTYwkr3YgBEI1ucL3wIPd wZMcODDjPF51Amzcr9EbVu xlw3GnE51mgXB9UMuve8kn IF9mFeE0epWxICotr2elgM 3bFzM0CXcdOU0sPV7pTRBh zV4cqigzERFlPdPfcavxOF SkhKornlLiZd8anXhhOFS1 RIelP0ocsM9yTwH9NEnuC4 oklQ6bSXq4AZykhIU8CFZs vX6tIC5vbpcoe1hlBKyiFY lnDVFmmwL5daF6NSVrcEEl B5LexR5lYJWbEI6znceer7 uvBEO1IXfnWJWiPVD7HnSs LGXrn9Orjey9RaUuy4FkfU QfQSmbD89gx140GLRzqmAt L1srwNRnsftivQSibtrdAL itdtI2GYJhUKRmQGeqIUJs XGZzMjJcbGFuZzEwMzNcaG ljaFxmMVxkYmNoXGYxXGxv F4quStCoF5BqSCFsFgSxHG xoRFaiuAMsoQWxdZC3dB7a ZL1lTHGfxPSgA1YrUKCged PtlTLvRYO1yTIjqGGiME2j BFxrvINjd5myh6ZtO7tqnF iisNV0QR4vFJGoQQCuEJdh e7GayI0tGvynqETgofxlIQ xmczIyXGxhbmcxMDMzXGhp V1yaEpZtIMGbtNpeDQdrc7 NoXGYxXGNmMlxmczIyXGx0 cmNoXHBhclxwYXJccGxhaW 0iZlReKmKpBuwtMF2gGVOp I1tqfLFsOIJhWXUwF6onLi WvxL3taOwpYWbkFsZlKyQd NrJYm503bh8kEMSghORfyk EYfBEqdM3vWUtzANmxFBxl lWSdFSkaw3boUEYsg3t0wS FsVTFeceMde8zoZUebwrRz YHEpdOFzfTIyWKOdt55yZZ rsaYmeuGmcAZJwf7MvvAtx p5IaXrCkBZulm7JqP56beK JvbCBzbGlkZXMgcnVuIGFs h48ip6ddKYSfOgL5fGQjwW U5yAUgdJOoi8PgfEfvVBXk t6kpBWVgdg9udrbmpNFth8 FtjF6nysjoFIvpoDJglzPm GRFpz8t6pHHkVHCzQFLcQD rlaWd3ADUbl477mz7ssxB5 tYXcYRW2MZxdZRRvQWFelk UgZXZhbHVhdGVkXHBsYWlu XGYxXGZzMjJcbGFuZzEwMz NcaGljaFxmMVxkYmNoXGYx UNmkM3tyOoQpG8QvYLNzBt PitZLwR9rldNBgMNPqONai XGYxXGZzMjJcbGFuZzEwMz NcaGljaFxmMVxkYmNoXGYx JAdmP9jqPuIgB0BfALPzJu IgIFxwbGFpblxmMVxmczIy SUamaoecJKGnUCrhM1svPt FvGLOlxAjoMWrnj7OsPOLy PFGiNucvlsNqPRs6nyVbTF BhclxwbGFpblxmMVxmczIy HOtgyrxxNSFuWOucG1qgNe ObESIzeWziTFpak9HmVPNu XGNmMlxmczIyIEltbXVub2 wxk5QvB8kzyFgwlWI8MRGr N6tomHNauEU9EVM0jX1xOS jdauTaTYMks7NvZROhWECc ZpL4pY4pYRL9ItRVkYqxIA BsYWluXGYxXGZzMjJcbGFu ZzEwMzNcaGljaFxmMVxkYm XrYKXrMTpkA9rwJbUyN0Gr FSJzSgLhpCrfYOntHRp8Eu xwbGFpblxmMVxmczIyXGxh tyhqAOEmCTinZ7ggBnIkTO DarEirWAxjw7IvRXZmPSGy MlxmczIyIHMgTWVkaWNhbC UVXL52ZFLjXFTfxAfgpU6a wEMVGQSnxbX5a1P0YRipSY IcDIz2TSlrydDzHJVveW6s GNMsJQ4oTGd9rkDjTDNwt0 DvNH6nEZYzgGOeKBT1VILl f2VtJ6Mdb3DhQCBkCVLekq 7etfRvWoVFiXZtRMExxg60 EJReMU1wQ2dbXLLpRFVuxy BtwBFjb0EoFLAlkRK5hQSu NQ9MEnECa43sJKMbLQOKcy AiNNDtyOhidIY1neE0jS4t LiBUaGUgRkRBIGhhcyBkZX Iryh0iahUwPKQhCJOyh2Cf xIBqjWVchzGhH2Lrw8QyDZ Bucq51JQqsrRLwaz23AP3s V9Lwz8ShhB0eTTpjULSoc8 MhkEMduYQuDHTkn3OkG8pk mbzqZNwsaKToeG4rNQVoRP e7JJIql1YlSCIba9RlHsNp jnYrADPlZRPmTLPxdS93WN O0aAqsfUttezCsKD4nBFRi wkXbTJIqJNFahS4yDHmvpd GsDDDzkrI8r5L1LCrqRCQv haMgSjyzOYF8ldOjkoU9fB XeW9jpjhbuICznMKQqz4Pz dI5uaRIMeZSik2ShbRFruC TLdHZyZG4zofKgDI0sGTE2 ODggKENMSUEtODgpIGFzIH C4PUnhZvssFYK9whIpREAx v2ThYYfrZ5hkI26fqDwjdP f4vQBzrSkyeHSgyLBfFKZt spY2r2W3LZGwd4IhwifkCB BsYWluXGYyXGZzMjJcbGFu ZzEwMzNcaGljaFxmMlxkYm ZnRTCkZIpfX1nzPxGnMgEh IowvLWQ8uL== Gross assessment was [facility] performed at ([facility], = 4666) Department of Pathology, [address] [place] [address], Technical component was [facility] performed at ([facility], = 2778) Department of Pathology, [address] [place] [address]65[address], Professional component [facility] performed at ([facility], code = 2779) Department of Pathology, [address] [place] [address], [facility] [id number] 14:51:42Surgical Pathology Report Case: [id number] Authorizing Provider: Jessica Espinoza Collected: 06/12/2021 05:40 PM MD Meme Ordering Location: [address] Received: 06/12/2021 09:22 PMService Pathologist: Ofe Luciano MD Specimen: Liver LIVER, BIOPSY:- ADENOCARCINOMA- SEE COMMENT Signing Pathologist Direct Phone Line: [phone] signed by Ofe Luciano MD on 06/16/2021 [...] breast primary is excluded clinically.The findings were relayedto Dr. Jessica Espinoza via [employer] on 06/16/2021 at [phone], [phone], [phone] liver massLiverReceived in formalin labeled with the patient's name, MRN and liver, biopsy. The specimen is a fulton core needle biopsy measuring 1.4 cm in length by 0.1 cm in diameter. The specimen is filtered and submitted in toto in A1.EL Wayne (ASCP)PerformedThe interpretation of this case included the use of immunohistochemistry or special stains.Control Slides Examined: In- house known positive controls were evaluated along with the test tissue. These control slides run alongside of the patients sample show appropriate staining. Internal positive and negative controls when available are evaluated Immunohistochemistry technical testing was performed at [facility], Pathology Laboratory where it was developed [...] qualified to perform high complexity clinical laboratory testing.[facility], Department of Pathology, [address] [place] [address], [facility], [address] [place] [address], [facility], [facility] of [facility], [address] [place] [address] 66[address], BRHA-GLUCOSE [id number] 12:14:31 Test Item Value Reference Range Interpretation Comments POC-GLUCOSE METER 150 mg/dL 70-110 H : TESTED A T [facility] 6720 (ROBYN) (test code = KENYA Mcmullen [facility], 1538) 83906: Clinical Services Specialist/Techni grisel ID = [id number] for MIHIR DIAZ ANTI-MITOCHONDRIAL AB, REFLEX TO [id number] 11:22:59 Test Item Value Reference Range Interpretation Comments SCAN RESULT (test code = 9388828) Anti-Mitochondrial Ab, reflex to [id number] 11:22:59Scan ResultQUEST [facility]AGNOSTIC [facility] Hospital[facility]ochondrial Ab, reflex to [id number] 11:22:59Scan ResultQUEST DIAGNOSTIC [facility] HospitalAnti-Mitochondrial Ab, reflex to [id number] 11:22:59Scan ResultQUEST [facility]NO[facility] HospitalAnti-Mitochondrial Ab, reflex to [id number] 11:22:59Scan ResultQUEST DIAGNOSTIC [facility], reflex to [id number] 11:22:59Scan ResultQUEST DIAGNOST[facility] HospitalAnti- Mitochondrial Ab, reflex to [id number] 11:22:59Scan ResultQUEST DIAGNOSTIC [facility]ATED[facility] HospitalAnti-Mitochondrial Ab, reflex to titer 2021-06-16 11:22:59Scan ResultQUEST DIAGNOSTIC [facility] HospitalPOCT-GLUCOSE [id number] 07:29:28 Test Item Value Reference Range Interpretation Comments POC-GLUCOSE METER 124 mg/dL 70-110 H : TESTED A T [facility] 6720 (BEAKER) (test code = [facility] [facility], 1538) 15365: Clinical Services Specialist/Techni grisel ID = [id number] for MIHIR DIAZ HEPATIC FUNCTION [id number] 06:32:25 Test Item Value Reference Range Interpretation [...] (test code = 35 U/L 6-55 347) Clinical Services Specialist ID - DBSpecimen moderately ictericPOCT-GLUCOSE [id number] 21:12:07 Test Item Value Reference Range Interpretation Comments POC-GLUCOSE METER 148 mg/dL 70-110 H : TESTED A T [facility] 6720 (BEAKER) (test code = [employer] [facility], 1538) 10051: Clinical Services Specialist/Techni grisel ID = [id number] for JUAN HAND SE POCT-GLUCOSE [id number] 17:03:44 Test Item Value Reference Range Interpretation Comments POC-GLUCOSE METER 123 mg/dL 70-110 H : TESTED A T [facility] 6720 (BEAKER) (test code = [facility], 1538) 12369: Clinical Services Specialist/Techni grisel ID = [id number] for Parth Salinas POCT-GLUCOSE [id number] 11:52:32 Test Item Value Reference Range Interpretation Comments POC-GLUCOSE METER 143 mg/dL 70-110 H : TESTED A T [facility] 6720 (BEAKER) (test code = [facility], 1538) 22673: Clinical Services Specialist/Techni grisel ID = [id number] for Juliane Salinaslon POCT-GLUCOSE [id number] 08:02:23 Test Item Value Reference Range Interpretation Comments POC-GLUCOSE METER 140 mg/dL 70-110 H : TESTED A T [facility] 6720 (BEAKER) (test code = [facility], 153) 10738: Clinical Services Specialist/Techni grisel ID = [id number] for Parth Salinas HEPATIC FUNCTION [id number] 05:08:28 Test Item Value Reference Range Interpretation [...] (test code = 34 U/L 6-55 347) Clinical Services Specialist ID - DBSpecimen moderately ictericPOCT-GLUCOSE [id number] 21:09:08 Test Item Value Reference Range Interpretation Comments POC-GLUCOSE METER 127 mg/dL 70-110 H : TESTED A T [facility] 6720 (BEAKER) (test code = [facility], 1538) 18649: Clinical Services Specialist/Techni grisel ID = [id number] for JUAN HAND SE POCT-GLUCOSE [id number] 16:45:22 Test Item Value Reference Range Interpretation Comments POC-GLUCOSE METER 138 mg/dL 70-110 H : TESTED A T [facility] 6720 (BEAKER) (test code = [facility], 1538) 60538: Clinical Services Specialist/Techni grisel ID = [id number] for ZA VALA, ERANDY POCT-GLUCOSE [id number] 11:38:28 Test Item Value Reference Range Interpretation Comments POC-GLUCOSE METER 182 mg/dL 70-110 H : TESTED A T [facility] 6720 (BEAKER) (test code = [facility], 1538) 35342: Clinical Services Specialist/Techni grisel ID = [id number] for ZA VALA, ERANDY POCT-GLUCOSE [id number] 07:48:25 Test Item Value Reference Range Interpretation Comments POC-GLUCOSE METER 93 mg/dL 70-110 : TESTED A T [facility] 6720 (BEAKER) (test code = [facility], 1538) 95319: Clinical Services Specialist/Techni grisel ID = [id number] for ZAVA LA, ERANDY POCT-GLUCOSE [id number] 21:21:25 Test Item Value Reference Range Interpretation Comments POC-GLUCOSE METER 119 mg/dL 70-110 H : TESTED A T [facility] 6720 (BEAKER) (test code = [facility], 1538) 62000: Clinical Services Specialist/Techni grisel ID = [id number] for PEACE NEW JUAN POCT-GLUCOSE [id number] 20:18:07 Test Item Value Reference Range Interpretation Comments POC-GLUCOSE METER 94 mg/dL 70-110 : TESTED A T [facility] 6720 (BEAKER) (test code = [facility], 1538) 27150: Clinical Services Specialist/Techni grisel ID = [id number] for ZAVA LA, ERANDY POCT-GLUCOSE [id number] 20:15:49 Test Item Value Reference Range Interpretation Comments POC-GLUCOSE METER 165 mg/dL 70-110 H : TESTED A T [facility] 6720 (BEAKER) (test code = [facility], 1538) 87334: Clinical Services Specialist/Techni grisel ID = [id number] for ZA VALA, ERANDY HEPATIC FUNCTION [id number] 16:35:07 Test Item Value Reference Range Interpretation [...] (test code = 34 U/L 6-55 347) Clinical Services Specialist ID - DBSpecimen moderately ictericBASIC METABOLIC [id number] 12:34:43 Test Item Value Reference Range Interpretation [...] S NOT APPLICABLE FOR DIALYSIS PATIEN TS. Clinical Services Specialist ID - PIAYA LSpecimen moderately ictericPOCT-GLUCOSE [id number] 08:13:41 Test Item Value Reference Range Interpretation Comments POC-GLUCOSE METER 98 mg/dL 70-110 : TESTED A T [facility] 6720 (BEAKER) (test code = KENYA [place], 1538) 53411: Clinical Services Specialist/Techni grisel ID = [id number] for NARCISA JOSEPH POCT-GLUCOSE [id number] 21:25:44 Test Item Value Reference Range Interpretation Comments POC-GLUCOSE METER 133 mg/dL 70-110 H : TESTED A T [facility] 6720 (ROBYN) (test code = KENYA [place], 1538) 69679: Clinical Services Specialist/Techni grisel ID = [id number] for PE RALES, SHYLA ANG, CHOLANGIOGRAM, [id number] 18:57:00Reason for exam:->biliary obstruction recommend R biliary PCT drain [facility] : 1970 Sex: FFINAL REPORT History: Large [...] into the common bile duct. A 4 [place]ian Berenstein catheter and 035 angled Glidewire were used through the AccuStick catheter to carefullytraverse the common bile duct and ampulla and select the duodenum. Catheter was advanced over the wire to the level of the ligament of Treitz. An Amplatz wire was then placed. The catheter and sheath were removed over the Amplatz wire. The tract was dilated. A 9 Burundian peel-away sheath was placed. An 8 Burundian internal/external biliary drainage catheter was then placed [...] 1. Successful uncomplicated placement of an 8 [place]ian right internal/external biliary drainage catheter for a high-grade ob struction of the right intrahepatic ductal system secondary to a large central hepatic mass. 2. Successful uncomplicated ultrasound-guided core biopsy of the large central heterogeneous mass as described above. Total fluoroscopy time: 10.1 minutes. Estimated total patient dose reported as (Ka,r): 554 mGy Signed: Sarkis Saucedo Verified Date/Time: 06/12/2021 18:57:59 Reading Location: [facility] B1 P048 Angio Body Reading Room POCT-GLUCOSE [id number] 18:31:15 Test Item Value Reference Range Interpretation Comments POC-GLUCOSE METER 124 mg/dL 70-110 H : TESTED A T [facility] 6720 (BEAKER) (test code = [facility], 1538) 24550: Clinical Services Specialist/Techni grisel ID = [id number] for Carolin Espinoza lt SARS-COV2/RT-PCR ([facility])2021-06-12 14:39:57 Test Item Value Reference Range Interpretation Comments SARS-COV2/RT-PCR (test Negative Not Detected, Negative, See code = 5653607) external report for linked test POCT-GLUCOSE [id number] 21:59:26 Test Item Value Reference Range Interpretation Comments POC-GLUCOSE METER 138 mg/dL 70-110 H : TESTED A T [facility] 6720 (BEAKER) (test code = [facility], 1538) 28466: Clinical Services Specialist/Techni grisel ID = [id number] for KIMMIE DOMÍNGUEZ POCT-GLUCOSE [id number] 17:44:44 Test Item Value Reference Range Interpretation Comments POC-GLUCOSE METER 137 mg/dL 70-110 H : TESTED A T [facility] 6720 (BEAKER) (test code = [employer] [facility], 1538) 13218: Clinical Services Specialist/Techni grisel ID = [id number] for EMMIE JOHNSON POCT-GLUCOSE [id number] 07:51:42 Test Item Value Reference Range Interpretation Comments POC-GLUCOSE METER 94 mg/dL 70-110 : TESTED A T [facility] 6720 (BEAKER) (test code = [facility], 1538) 64826: Clinical Services Specialist/Techni grisel ID = [id number] for EMMIE MOREIRA COMPREHENSIVE METABOLIC [id number] 04:51:42 Test Item Value Reference Range Interpretation [...] S NOT APPLICABLE FOR DIALYSIS PATIEN TS. Clinical Services Specialist ID - PIAYA LSpecimen moderately ictericCBC W/PLT COUNT & AUTO [id number] 04:50:09 Test Item Value Reference Range Interpretation [...] PERCENT (BEAKER) (test code = 2801) POCT-GLUCOSE [id number] 21:21:27 Test Item Value Reference Range Interpretation Comments POC-GLUCOSE METER 140 mg/dL 70-110 H : TESTED A T [facility] 6720 (BEAKER) (test code = KENYA [place], 1538) 49303: Clinical Services Specialist/Techni grisel ID = [id number] for JUAN HAND SE POCT-GLUCOSE [id number] 17:36:27 Test Item Value Reference Range Interpretation Comments POC-GLUCOSE METER 123 mg/dL 70-110 H : TESTED A T [facility] 6720 (BEAKER) (test code = KENYA [place], 1538) 35401: Clinical Services Specialist/Techni grisel ID = [id number] for EMMIE JOHNSON BONE AND/OR JOINT IMAGING, WHOLE [id number] 14:29:00Unlisted Reason for Exam - Click Yes and Enter Reason Below->No [facility] : 1970 Sex: FFINAL REPORT PROCEDURE: BONE SCAN, WHOLE BODY CPT CODE: 15748 INDICATION: Left hepatic lobe mass. PROTOCOL: 21.9 mCi of Tc-99m MDP was injected intravenously. Whole body and selectedspot images were obtained approximately 3 hours later. FINDINGS: Tracer activity is moderately and di ffusely increased in the skull, maxilla (worse on the right), first anterior ribs bilaterally, mandible shoulders, sternal manubrium and proximal sternal body.Tracer activity is mildly increased in theposterior seventh rib, hips, knees and feet. IMPRESSION: 1.There is no typical metastatic pattern. 2. Increased activity in the sternum and anterior first ribs are most likely due to degenerative changes, 3.The focal increased activity in the posterior left seventh rib may represent muscle insertion site 4.Degenerative changes in the spine and peripheral joints.5.Skull hyperostosis. Images for comparis on/correlation were chest CT on 06/10/2021 and abdominopelvic MRI on 06/05/2021. Signed: Skyla Angelo Verified Date/Time: 06/10/2021 14:29:27 Reading Location: [address] Reading Room POCT-GLUCOSE [id number] 14:23:13 Test Item Value Reference Range Interpretation Comments POC-GLUCOSE METER 136 mg/dL 70-110 H : TESTED A T [facility] 6720 (ROBYN) (test code = KENYA Mcmullen [facility], 1538) 62570: Clinical Services Specialist/Techni grisel ID = [id number] for EMMIE JOHNSON TISSUE [id number] 13:44:33Surgical Pathology Report Case: [id number] Authorizing Provider: Oly Whiting Collected: 06/07/2021 10:53 AM MD Page Ordering Location: [address] Received: 06/09/2021 09:46 AM Serv ice Pathologist: Sean Gibbs MD Specimen: Common Bile Duct, Obtained by [employer] COMMON BILE DUCT, BIOPSY:- INVASIVE ADENOCARCINOMA (see comment) Signing Pathologist Direct Phone Line: [phone] signed by Sean Gibbs MD on 06/10/2021 [...] Radiological, endoscopic and cytological correlation is advised. 66967toebforgFkqmyt Bile DuctReceived in formalin labeled the patient's name, accession number and "common bile duct" are multiple fulton soft tissue fragments measuring up to 0.1 cm in greatest dimension which are filtered and submitted in toto in A1.ASHIA Felder, HT (ASCP)Performed [facility], Department of Pathology, [address] [place] [address], [facility], [address] [place] [address] 20031, [facility], Department of Path[facility], [address] [place] [address], [place] [address], [id number] 13:43:33 Test Item Value Reference Range Interpretation Comments Case Report (test code Medical Cytology = 104) Report Case: [id number] Authorizing Provider: Johanne Yuridiamei Whiting Collected: 06/07/2021 11:18 AM MD Page Ordering Location: [address] Received: 06/09/2021 08:38 AM Service Pathologist: Sean Gibbs MD Specimen: Common Bile Duct, CBD aspirate DIAGNOSIS (test code = [id number]) FuZzEwMzNcZnRuYmpcdWMx IHtccnRmMVxlcGljOTYwMV xlohRoMZHdcXOeS2Uesbmn VEinQC5gMK7pwQlfaYYubE GtHJUoKtOct6css701fYHz o0pwTMNDnyunfVp5wSuaI3 5it9Q7HxtdC77qpYEhIAJ1 GNCkAKLcsLUzLQFaDRJ1ED ZjnOGgT2cbWLSgHF9utzye HVczWUbxYAKreLB5XTIdfB HrD2TiKWEsPAjkPUOtoxh5 WxFbPo6cfZDsfQiyVJzrLB DePCRvNAlmVEZyZjBvR84N JG9COZENENCaZEMSSNGOL3 LHElEWUBQRMIFJQSAnG3eS G1QCWS3MSLoerTOfSOOuRT 9fKP4BUCLZCoKaOd5THS4C TElHTkFOVCBDRUxMUywgQU UBEl0JAUCBMS4ECXKlHVKo RVIxl78jYG52BYtrOYQ4n6 xydGYxXHNzdGUxODAwMFxh bnNpXGRlZmxhbmcxMDMzXG J9faBaQRIyKZcgUOOhNCuc Do2jgYBsiTgiNgPlGGGzk5 xmkwHMkvnbbBh2e5mzWWJy RcY1pYFpUCncA6qvqhDhfP RdCMNaHOs7iK00CNOpvP5k uEUsQBbcawXbKiH0DDxyJS JtKfA8QNOcnJHyAFAtQ4gp ZWQwXGdyZWVuMFxibHVlMC L3kXbuu6Z0hNJqwIZsjWng XySwVoGbTcZGh2CgCOp5pU zmV3TwXFGrYqZ4tWLbXXEi DJlcHMXsMAHvbfI9cU06JN lrymI5bBFml2Tlb58zw885 bL5aoVSlZVB0QCUbRBJntM SgTIKuAQZ6BTWflMWpT7ir YNQiWH9wumntAXpwSNbjGD PdfLN8QAOpvDYgT7RiYKSx SXjmMOKqupp7OkOrBy6iuX ZeqAwsDOjxk2tpq6gkhOEr Hjj4BJUdBhWlVspmBLpny9 Aeo6ehOHWixo4oEAK8jKQl oCywc0H2pJGeKMMkrJTiDA WjMJ8izFOjLVLpuA3rdvak XHBnYnJkcmhlYWRccGdicm WkXg0xsZomBYN1WBraJ0hi dF6qHlL0CJhlR5xskN1qCF p5UWbuWDHgsSJ9pwU9GZQu lBMsZ2KtvZ6uRHWeBB2xqu m9p7oxGVA1NZblMFZwKcF0 hiV0YZKsgFEnPCKepQfsLL ldw284BMC7BiVjREEsu6Nc E1AxwHpyS39bhJqvP55vJQ HddOofiE8ktEjkhC4jUiRp UtSjCAfprJcbLL5aRLMuI4 fwnJXxBGDmYVUtM7onFpSv lK6jxMqnNMhsipEmASJjOq k5XIWeoPVcUDAxEfw1OEGf JZYjM36faollMDJ0nX9sx9 uxe8HtFSinEJH9QRNpl84p PCaxqwD9BUlxXg44QDlnRS B2AObpvAJurI2= COMMENT (test code = h3dyvXYgBCNidYL9OaCfBV 5242) Ctm5ahg4DanQUufCZeAMjz hLQcnpFkcv77eBA1bR20QZ 9jBFHrClB4YDYnztA8Vwg9 ZALnZEEzlWWfR479r8jov6 giwoSgcIT2lJyiFTLhxptr HwJ9VMgdKANmwmwjRCb6YJ dhTRWpcSW2GKUbcIRnQ6Ng SPYwVB8rmzj9ZTV3XHipFO BuJrI4OMRzkGXdWBBsrKfj GKpyr507ORN9HuFqYXRerl SwmXtzfO2lGpObNGOFABMy obS9cPO9MN4aVPNzUVB0ys 9uaWMgbWVkaWNhbCByZWNv qjNnCZfpPSpwhjwxiS6lep Qpg9ckgtQhKnMxTMO3WAka dmVyIGxvYmUgbWFzcyBhbm YwJN9jAB8rd2Kun2CwDhNv pCOcALSewK6pUN8jYVJhsn JhXAMlwOBlx2AgldGwOrAy ZWA8BH6qaI9kKEKxtWRekI T1fAAooKQ8OPorw8IaVijw pXFbYEHwf01sk7GogSJoAF Opp0Vfm4GreiQgzqciTRlc TI3thTPoKuVHfRIlw4Jaeq JzlJfkEDJbr6toqrVgAFKv ZWRseSBhdHlwaWNhbCBjZW nokbH7uOXuAK87U8erSBMe eAZsYlIootWqrLYiSIe6eM TrgRY0KAJukBPqttGczy9u YXNpYSBhbmQgaGlnaCBudW OxXVMaENCfNHS1kV9ajMYg bWljIHJhdGlvLCBhcnJhbm hbVBThysOxy2fwn6z0BNLq bHVzdGVycyBhbmQgYWxzby CpwS9nkAvcOXlkqZKmp9Ts LlKAk60eGVBhtDfgBSUxn8 hhwH24eqVgcRJrxQjrk74u XyW5WTZ7b4wlsw8iU6Ifyr FtjDkfyWwzCBA0nC7mz5d1 ECTproUyUBMrGBT0IEApTI UdyPGcMEWaFTAmkC5whSIx bpLjHa9mAF3whUuwvhMeC2 brSREeSK2gJ7TaU0kqd90y SBNpvvX3tNHtkpbkgBJrX5 yiwhxdMKknx9X1wLfoEc6t vMQlKSQhwvFIvFWgi2NkEG qgmxSgTDKjt1OkH0amUPib iUU5nE6tn3l9QGXvmL6lbC PDAnFsZRZ7DcYaVWibEJK9 CPT Code(s) (test code g3yhuOOnTWDemEH6SnAoPG = 3357) Lcv4ivh5CwjBJivMOiQBfv oQComxWzxt05gOJ3yK41AY 8yPMLkKtC1HTDrhfV4Oio2 XWNoULOmwLLzD180q8azr3 hbvpDhtXA2aOodWYJutgfe MwF9AUgbPULarlfoVGq1KJ cxDSIevBI6ZUCwaBEbS8Kz NCEyOS3ggws1GVH1TPbmEV HuStT2ERIinVChZWTymFlu NAkck370GHB4AsXyDFFarl PckEzhoK6jInDzMQS2LGGw OFxwYXJ9 CLINICAL DATA (test g3rwkTKvKUOjxYX9KsZjYB code = 3355) Nzb2yiy0DwsEGmfATiJFuf yPHwtaCcbz77eLC0yH32RX 6bOSVuSeQ6LXNsxmU8Sfj6 WDIeKOTynHMlY767o9jxv2 vwggFirHW5GHKtOBCfD3Ff FN0nGVRnwSHiN82zaELsES A1CKDoMZUafHWoJGUfQPR8 YSAzfQZiW9gmCYZxTO0lau auXGpyIOfoWIXhuFG1VMRp zWKyZ1GkKMIeLOpqKCHuff q8LbMrBw6wyEFinVgeCFyd YXJkXHBsYWluXGZzMjBcY2 XhJNumB59vxDl6QZVnkIEm qlnoy0KipAbegP66foTik2 TuO6puwEWnO6evB4VlW7kx r86tWdQaeMrtaEfxsGOviW ioVR68TFIyrdreu5R3BSuy cMiqwEwjza3xXHXxbLIaj8 YbATB7xIB0mmSqWkLbC04l cGFyfQ== SPECIMEN SOURCE (test h8ytiDNdSSBatGD1ZcZuJX code = 3377) Yjs5vuq9VbcDMgqQKyZMcn eHQdycVnqb13jIN2oC90JN 9hNKGsCtT6NIRcvoA8Tqi7 MUYjBNTbyYTaP863a4fkb9 mbsdFlmAN0mIslUHFkqmtt GlY2ZRxaYYCdkanpIAa3UM fcIXHzdDZ6JTVikRBpV6Ck MWLsDY3glop8KMO1JLriEH NaJuW9TBUkhPCzCHAzxPsn DLwsi615CLH7DyRqJLMknr JfdYovyV1rNuJiCIQIO43P V30jSlbMNYXUBEAOENUMHN lSQVRFIEZMVUlEXHBhcn0= GROSS DESCRIPTION (test k4vppHAmXZKjxWZsVuDcIU code = 3366) GcZIMaj0noRYKvgAHnRqIx MzNcZnRuYmpcdWMxXGRlZm Xtg1cms785bEQca1haHOGw RkW4rARrPAJyqRKcT884g0 cdr7evddHqyON6OPOjDGO3 BMzkcoCmgkP4YLkgvDJxGh U6SMcbrnNeFPiedoDqkaQx Owd2SGIpJ342FZQ8aAdcf8 tcKWC4LCJwBARwTdPxPz3t fXUrV088WXGuBCCGGGKjhJ v0KJWkycRwsdFcyEGCh330 U820b0wcUPHulxMlmNnSrq ayz5hhL493APReqNPnwtGx BbRhKCJonGBdnTO8EWAoYQ 0iolocSmDtWA3ggnbnIbYi TI5hqgw7CwSlUT0momxoPa NrPRnqZHHdwxgqUTVdr3Uh lzszAQ2uS9Aew6V6rZ8xyR BwMYHygGOkScWjRBGrpo5j hEOxMLxom8QzMEK5qeC7yH YmeHEsWCWnPH91Oluuk7Gz GzkmLOK4TMAqqrNlh6Gzt8 hsPmFpndGuM3mvZ8QlBAWz VEWrTMGeEuXpqkUqf3Ava8 YebWVmwFx5s3drFZSpGAGt uPbdi6yzXPC8ZYSbI5C6bV Yms2wcWGdtOXStmOG6epbj BLroQQTximF4oumfJHdyZB IdmZC4ybrwAVrpZNBmAcL1 eyttQZtzWSYkBCS5GHkkf7 39MXW4KIwcQxryHNssTZPp bmNvbnRccGduZGVjXHBsYW luXHBsYWluXGYwXGZzMjRc wSwlnMfwcY7cTvSsZfHzRL gyVJ5bVIEcR9haoSFcOXIg ERMzI7fcGySkyO1idOwgLJ nlefWzKKTzZ5NiocMfUPIz TV3vCDfqaMsjpsViuTOywc utkCRiRKZoHsx4KVCcsuA2 ANMtBWWgiiIwXYXtZ7j5y1 ZnrM3vESbqAPU4 MICROSCOPIC DESCRIPTION l3batVOoSESdjKJ0QzPdSG (test code = 3371) Aph7mjz6FiiZMcrEGlQQxt jKBgnfTvgq33pFV1pH68TN 2fTXIhVoY2ATDjdcZ1Ikd4 EHGtQSUqyQNdI996e5eat2 urxbCouFH0zLuaTZUmkcib VkJ1RIekINIleqgoJGr7ZQ blPGZzeRR7XMBxaNPdV8Gm VWSvDJ4salu9BET8CEgsHR VgLzO1BKPkqFZcONUssIbb SGtzk777RWT3JdWbRZUqhp HijGhvsX6lGhBaNAHEMXVh p0IwLTSqNOpuCQL1 Gross assessment was [facility] performed at ([facility], = 2777) Department of Pathology, [address] [place] [address], Technical component was [facility] performed at ([facility], = 2778) Department of Pathology, [address] [place] [id number], Professional component [facility] was performed at ([facility], code = 2779) Department of Pathology, [address] [place], [place] [id number], [facility] Test Item Value Reference Range Interpretation Comments Case Report (test code Medical Cytology = 104) Report Case: [id number] Authorizing Provider: Oly Whiting Collected: 06/07/2021 11:18 AM MD Page Ordering Location: [address] Received: 06/09/2021 08:38 AM Service Pathologist: Sean Gibbs MD Specimen: Common Bile Duct, CBD aspirate DIAGNOSIS (test code = [id number] 3220) FuZzEwMzNcZnRuYmpcdWMx IHtccnRmMVxlcGljOTYwMV dwvzNgHMDsrQYuZ9Rovnbp FCiwYR0bMS7ihCsnxTOujL WuAUDcEwOri4uto400bKBc t8wsEMVWlpyxqKh1aCkuW4 4oj5S6IzclB82veHVsAQQ4 SWQaLVJsoBYeZBHbURE9RI PuyTSbR6zyMVFvTS4gdzfi XGsfPJonUHJlvQU8HDQisD PcU2NqKZJcKPcxZTSzllq7 MwDsRw2odXXumDfgBXdfPU YsTNCmHAjfXZRbVzZlL80X TA5MZHIVBRAgJSDFVCRYH3 HGXhRYAMPVIAYYYPEhB3aA G1PMOC9JUAetxVLfDDTqEZ 7jDF2IAGDRPgKmUv7IPE5G TElHTkFOVCBDRUxMUywgQU XBAr3ATTKPXS3YVBHzKHCx QAInn57rWL16KNwnVTZ6t7 xydGYxXHNzdGUxODAwMFxh bnNpXGRlZmxhbmcxMDMzXG E0nnLmMEMpABnnNTLpZHmr Ox9vrVCprLuhJoOvFTJtk5 uwhhVJqrekiXk9l5rqRTSv TfN7jOHcPWliI4myzdZpgK AcSFXuUCj6kR51CNGrpE8t rZMuBTffmuDoZvV0XDenOZ TrQfS8LAKsnPEgZYFmS0ne ZWQwXGdyZWVuMFxibHVlMC N4kFoet4Q6iBQtbMSnmZbh DdKiWuPrDyRZr5DgGSm0uT gtW2RgHJSoWxQ3tMKgLRMu UQblNPChXEYznfJ3wW24WH zcrgG1fFYgg0Pyr47xv686 cO6tkMFrXLH5UAWnFHXqfK UbDQKtAUT9PKPidTMpD4vk YVQiKF9ppqwbOWkmTTawPC VnuVU7XVRocEScK5AmEOJb KOihHGYaqdq7EiVvIq4dkI JjpPomBRpkd1tcd5gvbBZg Kev6UUSuSyPnUdycFRsle1 Xmv4ufCZXooi3iNCK3pMUw iZark0L9iHGhAADksCZbYU LsIM7zoNUfXHWvwP4xwdce XHBnYnJkcmhlYWRccGdicm MkSm3jtRxtTUK0OYxhM5wn nZ6ePzT4AQxcA5esxW9gXM i9MLrvLNBxwBG0sxG2QMWx zFUwP4FksL4fXPLbXW1ssq p2x5kvNMR8WPcyLBPmDlI9 vsN7ZXKugHGiJSMemPsjPR slv196BMG3XaDlYYTxg7Ks J7SjtGjmB06xfWkaE19rFG FndMwmtX7toSfcdR2eCuRz NvPxHDyrtZxqSC3qCZWaQ0 gxtQLgEMRiBQGxD7gwVuSa vA7abSvoFJybvtDqBJEwCi g8MNIeaQVgZLNiXji6WMBi UNMnI10tuxvfJER1nB3sl6 qrq5HpURrsXHK5LBDzs68c DMdoocB4ZMymKw22KUvnTE S1AOkdhWAgfQ1= COMMENT (test code = r7ijxOViCTKllEF0SsDmZZ 8444) Yir3scq0UsmJXehGUjCAva dPDwqcEgod67oHE4uO15SH 3qCXXoYwP9GLBuhqH6Ose9 POYnFUQfwLVlZ140v5hzv9 hngzYbtFK7vHmrHYPwovlx IhU4QXidWUTqynqgUWz5ZB vjXRJcbDJ4PAIbwOHbH8Jr ELQdFW0fsae0RQH9QFbxQH SrXeF0SFZdjSBcUKGypWps XCuaq568JIA5YcYdKUKitr WvdIebkQ1wJkAbMHLUATUk ngY0tTG9EC4wRTOxSCH6hw 9uaWMgbWVkaWNhbCByZWNv daNoIChhGJmwgqyuzU1tsf Itq7rxgdRkXqEvNGF0LAcp dmVyIGxvYmUgbWFzcyBhbm TwNZ9qRN7in2Cnl8NuFgPd kCZyRSHyvD3qDG6yOXZlko WeNBZhbQKuf7TulxWyUwLz QXH7KY9ziA1qLSCumUTvmE Z1mIIffBC1IVhpd5TyViss xEPnDXFnc32ae7WtxXXjCK Pph5Vvd9QmmeIhuozfMGkr YN7hwMHsJmCDyOBzw5Poeh TxiDiuHQRxd1asshArTRWv ZWRseSBhdHlwaWNhbCBjZW dfijO7eDXoOC59W0ybGUOg zHOoOkYsceDijVKtXIj7zX HwhCF9VWWozKUavoXatm5i YXNpYSBhbmQgaGlnaCBudW AbZPBnXOXiCBC3vI9eeDRe bWljIHJhdGlvLCBhcnJhbm dgBWDxyoOmn2qay3l5UJYh bHVzdGVycyBhbmQgYWxzby FrmS7bdMygCNzyrKGgg8Pa AeWBs46oLQUilUovPNKue0 gcnW97xyBgzASqcOgnr51u CaO6XTM5q3hasq2iF0Tkzk TpxUkpmCciPGV6qS2gh5c7 QSUluwOrNXGtNJE6QCGtSH JjdEIkGDGjWMJraB4dgBKl hvDeMw1eQE3jtQakcyUuU2 jcSMPcDH9kJ4LhQ0veh42q MPDxhiR5gFWmpbjylDAhA2 qmtulpWWrmf6Y2wUasBk9m eBSvMRPrzdKQcYAgb8VuZH zcfsFtYFYyc0WdE2axPLcq hEX3lP5nh6f0FNQlgP4hqS APFiQfMAT8XpZfPIruGJH4 CPT Code(s) (test code e1kntRVfPVMniFO6ZqVuMU = 3357) Cim6rbm6UseFEtrPLvJVxq zNZkhdAxdj36qRL1eA42BX 7fECJhBsK7VDHpvdV5Put1 TCRlBSYgaQKxU644x4vti4 amrnWwdIR2sUnkILGslpus HrR3CXiuECNdnaviIEe7SJ nlHQUaiNO6RPBzyHEcQ5Vm QPHnMH7gech0LTW8YFdoUS KtHcL6JFRwwYXsOIDaoToh BEsqa206MLT2BzZlRELufz JjoXuqoH3pZuCvEZK1PLYi OFxwYXJ9 CLINICAL DATA (test p1qxhDTtUDXuzED5DpRcVC code = 3355) Swk9ror8NhbPLbvCOqSSth nOLpddEatm44jCE8hX41HF 1eVPHtSvJ9NHBtmkV0Jsn2 UERzJUXyyOKbD868m2nhr2 lfymMuiMP7QKOpOZFcP5Se EP2gHLKstJVbQ08dgBTtSW V6SIUeDAPczKIsMUEeSPZ1 UQApsUPkN4uhAYNuLZ7fot qrSHpaHDtiBNKcrIH1BJEn wVUlC0YoPZGbOTlbBBLtbt v2WtKtGj5idKIqeVxvNBiu YXJkXHBsYWluXGZzMjBcY2 GzVKvmM21lgCy4EHEhzAQv hbgyu6AtqQxfgI50ckHyo5 BdL2ovpJMqX6kqT7QgF2sv g76lZqFlhFaqtQeaaMOqgY abOT24VDMzghhtb0S0VGrt lKxncCyvia1wTKPwsYLbh6 IjFKM8oRR1brNgAsNdN74r cGFyfQ== SPECIMEN SOURCE (test w6ikpBUsPWHrpEO3JsOwJJ code = 3377) Fxs6zlj3PavJNfmDUbIYpm eBDsgpOdtw91eAV8mM44EB 3tQEGgYtE0KSEsblW2Qwd2 YPHqVZLzcXIcD053v7ncj6 eqrxCkdDY3fVorZMGzqtrs FlT9JUbpVZTyyvkbNBk7VU rqLOOkpUT0ULDksCMvK5Vl JRIcSL5wddu2ZSW1ERyvGG VdPdK0VPPzaPVfVJKmaVxs HVsvh095INM5KzEfMCIzxo BsoSvirI4iKmDrMWHVZ51M E41hQsbHEDCHFLOARBOYVM lSQVRFIEZMVUlEXHBhcn0= GROSS DESCRIPTION (test o6jlnPPmPLEmtZYjMpXoCB code = 3366) YdSPIdd1imPVBnaZPyEiXd MzNcZnRuYmpcdWMxXGRlZm Tsd2lnd902lEUeq2oeSIVe PxO4pLAbRVYamFGdA175o6 nom8eiztLwcIP5DIZyDTA5 LBdsguQatqI7MHpaiVOfQd U4KXrmduTsIZyahfIrkrWv Try3ZPAdK779MHJ8vSebb8 duERB0AANmJQCdVaAvEk3g mCYwR777QBOyKZYRXFBbpM t0ITLrneOpqwUozCUZo703 E671o3lhFFPtkmHbzFbNfc wxf1zzR288JHIlgBSclcPu DuViGJDdvVPlnZG3RAHyHX 7amntbKmFbYH6txtumHwOo FD7dzsu4AxPnGO9xdpzzIo VhJCigDSXagpipWOSlh8Yb aawfXT4uV5Mgi0W3uF5rpX BzGNZzdTXiHmPgSSPlmq1h pBVqQBnor7FhWGZ6koH2hC YflSNsLBQePZ94Wwzfy9St HqyfRAA8NHWvkrEwr3Ftj9 boKeRlroDiB7yaK2CyNSEl TJJmOMTrEgHwozKyz2Vxz3 VyxJYklTp1q3jkNTGsVIUk yYhdi1slWWY0JKWiJ0Y6hF Dbm6ssFZsnMOLedVZ1omhu GLqoPKKwuzS6ssbbGArdGS FwrHG4obfwVBojKBJvXuE7 nzexNKkpHCNqJIF6UFeao2 07FYX7TNeaExfuWFrmPQKa bmNvbnRccGduZGVjXHBsYW luXHBsYWluXGYwXGZzMjRc hQqnvXiygS9aWoXgGgXyKK mvEH1mCWHbB8zrsLOzGZTb XVIvI4mnIdYpbR7zaEknBF nehkZhZCYbH2HelgSqTOPq VZ5xRQzksGwvbbJizXTduq gmoBMqRANvAxt9SDUglvV2 CTDvTAGxnaLmKRTyC2a2v1 OtfK6wAJxxBSC6 MICROSCOPIC DESCRIPTION y1vsoQFwLMGowMO7OaJoQO (test code = 3371) Bmm3zby8IvtKKjrWAgSZka xDErcqVzkz21gAY8cS78UW 6eVBBjPaS1CEXkupL6Cdc5 QHAfPXBcpCFoM300a6fgd5 idsxTtvJT3bPeqPGEpqhxx KxC9HBfkJHKjjjhiHNj0VH qvVHVyzLW7FMNpcPGiP7Vz PFJdWY1gtvh7DBP2FIifQD HeEyP0OQQssMJqHWRubGhf PPakq058MFF6PgMdIWCyuu ZaqCzzaY8nFkWxXVHTOPPd f1MsNAUdEMmiISS5 Gross assessment was [facility] performed at ([facility], = 2777) Department of Pathology, [address] [place] [phone], Technical component was [facility] performed at ([facility], = 2778) Department of Pathology, [address] [place] [address], Professional component [facility] was performed at ([facility], code = 2779) Department of Pathology, [address] [place] [address], [facility]33 Test Item Value Reference Range Interpretation Comments Case Report (test code Medical Cytology = 104) Report Case: [id number] Authorizing Provider: Oly Whiting Collected: 06/07/2021 11:18 AM MD Page Ordering Location: [address] Received: 06/09/2021 08:38 AM Service Pathologist: Sean Gibbs MD Specimen: Common Bile Duct, CBD aspirate DIAGNOSIS (test code = i5vzxNTaYNMew5efJVWnsY 3220) FuZzEwMzNcZnRuYmpcdWMx IHtccnRmMVxlcGljOTYwMV eqqoVwKIFxkFTrZ5Zyqovy TVifLT8rEJ5lzWzgwGWzrP TfJOCcLjHag9avk375nENn r8vqEWPMpxfkqYj9hXbpG9 3yu8B9YdnjH04wbMAaABJ9 YNTrGFMwiIGtDWTqDLO2CO VswIPpB6pcEXOsSR5noday EZxjYXxmXTZukET5YLQprJ YtE4MgEIUfIRkjXUJbsei1 PcFbKl6xbWIgrAtkROqyTL ReCMGfNSwaAILyXvBaA43C YC5XXBKLSYAyLSNOYIQQG7 HOVcRCOFIDJJUKKRYkQ7jO T6HJQP3BGFtiuFNsRIJpPE 4yYG5NIDXSGyQdGc5ZKE7Y TElHTkFOVCBDRUxMUywgQU OMSl3HZFHHTT5DDDMhUFUc WDYgu62aUA82BTpmVGT9g6 xydGYxXHNzdGUxODAwMFxh bnNpXGRlZmxhbmcxMDMzXG Q7kqWsCRDwVSdoYVZiDJnx Gq3dkAZluKikBkMcHZGbz4 oqpoYSpqkaeXt5u2pkWDXy PmY4dFWvCQovM9qfssYyjU PhSMVnKIk3cR14LZYxgD4i vLKdWQjfsxQkLcX3UOeaYC OqWvL6GIHrcZHcXMIoV7zw ZWQwXGdyZWVuMFxibHVlMC H4yTjdy0G8nPJpjMHwrLzh SjLdNlXsFkVTv4HcZWh9xL mcV6XuOFGdBeG7vXZyGRWb WWklDXNvEUKddvI6rC05AH cdrjI8lDSmr7Phd44ly344 tP2wkBOuRXN9ZQXkIOTdkQ OgLJFpSCX7BSTgdWCbX6ge KXSgWJ1wgbiwVWiqCTwuWZ PwpCR8OBKoxOOlV9KzPQEg KUthWZAwcrw6UiXuVl4ikY LwnOrtXEjtl2ifo8qlaJEt Nbl3ACDbGoSbHvgkZGgch7 Idt5ubAADmte4oBIF8xVYc rFlnz4J8eBSsTBCxqILlEF GsTA4sgBKlWYBweF4tgzhy XHBnYnJkcmhlYWRccGdicm GyEa7dwPmeHOJ9QDzdZ5sh hO3rGaH5LMhxX1qzgN2pVN b0OCfmGBKxqEI5adM9MINw rGKxT1QxsP9mVOZdEY3wpe i2z0uoRCI7SXugEYCsVwT4 zmO7ZSBjnRJvDWTxrBtzZS dhr337KAN3OkMnGXOpi1Gp R8QpsOrpM67zgFhpF17qQZ VghUlhwH0xoHmaiO6gLfFr RuCbUIhwwBadKU8qAJOaP3 ggmJThSGEwDFCyM1cfBfFl kF9eyBvkXMkhusVlMMJwPp i6KUPufVBiCFWuFst5UTKj GQOrK91rgthsCPI4jB3jx5 hcz6LmKJpmOWL3XRKdc75j FOpusgV0EWsdKz47VMxgBD O1SKljgAAkbN8= COMMENT (test code = i9vzcYSbUJGdoJZ8JhTxNO 7050) Epz8ssl8HtbKMcrRKgCHzz lJVkvdMipb62cHE0sT65VD 9vAXGwRnD2HMDugfK4Xjd0 EFDvHAPhiHKqH517j6bmq8 jmqtJhjJB5oQhdEIMrylpj QjE1VWagFVJxcaewTDy3HF qmCVXntNZ0SRCtmBOwV6Eb FHYlOC9qwoc7BRI4ITqaPJ JaLsX8CJOztCSjUTNisLes MHhoc452DIF5YdEkFROjtj AzhClidI3nBbOpLFUSGWYr rtA6mFY2AT6aAFLvHMZ8sd 9uaWMgbWVkaWNhbCByZWNv biVfUTyuQTkbsbammO9pyd Cbx6ajueDtTjLaCFP2LEki dmVyIGxvYmUgbWFzcyBhbm OtIS7yQC0mv9Bpv2LfDhIh hMIzEFIgqS2sVE2gYUWazs YeNOYgkJQmw0WtqrKbDpXa CAQ1CL5ftP2iHSYmqYHkoX I5yQCuzNI9QQmzc1CvWohm qIRmXFAia73xr3KhgWGkCN Qjg4Ctq1EzzlLvrsvjVRqr OQ2vqMJiNpIUyAIuc5Pcfu PhqTyeAZAfg5abntOcNFSv ZWRseSBhdHlwaWNhbCBjZW pahaR9qNItYE14P9geJTHa cCGxQeTzohAfmUZqDGm7oZ EldYV6CJTvdYIqaaIwen5z YXNpYSBhbmQgaGlnaCBudW RrZVAfGQEvGAG5jQ5iaBGf bWljIHJhdGlvLCBhcnJhbm aeCKScvfVfl4vst3p8PEWl bHVzdGVycyBhbmQgYWxzby QbbX3pvNhwLWnhxUPyq2Xg SoDHq40uCBVxzXepLWAdy2 nsyM32aoMxjAAomRtvm97h BwI1EWB2y1tzpa5qY6Tesf BbmBvexLnkAQR6fO9rh2l3 COGoqzMwFXBtJHX4QPZcND KzsYJnYNHwATDnbN2jhGBg jrZbEb0mAH5rvXhhocLdS1 ppPKGzCS7fH6DpM6yur79y HXUkwkC7vCLctfaryHBkO5 zkfzrkRUwis9J3bHraHt1r rMKfWNVrwyBEyXZwx3MxWT cizaGlKUYlx0UdW8qcYRgt fZI6zO9gg6j8CMTphJ5ssK GZZnOcLHI9CkOpFQpnEWQ6 CPT Code(s) (test code o4xdyXByJQYeaLM2FgAwKD = 3357) Hag3wcq3BxvWOkfETuXHou tJMpgyLvyc61qSH4eQ88TF 9fCEPyRuN5KGTtxeF9Mxs1 KCOjNVVdxSEgX556g4lll6 zhhuCzqVJ4bZijHEZpuzzw MuW4PLscLFXajaqyOFr1OY xjNRHdlOX9XIDoaVHuJ3Oj VYSaAY0zsck0KMD6DUfrVA PlGtN5GIJhwQVlCZVahAgm MHnvs713XNL9AwFxFKYnnm IocOpjcB0vYwHvFYY2BVBg OFxwYXJ9 CLINICAL DATA (test b3xpqUMbWCJzoBT2DmWsZH code = 3359) Yji8fuv8GouYCtrVJvIXgk kPCzqgZort88eDA5mL69GN 5tSFSpDmC2SBKdyeW9Bdf3 FZGqGYTguKRdQ670e5tat4 peatEfeDK5EKAjRSIoL3Ma WL1pDNJpkQLbC83hoYXxIL P1HVGwAQJsmVPyUVRiBXA5 CSPpqWKjJ5fbVULuRF7bjv hrXIfcJGwdFIKgsRN9CRXn gFZcY3CxZIZsTBpaCWAcwr j8JeDdWd6tdPDckIdqGEqq YXJkXHBsYWluXGZzMjBcY2 ZiGRzzK72jmQj5RLUboGWr xzxzq6WhvWltfN66aaEsk7 QlL9nicGJaU1pjR8XhE9ua y50rZkCawOepgQimhFCeoE apQP13GZPldunro4I3SEun lAklsPgahl4cNWXylTOag4 HdKOW3vQV9iuYoZxQdF93j cGFyfQ== SPECIMEN SOURCE (test p7ujcWOpXCUbaLQ3SnDiVW code = 3377) Quo4lgp7QqwOUsfUMfOMhn aJZmrxElqq25dJV3nU92WX 3sARTsZfI4LZJjezG5Qch3 INAdDVIktSIkZ252j4zga5 wkrpDnrWY6nNfwNROpnpyv IrE1MWxxWISkdzvjHSu6RF mvHGJahDE7HJCcyTNxO6Cd FUPbAO6dirs4WSN9OSkaRH GqZzZ3QCWkrIEgRZEsdEzi MTubg869PIM4SuYgQZOkra CtuHnkmD4vAxShAUOFP20J G69kGmlIOVSZZMKRNEGODK lSQVRFIEZMVUlEXHBhcn0= GROSS DESCRIPTION (test f0bcfJUbUEZepUNdGzRkLV code = 3366) EnYSCvd2ajQVVvzQXoEnSl MzNcZnRuYmpcdWMxXGRlZm Bmv6uhn815rPZoa8atNXCw XgQ5aFEqKNUyxSCsD156b2 nny1iofkZtaZP1ZOIjKLL6 LEofzbRuhqG6WLpbzGKoSc M9WLkphwVuQQkutkXaxdEr Qic4MJKuT198ZPK7qCjcn9 bcPLD4NMVyXQIhSdIjDz3b jJXnK054JFWeQFMQFHBarD h0SYHtnuNwteQszJTCb813 M108u3uaALKhlaHenKbSym tmy7erT948YXEwmXInrsMu TqGvWIQyrCOgcJD2IOIaQQ 6zozqxOcEoIP7qnooqPpEn GX3xozq0IwDpWE1ackjbBi XjOTptPWKvffkvDFDrr2Nw wtrcHG0eE3Huv5A7eP9uiB SzCAGvkYRhNcSfDKWsul9n uWDxVJmuh3UrHIS5lbQ4tU FypZBgKAFwFN10Nmjte4Gw TskrDBZ0NDIllnYux5Clr5 toSwEfviVyY9tqQ4DfJFGh NDWxFUNyRgEqlqMwt1Wat7 SxyCBfoRc0y7rsCYPwBXBw mKuvv0jwOHX8WDEqB5F9vF Ijy4mbNBdjBKCaiQG1lgle PMukTAYyouX1hymfPZwcCB ZunUJ5hvhhWDqiIKNlKzZ0 ydooHWrlQTLdWFF3LHjvw3 44FSD7MNbxCpcbZWmiNUUg bmNvbnRccGduZGVjXHBsYW luXHBsYWluXGYwXGZzMjRc uMxkiInasT2nEuSgTmUaVA bjRQ4wXUXdY2jvxHHwUTKm BBYpJ3xoPsEnoG7nmMruET dwcdDcGPYbC1XutqRlENSt RW6tKIubrVekbgSwyUAsmk dgdLQvYTEfKhl0ANBtrnQ3 QJOqOREtazMbTGQdK5c3a6 EfrB0uXNpvGJB2 MICROSCOPIC DESCRIPTION p4iboOWyTTOboVQ5WyOjLA (test code = 3371) Lmu6zxd4DmwXCipJZeGQof gVWjbhSjrb13rTL5vU42ZG 6mWUBuVnK1ICXnouN3Sal9 KYFtJPPulRWuU024w0wma9 gtrzOhoDL9gYriEKTxbgtl TmR7SLgyUERdmsoaVRm2NZ qpUUAhtMP3SNZlbXXfB0Np PVZxCP7opfd5VYC6DCwmZY HeQdH6HNRdmUVhYNUgaHlt LWixq909ODT4ZjNeHAPbtx KknUfddF7hHnQvWZBLGBCw i0VxEQSpZPgxUUW3 Gross assessment was [facility] performed at (test code Medical Center, = 2777) Department of Pathology, [address] [place] [id number], Technical component was [facility] performed at ([facility], = 2778) Department of Pathology, [address] [place] [address], Professional component [facility] was performed at ([facility], code = 2779) Department of Pathology, [address] [place] [address], [facility] Test Item Value Reference Range Interpretation Comments Case Report (test code Medical Cytology = 104) Report Case: [id number] Authorizing Provider: Oly Whiting Collected: 06/07/2021 11:18 AM MD Page Ordering Location: [address] Received: 06/09/2021 08:38 AM Service Pathologist: Sean Gibbs MD Specimen: Common Bile Duct, CBD aspirate DIAGNOSIS (test code = [id number] 3220) FuZzEwMzNcZnRuYmpcdWMx IHtccnRmMVxlcGljOTYwMV jyylPySKBfeFXbC1Dvdkfx CVbgGO8vAO1cvFpigNVkrJ XsFLOaPmIrc2dwz101gQQm v8xmKAEAlnzovWz1yYymO0 3ze3E3XhivM42wwNJmOBO4 AUPgOZYcvXQuREEnJSV2VA QlgEPaK2bpEZUkXA2mdczb KWpeDVdyZWOhpZL6MJEhdP JqF1JaCPWxAQetSOMxdrt3 MiEyLn0ilWTfpGkxWLehCH NmFTSnAXkbESRkOsGaC26X HE8JOTNZKBFxQHLAQWLKH1 TTWhWSLWQTVHCOXYSuH4jA T8QHAA3IYJgtmMInPSNoER 6rQN2QJYSYPxBmPu1WCT7A TElHTkFOVCBDRUxMUywgQU GMXr7ZZKDKWO9FBFDeTSZh XSKsa04uUZ08ALwkQAG3h9 xydGYxXHNzdGUxODAwMFxh bnNpXGRlZmxhbmcxMDMzXG G6thYmKBNcKYpaYERoSKxl Bg3jgWJgjMjuCkKgKQAuq1 aurePMezgsmSw6t1kwPHOx XyH7gOZjBXguN1ftqiVdwA AiNFBzEQg2sK38CJUwjE3j pKHuMXwdljBrAnG3FLitUZ KyImL7QWPwkPSpDHAzR6ry ZWQwXGdyZWVuMFxibHVlMC F3mVevn2D4bOUjnACbpSgd GrKhIwGwFwITy5QzOHm3vI bdN3IuRRBzFuW7mNEdINHl UAapWLUxRZCczoX1aS19OO bawoX7zHVub4Goe31bh701 eJ6srFGmGHQ7YTRqCZHvqR DdTIRsXYY7QZQmgRNaH1ii IYBeIX1hpviaSNneETbrZL ZjkQJ5XKMxqRNpU3BoBSFm NWakDKNrbyp6DiAsJi2csU VipQwbCWrmo3bvo5thcXJr Pkd4CWFqSdIbBejbKKatv2 Jnm5ltVRVxjm3kQHQ1dRHx fQpnr6T5zDHaGOGesQHsJD GiDO9hbKAlAWVyzF6qufcq XHBnYnJkcmhlYWRccGdicm JkKb0vvImiWEI8XUujX9pf sQ6iOjB6DPorQ7lgzI9eQT j8OSzeYJBxiYC6ssW6LJHs dSTzH1RzlN0qRZYmGY2ftm m0n9heZCP7PDcdQHYcObJ5 ogP5ZJOacCJrKAHhzSkuIZ xfb338RQW3RjOwQPSwp0Ks L8VcnGbpB81doCrqA55rVH NmdZqxiG2aqWtndO7dVlOp JaMjJMyixTxaVU8qHBEqP8 gyyXXlKNTlELXvF4wpZeZr dA4dwSyzKXvossSaVTPvIt v6MAKhqMKcBDHdKix3NKOb WXReM40hkctsSPF3mE7xz5 cfe9ZiVOwpLHH6TOUyd20l DPbmlgD5XBhjMp74YBdkTG F5FSgfzFOebI0= COMMENT (test code = m0aheTVwAPVerZY0AcRtVM 0815) Ejc8iqc1NvkBEucIXuCWeh jERmisCrgf59dAR8qH99BV 3fYZSmNfB4BCKhwiL2Cij4 MCGaFVTbyPOkW133g9dcb3 jbqnSlgSU0cWayQZFcinlh XfT3SJlyBGArbdoqOAm3VS kxEXXmjYQ2BTZpnANnZ5Do DXVuYR5taur5LZI3TQudKQ WrWnH2FFSojPXsSUJcfKhd EWumu373LHK3BqXqDNGyat CiaZyhuS0jEoOfSSJHWZCh dbY2hUB4JX0oENUyYYE3iv 9uaWMgbWVkaWNhbCByZWNv laVyMXskLVxuwmtunF7mdq Nkt9eeaeAgQnZcLLY1UQjm dmVyIGxvYmUgbWFzcyBhbm NlTK5iXD9bn7Ftz4NjFyQb pOOnMGPkhE2qIV3tEQWbah EwELCqfPXsn6BfrdXzIdWg FBL2SZ1hqA3wIUIqkMXoeA I3dGEukLO9KJrbv7UnYhom iAGwQRZxd00je5VoeZOjMW Mvr6Sbs6YhxaMibaxpUPqd MV4nnXFtTxEJmKBmr7Higo TbsKvgTXPcz0bkjqLpXGWu ZWRseSBhdHlwaWNhbCBjZW lvlmM9sQBpMO11G6zkBCXf eAJsGlMxyzWhcKVlPJj6kB PwsBD3AUSnwAZymsVvgo9y YXNpYSBhbmQgaGlnaCBudW HoWHLjKXVbJBU5oK4uiAOy bWljIHJhdGlvLCBhcnJhbm ywMQRkzkZni9eyw6x3GZFd bHVzdGVycyBhbmQgYWxzby BqwI2euTkyRYinkDNvd2Ub VeLJq72rYBXwvXtmBMIoc2 oyyC08edEfvQJohBjes97d GhQ5XJL5r5tune6lS9Zuhb GfsCalbBawXFK1fO7mg7f7 ORRcwmHdAXWeAHK5UMXoBX OyzNKdEQIkOUWyaI2siVBi smOjEa5hYX1rdKzfiyPdN2 noTNSyQV8dJ0KbO3yqh09h JPPxslN4lEKrchydnSIrN3 qswhyyCFvjh7Q3fGkuEo3m hKFgFNRpenLCyXYmf6GzHY lzlrLpSEEpw7JsD4nqCCim oXB2oO2uy7n8GFBmqQ9jzN QHUbAuJCI6DjBaLLowXXR9 CPT Code(s) (test code a3fkoLTqUHVhaVU6CtJpDY = 3357) Zbx5rud5IguGExiIShYMtb eBIbptWlqv89iKR3bH61RC 5wHFTdCsX1NGBssoU6Cnv0 UIBuGGMdlWKaQ367l7bgn1 kpodVjgNL8sLiqSIVdtvpg VhX3PUnlRDPomstuBEt7HR jeLPNsiQG4FNFikORkS4Ke SELyIP4rvnh4QPL2UXnlOY IpMhC1UKVaiWVfIWNeeEiq XAzoy833RZI6SfMcIHFyll PxsFxuxH3pLjGoTLD1WXTd OFxwYXJ9 CLINICAL DATA (test g5yjrPJqJNCakIF6TpKsSF code = 3355) Xgx8pal9PkiMBgrXCgQOle xVAyrdVqni61mAI5uH43YX 6aINJeHbV2OQGgeoB7Izb9 MFGjOFPeqRFiQ514t8dmy4 kkyeFkqNA7JGMxIMXpG5Dn YU3rDMHzjUHhU81umLZyVH I9LGGnQGCsdKXmIYWhZLO0 CPRtcZTyF2lbNLVdJS8vbu tyEKpqWLwqHVGioGI5HPOp vGJoC9AuFPFoKZhjSERbvb l3UdVeUl9aeMJlyQogMAfs YXJkXHBsYWluXGZzMjBcY2 UlYLstJ60pzZs9NFSbcRKx bnige3YtnQbxzI61olRzp2 UnK5xdbDRdV7riP8ZhW8ry s06vXgEasUspcYwhlCAdxX ftYE83MXJpxhnfv3K3EXst qXiebRjihn0tDPXfnOIkp9 BdVHU5lOQ8dhThIcZjX70f cGFyfQ== SPECIMEN SOURCE (test n0myfBUkZBDdmOT5BjYgLY code = 3377) Wwy5www2BfaOSmtNApCFzh dWIyugVyyl64lWP4oH15ZK 5nVUEbMtJ0VCXxzkJ0Tdd2 KPWrIENdxKOcB961j7vfx3 jybhRouWQ3mHuaKPXeeyli MwY8KYgiUSCeasvlCMr3FV ftJOWrjUP5SWPcnSNbZ2Ub RQAnHU8wlmd3VWQ3OWmtKM PwHvA6CKKpiWYhINYdhGrz DTjhn368GGW6PiQqNCLhvf KwkVjatF4sJdVxONYAT92K K14uOixFVQWMWVEJIHXWAR lSQVRFIEZMVUlEXHBhcn0= GROSS DESCRIPTION (test o8wzaINhHIVcnEWwRrDlXM code = 3366) OwPSZhs6apRFXhzVLjWhGt MzNcZnRuYmpcdWMxXGRlZm Wra2isg407jXBeo3edLULc SbG8tENsVZHsjHEpO934q5 rmw1yuazIvyRC8GDUfPWG8 OAyoqfKkbmF6SXyncMWhUa M3PSwunkGdZIsdbmHombPd Wys8EMJfC895MNI4rYimm4 qqOTE4LZHpTVUgAySbPr7p aPKnM408ZVGpNRXVREShqC f3FCNeivLndwPqmBUHv487 Q684p6uiIZFfuwCukXnKrp isz1joW023IFJltPYvedMn MhAwHRDtgATebHL4ZQRjWA 5bjkkjMpWtII0bagxmEkXr IT5lbab7CkSfLX3trfwlCw EuWRcyOHScidyvYVWtv6Ru baltWU6pP5Yvn7R0vQ5ffL WtHIWgwWJvKpYmLTBcvn3k uRYsZOnbn9PaTER8zyX8gS EgyBSaBUWvXZ97Jqvxf4Ge HsdmUOY7QJIpfxKot1Hjt7 moCsYbmtCrU6cfW8FbSOJi IUPuHCMcCyLhrhGrr9Fmv0 GykTIzjPq3h8vkHXIjXLVp hCuig8oaZXT2IKViW2P2uS Wec1njKJcgHVHycNG6czbg LYwvOWNfqoM3dznrJEndQE LfxJM9puniELdjRXHwXgF5 ulayWHbpTGZgRBR4BBgaj2 29OAN4JZjlJslbEMzjQOXs bmNvbnRccGduZGVjXHBsYW luXHBsYWluXGYwXGZzMjRc dGgnlPfjwL0bGsOvFeMmRR lhQS8uEVEnP3wcgNMpEXDo GCQbX3psJqZefH9goUxvHL zvfgKzGLVzH4OwbuTkJWZl AT5gEYtuvMdnkhRspYSvjy ounOJxZKNzGgu8JHZoqtJ7 EMNuGEEjrnEcNQDsK9c4k0 YxmD1pLQlfBXL8 MICROSCOPIC DESCRIPTION s2zguZLlNYOblNI8ClRpQH (test code = 3371) Vtu9wdr3TlcPIrcZNfVOwh lISwbfKimt97lOX0hY41HY 8bKWKpFcR9BQWugbW1Few9 ZQXoBVZhuDQoY877i2zhz5 lszoRjvPY0jRscVZEltgex GxF5ADftYAKjteolLQb7JM lsNESfuQP1DAVzoEWhI8Cm IWUzLQ0sprd2VEE3MSpyHR HsKzA7VPJrbNTzPOSueMgh LWdxg953ATJ4UsXwNNNazd EcwRxedM0fHpNfGHSIZSUs g3LvYMYbDSsxKQV9 Gross assessment was [facility] performed at ([facility], = 2777) Department of Pathology, [address] [place], [place] [id number], Technical component was [facility] performed at ([facility], = 2778) Department of Pathology, [address] [place] [address], Professional component [facility] was performed at ([facility], code = 2779) Department of Pathology, [address] [place] [phone], [facility]33 Test Item Value Reference Range Interpretation Comments Case Report (test code Medical Cytology = 104) Report Case: [id number] Authorizing Provider: Oly Whiting Collected: 06/07/2021 11:18 AM MD Page Ordering Location: [address] Received: 06/09/2021 08:38 AM Service Pathologist: Sean Gibbs MD Specimen: Common Bile Duct, CBD aspirate DIAGNOSIS (test code = [id number] 3220) FuZzEwMzNcZnRuYmpcdWMx IHtccnRmMVxlcGljOTYwMV krqbXcENIzcXUiS0Mwinyn BWoaQH8eZI0icVeypZSpbE CzVZByJbAlw2bps410cEUl j9rkKCZVbrdooMt3pKbiC6 6yd8D8FczjN63ciTCnZBX0 RPXwFNMmyJIaXHJaBBK0RD YncIVqY4rlJMEgQA9kiwaz RFmiEFdnUYDazZN0FHPfwW HcC5BlQMXmIDqlJHIepij8 JbEmMp2wgVVryVxdKEktDE GiOEHtQEdkVZWsSkBsT69T BT7RQUALFWAtLIMOVDJGI5 XSWfGWVRTUMLWWFYXjX9yF U1ONLJ4XWXoraBJsMBZnPP 7vJF6EERYCPhKhXs1KWQ5P TElHTkFOVCBDRUxMUywgQU MFBi4ZNSBUFP4BNLOwBQVl VSOfd15dDB37WWahJVN8s9 xydGYxXHNzdGUxODAwMFxh bnNpXGRlZmxhbmcxMDMzXG X5jcEtABYgMFkiYCIlELax Uy5zxLFplNiyTzGbDCKkd0 fyjeGHtntpsPn9f7jsBNVh FzO8tRWqKFfwB3shtaOvaT VgERKhKXp7mC53UTMoiB8c gEWgVFkkkrNaOwF5UWddMF SwWcG9RVBjaBNfWJNbC5yf ZWQwXGdyZWVuMFxibHVlMC H3xLoys7B6sLZebFTxwEnk OhWnHuBzUrLGe8DiVBf7sD wgP5VzPOUfGbT0sEFsIDHv MYemTVOsRVWozmY2aV68MK zmypO3xUNix6Bfv15en711 zJ3xpPHrFAC8PKPrXKDawV XoKJEyXJM7ROEsaHCzC1sj FPYhRR4wczpaGTpyASzuOP FhpWW6OBFptTLmC3WqFJSo XWyeHUMckeh9EuQjGq1jzG FuwYelMRgtw9kkl1dilRIo Ymw2DKNlRgIyGxytCQagn9 Lbi0maFOSmmf3cNEF3aNPc yWzan0Q9xLWlCKNhfXThJZ TcSB1lqADpAKXgfG0olhlk XHBnYnJkcmhlYWRccGdicm JmYw8bnYdjAFI7STxjI3hm nK1hNiS7LSfpO1fkmZ1hEO r7YCssQPSluED8mxK7NYNs eSYfW7YymL0iZXSmYF3hzt c6r6xtJSX0HJugENOxEkE4 jfL7OXLmtKXgMAHcoCqtOC wfb672FJO6NcKuNINlk5Ex Z5ZouAjgA13txIxyY39zOZ QyyFhqpY4xiNeveY6iMnBt UwPrGXxheTpkGV6hAEXdP4 vtbGWrHAEnGRBoE7jdOlKq fZ0geAocOKefieRpLNSkOk d2YOWovVIxEFTkPdu9UPVe FBXlJ90imtjaQCI3wZ5ad5 zro1VkSHinTEX1QZEwm40p VXphnrU9UQsqXp66AArdQY D0QDrvzIRvmP3= COMMENT (test code = w2uibNHtUGTyvEP4ZgImDM 1116) Dgg7rbd6JmeZFgjUOzAGeu mENjlaHwfi67lJH3zV30VS 2fELYxJcA3KEAxykT2Mwc3 ARQtQOExaJNhF043a6lsf8 stecMotML1kIhnGIRghmfw KfS7EHvdKHNbaxqdGIq5KS ccECQneSQ5WEHnhPNnO4Ur ZYWdJW9nfmv0UAL7DUjqIP OhZhE3RDNyeRToLFHhoSsm GLzvv408TYN2EnRqGTZsrz OfgFhtxG1fDmRjEKOCRIMc hlQ8qSC5GD9sUGXoRGO3yj 9uaWMgbWVkaWNhbCByZWNv qdAkYZazSJksqisnmM0sts Nsf3sacbImWhVqKHH6YOgj dmVyIGxvYmUgbWFzcyBhbm LkMJ0kWM0fv8Rkl7QlApSd sSLbUZDiaU6oOH2pHINpay MxUGPshMVlf8FbjeLnJoJj ZHN2MZ9ghE5zVQWthMLckF Y8yPCxbDM8DOfjc2SbPegz bWMzHYAmq33vq9BxdECnAM Vdy6Hhm2MrgwDdtimnIFed PY0hlNOlHtTPdBPtn0Fqlh LkqIspFLIwm3nnwjNwINWs ZWRseSBhdHlwaWNhbCBjZW rkeiO4tOBsYH18U5xxNMVi hRKvAqGsssZvmHLvZMd2aB XesWZ0BQNmeJRjobExkp2r YXNpYSBhbmQgaGlnaCBudW TgQQVmWQRgGBY5kL4boCOc bWljIHJhdGlvLCBhcnJhbm kpRWPsouIyk9gsx3y3PUOe bHVzdGVycyBhbmQgYWxzby MaiR8ofYsxBQbklOUut8Wt JtBHf80aRWKqqAmpQGSsd9 avdX87vfFeyPZmcQdwx64h QbX5CHP4f5jgrf1cX4Jhkq MoyDdnuKdzREJ5oT9ri0m9 CRZvudOnQDOqYYQ0PHCsIT LedLHnUAOhPSJrfM3yuJSa huCeKm0jKF8etRvgdkOxF4 toNWXaOJ8oG2ElJ3nnk42s ITAhxsL2vTFapntsxNUxA3 gbkipsHJkfv6X8xZzuSg4h iGWpUQSwmaKMyBGqx5HqDL celzZnGVSds0WtM7xqEJdo hNO3cW7zf7e6HZIdzS2slJ NRWrFeMDX7NnKzSQhwPHZ1 CPT Code(s) (test code u1nijGArJHAnzCZ3XpKlTV = 3357) Jko7cxi6VttQMzmHLjHOfv mLQblkHsze95cAL0lW71QG 1dENPfNuN4TRIfnoF2Bbr6 CFNoURUwvAMdU221o2kty4 pjsbGehLB1uFgfZUVmhbgg QwN4HOrpBGEgguquHWr3WC yoTGCqoCI3SQWqfOWrR9Zc IHJsLW9gpjy2EJE7GCwiEV IaSmD5NNVpzGKiZXCdkIdq ZGdjh167YLU0PdTnEFRuob FruYgpgM2gZnXnFPK0HJXy OFxwYXJ9 CLINICAL DATA (test d5oppARgOLEbeAQ7WmLsIW code = 3355) Fay1olf3GeyIPveMUuWZum tOAjmsXnsu66cOZ2xQ98NJ 0pJZRdBoS6EOBajxZ1Ewo4 JLQxZXZhuTTkQ353w1wdq1 vanxPacZC7SUWyKLJiQ4Na XX9wMBLnvRYhR05ctMVbBK G3CWAjQARyeVZkGNWfRBZ3 QEVpmAQqI2axACQrGH1mtf ciMIxnKXzfJHBqeEJ8WRVm rIQiR9PzMNWlGHqcWHFbvc x1PnEgQj3ioNHnhVkwWAgd YXJkXHBsYWluXGZzMjBcY2 IkVXnhX86reXu7CWGgsXQy urdbs1SpuRhvwB68fqGzj4 SxR3znaLKbN0mxT0KqV9qn w51uGlQjtHnpjJgbpEMjjE jvBV56NFTjtdczh5Z8GXsi uTevkEjmxp1bXLEgcSJov8 AxXBG9pRD6lcPhIlIgH65p cGFyfQ== SPECIMEN SOURCE (test e5ksqLRgLCJauCR6JhLoZX code = 3377) Szm7gcf9QtoOGyvWOmUXzp tVInxtWajj56aNA0pI23ZC 1oLRGlGyY4SBTvglI6Xpy7 LAQeALGrsBBsT208k3iwq0 lctvLwmII2pXttROZcmrcv MiR5NJtqUTWrysokCLs4OB xxWCUudQK9EPNueYNaJ2Ji BZPeYP7wzxv3JAR6SZudWE KfAdB4GWWfwAXdQPUvhLus BYynx827QZL1VgSkNRYdfg GbgOxeuB6mKvHjRLCTN89R Y94rEtmFIZAFBBIGKUTVGU lSQVRFIEZMVUlEXHBhcn0= GROSS DESCRIPTION (test p7ihcABwFLEkxYBcEcRqPG code = 3366) GoSZMsc3oyXQLgnQBsQlRy MzNcZnRuYmpcdWMxXGRlZm Iie1vph102cDOmi5erEXOt VbN2sLSkLDEcrZCmD465o1 nkp9vxsxHyqUL8ASDrBRC6 GFqemoPslbG6NAyhuVRaHv L7NCxgbpZhBWwgfnMjpjDb Uir0AOGyJ799GTI5tOxez5 ukDCY5JCBwDMInMgKlFb4c qGNxH432DHSxFPEYRLZcyK d9KKNewuYdilWzeRKOs564 C200v3daSRFtqxYnpCpQsr gvy9bzI421FWBvvBXcpgSf OeXeMBTeyUCibNO8DGLtUH 7fhgggQzVuKA7obhmlYvEo BV9obns7PePjXN0kqxpvRn BnALqmPXHegqcxGPIsx3Uv xbwwBJ6nO3Xvd9P2mT5laL RfSFIjcWGmCrNkRRVqrc2q bCRyXOmfj7DrMOI5koR8zD DflBMiJYXlDF88Gezao9Fp CyjbCSK0DHGjkiQds6Sfc7 lpNlAoicNpT3nqH7JvFQIe TRJmAEXzFdHssjQyc6Yid9 XelMYxtAk8c8baUTTrPURw rVuvw0fbCYG6XLLbE7G2eQ Zlv6snZEtpKMTtcXJ2tjci WLudLQUuaqY5qolfASrsAS RaoKN2gasvPZgjHPJcNfX4 drnoQFygRUCdEIZ9PMaqy6 74JCY2BOgiDeolILinZTXy bmNvbnRccGduZGVjXHBsYW luXHBsYWluXGYwXGZzMjRc zEbysWztnQ3pFtIxBoMsNG rzQR9vJPWbB1aliGJmTUPf OHDoZ5vbPuSxtS7wgRdoHB djxiDsTSRbV8HpgwLwIMWb CA2oYLcduQnhhlBunFQktu njtFFgUNReOts8SXDasdU8 NUJxUWUgsqHdGFWvI4w6l7 LuhK4iENfaDOB1 MICROSCOPIC DESCRIPTION b2czeSPkUJXywJN8UaWkJX (test code = 3371) Xyt7yxf5MjiXYvpZAjHTej aWRidaOwid39tLN1jA13EL 7iVJWtDnT3HQElohB5Cwj4 EGNwYCYhzYAhV500g3mfm8 dydvZkcPT1kDshMIBkszpz KeF8BLynEMXqweyvKLz4IP dlRSOqyNW3OEQejYDqV9He ILMvRM7bydk8PCZ6BNttPC KmNbE2DZZwdPDiCKRklIpx UTztd203VHV2XoVdMJDhyf OmwLfomQ6cXqZhHIBPFTMn b6ZnZVBkEKpsJXS0 Gross assessment was [facility] performed at ([facility], = 2777) Department of Pathology, [address] [place] [address], Technical component was [facility] performed at ([facility], = 2778) Department of Pathology, [address] [place] [address], Professional component [facility] was performed at ([facility], code = 2779) Department of Pathology, [address] [place] [address], [facility] Test Item Value Reference Range Interpretation Comments Case Report (test code Medical Cytology = 104) Report Case: [id number] Authorizing Provider: Oly Whiting Collected: 06/07/2021 11:18 AM MD Page Ordering Location: [address] Received: 06/09/2021 08:38 AM Service Pathologist: Sean Gibbs MD Specimen: Common Bile Duct, CBD aspirate DIAGNOSIS (test code = [id number] 3220) FuZzEwMzNcZnRuYmpcdWMx IHtccnRmMVxlcGljOTYwMV ztntRnALGzdUYeN5Vrpmwa AVazUN5eBJ1gnFibsAYhhT CyCKYzKqOkb4uwt441iJZu l3lpHKXNpelbjZk4aUfwJ8 3vi0W6LfumZ66bzUXgXNG7 GBQoKVZajUQkCCLkIKW9RZ JpwSDhT9oyHAXtCV9ghyjc VOmnFEtcFBXrbZW5TFMusU PyQ1HaQNNzKCaiYMCwhjp0 QbUrSt7kxZQmzTxnRHffGJ WmRAZrSLhxPTBlDaYeO31U QL0EDAOTAMYtVUGZDZYCZ8 YDIdOTGKAJWMGOTDWtQ5fN U4NZHQ1JXNcawJYgSOFwEQ 2dTV0VOCBYNhDiSa0QDE2J TElHTkFOVCBDRUxMUywgQU LDMl8LQMQKOV8CNWYiFIPt BJZpz49rQH12VDbiNRK5k6 xydGYxXHNzdGUxODAwMFxh bnNpXGRlZmxhbmcxMDMzXG Q3xkRbZZTwJAzmZZTaJScu Jp7weFVmiAdcPeAjNLXjd7 fahcXSqgzewPz8v7rnZXWd RcQ3iIEaLJpwR9ijdrGpfH CjPTVdZTn4eB77UZRvbX2i lHWsKLmsnaGmMeJ8BFviES EwQyO8AJPnvDWaSCAqA9ua ZWQwXGdyZWVuMFxibHVlMC P2jKxzz2T3kXWoaVZstSkv SeHkQxDyDzNEi3JeDXo1eG gyX9OjDDUsNcA9kVGdWWGn GNcsGPHkGLDynqX4oP81QC otevD4wJUxq3Pct04jd973 bV0dqHTnVKG9UFIhUAHlzP KiWWZbEDK9GLBypNLhP9mt AAIyQK1zlfcvDLiwNFipSI ThjFE1FTXawYMyL2DgWJBr DObsVXTpyfu2BgIfMd5utZ QacVjrZZbbr2asf2qrqAFj Djx8CMVzCvUgIrrxPLojy3 Yor4gsDQVxib7xSUR3kXVr mQsgq5T9kBKzYSRfwPKsES JdRK6rtVKzLZYaqV7cjqhz XHBnYnJkcmhlYWRccGdicm VrUp8ugXfuZOA5BClfO1we mU2cDnO7HTjhM4qdkZ3vPX y1MXuiFDKjtUQ9wfS7JIJa eCAyO3AhsP7aJTMlES6xdm p8a2zbYVD4CFhoYMHdIrU6 maM4AJSrxWFbRGFetWohKX lpt705AMT7ThWmRQCuy8Lc U7QauLanY95otYemR62pOR GbhCaakC3wgScoeC9rEiSi VhPbIKaydJitSU5cNASrN9 oogNDbRWCwDFIjK0xyRzSj pJ0aeUshXWxaxvXxPWNiCe q4JXLqcQFaIFXsIzi9QZVn JFGwT78ojrtaJLX3hF8iq3 gjx7QjPBiuLYL0MBRtr25o MKwxcrV4ATklPd74LTqrNR X0TOsfmYLraL9= COMMENT (test code = e1obgAMcCAKjuYC4IaNyRY 8130) Oic2sax2NniEAdfTUhGAfr rVKvqxCgle94qOM3bU77RZ 8eMJUfIrR1UQXfuzE6Rrt8 DCMrAVXvmLSyP995s3mti6 wydhQizOB6cEhoAHMeshup GmH2FFppIVTmfivcDQc0TU mpYKAnvEQ4TJPafFEuT7Rf ILCfGS1yurp9MNN9SQptQS FiHzI3DHSeoHUrDVLzkRef RLrfi346KXP8PnSxJTPylc ZfsJrgmY2mAzTcODGDVMMk dbY6gFF5OY4lRTVhUBE4at 9uaWMgbWVkaWNhbCByZWNv cfDkAOmeVVkwvrdpkI7gaz Kko5ymnlFvMmIkDOG2YLpd dmVyIGxvYmUgbWFzcyBhbm TtEN3vGQ2yf7Env3LgXpJw gMUmJPSmwZ3rJW0aYDRzoj FjGXBowIDgb7KuerDcOgCw TXO4RN7bvO8aCKWtrROdlI C7hGEptQI6QFeec4VwUzpk eOGwBWEra51ww3EbiZQgVM Wtc2Hql0UoqlQhlipyEWyv XK3xgGUzBwNPhBDvm4Hrqg VizYcqCCMvd8zdrrJhPHUi ZWRseSBhdHlwaWNhbCBjZW rdbfN9vXWrPH11R8fyGOIh aMJoGhFhrfGulZDyPSm5gU NudRS7LYEocURhcxBbxy6x YXNpYSBhbmQgaGlnaCBudW PoDACkJWLiIWT0cD0jyEEo bWljIHJhdGlvLCBhcnJhbm jkIHIuqmMkh6ysb3i4VKXq bHVzdGVycyBhbmQgYWxzby GwlU2pwXuiVCmpaICjo7Rz BvWLx83vVYXgeIssMLYpj9 topK19tvPgbXSlzPdks13d NyC2SDL9h1kmgy5gF3Dkhl QesYzxmEhsDKE4aB5bt5s9 HSFjskHcANQoWFH2THNpFN SwqQPhREOmRFPhmC9npMCp hoBsCs9oGW2tbAinrbHcL3 giLGWtLR2tG9TcO4esq08f PDGxgxH4wXIiugazbAEkD4 pmjnjxESrhx7J2sEafWm8o zAYyWHJjwxHGiSNhz3NvZU amosXtDGIjv9RrR5sfQWct bBY6dT0kh5a1BJAgaX4tjL RPJhXoMOB3UgScOLrvIIU5 CPT Code(s) (test code n9lesLJlYVQcjQB0WbSmCZ = 3357) Zpb2rob1CowPQhqHBiKPvs aKTlvnDhsu79pHO9pS33CB 8fCDIwOxG8HQKgdcC1Gdy1 WVBgSXFgmFYgW518f2hvw4 qykmImnPA8pIjzHLYgqqtp GmG4HVrzNHAmotywBCt3YX iiQXIjaLR8JTYpnIQjY3Cw HVXvDF5iaoq1GRK4TKtgVK IcNoC0VJGldMKnGFOybPrd DUnvz364WQX0NyLfPDOlje YumHevkV8qUmDbWKA1YJJk OFxwYXJ9 CLINICAL DATA (test m9wgqEIaFDMfcSH7RdOyQD code = 3355) Krs7pis0WjzDLxzFBlABql dVDneaHilg41zJV6gO57QB 9iYBUlKvR3DSBlzhS6Jvs2 QFMsBIHetMExQ342b8atc0 feonOzmQP0LVYoNGScF1Au OV9cPDMnwVJmT60wjQNtEY N8MFYmSFBqoOSdPBKzOZR8 XERsoHBqI6taRZDkAY4ksj raTXjqYCktCYZswMB9GKMs gQNeC4ZeMTQoVZlcIEBqyc c3FxKvWb1nfXDiuZgyWPxq YXJkXHBsYWluXGZzMjBcY2 CnQWtgA33pzMi3WKWcoUMz agkbj4ChiZtyjN60lrQdn1 DoS5mhiRQoY3lfS2QxR2jp k76cKnHvcNnvrOzltKSbzB vtPN13BKWqqcssx2T8VRmf lGyvxHmona5lLKOhhCJwk5 FaNOL5aDU6edNuRsDrW14a cGFyfQ== SPECIMEN SOURCE (test v0yvzAPjGCJdnSJ0DzNxME code = 3377) Jbl1zzc8TuyYLslCIxWOuk sGNatjOjhe65wLF9pZ02UA 0mIKPwYeY2TKLchpB1Yll6 YMVhUHVkqBUwN286s4tzv6 haqqVphYX0hXhqVBBvazgx ViP8KOnvBYPhbhplCYz9IF qaLPSjqLM7UEQjfLQdH4Hg PTPsNF7nadf1WXZ7HIfvPI UkAxJ6YTPiwILmOTTttFlo HDxzs290JMM2NyIiIPAxhb ByaChzmB6dFuXaFJBTP15N W42cBciFWMRSLNPUXQBZLG lSQVRFIEZMVUlEXHBhcn0= GROSS DESCRIPTION (test v6fniVIeZZPonHWjPrUlIZ code = 3366) WeGPDtm7gbOWLukXXoRvEt MzNcZnRuYmpcdWMxXGRlZm Icq3nds379fQDbx0gxKNSe LyB3lAFmNYFloIHbR327f9 axm5shorUnoOX9APDmYOV4 VOwojnRrqtQ9UHfurSJuRc K2BCaivzMgGYomhiDvalBg Ixn2WHTpH081TWX2pBpkz1 ztVDS3TRYpSWNbKuKlUg7h gUUgZ064QXUtQKCFEHGfrM p4XRBjkfZjucHsiMQIx832 W498m4szZXUescPmpQzSlc yvu5tuO276FFWuvVQwnpJa SjWcANTgaHCjwSI5RIIyEL 2mumzdZvWxXG4dnxrlVbQi IZ6naku4EpNpCE9qvepwDv QcCNowKSEjmngoSPYyz1We xivlCW9wF2Ukx6I0kE9ugC CoHHWvqXSoGuFeFFNycn8f cCTbXYgnq3MdHLR6bzF7sX GnbOSxWTCqAN67Bghbu0Hx HuxhNML3QUOlzgSrw8Htl5 wwWoWfgiTxM5wfB1GsEYNy FJRoKDCmSkDernOrd6Uxg3 NbtZReuOx3h3wzPCBqPSAg cRmpp2gmGXN6DGRgS7Q5zC Yjm4ijXIdjXAPdsNI5odoo IWadJZEcjwJ0cfjhURqpAJ IpkFJ8zqywIUgqCNKtSlY6 ybvoFYnjEJTxABS8RUdfe7 73DKJ5RKghDjenCZhtFIUq bmNvbnRccGduZGVjXHBsYW luXHBsYWluXGYwXGZzMjRc tPjleChbuV8qDsJgAsEtPJ qiUK0gYUReG9mltECuMPOc XPFjU7doPvAohI2crYtdIS cjgbWjNMCgO3AbynPeGUBv IE7jSHqnhTvwciKvhIUtko wusYWfJJZiCte9JZKxlrS9 ZRZlEMHpfoZaWYAwU3q9x2 MdcK7kMMggDTB3 MICROSCOPIC DESCRIPTION i9nptAOdCBNdeTV1OoZiNN (test code = 3371) Dep6lgu8VemSBbwQSaIGlh iJKpyxMtxv16vAC2yZ20DU 9sYDSnMoP7IFSpaxP0Xbx6 SMGjRGOjmXXeR866a8rgt2 lttzVwlSA7kLlpWPRxycat YqY2IHktMBPulrgcTPp5MX guFYRybFH4SZYirDImD7Aw GDPtRU6qtjy6KPD1RDoaYV YxXmC8FTKssCGiUBWkpEzq ITese864CLV1JcFqAFPrnj ZndZhzqK4sFfKvIAEOTEJq r3CbHJZdYFbsMXR8 Gross assessment was [facility] performed at ([facility], = 2777) Department of Pathology, [address] [place] [id number], Technical component was [facility] performed at ([facility], = 2778) Department of Pathology, [address] [place] [address], Professional component [facility] was performed at ([facility], code = 2779) Department of Pathology, [address] [place] [address], [facility]:43:33 Test Item Value Reference Range Interpretation Comments Case Report (test code Medical Cytology = 104) Report Case: [id number] Authorizing Provider: Oly Whiting Collected: 06/07/2021 11:18 AM MD Page Ordering Location: [address] Received: 06/09/2021 08:38 AM Service Pathologist: Sean Gibbs MD Specimen: Common Bile Duct, CBD aspirate DIAGNOSIS (test code = [id number] 3220) FuZzEwMzNcZnRuYmpcdWMx IHtccnRmMVxlcGljOTYwMV qgvaKdVKQedMErJ9Zepvwy YYwjXF0tCS2lcDggdNJehD EfKCHaCnAjd4ecz122yASk h1akCNVQnqxgvBs8yWouH0 7ff8C1OrxjG91zfTUnXRY1 GRGfBVUpsWDfVSShIZG0YS MsmHDbN1ziWCZxCA0lfvuc TIemGCxmHVGrpZJ9WCEdlJ WvV4PfANRqUUqeNBYxrwv7 JnBiMc6zdCLgpSayICylUH KfYYIeYSavFWKuQzQfV24T TJ9FYZZHRLPpTDSETKDVE9 JRQjTKUAXNDMVLPRQxC7wM G4UOBV4KMEqydGYqATNqJX 7zDF1NAIQCVyBoHc2FQY6Z TElHTkFOVCBDRUxMUywgQU SXQd0DVMXFZD9TTJRwSZTx JQKjz56mFM99FUxrCCP3a3 xydGYxXHNzdGUxODAwMFxh bnNpXGRlZmxhbmcxMDMzXG Q5rqPpGNQdUJbuZVReAOfr Mg3ffOBpdBnjIjMsRJUkz3 fdflLFengycFo8b2vyFTKm TnE5zQMqWOqfH3bgheGguD AaICYxQLz4bA97CNAupJ3c sINwTHtwloMmXvS5USajIK VvOiT3IDLyfPTqTKRbO8ai ZWQwXGdyZWVuMFxibHVlMC L5kHytb3N1yOQbhOOdoFzk HrPxQrMnCtZVh2GdJVr7mP xnF7TqMUEpUcY7zPHnTSAy RRjoAXFaIWQrjrP0fZ92GS rribU5mXQpe2Jpa22nq221 yI0xvIKmYGB7QVBwHPErjP XxJKJbGPU9FLPixQJfL1is ZYPvLA6grfxaXYlmMRedVJ KvnOM5HTWjrXYuA6MfAKGk VKaeKVRbbpj1DfMePs3igK TkfLxnLErhj7iix3pshKSs Utg6HHUzSjJzCdzyPNglp4 Daj9ghUXKsli6pINE1aXTd zXlrv8F1xJNcJRDapVOwQM XcDP1szKEwTNUkiF6rwihr XHBnYnJkcmhlYWRccGdicm SsDc1gvSttSIO7OXtzB6sq lF2kIjL3ZAbsG5isfS6zGT r9DDwfFWOqlMT1czF5UKPm oMRyQ4FdzH7jDKFpYZ0cfx g3y4waQQX9HInrPCQqSiD5 uuH9YMNlsCGlDIFsqVgaKF lwe284MFU0OtWkHPUvh8He X9CasWqxQ84cvAbtE80jQM ZmxVbnxT9roZqffS3ySfHe SaVxUVnxdOcpIZ0jHHTuP3 dlaUBbQAJmFEAaO7vfTnHv cC7hvOosVXwigpCvPPGnPy z6BEFyuWWqEJLvSbh5JTDe HKQyS07hhtxrSFU9rI8xi7 sut5MwSJvnPYV9JRKwr25u POisfhN9PNxwJi59EMbaRY Y9RNgnkFOcgI0= COMMENT (test code = g8foeMEsBOQlnTQ8VpZvTZ 8065) Pad9ryy9OwqJQrmKVqLLvb uYQyqaVwdl23aLG5qN37VG 2aSWKsXkK9KEYvtwE1Wns8 MKZjQDAijRHjJ691i7cum5 ffmsHsyEL9kCjtHNLxgqth LxT7LPncCTYsotpjPZc4KD zdHJHnePB1GGIplUUxA6Dy YAUiFK6uaru8KOY2UXtrTM PuJmX3QIWgbNCfVRPzkKkb MYylj070NEA8JlDiWIZios AngYzetT6lLwKgFQOFUPWx hiH3nAA7FF7mAAGoYTH4rs 9uaWMgbWVkaWNhbCByZWNv mrDtNTlxXBwdvdanrW5klw Dzv4yphqHbAkXxJBI6VRoa dmVyIGxvYmUgbWFzcyBhbm IaXH7yUO8rr1Yfi6TwOyHc mTObZMBpqE7kVA4uSDKloh GlYWRsgVVbn9OllaUlRhMn EDP3HW7qzE9oTKUxcSTldR T1kNXsqFR6JGwmp6NfAnrd lOLvPDNkj86cd3YruOPmVG Dsf2Hzo6DbjkPpumlcWQcs IN6guGJbOtXEtPZvo2Dpjz FufLobWBLvr9qfaqKhVKMd ZWRseSBhdHlwaWNhbCBjZW smkiM3kPJfMN04L7grLWTv pRHiKjJjqjTaoCWaHFt5wD XslTV4HAYvuMBaimYmgm7v YXNpYSBhbmQgaGlnaCBudW UoZMVbQJQsDRS0bC3thJXe bWljIHJhdGlvLCBhcnJhbm twZDItutBwj3euc3v1TLAt bHVzdGVycyBhbmQgYWxzby GwxY5vtRauGUycaXNpe0Bc EhPYt84nZKRtyOygGOGml7 cxqD81lcYziQHvzLjxj94z HqX8QXF6u3lyzq3lT7Bqqc PzsNgfsHmgFNV6mM3gg8t1 RKUtsgOcTBGrPMM8HCEtJL OotORmKATcLFPvmR8gvORb vbRsXf7iZN8ufWhdvzNiZ2 coFTFaMA4tN7OzB5jvp68e OVSdqgV7vLUymiggcAIdM0 dsoctjQKsgq7N0cPheYy0p aZEbTBWatdNNmRJmj2MvFS ofcmGeVVPor3LdA8wvNOkn wLF2kU2rd1w6XZCzqU2ugB QGRyErMPX2GgDeFKmvYPV0 CPT Code(s) (test code c0npfPJbDRJjwET8CxIzEF = 4107) Zbf2ciw8QzrMJdmFVuBKfv vLEjmaAiih35dAX8hS34YA 1vBMGxJyZ6GGRlhzC6Ouy9 IMAtXJFqaEAnW573k9cfk9 nwcnUvyHZ3oBxdSWJxgtji UwM3CCudZEEvrigyHRj7UG xlEVAzdCB9RGRulOAyP2Xt AMSoQO0shbu8MKL8ENhnRS EjUiM4QCTpkZWxBVHakWyc WJtyk969PRT3UsMyXAPgcn RucYqrxT9xNzWzGWZ0KKQi OFxwYXJ9 CLINICAL DATA (test u3pgiLVvZFVsdKG4UtHoDB code = 8436) Rkf7adk1JfbKNtpICcKFaa vIKsmpDeph11aBN7wC91LW 0tVZSjOhI2WIJiqmH8Pxh0 GEUhWKChxODmT386o9lzz6 rcucPziJH6KDGdTPIzC1Io MR6bDPNcpBOqL95mrQEgQG F1AETaARObaQWgNNIpDLG2 KWTmyKRsL7mlFNWlQS2biv uaETdzJMgdTQVapRC2MPCy uOVgN5SmSNGwPDicVBLdbl n1PxNfPl9twXQxcUqfKMuy YXJkXHBsYWluXGZzMjBcY2 LgHXrhI70qrPq9UGHgxCXz dagpf5JpuKswsP75smXwo3 WnW1ledHBrU6qcA7KmI3kb o85wHhXhaEbyuFaabDTmsJ uwIR86FIJpwmrgs0Z9LWsw gMhnjFcire2kSZRcmJNkz8 VoQWX4kME4nnViObTlC85z cGFyfQ== SPECIMEN SOURCE (test b4vkxGKhMYZxqOZ9QcGzXJ code = 3377) Ndr7gge1DhvLZknAAtOXyx gWPnndGrvl52dKF8wG89DP 8mWGQtMaB7QXXrujQ8Jfl0 CUGpYDRlhMBkJ176y2jpd0 qmydLgfMP3eMytYAFiiyav MkG3WGmfAYXwvkwqQOt7MM hkYRLcsYZ1UEFxlCAsM1Zb XVLhLO6otcs5MEL8MCqdEG VlPeT9DFKmaMCePUKvwObz TWplk849WHK9XxPrNLAvvf YsfIgiyR2nAwQcUKHBV13A M44qFxhKOPRYDWLPPSBCER lSQVRFIEZMVUlEXHBhcn0= GROSS DESCRIPTION (test f3qebIAqRVMyfPJtVzTnRZ code = 3366) DvLLTvh4eoXACmtCVpGiPp MzNcZnRuYmpcdWMxXGRlZm Isa3mqd480cYGoa9gqDUVp DpR1yARwJAOmiDKiI717e7 dcg2tpssUymRJ4HYOqVPT1 XBndpuLeoeJ3JOsccXOpTq G5GZcifpLlCOrnvlNgioEm Zmf6JOMeL727QDD6yOwbm0 fnYUX4RAZhGDAjMzOeRe1k yEHzC861RJVbRKOHQVFaxH y3QICdhpNxxeQmiGTHe458 P023z8lyEHPzwuEpnCdImo tsu2xuU992IWMvhRXpxvRb WbRxLFNssXHtcRN9FQKvCQ 7abzhpQzLuHO6mctixFwGp MH5spaf3XlRlPG1clwwxMz DeVCupPYThepnwVPVcl1Sc szvqVM7eQ8Rvg8L1nK7dqA KxYPMfyHKiDfIbDQZkhj1o dMDwUQvxi3KhHVW8kjV7eK JupIElNFYsDK03Otfkt8Bx SisbCDS5XQThmcBfw3Dsp0 ztDcZszsEiD2lzD8PcGWEj MJTnVMZdXlSxioEeu1Jez4 QrzTQhfRw4q8tnVCUrMWOx wSwnu2bcHEP4PMYhI2S3cS Fmh2ptKSafZLJmwQQ3cdfy NOddLXVhtuU5cpncUFpsPD BopOC3phqrRZyiEWCeHcG0 lnhpYOomJGEzUFA5XVjvq8 79MEB9XLnzPfikRMjnQKZu bmNvbnRccGduZGVjXHBsYW luXHBsYWluXGYwXGZzMjRc wYkrlKuwzQ3aUrCaNnPpZS iySQ4jMWDeA6zynDRbISRg XVBuE4fqWhWweR3lhAjiFZ lgnvZxDNDiM9EexcFqHFLi KS5fJKjjbAhytpIorCCerv lslESuWWZcWjq1TPAzirG6 BDYbDNUpzsSbOODwM5z8o3 GneC1uJUujWHC8 MICROSCOPIC DESCRIPTION m9nbgHXhLBNemQC9ObBkQY (test code = 3371) Aep8hzt0NeyFQzpRJiIKmn tESepyCaik95nIL3xR07OX 2yXXJjSqO5OQFyeaJ3Awc4 EKDdJIYfmDIcH801r2tws0 kigjWgmET2pNsoATUmrtui RqN3LKkdWDHjasbwYUl8HK fzMOJraVC9JNCqqXTqK7Yv RPUuVL8nlkg3PNU0MDanQW LyWhO5SLNbfAZbIZKbiFnm FIkqn127BXY7XwXyYGUtyz OdfRoyeH1iFoItLXWDJZRa w4ZzAWOdIKxvJQD9 Gross assessment was [facility] performed at ([facility], = 4598) Department of Pathology, [address] [place] [address], Technical component was [facility] performed at ([facility], = 0303) Department of Pathology, [address] [place], [place] [id number], Professional component [facility] [place] performed at ([facility], code = 2779) Department of Pathology, [address] [place] [address], [facility] 13:43:33Medical Cytology Report Case: [id number] Authorizing Provider: Oly Whiting Collected: 05/21 11:18 AM MD Page Ordering Location: [address] Received: 06/09/2021 08:38 AM Service Pathologist: Sean Gibbs MD Specimen: Common Bile Duct, CBD aspirate COMMON BILE DUCT ASPIRATE FLUID (CYTOSPINS): - POSITIVE FOR MALIGNANT CELLS, ADENOCARCINOMA (see comment) Signing Pathologist Direct Phone Line: [phone] signed by Sean Gibbs MD on 06/10/2021 at 1:43 PMPer review of electronic medical record, imaging impression of left liver lobe mass and an endoscopic impression of 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 Cytospin slides show markedly atypical cells with nuclear membrane irregularity, hyperchromasiaand high nuclear to cytoplasmic ratio, arranged in cohesive clusters and also singly dispersed. Somecells show intracytoplasmic vacuoles. Overall, the cytology can be best classified as positive for malignancy, adenocarcinoma, in the right clinical setting.Please also see surgical pathology report [id number]. [id number] cm liver mass, suspicious for cholangiocarcinoma; mildly prominent periportal lymph nodes measure up to 1.2 cmCOMMON BILE DUCT ASPIRATE FLUIDReceived 33 ml yellow cytorich red fixative; prepared 4 cytospins Performed. [facility], Department of Pathology, [address] [place] [address], [facility], [address] [place] [address], [facility], [facility] of Pathology, [address] [place] [address], FK, CHEST, WITH [id number] 12:51:00Unlisted Reason for Exam - Click Yes and Enter Reason Below->No MIKA [facility] CENTERName: RAQUEL PINK : [...] Peacock Verified Date/Time: 06/10/2021 12:51:13 Reading Location: [place] [address] CT Body Reading Room POCT-GLUCOSE [id number] 08:46:12 Test Item Value Reference Range Interpretation Comments POC-GLUCOSE METER 96 mg/dL 70-110 : TESTED Melo Isabel [facility] (BEAKER) (test code = KEN[place] QUINON[place], 1538) [address]: Clinical Services Specialist/Techni grisel ID = [id number] for EMMIE MOREIRA COMPREHENSIVE METABOLIC [id number] 04:45:59 Test Item Value Reference Range Interpretation [...] S NOT APPLICABLE FOR DIALYSIS PATIEN TS. Clinical Services Specialist ID - SARAH MSpecimen moderately ictericCBC W/PLT COUNT & AUTO [id number] 04:23:27 Test Item Value Reference Range Interpretation [...] PERCENT (BEAKER) (test code = 2801) POCT-GLUCOSE [id number] 23:17:20 Test Item Value Reference Range Interpretation Comments POC-GLUCOSE METER 122 mg/dL 70-110 H : TESTED A T [facility] 6720 (BEAKER) (test code = [facility], 1538) 90991: Clinical Services Specialist/Techni grisel ID = [id number] for Nayeli Tesfaye POCT-GLUCOSE [id number] 17:17:57 Test Item Value Reference Range Interpretation Comments POC-GLUCOSE METER 146 mg/dL 70-110 H : TESTED A T [facility] 6720 (BEAKER) (test code = [facility], 1538) 69259: Clinical Services Specialist/Techni grisel ID = [id number] for EMMIE JOHNSON POCT-GLUCOSE [id number] 11:59:25 Test Item Value Reference Range Interpretation Comments POC-GLUCOSE METER 132 mg/dL 70-110 H : TESTED A T [facility] 6720 (BEAKER) (test code = [facility], 1538) 22801: Clinical Services Specialist/Techni grisel ID = [id number] for EMMIE JOHNSON COMPREHENSIVE METABOLIC [id number] 10:34:04 Test Item Value Reference Range Interpretation [...] S NOT APPLICABLE FOR DIALYSIS PATIEN TS. Clinical Services Specialist ID - SATISH FSpecimen [id number] 10:02:31 Test Item Value Reference Range Interpretation Comments Cytology (test code = See Separate Report 2629) [facility]2021-12-20 10:02:31 Test Item Value Reference Range Interpretation Comments Cytology (test code = See Separate Report 2629) [facility]2021-12-20 10:02:31 Test Item Value Reference Range Interpretation Comments Cytology (test code = See Separate Report 2629) [facility]2021-12-20 10:02:31 Test Item Value Reference Range Interpretation Comments Cytology (test code = See Separate Report 2629) [facility] [id number] 10:02:31 Test Item Value Reference Range Interpretation Comments Cytology (test code = See Separate Report 2629) [facility] [id number] 10:02:31 Test Item Value Reference Range Interpretation Comments Cytology (test code = See Separate Report 2629) [facility]2021-12-20 10:02:31 Test Item Value Reference Range Interpretation Comments Cytology (test code = See Separate Report 2629) [facility] [id number] 10:02:31 Test Item Value Reference Range Interpretation Comments CYTOLOGY RESULT POINTER See Separate Report (BEAKER) (test code = 2629) CBC W/PLT COUNT & AUTO [id number] 09:51:49 Test Item Value Reference Range Interpretation [...] PERCENT (BEAKER) (test code = 2801) POCT-GLUCOSE [id number] 07:50:45 Test Item Value Reference Range Interpretation Comments POC-GLUCOSE METER 102 mg/dL 70-110 : TESTED A T [facility] 6720 (BEAKER) (test code = [facility], 1538) 17832: Clinical Services Specialist/Techni grisel ID = [id number] for EMMIE JOHNSON POCT-GLUCOSE [id number] 21:32:56 Test Item Value Reference Range Interpretation Comments POC-GLUCOSE METER 146 mg/dL 70-110 H : TESTED A T [facility] 6720 (BEAKER) (test code = [facility], 1538) 62283: Clinical Services Specialist/Techni grisel ID = [id number] for SHYLA KRAUS POCT-GLUCOSE [id number] 17:37:43 Test Item Value Reference Range Interpretation Comments POC-GLUCOSE METER 124 mg/dL 70-110 H : TESTED A T [facility] 6720 (BEAKER) (test code = [facility], 1538) 07046: Clinical Services Specialist/Techni grisel ID = [id number] for MIHIR DIAZ Liver-Kidney Microsome [id number] 15:39:08 Test Item Value Reference Range Interpretation Comments LKM-1 Antibody <20.0 See Note: U Reference Ran ge:<=20.0 (IgG) (test TBRYIBRZ67.1-24 .9 code = EQUIVOCAL>=25.0 POSITIVE ) Anti-liver/kidn [...] (test code Performing Lab EZ = SOPHIA) [address] [place] [facility] [address] [place] [address] Edgard Jay MD, PhD, MICHEAL [facility]ney [facility] [id number] 15:39:08 Test Item Value Reference Range Interpretation Comments LKM-1 Antibody <20.0 See Note: U Reference Ran ge:<=20.0 (IgG) (test IAQEUSKR70.1-24 .9 code = EQUIVOCAL>=25.0 POSITIVE ) Anti-liver/kidn [...] (test code Performing Lab EZ = SOPHIA) [facility] [address] [place] [address] Edgard Jay MD, PhD, MICHEAL [facility] [id number] 15:39:08 Test Item Value Reference Range Interpretation Comments LKM-1 Antibody <20.0 See Note: U Reference Ran ge:<=20.0 (IgG) (test UHEOXHVO75.1-24 .9 code = EQUIVOCAL>=25.0 POSITIVE ) Anti-liver/kidn [...] (test code Performing Lab EZ = SOPHIA) [employer] [address] [place] [address] Edgard Jay MD, PhD, MICHEAL [facility] [id number] 15:39:08 Test Item Value Reference Range Interpretation Comments LKM-1 Antibody <20.0 See Note: U Reference Ran ge:<=20.0 (IgG) (test BIXOERPP24.1-24 .9 code = EQUIVOCAL>=25.0 POSITIVE ) Anti-liver/kidn [...] (test code Performing Lab EZ = SOPHIA) [address] [place] [facility] [address] [place] [address] Edgard Jay MD, PhD, MICHEAL [facility] [id number] 15:39:08 Test Item Value Reference Range Interpretation Comments LKM-1 Antibody <20.0 See Note: U Reference Ran ge:<=20.0 (IgG) (test MMKQVZCR56.1-24 .9 code = EQUIVOCAL>=25.0 POSITIVE ) Anti-liver/kidn [...] (test code Performing Lab EZ = SOPHIA) [place] [address] [place] [address] Edgard Jay MD, PhD, MICHEAL [facility] [id number] 15:39:08 Test Item Value Reference Range Interpretation Comments LKM-1 Antibody <20.0 See Note: U Reference Ran ge:<=20.0 (IgG) (test LBLUOXQH46.1-24 .9 code = EQUIVOCAL>=25.0 POSITIVE ) Anti-liver/kidn [...] epatitisC infection. SOPHIA (test code Performing Lab = SOPHIA) EZ [employer] [address] [place] [address] Edgard Jay MD, PhD, MICHEAL [facility] [id number] 15:39:08 Test Item Value Reference Range Interpretation Comments LKM-1 Antibody <20.0 See Note: U Reference Ran ge:<=20.0 (IgG) (test CAYJWMGQ59.1-24 .9 code = EQUIVOCAL>=25.0 POSITIVE ) Anti-liver/kidn [...] (test code Performing Lab EZ = SOPHIA) [employer] [address] [place] [address] Edgard Jay MD, PhD, MICHEAL [facility] [id number] 11:30:55 Test Item Value Reference Range Interpretation Comments POC-GLUCOSE METER 158 mg/dL 70-110 H : TESTED A T [facility] (BEAKER) (test code = KEN[place] QUINON[place], 1538) 832[address]: Clinical Services Specialist/Techni grisel ID = [id number] for MIHIR DIAZ COMPREHENSIVE METABOLIC [id number] 10:54:30 Test Item Value Reference Range Interpretation [...] S NOT APPLICABLE FOR DIALYSIS PATIEN TS. Clinical Services Specialist ID - PIAYA LSpecimen moderately ictericCBC W/PLT COUNT & AUTO [id number] 10:19:43 Test Item Value Reference Range Interpretation [...] PERCENT (BEAKER) (test code = 2801) POCT-GLUCOSE [id number] 07:55:36 Test Item Value Reference Range Interpretation Comments POC-GLUCOSE METER 88 mg/dL 70-110 : TESTED A T [facility] 6720 (BEAKER) (test code = [facility], 1538) 06193: Clinical Services Specialist/Techni grisel ID = [id number] for KIANNA BAH POCT-GLUCOSE [id number] 21:23:21 Test Item Value Reference Range Interpretation Comments POC-GLUCOSE METER 193 mg/dL 70-110 H : TESTED A T [facility] 6720 (BEAKER) (test code = [facility], 1538) 95428: Clinical Services Specialist/Techni grisel ID = [id number] for SHYLA KRAUS Mitochondrial Ab [id number] 18:27:09 Test Item Value Reference Range Interpretation Comments Anti-Mitochond Abs NEGATIVE NEGATIVE (test code = 9187447) SOPHIA (test code = Performing [facility] SOPHIA) [facility] [address] [place] [address] Edgard Jay MD, PhD, MICHEAL [facility] HospitalMitochond[facility] [id number] 18:27:09 Test Item Value Reference Range Interpretation Comments Mitochondrial Ab TNP See_Comment Test Not Titer (test code = Performed . 8020361) Screening test Negative or Not Detected. Titer notperformed. [Automated message] The system which generated this result transmitted reference range : <1:20. The reference range was not used to interpret this result as normal/abnormal . SOPHIA (test code = Performing Lab EZ SOPHIA) [facility] [address] [place] [address] Edgard Jay MD, PhD, MICHEAL [facility] HospitalMitochond[facility] Ab [id number] 18:27:09 Test Item Value Reference Range Interpretation Comments Anti-Mitochond Abs NEGATIVE NEGATIVE (test code = 4366439) SOPHIA (test code = Performing [facility] SOPHIA) [facility] [address] [place] [address] Edgard Jay MD, PhD, [facility] HospitalMitochondrial Ab [id number] 18:27:09 Test Item Value Reference Range Interpretation [...] Performing Lab EZ SOPHIA) [facility] [place] [address] [place] [address] Edgard Jay MD, PhD, [facility] Center[facility] [id number] 18:27:09 Test Item Value Reference Range Interpretation Comments Anti-Mitochond Abs NEGATIVE NEGATIVE (test code = 9813415) SOPHIA (test code = Performing [facility] SOPHIA) [facility] [place] [address] [place] [address] Edgard Jay MD, PhD, [facility] CenterMitochond[facility] Ab [id number] 18:27:09 Test Item Value Reference Range Interpretation [...] Performing Lab EZ SOPHIA) [facility] [place] [address] [place] [address] Edgard Jay MD, PhD, [facility] HospitalMitochondrial Ab [id number] 18:27:09 Test Item Value Reference Range Interpretation Comments Anti-Mitochond Abs NEGATIVE NEGATIVE (test code = 6973560) SOPHIA (test code = Performing [facility] SOPHIA) [facility] [place] [address] [place] [address] Edgard Jay MD, PhD, [facility] CenterMitochond[facility] Ab [id number] 18:27:09 Test Item Value Reference Range Interpretation [...] Performing Lab EZ SOPHIA) [facility] [place] [address] [place] [address] Edgard Jay MD, PhD, [facility] CenterMitochondrial Ab [id number] 18:27:09 Test Item Value Reference Range Interpretation Comments Anti-Mitochond Abs NEGATIVE NEGATIVE (test code = 8080098) SOPHIA (test code = Performing [facility] SOPHIA) [facility] [place] [address] [place] [address] Edgard Jay MD, PhD, [facility] CenterMitochond[facility] Ab [id number] 18:27:09 Test Item Value Reference Range Interpretation [...] Performing Lab EZ SOPHIA) [facility] [place] [address] [place] [address] Edgard Jay MD, PhD, [facility] CenterMitochond[facility] Ab [id number] 18:27:09 Test Item Value Reference Range Interpretation Comments Anti-Mitochond Abs NEGATIVE NEGATIVE (test code = 4154979) SOPHIA (test code = Performing [facility] SOPHIA) [facility] [place] [address] [place] [address] Edgard Jay MD, PhD, [facility] CenterMitochondrial Ab [id number] 18:27:09 Test Item Value Reference Range Interpretation [...] Performing Lab EZ SOPHIA) [facility] [address] [place] [address] Edgard Jay MD, PhD, MICHEAL [facility] HospitalMitochond[facility] Ab [id number] 18:27:09 Test Item Value Reference Range Interpretation Comments Anti-Mitochond Abs NEGATIVE NEGATIVE (test code = 4700998) SOPHIA (test code = Performing [facility] SOPHIA) [facility] [address] [place] [address] Edgard Jay MD, PhD, MICHEAL [facility] HospitalMitochondrial Ab [id number] 18:27:09 Test Item Value Reference Range Interpretation Comments Mitochondrial Ab TNP See_Comment Test Not Titer (test code = Performed . 7687658) Screening test Negative or Not Detected. Titer notperformed. [Automated message] The system which generated this result transmitted reference range : <1:20. The reference range was not used to interpret this result as normal/abnormal . SOPHIA (test code = Performing Lab EZ SOPHIA) [facility] [address] [place] [address] Edgard Jay MD, PhD, [facility] HospitalPOCT-GLUCOSE [id number] 17:25:28 Test Item Value Reference Range Interpretation Comments POC-GLUCOSE METER 181 mg/dL 70-110 H : TESTED A T [facility] 6720 (BEAKER) (test code = [facility], 153) 63314: Clinical Services Specialist/Techni grisel ID = [id number] for MIHIR DIAZ POCT-GLUCOSE [id number] 12:59:42 Test Item Value Reference Range Interpretation Comments POC-GLUCOSE METER 143 mg/dL 70-110 H : TESTED A T [facility] 6720 (BEAKER) (test code = [facility], 1538) 94952: Clinical Services Specialist/Techni grisel ID = [id number] for MIHIR DIAZ POCT-GLUCOSE [id number] 11:43:35 Test Item Value Reference Range Interpretation Comments POC-GLUCOSE METER 201 mg/dL 70-110 H : TESTED A T [facility] 6720 (BEAKER) (test code [facility], = 1538) 33148: Clinical Services Specialist/Techni grisel ID = [id number] for Sara Moore [place], [id number] 11:07:00Reason for exam:->Jaundice [facility] CENTERName: RAQUEL PINK : 1970 Sex: FFluoroscopic unit utilized for a procedure performed in the OR. No interpretation was requested. Referto the operative report for findings. Refer to PACS for patient radiation dose information.POCT-GLUCOSE [id number] 07:40:21 Test Item Value Reference Range Interpretation Comments POC-GLUCOSE METER 94 mg/dL 70-110 : TESTED A T [facility] 6720 (BEAKER) (test code = [facility] [place], 1538) 30314: Clinical Services Specialist/Techni grisel ID = [id number] for KIANNA BAH Actin (Smooth Muscle) Antibody, [id number] 03:49:29 Test Item Value Reference Range Interpretation Comments Anti-Smooth <20 See Note: U Reference Range :<20 Muscle Ab NEGATIVE> OR = 20 (test code = POSITIVE Antibo dies 5673036) recognizing act in are the main compon [...] (test code Performing Lab EZ = SOPHIA) [facility] [address] [place] [address] Edgard Jay MD, PhD, [facility] CenterActin (Smooth Muscle) Antibody, [id number] 03:49:29 Test Item Value Reference Range Interpretation Comments Anti-Smooth <20 See Note: U Reference Range :<20 Muscle Ab NEGATIVE> OR = 20 (test code = POSITIVE Antibo dies 5383800) recognizing act in are the main compon [...] (test code Performing Lab EZ = SOPHIA) [facility] [place] [facility] [address] [place] [address] Edgard Jay MD, PhD, [facility] CenterActin (Smooth Muscle) Antibody, [id number] 03:49:29 Test Item Value Reference Range Interpretation Comments Anti-Smooth <20 See Note: U Reference Range :<20 Muscle Ab NEGATIVE> OR = 20 (test code = POSITIVE Antibo dies 6699457) recognizing act in are the main compon [...] (test code Performing Lab EZ = SOPHIA) [facility] [place] [address] [place] [address] Edgard Jay MD, PhD, [facility] CenterActin (Smooth Muscle) Antibody, [id number] 03:49:29 Test Item Value Reference Range Interpretation Comments Anti-Smooth <20 See Note: U Reference Range :<20 Muscle Ab NEGATIVE> OR = 20 (test code = POSITIVE Antibo dies 0173520) recognizing act in are the main compon [...] (test code Performing Lab EZ = SOPHIA) [facility] [place] [address] [place] [address] Edgard Jay MD, PhD, [facility] CenterActin (Smooth Muscle) Antibody, [id number] 03:49:29 Test Item Value Reference Range Interpretation Comments Anti-Smooth <20 See Note: U Reference Range :<20 Muscle Ab NEGATIVE> OR = 20 (test code = POSITIVE Antibo dies 3631525) recognizing act in are the main compon [...] (test code Performing Lab EZ = SOPHIA) [facility] [place] [address] [place] [address] Edgard Jay MD, PhD, [facility] CenterActin (Smooth Muscle) Antibody, [id number] 03:49:29 Test Item Value Reference Range Interpretation Comments Anti-Smooth <20 See Note: U Reference Range :<20 Muscle Ab NEGATIVE> OR = 20 (test code = POSITIVE Antibo dies 1872336) recognizing act in are the main compon [...] (test code Performing Lab EZ = SOPHIA) [facility] [address] [place] [address] Edgard Jay MD, PhD, MICHEAL [facility] HospitalActin (Smooth Muscle) Antibody, [id number] 03:49:29 Test Item Value Reference Range Interpretation [...] (test code Performing Lab EZ = SOPHIA) [facility] [address] [place] [address] Edgard Jay MD, PhD, [facility] HospitalPOCT-GLUCOSE [id number] 22:37:18 Test Item Value Reference Range Interpretation Comments POC-GLUCOSE METER 108 mg/dL 70-110 : TESTED A T [facility] 6720 ([employer]) (test code = [email or web address] [facility], 153) 14850: Clinical Services Specialist/Techni grisel ID = [id number] for PE SHYLA SANTOYO POCT-GLUCOSE [id number] 17:29:42 Test Item Value Reference Range Interpretation Comments POC-GLUCOSE METER 129 mg/dL 70-110 H : TESTED A T [facility] 6720 ([employer]) (test code = [employer] [facility], 153) 58538: Clinical Services Specialist/Techni grisel ID = [id number] for MARIE MIKA MONTILLAJACQUELYN [id number] 14:27:31 Test Item Value Reference Range Interpretation Comments Ceruloplasmin (test code 64 mg/dL 18-53 H = 20190812) SOPHIA (test code = SOPHIA) Performing Lab *DANNA [facility], [address] [place] [address] Maame Nuñez MD Lab Interpretation (test Abnormal code = 18274-3) [facility] 14:27:31 Test Item Value Reference Range Interpretation Comments Ceruloplasmin (test code 64 mg/dL 18-53 H = 6651383) SOPHIA (test code = SOPHIA) Performing Lab *DANNA [facility], [address] [place] [address] Maame Nuñez MD Lab Interpretation (test Abnormal code = 28299-9) [facility]20[facility]-17 14:27:31 Test Item Value Reference Range Interpretation Comments Ceruloplasmin (test code 64 mg/dL 18-53 H = 6926022) SOPHIA (test code = SOPHIA) Performing Lab *DANNA [facility], [address] [place], [place] [address] Maame Nuñez MD Lab Interpretation (test Abnormal code = 50419-0) [facility] HospitalQhvhxeXhghygrtywzij9120-02-30 14:27:31 Test Item Value Reference Range Interpretation Comments Ceruloplasmin (test code 64 mg/dL 18-53 H = 5039300) SOPHIA (test code = SOPHIA) Performing Lab *DANNA [facility], [address] [place] [address] Maame Nuñez MD Lab Interpretation (test Abnormal code = 86145-7) [facility] 14:27:31 Test Item Value Reference Range Interpretation Comments Ceruloplasmin (test code 64 mg/dL 18-53 H = 8553854) SOPHIA (test code = SOPHIA) Performing Lab *DANNA [facility], [address] [place] [address] Maame Nuñez MD Lab Interpretation (test Abnormal code = 02040-5) [facility]20[facility] 14:27:31 Test Item Value Reference Range Interpretation Comments Ceruloplasmin (test code 64 mg/dL 18-53 H = 5755886) SOPHIA (test code = SOPHIA) Performing Lab *DANNA [facility], [address] [place] [address] Maame Nuñez MD Lab Interpretation (test Abnormal code = 16416-0) [facility] HospitalYewmhcYgwxdxdecnlkc8658-16-43 14:27:31 Test Item Value Reference Range Interpretation Comments Ceruloplasmin (test code 64 mg/dL 18-53 H = 9460254) SOPHIA (test code = SOPHIA) Performing Lab *DANNA [facility], [address] [place] [address] Maame Nuñez MD Lab Interpretation (test Abnormal code = 67298-6) [facility] HospitalCarbohydrate antigen 19-9 (CA 19-9)2021-06-06 13:37:14 Test Item Value Reference Range Interpretation Comments CA 19-9 20 U/mL <34 This test was (test code = performed using the 51339-2) Siemens Chemiluminescen t method.Values o btained from different assay methods cannot be used interchangeably .CA19-9 levels, regardl ess of value, should n ot be interpreted as absoluteevidenc e of the presence or abs ence of disease. SOPHIA (test Performing Lab EZ code = SOPHIA) [facility] [place] [address] [place] [address] Edgard Jay MD, PhD, MICHEAL [facility] HospitalCarbohydrate antigen 19-9 (CA 19-9)2021-06-06 13:37:14 Test Item Value Reference Range Interpretation Comments CA 19-9 20 U/mL <34 This test was (test code = performed using the 33149-3) Siemens Chemiluminescen t method.Values o btained from different assay methods cannot be used interchangeably .CA19-9 levels, regardl ess of value, should n ot be interpreted as absoluteevidenc e of the presence or abs ence of disease. SOPHIA (test Performing Lab EZ code = SOPHIA) [facility] [place] [address] [place] [address] Edgard Jay MD, PhD, MICHEAL [facility] HospitalCarbohydrate antigen 19-9 (CA 19-9)2021-06-06 13:37:14 Test Item Value Reference Range Interpretation Comments CA 19-9 20 U/mL <34 This test was (test code = performed using the 65411-4) Siemens Chemiluminescen t method.Values o btained from different assay methods cannot be used interchangeably .CA19-9 levels, regardl ess of value, should n ot be interpreted as absoluteevidenc e of the presence or abs ence of disease. SOPHIA (test Performing Lab EZ code = SOPHIA) [facility] [place] [address] [place] [address] Edgard Jay MD, PhD, [facility] HospitalCarbohydrate antigen 19-9 (CA 19-9)2021-06-06 13:37:14 Test Item Value Reference Range Interpretation Comments CA 19-9 20 U/mL <34 This test was (test code = performed using the 19570-8) Siemens Chemiluminescen t method.Values o btained from different assay methods cannot be used interchangeably .CA19-9 levels, regardl ess of value, should n ot be interpreted as absoluteevidenc e of the presence or abs ence of disease. SOPHIA (test Performing Lab EZ code = SOPHIA) [facility] [place] [address] [place] [address] Edgrad Jay MD, PhD, [facility] HospitalCarbohydrate antigen 19-9 (CA 19-9)2021-06-06 13:37:14 Test Item Value Reference Range Interpretation Comments CA 19-9 20 U/mL <34 This test was (test code = performed using the 01047-8) Siemens Chemiluminescen t method.Values o btained from different assay methods cannot be used interchangeably .CA19-9 levels, regardl ess of value, should n ot be interpreted as absoluteevidenc e of the presence or abs ence of disease. SOPHIA (test Performing Lab EZ code = SOPHIA) [facility] [place] [address] [place] [address] Edgard Jay MD, PhD, [facility] HospitalCarbohydrate antigen 19-9 (CA 19-9)2021-06-06 13:37:14 Test Item Value Reference Range Interpretation Comments CA 19-9 20 U/mL <34 This test was (test code = performed using the 24842-1) Siemens Chemiluminescen t method.Values o btained from different assay methods cannot be used interchangeably .CA19-9 levels, regardl ess of value, should n ot be interpreted as absoluteevidenc e of the presence or abs ence of disease. SOPHIA (test Performing Lab EZ code = SOPHIA) [facility] [place] [facility] [place] [address] [place] [address] Edgard Jay MD, PhD, MICHEAL [facility] HospitalCarbohydrate antigen 19-9 (CA 19-9)2021-06-06 13:37:14 Test Item Value Reference Range Interpretation Comments CA 19-9 20 U/mL <34 This test was (test code = performed using the 43177-0) [employer]ens Chemiluminescen t method.Values o btained from different assay methods cannot be used interchangeably .CA19-9 levels, regardl ess of value, should n ot be interpreted as absoluteevidenc e of the presence or abs ence of disease. SOPHIA (test Performing Lab EZ code = SOPHIA) [facility] [place] [facility] [address] [place] [address] Edgard Jay MD, PhD, MICHEAL [facility] HospitalPOCT-GLUCOSE [id number] 12:35:17 Test Item Value Reference Range Interpretation Comments POC-GLUCOSE METER 162 mg/dL 70-110 H : TESTED A T [facility] 6720 (BEAKER) (test code = [facility], 1538) 75840: Clinical Services Specialist/Techni grisel ID = [id number] for MA RTIN, CHIANNA POCT-GLUCOSE [id number] 08:15:46 Test Item Value Reference Range Interpretation Comments POC-GLUCOSE METER 100 mg/dL 70-110 : TESTED A T [facility] 6720 (BEAKER) (test code = [facility], 1538) 07575: Clinical Services Specialist/Techni grisel ID = [id number] for MA RTIN, CHIANNA POCT-GLUCOSE [id number] 21:16:23 Test Item Value Reference Range Interpretation Comments POC-GLUCOSE METER 135 mg/dL 70-110 H : TESTED A T [facility] 6720 (BEAKER) (test code = [facility], 1538) 09975: Clinical Services Specialist/Techni grisel ID = [id number] for JUAN HAND SE POCT-GLUCOSE [id number] 17:57:43 Test Item Value Reference Range Interpretation Comments POC-GLUCOSE METER 121 mg/dL 70-110 H : TESTED A T [facility] 6720 (BEAKER) (test code = [facility] [place], 1538) 56007: Clinical Services Specialist/Techni girsel ID = [id number] for EMMIE JOHNSON POCT-GLUCOSE [id number] 12:11:50 Test Item Value Reference Range Interpretation Comments POC-GLUCOSE METER 143 mg/dL 70-110 H : TESTED A T [facility] 6720 (BEAKER) (test code = [facility] [place], 1538) 30234: Clinical Services Specialist/Techni grisel ID = [id number] for EMMIE JOHNSON MR, ABDOMEN, [id number] 09:03:00MRI LIVER PROTOCOL; liver masses MRCP patient with dilated intrahepatic ducts. Recommended by hepatology Unlisted Reason for Exam - Click Yes and Enter Reason Below->No Deos the patient have an implanted electronic device?->No [facility] 1970 Sex: [...] MDReport Verified Date/Time: 06/05/2021 09:03:32 Reading Location: [facility] [employer] Diagnostic Imaging Reading Room - [place] [address] POCT-GLUCOSE [id number] 08:04:23 Test Item Value Reference Range Interpretation Comments POC-GLUCOSE METER 97 mg/dL 70-110 : TESTED A T [facility] 6720 (BEAKER) (test code = [facility] [place], 1538) 14365: Clinical Services Specialist/Techni grisel ID = [id number] for EMMIE MOREIRA Hepatitis B surface [id number] 06:11:57 Test Item Value Reference Range Interpretation Comments Hep B S Ab (test code <8.0 See_Comment [Auto mated = 04945-0) message] The system which generated this result transmit manoj reference range : <8.0 mIU/mL. Th e reference range was not used to interpret this result as normal/abnormal . SOPHIA (test code = SOPHIA) Clinical Services Specialist ID - SARAH Javed Lab Interpretation Normal (test code = 25820-1) [facility] surface [id number] 06:11:57 Test Item Value Reference Range Interpretation Comments Hep B S Ab (test code <8.0 See_Comment [Auto mated = 92694-9) message] The system which generated this result transmit manoj reference range : <8.0 mIU/mL. Th e reference range was not used to interpret this result as normal/abnormal . SOPHIA (test code = SOPHIA) Clinical Services Specialist ID - SARAH Javed Lab Interpretation Normal (test code = 25473-2) [facility] surface [id number] 06:11:57 Test Item Value Reference Range Interpretation Comments Hep B S Ab (test code <8.0 See_Comment [Auto mated = 18937-1) message] The system which generated this result transmit manoj reference range : <8.0 mIU/mL. Th e reference range was not used to interpret this result as normal/abnormal . SOPHIA (test code = SOPHIA) Clinical Services Specialist ID - SARAH Javed Lab Interpretation Normal (test code = 91424-8) [facility] B surface [id number] 06:11:57 Test Item Value Reference Range Interpretation Comments Hep B S Ab (test code <8.0 See_Comment [Auto mated = 74957-7) message] The system which generated this result transmit manoj reference range : <8.0 mIU/mL. Th e reference range was not used to interpret this result as normal/abnormal . SOPHIA (test code = SOPHIA) Clinical Services Specialist ID - SARAH M Lab Interpretation Normal (test code = 81530-8) [facility] B surface [id number] 06:11:57 Test Item Value Reference Range Interpretation Comments Hep B S Ab (test code <8.0 See_Comment [Auto mated = 59892-4) message] The system which generated this result transmit manoj reference range : <8.0 mIU/mL. Th e reference range was not used to interpret this result as normal/abnormal . SOPHIA (test code = SOPHIA) Clinical Services Specialist ID - SARAH M Lab Interpretation Normal (test code = 72767-3) [facility] surface [id number] 06:11:57 Test Item Value Reference Range Interpretation Comments Hep B S Ab (test code <8.0 See_Comment [Auto mated = 93441-5) message] The system which generated this result transmit manoj reference range : <8.0 mIU/mL. Th e reference range was not used to interpret this result as normal/abnormal . SOPHIA (test code = SOPHIA) Clinical Services Specialist ID - SARAH M Lab Interpretation Normal (test code = 05600-5) [facility] B surface [id number] 06:11:57 Test Item Value Reference Range Interpretation Comments Hep B S Ab (test code <8.0 See_Comment [Auto mated = 52688-5) message] The system which generated this result transmit manoj reference range : <8.0 mIU/mL. Th e reference range was not used to interpret this result as normal/abnormal . SOPHIA (test code = SOPHIA) Clinical Services Specialist ID - SARAH M Lab Interpretation Normal (test code = 82491-7) [facility] B SURFACE [id number] 06:11:57 Test Item Value Reference Range Interpretation Comments HEPATITIS B SURFACE ANTIBODY < mIU/mL <8.0 (BEAKER) (test code = 647) Clinical Services Specialist ID - SARAH MPOCT-GLUCOSE [id number] 21:20:16 Test Item Value Reference Range Interpretation Comments POC-GLUCOSE METER 170 mg/dL 70-110 H : TESTED A T [facility] 6720 ([employer]) (test code = [facility], 1538) 75172: Clinical Services Specialist/Techni grisel ID = [id number] for JORDON CLAYTONO POCT-GLUCOSE [id number] 17:16:22 Test Item Value Reference Range Interpretation Comments POC-GLUCOSE METER 128 mg/dL 70-110 H : TESTED A T [facility] 6720 (BEAKER) (test code = [facility], 1538) 91682: Clinical Services Specialist/Techni grisel ID = [id number] for MIHIR DIAZ Cytomegalovirus antibody, [id number] 11:41:04 Test Item Value Reference Range Interpretation Comments CYTOMEGALOVIRUS, IGG Positive Negative, A (test code = 3429) Equivocal SOPHIA (test code = SOPHIA) CMV IgG Result Interpretation: </= 0.8 Al Negative 0.9-1.0 Al Equivocal >/=1.1 Al Positive Lab Interpretation (test Abnormal code = 52870-2) [facility] HospitalEBV-VCA antibody, [id number] 11:41:04 Test Item Value Reference Range Interpretation Comments JIMMY GILMORE VIRAL Positive Negative, A CAPSID ANTIGEN IGG (test Equivocal code = 3415) SOPHIA (test code = SOPHIA) Jimmy Gilmore Viral Capsid Antigen IgG Result Interpretation: </= 0.8 Al Negative 0.9-1.0 Al Equivocal >/= 1.1 Al Positive Lab Interpretation (test Abnormal code = 82479-5) [facility] [facility], [id number] 11:41:04 Test Item Value Reference Range Interpretation Comments JIMMY GILMORE VIRAL Negative Negative, CAPSID ANTIGEN IGM (test Equivocal code = 3418) SOPHIA (test code = SOPHIA) Jimmy Gilmore Viral Capsid Antigen IgM Result Interpretation: </= 0.8 Al Negative 0.9-1.0 Al Equivocal >/= 1.1 Al Positive Lab Interpretation (test Normal code = 56661-0) [facility] HospitalCyt[facility]galovirus antibody, [id number] 11:41:04 Test Item Value Reference Range Interpretation Comments CYTOMEGALOVIRUS, IGG Positive Negative, A (test code = 3429) Equivocal SOPHIA (test code = SOPHIA) CMV IgG Result Interpretation: </= 0.8 Al Negative 0.9-1.0 Al Equivocal >/=1.1 Al Positive Lab Interpretation (test Abnormal code = 96256-9) [facility] antibody, [id number] 11:41:04 Test Item Value Reference Range Interpretation Comments JIMMY GILMORE VIRAL Positive Negative, A CAPSID ANTIGEN IGG (test Equivocal code = 3415) SOPHIA (test code = SOPHIA) Jimmy Gilmore Viral Capsid Antigen IgG Result Interpretation: </= 0.8 Al Negative 0.9-1.0 Al Equivocal >/= 1.1 Al Positive Lab Interpretation (test Abnormal code = 84646-2) [facility] antibody, [id number] 11:41:04 Test Item Value Reference Range Interpretation Comments JIMMY GILMORE VIRAL Negative Negative, CAPSID ANTIGEN IGM (test Equivocal code = 3418) SOPHIA (test code = SOPHIA) Jimmy Gilmore Viral Capsid Antigen IgM Result Interpretation: </= 0.8 Al Negative 0.9-1.0 Al Equivocal >/= 1.1 Al Positive Lab Interpretation (test Normal code = 42516-4) [facility] HospitalCyt[facility]galovirus antibody, [id number] 11:41:04 Test Item Value Reference Range Interpretation Comments CYTOMEGALOVIRUS, IGG Positive Negative, A (test code = 3429) Equivocal SOPHIA (test code = SOPHIA) CMV IgG Result Interpretation: </= 0.8 Al Negative 0.9-1.0 Al Equivocal >/=1.1 Al Positive Lab Interpretation (test Abnormal code = 08284-6) [facility], [id number] 11:41:04 Test Item Value Reference Range Interpretation Comments JIMMY GILMORE VIRAL Positive Negative, A CAPSID ANTIGEN IGG (test Equivocal code = 3415) SOPHIA (test code = SOPHIA) Jimmy Gilmore Viral Capsid Antigen IgG Result Interpretation: </= 0.8 Al Negative 0.9-1.0 Al Equivocal >/= 1.1 Al Positive Lab Interpretation (test Abnormal code = 63010-6) [facility], [id number] 11:41:04 Test Item Value Reference Range Interpretation Comments JIMMY GILMORE VIRAL Negative Negative, CAPSID ANTIGEN IGM (test Equivocal code = 3418) SOPHIA (test code = SOPHIA) Jimmy Gilmore Viral Capsid Antigen IgM Result Interpretation: </= 0.8 Al Negative 0.9-1.0 Al Equivocal >/= 1.1 Al Positive Lab Interpretation (test Normal code = 89227-0) [facility] HospitalCytomegalovirus antibody, [id number] 11:41:04 Test Item Value Reference Range Interpretation Comments CYTOMEGALOVIRUS, IGG Positive Negative, A (test code = 3429) Equivocal SOPHIA (test code = SOPHIA) CMV IgG Result Interpretation: </= 0.8 Al Negative 0.9-1.0 Al Equivocal >/=1.1 Al Positive Lab Interpretation (test Abnormal code = 76270-4) [facility] antibody, [id number] 11:41:04 Test Item Value Reference Range Interpretation Comments JIMMY GILMORE VIRAL Positive Negative, A CAPSID ANTIGEN IGG (test Equivocal code = 3415) SOPHIA (test code = SOPHIA) Jimmy Gilmore Viral Capsid Antigen IgG Result Interpretation: </= 0.8 Al Negative 0.9-1.0 Al Equivocal >/= 1.1 Al Positive Lab Interpretation (test Abnormal code = 05605-6) [facility] antibody, [id number] 11:41:04 Test Item Value Reference Range Interpretation Comments JIMMY GILMORE VIRAL Negative Negative, CAPSID ANTIGEN IGM (test Equivocal code = 3418) SOPHIA (test code = SOPHIA) Jimmy Gilmore Viral Capsid Antigen IgM Result Interpretation: </= 0.8 Al Negative 0.9-1.0 Al Equivocal >/= 1.1 Al Positive Lab Interpretation (test Normal code = 80181-5) [facility] HospitalCytomegalovirus antibody, [id number] 11:41:04 Test Item Value Reference Range Interpretation Comments CYTOMEGALOVIRUS, IGG Positive Negative, A (test code = 3429) Equivocal SOPHIA (test code = SOPHIA) CMV IgG Result Interpretation: </= 0.8 Al Negative 0.9-1.0 Al Equivocal >/=1.1 Al Positive Lab Interpretation (test Abnormal code = 12925-3) [facility], [id number] 11:41:04 Test Item Value Reference Range Interpretation Comments JIMMY GILMORE VIRAL Positive Negative, A CAPSID ANTIGEN IGG (test Equivocal code = 3415) SOPHIA (test code = SOPHIA) Jimmy Gilmore Viral Capsid Antigen IgG Result Interpretation: </= 0.8 Al Negative 0.9-1.0 Al Equivocal >/= 1.1 Al Positive Lab Interpretation (test Abnormal code = 94680-5) [facility], [id number] 11:41:04 Test Item Value Reference Range Interpretation Comments JIMMY GILMORE VIRAL Negative Negative, CAPSID ANTIGEN IGM (test Equivocal code = 3418) SOPHIA (test code = SOPHIA) Jimmy Gilmore Viral Capsid Antigen IgM Result Interpretation: </= 0.8 Al Negative 0.9-1.0 Al Equivocal >/= 1.1 Al Positive Lab Interpretation (test Normal code = 86224-2) [facility] HospitalCytomegalovirus antibody, [id number] 11:41:04 Test Item Value Reference Range Interpretation Comments CYTOMEGALOVIRUS, IGG Positive Negative, A (test code = 3429) Equivocal SOPHIA (test code = SOPHIA) CMV IgG Result Interpretation: </= 0.8 Al Negative 0.9-1.0 Al Equivocal >/=1.1 Al Positive Lab Interpretation (test Abnormal code = 76284-0) [facility] antibody, [id number] 11:41:04 Test Item Value Reference Range Interpretation Comments JIMMY GILMORE VIRAL Positive Negative, A CAPSID ANTIGEN IGG (test Equivocal code = 3415) SOPHIA (test code = SOPHIA) Jimmy Gilmore Viral Capsid Antigen IgG Result Interpretation: </= 0.8 Al Negative 0.9-1.0 Al Equivocal >/= 1.1 Al Positive Lab Interpretation (test Abnormal code = 99155-3) [facility] antibody, [id number] 11:41:04 Test Item Value Reference Range Interpretation Comments JIMMY GILMORE VIRAL Negative Negative, CAPSID ANTIGEN IGM (test Equivocal code = 3418) SOPHIA (test code = SOPHIA) Jimmy Gilmore Viral Capsid Antigen IgM Result Interpretation: </= 0.8 Al Negative 0.9-1.0 Al Equivocal >/= 1.1 Al Positive Lab Interpretation (test Normal code = 03440-1) [facility] HospitalCytomegalovirus antibody, [id number] 11:41:04 Test Item Value Reference Range Interpretation Comments CYTOMEGALOVIRUS, IGG Positive Negative, A (test code = 3429) Equivocal SOPHIA (test code = SOPHIA) CMV IgG Result Interpretation: </= 0.8 Al Negative 0.9-1.0 Al Equivocal >/=1.1 Al Positive Lab Interpretation (test Abnormal code = 79832-9) [facility], [id number] 11:41:04 Test Item Value Reference Range Interpretation Comments JIMMY GILMORE VIRAL Positive Negative, A CAPSID ANTIGEN IGG (test Equivocal code = 3415) SOPHIA (test code = SOPHIA) Jimmy Gilmore Viral Capsid Antigen IgG Result Interpretation: </= 0.8 Al Negative 0.9-1.0 Al Equivocal >/= 1.1 Al Positive Lab Interpretation (test Abnormal code = 35564-4) [facility], [id number] 11:41:04 Test Item Value Reference Range Interpretation Comments JIMYM GILMORE VIRAL Negative Negative, CAPSID ANTIGEN IGM (test Equivocal code = 3418) SOPHIA (test code = SOPHIA) Jimmy Gilmore Viral Capsid Antigen IgM Result Interpretation: </= 0.8 Al Negative 0.9-1.0 Al Equivocal >/= 1.1 Al Positive Lab Interpretation (test Normal code = 81859-0) [facility] ANTIBODY, [id number] 11:41:04 Test Item Value Reference Range Interpretation Comments JIMMY GILMORE VIRAL CAPSID Negative Negative, Equivocal ANTIGEN IGM (BEAKER) (test code = 3418) Jimmy Gilmore Viral Capsid Antigen IgM Result Interpretation: </= 0.8 Al Negative 0.9-1.0 Al Equivocal >/= 1.1 Al PositiveEBV ANTIBODY, [id number] 11:41:04 Test Item Value Reference Range Interpretation Comments JIMMY GILMORE VIRAL CAPSID Positive Negative, Equivocal A ANTIGEN IGG (BEAKER) (test code = 3415) Jimmy Gilmore Viral Capsid Antigen IgG Result Interpretation: </= 0.8 Al Negative 0.9-1.0 Al Equivocal >/= 1.1 Al PositiveCYTOMEGALOVIRUS ANTIBODY, [id number] 11:41:04 Test Item Value Reference Range Interpretation Comments CYTOMEGALOVIRUS, IGG (BEAKER) Positive Negative, Equivocal A (test code = 3429) CMV IgG Result Interpretation: </= 0.8 Al Negative 0.9-1.0 Al Equivocal >/=1.1 Al PositivePOCT-GLUCOSE [id number] 11:24:58 Test Item Value Reference Range Interpretation Comments POC-GLUCOSE METER 165 mg/dL 70-110 H : TESTED A T [facility] 6720 (BEAKER) (test code = KENYA Mcmullen [facility], 1538) [address]: Clinical Services Specialist/Techni grisel ID = [id number] for MIHIR DIAZ Anti-Nuclear Antibody (MORENA)2021-06-04 09:49:08 Test Item Value Reference Range Interpretation Comments MORENA (test code = 86479-6) Negative Negative SOPHIA (test code = SOPHIA) Test performed by IFA method.Test performed by IFA method. Lab Interpretation (test Normal code = 42118-1) [facility])2021-06-04 09:49:08 Test Item Value Reference Range Interpretation Comments MORENA (test code = 88543-9) Negative Negative SOPHIA (test code = SOPHIA) Test performed by IFA method.Test performed by IFA method. Lab Interpretation (test Normal code = 06153-7) [facility] (MORE[facility])2021-06-04 09:49:08 Test Item Value Reference Range Interpretation Comments MORENA (test code = 79784-3) Negative Negative SOPHIA (test code = SOPHIA) Test performed by IFA method.Test performed by IFA method. Lab Interpretation (test Normal code = 05434-0) [facility])2021-06-04 09:49:08 Test Item Value Reference Range Interpretation Comments MORENA (test code = 71161-6) Negative Negative SOPHIA (test code = SOPHIA) Test performed by IFA method.Test performed by IFA method. Lab Interpretation (test Normal code = 75726-7) [facility] (MORE[facility])2021-06-04 09:49:08 Test Item Value Reference Range Interpretation Comments MORENA (test code = 53686-3) Negative Negative SOPHIA (test code = SOPHIA) Test performed by IFA method.Test performed by IFA method. Lab Interpretation (test Normal code = 59386-5) [facility] ([facility])2021-06-04 09:49:08 Test Item Value Reference Range Interpretation Comments MORENA (test code = 63271-5) Negative Negative SOPHIA (test code = SOPHIA) Test performed by IFA method.Test performed by IFA method. Lab Interpretation (test Normal code = 39853-7) [facility] (MORENA)2021-06-04 09:49:08 Test Item Value Reference Range Interpretation Comments MORENA (test code = 42434-4) Negative Negative SOPHIA (test code = SOPHIA) Test performed by IFA method.Test performed by IFA method. Lab Interpretation (test Normal code = 00580-1) [facility]ANT[facility]CLEAR [facility]TIBODY (MORENA)2021-06-04 09:49:08 Test Item Value Reference Range Interpretation Comments ANTI-NUCLEAR ANTIBODY (MORENA) (BEAKER) Negative Negative (test code = 418) Test performed by IFA method.Test performed by IFA method.Hemoglobin A1c 2021-06-04 09:31:32 Test Item Value Reference Range Interpretation Comments Hemoglobin A1C (test code = 4548-4) 7.4 % 4.3-6.1 H Lab Interpretation (test code = Abnormal 80123-9) [id number] 09:31:32 Test Item Value Reference Range Interpretation Comments Hemoglobin A1C (test code = 4548-4) 7.4 % 4.3-6.1 H Lab Interpretation (test code = Abnormal 37657-1) [facility] [id number] 09:31:32 Test Item Value Reference Range Interpretation Comments Hemoglobin A1C (test code = 4548-4) 7.4 % 4.3-6.1 H Lab Interpretation (test code = Abnormal 32483-6) [facility] [id number] 09:31:32 Test Item Value Reference Range Interpretation Comments Hemoglobin A1C (test code = 4548-4) 7.4 % 4.3-6.1 H Lab Interpretation (test code = Abnormal 41765-1) [facility] [id number] 09:31:32 Test Item Value Reference Range Interpretation Comments Hemoglobin A1C (test code = 4548-4) 7.4 % 4.3-6.1 H Lab Interpretation (test code = Abnormal 31349-1) [facility] [id number] 09:31:32 Test Item Value Reference Range Interpretation Comments Hemoglobin A1C (test code = 4548-4) 7.4 % 4.3-6.1 H Lab Interpretation (test code = Abnormal 56417-0) [facility] [id number] 09:31:32 Test Item Value Reference Range Interpretation Comments Hemoglobin A1C (test code = 4548-4) 7.4 % 4.3-6.1 H Lab Interpretation (test code = Abnormal 64141-7) [facility] [id number] 09:31:32 Test Item Value Reference Range Interpretation Comments HEMOGLOBIN A1C (BEAKER) (test code = 7.4 % 4.3-6.1 H 368) POCT-GLUCOSE [id number] 08:13:37 Test Item Value Reference Range Interpretation Comments POC-GLUCOSE METER 109 mg/dL 70-110 : TESTED A T [facility] 6720 (BEAKER) (test code = [place], 1538) [address]: Clinical Services Specialist/Techni grisel ID = [id number] for MIHIR DIAZ HEPATIC FUNCTION [id number] 07:38:26 Test Item Value Reference Range Interpretation [...] (test code = 41 U/L 6-55 347) Clinical Services Specialist ID Darian COVARRUBIAS FSpecimen moderately [id number] 07:38:25 Test Item Value Reference Range Interpretation Comments PHOSPHORUS (BEAKER) (test code = 4.7 mg/dL 2.3-4.7 604) Clinical Services Specialist ID Darian COVARRUBIAS FBASIC METABOLIC [id number] 07:38:25 Test Item Value Reference Range Interpretation [...] S NOT APPLICABLE FOR DIALYSIS PATIEN TS. Clinical Services Specialist ID - SATISH FSpecimen moderately [id number] 07:38:24 Test Item Value Reference Range Interpretation Comments MAGNESIUM (BEAKER) (test code = 1.9 mg/dL 1.6-2.6 627) Clinical Services Specialist ID - SATISH FProthrombin time/[id number] 05:43:19 Test Item Value Reference Interpretation Comments [...] valves. Lab Interpretation Normal (test code = 51763-7) [facility] HospitalProthrombin time/[id number] 05:43:19 Test Item Value Reference Interpretation Comments [...] valves. Lab Interpretation Normal (test code = 18107-0) [facility] HospitalPROTHROMBIN TIME/[id number] 05:43:19 Test Item Value Reference Range Interpretation Comments PROTIME (BEAKER) 13.5 seconds 11.9-14.2 (test code = 759) INR (BEAKER) (test 1.05 See_Comment [Automat ed message] code = 370) The system [email or web address] generated this result transmitted ref erence range: <=5.90. The reference range was not used to int erpret this result as normal/abnormal . RECOMMENDED COUMADIN/WARFARIN INR THERAPY RANGESSTANDARD DOSE: 2.0 - 3.0 Includes: PROPHYLAXIS for venous thrombosis, systemic embolization; TREATMENT for venous thrombosis and/or pulmonary embolus.HIGH RISK: Target INR is 2.5-3.5 for patients with mechanical heart valves.CBC W/PLT COUNT & AUTO [id number] 05:31:08 Test Item Value Reference Range Interpretation [...] PERCENT (BEAKER) (test code = 2801) POCT-GLUCOSE [id number] 21:27:11 Test Item Value Reference Range Interpretation Comments POC-GLUCOSE METER 126 mg/dL 70-110 H : TESTED A T [facility] 6720 (BEAKER) (test code = K[place], 1538) [address]: Clinical Services Specialist/Techni grisel ID = [id number] for BROWN CLAYTON HIV-1 Antigen with HIV-1/2 [id number] 18:15:07 Test Item Value Reference Range Interpretation Comments HIV-1 Antigen with HIV 1&2 Nonreactive Nonreactive Antibody (test code = 96939-2) SOPHIA (test code = SOPHIA) Clinical Services Specialist ID - BS Lab Interpretation (test Normal code = 91359-7) [facility] HospitalHepatitis A antibody, [id number] 18:15:07 Test Item Value Reference Range Interpretation Comments Hep A IgG (test code = Nonreactive Nonreactive 48779-5) SOPHIA (test code = SOPHIA) Clinical Services Specialist ID - BS Lab Interpretation (test Normal code = 08183-7) [facility]HIV[facility] Antigen with HIV-1/2 [id number] 18:15:07 Test Item Value Reference Range Interpretation Comments HIV-1 Antigen with HIV 1&2 Nonreactive Nonreactive Antibody (test code = 45648-5) SOPHIA (test code = SOPHIA) Clinical Services Specialist ID - BS Lab Interpretation (test Normal code = 53471-9) [facility] HospitalHep[facility] A antibody, [id number] 18:15:07 Test Item Value Reference Range Interpretation Comments Hep A IgG (test code = Nonreactive Nonreactive 94652-2) SOPHIA (test code = SOPHIA) Clinical Services Specialist ID - BS Lab Interpretation (test Normal code = 36366-4) [facility]HIV[facility] Antigen with HIV-1/2 [id number] 18:15:07 Test Item Value Reference Range Interpretation Comments HIV-1 Antigen with HIV 1&2 Nonreactive Nonreactive Antibody (test code = 98079-7) SOPHIA (test code = SOPHIA) Clinical Services Specialist ID - BS Lab Interpretation (test Normal code = 94993-3) [facility], [id number] 18:15:07 Test Item Value Reference Range Interpretation Comments Hep A IgG (test code = Nonreactive Nonreactive 63366-5) SOPHIA (test code = SOPHIA) Clinical Services Specialist ID - BS Lab Interpretation (test Normal code = 30214-6) [facility]HIV[facility] Antigen with HIV-1/2 [id number] 18:15:07 Test Item Value Reference Range Interpretation Comments HIV-1 Antigen with HIV 1&2 Nonreactive Nonreactive Antibody (test code = 00754-9) SOPHIA (test code = SOPHIA) Clinical Services Specialist ID - BS Lab Interpretation (test Normal code = 13177-5) [facility]He[facility] A antibody, [id number] 18:15:07 Test Item Value Reference Range Interpretation Comments Hep A IgG (test code = Nonreactive Nonreactive 04646-1) SOPHIA (test code = SOPHIA) Clinical Services Specialist ID - BS Lab Interpretation (test Normal code = 33627-2) [facility]HIV[facility] Antigen with HIV-1/2 [id number] 18:15:07 Test Item Value Reference Range Interpretation Comments HIV-1 Antigen with HIV 1&2 Nonreactive Nonreactive Antibody (test code = 27376-0) SOPHIA (test code = SOPHIA) Clinical Services Specialist ID - BS Lab Interpretation (test Normal code = 58935-0) [facility] HospitalHep[facility] antibody, [id number] 18:15:07 Test Item Value Reference Range Interpretation Comments Hep A IgG (test code = Nonreactive Nonreactive 17942-6) SOPHIA (test code = SOPHIA) Clinical Services Specialist ID - BS Lab Interpretation (test Normal code = 04300-6) [facility] Antigen with HIV-1/2 [id number] 18:15:07 Test Item Value Reference Range Interpretation Comments HIV-1 Antigen with HIV 1&2 Nonreactive Nonreactive Antibody (test code = 87181-7) SOPHIA (test code = SOPHIA) Clinical Services Specialist ID - BS Lab Interpretation (test Normal code = 77882-2) [facility]He[facility] A antibody, [id number] 18:15:07 Test Item Value Reference Range Interpretation Comments Hep A IgG (test code = Nonreactive Nonreactive 21859-2) SOPHIA (test code = SOPHIA) Clinical Services Specialist ID - BS Lab Interpretation (test Normal code = 15412-5) [facility]HIV[facility] Antigen with HIV-1/2 [id number] 18:15:07 Test Item Value Reference Range Interpretation Comments HIV-1 Antigen with HIV 1&2 Nonreactive Nonreactive Antibody (test code = 74450-5) SOPHIA (test code = SOPHIA) Clinical Services Specialist ID - BS Lab Interpretation (test Normal code = 45965-3) [facility] A antibody, [id number] 18:15:07 Test Item Value Reference Range Interpretation Comments Hep A IgG (test code = Nonreactive Nonreactive 53071-7) SOPHIA (test code = SOPHIA) Clinical Services Specialist ID - BS Lab Interpretation (test Normal code = 52580-9) [facility] ANTIGEN WITH HIV-1/2 [id number] 18:15:07 Test Item Value Reference Range Interpretation Comments HIV-1 ANTIGEN WITH HIV 1\\T\\2 Nonreactive Nonreactive ANTIBODY (2) (BEAKER) (test code = 2586) Clinical Services Specialist ID - BSHEPATITIS A ANTIBODY, [id number] 18:15:07 Test Item Value Reference Range Interpretation Comments HEPATITIS A IGG ANTIBODY (BEAKER) Nonreactive Nonreactive (test code = 2797) Clinical Services Specialist ID - BSHepatitis A antibody, [id number] 18:15:06 Test Item Value Reference Range Interpretation Comments Hep A IgM (test code = Nonreactive Nonreactive 92146-6) SOPHIA (test code = SOPHIA) Clinical Services Specialist ID - BS Lab Interpretation (test Normal code = 56817-4) [facility]Hep[facility] antibody, [id number] 18:15:06 Test Item Value Reference Range Interpretation Comments Hep A IgM (test code = Nonreactive Nonreactive 13047-3) SOPHIA (test code = SOPHIA) Clinical Services Specialist ID - BS Lab Interpretation (test Normal code = 34986-3) [facility] HospitalHep[facility] A antibody, [id number] 18:15:06 Test Item Value Reference Range Interpretation Comments Hep A IgM (test code = Nonreactive Nonreactive 31695-5) SOPHIA (test code = SOPHIA) Clinical Services Specialist ID - BS Lab Interpretation (test Normal code = 64778-3) [facility], [id number] 18:15:06 Test Item Value Reference Range Interpretation Comments Hep A IgM (test code = Nonreactive Nonreactive 71404-3) SOPHIA (test code = SOPHIA) Clinical Services Specialist ID - BS Lab Interpretation (test Normal code = 76527-3) [facility] HospitalHep[facility] antibody, [id number] 18:15:06 Test Item Value Reference Range Interpretation Comments Hep A IgM (test code = Nonreactive Nonreactive 83702-7) SOPHIA (test code = SOPHIA) Clinical Services Specialist ID - BS Lab Interpretation (test Normal code = 21730-2) [facility]He[facility] A antibody, [id number] 18:15:06 Test Item Value Reference Range Interpretation Comments Hep A IgM (test code = Nonreactive Nonreactive 34533-4) SOPHIA (test code = SOPHIA) Clinical Services Specialist ID - BS Lab Interpretation (test Normal code = 69419-2) [facility] HospitalHep[facility] antibody, [id number] 18:15:06 Test Item Value Reference Range Interpretation Comments Hep A IgM (test code = Nonreactive Nonreactive 58652-4) SOPHIA (test code = SOPHIA) Clinical Services Specialist ID - BS Lab Interpretation (test Normal code = 05659-0) [facility]HEPAT[facility]IS A ANTIBODY, [id number] 18:15:06 Test Item Value Reference Range Interpretation Comments HEPATITIS A IGM ANTIBODY (BEAKER) Nonreactive Nonreactive (test code = 498) Clinical Services Specialist ID - BSHepatitis B core antibody, [id number] 18:10:03 Test Item Value Reference Range Interpretation Comments Hep B Core Total Ab (test Nonreactive Nonreactive code = 13616-0) SOPHIA (test code = SOPHIA) Clinical Services Specialist ID - BS Lab Interpretation (test Normal code = 42368-3) [facility] [id number] 18:10:03 Test Item Value Reference Range Interpretation Comments Hepatitis C Ab (test code = Nonreactive Nonreactive 38403-9) SOPHIA (test code = SOPHIA) Clinical Services Specialist ID - BS Lab Interpretation (test Normal code = 53465-1) [facility] antibody, [id number] 18:10:03 Test Item Value Reference Range Interpretation Comments Hep B Core Total Ab (test Nonreactive Nonreactive code = 79709-3) SOPHIA (test code = SOPHIA) Clinical Services Specialist ID - BS Lab Interpretation (test Normal code = 55472-8) [facility] C [id number] 18:10:03 Test Item Value Reference Range Interpretation Comments Hepatitis C Ab (test code = Nonreactive Nonreactive 15467-4) SOPHIA (test code = SOPHIA) Clinical Services Specialist ID - BS Lab Interpretation (test Normal code = 91758-9) [facility], [id number] 18:10:03 Test Item Value Reference Range Interpretation Comments Hep B Core Total Ab (test Nonreactive Nonreactive code = 15853-4) SOPHIA (test code = SOPHIA) Clinical Services Specialist ID - BS Lab Interpretation (test Normal code = 17298-9) [facility] [id number] 18:10:03 Test Item Value Reference Range Interpretation Comments Hepatitis C Ab (test code = Nonreactive Nonreactive 84994-9) SOPHIA (test code = SOPHIA) Clinical Services Specialist ID - BS Lab Interpretation (test Normal code = 27397-9) [facility] core antibody, [id number] 18:10:03 Test Item Value Reference Range Interpretation Comments Hep B Core Total Ab (test Nonreactive Nonreactive code = 38775-3) SOPHIA (test code = SOPHIA) Clinical Services Specialist ID - BS Lab Interpretation (test Normal code = 30239-3) [facility] C [id number] 18:10:03 Test Item Value Reference Range Interpretation Comments Hepatitis C Ab (test code = Nonreactive Nonreactive 25874-0) SOPHIA (test code = SOPHIA) Clinical Services Specialist ID - BS Lab Interpretation (test Normal code = 58820-6) [facility] B core antibody, [id number] 18:10:03 Test Item Value Reference Range Interpretation Comments Hep B Core Total Ab (test Nonreactive Nonreactive code = 35214-7) SOPHIA (test code = SOPHIA) Clinical Services Specialist ID - BS Lab Interpretation (test Normal code = 40922-2) [facility] C [id number] 18:10:03 Test Item Value Reference Range Interpretation Comments Hepatitis C Ab (test code = Nonreactive Nonreactive 13318-2) SOPHIA (test code = SOPHIA) Clinical Services Specialist ID - BS Lab Interpretation (test Normal code = 23243-1) [facility] B core antibody, [id number] 18:10:03 Test Item Value Reference Range Interpretation Comments Hep B Core Total Ab (test Nonreactive Nonreactive code = 37987-6) SOPHIA (test code = SOPHIA) Clinical Services Specialist ID - BS Lab Interpretation (test Normal code = 31681-5) [facility] C [id number] 18:10:03 Test Item Value Reference Range Interpretation Comments Hepatitis C Ab (test code = Nonreactive Nonreactive 08318-8) SOPHIA (test code = SOPHIA) Clinical Services Specialist ID - BS Lab Interpretation (test Normal code = 40249-0) [facility] B core antibody, [id number] 18:10:03 Test Item Value Reference Range Interpretation Comments Hep B Core Total Ab (test Nonreactive Nonreactive code = 45159-8) SOPHIA (test code = SOPHIA) Clinical Services Specialist ID - BS Lab Interpretation (test Normal code = 44553-7) [facility] C [id number] 18:10:03 Test Item Value Reference Range Interpretation Comments Hepatitis C Ab (test code = Nonreactive Nonreactive 72294-7) SOPHIA (test code = SOPHIA) Clinical Services Specialist ID - BS Lab Interpretation (test Normal code = 30538-9) [facility] [id number] 18:10:03 Test Item Value Reference Range Interpretation Comments HEPATITIS C ANTIBODY (BEAKER) Nonreactive Nonreactive (test code = 367) Clinical Services Specialist ID - BSHEPATITIS B CORE ANTIBODY, [id number] 18:10:03 Test Item Value Reference Range Interpretation Comments HEPATITIS B CORE TOTAL ANTIBODY Nonreactive Nonreactive (BEAKER) (test code = 497) Clinical Services Specialist ID - BSCarcinoembryonic Antigen (CEA)2021-06-03 18:10:02 Test Item Value Reference Range Interpretation Comments CEA, SERUM (test code = 3.3 ng/mL 0.0-5.0 2038-) SOPHIA (test code = SOPHIA) Clinical Services Specialist ID - BS Lab Interpretation (test Normal code = 18742-5) [facility] [id number] 18:10:02 Test Item Value Reference Range Interpretation Comments Hepatitis B surface Nonreactive Nonreactive antigen (test code = 5195-3) SOPHIA (test code = SOPHIA) Specimen is considered negative for HBsAg. Lab Interpretation (test Normal code = 87791-4) [facility] ([facility]A)2021-06-03 18:10:02 Test Item Value Reference Range Interpretation Comments CEA, SERUM (test code = 3.3 ng/mL 0.0-5.0 2038-) SOPHIA (test code = SOPHIA) Clinical Services Specialist ID - BS Lab Interpretation (test Normal code = 61963-6) [facility] surface [id number] 18:10:02 Test Item Value Reference Range Interpretation Comments Hepatitis B surface Nonreactive Nonreactive antigen (test code = 5195-3) SOPHIA (test code = SOPHIA) Specimen is considered negative for HBsAg. Lab Interpretation (test Normal code = 77563-3) [facility] (CEA)2021-06-03 18:10:02 Test Item Value Reference Range Interpretation Comments CEA, SERUM (test code = 3.3 ng/mL 0.0-5.0 2038-6) SOPHIA (test code = SOPHIA) Clinical Services Specialist ID - BS Lab Interpretation (test Normal code = 75465-2) [facility] B surface [id number] 18:10:02 Test Item Value Reference Range Interpretation Comments Hepatitis B surface Nonreactive Nonreactive antigen (test code = 5195-3) SOPHIA (test code = SOPHIA) Specimen is considered negative for HBsAg. Lab Interpretation (test Normal code = 52050-8) [facility] (CEA)2021-06-03 18:10:02 Test Item Value Reference Range Interpretation Comments CEA, SERUM (test code = 3.3 ng/mL 0.0-5.0 2038-) SOPHIA (test code = SOPHIA) Clinical Services Specialist ID - BS Lab Interpretation (test Normal code = 07460-8) [facility] B surface [id number] 18:10:02 Test Item Value Reference Range Interpretation Comments HBsAg Screen (test code Nonreactive Nonreactive = 5195-3) SOPHIA (test code = SOPHIA) Specimen is considered negative for HBsAg. Lab Interpretation (test Normal code = 65550-1) [facility] (CEA)2021-06-03 18:10:02 Test Item Value Reference Range Interpretation Comments CEA, SERUM (test code = 3.3 ng/mL 0.0-5.0 2038-) SOPHIA (test code = SOPHIA) Clinical Services Specialist ID - BS Lab Interpretation (test Normal code = 37550-0) [facility] surface [id number] 18:10:02 Test Item Value Reference Range Interpretation Comments HBsAg Screen (test code Nonreactive Nonreactive = 5195-3) SOPHIA (test code = SOPHIA) Specimen is considered negative for HBsAg. Lab Interpretation (test Normal code = 61469-8) [facility] (CEA)2021-06-03 18:10:02 Test Item Value Reference Range Interpretation Comments CEA, SERUM (test code = 3.3 ng/mL 0.0-5.0 2038-) SOPHIA (test code = SOPHIA) Clinical Services Specialist ID - BS Lab Interpretation (test Normal code = 78382-2) [facility] B surface [id number] 18:10:02 Test Item Value Reference Range Interpretation Comments Hepatitis B surface Nonreactive Nonreactive antigen (test code = 5195-3) SOPHIA (test code = SOPHIA) Specimen is considered negative for HBsAg. Lab Interpretation (test Normal code = 62252-2) [facility] (CEA)2021-06-03 18:10:02 Test Item Value Reference Range Interpretation Comments CEA, SERUM (test code = 3.3 ng/mL 0.0-5.0 2038-11) SOPHIA (test code = SOPHIA) Clinical Services Specialist ID - BS Lab Interpretation (test Normal code = 07286-6) [facility] surface [id number] 18:10:02 Test Item Value Reference Range Interpretation Comments Hepatitis B surface Nonreactive Nonreactive antigen (test code = 5195-3) SOPHIA (test code = SOPHIA) Specimen is considered negative for HBsAg. Lab Interpretation (test Normal code = 34600-5) [facility] HospitalCARCINOEMBRYONIC ANTIGEN (CEA)2021-06-03 18:10:02 Test Item Value Reference Range Interpretation Comments CARCINOEMBRYONIC ANTIGEN (BEAKER) 3.3 ng/mL 0.0-5.0 (test code = 685) Clinical Services Specialist ID - BSHEPATITIS B SURFACE [id number] 18:10:02 Test Item Value Reference Range Interpretation Comments HEPATITIS B SURFACE ANTIGEN (2) Nonreactive Nonreactive (BEAKER) (test code = 2585) Specimen is considered negative for HBsAg.POCT-GLUCOSE [id number] 17:40:09 Test Item Value Reference Range Interpretation Comments POC-GLUCOSE METER 130 mg/dL 70-110 H : TESTED A T [facility] 6720 (BEAKER) (test code = KENYA Mcmullen [facility], 1538) [address]: Clinical Services Specialist/Techni grisel ID = [id number] for MIHIR DIAZ Bilirubin, [id number] 16:43:09 Test Item Value Reference Range Interpretation Comments Bilirubin, Direct 5.6 mg/dL 0.1-0.5 H Specimen (test code = 1967-) slightl y hemolyzed SOPHIA (test code = SOPHIA) Clinical Services Specialist ID - BS Lab Interpretation Abnormal (test code = 74754-7) [facility], [id number] 16:43:09 Test Item Value Reference Range Interpretation Comments Bilirubin, Direct 5.6 mg/dL 0.1-0.5 H Specimen (test code = 1967-12) slightl y hemolyzed SOPHIA (test code = SOPHIA) Clinical Services Specialist ID - BS Lab Interpretation Abnormal (test code = 00264-3) [facility], [id number] 16:43:09 Test Item Value Reference Range Interpretation Comments Bilirubin, Direct 5.6 mg/dL 0.1-0.5 H Specimen (test code = 1967-12) slightl y hemolyzed SOPHIA (test code = SOPHIA) Clinical Services Specialist ID - BS Lab Interpretation Abnormal (test code = 33142-3) [facility], [id number] 16:43:09 Test Item Value Reference Range Interpretation Comments Bilirubin, Direct 5.6 mg/dL 0.1-0.5 H Specimen (test code = 1967-12) slightl y hemolyzed SOPHIA (test code = SOPHIA) Clinical Services Specialist ID - BS Lab Interpretation Abnormal (test code = 91254-3) [facility], [id number] 16:43:09 Test Item Value Reference Range Interpretation Comments Bilirubin, Direct 5.6 mg/dL 0.1-0.5 H Specimen (test code = 1967-12) slightl y hemolyzed SOPHIA (test code = SOPIHA) Clinical Services Specialist ID - BS Lab Interpretation Abnormal (test code = 56767-0) [facility], [id number] 16:43:09 Test Item Value Reference Range Interpretation Comments Bilirubin, Direct 5.6 mg/dL 0.1-0.5 H Specimen (test code = 1967-12) slightl y hemolyzed SOPHIA (test code = SOPHIA) Clinical Services Specialist ID - BS Lab Interpretation Abnormal (test code = 47562-3) [facility], [id number] 16:43:09 Test Item Value Reference Range Interpretation Comments Bilirubin, Direct 5.6 mg/dL 0.1-0.5 H Specimen (test code = 1967-12) slightl y hemolyzed SOPHIA (test code = SOPHIA) Clinical Services Specialist ID - BS Lab Interpretation Abnormal (test code = 42521-7) [facility] HospitalBILIRUBIN, [id number] 16:43:09 Test Item Value Reference Range Interpretation Comments BILIRUBIN DIRECT 5.6 mg/dL 0.1-0.5 H Specimen sl ightly (BEAKER) (test code = hemoly zed 706) Clinical Services Specialist ID - BSLipid [id number] 16:43:03 Test Item Value Reference Range Interpretation Comments Triglycerides (test 352 mg/dL Specimen code = 2571-8) slightly hemolyzed Cholesterol (test 234 mg/dL Specimen code = 3-3) slightly hemolyzed HDL (test code = 11 mg/dL 2085-02) LDL Calculated (test 153 mg/dL code = 35112-9) SOPHIA (test code = Triglyceride SOPHIA) Reference Range: Low Risk <150 Borderline 150-199 High Risk 200-499 Very High Risk >=500 Cholesterol Reference Range: Low Risk <200 Borderline 200-239 High Risk >240 HDL Cholesterol Reference Range: Low Risk >=60 High Risk <40 LDL Cholesterol Reference Range: Optimal <100 Near Optimal 100-129 Borderline 130-159 High 160-189 Very High >=190 Clinical Services Specialist ID - BSSpecimen moderately icteric [facility] HospitalLipid [id number] 16:43:03 Test Item Value Reference Range Interpretation Comments Triglycerides (test 352 mg/dL Specimen code = 2571-8) slightly hemolyzed Cholesterol (test 234 mg/dL Specimen code = 2092-3) slightly hemolyzed HDL (test code = 11 mg/dL 2085-02) LDL Calculated (test 153 mg/dL code = 01161-2) SOPHIA (test code = Triglyceride SOPHIA) Reference Range: Low Risk <150 Borderline 150-199 High Risk 200-499 Very High Risk >=500 Cholesterol Reference Range: Low Risk <200 Borderline 200-239 High Risk >240 HDL Cholesterol Reference Range: Low Risk >=60 High Risk <40 LDL Cholesterol Reference Range: Optimal <100 Near Optimal 100-129 Borderline 130-159 High 160-189 Very High >=190 Clinical Services Specialist ID - BSSpecimen moderately icteric [facility] HospitalLipid [id number] 16:43:03 Test Item Value Reference Range Interpretation Comments Triglycerides (test 352 mg/dL Specimen code = 2571-8) slightly hemolyzed Cholesterol (test 234 mg/dL Specimen code = 3-3) slightly hemolyzed HDL (test code = 11 mg/dL 2085-02) LDL Calculated (test 153 mg/dL code = 79932-9) SOPHIA (test code = Triglyceride SOPHIA) Reference Range: Low Risk <150 Borderline 150-199 High Risk 200-499 Very High Risk >=500 Cholesterol Reference Range: Low Risk <200 Borderline 200-239 High Risk >240 HDL Cholesterol Reference Range: Low Risk >=60 High Risk <40 LDL Cholesterol Reference Range: Optimal <100 Near Optimal 100-129 Borderline 130-159 High 160-189 Very High >=190 Clinical Services Specialist ID - BSSpecimen moderately icteric [facility] HospitalLipid [id number] 16:43:03 Test Item Value Reference Range Interpretation Comments Triglycerides (test 352 mg/dL Specimen code = 2571-8) slightly hemolyzed Cholesterol (test 234 mg/dL Specimen code = 2092-3) slightly hemolyzed HDL (test code = 11 mg/dL 2085-02) LDL Calculated (test 153 mg/dL code = 64705-5) SOPHIA (test code = Triglyceride SOPHIA) Reference Range: Low Risk <150 Borderline 150-199 High Risk 200-499 Very High Risk >=500 Cholesterol Reference Range: Low Risk <200 Borderline 200-239 High Risk >240 HDL Cholesterol Reference Range: Low Risk >=60 High Risk <40 LDL Cholesterol Reference Range: Optimal <100 Near Optimal 100-129 Borderline 130-159 High 160-189 Very High >=190 Clinical Services Specialist ID - BSSpecimen moderately icteric [facility] HospitalLipid [id number] 16:43:03 Test Item Value Reference Range Interpretation Comments Triglycerides (test 352 mg/dL Specimen code = 2571-8) slightly hemolyzed Cholesterol (test 234 mg/dL Specimen code = 2092-3) slightly hemolyzed HDL (test code = 11 mg/dL 2085-02) LDL Calculated (test 153 mg/dL code = 39417-2) SOPHIA (test code = Triglyceride SOPHIA) Reference Range: Low Risk <150 Borderline 150-199 High Risk 200-499 Very High Risk >=500 Cholesterol Reference Range: Low Risk <200 Borderline 200-239 High Risk >240 HDL Cholesterol Reference Range: Low Risk >=60 High Risk <40 LDL Cholesterol Reference Range: Optimal <100 Near Optimal 100-129 Borderline 130-159 High 160-189 Very High >=190 Clinical Services Specialist ID - BSSpecimen moderately icteric [facility] HospitalLipid [id number] 16:43:03 Test Item Value Reference Range Interpretation Comments Triglycerides (test 352 mg/dL Specimen code = 2571-8) slightly hemolyzed Cholesterol (test 234 mg/dL Specimen code = 2092-) slightly hemolyzed HDL (test code = 11 mg/dL 2085-02) LDL Calculated (test 153 mg/dL code = 44253-2) SOPHIA (test code = Triglyceride SOPHIA) Reference Range: Low Risk <150 Borderline 150-199 High Risk 200-499 Very High Risk >=500 Cholesterol Reference Range: Low Risk <200 Borderline 200-239 High Risk >240 HDL Cholesterol Reference Range: Low Risk >=60 High Risk <40 LDL Cholesterol Reference Range: Optimal <100 Near Optimal 100-129 Borderline 130-159 High 160-189 Very High >=190 Clinical Services Specialist ID - BSSpecimen moderately icteric [facility] HospitalLipid [id number] 16:43:03 Test Item Value Reference Range Interpretation Comments Triglycerides (test 352 mg/dL Specimen code = 2571-8) slightly hemolyzed Cholesterol (test 234 mg/dL Specimen code = 2092-08) slightly hemolyzed HDL (test code = 11 mg/dL 2085-02) LDL Calculated (test 153 mg/dL code = 50210-8) SOPHIA (test code = Triglyceride SOPHIA) Reference Range: Low Risk <150 Borderline 150-199 High Risk 200-499 Very High Risk >=500 Cholesterol Reference Range: Low Risk <200 Borderline 200-239 High Risk >240 HDL Cholesterol Reference Range: Low Risk >=60 High Risk <40 LDL Cholesterol Reference Range: Optimal <100 Near Optimal 100-129 Borderline 130-159 High 160-189 Very High >=190 Clinical Services Specialist ID - BSSpecimen moderately icteric [facility] HospitalLIPID [id number] 16:43:03 Test Item Value Reference Range Interpretation [...] Borderline 130-159 High 160-189 Very High >=190 Clinical Services Specialist ID - BSSpecimen moderately lrhcybtDlswg-6-rzsbmdocrve3368-12-14 16:26:58 Test Item Value Reference Range Interpretation Comments A-1 Antitrypsin (test code = 235.60 mg/dL 90.00-200.00 H 1825-9) SOPHIA (test code = SOPHIA) Clinical Services Specialist ID - BS Lab Interpretation (test Abnormal code = 39440-2) [facility] HospitalYobvcqEryhm-5-yivdmzdradl7697-12-14 16:26:58 Test Item Value Reference Range Interpretation Comments A-1 Antitrypsin (test code = 235.60 mg/dL 90.00-200.00 H 1825-9) SOPHIA (test code = SOPHIA) Clinical Services Specialist ID - BS Lab Interpretation (test Abnormal code = 73464-6) [facility] HospitalBagkkbXqhnk-1-csdorkpczvb2933-12-14 16:26:58 Test Item Value Reference Range Interpretation Comments A-1 Antitrypsin (test code = 235.60 mg/dL 90.00-200.00 H 1825-9) SOPHIA (test code = SOPHIA) Clinical Services Specialist ID - BS Lab Interpretation (test Abnormal code = 47943-2) [facility] HospitalMumdvmZmrot-2-vdenbsnflab7075-12-14 16:26:58 Test Item Value Reference Range Interpretation Comments A-1 Antitrypsin (test code = 235.60 mg/dL 90.00-200.00 H 1825-9) SOPHIA (test code = SOPHIA) Clinical Services Specialist ID - BS Lab Interpretation (test Abnormal code = 64972-0) [facility] HospitalThcygqUovfu-9-ycgonzdxjsi2633-12-14 16:26:58 Test Item Value Reference Range Interpretation Comments A-1 Antitrypsin (test code = 235.60 mg/dL 90.00-200.00 H 1825-9) SOPHIA (test code = SOPHIA) Clinical Services Specialist ID - BS Lab Interpretation (test Abnormal code = 02329-1) [facility] HospitalRypebjMeqsr-9-uenpslpfiwv5145-12-14 16:26:58 Test Item Value Reference Range Interpretation Comments A-1 Antitrypsin (test code = 235.60 mg/dL 90.00-200.00 H 1825-9) SOPHIA (test code = SOPHIA) Clinical Services Specialist ID - BS Lab Interpretation (test Abnormal code = 51890-5) [facility] HospitalNdniyhLdnru-4-gjrrgrkzuod9761-12-14 16:26:58 Test Item Value Reference Range Interpretation Comments A-1 Antitrypsin (test code = 235.60 mg/dL 90.00-200.00 H 1825-9) SOPHIA (test code = SOPHIA) Clinical Services Specialist ID - BS Lab Interpretation (test Abnormal code = 39383-6) [facility] HospitalJamqveYQCWJ-3-HHKZAJYMXHK6541-12-14 16:26:58 Test Item Value Reference Range Interpretation Comments ALPHA-1 ANTITRYPSIN (BEAKER) 235.60 mg/dL 90.00-200.00 H (test code = 502) Clinical Services Specialist ID - OVJknnqzcd9754-13-33 15:33:02 Test Item Value Reference Range Interpretation Comments Ferritin (test code = 174.69 ng/mL 5.00-275.00 2276-4) SOPHIA (test code = SOPHIA) Clinical Services Specialist ID - BS Lab Interpretation (test Normal code = 16489-0) [facility] HospitalFerritin2021-12-14 15:33:02 Test Item Value Reference Range Interpretation Comments Ferritin (test code = 174.69 ng/mL 5.00-275.00 2276-4) SOPHIA (test code = SOPHIA) Clinical Services Specialist ID - BS Lab Interpretation (test Normal code = 35879-8) [facility] HospitalFerritin2021-12-14 15:33:02 Test Item Value Reference Range Interpretation Comments Ferritin (test code = 174.69 ng/mL 5.00-275.00 2276-4) SOPHIA (test code = SOPHIA) Clinical Services Specialist ID - BS Lab Interpretation (test Normal code = 94302-6) [facility] HospitalFerritin2021-12-14 15:33:02 Test Item Value Reference Range Interpretation Comments Ferritin (test code = 174.69 ng/mL 5.00-275.00 2276-4) SOPHIA (test code = SOPHIA) Clinical Services Specialist ID - BS Lab Interpretation (test Normal code = 47856-3) [facility] HospitalFerritin2021-12-14 15:33:02 Test Item Value Reference Range Interpretation Comments Ferritin (test code = 174.69 ng/mL 5.00-275.00 2276-4) SOPHIA (test code = SOPHIA) Clinical Services Specialist ID - BS Lab Interpretation (test Normal code = 12386-2) [facility] HospitalFerritin2021-12-14 15:33:02 Test Item Value Reference Range Interpretation Comments Ferritin (test code = 174.69 ng/mL 5.00-275.00 2276-4) SOPHIA (test code = SOPHIA) Clinical Services Specialist ID - BS Lab Interpretation (test Normal code = 25461-3) [facility] HospitalFerritin2021-12-14 15:33:02 Test Item Value Reference Range Interpretation Comments Ferritin (test code = 174.69 ng/mL 5.00-275.00 2276-4) SOPHIA (test code = SOPHIA) Clinical Services Specialist ID - BS Lab Interpretation (test Normal code = 75795-8) [facility] HospitalFERRITIN2021-12-14 15:33:02 Test Item Value Reference Range Interpretation Comments FERRITIN (BEAKER) (test code = 174.69 ng/mL 5.00-275.00 361) Clinical Services Specialist ID - BSIron, TIBC, % sat. (without ferritin)2021-06-03 15:12:01 Test Item Value Reference Range Interpretation Comments Iron (test code = 2498-4) 103.0 ug/dL 40.0-160.0 TIBC (test code = 2500-7) 384 ug/dL 250-450 Iron % Saturation (test code 27 % 20-55 = 2502-3) SOPHIA (test code = SOPHIA) Clinical Services Specialist ID - BS Lab Interpretation (test Normal code = 91621-8) [facility] HospitalIron, TIBC, % sat. (without ferritin)2021-06-03 15:12:01 Test Item Value Reference Range Interpretation Comments Iron (test code = 2498-4) 103.0 ug/dL 40.0-160.0 TIBC (test code = 2500-7) 384 ug/dL 250-450 Iron % Saturation (test code 27 % 20-55 = 2502-3) SOPHIA (test code = SOPHIA) Clinical Services Specialist ID - BS Lab Interpretation (test Normal code = 30524-3) [facility], TIBC, % sat. (without ferritin)2021-06-03 15:12:01 Test Item Value Reference Range Interpretation Comments Iron (test code = 2498-4) 103.0 ug/dL 40.0-160.0 TIBC (test code = 2500-7) 384 ug/dL 250-450 Iron % Saturation (test code 27 % 20-55 = 2502-3) SOPHIA (test code = SOPHIA) Clinical Services Specialist ID - BS Lab Interpretation (test Normal code = 15647-2) [facility], TIBC, % sat. (without ferritin)2021-06-03 15:12:01 Test Item Value Reference Range Interpretation Comments Iron (test code = 2498-4) 103.0 ug/dL 40.0-160.0 TIBC (test code = 2500-7) 384 ug/dL 250-450 Iron % Saturation (test code 27 % 20-55 = 2502-3) SOPHIA (test code = SOPHIA) Clinical Services Specialist ID - BS Lab Interpretation (test Normal code = 78281-1) [facility], TIBC, % sat. (without ferritin)2021-06-03 15:12:01 Test Item Value Reference Range Interpretation Comments Iron (test code = 2498-4) 103.0 ug/dL 40.0-160.0 TIBC (test code = 2500-7) 384 ug/dL 250-450 Iron % Saturation (test code 27 % 20-55 = 2502-3) SOPHIA (test code = SOPHIA) Clinical Services Specialist ID - BS Lab Interpretation (test Normal code = 52559-4) [facility], TIBC, % sat. (without ferritin)2021-06-03 15:12:01 Test Item Value Reference Range Interpretation Comments Iron (test code = 2498-4) 103.0 ug/dL 40.0-160.0 TIBC (test code = 2500-7) 384 ug/dL 250-450 Iron % Saturation (test code 27 % 20-55 = 2502-3) SOPHIA (test code = SOPHIA) Clinical Services Specialist ID - BS Lab Interpretation (test Normal code = 91081-0) [facility] % sat. (without ferritin)2021-06-03 15:12:01 Test Item Value Reference Range Interpretation Comments Iron (test code = 2498-4) 103.0 ug/dL 40.0-160.0 TIBC (test code = 2500-7) 384 ug/dL 250-450 Iron % Saturation (test code 27 % 20-55 = 2502-3) SOPHIA (test code = SOPHIA) Clinical Services Specialist ID - BS Lab Interpretation (test Normal code = 16557-4) [facility] % SAT. (WITHOUT FERRITIN)2021-06-03 15:12:01 Test Item Value Reference Range Interpretation Comments IRON (BEAKER) (test code = 547) 103.0 ug/dL 40.0-160.0 TOTAL IRON BINDING CAPACITY 384 ug/dL 250-450 (BEAKER) (test code = 769) IRON % SATURATION (2) (BEAKER) 27 % 20-55 (test code = 2590) Clinical Services Specialist ID - BSAlpha fetoprotein (AFP), tumor [id number] 12:08:22 Test Item Value Reference Range Interpretation Comments Alpha-Fetoprotein (test 2.0 ng/mL <10.0 code = 1834-1) SOPHIA (test code = SOPHIA) Clinical Services Specialist ID - CAROLINA F Lab Interpretation (test Normal code = 51634-9) [facility] tumor [id number] 12:08:22 Test Item Value Reference Range Interpretation Comments Alpha-Fetoprotein (test 2.0 ng/mL <10.0 code = 1834-1) SOPHIA (test code = SOPHIA) Clinical Services Specialist ID - CAROLINA F Lab Interpretation (test Normal code = 26040-0) [facility] tumor [id number] 12:08:22 Test Item Value Reference Range Interpretation Comments Alpha-Fetoprotein (test 2.0 ng/mL <10.0 code = 1834-1) SOPHIA (test code = SOPHIA) Clinical Services Specialist ID - CAROLINA F Lab Interpretation (test Normal code = 85616-2) [facility] tumor [id number] 12:08:22 Test Item Value Reference Range Interpretation Comments Alpha-Fetoprotein (test 2.0 ng/mL <10.0 code = 1834-1) SOPHIA (test code = SOPHIA) Clinical Services Specialist ID - SATISH Castellano Lab Interpretation (test Normal code = 88847-3) [facility] tumor [id number] 12:08:22 Test Item Value Reference Range Interpretation Comments Alpha-Fetoprotein (test 2.0 ng/mL <10.0 code = 1834-1) SOPHIA (test code = SOPHIA) Clinical Services Specialist ID - SATISH Castellano Lab Interpretation (test Normal code = 23090-7) [facility] tumor [id number] 12:08:22 Test Item Value Reference Range Interpretation Comments Alpha-Fetoprotein (test 2.0 ng/mL <10.0 code = 1834-1) SOPHIA (test code = SOPHIA) Clinical Services Specialist ID - SATISH Castellano Lab Interpretation (test Normal code = 98565-6) [facility] tumor [id number] 12:08:22 Test Item Value Reference Range Interpretation Comments Alpha-Fetoprotein (test 2.0 ng/mL <10.0 code = 1834-1) SOPHIA (test code = SOPHIA) Clinical Services Specialist ID - SATISH Castellano Lab Interpretation (test Normal code = 58113-5) [facility]AFP), TUMOR [id number] 12:08:22 Test Item Value Reference Range Interpretation Comments ALPHA-FETOPROTEIN (BEAKER) (test 2.0 ng/mL <10.0 code = 1094) Clinical Services Specialist ID Darian COVARRUBIAS FCOMPREHENSIVE METABOLIC [id number] 11:49:08 Test Item Value Reference Range Interpretation [...] S NOT APPLICABLE FOR DIALYSIS PATIEN TS. Clinical Services Specialist ID - SATISH FSpecimen moderately ictericPROTHROMBIN TIME/INR 2021-06-03 11:36:32 Test Item Value Reference Range Interpretation Comments PROTIME (BEAKER) 12.9 seconds 11.9-14.2 (test code = 759) INR (BEAKER) (test 0.99 See_Comment [Automat ed message] code = 370) The system [email or web address] generated this result transmitted ref erence range: <=5.90. The reference range was not used to int erpret this result as normal/abnormal . RECOMMENDED COUMADIN/WARFARIN INR THERAPY RANGESSTANDARD DOSE: 2.0 - 3.0 Includes: PROPHYLAXIS for venous thrombosis, systemic embolization; TREATMENT for venous thrombosis and/or pulmonary embolus.HIGH RISK: Target INR is 2.5-3.5 for patients with mechanical heart valves.POCT-GLUCOSE [id number] 11:33:50 Test Item Value Reference Range Interpretation Comments POC-GLUCOSE METER 181 mg/dL 70-110 H : TESTED Melo T BSC 6720 (BEAKER) (test code = [place], 1538) [address]: Clinical Services Specialist/Techni grisel ID = [id number] for MIHIR DIAZ CBC W/PLT COUNT & AUTO [id number] 11:25:11 Test Item Value Reference Range Interpretation [...] 417) IMMATURE GRANULOCYTES-RELATIVE 0 % 0-1 PERCENT (ROBYN) (test code = 2801)
[2023-01-30] MEDS ORDERED: ONDANSETRON 4 MG/2 ML VIAL ONE (21:00)
[2023-01-30] MEDS ORDERED: NA CHLORIDE 0.9% 2,000 ML ONE (21:00)
[2023-01-30] MEDS ORDERED: ACETAMINOPHEN 500 MG TAB ONE (21:00)
[2023-01-30 21:09] LABS: Absolute Lymphocytes (CBC) 0.2 K/uL (0.7-4.9); Hematocrit 32.8 % (36.0-45.0); Lymphocytes % 5.7 % (15.3-44.8); MCV 80.8 fL (80-100); MPV 7.6 fL (7.6-11.3); Platelets 141 thou/uL (152-406); RBC Red Blood Cell Count 4.06 M/uL (3.86-4.86)
[2023-01-30 21:12] LABS: Protime INR 1.42
[2023-01-30 21:32] LABS: Albumin 3.2 g/dL (3.4-5.0); Bilirubin Total 1.3 mg/dL (0.2-1.0); Potassium 2.5 mEq/L (3.5-5.1); Protein, Total 7.6 g/dL (6.4-8.2)
[2023-01-30 21:54] LABS: Blood Morphology Comment NOT SEEN (NOT SEEN); Platelet Estimate ADEQ
--- NOTE | 2023-01-30 22:02 | RAD REPORT ---
EXAM DESCRIPTION: RADChest Single View01/30/2023 9:40 pm CLINICAL HISTORY: FEVER COMPARISON: Chest Single View dated 07/07/2021; Chest Single View dated 06/03/2021; Chest Single View dated 09/13/2020; Chest Single View dated 09/10/2020 TECHNIQUE: Portable AP view of the chest. FINDINGS: The lungs are clear.Bibasilar atelectasis and decreased inspiratory effort. Right chest wa ll Port-A-Cath placed. No pneumothorax or effusion. The cardiomediastinal contours are unremarkable. IMPRESSION: No acute cardiopulmonary process.
[2023-01-30] MEDS ORDERED: KCL 20 MEQ/100 mL IVPB 100 ML IV ONE (22:14)
[2023-01-30] MEDS ORDERED: POTASSIUM CL SA 10 MEQ TAB PO ONE (22:14)
[2023-01-30] MEDS ORDERED: NA CHLORIDE 0.9% 100 ML ONE (22:51)
[2023-01-30] MEDS ORDERED: CEFEPIME 2 GM VIAL ONE (22:51)
[2023-01-30] MEDS ORDERED: VANCOMYCIN 1 GM/VIAL ONE (22:52)
[2023-01-30] MEDS ORDERED: NA CHLORIDE 0.9% 250 ML ONE (22:52)
--- NOTE | 2023-01-30 23:36 | ER ---
Nurse's Notes [facility] [place] Name: Katie Santiago Age: 52 yrs Sex: Female : 1970 Arrival Date: 01/30/2023 Time: 20:05 Bed 3 Private MD: Diagnosis: Severe sepsis with septic shock;Acute Diverticulitis;Hypokalemia Presentation: 01/30 20:19 Chief complaint: Spouse and/or significant other states: fever vomiting today after kl getting overheated rode from [place] currently on morphine hydrocodone has liver cancer llast chemo2 weeks ago. Coronavirus screen: Vaccine status: Patient reports receiving the 2nd dose of the covid vaccine. Ebola Screen: Patient negative for fever greater than or equal to 101.5 degrees Fahrenheit, and additional compatible Ebola Virus Disease symptoms. Initial Sepsis Screen: Does the patient meet any 2 criteria? Altered Mental Status. HR > 90 bpm. Does the patient have a suspected source of infection? No. Patient's initial sepsis screen is negative. Risk Assessment: Do you want to hurt yourself or someone else? Patient reports no desire to harm self or others. 20:19 Method Of Arrival: Wheelchair kl 20:19 Acuity: ERIN 2 kl 21:08 Onset of symptoms was January 30, 2023. rv Triage Assessment: 20:22 General: Appears distressed, uncomfortable, Behavior is drowsy, flat, quiet. Pain: kl Complains of pain in mid-sternal area. GI: Reports nausea, vomiting. Historical: - Allergies: 20:22 No Known Allergies; kl - PMHx: 20:22 Hypertensive disorder; liver cancer; kl - PSHx: 20:22 None; kl - Immunization history:: Adult Immunizations not up to date. - Social history:: Smoking status: Patient denies any tobacco usage or history of. Screenin:07 [facility] ED Fall Risk Assessment (Adult) History of falling in the last 3 months, rv including since admission No falls in past 3 months (0 pts) Confusion or Disorientation No (0 pts) Intoxicated or Sedated No (0 pts) Impaired Gait No (0 pts) Mobility Assist Device Used No (0 pt) Altered Elimination No (0 pt) Score/Fall Risk Level 0 - 2 = Low Risk Oriented to surroundings, Maintained a safe environment, Educated pt \T\ family on fall prevention, incl call for assistance when getting out of bed, Assessed \T\ reinforced patient's understanding of fall precautions, Provided non-skid footwear, Hourly rounding (assess needs \T\ fall precautionary measures) done, Used ambulatory aids as needed (educated on \T\ assisted with), Used gait belt as appropriate. Abuse screen: Denies threats or abuse. Denies injuries from another. Nutritional screening: No deficits noted. Tuberculosis screening: No symptoms or risk factors identified. Assessment: 21:08 GI: Abdomen is round non-distended. rv 22:00 General: Appears uncomfortable, Behavior is calm, cooperative. rv 22:00 Pain: Complains of pain in GENERALIZED. Neuro: Level of Consciousness is awake, alert, rv obeys commands, Oriented to person, place, time, situation. Cardiovascular: Capillary refill < 3 seconds. Respiratory: Airway is patent Respiratory effort is even, unlabored. : No signs and/or symptoms were reported regarding the genitourinary system. 01/31 01:19 Reassessment: No changes from previously documented assessment. Patient and/or family rv updated on plan of care and expected duration. Pain level reassessed. Vital Signs: 01/30 20:19 BP 113 / 77; Pulse 135; Resp 20; Temp 100.8(O); Pulse Ox 96% on R/A; kl 21:05 Weight 72.65 kg; rv 22:12 Temp 101.1; rv 22:30 BP 94 / 65; Pulse 105; Resp 19; Pulse Ox 99% on R/A; jb4 22:45 BP 72 / 59 Supine; Pulse 99; Resp 19; Pulse Ox 100% on R/A; jb4 23:00 BP 82 / 60 Supine; Pulse 98; Resp 18; Pulse Ox 100% on R/A; jb4 23:15 BP 65 / 53 Supine; Pulse 92; Resp 18; Pulse Ox 100% ; jb4 23:30 BP 82 / 68; Pulse 94; Resp 18; Pulse Ox 100% on R/A; jb4 23:45 BP 76 / 56; Pulse 92; Resp 18; Pulse Ox 100% ; jb4 01/31 00:15 BP 82 / 60; Pulse 94; Resp 19; Temp 98.9; Pulse Ox 100% ; rv 00:30 BP 87 / 65; Pulse 89; Resp 18; Pulse Ox 100% on R/A; rv 01:00 BP 87 / 72; Pulse 94; Resp 18; Pulse Ox 100% on R/A; rv 02:00 BP 90 / 68; Pulse 88; Resp 18; Pulse Ox 100% ; rv 02:30 BP 103 / 79; Pulse 88; Resp 19; Pulse Ox 97% on R/A; jb4 03:00 BP 116 / 83; Pulse 97; Resp 17; Temp 98.5; Pulse Ox 100% ; jb4 [place] Coma Score: 03:22 Eye Response: spontaneous(4). Motor Response: obeys commands(6). Verbal Response: jb4 oriented(5). Total: 15. ED Course: 01/30 20:08 Patient arrived in ED. jj6 20:21 Triage completed. kl 20:29 Yusra Fernandez MD is Attending Physician. sd2 20:40 Inserted saline lock: 20 gauge in right forearm, using aseptic technique. Blood rv collected. 21:06 Didier Carrillo RN is Primary Nurse. rv 21:07 Patient has correct armband on for positive identification. Placed in gown. Bed in low rv position. Call light in reach. Side rails up X2. Provided Education on: SEPSIS. Client placed on continuous cardiac and pulse oximetry monitoring. NIBP monitoring applied. media monitor on. 21:08 No provider procedures requiring assistance completed. rv 21:08 Arm band placed on right wrist. rv 21:21 RSV Sent. wm 21:22 Flu Sent. wm 21:22 SARS-COV-2 RT PCR Sent. wm 21:41 Chest Single View XRAY In Process Unspecified. EDMS 22:50 Inserted saline lock: 22 gauge in left forearm, using aseptic technique. rv 23:24 CT Abd/Pelvis - IV Contrast Only In Process Unspecified. EDMS 08 01:49 XRAY Chest (1 view) In Process Unspecified. EDMS 03:21 Patient transferred, IV remains in place. rv Administered Medications: 01/30 21:06 Drug: Acetaminophen PO 1000 mg Route: PO; rv 21:06 Drug: NS 0.9% IV (30 ml/kg) 30 ml/kg Route: IV; Rate: bolus; Site: right forearm; rv 21:06 Drug: Ondansetron IVP 4 mg Route: IVP; Site: right forearm; rv 23:57 Follow up: Response: No adverse reaction rv 22:11 Drug: Potassium Chloride PO 40 mEq Route: PO; rv 23:57 Follow up: Response: No adverse reaction rv 22:12 Drug: Potassium Chloride IV 20 mEq Route: IV; Rate: bolus; Site: right forearm; rv 23:57 Follow up: IV Status: Completed infusion; IV Intake: 100ml rv 23:05 Drug: Cefepime IVPB 2 grams Route: IVPB; Rate: 200 ml/hr; Infused Over: 30 mins; Site: rv left forearm; 23:57 Follow up: IV Status: Completed infusion; IV Intake: 100ml rv 23:58 Drug: vancoMYCIN IVPB 15 mg/kg Route: IVPB; Site: right forearm; rv 01/31 01:56 Follow up: IV Status: Completed infusion; IV Intake: 250ml rv 01:10 Drug: fentaNYL (PF) IVP 75 mcg Route: IVP; Site: right forearm; rv 03:23 Follow up: Response: No adverse reaction jb4 01:56 Drug: metroNIDAZOLE IVPB 500 mg Volume: 100 ml; Route: IVPB; Rate: 200 ml/hr; Infused rv Over: 30 mins; Site: right forearm; 03:22 Follow up: IV Status: Completed infusion; IV Intake: 100ml jb4 Medication: 01/30 21:08 VIS not applicable for this client. rv Intake: 23:57 IV: 100ml; Total: 100ml. rv 23:57 IV: 100ml; Total: 200ml. rv 01/31 01:56 IV: 250ml; Total: 450ml. rv 03:22 IV: 100ml; Total: 550ml. jb4 Outcome: 01/30 23:34 ER care complete, transfer ordered by . sd2 01/31 03:21 Transferred by ground EMS to [facility], Transfer form completed. rv X-rays sent w/ patient. Condition: stable Instructed on the need for transfer. 03:23 Patient left the ED. jb4 Addendum: 02/02/2023 10:18 Addendum: Culture Results: Positive blood culture. Phone call Attempt #1 Called and s s spoke with Lola at [facility]. Pt is still there at their facility. FAXED blood culture report to [facility] JUANI Enriquez RN FAX# [phone]. Signatures: Dispatcher [employer] Berta Wolff RN RN kl Blanchard, Shelby, RN RN ss Bryson, James, RN RN jb4 Didier Carrillo RN RN rv Marsh, Wendy wm Jeffries, Jennifer jj6 Yusra Fernandez MD MD sd2
--- NOTE | 2023-01-30 23:36 | EDPHYS ---
Physician Documentation [facility] Name: Katie Santiago Age: 52 yrs Sex: Female : 1970 Arrival Date: 01/30/2023 Time: 20:05 Bed 3 Private MD: ED Physician Yusra Fernandez HPI: 01/30 20:38 This 52 yrs old Female presents to ER via Wheelchair with complaints of Fever, sd2 Nausea/Vomiting. 20:38 52-year-old female presents with chief complaint of fever and vomiting. Significant sd2 other and family member at bedside give report due to the patient's weakness. 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 Her last treatment was 2 weeks ago. They went to [employer] yesterday for a graduation and she did have a a lot of heat exposure today without much fluid intake and has been eating less today as well. She began vomiting on the way back and has been sleeping most of the day. She denies any significant chest pain, diarrhea or urinary symptoms. No known sick contacts. They noted a fever when they returned home from their trip. Pt is on chronic pain medications at home for her cancer. She has not taken any nausea medication today. . Historical: - Allergies: 20:22 No Known Allergies; kl - PMHx: 20:22 Hypertensive disorder; liver cancer; kl - PSHx: 20:22 None; kl - Immunization history:: Adult Immunizations not up to date. - Social history:: Smoking status: Patient denies any tobacco usage or history of. ROS: 20:38 Eyes: Negative for injury, pain, redness, and discharge, ENT: Negative for injury, sd2 pain, and discharge, Cardiovascular: Negative for chest pain, palpitations, and edema. 20:38 : Negative for dysuria, urinary frequency, hesitancy, urgency and hematuria. MS/Extremity: Negative for injury and deformity, Skin: Negative for injury, rash, and discoloration, Neuro: Negative for headache, numbness and tingling. 20:38 Constitutional: Positive for chills, fever, poor PO intake. 20:38 Respiratory: Positive for shortness of breath, Negative for cough, wheezing. 20:38 Abdomen/GI: Positive for abdominal pain, nausea, vomiting, Negative for diarrhea. Exam: 20:38 Constitutional: This is a well developed, well nourished patient who is awake, alert, sd2 and in no acute distress. Head/Face: Normocephalic, atraumatic. Eyes: EOMI, normal conjunctiva bilaterally Chest/axilla: Normal chest wall appearance and motion. Nontender with no deformity. Cardiovascular: Tachycardic rate and regular rhythm with a normal S1 and S2. No gallops, murmurs, or rubs. 2+ distal pulses. Respiratory: Lungs have equal breath sounds bilaterally, clear to auscultation and percussion. No rales, rhonchi or wheezes noted. No increased work of breathing, no retractions or nasal flaring. Abdomen/GI: Soft, non-tender, with normal bowel sounds. No guarding or rebound. No evidence of tenderness throughout. Skin: Warm, dry with normal turgor. Normal color with no rashes, no lesions, and no evidence of cellulitis. MS/ Extremity: Pulses equal, no cyanosis. Neurovascular intact. Full, normal range of motion. Ambulatory without difficulty. Psych: Awake, alert, with orientation to person, place and time. Behavior, mood, and affect are within normal limits. 21:24 ECG was reviewed by the Attending Physician. Sinus tachycardia, rate 111, prolonged QTc sd2 present Vital Signs: 20:19 BP 113 / 77; Pulse 135; Resp 20; Temp 100.8(O); Pulse Ox 96% on R/A; kl 21:05 Weight 72.65 kg; rv 22:12 Temp 101.1; rv 22:30 BP 94 / 65; Pulse 105; Resp 19; Pulse Ox 99% on R/A; jb4 22:45 BP 72 / 59 Supine; Pulse 99; Resp 19; Pulse Ox 100% on R/A; jb4 23:00 BP 82 / 60 Supine; Pulse 98; Resp 18; Pulse Ox 100% on R/A; jb4 23:15 BP 65 / 53 Supine; Pulse 92; Resp 18; Pulse Ox 100% ; jb4 23:30 BP 82 / 68; Pulse 94; Resp 18; Pulse Ox 100% on R/A; jb4 23:45 BP 76 / 56; Pulse 92; Resp 18; Pulse Ox 100% ; jb4 01/31 00:15 BP 82 / 60; Pulse 94; Resp 19; Temp 98.9; Pulse Ox 100% ; rv 00:30 BP 87 / 65; Pulse 89; Resp 18; Pulse Ox 100% on R/A; rv 01:00 BP 87 / 72; Pulse 94; Resp 18; Pulse Ox 100% on R/A; rv 02:00 BP 90 / 68; Pulse 88; Resp 18; Pulse Ox 100% ; rv 02:30 BP 103 / 79; Pulse 88; Resp 19; Pulse Ox 97% on R/A; jb4 03:00 BP 116 / 83; Pulse 97; Resp 17; Temp 98.5; Pulse Ox 100% ; jb4 [place] Coma Score: 03:22 Eye Response: spontaneous(4). Motor Response: obeys commands(6). Verbal Response: jb4 oriented(5). Total: 15. Procedures: 01:39 Central Line: the site was prepped with Betadine, in sterile fashion, a triple lumen sd2 catheter was inserted, in the left internal jugular vein, in 1 attempts. placement was verified, by CXR, by blood return, the site was dressed with Tegaderm, using sterile technique, the patient tolerated the procedure, well. MDM: 01/30 20:29 Patient medically screened. sd2 20:38 Differential diagnosis: Dehydration, electrolyte abnormality, UTI, PNA, anemia among sd2 others. Data reviewed: vital signs, nurses notes, lab test result(s), EKG, radiologic studies. I considered the following discharge prescriptions or medication management in the emergency department Medications were administered in the Emergency Department. See MAR. Historians other than the Patient: Spouse/Significant Other: provides full history. Care significantly affected by the following chronic conditions: Cancer. 01/31 01:39 ED course: Imaging consistent with diverticulitis as possible etiology of patient's sd2 sepsis. Treated with broad spectrum abx. Our facility is currently at ICU capacity so will need to transfer to [facility] as patient's oncologist is also located there. Pending callback.. 02:15 Consideration of Admission/Observation Patient was admitted/placed on observation. sd2 Management of patient was discussed with the following: [employer] Operators Supervisor: Dr. Sanders, [facility] ferry terminal supervisor. ED course: Pt accepted by [facility] ICU in the [facility] after case discussed with Dr. Sanders. Currently stable on Levophed. Pending transport. . 01/30 20:38 Order name: Blood Culture Adult (2) sd2 01/30 20:38 Order name: CBC with Diff; Complete Time: 22:02 sd2 01/30 20:38 Order name: CMP; Complete Time: 22:02 sd01/30 20:38 Order name: Lactate w/ 2H reflex if indic.; Complete Time: 21:41 sd01/30 20:38 Order name: Protime (+inr); Complete Time: 21:17 sd01/30 20:38 Order name: Ptt, Activated; Complete Time: 21:17 01/30 20:38 Order name: Procalcitonin; Complete Time: 23:36 sd01/30 20:38 Order name: SARS-COV-2 RT PCR; Complete Time: 23:36 01/30 20:38 Order name: Flu; Complete Time: 22:02 01/30 20:38 Order name: RSV; Complete Time: 22:02 01/30 21:31 Order name: Manual Differential; Complete Time: 22:02 EDMS 01/31 02:09 Order name: Lactate Sepsis 2 HR Follow-up EDWI 01/30 20:38 Order name: Chest Single View XRAY; Complete Time: 22:05 01/30 22:31 Order name: CT Abd/Pelvis - IV Contrast Only 01/31 01:39 Order name: XRAY Chest (1 view) 01/30 20:38 Order name: EKG; Complete Time: 20:39 01/30 20:38 Order name: Accucheck; Complete Time: 21:06 01/30 20:38 Order name: Cardiac monitoring; Complete Time: 21:06 01/30 20:38 Order name: EKG - Nurse/Tech; Complete Time: 21:06 01/30 20:38 Order name: IV Saline Lock - Large Bore; Complete Time: 21:06 01/30 20:38 Order name: Labs collected and sent; Complete Time: 21:06 01/30 20:38 Order name: O2 Per Protocol; Complete Time: 21:06 01/30 20:38 Order name: O2 Sat Monitoring; Complete Time: 21:06 01/30 20:38 Order name: Vital Signs; Complete Time: 21:06 sd2 Administered Medications: 01/30 21:06 Drug: Acetaminophen PO 1000 mg Route: PO; rv 21:06 Drug: NS 0.9% IV (30 ml/kg) 30 ml/kg Route: IV; Rate: bolus; Site: right forearm; rv 21:06 Drug: Ondansetron IVP 4 mg Route: IVP; Site: right forearm; rv 23:57 Follow up: Response: No adverse reaction rv 22:11 Drug: Potassium Chloride PO 40 mEq Route: PO; rv 23:57 Follow up: Response: No adverse reaction rv 22:12 Drug: Potassium Chloride IV 20 mEq Route: IV; Rate: bolus; Site: right forearm; rv 23:57 Follow up: IV Status: Completed infusion; IV Intake: 100ml rv 23:05 Drug: Cefepime IVPB 2 grams Route: IVPB; Rate: 200 ml/hr; Infused Over: 30 mins; Site: rv left forearm; 23:57 Follow up: IV Status: Completed infusion; IV Intake: 100ml rv 23:58 Drug: vancoMYCIN IVPB 15 mg/kg Route: IVPB; Site: right forearm; rv 01/31 01:56 Follow up: IV Status: Completed infusion; IV Intake: 250ml rv 01:10 Drug: fentaNYL (PF) IVP 75 mcg Route: IVP; Site: right forearm; rv 03:23 Follow up: Response: No adverse reaction jb4 01:56 Drug: metroNIDAZOLE IVPB 500 mg Volume: 100 ml; Route: IVPB; Rate: 200 ml/hr; Infused rv Over: 30 mins; Site: right forearm; 03:22 Follow up: IV Status: Completed infusion; IV Intake: 100ml jb4 Disposition Summary: 01/30/23 23:34 Transfer Ordered Transfer Location: [facility] sd2 Reason: Higher level of care sd2 Condition: Critical sd2 Problem: new sd2 Symptoms: have improved sd2 Accepting Physician: Dr. Sanders(01/31/23 03:23) jb4 Diagnosis - Severe sepsis with septic shock sd2 - Acute Diverticulitis sd2 - Hypokalemia sd2 Forms: - Medication Reconciliation Form sd2 - SBAR form sd2 Critical care time excluding procedures: :53 Critical care time: Bedside Care: 45 minutes, Consultation: 20 minutes, Family sd2 Intervention: 10 minutes. Total time: 75 minutes Signatures: Dispatcher [employer] EDBerta Watkins RN Donato Erickson RN RN jb4 Didier Carrillo RN Yusra Reddy MD MD sd2 Corrections: (The following items were deleted from the chart) 01:52 08 23:34 [facility] Physician sd2 sd2 01/31 01:53 01:52 . [facility] Physician sd2 sd2 02:16 01:53 . [facility] Physician sd2 sd2 03:23 02:16 Dr. Sanders sd2 jb4
[2023-01-31] MEDS ORDERED: NOREPINEPHRINE 4 MG/4 ML VIAL ONE (00:34)
[2023-01-31] MEDS ORDERED: NOREPINEPHRINE BITARTRATE/D5W 4 MG/250 ML BAG IV ONE (00:37)
[2023-01-31] MEDS ORDERED: FENTANYL CITR 100 MCG/2 ML ONE (01:16)
[2023-01-31] MEDS ORDERED: METRONIDAZOLE 500mg IVPB 500 MG/100 ML BAG IV ONE (02:04)
[2023-01-31 03:50] VITALS: BP 116/83; TEMP 98.5; O2SAT 100
--- NOTE | 2023-01-31 15:28 | EKG ---
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
--- NOTE | 2023-02-01 12:52 | RAD REPORT ---
EXAM DESCRIPTION: CT - Abdomen Pelvis W Contrast - 01/31/2023 7:05 am CLINICAL HISTORY: Sepsis COMPARISON: 08/04/2022 TECHNIQUE: CT of the abdomen and pelvis performed following the administration of IV contrast. No or al contrast. This exam was performed according to our departmental dose-optimization program, which i ncludes automated exposure control, adjustment of the mA and/or kV according to patient size and/or u se of iterative reconstruction technique. FINDINGS: Lung Bases: Mild linear opacities likely representing atelectasis or scarring. No basilar consolidation. Abdomen: Liver: Large central hepatic mass measures 6.7 x 4.9 x 5.5 cm, previously approximately 6.1 x 5.8 x 6 .4 cm. There is a new stent placed within the previously demonstrated biliary stent on the right, tra versing the above-described mass and noted up to the level of the duodenum. There is a new lobulated hypodensity anteriorly on the right measuring approximately 3.3 x 2.8 cm. This could be cystic.. Ther e is diffuse background heterogeneous density with areas of altered perfusion versus fatty infiltrati on and sparing. Gallbladder: No calcified gallstones. Spleen, Pancreas, and Adrenal Glands: Spleen is mildly enlarged. The pancreas and adrenal glands ar e unremarkable. Kidneys: No suspicious mass. No urinary tract calculi. No hydronephrosis. Vasculature: The aorta and IVC have normal caliber and position. The portal vein is patent. The pro ximal visceral and renal arteries are patent. Stomach: Tiny hiatal hernia. Other: No free intraperitoneal air. No free fluid or lymphadenopathy. Pelvis: Bladder: Underdistended. Bowel: No dilated loops of large or small bowel. Colon diverticulosis. Trace stranding adjacent t o the distal descending colon which may reflect mild acute diverticulitis. Appendix: Normal appendix. Pelvis: No suspicious mass. Bones: No destructive bone lesions identified. IMPRESSION: 1. Possible mild acute diverticulitis of the distal descending colon. 2. Central hepatic mass is grossly similar in size compared to prior with slight differences in measu rement possibly due to variations in slice orientation. 3. Second biliary stent is now in place. There is a new hypodense structure anteriorly in the right h epatic lobe measuring up to 3.3 cm. This could be cystic. Cannot exclude abscess given reported histo ry of sepsis. MRI could be helpful in further characterization. Electronically signed by: Tamiko Poe MD 01/31/2023 12:22 AM CDT Due to temporary technical issues with the PACS/Fluency reporting system, reports are being signed by the in house radiologist without review as a courtesy to ensure prompt reporting. The interpreting r adiologist is fully responsible for the content of the report.
--- NOTE | 2023-02-01 12:53 | RAD REPORT ---
EXAM DESCRIPTION: RAD - Chest Single View - 01/31/2023 1:47 am CLINICAL HISTORY: Central line placement TECHNIQUE: Frontal view of the chest. COMPARISON: No relevant prior studies available. FINDINGS: Lungs: Unremarkable. No consolidation. Pleural space: Unremarkable. No pneumothorax. Heart: The cardiac silhouette is mildly enlarged. Mediastinum: Unremarkable. Bones/joints: Unremarkable. Vasculature: Thoracic aortic atherosclerosis. Tubes, lines and devices: Left internal jugular central venous catheter tip projects over the super ior vena cava brachiocephalic junction. Right chest wall Mediport catheter. Upper abdomen: Elevation of the right hemidiaphragm. IMPRESSION: Left internal jugular central venous catheter tip projects over the superior vena cava b rachiocephalic junction. Electronically signed by: Kaycee Magdaleno MD 01/31/2023 2:19 AM CDT Due to temporary technical issues with the PACS/Fluency reporting system, reports are being signed by the in house radiologist without review as a courtesy to ensure prompt reporting. The interpreting r adiologist is fully responsible for the content of the report.
== END 2023-01-31 03:23 | disposition short-term general hospital (02) ==
LOC: ER 20:05
PROC: 05HN33Z Insertion of Infusion Device into Left Internal Jugular Vein, Percutaneous Approach (ICD-10-PCS; principal; 2023-01-31)
DX: A41.9 Sepsis, unspecified organism (principal); K57.32 Diverticulitis of large intestine without perforation or abscess without bleeding; R65.21 Severe sepsis with septic shock; E87.6 Hypokalemia; I10 Essential (primary) hypertension; Z20.822 Contact with and (suspected) exposure to COVID-19; Z85.3 Personal history of malignant neoplasm of breast
CPT/HCPCS: 93005; 87040 ×2; 85025; 36415; 87205 ×4; 85610; 83605 ×2; 85730; 87077 ×2; 87186 ×2; 80053; 84145; 87635; 87807; 87804 ×2; 74177; 71045 ×2; 99285; 36556; Q9967; J3480; J3010; J0692; J2405; J7050; J7030

== ENCOUNTER 2023-05-12 21:29 | Emergency (ER) | payer OTHER ==
--- OUTSIDE RECORDS SUMMARY | 2023-05-12 21:31 | XMS REPORT | Clinical Summary ---
:1970 Author Organization [facility] MD [facility] Address [address] [place] [address] Care Team Providers Name Role Phone Melanie Nuñez Unavailable Allergies Not on File Medications Not on file Active Problems Not on file Encounters Date Type Department Care Team Description 04/09/2023 9:55 PM Ancillary Procedure [facility] [address] [place] [address] 04/09/2023 9:50 PM Ancillary Procedure [facility] [address] [place] [address] 03/29/2023 9:55 PM Ancillary Procedure [facility] [address] [place] [address] 03/29/2023 9:50 PM Ancillary Procedure [facility] [address] [place] [address] 03/29/2023 9:45 PM Ancillary Procedure [facility] [address] [place] [address] 03/29/2023 9:40 PM Ancillary Procedure [facility] [address] [place] [address] 03/29/2023 9:35 PM Ancillary Procedure [facility] [address] [place] [address] 03/29/2023 9:30 PM Ancillary Procedure [facility] [address] [place] [address] 03/29/2023 9:25 PM Ancillary Procedure [facility] [address] [place] [address] 03/29/2023 9:20 PM Ancillary Procedure [facility] [address] [place] [address] 03/29/2023 9:15 PM Ancillary Procedure [facility] [address] [place] [address] 03/29/2023 9:10 PM Ancillary Procedure [facility] [address] [place] [address] 03/29/2023 9:05 PM Ancillary Procedure [facility] [address] [place] [address] 03/29/2023 9:00 PM Ancillary Procedure [facility] [address] [place] [address] 03/29/2023 8:55 PM Ancillary Procedure [facility] [address] [place] [address] 03/29/2023 8:50 PM Ancillary Procedure [facility] [address] [place] [address] 03/29/2023 8:45 PM Ancillary Procedure [facility] [address] [place] [address] 03/29/2023 8:40 PM Ancillary Procedure [facility] [address] [place] [address] 03/29/2023 8:35 PM Ancillary Procedure [facility] [address] [place] [address] 03/29/2023 8:30 PM Ancillary Procedure [facility] [address] [place] [address] 03/29/2023 8:25 PM Ancillary Procedure [facility] [address] [place] [address] 03/29/2023 8:20 PM Ancillary Procedure [facility] [address] [place] [address] 03/29/2023 8:15 PM Ancillary Procedure [facility] [address] [place] [address] 03/29/2023 8:10 PM Ancillary Procedure [facility] [address] [place] [address] 03/29/2023 8:05 PM Ancillary Procedure [facility] [address] [place] [address] 03/29/2023 8:00 PM Ancillary Procedure [facility] [address] after 05/12/2022 Social History Tobacco Use Types Packs/Day Years Used Date Smoking Tobacco: Never Assessed Sex and Gender Information Value Date Recorded Sex Assigned at Not on file Gender Identity Not on file Sexual Orientation Not on file Last Filed Vital Signs Not on file Plan of Treatment Not on file Procedures Procedure Name Priority Date/Time Associated Diagnosis Comme nts [facility]SI BONE SCAN Routine 03/29/2023 7:39 AM Cancer Results for this CDT procedure are i n the results section. OSI CT ABDOMEN AND Routine 03/03/2023 9:48 PM Cancer Res ults for this PELVIS CDT procedure are i n the results section. OSI CHEST Routine 02/02/2023 7:36 AM Cancer Results f or this CDT procedure are i n the results section. OSI CT ABDOMEN AND Routine 02/02/2023 7:36 AM Cancer Re sults for this PELVIS CDT procedure are i n the results section. OSI CHEST Routine 02/01/2023 7:36 AM Cancer Results f or this CDT procedure are i n the results section. OSI US ABDOMINAL Routine 01/31/2023 7:37 AM Cancer Resul ts for this COMPLETE CDT procedure are i n the results section. OSI CT CHEST Routine 12/23/2022 7:37 AM Cancer Results f or this CDT procedure are i n the results section. OSI MRI ABDOMEN Routine 12/23/2022 7:37 AM Cancer Result s for this CDT procedure are i n the results section. OSI CHEST Routine 10/13/2022 7:38 AM Cancer Results f or this CDT procedure are i n the results section. OSI CT CHEST Routine 10/13/2022 7:37 AM Cancer Results f or this CDT procedure are i n the results section. OSI MRI ABDOMEN Routine 09/16/2022 7:38 AM Cancer Result s for this CDT procedure are i n the results section. OSI CT CHEST Routine 09/16/2022 7:38 AM Cancer Results f or this CDT procedure are i n the results section. OSI CT CHEST Routine 05/28/2022 7:38 AM Cancer Results f or this TIRE BUSTER procedure are i n the results section. OSI MRI ABDOMEN Routine 05/28/2022 7:38 AM Cancer Result s for this TIRE BUSTER procedure are i n the results section. after 05/12/2022 Results OSI Bone Scan (03/29/2023 7:39 AM CDT) Specimen (Source) Anatomical Location Collection Method / Collectio n Time Received Time / Laterality Volume Narrative Systemgenerated, Documentation - 023 7:39 AM CDT Study acquired at another institution. For comparison only. No [facility] originated interpretation requested or a vailable. Melanie Nuñez IMG OUTSIDE IMAGE ORDERABLES OSI CT Abdomen and Pelvis (03/03/2023 9:48 PM CDT)Only the most recent of2 resultswithin the time period is included. Specimen (Source) Anatomical Location Collection Method / Collectio n Time Received Time / Laterality Volume Narrative Systemgenerated, Documentation - 023 9:48 PM CDT Study acquired at another institution. For comparison only. No [facility] originated interpretation requested or a vailable. Melanie Nuñez IMG OUTSIDE IMAGE ORDERABLES OSI Chest (02/02/2023 7:36 AM CDT)Only the most recent of3 resultswithin the time period is included. Specimen (Source) Anatomical Location Collection Method / Collectio n Time Received Time / Laterality Volume Narrative Systemgenerated, Documentation - 023 7:36 AM CDT Study acquired at another institution. For comparison only. No [facility] originated interpretation requested or a vailable. Melanie Nuñez IMG OUTSIDE IMAGE ORDERABLES OSI US Abdominal Complete (01/31/2023 7:37 AM CDT) Specimen (Source) Anatomical Location Collection Method / Collectio n Time Received Time / Laterality Volume Narrative Systemgenerated, Documentation - 023 7:37 AM CDT Study acquired at another institution. For comparison only. No [facility] originated interpretation requested or a vailable. Melanie Nuñez IMG OUTSIDE IMAGE ORDERABLES OSI MRI ABDOMEN (12/23/2022 7:37 AM CDT)Only the most recent of3 resultswithin the time period is included. Specimen (Source) Anatomical Location Collection Method / Collectio n Time Received Time / Laterality Volume Narrative Systemgenerated, Documentation - 023 7:37 AM CDT Study acquired at another institution. For comparison only. No [facility] originated interpretation requested or a vailable. Melanie Nuñez IMG OUTSIDE IMAGE ORDERABLES OSI CT Chest (12/23/2022 7:37 AM CDT)Only the most recent of4 resultswithin the time period is included. Specimen (Source) Anatomical Location Collection Method / Collectio n Time Received Time / Laterality Volume Narrative Systemgenerated, Documentation - 023 7:37 AM CDT Study acquired at another institution. For comparison only. No [facility] originated interpretation requested or a vailable. Melanie Nuñez IMG OUTSIDE IMAGE ORDERABLES after 05/12/2022 Insurance Payer Benefit Plan / Subscriber ID Effective Dates Phone Addre ss Type Group [employer] MANAGED [employer] O [id number] 2018-Esteban [address] X [id number] [place] [address] Care Teams Broadcast Checker Relationship Specialty Start Date End Date Melanie Nuñez PCP - External Referring Family Practice 05/30/21 [address] [place] [address]
--- OUTSIDE RECORDS SUMMARY | 2023-05-12 22:01 | XMS REPORT | Continuity of Care Document ---
:1970 Author Organization [facility] t Address [address] [place] [address] Care Team Providers Name Role Phone No, Pcp [facility] Primary Care Physician Unavailable DESTINEY YODER Attending Clinician Unavailable MARY ROBERST Attending Clinician Unavailable BRITTNY HALL Attending Clinician Unavailable DILLAN ESPINOZA Attending Clinician Unavailable AGNES NORMAN Attending Clinician Unavailable CASSANDRA HUGHES Attending Clinician Unavailable HERO COLBERT Attending Clinician Unavailable DENVER SANDERS Attending Clinician Unavailable FELIPA GARCIA Attending Clinician Unavailable SYSTEM, PROVIDER NOT IN Attending Clinician Unavailable KYLER ABREU Attending Clinician Unavailable LIANNE BENITO Attending Clinician Unavailable FERNANDA YODER Attending Clinician Unavailable Davin GALINDO, Gayle Barrow Attending Clinician [phone] Rafael GALINDO, Brittny Attending Clinician Cherrie GALINDO, Trevor Attending Clinician Paresh GALINDO, Destiney Attending Clinician Fernanda Yoder DO Attending Clinician Tameka GALINDO, Dasia Attending Clinician TRVEOR JIN Attending Clinician Unavailable Brady GALINDO, Kyler Attending Clinician GAYLE JIN Attending Clinician Unavailable Lianne Benito Attending Clinician Mehul Morrison MD Attending Clinician JOE GHOSH Attending Clinician Unavailable Augie GALINDO, Joe Attending Clinician Virtual, Surgeon Attending Clinician Unavailable ANABEL LY Attending Clinician Unavailable Anabel Chow Attending Clinician Peg Grijalva MA Attending Clinician Unavailable Nayeli Osborne RN Attending Clinician Unavailable SHAWANDA GRIFFIN Attending Clinician Unavailable Sayra GALINDO, Hero Rodriguez Attending Clinician Olga GALINDO, Dillan Monte Attending Clinician [phone] Gaby GALINDO, Shawanda Attending Clinician Leonard GALINDO, Dwayne Edmonds Attending Clinician ROSA WHITING Attending Clinician Unavailable Johanne GALINDO, Rosa Abel Attending Clinician [phone] Isiah GALINDO, Rossy Armstrong Attending Clinician Cassandra Hughes Attending Clinician Refugio GALVAN, Jordin Attending Clinician JORDIN LEWIS Attending Clinician Unavailable Jesus Abebe RN Attending Clinician Unavailable David Brunson Attending Clinician Unavailable Ginny Roberts PharmD Attending Clinician Unavailable Cecy GALINDO, Randy Porter Attending Clinician CHAVA AHN Attending Clinician Unavailable Anabelle GALINDO, Chava Pradhan Attending Clinician Shasha GUARDADO, Ozzie Woo Attending Clinician Tommy GALINDO, Denver Arriola Attending Clinician [phone] Nando GALINDO, Miguelito Stanton Attending Clinician [phone] JEOVANY HILL Attending Clinician Unavailable Systems Consultant, [facility] Staff Attending Clinician Unavailable Abner Painter Attending Clinician [phone] Kimberlee GALINDO, Basilia Peralta Attending Clinician Rianna GALINDO, Steven Edmonds Attending Clinician Barbara Yao MD Attending Clinician Jose CASTILLO, Kimmie Padilla Attending Clinician CARINE RUTLEDGE ABA Attending Clinician Unavailable Eugene GALINDO, Carine Miguel Attending Clinician [phone] Priscilla Palacios MD Attending Clinician Griselda Mcclelland RN Attending Clinician Unavailable Ebony Miranda Attending Clinician Unavailable Edson Valle MD Attending Clinician Alicia Rodriguez RN Attending Clinician Unavailable Drea GALINDO, Nydia Attending Clinician Alfred Hernandez MD Attending Clinician LUPILLO GODDARD Attending Clinician Unavailable Reynaldo GALINDO, Jenn Moreno Attending Clinician [phone] Akila GALINDO, Anna Hicks Attending Clinician Master GALINDO, Lisa Attending Clinician Estrada MD, Lupillo Attending Clinician Harrison GALINDO, Halie Attending Clinician EDSON VALLE Attending Clinician Unavailable Hermann GALINDO, Katya Arreguin Attending Clinician [phone] Luiz GALINDO, Katie Limon Attending Clinician Olga GALINDO, Jessica Valentine Attending Clinician [phone] Jerrell GALVAN, Yesenia Chan Attending Clinician [phone] Robinson GALINDO, Vaibhav Prescott Attending Clinician Faith ARENAS, Cherry Starr Attending Clinician [phone] Azam GALINDO, Sarkis Burks Attending Clinician BRITTNY HALL Admitting Clinician Unavailable DILLAN ESPINOZA Admitting Clinician Unavailable CASSANDRA HUGHES Admitting Clinician Unavailable DENVER SANDERS Admitting Clinician Unavailable JOE GHOSH Admitting Clinician Unavailable MIGUELITO WHITAKER Admitting Clinician Unavailable NYDIA IBRAHIM Admitting Clinician Unavailable ANNA WILBURN Admitting Clinician Unavailable KATIE DEE Admitting Clinician Unavailable Payers Payer Name Policy Type Policy Number Effective Date Expiration Date Stefany TA O POS [id number] 2018 00:00:00 QPOS Problems Condition Condition Condition Status Onset Resolution Last Treating Co mments Source Name Details Category Date Date Treatment Clinician Date Fever in Fever in Disease [facility] GIB GIB Disease Active 2022-[address] [facility] (gastroint (gastroint 06-29 [facility] estinal estinal 00:00: Medical bleeding) bleeding) 00 Cent er Liver Liver Disease Active 2022-[address] [facility] abscess abscess 06-29 [facility] Right Right Disease Active 2022-[address] [facility] upper upper 0-04 [facility] quadrant quadrant 00:00: Medica l abdominal abdominal 00 Cent er pain pain Hypokalemi Hypokalemi Disease Active 2023-[address] a a 9-20 [facility] Septic Septic Disease Recurre [facility] shock shock nce 8-13 [facility] Sepsis Sepsis Disease Recurre [facility] n[facility] 8-13 [facility] Biliary Biliary Disease Active [facility] stricture stricture 2-17 [facility] 00[facility] Medical 00 Center Chest pain Chest pain Disease Active [facility] 2[facility]15 [facility] Liver Liver Disease Active Last [facility] lesion lesion 1-12 [facility] 00[facility]: t & Plan: [address] g of this note might be different [...] Recurre Last [facility] arcinoma arcinoma nce Assessmen [facility] t & Plan: [facility] g of this note might be different from the original. Liver lesion has decreased in size, continue chemother apy regimen as per Oncology. Allergies, Adverse Reactions, Alerts Allergy Allergy Status Severity Reaction(s) Onset Inactive Treating Comm ents Source Name Type Date Date Clinician SEASONAL Allergy Active Other [facility] ALLERGIE 1-17 S 00:00: 00 Seasonal Allergy Active Other (See Sneezing [facility] Allergie to Comments) -17 [facility] sub[facility]anc [facility] Medical e 00 Center NO KNOWN Allergy Active [facility] ALLERGANI [facility] Social History Social Habit Start Date Stop Date Quantity Comments Source History of tobacco Passive smoker [facility] Alcohol intake 2023-04-29 2023-04-[address] [facility] 00:00:00 00:00:00 non-drinker of Medical Ce nter alcohol (finding) Exposure to 2023-04-10 2023-04-[address] [facility] SARS-CoV-2 (event) 00:00:00 10:22:00 [facility] Tobacco use and 2023-04-20 2023-04-20 Smokeless tobacco [facility] exposure 00:00:00 00:00:00 non-user Medical Center History of Social 2023-03-25 2023-03-[address] [facility] function 00:00:00 00:00:00 Medical Center Tobacco Comment 2023-03-04 2023-03-[address] [facility] 00:00:00 00:00:00 X15 years ago. Medical Ce nter Alcohol Comment 2023-03-04 2023-03-[address] [facility] 00:00:00 00:00:00 Drinking (wine) Medical C enter Sex [birth year] At [birth year] [facility]00 [place] [facility] Smoking Status Start Date Stop Date Source Never smoked tobacco [facility] Medications Ordered Filled Start Stop Current Ordering Indication Dosage Frequency Signature Comments Components Source Medication Medication Date Date Medication? Clinician (SIG) Name Name loratadine 2022-06 Yes 10mg QD Take 1 [facility] (CLAR[facility]IN[facility] 1-22 tablet (10 [facility] 10 mg 15:51: mg total) Medical tablet 21 by mouth Center daily As needed. loratadine 2022-06 Yes 10mg QD Take 1 [facility] (CLARITIN) 1-22 tablet (10 [facility] 10 mg 15:51: mg total) Medical tablet 21 by mouth Center daily As needed. ertapenem 2022-06 Yes 1g Q24H Inject [address] (INVanz) 1 1-22 intravenou [facility] es g in NS 100 00:00: sly daily. Medical mL (V2B) 00 Center IVPB mICAFUNGin 2022-06 Yes 100mg Q24H Inject [address] [facility] 100 mg in 1-22 mg [facility] NS 0.9% 100 00:00: intravenou Medical mL (V2B) 00 sly daily. Cente r IVPB miscellaneo 2023-1 Yes Lab test, [facility] 07-12 weekly [facility] supply Misc 00:00: levels Medi farrukh 00 starting Center 05/15. ertapenem 2022-06 Yes 1g Q24H Inject [address] (INVanz) 1 07-12 intravenou [facility]ielle es g in NS 100 00:00: sly daily. Medical mL (V2B) 00 Center IVPB mICAFUNGin 2022-06 Yes 100mg Q24H Inject [address] [facility] 100 mg in - mg [facility] NS 0.9% 100 00:00: intravenou Medical mL (V2B) 00 sly daily. Cente r IVPB miscellaneo 2022-06 Yes Lab test, [facility] 07-12 weekly [facility] supply Misc 00:00: levels Medi farrukh 00 starting Center 05/15. oxyCODONE 2022-06- Yes 10mg Take 1 [facility] (OxyCONTIN) 07-12-21 tablet (10 [facility] 10 MG 12 hr 00:00: 23:59 mg total) Medical tablet 00 :00 by mouth Center every 8 (eight) hours. Max Daily Amount: 30 mg HYDROmorpho 2022-06- Yes 2mg Take [address] [facility] ne 07-12-21 tablet (2 [facility] (DILAUDID) 00:00: 23:59 mg total) M edical 2 MG tablet 00 :00 by mouth Cent er every 4 (four) hours as needed for Pain. Max Daily Amount: 12 mg oxyCODONE 2022-06- Yes 10mg Take 1 [facility] (OxyCONTIN) 07-12-21 tablet (10 [facility] 10 MG 12 hr 00:00: 23:59 mg total) Medical tablet 00 :00 by mouth Center every 8 (eight) hours. Max Daily Amount: 30 mg HYDROmorpho 2022-06- Yes 2mg Take [address] [facility] ne 07-12-21 tablet (2 [facility] (DILAUDID) 00:00: 23:59 mg total) M edical 2 MG tablet 00 :00 by mouth Cent er every 4 (four) hours as needed for Pain. Max Daily Amount: 12 mg acetaminoph 2022-06- Yes 650mg Take [address] [facility] en 07-12 11-16 tablets [facility] (TYLENOL) 00:00: 23:59 (650 mg Medi farrukh 325 MG 00 :00 total) by Center tablet mouth every 6 (six) hours as needed for up to 360 days. acetaminoph 2022-06- Yes 650mg Take [address] en 07-12-16 tablets [facility] (TYLENOL) 00:00: 23:59 (650 mg Medi farrukh 325 MG 00 :00 total) by Center tablet mouth every 6 (six) hours as needed for up to 360 days. lidocaine 2022-06- Yes 1{patch Q24H Place [address] (LIDODERM) 07-12 } patch onto [facility] 4 % patch 00:00: 23:59 the skin Med ical 00 :00 daily for Center 30 doses. lidocaine 2022-06- Yes 1{patch Q24H Place [address] (LIDODERM) 07-12 } patch onto [facility] 4 % patch 00:00: 23:59 the skin Med ical 00 :00 daily for Center 30 doses. ondansetron 2022-06 Yes 4mg Take [address] [facility] (ZOFRAN-ODT 1-03 tablet (4 [facility] ) 4 MG 00:00: mg total) Medica l disintegrat 00 by mouth Cent er ing tablet every 8 (eight) hours as needed. ondansetron 2022-06 Yes 4mg Take [address] [facility] (ZOFRAN-ODT 1-03 tablet (4 [facility] es ) 4 MG 00:00: mg total) Medica l disintegrat 00 by mouth Cent er ing tablet every 8 (eight) hours as needed. HYDROcodone 2022-06 No Cancer 1{tbl} Take [address] [facility] -acetaminop 06-23 associated tablet by [facility] hen (NORCO 00:00: 00:00 pain mouth Medic al 10-325) 00 :00 every 4 Center 10-325 mg (four) per tablet hours as needed. Max Daily Amount: 6 tablets furosemide 2022-06- No 20mg QD Take [address] [facility] (Lasix) 20 06-2322 tablet (20 [facility] MG tablet 00:00: 00:00 mg total) Me dical 00 :00 by mouth Center daily. HYDROcodone 2022-06- No Cancer 1{tbl} Take [address] [facility] -acetaminop 06-23 associated tablet by [facility] (NORCO 00:00: 00:00 pain mouth Medic al 10-325) 00 :00 every 4 Center 10-325 mg (four) per tablet hours as needed. Max Daily Amount: 6 tablets furosemide 2022-06- No 20mg QD Take [address] [facility] (Lasix) 20 06-23-22 tablet (20 [facility] MG tablet 00:00: 00:00 mg total) Me dical 00 :00 by mouth Center daily. lisinopriL 2022-06 No 10mg QD Take [address] [facility] (PRINIVIL,Z 0-29 11-22 tablet (10 [facility] ESTRIL) 10 00:00: 00:00 mg total) M edical MG tablet 00 :00 by mouth Center daily. lisinopriL 2022-06- No 10mg QD Take [address] [facility] (PRINIVIL,Z 0-29 11-22 tablet (10 [facility] ESTRIL) 10 00:00: 00:00 mg total) M edical MG tablet 00 :00 by mouth Center daily. fluconazole 2022-06 No 200mg QD Take [address] (DIFLUCAN) 0-18 - tablet [facility] 200 MG 00:00: 00:00 (200 mg Medical tablet 00 :00 total) by Center mouth daily for 28 days. lidocaine 2022-06- No 1{patch Q24H Place [address] (LIDODERM) 005-12 } patch onto [facility] 4 % patch 00:00: 00:00 the skin Med ical 00 :00 daily for Center 30 doses. polyethylen 2022-06 No 17g QD Take [address] [facility] e glycol 0-18 -22 by mouth [facility] (GLYCOLAX) 00:00: 00:00 daily for M edical 17 gram 00 :00 30 days. Center packet fluconazole 2022-06 No 200mg QD Take [address] (DIFLUCAN) 0-18 -22 tablet [facility] 200 MG 00:00: 00:00 (200 mg Medical tablet 00 :00 total) by Center mouth daily for 28 days. lidocaine 2022-06- No 1{patch Q24H Place [address] (LIDODERM) 0-18 11-22 } patch onto [facility] 4 % patch 00:00: 00:00 the skin Med ical 00 :00 daily for Center 30 doses. polyethylen 2022-06 No 17g QD Take [address] [facility] e glycol 0-18 11-22 by mouth [facility] (GLYCOLAX) 00:00: 00:00 daily for M edical 17 gram 00 :00 30 days. Center packet ibuprofen 2022-06 No 600mg Take [address] [facility] (ADVIL,MOTR 0-17 10-17 tablet [facility] IN) 600 MG 14:49: 00:00 (600 mg Med ical tablet 11 :00 total) by Center mouth every 6 (six) hours as needed for Pain. ibuprofen 2022-06 No 600mg Take [address] [facility] (ADVIL,MOTR 0-17 10-17 tablet [facility] IN) 600 MG 14:49: 00:00 (600 mg Med ical tablet 11 :00 total) by Center mouth every 6 (six) hours as needed for Pain. lisinopriL 2022-06 No 20mg QD Take [address] [facility] (PRINIVIL,Z 0-17 10-17 tablet (20 [facility] ESTRIL) 20 14:49: 00:00 mg total) M edical MG tablet 08 :00 by mouth Center daily. lisinopriL 2022-06 No 20mg QD Take [address] [facility] (PRINIVIL,Z 0-17 10-17 tablet (20 [facility] ESTRIL) 20 14:49: 00:00 mg total) M edical MG tablet 08 :00 by mouth Center daily. senna-docus 2022-06- Yes 2{tbl} QD Take [address] ate 0-17 10-16 tablets by [facility] (SENOKOT S) 00:00: 23:59 mouth Medi farrukh 8.6-50 mg 00 :00 nightly. Center per tablet senna-docus 2022-06- Yes 2{tbl} QD Take [address] ate 0-17 10-16 tablets by [facility] (SENOKOT S) 00:00: 23:59 mouth Medi farrukh 8.6-50 mg 00 :00 nightly. Center per tablet ibuprofen 2022-06- No 600mg Take [address] [facility] (ADVIL,MOTR 0-17 11-22 tablet [facility] IN) 600 MG 00:00: 00:00 (600 mg Med ical tablet 00 :00 total) by Center mouth every 6 (six) hours as needed for Pain. levoFLOXaci 2022-06- No 500mg QD Take [address] n 0-17 11-22 tablet [facility] (LEVAQUIN) 00:00: 00:00 (500 mg Med ical 500 MG 00 :00 total) by Center tablet mouth daily for 28 days. amoxicillin 2022-06- No 1{tbl} Q.5D Take [address] -clavulanat 0-17 11-22 tablet by [facility] e 00:00: 00:00 mouth 2 Medical (AUGMENTIN) 00 :00 (two) Center 875-125 mg times per tablet daily for 28 days. ibuprofen 2022-06- No 600mg Take [address] [facility] (ADVIL,MOTR 0-17 11-22 tablet [facility] IN) 600 MG 00:00: 00:00 (600 mg Med ical tablet 00 :00 total) by Center mouth every 6 (six) hours as needed for Pain. levoFLOXaci 2022-06- No 500mg QD Take [address] [facility] n 0-17 11-22 tablet [facility] (LEVAQUIN) 00:00: 00:00 (500 mg Med ical 500 MG 00 :00 total) by Center tablet mouth daily for 28 days. amoxicillin 2022-06- No 1{tbl} Q.5D Take [address] -clavulanat 0-17 11-22 tablet by [facility] e 00:00: 00:00 mouth 2 Medical (AUGMENTIN) 00 :00 (two) Center 875-125 mg times per tablet daily for 28 days. cyclobenzap 2022-06- No 5mg Take [address] [facility] rine 0-17 10-27 tablet (5 [facility] (FLEXERIL) 00:00: 23:59 mg total) M edical 5 MG tablet 00 :00 by mouth 3 Ce nter (three) times daily as needed for Muscle spasms for up to 10 days. HYDROcodone 2022-06- No 1{tbl} Take [address] -acetaminop 0-17 10-27 tablet by Louise zaman (NORCO 00:00: 23:59 mouth Medic al 10-325) 00 :00 every 4 Center 10-325 mg (four) per tablet hours as needed for up to 10 days. Max Daily Amount: 6 tablets cyclobenzap 2022-06- No 5mg Take [address] [facility] rine 0-17 10-27 tablet (5 [facility] (FLEXERIL) 00:00: 23:59 mg total) M edical 5 MG tablet 00 :00 by mouth 3 Ce nter (three) times daily as needed for Muscle spasms for up to 10 days. HYDROcodone 2022-06- No 1{tbl} Take [address] -acetaminop 0-17 10-27 tablet by Louise zaman (NORCO 00:00: 23:59 mouth Medic al 10-325) 00 :00 every 4 Center 10-325 mg (four) per tablet hours as needed for up to 10 days. Max Daily Amount: 6 tablets furosemide 2022-06- No 20mg QD Take [address] [facility] (LASIX) 20 0-17 10-24 tablet (20 [facility] MG tablet 00:00: 23:59 mg total) Me dical 00 :00 by mouth Center daily for 7 days. furosemide 2022-06- No 20mg QD Take [address] [facility] (LASIX) 20 0-17 10-24 tablet (20 [facility] MG tablet 00:00: 23:59 mg total) Me dical 00 :00 by mouth Center daily for 7 days. morphine 2022- No Cancer 15mg Take [address] [facility] (MS CONTIN) 9-26 10-26 associated tablet (15 [facility] 15 MG 12 hr 00:00: 23:59 pain mg total) Medical tablet 00 :00 by mouth Center every 12 (twelve) hours for 30 days. Max Daily Amount: 30 mg morphine 2022- No Cancer 15mg Take [address] [facility] (MS CONTIN) 9-26 10-26 associated tablet (15 [facility] 15 MG 12 hr 00:00: 23:59 pain mg total) Medical tablet 00 :00 by mouth Center every 12 (twelve) hours for 30 days. Max Daily Amount: 30 mg lidocaine-p 2022- No 1g Apply [address] [facility] [address] [facility] rilocaine 9-21 10-17 applicatio Marielle es (EMLA) 00:00: 00:00 n (1 g Medical 2.5-2.5 % 00 :00 total) Center cream topically 2 (two) times daily as needed As needed. lidocaine-p 2022- No 1g Apply [address] [facility] [address] rilocaine 03-11 applicatio [facility]ielle es (EMLA) 00:00: 00:00 n (1 g Medical 2.5-2.5 % 00 :00 total) Center cream topically 2 (two) times daily as needed As needed. potassium 2022-2022- No Hypokalemia 20meq Q.5D Take [address] [facility] chloride SA 02-24 tablet (20 L ukes (K-DUR,KLOR 00:00: 00:00 mEq total) Medical -CON-M) 20 00 :00 by mouth [address] MEQ tablet (two) times daily. HYDROcodone 2022-2022- No Cancer 1{tbl} Take [address] [facility] [address] -acetaminop 02-24 associated tablet by Nicole zaman (NORCO 00:00: 00:00 pain mouth Medic al 7.5-325) 00 :00 every 4 Center 7.5-325 mg (four) per tablet hours as needed for Pain. Max Daily Amount: 6 tablets potassium 2022- No Hypokalemia 20meq Q.5D Take [address] [facility] [address] chloride SA 02-24- tablet (20 L ukes (K-DUR,KLOR 00:00: 00:00 mEq total) Medical -CON-M) 20 00 :00 by mouth [address] MEQ tablet (two) times daily. HYDROcodone 2022- No Cancer 1{tbl} Take [address] [facility] [address] -acetaminop 02-24 associated tablet by Nicole zaman (NORCO 00:00: 00:00 pain mouth Medic al 7.5-325) 00 :00 every 4 Center 7.5-325 mg (four) per tablet hours as needed for Pain. Max Daily Amount: 6 tablets HYDROcodone 2022-2022- No Cancer 1{tbl} Take [address] [facility] [address] -acetaminop 02-09- associated tablet by Nicole zaman (NORCO 00:00: 00:00 pain mouth Medic al 7.5-325) 00 :00 every 4 Center 7.5-325 mg (four) per tablet hours as needed for Pain. Max Daily Amount: 6 tablets HYDROcodone No Cancer 1{tbl} Take [address] [facility] [address] -acetaminop 02-09 associated tablet by Nicole zaman (NORCO 00:00: 00:00 pain mouth Medic al 7.5-325) 00 :00 every 4 Center 7.5-325 mg (four) per tablet hours as needed for Pain. Max Daily Amount: 6 tablets amoxicillin 2022- No 1{tbl} Q.5D Take [address] -clavulanat 802-21 tablet by Louise barrios 00:00: 23:59 mouth 2 Medical (AUGMENTIN) 00 :00 (two) Center 875-125 mg times per tablet daily for 14 days. amoxicillin 2022- No 1{tbl} Q.5D Take [address] -clavulanat 02-07 tablet by Louise barrios 00:00: 23:59 mouth 2 Medical (AUGMENTIN) 00 :00 (two) Center 875-125 mg times per tablet daily for 14 days. amoxicillin 2022- No 1{tbl} Q.5D Take [address] -clavulanat 8-20 -20 tablet by Louise barrios 00:00: 00:00 mouth 2 Medical (AUGMENTIN) 00 :00 (two) Center 875-125 mg times per tablet daily for 10 days. amoxicillin 2022- No 1{tbl} Q.5D Take [address] -clavulanat 8-20 -20 tablet by Louise giangs denis 00:00: 00:00 mouth 2 Medical (AUGMENTIN) 00 :00 (two) Center 875-125 mg times per tablet daily for 10 days. metFORMIN 2022- No 500mg Take [address] [facility] (GLUMETZA) 01-31 tablet Nicole 500 MG 04:40: 00:00 (500 mg Medical (MOD) 24 hr 52 :00 total) by [facility] tablet mouth daily with breakfast Dose unknown . metFORMIN 2022- No 500mg Take [address] [facility] (GLUMETZA) 01-31 tablet [facility] 500 MG 04:40: 00:00 (500 mg Medical (MOD) 24 hr 52 :00 total) by [facility] tablet mouth daily with breakfast Dose unknown . gabapentin 2023- No Neuropathy 300mg [id number] Take [address] [facility] (Neurontin) 01-27 [id number] capsule [facility] 300 MG 00:00: 23:59 3D (300 mg Medical capsule 00 :00 total) by Center mouth 3 (three) times daily. gabapentin 2023- No Neuropathy 300mg Q.[id number] Take [address] [facility] (Neurontin) 01-27 [id number] capsule [facility] 300 MG 00:00: 23:59 3D (300 mg Medical capsule 00 :00 total) by Center mouth 3 (three) times daily. gabapentin 2022- No Cancer Take [address] [facility] [address] [facility] (NEURONTIN) 01-26 associated tablets [facility] 100 MG 00:00: 00:00 pain TID po. Medical capsule 00 :00 Council gabapentin 2022- No Cancer Take [address] [facility] [address] [facility] (NEURONTIN) 01-26 associated tablets [facility] 100 MG 00:00: 00:00 pain TID po. Medical capsule 00 :00 Council metFORMIN Yes SMARTSI [facility] (GLUCOPHAGE 8-07 Tablet(s) Marielle es ) 1000 MG 00:00: By Mouth Medi farrukh tablet 00 Morning-[facility] metFORMIN Yes SMARTSI [facility] (GLUCOPHAGE 8-07 Tablet(s) Marielle es ) 1000 MG 00:00: By Mouth Medi farrukh tablet 00 Morning-[facility] morphine 2022- No Cancer 15mg Q.5D Take [address] [facility] (MS CONTIN) 01-13 08-20 associated tablet (15 [facility] 15 MG 12 hr 00:00: 00:00 pain mg total) Medical tablet 00 :00 by mouth 2 Center (two) times daily for 60 days. Max Daily Amount: 30 mg morphine 2022-2022- No Cancer 15mg Q.5D Take [address] [facility] (MS CONTIN) 01-13 08-20 associated tablet (15 [facility] 15 MG 12 hr 00:00: 00:00 pain mg total) Medical tablet 00 :00 by mouth 2 Center (two) times daily for 60 days. Max Daily Amount: 30 mg HYDROcodone 2022-0 2022- No Cancer 1{tbl} Take [address] [facility] -acetaminop 01-04 associated tablet by Nicole hen (NORCO 00:00: 00:00 pain mouth Medic al 5-325) 00 :00 every 6 Center 5-325 mg (six) per tablet hours as needed for Pain. Max Daily Amount: 4 tablets HYDROcodone 2022-0 2022- No Cancer 1{tbl} Take [address] [facility] -acetaminop 01-04 associated tablet by Nicole hen (NORCO 00:00: 00:00 pain mouth Medic al 5-325) 00 :00 every 6 Center 5-325 mg (six) per tablet hours as needed for Pain. Max Daily Amount: 4 tablets gabapentin 2022-2022- No Cancer 100mg Q.[id number] Take [address] [facility] (NEURONTIN) 01-04 associated [id number] capsule [facility] 100 MG 00:00: 00:00 pain 3D (100 mg Medical capsule 00 :00 total) by Center mouth 3 (three) times daily. gabapentin 2022-0 2022- No Cancer 100mg Q.[id number] Take [address] [facility] (NEURONTIN) 01-04 associated [id number] capsule [facility] 100 MG 00:00: 00:00 pain 3D (100 mg Medical capsule 00 :00 total) by Center mouth 3 (three) times daily. promethazin 2022-0 2022- No 25mg Take [address] [facility] e 12-20- tablet (25 [facility] (PHENERGAN) 23:09: 00:00 mg total) Medical 25 MG 23 :00 by mouth Center tablet every 6 (six) hours as needed for Nausea. promethazin 2022-0 2022- No 25mg Take [address] [facility] e 12-20- tablet (25 [facility] (PHENERGAN) 23:09: 00:00 mg total) Medical 25 MG 23 :00 by mouth Center tablet every 6 (six) hours as needed for Nausea. promethazin 2022-0 202- No TAKE ONE [facility] e 12-20 11-22 (1) TABLET [facility] (PHENERGAN) 00:00: 00:00 BY MOUTH M edical 25 MG 00 :00 EVERY 6 Center tablet HOURS NEEDED. promethazin 2022-2022- No TAKE ONE [facility] e 12-2022 (1) TABLET [facility] (PHENERGAN) 00:00: 00:00 BY MOUTH M edical 25 MG 00 :00 EVERY 6 Center tablet HOURS NEEDED. gabapentin 2022-2022- No 100mg Q.[id number] Take [address] [facility] (NEURONTIN) 11-25- [id number] capsule [facility] 100 MG 12:03: 00:00 3D (100 mg Medical capsule 04 :00 total) by Center mouth in the morning and 1 capsule (100 mg total) at noon and 1 capsule (100 mg total) in the evening. HYDROcodone 2022-2022- No 1{tbl} Take [address] -acetaminop 11-25 tablet by Louise zaman (NORCO 12:03: 00:00 mouth Medic al 5-325) 04 :00 every 6 Center 5-325 mg (six) per tablet hours as needed for Pain. gabapentin 2022-2022- No 100mg Q.[id number] Take [address] [facility] (NEURONTIN) 11-25- [id number] [facility] 100 MG 12:03: 00:00 3D (100 mg Medical capsule 04 :00 total) by Center mouth in the morning and 1 capsule (100 mg total) at noon and 1 capsule (100 mg total) in the evening. HYDROcodone 2022-2022- No 1{tbl} Take [address] [facility] -acetaminop 11-25- tablet by Louise zaman ([facility] 12:03: 00:00 mouth Medic al 5-325) 04 :00 every 6 Center 5-325 mg (six) per tablet hours as needed for Pain. gabapentin 2022-2022- No Cancer 100mg Q.[id number] Take [address] [facility] (NEURONTIN) 11-25-17 associated [id number] [facility] 100 MG 00:00: 00:00 pain 3D (100 mg Medical capsule 00 :00 total) by Center mouth in the morning and 1 capsule (100 mg total) at noon and 1 capsule (100 mg total) in the evening. HYDROcodone 2022-2022- No Cancer 1{tbl} Take [address] [facility] -acetaminop 11-25 associated tablet by Nicole zaman ([facility] 00:00: 00:00 pain mouth Medic al 5-325) 00 :00 every 6 Center 5-325 mg (six) per tablet hours as needed for Pain. Max Daily Amount: 4 tablets gabapentin 2022-2022- No Cancer 100mg Q.09501175 Take [address] [facility] (NEURONTIN) 11-25 associated [id number] [facility] 100 MG 00:00: 00:00 pain 3D (100 mg Medical capsule 00 :00 total) by Center mouth in the morning and 1 capsule (100 mg total) at noon and 1 capsule (100 mg total) in the evening. HYDROcodone 2022-2022- No Cancer 1{tbl} Take [address] [facility] -acetaminop 11-25 associated tablet by Nicole zaman ([facility] 00:00: 00:00 pain mouth Medic al 5-325) 00 :00 every 6 Center 5-325 mg (six) per tablet hours as needed for Pain. Max Daily Amount: 4 tablets dexAMETHaso 2022- No Other As [facility] ne 11-18 fatigue directed , [facility] (DECADRON) 00:00: 00:00 maximum 2 M edical 2 MG tablet 00 :00 pill BID Cent er po. dexAMETHaso 2022-2022- No Other As [facility] ne 11-18 fatigue directed , [facility] (DECADRON) 00:00: 00:00 maximum 2 M edical 2 MG tablet 00 :00 pill BID Cent er po. pantoprazol 3-0 Yes 20mg QD Take [address] [facility] e 5-01 tablet (20 [facility] (PROTONIX) 00:00: mg total) Me dical 20 MG 00 by mouth Center tablet daily As needed. pantoprazol 2023-0 Yes 20mg QD Take [address] [facility] e 5-01 tablet (20 [facility] (PROTONIX) 00:00: mg total) Me dical 20 MG 00 by mouth Center tablet daily As needed. HYDROcodone 2022-0 2022- No 1{tbl} Q6H Take [address] -acetaminop 5-01 11-03 tablet by Louise zaman ([facility] 00:00: 00:00 mouth Medic al 10-325) 00 :00 every 6 Center 10-325 mg (six) per tablet hours if needed. HYDROcodone 2023-0 2023- No 1{tbl} Q6H Take [address] -acetaminop 5-01 11-03 tablet by Louise zaman ([facility] 00:00: 00:00 mouth Medic al 10-325) 00 :00 every 6 Center 10-325 mg (six) per tablet hours if needed. lisinopriL 2023-0 Yes 20mg QD Take 1 [facility] (PRINIVIL,Z 4-26 tablet (20 Louise kes ESTRIL) 20 17:28: mg total) Me dical MG tablet 04 by mouth Center in the morning. HYDROcodone 2023-0 Yes 1{tbl} Take [address] [facility] [address] [facility] -acetaminop 4-26 tablet by Marielle es hen ([place] 17:28: mouth Medica l 5-325) 04 every [...] -acetaminop 4-26 tablet by Marielle es hen ([place] 17:28: mouth Medica l 5-325) 04 every [...] needed for Pain. gabapentin 2023-0 Yes 100mg Q.[id number] Take [address] [facility] (NEURONTIN) 4-25 [id number] [facility] 100 MG 10:42: 3D (100 [...] needed for Pain. gabapentin 2023-0 Yes 100mg Q.[id number] Take [address] [facility] (NEURONTIN) 4-25 [id number] [facility] 100 MG 10:42: 3D (100 [...] needed for Pain. gabapentin 2023-0 Yes 100mg Q.[id number] Take [address] [facility] (NEURONTIN) 4-25 [id number] [facility] 100 MG 10:42: 3D (100 [...] needed for Pain. gabapentin 2023-0 Yes 100mg Q.[id number] Take [address] [facility] (NEURONTIN) 4-25 [id number] [facility] 100 MG 10:42: 3D (100 [...] needed for Pain. gabapentin 2023-0 Yes 100mg Q.[id number] Take [address] [facility] (NEURONTIN) 4-25 [id number] [facility] 100 MG 10:42: 3D (100 mg Medical capsule 34 total) by Center mouth in the morning and 1 capsule (100 mg total) at noon and 1 capsule (100 mg total) in the evening. promethazin 2023-0 2023- No 25mg Take [address] [facility] e 3-30 11-22 tablet (25 [facility] (PHENERGAN) 00:00: 00:00 mg total) Medical 25 MG 00 :00 by mouth Center tablet every 6 (six) hours as needed. promethazin 2023-0 3- No 25mg Take [address] [facility] e 09-17 tablet (25 [facility] (PHENERGAN) 00:00: 00:00 mg total) Medical 25 MG 00 :00 by mouth Center tablet every 6 (six) hours as needed. LORazepam 2023-0 2023- No As needed. [facility] (ATIVAN) 3-20 10-17 [facility] 0.5 MG 00:00: 00:00 Medical tablet 00 :00 Center LORazepam 3-0 2023- No As needed. [facility] (ATIVAN) 3-20 10-17 [facility] 0.5 MG 00:00: 00:00 Medical tablet 00 :00 Center docusate 2023-0 2023- No 100mg Q.5D Take 1 [facility] (COLACE) 00:00: 00:00 (100 mg Medic al 100 MG 00 :00 total) by Center capsule mouth 2 (two) times daily As needed. docusate 2023-0 2023- No 100mg Q.5D Take 1 [facility] 08-[facility] (COLACE) 00:00: 00:00 (100 mg Medic al 100 MG 00 :00 total) by Center capsule mouth 2 (two) times daily As needed. ibuprofen 2023-0 Yes 600mg Take [address] [facility] (ADVIL,MOTR 2-19 mg by [facility] IN) 600 MG 09:30: mouth Medica l tablet 04 every 6 Center (six) hours as needed for Pain. gabapentin 2023-0 Yes 100mg Q.[id number] Take [address] [facility] (NEURONTIN) 2-19 [id number] mg by [facility] 100 MG 09:30: 3D mouth 3 Medical capsule 04 (three) Center times daily. ibuprofen 2023-0 Yes 600mg Take [address] [facility] (ADVIL,MOTR 2-19 mg by [facility] [place]) 600 MG 09:30: mouth Medica l tablet 04 every 6 Center (six) hours as needed for Pain. gabapentin 2023-0 Yes 100mg Q.[id number] Take [address] [facility] (NEURONTIN) 2-19 [id number] mg by [facility] 100 MG 09:30: 3D mouth 3 Medical capsule 04 (three) Center times daily. ibuprofen 2023-0 Yes 600mg Take [address] [facility] (ADVIL,MOTR 2-19 mg by [facility] [place]) 600 MG 09:30: mouth Medica l tablet 04 every 6 Center (six) hours as needed for Pain. gabapentin 2023-0 Yes 100mg Q.[id number] Take [address] [facility] (NEURONTIN) 2-19 [id number] mg by [facility] 100 MG 09:30: 3D mouth 3 Medical capsule 04 (three) Center times daily. ibuprofen 2023-0 Yes 600mg Take [address] [facility] (ADVIL,MOTR 2-19 mg by [facility] [place]) 600 MG 09:30: mouth Medica l tablet 04 every 6 Center (six) hours as needed for Pain. gabapentin 2023-0 Yes 100mg Q.[id number] Take [address] [facility] (NEURONTIN) 2-19 [id number] mg by [facility] 100 MG 09:30: 3D mouth 3 Medical capsule 04 (three) Center times daily. ibuprofen 2023-0 Yes 600mg Take [address] [facility] (ADVIL,MOTR 2-19 mg by [facility] [place]) 600 MG 09:30: mouth Medica l tablet 04 every 6 Center (six) hours as needed for Pain. gabapentin 2023-0 Yes 100mg Q.[id number] Take [address] [facility] (NEURONTIN) 2-19 [id number] mg by [facility] 100 MG 09:30: 3D mouth 3 Medical capsule 04 (three) Center times daily. ibuprofen 2023-0 Yes 600mg Take [address] [facility] (ADVIL,MOTR 2-19 mg by [facility] [place]) 600 MG 09:30: mouth Medica l tablet 04 every 6 Center (six) hours as needed for Pain. gabapentin 2023-0 Yes 100mg Q.[id number] Take [address] [facility] (NEURONTIN) 2-19 [id number] mg by [facility] 100 MG 09:30: 3D mouth 3 Medical capsule 04 (three) Center times daily. ibuprofen 2023-0 Yes 600mg Take [address] [facility] (ADVIL,MOTR 2-19 mg by [facility] [place]) 600 MG 09:30: mouth Medica l tablet 04 every 6 Center (six) hours as needed for Pain. gabapentin 2023-0 Yes 100mg Q.[id number] Take [address] [facility] (NEURONTIN) 2-19 [id number] mg by [facility] 100 MG 09:30: 3D mouth 3 Medical capsule 04 (three) Center times daily. ibuprofen 2023-0 Yes 600mg Take [address] [facility] (ADVIL,MOTR 2-19 mg by [facility] [place]) 600 MG 09:30: mouth Medica l tablet 04 every 6 Center (six) hours as needed for Pain. gabapentin 2023-0 Yes 100mg Q.[id number] Take [address] [facility] (NEURONTIN) 2-19 [id number] mg by [facility] 100 MG 09:30: 3D mouth 3 Medical capsule 04 (three) Center times daily. ibuprofen 2023-0 Yes 600mg Take [address] [facility] (ADVIL,MOTR 2-19 mg by [facility] [place]) 600 MG 09:30: mouth Medica l tablet 04 every 6 Center (six) hours as needed for Pain. gabapentin 2023-0 Yes 100mg Q.[id number] Take [address] [facility] (NEURONTIN) 2-19 [id number] mg by [facility] 100 MG 09:30: 3D mouth 3 Medical capsule 04 (three) Center times daily. ibuprofen 2023-0 Yes 600mg Take [address] [facility] (ADVIL,MOTR 2-19 mg by [facility] [place]) 600 MG 09:30: mouth Medica l tablet 04 every 6 Center (six) hours as needed for Pain. gabapentin 2023-0 Yes 100mg Q.[id number] Take [address] [facility] (NEURONTIN) 2-19 [id number] mg by [facility] 100 MG 09:30: 3D mouth 3 Medical capsule 04 (three) Center times daily. ibuprofen 2023-0 Yes 600mg Take [address] [facility] (ADVIL,MOTR 2-19 mg by [facility] [place]) 600 MG 09:30: mouth Medica l tablet 04 every 6 Center (six) hours as needed for Pain. gabapentin 2023-0 Yes 100mg Q.[id number] Take [address] [facility] (NEURONTIN) 2-19 [id number] mg by [facility] 100 MG 09:30: 3D mouth 3 Medical capsule 04 (three) Center times daily. ibuprofen 2023-0 Yes 600mg Take [address] [facility] (ADVIL,MOTR 2-19 mg by [facility] [place]) 600 MG 09:30: mouth Medica l tablet 04 every 6 Center (six) hours as needed for Pain. gabapentin 2023-0 Yes 100mg Q.[id number] Take [address] [facility] (NEURONTIN) 2-19 [id number] mg by [facility] 100 MG 09:30: 3D mouth 3 Medical capsule 04 (three) Center times daily. ibuprofen 2023-0 Yes 600mg Take [address] [facility] (ADVIL,MOTR 2-19 mg by [facility] [place]) 600 MG 09:30: mouth Medica l tablet 04 every 6 Center (six) hours as needed for Pain. gabapentin 2023-0 Yes 100mg Q.[id number] Take [address] [facility] (NEURONTIN) 2-19 [id number] mg by [facility] 100 MG 09:30: 3D mouth 3 Medical capsule 04 (three) Center times daily. ibuprofen 2023-0 Yes 600mg Take [address] [facility] (ADVIL,MOTR 2-19 mg by [facility] [place]) 600 MG 09:30: mouth Medica l tablet 04 every 6 Center (six) hours as needed for Pain. gabapentin 2023-0 Yes 100mg Q.[id number] Take [address] [facility] (NEURONTIN) 2-19 [id number] mg by [facility] 100 MG 09:30: 3D mouth 3 Medical capsule 04 (three) Center times daily. ibuprofen 2023-0 Yes 600mg Take [address] [facility] (ADVIL,MOTR 2-19 mg by [facility] [place]) 600 MG 09:30: mouth Medica l tablet 04 every 6 Center (six) hours as needed for Pain. gabapentin 2023-0 Yes 100mg Q.[id number] Take [address] [facility] (NEURONTIN) 2-19 [id number] mg by [facility] 100 MG 09:30: 3D mouth 3 Medical capsule 04 (three) Center times daily. ibuprofen 2023-0 Yes 600mg Take [address] [facility] (ADVIL,MOTR 2-19 mg by [facility] [place]) 600 MG 09:30: mouth Medica l tablet 04 every 6 Center (six) hours as needed for Pain. gabapentin 2023-0 Yes 100mg Q.[id number] Take [address] [facility] (NEURONTIN) 2-19 [id number] mg by [facility] 100 MG 09:30: 3D mouth 3 Medical capsule 04 (three) Center times daily. ibuprofen 2023-0 Yes 600mg Take [address] [facility] (ADVIL,MOTR 2-19 mg by [facility] [place]) 600 MG 09:30: mouth Medica l tablet 04 every 6 Center (six) hours as needed for Pain. gabapentin 2023-0 Yes 100mg Q.[id number] Take [address] [facility] (NEURONTIN) 2-19 [id number] mg by L [facility] 100 MG 09:30: 3D mouth 3 Medical capsule 04 (three) Center times daily. ibuprofen 2023-0 Yes 600mg Take [address] [facility] (ADVIL,MOTR 2-19 mg by [facility] [place]) 600 MG 09:30: mouth Medica l tablet 04 every 6 Center (six) hours as needed for Pain. gabapentin 2023-0 Yes 100mg Q.[id number] Take [address] [facility] (NEURONTIN) 2-19 [id number] mg by [facility] 100 MG 09:30: 3D mouth 3 Medical capsule 04 (three) Center times daily. ibuprofen 2023-0 Yes 600mg Take [address] [facility] (ADVIL,MOTR 2-19 mg by [facility] [place]) 600 MG 09:30: mouth Medica l tablet 04 every 6 Center (six) hours as needed for Pain. gabapentin 2023-0 Yes 100mg Q.[id number] Take [address] [facility] (NEURONTIN) 2-19 [id number] mg by L [facility] 100 MG 09:30: 3D mouth 3 Medical capsule 04 (three) Center times daily. ibuprofen 2023-0 Yes 600mg Take [address] [facility] (ADVIL,MOTR 2-19 mg by [facility] [place]) 600 MG 09:30: mouth Medica l tablet 04 every 6 Center (six) hours as needed for Pain. gabapentin 2023-0 Yes 100mg Q.[id number] Take [address] [facility] (NEURONTIN) 2-19 [id number] mg by [facility] 100 MG 09:30: [...] nter tablet breakfast Dose unknown . lisinopriL 202-0 2023- No 20mg QD Take [address] [facility] (PRINIVIL,Z 2-18 -18 by mouth Marielle es ESTRIL) 20 08:18: 00:00 daily. Medi farrukh MG tablet 07 :00 Council lisinopriL 3-0 2023- No 20mg QD Take [address] [facility] (PRINIVIL,Z 2-18 -18 by mouth Marielle es ESTRIL) 20 08:18: 00:00 daily. Medi farrukh MG tablet 07 :00 Council lisinopriL 2022-0 2023- No 20mg QD Take 20 mg [...] daily. Medi farrukh MG tablet 07 :00 Council lisinopriL 2023-0 2023- No 20mg QD Take [address] [facility] (PRINIVIL,Z 2-18 02-18 by mouth Marielle es ESTRIL) 20 08:18: 00:00 daily. Medi farrukh MG tablet 07 :00 Council lisinopriL 3-0 2023- No 20mg QD Take [address] [facility] (PRINIVIL,Z 2-18 02-18 by mouth Marielle es ESTRIL) 20 08:18: 00:00 daily. Medi farrukh MG tablet 07 :00 Council lisinopriL 2022-0 2023- No 20mg QD Take [address] [facility] (PRINIVIL,Z 2-18 02-18 by mouth Marielle es ESTRIL) 20 08:18: 00:00 daily. Medi farrukh MG tablet 07 :00 Council lisinopriL 2022-0 2023- No 20mg QD Take [address] [facility] (PRINIVIL,Z 2-18 02-18 by mouth Marielle es ESTRIL) 20 08:18: 00:00 daily. Medi farrukh MG tablet 07 :00 Council lisinopriL 2022-0 2023- No 20mg QD Take [address] [facility] (PRINIVIL,Z 2-18 02-18 by mouth Marielle es ESTRIL) 20 08:18: 00:00 daily. Medi farrukh MG tablet 07 :00 Council lisinopriL 3-0 2023- No 20mg QD Take [address] [facility] (PRINIVIL,Z 2-18 02-18 by mouth Marielle es ESTRIL) 20 08:18: 00:00 daily. Medi farrukh MG tablet 07 :00 Council lisinopriL 2022-0 2023- No 20mg QD Take [address] [facility] (PRINIVIL,Z 2-18 02-18 by mouth Marielle es ESTRIL) 20 08:18: 00:00 daily. Medi farrukh MG tablet 07 :00 Council amoxicillin 2022-0 3- No 1{tbl} Q.5D Take [...] St -clavulanat 2-15 02-15 tablet by Louise [employer] e 09:46: 00:00 mouth 2 Medical (AUGMENTIN) 23 :00 (two) Center 875-125 mg times per tablet daily. amoxicillin 2022-2022- No 1{tbl} Q.5D Take [address] -clavulanat 2-15 02-15 tablet by Louise [employer] [facility] 09:46: 00:00 mouth 2 Medical (AUGMENTIN) [...] St -clavulanat 2-15 02-15 tablet by Louise [employer] 09:46: 00:00 mouth 2 Medical (AUGMENTIN) 23 :00 (two) Center 875-125 mg times per tablet daily. amoxicillin 2022-0 3- No 1{tbl} Q.5D Take [address] -clavulanat 2-15 02-15 tablet by Louise [employer] 09:46: 00:00 mouth 2 Medical (AUGMENTIN) 23 :00 (two) Center 875-125 mg times per tablet daily. amoxicillin 2022-0 3- No 1{tbl} Q.5D Take [address] -clavulanat 2-15 02-15 tablet by Louise [employer] e 09:46: 00:00 mouth 2 Medical (AUGMENTIN) 23 :00 (two) Center 875-125 mg times per tablet daily. amoxicillin 2022-0 2022- No 1{tbl} Q.5D Take [address] -clavulanat 2-15 02-15 tablet by Louise [employer] 09:46: 00:00 mouth 2 Medical (AUGMENTIN) 23 :00 (two) Center 875-125 mg times per tablet daily. lidocaine-p 2022-2022- No 1g Apply [address] [facility] rilocaine 08-03 applicatio Marielle es (EMLA) 00:00: 00:00 n (1 g Medical 2.5-2.5 % 00 :00 total) Center cream topically As needed. lidocaine-p 2022-2022- No 1g Apply [address] [facility] rilocaine 08-03 applicatio Marielle es (EMLA) 00:00: 00:00 n (1 g Medical 2.5-2.5 % 00 :00 total) Center cream topically As needed. metFORMIN 2021-0 Yes 500mg Take 500 [facility] [...] e 12:58: mouth 2 Medical (AUGMENTIN) 09 ([facility]) Center 875-125 mg times per tablet [...] e 12:58: mouth 2 Medical (AUGMENTIN) 09 ([facility]) Center 875-125 mg times per tablet [...] 875-125 mg times per tablet daily. lisinopriL 2022-0 Yes 20mg QD Take [address] [facility] (PRINIVIL,Z 2-10 by mouth Luke s ESTRIL) 20 10:10: daily. Medic al MG tablet 08 Center amoxicillin 2-0 Yes 1{tbl} Q.5D Take [...] Take [address] [facility] (ZOFRAN-ODT 2-10 -10 by mouth Marielle es ) 4 MG [...] hours as needed for Nausea. ondansetron 2021-0 2022- No 4mg Take [address] [facility] (ZOFRAN-ODT 2-10 02-10 by mouth Marielle es ) 4 MG 10:03: 00:00 every 8 Medical disintegrat 38 :00 (eight) Cente r ing tablet hours as needed for Nausea. ondansetron 2021-0 2021- No 4mg Take [address] [facility] (ZOFRAN-ODT 2-10 02-10 by mouth Marielle es ) 4 MG 10:03: 00:00 every 8 Medical disintegrat 38 :00 (eight) Cente r ing tablet hours as needed for Nausea. LORazepam 2021-0 2- No 1mg Take 1 [...] Center hours as needed for Anxiety. LORazepam 2-0 2022- No 1mg Take [address] [facility] (ATIVAN) 1 2-10 02-10 by mouth Luke s MG tablet 10:02: 00:00 every 8 Medi farrukh 52 :00 (eight) Center hours as needed for Anxiety. LORazepam 2-0 2022- No 1mg Take 1 mg [facility] [...] 10:02: 00:00 daily. Medical tablet 10 :00 Council atorvastati 2021- No 20mg QD Take [address] [facility] (LIPITOR) 2-10 02-10 by mouth Marielle es 20 MG 10:02: 00:00 daily. Medical tablet 10 :00 Council atorvastati 2021- No 20mg QD Take [address] [facility] n (LIPITOR) 2-10 02-10 by mouth Marielle es 20 MG 10:02: 00:00 daily. Medical tablet 10 :00 Council atorvastati 2021- No 20mg QD Take [address] [facility] (LIPITOR) 2-10 02-10 by mouth Marielle es 20 MG 10:02: 00:00 daily. Medical tablet 10 :00 Council atorvastati 2021- No 20mg QD Take [address] [facility] (LIPITOR) 2-10 02-10 by mouth Marielle es 20 MG 10:02: 00:00 daily. Medical tablet 10 :00 Council atorvastati 2021- No 20mg QD Take [address] [facility] n (LIPITOR) 2-10 02-10 by mouth Marielle es 20 MG 10:02: 00:00 daily. Medical tablet 10 :00 Council atorvastati 2021- No 20mg QD Take [address] [facility] (LIPITOR) 2-10 02-10 by mouth Marielle es 20 MG 10:02: 00:00 daily. Medical tablet 10 :00 Council atorvastati 2021- No 20mg QD Take [address] [facility] (LIPITOR) 2-10 02-10 by mouth Marielle es 20 MG 10:02: 00:00 daily. Medical tablet 10 :00 Council atorvastati 2021- No 20mg QD Take [address] [facility] (LIPITOR) 2-10 02-10 by mouth Marielle es 20 MG 10:02: 00:00 daily. Medical tablet 10 :00 Council atorvastati 2021- No 20mg QD Take [address] [facility] (LIPITOR) 2-10 02-10 by mouth Marielle es 20 MG 10:02: 00:00 daily. Medical tablet 10 :00 Council atorvastati 2021- No 20mg QD Take [address] [facility] (LIPITOR) 2-10 02-10 by mouth Marielle es 20 MG 10:02: 00:00 daily. Medical tablet 10 :00 Council atorvastati 2021- No 20mg QD Take [address] [facility] (LIPITOR) 2-10 02-10 by mouth Marielle es 20 MG 10:02: 00:00 daily. Medical tablet 10 :00 Council allopurinoL Yes TAKE ONE [facility] [...] No TAKE ONE [facility] (ZYLOPRIM) 2-08 02-15 (1) [facility] 100 MG 00:00: 00:00 TABLET(S) [...] MOUTH Center ONCE A DAY. OLANZapine 2021-0 2022- No TAKE ONE [facility] (ZYPREXA) 2-08 02-15 (1) [facility] 2.5 MG 00:00: 00:00 TABLET(S) Medic al tablet 00 :00 BY MOUTH Center EVERY NIGHT. LORazepam 0 Yes 1mg Take 1 mg [...] 1000mg Take 2 [facility] carbonate 1- 02-10 [facility] (TUMS) 500 00:00: 00:00 [...] needed for up to 30 days. ciprofloxac 2-0 2- No 500mg Q.5D Take [address] [facility] [address] [facility] in HCl 07-11 tablet [facility] (CIPRO) 500 00:00: 23:59 (500 mg Me dical MG tablet 00 :00 total) by Cente r mouth 2 (two) times daily for 5 days. ciprofloxac 2-0 2022- No 500mg Q.5D Take [address] [facility] [address] [facility] in HCl 07-11 tablet [facility] (CIPRO) 500 00:00: 23:59 (500 mg Me dical MG tablet 00 :00 total) by Cente r mouth 2 (two) times daily for 5 days. ciprofloxac 2-0 2022- No 500mg Q.5D Take [address] [facility] [address] [facility] in HCl 07-11 tablet [facility] (CIPRO) 500 00:00: 23:59 (500 mg Me dical MG tablet 00 :00 total) by Cente r mouth 2 (two) times daily for 5 days. ciprofloxac 0 2021- No 500mg Q.5D Take 1 CH [...] (two) times daily for 5 days. ciprofloxac 0 2021- No 500mg Q.5D Take 1 [facility] [...] (two) times daily for 5 days. allopurinoL 2021-2021- No 100mg QD Take [...] QD Take [address] [facility] [address] [facility] (ZYLOPRIM) 06-27-08 tablet [facility] 100 MG 00:00: 00:00 (100 [...] mouth Center daily for 30 days. lisinopriL 2-0 2022- No 20mg QD Take [address] [facility] (PRINIVIL,Z 06-26 by mouth Marielle es ESTRIL) 20 08:52: 00:00 daily. Medi farrukh MG tablet 25 :00 Council lisinopriL 2021-0 2022- No 20mg QD Take [address] [facility] (PRINIVIL,Z 06-26 by mouth Marielle es ESTRIL) 20 08:52: 00:00 daily. Medi farrukh MG tablet 25 :00 Council lisinopriL 2021-0 2022- No 20mg QD Take [address] [facility] (PRINIVIL,Z 06-26 by mouth Marielle es ESTRIL) 20 08:52: 00:00 daily. Medi farrukh MG tablet 25 :00 Council lisinopriL 2021-0 2022- No 20mg QD Take [address] [facility] (PRINIVIL,Z 06-26 by mouth Marielle es ESTRIL) 20 08:52: 00:00 daily. Medi farrukh MG tablet 25 :00 Council lisinopriL 2021-0 2022- No 20mg QD Take [address] [facility] (PRINIVIL,Z 06-26 by mouth Marielle es ESTRIL) 20 08:52: 00:00 daily. Medi farrukh MG tablet 25 :00 Council lisinopriL 2021-0 2- No 20mg QD Take [address] [facility] (PRINIVIL,Z 06-26 by mouth Marielle es ESTRIL) 20 08:52: 00:00 daily. Medi farrukh MG tablet 25 :00 Council lisinopriL 2021-0 2022- No 20mg QD Take [address] [facility] (PRINIVIL,Z 06-26 by mouth Marielle es ESTRIL) 20 08:52: 00:00 daily. Medi farrukh MG tablet 25 :00 Council ondansetron 2021-3- No 4mg Take [address] [facility] (ZOFRAN-ODT 06-26 tablet (4 Louise kes ) 4 MG 00:00: 00:00 mg total) Medic al disintegrat 00 :00 by mouth Cent er ing tablet every 4 (four) hours as needed for up to 7 days. ondansetron 0 2022- No 4mg Take [address] [facility] (ZOFRAN-ODT 06-26 tablet (4 Louise kes ) 4 MG 00:00: 00:00 mg total) Medic al disintegrat 00 :00 by mouth Cent er ing tablet every 4 (four) hours as needed for up to 7 days. OLANZapine 2021-0 2021- No 2.5mg QD [...] days. Max Daily Amount: 1 patch fentaNYL No 1{patch Place [address] [facility] [address] [facility] [...] 00 :00 30 days. Center packet ursodioL 2022-0 2022- No 250mg Q.5D Take 1 [facility] [...] 1{patch Place [address] [facility] [address] [facility] (DURAGESIC) 06-2605 } patch onto L ukes 25 mcg/hr [...] Take [address] [facility] e glycol 1-06 02-05 by mouth [facility] (GLYCOLAX) 00:00: 23:59 daily [...] Take [address] [facility] glycol 06-2605 by mouth [facility] (GLYCOLAX) 00:00: 23:59 daily [...] (two) times daily for 30 days. fentaNYL 2021-0 2021- No 1{patch Place 1 [facility] [...] days. Max Daily Amount: 1 patch OLANZapine 2021-2021- No 2.5mg QD Take [address] [facility] (ZYPREXA) 06-26 tablet [facility] 2.5 MG 00:00: 23:59 (2.5 mg Medical tablet 00 :00 total) by Center mouth nightly for 30 days. polyethylen 2021-0 2021- No 17g QD Take [address] [facility] e glycol 06-26 by mouth [facility] (GLYCOLAX) 00:00: 23:59 daily for M edical 17 gram 00 :00 30 days. Center packet ursodioL 2021-0 2022- No 250mg Q.5D Take 1 [facility] (ACTIGALL) 06-26 [facility] 250 mg 00:00: 23:59 (250 mg Medical tablet 00 :00 total) by Center mouth 2 (two) times daily for 30 days. fentaNYL 2021-0 2- No 1{patch Place 1 [...] 10mg Take 2 [facility] (DULCOLAX) 1-06 01-17 [facility] 5 mg EC 00:00: 00:00 (10 mg Medical tablet 00 :00 total) by Center mouth daily as needed for Constipati on for up to 30 days. bisacodyL 2021-0 2- No 10mg Take 2 [facility] (DULCOLAX) 06-2617 [facility] 5 mg EC 00:00: 00:00 (10 mg Medical tablet 00 :00 total) by Center mouth daily as needed for Constipati on for up to 30 days. bisacodyL 2021-0 2- No 10mg Take 2 [facility] (DULCOLAX) 06-2617 [facility] 5 mg EC 00:00: 00:00 (10 mg Medical tablet 00 :00 total) by Center mouth daily as needed for Constipati on for up to 30 days. bisacodyL 2021-0 2- No 10mg Take 2 [facility] (DULCOLAX) 06-2617 [facility] 5 mg EC 00:00: 00:00 (10 mg Medical tablet 00 :00 total) by Center mouth daily as needed for Constipati on for up to 30 days. bisacodyL 2021-0 2- No 10mg Take 2 [facility] ([facility] 06-26 [facility] 00:00: 00:00 (10 mg Medical tablet 00 :00 total) by [facility] mouth daily as needed for Constipati on for up to 30 days. bisacodyL 2021-0 2- No 10mg Take 2 [facility] ([facility] 06-2617 [facility] 00:00: 00:00 (10 mg Medical tablet 00 :00 total) by [facility] mouth daily as needed for Constipati on for up to 30 days. bisacodyL 2021-0 2- No 10mg Take 2 [facility] ([facility]-2617 [facility] 00:00: 00:00 (10 mg Medical tablet 00 :00 total) by [facility] mouth daily as needed for Constipati on for up to 30 days. bisacodyL 2021-0 2- No 10mg Take 2 [facility] [...] Q.5D Take [address] [facility] (COLACE) 50 -11 19-16 mLs (200 Marielle es mg/5 mL 00:00: [...] days. Max Daily Amount: 6 tablets ondansetron 2-0 2- No 4mg Take 1 [...] needed for up to 7 days. ondansetron 2021- No 4mg Take 1 [facility] [...] MEQ tablet daily for 5 doses. potassium 2021-2021- No 20meq QD Take 1 [...] MEQ tablet daily for 5 doses. potassium 2021-2021- No 20meq QD Take 1 [...] St cetaminophe 1-05 02-10 tablet by Louise felix n 00:00: 00:00 mouth Medical (PERCOCET) 00 :00 every 4 Center 10-325 mg (four) per tablet hours as needed. Vital Signs Vital Name Observation Time Observation Value Comments Source HEIGHT 2023-04-29 09:57:00 154.9 cm WEIGHT 2023-04-29 09:57:00 85.73 kg HEIGHT 2023-04-29 09:57:00 154.9 cm WEIGHT 2023-04-29 09:57:00 85.73 kg HEIGHT 2023-04-20 10:15:00 154.9 cm WEIGHT 2023-04-20 10:15:00 83.1 kg HEIGHT 2023-04-20 10:15:00 154.9 cm WEIGHT 2023-04-20 10:15:00 83.1 kg HEIGHT 2023-03-24 20:14:00 154.9 cm WEIGHT 2023-03-24 20:14:00 79.561 kg HEIGHT 2023-03-24 11:19:00 154.9 cm WEIGHT 2023-03-24 11:19:00 76.658 kg HEIGHT 2023-03-24 20:14:00 154.9 cm WEIGHT 2023-03-24 20:14:00 79.561 kg HEIGHT 2023-03-24 11:19:00 154.9 cm WEIGHT 2023-03-24 11:19:00 76.658 kg HEIGHT 2023-03-24 09:05:00 154.9 cm WEIGHT 2023-03-24 09:05:00 76.975 kg HEIGHT 2023-03-24 09:05:00 154.9 cm WEIGHT 2023-03-24 09:05:00 76.975 kg HEIGHT 2023-03-10 10:15:00 154.9 cm WEIGHT 2023-03-10 10:15:00 76.159 kg HEIGHT 2023-03-10 10:15:00 154.9 cm WEIGHT 2023-03-10 10:15:00 76.159 kg HEIGHT 2023-03-10 08:38:00 154.9 cm WEIGHT 2023-03-10 08:38:00 76.431 kg HEIGHT 2023-03-10 08:38:00 154.9 cm WEIGHT 2023-03-10 08:38:00 76.431 kg HEIGHT 2023-02-26 13:35:00 154.9 cm WEIGHT 2023-02-26 13:35:00 74.345 kg HEIGHT 2023-02-26 13:35:00 154.9 cm WEIGHT 2023-02-26 13:35:00 74.345 kg WEIGHT 2023-02-24 09:00:00 77.293 kg WEIGHT 2023-02-24 09:00:00 77.293 kg WEIGHT 2023-02-03 06:00:00 73.846 kg WEIGHT 2023-02-01 05:00:00 73.6 kg WEIGHT 2023-01-31 06:00:00 81.9 kg WEIGHT 2023-02-03 06:00:00 73.846 kg WEIGHT 2023-02-01 05:00:00 73.6 kg WEIGHT 2023-01-31 06:00:00 81.9 kg HEIGHT 2023-01-01 12:50:00 154.9 cm WEIGHT 2023-01-01 12:50:00 81.647 kg HEIGHT 2023-01-01 12:50:00 154.9 cm WEIGHT 2023-01-01 12:50:00 81.647 kg HEIGHT 2022-12-30 09:15:00 154.9 cm WEIGHT 2022-12-30 09:15:00 82.101 kg HEIGHT 2022-12-30 09:15:00 154.9 cm WEIGHT 2022-12-30 09:15:00 82.101 kg WEIGHT 2022-11-03 09:00:00 80.423 kg WEIGHT 2022-11-03 09:00:00 80.423 kg HEIGHT [...] WEIGHT 2021-06-03 09:09:00 81.6 kg Systolic blood 2023-05-12 12:27:00 118 mm[Hg] [facility] Diastolic blood 2023-05-12 12:27:00 82 mm[Hg] [facility] Heart rate 2023-05-12 12:27:00 98 /min [facility] Body temperature 2023-05-12 12:27:00 37 Anastasiia [facility] Respiratory rate 2023-05-12 12:27:00 18 /min [facility] Oxygen saturation in 2023-05-12 12:27:00 96 /min [facility] Arterial blood by Medical Ce nter Pulse oximetry Body height 2023-04-29 09:57:00 154.9 cm [facility] Body weight 2023-04-29 09:57:00 85.73 kg [facility] BMI 2023-04-29 09:57:00 35.71 kg/m2 [facility] Systolic blood 2022-10-13 17:00:00 107 mm[Hg] [facility] Diastolic blood 2022-10-13 17:00:00 80 mm[Hg] [facility] Heart rate 2022-10-13 17:00:00 95 /min [facility] Respiratory rate 2022-10-13 17:00:00 15 /min [facility] Oxygen saturation in 2022-10-13 17:00:00 92 /min [facility] Arterial blood by Medical Ce [facility]ter Pulse oximetry Body temperature 2022-10-13 10:38:00 36.56 Anastasiia [facility] Heart rate 2022-08-08 07:38:12 69 /min [facility] Respiratory rate 2022-08-08 07:38:12 17 /min [facility] Oxygen saturation in 2022-08-08 07:38:12 96 /min [facility] Arterial blood by Medical [facility]ter Pulse oximetry Body temperature 2022-08-08 07:37:43 36.56 Anastasiia [facility] Systolic blood 2022-08-08 07:37:30 112 mm[Hg] [facility] Diastolic blood 2022-08-08 07:37:30 85 mm[Hg] [facility] Body height 2022-08-05 05:17:00 154.9 cm [facility] Body weight 2022-08-05 05:17:00 83.371 kg [facility] BMI 2022-08-05 05:17:00 34.73 kg/m2 [facility] Systolic blood 2022-07-02 10:59:00 128 mm[Hg] [facility] Diastolic blood 2022-07-02 10:59:00 88 mm[Hg] [facility] Heart rate 2022-07-02 10:59:00 79 /min [facility] Body temperature 2022-07-02 10:59:00 36.67 Anastasiia [facility] Respiratory rate 2022-07-02 10:59:00 18 /min [facility] Body height 2022-07-02 10:59:00 154.9 cm [facility] Body weight 2022-07-02 10:59:00 84.006 kg [facility] BMI 2022-07-02 10:59:00 34.99 kg/m2 [facility] Oxygen saturation in 2022-07-02 10:59:00 98 /min [facility] Arterial blood by Medical [facility]ter Pulse oximetry Systolic blood 2021-08-04 12:54:00 106 mm[Hg] [facility] Diastolic blood 2021-08-04 12:54:00 60 mm[Hg] [facility] Heart rate 2021-08-04 12:54:00 78 /min [facility] Respiratory rate 2021-08-04 12:54:00 17 /min [facility] Oxygen saturation in 2021-08-04 12:54:00 97 /min [facility] Arterial blood by Medical [facility]ter Pulse oximetry Systolic blood 2021-07-11 11:00:00 110 mm[Hg] [facility] Diastolic blood 2021-07-11 11:00:00 77 mm[Hg] [facility] Heart rate 2021-07-11 11:00:00 69 /min [facility] Body temperature 2021-07-11 11:00:00 36.78 Anastasiia [facility] Respiratory rate 2021-07-11 11:00:00 18 /min [facility] Oxygen saturation in 2021-07-11 11:00:00 99 /min [facility] Arterial blood by [facility] Pulse oximetry Body weight 2021-07-10 09:57:00 71.668 kg [facility] BMI 2021-07-10 09:57:00 29.87 kg/m2 [facility] Body height 2021-06-03 15:16:00 154.9 cm [facility] Procedures Procedure Date / Time Performing Source Performed Clinician POCT-GLUCOSE METER 2023-05-[address] [facility] 12:22:00 [facility] POCT-GLUCOSE METER 2023-05-[address] [facility] 08:13:00 [facility] CBC W/PLT COUNT & AUTO 2023-05-[address] [facility] DIFFER[facility] 03:53:00 [facility] COMPREHENSIVE METABOLIC PANEL 2023-05-12 [address] [facility] 03:53:00 [facility] MAGNESIUM 2023-05-[address] [facility] 03:53:00 [facility] CBC W/PLT COUNT & AUTO 2023-05-[address] [facility] DIFFERENTIAL 03:53:00 [facility] POCT-GLUCOSE METER 2023-05-[address] [facility] 20:06:00 [facility] POCT-GLUCOSE METER 2023-05-11 Yoder, Shamis [facility] 17:20:00 [facility] CBC W/PLT COUNT & AUTO 2023-05-11 Yoder, Shamis [facility]FFER[facility] 05:25:00 [facility] COMPREHENSIVE METABOLIC PANEL 2023-05-11 Yoder, Shamis [facility] 05:25:00 [facility] MAGNESIUM 2023-05-11 Yoder, Shamis [facility] 05:25:00 [facility] CBC W/PLT COUNT & AUTO 2023-05-11 Yoder, Shamis [facility] 05:25:00 [facility] POCT-GLUCOSE METER 2023-05-10 Yoder, Shamis [facility] 20:27:00 [facility] POCT-GLUCOSE METER 2023-05-10 Yoder, Shamis [facility] 13:54:00 [facility] POCT-GLUCOSE METER 2023-05-10 Yoder, Shamis [facility] 09:24:00 [facility] CBC W/PLT COUNT & AUTO 2023-05-10 Yoder, Shamis [facility] 03:35:00 [facility] COMPREHENSIVE METABOLIC PANEL 2023-05-10 Yoder, Shamis [facility] 03:35:00 [facility] MAGNESIUM 2023-05-10 Yoder, Shamis [facility] 03:35:00 [facility] CBC W/PLT COUNT & AUTO 2023-05-10 Yoder, Shamis [facility] 03:35:00 [facility] POCT-GLUCOSE METER 2023-05-09 Yoder, Shamis [facility] 20:44:00 [facility] POCT-GLUCOSE METER 2023-05-09 Yoder, Shamis [facility] 16:35:00 [facility] POCT-GLUCOSE METER 2023-05-09 Yoder, Shamis [facility] 13:23:00 [facility] POCT-GLUCOSE METER 2023-05-09 Yoder, Shamis [facility] 09:11:00 [facility] CBC W/PLT COUNT & AUTO 2023-05-09 Yoder, Shamis [facility] 03:48:00 [facility] COMPREHENSIVE METABOLIC PANEL 2023-05-09 Yoder, Shamis [facility] 03:48:00 [facility] MAGNESIUM 2023-05-09 Yoder, Shamis [facility] 03:48:00 [facility] CBC W/PLT COUNT & AUTO 2023-05-09 Yoder, Shamis [facility] 03:48:00 [facility] POCT-GLUCOSE METER 2023-05-08 Yoder, Shamis [facility] 20:58:00 [facility] POCT-GLUCOSE METER 2023-05-08 Yoder, Shamis [facility] 17:26:00 [facility] POCT-GLUCOSE METER 2023-05-08 Yoder, Shamis [facility] 12:14:00 [facility] COMPREHENSIVE METABOLIC PANEL 2023-05-08 Yoder, Shamis [facility] 10:08:00 [facility] POCT-GLUCOSE METER 2023-05-08 Yoder, Shamis [facility] 07:21:00 [facility] CBC W/PLT COUNT & AUTO 2023-05-08 Yoder, Shamis [facility] 05:09:00 [facility] MAGNESIUM 2023-05-08 Yoder, Shamis [facility] 05:09:00 [facility] CREATINE KINASE (CK) 2023-05-[address] [facility] 05:09:00 [facility] CBC W/PLT COUNT & AUTO 2023-05-08 Yoder, Shamis [facility] 05:09:00 [facility] CT BRAIN WITHOUT IV CONTRAST 2023-05-07 Yoder, Shamis [facility] 23:22:07 [facility] POCT-GLUCOSE METER 2023-05-07 Yoder, Shamis [facility] 13:29:00 [facility] POCT-GLUCOSE METER 2023-05-07 Yoder, Shamis [facility] 07:40:00 [facility] CBC W/PLT COUNT & AUTO 2023-05-07 Yoder, Shamis [facility] 03:35:00 [facility] COMPREHENSIVE METABOLIC PANEL 2023-05-07 Yoder, Shamis [facility] 03:35:00 [facility] MAGNESIUM 2023-05-07 Yoder, Shamis [facility] 03:35:00 [facility] CBC W/PLT COUNT & AUTO 2023-05-07 Yoder, Shamis [facility] 03:35:00 [facility] POCT-GLUCOSE METER 2023-05-06 Yoedr, Shamis [facility] 21:13:00 [facility] POCT-GLUCOSE METER 2023-05-06 Yoder, Shamis [facility] 16:42:00 [facility] POCT-GLUCOSE METER 2023-05-06 Yoder, Shamis [facility] 12:56:00 [facility] POCT-GLUCOSE METER 2023-05-06 Yoder, Shamis [facility] 07:34:00 [facility] CBC W/PLT COUNT & AUTO 2023-05-06 Civunigunta, [facility] 03:34:00 [facility] COMPREHENSIVE METABOLIC PANEL 2023-05-06 Civunigunta, [facility] 03:34:00 [facility] CREATINE KINASE (CK) 2023-05-[address] [facility] 03:34:00 [facility] CBC W/PLT COUNT & AUTO 2023-05-06 Civunigunta, [facility] 03:34:00 [facility] POCT-GLUCOSE METER 2023-05-05 Yoder, Shamis [facility] 21:47:00 [facility] POCT-GLUCOSE METER 2023-05-05 Yoder, Shamis [facility] 17:15:00 [facility] POCT-GLUCOSE METER 2023-05-05 Yoder, Shamis [facility] 12:28:00 [facility] POCT-GLUCOSE METER 2023-05-05 Yoder, Shamis [facility] 08:48:00 [facility] CBC W/PLT COUNT & AUTO 2023-05-05 [place]un[place], [facility] 02:30:00 [facility] COMPREHENSIVE METABOLIC PANEL 2023-05-05 [place], [facility] 02:30:00 [facility] CBC W/PLT COUNT & AUTO 2023-05-05 [place]un[place], [facility] 02:30:00 [facility] POCT-GLUCOSE METER 2023-05-04 Civun[place]un[place], [facility] 20:39:00 [facility] POCT-GLUCOSE METER 2023-05-04 Civunigunta, [facility] 17:50:00 [facility] POCT-GLUCOSE METER 2023-05-04 Civunigunta, [facility] 11:03:00 [facility] POCT-GLUCOSE METER 2023-05-04 Civunigunta, [facility] 08:46:00 [facility] CBC W/PLT COUNT & AUTO 2023-05-04 Civunangelitanta, [facility] 05:43:00 [facility] CBC W/PLT COUNT & AUTO 2023-05-04 Gabrielleunangelitanta, [facility] 05:43:00 [facility] BLOOD CULTURE 2023-05-[address] [facility] 04:02:00 [facility] BLOOD CULTURE 2023-05-[address] [facility] 03:52:00 [facility] COMPREHENSIVE METABOLIC PANEL 2023-05-04 Gabrielleunangelitanta, [facility] 03:51:00 [facility] MAGNESIUM 2023-05-04 Civunigunta, [facility] 03:51:00 [facility] PHOSPHORUS 2023-05-04 Civunigunta, [facility] 03:51:00 [facility] POCT-GLUCOSE METER 2023-05-03 Civunigunta, [facility] 20:34:00 [facility] POCT-GLUCOSE METER 2023-05-03 Civunigunta, [facility] 18:48:00 [facility] POCT-GLUCOSE METER 2023-05-03 Civunigunta, [facility] 10:32:00 [facility] CBC W/PLT COUNT & AUTO 2023-05-03 [place]un[place], [facility] 05:16:00 [facility] COMPREHENSIVE METABOLIC PANEL 2023-05-03 [place], [facility] 05:16:00 [facility] MAGNESIUM 2023-05-03 Civunigunta, [facility] 05:16:00 [facility] PHOSPHORUS 2023-05-03 Civunigunta, [facility] 05:16:00 [facility] CBC W/PLT COUNT & AUTO 2023-05-03 Civunigunta, [facility] 05:16:00 [facility] PREPARE LEUKO-REDUCED RBC 2023-05-[address] [facility] 23:55:00 [facility] POCT-GLUCOSE METER 2023-05-02 Gabrielleunelvaa, [facility] 21:19:00 [facility] POCT-GLUCOSE METER 2023-05-02 Emilya, [facility] 17:56:00 [facility] XR ABDOMEN/KUB 1 VIEW PORTABLE 2023-05-[address] [facility] 10:53:00 [facility] POCT-GLUCOSE METER 2023-05-02 Cherrie, [facility] 10:32:00 [facility] CBC W/PLT COUNT & AUTO 2023-05-02 Cherrie, [facility] 04:52:00 [facility] COMPREHENSIVE METABOLIC PANEL 2023-05-02 Cherrie, [facility] 04:52:00 [facility] CBC W/PLT COUNT & AUTO 2023-05-02 Gabriellejanak, [facility] 04:52:00 [facility] POCT-GLUCOSE METER 2023-05-01 Gabriellejanak, [facility] 21:36:00 [facility] POCT-GLUCOSE METER 2023-05-01 Gabriellejanak, [facility] 16:56:00 [facility] HEMOGLOBIN AND HEMATOCRIT 2023-05-01 Brainangelitayudia, [facility] 15:46:00 [facility] CREATINE KINASE (CK) 2023-05-01 Richmond Ly [facility] 15:46:00 [facility] POCT-GLUCOSE METER 2023-05-01 Gabriellesupriyaa, [facility] 12:08:00 [facility] TRANSFUSE LEUKO-REDUCED RED 2023-05-01 [facility] BLOOD CELLS 11:20:00 [facility] POCT-GLUCOSE METER 2023-05-01 Gabrielleunelvaa, [facility] 07:49:00 [facility] CBC W/PLT COUNT & AUTO 2023-05-[address] [facility] 04:52:00 [facility] COMPREHENSIVE METABOLIC PANEL 2023-05-01 Gabrielleunangelitanta, [facility] 04:52:00 [facility] MAGNESIUM 2023-05-01 Gabrielleunangelitayudia, [facility] 04:52:00 [facility] CBC W/PLT COUNT & AUTO 2023-05-[address] [facility] 04:52:00 [facility] PREPARE LEUKO-REDUCED RBC 2023-04-[address] [facility] 23:55:00 [facility] POCT-GLUCOSE METER 2023-04-[address] [facility] 21:56:00 [facility] POCT-GLUCOSE METER 2023-04-[address] [facility] 17:52:00 [facility] US DRAINAGE WITH CATH PLACEMENT 2023-04-[address] [facility] 16:55:35 [facility] FUNGUS CULTURE + SMEAR 2023-04-[address] [facility] 16:29:00 [facility] WOUND CULTURE + GRAM STAIN 2023-04-30 Trent [facility] 16:29:00 [facility] POCT-GLUCOSE METER 2023-04-[address] [facility] 12:15:00 [facility] POCT-GLUCOSE METER 2023-04-[address] [facility] 09:02:00 [facility] BASIC METABOLIC PANEL 2023-04-[address] [facility] 03:54:00 [facility] HEPATIC FUNCTION PANEL 2023-04-[address] [facility] 03:54:00 [facility] PROTHROMBIN TIME/INR 2023-04-[address] [facility] 03:54:00 [facility] MAGNESIUM 2023-04-[address] [facility] 03:54:00 [facility] PHOSPHORUS 2023-04-[address] [facility] 03:54:00 [facility] CBC (HEMOGRAM ONLY) 2023-04-[address] [facility] 03:54:00 [facility] POCT-GLUCOSE METER 2023-04-29 Arif, Alexisr [facility] 21:43:00 [facility] POCT-GLUCOSE METER 2023-04-29 Arif, Alexisr [facility] 18:58:00 [facility] HEMOGLOBIN AND HEMATOCRIT 2023-04-29 Arif, Alexisr [facility] 17:46:00 [facility] TRANSFUSE LEUKO-REDUCED RED 2023-04-29 Arif, Alexisr [facility] BLOOD CELLS 15:00:00 [facility] URINALYSIS W/ REFLEX URINE 2023-04-29 Arif, [facility]ny [facility] CULTURE 13:28:00 [facility] ECG 12-LEAD 2023-04-29 Davin, Gayle [facility] 11:54:19 [facility] ECG 12-LEAD 2023-04-29 Unknown, Hl7 [facility] 11:54:19 [facility] SARS-COV2/INFLUENZA/RSV RT-PCR 2023-04-[address] [facility] 11:49:00 [facility] BLOOD CULTURE 2023-04-[address] [facility] 11:45:00 [facility] TYPE AND SCREEN, AUTOMATED 2023-04-29 Gayle Jin [facility] 11:45:[address] [facility] [address] ABDOMEN/PELVIS WITH IV 2023-04-[address] [facility] CONTRAST 10:39:33 [facility] BLOOD CULTURE 2023-04-[address] [facility] 10:03:00 [facility] BLOOD CULTURE IDENTIFICATION 2023-04-[address] [facility] PANEL 10:03:00 [facility] CBC W/PLT COUNT & AUTO 2023-04-[address] [facility] DIFFERENTIAL 10:03:00 [facility] LACTIC ACID, VENOUS 2023-04-[address] [facility] 10:03:00 [facility] COMPREHENSIVE METABOLIC PANEL 2023-04-29 [address] [facility] 10:03:00 [facility] PROTHROMBIN TIME/INR 2023-04-29 Brualida, Gayle [facility] 10:03:00 [facility] APTT 2023-04-29 Brushakirai, Gayle [facility] 10:03:00 [facility] HIGH SENSITIVITY TROPONIN I 2023-04-29 Brualida, Gayle [facility] 10:03:00 [facility] CBC W/PLT COUNT & AUTO 2023-04-29 Brushakirai, Gayle [facility] 10:03:00 [facility] XR CHEST 1 VIEW PORTABLE / 2023-04-29 Jovannamarialuisa Gayle [facility] BED[facility] 09:53:00 [facility] EKG-SCANNED 2023-04-[address] [facility] 00:00:00 Scanning [facility] IR DRAINAGE CATHETER CHANGE 2023-04-[address] [facility] 16:51:00 [facility] POCT-GLUCOSE METER 2023-04-20 Savjani, Joe [facility] 12:26:00 [facility] CBC W/PLT COUNT & AUTO 2023-04-20 Menon, Yousuf [facility] 10:57:00 [facility] PROTHROMBIN TIME/INR 2023-04-20 Menon, Yousuf [facility] 10:57:00 [facility] APTT 2023-04-20 Menon, Yousuf [facility] 10:57:00 [facility] CBC W/PLT COUNT & AUTO 2023-04-20 Menon, Yousuf [facility] 10:57:00 [facility] POCT-GLUCOSE METER 2023-04-20 Savjani, Joe [facility] 10:49:00 [facility] POCT-GLUCOSE METER 2023-04-06 Gaby, Umar [facility] 11:15:00 [facility] POCT-GLUCOSE METER 2023-04-06 Gaby, Umar [facility] 07:47:00 [facility] CBC W/PLT COUNT & AUTO 2023-04-[address] [facility] 03:31:00 [facility] COMPREHENSIVE METABOLIC PANEL 2023-04-06 Olga, Dillan [facility] 03:31:00 [facility] MAGNESIUM 2023-04-06 Olga, Dillan [facility] 03:31:00 [facility] PHOSPHORUS 2023-04-06 Olga, Dillan [facility] 03:31:00 [facility] CBC W/PLT COUNT & AUTO 2023-04-06 Olga, Dillan [facility] 03:31:00 [facility] POCT-GLUCOSE METER 2023-04-05 Gaby, Umar [facility] 22:25:00 [facility] ECG 12-LEAD 2023-04-05 Abdulkadir, Alexisonjeffery Armando [facility] 19:47:22 [facility] ECG 12-LEAD 2023-04-05 Unknown, Hl7 [facility] 19:47:22 [facility] ECG 12-LEAD 2023-04-05 Unknown, Hl7 [facility] 19:47:01 [facility] ECG 12-LEAD 2023-04-05 Unknown, Hl7 [facility] 19:47:01 [facility] POCT-GLUCOSE METER 2023-04-05 Gaby, Umar [facility] 17:11:00 [facility] POCT-GLUCOSE METER 2023-04-05 Gaby, Umar [facility] 11:39:00 [facility] POCT-GLUCOSE METER 2023-04-05 Gaby, Umar [facility] 07:42:00 [facility] CBC W/PLT COUNT & AUTO 2023-04-05 Olga, Dillan [facility] 05:30:00 [facility] COMPREHENSIVE METABOLIC PANEL 2023-04-05Olga, Dillan [facility] 05:30:00 [facility] MAGNESIUM 2023-04-05 Olga, Dillan [facility] 05:30:00 [facility] PHOSPHORUS 2023-04-05 Olga, Dillan [facility] 05:30:00 [facility] CBC W/PLT COUNT & AUTO 2023-04-05 Olga, Dillan [facility] 05:30:00 [facility] POCT-GLUCOSE METER 2023-04-04 Gaby, Umar [facility] 23:14:00 [facility] POCT-GLUCOSE METER 2023-04-04 Gaby, Umar [facility] 16:40:00 [facility] CBC W/PLT COUNT & AUTO 2023-04-04 Gaby, Umar [facility] 12:34:00 [facility] CBC W/PLT COUNT & AUTO 2023-04-04 Gaby, Umar [facility] 12:34:00 [facility] POCT-GLUCOSE METER 2023-04-04 Gaby, Umar [facility] 11:39:00 [facility] POCT-GLUCOSE METER 2023-04-04 Gaby, Umar [facility] 08:19:00 [facility] CBC W/PLT COUNT & AUTO 2023-04-04 Olga, Dillan [facility] 05:19:00 [facility] COMPREHENSIVE METABOLIC PANEL 2023-04-04 Olga, Dillan [facility] 05:19:00 [facility] MAGNESIUM 2023-04-04 Olga, Dillan [facility] 05:19:00 [facility] PHOSPHORUS 2023-04-04 Olga, Dillan [facility] 05:19:00 [facility] CBC W/PLT COUNT & AUTO 2023-04-04 [facility], Dillan [facility] DIFFERENTIAL 05:19:00 [facility] PREPARE LEUKO-REDUCED RBC 2023-04-03 Olga, Dillan [facility] 23:55:00 [facility] POCT-GLUCOSE METER 2023-04-03 Gaby, Umar [facility] 20:14:00 [facility] POCT-GLUCOSE METER 2023-04-03 Gaby, Umar [facility] 16:03:00 [facility] US DRAINAGE WITH CATH PLACEMENT 2023-04-[address] [facility] 15:33:00 [facility] WOUND CULTURE + GRAM STAIN 2023-04-03 [address] [facility] 15:21:00 [facility] ANAEROBIC CULTURE 2023-04-[address] [facility] 15:21:00 [facility] POCT-GLUCOSE METER 2023-04-[address] [facility] 12:11:00 [facility] POCT-GLUCOSE METER 2023-04-[address] [facility] 07:55:00 [facility] CBC W/PLT COUNT & AUTO 2023-04-03 Olga, [facility]illan [facility] DIFFERENTIAL 05:37:00 [facility] COMPREHENSIVE METABOLIC PANEL 2023-04-03 Olga, Dillan [facility] 05:37:00 [facility] MAGNESIUM 2023-04-03 Olga, Dillan [facility] 05:37:00 [facility] PHOSPHORUS 2023-04-03 Olag, Dillan [facility] 05:37:00 [facility] CBC W/PLT COUNT & AUTO 2023-04-03 Olga, Dillan [facility] DIFFERENTIAL 05:37:00 [facility] POCT-GLUCOSE METER 2023-04-02Olga, Dillan [facility] 22:11:00 [facility] VENOUS DOPPLER LEGS BILATERAL 2023-04-02 Agnes Norman [facility] 18:50:00 [facility] POCT-GLUCOSE METER 2023-04-02Olga, Dillan [facility] 17:14:00 [facility] TRANSFUSE LEUKO-REDUCED RED 2023-04-02Olga, Dillan [facility] BLOOD CELLS 14:30:00 [facility] POCT-GLUCOSE METER 2023-04-02Olga, Dillan [facility] 11:18:00 [facility] TYPE AND SCREEN, AUTOMATED 2023-04-02 Olga, [facility]illan [facility] 10:00:00 [facility] POCT-GLUCOSE METER 2023-04-02 Olga, Dillan [facility] 08:05:00 [facility] CBC W/PLT COUNT & AUTO 2023-04-02 Olga, Dillan [facility] DIFFERENTIAL 03:26:00 [facility] CBC W/PLT COUNT & AUTO 2023-04-02Olga, Dillan [facility] DIFFERENTIAL 03:26:00 [facility] COMPREHENSIVE METABOLIC PANEL 2023-04-02 Olga, Dillan [facility] 03:25:00 [facility] MAGNESIUM 2023-04-02 Olga, Dillan [facility] 03:25:00 [facility] PHOSPHORUS 2023-04-02 Olga, Dillan [facility] 03:25:00 [facility] POCT-GLUCOSE METER 2023-04-01 Olga, Dillan [facility] 20:44:00 [facility] POCT-GLUCOSE METER 2023-04-01 Olga, Dillan [facility] 17:37:00 [facility] URINALYSIS W/ REFLEX URINE 2023-04-01 [facility] C[facility] 17:30:00 [facility] REPORT OF PROCEDURE - ENDOSCOPY 2023-04-[address] [facility] [facility] URL 15:13:37 [facility] [place] ERCP 2023-04-[address] [facility] 14:55:00 [facility] ENDOSCOPIC RETROGRADE 2023-04-01 [facility] CHOLANGIOPANCREATOGRAPHY, WITH 14:23:00 [facility] STENT REMOVAL PROCEDURE W/ C-ARM 2023-04-[address] [facility] 14:23:00 [facility] ERCP, WITH BALLOON SWEEP OF BILE 2023-04-01 [facility] 14:23:00 [facility] ENDOSCOPIC RETROGRADE 2023-04-01 [facility] CHOLANGIOPANCREATOGRAPHY, WITH 14:23:00 [facility] BILE DUCT STENT INSERTION POCT-GLUCOSE METER 2023-04-01 [facility], Dillan [facility] 11:47:00 [facility] POCT-GLUCOSE METER 2023-04-01 [facility], Dillan [facility] 07:32:00 [facility] CBC W/PLT COUNT & AUTO 2023-04-01 [facility], [facility]illan [facility] DIFFERENTIAL 04:36:00 [facility] COMPREHENSIVE METABOLIC PANEL 2023-04-01 [facility], Dillan [facility] 04:36:00 [facility] MAGNESIUM 2023-04-01 [facility], Dillan [facility] 04:36:00 [facility] PHOSPHORUS 2023-04-01 Olga, Dillan [facility] 04:36:00 [facility] CBC W/PLT COUNT & AUTO 2023-04-01Olga, Dillan [facility] DIFFERENTIAL 04:36:00 [facility] POCT-GLUCOSE METER 2023-03-31Olga, Dillan [facility] 21:49:00 [facility] CT ABDOMEN/PELVIS WITH IV 2023-03-[address] [facility] CONTRAST 16:35:00 [facility] POCT-GLUCOSE METER 2023-03-31Olga, Dillan [facility] 16:04:00 [facility] POCT-GLUCOSE METER 2023-03-31Olga, Dillan [facility] 11:48:00 [facility] POCT-GLUCOSE METER 2023-03-31Olga, Dillan [facility] 07:12:00 [facility] CBC W/PLT COUNT & AUTO 2023-03-31Olga, Dillan [facility] DIFFERENTIAL 03:25:00 [facility] COMPREHENSIVE METABOLIC PANEL 2023-03-31Olga, Dillan [facility] 03:25:00 [facility] MAGNESIUM 2023-03-31Olga, Dillan [facility] 03:25:00 [facility] PHOSPHORUS 2023-03-31Olga, Dillan [facility] 03:25:00 [facility] CBC W/PLT COUNT & AUTO 2023-03-31Olga, Dillan [facility] DIFFERENTIAL 03:25:00 [facility] (CELLAVISION MANUAL DIFF) 2023-03-31Olga, Dillan [facility] 03:25:00 [facility] POCT-GLUCOSE METER 2023-03-31Olga, Dillan [facility] 00:44:00 [facility] PREPARE LEUKO-REDUCED RBC 2023-03-30, Dillan [facility] 23:55:00 [facility] POCT-GLUCOSE METER 2023-03-30Olga, Dillan [facility] 17:44:00 [facility] POCT-GLUCOSE METER 2023-03-30 Olga, Dillan [facility] 12:12:00 [facility] POCT-GLUCOSE METER 2023-03-30, Dillan [facility] 07:46:00 [facility] CBC W/PLT COUNT & AUTO 2023-03-30Olga, Dillan [facility] DIFFERENTIAL 04:47:00 [facility] COMPREHENSIVE METABOLIC PANEL 2023-03-30, Dillan [facility] 04:47:00 [facility] MAGNESIUM 2023-03-30, Dillan [facility] 04:47:00 [facility] PHOSPHORUS 2023-03-30, Dillan [facility] 04:47:00 [facility] CBC W/PLT COUNT & AUTO 2023-03-30, [facility]illan [facility] DIFFERENTIAL 04:47:00 [facility] POCT-GLUCOSE METER 2023-03-30, Dillan [facility] 00:11:00 [facility] HEMOGLOBIN AND HEMATOCRIT 2023-03-29, Dillan [facility] 21:08:00 [facility] POCT-GLUCOSE METER 2023-03-29Olga, Dillan [facility] 17:59:00 [facility] TRANSFUSE LEUKO-REDUCED RED 2023-03-29, Dillan [facility] BLOOD CELLS 13:26:00 [facility] POCT-GLUCOSE METER 2023-03-29, Dillan [facility] 13:13:00 [facility] OSI BONE SCAN 2023-03-29 [facility] [place] of 12:39:37 [facility] TYPE AND SCREEN, AUTOMATED 2023-03-29, [facility]illan [facility] 10:07:00 [facility] POCT-GLUCOSE METER 2023-03-29, Dillan [facility] 08:27:00 [facility] POCT-GLUCOSE METER 2023-03-29, Dillan [facility] 07:51:00 [facility] CBC W/PLT COUNT & AUTO 2023-03-29, [facility]illan [facility] DIFFERENTIAL 06:38:00 [facility] CBC W/PLT COUNT & AUTO 2023-03-29Olga, Dillan [facility] DIFFERENTIAL 06:38:00 [facility] COMPREHENSIVE METABOLIC PANEL 2023-03-29Olga, Dillan [facility] 04:51:00 [facility] MAGNESIUM 2023-03-29Olga, Dillan [facility] 04:51:00 [facility] PHOSPHORUS 2023-03-29Olga, Dillan [facility] 04:51:00 [facility] POCT-GLUCOSE METER 2023-03-28Olga, Dillan [facility] 23:49:00 [facility] POCT-GLUCOSE METER 2023-03-28Olga, Dillan [facility] 16:14:00 [facility] OSMOLALITY, SERUM 2023-03-28 Marybel, [facility] 15:33:00 [facility] CBC W/PLT COUNT & AUTO 2023-03-28 Marybel, [facility] DIFFERENTIAL 15:33:00 [facility] CBC W/PLT COUNT & AUTO 2023-03-28 Marybel, [facility] DIFFERENTIAL 15:33:00 [facility] OSMOLALITY, URINE 2023-03-28 Marybel, [facility] 14:09:00 [facility] SODIUM, RANDOM URINE 2023-03-28 Marybel, [facility] 14:09:00 [facility] POCT-GLUCOSE METER 2023-03-28Olga, Dillan [facility] 12:08:00 [facility] POCT-GLUCOSE METER 2023-03-28Olga, Dillan [facility] 07:45:00 [facility] BLOOD CULTURE 2023-03-[address] [facility] 04:27:00 [facility] CBC W/PLT COUNT & AUTO 2023-03-28Olga, Dillan [facility] DIFFERENTIAL 04:16:00 [facility] COMPREHENSIVE METABOLIC PANEL 2023-03-28Olga, Dillan [facility] 04:16:00 [facility] MAGNESIUM 2023-03-28Olga, Dillan [facility] 04:16:00 [facility] PHOSPHORUS 2023-03-28 Olga, Dillan [facility] 04:16:00 [facility] BILIRUBIN, DIRECT 2023-03-[address] [facility] 04:16:00 [facility] CBC W/PLT COUNT & AUTO 2023-03-28Olga, Dillan [facility] DIFFERENTIAL 04:16:00 [facility] BLOOD CULTURE 2023-03-28 Maurisio Christina Ethel [facility] 04:14:00 [facility] POCT-GLUCOSE METER 2023-03-27 [facility], Dillan [facility] 21:37:00 [facility] POCT-GLUCOSE METER 2023-03-27Olga, Dillan [facility] 17:12:00 [facility] POCT-GLUCOSE METER 2023-03-27Olga, Dillan [facility] 11:45:00 [facility] POCT-GLUCOSE METER 2023-03-27Olga, Dillan [facility] 07:22:00 [facility] CBC W/PLT COUNT & AUTO 2023-03-27Olga, Dillan [facility] DIFFERENTIAL 04:34:00 [facility] COMPREHENSIVE METABOLIC PANEL 2023-03-27Olga, Dillan [facility] 04:34:00 [facility] MAGNESIUM 2023-03-27Olga, Dillan [facility] 04:34:00 [facility] PHOSPHORUS 2023-03-27Olga, Dillan [facility] 04:34:00 [facility] CBC W/PLT COUNT & AUTO 2023-03-27Olga, Dillan [facility] DIFFERENTIAL 04:34:00 [facility] POCT-GLUCOSE METER 2023-03-26Olga, Dillan [facility] 22:31:00 [facility] POCT-GLUCOSE METER 2023-03-26Olga, Dillan [facility] 17:18:00 [facility] POCT-GLUCOSE METER 2023-03-26 Olga, Dillan [facility] 12:35:00 [facility] VANCOMYCIN LEVEL, TROUGH 2023-03-[address] [facility] 08:27:00 [facility] POCT-GLUCOSE METER 2023-03-26 [facility], Dillan [facility] 07:52:00 [facility] CBC W/PLT COUNT & AUTO 2023-03-26 Olga, Dillan [facility] DIFFERENTIAL 04:21:00 [facility] COMPREHENSIVE METABOLIC PANEL 2023-03-26 [facility], [facility]illan [facility] 04:21:00 [facility] MAGNESIUM 2023-03-26 Olga, Dillan [facility] 04:21:00 [facility] PHOSPHORUS 2023-03-26 Olga, Dillan [facility] 04:21:00 [facility] CBC W/PLT COUNT & AUTO 2023-03-26 Olga, Dillan [facility] DIFFERENTIAL 04:21:00 [facility] (CELLAVISION MANUAL DIFF) 2023-03-26 [facility], Dillan [facility] 04:21:00 [facility] PREPARE LEUKO-REDUCED PLATELETS 2023-03-[address] [facility] 23:55:00 [facility] POCT-GLUCOSE METER 2023-03-25 [facility], Dillan [facility] 23:09:00 [facility] POCT-GLUCOSE METER 2023-03-25 [facility], Dillan [facility] 18:22:00 [facility] CT BIOPSY ABDOMEN 2023-03-[address] [facility] 17:50:00 [facility] WOUND CULTURE + GRAM STAIN 2023-03-25 Mehul Morrison [facility] 17:34:00 [facility] POCT-GLUCOSE METER 2023-03-25 [facility], Dillan [facility] 10:54:00 [facility] POCT-GLUCOSE METER 2023-03-25 [facility], Dillan [facility] 07:12:00 [facility] CBC W/PLT COUNT & AUTO 2023-03-25 Marybel, [facility] DIFFERENTIAL 04:07:00 [facility] COMPREHENSIVE METABOLIC PANEL 2023-03-25 Marybel, [facility] 04:07:00 [facility] MAGNESIUM 2023-03-25 Marybel, [facility] 04:07:00 [facility] PHOSPHORUS 2023-03-25 Marybel, [facility] 04:07:00 [facility] IRON, TIBC, % SAT. (WITHOUT 2023-03-25 Marybel, [facility] FERRITIN) 04:07:00 [facility] FERRITIN 2023-03-25 Marybel, [facility] 04:07:00 [facility] CBC W/PLT COUNT & AUTO 2023-03-[address] [facility] [facility] DIFFERENTIAL 04:07:00 [facility] (CELLAVISION MANUAL DIFF) 2023-03-[address] [facility] 04:07:00 [facility] US ABDOMEN LIMITED 2023-03-24 Colbert, Hero Jennifer [facility] 22:52:00 [facility] POCT-GLUCOSE METER 2023-03-24 [facility], Dillan [facility] 21:53:00 [facility] POCT-GLUCOSE METER 2023-03-24 [facility], Dillan [facility] 18:41:00 [facility] REPORT OF PROCEDURE - ENDOSCOPY 2023-03-[address] [facility] URL 18:32:33 [facility] [place] ERCP 2023-03-24 Sumi, Cassandra [facility] 18:24:00 [facility] TRANSFUSE LEUKO-REDUCED 2023-03-24 Minor, Dasha [facility] PLATELETS 17:47:00 [facility] ENDOSCOPIC RETROGRADE 2023-03-24 Sumi, Cassandra [facility] CHOLANGIOPANCREATOGRAPHY 17:08:00 [facility] (ENDOSCOPIC RETROGRADE CHOLANGIOPANCREATOGRAPHY) PROCEDURE W/ C-ARM 2023-03-24 Sumi, Cassandra [facility] 17:08:00 [facility] ERCP, WITH BALLOON SWEEP OF BILE 2023-03-[address] [facility] DUCTS 17:08:00 [facility] ENDOSCOPIC RETROGRADE 2023-03-24 Sumi, Cassandra [facility] CHOLANGIOPANCREATOGRAPHY, WITH 17:08:[address] [facility] STENT REMOVAL ENDOSCOPIC RETROGRADE 2023-03-[address] [facility] CHOLANGIOPANCREATOGRAPHY, WITH 17:08:00 [facility] BILE DUCT STENT INSERTION POCT-GLUCOSE METER 2023-03-[address] [facility] 16:47:00 [facility] ECG 12-LEAD 2023-03-24 Colbert, Hero Jennifer [facility] 14:11:18 [facility] ECG 12-LEAD 2023-03-24 Unknown, Hl7 [facility] 14:11:[address] [facility] [address] ABDOMEN/PELVIS WITH IV 2023-03-24 Colbert, Hero Philliph [facility] CONTRAST 13:28:00 [facility] URINALYSIS W/ REFLEX URINE 2023-03-24 Colbert, Hero Jennifer [facility] CULTURE 12:59:00 [facility] BLOOD CULTURE 2023-03-24 Colbert, Hero Jennifer [facility] 12:16:00 [facility] TYPE AND SCREEN, AUTOMATED 2023-03-24 Colbert, Hero Jennifer [facility] 12:16:00 [facility] XR CHEST 1 VIEW PORTABLE / 2023-03-24 Colbert, Hero Jennifer [facility] BEDSIDE 11:44:00 [facility] BLOOD CULTURE 2023-03-24 Colbert, Hero Jennifer [facility] 11:42:00 [facility] BLOOD CULTURE IDENTIFICATION 2023-03-24 Colbert, Hero Jennifer [facility] PANEL 11:42:00 [facility] CBC W/PLT COUNT & AUTO 2023-03-24 Colbert, Hero Jennifer [facility] DIFFERENTIAL 11:42:00 [facility] LACTIC ACID, VENOUS 2023-03-24 Colbert, Hero Jennifer [facility] 11:42:00 [facility] COMPREHENSIVE METABOLIC PANEL 2023-03-24 Colbert, Hero Jennifer [facility] 11:42:00 [facility] PROTHROMBIN TIME/INR 2023-03-24 Colbert, Hero Jennifer [facility] 11:42:00 [facility] APTT 2023-03-24 Colbert, Hero Jennifer [facility] 11:42:00 [facility] HIGH SENSITIVITY TROPONIN I 2023-03-24 Colbert, Hero Jennifer [facility] 11:42:00 [facility] LIPASE 2023-03-[address] [facility] 11:42:00 [facility] CREATINE KINASE (CK) 2023-03-24 Marybel, [facility] 11:42:00 [facility] BILIRUBIN, DIRECT 2023-03-24 Marybel, [facility] 11:42:00 [facility] CBC W/PLT COUNT & AUTO 2023-03-[address] [facility] [facility] DIFFERENTIAL 11:42:00 [facility] (CELLAVISION MANUAL DIFF) 2023-03-24 ColbertHero [facility] 11:42:00 [facility] SCREEN, URINE 2023-03-24 Brady, Tannaz [facility] 08:38:00 [facility] CBC W/PLT COUNT & AUTO 2023-03-24 Brady, Tannaz [facility] DIFFERENTIAL 08:37:00 [facility] COMPREHENSIVE METABOLIC PANEL 2023-03-24 Brady, Tannaz [facility] 08:37:00 [facility] MAGNESIUM 2023-03-24 Brady, Tannaz [facility] 08:37:00 [facility] CARCINOEMBRYONIC ANTIGEN (CEA) 2023-03-24 Brady, Tannaz [facility] 08:37:00 [facility] CBC W/PLT COUNT & AUTO 2023-03-24 Brady, Tannaz [facility] DIFFERENTIAL 08:37:00 [facility] (MANUAL DIFFERENTIAL) 2023-03-24 Brady, Tannaz [facility] 08:37:00 [facility] EKG-SCANNED 2023-03-24 Provider, Default [facility] 00:00:00 Scanning [facility] CBC W/PLT COUNT & AUTO 2023-03-10 Brady, Tannaz [facility] DIFFERENTIAL 08:25:00 [facility] COMPREHENSIVE METABOLIC PANEL 2023-03-10 Minoy, Tannaz [facility] 08:25:00 [facility] MAGNESIUM 2023-03-10 Brady, Tannaz [facility] 08:25:00 [facility] CARCINOEMBRYONIC ANTIGEN (CEA) 2023-03-10 Minoy, Tannaz [facility] 08:25:00 [facility] CBC W/PLT COUNT & AUTO 2023-03-10 Armaghany, Tannaz [facility] DIFFERENTIAL 08:25:[address] [facility] [address] ABDOMEN AND PELVIS 2023-03-04 Nuñez Melaniemax Beck rsity of 02:48:[address] [facility] ABDOMEN/PELVIS WITH IV 2023-03-03 Anabelle, Ahmed [facility] CONTRAST 15:52:59 [facility] CBC W/PLT COUNT & AUTO 2023-02-24 Armagdottyy, Tannaz [facility] DIFFERENTIAL 08:09:00 [facility] COMPREHENSIVE METABOLIC PANEL 2023-02-24 [facility] Tannaz [facility] 08:09:00 [facility] MAGNESIUM 2023-02-24 Armagdottyy, Tannaz [facility] 08:09:00 [facility] CARCINOEMBRYONIC ANTIGEN (CEA) 2023-02-24 Marycarmenmary ellenmax, Tannaz [facility] 08:09:00 [facility] CBC W/PLT COUNT & AUTO 2023-02-24 Armmary elleny, Tannaz [facility] DIFFERENTIAL 08:09:00 [facility] POCT-GLUCOSE METER 2023-02-07 Anabelle, Ahmed [facility] 12:34:00 [facility] POCT-GLUCOSE METER 2023-02-07 Anabelle, Ahmed [facility] 08:17:00 [facility] POCT-GLUCOSE METER 2023-02-06 Anabelle, Ahmed [facility] 22:14:00 [facility] POCT-GLUCOSE METER 2023-02-06 Anabelle, Ahmed [facility] 17:16:00 [facility] POCT-GLUCOSE METER 2023-02-06 Anabelle, Ahmed [facility] 12:09:00 [facility] POCT-GLUCOSE METER 2023-02-06 Anabelle, Ahmed [facility] 08:02:00 [facility] POCT-GLUCOSE METER 2023-02-05 Anabelle, Ahmed [facility] 20:23:00 [facility] POCT-GLUCOSE METER 2023-02-05 Anabelle, Ahmed [facility] 17:56:00 [facility] POCT-GLUCOSE METER 2023-02-05 Anabelle, Ahmed [facility] 11:34:00 [facility] POCT-GLUCOSE METER 2023-02-05 Anabelle, Ahmed [facility] 07:46:00 [facility] CBC (HEMOGRAM ONLY) 2023-02-05 Anabelle, Ahmed [facility] 05:05:00 [facility] BASIC METABOLIC PANEL 2023-02-05 Anabelle, Ahmed [facility] 05:05:00 [facility] POCT-GLUCOSE METER 2023-02-04 Anabelle, Ahmed [facility] 21:22:00 [facility] POCT-GLUCOSE METER 2023-02-04 Anabelle, Ahmed [facility] 17:47:00 [facility] WOUND CULTURE + GRAM STAIN 2023-02-04 Mary Roberts [facility] 16:57:00 [facility] [employer] CULTURE + SMEAR (NON-SPUTUM) 2023-02-[address] [facility] 16:57:00 [facility] ANAEROBIC CULTURE 2023-02-[address] [facility] 16:57:00 [facility] US DRAINAGE WITH CATH PLACEMENT 2023-02-[address] [facility] 16:56:00 [facility] POCT-GLUCOSE METER 2023-02-04 Anabelle, Ahmed [facility] 13:14:00 [facility] BASIC METABOLIC PANEL 2023-02-[address] [facility] [facility] 17:49:00 [facility] MAGNESIUM 2023-02-[address] [facility] 17:49:00 [facility] PHOSPHORUS 2023-02-[address] [facility] 17:49:00 [facility] PROTHROMBIN TIME/INR 2023-02-[address] [facility] 11:40:00 [facility] POCT-GLUCOSE METER 2023-02-03 Anabelle, Rubinmed [facility] 10:53:00 [facility] BASIC METABOLIC PANEL 2023-02-[address] [facility] [facility] 04:11:00 [facility] MAGNESIUM 2023-02-03 Armando, Mary [facility] 04:11:00 [facility] PHOSPHORUS 2023-02-[address] [facility] 04:11:00 [facility] HEPATIC FUNCTION PANEL 2023-02-[address] [facility] 04:11:00 [facility] CBC W/PLT COUNT & AUTO 2023-02-[address] [facility] DIFFERENTIAL 04:11:00 [facility] CALCIUM, IONIZED 2023-02-[address] [facility] 04:11:00 [facility] CBC W/PLT COUNT & AUTO 2023-02-[address] [facility] DIFFERENTIAL 04:11:00 [facility] POCT-GLUCOSE METER 2023-02-[address] [facility] 22:00:00 [facility] BASIC METABOLIC PANEL 2023-02-[address] [facility] 17:52:00 [facility] MAGNESIUM 2023-02-[address] [facility] 17:52:00 [facility] PHOSPHORUS 2023-02-[address] [facility] 17:52:[address] [facility] [address] ABDOMEN/PELVIS WITH IV 2023-02-[address] [facility] CONTRAST 14:50:[address] [facility] [address] ABDOMEN AND PELVIS 2023-02-02 Melanie Nuñez [facility] rsity of 12:36:00 [facility] CHEST 2023-02-02 NuñezMelanie arias [place] of 12:36:00 [place] [facility] CBC W/PLT COUNT & AUTO 2023-02-[address] [facility] DIFFERENTIAL 04:45:00 [facility] BASIC METABOLIC PANEL 2023-02-[address] 04:45:00 [facility] MAGNESIUM 2023-02-[address] [facility] 04:45:00 [facility] PHOSPHORUS 2023-02-[address] [facility] 04:45:00 [facility] LACTIC ACID, VENOUS 2023-02-02 Lázaro, Jeovany [facility] 04:45:00 [facility] HEPATIC FUNCTION PANEL 2023-02-[address] [facility] 04:45:00 [facility] CBC W/PLT COUNT & AUTO 2023-02-[address] [facility] DIFFERENTIAL 04:45:00 [facility] XR CHEST 1 VIEW PORTABLE / 2023-02-02 Denver Sanders [facility] BEDSIDE 00:26:00 [facility] LACTIC ACID, VENOUS 2023-02-02 Lázaro, Jeovany [facility] 00:12:00 [facility] LACTIC ACID, VENOUS 2023-02-01 Lázaro, Jeovany [facility] 12:51:00 [facility] HEPATIC FUNCTION PANEL 2023-02-01 Lázaro, Jeovany [facility] 12:51:00 [facility] BASIC METABOLIC PANEL 2023-02-[address] [facility] 12:51:00 [facility] MAGNESIUM 2023-02-[address] [facility] 12:51:00 [facility] PHOSPHORUS 2023-02-[address] [facility] 12:51:00 [facility] BLOOD CULTURE 2023-02-01 Lázaro, Jeovany [facility] 12:46:00 [facility] OSI CHEST 2023-02-01 [facility] [place] of 12:36:00 [facility] ECHO W CONTRAST & DOPPLER 2023-02-[address] [facility] 10:35:29 [facility] VANCOMYCIN LEVEL, TROUGH 2023-02-01 Tomás Combs [facility] 08:13:00 [facility] CBC W/PLT COUNT & AUTO 2023-02-[address] [facility] DIFFERENTIAL 04:53:00 [facility] BASIC METABOLIC PANEL 2023-02-[address] [facility] 04:53:00 [facility] MAGNESIUM 2023-02-[address] [facility] 04:53:00 [facility] PHOSPHORUS 2023-02-[address] [facility] 04:53:00 [facility] LACTIC ACID, VENOUS 2023-02-01 Lázaro, Jeovany [facility] 04:53:00 [facility] CBC W/PLT COUNT & AUTO 2023-02-[address] [facility] DIFFERENTIAL 04:53:00 [facility] (CELLAVISION MANUAL DIFF) 2023-02-[address] [facility] 04:53:00 [facility] XR CHEST 1 VIEW PORTABLE / 2023-02-01 [place] [facility] BEDSIDE 04:22:00 [facility] LACTIC ACID, VENOUS 2023-01-31 Lázaro, Jeovany [facility] 21:30:00 [facility] CALCIUM, IONIZED 2023-01-31 Radha, Felipa [facility] 15:47:00 [facility] MAGNESIUM 2023-01-31 Radha, Felpia [facility] 15:47:00 [facility] PHOSPHORUS 2023-01-31 Radha, Felipa [facility] 15:47:00 [facility] CBC W/PLT COUNT & AUTO 2023-01-31 Radha, Felipa [facility] DIFFERENTIAL 15:47:00 [facility] VANCOMYCIN LEVEL, RANDOM 2023-01-31 Radha, Felipa [facility] 15:47:00 [facility] LACTIC ACID, VENOUS 2023-01-31 Lázaro, Jeovany [facility] 15:47:00 [facility] BASIC METABOLIC PANEL 2023-01-[address] [facility] 15:47:00 [facility] CBC W/PLT COUNT & AUTO 2023-01-31 Radha, Felipa [facility] DIFFERENTIAL 15:47:00 [facility] US ABDOMEN LIMITED 2023-01-[address] [facility] 13:51:00 [facility] OSI US ABDOMINAL COMPLETE 2023-01-31 Melanie Nuñez rsity of 12:37:00 [facility] LACTIC ACID, VENOUS 2023-01-31 Lázaro, Jeovany [facility] 12:34:00 [facility] ECG 12-LEAD 2023-01-[address] [facility] 05:40:27 [facility] ECG 12-LEAD 2023-01-31 Unknown, Hl7 [facility] 05:40:27 [facility] CORTISOL 2023-01-31 Senussi, [place] [facility] 05:23:00 [facility] TSH/FREE T4 IF INDICATED 2023-01-[address] [facility] 05:23:00 [facility] HIGH SENSITIVITY TROPONIN I 2023-01-31 Tommy, [place] [facility] 05:23:00 [facility] T4, FREE 2023-01-[address] [facility] 05:23:00 [facility] BLOOD CULTURE 2023-01-31 Senyulissa, [place] [facility] 05:15:00 [facility] BLOOD CULTURE IDENTIFICATION 2023-01-[address] [facility] PANEL 05:15:00 [facility] POCT-GLUCOSE METER 2023-01-[address] [facility] 05:13:00 [facility] COMPREHENSIVE METABOLIC PANEL 2023-01-31 [place] [facility] 04:38:00 [facility] CBC W/PLT COUNT & AUTO 2023-01-[address] [facility] DIFFERENTIAL 04:38:00 [facility] MAGNESIUM 2023-01-31 Sensantosi, [place] [facility] 04:38:00 [facility] LACTIC ACID, VENOUS 2023-01-31 Sensantosi, [place] [facility] 04:38:00 [facility] PT/APTT 2023-01-[address] [place] [facility] 04:38:00 [facility] B-TYPE NATRIURETIC FACTOR (BNP) 2023-01-31 Senussi, [place] [facility] 04:38:00 [facility] CALCIUM, IONIZED 2023-01-31 Senussi, [place] [facility] 04:38:00 [facility] LIPASE 2023-01-[address] [facility] 04:38:00 [facility] CBC W/PLT COUNT & AUTO 2023-01-31 Senussi, [place] [facility] DIFFERENTIAL 04:38:00 [facility] (CELLAVISION MANUAL DIFF) 2023-01-31 Senussi, [place] [facility] 04:38:00 [facility] EKG-SCANNED 2023-01-31 Provider, Default [facility] 00:00:00 Scanning [facility] CBC W/PLT COUNT & AUTO 2023-01-27 Armnasrin, Tannaz [facility] DIFFERENTIAL 08:46:00 [facility] COMPREHENSIVE METABOLIC PANEL 2023-01-27 Armcodeyhany, Tannaz [facility] 08:46:00 [facility] MAGNESIUM 2023-01-27 Armmary elleny, Tannaz [facility] 08:46:00 [facility] CARCINOEMBRYONIC ANTIGEN (CEA) 2023-01-27 Armmary elleny, Tannaz [facility] 08:46:00 [facility] CORTISOL 2023-01-27 Armmary elleny, Tannaz [facility] 08:46:00 [facility] CBC W/PLT COUNT & AUTO 2023-01-27 Brady, Tannaz [facility] DIFFERENTIAL 08:46:00 [facility] CBC W/PLT COUNT & AUTO 2023-01-13 Brady, Tannaz [facility] DIFFERENTIAL 09:22:00 [facility] COMPREHENSIVE METABOLIC PANEL 2023-01-13 Armmary elleny, Tannaz [facility] 09:22:00 [facility] MAGNESIUM 2023-01-13 Brady, Tannaz [facility] 09:22:00 [facility] CARCINOEMBRYONIC ANTIGEN (CEA) 2023-01-13 Armnasrin, Tannaz [facility] 09:22:00 [facility] CBC W/PLT COUNT & AUTO 2023-01-13 Brady, Tannaz [facility] DIFFERENTIAL 09:22:00 [facility] CBC W/PLT COUNT & AUTO 2022-12-30 Armmary elleny, Tannaz [facility] DIFFERENTIAL 09:02:00 [facility] COMPREHENSIVE METABOLIC PANEL 2022-12-30 Armcodeyhany, Tannaz [facility] 09:02:00 [facility] MAGNESIUM 2022-12-30 Minoy, Tannaz [facility] 09:02:00 [facility] CARCINOEMBRYONIC ANTIGEN (CEA) 2022-12-30 Armcodeyhany, Tannaz [facility] 09:02:00 [facility] CBC W/PLT COUNT & AUTO 2022-12-30 Armmary elleny, Tannaz [facility] DIFFERENTIAL 09:02:00 [facility] OSI MRI ABDOMEN 2022-12-23 [facility] 12:[facility]00 [place] [facility] CHEST 2022-12-23 Joaquin Melanie [place] of 12:37:00 [place] [facility] MR ABDOMEN WITH & WITHOUT IV 2022-12-23 Brady [address]iesam[address] Castro [facility] CONTRAST 11:30:00 [facility] CT CHEST WITH IV CONTRAST 2022-12-[address] [facility] 09:37:43 [facility] CBC W/PLT COUNT & AUTO 2022-12-[address] [facility] DIFFERENTIAL 10:44:00 [facility] COMPREHENSIVE METABOLIC PANEL 2022-12-[address] [facility] 10:44:00 [facility] MAGNESIUM 2022-12-[address] [facility] 10:44:00 [facility] CARCINOEMBRYONIC ANTIGEN (CEA) 2022-12-[address] [facility] 10:44:00 [facility] CBC W/PLT COUNT & AUTO 2022-12-[address] [facility] DIFFERENTIAL 10:44:00 [facility] CBC W/PLT COUNT & AUTO 2022-12-[address] [facility] DIFFERENTIAL 11:22:00 [facility] COMPREHENSIVE METABOLIC PANEL 2022-12-[address] [facility] 11:22:00 [facility] MAGNESIUM 2022-12-[address] [facility] 11:22:00 [facility] CARCINOEMBRYONIC ANTIGEN (CEA) 2022-12-[address] [facility] 11:22:00 [facility] CBC W/PLT COUNT & AUTO 2022-12-[address] [facility] DIFFERENTIAL 11:22:00 [facility] (MANUAL DIFFERENTIAL) 2022-12-[address] [facility] [facility] 11:22:00 [facility] CBC W/PLT COUNT & AUTO 2022-11-[address] [facility] DIFFERENTIAL 08:35:00 [facility] COMPREHENSIVE METABOLIC PANEL 2022-11-18 Brady, Tannaz [facility] 08:35:00 [facility] MAGNESIUM 2022-11-[address] [facility] 08:35:00 [facility] CARCINOEMBRYONIC ANTIGEN (CEA) 2022-11-18 Armmary elleny, Tannaz [facility] 08:35:00 [facility] CBC W/PLT COUNT & AUTO 2022-11-[address] [facility] DIFFERENTIAL 08:35:00 [facility] (MANUAL DIFFERENTIAL) 2022-11-18 Brady, [facility]annaz [facility] 08:35:00 [facility] CBC W/PLT COUNT & AUTO 2022-11-[address] [facility] DIFFERENTIAL 09:40:00 [facility] COMPREHENSIVE METABOLIC PANEL 2022-11-03 Brady, Tannaz [facility] 09:40:00 [facility] MAGNESIUM 2022-11-[address] [facility] 09:40:00 [facility] CARCINOEMBRYONIC ANTIGEN (CEA) 2022-11-03 Brady, Tannaz [facility] 09:40:00 [facility] CBC W/PLT COUNT & AUTO 2022-11-[address] [facility] DIFFERENTIAL 09:40:00 [facility] (MANUAL DIFFERENTIAL) 2022-11-[address] [facility] 09:40:00 [facility] CTA CHEST FOR PULMONARY EMBOLUS 2022-10-[address] [facility] 13:55:00 [facility] OSI CHEST 2022-10-13 Melanie Nuñez [place] of 12:38:00 [place] [facility] CHEST 2022-10-13 Melanie Nuñez [place] of 12:37:00 [place] [facility] Birminghams[facility] XR CHEST 1 VIEW PORTABLE / 2022-10-13 Gayle Jin [facility] BED[facility] 12:21:00 [facility] CBC W/PLT COUNT & AUTO 2022-10-[address] [facility] DIFFERENTIAL 12:16:00 [facility] COMPREHENSIVE METABOLIC PANEL 2022-10-[address] [facility] 12:16:00 [facility] B-TYPE NATRIURETIC FACTOR (BNP) 2022-10-[address] [facility] 12:16:00 [facility] HIGH SENSITIVITY TROPONIN I 2022-10-[address] [facility] 12:16:00 [facility] PT/APTT 2022-10-[address] [facility] 12:16:00 [facility] D-DIMER 2022-10-[address] [facility] 12:16:00 [facility] MAGNESIUM 2022-10-[address] [facility] 12:16:00 [facility] CBC W/PLT COUNT & AUTO 2022-10-[address] [facility] DIFFERENTIAL 12:16:00 [facility] (CELLAVISION MANUAL DIFF) 2022-10-[address] [facility] 12:16:00 [facility] ECG 12-LEAD 2022-10-13 Unknown, Hl7 [facility] 10:32:42 [facility] ECG 12-LEAD 2022-10-13 Unknown, Hl7 [facility] 10:32:42 [facility] EKG-SCANNED 2022-10-13 Provider, Mayra [facility] 00:00:00 Scanning [facility] OSI MRI ABDOMEN 2022-09-16 Melanie Nuñez [place] of 12:38:00 [place] Desmond abarca [facility] OSI CT CHEST 2022-09-16 Melanie Nuñez [place] of 12:38:00 [place] [facility] Birminghamsuman abarca [facility] CT CHEST WITH IV CONTRAST 2022-09-[address] [facility] 09:15:00 [facility] MR ABDOMEN WITH & WITHOUT IV 2022-09-[address] [facility] CONTRAST 08:59:00 [facility] POCT-CREATININE 2022-09-[address] [facility] 08:12:00 [facility] POCT-GLUCOSE METER 2022-08-[address] [facility] 07:39:00 [facility] COMPREHENSIVE METABOLIC PANEL 2022-08-08 Arif, [facility] 06:55:00 [facility] CBC (HEMOGRAM ONLY) 2022-08-08 Arif, Brittny [facility] 06:55:00 [facility] POCT-GLUCOSE METER 2022-08-07 Arif, Alexisr [facility] 21:02:00 [facility] POCT-GLUCOSE METER 2022-08-07 Arif, Alexisr [facility] 11:38:00 [facility] POCT-GLUCOSE METER 2022-08-07 Arif, Alexisr [facility] 10:00:00 [facility] REPORT OF PROCEDURE - ENDOSCOPY 2022-08-[address] [facility] URL 09:46:39 [facility] [place] ERCP 2022-08-[address] [facility] 09:37:00 [facility] ENDOSCOPIC RETROGRADE 2022-08-[address] [facility] CHOLANGIOPANCREATOGRAPHY, WITH 09:05:00 [facility] BILE DUCT STENT INSERTION PROCEDURE W/ C-ARM 2022-08-[address] [facility] 09:05:00 [facility] POCT-GLUCOSE METER 2022-08-[address] [facility] 07:44:00 [facility] BASIC METABOLIC PANEL 2022-08-[address] [facility] [facility] 03:45:00 [facility] HEPATIC FUNCTION PANEL 2022-08-[address] [facility] 03:45:00 [facility] MAGNESIUM 2022-08-[address] [facility] 03:45:00 [facility] CBC W/PLT COUNT & AUTO 2022-08-[address] [facility] DIFFERENTIAL 03:45:00 [facility] CBC W/PLT COUNT & AUTO 2022-08-07 Nando, Nejenn [facility] DIFFERENTIAL 03:45:00 [facility] (CELLAVISION MANUAL DIFF) 2022-08-[address] [facility] 03:45:00 [facility] POCT-GLUCOSE METER 2022-08-06 Arif, Sahar [facility] 20:38:00 [facility] POCT-GLUCOSE METER 2022-08-06 Arif, Sahar [facility] 17:02:00 [facility] POCT-GLUCOSE METER 2022-08-06 Arif, Sahar [facility] 12:07:00 [facility] POCT-GLUCOSE METER 2022-08-06 Arif, Sahar [facility] 07:33:00 [facility] BASIC METABOLIC PANEL 2022-08-06 Nando, Nejmudin [facility] 05:16:00 [facility] HEPATIC FUNCTION PANEL 2022-08-06 Nando, Nejmudin [facility] 05:16:00 [facility] MAGNESIUM 2022-08-06 Nando, Nejmudin [facility] 05:16:00 [facility] CBC W/PLT COUNT & AUTO 2022-08-06 Nando, Nejmudin [facility] DIFFERENTIAL 05:16:00 [facility] CBC W/PLT COUNT & AUTO 2022-08-06 Nando, Nejmudin [facility] DIFFERENTIAL 05:16:00 [facility] (CELLAVISION MANUAL DIFF) 2022-08-06 Nando, Nejmudin [facility] 05:16:00 [facility] POCT-GLUCOSE METER 2022-08-05 Nando, Nejmudin [facility] 21:18:00 [facility] POCT-GLUCOSE METER 2022-08-05 Nando, Nejmudin [facility] 16:51:00 [facility] POCT-GLUCOSE METER 2022-08-05 Nando, Nejmudin [facility] 12:05:00 [facility] BLOOD CULTURE 2022-08-05 Nando, Nejmudin [facility] 12:00:00 [facility] BLOOD CULTURE 2022-08-05 Nando, Nejmudin [facility] 11:26:00 [facility] BASIC METABOLIC PANEL 2022-08-05 Nando, Nejmudin [facility] 11:26:00 [facility] HEPATIC FUNCTION PANEL 2022-08-[address] [facility] 11:26:00 [facility] MAGNESIUM 2022-08-[address] [facility] 11:26:00 [facility] CBC W/PLT COUNT & AUTO 2022-08-05 Nando, Miguelito [facility] DIFFERENTIAL 11:26:00 [facility] HIGH SENSITIVITY TROPONIN I 2022-08-05 Nando, Nejenn [facility] 11:26:00 [facility] CBC W/PLT COUNT & AUTO 2022-08-[address] [facility] DIFFERENTIAL 11:26:00 [facility] (CELLAVISION MANUAL DIFF) 2022-08-[address] [facility] 11:26:00 [facility] EKG-SCANNED 2022-08-[address] [facility] 00:00:00 Scanning [facility] OSI MRI ABDOMEN 2022-05-28 Melanie Nuñez [place] of 13:38:00 [place] [facility]ST 2022-05-28 Melanie Nuñez [place] of 13:38:00 [place] [facility] MR ABDOMEN WITH & WITHOUT IV 2022-05-28 Kyler Abreu [facility] CONTRAST 12:47:[address] [facility] [address] CHEST WITH IV CONTRAST 2022-05-[address] [facility] 10:10:00 [facility] POCT-CREATININE 2022-02-[address] [facility] 14:08:00 [facility] MR ABDOMEN WITH & WITHOUT IV 2022-01-06 Kyler Abreu [facility] CONTRAST 15:12:00 [facility] CBC W/PLT COUNT & AUTO 2021-12-[address] [facility] DIFFERENTIAL 08:47:00 [facility] COMPREHENSIVE METABOLIC PANEL 2021-12-[address] [facility] 08:47:00 [facility] MAGNESIUM 2021-12-[address] [facility] 08:47:00 [facility] CBC W/PLT COUNT & AUTO 2021-12-[address] [facility] DIFFERENTIAL 08:47:00 [facility] MAGNESIUM 2021-12-19 Brady, Tannaz [facility] 07:55:00 [facility] CBC W/PLT COUNT & AUTO 2021-12-[address] [facility] DIFFERENTIAL 07:55:00 [facility] COMPREHENSIVE METABOLIC PANEL 2021-12-19 Brady, Tannaz [facility] 07:55:00 [facility] CBC W/PLT COUNT & AUTO 2021-12-[address] [facility] DIFFERENTIAL 07:55:00 [facility] MAGNESIUM 2021-12-[address] [facility] 08:29:00 [facility] CBC W/PLT COUNT & AUTO 2021-12-[address] [facility] DIFFERENTIAL 08:29:00 [facility] COMPREHENSIVE METABOLIC PANEL 2021-12-05 Brady, Tannaz [facility] 08:29:00 [facility] CBC W/PLT COUNT & AUTO 2021-12-[address] [facility] DIFFERENTIAL 08:29:00 [facility] (MANUAL DIFFERENTIAL) 2021-12-[address] [facility] 08:29:00 [facility] CBC W/PLT COUNT & AUTO 2021-11-[address] [facility] DIFFERENTIAL 08:14:00 [facility] CBC W/PLT COUNT & AUTO 2021-11-[address] [facility] DIFFERENTIAL 08:14:00 [facility] COMPREHENSIVE METABOLIC PANEL 2021-11-[address] [facility] 08:13:00 [facility] MAGNESIUM 2021-11-[address] [facility] 08:13:00 [facility] NM BONE SCAN WHOLE BODY 2021-11-[address] [facility] 15:24:[address] ABDOMEN/PELVIS WITH IV 2021-11-[address] [facility] CONTRAST 10:55:[address] [facility] [address] CHEST WITH IV CONTRAST 2021-11-[address] [facility] 10:55:00 [facility] CBC W/PLT COUNT & AUTO 2021-11-[address] [facility] DIFFERENTIAL 08:05:00 [facility] COMPREHENSIVE METABOLIC PANEL 2021-11-14 Brady, Tannaz [facility] 08:05:00 [facility] MAGNESIUM 2021-11-[address] [facility] 08:05:00 [facility] CBC W/PLT COUNT & AUTO 2021-11-[address] [facility] DIFFERENTIAL 08:05:00 [facility] (MANUAL DIFFERENTIAL) 2021-11-[address] [facility] 08:05:00 [facility] NM BONE SCAN WHOLE BODY 2021-08-[address] [facility] 13:34:00 [facility] IR PORT-A-CATH PLACEMENT 2021-08-[address] [facility] 11:53:00 [facility] PROTHROMBIN TIME/INR 2021-08-[address] [facility] 09:34:00 [facility] PLATELET COUNT 2021-08-04 Drea Abdelrahman-Tsuen [facility] 09:34:00 [facility] CT ABDOMEN/PELVIS WITH IV 2021-07-[address] [facility] CONTRAST 15:10:00 [facility] CT CHEST WITH IV CONTRAST 2021-07-28 [address]armenmary ellenmax Tannaz [facility] 15:10:00 [facility] CALCIUM, IONIZED 2021-07-[address] [facility] 04:45:00 [facility] COMPREHENSIVE METABOLIC PANEL 2021-07-[address] [facility] 04:45:00 [facility] MAGNESIUM 2021-07-[address] [facility] 04:45:00 [facility] CBC W/PLT COUNT & AUTO 2021-07-[address] [facility] DIFFERENTIAL 04:45:00 [facility] CBC W/PLT COUNT & AUTO 2021-07-[address] [facility] DIFFERENTIAL 04:45:00 [facility] POCT-GLUCOSE METER 2021-07-10 Estrada, Lupillo [facility] 21:31:00 [facility] POCT-GLUCOSE METER 2021-07-10 Estrada, Lupillo [facility] 16:46:00 [facility] REPORT OF PROCEDURE - ENDOSCOPY 2021-07-10 Otrosi, Rosa [facility] URL 13:34:11 [facility] POCT-GLUCOSE METER 2021-07-10 Estrada, Lupillo [facility] 12:35:00 [facility] [place] ERCP 2021-07-10 Otan, Mohamed [facility] 12:10:00 [facility] ENDOSCOPIC RETROGRADE 2021-07-10 [facility]tan, [facility] CHOLANGIOPANCREATOGRAPHY, WITH 10:49:00 [facility] BILE DUCT STENT INSERTION PROCEDURE W/ C-ARM 2021-07-10 [facility] 10:49:00 [facility] ENDOSCOPIC RETROGRADE 2021-07-10 [facility], [facility] CHOLANGIOPANCREATOGRAPHY, WITH 10:49:00 [facility] STENT REMOVAL ERCP, WITH BALLOON SWEEP OF BILE 2021-07-10 [facility], [facility] DU[facility] 10:49:00 [facility] ENDOSCOPIC RETROGRADE 2021-07-10 [facility] CHOLANGIOPANCREATOGRAPHY, WITH 10:49:00 [facility] BALLOON DILATION POCT-GLUCOSE METER 2021-07-10 Estrada, Lupillo [facility] 07:11:00 [facility] CALCIUM, IONIZED 2021-07-[address] [facility] 04:10:00 [facility] COMPREHENSIVE METABOLIC PANEL 2021-07-[address] [facility] 04:10:00 [facility] MAGNESIUM 2021-07-[address] [facility] 04:10:00 [facility] PHOSPHORUS 2021-07-[address] [facility] 04:10:00 [facility] CBC W/PLT COUNT & AUTO 2021-07-[address] [facility] DIFFERENTIAL 04:10:00 [facility] CBC W/PLT COUNT & AUTO 2021-07-[address] [facility] DIFFERENTIAL 04:10:00 [facility] POCT-GLUCOSE METER 2021-07-09 Estrada, Lupillo [facility] 20:20:00 [facility] POCT-GLUCOSE METER 2021-07-09 Estrada, Lupillo [facility] 16:17:00 [facility] SARS-COV2/RT-PCR (HS & REF 2021-07-09 Master, Lisa [facility] 14:50:00 [facility] POCT-GLUCOSE METER 2021-07-09 Estrada, Lupillo [facility] 11:08:00 [facility] POCT-GLUCOSE METER 2021-07-09 Master, Lisa [facility] 07:29:00 [facility] HEPATIC FUNCTION PANEL 2021-07-09 Akila, Anna [facility] 05:53:00 [facility] CBC W/PLT COUNT & AUTO 2021-07-09 Akila, Anna [facility] DIFFERENTIAL 05:53:00 [facility] COMPREHENSIVE METABOLIC PANEL 2021-07-09 Master, Lisa [facility] 05:53:00 [facility] CALCIUM, IONIZED 2021-07-09 Murphy, Russell [facility] 05:53:00 [facility] MAGNESIUM 2021-07-09 Murphy, Russell [facility] 05:53:00 [facility] PHOSPHORUS 2021-07-09 Murphy, Russell [facility] 05:53:00 [facility] CBC W/PLT COUNT & AUTO 2021-07-09 Akila, Anna [facility] DIFFERENTIAL 05:53:00 [facility] POCT-GLUCOSE METER 2021-07-08 Master, Lisa [facility] 21:24:00 [facility] BASIC METABOLIC PANEL 2021-07-08 Murphy, Russell [facility] 19:04:00 [facility] POCT-GLUCOSE METER 2021-07-08 Zindani, Lisa [facility] 17:10:00 [facility] POCT-GLUCOSE METER 2021-07-08 Zindani, Lisa [facility] 11:54:00 [facility] POCT-GLUCOSE METER 2021-07-08 Zindani, Lisa [facility] 07:42:00 [facility] BASIC METABOLIC PANEL 2021-07-08 Akila, Anna [facility] 03:35:00 [facility] HEPATIC FUNCTION PANEL 2021-07-08 Akila, Anna [facility] 03:35:00 [facility] CBC W/PLT COUNT & AUTO 2021-07-[address] [facility] DIFFERENTIAL 03:35:00 [facility] B-TYPE NATRIURETIC FACTOR (BNP) 2021-07-08 Arnold Linwood alejandro [facility] 03:35:00 [facility] PHOSPHORUS 2021-07-[address] [facility] 03:35:00 [facility] MAGNESIUM 2021-07-[address] [facility] 03:35:00 [facility] CBC W/PLT COUNT & AUTO 2021-07-[address] [facility] DIFFERENTIAL 03:35:00 [facility] [facility] POCT-GLUCOSE METER 2021-07-[address] [facility] 21:14:00 [facility] BASIC METABOLIC PANEL 2021-07-[address] [facility] 21:08:00 [facility] URINALYSIS W/ MICROSCOPIC 2021-07-[address] [facility] 21:02:00 [facility] SODIUM, RANDOM URINE 2021-07-[address] [facility] 21:02:00 [facility] CREATININE, RANDOM URINE 2021-07-07 [facility]j [facility] 21:02:00 [facility] EOSINOPHIL SMEAR, URINE 2021-07-[address] [facility] 21:02:00 [facility] PROTEIN, RANDOM URINE 2021-07-[address] [facility] 21:02:00 [facility] US RENAL COMPLETE 2021-07-[address] [facility] 17:55:00 [facility] BLOOD CULTURE 2021-07-[address] [facility] 15:23:00 [facility] BASIC METABOLIC PANEL 2021-07-[address] [facility] 14:04:00 [facility] HEPATIC FUNCTION PANEL 2021-07-[address] [facility] 14:04:00 [facility] CBC W/PLT COUNT & AUTO 2021-07-[address] [facility] DIFFERENTIAL 14:04:00 [facility] CBC W/PLT COUNT & AUTO 2021-07-[address] [facility] DIFFERENTIAL 14:04:00 [facility] POCT-GLUCOSE METER 2021-07-[address] [facility] 11:24:00 [facility] POCT-GLUCOSE METER 2021-06-[address] [facility] 08:13:00 [facility] BASIC METABOLIC PANEL 2021-06-[address] [facility] 05:07:00 [facility] CALCIUM, IONIZED 2021-06-26 Wilber, Edson [facility] 05:07:00 [facility] PHOSPHORUS 2021-06-[address] [facility] 05:07:00 [facility] CBC W/PLT COUNT & AUTO 2021-06-[address] [facility] DIFFERENTIAL 05:07:00 [facility] MAGNESIUM 2021-06-[address] [facility] 05:07:00 [facility] CBC W/PLT COUNT & AUTO 2021-06-[address] [facility] DIFFERENTIAL 05:07:00 [facility] POCT-GLUCOSE METER 2021-06-[address] [facility] 21:17:00 [facility] POCT-GLUCOSE METER 2021-06-[address] [facility] 16:26:00 [facility] SARS-COV2/RT-PCR ([facility] & REF 2021-06-[address] [facility] 14:06:00 [facility] XR ABDOMEN/KUB 1 VIEW PORTABLE 2021-06-[address] [facility] 13:45:00 [facility] POCT-GLUCOSE METER 2021-06-[address] [facility] 12:04:00 [facility] POCT-GLUCOSE METER 2021-06-[address] [facility] 07:55:00 [facility] CBC W/PLT COUNT & AUTO 2021-06-[address] [facility] DIFFERENTIAL 06:08:00 [facility] MAGNESIUM 2021-06-25 Parhizgar, Edson [facility] 06:08:00 [facility] CALCIUM, IONIZED 2021-06-25 Jeffrey, Russell [facility] 06:08:00 [facility] COMPREHENSIVE METABOLIC PANEL 2021-06-25 [address] [facility] 06:08:00 [facility] PHOSPHORUS 2021-06-25 Murphy, Russell [facility] 06:08:00 [facility] CBC W/PLT COUNT & AUTO 2021-06-25 Zanderhizricardo, Edson [facility] DIFFERENTIAL 06:08:00 [facility] POCT-GLUCOSE METER 2021-06-24 Parhizricardo, [facility]dson [facility] 21:02:00 [facility] CALCIUM, IONIZED 2021-06-[address] [facility] 12:02:00 [facility] BASIC METABOLIC PANEL 2021-06-[address] [facility] 12:02:00 [facility] POCT-GLUCOSE METER 2021-06-24 Wilber, Edson [facility] 11:23:00 [facility] URINALYSIS W/ MICROSCOPIC 2021-06-[address] [facility] 07:41:00 [facility] SODIUM, RANDOM URINE 2021-06-[address] [facility] 07:40[facility] PROTEIN, RANDOM URINE 2021-06-[address] [facility] 07:40:00 [facility] CREATININE, RANDOM URINE 2021-06-[address] [facility] 07:40:00 [facility] PHOSPHORUS 2021-06-24 Zanderhizgar, Edson [facility] 05:05:00 [facility] CALCIUM, IONIZED 2021-06-24 Parhizgar, Edson [facility] 05:05:00 [facility] CBC W/PLT COUNT & AUTO 2021-06-24 Parhizricardo, Edson [facility] DIFFERENTIAL 05:05:00 [facility] MAGNESIUM 2021-06-24 Parhizgar, Edson [facility] 05:05:00 [facility] COMPREHENSIVE METABOLIC PANEL 2021-06-[address] [facility] 05:05:00 [facility] B-TYPE NATRIURETIC FACTOR (BNP) 2021-06-24 Murphy, Russell [facility] 05:05:00 [facility] CREATINE KINASE (CK) 2021-06-[address] [facility] 05:05:[facility] URIC ACID 2021-06-[address] [facility] 05:05:00 [facility] CBC W/PLT COUNT & AUTO 2021-06-24 Wilber, Edson [facility] DIFFERENTIAL 05:05:00 [facility] POCT-GLUCOSE METER 2021-06-23 Wilber, Edson [facility] 21:24:00 [facility] BASIC METABOLIC PANEL 2021-06-[address] [facility] [facility] 19:51:00 [facility] XR CHEST 1 VIEW PORTABLE / 2021-06-23 Russell Murphy [facility] BED[facility]IDE 18:47:00 [facility] POCT-GLUCOSE METER 2021-06-23 Wilber, Edson [facility] 17:07:[address] ABDOMEN/PELVIS WITHOUT IV 2021-06-[address] [facility] CONTRAST 15:03:00 [facility] POCT-GLUCOSE METER 2021-06-23 Wilber, [facility]dson [facility] 11:21:00 [facility] POCT-GLUCOSE METER 2021-06-23 Wilber, Edson [facility] 07:26:00 [facility] BASIC METABOLIC PANEL 2021-06-23 Wilber, Edson [facility] 04:24:00 [facility] CALCIUM, IONIZED 2021-06-23 Wilber, Edson [facility] 04:24:00 [facility] PHOSPHORUS 2021-06-23 Wilber, Edson [facility] 04:24:00 [facility] CBC W/PLT COUNT & AUTO 2021-06-23 Wilber, Edson [facility] DIFFERENTIAL 04:24:00 [facility] MAGNESIUM 2021-06-23 Wilber, Edson [facility] 04:24:00 [facility] CBC W/PLT COUNT & AUTO 2021-06-23 Wilber, Edson [facility] DIFFERENTIAL 04:24:00 [facility] POCT-GLUCOSE METER 2021-06-[address] [facility] 21:14:00 [facility] POCT-GLUCOSE METER 2021-06-[address] [facility] 17:18:00 [facility] XR ABDOMEN/KUB 1 VIEW PORTABLE 2021-06-22 Ratna Valle [address]o [facility] 13:34:00 [facility] POCT-GLUCOSE METER 2021-06-22 Gadicherla, Jessica [facility] 06:47:00 [facility] POCT-GLUCOSE METER 2021-06-21 Gadicherla, Jessica [facility] 21:07:00 [facility] POCT-GLUCOSE METER 2021-06-21 Gadicherla, Jessica [facility] 17:22:00 [facility] HEPATIC FUNCTION PANEL 2021-06-21 Gadicherla, Jessica [facility] 12:39:00 [facility] CBC W/PLT COUNT & AUTO 2021-06-21 Gadicherla, Jessica [facility] DIFFERENTIAL 12:39:00 [facility] BASIC METABOLIC PANEL 2021-06-21 Gadicherla, Jessica [facility] 12:39:00 [facility] CBC W/PLT COUNT & AUTO 2021-06-21 Gadicherla, Jessica [facility] DIFFERENTIAL 12:39:00 [facility] POCT-GLUCOSE METER 2021-06-21 Gadicherla, Jessica [facility] 12:15:00 [facility] POCT-GLUCOSE METER 2021-06-21 Gadicherla, Jessica [facility] 07:36:00 [facility] POCT-GLUCOSE METER 2021-06-20 Gadicherla, Jessica [facility] 20:55:00 [facility] POCT-GLUCOSE METER 2021-06-20 Gadicherla, Jessica [facility] 17:06:00 [facility] POCT-GLUCOSE METER 2021-06-20 Gadicherla, Jessica [facility] 07:54:00 [facility] XR ABDOMEN/KUB 1 VIEW PORTABLE 2021-06-[address] [facility] 02:01:00 [facility] POCT-GLUCOSE METER 2021-06-19 Gadichersharri, Jessica [facility] 21:39:00 [facility] POCT-GLUCOSE METER 2021-06-19 Gadichersharri, Jessica [facility] 16:30:00 [facility] POCT-GLUCOSE METER 2021-06-19 Gadichersharri, Jessica [facility] 11:17:00 [facility] POCT-GLUCOSE METER 2021-06-19 Gadichersharri, Jessica [facility] 07:59:00 [facility] HEPATIC FUNCTION PANEL 2021-06-[address] [facility] 04:21:00 [facility] POCT-GLUCOSE METER 2021-06-18 Gadichersharri, Jessica [facility] 21:31:00 [facility] SARS-COV2/RT-PCR ([facility] & REF 2021-06-18 JesusicherAntonio choudharyal [facility] 17:57:00 [facility] POCT-GLUCOSE METER 2021-06-[address] [facility] 17:19:00 [facility] POCT-GLUCOSE METER 2021-06-18 Gadkathleenersharri, Jessica [facility] 11:38:00 [facility] POCT-GLUCOSE METER 2021-06-18 Jeanaersharri, Jessica [facility] 07:43:00 [facility] HEPATIC FUNCTION PANEL 2021-06-[address] [facility] 04:23:00 [facility] POCT-GLUCOSE METER 2021-06-17 Gadicherla, Jessica [facility] 20:54:00 [facility] POCT-GLUCOSE METER 2021-06-17 Gadicherla, Jessica [facility] 17:37:00 [facility] HEPATIC FUNCTION PANEL 2021-06-17 Gadicherla, Jessica [facility] 04:35:00 [facility] POCT-GLUCOSE METER 2021-06-16 Gadicherla, Jessica [facility] 20:41:00 [facility] POCT-GLUCOSE METER 2021-06-16 Gadicherla, Jessica [facility] 17:29:00 [facility] BASIC METABOLIC PANEL 2021-06-16 Gadicherla, Jessica [facility] 16:26:00 [facility] POCT-GLUCOSE METER 2021-06-16 Gadicherla, Jessica [facility] 11:58:00 [facility] POCT-GLUCOSE METER 2021-06-16 Gadicherla, Jessica [facility] 07:17:00 [facility] HEPATIC FUNCTION PANEL 2021-06-16 Gadicherla, Jessica [facility] 05:05:00 [facility] POCT-GLUCOSE METER 2021-06-15 Gadicherla, Jessica [facility] 21:01:00 [facility] POCT-GLUCOSE METER 2021-06-15 Gadicherla, Jessica [facility] 16:52:00 [facility] POCT-GLUCOSE METER 2021-06-15 Gadicherla, Jessica [facility] 11:41:00 [facility] POCT-GLUCOSE METER 2021-06-15 Gadicherla, Jessica [facility] 07:50:00 [facility] HEPATIC FUNCTION PANEL 2021-06-15 Gadicherla, Jessica [facility] 04:30:00 [facility] POCT-GLUCOSE METER 2021-06-14 Gadicherla, Jessica [facility] 20:56:00 [facility] POCT-GLUCOSE METER 2021-06-14 Gadicherla, Jessica [facility] 16:33:00 [facility] POCT-GLUCOSE METER 2021-06-14 Gadicherla, Jessica [facility] 11:24:00 [facility] POCT-GLUCOSE METER 2021-06-14 Gadicherla, Jessica [facility] 07:27:00 [facility] POCT-GLUCOSE METER 2021-06-13 Gadicherla, Jessica [facility] 21:05:00 [facility] POCT-GLUCOSE METER 2021-06-[address] [facility] 16:45:00 [facility] BASIC METABOLIC PANEL 2021-06-[address] [facility] 12:05:00 [facility] HEPATIC FUNCTION PANEL 2021-06-[address] [facility] 12:05:00 [facility] POCT-GLUCOSE METER 2021-06-[address] [facility] 11:32:00 [facility] POCT-GLUCOSE METER 2021-06-[address] [facility] 07:12:00 [facility] POCT-GLUCOSE METER 2021-06-[address] [facility] 20:54:00 [facility] POCT-GLUCOSE METER 2021-06-[address] [facility] 18:18:00 [facility] IR PERCUTANEOUS CHOLANGIOGRAM 2021-06-[address] [facility] 17:49:00 [facility] TISSUE EXAM 2021-06-[address] [facility] 17:40:00 [facility] PROCEDURE DONE OUTSIDE OR 2021-06-12 Virtual, Surgeon MIKA Mccall t Nicole 13:00:00 [facility] PROCEDURE, IN NON-OPERATING ROOM 2021-06-12 Virtual, Surgelonnie abarca [facility] SETTING 13:00:00 [facility] SARS-COV2/RT-PCR (HS & REF 2021-06-12 Olga Jessica Matthew [facility] 12:50:00 [facility] POCT-GLUCOSE METER 2021-06-[address] [facility] 08:06:00 [facility] POCT-GLUCOSE METER 2021-06-11 Olga, Jessica [facility] 21:22:00 [facility] POCT-GLUCOSE METER 2021-06-11 Olga, Jessica [facility] 17:15:00 [facility] POCT-GLUCOSE METER 2021-06-11 Gadicherla, Jessica [facility] 07:39:00 [facility] COMPREHENSIVE METABOLIC PANEL 2021-06-11 [address] [facility] 04:21:00 [facility] CBC W/PLT COUNT & AUTO 2021-06-[address] [facility] DIFFERENTIAL 04:21:00 [facility] CBC W/PLT COUNT & AUTO 2021-06-[address] [facility] DIFFERENTIAL 04:21:00 [facility] POCT-GLUCOSE METER 2021-06-10 Gadicherla, Jessica [facility] 21:10:00 [facility] POCT-GLUCOSE METER 2021-06-10 Gadicherla, Jessica [facility] 17:23:00 [facility] POCT-GLUCOSE METER 2021-06-10 Gadicherla, Jessica [facility] 14:11:00 [facility] NM BONE SCAN WHOLE BODY 2021-06-10 Gadicherla, Jessica [facility] 12:57:00 [facility] POCT-GLUCOSE METER 2021-06-10 Gadicherla, Jessica [facility] 08:34:00 [facility] COMPREHENSIVE METABOLIC PANEL 2021-06-10 [address] [facility] 03:59:00 [facility] CBC W/PLT COUNT & AUTO 2021-06-[address] [facility] DIFFERENTIAL 03:59:00 [facility] CBC W/PLT COUNT & AUTO 2021-06-[address] [facility] DIFFERENTIAL 03:59:00 [facility] POCT-GLUCOSE METER 2021-06-09 Gadicherla, Jessica [facility] 23:05:[address] [facility] [address] CHEST WITH IV CONTRAST 2021-06-09 Gadicherla, Jessica [facility] 20:24:00 [facility] POCT-GLUCOSE METER 2021-06-09 Gadicherla, Jessica [facility] 17:06:00 [facility] POCT-GLUCOSE METER 2021-06-09 Gadicherla, Jessica [facility] 11:32:00 [facility] COMPREHENSIVE METABOLIC PANEL 2021-06-09 [address] [facility] 09:30:00 [facility] CBC W/PLT COUNT & AUTO 2021-06-[address] [facility] DIFFERENTIAL 09:30:00 [facility] CBC W/PLT COUNT & AUTO 2021-06-[address] [facility] DIFFER[facility] 09:30:00 [facility] POCT-GLUCOSE METER 2021-06-09 Gadicherla, Jessica [facility] 07:39:00 [facility] POCT-GLUCOSE METER 2021-06-08 Gadicherla, Jessica [facility] 21:21:00 [facility] POCT-GLUCOSE METER 2021-06-08 Gadicherla, Jessica [facility] 17:26:00 [facility] POCT-GLUCOSE METER 2021-06-08 Gadicherla, Jessica [facility] 11:18:00 [facility] REPORT OF PROCEDURE - ENDOSCOPY 2021-06-[address] [facility] URL 10:35:34 [facility] CBC W/PLT COUNT & AUTO 2021-06-08 Avendano Nooyla, [facility] DIFFERENTIAL 10:12:00 [facility] COMPREHENSIVE METABOLIC PANEL 2021-06-08 Juan Alberto ChampionNoyola[facility] 10:12:00 [facility] CBC W/PLT COUNT & AUTO 2021-06-08 Juan Alberto ChampionNoyola, [facility] DIFFERENTIAL 10:12:00 [facility] POCT-GLUCOSE METER 2021-06-08 Gadicherla, Jessica [facility] 07:41:00 [facility] POCT-GLUCOSE METER 2021-06-07 Gadicherla, Jessica [facility] 21:11:00 [facility] POCT-GLUCOSE METER 2021-06-07 Gadicherla, Jessica [facility] 17:14:00 [facility] POCT-GLUCOSE METER 2021-06-07 Gadicherla, Jessica [facility] 12:48:00 [facility] POCT-GLUCOSE METER 2021-06-07 Gadicherla, Jessica [facility] 11:30:00 [facility] CYTOLOGY 2021-06-07 Otpoornima, Rosa [facility] 11:18:00 [facility] CYTOLOGY REQUEST 2021-06-07 Otpoornima, Rosa [facility] 11:18:00 [facility] [place] ERCP 2021-06-07 Otrosi, Rosa [facility] 11:07:00 [facility] TISSUE EXAM 2021-06-07 Otpoornima, [facility] 10:53:00 [facility] ENDOSCOPIC RETROGRADE 2021-06-07 [facility], [facility] CHOLANGIOPANCREATOGRAPHY, WITH 09:23:00 [facility] DIRECT DUCT VISUALIZATION, USING PANCREATICOBILIARY FIBEROPTIC PROBE PROCEDURE W/ C-ARM 2021-06-07 Kypoornima, [facility] 09:23:00 [facility] ENDOSCOPIC RETROGRADE 2021-06-07 [facility] CHOLANGIOPANCREATOGRAPHY, WITH 09:23:00 [facility] SPHINCTEROTOMY ENDOSCOPIC RETROGRADE 2021-06-07 [facility] CHOLANGIOPANCREATOGRAPHY, WITH 09:23:00 [facility] BILE DUCT STENT INSERTION ENDOSCOPIC RETROGRADE 2021-06-07 [facility] CHOLANGIOPANCREATOGRAPHY, WITH 09:23:00 [facility] BIOPSY POCT-GLUCOSE METER 2021-06-07 Gadicherla, Jessica [facility] 07:27:00 [facility] POCT-GLUCOSE METER 2021-06-06 Gadicherla, Jessica [facility] 22:24:00 [facility] POCT-GLUCOSE METER 2021-06-06 Gadicherla, Jessica [facility] 17:17:00 [facility] POCT-GLUCOSE METER 2021-06-06 Gadicherla, Jessica [facility] 12:23:00 [facility] POCT-GLUCOSE METER 2021-06-06 Gadicherla, Jessica [facility] 08:04:00 [facility] POCT-GLUCOSE METER 2021-06-05 Gadicherla, Jessica [facility] 21:04:00 [facility] POCT-GLUCOSE METER 2021-06-05 Gadicherla, Jessica [facility] 17:45:00 [facility] POCT-GLUCOSE METER 2021-06-05 Gadicherla, Jessica [facility] 12:00:00 [facility] POCT-GLUCOSE METER 2021-06-05 Gadicherla, Jessica [facility] 07:52:00 [facility] HEPATITIS B SURFACE ANTIBODY 2021-06-05 [address] [facility] 04:48:00 [facility] POCT-GLUCOSE METER 2021-06-04 Gadicherla, Jessica [facility] 21:08:00 [facility] POCT-GLUCOSE METER 2021-06-04 Gadicherla, Jessica [facility] 17:05:00 [facility] MR ABDOMEN WITH & WITHOUT IV 2021-06-04 Adio, Titilola [facility] 16:54:00 [facility] POCT-GLUCOSE METER 2021-06-04 Gadichersharri, Jessica [facility] 11:13:00 [facility] POCT-GLUCOSE METER 2021-06-04 Adio, Titilola [facility]. [facility] 08:01:00 [facility] BASIC METABOLIC PANEL 2021-06-04 Adio, Titilola R. [facility] 05:01:00 [facility] HEPATIC FUNCTION PANEL 2021-06-04 Adio, Titilola R. [facility] 05:01:00 [facility] MAGNESIUM 2021-06-04 Adio, Titilola R. [facility] 05:01:00 [facility] PHOSPHORUS 2021-06-04 Adio, Titilola R. [facility] 05:01:00 [facility] CBC W/PLT COUNT & AUTO 2021-06-04 Adio, Titilola R. [facility] DIFFERENTIAL 05:01:00 [facility] PROTHROMBIN TIME/INR 2021-06-04 Adio, Titilola [facility]. [facility] 05:[facility] HEMOGLOBIN A1C 2021-06-04 LuizParishchetnagirish McmullenCatrachito [facility] 05:01:00 [facility] CBC W/PLT COUNT & AUTO 2021-06-[address] [facility] DI[facility]ENTIAL 05:01:00 [facility] POCT-GLUCOSE METER 2021-06-03 Luiz Parishchetnagirish R. [facility] 21:14:00 [facility] POCT-GLUCOSE METER 2021-06-[address] [facility] 17:28:00 [facility] OSI CHEST 2021-06-03 [facility] of 17:15:00 [facility] Birminghamsuman abarca [facility] OSI CT ABDOMEN AND PELVIS 2021-06-03 [facility] of 17:12:00 [facility] Birminghamsuman [facility] CARCINOEMBRYONIC ANTIGEN (CEA) 2021-06-[address] [facility] 15:31:00 [facility] CARBOHYDRATE ANTIGEN 19-9 (CA 2021-06-[address] [facility] 19-9) 15:31:00 [facility] HEPATITIS C ANTIBODY 2021-06-[address] [facility] 15:31:00 [facility] HEPATITIS B CORE ANTIBODY, TOTAL 2021-06-[address] [facility] 15:31:00 [facility] HEPATITIS B SURFACE ANTIGEN 2021-06-[address] [facility] 15:31:00 [facility] CERULOPLASMIN 2021-06-03 Jose Guadalupe Solo [facility] 15:31:00 [facility] ANTI-NUCLEAR ANTIBODY (MORENA) 2021-06-[address] [facility] 15:31:00 [facility] ACTIN (SMOOTH MUSCLE) ANTIBODY, 2021-06-[address] [facility] IGG 15:31:00 [facility] ANTI-MITOCHONDRIAL AB, REFLEX TO 2021-06-[address] [facility] TITER 15:31:00 [facility] [id number]\\, SERUM 2021-06-[address] [facility] 15:31:00 [facility] EBV ANTIBODY, IGG 2021-06-[address] [facility] 15:31:00 [facility] CYTOMEGALOVIRUS ANTIBODY, IGG 2021-06-[address] [facility] 15:31:00 [facility] LIVER-KIDNEY MICROSOME AB 2021-06-[address] [facility] 15:31:00 [facility] MITOCHONDRIAL AB SCREEN 2021-06-[address] [facility] 15:31:00 [facility] MITOCHONDRIAL AB TITER 2021-06-[address] [facility] 15:31:00 [facility] POCT-GLUCOSE METER 2021-06-03 Luiz Titilola R. [facility] 11:21:00 [facility] COMPREHENSIVE METABOLIC PANEL 2021-06-03 Luiz, Titilola R. [facility] 11:17:00 [facility] CBC W/PLT COUNT & AUTO 2021-06-03 Luiz, Titilola R. [facility] DIFFERENTIAL 11:17:00 [facility] PROTHROMBIN TIME/INR 2021-06-03 Luiz, Titilola R. [facility] 11:17:00 [facility] ALPHA FETOPROTEIN (AFP), TUMOR 2021-06-03 Luiz, Titilola R. [facility] MARKER 11:17:00 [facility] BILIRUBIN, DIRECT 2021-06-[address] [facility] 11:17:00 [facility] HEPATITIS A ANTIBODY, IGG 2021-06-[address] [facility] 11:17:00 [facility] HEPATITIS A ANTIBODY, IGM 2021-06-[address] [facility] 11:17:00 [facility] FERRITIN 2021-06-[address] [facility] 11:17:00 [facility] IRON, TIBC, % SAT. (WITHOUT 2021-06-[address] [facility] FERR[facility]) 11:17:00 [facility] LIPID PANEL 2021-06-[address] [facility] 11:17:00 [facility] HC LAB HIV-1 AG W/HIV-1&2 AB 2021-06-[address] [facility] 11:17:00 [facility] CBC W/PLT COUNT & AUTO 2021-06-03 Luiz, Titilola R. [facility] DIFFERENTIAL 11:17:[address] ABDOMEN AND PELVIS 2021-05-29 Jakob Sanches [facility]ity of 17:15:00 [facility] Plan of Care Planned Activity Planned Date Details Comments Source Future Scheduled 2025-06-01 Lipid panel (procedure) [code = [facility] [facility] 00:[facility]:00 [id number]] [facility] Scheduled 2025-06-01 Lipid panel (procedure) [code = [facility] 00:00:00 [id number]] [facility] Scheduled 2025-06-01 Lipid panel (procedure) [code = [facility] 00:00:00 [id number]] [facility] Scheduled 2025-06-01 Lipid panel (procedure) [code = [facility] 00:00:00 [id number]] [facility] Scheduled 2025-06-01 Lipid panel (procedure) [code = [facility] 00:00:00 [id number]] [facility] Scheduled 2025-06-01 Lipid panel (procedure) [code = [facility] 00:00:00 [id number]] [facility] Scheduled 2025-06-01 Lipid panel (procedure) [code = [facility] 00:00:00 [id number]] [facility] Scheduled 2025-06-01 Lipid panel (procedure) [code = [facility] 00:00:00 [id number]] [facility] Scheduled 2025-06-01 Lipid panel (procedure) [code = [facility] 00:00:00 [id number]] [facility] Scheduled 2025-06-01 Lipid panel (procedure) [code = [facility] 00:00:00 [id number]] [facility] Scheduled 2025-06-01 Lipid panel (procedure) [code = [facility] 00:00:00 [id number]] [facility] Scheduled 2025-06-01 Lipid panel (procedure) [code = [facility] 00:00:00 [id number]] [facility] Scheduled 2025-06-01 Lipid panel (procedure) [code = [facility] 00:00:00 [id number]] [facility] Scheduled 2025-06-01 Lipid panel (procedure) [code = [facility] 00:00:00 [id number]] [facility] Scheduled 2025-06-01 Lipid panel (procedure) [code = [facility] 00:00:00 [id number]] [facility] Scheduled 2025-06-01 Lipid panel (procedure) [code = [facility] 00:00:00 [id number]] [facility] Scheduled 2025-06-01 Lipid panel (procedure) [code = [facility] 00:00:00 [id number]] [facility] Scheduled 2025-06-01 Lipid panel (procedure) [code = [facility] 00:00:00 [id number]] [facility] Scheduled 2025-06-01 Lipid panel (procedure) [code = [facility] 00:00:00 [id number]] [facility] Scheduled 2025-06-01 Lipid panel (procedure) [code = [facility] 00:00:00 [id number]] [facility] Scheduled 2025-06-01 Lipid panel (procedure) [code = [facility] 00:00:00 [id number]] [facility] Scheduled 2025-06-01 Lipid panel (procedure) [code = [facility] 00:00:00 [id number]] [facility] Scheduled 2025-06-01 Lipid panel (procedure) [code = [facility] 00:00:00 [id number]] [facility] Scheduled 2025-06-01 Lipid panel (procedure) [code = [facility] 00:00:00 [id number]] [facility] Scheduled 2025-06-01 Lipid panel (procedure) [code = [facility] 00:00:00 [id number]] [facility] Scheduled 2025-06-01 Lipid panel (procedure) [code = [facility] 00:00:00 [id number]] [facility] Scheduled 2025-06-01 Lipid panel (procedure) [code = [facility] 00:00:00 [id number]] [facility] Scheduled 2025-06-01 Lipid panel (procedure) [code = [facility] 00:00:00 [id number]] [facility] Scheduled 2025-06-01 Lipid panel (procedure) [code = [facility] 00:00:00 [id number]] [facility] Scheduled 2025-06-01 Lipid panel (procedure) [code = [facility] 00:00:00 [id number]] [facility] Scheduled 2025-06-01 Lipid panel (procedure) [code = [facility] 00:00:00 [id number]] [facility] Scheduled 2025-06-01 Lipid panel (procedure) [code = [facility] 00:00:00 [id number]] [facility] Scheduled 2025-06-01 Lipid panel (procedure) [code = [facility] 00:00:00 [id number]] [facility] Scheduled 2025-06-01 Lipid panel (procedure) [code = [facility] 00:00:00 [id number]] [facility] Scheduled 2024-06-03 Lipid panel (procedure) [code = [facility] 00:00:00 [id number]] [facility] Scheduled 2024-06-03 Lipid panel (procedure) [code = [facility] 00:00:00 [id number]] [facility] Scheduled 2024-06-03 Lipid panel (procedure) [code = [facility] 00:00:00 [id number]] [facility] Scheduled 2024-06-03 Lipid panel (procedure) [code = [facility] 00:00:00 [id number]] [facility] Scheduled 2024-06-03 Lipid panel (procedure) [code = [facility] 00:00:00 [id number]] [facility] Scheduled 2024-06-03 Lipid panel (procedure) [code = [facility] 00:00:00 [id number]] [facility] Scheduled 2024-06-03 Lipid panel (procedure) [code = [facility] 00:00:00 [id number]] [facility] Scheduled 2024-06-03 Lipid panel (procedure) [code = [facility] 00:00:00 [id number]] [facility] Scheduled 2024-04-[address] [facility] 00:00:00 and Screening (12+) [code = [facility] (12+)] Future Scheduled 2024-04-[address] [facility] 00:00:00 and Screening (12+) [code = [facility] (12+)] Future Scheduled 2023-10-[address] [facility] 00:00:00 and Screening (12+) [code = [facility] (12+)] Future Scheduled 2023-10-[address] [facility] 00:00:00 and Screening (12+) [code = [facility] (12+)] Future Scheduled 2023-10-[address] [facility] 00:00:00 and Screening (12+) [code = [facility] (12+)] Future Scheduled 2023-10-[address] [facility] 00:00:00 and Screening (12+) [code = [facility] (12+)] Future Scheduled 2023-10-[address] [facility] 00:00:00 and Screening (12+) [code = [facility] (12+)] Future Scheduled 2023-08-[address] [facility] 00:00:00 and Screening (12+) [code = [facility] (12+)] Future Scheduled 2023-08-[address] [facility] 00:00:00 and Screening (12+) [code = [facility] (12+)] Future Scheduled 2023-08-[address] [facility] 00:00:00 and Screening (12+) [code = [facility] (12+)] Future Scheduled 2023-08-[address] [facility] 00:00:00 and Screening (12+) [code = [facility] (12+)] Future Scheduled 2023-08-[address] [facility] 00:00:00 and Screening (12+) [code = [facility] (12+)] Future Scheduled 2023-08-[address] [facility] 00:00:00 and Screening (12+) [code = [facility] (12+)] Future Scheduled 2023-08-[address] [facility] 00:00:00 and Screening (12+) [code = [facility] (12+)] Future Scheduled 2023-08-[address] [facility] 00:00:00 and Screening (12+) [code = [facility] (12+)] Future Scheduled 2023-08-[address] [facility] 00:00:00 and Screening (12+) [code = [facility] (12+)] Future Scheduled 2023-08-[address] [facility] 00:00:00 and Screening (12+) [code = [facility] (12+)] Future Scheduled 2023-08-[address] [facility] 00:00:00 and Screening (12+) [code = [facility] (12+)] Future Scheduled 2023-08-[address] [facility] 00:00:00 and Screening (12+) [code = [facility] (12+)] Future Scheduled 2023-08-[address] [facility] 00:00:00 and Screening (12+) [code = [facility] (12+)] Future Scheduled 2023-08-[address] [facility] 00:00:00 and Screening (12+) [code = [facility] (12+)] Future Scheduled 2023-08-[address] [facility] 00:00:00 and Screening (12+) [code = [facility] (12+)] Future Scheduled 2023-08-[address] [facility] 00:00:00 and Screening (12+) [code = [facility] (12+)] Future Scheduled 2023-08-[address] [facility] 00:00:00 and Screening (12+) [code = [facility] (12+)] Future Scheduled 2023-08-[address] [facility] 00:00:00 and Screening (12+) [code = [facility] (12+)] Future Scheduled 2023-08-[address] [facility] 00:00:00 and Screening (12+) [code = [facility] (12+)] Future Scheduled 2023-08-[address] [facility] 00:00:00 and Screening (12+) [code = [facility] (12+)] Future Scheduled 2023-02-19 Influenza Vaccine (#1) [code = [facility] 00:00:00 Influenza Vaccine (#1)] [facility] Scheduled 2023-02-19 Influenza Vaccine (#1) [code = [facility] 00:00:00 Influenza Vaccine (#1)] [facility] Scheduled 2022-07-[address] [facility] 00:00:00 and Screening (12+) [code = [facility] (12+)] Future Scheduled 2022-07-[address] [facility] 00:00:00 and Screening (12+) [code = [facility] (12+)] Future Scheduled 2022-07-[address] [facility] 00:00:00 and Screening (12+) [code = [facility] (12+)] Future Scheduled 2022-07-[address] [facility] 00:00:00 and Screening (12+) [code = [facility] (12+)] Future Scheduled 2022-07-[address] [facility] 00:00:00 and Screening (12+) [code = [facility] (12+)] Future Scheduled 2022-07-[address] [facility] 00:00:00 and Screening (12+) [code = [facility] (12+)] Future Scheduled 2022-07-[address] [facility] 00:00:00 and Screening (12+) [code = [facility] (12+)] Future Scheduled 2022-07-[address] [facility] 00:00:00 and Screening (12+) [code = [facility] (12+)] Future Scheduled 2022-07-[address] [facility] 00:00:00 and Screening (12+) [code = [facility] (12+)] Future Scheduled 2022-07-[address] [facility] 00:00:00 and Screening (12+) [code = [facility] (12+)] Future Scheduled 2022-06-21 DEPRESSION SCREENING (12+) [facility] 00:00:00 [code = DEPRESSION SCREENING Medical (12+)] Center Future Scheduled 2022-06-21 DEPRESSION SCREENING (12+) [facility] 00:00:00 [code = DEPRESSION SCREENING Medical (12+)] Center Future Scheduled 2022-06-21 DEPRESSION SCREENING (12+) [facility] 00:00:00 [code = DEPRESSION SCREENING Medical (12+)] [facility] Future Scheduled 2022-06-21 DEPRESSION SCREENING (12+) [facility] 00:00:00 [code = DEPRESSION SCREENING Medical (12+)] [facility] Future Scheduled 2022-06-21 DEPRESSION SCREENING (12+) [facility] 00:00:00 [code = DEPRESSION SCREENING Medical (12+)] [facility] Future Scheduled 2022-06-21 DEPRESSION SCREENING (12+) [facility] 00:00:00 [code = DEPRESSION SCREENING Medical (12+)] [facility] Future Scheduled 2022-06-21 DEPRESSION SCREENING (12+) [facility] 00:00:00 [code = DEPRESSION SCREENING Medical (12+)] [facility] Future Scheduled 2022-06-21 DEPRESSION SCREENING (12+) [facility] 00:00:00 [code = DEPRESSION SCREENING Medical (12+)] [facility] Future Scheduled 2022-06-21 DEPRESSION SCREENING (12+) [facility] 00:00:00 [code = DEPRESSION SCREENING Medical (12+)] [facility] Future Scheduled 2022-06-21 DEPRESSION SCREENING (12+) [facility] 00:00:00 [code = DEPRESSION SCREENING Medical (12+)] [facility] Future Scheduled 2022-06-21 DEPRESSION SCREENING (12+) [facility] 00:00:00 [code = DEPRESSION SCREENING Medical (12+)] [facility] Future Scheduled 2022-06-21 DEPRESSION SCREENING (12+) [facility] 00:00:00 [code = DEPRESSION SCREENING Medical (12+)] [facility] Future Scheduled 2022-06-21 DEPRESSION SCREENING (12+) [facility] 00:00:00 [code = DEPRESSION SCREENING Medical (12+)] [facility] Future Scheduled 2022-06-21 DEPRESSION SCREENING (12+) [facility] 00:00:00 [code = DEPRESSION SCREENING Medical (12+)] [facility] Future Scheduled 2022-06-21 DEPRESSION SCREENING (12+) [facility] 00:00:00 [code = DEPRESSION SCREENING Medical (12+)] [facility] Future Scheduled 2022-06-21 DEPRESSION SCREENING (12+) [facility] 00:00:00 [code = DEPRESSION SCREENING Medical (12+)] [facility] Future Scheduled 2022-06-21 DEPRESSION SCREENING (12+) [facility] 00:00:00 [code = DEPRESSION SCREENING Medical (12+)] [facility] Future Scheduled 2022-06-21 DEPRESSION SCREENING (12+) [facility] 00:00:00 [code = DEPRESSION SCREENING Medical (12+)] [facility] Future Scheduled 2022-06-21 DEPRESSION SCREENING (12+) [facility] 00:00:00 [code = DEPRESSION SCREENING Medical (12+)] [facility] Future Scheduled 2022-06-21 DEPRESSION SCREENING (12+) [facility] 00:00:00 [code = DEPRESSION SCREENING Medical (12+)] [facility] Future Scheduled 2022-06-21 DEPRESSION SCREENING (12+) [facility] 00:00:00 [code = DEPRESSION SCREENING Medical (12+)] [facility] Future Scheduled 2022-06-21 DEPRESSION SCREENING (12+) [facility] 00:00:00 [code = DEPRESSION SCREENING Medical (12+)] [facility] Future Scheduled 2022-06-21 DEPRESSION SCREENING (12+) [facility] 00:00:00 [code = DEPRESSION SCREENING Medical (12+)] [facility] Future Scheduled 2022-06-21 DEPRESSION SCREENING (12+) [facility] 00:00:00 [code = DEPRESSION SCREENING Medical (12+)] [facility] Future Scheduled 2022-06-21 DEPRESSION SCREENING (12+) [facility] 00:00:00 [code = DEPRESSION SCREENING Medical (12+)] [facility] Future Scheduled 2022-06-21 DEPRESSION SCREENING (12+) [facility] 00:00:00 [code = DEPRESSION SCREENING Medical (12+)] [facility] Future Scheduled 2022-06-21 DEPRESSION SCREENING (12+) [facility] 00:00:00 [code = DEPRESSION SCREENING Medical (12+)] [facility] Future Scheduled 2022-06-21 DEPRESSION SCREENING (12+) [facility] 00:00:00 [code = DEPRESSION SCREENING Medical (12+)] [facility] Future Scheduled 2022-06-21 DEPRESSION SCREENING (12+) [facility] 00:00:00 [code = DEPRESSION SCREENING Medical (12+)] [facility] Future Scheduled 2022-06-21 DEPRESSION SCREENING (12+) [facility] 00:00:00 [code = DEPRESSION SCREENING Medical (12+)] [facility] Future Scheduled 2022-06-21 DEPRESSION SCREENING (12+) [facility] 00:00:00 [code = DEPRESSION SCREENING Medical (12+)] [facility] Future Scheduled 2022-06-21 DEPRESSION SCREENING (12+) [facility] 00:00:00 [code = DEPRESSION SCREENING Medical (12+)] [facility] Future Scheduled 2022-06-21 DEPRESSION SCREENING (12+) [facility] 00:00:00 [code = DEPRESSION SCREENING Medical (12+)] Center Future Scheduled 2022-02-19 INFLUENZA VACCINE (#1) [code = [facility] 00:00:00 INFLUENZA VACCINE (#1)] [facility] Scheduled 2022-02-19 INFLUENZA VACCINE (#1) [code = [facility] 00:00:00 INFLUENZA VACCINE (#1)] [facility] Scheduled 2022-02-19 INFLUENZA VACCINE (#1) [code = [facility] 00:00:00 INFLUENZA VACCINE (#1)] [facility] Scheduled 2022-02-19 INFLUENZA VACCINE (#1) [code = [facility] 00:00:00 INFLUENZA VACCINE (#1)] [facility] Scheduled 2022-02-19 INFLUENZA VACCINE (#1) [code = [facility] 00:00:00 INFLUENZA VACCINE (#1)] [facility] Scheduled 2022-02-19 INFLUENZA VACCINE (#1) [code = [facility] 00:00:00 INFLUENZA VACCINE (#1)] [facility] Scheduled 2021-12-[address] [facility] 00:00:00 (procedure) [code = [id number]] [facility] Scheduled 2021-12-03 [address]oglobin A[address]c measurement [facility] 00:00:00 (procedure) [code = [id number]] [facility] Scheduled 2021-12-03 Hemoglobin A1c measurement [facility] 00:00:00 (procedure) [code = [id number]] [facility] 2021-12-03 Hemoglobin A[address]c measurement [facility] 00:00:00 (procedure) [code = [id number]] [facility] 2021-12-03 Hemoglobin A[address]c measurement [facility] 00:00:00 (procedure) [code = [id number]] [facility] 2021-12-03 Hemoglobin A1c measurement [facility] 00:00:00 (procedure) [code = [id number]] [facility] 2021-12-03 Hemoglobin A[address]c measurement [facility] 00:00:00 (procedure) [code = [id number]] [facility] Future Scheduled 2021-12-03 Hemoglobin A[address]c measurement [facility] 00:00:00 (procedure) [code = [id number]] [facility] Scheduled 2021-12-03 Hemoglobin A1c measurement [facility] 00:00:00 (procedure) [code = [id number]] [facility] Future Scheduled 2021-12-03 Hemoglobin A1c measurement [facility] 00:00:00 (procedure) [code = [id number]] [facility] Scheduled 2021-12-03 Hemoglobin A1c measurement [facility] 00:00:00 (procedure) [code = [id number]] [facility] Future Scheduled 2021-12-03 Hemoglobin A1c measurement [facility] 00:00:00 (procedure) [code = 78617528] [facility] Future Scheduled 2021-12-03 Hemoglobin A1c measurement [facility] 00:00:00 (procedure) [code = 63812798] [facility] 2021-12-03 Hemoglobin A1c measurement [facility] 00:00:00 (procedure) [code = [id number]] [facility] Future Scheduled 2021-12-03 Hemoglobin A1c measurement [facility] 00:00:00 (procedure) [code = 22203956] [facility] 2021-12-03 Hemoglobin A1c measurement [facility] 00:00:00 (procedure) [code = 45686685] [facility] Future Scheduled 2021-12-03 Hemoglobin A1c measurement [facility] 00:00:00 (procedure) [code = 83907541] [facility] 2021-12-03 Hemoglobin A1c measurement [facility] 00:00:00 (procedure) [code = 32767117] [facility] 2021-12-03 Hemoglobin A1c measurement [facility] 00:00:00 (procedure) [code = [id number]] [facility] 2021-12-03 Hemoglobin A1c measurement [facility] 00:00:00 (procedure) [code = 39229070] [facility] 2021-12-03 Hemoglobin A1c measurement [facility] 00:00:00 (procedure) [code = 44860374] [facility] Future Scheduled 2021-12-03 Hemoglobin A1c measurement [facility] 00:00:00 (procedure) [code = 54151360] [facility] Future Scheduled 2021-12-03 Hemoglobin A1c measurement [facility] 00:00:00 (procedure) [code = 26921349] [facility] Scheduled 2021-12-03 Hemoglobin A1c measurement [facility] 00:00:00 (procedure) [code = 76942431] [facility] Scheduled 2021-12-03 Hemoglobin A1c measurement [facility] 00:00:00 (procedure) [code = 21421088] [facility] Scheduled 2021-12-03 Hemoglobin A1c measurement [facility] 00:00:00 (procedure) [code = 35786874] [facility] Scheduled 2021-12-03 Hemoglobin A1c measurement [facility] 00:00:00 (procedure) [code = 41910363] [facility] Scheduled 2021-12-03 Hemoglobin A1c measurement [facility] 00:00:00 (procedure) [code = 93370899] [facility] Future Scheduled 2021-12-03 Hemoglobin A1c measurement [facility] 00:00:00 (procedure) [code = 51866857] [facility] Scheduled 2021-12-03 Hemoglobin A1c measurement [facility] 00:00:00 (procedure) [code = 13063399] [facility] Future Scheduled 2021-12-03 Hemoglobin A1c measurement [facility] 00:00:00 (procedure) [code = 65687806] [facility] Future Scheduled 2021-12-03 Hemoglobin A1c measurement [facility] 00:00:00 (procedure) [code = 95776946] [facility] 2021-12-03 Hemoglobin A1c measurement [facility] 00:00:00 (procedure) [code = 69235812] [facility]uled 2021-12-03 Hemoglobin A1c measurement [facility] 00:00:00 (procedure) [code = 00364607] [facility]uled 2021-12-03 Hemoglobin A1c measurement [facility] 00:00:00 (procedure) [code = 30007181] [facility] 2021-12-03 Hemoglobin A1c measurement [facility] 00:00:00 (procedure) [code = 38695244] [facility] 2021-12-03 Hemoglobin A1c measurement [facility] 00:00:00 (procedure) [code = 29358021] [facility] 2021-12-03 Hemoglobin A1c measurement [facility] 00:00:00 (procedure) [code = 27315950] [facility] 2021-12-03 Hemoglobin A1c measurement [facility] 00:00:00 (procedure) [code = 39256046] [facility] 2021-12-03 Hemoglobin A1c measurement [facility] 00:00:00 (procedure) [code = 02583597] [facility] 2021-12-03 Hemoglobin A1c measurement [facility] 00:00:00 (procedure) [code = 76380310] [facility]uled 2021-12-03 Hemoglobin A1c measurement [facility] 00:00:00 (procedure) [code = 77237410] [facility]uled 2021-06-21 DEPRESSION SCREENING (12+) [facility] 00:00:00 [code = DEPRESSION SCREENING Medical (12+)] Center Future Scheduled 2021-06-21 DEPRESSION SCREENING (12+) [facility] 00:00:00 [code = DEPRESSION SCREENING Medical (12+)] Center Future Scheduled 2021-06-21 DEPRESSION SCREENING (12+) [facility] 00:00:00 [code = DEPRESSION SCREENING Medical (12+)] Center Future Scheduled 2021-06-21 DEPRESSION SCREENING (12+) [facility] 00:00:00 [code = DEPRESSION SCREENING Medical (12+)] Center Future Scheduled 2021-06-21 DEPRESSION SCREENING (12+) [facility] 00:00:00 [code = DEPRESSION SCREENING Medical (12+)] Center Future Scheduled 2021-06-21 DEPRESSION SCREENING (12+) [facility] 00:00:00 [code = DEPRESSION SCREENING Medical (12+)] Center Future Scheduled 2021-06-21 DEPRESSION SCREENING (12+) [facility] 00:00:00 [code = DEPRESSION SCREENING Medical (12+)] [facility] Scheduled 2021-02-19 INFLUENZA VACCINE (#1) [code = [facility] 00:00:00 INFLUENZA VACCINE (#1)] [facility] Scheduled 2021-02-19 INFLUENZA VACCINE (#1) [code = [facility] 00:00:00 INFLUENZA VACCINE (#1)] [facility] Scheduled 2020-02-21 SHINGLES VACCINES (1 of 2) [facility] 00:00:00 [code = SHINGLES VACCINES (1 of Medical 2)] Center Future Scheduled 2020-02-21 SHINGLES VACCINES (1 of 2) [facility] 00:00:00 [code = SHINGLES VACCINES (1 of Medical 2)] Center Future Scheduled 2020-02-21 SHINGLES VACCINES (1 of 2) [facility] 00:00:00 [code = SHINGLES VACCINES (1 of Medical 2)] [facility] Future Scheduled 2020-02-21 SHINGLES VACCINES (1 of 2) [facility] 00:00:00 [code = SHINGLES VACCINES (1 of Medical 2)] [facility] Future Scheduled 2020-02-21 SHINGLES VACCINES (1 of 2) [facility] 00:00:00 [code = SHINGLES VACCINES (1 of Medical 2)] Center Future Scheduled 2020-02-21 SHINGLES VACCINES (1 of 2) [facility] 00:00:00 [code = SHINGLES VACCINES (1 of Medical 2)] Center Future Scheduled 2020-02-21 SHINGLES VACCINES (1 of 2) [facility] 00:00:00 [code = SHINGLES VACCINES (1 of Medical 2)] [facility] Future Scheduled 2020-02-21 SHINGLES VACCINES (1 of 2) [facility] 00:00:00 [code = SHINGLES VACCINES (1 of Medical 2)] [facility] Future Scheduled 2020-02-21 SHINGLES VACCINES (1 of 2) [facility] 00:00:00 [code = SHINGLES VACCINES (1 of Medical 2)] [facility] Future Scheduled 2020-02-21 SHINGLES VACCINES (1 of 2) [facility] 00:00:00 [code = SHINGLES VACCINES (1 of Medical 2)] [facility] Future Scheduled 2020-02-21 SHINGLES VACCINES (1 of 2) [facility] 00:00:00 [code = SHINGLES VACCINES (1 of Medical 2)] [facility] Future Scheduled 2020-02-21 SHINGLES VACCINES (1 of 2) [facility] 00:00:00 [code = SHINGLES VACCINES (1 of Medical 2)] [facility] Future Scheduled 2020-02-21 SHINGLES VACCINES (1 of 2) [facility] 00:00:00 [code = SHINGLES VACCINES (1 of Medical 2)] [facility] Future Scheduled 2020-02-21 SHINGLES VACCINES (1 of 2) [facility] 00:00:00 [code = SHINGLES VACCINES (1 of Medical 2)] [facility] Future Scheduled 2020-02-21 SHINGLES VACCINES (1 of 2) [facility] 00:00:00 [code = SHINGLES VACCINES (1 of Medical 2)] [facility] Future Scheduled 2020-02-21 SHINGLES VACCINES (1 of 2) [facility] 00:00:00 [code = SHINGLES VACCINES (1 of Medical 2)] [facility] Future Scheduled 2020-02-21 SHINGLES VACCINES (1 of 2) [facility] 00:00:00 [code = SHINGLES VACCINES (1 of Medical 2)] [facility] Future Scheduled 2020-02-21 SHINGLES VACCINES (1 of 2) [facility] 00:00:00 [code = SHINGLES VACCINES (1 of Medical 2)] [facility] Future Scheduled 2020-02-21 SHINGLES VACCINES (1 of 2) [facility] 00:00:00 [code = SHINGLES VACCINES (1 of Medical 2)] [facility] Future Scheduled 2020-02-21 SHINGLES VACCINES (1 of 2) [facility] 00:00:00 [code = SHINGLES VACCINES (1 of Medical 2)] [facility] Future Scheduled 2020-02-21 SHINGLES VACCINES (1 of 2) [facility] 00:00:00 [code = SHINGLES VACCINES (1 of Medical 2)] [facility] Future Scheduled 2020-02-21 SHINGLES VACCINES (1 of 2) [facility] 00:00:00 [code = SHINGLES VACCINES (1 of Medical 2)] [facility] Future Scheduled 2020-02-21 SHINGLES VACCINES (1 of 2) [facility] 00:00:00 [code = SHINGLES VACCINES (1 of Medical 2)] [facility] Future Scheduled 2020-02-21 SHINGLES VACCINES (1 of 2) [facility] 00:00:00 [code = SHINGLES VACCINES (1 of Medical 2)] [facility] Future Scheduled 2020-02-21 SHINGLES VACCINES (1 of 2) [facility] 00:00:00 [code = SHINGLES VACCINES (1 of Medical 2)] [facility] Future Scheduled 2020-02-21 SHINGLES VACCINES (1 of 2) [facility] 00:00:00 [code = SHINGLES VACCINES (1 of Medical 2)] Center Future Scheduled 2020-02-21 SHINGLES VACCINES (1 of 2) [facility] 00:00:00 [code = SHINGLES VACCINES (1 of Medical 2)] [facility] Future Scheduled 2020-02-21 SHINGLES VACCINES (1 of 2) [facility] 00:00:00 [code = SHINGLES VACCINES (1 of Medical 2)] [facility] Future Scheduled 2020-02-21 SHINGLES VACCINES (1 of 2) [facility] 00:00:00 [code = SHINGLES VACCINES (1 of Medical 2)] [facility] Future Scheduled 2020-02-21 SHINGLES VACCINES (1 of 2) [facility] 00:00:00 [code = SHINGLES VACCINES (1 of Medical 2)] Center Future Scheduled 2020-02-21 SHINGLES VACCINES (1 of 2) [facility] 00:00:00 [code = SHINGLES VACCINES (1 of Medical 2)] [facility] Future Scheduled 2020-02-21 SHINGLES VACCINES (1 of 2) [facility] 00:00:00 [code = SHINGLES VACCINES (1 of Medical 2)] [facility] Future Scheduled 2020-02-21 SHINGLES VACCINES (1 of 2) [facility] 00:00:00 [code = SHINGLES VACCINES (1 of Medical 2)] Center Future Scheduled 2020-02-21 SHINGLES VACCINES (1 of 2) [facility] 00:00:00 [code = SHINGLES VACCINES (1 of Medical 2)] Center Future Scheduled 2020-02-21 SHINGLES VACCINES (1 of 2) [facility] 00:00:00 [code = SHINGLES VACCINES (1 of Medical 2)] [facility] Future Scheduled 2020-02-21 SHINGLES VACCINES (1 of 2) [facility] 00:00:00 [code = SHINGLES VACCINES (1 of Medical 2)] Center Future Scheduled 2020-02-21 SHINGLES VACCINES (1 of 2) [facility] 00:00:00 [code = SHINGLES VACCINES (1 of Medical 2)] [facility] Future Scheduled 2020-02-21 SHINGLES VACCINES (1 of 2) [facility] 00:00:00 [code = SHINGLES VACCINES (1 of Medical 2)] [facility] Future Scheduled 2020-02-21 SHINGLES VACCINES (1 of 2) [facility] 00:00:00 [code = SHINGLES VACCINES (1 of Medical 2)] Center Future Scheduled 2020-02-21 SHINGLES VACCINES (1 of 2) [facility] 00:00:00 [code = SHINGLES VACCINES (1 of Medical 2)] [facility] Future Scheduled 2020-02-21 SHINGLES VACCINES (1 of 2) [facility] 00:00:00 [code = SHINGLES VACCINES (1 of Medical 2)] [facility] Future Scheduled 2020-02-21 SHINGLES VACCINES (1 of 2) [facility] 00:00:00 [code = SHINGLES VACCINES (1 of Medical 2)] Center Future Scheduled 2014-08-22 Screening for malignant [facility] 00:00:00 neoplasm of breast (procedure) Medical [code = [id number]] [facility] Future Scheduled 2014-08-22 Screening for malignant [facility] 00:00:00 neoplasm of breast (procedure) Medical [code = [id number]] [facility] Future Scheduled 1991 Screening for malignant [facility] 00:00:00 neoplasm of cervix (procedure) Medical [code = [id number]] [facility] Future Scheduled 1991 Screening for malignant [facility] 00:00:00 neoplasm of cervix (procedure) Medical [code = [id number]] [facility] Future Scheduled 1991 Screening for malignant [facility] 00:00:00 neoplasm of cervix (procedure) Medical [code = [id number]] [facility] Future Scheduled 1991 Screening for malignant [facility] 00:00:00 neoplasm of cervix (procedure) Medical [code = [id number]] [facility] Future Scheduled 1991 Screening for malignant [facility] 00:00:00 neoplasm of cervix (procedure) Medical [code = [id number]] [facility] Future Scheduled 1991 Screening for malignant [facility] 00:00:00 neoplasm of cervix (procedure) Medical [code = [id number]] [facility] Future Scheduled 1991 Screening for malignant [facility] 00:00:00 neoplasm of cervix (procedure) Medical [code = [id number]] [facility] Future Scheduled [address] Screening for malignant [facility] 00:00:00 neoplasm of cervix (procedure) Medical [code = [id number]] [facility] Future Scheduled 1991 Screening for malignant [facility] 00:00:00 neoplasm of cervix (procedure) Medical [code = [id number]] [facility] Future Scheduled 1991 Screening for malignant [facility] 00:00:00 neoplasm of cervix (procedure) Medical [code = [id number]] [facility] Future Scheduled 1991 Screening for malignant [facility] 00:00:00 neoplasm of cervix (procedure) Medical [code = [id number]] [facility] Future Scheduled [address] Screening for malignant [facility] 00:00:00 neoplasm of cervix (procedure) Medical [code = [id number]] [facility] Future Scheduled [address] Screening for malignant [facility] 00:00:00 neoplasm of cervix (procedure) Medical [code = [id number]] [facility] Future Scheduled [address] Screening for malignant [facility] 00:00:00 neoplasm of cervix (procedure) Medical [code = 777303478] [facility] Future Scheduled [address] Screening for malignant [facility] 00:00:00 neoplasm of cervix (procedure) Medical [code = [id number]] [facility] Future Scheduled [address] Screening for malignant [facility] 00:00:00 neoplasm of cervix (procedure) Medical [code = 496953102] [facility] Future Scheduled [address] Screening for malignant [facility] 00:00:00 neoplasm of cervix (procedure) Medical [code = 230509894] [facility] Future Scheduled [address] Screening for malignant [facility] 00:00:00 neoplasm of cervix (procedure) Medical [code = 559426428] [facility] Future Scheduled [address] Screening for malignant [facility] 00:00:00 neoplasm of cervix (procedure) Medical [code = 756711108] [facility] Future Scheduled [address] Screening for malignant [facility] 00:00:00 neoplasm of cervix (procedure) Medical [code = 181689391] [facility] Future Scheduled [address] Screening for malignant [facility] 00:00:00 neoplasm of cervix (procedure) Medical [code = 260751895] [facility] Future Scheduled [address] Screening for malignant [facility] 00:00:00 neoplasm of cervix (procedure) Medical [code = [id number]] [facility] Future Scheduled [address] Screening for malignant [facility] 00:00:00 neoplasm of cervix (procedure) Medical [code = 613120838] [facility] Future Scheduled [address] Screening for malignant [facility] 00:00:00 neoplasm of cervix (procedure) Medical [code = 397404416] [facility] Future Scheduled [address] Screening for malignant [facility] 00:00:00 neoplasm of cervix (procedure) Medical [code = 860172421] [facility] Future Scheduled [address] Screening for malignant [facility] 00:00:00 neoplasm of cervix (procedure) Medical [code = 760106980] [facility] Future Scheduled [address] Screening for malignant [facility] 00:00:00 neoplasm of cervix (procedure) Medical [code = [id number]] [facility] Future Scheduled [address] Screening for malignant [facility] 00:00:00 neoplasm of cervix (procedure) Medical [code = 637192946] [facility] Future Scheduled [address] Screening for malignant [facility] 00:00:00 neoplasm of cervix (procedure) Medical [code = 962721062] [facility] Future Scheduled [address] Screening for malignant [facility] 00:00:00 neoplasm of cervix (procedure) Medical [code = 660463553] [facility] Future Scheduled [address] Screening for malignant [facility] 00:00:00 neoplasm of cervix (procedure) Medical [code = 443242401] [facility] Future Scheduled [address] Screening for malignant [facility] 00:00:00 neoplasm of cervix (procedure) Medical [code = 269066853] [facility] Future Scheduled [address] Screening for malignant [facility] 00:00:00 neoplasm of cervix (procedure) Medical [code = 940941267] [facility] Future Scheduled [address] Screening for malignant [facility] 00:00:00 neoplasm of cervix (procedure) Medical [code = 758033689] [facility] Future Scheduled [address] Screening for malignant [facility] 00:00:00 neoplasm of cervix (procedure) Medical [code = [id number]] [facility] Future Scheduled 1991 Screening for malignant [facility] 00:00:00 neoplasm of cervix (procedure) Medical [code = 569286149] [facility] Future Scheduled [address] Screening for malignant [facility] 00:00:00 neoplasm of cervix (procedure) Medical [code = [id number]] [facility] Future Scheduled [address] Screening for malignant [facility] 00:00:00 neoplasm of cervix (procedure) Medical [code = [id number]] [facility] Future Scheduled [address] Screening for malignant [facility] 00:00:00 neoplasm of cervix (procedure) Medical [code = 695699341] [facility] Future Scheduled [address] Screening for malignant [facility] 00:00:00 neoplasm of cervix (procedure) Medical [code = [id number]] [facility] Future Scheduled [address] Screening for malignant [facility] 00:00:00 neoplasm of cervix (procedure) Medical [code = 486048327] [facility] Future Scheduled [address] Screening for malignant [facility] 00:00:00 neoplasm of cervix (procedure) Medical [code = 575530235] [facility] Future Scheduled 1989 DTAP/TDAP/TD VACCINES (1 - [facility] 00:00:00 Tdap) [code = DTAP/TDAP/TD M edical VACCINES (1 - Tdap)] [facility] Future Scheduled 1989 DTAP/TDAP/TD VACCINES (1 - [facility] 00:00:00 Tdap) [code = DTAP/TDAP/TD M edical VACCINES (1 - Tdap)] [facility] Future Scheduled 1989 DTAP/TDAP/TD VACCINES (1 - [facility] 00:00:00 Tdap) [code = DTAP/TDAP/TD M edical VACCINES (1 - Tdap)] [facility] Future Scheduled 1989 DTAP/TDAP/TD VACCINES (1 - [facility] 00:00:00 Tdap) [code = DTAP/TDAP/TD M edical VACCINES (1 - Tdap)] [facility] Future Scheduled 1989 DTAP/TDAP/TD VACCINES (1 - [facility] 00:00:00 Tdap) [code = DTAP/TDAP/TD M edical VACCINES (1 - Tdap)] [facility] Future Scheduled 1989 DTAP/TDAP/TD VACCINES (1 - [facility] 00:00:00 Tdap) [code = DTAP/TDAP/TD M edical VACCINES (1 - Tdap)] [facility] Future Scheduled 1989 DTAP/TDAP/TD VACCINES (1 - [facility] 00:00:00 Tdap) [code = DTAP/TDAP/TD M edical VACCINES (1 - Tdap)] [facility] Future Scheduled 1989 DTAP/TDAP/TD VACCINES (1 - [facility] 00:00:00 Tdap) [code = DTAP/TDAP/TD M edical VACCINES (1 - Tdap)] [facility] Future Scheduled 1989 DTAP/TDAP/TD VACCINES (1 - [facility] 00:00:00 Tdap) [code = DTAP/TDAP/TD M edical VACCINES (1 - Tdap)] [facility] Future Scheduled 1989 DTAP/TDAP/TD VACCINES (1 - [facility] 00:00:00 Tdap) [code = DTAP/TDAP/TD M edical VACCINES (1 - Tdap)] [facility] Future Scheduled 1989 DTAP/TDAP/TD VACCINES (1 - [facility] 00:00:00 Tdap) [code = DTAP/TDAP/TD M edical VACCINES (1 - Tdap)] [facility] Future Scheduled 1989 DTAP/TDAP/TD VACCINES (1 - [facility] 00:00:00 Tdap) [code = DTAP/TDAP/TD M edical VACCINES (1 - Tdap)] [facility] Future Scheduled 1989 DTAP/TDAP/TD VACCINES (1 - [facility] 00:00:00 Tdap) [code = DTAP/TDAP/TD M edical VACCINES (1 - Tdap)] [facility] Future Scheduled 1989 DTAP/TDAP/TD VACCINES (1 - [facility] 00:00:00 Tdap) [code = DTAP/TDAP/TD M edical VACCINES (1 - Tdap)] [facility] Future Scheduled 1989 DTAP/TDAP/TD VACCINES (1 - [facility] 00:00:00 Tdap) [code = DTAP/TDAP/TD M edical VACCINES (1 - Tdap)] [facility] Future Scheduled 1989 DTAP/TDAP/TD VACCINES (1 - [facility] 00:00:00 Tdap) [code = DTAP/TDAP/TD M edical VACCINES (1 - Tdap)] [facility] Future Scheduled 1989 DTAP/TDAP/TD VACCINES (1 - [facility] 00:00:00 Tdap) [code = DTAP/TDAP/TD M edical VACCINES (1 - Tdap)] [facility] Future Scheduled 1989 DTAP/TDAP/TD VACCINES (1 - [facility] 00:00:00 Tdap) [code = DTAP/TDAP/TD M edical VACCINES (1 - Tdap)] [facility] Future Scheduled 1989 DTAP/TDAP/TD VACCINES (1 - [facility] 00:00:00 Tdap) [code = DTAP/TDAP/TD M edical VACCINES (1 - Tdap)] [facility] Future Scheduled 1989 DTAP/TDAP/TD VACCINES (1 - [facility] 00:00:00 Tdap) [code = DTAP/TDAP/TD M edical VACCINES (1 - Tdap)] [facility] Future Scheduled 1989 DTAP/TDAP/TD VACCINES (1 - [facility] 00:00:00 Tdap) [code = DTAP/TDAP/TD M edical VACCINES (1 - Tdap)] [facility] Future Scheduled 1989 DTAP/TDAP/TD VACCINES (1 - [facility] 00:00:00 Tdap) [code = DTAP/TDAP/TD M edical VACCINES (1 - Tdap)] [facility] Future Scheduled 1989 DTAP/TDAP/TD VACCINES (1 - [facility] 00:00:00 Tdap) [code = DTAP/TDAP/TD M edical VACCINES (1 - Tdap)] [facility] Future Scheduled 1989 DTAP/TDAP/TD VACCINES (1 - [facility] 00:00:00 Tdap) [code = DTAP/TDAP/TD M edical VACCINES (1 - Tdap)] [facility] Future Scheduled 1989 DTAP/TDAP/TD VACCINES (1 - [facility] 00:00:00 Tdap) [code = DTAP/TDAP/TD M edical VACCINES (1 - Tdap)] [facility] Future Scheduled 1989 DTAP/TDAP/TD VACCINES (1 - [facility] 00:00:00 Tdap) [code = DTAP/TDAP/TD M edical VACCINES (1 - Tdap)] [facility] Future Scheduled 1989 DTAP/TDAP/TD VACCINES (1 - [facility] 00:00:00 Tdap) [code = DTAP/TDAP/TD M edical VACCINES (1 - Tdap)] [facility] Future Scheduled 1989 DTAP/TDAP/TD VACCINES (1 - [facility] 00:00:00 Tdap) [code = DTAP/TDAP/TD M edical VACCINES (1 - Tdap)] [facility] Future Scheduled 1989 DTAP/TDAP/TD VACCINES (1 - [facility] 00:00:00 Tdap) [code = DTAP/TDAP/TD M edical VACCINES (1 - Tdap)] [facility] Future Scheduled 1989 DTAP/TDAP/TD VACCINES (1 - [facility] 00:00:00 Tdap) [code = DTAP/TDAP/TD M edical VACCINES (1 - Tdap)] [facility] Future Scheduled 1989 DTAP/TDAP/TD VACCINES (1 - [facility] 00:00:00 Tdap) [code = DTAP/TDAP/TD M edical VACCINES (1 - Tdap)] [facility] Future Scheduled 1989 DTAP/TDAP/TD VACCINES (1 - [facility] 00:00:00 Tdap) [code = DTAP/TDAP/TD M edical VACCINES (1 - Tdap)] [facility] Future Scheduled 1989 DTAP/TDAP/TD VACCINES (1 - [facility] 00:00:00 Tdap) [code = DTAP/TDAP/TD M edical VACCINES (1 - Tdap)] [facility] Future Scheduled 1989 DTAP/TDAP/TD VACCINES (1 - [facility] 00:00:00 Tdap) [code = DTAP/TDAP/TD M edical VACCINES (1 - Tdap)] [facility] Future Scheduled 1989 DTAP/TDAP/TD VACCINES (1 - [facility] 00:00:00 Tdap) [code = DTAP/TDAP/TD M edical VACCINES (1 - Tdap)] [facility] Future Scheduled 1989 DTAP/TDAP/TD VACCINES (1 - [facility] 00:00:00 Tdap) [code = DTAP/TDAP/TD M edical VACCINES (1 - Tdap)] [facility] Future Scheduled 1989 DTAP/TDAP/TD VACCINES (1 - [facility] 00:00:00 Tdap) [code = DTAP/TDAP/TD M edical VACCINES (1 - Tdap)] Center Future Scheduled 1989 DTAP/TDAP/TD VACCINES (1 - [facility] 00:00:00 Tdap) [code = DTAP/TDAP/TD M edical VACCINES (1 - Tdap)] Center Future Scheduled 1989 DTAP/TDAP/TD VACCINES (1 - [facility] 00:00:00 Tdap) [code = DTAP/TDAP/TD M edical VACCINES (1 - Tdap)] Center Future Scheduled 1989 DTAP/TDAP/TD VACCINES (1 - [facility] 00:00:00 Tdap) [code = DTAP/TDAP/TD M edical VACCINES (1 - Tdap)] Center Future Scheduled 1989 DTAP/TDAP/TD VACCINES (1 - [facility] 00:00:00 Tdap) [code = DTAP/TDAP/TD M edical VACCINES (1 - Tdap)] [facility] Future Scheduled 1989 DTAP/TDAP/TD VACCINES (1 - [facility] 00:00:00 Tdap) [code = DTAP/TDAP/TD M edical VACCINES (1 - Tdap)] [facility] Future Scheduled 1982 COVID-19 VACCINE (1) [code = [facility] 00:00:00 COVID-19 VACCINE (1)] [facility] Future Scheduled 1982 COVID-19 VACCINE (1) [code = [facility] 00:00:00 COVID-19 VACCINE (1)] [facility] Future Scheduled 1980-02-21 DIABETIC EYE EXAM [code = [facility] 00:00:00 DIABETIC EYE EXAM] [facility] Future Scheduled 1980-02-21 Diabetic foot examination [facility] 00:00:00 (regime/therapy) [code = Med ical [id number]] [facility] Future Scheduled 1980-02-21 Urine screening for protein [facility] 00:00:00 (procedure) [code = 487313236] [facility] Future Scheduled 1980-02-21 DIABETIC EYE EXAM [code = [facility] 00:00:00 DIABETIC EYE EXAM] [facility] Future Scheduled 1980-02-21 Diabetic foot examination [facility] 00:00:00 (regime/therapy) [code = Med ical [id number]] Center Future Scheduled 1980-02-21 Urine screening for protein [facility] 00:00:00 (procedure) [code = 673919356] [facility] Future Scheduled 1980-02-21 DIABETIC EYE EXAM [code = [facility] 00:00:00 DIABETIC EYE EXAM] [facility] Future Scheduled 1980-02-21 Diabetic foot examination [facility] 00:00:00 (regime/therapy) [code = Med ical [id number]] Center Future Scheduled 1980-02-21 Urine screening for protein [facility] 00:00:00 (procedure) [code = 419942480] [facility] Future Scheduled 1980-02-21 DIABETIC EYE EXAM [code = [facility] 00:00:00 DIABETIC EYE EXAM] [facility] Future Scheduled 1980-02-21 Diabetic foot examination [facility] 00:00:00 (regime/therapy) [code = Med ical [id number]] Center Future Scheduled 1980-02-21 Urine screening for protein [facility] 00:00:00 (procedure) [code = 833667213] [facility] Future Scheduled 1980-02-21 DIABETIC EYE EXAM [code = [facility] 00:00:00 DIABETIC EYE EXAM] [facility] Future Scheduled 1980-02-21 Urine screening for protein [facility] 00:00:00 (procedure) [code = 798971261] [facility] Future Scheduled 1980-02-21 DIABETIC EYE EXAM [code = [facility] 00:00:00 DIABETIC EYE EXAM] [facility] Future Scheduled 1980-02-21 Urine screening for protein [facility] 00:00:00 (procedure) [code = 464907870] [facility] Future Scheduled 1980-02-21 DIABETIC EYE EXAM [code = [facility] 00:00:00 DIABETIC EYE EXAM] [facility] Future Scheduled 1980-02-21 Urine screening for protein [facility] 00:00:00 (procedure) [code = 460213178] [facility] Future Scheduled 1980-02-21 DIABETIC EYE EXAM [code = [facility] 00:00:00 DIABETIC EYE EXAM] [facility] Future Scheduled 1980-02-21 Urine screening for protein [facility] 00:00:00 (procedure) [code = 700467120] [facility] Future Scheduled 1980-02-21 DIABETIC EYE EXAM [code = [facility] 00:00:00 DIABETIC EYE EXAM] [facility] Future Scheduled 1980-02-21 Urine screening for protein [facility] 00:00:00 (procedure) [code = 811869435] [facility] Future Scheduled 1980-02-21 DIABETIC EYE EXAM [code = [facility] 00:00:00 DIABETIC EYE EXAM] [facility] Future Scheduled 1980-02-21 Urine screening for protein [facility] 00:00:00 (procedure) [code = 178510648] [facility] Future Scheduled 1980-02-21 DIABETIC EYE EXAM [code = [facility] 00:00:00 DIABETIC EYE EXAM] [facility] Future Scheduled 1980-02-21 Urine screening for protein [facility] 00:00:00 (procedure) [code = 156843351] [facility] Future Scheduled 1980-02-21 DIABETIC EYE EXAM [code = [facility] 00:00:00 DIABETIC EYE EXAM] [facility] Future Scheduled 1980-02-21 Urine screening for protein [facility] 00:00:00 (procedure) [code = 386121032] [facility] Future Scheduled 1980-02-21 DIABETIC EYE EXAM [code = [facility] 00:00:00 DIABETIC EYE EXAM] [facility] Future Scheduled 1980-02-21 Urine screening for protein [facility] 00:00:00 (procedure) [code = 157449751] [facility] Future Scheduled 1980-02-21 DIABETIC EYE EXAM [code = [facility] 00:00:00 DIABETIC EYE EXAM] [facility] Future Scheduled 1980-02-21 Urine screening for protein [facility] 00:00:00 (procedure) [code = 915662056] [facility] Future Scheduled 1980-02-21 DIABETIC EYE EXAM [code = [facility] 00:00:00 DIABETIC EYE EXAM] [facility] Future Scheduled 1980-02-21 Urine screening for protein [facility] 00:00:00 (procedure) [code = 701400094] [facility] Future Scheduled 1980-02-21 DIABETIC EYE EXAM [code = [facility] 00:00:00 DIABETIC EYE EXAM] [facility] Future Scheduled 1980-02-21 Urine screening for protein [facility] 00:00:00 (procedure) [code = 458906821] [facility] Future Scheduled 1980-02-21 DIABETIC EYE EXAM [code = [facility] 00:00:00 DIABETIC EYE EXAM] [facility] Future Scheduled 1980-02-21 Urine screening for protein [facility] 00:00:00 (procedure) [code = 202579033] [facility] Future Scheduled 1980-02-21 DIABETIC EYE EXAM [code = [facility] 00:00:00 DIABETIC EYE EXAM] [facility] Future Scheduled 1980-02-21 Urine screening for protein [facility] 00:00:00 (procedure) [code = 804871375] [facility] Future Scheduled 1980-02-21 DIABETIC EYE EXAM [code = [facility] 00:00:00 DIABETIC EYE EXAM] [facility] Future Scheduled 1980-02-21 Urine screening for protein [facility] 00:00:00 (procedure) [code = 189441008] [facility] Future Scheduled 1980-02-21 DIABETIC EYE EXAM [code = [facility] 00:00:00 DIABETIC EYE EXAM] [facility] Future Scheduled 1980-02-21 Urine screening for protein [facility] 00:00:00 (procedure) [code = 817936710] [facility] Future Scheduled 1980-02-21 DIABETIC EYE EXAM [code = [facility] 00:00:00 DIABETIC EYE EXAM] [facility] Future Scheduled 1980-02-21 Urine screening for protein [facility] 00:00:00 (procedure) [code = 906203003] [facility] Future Scheduled 1980-02-21 DIABETIC EYE EXAM [code = [facility] 00:00:00 DIABETIC EYE EXAM] [facility] Future Scheduled 1980-02-21 Urine screening for protein [facility] 00:00:00 (procedure) [code = [id number]] [facility] Future Scheduled 1980-02-21 DIABETIC EYE EXAM [code = [facility] 00:00:00 DIABETIC EYE EXAM] [facility] Future Scheduled 1980-02-21 Urine screening for protein [facility] 00:00:00 (procedure) [code = [id number]] [facility] Future Scheduled 1980-02-21 DIABETIC EYE EXAM [code = [facility] 00:00:00 DIABETIC EYE EXAM] [facility] Future Scheduled 1980-02-21 Urine screening for protein [facility] 00:00:00 (procedure) [code = [id number]] [facility] Future Scheduled 1980-02-21 DIABETIC EYE EXAM [code = [facility] 00:00:00 DIABETIC EYE EXAM] [facility] Future Scheduled 1980-02-21 Urine screening for protein [facility] 00:00:00 (procedure) [code = [id number]] [facility] Future Scheduled 1980-02-21 DIABETIC EYE EXAM [code = [facility] 00:00:00 DIABETIC EYE EXAM] [facility] Future Scheduled 1980-02-21 Urine screening for protein [facility] 00:00:00 (procedure) [code = [id number]] [facility] Future Scheduled 1980-02-21 DIABETIC EYE EXAM [code = [facility] 00:00:00 DIABETIC EYE EXAM] [facility] Future Scheduled 1980-02-21 Urine screening for protein [facility] 00:00:00 (procedure) [code = [id number]] [facility] Future Scheduled 1980-02-21 DIABETIC EYE EXAM [code = [facility] 00:00:00 DIABETIC EYE EXAM] [facility] Future Scheduled 1980-02-21 Urine screening for protein [facility] 00:00:00 (procedure) [code = [id number]] [facility] Future Scheduled 1980-02-21 DIABETIC EYE EXAM [code = [facility] 00:00:00 DIABETIC EYE EXAM] [facility] Future Scheduled 1980-02-21 Urine screening for protein [facility] 00:00:00 (procedure) [code = [id number]] [facility] Future Scheduled 1980-02-21 DIABETIC EYE EXAM [code = [facility] 00:00:00 DIABETIC EYE EXAM] [facility] Future Scheduled 1980-02-21 Urine screening for protein [facility] 00:00:00 (procedure) [code = [id number]] [facility] Future Scheduled 1980-02-21 DIABETIC EYE EXAM [code = [facility] 00:00:00 DIABETIC EYE EXAM] [facility] Future Scheduled 1980-02-21 Urine screening for protein [facility] 00:00:00 (procedure) [code = [id number]] [facility] Future Scheduled 1980-02-21 DIABETIC EYE EXAM [code = [facility] 00:00:00 DIABETIC EYE EXAM] [facility] Future Scheduled 1980-02-21 Urine screening for protein [facility] 00:00:00 (procedure) [code = [id number]] [facility] Future Scheduled 1980-02-21 DIABETIC EYE EXAM [code = [facility] 00:00:00 DIABETIC EYE EXAM] [facility] Future Scheduled 1980-02-21 Urine screening for protein [facility] 00:00:00 (procedure) [code = [id number]] Medical Center Future Scheduled 1980-02-21 DIABETIC EYE EXAM [code = [facility] 00:00:00 DIABETIC EYE EXAM] [facility] Future Scheduled 1980-02-21 Urine screening for protein [facility] 00:00:00 (procedure) [code = [id number]] Medical Center Future Scheduled 1980-02-21 DIABETIC EYE EXAM [code = [facility] 00:00:00 DIABETIC EYE EXAM] [facility] Future Scheduled 1980-02-21 Urine screening for protein [facility] 00:00:00 (procedure) [code = [id number]] [facility] Future [facility]uled 1980-02-21 DIABETIC EYE EXAM [code = [facility] 00:00:00 DIABETIC EYE EXAM] [facility] Future Scheduled 1980-02-21 Urine screening for protein [facility] 00:00:00 (procedure) [code = [id number]] [facility] Future Scheduled 1980-02-21 DIABETIC EYE EXAM [code = [facility] 00:00:00 DIABETIC EYE EXAM] [facility] Future Scheduled 1980-02-21 Urine screening for protein [facility] 00:00:00 (procedure) [code = [id number]] [facility] Future Scheduled 1980-02-21 DIABETIC EYE EXAM [code = [facility] 00:00:00 DIABETIC EYE EXAM] [facility] Future Scheduled 1980-02-21 Urine screening for protein [facility] 00:00:00 (procedure) [code = [id number]] [facility] Future Scheduled 1980-02-21 DIABETIC EYE EXAM [code = [facility] 00:00:00 DIABETIC EYE EXAM] [facility] Future Scheduled 1980-02-21 Urine screening for protein [facility] 00:00:00 (procedure) [code = [id number]] [facility] Future Scheduled 1980-02-21 DIABETIC EYE EXAM [code = [facility] 00:00:00 DIABETIC EYE EXAM] [facility] Future Scheduled 1980-02-21 Diabetic foot examination [facility] 00:00:00 (regime/therapy) [code = Med ical [id number]] Center Future Scheduled 1980-02-21 Urine screening for protein [facility] 00:00:00 (procedure) [code = [id number]] [facility] Future Scheduled 1980-02-21 DIABETIC EYE EXAM [code = [facility] 00:00:00 DIABETIC EYE EXAM] [facility] Future Scheduled 1980-02-21 Diabetic foot examination [facility] 00:00:00 (regime/therapy) [code = Med ical [id number]] Center Future Scheduled 1980-02-21 Urine screening for protein [facility] 00:00:00 (procedure) [code = [id number]] [facility] Future Scheduled 1980-02-21 DIABETIC EYE EXAM [code = [facility] 00:00:00 DIABETIC EYE EXAM] [facility] Future Scheduled 1980-02-21 Diabetic foot examination [facility] 00:00:00 (regime/therapy) [code = Med ical [id number]] Center Future Scheduled 1980-02-21 Urine screening for protein [facility] 00:00:00 (procedure) [code = [id number]] Medical Center Future Scheduled 1976-02-21 PNEUMOCOCCAL VACCINE 0-[address] [facility] 00:00:00 (1 - PCV) [code = PNEUMOCOCCAL Medical VACCINE 0-64 YRS (1 - PCV)] Center Future Scheduled 1976-02-21 PNEUMOCOCCAL VACCINE 0-[address] [facility] 00:00:00 (1 - PCV) [code = PNEUMOCOCCAL Medical VACCINE 0-64 YRS (1 - PCV)] Center Future Scheduled 1976-02-21 PNEUMOCOCCAL VACCINE 0-[address] [facility] 00:00:00 (1 - PCV) [code = PNEUMOCOCCAL Medical VACCINE 0-64 YRS (1 - PCV)] Center Future Scheduled 1976-02-21 PNEUMOCOCCAL VACCINE 0-[address] [facility] 00:00:00 (1 - PCV) [code = PNEUMOCOCCAL Medical VACCINE 0-64 YRS (1 - PCV)] Center Future Scheduled 1976-02-21 PNEUMOCOCCAL VACCINE 0-[address] [facility] 00:00:00 (1 - PCV) [code = PNEUMOCOCCAL Medical VACCINE 0-64 YRS (1 - PCV)] Center Future Scheduled 1976-02-21 PNEUMOCOCCAL VACCINE 0-[address] [facility] 00:00:00 (1 - PCV) [code = PNEUMOCOCCAL Medical VACCINE 0-64 YRS (1 - PCV)] Center Future Scheduled 1976-02-21 PNEUMOCOCCAL VACCINE 0-[address] [facility] 00:00:00 (1 - PCV) [code = PNEUMOCOCCAL Medical VACCINE 0-64 YRS (1 - PCV)] Center Future Scheduled 1976-02-21 PNEUMOCOCCAL VACCINE 0-[address] [facility] 00:00:00 (1 - PCV) [code = PNEUMOCOCCAL Medical VACCINE 0-64 YRS (1 - PCV)] Center Future Scheduled 1976-02-21 PNEUMOCOCCAL VACCINE 0-[address] [facility] 00:00:00 (1 - PCV) [code = PNEUMOCOCCAL Medical VACCINE 0-64 YRS (1 - PCV)] Center Future Scheduled 1976-02-21 PNEUMOCOCCAL VACCINE 0-[address] [facility] 00:00:00 (1 - PCV) [code = PNEUMOCOCCAL Medical VACCINE 0-64 YRS (1 - PCV)] Center Future Scheduled 1976-02-21 PNEUMOCOCCAL VACCINE 0-[address] [facility] 00:00:00 (1 - PCV) [code = PNEUMOCOCCAL Medical VACCINE 0-64 YRS (1 - PCV)] Center Future Scheduled 1976-02-21 PNEUMOCOCCAL VACCINE 0-[address] [facility] 00:00:00 (1 - PCV) [code = PNEUMOCOCCAL Medical VACCINE 0-64 YRS (1 - PCV)] Center Future Scheduled 1976-02-21 PNEUMOCOCCAL VACCINE 0-[address] [facility] 00:00:00 (1 - PCV) [code = PNEUMOCOCCAL Medical VACCINE 0-64 YRS (1 - PCV)] Center Future Scheduled 1976-02-21 PNEUMOCOCCAL VACCINE 0-[address] [facility] 00:00:00 (1 - PCV) [code = PNEUMOCOCCAL Medical VACCINE 0-64 YRS (1 - PCV)] Center Future Scheduled 1976-02-21 PNEUMOCOCCAL VACCINE 0-[address] [facility] 00:00:00 (1 - PCV) [code = PNEUMOCOCCAL Medical VACCINE 0-64 YRS (1 - PCV)] Center Future Scheduled 1976-02-21 PNEUMOCOCCAL VACCINE 0-[address] [facility] 00:00:00 (1 - PCV) [code = PNEUMOCOCCAL Medical VACCINE 0-64 YRS (1 - PCV)] Center Future Scheduled 1976-02-21 PNEUMOCOCCAL VACCINE 0-[address] [facility] 00:00:00 (1 - PCV) [code = PNEUMOCOCCAL Medical VACCINE 0-64 YRS (1 - PCV)] Center Future Scheduled 1976-02-21 PNEUMOCOCCAL VACCINE 0-[address] [facility] 00:00:00 (1 - PCV) [code = PNEUMOCOCCAL Medical VACCINE 0-64 YRS (1 - PCV)] Center Future Scheduled 1976-02-21 PNEUMOCOCCAL VACCINE 0-[address] [facility] 00:00:00 (1 - PCV) [code = PNEUMOCOCCAL Medical VACCINE 0-64 YRS (1 - PCV)] Center Future Scheduled 1976-02-21 PNEUMOCOCCAL VACCINE 0-[address] [facility] 00:00:00 (1 - PCV) [code = PNEUMOCOCCAL Medical VACCINE 0-64 YRS (1 - PCV)] Center Future Scheduled 1976-02-21 PNEUMOCOCCAL VACCINE 0-[address] [facility] 00:00:00 (1 - PCV) [code = PNEUMOCOCCAL Medical VACCINE 0-64 YRS (1 - PCV)] Center Future Scheduled 1976-02-21 PNEUMOCOCCAL VACCINE 0-[address] [facility] 00:00:00 (1 - PCV) [code = PNEUMOCOCCAL Medical VACCINE 0-64 YRS (1 - PCV)] Center Future Scheduled 1976-02-21 PNEUMOCOCCAL VACCINE 0-[address] [facility] 00:00:00 (1 - PCV) [code = PNEUMOCOCCAL Medical VACCINE 0-64 YRS (1 - PCV)] Center Future Scheduled 1976-02-21 PNEUMOCOCCAL VACCINE 0-[address] [facility] 00:00:00 (1 - PCV) [code = PNEUMOCOCCAL Medical VACCINE 0-64 YRS (1 - PCV)] Center Future Scheduled 1976-02-21 PNEUMOCOCCAL VACCINE 0-[address] [facility] 00:00:00 (1 - PCV) [code = PNEUMOCOCCAL Medical VACCINE 0-64 YRS (1 - PCV)] Center Future Scheduled 1976-02-21 PNEUMOCOCCAL VACCINE 0-[address] [facility] 00:00:00 (1 - PCV) [code = PNEUMOCOCCAL Medical VACCINE 0-64 YRS (1 - PCV)] Center Future Scheduled 1976-02-21 PNEUMOCOCCAL VACCINE 0-[address] [facility] 00:00:00 (1 - PCV) [code = PNEUMOCOCCAL Medical VACCINE 0-64 YRS (1 - PCV)] Center Future Scheduled 1976-02-21 PNEUMOCOCCAL VACCINE 0-[address] [facility] 00:00:00 (1 - PCV) [code = PNEUMOCOCCAL Medical VACCINE 0-64 YRS (1 - PCV)] Center Future Scheduled 1976-02-21 PNEUMOCOCCAL VACCINE 0-[address] [facility] 00:00:00 (1 - PCV) [code = PNEUMOCOCCAL Medical VACCINE 0-64 YRS (1 - PCV)] Center Future Scheduled 1976-02-21 PNEUMOCOCCAL VACCINE 0-[address] [facility] 00:00:00 (1 - PCV) [code = PNEUMOCOCCAL Medical VACCINE 0-64 YRS (1 - PCV)] Center Future Scheduled 1976-02-21 PNEUMOCOCCAL VACCINE 0-[address] [facility] 00:00:00 (1 - PCV) [code = PNEUMOCOCCAL Medical VACCINE 0-64 YRS (1 - PCV)] Center Future Scheduled 1976-02-21 PNEUMOCOCCAL VACCINE 0-[address] [facility] 00:00:00 (1 - PCV) [code = PNEUMOCOCCAL Medical VACCINE 0-64 YRS (1 - PCV)] Center Future Scheduled 1976-02-21 PNEUMOCOCCAL VACCINE 0-[address] [facility] 00:00:00 (1 - PCV) [code = PNEUMOCOCCAL Medical VACCINE 0-64 YRS (1 - PCV)] Center Future Scheduled 1976-02-21 PNEUMOCOCCAL VACCINE 0-[address] [facility] 00:00:00 (1 - PCV) [code = PNEUMOCOCCAL Medical VACCINE 0-64 YRS (1 - PCV)] Center Future Scheduled 1976-02-21 PNEUMOCOCCAL VACCINE 0-[address] [facility] 00:00:00 (1 - PCV) [code = PNEUMOCOCCAL Medical VACCINE 0-64 YRS (1 - PCV)] Center Future Scheduled 1976-02-21 PNEUMOCOCCAL VACCINE 0-[address] [facility] 00:00:00 (1 - PCV) [code = PNEUMOCOCCAL Medical VACCINE 0-64 YRS (1 - PCV)] Center Future Scheduled 1976-02-21 PNEUMOCOCCAL VACCINE 0-[address] [facility] 00:00:00 (1 - PCV) [code = PNEUMOCOCCAL Medical VACCINE 0-64 YRS (1 - PCV)] Center Future Scheduled 1976-02-21 Pneumococcal Vaccine: 0-[address] [facility] 00:00:00 Years (1 - PCV) [code = Medi farrukh Pneumococcal Vaccine: 0-64 C enter Years (1 - PCV)] Future Scheduled 1976-02-21 Pneumococcal Vaccine: 0-[address] [facility] 00:00:00 Years (1 - PCV) [code = Medi farrukh Pneumococcal Vaccine: 0-64 C enter Years (1 - PCV)] Future Scheduled 1976-02-21 PNEUMOCOCCAL VACCINE 0-[address] [facility] 00:00:00 (1 of 2 - PPSV23) [code = Me dical PNEUMOCOCCAL VACCINE 0-64 YRS Center (1 of 2 - PPSV23)] Future Scheduled 1976-02-21 PNEUMOCOCCAL VACCINE 0-[address] [facility] 00:00:00 (1 of 2 - PPSV23) [code = Me dical PNEUMOCOCCAL VACCINE 0-64 YRS Center (1 of 2 - PPSV23)] Future Scheduled 1976-02-21 PNEUMOCOCCAL VACCINE 0-[address] [facility] 00:00:00 (1 - PCV) [code = PNEUMOCOCCAL Medical VACCINE 0-64 YRS (1 - PCV)] Center Future Scheduled 1970 COVID-19 VACCINE (#1) [code = [facility] 00:00:00 COVID-19 VACCINE (#1)] [facility] Future Scheduled 1970 COVID-19 VACCINE (#1) [code = [facility] 00:00:00 COVID-19 VACCINE (#1)] [facility] Future Scheduled 1970 COVID-19 VACCINE (#1) [code = [facility] 00:00:00 COVID-19 VACCINE (#1)] [facility] Future Scheduled 1970 COVID-19 VACCINE (#1) [code = [facility] 00:00:00 COVID-19 VACCINE (#1)] [facility] Future Scheduled 1970 COVID-19 VACCINE (#1) [code = [facility] 00:00:00 COVID-19 VACCINE (#1)] [facility] Future Scheduled 1970 COVID-19 VACCINE (#1) [code = [facility] 00:00:00 COVID-19 VACCINE (#1)] [facility] Future Scheduled 1970 COVID-19 VACCINE (#1) [code = [facility] 00:00:00 COVID-19 VACCINE (#1)] [facility] Future Scheduled 1970 COVID-19 VACCINE (#1) [code = [facility] 00:00:00 COVID-19 VACCINE (#1)] [facility] Future Scheduled 1970 COVID-19 VACCINE (#1) [code = [facility] 00:00:00 COVID-19 VACCINE (#1)] [facility] Future Scheduled 1970 COVID-19 VACCINE (#1) [code = [facility] 00:00:00 COVID-19 VACCINE (#1)] [facility] Future Scheduled 1970 COVID-19 VACCINE (#1) [code = [facility] 00:00:00 COVID-19 VACCINE (#1)] [facility] Future Scheduled 1970 COVID-19 VACCINE (#1) [code = [facility] 00:00:00 COVID-19 VACCINE (#1)] [facility] Future Scheduled 1970 COVID-19 VACCINE (#1) [code = [facility] 00:00:00 COVID-19 VACCINE (#1)] [facility] Future Scheduled 1970 COVID-19 VACCINE (#1) [code = [facility] 00:00:00 COVID-19 VACCINE (#1)] [facility] Future Scheduled 1970 COVID-19 VACCINE (#1) [code = [facility] 00:00:00 COVID-19 VACCINE (#1)] [facility] Future Scheduled 1970 COVID-19 VACCINE (#1) [code = [facility] 00:00:00 COVID-19 VACCINE (#1)] [facility] Future Scheduled 1970 COVID-19 VACCINE (#1) [code = [facility] 00:00:00 COVID-19 VACCINE (#1)] [facility] Future Scheduled 1970 COVID-19 VACCINE (#1) [code = [facility] 00:00:00 COVID-19 VACCINE (#1)] [facility] Future Scheduled 1970 COVID-19 VACCINE (#1) [code = [facility] 00:00:00 COVID-19 VACCINE (#1)] [facility] Future Scheduled 1970 COVID-19 VACCINE (#1) [code = [facility] 00:00:00 COVID-19 VACCINE (#1)] [facility] Future Scheduled 1970 COVID-19 VACCINE (#1) [code = [facility] 00:00:00 COVID-19 VACCINE (#1)] [facility] Future Scheduled 1970 COVID-19 VACCINE (#1) [code = [facility] 00:00:00 COVID-19 VACCINE (#1)] [facility] Future Scheduled 1970 COVID-19 VACCINE (#1) [code = [facility] 00:00:00 COVID-19 VACCINE (#1)] [facility] Future Scheduled 1970 COVID-19 VACCINE (#1) [code = [facility] 00:00:00 COVID-19 VACCINE (#1)] [facility] Future Scheduled 1970 COVID-19 VACCINE (#1) [code = [facility] 00:00:00 COVID-19 VACCINE (#1)] [facility] Future Scheduled 1970 COVID-19 VACCINE (#1) [code = [facility] 00:00:00 COVID-19 VACCINE (#1)] [facility] Future Scheduled 1970 COVID-19 VACCINE (#1) [code = [facility] 00:00:00 COVID-19 VACCINE (#1)] [facility] Future Scheduled 1970 COVID-19 VACCINE (#1) [code = [facility] 00:00:00 COVID-19 VACCINE (#1)] [facility] Future Scheduled 1970 COVID-19 VACCINE (#1) [code = [facility] 00:00:00 COVID-19 VACCINE (#1)] [facility] Future Scheduled 1970 COVID-19 VACCINE (#1) [code = [facility] 00:00:00 COVID-19 VACCINE (#1)] [facility] Future Scheduled 1970 COVID-19 VACCINE (#1) [code = [facility] 00:00:00 COVID-19 VACCINE (#1)] [facility] Future Scheduled 1970 COVID-19 VACCINE (#1) [code = [facility] 00:00:00 COVID-19 VACCINE (#1)] [facility] Future Scheduled 1970 COVID-19 VACCINE (#1) [code = [facility] 00:00:00 COVID-19 VACCINE (#1)] [facility] Future Scheduled 1970 COVID-19 VACCINE (#1) [code = [facility] 00:00:00 COVID-19 VACCINE (#1)] [facility] Future Scheduled 1970 COVID-19 VACCINE (#1) [code = [facility] 00:00:00 COVID-19 VACCINE (#1)] [facility] Future Scheduled 1970 COVID-19 VACCINE (#1) [code = [facility] 00:00:00 COVID-19 VACCINE (#1)] [facility] 1970 COVID-19 VACCINE (#1) [code = [facility] 00:00:00 COVID-19 VACCINE (#1)] [facility] Future Scheduled 1970 COVID-19 VACCINE (#1) [code = [facility] 00:00:00 COVID-19 VACCINE (#1)] [facility] Future Scheduled 1970 COVID-19 VACCINE (#1) [code = [facility] 00:00:00 COVID-19 VACCINE (#1)] [facility] Future Scheduled 1970 COVID-19 VACCINE (#1) [code = [facility] 00:00:00 COVID-19 VACCINE (#1)] [facility] Future Scheduled 1970 Screening for malignant [facility] 00:00:00 neoplasm of breast (procedure) Medical [code = [id number]] [facility] Future Scheduled 1970 CT Colonography (combo) [code = [facility] 00:00:00 CT Colonography (combo)] [facility] Future Scheduled 1970 Screening for malignant [facility] 00:00:00 neoplasm of colon (procedure) Medical [code = [id number]] [facility] Future Scheduled 1970 Screening for malignant [facility] 00:00:00 neoplasm of colon (procedure) Medical [code = [id number]] [facility] Future Scheduled 1970 Screening for malignant [facility] 00:00:00 neoplasm of colon (procedure) Medical [code = [id number]] Center Future Scheduled 1970 Screening for malignant [facility] 00:00:00 neoplasm of colon (procedure) Medical [code = 996550443] [facility] Future Scheduled 1970 Sigmoidoscopy [code [facility]] [facility] Future Scheduled 1970 Screening for malignant [facility] 00:00:00 neoplasm of breast (procedure) Medical [code = [id number]] [facility] Future Scheduled 1970 CT Colonography (combo) [code = [facility] 00:00:00 CT Colonography (combo)] [facility] Future Scheduled 1970 Screening for malignant [facility] 00:00:00 neoplasm of colon (procedure) Medical [code = [id number]] Center Future Scheduled 1970 Screening for malignant [facility] 00:00:00 neoplasm of colon (procedure) Medical [code = 876426532] Center Future Scheduled 1970 Screening for malignant [facility] 00:00:00 neoplasm of colon (procedure) Medical [code = 000383379] Center Future Scheduled 1970 Screening for malignant [facility] 00:00:00 neoplasm of colon (procedure) Medical [code = 170991309] [facility] Future Scheduled 1970 Sigmoidoscopy [facility]code [facility]] [facility] Future Scheduled 1970 Screening for malignant [facility] 00:00:00 neoplasm of breast (procedure) [facility] [code = [id number]] [facility] Future Scheduled 1970 CT Colonography (combo) [code = [facility] 00:00:00 CT Colonography (combo)] [facility] Future Scheduled 1970 Screening for malignant [facility] 00:00:00 neoplasm of colon (procedure) Medical [code = 969708575] [facility] Future Scheduled 1970 Screening for malignant [facility] 00:00:00 neoplasm of colon (procedure) [facility] [code = [id number]] Center Future Scheduled 1970 Screening for malignant [facility] 00:00:00 neoplasm of colon (procedure) Medical [code = 080012865] Center Future Scheduled 1970 Screening for malignant [facility] 00:00:00 neoplasm of colon (procedure) Medical [code = 794496495] [facility] Future Scheduled 1970 Sigmoidoscopy [code [facility] S[facility]oid[facility]] [facility] Future Scheduled 1970 Screening for malignant [facility] 00:00:00 neoplasm of breast (procedure) [facility] [code = [id number]] [facility] Future Scheduled 1970 CT Colonography (combo) [code = [facility] 00:00:00 CT Colonography (combo)] [facility] Future Scheduled 1970 Screening for malignant [facility] 00:00:00 neoplasm of colon (procedure) Medical [code = [id number]] Center Future Scheduled 1970 Screening for malignant [facility] 00:00:00 neoplasm of colon (procedure) Medical [code = [id number]] Center Future Scheduled 1970 Screening for malignant [facility] 00:00:00 neoplasm of colon (procedure) Medical [code = 037484913] Center Future Scheduled 1970 Screening for malignant [facility] 00:00:00 neoplasm of colon (procedure) Medical [code = 252989630] [facility] Future Scheduled 1970 Sigmoidoscopy [code [facility] Sigmoidoscopy] [facility] Future Scheduled 1970 Screening for malignant [facility] 00:00:00 neoplasm of breast (procedure) [facility] [code = [id number]] [facility] Future Scheduled 1970 CT Colonography (combo) [code = [facility] 00:00:00 CT Colonography (combo)] [facility] Future Scheduled 1970 Screening for malignant [facility] 00:00:00 neoplasm of colon (procedure) Medical [code = 836661030] Center Future Scheduled 1970 Screening for malignant [facility] 00:00:00 neoplasm of colon (procedure) Medical [code = 460047126] Center Future Scheduled 1970 Screening for malignant [facility] 00:00:00 neoplasm of colon (procedure) Medical [code = 432568495] [facility] Future Scheduled 1970 Screening for malignant [facility] 00:00:00 neoplasm of colon (procedure) Medical [code = 066521377] Center Future Scheduled 1970 Sigmoidoscopy [code [facility] Sigmoidoscopy] [facility] Future Scheduled 1970 Screening for malignant [facility] 00:00:00 neoplasm of breast (procedure) Medical [code = [id number]] Center Future Scheduled 1970 CT Colonography (combo) [code = [facility] 00:00:00 CT Colonography (combo)] [facility] Future Scheduled 1970 Screening for malignant [facility] 00:00:00 neoplasm of colon (procedure) Medical [code = [id number]] Center Future Scheduled 1970 Screening for malignant [facility] 00:00:00 neoplasm of colon (procedure) Medical [code = 911637173] Center Future Scheduled 1970 Screening for malignant [facility] 00:00:00 neoplasm of colon (procedure) Medical [code = [id number]] Center Future Scheduled 1970 Screening for malignant [facility] 00:00:00 neoplasm of colon (procedure) Medical [code = [id number]] Center Future Scheduled 1970 Sigmoidoscopy [code [facility]] [facility] Future Scheduled 1970 Screening for malignant [facility] 00:00:00 neoplasm of breast (procedure) Medical [code = [id number]] Council Future Scheduled 1970 CT Colonography (combo) [code = [facility] 00:00:00 CT Colonography (combo)] [facility] Future Scheduled 1970 Screening for malignant [facility] 00:00:00 neoplasm of colon (procedure) Medical [code = [id number]] Council Future Scheduled 1970 Screening for malignant [facility] 00:00:00 neoplasm of colon (procedure) Medical [code = [id number]] Center Future Scheduled 1970 Screening for malignant [facility] 00:00:00 neoplasm of colon (procedure) Medical [code = [id number]] Council Future Scheduled 1970 Screening for malignant [facility] 00:00:00 neoplasm of colon (procedure) Medical [code = [id number]] Center Future Scheduled 1970 Sigmoidoscopy [code [facility]] [facility] Future Scheduled 1970 Screening for malignant [facility] 00:00:00 neoplasm of breast (procedure) Medical [code = [id number]] Council Future Scheduled 1970 CT Colonography (combo) [code = [facility] 00:00:00 CT Colonography (combo)] [facility] Future Scheduled 1970 Screening for malignant [facility] 00:00:00 neoplasm of colon (procedure) Medical [code = [id number]] Center Future Scheduled 1970 Screening for malignant [facility] 00:00:00 neoplasm of colon (procedure) Medical [code = [id number]] Center Future Scheduled 1970 Screening for malignant [facility] 00:00:00 neoplasm of colon (procedure) Medical [code = [id number]] Center Future Scheduled 1970 Screening for malignant [facility] 00:00:00 neoplasm of colon (procedure) Medical [code = [id number]] Center Future Scheduled 1970 Sigmoidoscopy [code [facility]oidoscopy] [facility] Future Scheduled 1970 Screening for malignant [facility] 00:00:00 neoplasm of breast (procedure) Medical [code = [id number]] Council Future Scheduled 1970 CT Colonography (combo) [code = [facility] 00:00:00 CT Colonography (combo)] [facility] Future Scheduled 1970 Screening for malignant [facility] 00:00:00 neoplasm of colon (procedure) Medical [code = [id number]] Council Future Scheduled 1970 Screening for malignant [facility] 00:00:00 neoplasm of colon (procedure) Medical [code = [id number]] Center Future Scheduled 1970 Screening for malignant [facility] 00:00:00 neoplasm of colon (procedure) Medical [code = [id number]] Council Future Scheduled 1970 Screening for malignant [facility] 00:00:00 neoplasm of colon (procedure) Medical [code = [id number]] Council Future Scheduled 1970 Sigmoidoscopy [code [facility] 00:[facility]oidoscopy] [facility] Future Scheduled 1970 Screening for malignant [facility] 00:00:00 neoplasm of breast (procedure) Medical [code = [id number]] Council Future Scheduled 1970 CT Colonography (combo) [code = [facility] 00:00:00 CT Colonography (combo)] [facility] Future Scheduled 1970 Screening for malignant [facility] 00:00:00 neoplasm of colon (procedure) Medical [code = [id number]] Center Future Scheduled 1970 Screening for malignant [facility] 00:00:00 neoplasm of colon (procedure) Medical [code = [id number]] Center Future Scheduled 1970 Screening for malignant [facility] 00:00:00 neoplasm of colon (procedure) Medical [code = [id number]] Center Future Scheduled 1970 Screening for malignant [facility] 00:00:00 neoplasm of colon (procedure) Medical [code = [id number]] Center Future Scheduled 1970 Sigmoidoscopy [code [facility] 00:[facility] S[facility]oidoscopy] [facility] Future Scheduled 1970 Screening for malignant [facility] 00:00:00 neoplasm of breast (procedure) Medical [code = [id number]] Council Future Scheduled 1970 CT Colonography (combo) [code = [facility] 00:00:00 CT Colonography (combo)] [facility] Future Scheduled 1970 Screening for malignant [facility] 00:00:00 neoplasm of colon (procedure) Medical [code = [id number]] Center Future Scheduled 1970 Screening for malignant [facility] 00:00:00 neoplasm of colon (procedure) Medical [code = [id number]] Center Future Scheduled 1970 Screening for malignant [facility] 00:00:00 neoplasm of colon (procedure) Medical [code = 737812974] Council Future Scheduled 1970 Screening for malignant [facility] 00:00:00 neoplasm of colon (procedure) Medical [code = [id number]] Center Future Scheduled 1970 Sigmoidoscopy [code = [facility] 00:[facility] S[facility]oidoscopy] [facility] Future Scheduled 1970 Screening for malignant [facility] 00:00:00 neoplasm of breast (procedure) Medical [code = [id number]] Center Future Scheduled 1970 CT Colonography (combo) [code = [facility] 00:00:00 CT Colonography (combo)] [facility] Future Scheduled 1970 Screening for malignant [facility] 00:00:00 neoplasm of colon (procedure) Medical [code = [id number]] Center Future Scheduled 1970 Screening for malignant [facility] 00:00:00 neoplasm of colon (procedure) Medical [code = [id number]] Center Future Scheduled 1970 Screening for malignant [facility] 00:00:00 neoplasm of colon (procedure) Medical [code = 579149060] Center Future Scheduled 1970 Screening for malignant [facility] 00:00:00 neoplasm of colon (procedure) Medical [code = 552767565] Center Future Scheduled 1970 Sigmoidoscopy [code = [facility] 00:[facility] S[facility]oidoscopy] [facility] Future Scheduled 1970 Screening for malignant [facility] 00:00:00 neoplasm of breast (procedure) Medical [code = [id number]] Council Future Scheduled 1970 CT Colonography (combo) [code = [facility] 00:00:00 CT Colonography (combo)] [facility] Future Scheduled 1970 Screening for malignant [facility] 00:00:00 neoplasm of colon (procedure) Medical [code = [id number]] Center Future Scheduled 1970 Screening for malignant [facility] 00:00:00 neoplasm of colon (procedure) Medical [code = [id number]] Council Future Scheduled 1970 Screening for malignant [facility] 00:00:00 neoplasm of colon (procedure) Medical [code = 824510475] Council Future Scheduled 1970 Screening for malignant [facility] 00:00:00 neoplasm of colon (procedure) Medical [code = [id number]] Center Future Scheduled 1970 Sigmoidoscopy [code = [facility] 00:[facility] S[facility]oidoscopy] [facility] Future Scheduled 1970 Screening for malignant [facility] 00:00:00 neoplasm of breast (procedure) Medical [code = 700812806] Center Future Scheduled 1970 CT Colonography (combo) [code = [facility] 00:00:00 CT Colonography (combo)] [facility] Future Scheduled 1970 Screening for malignant [facility] 00:00:00 neoplasm of colon (procedure) Medical [code = [id number]] Center Future Scheduled 1970 Screening for malignant [facility] 00:00:00 neoplasm of colon (procedure) Medical [code = 541304629] Center Future Scheduled 1970 Screening for malignant [facility] 00:00:00 neoplasm of colon (procedure) Medical [code = [id number]] Center Future Scheduled 1970 Screening for malignant [facility] 00:00:00 neoplasm of colon (procedure) Medical [code = 263753887] Center Future Scheduled 1970 Sigmoidoscopy [code = [facility] 00:[facility] S[facility]oidoscopy] [facility] Future Scheduled 1970 Screening for malignant [facility] 00:00:00 neoplasm of breast (procedure) [facility] [code = [id number]] Council Future Scheduled 1970 CT Colonography (combo) [code = [facility] 00:00:00 CT Colonography (combo)] [facility] Future Scheduled 1970 Screening for malignant [facility] 00:00:00 neoplasm of colon (procedure) Medical [code = 340467546] Center Future Scheduled 1970 Screening for malignant [facility] 00:00:00 neoplasm of colon (procedure) Medical [code = [id number]] Council Future Scheduled 1970 Screening for malignant [facility] 00:00:00 neoplasm of colon (procedure) [facility] [code = [id number]] Center Future Scheduled 1970 Screening for malignant [facility] 00:00:00 neoplasm of colon (procedure) Medical [code = 485387640] Center Future Scheduled 1970 Sigmoidoscopy [code = [facility] 00:[facility] S[facility]oidoscopy] [facility] Future Scheduled 1970 Screening for malignant [facility] 00:00:00 neoplasm of breast (procedure) Medical [code = 679532475] Council Future Scheduled 1970 CT Colonography (combo) [code = [facility] 00:00:00 CT Colonography (combo)] [facility] Future Scheduled 1970 Screening for malignant [facility] 00:00:00 neoplasm of colon (procedure) [facility] [code = [id number]] Center Future Scheduled 1970 Screening for malignant [facility] 00:00:00 neoplasm of colon (procedure) Medical [code = 542436874] Center Future Scheduled 1970 Screening for malignant [facility] 00:00:00 neoplasm of colon (procedure) Medical [code = 497284133] Center Future Scheduled [address] Screening for malignant [facility] 00:00:00 neoplasm of colon (procedure) Medical [code = 445822898] Center Future Scheduled 1970 Sigmoidoscopy [code [facility] 00:[facility] S[facility]oidoscopy] [facility] Future Scheduled 1970 Screening for malignant [facility] 00:00:00 neoplasm of breast (procedure) Medical [code = [id number]] Council Future Scheduled 1970 CT Colonography (combo) [code = [facility] 00:00:00 CT Colonography (combo)] [facility] Future Scheduled 1970 Screening for malignant [facility] 00:00:00 neoplasm of colon (procedure) Medical [code = 071581010] Center Future Scheduled [address] Screening for malignant [facility] 00:00:00 neoplasm of colon (procedure) Medical [code = 801790409] Center Future Scheduled [address] Screening for malignant [facility] 00:00:00 neoplasm of colon (procedure) Medical [code = [id number]] Center Future Scheduled [address] Screening for malignant [facility] 00:00:00 neoplasm of colon (procedure) Medical [code = 876861341] Council Future Scheduled 1970 Sigmoidoscopy [code [facility]oidoscopy] [facility] Future Scheduled 1970 Screening for malignant [facility] 00:00:00 neoplasm of breast (procedure) Medical [code = [id number]] Council Future Scheduled 1970 CT Colonography (combo) [code = [facility] 00:00:00 CT Colonography (combo)] [facility] Future Scheduled 1970 Screening for malignant [facility] 00:00:00 neoplasm of colon (procedure) Medical [code = [id number]] Council Future Scheduled [address] Screening for malignant [facility] 00:00:00 neoplasm of colon (procedure) Medical [code = 675376110] Center Future Scheduled [address] Screening for malignant [facility] 00:00:00 neoplasm of colon (procedure) Medical [code = 678202555] Center Future Scheduled [address] Screening for malignant [facility] 00:00:00 neoplasm of colon (procedure) Medical [code = 692675852] Council Future Scheduled 1970 Sigmoidoscopy [code [facility] 00:[facility]oidoscopy] [facility] Future Scheduled 1970 Screening for malignant [facility] 00:00:00 neoplasm of breast (procedure) Medical [code = [id number]] Council Future Scheduled 1970 CT Colonography (combo) [code = [facility] 00:00:00 CT Colonography (combo)] [facility] Future Scheduled 1970 Screening for malignant [facility] 00:00:00 neoplasm of colon (procedure) Medical [code = 796894976] Council Future Scheduled [address] Screening for malignant [facility] 00:00:00 neoplasm of colon (procedure) Medical [code = 514873285] Council Future Scheduled [address] Screening for malignant [facility] 00:00:00 neoplasm of colon (procedure) Medical [code = [id number]] Council Future Scheduled [address] Screening for malignant [facility] 00:00:00 neoplasm of colon (procedure) Medical [code = [id number]] Council Future Scheduled 1970 Sigmoidoscopy [code [facility]] [facility] Future Scheduled 1970 Screening for malignant [facility] 00:00:00 neoplasm of breast (procedure) Medical [code = [id number]] Council Future Scheduled 1970 CT Colonography (combo) [code = [facility] 00:00:00 CT Colonography (combo)] [facility] Future Scheduled 1970 Screening for malignant [facility] 00:00:00 neoplasm of colon (procedure) Medical [code = 538475004] Council Future Scheduled [address] Screening for malignant [facility] 00:00:00 neoplasm of colon (procedure) Medical [code = 687470688] Center Future Scheduled [address] Screening for malignant [facility] 00:00:00 neoplasm of colon (procedure) Medical [code = 876131529] Center Future Scheduled [address] Screening for malignant [facility] 00:00:00 neoplasm of colon (procedure) Medical [code = [id number]] Council Future Scheduled 1970 Sigmoidoscopy [code [facility]] [facility] Future Scheduled 1970 Screening for malignant [facility] 00:00:00 neoplasm of breast (procedure) Medical [code = [id number]] Council Future Scheduled 1970 CT Colonography (combo) [code = [facility] 00:00:00 CT Colonography (combo)] [facility] Future Scheduled 1970 Screening for malignant [facility] 00:00:00 neoplasm of colon (procedure) Medical [code = 978858896] Council Future Scheduled [address] Screening for malignant [facility] 00:00:00 neoplasm of colon (procedure) Medical [code = 403438899] Council Future Scheduled [address] Screening for malignant [facility] 00:00:00 neoplasm of colon (procedure) Medical [code = 232780072] Council Future Scheduled [address] Screening for malignant [facility] 00:00:00 neoplasm of colon (procedure) Medical [code = 237167779] Council Future Scheduled 1970 Sigmoidoscopy [code [facility]] [facility] Future Scheduled 1970 Screening for malignant [facility] 00:00:00 neoplasm of breast (procedure) Medical [code = 225579055] Council Future Scheduled 1970 CT Colonography (combo) [code = [facility] 00:00:00 CT Colonography (combo)] [facility] Future Scheduled 1970 Screening for malignant [facility] 00:00:00 neoplasm of colon (procedure) Medical [code = 553667098] Council Future Scheduled [address] Screening for malignant [facility] 00:00:00 neoplasm of colon (procedure) Medical [code = 543991228] Center Future Scheduled [address] Screening for malignant [facility] 00:00:00 neoplasm of colon (procedure) Medical [code = 563726282] Center Future Scheduled [address] Screening for malignant [facility] 00:00:00 neoplasm of colon (procedure) Medical [code = 011658634] Center Future Scheduled 1970 Sigmoidoscopy [code [facility] S[facility]oidoscopy] [facility] Center Future Scheduled 1970 Screening for malignant [facility] 00:00:00 neoplasm of breast (procedure) Medical [code = 599886991] Council Future Scheduled 1970 CT Colonography (combo) [code = [facility] 00:00:00 CT Colonography (combo)] [facility] Future Scheduled [address] Screening for malignant [facility] 00:00:00 neoplasm of colon (procedure) Medical [code = 905957809] Council Future Scheduled [address] Screening for malignant [facility] 00:00:00 neoplasm of colon (procedure) Medical [code = 421922156] Center Future Scheduled [address] Screening for malignant [facility] 00:00:00 neoplasm of colon (procedure) Medical [code = 010671236] Center Future Scheduled [address] Screening for malignant [facility] 00:00:00 neoplasm of colon (procedure) Medical [code = 441770611] Center Future Scheduled 1970 Sigmoidoscopy [code [facility] 00:[facility] S[facility]oidoscopy] [facility] Center Future Scheduled 1970 Screening for malignant [facility] 00:00:00 neoplasm of breast (procedure) Medical [code = 163375402] Council Future Scheduled 1970 CT Colonography (combo) [code = [facility] 00:00:00 CT Colonography (combo)] [facility] Future Scheduled [address] Screening for malignant [facility] 00:00:00 neoplasm of colon (procedure) Medical [code = 648344823] Center Future Scheduled [address] for malignant [facility] 00:00:00 neoplasm of colon (procedure) Medical [code = 847631450] Center Future Scheduled [address] for malignant [facility] 00:00:00 neoplasm of colon (procedure) Medical [code = 937757842] Center Future Scheduled [address]ening for malignant [facility] 00:00:00 neoplasm of colon (procedure) Medical [code = 268634403] Center Future Scheduled 1970 Sigmoidoscopy [code [facility] 00:[facility] S[facility]oidoscopy] [facility] Center Future Scheduled 1970 Screening for malignant [facility] 00:00:00 neoplasm of breast (procedure) Medical [code = 106343262] Council Future Scheduled 1970 CT Colonography (combo) [code = [facility] 00:00:00 CT Colonography (combo)] [facility] Future Scheduled 1970 Screening for malignant [facility] 00:00:00 neoplasm of colon (procedure) Medical [code = 178319420] Center Future Scheduled [address]ening for malignant [facility] 00:00:00 neoplasm of colon (procedure) Medical [code = 304436763] Center Future Scheduled [address]ening for malignant [facility] 00:00:00 neoplasm of colon (procedure) Medical [code = 492133559] Council Future Scheduled [address] Screening for malignant [facility] 00:00:00 neoplasm of colon (procedure) Medical [code = 365142258] Council Future Scheduled 1970 Sigmoidoscopy [code [facility] S[facility]oidoscopy] [facility] Center Future Scheduled [address] Screening for malignant [facility] 00:00:00 neoplasm of breast (procedure) Medical [code = 885866949] Council Future Scheduled 1970 CT Colonography (combo) [code = [facility] 00:00:00 CT Colonography (combo)] [facility] Future Scheduled [address] Screening for malignant [facility] 00:00:00 neoplasm of colon (procedure) Medical [code = 353874201] Center Future Scheduled [address]ening for malignant [facility] 00:00:00 neoplasm of colon (procedure) Medical [code = 668382808] Center Future Scheduled [address] for malignant [facility] 00:00:00 neoplasm of colon (procedure) Medical [code = 165854331] Center Future Scheduled [address]ening for malignant [facility] 00:00:00 neoplasm of colon (procedure) Medical [code = 826510775] Center Future Scheduled 1970 Sigmoidoscopy [code [facility] S[facility]oidoscopy] [facility] Center Future Scheduled [address] Screening for malignant [facility] 00:00:00 neoplasm of breast (procedure) Medical [code = 894764226] Center Future Scheduled 1970 CT Colonography (combo) [code = [facility] 00:00:00 CT Colonography (combo)] [facility] Future Scheduled [address] Screening for malignant [facility] 00:00:00 neoplasm of colon (procedure) Medical [code = 563674507] Center Future Scheduled [address] for malignant [facility] 00:00:00 neoplasm of colon (procedure) Medical [code = 598452495] Center Future Scheduled [address]ening for malignant [facility] 00:00:00 neoplasm of colon (procedure) Medical [code = 664464161] Center Future Scheduled [address] Screening for malignant [facility] 00:00:00 neoplasm of colon (procedure) [facility] [code = 103690450] Center Future Scheduled 1970 Sigmoidoscopy [code = [facility] 00:[facility]oid[facility]] [facility] Future Scheduled 1970 Screening for malignant [facility] 00:00:00 neoplasm of breast (procedure) Medical [code = 199451861] Center Future Scheduled 1970 CT Colonography (combo) [code = [facility] 00:00:00 CT Colonography (combo)] [facility] Future Scheduled 1970 Screening for malignant [facility] 00:00:00 neoplasm of colon (procedure) Medical [code = 285492249] Center Future Scheduled [address]ening for malignant [facility] 00:00:00 neoplasm of colon (procedure) Medical [code = 102217447] Center Future Scheduled [address]ening for malignant [facility] 00:00:00 neoplasm of colon (procedure) Medical [code = 807622817] Center Future Scheduled [address] Screening for malignant [facility] 00:00:00 neoplasm of colon (procedure) Medical [code = 388928634] Center Future Scheduled 1970 Sigmoidoscopy [code [facility] S[facility]oidoscopy] [facility] Center Future Scheduled 1970 Screening for malignant [facility] 00:00:00 neoplasm of breast (procedure) Medical [code = 056992309] Center Future Scheduled 1970 CT Colonography (combo) [code = [facility] 00:00:00 CT Colonography (combo)] [facility] Future Scheduled 1970 Screening for malignant [facility] 00:00:00 neoplasm of colon (procedure) Medical [code = 223595679] Council Future Scheduled [address] Screening for malignant [facility] 00:00:00 neoplasm of colon (procedure) Medical [code = 719004161] Center Future Scheduled [address]ening for malignant [facility] 00:00:00 neoplasm of colon (procedure) Medical [code = 936267765] Center Future Scheduled [address]ening for malignant [facility] 00:00:00 neoplasm of colon (procedure) Medical [code = 871622203] Center Future Scheduled 1970 Sigmoidoscopy [code = [facility] 00:[facility]] [facility] Future Scheduled 1970 Screening for malignant [facility] 00:00:00 neoplasm of breast (procedure) Medical [code = 164428863] Center Future Scheduled 1970 CT Colonography (combo) [code = [facility] 00:00:00 CT Colonography (combo)] [facility] Future Scheduled 1970 Screening for malignant [facility] 00:00:00 neoplasm of colon (procedure) Medical [code = 221632748] Center Future Scheduled [address]ening for malignant [facility] 00:00:00 neoplasm of colon (procedure) Medical [code = 719333637] Center Future Scheduled [address]ening for malignant [facility] 00:00:00 neoplasm of colon (procedure) Medical [code = 552978109] Center Future Scheduled [address]ening for malignant [facility] 00:00:00 neoplasm of colon (procedure) Medical [code = 007553742] Center Future Scheduled 1970 Sigmoidoscopy [code [facility] S[facility]oidoscopy] [facility] Center Future Scheduled 1970 Screening for malignant [facility] 00:00:00 neoplasm of breast (procedure) Medical [code = 449257613] Center Future Scheduled 1970 CT Colonography (combo) [code = [facility] 00:00:00 CT Colonography (combo)] [facility] Future Scheduled 1970 Screening for malignant [facility] 00:00:00 neoplasm of colon (procedure) Medical [code = 152169566] Council Future Scheduled [address] Screening for malignant [facility] 00:00:00 neoplasm of colon (procedure) Medical [code = 572344946] Center Future Scheduled [address]ening for malignant [facility] 00:00:00 neoplasm of colon (procedure) Medical [code = 647185274] Center Future Scheduled [address] Screening for malignant [facility] 00:00:00 neoplasm of colon (procedure) Medical [code = 047358712] Council Future Scheduled 1970 Sigmoidoscopy [code [facility] 00:[facility]oidoscopy] [facility] Future Scheduled [address] Screening for malignant [facility] 00:00:00 neoplasm of breast (procedure) Medical [code = 202407639] Center Future Scheduled 1970 CT Colonography (combo) [code = [facility] 00:00:00 CT Colonography (combo)] [facility] Future Scheduled 1970 Screening for malignant [facility] 00:00:00 neoplasm of colon (procedure) Medical [code = 434374781] Center Future Scheduled 1970 Screening for malignant [facility] 00:00:00 neoplasm of colon (procedure) Medical [code = 384452619] Center Future Scheduled 1970 Screening for malignant [facility] 00:00:00 neoplasm of colon (procedure) Medical [code = 754183916] Center Future Scheduled 1970 Screening for malignant [facility] 00:00:00 neoplasm of colon (procedure) Medical [code = 974230463] Center Future Scheduled 1970 Sigmoidoscopy [code = [facility]] [facility] Center Future Scheduled 1970 Screening for malignant [facility] 00:00:00 neoplasm of breast (procedure) Medical [code = 891503557] Center Future Scheduled 1970 CT Colonography (combo) [code = [facility] 00:00:00 CT Colonography (combo)] [facility] Future Scheduled 1970 Screening for malignant [facility] 00:00:00 neoplasm of colon (procedure) Medical [code = 476144784] Center Future Scheduled 1970 Screening for malignant [facility] 00:00:00 neoplasm of colon (procedure) Medical [code = 930045553] Center Future Scheduled 1970 Screening for malignant [facility] 00:00:00 neoplasm of colon (procedure) Medical [code = 719569147] Center Future Scheduled 1970 Screening for malignant [facility] 00:00:00 neoplasm of colon (procedure) Medical [code = 312273457] Council Future Scheduled 1970 Sigmoidoscopy [code = [facility]] [facility] Future Scheduled 1970 Screening for malignant [facility] 00:00:00 neoplasm of breast (procedure) Medical [code = 325029150] Center Future Scheduled 1970 CT Colonography (combo) [code = [facility] 00:00:00 CT Colonography (combo)] [facility] Future Scheduled 1970 Screening for malignant [facility] 00:00:00 neoplasm of colon (procedure) Medical [code = 489267374] Center Future Scheduled 1970 Screening for malignant [facility] 00:00:00 neoplasm of colon (procedure) Medical [code = 427175694] Center Future Scheduled 1970 Screening for malignant [facility] 00:00:00 neoplasm of colon (procedure) Medical [code = 125846188] Center Future Scheduled 1970 Screening for malignant [facility] 00:00:00 neoplasm of colon (procedure) Medical [code = 059259086] Center Future Scheduled 1970 Sigmoidoscopy [code = [facility]oscopy] [facility] Center Future Scheduled 1970 Screening for malignant [facility] 00:00:00 neoplasm of breast (procedure) Medical [code = 334217752] Center Future Scheduled 1970 CT Colonography (combo) [code = [facility] 00:00:00 CT Colonography (combo)] [facility] Future Scheduled 1970 Screening for malignant [facility] 00:00:00 neoplasm of colon (procedure) Medical [code = 412810025] Council Future Scheduled 1970 Screening for malignant [facility] 00:00:00 neoplasm of colon (procedure) Medical [code = 548090576] Center Future Scheduled 1970 Screening for malignant [facility] 00:00:00 neoplasm of colon (procedure) Medical [code = 521350341] Center Future Scheduled 1970 Screening for malignant [facility] 00:00:00 neoplasm of colon (procedure) Medical [code = 469373791] Center Future Scheduled 1970 Sigmoidoscopy [code = [facility]oscopy] [facility] Future Scheduled 1970 Screening for malignant [facility] 00:00:00 neoplasm of breast (procedure) Medical [code = 635276444] Center Future Scheduled 1970 CT Colonography (combo) [code = [facility] 00:00:00 CT Colonography (combo)] [facility] Future Scheduled 1970 Screening for malignant [facility] 00:00:00 neoplasm of colon (procedure) Medical [code = 732398175] Center Future Scheduled 1970 Screening for malignant [facility] 00:00:00 neoplasm of colon (procedure) Medical [code = 986967097] Center Future Scheduled 1970 Screening for malignant [facility] 00:00:00 neoplasm of colon (procedure) Medical [code = 485964572] Center Future Scheduled 1970 Screening for malignant [facility] 00:00:00 neoplasm of colon (procedure) Medical [code = 596821954] Council Future Scheduled 1970 Sigmoidoscopy [code = [facility] 00:[facility]oscopy] [facility] Future Scheduled 1970 Screening for malignant [facility] 00:00:00 neoplasm of breast (procedure) Medical [code = 966302864] Council Future Scheduled 1970 CT Colonography (combo) [code = [facility] 00:00:00 CT Colonography (combo)] [facility] Future Scheduled 1970 Screening for malignant [facility] 00:00:00 neoplasm of colon (procedure) Medical [code = 291120778] Council Future Scheduled 1970 Screening for malignant [facility] 00:00:00 neoplasm of colon (procedure) Medical [code = 417533885] Council Future Scheduled 1970 Screening for malignant [facility] 00:00:00 neoplasm of colon (procedure) Medical [code = 116227968] Council Future Scheduled 1970 Screening for malignant [facility] 00:00:00 neoplasm of colon (procedure) Medical [code = 422953311] Council Future Scheduled 1970 Sigmoidoscopy [code = [facility] 00:[facility]oscopy] [facility] Future Scheduled 1970 CT Colonography (combo) [code = [facility] 00:00:00 CT Colonography (combo)] [facility] Future Scheduled 1970 Screening for malignant [facility] 00:00:00 neoplasm of colon (procedure) Medical [code = 744302365] Center Future Scheduled 1970 Screening for malignant [facility] 00:00:00 neoplasm of colon (procedure) Medical [code = 254668779] Center Future Scheduled 1970 Screening for malignant [facility] 00:00:00 neoplasm of colon (procedure) Medical [code = 538317227] Council Future Scheduled 1970 Screening for malignant [facility] 00:00:00 neoplasm of colon (procedure) Medical [code = 338862137] Center Future Scheduled 1970 Sigmoidoscopy [code = [facility] 00:[facility] Sigmoidoscopy] [facility] Future Scheduled 1970 CT Colonography (combo) [code = [facility] 00:00:00 CT Colonography (combo)] [facility] Future Scheduled 1970 Screening for malignant [facility] 00:00:00 neoplasm of colon (procedure) Medical [code = 578194115] Center Future Scheduled 1970 Screening for malignant [facility] 00:00:00 neoplasm of colon (procedure) Medical [code = 735396318] Center Future Scheduled 1970 Screening for malignant [facility] 00:00:00 neoplasm of colon (procedure) Medical [code = 005406083] Center Future Scheduled 1970 Screening for malignant [facility] 00:00:00 neoplasm of colon (procedure) Medical [code = 823920024] Center Future Scheduled 1970 Sigmoidoscopy [code = [facility] 00:[facility] Sigmoidoscopy] [facility] Future Scheduled 1970 Screening for malignant [facility] 00:00:00 neoplasm of breast (procedure) Medical [code = 610297916] Center Future Scheduled 1970 Screening for malignant [facility] 00:00:00 neoplasm of colon (procedure) Medical [code = 081152708] Center Future Scheduled 1970 Screening for malignant [facility] 00:00:00 neoplasm of breast (procedure) Medical [code = 167196085] Center Future Scheduled 1970 Screening for malignant [facility] 00:00:00 neoplasm of colon (procedure) Medical [code = 329497959] Center Future Scheduled 1970 Screening for malignant [facility] 00:00:00 neoplasm of breast (procedure) Medical [code = 792965105] Council Future Scheduled 1970 CT Colonography (combo) [code = [facility] 00:00:00 CT Colonography (combo)] [facility] Future Scheduled 1970 Screening for malignant [facility] 00:00:00 neoplasm of colon (procedure) Medical [code = 489342600] Center Future Scheduled 1970 Screening for malignant [facility] 00:00:00 neoplasm of colon (procedure) Medical [code = 834688505] Center Future Scheduled 1970 Screening for malignant [facility] 00:00:00 neoplasm of colon (procedure) Medical [code = 739715854] Center Future Scheduled 1970 Screening for malignant [facility] 00:00:00 neoplasm of colon (procedure) Medical [code = 616053653] Center Future Scheduled 1970 Sigmoidoscopy [code = [facility] 00:[facility]oscopy] [facility] Future Appointment 2023-05-24 Cassandra Hughes, [address]; [facility] 11:00:00 [place] [id number] [facility] Future Appointment 2023-05-24 Cassandra Hughes [address]; [facility] 11:00:00 [place] [address] [facility] Future Appointment 2023-05-24 Cassandra Hughes [address]; [facility] 11:00:00 [place] [address] [facility] Future Appointment 2023-05-24 Cassandra Hughes [address]; [facility] 11:00:00 Ishmael 8B, [place] [address] [facility] Medication 2023-05-13 DAPTOmycin (CUBICIN) in sodium [facility] 00:00:00 chloride (NS) NON-DEHP 50 ML Medical IVPB [code = 729251546] Cent er Medication 2023-05-13 DAPTOmycin (CUBICIN) in sodium [facility] 00:00:00 chloride (NS) NON-DEHP 50 ML Medical IVPB [code = 950541306] Cent er Procedure 2023-05-[address] [facility] 11:00:00 CHOLANGIOPANCREATOGRAPHY Med ical (ENDOSCOPIC RETROGRADE Cente r CHOLANGIOPANCREATOGRAPHY) Procedure 2023-05-24 ERCP, [facility]OPSY [facility] 11[facility] Center Encounters Start End Encounter Admission Attending Care Care Encounter Source Date/Time Date/Time Type Type Clinicians Facility Department ID 2023-05-07 Inpatient KEVIN ESPINOSA [facility] [id number] [facility] 21:51:05 SHAMIS 2023-04-30 Inpatient EL ARMANDO, [facility] [id number] [facility] 15:19:11 [facility] 2023-04-30 Inpatient BRITTNY MADDEN [facility] SLEH [id number] [facility] 15:14:04 2023-04-03 Inpatient ZACHERY ESPINOZA [facility] [id number] SLE[facility] 13:50:24 DILLAN 2023-04-02 Inpatient AGNES GLEZ [facility] SLEH [id number] SLEH 17:47:42 2023-03-31 Inpatient ZACHERY ESPINOZA [facility] SLE[facility] [id number] SLEH 16:18:05 DILLAN 2023-03-30 Outpatient ZACHERY HUGHES, [facility] Surgery [id number] SLEH 17:27:27 CASSANDRA 2023-03-24 Inpatient ZACHERY COLBERT [facility] [id number] SLEH 22:11:00 HERO 2023-02-04 Inpatient ER ARMANDO, SLEH SLEH [id number] SLEH 15:48:18 [facility] 2023-02-04 Inpatient ER ARMANDO, SLEH SLEH [id number] SLEH 15:18:22 [facility] 2023-02-01 Inpatient ER SENSANTOSI, SLEH SLEH [id number] SLE[facility] 23:55:57 [place] 2023-02-01 Inpatient ER RADHA, SLEH SLEH [id number] SLEH 07:13:52 FELIPA 2023-02-01 Inpatient ER SENSANTOSI, SLEH SLEH [id number] SLEH 03:51:00 [place] 2023-01-31 Inpatient ER SENUSSI, SLEH SLEH [id number] SLEH 12:51:50 [place] 2021-06-11 Inpatient [facility] Surgery [id number] SLEH 09:54:45 2021-06-01 Outpatient SYSTEM, [facility] CARMINA [id number] 08:07:56 PROVIDER Alfred abarca 2023-05-17 2023-05-17 Outpatient ZACHERY ABREU SLERachele [facility] [id number] SLEH 00:00:00 00:00:00 KYLER 2023-05-17 2023-05-17 Outpatient ZACHERY SLE[facility] SLEH [id number] SLEH 00:00:00 00:00:00 2023-05-17 2023-05-17 Outpatient ZACHERY BENITO, [facility] [id number] SLEH 00:00:00 00:00:00 LIANNE 2023-04-29 2023-05-12 Inpatient ER FERNANDA YODER [facility] 20 [id number] SLEH 09:26:00 15:51:00 2023-04-29 2023-05-12 [facility] Gayle Jin [facility] [id number] [facility] 09:26:00 15:51:00 Encounter Brittny Hall [facility], [facility], [facility] Fernanda Yoder 2023-05-12 2023-05-12 Refill Tameka, [facility] [id number] 00:00:00 00:00:00 [facility] 2023-05-02 2023-05-02 Outpatient [facility] [id number] SLE 10:32:44 10:32:44 , [facility] 2023-04-30 2023-04-30 [facility], [facility] [id number] 12:30:00 12:30:00 Encounter [facility] 2023-04-30 2023-04-30 [facility] [id number] SLE 00:00:00 00:00:00 [facility] 2023-04-29 2023-04-29 Emergency DAVIN, [facility] [id number] SLE 10:15:10 10:15:[address] [facility] 2023-04-29 2023-04-29 Outpatient DAVIN, [facility] [id number] SLE 09:45:35 09:45:[address] [facility] 2023-04-23 2023-04-23 [facility], [facility] [id number] 10:15:00 10:52:17 Telemedici [facility] 2023-04-23 2023-04-23 [facility], [facility] [id number] SLEH 10:11:45 10:52:17 LIANNE 2023-04-21 2023-04-21 Documentat Tamiko, [facility] [id number] 00:00:00 00:00:00 ion [facility] 2023-04-20 2023-04-20 Outpatient ZACHERY GHOSH [facility] Surgery [id number] SLEH 10:11:00 18:30:00 [place] 2023-04-20 2023-04-20 Hospital ZACHERY Ghosh, [facility] [id number] 10:11:00 18:30:00 Encounter [facility] 2023-04-20 2023-04-20 Surgery Virtual, [facility] [id number] 11:49:00 12:21:00 Surgeon [facility] 2023-04-20 2023-04-20 Outpatient ZACHERY LY [facility] SLE [id number] SLEH 13:54:12 10:10:00 RY-UY 2023-04-20 2023-04-20 [facility] Ry-Umax [facility] [id number] 10:00:00 10:10:00 Encounter Augie Mattel [facility] 2023-04-20 2023-04-20 Travel [facility] [id number] [facility] 00:00[facility]00 00:00:00 [facility] 2023-04-16 2023-04-16 Office [facility] [id number] 09:00:00 10:00:00 Visit [facility] 2023-04-16 2023-04-16 Outpatient EL SLE SLE [id number] SLEH 09:11:13 09:11:13 2023-04-14 2023-04-14 Outpatient EL SLEH SLEH [id number] SLEH 00:00:00 00:00:00 2023-04-12 2023-04-12 Outpatient ZACHERY ABREU SLE SLE [id number] SLEH 10:32:02 10:52:31 TANNAZ 2023-04-12 2023-04-12 Video - Brady [facility] [id number] 10:20:00 10:52:31 Telemedici [facility] 2023-04-09 2023-04-09 Ancillary EL 1.2.840.1 [id number] Univers 21:55:00 22:00:00 Procedure 33151.1.1 it y of 3.412.2.7 [place] .3.977709 MD Winston8 [facility] 2023-04-09 2023-04-09 Ancillary 1.2.840.1 [id number] 1112 [id number] Univers 21:55:00 22:00:00 Procedure 52347.1.1 it y of 3.412.2.7 [place] .3.833576 MD Winston8 [facility] 2023-04-09 2023-04-09 Ancillary 1.2.840.1 [id number] 1112 [id number] Univers 21:50:00 21:55:00 Procedure 32090.1.1 it y of 3.412.2.7 [place] .3.256915 .8 [facility] 2023-04-09 2023-04-09 Ancillary EL 1.2.840.1 [id number] 1112 [id number] Univers 21:50:00 21:55:00 Procedure 16672.1.1 it y of 3.412.2.7 [place] .3.246784 .8 [facility] 2023-04-07 2023-04-07 [id number] [facility] 00:00:00 00:00:00 [facility] 2023-04-07 2023-04-07 Telephone Brady [facility] [id number] 00:00:00 00:00:00 [facility] 2023-04-07 2023-04-07 Documentat Valentine [facility] [id number] 00:00:00 00:00:00 [facility] 2023-04-07 2023-04-07 Telephone India [facility] [id number] 00:00:00 00:00:00 [facility] 2023-03-24 2023-04-06 Inpatient ER GABY [facility] Surgery [id number] SLE 11:13:00 17:00:00 [facility] 2023-03-24 2023-04-06 [facility] [id number] 11:13:00 17:00:00 Encounter Dillan Espinoza [facility] 2023-04-05 2023-04-05 Orders [facility] [id number] 00:00:00 00:00:00 Only [facility] 2023-04-01 2023-04-01 Anesthesia Valle, [facility] [id number] 14:23:00 15:26:[address] [facility] 2023-04-01 2023-04-01 [facility] [id number] [facility] 15:15:43 15:15:43 [facility] 2023-04-01 2023-04-01 [facility] [id number] 12:30:00 14:00:00 [facility] 2023-03-29 2023-03-29 Ancillary 1.2.840.1 [id number] 1111 [id number] Univers 21:55:00 22:00:00 Procedure 54473.1.1 it y of 3.412.2.7 [place] .3.510662 MD Lynn [facility] 2023-03-29 2023-03-29 Ancillary EL 1.2.840.1 [id number] 1111 [id number] Univers 21:55:00 22:00:00 Procedure 48314.1.1 it y of 3.412.2.7 [place] .3.046989 MD Lynn [facility] 2023-03-29 2023-03-29 Ancillary 1.2.840.1 [id number] 1111 [id number] Univers 21:50:00 21:55:00 Procedure 33180.1.1 it y of 3.412.2.7 [place] .3.814696 MD Lynn [facility] 2023-03-29 2023-03-29 Ancillary EL 1.2.840.1 [id number] 1111 [id number] Univers 21:50:00 21:55:00 Procedure 64404.1.1 it y of 3.412.2.7 [place] .3.872187 MD Lynn [facility] 2023-03-29 2023-03-29 Ancillary 1.2.840.1 [id number] 1111 [id number] Univers 21:45:00 21:50:00 Procedure 55273.1.1 it y of 3.412.2.7 [place] .3.870206 MD Lynn [facility] 2023-03-29 2023-03-29 Ancillary EL 1.2.840.1 [id number] 1111 [id number] Univers 21:45:00 21:50:00 Procedure 03523.1.1 it y of 3.412.2.7 [place] .3.249412 MD Lynn [facility] 2023-03-29 2023-03-29 Ancillary 1.2.840.1 [id number] 1111 [id number] Univers 21:40:00 21:45:00 Procedure 72756.1.1 it y of 3.412.2.7 [place] .3.731200 MD Lynn [facility] 2023-03-29 2023-03-29 Ancillary EL 1.2.840.1 [id number] 1111 [id number] Univers 21:40:00 21:45:00 Procedure 70450.1.1 it y of 3.412.2.7 [place] .3.268930 MD Lynn [facility] 2023-03-29 2023-03-29 Ancillary EL 1.2.840.1 [id number] 1111 [id number] Univers 21:35:00 21:40:00 Procedure 02157.1.1 it y of 3.412.2.7 [place] .3.041034 MD Lynn [facility] 2023-03-29 2023-03-29 Ancillary 1.2.840.1 [id number] 1111 [id number] Univers 21:35:00 21:40:00 Procedure 98669.1.1 it y of 3.412.2.7 [place] .3.969035 MD Lynn [facility] 2023-03-29 2023-03-29 Ancillary EL 1.2.840.1 [id number] 1111 [id number] Univers 21:30:00 21:35:00 Procedure 47206.1.1 it y of 3.412.2.7 [place] .3.987123 MD Lynn [facility] 2023-03-29 2023-03-29 Ancillary 1.2.840.1 [id number] 1111 [id number] Univers 21:30:00 21:35:00 Procedure 30742.1.1 it y of 3.412.2.7 [place] .3.997730 MD Lynn [facility] 2023-03-29 2023-03-29 Ancillary EL 1.2.840.1 [id number] 1111 [id number] Univers 21:25:00 21:30:00 Procedure 49501.1.1 it y of 3.412.2.7 [place] .3.864354 MD Lynn [facility] 2023-03-29 2023-03-29 Ancillary 1.2.840.1 [id number] 1111 [id number] Univers 21:25:00 21:30:00 Procedure 67634.1.1 it y of 3.412.2.7 [place] .3.014122 MD Lynn [facility] 2023-03-29 2023-03-29 Ancillary EL 1.2.840.1 [id number] 1111 [id number] Univers 21:20:00 21:25:00 Procedure 65856.1.1 it y of 3.412.2.7 [place] .3.867664 MD Lynn [facility] 2023-03-29 2023-03-29 Ancillary 1.2.840.1 [id number] 1111 [id number] Univers 21:20:00 21:25:00 Procedure 26041.1.1 it y of 3.412.2.7 [place] .3.570921 MD Lynn [facility] 2023-03-29 2023-03-29 Ancillary EL 1.2.840.1 [id number] 1111 [id number] Univers 21:15:00 21:20:00 Procedure 36352.1.1 it y of 3.412.2.7 [place] .3.944017 MD Lynn [facility] 2023-03-29 2023-03-29 Ancillary 1.2.840.1 [id number] 1111 [id number] Univers 21:15:00 21:20:00 Procedure 43483.1.1 it y of 3.412.2.7 [place] .3.066485 MD Lynn [facility] 2023-03-29 2023-03-29 Ancillary EL 1.2.840.1 [id number] 1111 [id number] Univers 21:10:00 21:15:00 Procedure 69237.1.1 it y of 3.412.2.7 [place] .3.638581 MD Lynn [facility] 2023-03-29 2023-03-29 Ancillary 1.2.840.1 [id number] 1111 [id number] Univers 21:10:00 21:15:00 Procedure 93878.1.1 it y of 3.412.2.7 [place] .3.278485 MD Lynn [facility] 2023-03-29 2023-03-29 Ancillary EL 1.2.840.1 [id number] 1111 [id number] Univers 21:05:00 21:10:00 Procedure 29362.1.1 it y of 3.412.2.7 [place] .3.787322 MD Lynn [facility] 2023-03-29 2023-03-29 Ancillary 1.2.840.1 [id number] 1111 [id number] Univers 21:05:00 21:10:00 Procedure 38741.1.1 it y of 3.412.2.7 [place] .3.896189 MD Lynn [facility] 2023-03-29 2023-03-29 Ancillary EL 1.2.840.1 [id number] 1111 [id number] Univers 21:00:00 21:05:00 Procedure 97703.1.1 it y of 3.412.2.7 [place] .3.228408 MD .8 [facility] 2023-03-29 2023-03-29 Ancillary 1.2.840.1 [id number] 1111 [id number] Univers 21:00:00 21:05:00 Procedure 10137.1.1 it y of 3.412.2.7 [place] .3.777541 MD Lynn [facility] 2023-03-29 2023-03-29 Ancillary EL 1.2.840.1 [id number] 1111 [id number] Univers 20:55:00 21:00:00 Procedure 03495.1.1 it y of 3.412.2.7 [place] .3.425171 MD Lynn [facility] 2023-03-29 2023-03-29 Ancillary 1.2.840.1 [id number] 1111 [id number] Univers 20:55:00 21:00:00 Procedure 25053.1.1 it y of 3.412.2.7 [place] .3.118064 MD Lynn [facility] 2023-03-29 2023-03-29 Ancillary EL 1.2.840.1 [id number] 1111 [id number] Univers 20:50:00 20:55:00 Procedure 79735.1.1 it y of 3.412.2.7 [place] .3.518814 MD Lynn [facility] 2023-03-29 2023-03-29 Ancillary 1.2.840.1 [id number] 1111 [id number] Univers 20:50:00 20:55:00 Procedure 59794.1.1 it y of 3.412.2.7 [place] .3.257239 MD Lynn [facility] 2023-03-29 2023-03-29 Ancillary EL 1.2.840.1 [id number] 1111 [id number] Univers 20:45:00 20:50:00 Procedure 17065.1.1 it y of 3.412.2.7 [place] .3.204852 MD Lynn [facility] 2023-03-29 2023-03-29 Ancillary 1.2.840.1 [id number] 1111 [id number] Univers 20:45:00 20:50:00 Procedure 15970.1.1 it y of 3.412.2.7 [place] .3.748154 MD Lynn [facility] 2023-03-29 2023-03-29 Ancillary EL 1.2.840.1 [id number] 1111 [id number] Univers 20:40:00 20:45:00 Procedure 06123.1.1 it y of 3.412.2.7 [place] .3.719468 MD Winston8 [facility] 2023-03-29 2023-03-29 Ancillary 1.2.840.1 465112806 1111 [id number] Univers 20:40:00 20:45:00 Procedure 53952.1.1 it y of 3.412.2.7 [place] .3.687282 MD Winston8 [facility] 2023-03-29 2023-03-29 Ancillary EL 1.2.840.1 [id number] 1111 [id number] Univers 20:35:00 20:40:00 Procedure 90798.1.1 it y of 3.412.2.7 [place] .3.547671 MD Lynn [facility] 2023-03-29 2023-03-29 Ancillary 1.2.840.1 [id number] 1111 [id number] Univers 20:35:00 20:40:00 Procedure 62808.1.1 it y of 3.412.2.7 [place] .3.112783 MD Winston8 [facility] 2023-03-29 2023-03-29 Ancillary EL 1.2.840.1 [id number] 1111 [id number] Univers 20:30:00 20:35:00 Procedure 80893.1.1 it y of 3.412.2.7 [place] .3.374557 MD Winston8 [facility] 2023-03-29 2023-03-29 Ancillary 1.2.840.1 [id number] 1111 [id number] [employer] 20:30:00 20:35:00 Procedure 95929.1.1 it y of 3.412.2.7 [place] .3.872791 MD Winston8 [facility] 2023-03-29 2023-03-29 Ancillary EL 1.2.840.1 [id number] 1111 [id number] [employer] 20:25:00 20:30:00 Procedure 73318.1.1 it y of 3.412.2.7 [place] .3.354591 MD Lynn [facility] 2023-03-29 2023-03-29 Ancillary 1.2.840.1 [id number] 1111 [id number] Univers 20:25:00 20:30:00 Procedure 40051.1.1 it y of 3.412.2.7 [place] .3.955036 MD Lynn [facility] 2023-03-29 2023-03-29 Ancillary EL 1.2.840.1 [id number] 1111 [id number] Univers 20:20:00 20:25:00 Procedure 14246.1.1 it y of 3.412.2.7 [place] .3.654656 MD Lynn [facility] 2023-03-29 2023-03-29 Ancillary 1.2.840.1 [id number] 1111 [id number] Univers 20:20:00 20:25:00 Procedure 64818.1.1 it y of 3.412.2.7 [place] .3.724755 MD Lynn [facility] 2023-03-29 2023-03-29 Ancillary EL 1.2.840.1 [id number] 1111 [id number] Univers 20:15:00 20:20:00 Procedure 56983.1.1 it y of 3.412.2.7 [place] .3.089333 MD Lynn [facility] 2023-03-29 2023-03-29 Ancillary 1.2.840.1 [id number] 1111 [id number] Univers 20:15:00 20:20:00 Procedure 64395.1.1 it y of 3.412.2.7 [place] .3.434011 MD Lynn [facility] 2023-03-29 2023-03-29 Ancillary EL 1.2.840.1 [id number] 1111 [id number] Univers 20:10:00 20:15:00 Procedure 08708.1.1 it y of 3.412.2.7 [place] .3.780862 MD Lynn [facility] 2023-03-29 2023-03-29 Ancillary 1.2.840.1 [id number] 1111 [id number] Univers 20:10:00 20:15:00 Procedure 60096.1.1 it y of 3.412.2.7 [place] .3.869858 MD Winston8 [facility] 2023-03-29 2023-03-29 Ancillary EL 1.2.840.1 [id number] 1111 [id number] Univers 20:05:00 20:10:00 Procedure 13309.1.1 it y of 3.412.2.7 [place] .3.984096 MD Winston8 [facility] 2023-03-29 2023-03-29 Ancillary 1.2.840.1 [id number] 1111 [id number] Univers 20:05:00 20:10:00 Procedure 20041.1.1 it y of 3.412.2.7 [place] .3.559915 MD Winston8 [facility] 2023-03-29 2023-03-29 Ancillary EL 1.2.840.1 [id number] 1111 [id number] Univers 20:00:00 20:05:00 Procedure 26331.1.1 it y of 3.412.2.7 [place] .3.502304 MD Winston8 [facility] 2023-03-29 2023-03-29 Ancillary 1.2.840.1 [id number] 1111 [id number] Univers 20:00:00 20:05:00 Procedure 23667.1.1 it y of 3.412.2.7 [place] .3.720350 MD Winston8 [facility] 2023-03-26 2023-03-26 Outpatient ZACHERY ABREU [facility] [id number] SLE 00:00:00 00:00:00 TANNAZ 2023-03-25 2023-03-25 Inpatient ZACHERY COLBERT [facility] [id number] [facility] 16:45:17 23:59:00 HERO 2023-03-25 2023[facility]03-25 [facility] [id number] [facility] 14:40:00 23:59:00 Encounter Dillan Espinoza [facility] 2023-03-24 2023-03-24 Anesthesia Rossy Joyce [facility] [id number] [facility] 17:08:00 18:39:00 Event [facility] 2023-03-24 2023-03-24 Outpatient ZACHERY HUGHES SLE SLE [id number] SLEH 18:22:06 18:22:06 [facility] 2023-03-24 2023-03-24 Surgery Sumi [facility] [id number] 17:15:00 18:15:00 [facility] 2023-03-24 2023-03-24 Office Heppner-Gbenl [facility] [id number] 09:00:00 15:03:24 Visit a, [facility] 2023-03-24 2023-03-24 [facility] [id number] SLEH 08:47:28 15:03:24 A, [facility] 2023-03-24 2023-03-24 Emergency ZACHERY COLBERT [facility] SLE [id number] SLEH 13:28:17 13:28:17 [facility] 2023-03-24 2023-03-24 Outpatient ZACHERY COLBERT [facility] SLE [id number] SLEH 11:21:16 11:21:16 [facility] 2023-03-24 2023-03-24 [facility] [id number] 09:30:00 09:30:00 Encounter [facility] 2023-03-24 2023-03-24 Treatment [facility] [id number] 08:30:00 08:45:00 [facility] 2023-03-24 2023-03-24 Outpatient SLE SLE [id number] SLEH 08:30:26 08:30:26 2023-03-24 2023-03-24 Outpatient BRADY [facility] SLE [id number] SLEH 00:00:00 00:00:00 [facility] 2023-03-24 2023-03-24 Outpatient ZACHERY BENITO SLE SLEH [id number] SLEH 00:00:00 00:00:00 LIANNE 2023-03-24 2023-03-24 Emergency ZACHERY COLBERT SLE SLEH [id number] SLEH 00:00:00 00:00:00 HERO 2023-03-24 2023-03-24 Orders [facility] [id number] 00:00:00 00:00:00 Only [facility] 2023-03-24 2023-03-24 Travel [facility] [id number] [facility] 00:[facility]00 00:00:00 [facility] 2023-03-22 2023-03-22 Telephone [place], [facility] [id number] 00:00:00 00:00:00 [facility] 2023-03-18 2023-03-18 [facility] [id number] 00:00:00 00:00:00 ion [facility] 2023-03-18 2023-03-18 Documentat Mis [facility] [id number] 00:00:00 00:00:00 ion [facility] 2023-03-18 2023-03-18 Documentat Boy [facility] [id number] 00:00:00 00:00:00 ion [facility] 2023-03-12 2023-03-12 Outpatient BRADY [facility] SLE [id number] SLE 13:22:23 23:59:00 [facility] 2023-03-12 2023-03-12 [facility] [id number] 13:00:00 23:59:00 Encounter [facility] 2023-03-11 2023-03-11 Telephone [place], [facility] [id number] 00:00:00 00:00:00 [facility] 2023-03-11 2023-03-11 Orders Heppner-Gbenl [facility] [id number] 00:00:00 00:00:00 Only melo Jordin [facility] 2023-03-10 2023-03-10 Outpatient KEVIN DALTON SLE [id number] SLEH 09:48:41 23:59:00 [facility] 2023-03-10 2023-03-10 [facility] [id number] 09:00:00 23:59:00 Encounter [facility] 2023-03-10 2023-03-10 [facility] [id number] 08:40:00 10:41:05 Visit [facility] 2023-03-10 2023-03-10 Outpatient KEVIN DALTON SLE [id number] SLEH 08:34:59 10:41:05 [facility] 2023-03-10 2023-03-10 [facility] [id number] 08:15:00 08:30:00 Support [facility] 2023-03-10 2023-03-10 Outpatient EL SLE SLE [id number] SLEH 08:23:23 08:23:23 2023-03-10 2023-03-10 Outpatient SLE SLEH [id number] SLEH 00:00:00 00:00:00 2023-03-10 2023-03-10 Orders Armando [facility] [id number] 00:00:00 00:00:00 Only [facility] 2023-03-04 2023-03-04 [facility] [id number] 09:00:00 10:00:00 Visit [facility] 2023-03-04 2023-03-04 Outpatient EL SLE SLE [id number] SLEH 09:01:06 09:01:06 2023-03-03 2023-03-03 Outpatient ZACHERY AHN SLE SLE [id number] SLEH 15:30:34 23:59:00 [facility] 2023-03-03 2023-03-03 [facility] [id number] 15:30:00 23:59:00 Encounter [facility] 2023-02-26 2023-02-26 Outpatient KEVIN DALTON [facility] [id number] SLEH 13:27:55 23:59:00 [facility] 2023-02-26 2023-02-26 [facility] [id number] 13:00:00 23:59:00 Encounter [facility] 2023-02-24 2023-02-24 Outpatient [facility]ACHERY [facility] [id number] SLE 09:08:20 23:59:00 [facility] 2023-02-24 2023-02-24 [facility] [id number] 08:45:00 23:59:00 Encounter [facility] 2023-02-24 2023-02-24 [facility] [id number] 08:20:00 13:48:09 Visit [facility] 2023-02-24 2023-02-24 Outpatient KEVIN DALTON [facility] [id number] SLE 08:18:36 13:48:09 [facility] 2023-02-24 2023-02-24 Outpatient [facility] [id number] SLE 08:02:21 08:02:21 2023-02-24 2023-02-24 Treatment ZACHERY Abreu [facility] [id number] 07:45:00 08:00:00 [facility] 2023-02-15 2023-02-15 Telephone [place] [facility] [id number] 00:00:00 00:00:00 [facility] 2023-02-15 2023-02-15 Telephone Ozzie Pulliam [facility] [id number] 00:00:00 00:00:00 [facility] 2023-02-12 2023-02-12 Outpatient ZACHERY ABREU [facility] [id number] SLE 00:00:00 00:00:00 [facility] 2023-02-10 2023-02-10 [facility] Brady, [facility] [id number] 09:00:00 09:00:00 Encounter [facility] 2023-02-10 2023-02-10 Outpatient BRADY [facility] [id number] SLE 08:21:02 08:27:23 [facility] 2023-02-10 2023-02-10 [facility] Brady, [facility] [id number] 08:20:00 08:27:23 Telemedici [facility] 2023-02-10 2023-02-10 Outpatient BRADY [facility] [id number] SLE 00:00:00 00:00:00 [facility] 2023-02-10 2023-02-10 Outpatient [facility] [id number] SLE 00:00:00 00:00:00 2023-02-08 2023-02-08 Refill Brady, [facility] [id number] 00:00:00 00:00:00 [facility] 2023-01-31 2023-02-07 Inpatient ER ANABELLEPSYCHIATRIC Medical [facility] [id number] SLE 04:13:00 17:18:00 [facility] 2023-01-31 2023-02-07 Hospital ER Justinsantos Denverjaylen Arriola [facility] [id number] [facility] 04:13:00 17:18:00 Encounter Miguelito Whitaker Resjaylen [facility] 2023-02-02 2023-02-02 Inpatient ER LÁZARO, [facility] [id number] SLE 14:43:16 00:00:00 JEOVANY 2023-01-31 2023-01-31 Orders [facility] [id number] 00:00:00 00:00:00 Only [facility] 2023-01-31 2023-01-31 [facility] [id number] 00:00:00 00:00:00 kenyetta Cordova [facility] 2023-01-28 2023-01-28 [facility] [id number] 14:30:00 14:30:00 Encounter [facility] 2023-01-28 2023-01-28 Outpatient [facility] SLE [id number] SLE 00:00:00 00:00:00 2023-01-27 2023-01-27 [facility] [id number] 09:20:00 11:30:35 Visit [facility] 2023-01-27 2023-01-27 Outpatient ZACHERY ABREU [facility] [id number] SLEH 08:55:25 11:30:35 [facility] 2023-01-27 2023-01-27 [facility] [id number] 09:45:00 09:45:00 Encounter [facility] 2023-01-27 2023-01-27 Outpatient [facility] [id number] SLEH 08:41:38 08:41:38 2023-01-27 2023-01-27 Clinical Orlandodottymax [facility] [id number] 08:20:00 08:35:00 Support [facility] 2023-01-27 2023-01-27 Outpatient ZACHERY ABREU [facility] [id number] SLEH 00:00:00 00:00:00 [facility] 2023-01-27 2023-01-27 [facility] [id number] 00:00:00 00:00:00 Only [facility] 2023-01-27 2023-01-27 Loretto Marycarmencodeylink [facility] [id number] 00:00:00 00:00:00 [facility] 2023-01-27 2023-01-27 Telephone [place] [facility] [id number] 00:00:00 00:00:00 [facility] 2023-01-26 2023-01-26 Outpatient EL SLE SLE [id number] SLEH 00:00:00 00:00:00 2023-01-26 2023-01-26 Outpatient EL SLE SLE [id number] SLEH 00:00:00 00:00:00 2023-01-26 2023-01-26 [facility] [id number] 00:00:00 00:00:00 Only [facility] 2023-01-26 2023-01-26 [facility] [id number] 00:00:00 00:00:00 [facility] 2023-01-15 2023-01-15 Outpatient ZACHERY ABREU [facility] SLE [id number] SLE 10:12:27 23:59:00 [facility] 2023-01-15 2023-01-15 [facility] [id number] 10:12:27 23:59:00 Encounter [facility] 2023-01-13 2023-01-13 Outpatient CAR DALTON SLE [id number] SLEH 10:43:53 23:59:00 [facility] 2023-01-13 2023-01-13 [facility] [id number] 10:00:00 23:59:00 Encounter [facility] 2023-01-13 2023-01-13 Outpatient KEVIN DALTON SLE [id number] SLEH 09:33:34 11:34:41 [facility] 2023-01-13 2023-01-13 [facility] [id number] 09:20:00 11:34:41 Visit [facility] 2023-01-13 2023-01-13 Outpatient ZACHERY [facility] [id number] SLE 09:20:44 09:20:44 2023-01-13 2023-01-13 Clinical ZACHERY Abreu [facility] [id number] 09:00:00 09:15:00 Support [facility] 2023-01-11 2023-01-11 [facility] Orlandodottymax [facility] [id number] 00:00:00 00:00:[address] [facility] 2023-01-04 2023-01-04 [facility] Minomax [facility] [id number] 00:00:00 00:00:00 Only [facility] 2023-01-04 2023-01-04 [facility] [id number] 00:00:00 00:00:00 [facility] 2023-01-04 2023-01-04 [facility] [id number] 00:00:00 00:00:00 [facility] 2023-01-01 2023-01-01 Outpatient ZACHERY ABREU [facility] [id number] SLE 12:38:58 23:59:00 [facility] 2023-01-01 2023-01-01 [facility] [id number] 12:38:58 23:59:00 Encounter [facility] 2023-01-01 2023-01-01 [facility] [id number] 00:00:00 00:00:00 [facility] 2023-01-01 2023-01-01 [facility] Brady [facility] [id number] 00:00:00 00:00:00 [facility] 2022-12-30 2022-12-30 [facility] [id number] SLE 10:38:40 23:59:00 [facility] 2022-12-30 2022-12-30 [facility] [id number] 10:00:00 23:59:00 Encounter [facility] 2022-12-30 2022-12-30 Office Brady [facility] [id number] 09:20:00 14:05:01 Visit [facility] 2022-12-30 2022-12-30 Outpatient ZACHERY ABREU [facility] SLE [id number] SLE 09:06:55 14:05:01 [facility] 2022-12-30 2022-12-30 [facility] [id number] 09:05:00 09:20:00 [facility] 2022-12-30 2022-12-30 Outpatient [facility] [id number] SLE 08:49:16 08:49:16 2022-12-29 2022-12-29 [facility] [id number] 00:00:00 00:00:00 [facility] 2022-12-23 2022-12-23 Outpatient ZACHERY ABREU [facility] [id number] SLEH 09:00:43 23:59:00 [facility] 2022-12-23 2022-12-23 [facility] [id number] 09:00:43 23:59:00 Encounter [facility] 2022-12-23 2022-12-23 Outpatient ZACHERY ABREU [facility] [id number] SLEH 09:00:29 09:00:00 [facility] 2022-12-23 2022-12-23 [facility] [id number] 09:00:00 09:00:00 Encounter [facility] 2022-12-18 2022-12-18 Outpatient ZACHERY ABREU [facility] [id number] SLEH 13:40:32 23:59:00 [facility] 2022-12-18 2022-12-18 [facility] [id number] 13:00:00 23:59:00 Encounter [facility] 2022-12-17 2022-12-17 [facility] [id number] 14:00:00 14:00:00 [facility] 2022-12-17 2022-12-17 Outpatient EL SLEH SLE [id number] SLEH 00:00:00 00:00:00 2022-12-16 2022-12-16 Outpatient CAR DALTON SLE [id number] SLEH 13:23:23 23:59:00 [facility] 2022-12-16 2022-12-16 [facility] [id number] 12:15:00 23:59:00 Encounter [facility] 2022-12-16 2022-12-16 [facility] [id number] 11:40:00 13:36:31 Visit [facility] 2022-12-16 2022-12-16 Outpatient KEVIN DALTON SLE [id number] SLEH 10:52:33 13:36:31 [facility] 2022-12-16 2022-12-16 Treatment [facility] [id number] 10:40:00 10:55:00 [facility] 2022-12-16 2022-12-16 Outpatient EL SLEH SLE [id number] SLEH 10:40:33 10:40:33 2022-12-16 2022-12-16 Outpatient EL SLEH SLEH [id number] SLEH 00:00:00 00:00:00 2022-12-15 2022-12-15 [facility] [id number] 11:00:00 11:00:00 Encounter [facility] 2022-12-15 2022-12-15 Outpatient EL SLEH SLEH [id number] SLEH 00:00:00 00:00:00 2022-12-15 2022-12-15 Outpatient EL SLE SLE [id number] SLEH 00:00:00 00:00:00 2022-12-14 2022-12-14 [facility] [id number] 00:00:00 00:00:00 [facility] 2022-12-04 2022-12-04 Outpatient ZACHERY ABREU [facility] [id number] SLEH 12:19:00 23:59:00 [facility] 2022-12-04 2022-12-04 [facility] [id number] 12:19:00 23:59:00 Encounter [facility] 2022-12-03 2022-12-03 [facility] [id number] 13:45:00 13:45:00 Encounter [facility] 2022-12-03 2022-12-03 [facility] [id number] SLE 00:00:00 00:00:00 2022-12-02 2022-12-02 Outpatient ZACHERY [facility]RE[facility] [id number] SLEH 11:42:12 23:59:00 [facility] 2022-12-02 2022-12-02 [facility] [id number] 11:42:12 23:59:00 Encounter [facility] 2022-12-02 2022-12-02 Outpatient ZACHERY [facility] [id number] SLE 11:24:24 11:32:08 [facility] 2022-12-02 2022-12-02 [facility] [id number] 11:00:00 11:32:08 Visit [facility] 2022-12-02 2022-12-02 Outpatient ZACHERY [facility] [id number] SLEH 11:18:42 11:18:42 2022-12-02 2022-12-02 [facility] [id number] 10:00:00 10:15:00 [facility] 2022-12-01 2022-12-01 Outpatient SLE SLE [id number] SLEH 00:00:00 00:00:00 2022-12-01 2022-12-01 Outpatient EL SLE SLEH [id number] [facility]H 00:00:00 00:00:00 2022-12-01 2022-12-01 Outpatient EL SLEH SLE [id number] SLEH 00:00:00 00:00:00 2022-11-25 2022-11-25 [facility] [id number] 00:00:00 00:00:00 [facility] 2022-11-25 2022-11-25 [facility] [id number] 00:00:00 00:00:00 Only [facility] 2022-11-20 2022-11-20 Outpatient BRADY [facility] [id number] SLEH 13:37:49 23:59:00 [facility] 2022-11-20 2022-11-20 [facility] [id number] 13:37:49 23:59:00 Encounter [facility] 2022-11-19 2022-11-19 Outpatient SLE SLE [id number] SLEH 00:00:00 00:00:00 2022-11-18 2022-11-18 Outpatient BRADY [facility] [id number] SLE 10:50:24 23:59:00 [facility] 2022-11-18 2022-11-18 [facility] [id number] 09:45:00 23:59:00 Encounter [facility] 2022-11-18 2022-11-18 [facility] [id number] [facility] 09:00:00 12:08:08 Visit [facility] 2022-11-18 2022-11-18 Outpatient CAR DALTON [facility] [id number] [facility] 08:37:36 12:08:08 [facility] 2022-11-18 2022-11-18 Treatment ZACHERY Abreu [facility] [id number] [facility] 08:30:00 08:45:00 [facility] 2022-11-18 2022-11-18 Outpatient EL [facility]H SLE [id number] [facility] 08:29:31 08:29:31 2022-11-18 2022-11-18 Outpatient EL [facility] SLE [id number] [facility] 00:00:00 00:00:00 2022-11-17 2022-11-17 Outpatient EL [facility] SLE [id number] [facility] 00:00:00 00:00:00 2022-11-17 2022-11-17 Outpatient EL SLE SLE [id number] [facility] 00:00:00 00:00:00 2022-11-06 2022-11-06 Outpatient ZACHERY ABREU [facility] SLE [id number] [facility] 11:06:21 23:59:00 [facility] 2022-11-06 2022-11-06 [facility] [id number] [facility] 11:00:00 23:59:00 Encounter [facility] 2022-11-06 2022-11-06 Outpatient ZACHERY SLE SLE [id number] [facility] 00:00:00 00:00:00 2022-11-05 2022-11-05 Outpatient ZACHERY ABREU [facility] SLE [id number] [facility] 15:39:43 23:59:00 [facility] 2022-11-05 2022-11-05 [facility] [id number] 13:45:00 23:59:00 Encounter [facility] 2022-11-03 2022-11-03 Outpatient CAR DALTON [facility] [id number] [facility] 09:48:30 23:59:00 [facility] 2022-11-03 2022-11-03 [facility] [id number] [facility] [facility] 09:48:30 23:59:00 Encounter [facility] 2022-11-03 2022-11-03 Treatment ZACHERY Abreu [facility] [id number] [facility] 09:30:00 09:45:00 [facility] 2022-11-03 2022-11-03 Outpatient EL SLE SLE [id number] [facility] 09:33:06 09:33:06 2022-11-03 2022-11-03 Outpatient EL SLE SLE [id number] [facility] 00:00:00 00:00:00 2022-11-03 2022-11-03 Orders [facility] [id number] [facility] 00:00:00 00:00:00 Only [facility] 2022-10-21 2022-10-21 Historical Transcripti [facility] [id number] [facility] 00:00:00 00:00:00 Encounter on [facility] 2022-10-19 2022-10-19 Historical [employer] [id number] 00:00:00 00:00:00 Encounter [facility] 2022-10-16 2022-10-16 Ajay oRberts [facility] [id number] 00:00:00 00:00:00 Only [facility] 2022-10-13 2022-10-13 Emergency ER KEVIN JIN Emergency [id number] SLE 10:45:00 17:28:00 GAYLE 2022-10-13 2022-10-13 Emergency ER Abner Painter i [facility] [id number] [facility] 10:45:00 17:28:00 Gayle Jin [facility] 2022-10-13 2022-10-13 Travel [facility] [id number] [facility] 00:[facility]00 00:00:00 [facility] 2022-10-07 2022-10-07 Historical Transcripti [facility] [facility] [id number] [facility] 00[facility]00 Encounter on, [facility] 2022-10-05 2022-10-05 Historical Transcripti [facility] [id number] [facility] 00:[facility]:00 Encounter on, [facility] 2022-10-05 2022-10-05 Historical Brady [facility] [id number] 00:[facility] 00:00:00 Encounter [facility] 2022-09-23 2022-09-23 [facility] [id number] [facility] 00:00:00 00:00:00 [facility] 2022-09-23 2022-09-23 [facility] [id number] [facility] 00:00:00 00:00:00 [facility] 2022-09-23 2022-09-23 Historical Transcripti [facility] [id number] [facility] 00:00:00 Encounter on, [facility] 2022-09-21 2022-09-21 Historical Transcripti [facility] [id number] [facility] 00:00:00 Encounter on, [facility] 2022-09-21 2022-09-21 [facility] [id number] 00:[facility] 00:00:00 Encounter [facility] 2022-09-16 2022-09-16 Outpatient MARYCARMENLINK [facility] [id number] [facility] 07:31:22 23:59:00 [facility] 2022-09-16 2022-09-16 [facility] [id number] 07:31:22 23:59:00 Encounter [facility] 2022-09-16 2022-09-16 Outpatient BRADY [facility] [id number] [facility] 07:31:01 23:59:00 [facility] 2022-09-16 2022-09-16 [facility] Brady, [facility] [id number] 07:31: 23:59:00 Encounter [facility] 2022-09-16 2022-09-16 Travel [facility] [id number] [facility] 00:00:00 [facility] 2022-09-15 2022-09-15 [facility] Armando [facility] [id number] 00:00:00 00:00:00 Only [facility] 2022-09-09 2022-09-09 Historical Transcripti [facility] [id number] [facility] 00:[facility] 00:00:00 Encounter on, [facility] 2022-09-07 2022-09-07 [facility] Marycarmennasrin [facility] [id number] 00:00:00 00:00:00 Only [facility] 2022-09-07 2022-09-07 Historical Transcripti [facility] [id number] [facility] 00:00:00 00:00:00 Encounter on, [facility] 2022-09-07 2022-09-07 Historical Marycarmencodeydottymax [facility] [id number] 00:00:00 00:00:00 Encounter [facility] 2022-08-26 2022-08-26 Historical Transcripti [facility] [id number] [facility] 00:00:00 00:00:00 Encounter on, [facility] 2022-08-24 2022-08-24 Historical Transcripti [facility] [id number] [facility] 00:[facility]:00 00:00:00 Encounter on, [facility] 2022-08-24 2022-08-24 Historical Marycarmennasrin [facility] [id number] 00:00:00 00:00:00 Encounter [facility] 2022-08-12 2022-08-12 Historical Transcripti [facility] [id number] [facility]00 00:00:00 Encounter on, [facility] 2022-08-10 2022-08-10 Historical Transcripti [facility] [id number] [facility]00 00:00:00 Encounter on, [facility] 2022-08-10 2022-08-10 Historical Marycarmennasrin [facility] [id number] 00:00:00 00:00:00 Encounter [facility] 2022-08-05 2022-08-08 Inpatient ER BRITTNY HALL [facility] General Med [id number] SLE 05:05:00 09:30:00 2022-08-05 2022-08-08 Hospital ER Basilia Ly [facility] [id number] 05:05:00 09:30:00 Encounter Miguelito Whitaker [facility] 2022-08-07 2022-08-07 Surgery Blanca, [facility] [id number] 09:00:00 10:30:00 [facility]22-08-07 2022-08-07 Anesthesia Maximilian Barbara [facility] [id number] [facility] 09:05:00 10:00:00 Event Kimmie Garcia [facility] 2022-08-05 2022-08-05 Outpatient EL [facility] [id number] SLE 07:06:13 07:06:13 2022-08-05 2022-08-05 Travel [facility] [id number] [facility] 00:[facility]00 00:00:00 [facility] 2022-08-03 2022-08-03 Historical Brady [facility] [id number] 00:00:00 00:00:00 Encounter [facility] 2022-07-27 2022-07-27 Outpatient EL [facility] SLE [id number] [facility] 06:41:40 06:41:40 2022-07-22 2022-07-22 Historical Transcripti [facility] [id number] [facility]00 00:00:00 Encounter on, [facility] 2022-07-20 2022-07-20 Historical Transcripti [facility] [id number] [facility]:00 00:00:00 Encounter on, [facility] 2022-07-20 2022-07-20 Historical Marycarmencodeylink [facility] [id number] 00:00:00 00:00:00 Encounter [facility] 2022-07-15 2022-07-15 Historical Brady [facility] [id number] 00:00:00 00:00:00 Encounter [facility] 2022-07-02 2022-07-02 Outpatient CARINE BLANC [facility] SLE [id number] SLE 10:55:51 10:55:51 2022-07-02 2022-07-02 Office Carine Rutledge [facility] [id number] 09:45:00 10:00:00 Visit [facility] 2022-07-02 2022-07-02 [facility] Brady [facility] [id number] 00:00:00 00:00:00 Encounter [facility] 2022-07-01 2022-07-01 Historical Brady [facility] [id number] 00:00:00 00:00:00 Encounter [facility] 2022-06-24 2022-06-24 Outpatient ZACHERY [facility] [id number] [facility] 00:00:00 00:00:00 2022-06-03 2022-06-03 [facility] Brady [facility] [id number] 00:00:00 00:00:00 Encounter [facility] 2022-05-28 2022-05-28 Outpatient ZACHERY ABREU [facility] SLE [id number] SLEH 09:28:00 23:59:00 [facility] 2022-05-28 2022-05-28 [facility] [id number] 09:28:00 23:59:00 Encounter [facility] 2022-05-28 2022-05-28 Outpatient ZACHERY ABREU [facility] [id number] SLE[facility] 09:27:12 09:27:12 [facility] 2022-05-28 2022-05-28 [facility] [id number] 09:27:12 09:27:12 Encounter [facility] 2022-04-20 2022-04-20 Outpatient [facility] [id number] SLE 13:06:42 13:06:42 2022-03-25 2022-03-25 [facility] [id number] 00:00:00 00:00:00 Only [facility] 2022-03-23 2022-03-23 Procedure Palacios, [facility] [id number] 09:30:00 10:30:[address] [facility] 2022-02-19 2022-02-19 Procedure Palacios, [facility] [id number] 09:30:00 10:30:[address] [facility] 2022-02-19 2022-02-19 [id number] [facility] 06:35:20 06:35:20 2022-02-04 2022-02-04 Procedure EL Palacios, [facility] [id number] 14:00:00 15:00:[address] [facility] 2022-02-04 2022-02-04 Outpatient EL SLE SLE [id number] SLEH 08:02:11 08:02:11 2022-02-03 2022-02-03 [facility] [id number] [facility] 00:00:00 00:00:00 2022-02-02 2022-02-02 Outpatient EL SLE SLE [id number] [facility]H 07:23:11 07:23:11 2022-02-02 2022-02-02 [facility] [id number] 00:00:00 00:00:00 [facility] 2022-01-22 2022-01-22 [facility] [id number] 00:00:00 00:00:00 ion [facility] 2022-01-06 2022-01-06 Outpatient ZACHERY ABREU [facility] SLE [id number] SLE 13:51:17 23:59:00 [facility] 2022-01-06 2022-01-06 [facility] [id number] 13:51:17 23:59:00 Encounter [facility] 2021-12-29 2021-12-29 Outpatient EL SLE SLE [id number] SLEH 15:50:07 15:50:07 2021-12-29 2021-12-29 Orders Mino [facility] [id number] 09:30:00 09:45:00 Only [facility] 2021-12-25 2021-12-25 [facility] [id number] 00:00:00 00:00:00 [facility] 2021-12-25 2021-12-25 [facility] [id number] 00:00:00 00:00:00 Orders [facility] 2021-12-19 2021-12-19 Outpatient EL SLE SLEH [id number] [facility]H 10:13:05 10:13:05 2021-12-19 2021-12-19 Orders ZACHERY [facility] [id number] 09:00:00 09:15:[address] [facility] 2021-12-05 2021-12-05 Outpatient EL SLE SLEH [id number] SLEH 14:33:51 14:33:51 2021-12-05 2021-12-05 [id number] 09:00:00 09:15:00 Only [facility] 2021-12-01 2021-12-01 Outpatient [facility] [id number] SLE 14:39:43 14:39:43 2021-11-28 2021-11-28 Orders ZACHERY Abreu, [facility] [id number] 07:15:00 07:30:00 Only [facility] 2021-11-21 2021-11-21 Outpatient ZACHERY ABREU [facility] SLE [id number] SLEH 11:30:22 23:59:00 [facility] 2021-11-21 2021-11-21 [facility] [id number] 11:30:22 23:59:00 Encounter [facility] 2021-11-21 2021-11-21 Outpatient ZACHERY ABREU [facility] SLE [id number] SLE 10:09:16 11:29:00 [facility] 2021-11-21 2021-11-21 [facility] [id number] 10:09:16 11:29:00 Encounter [facility] 2021-11-21 2021-11-21 Outpatient ZACHERY ABREU [facility] SLE [id number] SLEH 10:08:31 10:08:31 [facility] 2021-11-21 2021-11-21 [facility] [id number] 10:08:31 10:08:31 Encounter [facility] 2021-11-21 2021-11-21 Outpatient ZACHERY ABREU [facility] SLE [id number] SLEH 11:30:13 10:07:00 [facility] 2021-11-21 2021-11-21 [facility] [id number] 09:00:00 10:07:00 Encounter [facility] 2021-11-20 2021-11-20 Outside Brady [facility] [id number] 00:00:00 00:00:00 Orders [facility] 2021-11-14 2021-11-14 Outpatient [facility] SLE [id number] SLE 16:05:04 16:05:04 2021-11-14 2021-11-14 Orders Brady [facility] [id number] 09:45:00 10:00:00 Only [facility] 2021-10-07 2021-10-07 [facility] [id number] 00:00:00 00:00:00 Orders [facility] 2021-08-25 2021-08-25 Refill Wilber [facility] [id number] 00:00:00 00:00:00 [facility] 2021-08-05 2021-08-05 Outpatient [facility] [id number] [facility] 00:00:00 00:00:00 [facility] 2021-08-05 2021-08-05 Telephone Rodriguez [facility] [id number] 00:00:00 00:00:00 [facility] 2021-08-04 2021-08-04 [facility] 2 [id number] [facility] 09:40:19 12:58:00 [facility] 2021-08-04 2021-08-04 [facility] [id number] 08:43:00 12:58:00 Encounter Nydia Ibrahim [facility] 2021-08-04 2021-08-04 [facility] [id number] SL 09:06:45 09:06:45 [facility] 2021-08-04 2021-08-04 [facility] [id number] [facility] 09:06:38 09:06:38 [facility] 2021-07-31 2021-07-31 Telephone Michael [facility] [id number] 00:00:00 00:00:00 [facility] 2021-07-31 2021-07-31 Telephone Michael [facility] [id number] 00:00:00 00:00:00 [facility] 2021-07-29 2021-07-29 Outside [facility] [id number] 00:00:00 00:00:00 Orders [facility] 2021-07-28 2021-07-28 Outpatient ZACHERY ABREU [facility] [id number] SLE 14:26:25 23:59:00 [facility] 2021-07-28 2021-07-28 [facility] [id number] 14:26:25 23:59:00 Encounter [facility] 2021-07-28 2021-07-28 Outpatient BRADY [facility] [id number] SLE 14:26:18 14:25:00 [facility] 2021-07-28 2021-07-28 [facility] [id number] 14:00:00 14:25:00 Encounter [facility] 2021-07-25 2021-07-25 [facility] [id number] 00:00:00 00:00:00 Orders [facility] 2021-07-23 2021-07-23 Refill Wilber [facility] [id number] 00:00:00 00:00:00 [facility] 2021-07-22 2021-07-22 Refill Wilber [facility] [id number] 00:00:00 00:00:00 [facility] 2021-07-21 2021-07-21 Outside Brady, [facility] [id number] 00:00:00 00:00:00 Orders [facility] 2021-07-07 2021-07-11 Inpatient UR LUPILLO GODDARD [facility] General Med [id number] [facility] 09:45:00 12:28:00 2021-07-07 2021-07-11 Hospital UR Jenn Jacobs [facility] [id number] [facility] 09:45:00 12:28:00 Encounter [facility] 2021-07-10 2021-07-10 Anesthesia Harrison [facility] [id number] 10:54:00 12:31:00 Event Halie [facility] 2021-07-10 2021-07-10 Surgery Johanne [facility] [id number] 11:00:00 12:10:00 [facility] 2021-07-07 2021-07-07 Travel [facility] [id number] [facility] 00:[facility]00 00:00:00 [facility] 2021-06-03 2021-06-26 Inpatient ER [facility] [id number] [facility] 08:45:00 11:07:00 EDSON [facility] 2021-06-03 2021-06-26 Hospital ER Katya Mccrary [facility] [id number] [facility] 08:45:00 11:07:00 Encounter Katie [facility] 2021-06-18 2021-06-18 Orders Jerrell [facility] [id number] 00:00:00 00:00:00 Only [facility] 2021-06-12 2021-06-12 Anesthesia Robinson Vaibhav Kenyon [facility] [id number] 16:09:00 18:16:00 Event Cherry Cuevas [facility] 2021-06-12 2021-06-12 Surgery Virtual, [facility] [id number] 13:00:00 15:39:00 Surgeon [facility] 2021-06-09 2021-06-09 Ancillary EL 1.2.840.1 [id number] 11:11:21 11:11:21 Procedure 92771.1.1 An derso 3.412.2.7 n .3.394072 .8 2021-06-09 2021-06-09 Ancillary EL 1.2.840.1 [id number] 11:11:11 11:11:11 Procedure 69620.1.1 An derso 3.412.2.7 n .3.387836 .8 2021-06-09 2021-06-09 Ancillary EL 1.2.840.1 [id number] 11:11:08 11:11:08 Procedure 81504.1.1 An derso 3.412.2.7 n .3.525968 .8 2021-06-07 2021-06-[address] [facility] [id number] 09:25:00 11:25:00 [facility] 2021-06-07 2021-06-07 Surgery [facility] [id number] 09:23:00 10:58:00 [facility] 2021-06-03 2021-06-03 Travel [facility] [id number] [facility] 00:00:00 00:00:00 [facility] 2020-09-16 2020-09-16 Outpatient [facility] PBXFGBC [facility] 00:00:00 00:00:00 [id number] Results Test Description Test Time Test Comments Results Result Comments Source POC-Glucose meter 2023-05-12 12:33:36 Test Item Value Reference Range Interpretation Comme nts POC-Glucose Meter (test code = 94 mg/dL 70-110 : TESTED AT [facility] [address] [place] [address]) [facility], [facility] 30: Music Therapy Specialist/Techni grisel ID = [id number] for UmanaKurtis wyatt Lab Interpretation (test code = Normal 02925-9) [facility] [id number] 12:33:36 Test Item Value Reference Range Interpretation Comments POC-Glucose Meter (test 94 mg/dL 70-110 : TE STED AT [facility] code = 1538) 67[address] [facility], 770 30: Music Therapy Specialist/Techni grisel ID = [id number] for UmanaKurtis wyatt Lab Interpretation (test Normal code = 77961-6) [facility] Center[facility]GLU[facility]SE [id number] 12:33:36 Test Item Value Reference Range Interpretation Comments POC-GLUCOSE METER 94 mg/dL 70-110 : [facility] (BEAKER) (test code = [facility], 1538) 15487: Music Therapy Specialist/Techni grisel ID = [id number] for Ca siri Kurtis POCT-GLUCOSE [id number] 08:25:24 Test Item Value Reference Range Interpretation Comments POC-GLUCOSE METER 82 mg/dL 70-110 : [facility] (BEAKER) (test code = [facility], 1538) 05190: Music Therapy Specialist/Techni grisel ID = [id number] for Kurtis Izquierdo COMPREHENSIVE METABOLIC [id number] 06:37:28 Test Item Value Reference Range Interpretation Comments TOTAL PROTEIN 5.9 gm/dL 6.0-8.3 L (BEAKER) (test code = 770) ALBUMIN (BEAKER) 2.0 g/dL 3.5-5.0 L (test code = 1145) ALKALINE 487 U/L 40-150 H PHOSPHATASE (BEAKER) (test code = 346) BILIRUBIN TOTAL 2.2 mg/dL 0.2-1.2 H (BEAKER) (test code = 377) SODIUM (BEAKER) 135 meq/L 136-145 L (test code = 381) POTASSIUM (BEAKER) 3.4 meq/L 3.5-5.1 L (test code = 379) CHLORIDE (BEAKER) 100 meq/L 98-107 (test code = 382) CO2 (BEAKER) (test 24 meq/L 22-29 code = 355) BLOOD UREA 4 mg/dL 7-21 L NITROGEN (BEAKER) (test code = 354) CREATININE 0.45 mg/dL 0.57-1.25 L (BEAKER) (test code = 358) GLUCOSE RANDOM 70 mg/dL 70-105 (BEAKER) (test code = 652) CALCIUM (BEAKER) 7.9 mg/dL 8.4-10.2 L (test code = 697) AST (SGOT) 30 U/L 5-34 (BEAKER) (test code = 353) ALT (SGPT) 11 U/L 6-55 (BEAKER) (test code = 347) EGFR (BEAKER) 115 Interpretatio n of eGFR (test code = [...] not appl icable for dialysis patien ts Music Therapy Specialist ID - [id number] 06:32:56 Test Item Value Reference Range Interpretation Comments MAGNESIUM (BEAKER) (test code = 1.5 mg/dL 1.6-2.6 L 627) Music Therapy Specialist ID - ADMINCBC W/PLT COUNT & AUTO [id number] 05:55:56 Test Item Value Reference Range Interpretation Comments WHITE BLOOD CELL COUNT (BEAKER) 5.6 K/ L 3.5-10.5 (test code = 775) RED BLOOD CELL COUNT (BEAKER) 2.67 M/ L 3.93-5.22 L (test code = 761) HEMOGLOBIN (BEAKER) (test code = 7.9 GM/DL 11.2-15.7 L 410) HEMATOCRIT (BEAKER) (test code = 25.0 % 34.1-44.9 L 411) MEAN CORPUSCULAR VOLUME (BEAKER) 94 fL 79-95 (test code = 753) MEAN CORPUSCULAR HEMOGLOBIN 29.6 pg 25.6-32.2 (BEAKER) (test code = 751) MEAN CORPUSCULAR HEMOGLOBIN CONC 31.6 GM/DL 32.2-35.5 L (BEAKER) (test code = 752) RED CELL DISTRIBUTION WIDTH 19.9 % 11.7-14.4 H (BEAKER) (test code = 412) PLATELET COUNT (BEAKER) (test code 83 K/CU MM 150-450 L = 756) MEAN PLATELET VOLUME (BEAKER) 10.2 fL 9.4-12.3 (test code = 754) NUCLEATED RED BLOOD CELLS (BEAKER) 0 /100 WBC 0-0 (test code = 413) NEUTROPHILS RELATIVE PERCENT 75 % (BEAKER) (test code = 429) LYMPHOCYTES RELATIVE PERCENT 14 % (BEAKER) (test code = 430) MONOCYTES RELATIVE PERCENT 9 % (BEAKER) (test code = 431) EOSINOPHILS RELATIVE PERCENT 1 % (BEAKER) (test code = 432) BASOPHILS RELATIVE PERCENT 1 % (BEAKER) (test code = 437) NEUTROPHILS ABSOLUTE COUNT 4.23 K/ L 1.56-6.13 (BEAKER) (test code = 670) LYMPHOCYTES ABSOLUTE COUNT 0.77 K/ L 1.18-3.74 L (BEAKER) (test code = 414) MONOCYTES ABSOLUTE COUNT (BEAKER) 0.49 K/ L 0.24-0.36 H (test code = 415) EOSINOPHILS ABSOLUTE COUNT 0.07 K/ L 0.04-0.36 (BEAKER) (test code = 416) BASOPHILS ABSOLUTE COUNT (BEAKER) 0.03 K/ L 0.01-0.08 (test code = 417) IMMATURE GRANULOCYTES-RELATIVE 0.50 % 0.00-1.00 PERCENT (BEAKER) (test code = 2801) POCT-GLUCOSE [id number] 20:18:23 Test Item Value Reference Range Interpretation Comments POC-GLUCOSE METER 93 mg/dL 70-110 : TESTED A T [facility] 6720 (BEAKER) (test code = KENYA SANTOS, 1538) 22867: Music Therapy Specialist/Techni grisel ID = [id number] for Lata Luu POCT-GLUCOSE [id number] 17:32:09 Test Item Value Reference Range Interpretation Comments POC-GLUCOSE METER 108 mg/dL 70-110 : TESTED A T [facility] (BEAKER) (test code = KENYA Mcmullen [place], 1538) 83804: Music Therapy Specialist/Techni grisel ID = [id number] for NATALIA ONTIVEROS COMPREHENSIVE METABOLIC [id number] 07:21:26 Test Item Value Reference Range Interpretation Comments TOTAL PROTEIN 6.3 gm/dL 6.0-8.3 (BEAKER) (test code = 770) ALBUMIN (BEAKER) 2.1 g/dL 3.5-5.0 L (test code = 1145) ALKALINE 600 U/L 40-150 H PHOSPHATASE (BEAKER) (test code = 346) BILIRUBIN TOTAL 2.2 mg/dL 0.2-1.2 H (BEAKER) (test code = 377) SODIUM (BEAKER) 135 meq/L 136-145 L (test code = 381) POTASSIUM (BEAKER) 3.8 meq/L 3.5-5.1 (test code = 379) CHLORIDE (BEAKER) 102 meq/L 98-107 (test code = 382) CO2 (BEAKER) (test 25 meq/L 22-29 code = 355) BLOOD UREA 4 mg/dL 7-21 L NITROGEN (BEAKER) (test code = 354) CREATININE 0.44 mg/dL 0.57-1.25 L (BEAKER) (test code = 358) GLUCOSE RANDOM 92 mg/dL 70-105 (BEAKER) (test code = 652) CALCIUM (BEAKER) 7.8 mg/dL 8.4-10.2 L (test code = 697) AST (SGOT) 29 U/L 5-34 (BEAKER) (test code = 353) ALT (SGPT) 12 U/L 6-55 (BEAKER) (test code = 347) EGFR (BEAKER) 116 Interpretatio n of eGFR (test code = [...] not appl icable for dialysis patien ts Music Therapy Specialist ID - [id number] 07:17:36 Test Item Value Reference Range Interpretation Comments MAGNESIUM (BEAKER) (test code = 1.6 mg/dL 1.6-2.6 627) Music Therapy Specialist ID - [id number] W/PLT COUNT & AUTO [id number] 05:57:46 Test Item Value Reference Range Interpretation Comments WHITE BLOOD CELL COUNT (BEAKER) 9.3 K/ L 3.5-10.5 (test code = 775) RED BLOOD CELL COUNT (BEAKER) 2.94 M/ L 3.93-5.22 L (test code = 761) HEMOGLOBIN (BEAKER) (test code = 8.5 GM/DL 11.2-15.7 L 410) HEMATOCRIT (BEAKER) (test code = 26.6 % 34.1-44.9 L 411) MEAN CORPUSCULAR VOLUME (BEAKER) 91 fL 79-95 (test code = 753) MEAN CORPUSCULAR HEMOGLOBIN 28.9 pg 25.6-32.2 (BEAKER) (test code = 751) MEAN CORPUSCULAR HEMOGLOBIN CONC 32.0 GM/DL 32.2-35.5 L (BEAKER) (test code = 752) RED CELL DISTRIBUTION WIDTH 20.3 % 11.7-14.4 H (BEAKER) (test code = 412) PLATELET COUNT (BEAKER) (test code 86 K/CU MM 150-450 L = 756) MEAN PLATELET VOLUME (BEAKER) 10.4 fL 9.4-12.3 (test code = 754) NUCLEATED RED BLOOD CELLS (BEAKER) 0 /100 WBC 0-0 (test code = 413) NEUTROPHILS RELATIVE PERCENT 86 % (BEAKER) (test code = 429) LYMPHOCYTES RELATIVE PERCENT 6 % (BEAKER) (test code = 430) MONOCYTES RELATIVE PERCENT 7 % (BEAKER) (test code = 431) EOSINOPHILS RELATIVE PERCENT 0 % (BEAKER) (test code = 432) BASOPHILS RELATIVE PERCENT 0 % (BEAKER) (test code = 437) NEUTROPHILS ABSOLUTE COUNT 7.98 K/ L 1.56-6.13 H (BEAKER) (test code = 670) LYMPHOCYTES ABSOLUTE COUNT 0.57 K/ L 1.18-3.74 L (BEAKER) (test code = 414) MONOCYTES ABSOLUTE COUNT (BEAKER) 0.66 K/ L 0.24-0.36 H (test code = 415) EOSINOPHILS ABSOLUTE COUNT 0.03 K/ L 0.04-0.36 L (BEAKER) (test code = 416) BASOPHILS ABSOLUTE COUNT (BEAKER) 0.03 K/ L 0.01-0.08 (test code = 417) IMMATURE GRANULOCYTES-RELATIVE 0.30 % 0.00-1.00 PERCENT (BEAKER) (test code = 2801) POCT-GLUCOSE [id number] 20:38:53 Test Item Value Reference Range Interpretation Comments POC-GLUCOSE METER 128 mg/dL 70-110 H : TESTED A T [facility]20 (BEAKER) (test code = [place], 1538) [address]: Music Therapy Specialist/Techni grisel ID = [id number] for Lata Paula Fungus culture + [id number] 18:06:29 Test Item Value Reference Range Interpretation Comments Result (test code = <1+ Same organism A Ref er to 6463-4) has been isolated previous from cultures(s) of culture the same body site ofCandida and collection date. albican s Repeat identification and susceptibility testing performed only after consultation with the clinical microbiology laboratory. Fungus Smear (test <1+ hyphal elements code = 1406) seen Lab Interpretation Abnormal (test code = 74054-0) [facility] [id number] 18:06:29 Test Item Value Reference Range Interpretation Comments Result (test code = <1+ Same organism A Ref er to 6463-4) has been isolated previous from cultures(s) of culture the same body site ofCandida and collection date. albican s Repeat identification and susceptibility testing performed only after consultation with the clinical microbiology laboratory. Fungus Smear (test <1+ hyphal elements code = 1406) seen Lab Interpretation Abnormal (test code = 54777-6) [facility] + [id number] 18:06:29 Test Item Value Reference Range Interpretation Comments CULTURE (BEAKER) A <1+ Same or ganism has (test code = been isolated f rom 1095) cultures(s) of the same body site and collection date . Repeat identifi cation and susceptibil ity testing perform ed only after consultat ion with the [facility] microbiology laboratory.Refe r to previous cultur e ofCandida albic ans FUNGUS SMEAR <1+ hyphal (BEAKER) (test elements seen code = 1406) POCT-GLUCOSE [id number] 14:05:11 Test Item Value Reference Range Interpretation Comments POC-GLUCOSE METER 99 mg/dL 70-110 : TESTED A T [facility] 6720 (BEAKER) (test code = [facility] Feng [facility], 1538) [address]: Music Therapy Specialist/Techni grisel ID = [id number] for Nai Ladd POCT-GLUCOSE [id number] 09:36:22 Test Item Value Reference Range Interpretation Comments POC-GLUCOSE METER 72 mg/dL 70-110 : TESTED A T [facility] 6720 (BEAKER) (test code = [facility] Feng [facility], 1538) [address]: Music Therapy Specialist/Techni grisel ID = [id number] for Nai Ladd COMPREHENSIVE METABOLIC [id number] 06:52:21 Test Item Value Reference Range Interpretation Comments TOTAL PROTEIN 5.9 gm/dL 6.0-8.3 L (BEAKER) (test code = 770) ALBUMIN (BEAKER) 2.0 g/dL 3.5-5.0 L (test code = 1145) ALKALINE 513 U/L 40-150 H PHOSPHATASE (BEAKER) (test code = 346) BILIRUBIN TOTAL 2.0 mg/dL 0.2-1.2 H (BEAKER) (test code = 377) SODIUM (BEAKER) 136 meq/L 136-145 (test code = 381) POTASSIUM (BEAKER) 3.2 meq/L 3.5-5.1 L (test code = 379) CHLORIDE (BEAKER) 103 meq/L 98-107 (test code = 382) CO2 (BEAKER) (test 24 meq/L 22-29 code = 355) BLOOD UREA 5 mg/dL 7-21 L NITROGEN (BEAKER) (test code = 354) CREATININE 0.44 mg/dL 0.57-1.25 L (BEAKER) (test code = 358) GLUCOSE RANDOM 82 mg/dL 70-105 (BEAKER) (test code = 652) CALCIUM (BEAKER) 7.5 mg/dL 8.4-10.2 L (test code = 697) AST (SGOT) 26 U/L 5-34 (BEAKER) (test code = 353) ALT (SGPT) 10 U/L 6-55 (BEAKER) (test code = 347) EGFR (BEAKER) 116 Interpretatio n of eGFR (test code = [...] not appl icable for dialysis patien ts Music Therapy Specialist ID - [id number] 06:51:30 Test Item Value Reference Range Interpretation Comments MAGNESIUM (BEAKER) (test code = 1.4 mg/dL 1.6-2.6 L 627) Music Therapy Specialist ID - ADMINCBC W/PLT COUNT & AUTO [id number] 04:16:29 Test Item Value Reference Range Interpretation Comments WHITE BLOOD CELL COUNT (BEAKER) 5.9 K/ L 3.5-10.5 (test code = 775) RED BLOOD CELL COUNT (BEAKER) 2.74 M/ L 3.93-5.22 L (test code = 761) HEMOGLOBIN (BEAKER) (test code = 7.9 GM/DL 11.2-15.7 L 410) HEMATOCRIT (BEAKER) (test code = 25.2 % 34.1-44.9 L 411) MEAN CORPUSCULAR VOLUME (BEAKER) 92 fL 79-95 (test code = 753) MEAN CORPUSCULAR HEMOGLOBIN 28.8 pg 25.6-32.2 (BEAKER) (test code = 751) MEAN CORPUSCULAR HEMOGLOBIN CONC 31.3 GM/DL 32.2-35.5 L (BEAKER) (test code = 752) RED CELL DISTRIBUTION WIDTH 20.8 % 11.7-14.4 H (BEAKER) (test code = 412) PLATELET COUNT (BEAKER) (test code 74 K/CU MM 150-450 L = 756) MEAN PLATELET VOLUME (BEAKER) 10.6 fL 9.4-12.3 (test code = 754) NUCLEATED RED BLOOD CELLS (BEAKER) 0 /100 WBC 0-0 (test code = 413) NEUTROPHILS RELATIVE PERCENT 76 % (BEAKER) (test code = 429) LYMPHOCYTES RELATIVE PERCENT 11 % (BEAKER) (test code = 430) MONOCYTES RELATIVE PERCENT 10 % (BEAKER) (test code = 431) EOSINOPHILS RELATIVE PERCENT 2 % (BEAKER) (test code = 432) BASOPHILS RELATIVE PERCENT 1 % (BEAKER) (test code = 437) NEUTROPHILS ABSOLUTE COUNT 4.50 K/ L 1.56-6.13 (BEAKER) (test code = 670) LYMPHOCYTES ABSOLUTE COUNT 0.66 K/ L 1.18-3.74 L (BEAKER) (test code = 414) MONOCYTES ABSOLUTE COUNT (BEAKER) 0.57 K/ L 0.24-0.36 H (test code = 415) EOSINOPHILS ABSOLUTE COUNT 0.10 K/ L 0.04-0.36 (BEAKER) (test code = 416) BASOPHILS ABSOLUTE COUNT (BEAKER) 0.03 K/ L 0.01-0.08 (test code = 417) IMMATURE GRANULOCYTES-RELATIVE 0.50 % 0.00-1.00 PERCENT (BEAKER) (test code = 2801) POCT-GLUCOSE [id number] 20:55:45 Test Item Value Reference Range Interpretation Comments POC-GLUCOSE METER 106 mg/dL 70-110 : TESTED A T [facility] 6720 (BEAKER) (test code = [facility], 153) [address]: Music Therapy Specialist/Techni grisel ID = [id number] for Chaka Valentin POCT-GLUCOSE [id number] 16:47:23 Test Item Value Reference Range Interpretation Comments POC-GLUCOSE METER 119 mg/dL 70-110 H : TESTED A T [facility] 6720 (BEAKER) (test code = [facility], 153) 37[address]: Music Therapy Specialist/Techni grisel ID = [id number] for Dana berg moiraarden POCT-GLUCOSE [id number] 13:36:09 Test Item Value Reference Range Interpretation Comments POC-GLUCOSE METER 69 mg/dL 70-110 L : TESTED A T [facility] 6720 (BEAKER) (test code = [facility] [place], 1538) [address]: Music Therapy Specialist/Techni grisel ID = [id number] for Nai Ladd POCT-GLUCOSE [id number] 09:22:14 Test Item Value Reference Range Interpretation Comments POC-GLUCOSE METER 98 mg/dL 70-110 : TESTED A T [facility] 6720 (BEAKER) (test code = [facility] Mcm[facility] [place], 1538) 44697: Music Therapy Specialist/Techni grisel ID = [id number] for Nai Ladd COMPREHENSIVE METABOLIC [id number] 06:13:54 Test Item Value Reference Range Interpretation Comments TOTAL PROTEIN 5.8 gm/dL 6.0-8.3 L (BEAKER) (test code = 770) ALBUMIN (BEAKER) 1.9 g/dL 3.5-5.0 L (test code = 1145) ALKALINE 567 U/L 40-150 H PHOSPHATASE (BEAKER) (test code = 346) BILIRUBIN TOTAL 2.0 mg/dL 0.2-1.2 H (BEAKER) (test code = 377) SODIUM (BEAKER) 132 meq/L 136-145 L (test code = 381) POTASSIUM (BEAKER) 3.4 meq/L 3.5-5.1 L (test code = 379) CHLORIDE (BEAKER) 101 meq/L 98-107 (test code = 382) CO2 (BEAKER) (test 23 meq/L 22-29 code = 355) BLOOD UREA 7 mg/dL 7-21 NITROGEN (BEAKER) (test code = 354) CREATININE 0.48 mg/dL 0.57-1.25 L (BEAKER) (test code = 358) GLUCOSE RANDOM 90 mg/dL 70-105 (BEAKER) (test code = 652) CALCIUM (BEAKER) 7.4 mg/dL 8.4-10.2 L (test code = 697) AST (SGOT) 27 U/L 5-34 (BEAKER) (test code = 353) ALT (SGPT) 9 U/L 6-55 (BEAKER) (test code = 347) EGFR (BEAKER) 113 Interpretatio n of eGFR (test code = [...] not appl icable for dialysis patien ts Music Therapy Specialist ID - [id number] 06:10:26 Test Item Value Reference Range Interpretation Comments MAGNESIUM (BEAKER) (test code = 1.4 mg/dL 1.6-2.6 L 627) Music Therapy Specialist ID - ADMINBLOOD [id number] 05:02:01 Test Item Value Reference Range Interpretation Comments CULTURE (BEAKER) (test No growth in 5 days code = 1095) BLOOD [id number] 05:02:01 Test Item Value Reference Range Interpretation Comments CULTURE (BEAKER) (test No growth in 5 days code = 1095) The specimen volume collected for this blood culture was below the optimum (10 mL per bottle or 20 mL total). Use of lower volumes may adversely affect recovery and/or detection times of some organisms.CBC W/PLT COUNT & AUTO [id number] 04:29:02 Test Item Value Reference Range Interpretation Comments WHITE BLOOD CELL COUNT (BEAKER) 5.9 K/ L 3.5-10.5 (test code = 775) RED BLOOD CELL COUNT (BEAKER) 2.71 M/ L 3.93-5.22 L (test code = 761) HEMOGLOBIN (BEAKER) (test code = 7.8 GM/DL 11.2-15.7 L 410) HEMATOCRIT (BEAKER) (test code = 24.7 % 34.1-44.9 L 411) MEAN CORPUSCULAR VOLUME (BEAKER) 91 fL 79-95 (test code = 753) MEAN CORPUSCULAR HEMOGLOBIN 28.8 pg 25.6-32.2 (BEAKER) (test code = 751) MEAN CORPUSCULAR HEMOGLOBIN CONC 31.6 GM/DL 32.2-35.5 L (BEAKER) (test code = 752) RED CELL DISTRIBUTION WIDTH 21.1 % 11.7-14.4 H (BEAKER) (test code = 412) PLATELET COUNT (BEAKER) (test code 69 K/CU MM 150-450 L = 756) MEAN PLATELET VOLUME (BEAKER) 11.2 fL 9.4-12.3 (test code = 754) NUCLEATED RED BLOOD CELLS (BEAKER) 0 /100 WBC 0-0 (test code = 413) NEUTROPHILS RELATIVE PERCENT 73 % (BEAKER) (test code = 429) LYMPHOCYTES RELATIVE PERCENT 13 % (BEAKER) (test code = 430) MONOCYTES RELATIVE PERCENT 11 % (BEAKER) (test code = 431) EOSINOPHILS RELATIVE PERCENT 2 % (BEAKER) (test code = 432) BASOPHILS RELATIVE PERCENT 0 % (BEAKER) (test code = 437) NEUTROPHILS ABSOLUTE COUNT 4.28 K/ L 1.56-6.13 (BEAKER) (test code = 670) LYMPHOCYTES ABSOLUTE COUNT 0.79 K/ L 1.18-3.74 L (BEAKER) (test code = 414) MONOCYTES ABSOLUTE COUNT (BEAKER) 0.67 K/ L 0.24-0.36 H (test code = 415) EOSINOPHILS ABSOLUTE COUNT 0.11 K/ L 0.04-0.36 (BEAKER) (test code = 416) BASOPHILS ABSOLUTE COUNT (BEAKER) 0.02 K/ L 0.01-0.08 (test code = 417) IMMATURE GRANULOCYTES-RELATIVE 0.30 % 0.00-1.00 PERCENT (BEAKER) (test code = 2801) POCT-GLUCOSE [id number] 21:09:43 Test Item Value Reference Range Interpretation Comments POC-GLUCOSE METER 119 mg/dL 70-110 H : TESTED A T [facility] 6720 (BEAKER) (test code = [facility], 1538) [address]: Music Therapy Specialist/Techni grisel ID = [id number] for Ve donn, May POCT-GLUCOSE [id number] 17:37:28 Test Item Value Reference Range Interpretation Comments POC-GLUCOSE METER 99 mg/dL 70-110 : TESTED A T [facility] 6720 (BEAKER) (test code = [facility], 1538) 55061: Music Therapy Specialist/Techni grisel ID = [id number] for Eduardo ez, Rita POCT-GLUCOSE [id number] 12:25:31 Test Item Value Reference Range Interpretation Comments POC-GLUCOSE METER 107 mg/dL 70-110 : TESTED A T [facility] 6720 (BEAKER) (test code = [place], 1538) [address]: Music Therapy Specialist/Techni grisel ID = [id number] for Rita Cheng COMPREHENSIVE METABOLIC [id number] 10:46:38 Test Item Value Reference Range Interpretation Comments TOTAL PROTEIN 6.1 gm/dL 6.0-8.3 (BEAKER) (test code = 770) ALBUMIN (BEAKER) 2.0 g/dL 3.5-5.0 L (test code = 1145) ALKALINE 577 U/L 40-150 H PHOSPHATASE (BEAKER) (test code = 346) BILIRUBIN TOTAL 2.2 mg/dL 0.2-1.2 H (BEAKER) (test code = 377) SODIUM (BEAKER) 133 meq/L 136-145 L (test code = 381) POTASSIUM (BEAKER) 3.5 meq/L 3.5-5.1 (test code = 379) CHLORIDE (BEAKER) 100 meq/L 98-107 (test code = 382) CO2 (BEAKER) (test 21 meq/L 22-29 L code = 355) BLOOD UREA 7 mg/dL 7-21 NITROGEN (BEAKER) (test code = 354) CREATININE 0.45 mg/dL 0.57-1.25 L (BEAKER) (test code = 358) GLUCOSE RANDOM 95 mg/dL 70-105 (BEAKER) (test code = 652) CALCIUM (BEAKER) 7.3 mg/dL 8.4-10.2 L (test code = 697) AST (SGOT) 32 U/L 5-34 (BEAKER) (test code = 353) ALT (SGPT) 8 U/L 6-55 (BEAKER) (test code = 347) EGFR (BEAKER) 115 Interpretatio n of eGFR (test code = [...] not appl icable for dialysis patien ts Music Therapy Specialist ID - [id number] 07:44:48 Test Item Value Reference Range Interpretation Comments MAGNESIUM (BEAKER) (test code = 1.0 mg/dL 1.6-2.6 LL 627) Music Therapy Specialist ID - ADMINCREATINE KINASE (CK)2023-05-08 07:35:38 Test Item Value Reference Range Interpretation Comments CREATINE KINASE TOTAL (BEAKER) (test 24 U/L 29-200 L code = 380) Music Therapy Specialist ID - ADMINPOCT-GLUCOSE [id number] 07:32:24 Test Item Value Reference Range Interpretation Comments POC-GLUCOSE METER 93 mg/dL 70-110 : TESTED A T [facility] 6720 (BEAKER) (test code = [place], 1538) 147[address]: Music Therapy Specialist/Techni grisel ID = [id number] for Eduardo ez, Rita CBC W/PLT COUNT & AUTO [id number] 05:50:31 Test Item Value Reference Range Interpretation Comments WHITE BLOOD CELL COUNT 7.3 K/ L 3.5-10.5 (BEAKER) (test code = 775) RED BLOOD CELL COUNT 2.95 M/ L 3.93-5.22 L (BEAKER) (test code = 761) HEMOGLOBIN (BEAKER) 8.5 GM/DL 11.2-15.7 L (test code = 410) HEMATOCRIT (BEAKER) 26.8 % 34.1-44.9 L (test code = 411) MEAN CORPUSCULAR VOLUME 91 fL 79-95 (BEAKER) (test code = 753) MEAN CORPUSCULAR 28.8 pg 25.6-32.2 HEMOGLOBIN (BEAKER) (test code = 751) MEAN CORPUSCULAR 31.7 GM/DL 32.2-35.5 L HEMOGLOBIN CONC (BEAKER) (test code = 752) RED CELL DISTRIBUTION 21.3 % 11.7-14.4 H WIDTH (BEAKER) (test code = 412) PLATELET COUNT (BEAKER) 67 K/CU MM 150-450 L (test code = 756) MEAN PLATELET VOLUME Unable to report due (BEAKER) (test code = to abn ormal Platelet 754) population distribution. NUCLEATED RED BLOOD 0 /100 WBC 0-0 CELLS (BEAKER) (test code = 413) NEUTROPHILS RELATIVE 78 % PERCENT (BEAKER) (test code = 429) LYMPHOCYTES RELATIVE 10 % PERCENT (BEAKER) (test code = 430) MONOCYTES RELATIVE 9 % PERCENT (BEAKER) (test code = 431) EOSINOPHILS RELATIVE 2 % PERCENT (BEAKER) (test code = 432) BASOPHILS RELATIVE 0 % PERCENT (BEAKER) (test code = 437) NEUTROPHILS ABSOLUTE 5.67 K/ L 1.56-6.13 COUNT (BEAKER) (test code = 670) LYMPHOCYTES ABSOLUTE 0.73 K/ L 1.18-3.74 L COUNT (BEAKER) (test code = 414) MONOCYTES ABSOLUTE 0.68 K/ L 0.24-0.36 H COUNT (BEAKER) (test code = 415) EOSINOPHILS ABSOLUTE 0.11 K/ L 0.04-0.36 COUNT (BEAKER) (test code = 416) BASOPHILS ABSOLUTE 0.03 K/ L 0.01-0.08 COUNT (BEAKER) (test code = 417) IMMATURE 0.70 % 0.00-1.00 GRANULOCYTES-RELATIVE PERCENT (BEAKER) (test code = 2801) CT brain without IV [id number] 00:23:53EXAM/TECHNIQUE: Noncontrast CT of the head. Dose modulation, iterativereconstruction, and/or weight based adjustment of the mA/kV was utilizedto reduce the radiation dose to as low as reasonably achievable. INDICATION: Fall. COMPARISON: None. FINDINGS: Packer-white differentiation is preserved. No acuteintracranialhemorrhage. No extra-axial fluid collection. Ventricles are normal in appearance. Basal cisterns are patent. Nomidline shift. Cerebellar tonsils are normal in appearance. Orbits are normal.Paranasal sinuses are clear. Mastoid air cells areclear. No acute osseous processes or suspicious osseous lesion. Midlinestructures are normal. Visualized face and neck are unremarkable.[facility] [id number] 00:23:53 [facility] : 1970 Sex: FEXAM/TECHNIQUE: Noncontrast CT of the head. Dose modulation, iterativereconstruction, and/or weight based adjustment of the mA/kV was utilizedto reduce the radiation dose to as low as reasonably achievable.INDICATION: Fall.COMPARISON: None.FINDINGS: Packer-white differentiation is preserved. No acute intracranialhemorrhage. No extra-axial fluid collection.Ventricles are normal in appearance. Basal cisterns are patent. Nomidline shift. Cerebellar tonsils are normal in appearance.Orbits are normal. Paranasal sinuses are clear. Mastoid air cells areclear. No acute osseous processes or suspicious osseous lesion. Midlinestructures are normal. Visualized face and neck are unremarkable.IMPRESSION:No acute intracranial process.Electronically Signed By: Abel Burton07/08/2022 00:25 CDTWorkstation Name: [id number] 13:41:20 Test Item Value Reference Range Interpretation Comments POC-GLUCOSE METER 93 mg/dL 70-110 : [facility] T [facility] ([employer]) (test code = [facility], 1538) 70872: Music Therapy Specialist/Techni grisel ID = [id number] for DEEPTHI Kumar MAXIMINO POCT-GLUCOSE [id number] 07:55:16 Test Item Value Reference Range Interpretation Comments POC-GLUCOSE METER 75 mg/dL 70-110 : TESTED A T [facility] 6720 ([employer]) (test code = [facility], 1538) 25966: Music Therapy Specialist/Techni grisel ID = [id number] for DEEPTHI Kumar MAXIMINO COMPREHENSIVE METABOLIC [id number] 05:49:37 Test Item Value Reference Range Interpretation Comments TOTAL PROTEIN 5.9 gm/dL 6.0-8.3 L (BEAKER) (test code = 770) ALBUMIN (BEAKER) 2.0 g/dL 3.5-5.0 L (test code = 1145) ALKALINE 540 U/L 40-150 H PHOSPHATASE (BEAKER) (test code = 346) BILIRUBIN TOTAL 2.1 mg/dL 0.2-1.2 H (BEAKER) (test code = 377) SODIUM (BEAKER) 131 meq/L 136-145 L (test code = 381) POTASSIUM (BEAKER) 3.5 meq/L 3.5-5.1 (test code = 379) CHLORIDE (BEAKER) 101 meq/L 98-107 (test code = 382) CO2 (BEAKER) (test 22 meq/L 22-29 code = 355) BLOOD UREA 9 mg/dL 7-21 NITROGEN (BEAKER) (test code = 354) CREATININE 0.44 mg/dL 0.57-1.25 L (BEAKER) (test code = 358) GLUCOSE RANDOM 88 mg/dL 70-105 (BEAKER) (test code = 652) CALCIUM (BEAKER) 7.4 mg/dL 8.4-10.2 L (test code = 697) AST (SGOT) 23 U/L 5-34 (BEAKER) (test code = 353) ALT (SGPT) 7 U/L 6-55 (BEAKER) (test code = 347) EGFR (BEAKER) 116 Interpretatio n of eGFR (test code = [...] not appl icable for dialysis patien ts Music Therapy Specialist ID - [id number] 05:44:48 Test Item Value Reference Range Interpretation Comments MAGNESIUM (BEAKER) (test code = 1.4 mg/dL 1.6-2.6 L 627) Music Therapy Specialist ID - ADMINCBC W/PLT COUNT & AUTO [id number] 04:22:20 Test Item Value Reference Range Interpretation Comments WHITE BLOOD CELL COUNT 6.7 K/ L 3.5-10.5 (BEAKER) (test code = 775) RED BLOOD CELL COUNT 2.82 M/ L 3.93-5.22 L (BEAKER) (test code = 761) HEMOGLOBIN (BEAKER) 8.0 GM/DL 11.2-15.7 L (test code = 410) HEMATOCRIT (BEAKER) 25.5 % 34.1-44.9 L (test code = 411) MEAN CORPUSCULAR VOLUME 90 fL 79-95 (BEAKER) (test code = 753) MEAN CORPUSCULAR 28.4 pg 25.6-32.2 HEMOGLOBIN (BEAKER) (test code = 751) MEAN CORPUSCULAR 31.4 GM/DL 32.2-35.5 L HEMOGLOBIN CONC (BEAKER) (test code = 752) RED CELL DISTRIBUTION 21.6 % 11.7-14.4 H WIDTH (BEAKER) (test code = 412) PLATELET COUNT (BEAKER) 57 K/CU MM 150-450 L (test code = 756) MEAN PLATELET VOLUME Unable to report due (BEAKER) (test code = to abn ormal Platelet 754) population distribution. NUCLEATED RED BLOOD 0 /100 WBC 0-0 CELLS (BEAKER) (test code = 413) NEUTROPHILS RELATIVE 72 % PERCENT (BEAKER) (test code = 429) LYMPHOCYTES RELATIVE 14 % PERCENT (BEAKER) (test code = 430) MONOCYTES RELATIVE 11 % PERCENT (BEAKER) (test code = 431) EOSINOPHILS RELATIVE 3 % PERCENT (BEAKER) (test code = 432) BASOPHILS RELATIVE 0 % PERCENT (BEAKER) (test code = 437) NEUTROPHILS ABSOLUTE 4.77 K/ L 1.56-6.13 COUNT (BEAKER) (test code = 670) LYMPHOCYTES ABSOLUTE 0.92 K/ L 1.18-3.74 L COUNT (BEAKER) (test code = 414) MONOCYTES ABSOLUTE 0.73 K/ L 0.24-0.36 H COUNT (BEAKER) (test code = 415) EOSINOPHILS ABSOLUTE 0.19 K/ L 0.04-0.36 COUNT (BEAKER) (test code = 416) BASOPHILS ABSOLUTE 0.02 K/ L 0.01-0.08 COUNT (BEAKER) (test code = 417) IMMATURE 0.30 % 0.00-1.00 GRANULOCYTES-RELATIVE PERCENT ([facility]) (test code = 2801) POCT-GLUCOSE [id number] 21:24:49 Test Item Value Reference Range Interpretation Comments POC-GLUCOSE METER 110 mg/dL 70-110 : TESTED A T [facility] 6720 ([place]) (test code = [facility], 1538) 83312: Music Therapy Specialist/Techni grisel ID = [id number] for LOULOU GRANT POCT-GLUCOSE [id number] 16:56:33 Test Item Value Reference Range Interpretation Comments POC-GLUCOSE METER 100 mg/dL 70-110 : TESTED A T [facility] 6720 ([facility]) (test code = [facility], 1538) [id number]: Music Therapy Specialist/Techni grisel ID = [id number] for [place] TESSA XAVIER POCT-GLUCOSE [id number] 13:41:30 Test Item Value Reference Range Interpretation Comments POC-GLUCOSE METER 85 mg/dL 70-110 : TESTED A T [facility] 6720 ([facility]) (test code = [facility], 1538) 28698: Music Therapy Specialist/Techni grisel ID = [id number] for WILL TESSA PEDRAZA WOUND CULTURE + GRAM [id number] 09:14:17 Test Item Value Reference Interpretation Comments Range CULTURE ([facility]) VANCOMYCIN A 4+ Vancomyc in (test code = 1095) RESISTANT resistant ENTEROCOCCUS Enterococcus fa ecium FAECIUM Ampicillin (test See_Comment R [Automated message] code = 26) The system [employer] generated this result transmit manoj reference range : Susceptible 0-8 , Resistant <0 or >8 . The reference r rizwana was not used to interpret this result as normal/abnormal . Daptomycin (test See_Comment [Automated message] code = 59) The system [employer] generated this result transmit manoj reference range : Susceptible >4- 4 , Dose Dependent Susceptible <=4 or >4 , Re. The reference range was not used to interpret this result as normal/abnormal . Linezolid (test See_Comment S [Automated message] code = 40) The system [employer] generated this result transmit manoj reference range : Susceptible 0-2 , Resistant <0 or >2 . The reference r rizwana was not used to interpret this result as normal/abnormal . Vancomycin (test See_Comment R [Automated message] code = 13) The system [employer] generated this result transmit manoj reference range : Susceptible 0-4 , Resistant <0 or >4 . The reference r rizwana was not used to interpret this result as normal/abnormal . CULTURE (BEAKER) VANCOMYCIN A 3+ Vancomyc in (test code = 1095) RESISTANT resistant ENTEROCOCCUS Enterococcus FAECIUM faeciumof a sec ond type Ampicillin (test R code = 26) Linezolid (test S code = 40) Vancomycin (test R code = 13) Daptomycin (test See_Comment [Automated message] code = 592) The system [employer] generated this result transmit manoj reference range : Susceptible >4- 4 , Dose Dependent Susceptible <=4 or >4 , Re. The reference range was not used to interpret this result as normal/abnormal . CULTURE (BEAKER) JERROD ALBICANS A <1+ Can dida albicans (test code = 1095) 5-Flurocytosine See_Comment S [Automated message] (test code = 237) The system which generated this result transmit manoj reference range : Susceptible 0-4 , Intermediate <0 or >4 , Resistant >16 . The reference r rizwana was not used to interpret this result as normal/abnormal . Amphotericin B See_Comment [Automated m essage] (test code = 136) The system which generated this result transmit manoj reference range : Susceptible >0- 0 , No Interpretati ons Established <=0 or >0 . The refere nce range was not u sed to interpret th is result as normal/abnormal . Caspofungin See_Comment S [Automated mes oralia] acetate (test code The syste m which = 141) generated this result transmit manoj reference range : Susceptible 0-0 .25 , Non-susceptible <0 or >.25 , Resis tant . The reference range was not u sed to interpret th is result as normal/abnormal . Fluconazole (test See_Comment S [Automate d message] code = 143) The system [employer] generated this result transmit manoj reference range : Susceptible 0-2 , Dose Dependent Susceptible <0 or >2 , Resi. The reference range was not used to interpret this result as normal/abnormal . Itraconazole (test See_Comment S [Automat ed message] code = 146) The system [employer] generated this result transmit manoj reference range : Susceptible 0-0 .125 , Dose Dependen t Susceptible <0 or >.125. The refe rence range was not u sed to interpret th is result as normal/abnormal . Micafungin (test See_Comment S [Automated message] code = 148) The system [employer] generated this result transmit manoj reference range : Susceptible 0-0 .25 , Non-susceptible <0 or >.25 , Resis tant . The reference range was not u sed to interpret th is result as normal/abnormal . Posaconazole (test See_Comment [Automat ed message] code = 152) The system [employer] generated this result transmit manoj reference range : Susceptible >0- 0 , No Interpretati ons Established <=0 or >0 . The refere nce range was not u sed to interpret th is result as normal/abnormal . Voriconazole (test See_Comment S [Automat ed message] code = 153) The system [employer] generated this result transmit manoj reference range : Susceptible 0-0 .12 , Dose Dependent Susceptible <0 or >.12 ,. The reference range was not used to interpret this result as normal/abnormal . GRAM STAIN RESULT No WBC's Seen (BEAKER) (test code = 1123) GRAM STAIN RESULT 1+ gram positive (BEAKER) (test cocci in chains code = 419489) and pairs POCT-GLUCOSE [id number] 07:46:49 Test Item Value Reference Range Interpretation Comments POC-GLUCOSE METER 98 mg/dL 70-110 : TESTED A T [facility] 6720 (BEAKER) (test code = [facility], 1538) [address]: Music Therapy Specialist/Techni grisel ID = [id number] for [facility] COMPREHENSIVE METABOLIC [id number] 05:19:57 Test Item Value Reference Range Interpretation Comments TOTAL PROTEIN 6.2 gm/dL 6.0-8.3 Specimen sligh tly (BEAKER) (test hemolyzed code = 770) ALBUMIN (BEAKER) 2.0 g/dL 3.5-5.0 L Specimen sl ightly (test code = 1145) hemolyzed ALKALINE 618 U/L 40-150 H PHOSPHATASE (BEAKER) (test code = 346) BILIRUBIN TOTAL 2.3 mg/dL 0.2-1.2 H Specimen sli ghtly (BEAKER) (test hemolyzed code = 377) SODIUM (BEAKER) 131 meq/L 136-145 L (test code = 381) POTASSIUM (BEAKER) 3.9 meq/L 3.5-5.1 Specimen slightly (test code = 379) hemolyzed CHLORIDE (BEAKER) 101 meq/L 98-107 (test code = 382) CO2 (BEAKER) (test 20 meq/L 22-29 L code = 355) BLOOD UREA 9 mg/dL 7-21 NITROGEN (BEAKER) (test code = 354) CREATININE 0.45 mg/dL 0.57-1.25 L Specimen slight ly (BEAKER) (test hemolyzed code = 358) GLUCOSE RANDOM 90 mg/dL 70-105 (BEAKER) (test code = 652) CALCIUM (BEAKER) 7.3 mg/dL 8.4-10.2 L (test code = 697) AST (SGOT) 35 U/L 5-34 H Specimen slight ly (BEAKER) (test hemolyzed code = 353) ALT (SGPT) 8 U/L 6-55 Specimen slight ly (BEAKER) (test hemolyzed code = 347) EGFR (BEAKER) 115 Interpretatio n of eGFR (test code = [...] not appl icable for dialysis patien ts Music Therapy Specialist ID - ADMINCREATINE KINASE (CK)2023-05-06 05:16:23 Test Item Value Reference Range Interpretation Comments CREATINE KINASE TOTAL (BEAKER) (test 33 U/L 29-200 code = 380) Music Therapy Specialist ID - ADMINCBC W/PLT COUNT & AUTO [id number] 04:13:54 Test Item Value Reference Range Interpretation Comments WHITE BLOOD CELL COUNT 8.8 K/ L 3.5-10.5 (BEAKER) (test code = 775) RED BLOOD CELL COUNT 2.94 M/ L 3.93-5.22 L (BEAKER) (test code = 761) HEMOGLOBIN (BEAKER) 8.6 GM/DL 11.2-15.7 L (test code = 410) HEMATOCRIT (BEAKER) 27.1 % 34.1-44.9 L (test code = 411) MEAN CORPUSCULAR VOLUME 92 fL 79-95 (BEAKER) (test code = 753) MEAN CORPUSCULAR 29.3 pg 25.6-32.2 HEMOGLOBIN (BEAKER) (test code = 751) MEAN CORPUSCULAR 31.7 GM/DL 32.2-35.5 L HEMOGLOBIN CONC (BEAKER) (test code = 752) RED CELL DISTRIBUTION 22.1 % 11.7-14.4 H WIDTH (BEAKER) (test code = 412) PLATELET COUNT (BEAKER) 54 K/CU MM 150-450 L (test code = 756) MEAN PLATELET VOLUME Unable to report due (BEAKER) (test code = to abn ormal Platelet 754) population distribution. NUCLEATED RED BLOOD 0 /100 WBC 0-0 CELLS (BEAKER) (test code = 413) NEUTROPHILS RELATIVE 78 % PERCENT (BEAKER) (test code = 429) LYMPHOCYTES RELATIVE 10 % PERCENT (BEAKER) (test code = 430) MONOCYTES RELATIVE 10 % PERCENT (BEAKER) (test code = 431) EOSINOPHILS RELATIVE 2 % PERCENT (BEAKER) (test code = 432) BASOPHILS RELATIVE 0 % PERCENT (BEAKER) (test code = 437) NEUTROPHILS ABSOLUTE 6.80 K/ L 1.56-6.13 H COUNT (BEAKER) (test code = 670) LYMPHOCYTES ABSOLUTE 0.90 K/ L 1.18-3.74 L COUNT (BEAKER) (test code = 414) MONOCYTES ABSOLUTE 0.84 K/ L 0.24-0.36 H COUNT (BEAKER) (test code = 415) EOSINOPHILS ABSOLUTE 0.15 K/ L 0.04-0.36 COUNT (BEAKER) (test code = 416) BASOPHILS ABSOLUTE 0.03 K/ L 0.01-0.08 COUNT (BEAKER) (test code = 417) IMMATURE 0.50 % 0.00-1.00 GRANULOCYTES-RELATIVE PERCENT (BEAKER) (test code = 2804) POCT-GLUCOSE [id number] 21:58:58 Test Item Value Reference Range Interpretation Comments POC-GLUCOSE METER 97 mg/dL 70-110 : TESTED A T [facility] 6720 (BEAKER) (test code = [facility], 1538) [address]: Music Therapy Specialist/Techni grisel ID = [id number] for PERCY SMILEY POCT-GLUCOSE [id number] 17:35:16 Test Item Value Reference Range Interpretation Comments POC-GLUCOSE METER 101 mg/dL 70-110 : TESTED A T [facility] 6720 (BEAKER) (test code = [facility], 1538) [address]: Music Therapy Specialist/Techni grisel ID = [id number] for Kurtis Garcia POCT-GLUCOSE [id number] 12:39:44 Test Item Value Reference Range Interpretation Comments POC-GLUCOSE METER 133 mg/dL 70-110 H : TESTED A T [facility] 6720 (BEAKER) (test code = [facility], [facility]8) [address]: Music Therapy Specialist/Techni grisel ID = [id number] for Kurtis Garcia POCT-GLUCOSE [id number] 08:59:20 Test Item Value Reference Range Interpretation Comments POC-GLUCOSE METER 100 mg/dL 70-110 : TESTED A T [facility] 6720 (BEAKER) (test code = [facility], [facility]8) [address]: Music Therapy Specialist/Techni grisel ID = [id number] for Kurtis Garcia COMPREHENSIVE METABOLIC [id number] 03:03:40 Test Item Value Reference Range Interpretation Comments TOTAL PROTEIN 6.3 gm/dL 6.0-8.3 (BEAKER) (test code = 770) ALBUMIN (BEAKER) 2.0 g/dL 3.5-5.0 L (test code = 1145) ALKALINE 676 U/L 40-150 H PHOSPHATASE (BEAKER) (test code = 346) BILIRUBIN TOTAL 2.6 mg/dL 0.2-1.2 H (BEAKER) (test code = 377) SODIUM (BEAKER) 133 meq/L 136-145 L (test code = 381) POTASSIUM (BEAKER) 3.5 meq/L 3.5-5.1 (test code = 379) CHLORIDE (BEAKER) 103 meq/L 98-107 (test code = 382) CO2 (BEAKER) (test 20 meq/L 22-29 L code = 355) BLOOD UREA 5 mg/dL 7-21 L NITROGEN (BEAKER) (test code = 354) CREATININE 0.49 mg/dL 0.57-1.25 L (BEAKER) (test code = 358) GLUCOSE RANDOM 106 mg/dL 70-105 H (BEAKER) (test code = 652) CALCIUM (BEAKER) 7.4 mg/dL 8.4-10.2 L (test code = 697) AST (SGOT) 23 U/L 5-34 (BEAKER) (test code = 353) ALT (SGPT) < U/L 6-55 L (BEAKER) (test code = 347) EGFR (BEAKER) 113 Interpretatio n of eGFR (test code = [...] not appl icable for dialysis patien ts Music Therapy Specialist ID - ADMINSpecimen slightly ictericCBC W/PLT COUNT & AUTO [id number] 02:59:58 Test Item Value Reference Range Interpretation Comments WHITE BLOOD CELL COUNT 6.8 K/ L 3.5-10.5 (BEAKER) (test code = 775) RED BLOOD CELL COUNT 3.29 M/ L 3.93-5.22 L (BEAKER) (test code = 761) HEMOGLOBIN (BEAKER) 9.5 GM/DL 11.2-15.7 L (test code = 410) HEMATOCRIT (BEAKER) 29.8 % 34.1-44.9 L (test code = 411) MEAN CORPUSCULAR VOLUME 91 fL 79-95 (BEAKER) (test code = 753) MEAN CORPUSCULAR 28.9 pg 25.6-32.2 HEMOGLOBIN (BEAKER) (test code = 751) MEAN CORPUSCULAR 31.9 GM/DL 32.2-35.5 L HEMOGLOBIN CONC (BEAKER) (test code = 752) RED CELL DISTRIBUTION 22.9 % 11.7-14.4 H WIDTH (BEAKER) (test code = 412) PLATELET COUNT (BEAKER) 52 K/CU MM 150-450 L (test code = 756) MEAN PLATELET VOLUME Unable to report due (BEAKER) (test code = to abn ormal Platelet 754) population distribution. NUCLEATED RED BLOOD 0 /100 WBC 0-0 CELLS (BEAKER) (test code = 413) NEUTROPHILS RELATIVE 71 % PERCENT (BEAKER) (test code = 429) LYMPHOCYTES RELATIVE 16 % PERCENT (BEAKER) (test code = 430) MONOCYTES RELATIVE 10 % PERCENT (BEAKER) (test code = 431) EOSINOPHILS RELATIVE 2 % PERCENT (BEAKER) (test code = 432) BASOPHILS RELATIVE 0 % PERCENT (BEAKER) (test code = 437) NEUTROPHILS ABSOLUTE 4.82 K/ L 1.56-6.13 COUNT (BEAKER) (test code = 670) LYMPHOCYTES ABSOLUTE 1.08 K/ L 1.18-3.74 L COUNT (BEAKER) (test code = 414) MONOCYTES ABSOLUTE 0.66 K/ L 0.24-0.36 H COUNT (BEAKER) (test code = 415) EOSINOPHILS ABSOLUTE 0.14 K/ L 0.04-0.36 COUNT (BEAKER) (test code = 416) BASOPHILS ABSOLUTE 0.02 K/ L 0.01-0.08 COUNT (BEAKER) (test code = 417) IMMATURE 0.40 % 0.00-1.00 GRANULOCYTES-RELATIVE PERCENT (BEAKER) (test code = 2801) POCT-GLUCOSE [id number] 20:51:11 Test Item Value Reference Range Interpretation Comments POC-GLUCOSE METER 102 mg/dL 70-110 : TESTED A T [facility] 6720 (BEAKER) (test code = [facility], 1538) [address]: Music Therapy Specialist/Techni grisel ID = [id number] for Lata Paula POCT-GLUCOSE [id number] 18:01:37 Test Item Value Reference Range Interpretation Comments POC-GLUCOSE METER 84 mg/dL 70-110 : TESTED A T [facility] 6720 (BEAKER) (test code = [facility], 1538) [address]: Music Therapy Specialist/Techni grisel ID = [id number] for Kurtis Izquierdo BLOOD [id number] 14:00:58 Test Item Value Reference Range Interpretation Comments CULTURE (BEAKER) (test No growth in 5 days code = 1095) POCT-GLUCOSE [id number] 11:14:51 Test Item Value Reference Range Interpretation Comments POC-GLUCOSE METER 91 mg/dL 70-110 : TESTED A T [facility] 6720 (BEAKER) (test code = [facility], 1538) [address]: Music Therapy Specialist/Techni grisel ID = [id number] for Lata Luu BLOOD [id number] 11:00:40 Test Item Value Reference Range Interpretation Comments CULTURE (BEAKER) (test No growth in 5 days code = 1095) The specimen volume collected for this blood culture was below the optimum (10 mL per bottle or 20 mL total). Use of lower volumes may adversely affect recovery and/or detection times of some organisms.BLOOD [id number] 09:45:14 Test Item Value Reference Range Interpretation Comments CULTURE (BEAKER) VANCOMYCIN A From Aerobi c And (test code = RESISTANT Anaerobic Bottl es 1095) ENTEROCOCCUS Vancomycin FAECIUM resistant Enterococcus faecium Ampicillin (test R code = 26) Linezolid (test S code = 40) Vancomycin (test R code = 13) Daptomycin (test See_Comment [Automated code = 59) message] The system which generated this result transmit manoj reference range : Susceptible >4- 4 , Dose Dependent Susceptible <=4 or >4 , Re. The reference range was not used to interpret this result as normal/abnormal . GRAM STAIN RESULT From aerobic and (BEAKER) (test anaerobic bottles: code = 1123) gram positive cocci in pairs POCT-GLUCOSE [id number] 08:57:29 Test Item Value Reference Range Interpretation Comments POC-GLUCOSE METER 86 mg/dL 70-110 : TESTED A T [facility] 6720 (BEAKER) (test code = [facility] Mcmullen [facility], 1538) [address]: Music Therapy Specialist/Techni grisel ID = [id number] for Lata Luu CBC W/PLT COUNT & AUTO [id number] 06:12:43 Test Item Value Reference Range Interpretation Comments WHITE BLOOD CELL COUNT 7.6 K/ L 3.5-10.5 (BEAKER) (test code = 775) RED BLOOD CELL COUNT 3.19 M/ L 3.93-5.22 L (BEAKER) (test code = 761) HEMOGLOBIN (BEAKER) 8.9 GM/DL 11.2-15.7 L (test code = 410) HEMATOCRIT (BEAKER) 28.1 % 34.1-44.9 L (test code = 411) MEAN CORPUSCULAR VOLUME 88 fL 79-95 (BEAKER) (test code = 753) MEAN CORPUSCULAR 27.9 pg 25.6-32.2 HEMOGLOBIN (BEAKER) (test code = 751) MEAN CORPUSCULAR 31.7 GM/DL 32.2-35.5 L HEMOGLOBIN CONC (BEAKER) (test code = 752) RED CELL DISTRIBUTION 23.1 % 11.7-14.4 H WIDTH (BEAKER) (test code = 412) PLATELET COUNT (BEAKER) 45 K/CU MM 150-450 L (test code = 756) MEAN PLATELET VOLUME Unable to report due (BEAKER) (test code = to abn ormal Platelet 754) population distribution. NUCLEATED RED BLOOD 0 /100 WBC 0-0 CELLS (BEAKER) (test code = 413) NEUTROPHILS RELATIVE 72 % PERCENT (BEAKER) (test code = 429) LYMPHOCYTES RELATIVE 12 % PERCENT (BEAKER) (test code = 430) MONOCYTES RELATIVE 12 % PERCENT (BEAKER) (test code = 431) EOSINOPHILS RELATIVE 2 % PERCENT (BEAKER) (test code = 432) BASOPHILS RELATIVE 0 % PERCENT (BEAKER) (test code = 437) NEUTROPHILS ABSOLUTE 5.50 K/ L 1.56-6.13 COUNT (BEAKER) (test code = 670) LYMPHOCYTES ABSOLUTE 0.94 K/ L 1.18-3.74 L COUNT (BEAKER) (test code = 414) MONOCYTES ABSOLUTE 0.91 K/ L 0.24-0.36 H COUNT (BEAKER) (test code = 415) EOSINOPHILS ABSOLUTE 0.17 K/ L 0.04-0.36 COUNT (BEAKER) (test code = 416) BASOPHILS ABSOLUTE 0.02 K/ L 0.01-0.08 COUNT (BEAKER) (test code = 417) IMMATURE 0.80 % 0.00-1.00 GRANULOCYTES-RELATIVE PERCENT (BEAKER) (test code = 2801) COMPREHENSIVE METABOLIC [id number] 04:57:38 Test Item Value Reference Range Interpretation Comments TOTAL PROTEIN 6.5 gm/dL 6.0-8.3 Specimen sligh tly (BEAKER) (test hemolyzed code = 770) ALBUMIN (BEAKER) 2.1 g/dL 3.5-5.0 L Specimen sl ightly (test code = 1145) hemolyzed ALKALINE 685 U/L 40-150 H PHOSPHATASE (BEAKER) (test code = 346) BILIRUBIN TOTAL 2.5 mg/dL 0.2-1.2 H Specimen sli ghtly (BEAKER) (test hemolyzed code = 377) SODIUM (BEAKER) 131 meq/L 136-145 L (test code = 381) POTASSIUM (BEAKER) 4.3 meq/L 3.5-5.1 Specimen slightly (test code = 379) hemolyzed CHLORIDE (BEAKER) 102 meq/L 98-107 (test code = 382) CO2 (BEAKER) (test 19 meq/L 22-29 L code = 355) BLOOD UREA 5 mg/dL 7-21 L NITROGEN (BEAKER) (test code = 354) CREATININE 0.50 mg/dL 0.57-1.25 L Specimen slight ly (BEAKER) (test hemolyzed code = 358) GLUCOSE RANDOM 81 mg/dL 70-105 (BEAKER) (test code = 652) CALCIUM (BEAKER) 7.5 mg/dL 8.4-10.2 L (test code = 697) AST (SGOT) 31 U/L 5-34 Specimen slight ly (BEAKER) (test hemolyzed code = 353) ALT (SGPT) 8 U/L 6-55 Specimen slight ly (BEAKER) (test hemolyzed code = 347) EGFR (BEAKER) 112 Interpretatio n of eGFR (test code = [...] not appl icable for dialysis patien ts Music Therapy Specialist ID - [id number] 04:56:40 Test Item Value Reference Range Interpretation Comments MAGNESIUM (BEAKER) 1.7 mg/dL 1.6-2.6 Specimen slightly (test code = 627) hemolyzed Music Therapy Specialist ID - [id number] 04:56:40 Test Item Value Reference Range Interpretation Comments PHOSPHORUS (BEAKER) 2.8 mg/dL 2.3-4.7 Specimen slightly (test code = 604) hemolyzed Music Therapy Specialist ID - emUS drainage with cath [id number] 21:27:07PROCEDURE: Drainage catheter placement Procedural PersonnelAttending physician(s): Trent Garcia Pre-procedure diagnosis: Intrahepatic collectionPost-procedure diagnosis: SameIndication: Fever associated with fluid collectionAdditional clinical history: None Complications: No immediate complications.[facility] [id number] 21:27:07 [facility] 1970 Sex: FPROCEDURE: Drainage catheter placementProcedural PersonnelAttending physician(s): Trent GarciaPre-procedure diagnosis: Intrahepatic collectionPost-procedure diagnosis: SameIndication: Fever associated with fluid collectionAdditional clinical history: NoneComplications: No immediate complications.IMPRESS ION:Percutaneous placement of a 10 [place] drainage catheter intointrahepatic collection, yielding 50mL of brown fluid.Plan: Drain to MARLENE bulb PROCEDURE SUMMARY:- Visceral drainage catheter placement under ultrasound guidance- Additional procedure(s): NonePROCEDURE DETAILS:Pre- procedureConsent: Informed consent for the procedure including risks, benefitsand alternatives was obtained and time-out was performed prior to theprocedure.Preparation: The site was prepared and draped using maximal sterilebarrier technique including cutaneous antisepsis.Anesthesia/sedationLevel of anesthesia/sedation: Moderate sedation (conscious sedation)A nesthesia/sedation administered by: Independent trained observer underattending supervision with continuous monitoring of the patient?s levelof consciousness and physiologic statusTotal intra-service sedation time (minutes): 30Drainage catheter placementThe patient was positioned supine. Initial imaging was performed. Localanesthesia was administered. The fluid collection was accessed using anaccess needle followed by wire insertion and serial dilation and adrainage catheter was placed. Position of the drainage catheter withinthe fluid collection was confirmed. - Initial imaging findings: Complex intrahepatic collection- Drainage catheter placed: Multipurpose drainage catheter- External catheter securement: Non-absorbable suture- Post-drainage imaging findings: Partial drainage of the fluidcollectionAdditional DetailsAdditional description of procedure: NoneEquipment details: NoneSpecimens removed: Aspirated fluid was sent for analysis.Estimated blood loss (mL): Less than 5Electronically SignedBy: Trent Garcia05/03/2023 21:29 CDTWorkstation Name: [id number] METER 2023-05-03 20:45:46 Test Item Value Reference Range Interpretation Comments POC-GLUCOSE METER 88 mg/dL 70-110 : [facility] ([employer]) (test code = [facility], 1538) [address]: Music Therapy Specialist/Techni grisel ID = [id number] for Lata Luu POCT-GLUCOSE [id number] 20:12:24 Test Item Value Reference Range Interpretation Comments POC-GLUCOSE METER 80 mg/dL 70-110 : TESTED A T [facility] 6720 (BEAKER) (test [facility] = [facility] [address]: Music Therapy Specialist/Techni grisel ID = [id number] for Vamsi Walters POCT-GLUCOSE [id number] 11:28:10 Test Item Value Reference Range Interpretation Comments POC-GLUCOSE METER 91 mg/dL 70-110 : TESTED A T [facility] 6720 (BEAKER) (test code = [facility] [place], 1538) [address]: Music Therapy Specialist/Techni grisel ID = [id number] for Vamsi Walters COMPREHENSIVE METABOLIC [id number] 06:47:14 Test Item Value Reference Range Interpretation Comments TOTAL PROTEIN 5.4 gm/dL 6.0-8.3 L (BEAKER) (test code = 770) ALBUMIN (BEAKER) 1.8 g/dL 3.5-5.0 L (test code = 1145) ALKALINE 477 U/L 40-150 H PHOSPHATASE (BEAKER) (test code = 346) BILIRUBIN TOTAL 2.1 mg/dL 0.2-1.2 H (BEAKER) (test code = 377) SODIUM (BEAKER) 133 meq/L 136-145 L (test code = 381) POTASSIUM (BEAKER) 3.7 meq/L 3.5-5.1 (test code = 379) CHLORIDE (BEAKER) 102 meq/L 98-107 (test code = 382) CO2 (BEAKER) (test 24 meq/L 22-29 code = 355) BLOOD UREA 5 mg/dL 7-21 L NITROGEN (BEAKER) (test code = 354) CREATININE 0.45 mg/dL 0.57-1.25 L (BEAKER) (test code = 358) GLUCOSE RANDOM 80 mg/dL 70-105 (BEAKER) (test code = 652) CALCIUM (BEAKER) 6.9 mg/dL 8.4-10.2 L (test code = 697) AST (SGOT) 21 U/L 5-34 (BEAKER) (test code = 353) ALT (SGPT) 7 U/L 6-55 (BEAKER) (test code = 347) EGFR (BEAKER) 115 Interpretatio n of eGFR (test code = [...] not appl icable for dialysis patien ts Music Therapy Specialist ID - PERCY [id number] 06:43:27 Test Item Value Reference Range Interpretation Comments MAGNESIUM (BEAKER) (test code = 1.5 mg/dL 1.6-2.6 L 627) Music Therapy Specialist ID - PERCY [id number] 06:43:27 Test Item Value Reference Range Interpretation Comments PHOSPHORUS (BEAKER) (test code = 2.2 mg/dL 2.3-4.7 L 604) Music Therapy Specialist ID Darian GREER WCBC W/PLT COUNT & AUTO [id number] 05:59:23 Test Item Value Reference Range Interpretation Comments WHITE BLOOD CELL COUNT 6.2 K/ L 3.5-10.5 (BEAKER) (test code = 775) RED BLOOD CELL COUNT 3.04 M/ L 3.93-5.22 L (BEAKER) (test code = 761) HEMOGLOBIN (BEAKER) 8.4 GM/DL 11.2-15.7 L (test code = 410) HEMATOCRIT (BEAKER) 26.4 % 34.1-44.9 L (test code = 411) MEAN CORPUSCULAR VOLUME 87 fL 79-95 (BEAKER) (test code = 753) MEAN CORPUSCULAR 27.6 pg 25.6-32.2 HEMOGLOBIN (BEAKER) (test code = 751) MEAN CORPUSCULAR 31.8 GM/DL 32.2-35.5 L HEMOGLOBIN CONC (BEAKER) (test code = 752) RED CELL DISTRIBUTION 23.9 % 11.7-14.4 H WIDTH (BEAKER) (test code = 412) PLATELET COUNT (BEAKER) 38 K/CU MM 150-450 L (test code = 756) MEAN PLATELET VOLUME Unable to report due (BEAKER) (test code = to abn ormal Platelet 754) population distribution. NUCLEATED RED BLOOD 0 /100 WBC 0-0 CELLS (BEAKER) (test code = 413) NEUTROPHILS RELATIVE 66 % PERCENT (BEAKER) (test code = 429) LYMPHOCYTES RELATIVE 18 % PERCENT (BEAKER) (test code = 430) MONOCYTES RELATIVE 12 % PERCENT (BEAKER) (test code = 431) EOSINOPHILS RELATIVE 3 % PERCENT (BEAKER) (test code = 432) BASOPHILS RELATIVE 0 % PERCENT (BEAKER) (test code = 437) NEUTROPHILS ABSOLUTE 4.08 K/ L 1.56-6.13 COUNT (BEAKER) (test code = 670) LYMPHOCYTES ABSOLUTE 1.12 K/ L 1.18-3.74 L COUNT (BEAKER) (test code = 414) MONOCYTES ABSOLUTE 0.75 K/ L 0.24-0.36 H COUNT (BEAKER) (test code = 415) EOSINOPHILS ABSOLUTE 0.19 K/ L 0.04-0.36 COUNT (BEAKER) (test code = 416) BASOPHILS ABSOLUTE 0.02 K/ L 0.01-0.08 COUNT (BEAKER) (test code = 417) IMMATURE 0.60 % 0.00-1.00 GRANULOCYTES-RELATIVE PERCENT (BEAKER) (test code = 2801) Prepare Leuko-Red [id number] 23:55:00 Test Item Value Reference Range Interpretation Comments CROSSMATCH (test code = 2264) COMPATIBLE Unit ABO (test code = B Pos [id number]) UNIT NUMBER (test code = [id number] 934-0) Status (test code = 8008885) TX_TIMEINCHART Blood Bank Product (test code RED BLOOD CELLS = 2263) PRODUCT CODE (test code = T6300U37 933-2) [facility] CenterPrepare Leuko-Red [id number] 23:55:00 Test Item Value Reference Range Interpretation Comments CROSSMATCH (test code = 2264) COMPATIBLE Unit ABO (test code = B Pos [id number]) UNIT NUMBER (test code = [id number] 934-0) Status (test code = 9151881) TX_TIMEINCHART Blood Bank Product (test code RED BLOOD CELLS = 2263) PRODUCT CODE (test code = E5106X91 933-2) [facility] CenterPOCT-GLUCOSE [id number] 21:30:53 Test Item Value Reference Range Interpretation Comments POC-GLUCOSE METER 91 mg/dL 70-110 : TESTED A T [facility] (BEAKER) (test code = [facility] [place], 1538) [address]: Music Therapy Specialist/Techni grisel ID = [id number] for ANNIE FUENTES POCT-GLUCOSE [id number] 18:08:47 Test Item Value Reference Range Interpretation Comments POC-GLUCOSE METER 114 mg/dL 70-110 H : TESTED A T [facility] (ROBYN) (test code = KENYA Mcmullen [facility], 1538) [id number]: Music Therapy Specialist/Techni grisel ID = [id number] for Frannie Rojo XR abdomen / KUB 1 view [id number] 11:34:28EXAMINATION: XR ABDOMEN/KUB 1 VIEW PORTABLE. INDICATION: 53-year-old female with abdominal pain and d istention. COMPARISON: CT abdomen and pelvis dated 04/29/2023. FINDINGS:Gas is scattered throughout the bowel. No dilated loops of bowel. Noevidence of pneumatosis or portal venous gas. No pathologiccalcifications. A bare metal stent is noted in the CBD. No acute osseousabnormality. Three percutaneous d rainage catheters overlie the liver.[facility]KUB 1 VIEW [id number] 11:34:28 [facility] 1970 Sex: FEXAMINATION: XR ABDOMEN/KUB 1 VIEW PORTABLE.INDICATION: 53-year-old female with abdominal pain and distention.COMPARISON: CT abdomen and pelvis dated 04/29/2023.FINDINGS:Gas is scattered throughout the bowel. No dilated loops of bowel. Noevidence of pneumatosis or portal venous gas. No pathologiccalcifications. A bare metal stent is noted in the CBD. No acute osseousabnormality. Three percutaneous drainage catheters overlie the liver.IMPRESSION:1. Normal bowel gas pattern without evidence of obstruction or ileus. 2. Three percutaneous drainage catheters overlie the liver.Electronically Signed By: Narinder Sheikh05/02/2023 11:36 CDTWorkstation Name: [id number] 10:43:57 Test Item Value Reference Range Interpretation Comments POC-GLUCOSE METER 85 mg/dL 70-110 : TESTED A T [facility] 6720 (BEAKER) (test code = [place], 1538) [address]: Music Therapy Specialist/Techni grisel ID = [id number] for Meagan hunter, Mini COMPREHENSIVE METABOLIC [id number] 06:26:25 Test Item Value Reference Range Interpretation Comments TOTAL PROTEIN 5.5 gm/dL 6.0-8.3 L (BEAKER) (test code = 770) ALBUMIN (BEAKER) 1.8 g/dL 3.5-5.0 L (test code = 1145) ALKALINE 462 U/L 40-150 H PHOSPHATASE (BEAKER) (test code = 346) BILIRUBIN TOTAL 2.1 mg/dL 0.2-1.2 H (BEAKER) (test code = 377) SODIUM (BEAKER) 135 meq/L 136-145 L (test code = 381) POTASSIUM (BEAKER) 3.2 meq/L 3.5-5.1 L (test code = 379) CHLORIDE (BEAKER) 102 meq/L 98-107 (test code = 382) CO2 (BEAKER) (test 24 meq/L 22-29 code = 355) BLOOD UREA 6 mg/dL 7-21 L NITROGEN (BEAKER) (test code = 354) CREATININE 0.48 mg/dL 0.57-1.25 L (BEAKER) (test code = 358) GLUCOSE RANDOM 76 mg/dL 70-105 (BEAKER) (test code = 652) CALCIUM (BEAKER) 6.7 mg/dL 8.4-10.2 L (test code = 697) AST (SGOT) 25 U/L 5-34 (BEAKER) (test code = 353) ALT (SGPT) 7 U/L 6-55 (BEAKER) (test code = 347) EGFR (BEAKER) 113 Interpretatio n of eGFR (test code = [...] not appl icable for dialysis patien ts Music Therapy Specialist ID - MARCOCBC W/PLT COUNT & AUTO [id number] 06:16:58 Test Item Value Reference Range Interpretation Comments WHITE BLOOD CELL COUNT 5.9 K/ L 3.5-10.5 (BEAKER) (test code = 775) RED BLOOD CELL COUNT 2.95 M/ L 3.93-5.22 L (BEAKER) (test code = 761) HEMOGLOBIN (BEAKER) 8.4 GM/DL 11.2-15.7 L (test code = 410) HEMATOCRIT (BEAKER) 25.7 % 34.1-44.9 L (test code = 411) MEAN CORPUSCULAR VOLUME 87 fL 79-95 (BEAKER) (test code = 753) MEAN CORPUSCULAR 28.5 pg 25.6-32.2 HEMOGLOBIN (BEAKER) (test code = 751) MEAN CORPUSCULAR 32.7 GM/DL 32.2-35.5 HEMOGLOBIN CONC (BEAKER) (test code = 752) RED CELL DISTRIBUTION 24.0 % 11.7-14.4 H WIDTH (BEAKER) (test code = 412) PLATELET COUNT (BEAKER) 37 K/CU MM 150-450 L (test code = 756) MEAN PLATELET VOLUME Unable to report due (BEAKER) (test code = to abn ormal Platelet 754) population distribution. NUCLEATED RED BLOOD 0 /100 WBC 0-0 CELLS (BEAKER) (test code = 413) NEUTROPHILS RELATIVE 72 % PERCENT (BEAKER) (test code = 429) LYMPHOCYTES RELATIVE 15 % PERCENT (BEAKER) (test code = 430) MONOCYTES RELATIVE 9 % PERCENT (BEAKER) (test code = 431) EOSINOPHILS RELATIVE 2 % PERCENT (BEAKER) (test code = 432) BASOPHILS RELATIVE 0 % PERCENT (BEAKER) (test code = 437) NEUTROPHILS ABSOLUTE 4.26 K/ L 1.56-6.13 COUNT (BEAKER) (test code = 670) LYMPHOCYTES ABSOLUTE 0.88 K/ L 1.18-3.74 L COUNT (BEAKER) (test code = 414) MONOCYTES ABSOLUTE 0.55 K/ L 0.24-0.36 H COUNT (BEAKER) (test code = 415) EOSINOPHILS ABSOLUTE 0.14 K/ L 0.04-0.36 COUNT (BEAKER) (test code = 416) BASOPHILS ABSOLUTE 0.01 K/ L 0.01-0.08 COUNT (BEAKER) (test code = 417) IMMATURE 1.00 % 0.00-1.00 GRANULOCYTES-RELATIVE PERCENT (BEAKER) (test code = 2801) POCT-GLUCOSE [id number] 21:48:06 Test Item Value Reference Range Interpretation Comments POC-GLUCOSE METER 93 mg/dL 70-110 : TESTED A T [facility] 6720 (BEAKER) (test code = [facility], 1538) [address]: Music Therapy Specialist/Techni grisel ID = [id number] for Kurtis Izquierdo POCT-GLUCOSE [id number] 17:08:48 Test Item Value Reference Range Interpretation Comments POC-GLUCOSE METER 98 mg/dL 70-110 : TESTED A T [facility] 6720 (BEAKER) (test code = [facility], 1538) [address]: Music Therapy Specialist/Techni grisel ID = [id number] for Kurtis Izquierdo CREATINE KINASE (CK)2023-05-01 16:15:52 Test Item Value Reference Range Interpretation Comments CREATINE KINASE TOTAL (BEAKER) (test 27 U/L 29-200 L code = 380) Music Therapy Specialist ID - ANSLEY BHEMOGLOBIN AND [id number] 16:01:49 Test Item Value Reference Range Interpretation Comments HEMOGLOBIN (BEAKER) (test code = 8.1 GM/DL 11.2-15.7 L 410) HEMATOCRIT (BEAKER) (test code = 25.4 % 34.1-44.9 L 411) Music Therapy Specialist ID - [id number]-GLUCOSE [id number] 12:19:58 Test Item Value Reference Range Interpretation Comments POC-GLUCOSE METER 100 mg/dL 70-110 : TESTED A T [facility] 6720 (BEAKER) (test code = [place], 1538) [address]: Music Therapy Specialist/Techni grisel ID = [id number] for Kurtis Garcia BLOOD CULTURE IDENTIFICATION [id number] 10:53:42 Test Item Value Reference Range Interpretation Comments MCR-1 (BEAKER) (test Non Applicable Not detected code = 2587569156) CTX-M (BEAKER) (test Non Applicable Not detected code = 0549636722) IMP ([place]) (test code = Non Applicable Not Detected 4323230108) KPC (BKR) (test code = Non Applicable Not detected 3461946182) NDM (BKR) (test code = Non Applicable Not Detected 0351780926) OXA-48-LIKE (BKR) Non Applicable Not Detected (test code = 2819964874) VIM (BKR) (test code = Non Applicable Not detected 6049946435) MEC A/C ([place]) (test Non Applicable Not detected code = 8872975631) MEC A/C AND MREJ Non Applicable Not Detected (MRSA) [place] (test code = 6482907862) VAN A/B (VANCOMYCIN Detected Not detected A Vancomyc in RESISTANCE) (test code resis tance has = 9224107827) been detected ENTEROCOCCUS FAECALIS Not detected Not detected (BKR) (test code = 9791008108) ENTEROCOCCUS FAECIUM Detected Not detected A Vancomy raza (BKR) (test code = Resistant 7582857501) Enterococcus faecium (VRE).First emani e therapy: Daptomycin or Linezolid.ID consultation required for Daptomycin. LISTERIA MONOCYTOGENES Not detected Not detected (test code = 20160323) STAPHYLOCOCCUS (test Not detected Not detected code = 9663848) STAPHYLOCOCCUS AUREUS Not detected Not detected (test code = 20160527) STAPHYLOCOCCUS Not detected Not detected EPIDERMIDIS ([place]) (test code = 4996693246) STAPHYLOCOCCUS Not detected Not detected LUGDENENSIS (BKR) (test code = 6313310764) STREPTOCOCCUS (test Not detected Not detected code = 7556254) STREPTOCOCCUS Not detected Not detected AGALACTIAE (GROUP B) (test code = 5840481) STREPTOCOCCUS Not detected Not detected PNEUMONIAE (test code = 6985993) STREPTOCOCCUS PYOGENES Not detected Not detected (GROUP A) (test code = 2742794) ACINETOBACTER Not detected Not detected CALCOACETICUS-BAUMANNI I COMPLEX (BKR) (test code = 7712) BACTEROIDES FRAGILIS Not detected Not detected ([place]) (test code = 3965270952) ENTEROBACTERALES (test Not detected Not detected code = 4596834041) ENTEROBACTER CLOACOE Not detected Not detected COMPLEX (test code = 7698006) ESCHERICHIA COLI (test Not detected Not detected code = 1232080) KLEBSIELLA AEROGENES Not detected Not detected (BKR) (test code = 0939486420) KLEBSIELLA OXYTOCA Not detected Not detected (test code = 9938381) KLEBSIELLA PNEUMONIAE Not detected Not detected GROUP (test code = 9741789606) PROTEUS (test code = Not detected Not detected 6163960) SALMONELLA SPECIES Not detected Not detected ([place]) (test code = 9372775560) SERRATIA MARCESCENS Not detected Not detected (test code = 6872901) HAEMOPHILUS INFLUENZAE Not detected Not detected (test code = 4055313) NEISSERIA MENINGITIDIS Not detected Not detected (test code = 7546170) PSEUDOMONAS Not detected Not detected AERUGINOSA-BEAKER (test code = 6911072) STENOTROPHOMONAS Not detected Not detected MALTOPHILIA (BKR) (test code = 3351341530) JERROD ALBICANS (test Not detected Not detected code = 0426125) JERROD AURIS ([place]) Not detected Not detected (test code = 1978170220) JERROD GLABRATA (test Not detected Not detected code = 9844297) JERROD KRUSEI (test Not detected Not detected code = 1520259) JERROD PARAPSILOSIS Not detected Not detected (test code = 6779673) JERROD TROPICALIS Not detected Not detected (BKR) (test code = 6984373) CRYPTOCOCCUS Not detected Not detected NEOFORMANS/GATTII (test code = 6704956174) Other bacteria and resistance markers not targeted by this PCR panel cannot be excluded; therefore clinical correlation and follow up of serology, culture results, and other molecular studies is required. The results are not intended to be used as the sole means for clinical diagnosis or patient management decisions. This sample was tested at the [facility] using the [employer] Blood Culture ID Panel. It is FDA cleared and has been verified and approved by the [facility] for clinical use. This laboratory is CLIA-certified and College ofAmerican Pathologists (CAP)-accredited to perform high complexity testing.POCT-GLUCOSE [id number] 08:00:46 Test Item Value Reference Range Interpretation Comments POC-GLUCOSE METER 110 mg/dL 70-110 : TESTED A T [facility] 6720 (BEAKER) (test code = [place], 1538) [address]: Music Therapy Specialist/Techni grisel ID = [id number] for Kurtis Garcia COMPREHENSIVE METABOLIC [id number] 06:01:37 Test Item Value Reference Range Interpretation Comments TOTAL PROTEIN 5.2 gm/dL 6.0-8.3 L (BEAKER) (test code = 770) ALBUMIN (BEAKER) 1.7 g/dL 3.5-5.0 L (test code = 1145) ALKALINE 499 U/L 40-150 H PHOSPHATASE (BEAKER) (test code = 346) BILIRUBIN TOTAL 1.9 mg/dL 0.2-1.2 H (BEAKER) (test code = 377) SODIUM (BEAKER) 135 meq/L 136-145 L (test code = 381) POTASSIUM (BEAKER) 3.3 meq/L 3.5-5.1 L (test code = 379) CHLORIDE (BEAKER) 102 meq/L 98-107 (test code = 382) CO2 (BEAKER) (test 24 meq/L 22-29 code = 355) BLOOD UREA 9 mg/dL 7-21 NITROGEN (BEAKER) (test code = 354) CREATININE 0.54 mg/dL 0.57-1.25 L (BEAKER) (test code = 358) GLUCOSE RANDOM 88 mg/dL 70-105 (BEAKER) (test code = 652) CALCIUM (BEAKER) 6.5 mg/dL 8.4-10.2 L (test code = 697) AST (SGOT) 24 U/L 5-34 (BEAKER) (test code = 353) ALT (SGPT) < U/L 6-55 L (BEAKER) (test code = 347) EGFR (BEAKER) 110 Interpretatio n of eGFR (test code = [...] not appl icable for dialysis patien ts Music Therapy Specialist ID - [id number] 05:58:38 Test Item Value Reference Range Interpretation Comments MAGNESIUM (BEAKER) (test code = 1.3 mg/dL 1.6-2.6 L 627) Music Therapy Specialist ID - NOLICBC W/PLT COUNT & AUTO [id number] 05:27:15 Test Item Value Reference Range Interpretation Comments WHITE BLOOD CELL COUNT 3.5 K/ L 3.5-10.5 (BEAKER) (test code = 775) RED BLOOD CELL COUNT 2.33 M/ L 3.93-5.22 L (BEAKER) (test code = 761) HEMOGLOBIN (BEAKER) 6.6 GM/DL 11.2-15.7 L (test code = 410) HEMATOCRIT (BEAKER) 20.8 % 34.1-44.9 L (test code = 411) MEAN CORPUSCULAR VOLUME 89 fL 79-95 (BEAKER) (test code = 753) MEAN CORPUSCULAR 28.3 pg 25.6-32.2 HEMOGLOBIN (BEAKER) (test code = 751) MEAN CORPUSCULAR 31.7 GM/DL 32.2-35.5 L HEMOGLOBIN CONC (BEAKER) (test code = 752) RED CELL DISTRIBUTION 25.9 % 11.7-14.4 H WIDTH (BEAKER) (test code = 412) PLATELET COUNT (BEAKER) 33 K/CU MM 150-450 L (test code = 756) MEAN PLATELET VOLUME Unable to report due (BEAKER) (test code = to abn ormal Platelet 754) population distribution. NUCLEATED RED BLOOD 0 /100 WBC 0-0 CELLS (BEAKER) (test code = 413) NEUTROPHILS RELATIVE 67 % PERCENT (BEAKER) (test code = 429) LYMPHOCYTES RELATIVE 18 % PERCENT (BEAKER) (test code = 430) MONOCYTES RELATIVE 12 % PERCENT (BEAKER) (test code = 431) EOSINOPHILS RELATIVE 3 % PERCENT (BEAKER) (test code = 432) BASOPHILS RELATIVE 0 % PERCENT (BEAKER) (test code = 437) NEUTROPHILS ABSOLUTE 2.33 K/ L 1.56-6.13 COUNT (BEAKER) (test code = 670) LYMPHOCYTES ABSOLUTE 0.62 K/ L 1.18-3.74 L COUNT (BEAKER) (test code = 414) MONOCYTES ABSOLUTE 0.43 K/ L 0.24-0.36 H COUNT (BEAKER) (test code = 415) EOSINOPHILS ABSOLUTE 0.09 K/ L 0.04-0.36 COUNT (BEAKER) (test code = 416) BASOPHILS ABSOLUTE 0.01 K/ L 0.01-0.08 COUNT (BEAKER) (test code = 417) IMMATURE 0.60 % 0.00-1.00 GRANULOCYTES-RELATIVE PERCENT (BEAKER) (test code = 2801) POCT-GLUCOSE [id number] 01:03:43 Test Item Value Reference Range Interpretation Comments POC-GLUCOSE METER 102 mg/dL 70-110 : TESTED A T [facility] 6720 (BEAKER) (test code = [facility], 153) [address]: Music Therapy Specialist/Techni grisel ID = [id number] for Adelina Almodovar POCT-GLUCOSE [id number] 18:04:25 Test Item Value Reference Range Interpretation Comments POC-GLUCOSE METER 69 mg/dL 70-110 L : TESTED A T [facility] 6720 (BEAKER) (test code = [facility], 1538) [address]: Music Therapy Specialist/Techni grisel ID = [id number] for Kurtis Izquierdo POCT-GLUCOSE [id number] 12:27:41 Test Item Value Reference Range Interpretation Comments POC-GLUCOSE METER 95 mg/dL 70-110 : TESTED A T [facility] 6720 (BEAKER) (test code = [facility], 1538) [address]: Music Therapy Specialist/Techni grisel ID = [id number] for Kurtis Izquierdo ECG 12 [id number] 10:01:08Ventricular Rate 80 BPMAtrial Rate 80 BPMP-R Interval 138 msQRS Duration 82 msQ-T Interval 414 msQTCCalculation([place]) 477 msP [place] 28 degreesR [place] -8 degreesT [place] 14 degrees Normal sinus rhythmCannot rule out Anterior infarct (cited on or before 29-APR-2023)Abnormal ECGWhen compared with ECG of 05-APR-2023 19:47,No significant change was foundConfirmed by Sidney Vasquez ([id number]) on 04/30/2023 10:[facility] [id number] 10:01:08Ventricular Rate 80 BPMAtrial Rate 80 BPMP-R Interval 138 msQRS Duration 82 msQ-T Interval 414 msQTCCalculation([place]ett) 477 msP [place] 28 degreesR [place] -8 degreesT [place] 14 degrees Normal sinus rhythmCannot rule out Anterior infarct (cited on or before 29-APR-2023)Abnormal ECGWhen compared with ECG of 05-APR-2023 19:47,No significant change was foundConfirmed by Sidney Vasquez ([id number]) on 04/30/2023 10:01:05 [facility] [id number] 09:13:57 Test Item Value Reference Range Interpretation Comments POC-GLUCOSE METER 101 mg/dL 70-110 : TESTED A T [facility] 6720 (BEAKER) (test code = [place], 1538) [address]: Music Therapy Specialist/Techni grisel ID = [id number] for davidKurtis wyatt BASIC METABOLIC [id number] 04:36:11 Test Item Value Reference Range Interpretation Comments SODIUM (BEAKER) 134 meq/L 136-145 L (test code = 381) POTASSIUM 3.9 meq/L 3.5-5.1 Specimen slight ly (BEAKER) (test hemolyzed code = 379) CHLORIDE (BEAKER) 100 meq/L 98-107 (test code = 382) CO2 (BEAKER) 23 meq/L 22-29 (test code = 355) BLOOD UREA 9 mg/dL 7-21 NITROGEN (BEAKER) (test code = 354) CREATININE 0.73 mg/dL 0.57-1.25 Specimen slight ly (BEAKER) (test hemolyzed code = 358) GLUCOSE RANDOM 111 mg/dL 70-105 H (BEAKER) (test code = 652) CALCIUM (BEAKER) 6.7 mg/dL 8.4-10.2 L (test code = 697) EGFR (BEAKER) 98 Interpretatio n of eGFR (test code = [...] not appl icable for dialysis patien ts Music Therapy Specialist ID - MARCOSpecimen slightly ictericHEPATIC FUNCTION [id number] 04:36:10 Test Item Value Reference Range Interpretation Comments TOTAL PROTEIN (BEAKER) 6.2 gm/dL 6.0-8.3 Speci men slightly (test code = 770) hemolyzed ALBUMIN (BEAKER) (test 1.8 g/dL 3.5-5.0 L Speci men slightly code = 1145) hemolyzed BILIRUBIN TOTAL 2.4 mg/dL 0.2-1.2 H Specimen sli ghtly (BEAKER) (test code = hemoly zed 377) BILIRUBIN DIRECT 1.6 mg/dL 0.1-0.5 H Specimen sl ightly (BEAKER) (test code = hemoly zed 706) ALKALINE PHOSPHATASE 578 U/L 40-150 H (BEAKER) (test code = 346) AST (SGOT) (BEAKER) 35 U/L 5-34 H Specimen slightly (test code = 353) hemolyzed ALT (SGPT) (BEAKER) 6 U/L 6-55 Specimen slightly (test code = 347) hemolyzed Music Therapy Specialist ID - MARCOSpecimen slightly [id number] 04:35:45 Test Item Value Reference Range Interpretation Comments PHOSPHORUS (BEAKER) 2.9 mg/dL 2.3-4.7 Specimen slightly (test code = 604) hemolyzed Music Therapy Specialist ID - [id number] 04:35:44 Test Item Value Reference Range Interpretation Comments MAGNESIUM (BEAKER) 1.3 mg/dL 1.6-2.6 L Specimen slightly (test code = 627) hemolyzed Music Therapy Specialist ID - MARCOCBC (HEMOGRAM ONLY)2023-04-30 04:22:12 Test Item Value Reference Range Interpretation Comments WHITE BLOOD CELL COUNT (BEAKER) 5.7 K/ L 3.5-10.5 (test code = 775) RED BLOOD CELL COUNT (BEAKER) 2.57 M/ L 3.93-5.22 L (test code = 761) HEMOGLOBIN (BEAKER) (test code = 7.4 GM/DL 11.2-15.7 L 410) HEMATOCRIT (BEAKER) (test code = 22.9 % 34.1-44.9 L 411) MEAN CORPUSCULAR VOLUME (BEAKER) 89 fL 79-95 (test code = 753) MEAN CORPUSCULAR HEMOGLOBIN 28.8 pg 25.6-32.2 (BEAKER) (test code = 751) MEAN CORPUSCULAR HEMOGLOBIN CONC 32.3 GM/DL 32.2-35.5 (BEAKER) (test code = 752) RED CELL DISTRIBUTION WIDTH 25.7 % 11.7-14.4 H (BEAKER) (test code = 412) PLATELET COUNT (BEAKER) (test code 40 K/CU MM 150-450 L = 756) NUCLEATED RED BLOOD CELLS (BEAKER) 0 /100 WBC 0-0 (test code = 413) PROTHROMBIN [id number] 04:17:57 Test Item Value Reference Range Interpretation Comments PROTIME (BEAKER) (test code = 19.3 seconds 11.9-14.2 H 759) INR (BEAKER) (test code = 370) 1.65 <=5.90 RECOMMENDED COUMADIN/WARFARIN INR THERAPY RANGESSTANDARD DOSE: 2.0 - 3.0 Includes: PROPHYLAXIS for venous thrombosis, systemic embolization; TREATMENT for venous thrombosis and/or pulmonary embolus.HIGH RISK: Target INR is 2.5-3.5 for patients with mechanical heart valves.POCT-GLUCOSE [id number] 21:54:43 Test Item Value Reference Range Interpretation Comments POC-GLUCOSE METER 112 mg/dL 70-110 H : TESTED A T [facility] 6720 (BEAKER) (test code = [facility] [employer] [facility], 1538) [address]: Music Therapy Specialist/Techni grisel ID = [id number] for Adelina Almodovar POCT-GLUCOSE [id number] 19:09:28 Test Item Value Reference Range Interpretation Comments POC-GLUCOSE METER 62 mg/dL 70-110 L : TESTED A T [facility] 6720 (BEAKER) (test code = [facility] [employer] [facility], 1538) [address]: Music Therapy Specialist/Techni grisel ID = [id number] for Jina on (Contract)Nate HEMOGLOBIN AND [id number] 17:55:12 Test Item Value Reference Range Interpretation Comments HEMOGLOBIN (BEAKER) (test code = 7.0 GM/DL 11.2-15.7 L 410) HEMATOCRIT (BEAKER) (test code = 22.5 % 34.1-44.9 L 411) Music Therapy Specialist ID - [id number]-CoV2/Influenza/RSV RT-PCR (Symptomatic ONLY)2023-04-29 14:58:08 Test Item Value Reference Interpretation Comments Range SARS-COV2/RT-PCR Negative Negative The SARS-Co V-2 (test code = target nucleic 58272-0) acids are not detected in thi s specimen. Negat karol results do not preclude SARS-C oV-2 infection and should not be u sed as the sole bas is for patient management decisions. Nega tive results must be combined with clinical observations, patient history , and epidemiolog ical information. A false negative result may occu r if a specimen is improperly collected, transported or handled. This S ARS CoV-2 test is a rapid, real-arnulfo e RT-PCR test intended for e qualitative detection of nucleic acid fr om SARS-CoV-2 in a nasopharyngeal swab specimen colle manoj from individual s suspected of COVID-19 by the ir healthcare provider. Influenza A RT-PCR Negative Negative The Flu A target (test code = [place] [address]-4) not detected in this specimen. Influenza B RT-PCR Negative Negative The Flu B target (test code = [place] [address]-0) not detected in this specimen. RSV by RT-PCR (test Negative Negative The RSV target code = 17680-9) nucleic acid s are not detected in this specimen. SOPHIA (test code = The presence of SOPHIA) SARS-CoV-2/FLU/RSV viral nucleic acids cannot rule out co-infections or disease caused by other viral or bacterial pathogens. As with any molecular test, mutations within the target regions of the Xpert Xpress SARS-CoV-2/Flu/RSV test could affect primer and/or probe binding resulting in failure to detect the presence of virus or the virus being detected less predictably. False negative results may occur if the virus is present at levels below the analytical limit of detection in this specimen. This Xpert Xpress SARS-CoV-2/Flu/RSV test is a rapid, real-time RT-PCR test intended for the qualitative detection of nucleic acid from Xpert Xpress SARS-CoV-2/Flu/RSV in a nasopharyngeal swab specimen collected from individuals suspected of Xpert Xpress SARS-CoV-2/Flu/RSV by their healthcare provider. Results from [facility] Xpert Xpress SARS-CoV-2/Flu/RSV test should be correlated with the clinical history, epidemiological data, and other data available to the clinician evaluating the patient. Viral nucleic acid may persist in vivo, independent of virus viability. Detection of analyte target(s) does not imply that the corresponding virus(es) are infectious or are the causative agents for clinical symptoms. This test has not been Food and Drug Administration (FDA) cleared or approved and has been authorized by FDA under an Emergency Use Authorization (EUA). This EUA will be effective until the declaration that circumstances exist justifying the authorization of the emergency use of in vitro diagnostic tests for detection and/or diagnosis of COVID-19 is terminated under Section 564(b)(2) of the Act or the EUA is revoked under Section 564(g) of the Act. Fact Sheet for Healthcare Providers:https://w [employer]/Docu ments/Xpert%20Xpres s%20SARS%20CoV-2/Fa ct%20Sheets/302-390 2%05MCSK-JWI-8%20HE ALTHCARE%20PROVIDER S%20FACT%20SHEET.pd f Fact Sheet for Healthcare Patients:https://[employer]/Docum ents/Xpert%20Xpress %20SARS%20Cov-2/Fac t%20Sheets/302-3801 %39BOEZ-ZUF-8%20PAT IENT%20FACT%20SHEET .pdf Lab Interpretation Normal (test code = 16216-7) [facility] (Symptomatic ONLY) 2023-04-29 14:58:08 Test Item Value Reference Interpretation Comments Range SARS-COV2/RT-PCR Negative Negative The SARS-Co V-2 (test code = target nucleic 00586-5) acids are not detected in thi s specimen. Negat karol results do not preclude SARS-C oV-2 infection and should not be u sed as the sole bas is for patient management decisions. Nega tive results must be combined with clinical observations, patient history , and epidemiolog ical information. A false negative result may occu r if a specimen is improperly collected, transported or handled. This S ARS CoV-2 test is a rapid, real-arnulfo e RT-PCR test intended for th e qualitative detection of nucleic acid fr om SARS-CoV-2 in a nasopharyngeal swab specimen collec manoj from individual s suspected of COVID-19 by the ir healthcare provider. Influenza A RT-PCR Negative Negative The Flu A target (test code = [place] [address]-5) not detected in this specimen. Influenza B RT-PCR Negative Negative The Flu B target (test code = [place] [address]5421-4) not detected in this specimen. RSV by RT-PCR (test Negative Negative The RSV target code = 03868-6) nucleic acid s are not detected in this specimen. SOPHIA (test code = The presence of SOPHIA) SARS-CoV-2/FLU/RSV viral nucleic acids cannot rule out co-infections or disease caused by other viral or bacterial pathogens. As with any molecular test, mutations within the target regions of the Xpert Xpress SARS-CoV-2/Flu/RSV test could affect primer and/or probe binding resulting in failure to detect the presence of virus or the virus being detected less predictably. False negative results may occur if the virus is present at levels below the analytical limit of detection in this specimen. This Xpert Xpress SARS-CoV-2/Flu/RSV test is a rapid, real-time RT-PCR test intended for the qualitative detection of nucleic acid from Xpert Xpress SARS-CoV-2/Flu/RSV in a nasopharyngeal swab specimen collected from individuals suspected of Xpert Xpress SARS-CoV-2/Flu/RSV by their healthcare provider. Results from [facility] Xpert Xpress SARS-CoV-2/Flu/RSV test should be correlated with the clinical history, epidemiological data, and other data available to the clinician evaluating the patient. Viral nucleic acid may persist in vivo, independent of virus viability. Detection of analyte target(s) does not imply that the corresponding virus(es) are infectious or are the causative agents for clinical symptoms. This test has not been Food and Drug Administration (FDA) cleared or approved and has been authorized by FDA under an Emergency Use Authorization (EUA). This EUA will be effective until the declaration that circumstances exist justifying the authorization of the emergency use of in vitro diagnostic tests for detection and/or diagnosis of COVID-19 is terminated under Section 564(b)(2) of the Act or the EUA is revoked under Section 564(g) of the Act. Fact Sheet for Healthcare Providers:https://w [employer]/Docu ments/Xpert%20Xpres s%20SARS%20CoV-2/Fa ct%20Sheets/302-390 2%20UYOL-VXZ-7%20HE ALTHCARE%20PROVIDER S%20FACT%20SHEET.pd f Fact Sheet for Healthcare Patients:https://[employer]/Docum ents/Xpert%20Xpress %20SARS%20Cov-2/Fac t%20Sheets/302-3801 %19KBRD-KGJ-9%20PAT IENT%20FACT%20SHEET .pdf Lab Interpretation Normal (test code = 05784-8) [facility]V [id number] 14:58:08 Test Item Value Reference Range Interpretation Comments SARS-COV2/RT-PCR Negative Negative The SARS-Co V-2 target (test code = nucleic acids a re not 5969599) detected in thi s specimen. Negat karol results do not preclude SARS-CoV-2 infe ction and should not be u sed as the sole basis for patient management deci sions. Negative result s must be combined with c linical observations, p atient history, and epidemiological information. A false negative result may occur if a specimen i s improperly elaine ected, transported or handled. This SARS CoV-2 test is a rapid, real-arnulfo e RT-PCR test intended f or the qualitative det ection of nucleic acid fr om SARS-CoV-2 in a nasopharyngeal swab specimen collec manoj from individuals thalia pected of COVID-19 by the [facility] ide. INFLUENZA A RT-PCR Negative Negative The Flu A target nucleic (test code = acids are not d etected in 19100725) this specimen. INFLUENZA B RT-PCR Negative Negative The Flu B target nucleic (test code = acids are not d etected in 19100726) this specimen. RSV RT-PCR (test Negative Negative The RSV tar get nucleic code = 0439492) acids are no t detected in this specimen. The presence of SARS-CoV-2/FLU/RSV viral nucleic acids cannot rule out co- infections or disease caused by other viral or bacterial pathogens. As with any molecular test, mutations within the target regions of the Xpert Xpress SARS-CoV-2/Flu/RSV test could affect primer and/or probe binding resulting in failure to detect the presence of virus or the virus being detected less predictably. False negative results may occur if the virus is present at levels below the analytical limit of detection in thisspecimen.This Xpert Xpress SARS-CoV-2/Flu/RSV test is a rapid, real-time RT-PCR test intended for the qualitative detection of nucleic acid from Xpert Xpress SARS-CoV-2/Flu/RSV in a nasopharyngeal swabspecimen collected from individuals suspected of Xpert Xpress SARS-CoV-2/Flu/RSV by their healthcareprovider. Results from jeremiah Xpert Xpress SARS-CoV-2/Flu/RSV test should be correlated with the clinical history, epidemiological data, and other data available to the clinician evaluating the patient. Viral nucleic acid may persist in vivo, independent of virus viability. Detection of analyte target(s)does not imply that the corresponding virus(es) are infectious or are the causative agents for clinical symptoms.This test has not been Food and Drug Administration (FDA) cleared or approved and has been authorized by FDA under an Emergency Use Authorization (EUA). This EUA will be effective until thedeclaration that circumstances exist justifying the authorization of the emergency use of in vitro diagnostic tests for detection and/or diagnosis of COVID-19 is terminated under Section 564(b)(2) of the Act or the EUA is revoked under Section 564(g) of the Act.Fact Sheet for Healthcare Providers:https ://www.[employer]/Documents/Xpert%20Xpress%20SARS%20CoV-2/Fact%20Sheets/302-390 2%39WIFD-CSC-4%20HEALTHCARE%20PROVIDERS%20FACT%20SHEET.pdfFact Sheet for Healthcare Patients:https://www.[employer]/Docum ents/Xpert%20Xpress%20SARS%20Cov-2/Fact%20Sheets/302-3801%98IQZF-HNQ-0%20PATIENT %20FACT%20SHEET.pdfUrinalysis w/Microscopic + Reflex to [id number] 14:05:05 Test Item Value Reference Range Interpretation Comments Color, UA (test code Yellow = 5778-6) Clarity, UA (test Clear code = 5767-9) Specific [place], UA 1.001-1.035 H (test code = 5811-5) pH, UA (test code = 7.0 5.0-8.0 5803-2) Protein, UA (test 30 mg/dL Negative A code = 18506-3) Glucose, UA (test Negative Negative code = 365) Ketones, UA (test 20 mg/dL Negative A code = 2514-8) Bilirubin, UA (test Negative Negative code = 29073-8) Blood, UA (test code Negative Negative = 19704-1) Nitrite, UA (test Negative Negative code = 5802-4) Leukocytes, UA (test Trace Negative A code = 5799-2) Urobilinogen, UA 0.2 0.2-1.0 (test code = 76265-5) RBC, UA (test code = 4 See_Comment [Autom ated 96168-1) message] The system which generated this result transmit manoj reference range : /HPF. The reference range was not used to interpret this result as normal/abnormal . WBC, UA (test code = 4 See_Comment [Autom ated 5821-4) message] The system which generated this result transmit manoj reference range : /HPF. The reference range was not used to interpret this result as normal/abnormal . Squam Epithel, UA 3 See_Comment [Automate d (test code = 06237-0) messag e] The system which generated this result transmit manoj reference range : /HPF. The reference range was not used to interpret this result as normal/abnormal . Specimen Source (test code = 2795) SOPHIA (test code = SOPHIA) Music Therapy Specialist ID - [auto]Music Therapy Specialist ID - tech Lab Interpretation Abnormal (test code = 75635-4) [facility] + Reflex to Culture 2023-04-29 14:05:05 Test Item Value Reference Range Interpretation Comments Color, UA (test code Yellow = 5778-6) Clarity, UA (test Clear code = 5767-9) Specific [place], UA 1.001-1.035 H (test code = 5811-5) pH, UA (test code = 7.0 5.0-8.0 5803-2) Protein, UA (test 30 mg/dL Negative A code = 28660-6) Glucose, UA (test Negative Negative code = 365) Ketones, UA (test 20 mg/dL Negative A code = 2514-8) Bilirubin, UA (test Negative Negative code = 81590-3) Blood, UA (test code Negative Negative = 65530-4) Nitrite, UA (test Negative Negative code = 5802-4) Leukocytes, UA (test Trace Negative A code = 5799-2) Urobilinogen, UA 0.2 0.2-1.0 (test code = 01401-6) RBC, UA (test code = 4 See_Comment [Autom ated 27295-9) message] The system which generated this result transmit manoj reference range : /HPF. The reference range was not used to interpret this result as normal/abnormal . WBC, UA (test code = 4 See_Comment [Autom ated 5821-4) message] The system which generated this result transmit manoj reference range : /HPF. The reference range was not used to interpret this result as normal/abnormal . Squam Epithel, UA 3 See_Comment [Automate d (test code = 64807-3) messag e] The system which generated this result transmit manoj reference range : /HPF. The reference range was not used to interpret this result as normal/abnormal . Specimen Source (test code = 2795) SOPHIA (test code = SOPHIA) Music Therapy Specialist ID - [auto]Music Therapy Specialist ID - tech Lab Interpretation Abnormal (test code = 74355-8) [facility]FLEX URINE [id number] 14:05:05 Test Item Value Reference Range Interpretation Comments COLOR (BEAKER) (test code = 470) Yellow CLARITY (BEAKER) (test code = 469) Clear SPECIFIC GRAVITY UA (BEAKER) (test > 1.001-1.035 H code = 468) PH UA (BEAKER) (test code = 467) 7.0 5.0-8.0 PROTEIN UA (BEAKER) (test code = 30 mg/dL Negative A 464) GLUCOSE UA (BEAKER) (test code = Negative Negative 365) KETONES UA (BEAKER) (test code = 20 mg/dL Negative A 371) BILIRUBIN UA (BEAKER) (test code = Negative Negative 462) BLOOD UA (BEAKER) (test code = 461) Negative Negative NITRITE UA (BEAKER) (test code = Negative Negative 465) LEUKOCYTE ESTERASE UA (BEAKER) (test Trace Negative A code = 466) UROBILINOGEN UA (BEAKER) (test code 0.2 0.2-1.0 = 463) RBC UA (BEAKER) (test code = 519) 4 /HPF WBC UA (BEAKER) (test code = 520) 4 /HPF SQUAMOUS EPITHELIAL (BEAKER) (test 3 /HPF code = 516) SOURCE(BEAKER) (test code = 2795) Music Therapy Specialist ID - [auto]Music Therapy Specialist ID - techCT ABDOMEN/PELVIS WITH IV CONTRAST Standard [id number] 11:33:50EXAMINATION: CT ABDOMEN/PELVIS WITH IV CONTRAST. INDICATION: 53-year-old female with abdominal pain and fever. History ofmetastatic cholangiocarcinoma with peritoneal carcinomatosis. COMPARISON: CT abdomen and pelvis dated 03/31/2023. TECHNIQUE:Helical CT imaging of the abdomen and pelvis was performed from thediaphragms to the lesser trochanters after the administration ofintravenous contrast material. Multiplanar reconstructions were createdby a technologist. One or more of the following dose reduc tiontechniques were used:* Automated exposure control* Adjustment of the mA and/ or kV according to patient size* Use of iterative reconstruction technique Total DLP (mGy-cm): 1593.6Intravenous contrast: Not documented DICOM format image data are available to non-affiliated externalhealthcare facilities or entities on a secure, media free, reciprocallysearchable basis with patient authorization for at least a 12 monthperiod after the study. FINDINGS: LOWER CHEST: The visualized heart is unremarkable. Lung bases are clearof consolidation. No pleural effusion. LIVER: Redemonstration of a 7.1 x 5.1 x 5.2 cm mass at the hepatichilum. Progressive biliary dilatation in segment V is noted withdevelopmentof biliary abscesses in this segment, the largest measuring5.6 x 7.5 x 6.9 cm (axial image 20). Additional small abscesses arenoted in the hepatic dome. Percutaneous drainage catheters are noted pearl hep atic abscess in the hepatic dome and in a perihepatic abscess alongthe right hemiliver. A bare metalstent is noted in the CBD. 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 BILIARY SYSTEM: As above. SPLEEN: Spleen is of normal size. No suspicious splenic lesions. PANCREAS: Pancreas is of normal morphology. No suspicious pancreaticlesions. ADRENALS: No focal adrenal lesions. URINARY SYSTEM: Kidneys are grossly symmetric. No suspicious renallesions. No hydronephrosis or hydroureter. Bladder is unremarkable. REPRODUCTIVE SYSTEM: Reproductive organs are unremarkable. GASTROINTESTINAL SYSTEM: Stomach is unremarkable. Small bowel is normalin caliber. Colon is unremarkable. Appendix is visualized and appearsnormal. VASCULAR: Abdominal aorta is of normal course and caliber. Mildcalcified atherosclerotic disease. LYMPHATICS: No pathologic lymphadenopathy. PERITONEUM: Small volume ascites. SOFT TISSUES/ BONES: Mild anasarca. Mild degenerative changes of thevisualized spine. No aggressive osseous lesions.[facility] Center[facility] 2023-04-29 11:33:50 [facility] 1970 Sex: FEXAMINATION: CT ABDOMEN/PELVIS WITH IV CONTRAST.INDICATION: 53-year-old female with abdominal pain andfever. History ofmetastatic cholangiocarcinoma with peritoneal carcinomatosis.COMPARISON: CT abdomenand pelvis dated 03/31/2023.TECHNIQUE:Helical CT imaging of the abdomen and pelvis was performed from thediaphragms to the lesser trochanters after the administration ofintravenous contrast material. Multiplanar reconstructions were createdby a technologist. One or more of the following dose reductiontechniques were used:* Automated exposure control* Adjustment of the mA and/ or kV according to patient size* Use of iterative reconstruction techniqueTotal DLP (mGy-cm): 1593.6Intravenous contrast: NotdocumentedDICOM format image data are available to non-affiliated externalmart[facility] hospitalcare facilities or entities on a secure, media free, reciprocallysearchable basis with patient authorization for at leasta 12 monthperiod after the study.FINDINGS:LOWER CHEST: The visualized heart is unremarkable. Lung bases are clearof consolidation. No pleural effusion.LIVER: Redemonstration of a 7.1 x 5.1 x 5.2 cm mass at the hepatichilum. Progressive biliary dilatation in segment V is noted withdevelopment of biliary abscesses in this segment, the largest measuring5.6 x 7.5 x 6.9 cm (axial image 20). Additional small abscesses arenoted in the hepatic dome. Percutaneous drainage catheters are noted pearl hepatic abscess in the hepatic dome and in a perihepatic abscess alongthe right hemiliver. A bare metal stent is noted in the CBD. 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 No suspicious splenic lesions.PANCREAS: Pancreas is of normal morphology. No suspicious pancreaticlesions.ADRENALS: No focal adrenal lesions.URINARY SYSTEM: Kidneys are grossly symmetric. No suspicious renallesions. No hydronephrosis or hydroureter. Bladder is unremarkable.REPRODUCTIVE SYSTEM: Reproductive organs are unremarkable.GASTROINTESTINAL SYSTEM: Stomach is unremarkable. Small bowel is normalin caliber. Colon is unremarkable. Appendix is visualized and appearsnormal.VASCULAR: Abdominal aorta is of normal course and caliber. Mildcalcified atherosclerotic disease.LYMPHATICS: No pathologic lymphadenopathy.PERITONEUM: Small volume ascites.SOFT TISSUES/ BONES: Mild anasarca. Mild degenerative changes of thevisualized spine. No aggressive osseous lesions.IMPRESSION:1. Redemonstration of a 7.1 x 5.1 x 5.2 cm mass at the hepatic hilum,in keeping with known history of cholangiocarcinoma, with chronicocclusion of the main portal vein.2. Progressive biliary dilatation in segmentV with development ofbiliary abscesses in this segment, the largest measuring 5.6 x 7.5 x 6.9cm. Additional small abscesses are noted in the hepatic dome.3. Percutaneous drainage catheters are noted pearl hepatic abscess inthe hepatic dome and in a perihepatic abscess along the right hemiliver.4. Small volume ascites.Electronically Signed By: Narinder Sheikh04/29/2023 11:35 CDTWorkstation Name: [id number] chest 1 view portable / [id number] 10:51:27CLINICAL HISTORY: hypotension TECHNIQUE: 1 view of the chest. [facility] / [id number] 10:51:27 [facility] 1970 Sex: FCLINICAL HISTORY: hypotension TECHNIQUE: 1 view of the chest.COMPARISON: 03/24/2023IMPRESSION:Right chest wall port again seen. Two pigtail catheters project in theright upper quadrant along with a TIPS. Elevation of the hemidiaphragm is again seen with adjacent right basilaratelectasis. Subpulmonic pleural effusions cannot be excluded. Thecardiomediastinal silhouette is magnified by technique.Electronic ally Signed By: Kimmie Johns04/29/2023 10:53 CDTWorkstation Name: [id number] COMPREHENSIVE METABOLIC [id number] 10:45:48 Test Item Value Reference Range Interpretation Comments TOTAL PROTEIN 5.9 gm/dL 6.0-8.3 L (BEAKER) (test code = 770) ALBUMIN (BEAKER) 1.9 g/dL 3.5-5.0 L (test code = 1145) ALKALINE 553 U/L 40-150 H PHOSPHATASE (BEAKER) (test code = 346) BILIRUBIN TOTAL 2.5 mg/dL 0.2-1.2 H (BEAKER) (test code = 377) SODIUM (BEAKER) 134 meq/L 136-145 L (test code = 381) POTASSIUM (BEAKER) 3.0 meq/L 3.5-5.1 L (test code = 379) CHLORIDE (BEAKER) 98 meq/L 98-107 (test code = 382) CO2 (BEAKER) (test 27 meq/L 22-29 code = 355) BLOOD UREA 9 mg/dL 7-21 NITROGEN (BEAKER) (test code = 354) CREATININE 0.61 mg/dL 0.57-1.25 (BEAKER) (test code = 358) GLUCOSE RANDOM 83 mg/dL 70-105 (BEAKER) (test code = 652) CALCIUM (BEAKER) 6.8 mg/dL 8.4-10.2 L (test code = 697) AST (SGOT) 26 U/L 5-34 (BEAKER) (test code = 353) ALT (SGPT) 6 U/L 6-55 (BEAKER) (test code = 347) EGFR (BEAKER) 107 Interpretatio n of eGFR [...] not as accur ate as Creatinine Roya hneley in predicting glom erular filtration rate . Estimated GFR is not appl icable for dialysis patien ts Music Therapy Specialist ID - ADMINHIGH SENSITIVITY TROPONIN [id number] 10:44:51 Test Item Value Reference Range Interpretation Comments HIGH SENSITIVITY TROPONIN I (test < pg/ml <=17 code = 9793969) Music Therapy Specialist ID - ADMINThe RUG DYER STAT High Sensitivity Troponin-I results should be used in conjunction with other diagnostic information such as ECG, clinical observations and information, and patientsymptoms to aid in the diagnosis of ND. LACTIC ACID, [id number] 10:34:08 Test Item Value Reference Range Interpretation Comments LACTATE BLOOD VENOUS (2) (BEAKER) 1.41 mmol/L 0.50-2.00 (test code = 2872) Music Therapy Specialist ID - [id number] 10:28:21 Test Item Value Reference Range Interpretation Comments PARTIAL THROMBOPLASTIN TIME 52.1 seconds 22.5-36.0 H (BEAKER) (test code = 760) PROTHROMBIN TIME/[id number] 10:27:24 Test Item Value Reference Range Interpretation Comments PROTIME (BEAKER) (test code = 19.3 seconds 11.9-14.2 H 759) INR (BEAKER) (test code = 370) 1.66 <=5.90 RECOMMENDED COUMADIN/WARFARIN INR THERAPY RANGESSTANDARD DOSE: 2.0 - 3.0 Includes: PROPHYLAXIS for venous thrombosis, systemic embolization; TREATMENT for venous thrombosis and/or pulmonary embolus.HIGH RISK: Target INR is 2.5-3.5 for patients with mechanical heart valves.CBC W/PLT COUNT & AUTO [id number] 10:27:17 Test Item Value Reference Range Interpretation Comments WHITE BLOOD CELL COUNT 4.1 K/ L 3.5-10.5 (BEAKER) (test code = 775) RED BLOOD CELL COUNT 2.10 M/ L 3.93-5.22 L (BEAKER) (test code = 761) HEMOGLOBIN (BEAKER) 5.8 GM/DL 11.2-15.7 LL (test code = 410) HEMATOCRIT (BEAKER) 18.7 % 34.1-44.9 L (test code = 411) MEAN CORPUSCULAR VOLUME 89 fL 79-95 (BEAKER) (test code = 753) MEAN CORPUSCULAR 27.6 pg 25.6-32.2 HEMOGLOBIN (BEAKER) (test code = 751) MEAN CORPUSCULAR 31.0 GM/DL 32.2-35.5 L HEMOGLOBIN CONC (BEAKER) (test code = 752) RED CELL DISTRIBUTION 28.8 % 11.7-14.4 H WIDTH (BEAKER) (test code = 412) PLATELET COUNT (BEAKER) 40 K/CU MM 150-450 L (test code = 756) MEAN PLATELET VOLUME Unable to report due (BEAKER) (test code = to abn ormal Platelet 754) population distribution. NUCLEATED RED BLOOD 0 /100 WBC 0-0 CELLS (BEAKER) (test code = 413) NEUTROPHILS RELATIVE 83 % PERCENT (BEAKER) (test code = 429) LYMPHOCYTES RELATIVE 8 % PERCENT (BEAKER) (test code = 430) MONOCYTES RELATIVE 8 % PERCENT (BEAKER) (test code = 431) EOSINOPHILS RELATIVE 0 % PERCENT (BEAKER) (test code = 432) BASOPHILS RELATIVE 1 % PERCENT (BEAKER) (test code = 437) NEUTROPHILS ABSOLUTE 3.40 K/ L 1.56-6.13 COUNT (BEAKER) (test code = 670) LYMPHOCYTES ABSOLUTE 0.31 K/ L 1.18-3.74 L COUNT (BEAKER) (test code = 414) MONOCYTES ABSOLUTE 0.32 K/ L 0.24-0.36 COUNT (BEAKER) (test code = 415) EOSINOPHILS ABSOLUTE 0.01 K/ L 0.04-0.36 L COUNT (BEAKER) (test code = 416) BASOPHILS ABSOLUTE 0.02 K/ L 0.01-0.08 COUNT (BEAKER) (test code = 417) IMMATURE 0.70 % 0.00-1.00 GRANULOCYTES-RELATIVE PERCENT (BEAKER) (test code = 2801) [id number] 00:00:00Ordered by an unspecified provider.[facility] CenterEKG-[id number] 00:00:00Ordered by an unspecified provider. [facility] CenterIR Drainage Catheter [id number] 09:05:10Hepatic abscess drainage catheter exchange/upsize. History: History of multiple hepatic fluid collections with two drainagecatheters. Patient presents for pericatheter leakage of the moreinferior drainage catheter. Modality: Fluoroscopy. Sedation: Moderate sedation was administered. 1.5 mg of Versed and 75mcg of fentanyl IV was used for moderate sedation monitored under mydirection. Total intra-service time of sedation was 30 minutes. Thepatient's vital signs were monitored throughout the procedureandrecorded in the patient's medical record by the nurse. Curriculum Facilitator: Yousuf Menon M.D. Tank Bottom Assembler: None. Estimated blood loss: < 5 cc. Specimen: None. Fluoroscopy Time: 1.2 min.Reference Air K tereza (Ka, r): 21.2 mGy. Technique: Informed written consent was obtained. Discussion of risks, benefits,and alternatives were made with the patient. The patient expressedunderstanding and agreed to proceed. A universal timeout was performedprior to starting the procedure. All elements maximal sterile b arriertechnique was utilized for this procedure, including utilization ofsterile scrub solution for skin prep, a large sterile sheet to cover theareas of the patient that were not prepped, and hand hygiene, mask, headcovering, and sterile gown for performing radiologist and scrubtechnologist. Local anesthesia was administered. [employer] image was taken. A few cc ofcontrast were administered through the lower hepatic abscess drain. Thisdemonstrated opacification of the abscess cavity. The catheter wassevered, and a wire was placed into the cavity. A new 12 Frenchmultipurpose drainage catheter was placedover the wire and into theabscess cavity. The wire was removed, and the catheter was locked.Sterile d ressing applied. The catheter was connected to suctiondrainage.[facility] CenterIR DRAINAGE CATHETER [id number] 09:05:10 [facility] 1970 Sex: FHepatic abscess drainage catheter exchange/upsize. History: History of multiple hepatic fluid collections with two drainagecatheters. Patient presents for pericatheter leakage of the moreinferior drainage catheter. Modality: Fluoroscopy. Sedation: Moderate sedation was administered. 1.5 mg of Versed and 75mcg of fentanyl IV was used for moderate sedation monitored under mydirection. Total intra-service time of sedation was 30 minutes. Thepatient's vital signs were monitored throughout the procedure andrecorded in the patient's medical record by the nurse. Curriculum Facilitator: Yousuf Menon M.D.Tank Bottom Assembler: None. Estimated blood loss: < 5 cc.Specimen: None. Fluoroscopy Time: 1.2 min.Reference Air Kerma (Ka, r): 21.2 mGy.Technique: Informed written consent was obtained. Discussion of risks, benefits,and alternatives were made with the patient. The patient expressedunderstanding and agreed to proceed. A universal timeout was performedprior to starting the procedure. All elements maximal sterile [facility] was utilized for this procedure, including utilization ofsterile scrub solution for skinprep, a large sterile sheet to cover theareas of the patient that were not prepped, and hand hygiene, mask, headcovering, and sterile gown for performing radiologist and scrubtechnologist.Local anesthesia was administered. [employer] image was taken. A few cc ofcontrast were administered through the lower hepatic abscess drain. Thisdemonstrated opacification of the abscess cavity. The catheter wassevered,and a wire was placed into the cavity. A new 12 Frenchmultipurpose drainage catheter was placed overthe wire and into theabscess cavity. The wire was removed, and the catheter was locked.Sterile dressing applied. The catheter was connected to suctiondrainage. IMPRESSION:Impression: Successful upsize/exchange of the more inferior the hepatic abscessdrainage catheter.Electronically Signed By: Yousuf Menon04/21/2023 09:07 CDTWorkstation Name: [id number] 12:38:22 Test Item Value Reference Range Interpretation Comments POC-GLUCOSE METER 105 mg/dL 70-110 : TESTED A T [facility] 6720 (BEMarketcetera) (test code = KENYA QUINONES [place], 1538) [address]: Music Therapy Specialist/Techni grisel ID = [id number] for KATARZYNA FERNANDEZ [id number] 11:23:36 Test Item Value Reference Range Interpretation Comments PARTIAL THROMBOPLASTIN TIME 51.0 seconds 22.5-36.0 H (BEAKER) (test code = 760) PROTHROMBIN TIME/[id number] 11:22:38 Test Item Value Reference Range Interpretation Comments PROTIME (BEAKER) (test code = 18.1 seconds 11.9-14.2 H 759) INR (BEAKER) (test code = 370) 1.52 <=5.90 RECOMMENDED COUMADIN/WARFARIN INR THERAPY RANGESSTANDARD DOSE: 2.0 - 3.0 Includes: PROPHYLAXIS for venous thrombosis, systemic embolization; TREATMENT for venous thrombosis and/or pulmonary embolus.HIGH RISK: Target INR is 2.5-3.5 for patients with mechanical heart valves.CBC W/PLT COUNT & AUTO [id number] 11:14:20 Test Item Value Reference Range Interpretation Comments WHITE BLOOD CELL COUNT 10.8 K/ L 3.5-10.5 H (BEAKER) (test code = 775) RED BLOOD CELL COUNT 2.64 M/ L 3.93-5.22 L (BEAKER) (test code = 761) HEMOGLOBIN (BEAKER) 6.7 GM/DL 11.2-15.7 L (test code = 410) HEMATOCRIT (BEAKER) 21.6 % 34.1-44.9 L (test code = 411) MEAN CORPUSCULAR VOLUME 82 fL 79-95 (BEAKER) (test code = 753) MEAN CORPUSCULAR 25.4 pg 25.6-32.2 L HEMOGLOBIN (BEAKER) (test code = 751) MEAN CORPUSCULAR 31.0 GM/DL 32.2-35.5 L HEMOGLOBIN CONC (BEAKER) (test code = 752) RED CELL DISTRIBUTION 25.5 % 11.7-14.4 H WIDTH (BEAKER) (test code = 412) PLATELET COUNT (BEAKER) 40 K/CU MM 150-450 L (test code = 756) MEAN PLATELET VOLUME Unable to report due (BEAKER) (test code = to abn ormal Platelet 754) population distribution. NUCLEATED RED BLOOD 0 /100 WBC 0-0 CELLS (BEAKER) (test code = 413) NEUTROPHILS RELATIVE 84 % PERCENT (BEAKER) (test code = 429) LYMPHOCYTES RELATIVE 8 % PERCENT (BEAKER) (test code = 430) MONOCYTES RELATIVE 7 % PERCENT (BEAKER) (test code = 431) EOSINOPHILS RELATIVE 0 % PERCENT (BEAKER) (test code = 432) BASOPHILS RELATIVE 1 % PERCENT (BEAKER) (test code = 437) NEUTROPHILS ABSOLUTE 9.01 K/ L 1.56-6.13 H COUNT (BEAKER) (test code = 670) LYMPHOCYTES ABSOLUTE 0.82 K/ L 1.18-3.74 L COUNT (BEAKER) (test code = 414) MONOCYTES ABSOLUTE 0.75 K/ L 0.24-0.36 H COUNT (BEAKER) (test code = 415) EOSINOPHILS ABSOLUTE 0.04 K/ L 0.04-0.36 COUNT (BEAKER) (test code = 416) BASOPHILS ABSOLUTE 0.05 K/ L 0.01-0.08 COUNT (BEAKER) (test code = 417) IMMATURE 0.90 % 0.00-1.00 GRANULOCYTES-RELATIVE PERCENT (BEAKER) (test code = 2801) POCT-GLUCOSE [id number] 11:00:38 Test Item Value Reference Range Interpretation Comments POC-GLUCOSE METER 58 mg/dL 70-110 L : TESTED A T [facility] (BEAKER) (test code = KENYA Mcmullen [facility], 1538) [id number]: Music Therapy Specialist/Techni grisel ID = [id number] for Patel t, Sam CT biopsy [id number] 14:36:59 CT-guided drain placement and aspiration.. History: Hepatic/perihepatic fluid collections Modality: CT Sedation: Moderate sedation was administered. 2.5 mg of Versed and 125mcg of fentanyl IV was used for moderate sedation monitored under mydirection. Total intra-service time of sedation was 45 minutes. Thepatient's vital signs were monitored throughout the procedure andrecorded in the patient's medical record by the nurse. Curriculum Facilitator: Yousuf Menon M.D. Tank Bottom Assembler: Dr. Mustafa. Estimated blood loss: < 5 cc. Technique: Informed written consent was obtained. Discussion of risks, benefits,and alternatives were made with the patient. The patient expressedunderstanding and agreed to proceed. A universal timeout was performedprior to starting the procedure. All elements maximal sterile [facility] was utilized for this procedure, including utilization ofsterile scrub solution for skinprep, a large sterile sheet to cover theareas of the patient that were not prepped, and hand hygiene, mask, headcovering, and sterile gown for performing radiologist and scrubtechnologist. Patient was laid supine on the CT table. Planning CT was performed.Local anesthesia was administered. Under CT fluoroscopic guidance, aone-step needle was advanced into the right lateral hepatic fluidcollection. A wire was placed into the fluid collection. The tract wasserially dilated. Over the wire, a 10.2 [place] multipurpose drainagecatheter was placed. The wire was removed, and the catheter was locked.This yielded yellow, sedimented fluid. The catheter was secured to theskin with suture and attached to suction drainage. The more superior collection near the hepatic dome was targeted foraspiration only, as the tract would have been transdiaphragmatic. Aone-step needle was advanced (under CT fluoroscopic guidance) afterlocal anesthesia was administered. This also yielded approximately 20 ccof sedimented, yellow fluid. The needle was removed. Sterile dressingsapplied.[facility]SY [id number] 14:36:59[facility] 1970 Sex: F CT-guided drain placement and aspiration.. History: Hepatic/perihepatic fluid collections Modality: CT Sedation: Moderate sedation was administered. 2.5 mg of Versed and 125mcg of fentanyl IV was used for moderate sedation monitored under mydirection. Total intra-service time of sedation was 45 minutes. Thepatient's vital signs were monitored throughout the procedure andrecorded in the patient's medical record by the nurse. Curriculum Facilitator: Yousuf Menon M.D.Tank Bottom Assembler: Dr. Mustafa. Estimated blood loss: < 5 cc.Technique: Informed written consent was obtained. Discussion of risks, benefits,and alternatives were made with the patient. The patient expressedunderstanding and agreed to proceed. A universal timeout was performedprior to starting the procedure. All elements maximal sterile barriertechnique was utilized for this procedure, including utilization ofsterile scrub solution for skin prep, a large sterile sheet to cover theareas of the patient that were not prepped, and hand hygiene, mask, headcovering, and sterile gown for performing radiologist and scrubtechnologist.Patient was laid supine on the CT table. Planning CT was performed.Local anesthesia was administered. Under CT fluoroscopic guidance, aone-step needle was advanced into the right lateral hepatic fluidcollection. A wire was placed into the fluid collection. The tract wasserially dilated. Over the wire, a 10.2 [facility] multi purpose drainagecatheter was placed. The wire was removed, and the catheter was locked.This yielded yellow, sedimented fluid. The catheter was secured to theskin with suture and attached to suction drainage.The more superior collection near the hepatic dome was targeted foraspiration only, as the tract would have been transdiaphragmatic. Aone-step needle was advanced (under CT fluoroscopic guidance) afterlocal anesthesia was administered. This also yielded approximately 20 ccof sedimented, yellow fluid. The needle was removed. Sterile dressingsapplied. IMPRESSION:Impression: Successful CT-guided aspiration and drainage catheter placement.Electronically Signed By: Yousuf Menon04/15/2023 14:39 CDTWorkstation Name: [id number] 09:41:20 Test Item Value Reference Range Interpretation Comments Result (test code = No anaerobes isolated 6463-4) [facility] [id number] 09:41:20 Test Item Value Reference Range Interpretation Comments Result (test code = No anaerobes isolated 6463-4) [facility] [id number] 09:41:20 Test Item Value Reference Range Interpretation Comments CULTURE (BEAKER) (test No anaerobes isolated code = 1095) POCT-GLUCOSE [id number] 12:16:13 Test Item Value Reference Range Interpretation Comments POC-GLUCOSE METER 114 mg/dL 70-110 H : TESTED A T [facility] 6720 (BEAKER) (test code = KENYA QUINONES [place], 1538) [address]: Music Therapy Specialist/Techni grisel ID = [id number] for ETHEL MIKE, DANICA WOUND CULTURE + GRAM [id number] 10:11:19 Test Item Value Reference Interpretation Comments Range CULTURE (BEAKER) (test ESCHERICHIA COLI A 2 + Escherichia code = 1095) coli Amikacin (test code = S 1) Ampicillin + Sulbactam S (test code = 6) Aztreonam (test code = S 32) Cefepime (test code = S 51) Cefoxitin (test code = S 68) Ceftazidime (test code S = 27) Ceftriaxone (test code S = 52) Ertapenem (test code = S 38) Gentamicin (test code S = 18) Levofloxacin (test S code = 22) Meropenem (test code = S 34) Nitrofurantoin (test S code = 23) Piperacillin + S Tazobactam (test code = 29) Tetracycline (test S code = 2) Tobramycin (test code S = 25) Trimethoprim + S Sulfamethoxazole (test code = 47) CULTURE (BEAKER) (test ENTEROCOCCUS A 1+ En terococcus code = 1095) GALLINARUM gallinarum Ampicillin (test code S = 26) Linezolid (test code = S 40) Vancomycin (test code R = 13) CULTURE (BEAKER) (test A <1+ C andida code = 1095) albicans CULTURE (BEAKER) (test ENTEROBACTER A <1+ E nterobacter code = 1095) CLOACAE COMPLEX cloacae comp cecil Amikacin (test code = S 1) Aztreonam (test code = S 32) Cefepime (test code = S 51) Cefoxitin (test code = R 68) Ceftazidime (test code S = 27) Ceftriaxone (test code S = 52) Ertapenem (test code = S 38) Gentamicin (test code S = 18) Levofloxacin (test S code = 22) Meropenem (test code = S 34) Nitrofurantoin (test S code = 23) Piperacillin + S Tazobactam (test code = 29) Tetracycline (test S code = 2) Tobramycin (test code S = 25) Trimethoprim + S Sulfamethoxazole (test code = 47) GRAM STAIN RESULT <1+ WBCs (BEAKER) (test code = 1123) GRAM STAIN RESULT <1+ gram negative (BEAKER) (test code = rods 769971) POCT-GLUCOSE [id number] 09:05:16 Test Item Value Reference Range Interpretation Comments POC-GLUCOSE METER 100 mg/dL 70-110 : TESTED A T [facility] 6720 (BEAKER) (test code = KENYA Mcmullen [facility], 1538) [address]: Music Therapy Specialist/Techni grisel ID = [id number] for DANICA YING POCT-GLUCOSE [id number] 07:42:46 Test Item Value Reference Range Interpretation Comments POC-GLUCOSE METER 102 mg/dL 70-110 : TESTED A T [facility] 6720 (BEAKER) (test code = KENYA Mcmullen [facility], 1538) 16526: Music Therapy Specialist/Techni grisel ID = [id number] for Suzanna Jones COMPREHENSIVE METABOLIC [id number] 04:46:49 Test Item Value Reference Range Interpretation Comments TOTAL PROTEIN 5.7 gm/dL 6.0-8.3 L Specimen sligh tly (BEAKER) (test hemolyzed code = 770) ALBUMIN (BEAKER) 2.1 g/dL 3.5-5.0 L Specimen sl ightly (test code = 1145) hemolyzed ALKALINE 525 U/L 40-150 H PHOSPHATASE (BEAKER) (test code = 346) BILIRUBIN TOTAL 4.0 mg/dL 0.2-1.2 H Specimen sli ghtly (BEAKER) (test hemolyzed code = 377) SODIUM (BEAKER) 136 meq/L 136-145 (test code = 381) POTASSIUM (BEAKER) 3.9 meq/L 3.5-5.1 Specimen slightly (test code = 379) hemolyzed CHLORIDE (BEAKER) 99 meq/L 98-107 (test code = 382) CO2 (BEAKER) (test 30 meq/L 22-29 H code = 355) BLOOD UREA 6 mg/dL 7-21 L NITROGEN (BEAKER) (test code = 354) CREATININE 0.46 mg/dL 0.57-1.25 L Specimen slight ly (BEAKER) (test hemolyzed code = 358) GLUCOSE RANDOM 101 mg/dL 70-105 (BEAKER) (test code = 652) CALCIUM (BEAKER) 7.8 mg/dL 8.4-10.2 L (test code = 697) AST (SGOT) 58 U/L 5-34 H Specimen slight ly (BEAKER) (test hemolyzed code = 353) ALT (SGPT) 29 U/L 6-55 Specimen slight ly (BEAKER) (test hemolyzed code = 347) EGFR (BEAKER) 114 Interpretatio n of eGFR (test code = [...] not appl icable for dialysis patien ts Music Therapy Specialist ID - EMSpecimen slightly [id number] 04:37:01 Test Item Value Reference Range Interpretation Comments MAGNESIUM (BEAKER) 1.6 mg/dL 1.6-2.6 Specimen slightly (test code = 627) hemolyzed Music Therapy Specialist ID - [id number] 04:37:01 Test Item Value Reference Range Interpretation Comments PHOSPHORUS (BEAKER) 3.3 mg/dL 2.3-4.7 Specimen slightly (test code = 604) hemolyzed Music Therapy Specialist ID - EMCBC W/PLT COUNT & AUTO [id number] 04:17:27 Test Item Value Reference Range Interpretation Comments WHITE BLOOD CELL COUNT 9.2 K/ L 3.5-10.5 (BEAKER) (test code = 775) RED BLOOD CELL COUNT 2.94 M/ L 3.93-5.22 L (BEAKER) (test code = 761) HEMOGLOBIN (BEAKER) 7.3 GM/DL 11.2-15.7 L (test code = 410) HEMATOCRIT (BEAKER) 22.9 % 34.1-44.9 L (test code = 411) MEAN CORPUSCULAR VOLUME 78 fL 79-95 L (BEAKER) (test code = 753) MEAN CORPUSCULAR 24.8 pg 25.6-32.2 L HEMOGLOBIN (BEAKER) (test code = 751) MEAN CORPUSCULAR 31.9 GM/DL 32.2-35.5 L HEMOGLOBIN CONC (BEAKER) (test code = 752) RED CELL DISTRIBUTION 22.5 % 11.7-14.4 H WIDTH (BEAKER) (test code = 412) PLATELET COUNT (BEAKER) 73 K/CU MM 150-450 L (test code = 756) MEAN PLATELET VOLUME Unable to report due (BEAKER) (test code = to abn ormal Platelet 754) population distribution. NUCLEATED RED BLOOD 0 /100 WBC 0-0 CELLS (BEAKER) (test code = 413) NEUTROPHILS RELATIVE 83 % PERCENT (BEAKER) (test code = 429) LYMPHOCYTES RELATIVE 7 % PERCENT (BEAKER) (test code = 430) MONOCYTES RELATIVE 9 % PERCENT (BEAKER) (test code = 431) EOSINOPHILS RELATIVE 0 % PERCENT (BEAKER) (test code = 432) BASOPHILS RELATIVE 0 % PERCENT (BEAKER) (test code = 437) NEUTROPHILS ABSOLUTE 7.62 K/ L 1.56-6.13 H COUNT (BEAKER) (test code = 670) LYMPHOCYTES ABSOLUTE 0.64 K/ L 1.18-3.74 L COUNT (BEAKER) (test code = 414) MONOCYTES ABSOLUTE 0.87 K/ L 0.24-0.36 H COUNT (BEAKER) (test code = 415) EOSINOPHILS ABSOLUTE 0.03 K/ L 0.04-0.36 L COUNT (BEAKER) (test code = 416) BASOPHILS ABSOLUTE 0.02 K/ L 0.01-0.08 COUNT (BEAKER) (test code = 417) IMMATURE 0.60 % 0.00-1.00 GRANULOCYTES-RELATIVE PERCENT (BEAKER) (test code = 2801) POCT-GLUCOSE [id number] 17:22:24 Test Item Value Reference Range Interpretation Comments POC-GLUCOSE METER 122 mg/dL 70-110 H : TESTED A T [facility] 6720 (BEAKER) (test code = [facility], 153) [address]: Music Therapy Specialist/Techni grisel ID = [id number] for DANICA YING POCT-GLUCOSE [id number] 11:50:37 Test Item Value Reference Range Interpretation Comments POC-GLUCOSE METER 146 mg/dL 70-110 H : TESTED A T [facility] 6720 (BEAKER) (test code = [facility], 153) 30280: Music Therapy Specialist/Techni grisel ID = [id number] for DANICA YING POCT-GLUCOSE [id number] 08:16:22 Test Item Value Reference Range Interpretation Comments POC-GLUCOSE METER 120 mg/dL 70-110 H : TESTED A T [facility] 6720 (BEAKER) (test code = [facility] [place], 1538) [address]: Music Therapy Specialist/Techni grisel ID = [id number] for DANICA YING COMPREHENSIVE METABOLIC [id number] 08:00:03 Test Item Value Reference Range Interpretation Comments TOTAL PROTEIN 5.6 gm/dL 6.0-8.3 L (BEAKER) (test code = 770) ALBUMIN (BEAKER) 2.2 g/dL 3.5-5.0 L (test code = 1145) ALKALINE 534 U/L 40-150 H PHOSPHATASE (BEAKER) (test code = 346) BILIRUBIN TOTAL 4.1 mg/dL 0.2-1.2 H (BEAKER) (test code = 377) SODIUM (BEAKER) 135 meq/L 136-145 L (test code = 381) POTASSIUM (BEAKER) 3.8 meq/L 3.5-5.1 (test code = 379) CHLORIDE (BEAKER) 99 meq/L 98-107 (test code = 382) CO2 (BEAKER) (test 28 meq/L 22-29 code = 355) BLOOD UREA 7 mg/dL 7-21 NITROGEN (BEAKER) (test code = 354) CREATININE 0.47 mg/dL 0.57-1.25 L (BEAKER) (test code = 358) GLUCOSE RANDOM 104 mg/dL 70-105 (BEAKER) (test code = 652) CALCIUM (BEAKER) 7.6 mg/dL 8.4-10.2 L (test code = 697) AST (SGOT) 49 U/L 5-34 H (BEAKER) (test code = 353) ALT (SGPT) 33 U/L 6-55 (BEAKER) (test code = 347) EGFR (BEAKER) 114 Interpretatio n of eGFR (test code = [...] not appl icable for dialysis patien ts Music Therapy Specialist ID - bcSpecimen slightly [id number] 07:55:01 Test Item Value Reference Range Interpretation Comments PHOSPHORUS (BEAKER) (test code = 3.4 mg/dL 2.3-4.7 604) Music Therapy Specialist ID - [id number] 07:55:00 Test Item Value Reference Range Interpretation Comments MAGNESIUM (BEAKER) (test code = 1.6 mg/dL 1.6-2.6 627) Music Therapy Specialist ID - bcCBC W/PLT COUNT & AUTO [id number] 06:16:52 Test Item Value Reference Range Interpretation Comments WHITE BLOOD CELL COUNT 11.4 K/ L 3.5-10.5 H (BEAKER) (test code = 775) RED BLOOD CELL COUNT 3.01 M/ L 3.93-5.22 L (BEAKER) (test code = 761) HEMOGLOBIN (BEAKER) 7.7 GM/DL 11.2-15.7 L (test code = 410) HEMATOCRIT (BEAKER) 23.9 % 34.1-44.9 L (test code = 411) MEAN CORPUSCULAR 79 fL 79-95 Discordant MCV VOLUME (BEAKER) (test result s compared to code = 753) previous result s; clinical correl ation required. MEAN CORPUSCULAR 25.6 pg 25.6-32.2 HEMOGLOBIN (BEAKER) (test code = 751) MEAN CORPUSCULAR 32.2 GM/DL 32.2-35.5 HEMOGLOBIN CONC (BEAKER) (test code = 752) RED CELL DISTRIBUTION 22.0 % 11.7-14.4 H WIDTH (BEAKER) (test code = 412) PLATELET COUNT 76 K/CU MM 150-450 L (BEAKER) (test code = 756) MEAN PLATELET VOLUME 10.1 fL 9.4-12.3 (BEAKER) (test code = 754) NUCLEATED RED BLOOD 0 /100 WBC 0-0 CELLS (BEAKER) (test code = 413) NEUTROPHILS RELATIVE 85 % PERCENT (BEAKER) (test code = 429) LYMPHOCYTES RELATIVE 7 % PERCENT (BEAKER) (test code = 430) MONOCYTES RELATIVE 8 % PERCENT (BEAKER) (test code = 431) EOSINOPHILS RELATIVE 0 % PERCENT (BEAKER) (test code = 432) BASOPHILS RELATIVE 0 % PERCENT (BEAKER) (test code = 437) NEUTROPHILS ABSOLUTE 9.61 K/ L 1.56-6.13 H COUNT (BEAKER) (test code = 670) LYMPHOCYTES ABSOLUTE 0.76 K/ L 1.18-3.74 L COUNT (BEAKER) (test code = 414) MONOCYTES ABSOLUTE 0.86 K/ L 0.24-0.36 H COUNT (BEAKER) (test code = 415) EOSINOPHILS ABSOLUTE 0.02 K/ L 0.04-0.36 L COUNT (BEAKER) (test code = 416) BASOPHILS ABSOLUTE 0.03 K/ L 0.01-0.08 COUNT (BEAKER) (test code = 417) IMMATURE 0.70 % 0.00-1.00 GRANULOCYTES-RELATIVE PERCENT (BEAKER) (test code = 2801) POCT-GLUCOSE [id number] 23:25:58 Test Item Value Reference Range Interpretation Comments POC-GLUCOSE METER 108 mg/dL 70-110 : TESTED A T [facility] 6720 (BEAKER) (test code = [facility], 153) 6[address]: Music Therapy Specialist/Techni grisel ID = [id number] for MILO OSEGUERA POCT-GLUCOSE [id number] 16:52:11 Test Item Value Reference Range Interpretation Comments POC-GLUCOSE METER 101 mg/dL 70-110 : TESTED A T [facility] 6720 (BEAKER) (test code = [facility], 153) [address]: Music Therapy Specialist/Techni grisel ID = [id number] for MARY PETERSON CBC W/PLT COUNT & AUTO [id number] 13:04:15 Test Item Value Reference Range Interpretation Comments WHITE BLOOD CELL COUNT 9.5 K/ L 3.5-10.5 (BEAKER) (test code = 775) RED BLOOD CELL COUNT 3.58 M/ L 3.93-5.22 L (BEAKER) (test code = 761) HEMOGLOBIN (BEAKER) 9.1 GM/DL 11.2-15.7 L (test code = 410) HEMATOCRIT (BEAKER) 30.4 % 34.1-44.9 L (test code = 411) MEAN CORPUSCULAR 85 fL 79-95 DISCORDANT MCV RESULT VOLUME (BEAKER) (test COMPAR ED TO PREVIOUS code = 753) RESULT; CLINICA L CORRELATION REQ UIRED. MEAN CORPUSCULAR 25.4 pg 25.6-32.2 L HEMOGLOBIN (BEAKER) (test code = 751) MEAN CORPUSCULAR 29.9 GM/DL 32.2-35.5 L HEMOGLOBIN CONC (BEAKER) (test code = 752) RED CELL DISTRIBUTION 22.9 % 11.7-14.4 H WIDTH (BEAKER) (test code = 412) PLATELET COUNT 77 K/CU MM 150-450 L (BEAKER) (test code = 756) MEAN PLATELET VOLUME Unable to report due (BEAKER) (test code = to abn ormal Platelet 754) population distribution. NUCLEATED RED BLOOD 0 /100 WBC 0-0 CELLS (BEAKER) (test code = 413) NEUTROPHILS RELATIVE 78 % PERCENT (BEAKER) (test code = 429) LYMPHOCYTES RELATIVE 11 % PERCENT (BEAKER) (test code = 430) MONOCYTES RELATIVE 10 % PERCENT (BEAKER) (test code = 431) EOSINOPHILS RELATIVE 0 % PERCENT (BEAKER) (test code = 432) BASOPHILS RELATIVE 1 % PERCENT (BEAKER) (test code = 437) NEUTROPHILS ABSOLUTE 7.38 K/ L 1.56-6.13 H COUNT (BEAKER) (test code = 670) LYMPHOCYTES ABSOLUTE 1.01 K/ L 1.18-3.74 L COUNT (BEAKER) (test code = 414) MONOCYTES ABSOLUTE 0.94 K/ L 0.24-0.36 H COUNT (BEAKER) (test code = 415) EOSINOPHILS ABSOLUTE 0.02 K/ L 0.04-0.36 L COUNT (BEAKER) (test code = 416) BASOPHILS ABSOLUTE 0.07 K/ L 0.01-0.08 COUNT (BEAKER) (test code = 417) IMMATURE 0.90 % 0.00-1.00 GRANULOCYTES-RELATIVE PERCENT (BEAKER) (test code = 2801) POCT-GLUCOSE [id number] 11:58:09 Test Item Value Reference Range Interpretation Comments POC-GLUCOSE METER 103 mg/dL 70-110 : TESTED A T [facility] 6720 (BEAKER) (test code = [facility] [place], 1538) [address]: Music Therapy Specialist/Techni grisel ID = [id number] for MARY PETERSON COMPREHENSIVE METABOLIC [id number] 09:42:51 Test Item Value Reference Range Interpretation Comments TOTAL PROTEIN 5.3 gm/dL 6.0-8.3 L (BEAKER) (test code = 770) ALBUMIN (BEAKER) 2.0 g/dL 3.5-5.0 L (test code = 1145) ALKALINE 568 U/L 40-150 H PHOSPHATASE (BEAKER) (test code = 346) BILIRUBIN TOTAL 4.0 mg/dL 0.2-1.2 H (BEAKER) (test code = 377) SODIUM (BEAKER) 134 meq/L 136-145 L (test code = 381) POTASSIUM (BEAKER) 3.8 meq/L 3.5-5.1 (test code = 379) CHLORIDE (BEAKER) 101 meq/L 98-107 (test code = 382) CO2 (BEAKER) (test 25 meq/L 22-29 code = 355) BLOOD UREA 9 mg/dL 7-21 NITROGEN (BEAKER) (test code = 354) CREATININE 0.41 mg/dL 0.57-1.25 L (BEAKER) (test code = 358) GLUCOSE RANDOM 96 mg/dL 70-105 (BEAKER) (test code = 652) CALCIUM (BEAKER) 7.3 mg/dL 8.4-10.2 L (test code = 697) AST (SGOT) 60 U/L 5-34 H (BEAKER) (test code = 353) ALT (SGPT) 32 U/L 6-55 (BEAKER) (test code = 347) EGFR (BEAKER) 118 Interpretatio n of eGFR (test code = [...] not appl icable for dialysis patien ts Music Therapy Specialist ID - MARCOOperator ID - BSSpecimen slightly ictericPOCT-GLUCOSE METER 2023-04-04 08:32:54 Test Item Value Reference Range Interpretation Comments POC-GLUCOSE METER 115 mg/dL 70-110 H : TESTED A T [facility] (BEAKER) (test code = [facility]EN[facility] [place], 1538) [address]: Music Therapy Specialist/Techni grisel ID = [id number] for MARY PETERSON [id number] 07:40:43 Test Item Value Reference Range Interpretation Comments MAGNESIUM (BEAKER) (test code = 1.6 mg/dL 1.6-2.6 627) Music Therapy Specialist ID - [id number] 07:40:43 Test Item Value Reference Range Interpretation Comments PHOSPHORUS (BEAKER) (test code = 3.3 mg/dL 2.3-4.7 604) Music Therapy Specialist ID - MARCOCBC W/PLT COUNT & AUTO [id number] 06:24:11 Test Item Value Reference Range Interpretation Comments WHITE BLOOD CELL COUNT 9.3 K/ L 3.5-10.5 (BEAKER) (test code = 775) RED BLOOD CELL COUNT 2.84 M/ L 3.93-5.22 L (BEAKER) (test code = 761) HEMOGLOBIN (BEAKER) 7.3 GM/DL 11.2-15.7 L (test code = 410) HEMATOCRIT (BEAKER) 22.2 % 34.1-44.9 L (test code = 411) MEAN CORPUSCULAR VOLUME 78 fL 79-95 L (BEAKER) (test code = 753) MEAN CORPUSCULAR 25.7 pg 25.6-32.2 HEMOGLOBIN (BEAKER) (test code = 751) MEAN CORPUSCULAR 32.9 GM/DL 32.2-35.5 HEMOGLOBIN CONC (BEAKER) (test code = 752) RED CELL DISTRIBUTION 21.8 % 11.7-14.4 H WIDTH (BEAKER) (test code = 412) PLATELET COUNT (BEAKER) 79 K/CU MM 150-450 L (test code = 756) MEAN PLATELET VOLUME Unable to report due (BEAKER) (test code = to abn ormal Platelet 754) population distribution. NUCLEATED RED BLOOD 0 /100 WBC 0-0 CELLS (BEAKER) (test code = 413) NEUTROPHILS RELATIVE 83 % PERCENT (BEAKER) (test code = 429) LYMPHOCYTES RELATIVE 7 % PERCENT (BEAKER) (test code = 430) MONOCYTES RELATIVE 9 % PERCENT (BEAKER) (test code = 431) EOSINOPHILS RELATIVE 0 % PERCENT (BEAKER) (test code = 432) BASOPHILS RELATIVE 0 % PERCENT (BEAKER) (test code = 437) NEUTROPHILS ABSOLUTE 7.73 K/ L 1.56-6.13 H COUNT (BEAKER) (test code = 670) LYMPHOCYTES ABSOLUTE 0.62 K/ L 1.18-3.74 L COUNT (BEAKER) (test code = 414) MONOCYTES ABSOLUTE 0.82 K/ L 0.24-0.36 H COUNT (BEAKER) (test code = 415) EOSINOPHILS ABSOLUTE 0.01 K/ L 0.04-0.36 L COUNT (BEAKER) (test code = 416) BASOPHILS ABSOLUTE 0.01 K/ L 0.01-0.08 COUNT (BEAKER) (test code = 417) IMMATURE 0.90 % 0.00-1.00 GRANULOCYTES-RELATIVE PERCENT (BEAKER) (test code = 2801) POCT-GLUCOSE [id number] 20:25:44 Test Item Value Reference Range Interpretation Comments POC-GLUCOSE METER 136 mg/dL 70-110 H : TESTED A T BSC 6720 (BEAKER) (test code = KENYA Mcmullen [facility], 1538) [id number]: Music Therapy Specialist/Techni grisel ID = [id number] for SARAH DAVIS US DRAINAGE WITH CATH [id number] 17:43:17 [facility] : 1970 Sex: FPROCEDURE: Ultrasound guided drainage catheter placementProcedural PersonnelAttending physician(s): Adia Burk physician(s): NoneResident physician(s): NoneAdvanced practice provider(s): NonePre-procedure diagnosis: Liver abscessPost-procedure diagnosis: SameIndication: Pain associated with fluid collectionAdditional clinical history: NoneComplications: No immediate complications.IMPRESSION:Percutaneous placement of a 10 [place] drainage catheter into the hepaticdome fluid collection, yielding 100 mL of brown fluid.Plan: Drain to MARLENE bulb suction. PROCEDURE SUMMARY:- Visceral hepatic abscess drainage catheter placement under ultrasoundguidance- Additional procedure(s): NonePROCEDURE DETAILS:Pre-procedureConsent: Informed consent for the procedure including risks, benefitsand alternatives was obtained and time-out was perfo rmed prior to theprocedure.Preparation: The site was prepared and draped using maximal sterilebarrier technique including cutaneous antisepsis.Anesthesia/sedationLevel of anesthesia/sedation: Moderate sedation (conscious sedation) 1mgVersed, 50mcg fentanyl IVAnesthesia/sedation administered by: Independent trained observer underattending supervision with continuous monitoring of the patient?s levelofconsciousness and physiologic statusTotal intra-service sedation time (minutes): 30Drainage catheter placementThe patient was positioned supine. Initial imaging was performed. Localanesthesia was administered. The fluid collection was accessed usingtrocar technique and a drainage catheter was placed. Position of thedrainage catheter within the fluid collection was confirmed. - Initial imaging findings: Hepatic dome fluid collection- Drainage catheter placed: 10Fr Cook multipurpose- External cathetersecurement: Non-absorbable suture- Post-drainage imaging findings: Near-complete drainage of the fluidcollectionContrastContrast agent: NoneContrast volume (mL): 0Radiation DoseNone. Ultrasound only.This exam was performed according to the departmental dose-optimizationprogram which includes automatedexposure control, adjustment of the mAand/or kV according to patient size and/or use of iterativereconstruction technique.Additional DetailsAdditional description of procedure: NoneEquipment details: NoneSpecimens removed: Aspirated fluid was sent for analysis.Estimated blood loss (mL): Less than 10Standardized report: SIR_DrainPlacement_v3AttestationSigner name: Sandy Bishop attest that I was presentfor the entire procedure. I reviewed thestored images and agree with the report as written.Electronically Signed By: Sandy Ramirez04/03/2023 17:45 CDTWorkstation Name: [id number] 16:15:12 Test Item Value Reference Range Interpretation Comments POC-GLUCOSE METER 112 mg/dL 70-110 H : TESTED A T [facility] 6720 ([employer]) (test code [facility], = 1538) 22153: Music Therapy Specialist/Techni grisel ID = [id number] for LEWI S -Jesus, LATAND MAXIMINO POCT-GLUCOSE [id number] 12:23:56 Test Item Value Reference Range Interpretation Comments POC-GLUCOSE METER 130 mg/dL 70-110 H : TESTED A T [facility] 6720 ([employer]) (test code [facility], = 1538) 12206: Music Therapy Specialist/Techni grisel ID = [id number] for LEWI S -Jesus, LATAND MAXIMINO Venous doppler legs [id number] 10:21:44PV LAB - Lower Extremities DVT Study Demographics Patient Name APRYL GARCÍA [id number] Age 53 Visit Number [id number] Gender Female Accession Number [id number] Date of 1970 Referring Dillan Monte Room Number 734 Physician MD Olga Equipment Or Machinery Cleaner Carmela Arceo T Interpreting Physician MATEO Chen Fellow Ronnie Umana, MDProcedureType of Study: Veins: Lower Extremities DVT Study, VENOUS DOPPLER LEG, BILATERAL.Indications for Study:Bilateral legswelling.Patient Status:TODAY.Study Location:Portable.Technical Quality:Adequate visualization.Risk FactorsHistory of Disease+ + + --+!Diagnosis !Date !Comments !+ + + --+!History/Risk Factors: !04/02/2023!Cancer !! ! !Leg swelling !+ -------+ + +ImpressionsRight Impression1. There is no deep venous obstruction in the common femoral, profundafemoral, femoral, popliteal, posterior tibial or peroneal veins.2. The great saphenous vein is not visualized.Left Impression1. There is no deep venous obstruction in the common femoral, profundafemoral, femoral, popliteal, posterior tibial or peroneal veins.2. Thegreat saphenous vein is not visualized. Conclusions Summary Venous duplex imaging and compression ofthe bilateral lower extremities were performed. The veins were adequately visualized. The bilateral venous systems were patent and compressible with no evidence of thrombus. The venous Doppler waveforms were phasic with respiration . Signature --- Velocities are measured in cm/s ; Diameters are measured in [facility] [id number] 08:06:51 Test Item Value Reference Range Interpretation Comments POC-GLUCOSE METER 96 mg/dL 70-110 : TESTED A T [facility] 6720 (BEAKER) (test code = [place], 1538) 7[address]: Music Therapy Specialist/Techni grisel ID = [id number] for DEEPTHI Kumar CBC W/PLT COUNT & AUTO [id number] 06:26:15 Test Item Value Reference Range Interpretation Comments WHITE BLOOD CELL COUNT 10.5 K/ L 3.5-10.5 (BEAKER) (test code = 775) RED BLOOD CELL COUNT 3.46 M/ L 3.93-5.22 L (BEAKER) (test code = 761) HEMOGLOBIN (BEAKER) 8.4 GM/DL 11.2-15.7 L (test code = 410) HEMATOCRIT (BEAKER) 26.8 % 34.1-44.9 L (test code = 411) MEAN CORPUSCULAR VOLUME 78 fL 79-95 L (BEAKER) (test code = 753) MEAN CORPUSCULAR 24.3 pg 25.6-32.2 L HEMOGLOBIN (BEAKER) (test code = 751) MEAN CORPUSCULAR 31.3 GM/DL 32.2-35.5 L HEMOGLOBIN CONC (BEAKER) (test code = 752) RED CELL DISTRIBUTION 21.6 % 11.7-14.4 H WIDTH (BEAKER) (test code = 412) PLATELET COUNT (BEAKER) 97 K/CU MM 150-450 L Rele ase result per (test code = 756) [id number] MEAN PLATELET VOLUME Unable to report due (BEAKER) (test code = to abn ormal Platelet 754) population distribution. NUCLEATED RED BLOOD 0 /100 WBC 0-0 CELLS (BEAKER) (test code = 413) NEUTROPHILS RELATIVE 86 % PERCENT (BEAKER) (test code = 429) LYMPHOCYTES RELATIVE 5 % PERCENT (BEAKER) (test code = 430) MONOCYTES RELATIVE 8 % PERCENT (BEAKER) (test code = 431) EOSINOPHILS RELATIVE 0 % PERCENT (BEAKER) (test code = 432) BASOPHILS RELATIVE 0 % PERCENT (BEAKER) (test code = 437) NEUTROPHILS ABSOLUTE 9.03 K/ L 1.56-6.13 H COUNT (BEAKER) (test code = 670) LYMPHOCYTES ABSOLUTE 0.52 K/ L 1.18-3.74 L COUNT (BEAKER) (test code = 414) MONOCYTES ABSOLUTE 0.82 K/ L 0.24-0.36 H COUNT (BEAKER) (test code = 415) EOSINOPHILS ABSOLUTE 0.00 K/ L 0.04-0.36 L COUNT (BEAKER) (test code = 416) BASOPHILS ABSOLUTE 0.02 K/ L 0.01-0.08 COUNT (BEAKER) (test code = 417) IMMATURE 0.70 % 0.00-1.00 GRANULOCYTES-RELATIVE PERCENT (BEAKER) (test code = 2801) COMPREHENSIVE METABOLIC [id number] 06:14:43 Test Item Value Reference Range Interpretation Comments TOTAL PROTEIN 6.0 gm/dL 6.0-8.3 (BEAKER) (test code = 770) ALBUMIN (BEAKER) 2.3 g/dL 3.5-5.0 L (test code = 1145) ALKALINE 673 U/L 40-150 H PHOSPHATASE (BEAKER) (test code = 346) BILIRUBIN TOTAL 4.1 mg/dL 0.2-1.2 H (BEAKER) (test code = 377) SODIUM (BEAKER) 135 meq/L 136-145 L (test code = 381) POTASSIUM (BEAKER) 3.8 meq/L 3.5-5.1 (test code = 379) CHLORIDE (BEAKER) 102 meq/L 98-107 (test code = 382) CO2 (BEAKER) (test 26 meq/L 22-29 code = 355) BLOOD UREA 11 mg/dL 7-21 NITROGEN (BEAKER) (test code = 354) CREATININE 0.44 mg/dL 0.57-1.25 L (BEAKER) (test code = 358) GLUCOSE RANDOM 91 mg/dL 70-105 (BEAKER) (test code = 652) CALCIUM (BEAKER) 7.8 mg/dL 8.4-10.2 L (test code = 697) AST (SGOT) 55 U/L 5-34 H (BEAKER) (test code = 353) ALT (SGPT) 36 U/L 6-55 (BEAKER) (test code = 347) EGFR (BEAKER) 116 Interpretatio n of eGFR (test code = [...] not appl icable for dialysis patien ts Music Therapy Specialist ID - ADMINSpecimen slightly [id number] 06:14:30 Test Item Value Reference Range Interpretation Comments MAGNESIUM (BEAKER) (test code = 1.7 mg/dL 1.6-2.6 627) Music Therapy Specialist ID - [id number] 06:14:30 Test Item Value Reference Range Interpretation Comments PHOSPHORUS (BEAKER) (test code = 2.9 mg/dL 2.3-4.7 604) Music Therapy Specialist ID - ADMINPOCT-GLUCOSE [id number] 22:22:22 Test Item Value Reference Range Interpretation Comments POC-GLUCOSE METER 118 mg/dL 70-110 H : TESTED A T [facility] 6720 (BEAKER) (test code = KENYA Mcmullen [facility], 1538) 78350: Music Therapy Specialist/Techni grisel ID = [id number] for SISSY XAVIER SARAH POCT-GLUCOSE [id number] 17:25:42 Test Item Value Reference Range Interpretation Comments POC-GLUCOSE METER 110 mg/dL 70-110 : TESTED A T [facility] 6720 (BEAKER) (test code [facility], = 1538) 38858: Music Therapy Specialist/Techni grisel ID = [id number] for ATYLOR Mccall DEEPTHI Joseph POCT-GLUCOSE [id number] 11:30:01 Test Item Value Reference Range Interpretation Comments POC-GLUCOSE METER 135 mg/dL 70-110 H : TESTED A T [facility] 6720 (BEAKER) (test code [facility], = 1538) 58094: Music Therapy Specialist/Techni grisel ID = [id number] for DEEPTHI Kumar POCT-GLUCOSE [id number] 08:17:13 Test Item Value Reference Range Interpretation Comments POC-GLUCOSE METER 141 mg/dL 70-110 H : [facility] ([facility] (test code [facility], = 1538) 27479: Music Therapy Specialist/Techni grisel ID = [id number] for DEEPTHI Kumar BLOOD [id number] 07:00:09 Test Item Value Reference Range Interpretation Comments CULTURE (BEAKER) (test No growth in 5 days code = 1095) The specimen volume collected for this blood culture was below the optimum (10 mL per bottle or 20 mL total). Use of lower volumes may adversely affect recovery and/or detection times of some organisms.BLOOD [id number] 07:00:09 Test Item Value Reference Range Interpretation Comments CULTURE (BEAKER) (test No growth in 5 days code = 1095) The specimen volume collected for this blood culture was below the optimum (10 mL per bottle or 20 mL total). Use of lower volumes may adversely affect recovery and/or detection times of some organisms.COMPREHENSIVE METABOLIC PANEL 2023-04-02 04:33:24 Test Item Value Reference Range Interpretation Comments TOTAL PROTEIN 5.4 gm/dL 6.0-8.3 L (BEAKER) (test code = 770) ALBUMIN (BEAKER) 2.0 g/dL 3.5-5.0 L (test code = 1145) ALKALINE 426 U/L 40-150 H PHOSPHATASE (BEAKER) (test code = 346) BILIRUBIN TOTAL 4.1 mg/dL 0.2-1.2 H (BEAKER) (test code = 377) SODIUM (BEAKER) 133 meq/L 136-145 L (test code = 381) POTASSIUM (BEAKER) 4.2 meq/L 3.5-5.1 (test code = 379) CHLORIDE (BEAKER) 100 meq/L 98-107 (test code = 382) CO2 (BEAKER) (test 26 meq/L 22-29 code = 355) BLOOD UREA 7 mg/dL 7-21 NITROGEN (BEAKER) (test code = 354) CREATININE 0.45 mg/dL 0.57-1.25 L (BEAKER) (test code = 358) GLUCOSE RANDOM 152 mg/dL 70-105 H (BEAKER) (test code = 652) CALCIUM (BEAKER) 7.6 mg/dL 8.4-10.2 L (test code = 697) AST (SGOT) 37 U/L 5-34 H (BEAKER) (test code = 353) ALT (SGPT) 29 U/L 6-55 (BEAKER) (test code = 347) EGFR (BEAKER) 115 Interpretatio n of eGFR (test code = [...] not appl icable for dialysis patien ts Music Therapy Specialist ID - ADMINSpecimen slightly [id number] 04:32:14 Test Item Value Reference Range Interpretation Comments MAGNESIUM (BEAKER) (test code = 1.9 mg/dL 1.6-2.6 627) Music Therapy Specialist ID - [id number] 04:32:14 Test Item Value Reference Range Interpretation Comments PHOSPHORUS (BEAKER) (test code = 3.3 mg/dL 2.3-4.7 604) Music Therapy Specialist ID - ADMINCBC W/PLT COUNT & AUTO [id number] 04:08:58 Test Item Value Reference Range Interpretation Comments WHITE BLOOD CELL COUNT 5.5 K/ L 3.5-10.5 (BEAKER) (test code = 775) RED BLOOD CELL COUNT 2.72 M/ L 3.93-5.22 L (BEAKER) (test code = 761) HEMOGLOBIN (BEAKER) 6.8 GM/DL 11.2-15.7 L (test code = 410) HEMATOCRIT (BEAKER) 21.0 % 34.1-44.9 L (test code = 411) MEAN CORPUSCULAR VOLUME 77 fL 79-95 L (BEAKER) (test code = 753) MEAN CORPUSCULAR 25.0 pg 25.6-32.2 L HEMOGLOBIN (BEAKER) (test code = 751) MEAN CORPUSCULAR 32.4 GM/DL 32.2-35.5 HEMOGLOBIN CONC (BEAKER) (test code = 752) RED CELL DISTRIBUTION 21.4 % 11.7-14.4 H WIDTH (BEAKER) (test code = 412) PLATELET COUNT (BEAKER) 62 K/CU MM 150-450 L (test code = 756) MEAN PLATELET VOLUME Unable to report due (BEAKER) (test code = to abn ormal Platelet 754) population distribution. NUCLEATED RED BLOOD 0 /100 WBC 0-0 CELLS (BEAKER) (test code = 413) NEUTROPHILS RELATIVE 88 % PERCENT (BEAKER) (test code = 429) LYMPHOCYTES RELATIVE 6 % PERCENT (BEAKER) (test code = 430) MONOCYTES RELATIVE 4 % PERCENT (BEAKER) (test code = 431) EOSINOPHILS RELATIVE 0 % PERCENT (BEAKER) (test code = 432) BASOPHILS RELATIVE 0 % PERCENT (BEAKER) (test code = 437) NEUTROPHILS ABSOLUTE 4.83 K/ L 1.56-6.13 COUNT (BEAKER) (test code = 670) LYMPHOCYTES ABSOLUTE 0.35 K/ L 1.18-3.74 L COUNT (BEAKER) (test code = 414) MONOCYTES ABSOLUTE 0.24 K/ L 0.24-0.36 COUNT (BEAKER) (test code = 415) EOSINOPHILS ABSOLUTE 0.00 K/ L 0.04-0.36 L COUNT (BEAKER) (test code = 416) BASOPHILS ABSOLUTE 0.00 K/ L 0.01-0.08 L COUNT (BEAKER) (test code = 417) IMMATURE 0.90 % 0.00-1.00 GRANULOCYTES-RELATIVE PERCENT (BEAKER) (test code = 2801) POCT-GLUCOSE [id number] 20:58:44 Test Item Value Reference Range Interpretation Comments POC-GLUCOSE METER 183 mg/dL 70-110 H : TESTED A T [facility] 6720 (BEAKER) (test code = [place], 1538) 68484: Music Therapy Specialist/Techni grisel ID = [id number] for Or danza, Rhyss POCT-GLUCOSE [id number] 17:49:02 Test Item Value Reference Range Interpretation Comments POC-GLUCOSE METER 116 mg/dL 70-110 H : TESTED A T [facility] 6720 (BEAKER) (test code = [place], 1538) 09927: Music Therapy Specialist/Techni grisel ID = [id number] for HOSSEIN PRADO URINALYSIS W/ REFLEX URINE [id number] 17:47:51 Test Item Value Reference Range Interpretation Comments COLOR (BEAKER) (test code = 470) Dark Yellow CLARITY (BEAKER) (test code = Cloudy 469) SPECIFIC GRAVITY UA (BEAKER) 1.031 1.001-1.035 (test code = 468) PH UA (BEAKER) (test code = 467) 6.0 5.0-8.0 PROTEIN UA (BEAKER) (test code = 50 mg/dL Negative A 464) GLUCOSE UA (BEAKER) (test code = Negative Negative 365) KETONES UA (BEAKER) (test code = 10 mg/dL Negative A 371) BILIRUBIN UA (BEAKER) (test code Positive Negative A = 462) BLOOD UA (BEAKER) (test code = Negative Negative 461) NITRITE UA (BEAKER) (test code = Negative Negative 465) LEUKOCYTE ESTERASE UA (BEAKER) Trace Negative A (test code = 466) UROBILINOGEN UA (BEAKER) (test 12 0.2-1.0 H code = 463) RBC UA (BEAKER) (test code = 519) 7 /HPF WBC UA (BEAKER) (test code = 520) 7 /HPF BACTERIA (BEAKER) (test code = Rare 517) MUCUS (BEAKER) (test code = 1574) Rare SQUAMOUS EPITHELIAL (BEAKER) 66 /HPF (test code = 516) YEAST (BEAKER) (test code = 1585) Rare SOURCE(BEAKER) (test code = 2795) Music Therapy Specialist ID - [auto]Music Therapy Specialist ID - techFL Endoscopic Retrograde [id number] 15:17:06This is a non-reportable study with no Radiologist dictation. Please refer to your PACS to review images, or Doc Flowsheets for documentation on studies without images.[facility] [id number] 15:17:06 [facility] 1970 Sex: FThis is a non- reportable study with no Radiologist dictation. Please refer to your PACS to review images, or Doc Flowsheets for documentation on studies without images.CT ABDOMEN/PELVIS WITH IV [id number] 12:13:27 [facility] 1970 Sex: FTECHNIQUE: CT of the abdomen and pelvis with and intravenous contrastand WITHOUT oral contrast. Dose modulation, iterative reconstruction,and/or weight-based adjustment of the mA/kV was utilized to reduce theradiation dose to as low as reasonably achievable.INDICATION: Hepatobiliary cancer, surveillance.COMPARISON: CTs dating back to the 03/24/2023.FINDINGS:LOWER THORAX: The partially visualized central venous catheter has itstip in the mid SVC. Mild bibasilar atelectasis.HEPATOBILIARY: There is increasing biliary ductal dilation in segment V.Metallic and plastic common bile duct stents are present inthe commonbile, common hepatic, and right intrahepatic bile ducts. The plasticright intrahepatic bile duct stent has been retracted.The perihepatic abscess which now contains a drainage catheter hasdecreased in size but is still present. An abscess in segment VIII isunable to measure on coronal imagesbut measures 7.1 x 5.8 cm in segmentVIII, previously 5.2 x 3.1 cm. Additional abscess along the anteriorportion of segment IV measures 4.9 x 3.2 cm, previously 3 x 1.3 cm.An additional hypodensity in segment VIII measures 1.4 cm, unchanged andlikely an abscess. A hypodensity in segment V measures 1.6 cm,unchanged.A mass which is centered around the marily hepatis invades the centralliver and measures 5.5 x 5 x 7.3 cm.SPLEEN: 14.1 cm splenomegaly.PANCREAS: No focal masses or ductal dilatation.ADRENALS: No adrenal nodules.KIDNEYS/URETERS: No hydronephrosis, stones, or masses.PELVIC ORGANS/BLADDER: A simple appearing cyst measures 1.2 cm. Nofollow-up imaging is recommended for this finding. Normal CT appearanceof the left ovary.PERITONEUM/RETROPERITONEUM: Small-volume free fluid in the pelvis. NofreeairLYMPH NODES: No lymphadenopathy.VESSELS: Likely chronic occlusion of the main portal vein with cavernoustransformation.GI TRACT: No distention or wall thickening. Moderate diverticulosis ofthe sigmoid and left colon. Mild diverticulosis of the hepatic flexure.The appendix is normal.BONES AND SOFT TISSUES: Diffuse anasarca. Moderate degenerative facetchanges of the lower lumbar spine.IMPRESSION:1. There is increasing biliary ductal dilation in segment V. Thepreviously seen plastic right intrahepatic bile duct stent has beenslightly retracted.2. An abscess in segment VIII has increased in size and now measures7.1 x 5.8 cm.3. An abscess along segment IV has increased in size and measures 4.9 x3.2 cm.4. The perihepatic abscess which contains a drainage catheter hasdecreased in size.5. The 7.3 cm marily hepatis mass is consistent with the knowncholangiocarcinoma and unchanged.6. 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 Moderate splenomegaly.Electronically Signed By: Raza Fitzgerald04/01/2023 12:15 CDTWorkstation Name: [id number] 11:59:35 Test Item Value Reference Range Interpretation Comments POC-GLUCOSE METER 120 mg/dL 70-110 H : TESTED Melo Isabel [facility] 6799 (BEAKER) (test code = [place], 1538) 77[address]: Music Therapy Specialist/Techni grisel ID = [id number] for HOSSEIN PRADO COMPREHENSIVE METABOLIC [id number] 08:13:17 Test Item Value Reference Range Interpretation Comments TOTAL PROTEIN 5.9 gm/dL 6.0-8.3 L (BEAKER) (test code = 770) ALBUMIN (BEAKER) 2.2 g/dL 3.5-5.0 L (test code = 1145) ALKALINE 496 U/L 40-150 H PHOSPHATASE (BEAKER) (test code = 346) BILIRUBIN TOTAL 5.5 mg/dL 0.2-1.2 H (BEAKER) (test code = 377) SODIUM (BEAKER) 131 meq/L 136-145 L (test code = 381) POTASSIUM (BEAKER) 3.7 meq/L 3.5-5.1 (test code = 379) CHLORIDE (BEAKER) 96 meq/L 98-107 L (test code = 382) CO2 (BEAKER) (test 27 meq/L 22-29 code = 355) BLOOD UREA 7 mg/dL 7-21 NITROGEN (BEAKER) (test code = 354) CREATININE 0.47 mg/dL 0.57-1.25 L (BEAKER) (test code = 358) GLUCOSE RANDOM 110 mg/dL 70-105 H (BEAKER) (test code = 652) CALCIUM (BEAKER) 7.5 mg/dL 8.4-10.2 L (test code = 697) AST (SGOT) 73 U/L 5-34 H (BEAKER) (test code = 353) ALT (SGPT) 41 U/L 6-55 (BEAKER) (test code = 347) EGFR (BEAKER) 114 Interpretatio n of eGFR (test code = 1092) mL/min/1.[address] age Description sq m Result G1 Nataliya l or high >=90 G2 Mildly decreased 60-89 G3a Mildl y to moderately 45-5 9 G3b Moderately to s everely 30-44 G4 Sever ly decreased 15-29 G5 Kidney failure <15Repo rted eGFR is based on the CKD-EPI 2020 equation t hat does not use a race coefficientEsti mated GFR is not as accur ate as Creatinine Roya henley in predicting glom erular filtration rate . Estimated GFR is not appl icable for dialysis patien ts Music Therapy Specialist ID - BCSpecimen moderately ictericPOCT-GLUCOSE [id number] 07:48:26 Test Item Value Reference Range Interpretation Comments POC-GLUCOSE METER 112 mg/dL 70-110 H : TESTED A T [facility] 6720 (BEAKER) (test code = K[place], 1538) 350[address]: Music Therapy Specialist/Techni grisel ID = [id number] for HOSSEIN PRADO [id number] 07:04:09 Test Item Value Reference Range Interpretation Comments PHOSPHORUS (BEAKER) (test code = 2.8 mg/dL 2.3-4.7 604) Music Therapy Specialist ID - [id number] 07:04:08 Test Item Value Reference Range Interpretation Comments MAGNESIUM (BEAKER) (test code = 1.8 mg/dL 1.6-2.6 627) Music Therapy Specialist ID - BCCBC W/PLT COUNT & AUTO [id number] 06:39:04 Test Item Value Reference Range Interpretation Comments WHITE BLOOD CELL COUNT 13.3 K/ L 3.5-10.5 H (BEAKER) (test code = 775) RED BLOOD CELL COUNT 2.92 M/ L 3.93-5.22 L (BEAKER) (test code = 761) HEMOGLOBIN (BEAKER) 7.2 GM/DL 11.2-15.7 L (test code = 410) HEMATOCRIT (BEAKER) 21.9 % 34.1-44.9 L (test code = 411) MEAN CORPUSCULAR VOLUME 75 fL 79-95 L (BEAKER) (test code = 753) MEAN CORPUSCULAR 24.7 pg 25.6-32.2 L HEMOGLOBIN (BEAKER) (test code = 751) MEAN CORPUSCULAR 32.9 GM/DL 32.2-35.5 HEMOGLOBIN CONC (BEAKER) (test code = 752) RED CELL DISTRIBUTION 21.2 % 11.7-14.4 H WIDTH (BEAKER) (test code = 412) PLATELET COUNT (BEAKER) 70 K/CU MM 150-450 L (test code = 756) MEAN PLATELET VOLUME Unable to report due (BEAKER) (test code = to abn ormal Platelet 754) population distribution. NUCLEATED RED BLOOD 0 /100 WBC 0-0 CELLS (BEAKER) (test code = 413) NEUTROPHILS RELATIVE 87 % PERCENT (BEAKER) (test code = 429) LYMPHOCYTES RELATIVE 4 % PERCENT (BEAKER) (test code = 430) MONOCYTES RELATIVE 8 % PERCENT (BEAKER) (test code = 431) EOSINOPHILS RELATIVE 0 % PERCENT (BEAKER) (test code = 432) BASOPHILS RELATIVE 0 % PERCENT (BEAKER) (test code = 437) NEUTROPHILS ABSOLUTE 11.60 K/ L 1.56-6.13 H COUNT (BEAKER) (test code = 670) LYMPHOCYTES ABSOLUTE 0.52 K/ L 1.18-3.74 L COUNT (BEAKER) (test code = 414) MONOCYTES ABSOLUTE 1.00 K/ L 0.24-0.36 H COUNT (BEAKER) (test code = 415) EOSINOPHILS ABSOLUTE 0.02 K/ L 0.04-0.36 L COUNT (BEAKER) (test code = 416) BASOPHILS ABSOLUTE 0.01 K/ L 0.01-0.08 COUNT (BEAKER) (test code = 417) IMMATURE 1.10 % 0.00-1.00 H GRANULOCYTES-RELATIVE PERCENT (BEAKER) (test code = 2801) POCT-GLUCOSE [id number] 22:01:26 Test Item Value Reference Range Interpretation Comments POC-GLUCOSE METER 166 mg/dL 70-110 H : TESTED A T [facility] 6720 (BEAKER) (test code = [facility], 153) 51396: Music Therapy Specialist/Techni grisel ID = [id number] for Or Parveen medinas POCT-GLUCOSE [id number] 16:15:41 Test Item Value Reference Range Interpretation Comments POC-GLUCOSE METER 150 mg/dL 70-110 H : TESTED A T [facility] 6720 (BEAKER) (test code = [facility], 153) 07708: Music Therapy Specialist/Techni grisel ID = [id number] for TE VINNIE, HOSSEIN POCT-GLUCOSE [id number] 12:00:11 Test Item Value Reference Range Interpretation Comments POC-GLUCOSE METER 112 mg/dL 70-110 H : TESTED A T [facility] 6720 (BEAKER) (test code = KENYA Mcmullen [place], 1538) 52915: Music Therapy Specialist/Techni grisel ID = [id number] for HOSSEIN PRADO (CELLAVISION MANUAL DIFF)2023-03-31 09:49:05 Test Item Value Reference Range Interpretation Comments NEUTROPHILS - REL 87 % (CELLAVISION)(BEAKER) (test code = 2816) LYMPHOCYTES - REL 2 % (CELLAVISION)(BEAKER) (test code = 2817) MONOCYTES - REL 11 % (CELLAVISION)(BEAKER) (test code = 2818) NEUTROPHILS - ABS 11.05 K/ul 1.56-6.13 H (CELLAVISION)(BEAKER) (test code = 2830) LYMPHOCYTES - ABS 0.25 K/ul 1.18-3.74 L (CELLAVISION)(BEAKER) (test code = 2831) MONOCYTES - ABS 1.40 K/uL 0.24-0.36 H (CELLAVISION)(BEAKER) (test code = 2832) TOTAL COUNTED (BEAKER) (test code 100 = 1351) WBC MORPHOLOGY (BEAKER) (test code Normal = 487) PLT MORPHOLOGY (BEAKER) (test code Normal = 486) OVALOCYTES (BEAKER) (test code = 1+ few 477) TEAR DROP CELLS (BEAKER) (test 1+ few code = 481) PLATELET CONCENTRATION Decreased (CELLAVISION)(BEAKER) (test code = 3438) Music Therapy Specialist ID - [id number] W/PLT COUNT & AUTO [id number] 09:49:04 Test Item Value Reference Range Interpretation Comments WHITE BLOOD CELL COUNT 12.7 K/ L 3.5-10.5 H (BEAKER) (test code = 775) RED BLOOD CELL COUNT 3.32 M/ L 3.93-5.22 L (BEAKER) (test code = 761) HEMOGLOBIN (BEAKER) 8.0 GM/DL 11.2-15.7 L (test code = 410) HEMATOCRIT (BEAKER) 25.6 % 34.1-44.9 L (test code = 411) MEAN CORPUSCULAR VOLUME 77 fL 79-95 L (BEAKER) (test code = 753) MEAN CORPUSCULAR 24.1 pg 25.6-32.2 L HEMOGLOBIN (BEAKER) (test code = 751) MEAN CORPUSCULAR 31.3 GM/DL 32.2-35.5 L HEMOGLOBIN CONC (BEAKER) (test code = 752) RED CELL DISTRIBUTION 20.7 % 11.7-14.4 H WIDTH (BEAKER) (test code = 412) PLATELET COUNT (BEAKER) 58 K/CU MM 150-450 L (test code = 756) MEAN PLATELET VOLUME Unable to report due (BEAKER) (test code = to abn ormal Platelet 754) population distribution. NUCLEATED RED BLOOD 0 /100 WBC 0-0 CELLS (BEAKER) (test code = 413) POCT-GLUCOSE [id number] 07:23:48 Test Item Value Reference Range Interpretation Comments POC-GLUCOSE METER 115 mg/dL 70-110 H : TESTED A T [facility] 6720 (BEAKER) (test code = KEN[place] QUINONES [place], 1538) [id number]: Music Therapy Specialist/Techni grisel ID = [id number] for HOSSEIN PRADO COMPREHENSIVE METABOLIC [id number] 04:45:12 Test Item Value Reference Range Interpretation Comments TOTAL PROTEIN 6.7 gm/dL 6.0-8.3 (BEAKER) (test code = 770) ALBUMIN (BEAKER) 2.5 g/dL 3.5-5.0 L (test code = 1145) ALKALINE 566 U/L 40-150 H PHOSPHATASE (BEAKER) (test code = 346) BILIRUBIN TOTAL 6.5 mg/dL 0.2-1.2 H (BEAKER) (test code = 377) SODIUM (BEAKER) 128 meq/L 136-145 L (test code = 381) POTASSIUM (BEAKER) 3.8 meq/L 3.5-5.1 (test code = 379) CHLORIDE (BEAKER) 96 meq/L 98-107 L (test code = 382) CO2 (BEAKER) (test 21 meq/L 22-29 L code = 355) BLOOD UREA 7 mg/dL 7-21 NITROGEN (BEAKER) (test code = 354) CREATININE 0.49 mg/dL 0.57-1.25 L (BEAKER) (test code = 358) GLUCOSE RANDOM 122 mg/dL 70-105 H (BEAKER) (test code = 652) CALCIUM (BEAKER) 8.0 mg/dL 8.4-10.2 L (test code = 697) AST (SGOT) 67 U/L 5-34 H (BEAKER) (test code = 353) ALT (SGPT) 45 U/L 6-55 (BEAKER) (test code = 347) EGFR (BEAKER) 113 Interpretati on of eGFR (test code = 1092) mL/min/1.73 [...] not appl icable for dialysis patien ts Music Therapy Specialist ID - ADMINSpecimen moderately [id number] 04:45:11 Test Item Value Reference Range Interpretation Comments MAGNESIUM (BEAKER) (test code = 2.0 mg/dL 1.6-2.6 627) Music Therapy Specialist ID - [id number] 04:45:11 Test Item Value Reference Range Interpretation Comments PHOSPHORUS (BEAKER) (test code = 2.9 mg/dL 2.3-4.7 604) Music Therapy Specialist ID - ADMINPOCT-GLUCOSE [id number] 01:06:16 Test Item Value Reference Range Interpretation Comments POC-GLUCOSE METER 138 mg/dL 70-110 H : TESTED A T [facility] 6720 (BEAKER) (test code = [facility], 153) [address]: Music Therapy Specialist/Techni grisel ID = [id number] for KONRAD GUERRERO POCT-GLUCOSE [id number] 18:02:39 Test Item Value Reference Range Interpretation Comments POC-GLUCOSE METER 109 mg/dL 70-110 : TESTED A T [facility] 6720 (BEAKER) (test code = [facility], 153) 56191: Music Therapy Specialist/Techni grisel ID = [id number] for DANICA YING POCT-GLUCOSE [id number] 12:31:40 Test Item Value Reference Range Interpretation Comments POC-GLUCOSE METER 90 mg/dL 70-110 : TESTED A T [facility] 6720 (BEAKER) (test code = KEN[facility] Mcm[facility] [place], 1538) [address]: Music Therapy Specialist/Techni grisel ID = [id number] for DANICA UREÑA POCT-GLUCOSE [id number] 08:31:33 Test Item Value Reference Range Interpretation Comments POC-GLUCOSE METER 98 mg/dL 70-110 : TESTED A T [facility] 6720 (BEAKER) (test code = KENYA Mcmullen [place], 1538) [address]: Music Therapy Specialist/Techni grisel ID = [id number] for DANICA UREÑA COMPREHENSIVE METABOLIC [id number] 05:48:22 Test Item Value Reference Range Interpretation Comments TOTAL PROTEIN 6.1 gm/dL 6.0-8.3 (BEAKER) (test code = 770) ALBUMIN (BEAKER) 2.4 g/dL 3.5-5.0 L (test code = 1145) ALKALINE 477 U/L 40-150 H PHOSPHATASE (BEAKER) (test code = 346) BILIRUBIN TOTAL 5.2 mg/dL 0.2-1.2 H (BEAKER) (test code = 377) SODIUM (BEAKER) 131 meq/L 136-145 L (test code = 381) POTASSIUM (BEAKER) 3.9 meq/L 3.5-5.1 (test code = 379) CHLORIDE (BEAKER) 98 meq/L 98-107 (test code = 382) CO2 (BEAKER) (test 23 meq/L 22-29 code = 355) BLOOD UREA 9 mg/dL 7-21 NITROGEN (BEAKER) (test code = 354) CREATININE 0.48 mg/dL 0.57-1.25 L (BEAKER) (test code = 358) GLUCOSE RANDOM 88 mg/dL 70-105 (BEAKER) (test code = 652) CALCIUM (BEAKER) 7.7 mg/dL 8.4-10.2 L (test code = 697) AST (SGOT) 103 U/L 5-34 H (BEAKER) (test code = 353) ALT (SGPT) 47 U/L 6-55 (BEAKER) (test code = 347) EGFR (BEAKER) 113 Interpretatio n of eGFR (test code = [...] not appl icable for dialysis patien ts Music Therapy Specialist ID - EMSpecimen moderately [id number] 05:42:08 Test Item Value Reference Range Interpretation Comments MAGNESIUM (BEAKER) (test code = 2.0 mg/dL 1.6-2.6 627) Music Therapy Specialist ID - [id number] 05:42:08 Test Item Value Reference Range Interpretation Comments PHOSPHORUS (BEAKER) (test code = 2.7 mg/dL 2.3-4.7 604) Music Therapy Specialist ID - EMCBC W/PLT COUNT & AUTO [id number] 05:23:38 Test Item Value Reference Range Interpretation Comments WHITE BLOOD CELL COUNT 11.0 K/ L 3.5-10.5 H (BEAKER) (test code = 775) RED BLOOD CELL COUNT 3.24 M/ L 3.93-5.22 L (BEAKER) (test code = 761) HEMOGLOBIN (BEAKER) 8.2 GM/DL 11.2-15.7 L (test code = 410) HEMATOCRIT (BEAKER) 25.2 % 34.1-44.9 L (test code = 411) MEAN CORPUSCULAR 78 fL 79-95 L Discordant results VOLUME (BEAKER) (test compar ed to previous, code = 753) clinical correl ation required. MEAN CORPUSCULAR 25.3 pg 25.6-32.2 L HEMOGLOBIN (BEAKER) (test code = 751) MEAN CORPUSCULAR 32.5 GM/DL 32.2-35.5 HEMOGLOBIN CONC (BEAKER) (test code = 752) RED CELL DISTRIBUTION 20.1 % 11.7-14.4 H WIDTH (BEAKER) (test code = 412) PLATELET COUNT 54 K/CU MM 150-450 L (BEAKER) (test code = 756) MEAN PLATELET VOLUME Unable to report due (BEAKER) (test code = to abn ormal Platelet 754) population distribution. NUCLEATED RED BLOOD 0 /100 WBC 0-0 CELLS (BEAKER) (test code = 413) NEUTROPHILS RELATIVE 84 % PERCENT (BEAKER) (test code = 429) LYMPHOCYTES RELATIVE 6 % PERCENT (BEAKER) (test code = 430) MONOCYTES RELATIVE 8 % PERCENT (BEAKER) (test code = 431) EOSINOPHILS RELATIVE 0 % PERCENT (BEAKER) (test code = 432) BASOPHILS RELATIVE 0 % PERCENT (BEAKER) (test code = 437) NEUTROPHILS ABSOLUTE 9.29 K/ L 1.56-6.13 H COUNT (BEAKER) (test code = 670) LYMPHOCYTES ABSOLUTE 0.70 K/ L 1.18-3.74 L COUNT (BEAKER) (test code = 414) MONOCYTES ABSOLUTE 0.83 K/ L 0.24-0.36 H COUNT (BEAKER) (test code = 415) EOSINOPHILS ABSOLUTE 0.03 K/ L 0.04-0.36 L COUNT (BEAKER) (test code = 416) BASOPHILS ABSOLUTE 0.01 K/ L 0.01-0.08 COUNT (BEAKER) (test code = 417) IMMATURE 1.50 % 0.00-1.00 H GRANULOCYTES-RELATIVE PERCENT (BEAKER) (test code = 2801) POCT-GLUCOSE [id number] 00:22:28 Test Item Value Reference Range Interpretation Comments POC-GLUCOSE METER 101 mg/dL 70-110 : TESTED A T [facility] 6720 (BEAKER) (test code = K[place], 1538) [address]: Music Therapy Specialist/Techni grisel ID = [id number] for MILO OSEGUERA HEMOGLOBIN AND [id number] 21:33:18 Test Item Value Reference Range Interpretation Comments HEMOGLOBIN (BEAKER) (test code = 9.0 GM/DL 11.2-15.7 L 410) HEMATOCRIT (BEAKER) (test code = 28.2 % 34.1-44.9 L 411) Music Therapy Specialist ID - 6000POCT-GLUCOSE [id number] 18:11:31 Test Item Value Reference Range Interpretation Comments POC-GLUCOSE METER 145 mg/dL 70-110 H : TESTED A T [facility] 6720 (BEAKER) (test code = [facility], 1538) [address]: Music Therapy Specialist/Techni grisel ID = [id number] for JULIA DANIEL POCT-GLUCOSE [id number] 14:36:34 Test Item Value Reference Range Interpretation Comments POC-GLUCOSE METER 115 mg/dL 70-110 H : TESTED A T [facility] 6720 (BEAKER) (test code = [facility], 1538) [address]: Music Therapy Specialist/Techni grisel ID = [id number] for Vincent rcia, [place] BLOOD [id number] 10:34:20 Test Item Value Reference Interpretation Comments Range CULTURE (BEAKER) (test ESCHERICHIA COLI A F rom Aerobic And code = 1095) Anaerobic Bottl es Escherichia col i Amikacin (test code = S 1) Ampicillin + Sulbactam S (test code = 6) Aztreonam (test code = S 32) Cefepime (test code = S 51) Cefoxitin (test code = S 68) Ceftazidime (test code S = 27) Ceftriaxone (test code S = 52) Ertapenem (test code = S 38) Gentamicin (test code S = 18) Levofloxacin (test S code = 22) Meropenem (test code = S 34) Nitrofurantoin (test S code = 23) Piperacillin + S Tazobactam (test code = 29) Tetracycline (test S code = 2) Tobramycin (test code S = 25) Trimethoprim + S Sulfamethoxazole (test code = 47) CULTURE (BEAKER) (test A From Anaerobic code = 1095) Bottle Only Clostridium perfringens CULTURE (BEAKER) (test A From Aerobic And code = 1095) Anaerobic Bottl es Enterobacter cloacae complex GRAM STAIN RESULT From anaerobic (BEAKER) (test code = bottle only: gram 1123) positive rods GRAM STAIN RESULT From aerobic and (BEAKER) (test code = anaerobic 163971) bottles: gram negative rods POCT-GLUCOSE [id number] 08:43:43 Test Item Value Reference Range Interpretation Comments POC-GLUCOSE METER 91 mg/dL 70-110 : TESTED A T [facility] 6720 (BEAKER) (test code = [facility], 1538) [address]: Music Therapy Specialist/Techni grisel ID = [id number] for JUAN J CIC, NADA POCT-GLUCOSE [id number] 08:02:41 Test Item Value Reference Range Interpretation Comments POC-GLUCOSE METER 102 mg/dL 70-110 : TESTED A T [facility] 6720 (BEAKER) (test code = [facility]EN[facility] Mcm[facility] [place], 1538) [address]: Music Therapy Specialist/Techni grisel ID = [id number] for JULIA DANIEL CBC W/PLT COUNT & AUTO [id number] 07:05:02 Test Item Value Reference Range Interpretation Comments WHITE BLOOD CELL COUNT 12.2 K/ L 3.5-10.5 H (BEAKER) (test code = 775) RED BLOOD CELL COUNT 2.60 M/ L 3.93-5.22 L (BEAKER) (test code = 761) HEMOGLOBIN (BEAKER) 6.3 GM/DL 11.2-15.7 L (test code = 410) HEMATOCRIT (BEAKER) 19.2 % 34.1-44.9 L (test code = 411) MEAN CORPUSCULAR VOLUME 74 fL 79-95 L (BEAKER) (test code = 753) MEAN CORPUSCULAR 24.2 pg 25.6-32.2 L HEMOGLOBIN (BEAKER) (test code = 751) MEAN CORPUSCULAR 32.8 GM/DL 32.2-35.5 HEMOGLOBIN CONC (BEAKER) (test code = 752) RED CELL DISTRIBUTION 19.9 % 11.7-14.4 H WIDTH (BEAKER) (test code = 412) PLATELET COUNT (BEAKER) 41 K/CU MM 150-450 L (test code = 756) MEAN PLATELET VOLUME Unable to report due (BEAKER) (test code = to abn ormal Platelet 754) population distribution. NUCLEATED RED BLOOD 0 /100 WBC 0-0 CELLS (BEAKER) (test code = 413) NEUTROPHILS RELATIVE 87 % PERCENT (BEAKER) (test code = 429) LYMPHOCYTES RELATIVE 4 % PERCENT (BEAKER) (test code = 430) MONOCYTES RELATIVE 7 % PERCENT (BEAKER) (test code = 431) EOSINOPHILS RELATIVE 0 % PERCENT (BEAKER) (test code = 432) BASOPHILS RELATIVE 0 % PERCENT (BEAKER) (test code = 437) NEUTROPHILS ABSOLUTE 10.54 K/ L 1.56-6.13 H COUNT (BEAKER) (test code = 670) LYMPHOCYTES ABSOLUTE 0.53 K/ L 1.18-3.74 L COUNT (BEAKER) (test code = 414) MONOCYTES ABSOLUTE 0.87 K/ L 0.24-0.36 H COUNT (BEAKER) (test code = 415) EOSINOPHILS ABSOLUTE 0.04 K/ L 0.04-0.36 COUNT (BEAKER) (test code = 416) BASOPHILS ABSOLUTE 0.01 K/ L 0.01-0.08 COUNT (BEAKER) (test code = 417) IMMATURE 1.40 % 0.00-1.00 H GRANULOCYTES-RELATIVE PERCENT (BEAKER) (test code = 2801) COMPREHENSIVE METABOLIC [id number] 05:57:35 Test Item Value Reference Range Interpretation Comments TOTAL PROTEIN 5.4 gm/dL 6.0-8.3 L Specimen sligh tly (BEAKER) (test hemolyzed code = 770) ALBUMIN (BEAKER) 2.1 g/dL 3.5-5.0 L Specimen sl ightly (test code = 1145) hemolyzed ALKALINE 297 U/L 40-150 H PHOSPHATASE (BEAKER) (test code = 346) BILIRUBIN TOTAL 3.5 mg/dL 0.2-1.2 H Specimen sli ghtly (BEAKER) (test hemolyzed code = 377) SODIUM (BEAKER) 129 meq/L 136-145 L (test code = 381) POTASSIUM (BEAKER) 3.9 meq/L 3.5-5.1 Specimen slightly (test code = 379) hemolyzed CHLORIDE (BEAKER) 101 meq/L 98-107 (test code = 382) CO2 (BEAKER) (test 20 meq/L 22-29 L code = 355) BLOOD UREA 9 mg/dL 7-21 NITROGEN (BEAKER) (test code = 354) CREATININE 0.45 mg/dL 0.57-1.25 L Specimen slight ly (BEAKER) (test hemolyzed code = 358) GLUCOSE RANDOM 91 mg/dL 70-105 (BEAKER) (test code = 652) CALCIUM (BEAKER) 7.1 mg/dL 8.4-10.2 L (test code = 697) AST (SGOT) 65 U/L 5-34 H Specimen slight ly (BEAKER) (test hemolyzed code = 353) ALT (SGPT) 36 U/L 6-55 Specimen slight ly (BEAKER) (test hemolyzed code = 347) EGFR (BEAKER) 115 Interpretatio n of eGFR (test code = [...] not appl icable for dialysis patien ts Music Therapy Specialist ID - adminSpecimen slightly [id number] 05:51:47 Test Item Value Reference Range Interpretation Comments PHOSPHORUS (BEAKER) 2.6 mg/dL 2.3-4.7 Specimen slightly (test code = 604) hemolyzed Music Therapy Specialist ID - [id number] 05:51:46 Test Item Value Reference Range Interpretation Comments MAGNESIUM (BEAKER) 1.9 mg/dL 1.6-2.6 Specimen slightly (test code = 627) hemolyzed Music Therapy Specialist ID - adminPOCT-GLUCOSE [id number] 00:01:16 Test Item Value Reference Range Interpretation Comments POC-GLUCOSE METER 132 mg/dL 70-110 H : TESTED A T [facility] 6720 (BEAKER) (test code = [facility] Mcm[facility], 1538) [address]: Music Therapy Specialist/Techni grisel ID = [id number] for GABRIELLE MaxHARSH VALLEJO POCT-GLUCOSE [id number] 16:25:35 Test Item Value Reference Range Interpretation Comments POC-GLUCOSE METER 174 mg/dL 70-110 H : TESTED A T [facility] 6720 (BEAKER) ([facility], = 1538) [address]: Music Therapy Specialist/Techni grisel ID = [id number] for DEEPTHI Kumar MAXIMINO OSMOLALITY, [id number] 16:13:18 Test Item Value Reference Range Interpretation Comments OSMOLALITY, SERUM (BEAKER) (test 272 mOsm/kg 275-295 L code = 615) CBC W/PLT COUNT & AUTO [id number] 16:04:08 Test Item Value Reference Range Interpretation Comments WHITE BLOOD CELL COUNT 16.1 K/ L 3.5-10.5 H (BEAKER) (test code = 775) RED BLOOD CELL COUNT 3.32 M/ L 3.93-5.22 L (BEAKER) (test code = 761) HEMOGLOBIN (BEAKER) 7.8 GM/DL 11.2-15.7 L (test code = 410) HEMATOCRIT (BEAKER) 24.6 % 34.1-44.9 L (test code = 411) MEAN CORPUSCULAR VOLUME 74 fL 79-95 L (BEAKER) (test code = 753) MEAN CORPUSCULAR 23.5 pg 25.6-32.2 L HEMOGLOBIN (BEAKER) (test code = 751) MEAN CORPUSCULAR 31.7 GM/DL 32.2-35.5 L HEMOGLOBIN CONC (BEAKER) (test code = 752) RED CELL DISTRIBUTION 19.9 % 11.7-14.4 H WIDTH (BEAKER) (test code = 412) PLATELET COUNT (BEAKER) 45 K/CU MM 150-450 L (test code = 756) MEAN PLATELET VOLUME Unable to report due (BEAKER) (test code = to abn ormal Platelet 754) population distribution. NUCLEATED RED BLOOD 0 /100 WBC 0-0 CELLS (BEAKER) (test code = 413) NEUTROPHILS RELATIVE 89 % PERCENT (BEAKER) (test code = 429) LYMPHOCYTES RELATIVE 4 % PERCENT (BEAKER) (test code = 430) MONOCYTES RELATIVE 5 % PERCENT (BEAKER) (test code = 431) EOSINOPHILS RELATIVE 0 % PERCENT (BEAKER) (test code = 432) BASOPHILS RELATIVE 0 % PERCENT (BEAKER) (test code = 437) NEUTROPHILS ABSOLUTE 14.39 K/ L 1.56-6.13 H COUNT (BEAKER) (test code = 670) LYMPHOCYTES ABSOLUTE 0.57 K/ L 1.18-3.74 L COUNT (BEAKER) (test code = 414) MONOCYTES ABSOLUTE 0.79 K/ L 0.24-0.36 H COUNT (BEAKER) (test code = 415) EOSINOPHILS ABSOLUTE 0.02 K/ L 0.04-0.36 L COUNT (BEAKER) (test code = 416) BASOPHILS ABSOLUTE 0.03 K/ L 0.01-0.08 COUNT (BEAKER) (test code = 417) IMMATURE 1.90 % 0.00-1.00 H GRANULOCYTES-RELATIVE PERCENT (BEAKER) (test code = 2801) Sodium, random [id number] 15:32:24 Test Item Value Reference Range Interpretation Comments Sodium Urine (test 25 meq/L code = 2955-3) SOPHIA (test code = Reference Range: No SOPHIA) NormalsOperator ID - [facility] [id number] 15:32:24 Test Item Value Reference Range Interpretation Comments Sodium Urine (test 25 meq/L code = 2955-3) SOPHIA (test code = Reference Range: No SOPHIA) NormalsOperator ID - [facility], RANDOM [id number] 15:32:24 Test Item Value Reference Range Interpretation Comments SODIUM URINE (BEAKER) (test code = 25 meq/L 243) Reference Range: No NormalsOperator ID - BSOsmolality, [id number] 14:48:05 Test Item Value Reference Range Interpretation Comments Osmolality, Ur (test code 632 See_Comment [ Automated message] = 2695-5) The system [employer] generated this result transmitted ref erence range: 50-1,200 mOsm/kg mOsm/kg . The reference range was not used to int erpret this result as normal/abnormal . Lab Interpretation (test Normal code = 69001-2) [facility] Center[facility]sm[facility], [id number] 14:48:05 Test Item Value Reference Range Interpretation Comments Osmolality, Ur (test code 632 See_Comment [ Automated message] = 2695-5) The system [employer] generated this result transmitted ref erence range: 50-1,200 mOsm/kg mOsm/kg . The reference range was not used to int erpret this result as normal/abnormal . Lab Interpretation (test Normal code = 77824-8) [facility], [id number] 14:48:05 Test Item Value Reference Range Interpretation Comments OSMOLALITY URINE 632 mOsm/kg See_Comment [Automated message] (BEAKER) (test code = The sy stem which 614) generated this result transmitted ref erence range: 50-1,200 mOsm/kg. The reference range was not used to int erpret this result as normal/abnormal . POCT-GLUCOSE [id number] 12:20:17 Test Item Value Reference Range Interpretation Comments POC-GLUCOSE METER 133 mg/dL 70-110 H : TESTED A T [facility] 6720 (BEAKER) (test code [facility], = 1538) [address]: Music Therapy Specialist/Techni grisel ID = [id number] for DEEPTHI Kumar MAXIMINO WOUND CULTURE + GRAM [id number] 10:56:11 Test Item Value Reference Interpretation Comments Range CULTURE (BANNER) (test ESCHERICHIA COLI A 4 + Escherichia code = 1095) coli Amikacin (test code = S 1) Ampicillin + Sulbactam S (test code = 6) Aztreonam (test code = S 32) Cefepime (test code = S 51) Cefoxitin (test code = S 68) Ceftazidime (test code S = 27) Ceftriaxone (test code S = 52) Ertapenem (test code = S 38) Gentamicin (test code S = 18) Levofloxacin (test S code = 22) Meropenem (test code = S 34) Nitrofurantoin (test S code = 23) Piperacillin + S Tazobactam (test code = 29) Tetracycline (test S code = 2) Tobramycin (test code S = 25) Trimethoprim + S Sulfamethoxazole (test code = 47) CULTURE (BANNER) (test ENTEROBACTER A 2+ En terobacter code = 1095) CLOACAE COMPLEX cloacae complexThis is a corrected organism result . Previous result was Enterobacte r cloacae on 03/28/2023 at 09 13 CDT Amikacin (test code = S 1) Aztreonam (test code = S 32) Cefepime (test code = S 51) Cefoxitin (test code = R 68) Ceftazidime (test code S = 27) Ceftriaxone (test code S = 52) Ertapenem (test code = S 38) Gentamicin (test code S = 18) Levofloxacin (test S code = 22) Meropenem (test code = S 34) Nitrofurantoin (test S code = 23) Piperacillin + S Tazobactam (test code = 29) Tetracycline (test S code = 2) Tobramycin (test code S = 25) Trimethoprim + S Sulfamethoxazole (test code = 47) CULTURE (BEAKER) (test ENTEROCOCCUS A 4+ En terococcus code = 1095) GALLINARUM gallinarum Ampicillin (test code S = 26) Linezolid (test code = S 40) Vancomycin (test code R = 13) GRAM STAIN RESULT <1+ WBCs (BEAKER) (test code = 1123) GRAM STAIN RESULT 2+ gram variable (BEAKER) (test code = rods [id number]) BILIRUBIN, [id number] 10:06:22 Test Item Value Reference Range Interpretation Comments BILIRUBIN DIRECT (BEAKER) (test 3.3 mg/dL 0.1-0.5 H code = 706) Music Therapy Specialist ID - donaldPOCT-GLUCOSE [id number] 07:55:58 Test Item Value Reference Range Interpretation Comments POC-GLUCOSE METER 88 mg/dL 70-110 : TESTED A T [facility] 6720 (BEAKER) (test code = [place], 1538) [address]: Music Therapy Specialist/Techni grisel ID = [id number] for TAYLOR DEEPTHI Morales MAXIMINO COMPREHENSIVE METABOLIC [id number] 05:58:59 Test Item Value Reference Range Interpretation Comments TOTAL PROTEIN 5.9 gm/dL 6.0-8.3 L (BEAKER) (test code = 770) ALBUMIN (BEAKER) 2.4 g/dL 3.5-5.0 L (test code = 1145) ALKALINE 209 U/L 40-150 H PHOSPHATASE (BEAKER) (test code = 346) BILIRUBIN TOTAL 4.4 mg/dL 0.2-1.2 H (BEAKER) (test code = 377) SODIUM (BEAKER) 130 meq/L 136-145 L (test code = 381) POTASSIUM (BEAKER) 3.8 meq/L 3.5-5.1 (test code = 379) CHLORIDE (BEAKER) 97 meq/L 98-107 L (test code = 382) CO2 (BEAKER) (test 23 meq/L 22-29 code = 355) BLOOD UREA 12 mg/dL 7-21 NITROGEN (BEAKER) (test code = 354) CREATININE 0.48 mg/dL 0.57-1.25 L (BEAKER) (test code = 358) GLUCOSE RANDOM 100 mg/dL 70-105 (BEAKER) (test code = 652) CALCIUM (BEAKER) 7.6 mg/dL 8.4-10.2 L (test code = 697) AST (SGOT) 53 U/L 5-34 H (BEAKER) (test code = 353) ALT (SGPT) 36 U/L 6-55 (BEAKER) (test code = 347) EGFR (BEAKER) 113 Interpretatio n of eGFR (test code = [...] not appl icable for dialysis patien ts Music Therapy Specialist ID - MARCOSpecimen slightly [id number] 05:25:13 Test Item Value Reference Range Interpretation Comments PHOSPHORUS (BEAKER) (test code = 3.0 mg/dL 2.3-4.7 604) Music Therapy Specialist ID - [id number] 05:25:12 Test Item Value Reference Range Interpretation Comments MAGNESIUM (BEAKER) (test code = 2.1 mg/dL 1.6-2.6 627) Music Therapy Specialist ID - MARCOCBC W/PLT COUNT & AUTO [id number] 04:58:47 Test Item Value Reference Range Interpretation Comments WHITE BLOOD CELL COUNT 11.7 K/ L 3.5-10.5 H (BEAKER) (test code = 775) RED BLOOD CELL COUNT 2.85 M/ L 3.93-5.22 L (BEAKER) (test code = 761) HEMOGLOBIN (BEAKER) 7.0 GM/DL 11.2-15.7 L (test code = 410) HEMATOCRIT (BEAKER) 21.7 % 34.1-44.9 L (test code = 411) MEAN CORPUSCULAR VOLUME 76 fL 79-95 L (BEAKER) (test code = 753) MEAN CORPUSCULAR 24.6 pg 25.6-32.2 L HEMOGLOBIN (BEAKER) (test code = 751) MEAN CORPUSCULAR 32.3 GM/DL 32.2-35.5 HEMOGLOBIN CONC (BEAKER) (test code = 752) RED CELL DISTRIBUTION 19.3 % 11.7-14.4 H WIDTH (BEAKER) (test code = 412) PLATELET COUNT (BEAKER) 39 K/CU MM 150-450 L (test code = 756) MEAN PLATELET VOLUME Unable to report due (BEAKER) (test code = to abn ormal Platelet 754) population distribution. NUCLEATED RED BLOOD 0 /100 WBC 0-0 CELLS (BEAKER) (test code = 413) NEUTROPHILS RELATIVE 86 % PERCENT (BEAKER) (test code = 429) LYMPHOCYTES RELATIVE 6 % PERCENT (BEAKER) (test code = 430) MONOCYTES RELATIVE 7 % PERCENT (BEAKER) (test code = 431) EOSINOPHILS RELATIVE 0 % PERCENT (BEAKER) (test code = 432) BASOPHILS RELATIVE 0 % PERCENT (BEAKER) (test code = 437) NEUTROPHILS ABSOLUTE 10.04 K/ L 1.56-6.13 H COUNT (BEAKER) (test code = 670) LYMPHOCYTES ABSOLUTE 0.65 K/ L 1.18-3.74 L COUNT (BEAKER) (test code = 414) MONOCYTES ABSOLUTE 0.77 K/ L 0.24-0.36 H COUNT (BEAKER) (test code = 415) EOSINOPHILS ABSOLUTE 0.01 K/ L 0.04-0.36 L COUNT (BEAKER) (test code = 416) BASOPHILS ABSOLUTE 0.01 K/ L 0.01-0.08 COUNT (BEAKER) (test code = 417) IMMATURE 1.70 % 0.00-1.00 H GRANULOCYTES-RELATIVE PERCENT (BEAKER) (test code = 2801) POCT-GLUCOSE [id number] 21:48:40 Test Item Value Reference Range Interpretation Comments POC-GLUCOSE METER 128 mg/dL 70-110 H : TESTED A T [facility] 67[facility] (BEAKER) (test code = KENYA SANTOS, 1538) [id number]: Music Therapy Specialist/Techni grisel ID = [id number] for SARAH DAVIS POCT-GLUCOSE [id number] 17:24:10 Test Item Value Reference Range Interpretation Comments POC-GLUCOSE METER 133 mg/dL 70-110 H : TESTED A T [facility] (BEAKER) (test code [facility], = 1538) [id number]: Music Therapy Specialist/Techni grisel ID = [id number] for Filomena Marquez cha POCT-GLUCOSE [id number] 11:58:35 Test Item Value Reference Range Interpretation Comments POC-GLUCOSE METER 143 mg/dL 70-110 H : TESTED Mel[facility] (BEAKER) (test code [facility], = 1538) [id number]: Music Therapy Specialist/Techni grisel ID = [id number] for Filomena Marquez cha BLOOD [id number] 10:43:05 Test Item Value Reference Range Interpretation Comments CULTURE A From Aerobic An d (BEAKER) (test Anaerobic Bot tles Same code = 1095) organism has be en isolated from cultures(s) of the same body site and collection date . Repeat identifi cation and susceptibil ity testing perform ed only after consultat ion with the [facility] microbiology laboratory.Refe r to previous cultur e ofEscherichia c [facility] GRAM STAIN From aerobic and RESULT (BEAKER) anaerobic (test code = bottles: gram 1123) negative rods The specimen volume collected for this blood culture was below the optimum (10 mL per bottle or 20 mL total). Use of lower volumes may adversely affect recovery and/or detection times of some organisms.POCT-GLUCOSE [id number] 07:37:06 Test Item Value Reference Range Interpretation Comments POC-GLUCOSE METER 105 mg/dL 70-110 : TESTED Melo Isabel [facility] (BEAKER) (test code [facility], = 1538) [id number]: Music Therapy Specialist/Techni grisel ID = [id number] for Filomena Marquez cha COMPREHENSIVE METABOLIC [id number] 05:32:07 Test Item Value Reference Range Interpretation Comments TOTAL PROTEIN 6.0 gm/dL 6.0-8.3 (BEAKER) (test code = 770) ALBUMIN (BEAKER) 2.5 g/dL 3.5-5.0 L (test code = 1145) ALKALINE 196 U/L 40-150 H PHOSPHATASE (BEAKER) (test code = 346) BILIRUBIN TOTAL 3.9 mg/dL 0.2-1.2 H (BEAKER) (test code = 377) SODIUM (BEAKER) 133 meq/L 136-145 L (test code = 381) POTASSIUM (BEAKER) 3.8 meq/L 3.5-5.1 (test code = 379) CHLORIDE (BEAKER) 99 meq/L 98-107 (test code = 382) CO2 (BEAKER) (test 23 meq/L 22-29 code = 355) BLOOD UREA 18 mg/dL 7-21 NITROGEN (BEAKER) (test code = 354) CREATININE 0.57 mg/dL 0.57-1.25 (BEAKER) (test code = 358) GLUCOSE RANDOM 103 mg/dL 70-105 (BEAKER) (test code = 652) CALCIUM (BEAKER) 7.6 mg/dL 8.4-10.2 L (test code = 697) AST (SGOT) 50 U/L 5-34 H (BEAKER) (test code = 353) ALT (SGPT) 35 U/L 6-55 (BEAKER) (test code = 347) EGFR (BEAKER) 109 Interpretatio n of eGFR (test code = [...] not appl icable for dialysis patien ts Music Therapy Specialist ID - PERCY WSpecimen slightly [id number] 05:27:19 Test Item Value Reference Range Interpretation Comments PHOSPHORUS (BEAKER) (test code = 3.7 mg/dL 2.3-4.7 604) Music Therapy Specialist ID - PERCY [id number] 05:27:18 Test Item Value Reference Range Interpretation Comments MAGNESIUM (BEAKER) (test code = 2.2 mg/dL 1.6-2.6 627) Music Therapy Specialist ID Darian GREER WCBC W/PLT COUNT & AUTO [id number] 04:55:16 Test Item Value Reference Range Interpretation Comments WHITE BLOOD CELL COUNT 13.3 K/ L 3.5-10.5 H (BEAKER) (test code = 775) RED BLOOD CELL COUNT 3.47 M/ L 3.93-5.22 L (BEAKER) (test code = 761) HEMOGLOBIN (BEAKER) 8.2 GM/DL 11.2-15.7 L (test code = 410) HEMATOCRIT (BEAKER) 25.4 % 34.1-44.9 L (test code = 411) MEAN CORPUSCULAR VOLUME 73 fL 79-95 L (BEAKER) (test code = 753) MEAN CORPUSCULAR 23.6 pg 25.6-32.2 L HEMOGLOBIN (BEAKER) (test code = 751) MEAN CORPUSCULAR 32.3 GM/DL 32.2-35.5 HEMOGLOBIN CONC (BEAKER) (test code = 752) RED CELL DISTRIBUTION 19.0 % 11.7-14.4 H WIDTH (BEAKER) (test code = 412) PLATELET COUNT (BEAKER) 42 K/CU MM 150-450 L (test code = 756) MEAN PLATELET VOLUME Unable to report due (BEAKER) (test code = to abn ormal Platelet 754) population distribution. NUCLEATED RED BLOOD 0 /100 WBC 0-0 CELLS (BEAKER) (test code = 413) NEUTROPHILS RELATIVE 86 % PERCENT (BEAKER) (test code = 429) LYMPHOCYTES RELATIVE 6 % PERCENT (BEAKER) (test code = 430) MONOCYTES RELATIVE 7 % PERCENT (BEAKER) (test code = 431) EOSINOPHILS RELATIVE 0 % PERCENT (BEAKER) (test code = 432) BASOPHILS RELATIVE 0 % PERCENT (BEAKER) (test code = 437) NEUTROPHILS ABSOLUTE 11.36 K/ L 1.56-6.13 H COUNT (BEAKER) (test code = 670) LYMPHOCYTES ABSOLUTE 0.76 K/ L 1.18-3.74 L COUNT (BEAKER) (test code = 414) MONOCYTES ABSOLUTE 0.90 K/ L 0.24-0.36 H COUNT (BEAKER) (test code = 415) EOSINOPHILS ABSOLUTE 0.00 K/ L 0.04-0.36 L COUNT (BEAKER) (test code = 416) BASOPHILS ABSOLUTE 0.01 K/ L 0.01-0.08 COUNT (BEAKER) (test code = 417) IMMATURE 1.90 % 0.00-1.00 H GRANULOCYTES-RELATIVE PERCENT (BEAKER) (test code = 7241) POCT-GLUCOSE [id number] 22:42:17 Test Item Value Reference Range Interpretation Comments POC-GLUCOSE METER 130 mg/dL 70-110 H : TESTED A T [facility] 6720 (BEAKER) (test code = [facility], 153) [address]: Music Therapy Specialist/Techni grisel ID = [id number] for SARAH DAVIS POCT-GLUCOSE [id number] 20:07:29 Test Item Value Reference Range Interpretation Comments POC-GLUCOSE METER 119 mg/dL 70-110 H : TESTED A T [facility] 6720 (BEAKER) (test code = [facility], 1538) [address]: Music Therapy Specialist/Techni grisel ID = [id number] for DANICA YING POCT-GLUCOSE [id number] 12:52:36 Test Item Value Reference Range Interpretation Comments POC-GLUCOSE METER 116 mg/dL 70-110 H : TESTED A T [facility] 6720 (BEAKER) (test code = [facility], 1538) [address]: Music Therapy Specialist/Techni grisel ID = [id number] for DANICA YING VANCOMYCIN LEVEL, [id number] 09:08:54 Test Item Value Reference Range Interpretation Comments VANCOMYCIN TROUGH (BEAKER) (test 17.2 ug/mL 10.0-20.0 code = 522) Music Therapy Specialist ID - EMCBC W/PLT COUNT & AUTO [id number] 08:25:31 Test Item Value Reference Range Interpretation Comments WHITE BLOOD CELL COUNT 9.8 K/ L 3.5-10.5 (BEAKER) (test code = 775) RED BLOOD CELL COUNT 3.11 M/ L 3.93-5.22 L (BEAKER) (test code = 761) HEMOGLOBIN (BEAKER) 7.5 GM/DL 11.2-15.7 L (test code = 410) HEMATOCRIT (BEAKER) 23.5 % 34.1-44.9 L (test code = 411) MEAN CORPUSCULAR VOLUME 76 fL 79-95 L (BEAKER) (test code = 753) MEAN CORPUSCULAR 24.1 pg 25.6-32.2 L HEMOGLOBIN (BEAKER) (test code = 751) MEAN CORPUSCULAR 31.9 GM/DL 32.2-35.5 L HEMOGLOBIN CONC (BEAKER) (test code = 752) RED CELL DISTRIBUTION 19.1 % 11.7-14.4 H WIDTH (BEAKER) (test code = 412) PLATELET COUNT (BEAKER) 37 K/CU MM 150-450 L (test code = 756) MEAN PLATELET VOLUME Unable to report due (BEAKER) (test code = to abn ormal Platelet 754) population distribution. NUCLEATED RED BLOOD 0 /100 WBC 0-0 CELLS (BEAKER) (test code = 413) (CELLAVISION MANUAL DIFF)2023-03-26 08:25:31 Test Item Value Reference Range Interpretation Comments NEUTROPHILS - REL 93 % (CELLAVISION)(BEAKER) (test code = 2816) LYMPHOCYTES - REL 1 % (CELLAVISION)(BEAKER) (test code = 2817) MONOCYTES - REL 5 % (CELLAVISION)(BEAKER) (test code = 2818) ATYPICAL LYMPHOCYTES - REL 1 % 0-0 H (CELLAVISION)(BEAKER) (test code = 2829) NEUTROPHILS - ABS 9.11 K/ul 1.56-6.13 H (CELLAVISION)(BEAKER) (test code = 2830) LYMPHOCYTES - ABS 0.10 K/ul 1.18-3.74 L (CELLAVISION)(BEAKER) (test code = 2831) MONOCYTES - ABS 0.49 K/uL 0.24-0.36 H (CELLAVISION)(BEAKER) (test code = 2832) ATYPICAL LYMPHOCYTES - ABS 0.10 K/uL 0.00-0.00 H (CELLAVISION)(BEAKER) (test code = 2858) TOTAL COUNTED (BEAKER) (test code 100 = 1351) WBC MORPHOLOGY (BEAKER) (test Normal code = 487) CLUMPED PLATELETS (BEAKER) (test Present code = 436) GIANT PLATELETS (BEAKER) (test Present code = 313) POLYCHROMATOPHILLIC RBCS(BEAKER) 3+ many (test code = 478) HYPOCHROMIA (BEAKER) (test code = 1+ few 963) ANISOCYTOSIS (BEAKER) (test code 1+ few = 961) POIKILOCYTES (BEAKER) (test code 2+ moderate = 966) ELLIPTOCYTES (BEAKER) (test code 1+ few = 962) PLATELET CONCENTRATION Decreased (CELLAVISION)(BEAKER) (test code = 3438) Music Therapy Specialist ID - [id number] ID - ansley Lassiter comments: Slide comments:POCT- GLUCOSE [id number] 08:13:01 Test Item Value Reference Range Interpretation Comments POC-GLUCOSE METER 116 mg/dL 70-110 H : TESTED A T [facility] 6720 (BEAKER) (test code = [place], 1538) [address]: Music Therapy Specialist/Techni grisel ID = [id number] for DANICA YING COMPREHENSIVE METABOLIC [id number] 05:29:32 Test Item Value Reference Range Interpretation Comments TOTAL PROTEIN 5.4 gm/dL 6.0-8.3 L (BEAKER) (test code = 770) ALBUMIN (BEAKER) 2.3 g/dL 3.5-5.0 L (test code = 1145) ALKALINE 127 U/L 40-150 PHOSPHATASE (BEAKER) (test code = 346) BILIRUBIN TOTAL 2.5 mg/dL 0.2-1.2 H (BEAKER) (test code = 377) SODIUM (BEAKER) 135 meq/L 136-145 L (test code = 381) POTASSIUM (BEAKER) 4.2 meq/L 3.5-5.1 (test code = 379) CHLORIDE (BEAKER) 102 meq/L 98-107 (test code = 382) CO2 (BEAKER) (test 23 meq/L 22-29 code = 355) BLOOD UREA 26 mg/dL 7-21 H NITROGEN (BEAKER) (test code = 354) CREATININE 0.53 mg/dL 0.57-1.25 L (BEAKER) (test code = 358) GLUCOSE RANDOM 136 mg/dL 70-105 H (BEAKER) (test code = 652) CALCIUM (BEAKER) 7.7 mg/dL 8.4-10.2 L (test code = 697) AST (SGOT) 36 U/L 5-34 H (BEAKER) (test code = 353) ALT (SGPT) 39 U/L 6-55 (BEAKER) (test code = 347) EGFR (BEAKER) 111 Interpretatio n of eGFR (test code = [...] not appl icable for dialysis patien ts Music Therapy Specialist ID - [id number] 05:24:36 Test Item Value Reference Range Interpretation Comments PHOSPHORUS (BEAKER) (test code = 4.1 mg/dL 2.3-4.7 604) Music Therapy Specialist ID - [id number] 05:24:35 Test Item Value Reference Range Interpretation Comments MAGNESIUM (BEAKER) (test code = 2.5 mg/dL 1.6-2.6 627) Music Therapy Specialist ID - EMPrepare Leuko-Red [id number] 23:55:00 Test Item Value Reference Range Interpretation Comments Unit ABO (test code = 8066226) O Pos UNIT NUMBER (test code = [id number] 934-0) Status (test code = 9813844) TX_TIMEINCHART Blood Bank Product (test code PLATELETS = 2263) PRODUCT CODE (test code = X2968S33 933-2) [facility] [id number] 23:55:00 Test Item Value Reference Range Interpretation Comments Unit ABO (test code = 7129528) O Pos UNIT NUMBER (test code = [id number] 934-0) Status (test code = 9604582) TX_TIMEINCHART Blood Bank Product (test code PLATELETS = 2263) PRODUCT CODE (test code = B8478P12 933-2) [facility] [id number] 23:21:06 Test Item Value Reference Range Interpretation Comments POC-GLUCOSE METER 169 mg/dL 70-110 H : TESTED A T [facility] 6720 (BEAKER) (test code = [place], 1538) [address]: Music Therapy Specialist/Techni grisel ID = [id number] for MILO OSEGUERA POCT-GLUCOSE [id number] 18:36:20 Test Item Value Reference Range Interpretation Comments POC-GLUCOSE METER 152 mg/dL 70-110 H : TESTED A T [facility] 6720 (BEAKER) (test code = [facility], 153) [address]: Music Therapy Specialist/Techni grisel ID = [id number] for MARY PETERSON POCT-GLUCOSE [id number] 11:29:33 Test Item Value Reference Range Interpretation Comments POC-GLUCOSE METER 195 mg/dL 70-110 H : TESTED A T [facility] 6720 (BEAKER) (test code = [facility], 1538) [address]: Music Therapy Specialist/Techni grisel ID = [id number] for MARY PETERSON POCT-GLUCOSE [id number] 07:47:36 Test Item Value Reference Range Interpretation Comments POC-GLUCOSE METER 170 mg/dL 70-110 H : TESTED A T [facility] 6720 (BEAKER) (test code = [facility], 153) [address]: Music Therapy Specialist/Techni grisel ID = [id number] for [facility], NADA CBC W/PLT COUNT & AUTO [id number] 07:32:55 Test Item Value Reference Range Interpretation Comments WHITE BLOOD CELL COUNT 7.6 K/ L 3.5-10.5 (BEAKER) (test code = 775) RED BLOOD CELL COUNT 3.12 M/ L 3.93-5.22 L (BEAKER) (test code = 761) HEMOGLOBIN (BEAKER) 7.4 GM/DL 11.2-15.7 L (test code = 410) HEMATOCRIT (BEAKER) 23.3 % 34.1-44.9 L (test code = 411) MEAN CORPUSCULAR VOLUME 75 fL 79-95 L (BEAKER) (test code = 753) MEAN CORPUSCULAR 23.7 pg 25.6-32.2 L HEMOGLOBIN (BEAKER) (test code = 751) MEAN CORPUSCULAR 31.8 GM/DL 32.2-35.5 L HEMOGLOBIN CONC (BEAKER) (test code = 752) RED CELL DISTRIBUTION 18.8 % 11.7-14.4 H WIDTH (BEAKER) (test code = 412) PLATELET COUNT (BEAKER) 32 K/CU MM 150-450 L (test code = 756) MEAN PLATELET VOLUME Unable to report due (BEAKER) (test code = to abn ormal Platelet 754) population distribution. NUCLEATED RED BLOOD 0 /100 WBC 0-0 CELLS (BEAKER) (test code = 413) (CELLAVISION MANUAL DIFF)2023-03-25 07:32:55 Test Item Value Reference Range Interpretation Comments NEUTROPHILS - REL 90 % (CELLAVISION)(BEAKER) (test code = 2816) LYMPHOCYTES - REL 2 % (CELLAVISION)(BEAKER) (test code = 2817) MONOCYTES - REL 2 % (CELLAVISION)(BEAKER) (test code = 2818) MYELOCYTES - REL 1 % 0-0 H (CELLAVISION)(BEAKER) (test code = 2822) BANDS - REL (CELLAVISION)(BEAKER) 5 % 0-10 (test code = 2826) NEUTROPHILS - ABS 6.84 K/ul 1.56-6.13 H (CELLAVISION)(BEAKER) (test code = 2830) LYMPHOCYTES - ABS 0.15 K/ul 1.18-3.74 L (CELLAVISION)(BEAKER) (test code = 2831) MONOCYTES - ABS 0.15 K/uL 0.24-0.36 L (CELLAVISION)(BEAKER) (test code = 2832) MYELOCYTES-ABS 0.08 K/uL 0.00-0.00 H (CELLAVISION)(BEAKER) (test code = 2837) BANDS - ABS (CELLAVISION)(BEAKER) 0.38 K/uL 0.00-0.80 (test code = 2840) TOTAL COUNTED (BEAKER) (test code 100 = 1351) WBC MORPHOLOGY (BEAKER) (test Normal code = 487) PLT MORPHOLOGY (BEAKER) (test Normal code = 486) POLYCHROMATOPHILLIC RBCS(BEAKER) 1+ few (test code = 478) HYPOCHROMIA (BEAKER) (test code = 2+ moderate 963) POIKILOCYTES (BEAKER) (test code 1+ few = 966) ELLIPTOCYTES (BEAKER) (test code 1+ few = 962) OVALOCYTES (BEAKER) (test code = 2+ moderate 477) ARTIFACT (CELLAVISION)(BEAKER) Present (test code = 3432) PLATELET CONCENTRATION Decreased (CELLAVISION)(BEAKER) (test code = 3438) Music Therapy Specialist ID - [id number] ID - Samantha OverholtUser comments: Slide comments: [id number] 06:51:23 Test Item Value Reference Range Interpretation Comments FERRITIN (BEAKER) (test code = 479.06 ng/mL 5.00-275.00 H 361) Music Therapy Specialist ID - EMIRON, TIBC, % SAT. (WITHOUT FERRITIN)2023-03-25 06:36:18 Test Item Value Reference Range Interpretation Comments IRON (BEAKER) (test code = 547) 21.0 ug/dL 40.0-160.0 L TOTAL IRON BINDING CAPACITY 193 ug/dL 250-450 L (BEAKER) (test code = 769) IRON % SATURATION (2) (BEAKER) 11 % 20-55 L (test code = 2590) Music Therapy Specialist ID - EMCOMPREHENSIVE METABOLIC [id number] 06:03:20 Test Item Value Reference Range Interpretation Comments TOTAL PROTEIN 5.6 gm/dL 6.0-8.3 L (BEAKER) (test code = 770) ALBUMIN (BEAKER) 2.4 g/dL 3.5-5.0 L (test code = 1145) ALKALINE 150 U/L 40-150 PHOSPHATASE (BEAKER) (test code = 346) BILIRUBIN TOTAL 5.0 mg/dL 0.2-1.2 H (BEAKER) (test code = 377) SODIUM (BEAKER) 133 meq/L 136-145 L (test code = 381) POTASSIUM (BEAKER) 4.1 meq/L 3.5-5.1 (test code = 379) CHLORIDE (BEAKER) 99 meq/L 98-107 (test code = 382) CO2 (BEAKER) (test 25 meq/L 22-29 code = 355) BLOOD UREA 26 mg/dL 7-21 H NITROGEN (BEAKER) (test code = 354) CREATININE 0.57 mg/dL 0.57-1.25 (BEAKER) (test code = 358) GLUCOSE RANDOM 187 mg/dL 70-105 H (BEAKER) (test code = 652) CALCIUM (BEAKER) 7.6 mg/dL 8.4-10.2 L (test code = 697) AST (SGOT) 48 U/L 5-34 H (BEAKER) (test code = 353) ALT (SGPT) 50 U/L 6-55 (BEAKER) (test code = 347) EGFR (BEAKER) 109 Interpretatio n of eGFR (test code = [...] not appl icable for dialysis patien ts Music Therapy Specialist ID - BSSpecimen moderately [id number] 06:02:04 Test Item Value Reference Range Interpretation Comments MAGNESIUM (BEAKER) (test code = 2.6 mg/dL 1.6-2.6 627) Music Therapy Specialist ID - [id number] 06:02:04 Test Item Value Reference Range Interpretation Comments PHOSPHORUS (BEAKER) (test code = 3.5 mg/dL 2.3-4.7 604) Music Therapy Specialist ID - BSUS abdomen [id number] 23:35:17EXAM/TECHNIQUE: Limited ultrasound of the abdomen, right upper quadrant. INDICATION: ABDOMINAL PAIN52 -year-old female with history of diabetes, hypertension,cholangiocarcinoma, history of liver abscessstatus post drainagecatheter by IR status post removal sent for c/f cholangitis. Pt has RUQabd pain,fever, elevated bili COMPARISON: Same day CT body. FINDINGS: Liver: There are several heterogeneous fluid collections, some whichdemonstrate dirty shadowing, suggestive of internal air. Collection nearthe right hepatic anterior capsule measures 5.9 x 2.8 x 4.2 cm withoutsignificant adjacent vascularity. Right inferior hepatic collectionmeasures 2.0 x 1.9 x 1.6 cm. An additional right inferior hepaticc ollection measures 5.7 x 3.7 x 3.7 cm. The main portal vein is patentmeasuring 10 mm. Biliary: Contracted with mural thickening without cholelithiasis orpositive sonographic Trevino sign. The common bile duct measures 6 mm. Pancreas: The visualized pancreas is unremarkable in appearance. Right kidney: T he right kidney measures 11.7 x 4.8 x 4.9 cm. Nohydronephrosis or focal mass.[facility] CenterUS ABDOMEN [id number] 23:35:17 [facility] 1970 Sex: FEXAM/TECHNIQUE: Limited ultrasound of the abdomen, right upper quadrant.INDICATION: ABDOMINAL MOOC45-imru-otw female with history of diabetes, hypertension,cholangiocarcinoma, history of liver abscess status post drainagecatheter by IR status post removal sent for c/f cholangitis. Pt has RUQabd pain, fever, elevated biliCOMPARISON: Same day CT body.FINDINGS: Liver: There are several heterogeneous fluidcollections, some whichdemonstrate dirty shadowing, suggestive of internal air. Collection nearthe right hepatic anterior capsule measures 5.9 x 2.8 x 4.2 cm withoutsignificant adjacent vascularity. Rig ht inferior hepatic collectionmeasures 2.0 x 1.9 x 1.6 cm. An additional right inferior hepaticcollection measures 5.7 x 3.7 x 3.7 cm. The main portal vein is patentmeasuring 10 mm.Biliary: Contracted with mural thickening without cholelithiasis orpositive sonographic Trevino sign. The common bile ductmeasures 6 mm.Pancreas: The visualized pancreas is unremarkable in appearance.Right kidney: The right kidney measures 11.7 x 4.8 x 4.9 cm. Nohydronephrosis or focal mass.IMPRESSION:Several complex fluid and air collections are present in the liver,redemonstrated from same day CT body, concerning for ab scesses.Electronically Signed By: Abel Burton 23:37 CDTWorkstation Name: [id number] CULTURE IDENTIFICATION [id number] 22:42:20 Test Item Value Reference Interpretation Comments Range MCR-1 (BEAKER) (test Not detected Not detected Note: A ntimicrobial code = 9165346614) resistanc e can occur via multiple mechanisms. A N ot Detected result for antimicrobial resistance gene (s) does not indica te antimicrobial susceptibility. Subculturing is required for sp ecies identification and susceptibility testing of isol ates. CTX-M (BEAKER) (test Not detected Not detected Note: A ntimicrobial code = 6839234239) resistanc e can occur via multiple mechanisms. A N ot Detected result for antimicrobial resistance gene (s) does not indica te antimicrobial susceptibility. Subculturing is required for sp ecies identification and susceptibility testing of isol ates. IMP ([place]) (test code = Not detected Not Detected Note: Antimicrobial 5074150048) resistance can occur via multiple mechanisms. A N ot Detected result for antimicrobial resistance gene (s) does not indica te antimicrobial susceptibility. Subculturing is required for sp ecies identification and susceptibility testing of isol ates. KPC (BKR) (test code Not detected Not detected Note: A ntimicrobial = 1254057888) resistance can occur via multiple mechanisms. A N ot Detected result for antimicrobial resistance gene (s) does not indica te antimicrobial susceptibility. Subculturing is required for sp ecies identification and susceptibility testing of isol ates. NDM (BKR) (test code Not detected Not Detected Note: A ntimicrobial = 3785317480) resistance can occur via multiple mechanisms. A N ot Detected result for antimicrobial resistance gene (s) does not indica te antimicrobial susceptibility. Subculturing is required for sp ecies identification and susceptibility testing of isol ates. OXA-48-LIKE (BKR) Not detected Not Detected Note: Anti microbial (test code = resistance can occur 9903853756) via multiple mechanisms. A N ot Detected result for antimicrobial resistance gene (s) does not indica te antimicrobial susceptibility. Subculturing is required for sp ecies identification and susceptibility testing of isol ates. VIM (BKR) (test code Not detected Not detected Note: A ntimicrobial = 1668458625) resistance can occur via multiple mechanisms. A N ot Detected result for antimicrobial resistance gene (s) does not indica te antimicrobial susceptibility. Subculturing is required for sp ecies identification and susceptibility testing of isol ates. MEC A/C ([place]) (test Non Applicable Not detected code = 0206187721) MEC A/C AND MREJ Non Applicable Not Detected (MRSA) [place] (test code = 5774348227) VAN A/B (VANCOMYCIN Non Applicable Not detected RESISTANCE) (test code = 2695686827) ENTEROCOCCUS FAECALIS Not detected Not detected (BKR) (test code = 5096984041) ENTEROCOCCUS FAECIUM Not detected Not detected (BKR) (test code = 8430823671) LISTERIA Not detected Not detected MONOCYTOGENES (test code = 6416667) STAPHYLOCOCCUS (test Not detected Not detected code = 7915509) STAPHYLOCOCCUS AUREUS Not detected Not detected (test code = 3831918) STAPHYLOCOCCUS Not detected Not detected EPIDERMIDIS ([place]) (test code = 2266105898) STAPHYLOCOCCUS Not detected Not detected LUGDENENSIS (BKR) (test code = 2769218629) STREPTOCOCCUS (test Not detected Not detected code = 20160528) STREPTOCOCCUS Not detected Not detected AGALACTIAE (GROUP B) (test code = 2463202) STREPTOCOCCUS Not detected Not detected PNEUMONIAE (test code = 1491113) STREPTOCOCCUS Not detected Not detected PYOGENES (GROUP A) (test code = 4448448) ACINETOBACTER Not detected Not detected CALCOACETICUS-CATHY II COMPLEX (BKR) (test code = 7712) BACTEROIDES FRAGILIS Not detected Not detected ([place]) (test code = 5984658606) ENTEROBACTERALES Detected Not detected A (test code = 4621724521) ENTEROBACTER CLOACOE Detected Not detected A No mech anisms of COMPLEX (test code = resista nce tested on ) this panel were detected. First line therapy: Ertape nem or Cefepime. No te 1: Enterobacter cl oacae routinely harbo rs AmpC resistance . First, second a nd third generatio n Cephalosporins, Ampicillin, Amoxicillin, Ampicillin-sulb actam , Amoxicillin-cla vulan ate, Piperacillin-ta zobac jordan, and Aztreo nam should be avoid ed. Note 2: While C TX-M is the most com mon ESBL enzyme, ot her ESBL enzymes ma y be present and are not detected on thi s panel. ESCHERICHIA COLI Detected Not detected A No mechanis ms of (test code = 2754007) resist ance tested on this panel were detected.First line therapy: Ceftriaxone.De- escal ate based on susceptibilitie s Note: While CTX -M is the most common ESBL enzyme, other E SBL enzymes may be present and are not detected on thi s panel. KLEBSIELLA AEROGENES Not detected Not detected (BKR) (test code = 4685325293) KLEBSIELLA OXYTOCA Not detected Not detected (test code = 2845565) KLEBSIELLA PNEUMONIAE Not detected Not detected GROUP (test code = 8956028451) PROTEUS (test code = Not detected Not detected 3622151) SALMONELLA SPECIES Not detected Not detected ([place]) (test code = 2664618989) SERRATIA MARCESCENS Not detected Not detected (test code = 5193142) HAEMOPHILUS Not detected Not detected INFLUENZAE (test code = 2806905) NEISSERIA Not detected Not detected MENINGITIDIS (test code = 9857088) PSEUDOMONAS Not detected Not detected AERUGINOSA-BEAKER (test code = 4937097) STENOTROPHOMONAS Not detected Not detected MALTOPHILIA (BKR) (test code = 8515044882) JERROD ALBICANS Not detected Not detected (test code = 3126397) JERROD AURIS ([place]) Not detected Not detected (test code = 3517634429) JERROD GLABRATA Not detected Not detected (test code = 3370464) JERROD KRUSEI (test Not detected Not detected code = 4137700) JERROD PARAPSILOSIS Not detected Not detected (test code = 7945780) JERROD TROPICALIS Not detected Not detected (BKR) (test code = 3885828) CRYPTOCOCCUS Not detected Not detected NEOFORMANS/GATTII (test code = 6191031918) Other bacteria and resistance markers not targeted by this PCR panel cannot be excluded; therefore clinical correlation and follow up of serology, culture results, and other molecular studies is required. The results are not intended to be used as the sole means for clinical diagnosis or patient management decisions. This sample was tested at the [facility] using the [employer] Blood Culture ID Panel. It is FDA cleared and has been verified and approved by the [facility] for clinical use. This laboratory is CLIA-certified and College ofAmerican Pathologists (CAP)-accredited to perform high complexity testing.POCT-GLUCOSE [id number] 22:05:53 Test Item Value Reference Range Interpretation Comments POC-GLUCOSE METER 196 mg/dL 70-110 H : TESTED A T [facility] 6720 (BEAKER) (test code = [place] Mcm[place] [facility], 1538) [address]: Music Therapy Specialist/Techni grisel ID = [id number] for MILO OSEGUERA CREATINE KINASE (CK)2023-03-24 19:13:47 Test Item Value Reference Range Interpretation Comments CREATINE KINASE TOTAL (BEAKER) (test 21 U/L 29-200 L code = 380) Music Therapy Specialist ID - [id number], [id number] 19:13:46 Test Item Value Reference Range Interpretation Comments BILIRUBIN DIRECT (BEAKER) (test 3.9 mg/dL 0.1-0.5 H code = 706) Music Therapy Specialist ID - BSPOCT-GLUCOSE [id number] 18:52:31 Test Item Value Reference Range Interpretation Comments POC-GLUCOSE METER 164 mg/dL 70-110 H : TESTED A T [facility] 6720 (BEAKER) (test code [facility], = 1538) [address]56[address]: Music Therapy Specialist/Techni grisel ID = [id number] for Aline Stewart [id number] 18:27:35 [facility] : 1970 Sex: FThis is a non- reportable study with no Radiologist dictation. Please refer to your PACS to review images, or Doc Flowsheets for documentation on studies without images. POCT-GLUCOSE [id number] 16:59:07 Test Item Value Reference Range Interpretation Comments POC-GLUCOSE METER 143 mg/dL 70-110 H : [facility] (BEAKER) (test code = [place], 1538) [address]: Music Therapy Specialist/Techni grisel ID = [id number] for MARTINA ZAMUDIO CARCINOEMBRYONIC ANTIGEN (CEA)2023-03-24 16:58:27 Test Item Value Reference Range Interpretation Comments CARCINOEMBRYONIC ANTIGEN (BEAKER) 1.7 ng/mL 0.0-5.0 (test code = 685) Music Therapy Specialist ID - BSCT ABDOMEN/PELVIS WITH IV [id number] 14:49:06 [facility] : 1970 Sex: FCT of the abdomen and pelvis, with contrastClinical History: Unlisted Reason for [id number] female with history of diabetes, hypertension,cholangiocarcinoma, history of liver abscess status post drainagecatheter by IR status post removal sent for c/f cholangitis. Pt has RUQabd pain, fever, elevatedbiliTechnique: CT of the abdomen and pelvis is performed with intravenouscontrast administration. This exam was performed according to ourdepartmental dose optimization program which includes automatedexposurecontrol, adjustment of the mA and/or kV according to patient's sizeand/or use of iterative reconstructive technique.Comparison Film: March 03, 2023, February 023Discussion:There is patchy atelectasis at the lung bases. Trace pericardial fluid.Liver is enlarged, and measures 26.2 cm sagittally. There is recurrenceof a abscess in segment 4/8, status post removal of a previously placedpigtail catheter. The collection now measures 5.1 x 3.3 x 5.8 cm. Twoair and fluid containing abscess insegment 5 measure 2.8 x 1.7 x 2.6cm, and 2.9 x 2.2 x 2.4 cm; both appear to communicate with an adjac entsubcapsular abscess that measures 6 x 1 x 5.5 cm. There are severaladditional cystic foci in the right hepatic lobe that are new, likely torepresent abscesses as well.Stable cholangiocarcinoma in the left hepatic lobe measuringapproximately 5 x 6 cm. The distal main portal vein may be narrowed bythe tumor. There is a 2nd lesion in segment 6, demonstrating vaguehypoenhancement. There is mild degreeof intrahepatic biliary ductaldilatation, biliary stents are in stable position. Gallbladder iscontra cted and otherwise unremarkable.Spleen is enlarged. Pancreas, and adrenal glands are unremarkable.Kidneys demonstrate no mass, hydronephrosis, or radiopaque stone.No bowel obstruction. There is wall thickening of the right and proximaltransverse colon, new since the prior exam, and associated withperic olonic fat stranding, correlate clinically for colitis. There iscolonic diverticulosis, primarily left-sided, no evidence of acutediverticulitis. Normal appendix. There is a small hiatal hernia.In the pelvis, bladder is normal. Uterus is absent or atrophied. Noadnexal mass.There is a 6 trace amount of ascites. No free intraperitoneal air. Nosignificant change of a 1.5 cm left upper quadrant peritoneal nodule,concerning for metastasis. No new lymphadenopathy.Bony structures demonstrate mild degenerative changes. No suspiciousbony lesion is identified. There is mild anasarca.IMPRESSION:Impression:There is recurrence of an abscess in segment 4/8 of liver, status postdrainage catheter removal. There are several additional liver abscessesas described, including one with a subcapsular component.Grossly stable known cholangiocarcinoma in the left hepatic lobe. Thereis a small 2nd lesion in segment 6.Trace ascites. Stable 1.5 cm left upper quadrant peritoneal nodule islikely metastatic.There is wall thickening of the right colon and proximal transversecolon, associated with pericolonic fat stranding, correlate clinicallyfor colitis.Electronically Signed By: Harika [facility]03/24/2023 14:51 CDTWorkstation Name: [id number] W/ REFLEX URINE [id number] 13:18:35 Test Item Value Reference Range Interpretation Comments COLOR (BEAKER) (test code = 470) Dark Yellow CLARITY (BEAKER) (test code = Cloudy 469) SPECIFIC GRAVITY UA (BEAKER) 1.028 1.001-1.035 (test code = 468) PH UA (BEAKER) (test code = 467) 6.5 5.0-8.0 PROTEIN UA (BEAKER) (test code = 70 mg/dL Negative A 464) GLUCOSE UA (BEAKER) (test code = Negative Negative 365) KETONES UA (BEAKER) (test code = Negative Negative 371) BILIRUBIN UA (BEAKER) (test code Positive Negative A = 462) BLOOD UA (BEAKER) (test code = Negative Negative 461) NITRITE UA (BEAKER) (test code = Negative Negative 465) LEUKOCYTE ESTERASE UA (BEAKER) Negative Negative (test code = 466) UROBILINOGEN UA (BEAKER) (test 8 0.2-1.0 H code = 463) RBC UA (BEAKER) (test code = 519) 5 /HPF WBC UA (BEAKER) (test code = 520) 0 /HPF BACTERIA (BEAKER) (test code = Rare 517) SQUAMOUS EPITHELIAL (BEAKER) 6 /HPF (test code = 516) SOURCE(BEAKER) (test code = 2795) Music Therapy Specialist ID - [auto]Music Therapy Specialist ID - techHIGH SENSITIVITY TROPONIN [id number] 13:06:06 Test Item Value Reference Range Interpretation Comments HIGH SENSITIVITY TROPONIN I (test < pg/ml <=17 code = 2331012) Music Therapy Specialist ID - EMThe RUG DYER STAT High Sensitivity Troponin-I results should be used in conjunctionwith other diagnostic information such as ECG, clinical observations and information, and patient symptoms to aid in the diagnosis of ND.(CELLAVISION MANUAL DIFF)2023-03-24 12:29:10 Test Item Value Reference Range Interpretation Comments NEUTROPHILS - REL 87 % (CELLAVISION)(BEAKER) (test code = 2816) LYMPHOCYTES - REL 5 % (CELLAVISION)(BEAKER) (test code = 2817) MONOCYTES - REL 3 % (CELLAVISION)(BEAKER) (test code = 2818) BASOPHILS - REL 1 % (CELLAVISION)(BEAKER) (test code = 2820) METAMYELOCYTES - REL 2 % 0-0 H (CELLAVISION)(BEAKER) (test code = 2821) BANDS - REL (CELLAVISION)(BEAKER) 1 % 0-10 (test code = 2826) ATYPICAL LYMPHOCYTES - REL 1 % 0-0 H (CELLAVISION)(BEAKER) (test code = 2829) NEUTROPHILS - ABS 10.09 K/ul 1.56-6.13 H (CELLAVISION)(BEAKER) (test code = 2830) LYMPHOCYTES - ABS 0.58 K/ul 1.18-3.74 L (CELLAVISION)(BEAKER) (test code = 2831) MONOCYTES - ABS 0.35 K/uL 0.24-0.36 (CELLAVISION)(BEAKER) (test code = 2832) BASOPHILS - ABS 0.12 K/uL 0.01-0.08 H (CELLAVISION)(BEAKER) (test code = 2835) METAMYELOCYTES - ABS 0.23 K/uL 0.00-0.00 H (CELLAVISION)(BEAKER) (test code = 2836) BANDS - ABS (CELLAVISION)(BEAKER) 0.12 K/uL 0.00-0.80 (test code = 2840) ATYPICAL LYMPHOCYTES - ABS 0.12 K/uL 0.00-0.00 H (CELLAVISION)(BEAKER) (test code = 2858) TOTAL COUNTED (BEAKER) (test code 100 = 1351) WBC MORPHOLOGY (BEAKER) (test Normal code = 487) PLT MORPHOLOGY (BEAKER) (test Normal code = 486) POLYCHROMATOPHILLIC RBCS(BEAKER) 3+ many (test code = 478) HYPOCHROMIA (BEAKER) (test code = 1+ few 963) ANISOCYTOSIS (BEAKER) (test code 1+ few = 961) POIKILOCYTES (BEAKER) (test code 2+ moderate = 966) ELLIPTOCYTES (BEAKER) (test code 1+ few = 962) IRAM CELLS (BEAKER) (test code = 1+ few 474) PLATELET CONCENTRATION Decreased (CELLAVISION)(BEAKER) (test code = 3438) Music Therapy Specialist ID - [id number] ID - ansley Lassiter comments: Slide comments:CBC W/PLT COUNT & AUTO [id number] 12:29:09 Test Item Value Reference Range Interpretation Comments WHITE BLOOD CELL COUNT 11.6 K/ L 3.5-10.5 H (BEAKER) (test code = 775) RED BLOOD CELL COUNT 3.83 M/ L 3.93-5.22 L (BEAKER) (test code = 761) HEMOGLOBIN (BEAKER) 9.6 GM/DL 11.2-15.7 L (test code = 410) HEMATOCRIT (BEAKER) 27.7 % 34.1-44.9 L (test code = 411) MEAN CORPUSCULAR 72 fL 79-95 L VOLUME (BEAKER) (test code = 753) MEAN CORPUSCULAR 25.1 pg 25.6-32.2 L HEMOGLOBIN (BEAKER) (test code = 751) MEAN CORPUSCULAR 34.7 GM/DL 32.2-35.5 HEMOGLOBIN CONC (BEAKER) (test code = 752) RED CELL DISTRIBUTION 18.9 % 11.7-14.4 H WIDTH (BEAKER) (test code = 412) PLATELET COUNT 26 K/CU MM 150-450 L Discordant re sults (BEAKER) (test code = compar ed to previous, 756) clinical correl ation required.Called the nurse B# [phone] MEAN PLATELET VOLUME Unable to report due (BEAKER) (test code = to abn ormal Platelet 754) population distribution. NUCLEATED RED BLOOD 0 /100 WBC 0-0 CELLS (BEAKER) (test code = 413) COMPREHENSIVE METABOLIC [id number] 12:23:19 Test Item Value Reference Range Interpretation Comments TOTAL PROTEIN 6.0 gm/dL 6.0-8.3 (BEAKER) (test code = 770) ALBUMIN (BEAKER) 2.7 g/dL 3.5-5.0 L (test code = 1145) ALKALINE 190 U/L 40-150 H PHOSPHATASE (BEAKER) (test code = 346) BILIRUBIN TOTAL 4.6 mg/dL 0.2-1.2 H (BEAKER) (test code = 377) SODIUM (BEAKER) 133 meq/L 136-145 L (test code = 381) POTASSIUM (BEAKER) 3.1 meq/L 3.5-5.1 L (test code = 379) CHLORIDE (BEAKER) 95 meq/L 98-107 L (test code = 382) CO2 (BEAKER) (test 25 meq/L 22-29 code = 355) BLOOD UREA 29 mg/dL 7-21 H NITROGEN (BEAKER) (test code = 354) CREATININE 0.64 mg/dL 0.57-1.25 (BEAKER) (test code = 358) GLUCOSE RANDOM 190 mg/dL 70-105 H (BEAKER) (test code = 652) CALCIUM (BEAKER) 7.6 mg/dL 8.4-10.2 L (test code = 697) AST (SGOT) 91 U/L 5-34 H (BEAKER) (test code = 353) ALT (SGPT) 76 U/L 6-55 H (BEAKER) (test code = 347) EGFR (BEAKER) 106 Interpretatio n of eGFR [...] is not as accur ate as Creatinine oRya henley in predicting glom erular filtration rate . Estimated GFR is not appl icable for dialysis patien ts Music Therapy Specialist ID - EMSpecimen moderately ictericXR CHEST 1 VIEW PORTABLE / BEDSIDE 2023-03-24 12:22:41 [facility] ZAVALETA : 1970 Sex: FXR CHEST 1 VIEW PORTABLE / BEDSIDECLINICAL HISTORY: Fever TECHNIQUE: Single view of the chest.COMPARISON: February 02, 2023IMPRESSION:Right chest Port-A-Cath tip overlies the SVC.Low lung volumes with perihilar discoid opacities suggestive ofatelectasis are new. Elevated right hemidiaphragm again noted. Nopneumothorax. The cardiomediastinal silhouette is magnified bytechnique. The osseous structures appear intact.Electronically Signed By: Vasyl Diaz03/24/2023 12:24 CDTWorkstation Name: [id number] 12:13:31 Test Item Value Reference Range Interpretation Comments LIPASE (BEAKER) (test code = 749) 59 U/L 8-78 Music Therapy Specialist ID - EMSpecimen moderately ictericLACTIC ACID, [id number] 12:08:30 Test Item Value Reference Range Interpretation Comments LACTATE BLOOD VENOUS 1.97 mmol/L 0.50-2.00 Specime n slightly (2) (BEAKER) (test hemolyzed code = 2872) Music Therapy Specialist ID - EMSpecimen slightly [id number] 12:01:05 Test Item Value Reference Range Interpretation Comments PARTIAL THROMBOPLASTIN TIME 31.4 seconds 22.5-36.0 (BEAKER) (test code = 760) PROTHROMBIN TIME/[id number] 12:00:28 Test Item Value Reference Range Interpretation Comments PROTIME (BEAKER) (test code = 16.4 seconds 11.9-14.2 H 759) INR (BEAKER) (test code = 370) 1.33 <=5.90 RECOMMENDED COUMADIN/WARFARIN INR THERAPY RANGESSTANDARD DOSE: 2.0 - 3.0 Includes: PROPHYLAXIS for venous thrombosis, systemic embolization; TREATMENT for venous thrombosis and/or pulmonary embolus.HIGH RISK: Target INR is 2.5-3.5 for patients with mechanical heart valves.(MANUAL DIFFERENTIAL)2023-03-24 10:05:31 Test Item Value Reference Range Interpretation Comments NEUTROPHILS - REL (DIFF) 76 % (BEAKER) (test code = 1359) LYMPHOCYTES - REL (DIFF) 5 % (BEAKER) (test code = 1360) MONOCYTES - REL (DIFF) 6 % (BEAKER) (test code = 1361) EOSINOPHILS - REL (DIFF) 1 % (BEAKER) (test code = 1362) BASOPHILS - REL (DIFF) 0 % (BEAKER) (test code = 1363) BANDS - REL (DIFF) 12 % 0-10 H (BEAKER) (test code = 1348) NEUTROPHILS - ABS (DIFF) 8.51 K/ L 1.80-8.00 H (BEAKER) (test code = 1365) LYMPHOCYTES - ABS (DIFF) 0.56 K/ L 1.48-4.50 L (BEAKER) (test code = 1366) MONOCYTES - ABS (DIFF) 0.67 K/ L 0.00-1.30 (BEAKER) (test code = 1367) EOSINOPHILS - ABS (DIFF) 0.11 K/ L 0.00-0.50 (BEAKER) (test code = 1368) BASOPHILS - ABS (DIFF) 0.00 K/ L 0.00-0.20 (BEAKER) (test code = 1369) BANDS-ABS (DIFF) (BEAKER) 1.3 K/ L 0.0-0.8 H (test code = 1349) TOTAL COUNTED (BEAKER) 100 (test code = 1351) BANDS + SEGMENTED 9.86 NEUTROPHILS (BEAKER) (test code = 1352) WBC MORPHOLOGY (BEAKER) Normal (test code = 487) PLT MORPHOLOGY (BEAKER) Normal (test code = 486) ABNORMAL PLT Decrease platel ets FORMS(BEAKER) (test code = 2159) ANISOCYTOSIS (BEAKER) 1+ (test code = 961) HYPOCHROMIA (BEAKER) 1+ (test code = 963) COMPREHENSIVE METABOLIC [id number] 09:17:43 Test Item Value Reference Range Interpretation Comments TOTAL PROTEIN 6.0 gm/dL 6.0-8.3 (BEAKER) (test code = 770) ALBUMIN (BEAKER) 3.2 g/dL 3.5-5.0 L (test code = 1145) ALKALINE 195 U/L 40-150 H PHOSPHATASE (BEAKER) (test code = 346) BILIRUBIN TOTAL 4.6 mg/dL 0.2-1.2 H (BEAKER) (test code = 377) SODIUM (BEAKER) 135 meq/L 136-145 L (test code = 381) POTASSIUM (BEAKER) 3.0 meq/L 3.5-5.1 L (test code = 379) CHLORIDE (BEAKER) 97 meq/L 98-107 L (test code = 382) CO2 (BEAKER) (test 27 meq/L 22-29 code = 355) BLOOD UREA 28 mg/dL 7-21 H NITROGEN (BEAKER) (test code = 354) CREATININE 0.60 mg/dL 0.57-1.25 (BEAKER) (test code = 358) GLUCOSE RANDOM 184 mg/dL 70-105 H (BEAKER) (test code = 652) CALCIUM (BEAKER) 7.5 mg/dL 8.4-10.2 L (test code = 697) AST (SGOT) 101 U/L 5-34 H (BEAKER) (test code = 353) ALT (SGPT) 74 U/L 6-55 H (BEAKER) (test code = 347) EGFR (BEAKER) 107 Interpretatio n of eGFR [...] not appl icable for dialysis patien ts Specimen slightly [id number] 09:14:02 Test Item Value Reference Range Interpretation Comments MAGNESIUM (BEAKER) (test code = 2.6 mg/dL 1.6-2.6 627) CBC W/PLT COUNT & AUTO [id number] 09:05:56 Test Item Value Reference Range Interpretation Comments WHITE BLOOD CELL COUNT 11.2 K/ L 3.5-10.5 H (BEAKER) (test code = 775) RED BLOOD CELL COUNT 3.86 M/ L 3.93-5.22 L (BEAKER) (test code = 761) HEMOGLOBIN (BEAKER) 9.6 GM/DL 11.2-15.7 L (test code = 410) HEMATOCRIT (BEAKER) 29.0 % 34.1-44.9 L (test code = 411) MEAN CORPUSCULAR VOLUME 75 fL 79-95 L (BEAKER) (test code = 753) MEAN CORPUSCULAR 24.9 pg 25.6-32.2 L HEMOGLOBIN (BEAKER) (test code = 751) MEAN CORPUSCULAR 33.1 GM/DL 32.2-35.5 HEMOGLOBIN CONC (BEAKER) (test code = 752) RED CELL DISTRIBUTION 18.4 % 11.7-14.4 H WIDTH (BEAKER) (test code = 412) PLATELET COUNT (BEAKER) 17 K/CU MM 150-450 L (test code = 756) MEAN PLATELET VOLUME Unable to calculate (BEAKER) (test code = 754) Screen, [id number] 09:04:36 Test Item Value Reference Range Interpretation Comments Preg Test, Ur (test code = 2-1) Negative Negative Lab Interpretation (test code = Normal 77109-9) [facility] [id number] 09:04:36 Test Item Value Reference Range Interpretation Comments Preg Test, Ur (test code = 2-1) Negative Negative Lab Interpretation (test code = Normal 21447-9) [facility], [id number] 09:04:36 Test Item Value Reference Range Interpretation Comments TEST URINE (BEAKER) (test Negative Negative code = 583) AFB CULTURE + SMEAR (NON-SPUTUM)2023-03-24 08:44:27 Test Item Value Reference Range Interpretation Comments CULTURE (BEAKER) (test No acid-fast bacilli code = 1095) isolated in 42 days AFB SMEAR (BEAKER) No acid fast bacilli (test code = 994) seen CARCINOEMBRYONIC ANTIGEN (CEA)2023-03-10 13:11:23 Test Item Value Reference Range Interpretation Comments CARCINOEMBRYONIC ANTIGEN (BEAKER) 1.7 ng/mL 0.0-5.0 (test code = 685) Music Therapy Specialist ID - ADMINCOMPREHENSIVE METABOLIC [id number] 08:59:25 Test Item Value Reference Range Interpretation Comments TOTAL PROTEIN 7.1 gm/dL 6.0-8.3 (BEAKER) (test code = 770) ALBUMIN (BEAKER) 4.4 g/dL 3.5-5.0 (test code = 1145) ALKALINE 271 U/L 40-150 H PHOSPHATASE (BEAKER) (test code = 346) BILIRUBIN TOTAL 0.4 mg/dL 0.2-1.2 (BEAKER) (test code = 377) SODIUM (BEAKER) 144 meq/L 136-145 (test code = 381) POTASSIUM (BEAKER) 3.2 meq/L 3.5-5.1 L (test code = 379) CHLORIDE (BEAKER) 107 meq/L 98-107 (test code = 382) CO2 (BEAKER) (test 28 meq/L 22-29 code = 355) BLOOD UREA 11 mg/dL 7-21 NITROGEN (BEAKER) (test code = 354) CREATININE 0.66 mg/dL 0.57-1.25 (BEAKER) (test code = 358) GLUCOSE RANDOM 142 mg/dL 70-105 H (BEAKER) (test code = 652) CALCIUM (BEAKER) 8.7 mg/dL 8.4-10.2 (test code = 697) AST (SGOT) 43 U/L 5-34 H (BEAKER) (test code = 353) ALT (SGPT) 45 U/L 6-55 (BEAKER) (test code = 347) [...] not appl icable for dialysis patien ts [id number] 08:58:47 Test Item Value Reference Range Interpretation Comments MAGNESIUM (BEAKER) (test code = 1.8 mg/dL 1.6-2.6 627) CBC W/PLT COUNT & AUTO [id number] 08:39:58 Test Item Value Reference Range Interpretation Comments WHITE BLOOD CELL COUNT (BEAKER) 3.2 K/ L 3.5-10.5 L (test code = 775) RED BLOOD CELL COUNT (BEAKER) 3.95 M/ L 3.93-5.22 (test code = 761) HEMOGLOBIN (BEAKER) (test code = 9.9 GM/DL 11.2-15.7 L 410) HEMATOCRIT (BEAKER) (test code = 32.3 % 34.1-44.9 L 411) MEAN CORPUSCULAR VOLUME (BEAKER) 82 fL 79-95 (test code = 753) MEAN CORPUSCULAR HEMOGLOBIN 25.1 pg 25.6-32.2 L (BEAKER) (test code = 751) MEAN CORPUSCULAR HEMOGLOBIN CONC 30.7 GM/DL 32.2-35.5 L (BEAKER) (test code = 752) RED CELL DISTRIBUTION WIDTH 16.7 % 11.7-14.4 H (BEAKER) (test code = 412) PLATELET COUNT (BEAKER) (test 148 K/CU MM 150-450 L code = 756) MEAN PLATELET VOLUME (BEAKER) 10.1 fL 9.4-12.3 (test code = 754) NEUTROPHILS RELATIVE PERCENT 72 % (BEAKER) (test code = 429) LYMPHOCYTES RELATIVE PERCENT 15 % (BEAKER) (test code = 430) MONOCYTES RELATIVE PERCENT 9 % (BEAKER) (test code = 431) EOSINOPHILS RELATIVE PERCENT 4 % (BEAKER) (test code = 432) BASOPHILS RELATIVE PERCENT 1 % (BEAKER) (test code = 437) NEUTROPHILS ABSOLUTE COUNT 2.27 K/ L 1.56-6.13 (BEAKER) (test code = 670) LYMPHOCYTES ABSOLUTE COUNT 0.47 K/ L 1.18-3.74 L (BEAKER) (test code = 414) MONOCYTES ABSOLUTE COUNT (BEAKER) 0.28 K/ L 0.24-0.36 (test code = 415) EOSINOPHILS ABSOLUTE COUNT 0.11 K/ L 0.04-0.36 (BEAKER) (test code = 416) BASOPHILS ABSOLUTE COUNT (BEAKER) 0.02 K/ L 0.01-0.08 (test code = 417) IMMATURE GRANULOCYTES-RELATIVE 0.30 % 0.00-1.00 PERCENT (BEAKER) (test code = 2801) CT ABDOMEN/PELVIS WITH IV [id number] 10:52:14 [facility] : 1970 Sex: FCT of the abdomen and pelvis, with contrastClinical History: Unlisted Reason for Examf/u liver abscessTechnique: CT of the abdomen and pelvis is performed with intravenouscontrast administration. This exam was performed according to ourdepartmental dose optimization program which includes automated expos urecontrol, adjustment of the mA and/or kV according to patient's sizeand/or use of iterative reconstructive technique.Comparison Film: CT dated February 02, 2023, December 23, 2022, November 21, 2021,MRI dated December 23iscussion:Visualized lung bases are unremarkable. There is a small hiatal hernia.Liver is enlarged and measures 23 cm sagittally. Status postpercutaneous drainage of a liver abscess in segment 4/8, which hassignificantly decreased in size, and now measures approximately 1.4 cm.The right hepatic lobe enhances heterogeneously. Hypoenhancing lesion inleft hepatic lobe is again seen measuring 5x 6 cm. A 1.8 cmhypoenhancing lesion in segment 6 corresponds to 2nd no lesion. Biliarystents are instable position. Gallbladder is unremarkable. There ismild intrahepatic ductal dilatation.Spleen is enlarged. Pancreas, adrenal glands are normal.Kidneys demonstrate no mass, hydronephrosis, or radiopaque stone.There is a small hiatal hernia. No bowel obstruction. No abnormal bowelwall thickening. There is mild colonic diverticulosis. Normal appendix.In the pelvis, bladder is normal. Uterus is atrophied. No adnexal mass.There is no ascites, free air or adenopathy. There is a peritonealnodule that measures 1.5 cm in left upper quadrant is new since .IMPRESSION:Impression:Status post percutaneous drainage of a liver abscess, which has becomesignificantly smaller. Grossly stable hypoenhancing mass in the left hepatic lobe, and 2ndlesion in segment 6.1.5 cm peritoneal nodule left upper quadrant is new since November,,concerning for a metastatic deposit.Colonic diverticulosis. Small hiatal h ernia.Electronically Signed By: Harika Vargas03/08/2023 10:54 CDTWorkstation Name: [id number] ANTIGEN (CEA)2023-02-24 16:03:56 Test Item Value Reference Range Interpretation Comments CARCINOEMBRYONIC ANTIGEN (BEAKER) 1.7 ng/mL 0.0-5.0 (test code = 685) Music Therapy Specialist ID - ADMINCOMPREHENSIVE METABOLIC [id number] 08:47:02 Test Item Value Reference Range Interpretation Comments TOTAL PROTEIN 7.6 gm/dL 6.0-8.3 (BEAKER) (test code = 770) ALBUMIN (BEAKER) 4.7 g/dL 3.5-5.0 (test code = 1145) ALKALINE 207 U/L 40-150 H PHOSPHATASE (BEAKER) (test code = 346) BILIRUBIN TOTAL 0.3 mg/dL 0.2-1.2 (BEAKER) (test code = 377) SODIUM (BEAKER) 141 meq/L 136-145 (test code = 381) POTASSIUM (BEAKER) 3.4 meq/L 3.5-5.1 L (test code = 379) CHLORIDE (BEAKER) 104 meq/L 98-107 (test code = 382) CO2 (BEAKER) (test 29 meq/L 22-29 code = 355) BLOOD UREA 12 mg/dL 7-21 NITROGEN (BEAKER) (test code = 354) CREATININE 0.65 mg/dL 0.57-1.25 (BEAKER) (test code = 358) GLUCOSE RANDOM 110 mg/dL 70-105 H (BEAKER) (test code = 652) CALCIUM (BEAKER) 8.5 mg/dL 8.4-10.2 (test code = 697) AST (SGOT) 21 U/L 5-34 (BEAKER) (test code = 353) ALT (SGPT) 10 U/L 6-55 (BEAKER) (test code = 347) [...] not appl icable for dialysis patien ts [id number] 08:44:12 Test Item Value Reference Range Interpretation Comments MAGNESIUM (BEAKER) (test code = 1.7 mg/dL 1.6-2.6 627) CBC W/PLT COUNT & AUTO [id number] 08:28:47 Test Item Value Reference Range Interpretation Comments WHITE BLOOD CELL COUNT (BEAKER) 4.4 K/ L 3.5-10.5 (test code = 775) RED BLOOD CELL COUNT (BEAKER) 3.88 M/ L 3.93-5.22 L (test code = 761) HEMOGLOBIN (BEAKER) (test code = 10.0 GM/DL 11.2-15.7 L 410) HEMATOCRIT (BEAKER) (test code = 33.0 % 34.1-44.9 L 411) MEAN CORPUSCULAR VOLUME (BEAKER) 85 fL 79-95 (test code = 753) MEAN CORPUSCULAR HEMOGLOBIN 25.8 pg 25.6-32.2 (BEAKER) (test code = 751) MEAN CORPUSCULAR HEMOGLOBIN CONC 30.3 GM/DL 32.2-35.5 L (BEAKER) (test code = 752) RED CELL DISTRIBUTION WIDTH 16.6 % 11.7-14.4 H (BEAKER) (test code = 412) PLATELET COUNT (BEAKER) (test 211 K/CU MM 150-450 code = 756) MEAN PLATELET VOLUME (BEAKER) 9.3 fL 9.4-12.3 L (test code = 754) NEUTROPHILS RELATIVE PERCENT 69 % (BEAKER) (test code = 429) LYMPHOCYTES RELATIVE PERCENT 16 % (BEAKER) (test code = 430) MONOCYTES RELATIVE PERCENT 11 % (BEAKER) (test code = 431) EOSINOPHILS RELATIVE PERCENT 3 % (BEAKER) (test code = 432) BASOPHILS RELATIVE PERCENT 1 % (BEAKER) (test code = 437) NEUTROPHILS ABSOLUTE COUNT 3.01 K/ L 1.56-6.13 (BEAKER) (test code = 670) LYMPHOCYTES ABSOLUTE COUNT 0.69 K/ L 1.18-3.74 L (BEAKER) (test code = 414) MONOCYTES ABSOLUTE COUNT (BEAKER) 0.46 K/ L 0.24-0.36 H (test code = 415) EOSINOPHILS ABSOLUTE COUNT 0.14 K/ L 0.04-0.36 (BEAKER) (test code = 416) BASOPHILS ABSOLUTE COUNT (BEAKER) 0.03 K/ L 0.01-0.08 (test code = 417) IMMATURE GRANULOCYTES-RELATIVE 0.50 % 0.00-1.00 PERCENT (BEAKER) (test code = 2801) US ABDOMEN [id number] 09:48:34 [facility] 1970 Sex: FThis study was submitted to nm on 02/12 for interpretation.TECHNIQUE: Grayscale ultrasound of the rightabdomen.INDICATION: Septic shock , cholangiocardinoma s/p stent.COMPARISON: MR abdomen 12/23/2022.FINDINGS:MIDLINE VASCULATURE: The visualized inferior vena cava is unremarkable.The maximum visualized aortic diameter is 2.1 cm.LIVER: Coarsened hepatic echotexture. Smooth liver contour. [id number] cmin length. A complex collection is seen within the right hepaticlobe measuring up to 2.3 cm displaying peripheral hypervascularity. Themain portal vein is patent and measures 1.3 cm in diameter.BILIARY: Gallbladder: Echogenic foci along the antidependent gallbladder wallmeasuring 3 mm. No gallbladder wall thickening, pericholecystic fluid,or distention. Negative sonographic Trevino sign.Common bile duct measures 0.5 cm, within normal limits. No intrahepaticbiliary ductal dilatation. Stent is seen within the extrahepatic biliaryduct.PANCREAS: Not visualized due to bowel gas..PERITONEUM: No free fluid.RIGHT KIDNEY: Normal in size. No hydronephrosis. No sonographicallyevident solid mass lesion.IMPRESSION:Coarsened hepatic echotexture may represent underlying hepaticparenchymal dysfunction including infectious/inflammatory process,fibrosis/cirrhosis and/or cholestasis.Complex collection seen within the right hepatic lobe measuring 2.3 cm,displaying peripheral vascularity, may represent abscess.Stent seen within the extrahepatic biliary system.Echogenic foci along the antidependent gallbladder wall me asuring 3 mm,may represent focal adenomyomatosis.Hepatomegaly 20 cm in length.Left hepatic lobe central lesion seen on prior study is not visualizedon this study.Electronically Signed By: Trent Garcia02/12/2023 09:50 CDTWorkstation Name: [id number] 01:23:49 Test Item Value Reference Range Interpretation Comments CULTURE (BEAKER) (test No anaerobes isolated code = 1095) WOUND CULTURE + GRAM [id number] 14:40:06 Test Item Value Reference Range Interpretation Comments CULTURE (BEAKER) (test No growth code = 1095) GRAM STAIN RESULT 2+ WBCs (BEAKER) (test code = 1123) GRAM STAIN RESULT 1+ gram variable rods (BEAKER) (test code = 10770) POCT-GLUCOSE [id number] 12:45:54 Test Item Value Reference Range Interpretation Comments POC-GLUCOSE METER 144 mg/dL 70-110 H : TESTED A T [facility] 6720 (BEAKER) (test code [facility], = 1538) [address]: Music Therapy Specialist/Techni grisel ID = [id number] for Ronny (con tract)Harsh POCT-GLUCOSE [id number] 08:29:21 Test Item Value Reference Range Interpretation Comments POC-GLUCOSE METER 92 mg/dL 70-110 : TESTED A T [facility] 6720 (BEAKER) (test code [facility], = 1538) 37557: Music Therapy Specialist/Techni grisel ID = [id number] for Ronny (contract)Flower POCT-GLUCOSE [id number] 22:25:27 Test Item Value Reference Range Interpretation Comments POC-GLUCOSE METER 102 mg/dL 70-110 : [facility] (BANNER) (test code = [facility], 153) 72279: Music Therapy Specialist/Techni grisel ID = [id number] for PERCY DENNEY POCT-GLUCOSE [id number] 17:28:36 Test Item Value Reference Range Interpretation Comments POC-GLUCOSE METER 114 mg/dL 70-110 H : [facility] ([place]) (test code = [facility], 1537) 11798: Music Therapy Specialist/Techni grisel ID = [id number] for HI DALGO, AGLAE BLOOD [id number] 14:00:41 Test Item Value Reference Range Interpretation Comments CULTURE (BEAKER) (test No growth in 5 days code = 1095) BLOOD [id number] 14:00:40 Test Item Value Reference Range Interpretation Comments CULTURE (BEAKER) (test No growth in 5 days code = 1095) POCT-GLUCOSE [id number] 12:22:15 Test Item Value Reference Range Interpretation Comments POC-GLUCOSE METER 148 mg/dL 70-110 H : [facility] (BANNER) (test code = [facility], 1537) 50253: Music Therapy Specialist/Techni grisel ID = [id number] for HI DALGO, AGLAE POCT-GLUCOSE [id number] 08:15:49 Test Item Value Reference Range Interpretation Comments POC-GLUCOSE METER 88 mg/dL 70-110 : [facility] (BANNER) (test code = [facility], 153) 6110[address]: Music Therapy Specialist/Techni grisel ID = [id number] for HIDA LGO, AGLAE POCT-GLUCOSE [id number] 20:35:12 Test Item Value Reference Range Interpretation Comments POC-GLUCOSE METER 121 mg/dL 70-110 H : Notified RN/MD: (BANNER) (test code = TESTED AT [facility] 6720 1537) [facility], [address]: Music Therapy Specialist/Techni grisel ID = [id number] for Ch gifty, Toshia POCT-GLUCOSE [id number] 18:07:16 Test Item Value Reference Range Interpretation Comments POC-GLUCOSE METER 95 mg/dL 70-110 : [facility] (BEAKER) (test code = KENYA Mcmullen [facility], 1538) 771[address]: Music Therapy Specialist/Techni grisel ID = [id number] for Laureen l, Reinaldo POCT-GLUCOSE [id number] 11:46:18 Test Item Value Reference Range Interpretation Comments POC-GLUCOSE METER 119 mg/dL 70-110 H : TESTED A T [facility] 6720 (BEAKER) (test code = PETEND Feng [facility], 1538) 60219: Music Therapy Specialist/Techni grisel ID = [id number] for Pa til, Reinaldo US DRAINAGE WITH CATH [id number] 10:42:41 [facility] 1970 Sex: FPROCEDURE: Drainage catheter placementProcedural PersonnelAttending physician(s): Trent GarciaPre-procedure diagnosis: Intrahepatic fluid collectionPost-procedure diagnosis: SameIndication: Intrahepaticfluid collection suspected infectious process.Additional clinical history: NoneComplications: No immediate complications.IMPRESSION:Percutaneous placement of a 8 [place] drainage catheter into intrahepaticcollection, yielding 10 mL of cloudy brown fluid.Plan: Drain to MARLENE bulb.Follow-up fluid analysis.__ PROCEDURE SUMMARY:- Visceral drainage catheter placement under ultrasound guidance- Additional procedure(s): NonePROCEDURE DETAILS:Pre-procedureConsent: Informed consent for the procedure including risks, benefitsand alternatives was obtained and time-out was performed prior to theprocedure.Preparation: The site was prepared and draped using maximal sterilebarrier technique including cutaneous antisepsis.Anesthesia/sedationLevel of anesthesia/sedation: Moderate sedation (conscious sedation)Anesthesia/sedation administered by: Independent trained observer underattending supervision with continuous monitoring of the patient?s levelof consciousness and physiologic statusTotal intra-service sedation time (minutes): 15Drainage catheter placementThe patient was positioned left lateral decubitus oblique. Initialimaging was performed. Local anesthesia was administered. The fluidcollection was accessed using an access needle followed bywireinsertion and serial dilation and a drainage catheter was placed.Position of the drainage catheter within the fluid collection wasconfirmed. - Initial imaging findings: Right hepatic lobe collection- Drainage catheter placed: Multipurpose drainage catheter- External catheter securement: Non-absorbable suture- Post-drainage imaging findings: Near-complete drainage of the fluidcollectionAdditional DetailsAdditional description of procedure: NoneEquipment details: NoneSpecimens removed: Aspirated fluid was sent for analysis.Estimated blood loss (mL): Less than 5Electronically Signed By: Trent Garcia02/05/2023 10:44 CDTWorkstation Name: [id number] METER 2023-02-05 07:57:20 Test Item Value Reference Range Interpretation Comments POC-GLUCOSE METER 111 mg/dL 70-110 H : TESTED A T [facility] 6720 (BEAKER) (test code = [facility], 1538) [address]: Music Therapy Specialist/Techni grisel ID = [id number] for Reinaldo Duran BASIC METABOLIC [id number] 06:13:42 Test Item Value Reference Range Interpretation Comments SODIUM (BEAKER) 137 meq/L 136-145 (test code = 381) POTASSIUM 4.1 meq/L 3.5-5.1 (BEAKER) (test code = 379) CHLORIDE (BEAKER) 104 meq/L 98-107 (test code = 382) CO2 (BEAKER) 24 meq/L 22-29 (test code = 355) BLOOD UREA 9 mg/dL 7-21 NITROGEN (BEAKER) (test code = 354) CREATININE 0.58 mg/dL 0.57-1.25 (BEAKER) (test code = 358) GLUCOSE RANDOM 102 mg/dL 70-105 (BEAKER) (test code = 652) CALCIUM (BEAKER) 8.4 mg/dL 8.4-10.2 (test code = 697) EGFR (BEAKER) 109 Interpretatio n of eGFR (test code = [...] not appl icable for dialysis patien ts Music Therapy Specialist ID - ADMINBLOOD [id number] 06:00:24 Test Item Value Reference Range Interpretation Comments CULTURE (BEAKER) (test No growth in 5 days code = 1095) CBC (HEMOGRAM ONLY)2023-02-05 05:52:53 Test Item Value Reference Range Interpretation Comments WHITE BLOOD CELL COUNT (BEAKER) 6.4 K/ L 3.5-10.5 (test code = 775) RED BLOOD CELL COUNT (BEAKER) 3.37 M/ L 3.93-5.22 L (test code = 761) HEMOGLOBIN (BEAKER) (test code = 8.7 GM/DL 11.2-15.7 L 410) HEMATOCRIT (BEAKER) (test code = 28.2 % 34.1-44.9 L 411) MEAN CORPUSCULAR VOLUME (BEAKER) 84 fL 79-95 (test code = 753) MEAN CORPUSCULAR HEMOGLOBIN 25.8 pg 25.6-32.2 (BEAKER) (test code = 751) MEAN CORPUSCULAR HEMOGLOBIN CONC 30.9 GM/DL 32.2-35.5 L (BEAKER) (test code = 752) RED CELL DISTRIBUTION WIDTH 16.8 % 11.7-14.4 H (BEAKER) (test code = 412) PLATELET COUNT (BEAKER) (test 140 K/CU MM 150-450 L code = 756) MEAN PLATELET VOLUME (BEAKER) 10.7 fL 9.4-12.3 (test code = 754) NUCLEATED RED BLOOD CELLS 0 /100 WBC 0-0 (BEAKER) (test code = 413) POCT-GLUCOSE [id number] 21:34:50 Test Item Value Reference Range Interpretation Comments POC-GLUCOSE METER 124 mg/dL 70-110 H : TESTED A T [facility] 6720 (BEAKER) (test code = [facility], 1538) 48[address]: Music Therapy Specialist/Techni grisel ID = [id number] for CA RBAJAL, CYN POCT-GLUCOSE [id number] 17:59:06 Test Item Value Reference Range Interpretation Comments POC-GLUCOSE METER 85 mg/dL 70-110 : TESTED A T [facility] 6720 (BEAKER) (test code = [facility], 1538) [address]642: Music Therapy Specialist/Techni grisel ID = [id number] for TAIWO SANTOS POCT-GLUCOSE [id number] 13:28:24 Test Item Value Reference Range Interpretation Comments POC-GLUCOSE METER 120 mg/dL 70-110 H : TESTED A T [facility] 6720 (BEAKER) (test code [facility], = 1538) 47339: Music Therapy Specialist/Techni grisel ID = [id number] for TAIWO SANTOS BASIC METABOLIC [id number] 18:35:09 Test Item Value Reference Range Interpretation Comments SODIUM (BEAKER) 136 meq/L 136-145 (test code = 381) POTASSIUM 3.7 meq/L 3.5-5.1 (BEAKER) (test code = 379) CHLORIDE (BEAKER) 102 meq/L 98-107 (test code = 382) CO2 (BEAKER) 25 meq/L 22-29 (test code = 355) BLOOD UREA 5 mg/dL 7-21 L NITROGEN (BEAKER) (test code = 354) CREATININE 0.60 mg/dL 0.57-1.25 (BEAKER) (test code = 358) GLUCOSE RANDOM 127 mg/dL 70-105 H (BEAKER) (test code = 652) CALCIUM (BEAKER) 8.4 mg/dL 8.4-10.2 (test code = 697) EGFR (BEAKER) 108 Interpretatio n of eGFR (test code = [...] not appl icable for dialysis patien ts Music Therapy Specialist ID - [id number] 18:35:09 Test Item Value Reference Range Interpretation Comments MAGNESIUM (BEAKER) (test code = 1.9 mg/dL 1.6-2.6 627) Music Therapy Specialist ID - [id number] 18:35:09 Test Item Value Reference Range Interpretation Comments PHOSPHORUS (BEAKER) (test code = 3.1 mg/dL 2.3-4.7 604) Music Therapy Specialist ID - esauPROTHROMBIN TIME/[id number] 12:00:30 Test Item Value Reference Range Interpretation Comments PROTIME (BEAKER) 14.9 seconds 11.9-14.2 H (test code = 759) INR (BEAKER) (test 1.25 See_Comment [Automat ed message] code = 370) The system [employer] generated this result transmitted ref erence range: <=5.90. The reference range was not used to int erpret this result as normal/abnormal . RECOMMENDED COUMADIN/WARFARIN INR THERAPY RANGESSTANDARD DOSE: 2.0 - 3.0 Includes: PROPHYLAXIS for venous thrombosis, systemic embolization; TREATMENT for venous thrombosis and/or pulmonary embolus.HIGH RISK: Target INR is 2.5-3.5 for patients with mechanical heart valves.POCT-GLUCOSE [id number] 11:05:32 Test Item Value Reference Range Interpretation Comments POC-GLUCOSE METER 113 mg/dL 70-110 H : TESTED A T [facility] 6720 (BEAKER) (test code = KEN[facility] Mcmullen [facility], 1538) 16689: Music Therapy Specialist/Techni grisel ID = [id number] for Elicia Vega BLOOD [id number] 09:57:46 Test Item Value Reference Range Interpretation Comments CULTURE (BEAKER) ENTEROCOCCUS A From Aerobi c And (test code = 1095) GALLINARUM Anaerobic Bottles Enterococcus gallinarum Ampicillin (test S code = 26) Gentamicin High S Level Synergy (test code = 241) Linezolid (test S code = 40) Streptomycin High S Level Synergy (test code = 242) Vancomycin (test R code = 13) GRAM STAIN RESULT From aerobic and (BEAKER) (test code anaerobic bottles: = 1123) gram positive cocci in chains and pairs HEPATIC FUNCTION [id number] 04:58:39 Test Item Value Reference Range Interpretation Comments TOTAL PROTEIN (BEAKER) (test code = 5.7 gm/dL 6.0-8.3 L 770) ALBUMIN (BEAKER) (test code = 1145) 3.0 g/dL 3.5-5.0 L BILIRUBIN TOTAL (BEAKER) (test code 0.4 mg/dL 0.2-1.2 = 377) BILIRUBIN DIRECT (BEAKER) (test 0.3 mg/dL 0.1-0.5 code = 706) ALKALINE PHOSPHATASE (BEAKER) (test 167 U/L 40-150 H code = 346) AST (SGOT) (BEAKER) (test code = 17 U/L 5-34 353) ALT (SGPT) (BEAKER) (test code = 23 U/L 6-55 347) Music Therapy Specialist ID - esauBASIC METABOLIC [id number] 04:58:38 Test Item Value Reference Range Interpretation Comments SODIUM (BEAKER) 134 meq/L 136-145 L (test code = 381) POTASSIUM 3.6 meq/L 3.5-5.1 (BEAKER) (test code = 379) CHLORIDE (BEAKER) 101 meq/L 98-107 (test code = 382) CO2 (BEAKER) 24 meq/L 22-29 (test code = 355) BLOOD UREA 4 mg/dL 7-21 L NITROGEN (BEAKER) (test code = 354) CREATININE 0.54 mg/dL 0.57-1.25 L (BEAKER) (test code = 358) GLUCOSE RANDOM 97 mg/dL 70-105 (BEAKER) (test code = 652) CALCIUM (BEAKER) 8.2 mg/dL 8.4-10.2 L (test code = 697) EGFR (BEAKER) 111 Interpretatio n of eGFR (test code = mL/min/1.73 values Stage De scription 1092) sq m Result G1 Nataliya l or high >=90 G2 Mildly decreased 60-89 G3a Mildl y to moderately 45- 59 G3b Moderately to s everely 30-44 G4 Severl y decreased 15-29 G5 Kidney failure <15Reported eGF R is based on the CKD-EPI 2020 equation that d oes not use a race coefficientEsti mated GFR is not as accur ate as Creatinine Roya lory in predicting glom erular filtration rate . Estimated GFR is not appl icable for dialysis patien ts Music Therapy Specialist ID - [id number] 04:58:38 Test Item Value Reference Range Interpretation Comments MAGNESIUM (BEAKER) (test code = 1.8 mg/dL 1.6-2.6 627) Music Therapy Specialist ID - [id number] 04:58:38 Test Item Value Reference Range Interpretation Comments PHOSPHORUS (BEAKER) (test code = 3.7 mg/dL 2.3-4.7 604) Music Therapy Specialist ID - esauCALCIUM, [id number] 04:37:53 Test Item Value Reference Range Interpretation Comments CALCIUM IONIZED (BEAKER) (test 1.05 mmol/L 1.12-1.27 L code = 698) PH, BLOOD (BEAKER) (test code = 7.44 1810) CBC W/PLT COUNT & AUTO [id number] 04:26:22 Test Item Value Reference Range Interpretation Comments WHITE BLOOD CELL COUNT (BEAKER) 5.8 K/ L 3.5-10.5 (test code = 775) RED BLOOD CELL COUNT (BEAKER) 3.38 M/ L 3.93-5.22 L (test code = 761) HEMOGLOBIN (BEAKER) (test code = 8.7 GM/DL 11.2-15.7 L 410) HEMATOCRIT (BEAKER) (test code = 27.8 % 34.1-44.9 L 411) MEAN CORPUSCULAR VOLUME (BEAKER) 82 fL 79-95 (test code = 753) MEAN CORPUSCULAR HEMOGLOBIN 25.7 pg 25.6-32.2 (BEAKER) (test code = 751) MEAN CORPUSCULAR HEMOGLOBIN CONC 31.3 GM/DL 32.2-35.5 L (BEAKER) (test code = 752) RED CELL DISTRIBUTION WIDTH 16.8 % 11.7-14.4 H (BEAKER) (test code = 412) PLATELET COUNT (BEAKER) (test code 95 K/CU MM 150-450 L = 756) MEAN PLATELET VOLUME (BEAKER) 11.0 fL 9.4-12.3 (test code = 754) NUCLEATED RED BLOOD CELLS (BEAKER) 0 /100 WBC 0-0 (test code = 413) NEUTROPHILS RELATIVE PERCENT 80 % (BEAKER) (test code = 429) LYMPHOCYTES RELATIVE PERCENT 7 % (BEAKER) (test code = 430) MONOCYTES RELATIVE PERCENT 12 % (BEAKER) (test code = 431) EOSINOPHILS RELATIVE PERCENT 1 % (BEAKER) (test code = 432) BASOPHILS RELATIVE PERCENT 0 % (BEAKER) (test code = 437) NEUTROPHILS ABSOLUTE COUNT 4.63 K/ L 1.56-6.13 (BEAKER) (test code = 670) LYMPHOCYTES ABSOLUTE COUNT 0.39 K/ L 1.18-3.74 L (BEAKER) (test code = 414) MONOCYTES ABSOLUTE COUNT (BEAKER) 0.68 K/ L 0.24-0.36 H (test code = 415) EOSINOPHILS ABSOLUTE COUNT 0.04 K/ L 0.04-0.36 (BEAKER) (test code = 416) BASOPHILS ABSOLUTE COUNT (BEAKER) 0.02 K/ L 0.01-0.08 (test code = 417) IMMATURE GRANULOCYTES-RELATIVE 1.00 % 0.00-1.00 PERCENT (BEAKER) (test code = 2801) POCT-GLUCOSE [id number] 22:11:45 Test Item Value Reference Range Interpretation Comments POC-GLUCOSE METER 117 mg/dL 70-110 H : Notified RN/MD: (ROBYN) (test code = TESTED AT [facility] 6720 1538) [facility], [address]: Music Therapy Specialist/Techni grisel ID = [id number] for Paris Diaz2023-08-15 18:29:30 Test Item Value Reference Range Interpretation Comments PHOSPHORUS (BEAKER) (test code = 3.3 mg/dL 2.3-4.7 604) Music Therapy Specialist ID - BSBASIC METABOLIC [id number] 18:29:29 Test Item Value Reference Range Interpretation Comments SODIUM (BEAKER) 138 meq/L 136-145 (test code = 381) POTASSIUM 3.7 meq/L 3.5-5.1 (BEAKER) (test code = 379) CHLORIDE (BEAKER) 104 meq/L 98-107 (test code = 382) CO2 (BEAKER) 24 meq/L 22-29 (test code = 355) BLOOD UREA 4 mg/dL 7-21 L NITROGEN (BEAKER) (test code = 354) CREATININE 0.63 mg/dL 0.57-1.25 (BEAKER) (test code = 358) GLUCOSE RANDOM 142 mg/dL 70-105 H (BEAKER) (test code = 652) CALCIUM (BEAKER) 8.0 mg/dL 8.4-10.2 L (test code = 697) EGFR (BEAKER) 107 Interpretatio n of eGFR (test code = mL/min/1.73 values Stage De scription 1092) sq m Result G1 Nataliya l or high >=90 G2 Mildly decreased 60-89 G3a Mildl y to moderately 45-5 9 G3b Moderately to s everely 30-44 G4 Severl y decreased 15-29 G5 Kidney failure <15Reported eGF R is based on the CKD-EPI 1 equation that d oes not use a race coefficientEsti mated GFR is not as accur ate as Creatinine Roya henley in predicting glom erular filtration rate . Estimated GFR is not appl icable for dialysis patien ts Music Therapy Specialist ID - [id number] 18:29:29 Test Item Value Reference Range Interpretation Comments MAGNESIUM (BEAKER) (test code = 2.0 mg/dL 1.6-2.6 627) Music Therapy Specialist ID - BSCT ABDOMEN/PELVIS WITH IV [id number] 16:37:32 [facility] 1970 Sex: FEXAM: CT Abdomen and Pelvis WITH intravenous contrast INDICATION: SepsisSee aboveCOMPARISON: November 21, 2021TECHNIQUE: The abdomen and pelvis were scanned utilizing a multidetector helicalscanner from the lung base to the pubic symphysis after administrationof IV contrast. Coronal and sagittal reformationswere obtained. Routineprotocol was performed. Scan was performed during portal venous phase. Dose modulation, iterative reconstruction, and/or weight basedadjustment of the mA/kV was utilized to reducethe radiation dose to aslow as reasonably achievable. IV CONTRAST: 100mL of Isovue 370ORAL CONTRAST:WaterFINDINGS:LOWER THORAX: No lung base consolidation.HEPATOBILIARY: Liver is enlarged measuring 22.7 cm in the rightmidclavicular line. There is somewhat decrease in size of ahypoenhancing mass in the left hepatic lobe measuring 6 x 5.1 cm,previously 6 x 5.4 cm. There is interval development of a septated tocystic mass in the segment to 4/8 of the liver measuring approximately3.1 x 3.9 cm consistent with liver abscess. Computer stent is present.SPLEEN: Enlarged measuring 12.4 x 4.9 x 12.4 cm.PANCRE : No focal masses or ductal dilation.ADRENALS: No adrenal nodules.KIDNEYS/URETERS: No hydronephrosis, stones, or suspicious solid orcystic lesions.PELVIC ORGANS/BLADDER: Uterus is atrophic. Both ovaries areunremarkable.PERITONEUM / RETROPERITONEUM: No free air or fluid.LYMPH NODES: No lymphadenopathy.VESSELS: Scattered atherosclerotic calcifications of the non- aneurysmalabdominal aorta and major branches.GI TRACT: Diverticular disease is seen in the large bowel withoutdiverticulitis. The small bowel is normal in caliber.BONES AND SOFT TISSUES: No acute osseous injury. No suspicious lytic orblastic lesions. Unremarkable soft tissues.IMPRESSION:1. Hepatosplenomegaly2. Minimal decrease in size of hypoenhancing mass in the left hepaticlobe.3. Interval development of a loculated septated cystic lesion in thesegment 4/8 of the liver consistent with abscess.3. Diverticulosis without diverticulitis.Milly ctronically Signed By: Armando Barbosa02/02/2023 16:39 CDTWorkstation Name: [id number] CHEST 1 VIEW PORTABLE / [id number] 06:35:51 [facility] MEGHANN : 1970 Sex: FCLINICAL HISTORY: FeverTECHNIQUE: 1 view of the chest.COMPARISON: 02/01/2023IMPRESSION:Bilateral central lines unchanged. No infiltrates or effusions. Nosignificant cardiomegaly.Electronically Signed By: Kimmie Johns02/02/2023 06:37 CDTWorkstation Name: [id number] METABOLIC [id number] 05:31:06 Test Item Value Reference Range Interpretation Comments SODIUM (BEAKER) 135 meq/L 136-145 L (test code = 381) POTASSIUM 3.9 meq/L 3.5-5.1 (BEAKER) (test code = 379) CHLORIDE (BEAKER) 105 meq/L 98-107 (test code = 382) CO2 (BEAKER) 22 meq/L 22-29 (test code = 355) BLOOD UREA 6 mg/dL 7-21 L NITROGEN (BEAKER) (test code = 354) CREATININE 0.54 mg/dL 0.57-1.25 L (BEAKER) (test code = 358) GLUCOSE RANDOM 96 mg/dL 70-105 (BEAKER) (test code = 652) CALCIUM (BEAKER) 7.7 mg/dL 8.4-10.2 L (test code = 697) EGFR (BEAKER) 111 Interpretatio n of eGFR (test code = [...] not appl icable for dialysis patien ts Music Therapy Specialist ID - [id number] 05:26:48 Test Item Value Reference Range Interpretation Comments PHOSPHORUS (BEAKER) (test code = 3.2 mg/dL 2.3-4.7 604) Music Therapy Specialist ID - EMHEPATIC FUNCTION [id number] 05:26:48 Test Item Value Reference Range Interpretation Comments TOTAL PROTEIN (BEAKER) (test code = 5.3 gm/dL 6.0-8.3 L 770) ALBUMIN (BEAKER) (test code = 1145) 2.7 g/dL 3.5-5.0 L BILIRUBIN TOTAL (BEAKER) (test code 0.4 mg/dL 0.2-1.2 = 377) BILIRUBIN DIRECT (BEAKER) (test 0.2 mg/dL 0.1-0.5 code = 706) ALKALINE PHOSPHATASE (BEAKER) (test 147 U/L 40-150 code = 346) AST (SGOT) (BEAKER) (test code = 25 U/L 5-34 353) ALT (SGPT) (BEAKER) (test code = 29 U/L 6-55 347) Music Therapy Specialist ID - [id number] 05:26:47 Test Item Value Reference Range Interpretation Comments MAGNESIUM (BEAKER) (test code = 1.9 mg/dL 1.6-2.6 627) Music Therapy Specialist ID - EMCBC W/PLT COUNT & AUTO [id number] 05:09:46 Test Item Value Reference Range Interpretation Comments WHITE BLOOD CELL COUNT (BEAKER) 6.2 K/ L 3.5-10.5 (test code = 775) RED BLOOD CELL COUNT (BEAKER) 3.09 M/ L 3.93-5.22 L (test code = 761) HEMOGLOBIN (BEAKER) (test code = 7.9 GM/DL 11.2-15.7 L 410) HEMATOCRIT (BEAKER) (test code = 25.8 % 34.1-44.9 L 411) MEAN CORPUSCULAR VOLUME (BEAKER) 84 fL 79-95 (test code = 753) MEAN CORPUSCULAR HEMOGLOBIN 25.6 pg 25.6-32.2 (BEAKER) (test code = 751) MEAN CORPUSCULAR HEMOGLOBIN CONC 30.6 GM/DL 32.2-35.5 L (BEAKER) (test code = 752) RED CELL DISTRIBUTION WIDTH 16.9 % 11.7-14.4 H (BEAKER) (test code = 412) PLATELET COUNT (BEAKER) (test code 80 K/CU MM 150-450 L = 756) MEAN PLATELET VOLUME (BEAKER) 9.7 fL 9.4-12.3 (test code = 754) NUCLEATED RED BLOOD CELLS (BEAKER) 0 /100 WBC 0-0 (test code = 413) NEUTROPHILS RELATIVE PERCENT 81 % (BEAKER) (test code = 429) LYMPHOCYTES RELATIVE PERCENT 6 % (BEAKER) (test code = 430) MONOCYTES RELATIVE PERCENT 10 % (BEAKER) (test code = 431) EOSINOPHILS RELATIVE PERCENT 1 % (BEAKER) (test code = 432) BASOPHILS RELATIVE PERCENT 0 % (BEAKER) (test code = 437) NEUTROPHILS ABSOLUTE COUNT 5.07 K/ L 1.56-6.13 (BEAKER) (test code = 670) LYMPHOCYTES ABSOLUTE COUNT 0.39 K/ L 1.18-3.74 L (BEAKER) (test code = 414) MONOCYTES ABSOLUTE COUNT (BEAKER) 0.59 K/ L 0.24-0.36 H (test code = 415) EOSINOPHILS ABSOLUTE COUNT 0.08 K/ L 0.04-0.36 (BEAKER) (test code = 416) BASOPHILS ABSOLUTE COUNT (BEAKER) 0.01 K/ L 0.01-0.08 (test code = 417) IMMATURE GRANULOCYTES-RELATIVE 1.30 % 0.00-1.00 H PERCENT (BEAKER) (test code = 2801) LACTIC ACID, [id number] 05:05:50 Test Item Value Reference Range Interpretation Comments LACTATE BLOOD VENOUS (2) (BEAKER) 1.13 mmol/L 0.50-2.00 (test code = 2872) Music Therapy Specialist ID - EMLACTIC ACID, [id number] 00:44:27 Test Item Value Reference Range Interpretation Comments LACTATE BLOOD VENOUS (2) (BEAKER) 1.03 mmol/L 0.50-2.00 (test code = 2872) Music Therapy Specialist ID - ADMINBASIC METABOLIC [id number] 13:54:10 Test Item Value Reference Range Interpretation Comments SODIUM (BEAKER) 137 meq/L 136-145 (test code = 381) POTASSIUM 3.9 meq/L 3.5-5.1 (BEAKER) (test code = 379) CHLORIDE (BEAKER) 108 meq/L 98-107 H (test code = 382) CO2 (BEAKER) 26 meq/L 22-29 (test code = 355) BLOOD UREA 10 mg/dL 7-21 NITROGEN (BEAKER) (test code = 354) CREATININE 0.57 mg/dL 0.57-1.25 (BEAKER) (test code = 358) GLUCOSE RANDOM 103 mg/dL 70-105 (BEAKER) (test code = 652) CALCIUM (BEAKER) 7.6 mg/dL 8.4-10.2 L (test code = 697) EGFR (BEAKER) 109 Interpretatio n of eGFR (test code = [...] not appl icable for dialysis patien ts Music Therapy Specialist ID - [id number] 13:43:40 Test Item Value Reference Range Interpretation Comments PHOSPHORUS (BEAKER) (test code = 2.3 mg/dL 2.3-4.7 604) Music Therapy Specialist ID - MARCOHEPATIC FUNCTION [id number] 13:43:40 Test Item Value Reference Range Interpretation Comments TOTAL PROTEIN (BEAKER) (test code = 5.2 gm/dL 6.0-8.3 L 770) ALBUMIN (BEAKER) (test code = 1145) 2.7 g/dL 3.5-5.0 L BILIRUBIN TOTAL (BEAKER) (test code 0.5 mg/dL 0.2-1.2 = 377) BILIRUBIN DIRECT (BEAKER) (test 0.3 mg/dL 0.1-0.5 code = 706) ALKALINE PHOSPHATASE (BEAKER) (test 150 U/L 40-150 code = 346) AST (SGOT) (BEAKER) (test code = 27 U/L 5-34 353) ALT (SGPT) (BEAKER) (test code = 35 U/L 6-55 347) Music Therapy Specialist ID - [id number] 13:43:39 Test Item Value Reference Range Interpretation Comments MAGNESIUM (BEAKER) (test code = 2.1 mg/dL 1.6-2.6 627) Music Therapy Specialist ID - MARCOLACTIC ACID, [id number] 13:38:39 Test Item Value Reference Range Interpretation Comments LACTATE BLOOD VENOUS (2) (BEAKER) 1.18 mmol/L 0.50-2.00 (test code = 2872) Music Therapy Specialist ID - MARCOECHO W CONTRAST & [id number] 11:05:17Transthoracic Echocardiography Report (TTE) Demographics Patient Name APRYL GARCÍA Date of Study 02/01/2023 ZAVALETA Gender Female Visit Number [id number] Race Number [id number] Number Date of 1970 Referring Denver Sanders, Physician MD RADHA YOUSIF Age 52 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 Amount - 2 mlHeight: 61 inches Weight: 73.48 kg (162 lbs) BSA: 1.73 m^2 BMI: 30.61 kg/m^2HR: 77 bpm BP: 91/64 mmHg Summary 1. LV endocardium is adequately visualized with IV ultrasound enhancing agent. The left ventricle is chamber size (by vol index) is normal. Normal LV wall thickness. All of the LV segments contract normally . LVEF by Quiroz's method of disk assessment is normal (55- 60%) . Grade 1 diastolic dysfunction impaired relaxation with low-normal LA pressure. 2. Normal RV size and systolic function. 3. No significant valvular abnormalities 4. Estimated peak systolic pressure is at least 20-25 mmHg. Peak systolic pressure may be underestimated; partial TR signal. Previous Study No pr ior studies available for comparison. Signature - Findings Left Ventricle LV endocardium is adequately visualized with IV ultrasound enhancing agent. The left ventricle is chamber size (by vol index) is normal. Normal LV wall thickness. All of the LV segments contract normally . LVEF bySimpson's method of disk assessment is normal (55-60%) . Grade 1 diastolic dysfunction impaired relaxation with low-normal LA pressure. Left Atrium LA size is normal . Right Ventricle Normal RV size and systolic function. Right Atrium RA size is probably normal based on available views. Aortic Valve Normal tri-leaflet aortic valve. No evidence of aortic stenosis. No evidence of aortic regurgitation. Mitral Valve Normal MV structure. Trace mitral regurgitation. Tricuspid Valve TV structure is normal. A trace of tricuspid regurgitation. Estimated peak systolic pressure is at least 20-25 mmHg. Peak systolic pressure may be underestimated; partial TR signal. Pulmonic Valve Normal PV structure and fun ction by limited views and Doppler. A trace of pulmonary regurgitation. Aorta Aortic root size (SInus of Valsalva diameter) is normal . Proximal ascending aorta size is normal . Pericardium A trivial pericardial effusion is suspected . IVC/SVC/PA/PV/Pleural The estimated RA pressure by IVC dynamics 0-5mmHg .Chambers/Structures Left Atrium LA Volume: 55.3 ml LA Area: 16.49 cm^2 LA Vol. Index: 32 ml/m^2 Left Ventricle LVIDd: 4.43 cm LVEDV:89.19 ml LV Septum Diastolic: 0.94 cm LV PW Diastolic: 0.95 cm LVEDV Quiroz's:117.02 ml LV Length: 7.65 cm LVESV Quiroz's:52.42 ml LVEF Quiroz's: 55.2 % LVEDVI: 68 ml/m^2 LVESVI: 30 ml/m^2 LVOT Diameter: 1.96 cm Right Ventricle RVOT VTI: 17.79 cm TAPSE: 2.08 cmAorta Ao Root S of Yasmin.: 3.48 cm Ascending Aorta: 3.38 cmDoppler/Quantitative Measurements Mitral Valve MV Peak E-Wave: 0.9 m/s MV Peak A-Wave: 0.8 m/s E/A Ratio: 1.12 Peak Gradient: 3.21 mmHg Deceleration Time: 186 msec MV Ned. Peak: Tissue Doppler E' Septal Velocity: 0.07 m/s E' Lateral Velocity: 0.07 m/s Aortic Valve Peak Velocity: 1.48 m/s Mean Velocity: 0.9 m/s Peak Gradient: 8.73 mmHg Mean Gradient: 3.99 mmHg AV Area (continuity): 2.63 cm^2 AV VTI: 28.79 cm AV DVI: 0.87 LVOT Peak Velocity: 1.22 m/s Peak Gradient: 5.92 mmHg Mean Velocity: 0.82 m/s Mean Gradient: 3.16 mmHg LVOT Diameter: 1.96 cm LVOT VTI: 25.12 cm LVOT Area: 3.02 cm^2 LVOT SV:75.75 ml LVOT CO: 5.83 l/min LVOT CI: 3.37 l/min/m^2 Tricuspid Valve TR Velocity: 2.34 m/s TR Gradient: 21.82 mmHg Pulmonic Valve GA ED Velocity: [facility]24 [facility]EVEL, [id number] 09:10:40 Test Item Value Reference Range Interpretation Comments VANCOMYCIN TROUGH (BEAKER) (test 7.0 ug/mL 10.0-20.0 L code = 522) Music Therapy Specialist ID - GLORIA(CELLAVISION MANUAL DIFF)2023-02-01 07:46:15 Test Item Value Reference Range Interpretation Comments NEUTROPHILS - REL 75 % (CELLAVISION)(BEAKER) (test code = 2816) LYMPHOCYTES - REL 3 % (CELLAVISION)(BEAKER) (test code = 2817) MONOCYTES - REL 1 % (CELLAVISION)(BEAKER) (test code = 2818) BASOPHILS - REL 1 % (CELLAVISION)(BEAKER) (test code = 2820) METAMYELOCYTES - REL 2 % 0-0 H (CELLAVISION)(BEAKER) (test code = 2821) BANDS - REL (CELLAVISION)(BEAKER) 18 % 0-10 H (test code = 2826) NEUTROPHILS - ABS 4.95 K/ul 1.56-6.13 (CELLAVISION)(BEAKER) (test code = 2830) LYMPHOCYTES - ABS 0.20 K/ul 1.18-3.74 L (CELLAVISION)(BEAKER) (test code = 2831) MONOCYTES - ABS 0.07 K/uL 0.24-0.36 L (CELLAVISION)(BEAKER) (test code = 2832) BASOPHILS - ABS 0.07 K/uL 0.01-0.08 (CELLAVISION)(BEAKER) (test code = 2835) METAMYELOCYTES - ABS 0.13 K/uL 0.00-0.00 H (CELLAVISION)(BEAKER) (test code = 2836) BANDS - ABS (CELLAVISION)(BEAKER) 1.19 K/uL 0.00-0.80 H (test code = 2840) TOTAL COUNTED (BEAKER) (test code 100 = 1351) MANUAL NRBC PER 100 CELLS 1 /100 WBC 0-0 H (BEAKER) (test code = 1353) PLT MORPHOLOGY (BEAKER) (test Normal code = 486) SMUDGE CELLS (BEAKER) (test code Present = 1371) ANISOCYTOSIS (BEAKER) (test code 1+ few = 961) MICROCYTES (BEAKER) (test code = 1+ few 965) POIKILOCYTES (BEAKER) (test code 2+ moderate = 966) SPHEROCYTES (BEAKER) (test code = 1+ few 768) ELLIPTOCYTES (BEAKER) (test code 1+ few = 962) OVALOCYTES (BEAKER) (test code = 2+ moderate 477) PLATELET CONCENTRATION Decreased (CELLAVISION)(BEAKER) (test code = 3438) Music Therapy Specialist ID - [id number] ID - Praneeth Guidoo-onUser comments: Slide comments: CBC W/PLT COUNT & AUTO [id number] 07:46:14 Test Item Value Reference Range Interpretation Comments WHITE BLOOD CELL COUNT (BEAKER) 6.6 K/ L 3.5-10.5 (test code = 775) RED BLOOD CELL COUNT (BEAKER) 3.00 M/ L 3.93-5.22 L (test code = 761) HEMOGLOBIN (BEAKER) (test code = 7.7 GM/DL 11.2-15.7 L 410) HEMATOCRIT (BEAKER) (test code = 25.1 % 34.1-44.9 L 411) MEAN CORPUSCULAR VOLUME (BEAKER) 84 fL 79-95 (test code = 753) MEAN CORPUSCULAR HEMOGLOBIN 25.7 pg 25.6-32.2 (BEAKER) (test code = 751) MEAN CORPUSCULAR HEMOGLOBIN CONC 30.7 GM/DL 32.2-35.5 L (BEAKER) (test code = 752) RED CELL DISTRIBUTION WIDTH 16.7 % 11.7-14.4 H (BEAKER) (test code = 412) PLATELET COUNT (BEAKER) (test code 75 K/CU MM 150-450 L = 756) MEAN PLATELET VOLUME (BEAKER) 11.7 fL 9.4-12.3 (test code = 754) NUCLEATED RED BLOOD CELLS (BEAKER) 0 /100 WBC 0-0 (test code = 413) XR CHEST 1 VIEW PORTABLE / [id number] 07:37:44 [facility] : 1970 Sex: FCLINICAL HISTORY: Fever TECHNIQUE: 1 view of the chest.COMPARISON: 10/13/2022IMPRESSION:Right chest wall port again seen. New left jugular line in the SVC.Mildly prominent lung markings again noted. No lobar consolidation orsignificant pleural fluid. The cardiomediastinal silhouette is magnifiedby technique.Electronically Signed By: Kimmie Johns02/01/2023 07:39 CDTWorkstation Name: [id number] METABOLIC PANEL 2023-02-01 05:50:35 Test Item Value Reference Range Interpretation Comments SODIUM (BEAKER) 136 meq/L 136-145 (test code = 381) POTASSIUM 3.9 meq/L 3.5-5.1 (BEAKER) (test code = 379) CHLORIDE (BEAKER) 108 meq/L 98-107 H (test code = 382) CO2 (BEAKER) 20 meq/L 22-29 L (test code = 355) BLOOD UREA 12 mg/dL 7-21 NITROGEN (BEAKER) (test code = 354) CREATININE 0.62 mg/dL 0.57-1.25 (BEAKER) (test code = 358) GLUCOSE RANDOM 117 mg/dL 70-105 H (BEAKER) (test code = 652) CALCIUM (BEAKER) 7.8 mg/dL 8.4-10.2 L (test code = 697) EGFR (BEAKER) 107 [...] not appl icable for dialysis patien ts Music Therapy Specialist ID - [id number] 05:43:07 Test Item Value Reference Range Interpretation Comments MAGNESIUM (BEAKER) (test code = 2.3 mg/dL 1.6-2.6 627) Music Therapy Specialist ID - [id number] 05:43:07 Test Item Value Reference Range Interpretation Comments PHOSPHORUS (BEAKER) (test code = 2.7 mg/dL 2.3-4.7 604) Music Therapy Specialist ID - MARCOLACTIC ACID, [id number] 05:35:00 Test Item Value Reference Range Interpretation Comments LACTATE BLOOD VENOUS (2) (BEAKER) 1.02 mmol/L 0.50-2.00 (test code = 2872) Music Therapy Specialist ID - MARCOBLOOD CULTURE IDENTIFICATION [id number] 22:33:54 Test Item Value Reference Range Interpretation Comments MCR-1 (BEAKER) (test code = Non Applicable Not detected 2829882576) CTX-M (BEAKER) (test code = Non Applicable Not detected 5493566599) IMP ([place]) (test code = Non Applicable Not Detected 6805809485) KPC (BKR) (test code = Non Applicable Not detected 8753327975) NDM (BKR) (test code = Non Applicable Not Detected 1521189598) OXA-48-LIKE (BKR) (test code = Non Applicable Not Detected 3404198061) VIM (BKR) (test code = Non Applicable Not detected 2569777359) MEC A/C ([place]) (test code = Non Applicable Not detected 8084664939) MEC A/C AND MREJ (MRSA) [place] Non Applicable Not Detected (test code = 0461371334) VAN A/B (VANCOMYCIN Non Applicable Not detected RESISTANCE) (test code = 7672181427) ENTEROCOCCUS FAECALIS (BKR) Not detected Not detected (test code = 0073477627) ENTEROCOCCUS FAECIUM (BKR) Not detected Not detected (test code = 7678776443) LISTERIA MONOCYTOGENES (test Not detected Not detected code = 20160323) STAPHYLOCOCCUS (test code = Not detected Not detected 20160526) STAPHYLOCOCCUS AUREUS (test Not detected Not detected code = 20160527) STAPHYLOCOCCUS EPIDERMIDIS Not detected Not detected ([place]) (test code = 7289584187) STAPHYLOCOCCUS LUGDENENSIS Not detected Not detected (BKR) (test code = 5469204263) STREPTOCOCCUS (test code = Not detected Not detected 20160528) STREPTOCOCCUS AGALACTIAE Not detected Not detected (GROUP B) (test code = 5395096) STREPTOCOCCUS PNEUMONIAE (test Not detected Not detected code = 9037259) STREPTOCOCCUS PYOGENES (GROUP Not detected Not detected A) (test code = 6843750) ACINETOBACTER Not detected Not detected CALCOACETICUS-BAUMANNII COMPLEX (BKR) (test code = 7712) BACTEROIDES FRAGILIS ([place]) Not detected Not detected (test code = 4285360000) ENTEROBACTERALES (test code = Not detected Not detected 1280725703) ENTEROBACTER CLOACOE COMPLEX Not detected Not detected (test code = 8353296) ESCHERICHIA COLI (test code = Not detected Not detected 5408398) KLEBSIELLA AEROGENES (BKR) Not detected Not detected (test code = 7040129385) KLEBSIELLA OXYTOCA (test code Not detected Not detected = ) KLEBSIELLA PNEUMONIAE GROUP Not detected Not detected (test code = 5393326987) PROTEUS (test code = 2172453) Not detected Not detected SALMONELLA SPECIES ([place]) (test Not detected Not detected code = 6977234701) SERRATIA MARCESCENS (test code Not detected Not detected = ) HAEMOPHILUS INFLUENZAE (test Not detected Not detected code = 2648139) NEISSERIA MENINGITIDIS (test Not detected Not detected code = 2352659) PSEUDOMONAS AERUGINOSA-BEAKER Not detected Not detected (test code = 5522268) STENOTROPHOMONAS MALTOPHILIA Not detected Not detected (BKR) (test code = 2099910423) JERROD ALBICANS (test code = Not detected Not detected ) JERROD AURIS ([place]) (test code Not detected Not detected = 1391220137) JERROD GLABRATA (test code = Not detected Not detected 9123291) JERROD KRUSEI (test code = Not detected Not detected 3060985) JERROD PARAPSILOSIS (test Not detected Not detected code = 9376343) JERROD TROPICALIS (BKR) (test Not detected Not detected code = 2311177) CRYPTOCOCCUS NEOFORMANS/GATTII Not detected Not detected (test code = 6393936150) Other bacteria and resistance markers not targeted by this PCR panel cannot be excluded; therefore clinical correlation and follow up of serology, culture results, and other molecular studies is required. The results are not intended to be used as the sole means for clinical diagnosis or patient management decisions. This sample was tested at the [facility] using the [employer] Blood Culture ID Panel. It is FDA cleared and has been verified and approved by the [facility] for clinical use. This laboratory is CLIA-certified and College ofAmerican Pathologists (CAP)-accredited to perform high complexity testing.LACTIC ACID, [id number] 21:47:09 Test Item Value Reference Range Interpretation Comments LACTATE BLOOD VENOUS (2) (BEAKER) 1.61 mmol/L 0.50-2.00 (test code = 2872) Music Therapy Specialist ID - MARCOLACTIC ACID, [id number] 16:38:59 Test Item Value Reference Range Interpretation Comments LACTATE BLOOD VENOUS (2) (BEAKER) 1.27 mmol/L 0.50-2.00 (test code = 2872) Music Therapy Specialist ID - MARCOVANCOMYCIN LEVEL, [id number] 16:28:00 Test Item Value Reference Range Interpretation Comments VANCOMYCIN RANDOM (BEAKER) (test 8.6 ug/mL code = 523) Reference Range: No NormalsOperator ID - MARCOBASIC METABOLIC [id number] 16:24:27 Test Item Value Reference Range Interpretation Comments SODIUM (BEAKER) 136 meq/L 136-145 (test code = 381) POTASSIUM 3.6 meq/L 3.5-5.1 (BEAKER) (test code = 379) CHLORIDE (BEAKER) 108 meq/L 98-107 H (test code = 382) CO2 (BEAKER) 20 meq/L 22-29 L (test code = 355) BLOOD UREA 11 mg/dL 7-21 NITROGEN (BEAKER) (test code = 354) CREATININE 0.65 mg/dL 0.57-1.25 (BEAKER) (test code = 358) GLUCOSE RANDOM 140 mg/dL 70-105 H (BEAKER) (test code = 652) CALCIUM (BEAKER) 7.8 mg/dL 8.4-10.2 L (test code = 697) EGFR (BEAKER) 106 [...] not appl icable for dialysis patien ts Music Therapy Specialist ID - [id number] 16:24:16 Test Item Value Reference Range Interpretation Comments MAGNESIUM (BEAKER) (test code = 2.8 mg/dL 1.6-2.6 H 627) Music Therapy Specialist ID - [id number] 16:24:16 Test Item Value Reference Range Interpretation Comments PHOSPHORUS (BEAKER) (test code = 2.2 mg/dL 2.3-4.7 L 604) Music Therapy Specialist ID - ADMINCBC W/PLT COUNT & AUTO [id number] 16:12:32 Test Item Value Reference Range Interpretation Comments WHITE BLOOD CELL COUNT (BEAKER) 6.6 K/ L 3.5-10.5 (test code = 775) RED BLOOD CELL COUNT (BEAKER) 2.91 M/ L 3.93-5.22 L (test code = 761) HEMOGLOBIN (BEAKER) (test code = 7.5 GM/DL 11.2-15.7 L 410) HEMATOCRIT (BEAKER) (test code = 24.2 % 34.1-44.9 L 411) MEAN CORPUSCULAR VOLUME (BEAKER) 83 fL 79-95 (test code = 753) MEAN CORPUSCULAR HEMOGLOBIN 25.8 pg 25.6-32.2 (BEAKER) (test code = 751) MEAN CORPUSCULAR HEMOGLOBIN CONC 31.0 GM/DL 32.2-35.5 L (BEAKER) (test code = 752) RED CELL DISTRIBUTION WIDTH 16.2 % 11.7-14.4 H (BEAKER) (test code = 412) PLATELET COUNT (BEAKER) (test code 81 K/CU MM 150-450 L = 756) MEAN PLATELET VOLUME (BEAKER) 9.9 fL 9.4-12.3 (test code = 754) NUCLEATED RED BLOOD CELLS (BEAKER) 0 /100 WBC 0-0 (test code = 413) CALCIUM, [id number] 16:06:39 Test Item Value Reference Range Interpretation Comments CALCIUM IONIZED (BEAKER) (test 1.11 mmol/L 1.12-1.27 L code = 698) PH, BLOOD (BEAKER) (test code = 7.37 2450) LACTIC ACID, [id number] 13:22:17 Test Item Value Reference Range Interpretation Comments LACTATE BLOOD VENOUS 1.39 mmol/L 0.50-2.00 Specime n slightly (2) (BEAKER) (test hemolyzed code = 2872) Music Therapy Specialist ID - [id number] 11:29:51 Test Item Value Reference Range Interpretation Comments LIPASE (BEAKER) (test code = 749) < U/L 8-78 L Music Therapy Specialist ID - MIRZA4, [id number] 07:21:57 Test Item Value Reference Range Interpretation Comments FREE T4 (BEAKER) (test code = 655) 1.26 ng/dL 0.70-1.48 Music Therapy Specialist ID - ADMINTSH/FREE T4 IF [id number] 06:30:22 Test Item Value Reference Range Interpretation Comments THYROID STIMULATING HORMONE 0.288 uIU/mL 0.350-4.940 L (BEAKER) (test code = 772) Music Therapy Specialist ID - [id number] 06:23:04 Test Item Value Reference Range Interpretation Comments CORTISOL, TOTAL (BEAKER) (test 47.2 ug/dL 3.7-19.4 H code = 2755) Music Therapy Specialist ID - GLORIA(CELLAVISION MANUAL DIFF)2023-01-31 06:16:40 Test Item Value Reference Range Interpretation Comments NEUTROPHILS - REL 68 % (CELLAVISION)(BEAKER) (test code = 2816) LYMPHOCYTES - REL 1 % (CELLAVISION)(BEAKER) (test code = 2817) MONOCYTES - REL 3 % (CELLAVISION)(BEAKER) (test code = 2818) METAMYELOCYTES - REL 1 % 0-0 H (CELLAVISION)(BEAKER) (test code = 2821) MYELOCYTES - REL 1 % 0-0 H (CELLAVISION)(BEAKER) (test code = 2822) BANDS - REL (CELLAVISION)(BEAKER) 25 % 0-10 H (test code = 2826) ATYPICAL LYMPHOCYTES - REL 1 % 0-0 H (CELLAVISION)(BEAKER) (test code = 2829) NEUTROPHILS - ABS 5.44 K/ul 1.56-6.13 (CELLAVISION)(BEAKER) (test code = 2830) LYMPHOCYTES - ABS 0.08 K/ul 1.18-3.74 L (CELLAVISION)(BEAKER) (test code = 2831) MONOCYTES - ABS 0.24 K/uL 0.24-0.36 (CELLAVISION)(BEAKER) (test code = 2832) METAMYELOCYTES - ABS 0.08 K/uL 0.00-0.00 H (CELLAVISION)(BEAKER) (test code = 2836) MYELOCYTES-ABS 0.08 K/uL 0.00-0.00 H (CELLAVISION)(BEAKER) (test code = 2837) BANDS - ABS (CELLAVISION)(BEAKER) 2.00 K/uL 0.00-0.80 H (test code = 2840) ATYPICAL LYMPHOCYTES - ABS 0.08 K/uL 0.00-0.00 H (CELLAVISION)(BEAKER) (test code = 2858) TOTAL COUNTED (BEAKER) (test code 100 = 1351) PLT MORPHOLOGY (BEAKER) (test Normal code = 486) VACUOLATED NEUTROPHILS (BEAKER) Present (test code = 483) POLYCHROMATOPHILLIC RBCS(BEAKER) 2+ moderate (test code = 478) ANISOCYTOSIS (BEAKER) (test code 1+ few = 961) MICROCYTES (BEAKER) (test code = 1+ few 965) POIKILOCYTES (BEAKER) (test code 1+ few = 966) SPHEROCYTES (BEAKER) (test code = 1+ few 768) ARTIFACT (CELLAVISION)(BEAKER) Present (test code = 3432) PLATELET CONCENTRATION Decreased (CELLAVISION)(BEAKER) (test code = 3438) Music Therapy Specialist ID - [id number] ID - Jas comments: Slide comments:CBC W/PLT COUNT & AUTO [id number] 06:16:39 Test Item Value Reference Range Interpretation Comments WHITE BLOOD CELL COUNT (BEAKER) 8.0 K/ L 3.5-10.5 (test code = 775) RED BLOOD CELL COUNT (BEAKER) 3.43 M/ L 3.93-5.22 L (test code = 761) HEMOGLOBIN (BEAKER) (test code = 9.1 GM/DL 11.2-15.7 L 410) HEMATOCRIT (BEAKER) (test code = 27.7 % 34.1-44.9 L 411) MEAN CORPUSCULAR VOLUME (BEAKER) 81 fL 79-95 (test code = 753) MEAN CORPUSCULAR HEMOGLOBIN 26.5 pg 25.6-32.2 (BEAKER) (test code = 751) MEAN CORPUSCULAR HEMOGLOBIN CONC 32.9 GM/DL 32.2-35.5 (BEAKER) (test code = 752) RED CELL DISTRIBUTION WIDTH 16.4 % 11.7-14.4 H (BEAKER) (test code = 412) PLATELET COUNT (BEAKER) (test 112 K/CU MM 150-450 L code = 756) MEAN PLATELET VOLUME (BEAKER) 9.8 fL 9.4-12.3 (test code = 754) NUCLEATED RED BLOOD CELLS 0 /100 WBC 0-0 (BEAKER) (test code = 413) HIGH SENSITIVITY TROPONIN [id number] 06:08:42 Test Item Value Reference Range Interpretation Comments HIGH SENSITIVITY 15 pg/ml See_Comment [Automated message] TROPONIN I (test code = The system which [id number]) generated this result transmitted ref erence range: <=17. Th e reference range was not used to int erpret this result as normal/abnormal . Music Therapy Specialist ID - Cinda RUG DYER STAT High Sensitivity Troponin-I results should be used in conjunction with other diagnostic information such as ECG, clinical observations and information, and patientsymptoms to aid in the diagnosis of ND. POCT-GLUCOSE [id number] 05:25:22 Test Item Value Reference Range Interpretation Comments POC-GLUCOSE METER 153 mg/dL 70-110 H : TESTED A T BSC 6720 (BEAKER) (test code = KENYA QUINONES [place], 1538) 199[address]: Music Therapy Specialist/Techni grisel ID = [id number] for Ri kory (contract), Milly na COMPREHENSIVE METABOLIC [id number] 05:21:21 Test Item Value Reference Range Interpretation Comments TOTAL PROTEIN 6.2 gm/dL 6.0-8.3 (BEAKER) (test code = 770) ALBUMIN (BEAKER) 3.4 g/dL 3.5-5.0 L (test code = 1145) ALKALINE 220 U/L 40-150 H PHOSPHATASE (BEAKER) (test code = 346) BILIRUBIN TOTAL 1.6 mg/dL 0.2-1.2 H (BEAKER) (test code = 377) SODIUM (BEAKER) 136 meq/L 136-145 (test code = 381) POTASSIUM (BEAKER) 3.3 meq/L 3.5-5.1 L (test code = 379) CHLORIDE (BEAKER) 105 meq/L 98-107 (test code = 382) CO2 (BEAKER) (test 17 meq/L 22-29 L code = 355) BLOOD UREA 13 mg/dL 7-21 NITROGEN (BEAKER) (test code = 354) CREATININE 0.76 mg/dL 0.57-1.25 (BEAKER) (test code = 358) GLUCOSE RANDOM 154 mg/dL 70-105 H (BEAKER) (test code = 652) CALCIUM (BEAKER) 7.6 mg/dL 8.4-10.2 L (test code = 697) AST (SGOT) 52 U/L 5-34 H (BEAKER) (test code = 353) ALT (SGPT) 54 U/L 6-55 (BEAKER) (test code = 347) EGFR (BEAKER) 94 Interpretatio n of eGFR (test code = [...] not appl icable for dialysis patien ts Music Therapy Specialist ID - ADMINB-TYPE NATRIURETIC FACTOR (BNP)2023-01-31 05:18:24 Test Item Value Reference Range Interpretation Comments B-TYPE NATRIURETIC PEPTIDE (BEAKER) 474 pg/mL 0-100 H (test code = 700) Music Therapy Specialist ID - [id number] 05:13:19 Test Item Value Reference Range Interpretation Comments MAGNESIUM (BEAKER) (test code = 1.3 mg/dL 1.6-2.6 L 627) Music Therapy Specialist ID - ADMINPT/[id number] 05:02:40 Test Item Value Reference Range Interpretation Comments PROTIME (BEAKER) (test 17.0 seconds 11.9-14.2 H code = 759) INR (BEAKER) (test 1.47 See_Comment [Automat ed code = 370) message] The sy stem which generated this result transmitted reference range : <=5.90. The reference range was not used to interpret this result as normal/abnormal . PARTIAL THROMBOPLASTIN 38.8 seconds 22.5-36.0 H TIME (BEAKER) (test code = 760) RECOMMENDED COUMADIN/WARFARIN INR THERAPY RANGESSTANDARD DOSE: 2.0 - 3.0 Includes: PROPHYLAXIS for venous thrombosis, systemic embolization; TREATMENT for venous thrombosis and/or pulmonary embolus.HIGH RISK: Target INR is 2.5-3.5 for patients with mechanical heart valves.LACTIC ACID, [id number] 05:00:59 Test Item Value Reference Range Interpretation Comments LACTATE BLOOD VENOUS (2) (BEAKER) 3.75 mmol/L 0.50-2.00 H (test code = 2872) Music Therapy Specialist ID - MARCOCALCIUM, [id number] 04:50:39 Test Item Value Reference Range Interpretation Comments CALCIUM IONIZED (BEAKER) (test 0.98 mmol/L 1.12-1.27 L code = 698) PH, BLOOD (BEAKER) (test code = 7.42 1810) CARCINOEMBRYONIC ANTIGEN (CEA)2023-01-27 13:40:59 Test Item Value Reference Range Interpretation Comments CARCINOEMBRYONIC ANTIGEN (BEAKER) 1.7 ng/mL 0.0-5.0 (test code = 685) Music Therapy Specialist ID - [id number] 13:40:59 Test Item Value Reference Range Interpretation Comments CORTISOL, TOTAL (BEAKER) (test code 4.4 ug/dL 3.7-19.4 = 1285) Music Therapy Specialist ID - ADMINCOMPREHENSIVE METABOLIC [id number] 09:52:32 Test Item Value Reference Range Interpretation [...] not appl icable for dialysis patien ts [id number] 09:51:18 Test Item Value Reference Range Interpretation Comments MAGNESIUM (BEAKER) (test code = 2.0 mg/dL 1.6-2.6 627) CBC W/PLT COUNT & AUTO [id number] 09:40:39 Test Item Value Reference Range Interpretation [...] 1.7 ng/mL 0.0-5.0 (test code = 685) Music Therapy Specialist ID - ADMINCOMPREHENSIVE METABOLIC [id number] 10:37:02 Test Item Value Reference Range Interpretation [...] St age Description sq m Result G1 Natailya l or high >=90 G2 Mildly decreased [...] not appl icable for dialysis patien ts [id number] 10:33:52 Test Item Value Reference Range Interpretation Comments MAGNESIUM (BEAKER) (test code = 1.9 mg/dL 1.6-2.6 627) CBC W/PLT COUNT & AUTO [id number] 10:21:12 Test Item Value Reference Range Interpretation [...] 1.9 ng/mL 0.0-5.0 (test code = 685) Music Therapy Specialist ID - ADMINCOMPREHENSIVE METABOLIC [id number] 09:54:02 Test Item Value Reference Range Interpretation [...] not appl icable for dialysis patien ts [id number] 09:52:32 Test Item Value Reference Range Interpretation Comments MAGNESIUM (BEAKER) (test code = 1.8 mg/dL 1.6-2.6 627) CBC W/PLT COUNT & AUTO [id number] 09:43:49 Test Item Value Reference Range Interpretation [...] H PERCENT (BEAKER) (test code = 2801) MRI abdomen with and without [id number] 10:48:171. MRI abdomen with and without contrast2. Magnetic resonance cholangiopancreatography (MRCP) with 3- Dreconstruction and analysis TECHNIQUE: MRI of the abdomen was performed prior to and following theuneventful administration of intravenous gadolinium contrast accordingto standard protocol, including dynamic imaging for MRCP. Image data wasanalyzed on a dedicated 3-D workstation for the MRCP portion of theexam. Indication: Gastrointestinal cancer, staging COMPARISON: MRI abdomen 09/16/2022 Findings: Lower Chest:Normal. Hepatobiliary systemLiver morphology: Enlarged right hepatic lobe measuring 24 cmincraniocaudal dimension with smooth surface contour. The left hepaticlobe is atrophic.Steatosis: There is moderate diffuse hepatic steatosis.Varices: None.Spleen: Normal.Ascites: None.Gallbladder: Norm al. Focal liver observationsThere is an unchanged appearance of a hypoenhancing mass centered at thesuperior left lobe measuring approximately 5.9 x 6.0 cm. There is slight interval decrease in size ofhypointense lesion inhepatic segment six measuring 1.1 cm, previously 1.5 cm additionally,the previously seen T2 hyperintensity and peripheral rim enhancement isnot well appreciated on this study. There is restricted diffusion. No new liver lesions. 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 RetroperitoneumPancreas: Normal.Adrenals: Normal.Kidneys: Punctate cyst in the right kidney.Lymph nodes: No lymphadenopathy. Gastrointestinal: Small hiatal hernia. Imaged bowel and mesentery are otherwise normal. Other findings: None. MRCP:Common bile duct stent is again present extending into the right bileduct. No intrahepatic bili nguyen dilation. No filling defect or strictureis seen in the biliary system. The pancreatic duct is nondilated.[facility] CenterMR [facility] WITH & WITHOUT IV [id number] 10:48:17 [facility] : 1970 Sex: F1. MRI abdomen with [...] Signed By: Giulia Montero12/29/2022 10:50 CDTWorkstation Name: [id number] chest with IV [id number] 15:05:35CT of the chest, with contrast Clinical History: Gastrointestinal cancer, staging Technique: CT of the chest is performed with intravenous contrastadministration. This exam was performed according to our departmentaldose optimization program which includes automated exposure control,adjustment of the mA and/or kV according to patient's size and/or use ofiterative reconstructive technique. Comparison Film: October 13, 2022, September 16, 2022, May 28, 2022,July 28, 2021, June 09, 2021 Discussion: There is a right-sided Port-A-Cath. Visualized thyroid gland is normal.No supraclavicular, axillary, mediastinal or hilar lymphadenopathy.Heart and pericardium are unremarkable. The distal esophagus remainsthick-walled, and there is a tiny hiatal hernia. There are several 2 to 4 mm pulmonary nodules t hat are withoutsignificant interval change compared to September,. However, severalnodules are new compared to May,. There is no mass orconsolidation, no effusion. Central airways are patent, nobronchiectasis or bronchial wall thickening. Again seen is a hypodense lesion in liver, and biliar y stents. Nosuspicious bony lesion.[facility] CenterCT CHEST WITH IV [id number] 15:05:35 [facility] 1970 Sex: FCT of [...] May2021. Suggest continued follow- up.Electronically Signed By: Harika Vargas12/24/2022 15:07 CDTWorkstation Name: [id number] CARCINOEMBRYONIC ANTIGEN (CEA)2022-12-16 13:44:48 Test Item Value Reference Range Interpretation Comments CARCINOEMBRYONIC ANTIGEN (BEAKER) 2.0 ng/mL 0.0-5.0 (test code = 685) Music Therapy Specialist ID - EDCOMPREHENSIVE METABOLIC [id number] 11:15:01 Test Item Value Reference Range Interpretation [...] not appl icable for dialysis patien ts [id number] 11:11:09 Test Item Value Reference Range Interpretation Comments MAGNESIUM (BEAKER) (test code = 2.0 mg/dL 1.6-2.6 627) CBC W/PLT COUNT & AUTO [id number] 10:56:13 Test Item Value Reference Range Interpretation [...] 2.0 ng/mL 0.0-5.0 (test code = 685) Music Therapy Specialist ID - ADMIN(MANUAL DIFFERENTIAL)2022-12-02 12:27:01 Test [...] (test code Normal = 762) COMPREHENSIVE METABOLIC [id number] 11:50:08 Test Item Value Reference Range Interpretation [...] is not appl icable for dialysis patien claribel [id number] 11:48:19 Test Item Value Reference Range Interpretation Comments MAGNESIUM (BEAKER) (test code = 1.9 mg/dL 1.6-2.6 627) CBC W/PLT COUNT & AUTO [id number] 11:42:56 Test Item Value Reference Range Interpretation [...] 2.0 ng/mL 0.0-5.0 (test code = 685) Music Therapy Specialist ID - E.D.(MANUAL DIFFERENTIAL)2022-11-18 09:27:23 Test [...] = 762) CBC W/PLT COUNT & AUTO [id number] 09:16:51 Test Item Value Reference Range Interpretation [...] 9.4 fL 9.4-12.3 (test code = 754) [id number] 09:00:22 Test Item Value Reference Range Interpretation Comments MAGNESIUM (BEAKER) (test code = 1.9 mg/dL 1.6-2.6 627) COMPREHENSIVE METABOLIC [id number] 09:00:17 Test Item Value Reference Range Interpretation [...] (test code = 347) EGFR (BEAKER) 96 Interpretati on of eGFR (test code = 1092) mL/min/1.73 [...] 1.5 ng/mL 0.0-5.0 (test code = 685) Music Therapy Specialist ID - FSE(MANUAL DIFFERENTIAL)2022-11-03 11:41:53 Test [...] (test code Normal = 762) COMPREHENSIVE METABOLIC [id number] 10:54:29 Test Item Value Reference Range Interpretation [...] not appl icable for dialysis patien ts [id number] 10:53:56 Test Item Value Reference Range Interpretation Comments MAGNESIUM (BEAKER) (test code = 1.9 mg/dL 1.6-2.6 627) CBC W/PLT COUNT & AUTO [id number] 10:43:21 Test Item Value Reference Range Interpretation [...] CT, CHEST WITH IV CONTRAST- PE TEST [id number] 15:56:00Unlisted Reason for Exam - Click Yes and Enter Reason Below->No [facility] 1970 Sex: FFINAL REPORT [...] stability and exclude an aggressive neoplasm. Signed: Raza Fitzgerald MDRepsaint joseph hospital west Verified Date/Time: 10/13/2022 15:56:03 Reading Location: [facility] B1 C013X [facility] Consult Reading Room CT chest for pulmonary [id number] 15:56:00FINAL REPORT TECHNIQUE: CT scan of the chest WITH intravenous contrast. Dose mod ulation, iterative reconstruction, and/or weight-based adjustment of the [...] Proximal to the bifurcation of the main pulmonary artery, the main pulmonary artery is 2.9 cm in diameter. No filling defects within the pulmonary arteries to suggest pulmonary embolus. LUNGS AND AIRWAYS: A right lower lobe nodule on axial image 57 measures 0.4 cm, previously 0.3 cm. A right lower lobe pulmonary nodule axial image 67 measures 0.3 cm, unchanged. A right pulmonary nodule measures 0.2 cm [...] cm. IMPRESSION: 1.No pulmonary embolism 2.No acute in trathoracic abnormality 3.The thickening of the gastroesophageal junction/lower [...] stability and exclude an aggressive neoplasm. Signed: Raza Fitzgerald MDReport Verified Date/Time: 10/13/2022 15:56:03 Reading Location: [facility] B1 C013X [facility] Consult Reading [facility] [id number] 15:56:00FINAL REPORT TECHNIQUE: CT scan of the chest [...] Proximal to the bifurcation of the main pulmonary artery, the main pulmonary artery is 2.9 cm in diameter. No filling defects within the pulmonary arteries to suggest pulmonary embolus. LUNGS AND AIRWAYS: A right lower lobe nodule on axial image 57 measures 0.4 cm, previously 0.3 cm. A right lower lobe pulmonary nodule axial image 67 measures 0.3 cm, unchanged. A right pulmonary nodule measures 0.2 cm [...] nodule has increased in size and measures 0 .4 cm. In addition, a right upper lobe pulmonary nodule which measures 0.2 cm is new. A follow-up chest CT is recommended in one year to document stability and exclude an aggressive neoplasm. Signed: Raza Fitzgeraldeport Verified Date/Time: 10/13/2022 15:56:03 Reading Location: [facility] C013X Ortho Consult Reading Room [facility](CELLAVISION MANUAL DIFF)2022-10-13 14:16:48 Test Item Value Reference [...] CONCENTRATION Decreased (CELLAVISION)(BEAKER) (test code = 3438) Music Therapy Specialist ID - [id number] W/PLT COUNT & AUTO [id number] 14:16:47 Test Item Value Reference Range Interpretation [...] 15 pg/mL 0-100 (test code = 700) Music Therapy Specialist ID - SOLEDADIGH SENSITIVITY TROPONIN [id number] 12:59:52 Test Item Value Reference Range Interpretation Comments HIGH SENSITIVITY TROPONIN I (test < pg/ml <=17 code = 5408920) Music Therapy Specialist ID - Cinda RUG DYER STAT High Sensitivity Troponin-I results should be used in conjunction with other diagnostic information such as ECG, clinical observations and information, and patientsymptoms to aid in the diagnosis of ND. COMPREHENSIVE METABOLIC [id number] 12:54:05 Test Item Value Reference Range Interpretation [...] (test code = 347) EGFR (BEAKER) 104 Interpretati on of eGFR (test code = 1092) mL/min/1.73 [...] not appl icable for dialysis patien ts Music Therapy Specialist ID - JZBJOLWDGQZIVR2430-92-05 12:54:05 Test Item Value Reference Range Interpretation Comments MAGNESIUM (BEAKER) (test code = 1.7 mg/dL 1.6-2.6 627) Music Therapy Specialist ID - WLAWKY-ONOHU0413-38-25 12:40:53 Test Item Value Reference Range Interpretation [...] exclusion of thrombosis is within 95-100% range. PT/[id number] 12:38:54 Test Item Value Reference Range Interpretation [...] mechanical heart valves.RAD, CHEST, 1 VIEW, NON [id number] 12:33:00Reason for exam:->SHORTNESS OF BREATHReason for exam:->ABDOMINAL PAINShould this be performed at the bedside?->Yes [facility] 1970 Sex: FFINAL REPORT CLINICAL HISTORY: SHORTNESS OF BREATHABDOMINAL PAIN TECHNIQUE: 1 view of the chest. COMPARISON: 06/23/2021 IMPRESSION: New right chest wall port terminating just above thecavoatrial junction. There are no infiltrates or effusions. No significant cardiomegaly. Elevation of the right hemidiaphragm is again seen. Signed: Kimmie Johns MDReport Verified Date/Time: 10/13/2022 12:33:34 Reading Location: [address] Reading Room MR, ABDOMEN, [id number] 17:05:00In 1 weekRelease to patient->ImmediateWhich [facility] / [facility] radiology location is preferred?->StreemNairInsuStirling [employer] ID = [id number]; Insurance Company Name = [employer]; Insurance Company Phone Nu mber = ; Policy Number = [id number] [facility] 1970 Sex: [...] 1.5 cm lesion in segment 6. Signed: Harika Vargas Verified Date/Time: 09/19/2022 17:05:18 CT, CHEST, WITH [id number] 15:17:00In 1 weekRelease to patient- >ImmediateWhich [facility] / [facility] radiology location is preferred?- >[employer] Company ID = [id number]; Insurance Company Name = AETOMMY; Insurance Company Phone Number = ; Policy Number = [id number] [facility] : 1970 Sex: [...] MDReport Verified Date/Time: 09/16/2022 15:17:34 Reading Location: [facility] C013Y CT Body Reading Room U-[id number] 08:24:44 Test Item Value Reference Range Interpretation Comments POC-Creatinine 0.8 mg/dL 0.6-1.3 : TESTED AT [facility] (test code = [address] [place] [address]) [place] [address]: Music Therapy Specialist/Techni grisel ID = [id number] for Jesus Gonzalez POC-EGFR (test 89 mL/min/1.73M2 Interpretat ion of eGFR code = 53847-2) Values Stage Description Result G1 Nataliya l [...] i s not applicable for dialysis patients [facility]-Ouezjhyxch2379-79-05 08:24:44 Test Item Value Reference Range Interpretation Comments POC-Creatinine 0.8 mg/dL 0.6-1.3 : TESTED AT [facility] (test code = [address] [place] [address]) [place] [address]: Music Therapy Specialist/Techni grisel ID = [id number] for Jesus Gonzalez POC-EGFR (test 89 mL/min/1.73M2 Interpretat ion of eGFR code = 58327-6) Values Stage Description Result G1 Nataliya l [...] i s not applicable for dialysis patients [facility]-Nsvyjhmlvs4363-37-62 08:24:44 Test Item Value Reference Range Interpretation Comments POC-Creatinine 0.8 mg/dL 0.6-1.3 : TESTED AT [facility] (test code = [address] [place] [address]) [place] [address]: Music Therapy Specialist/Techni grisel ID = [id number] for Jesus Gonzalze POC-EGFR (test 89 mL/min/1.73M2 Interpretat ion of eGFR code = 97360-6) Values Stage Description Result G1 Nataliya l or high >=90 G2 Mildly decreased 60-89 G3a Mildl y to moderately 45-5 9 G3b Moderately to s jolie 30-44 G4 Severe ly decreased 15-29 G5 Kidney Failure <15Reported eGF R is based on the CKD-EPI 2021 equation that d oes not use a race coeffici ent Estimated GFR i s not as accurate as Cre atinine Clearance in pr edicting glomerular filt ration rate. Estimated GFR i s not applicable for dialysis patients [facility]-Lcfrxgokpp2546-39-74 08:24:44 Test Item Value Reference Range Interpretation Comments POC-Creatinine 0.8 mg/dL 0.6-1.3 : TESTED AT [facility] (test code = [address] [place] [address]7) [place] [address]: Music Therapy Specialist/Techni grisel ID = [id number] for Jesus Gonzalez POC-EGFR (test 89 mL/min/1.73M2 Interpretat ion of eGFR code = 25525-2) Values Stage Description Result G1 Nataliya l or high >=90 G2 Mildly decreased 60-89 G3a Mildl y to moderately 45-5 9 G3b Moderately to s jolie 30-44 G4 Severely dec reased 15-29 G5 Kidney Fail ure <15Reported eGF R is based on the CKD-EPI 2021 equation that d oes not use a race coeffici ent Estimated GFR i s not as accurate as Cre atinine Clearance in pr edicting glomerular filt ration rate. Estimated GFR i s not applicable for dialysis patients [facility] HospitalLfdpvrklyq3886-59-24 08:24:44 Test Item Value Reference Range Interpretation Comments POC-Creatinine 0.8 mg/dL 0.6-1.3 : TESTED AT [facility] (test code = [address] [place] [address]) [place] [address]: Music Therapy Specialist/Techni grisel ID = [id number] for Jesus Gonzalez POC-EGFR (test 89 mL/min/1.73M2 Interpretat ion of eGFR code = 85061-6) Values Stage Description Result G1 Nataliya l [...] i s not applicable for dialysis patients [facility] HospitalXgzytqtnfo9648-09-63 08:24:44 Test Item Value Reference Range Interpretation Comments POC-Creatinine 0.8 mg/dL 0.6-1.3 : TESTED AT [facility] (test code = [address] [place] [address]) [place] [address]: Music Therapy Specialist/Techni grisel ID = [id number] for Jesus Gonzalez POC-EGFR (test 89 mL/min/1.73M2 Interpreta tion of eGFR code = 80755-0) Values Stage Description Result G1 Nataliya l [...] i s not applicable for dialysis patients [facility]-Dwumueltvv4915-52-32 08:24:44 Test Item Value Reference Range Interpretation Comments POC-Creatinine 0.8 mg/dL 0.6-1.3 : TESTED AT [facility] (test code = [address] [place] [address]) [place] [address]: Music Therapy Specialist/Techni grisel ID = [id number] for Jesus Gonzalez POC-EGFR (test 89 mL/min/1.73M2 Interpretat ion of eGFR code = 75050-6) Values Stage Description Result G1 Nataliya l [...] i s not applicable for dialysis patients [facility] HospitalBdlylyvvuz8363-15-60 08:24:44 Test Item Value Reference Range Interpretation Comments POC-Creatinine 0.8 mg/dL 0.6-1.3 : TESTED AT [facility] (test code = [address] [place] [address]) [place] [address]: Music Therapy Specialist/Techni grisel ID = [id number] for Jesus Gonzalez POC-EGFR (test 89 mL/min/1.73M2 Interpretat ion of eGFR code = 51353-7) Values Stage Description Result G1 Nataliya l or high >=90 G2 Mildly decreased 60-89 G3a Mildl y to moderately 45-5 9 G3b Moderately to s jolie 30-44 G4 Severely dec reased 15-29 G5 Kidney Fail ure <15Reported eGF R is based on the CKD-EPI 2021 equation that d oes not use a race coeffici ent Estimated GFR i s not as accurate as Cre atinine Clearance in pr edicting glomerular filt ration rate. Estimated GFR i s not applicable for dialysis patients [facility]-Lnlkeqvipr1605-52-85 08:24:44 Test Item Value Reference Range Interpretation Comments POC-Creatinine 0.8 mg/dL 0.6-1.3 : TESTED AT [facility] (test code = [address], [place] [address]) [place] [address]: Music Therapy Specialist/Techni grisel ID = [id number] for Jesus Gonzalez POC-EGFR (test 89 mL/min/1.73M2 Interpretat ion of eGFR code = 92825-6) Values Stage Description Result G1 Nataliya l [...] i s not applicable for dialysis patients [facility] HospitalSddfwxwmor8859-30-59 08:24:44 Test Item Value Reference Range Interpretation Comments POC-Creatinine 0.8 mg/dL 0.6-1.3 : TESTED AT [facility] (test code = [address], [place] [address]) [place] [address]: Music Therapy Specialist/Techni grisel ID = [id number] for Jesus Gonzalez POC-EGFR (test 89 mL/min/1.73M2 Interpreta tion of eGFR code = 31682-4) Values Stage Description Result G1 Nataliya l [...] i s not applicable for dialysis patients [facility] HospitalTsrsqtmkoq0992-45-18 08:24:44 Test Item Value Reference Range Interpretation Comments POC-Creatinine 0.8 mg/dL 0.6-1.3 : TESTED AT [facility] (test code = [address] [place] [address]) [place] [address]: Music Therapy Specialist/Techni grsiel ID = [id number] for Jesus Gonzalez POC-EGFR (test 89 mL/min/1.73M2 Interpretat ion of eGFR code = 66247-0) Values Stage Description Result G1 Nataliya l [...] i s not applicable for dialysis patients [facility]-Eaoqrjmrnx7581-95-98 08:24:44 Test Item Value Reference Range Interpretation Comments POC-Creatinine 0.8 mg/dL 0.6-1.3 : TESTED AT [facility] (test code = [address] [place] [address]) [place] [address]: Music Therapy Specialist/Techni grisel ID = [id number] for Jesus Gonzalez POC-EGFR (test 89 mL/min/1.73M2 Interpretat ion of eGFR code = 94837-9) Values Stage Description Result G1 Nataliya l or high >=90 G2 Mildly decreased 60-89 G3a Mildl y to moderately 45-5 9 G3b Moderately to s jolie 30-44 G4 Severely dec reased 15-29 G5 Kidney Fail ure <15Reported eGF R is based on the CKD-EPI 2021 equation that d oes not use a race coeffici ent Estimated GFR i s not as accurate as Cre atinine Clearance in pr edicting glomerular filt ration rate. Estimated GFR i s not applicable for dialysis patients [facility]-Xhqpaebeog0469-22-03 08:24:44 Test Item Value Reference Range Interpretation Comments POC-Creatinine 0.8 mg/dL 0.6-1.3 : TESTED AT [facility] (test code = [address] [place] [address]) [place] [address]: Music Therapy Specialist/Techni grisel ID = [id number] for Jesus Gonzalez POC-EGFR (test 89 mL/min/1.73M2 Interpretat ion of eGFR code = 49195-8) Values Stage Description Result G1 Nataliya l [...] i s not applicable for dialysis patients [facility] HospitalSpastblgcm4651-31-51 08:24:44 Test Item Value Reference Range Interpretation Comments POC-Creatinine 0.8 mg/dL 0.6-1.3 : TESTED AT [facility] (test code = [address] [place] [address]) [place] [address]: Music Therapy Specialist/Techni grisel ID = [id number] for Jesus Gonzalez POC-EGFR (test 89 mL/min/1.73M2 Interpretat ion of eGFR code = 66053-4) Values Stage Description Result G1 Nataliya l [...] i s not applicable for dialysis patients [facility] HospitalMjsfexsfuc1413-44-43 08:24:44 Test Item Value Reference Range Interpretation Comments POC-Creatinine 0.8 mg/dL 0.6-1.3 : TESTED AT [facility] (test code = [address] [place] [address]) [place] [address]: Music Therapy Specialist/Techni grisel ID = [id number] for Jesus Gonzalez POC-EGFR (test 89 mL/min/1.73M2 Interpretat ion of eGFR code = 76491-7) Values Stage Description Result G1 Nataliya l [...] i s not applicable for dialysis patients [facility]-Zaluzlcdim1823-19-07 08:24:44 Test Item Value Reference Range Interpretation Comments POC-Creatinine 0.8 mg/dL 0.6-1.3 : TESTED AT [facility] (test code = [address] [address]1) [place] [address]: Music Therapy Specialist/Techni grisel ID = [id number] for Jesus Gonzalez POC-EGFR (test 89 mL/min/1.73M2 Interpretat ion of eGFR code = 64194-6) Values Stage Description Result G1 Nataliya l [...] i s not applicable for dialysis patients [facility]KWS[facility]COP3754[facility]58-[facility] 08:24:44 Test Item Value Reference Range Interpretation Comments POC-CREATININ 0.8 mg/dL 0.6-1.3 : TESTED AT [facility] E (BEAKER) [address] (test code = [place] [address]: [address]) Music Therapy Specialist/Techni grsiel ID = [id number] for Jesus Gonzalez POC-EGFR 89 Interpretation of eGFR (BANNER) mL/min/1.73M2 Values Stage D escription (test code = Result G1 Nataliya l or high 1860) >=90 G2 Mildly decreased 60-89 G3a Mildl y to moderately 45-5 9 G3b Moderately to s jolie 30-44 G4 Severely dec reased 15-29 G5 Kidney Failu re <15Reported eGF R is based on the CKD-EPI 202 equation that does not u se a race coefficientEsti mated GFR is not as accurate as Creatinine Roya lory in predicting glom erular filtration rate . Estimated GFR is not appl icable for dialysis patien ts BLOOD [id number] 13:00:51 Test Item Value Reference Range Interpretation Comments CULTURE (BEAKER) (test No growth in 5 days code = 1095) BLOOD [id number] 13:00:51 Test Item Value Reference Range Interpretation Comments CULTURE (BEAKER) (test No growth in 5 days code = 1095) POC-Glucose [id number] 07:55:54 Test Item Value Reference Range Interpretation Comments POC-Glucose Meter (test 120 mg/dL 70-110 H : TE STED AT [facility] code = 1538) 20 [facility], [address]: Music Therapy Specialist/Techni grisel ID = [id number] for SCHMITZ, ISSAIRIS Lab Interpretation (test Abnormal code = 23253-1) [facility]-Glucose sqkws6724-84-73 07:55:54 Test Item Value Reference Range Interpretation Comments POC-Glucose Meter (test 120 mg/dL 70-110 H : TE STED AT [facility] code = 1538) [address] [place] [address], [address]: Music Therapy Specialist/Techni grisel ID = [id number] for SCHMITZ, ISSAIRIS Lab Interpretation (test Abnormal code = 03045-4) [facility] CenterPO[facility] [id number] 07:55:54 Test Item Value Reference Range Interpretation Comments POC-Glucose Meter (test 120 mg/dL 70-110 H : TE STED AT [facility] code = 1538) [address] [place] [address], [address]: Music Therapy Specialist/Techni grisel ID = [id number] for SCHMITZ, ISSAIRIS Lab Interpretation (test Abnormal code = 14798-1) [facility] CenterPOC[facility]Glucose [id number] 07:55:54 Test Item Value Reference Range Interpretation Comments POC-Glucose Meter (test 120 mg/dL 70-110 H : TE STED AT [facility] code = 1538) [address] [place] [address], [address]: Music Therapy Specialist/Techni grisel ID = [id number] for SCHMITZ, ISSAIRIS Lab Interpretation (test Abnormal code = 23080-6) [facility] [id number] 07:55:54 Test Item Value Reference Range Interpretation Comments POC-Glucose Meter (test 120 mg/dL 70-110 H : TE STED AT [facility] code = 1538) [address] [place] [address], 770 30: Music Therapy Specialist/Techni grisel ID = [id number] for SCHMITZ, ISSAIRIS Lab Interpretation (test Abnormal code = 40146-5) [facility]-Glucose [id number] 07:55:54 Test Item Value Reference Range Interpretation Comments POC-Glucose Meter (test 120 mg/dL 70-110 H : TE STED AT [facility] code = 1538) [address] [place] [address], 770 30: Music Therapy Specialist/Techni grisel ID = [id number] for SCHMITZ, ISSAIRIS Lab Interpretation (test Abnormal code = 41169-0) [facility]-Glucose [id number] 07:55:54 Test Item Value Reference Range Interpretation Comments POC-Glucose Meter (test 120 mg/dL 70-110 H : TE STED AT [facility] code = 1538) [address] [place] [address], [facility] 30: Music Therapy Specialist/Techni grisel ID = [id number] for SCHMITZ, ISSAIRIS Lab Interpretation (test Abnormal code = 94508-2) [facility]-Glucose [id number] 07:55:54 Test Item Value Reference Range Interpretation Comments POC-Glucose Meter (test 120 mg/dL 70-110 H : TE STED AT [facility] code = 1538) [address] [place] [address], [facility] 30: Music Therapy Specialist/Techni grisel ID = [id number] for SCHMITZ, ISSAIRIS Lab Interpretation (test Abnormal code = 88554-9) [facility]-Glucose [id number] 07:55:54 Test Item Value Reference Range Interpretation Comments POC-Glucose Meter (test 120 mg/dL 70-110 H : TE STED AT [facility] code = 1538) [address] [place] [address], 770 30: Music Therapy Specialist/Techni grisel ID = [id number] for SCHMITZ, ISSAIRIS Lab Interpretation (test Abnormal code = 26228-9) [facility]-Glucose [id number] 07:55:54 Test Item Value Reference Range Interpretation Comments POC-Glucose Meter (test 120 mg/dL 70-110 H : TE STED AT [facility] code = 1538) [address] [place] [address], 770 30: Music Therapy Specialist/Techni grisel ID = [id number] for SCHMITZ, ISSAIRIS Lab Interpretation (test Abnormal code = 88856-4) [facility]-Glucose [id number] 07:55:54 Test Item Value Reference Range Interpretation Comments POC-Glucose Meter (test 120 mg/dL 70-110 H : TE STED AT [facility] code = 1538) [address] [place] [address], 770 30: Music Therapy Specialist/Techni grisel ID = [id number] for SCHMITZ, ISSAIRIS Lab Interpretation (test Abnormal code = 55526-6) [facility]-Glucose [id number] 07:55:54 Test Item Value Reference Range Interpretation Comments POC-Glucose Meter (test 120 mg/dL 70-110 H : TE STED AT [facility] code = 1538) [address] [place] [address], 770 30: Music Therapy Specialist/Techni grisel ID = [id number] for SCHMITZ, ISSAIRIS Lab Interpretation (test Abnormal code = 47680-2) [facility]-Glucose [id number] 07:55:54 Test Item Value Reference Range Interpretation Comments POC-Glucose Meter (test 120 mg/dL 70-110 H : TE STED AT [facility] code = 1538) [address] [place] [address], 770 30: Music Therapy Specialist/Techni grisel ID = [id number] for SCHMITZ, ISSAIRIS Lab Interpretation (test Abnormal code = 26285-1) [facility]-Glucose [id number] 07:55:54 Test Item Value Reference Range Interpretation Comments POC-Glucose Meter (test 120 mg/dL 70-110 H : TE STED AT [facility] code = 1538) [address] [place] [address], 770 30: Music Therapy Specialist/Techni grisel ID = [id number] for SCHMITZ, ISSAIRIS Lab Interpretation (test Abnormal code = 32920-2) [facility]-Glucose [id number] 07:55:54 Test Item Value Reference Range Interpretation Comments POC-Glucose Meter (test 120 mg/dL 70-110 H : TE STED AT [facility] code = 1538) [address] [place] [address], 770 30: Music Therapy Specialist/Techni grisel ID = [id number] for SCHMITZ, ISSAIRIS Lab Interpretation (test Abnormal code = 80275-3) [facility] [id number] 07:55:54 Test Item Value Reference Range Interpretation Comments POC-Glucose Meter (test 120 mg/dL 70-110 H : TE STED AT [facility] code = 1538) [address] [place] [address], 770 30: Music Therapy Specialist/Techni grisel ID = [id number] for SCHMITZ, ISSAIRIS Lab Interpretation (test Abnormal code = 16074-5) [facility] [id number] 07:55:54 Test Item Value Reference Range Interpretation Comments POC-Glucose Meter (test 120 mg/dL 70-110 H : TE STED AT [facility] code = 1538) [address] [place] [address], 770 30: Music Therapy Specialist/Techni grisel ID = [id number] for SCHMITZ, ISSAIRIS Lab Interpretation (test Abnormal code = 14548-0) [facility]-Glucose [id number] 07:55:54 Test Item Value Reference Range Interpretation Comments POC-Glucose Meter (test 120 mg/dL 70-110 H : TE STED AT [facility] code = 1538) [address] [place] [address], 770 30: Music Therapy Specialist/Techni grisel ID = [id number] for SCHMITZ, ISSAIRIS Lab Interpretation (test Abnormal code = 18770-6) [facility]-Glucose [id number] 07:55:54 Test Item Value Reference Range Interpretation Comments POC-Glucose Meter (test 120 mg/dL 70-110 H : TE STED AT [facility] code = 1538) [address] [place] [address], 770 30: Music Therapy Specialist/Techni grisel ID = [id number] for SCHMITZ, ISSAIRIS Lab Interpretation (test Abnormal code = 13043-0) [facility]-Glucose [id number] 07:55:54 Test Item Value Reference Range Interpretation Comments POC-Glucose Meter (test 120 mg/dL 70-110 H : TE STED AT [facility] code = 1538) [address] [place] [address], 770 30: Music Therapy Specialist/Techni grisel ID = [id number] for SCHMITZ, ISSAIRIS Lab Interpretation (test Abnormal code = 58213-7) [facility]-Glucose [id number] 07:55:54 Test Item Value Reference Range Interpretation Comments POC-Glucose Meter (test 120 mg/dL 70-110 H : TE STED AT [facility] code = 1538) [address] [place] [address], 770 30: Music Therapy Specialist/Techni grisel ID = [id number] for SCHMITZ, ISSAIRIS Lab Interpretation (test Abnormal code = 36200-7) [facility]-Glucose [id number] 07:55:54 Test Item Value Reference Range Interpretation Comments POC-Glucose Meter (test 120 mg/dL 70-110 H : TE STED AT [facility] code = 1538) [address] [place] [address], 770 30: Music Therapy Specialist/Techni grisel ID = [id number] for SCHMITZ, ISSAIRIS Lab Interpretation (test Abnormal code = 27053-4) [facility]-Glucose [id number] 07:55:54 Test Item Value Reference Range Interpretation Comments POC-Glucose Meter (test 120 mg/dL 70-110 H : TE STED AT [facility] code = 1538) [address] [place] [address], 770 30: Music Therapy Specialist/Techni grisel ID = [id number] for SCHMITZ, ISSAIRIS Lab Interpretation (test Abnormal code = 33083-1) [facility]-Glucose [id number] 07:55:54 Test Item Value Reference Range Interpretation Comments POC-Glucose Meter (test 120 mg/dL 70-110 H : TE STED AT [facility] code = 1538) [address] [place] [address], 770 30: Music Therapy Specialist/Techni grisel ID = [id number] for SCHMITZ, ISSAIRIS Lab Interpretation (test Abnormal code = 54565-8) [facility]-Glucose [id number] 07:55:54 Test Item Value Reference Range Interpretation Comments POC-Glucose Meter (test 120 mg/dL 70-110 H : TE STED AT [facility] code = 1538) [address] [place] [address], 770 30: Music Therapy Specialist/Techni grisel ID = [id number] for SCHMITZ, ISSAIRIS Lab Interpretation (test Abnormal code = 50361-9) [facility]-GLUCOSE [id number] 07:55:54 Test Item Value Reference Range Interpretation Comments POC-GLUCOSE METER 120 mg/dL 70-110 H : TESTED A T [facility] 6720 (BEAKER) (test code = [place], 1538) [address]: Music Therapy Specialist/Techni grisel ID = [id number] for MEREDITH DANG COMPREHENSIVE METABOLIC [id number] 07:31:16 Test Item Value Reference Range Interpretation [...] not appl icable for dialysis patien ts Music Therapy Specialist ID - [id number] (HEMOGRAM ONLY)2022-08-08 07:09:16 [...] WBC 0-0 (BEAKER) (test code = 413) POCT-GLUCOSE [id number] 21:14:58 Test Item Value Reference Range Interpretation Comments POC-GLUCOSE METER 121 mg/dL 70-110 H : Notified RN/MD: TESTED (BEAKER) (test code AT [place] [address] TRAE = 1538) [facility], [facility] 30: Music Therapy Specialist/Techni grisel ID = [id number] for FILOMENA MORRIS POCT-GLUCOSE [id number] 11:50:07 Test Item Value Reference Range Interpretation Comments POC-GLUCOSE METER 174 mg/dL 70-110 H : TESTED A T [facility] 6720 (BEAKER) (test code = [facility], 1538) [address]: Music Therapy Specialist/Techni grisel ID = [id number] for Sintia Womack POCT-GLUCOSE [id number] 10:11:53 Test Item Value Reference Range Interpretation Comments POC-GLUCOSE METER 104 mg/dL 70-110 : [facility] (BEAKER[facility] (test code [facility], = 1538) [address]: Music Therapy Specialist/Techni grisel ID = [id number] for Ryan guerreroPrasanna [place], [id number] 09:37:00INTRA OP IMAGING Reason for exam:->abnormal imagingCO[facility]EL : 1970 Sex: FAn imaging unit was utilized for this procedure. No radiologist interpretation was requested. Refer [facility] EMR for findings. Refer to PACS for any patient radiation dose information.POCT-GLUCOSE [id number] 07:56:51 Test Item Value Reference Range Interpretation Comments POC-GLUCOSE METER 99 mg/dL 70-110 : TESTED A T [facility] 6720 (BEAKER) (test code = [facility], 1538) [address]: Music Therapy Specialist/Techni grisel ID = [id number] for Marty damionjesus alberto Sintia (CELLAVISION MANUAL DIFF)2022-08-07 05:22:20 Test Item Value [...] CONCENTRATION Decreased (CELLAVISION)(BEAKER) (test code = 3438) Music Therapy Specialist ID - Neenaana comments: Slide comments:CBC W/PLT COUNT & AUTO [id number] 05:22:19 Test Item Value Reference Range Interpretation [...] (BEAKER) (test code = 413) BASIC METABOLIC [id number] 04:33:11 Test Item Value Reference Range Interpretation [...] not appl icable for dialysis patien ts Music Therapy Specialist ID - PIAYA [id number] 04:33:11 Test Item Value Reference Range Interpretation Comments MAGNESIUM (BEAKER) (test code = 1.9 mg/dL 1.6-2.6 627) Music Therapy Specialist ID - PIAYA LHEPATIC FUNCTION [id number] 04:33:11 Test Item Value Reference Range Interpretation Comments TOTAL PROTEIN (BEAKER) (test code = 6.5 gm/dL 6.0-8.3 770) ALBUMIN (BEAKER) (test code = 1145) 3.6 g/dL 3.5-5.0 BILIRUBIN TOTAL (BEAKER) (test code 0.4 mg/dL 0.2-1.2 = 377) BILIRUBIN DIRECT (BEAKER) (test 0.2 mg/dL 0.1-0.5 code = 706) ALKALINE PHOSPHATASE (BEAKER) (test 157 U/L 40-150 H code = 346) AST (SGOT) (BANNER) (test code = 20 U/L 5-34 353) ALT (SGPT) (BANNER) (test code = 18 U/L 6-55 347) Music Therapy Specialist ID - JM LPOCT-GLUCOSE [id number] 20:50:37 Test Item Value Reference Range Interpretation Comments POC-GLUCOSE METER 120 mg/dL 70-110 H : Notified RN/MD: (BANNER) (test code = TESTED AT [facility] 6720 1538) [facility], [address]: Music Therapy Specialist/Techni grisel ID = [id number] for Raimundo Darling POCT-GLUCOSE [id number] 17:14:28 Test Item Value Reference Range Interpretation Comments POC-GLUCOSE METER 90 mg/dL 70-110 : TESTED A T [facility] 6720 (BANNER) (test code = [facility], 1538) [address]: Music Therapy Specialist/Techni grisel ID = [id number] for Card enas, Sintia POCT-GLUCOSE [id number] 12:19:21 Test Item Value Reference Range Interpretation Comments POC-GLUCOSE METER 134 mg/dL 70-110 H : TESTED A T [facility] 6720 (BANNER) (test code = [facility], 1538) [address]: Music Therapy Specialist/Techni grisel ID = [id number] for Ca rdenas, Sintia CBC W/PLT COUNT & AUTO [id number] 08:08:18 Test Item Value Reference Range Interpretation Comments WHITE BLOOD CELL COUNT (BANNER) 1.7 K/ L 3.5-10.5 L (test code = 775) RED BLOOD CELL COUNT (AKER) 3.17 M/ L 3.93-5.22 L (test code = 761) HEMOGLOBIN (BEAKER) (test code = 10.0 GM/DL 11.2-15.7 L 410) HEMATOCRIT (AKER) (test code = 30.2 % 34.1-44.9 L 411) MEAN CORPUSCULAR VOLUME (BANNER) 95 fL 79-95 (test code = 753) MEAN CORPUSCULAR HEMOGLOBIN 31.5 pg 25.6-32.2 (AKER) (test code = 751) MEAN CORPUSCULAR HEMOGLOBIN [...] (CELLAVISION)(BEAKER) 0.07 K/uL 0.00-0.80 (test code = 9090) ATYPICAL LYMPHOCYTES - ABS 0.02 K/uL 0.00-0.00 H (CELLAVISION)(BEAKER) (test code = 6208) TOTAL COUNTED (BEAKER) (test code = 100 [...] CONCENTRATION Decreased (CELLAVISION)(BEAKER) (test code = 3438) Music Therapy Specialist ID - Praneeth Dato-onUser comments: Slide comments:POCT-GLUCOSE METER 2022-08-06 07:45:13 Test Item Value Reference Range Interpretation Comments POC-GLUCOSE METER 92 mg/dL 70-110 : TESTED A T [facility] 6720 (BEAKER) (test code = [place], 1538) [address]: Music Therapy Specialist/Techni grisel ID = [id number] for Card enas, Sintia HEPATIC FUNCTION [id number] 06:51:26 Test Item Value Reference Range Interpretation [...] (test code = 21 U/L 6-55 347) Music Therapy Specialist ID - MARCOBASIC METABOLIC [id number] 06:51:25 Test Item Value Reference Range Interpretation [...] not appl icable for dialysis patien ts Music Therapy Specialist ID - [id number] 06:51:25 Test Item Value Reference Range Interpretation Comments MAGNESIUM (BEAKER) (test code = 1.8 mg/dL 1.6-2.6 627) Music Therapy Specialist ID - JAXOPOCT-GLUCOSE [id number] 21:31:14 Test Item Value Reference Range Interpretation Comments POC-GLUCOSE METER 107 mg/dL 70-110 : TESTED A T [facility] 6720 (BEAKER) (test code = [facility], 1538) [address]842: Music Therapy Specialist/Techni grisel ID = [id number] for Nikunj Stapleton POCT-GLUCOSE [id number] 17:03:33 Test Item Value Reference Range Interpretation Comments POC-GLUCOSE METER 119 mg/dL 70-110 H : TESTED A T [facility] 6720 (BEAKER) (test code = [facility], 1538) [address]: Music Therapy Specialist/Techni grisel ID = [id number] for Harshal Guerrero CBC W/PLT COUNT & AUTO [id number] 12:37:24 Test Item Value Reference Range Interpretation [...] K/uL 0.00-0.00 H (CELLAVISION)(BEAKER) (test code = 3838) TOTAL COUNTED (BEAKER) (test code 100 = [...] CONCENTRATION Decreased (CELLAVISION)(BEAKER) (test code = 3438) Music Therapy Specialist CHARITO - Samantha OverholtUser comments: Slide comments:POCT-GLUCOSE METER 2022-08-05 12:17:20 Test Item Value Reference Range Interpretation Comments POC-GLUCOSE METER 102 mg/dL 70-110 : TESTED A T [facility] 6720 (BEAKER) (test code = [place], 1538) 96[address]: Music Therapy Specialist/Techni grisel ID = [id number] for Harshal Guerrero [id number] 12:11:34 Test Item Value Reference Range Interpretation Comments MAGNESIUM (BEAKER) (test code = 1.8 mg/dL 1.6-2.6 627) Music Therapy Specialist ID - AAHAMIDHEPATIC FUNCTION [id number] 12:11:34 Test Item Value Reference Range Interpretation [...] (test code = 25 U/L 6-55 347) Music Therapy Specialist ID - AAHAMIDBASIC METABOLIC [id number] 12:11:33 Test Item Value Reference Range Interpretation [...] mg/dL 8.4-10.2 (test code = 697) EGFR (ROBYN) 107 Interpretati on of eGFR (test code = mL/min/1.73 values Stage De scription 1092) sq m Result G1 Natalyia l or high >=90 G2 Mildly decreased [...] not appl icable for dialysis patien ts Music Therapy Specialist ID - AAHAMIDHIGH SENSITIVITY TROPONIN [id number] 12:08:29 Test Item Value Reference Range Interpretation Comments HIGH SENSITIVITY TROPONIN I (test < pg/ml <=17 code = 6293181) Music Therapy Specialist ID - EmmanuelThe RUG DYER STAT High Sensitivity Troponin-I results should be used in conjunction with other diagnostic information such as ECG, clinical observations and information, and patient symptoms to aid in the diagnosis of ND.MR, ABDOMEN, WITHOUT / WITH IV [id number] 10:38:00 Release to patient->ImmediateWhich [facility] / [facility] radiology location is preferred?->Givey ID = [id number]; Insurance Company Name = [employer]; Insurance Company Phone Number = ;[facility] Number = [id number] [facility] : 1970 Sex: [...] No new liver mass is identified. Signed: Harika Vargas Verified Date/Time: 05/31/2022 10:38:11 CT, CHEST, WITH IV [id number] 13:33:00Release to patient->ImmediateWhich [facility] / [facility] radiology location is preferred?->[facility]Perv[facility] = [id number]; Insurance Company Name = [employer]; Insurance Company Phone Number = ;Policy Number = [id number] [facility] : 1970 Sex: FFINAL [...] esophagus appears thick-walled, which may reflect esophagitis.Signed: Harika Vargasort Verified Date/Time: 05/28/2022 13:33:09 Reading Location: [facility] C013X [facility] Consult Reading Room POC-Creatinine 2022-02-04 14:21:17 Test Item Value Reference Range Interpretation Comments POC-Creatinine 0.7 mg/dL 0.6-1.3 : TESTED AT [facility] [address] (test code = [place] [address]-4) [address]: Music Therapy Specialist /Commercial Carpet Installer ID = [id number] for Yusra Rubio POC-EGFR (test 105 mL/min/1.73M2 Interpretat ion of eGFR code = 24009-2) Values Stage Description Result G1 Nataliya l [...] i s not applicable for dialysis patients [facility] HospitalVuyromjehu7002-50-41 14:21:17 Test Item Value Reference Range Interpretation Comments POC-Creatinine 0.7 mg/dL 0.6-1.3 : TESTED AT [facility] [address] (test code = [place] [address]-0) 28[address]: Music Therapy Specialist /Commercial Carpet Installer ID = [id number] for Yusra Rubio POC-EGFR (test 105 mL/min/1.73M2 Interpretat ion of eGFR code = 08931-5) Values Stage Description Result G1 Nataliya l [...] i s not applicable for dialysis patients [facility] HospitalXmgbqpuora2168-47-04 14:21:17 Test Item Value Reference Range Interpretation Comments POC-Creatinine 0.7 mg/dL 0.6-1.3 : TESTED AT [facility] [address] (test code = [place] [address]-6) 50930: Music Therapy Specialist /Commercial Carpet Installer ID = [id number] for Yusra Rubio POC-EGFR (test 105 mL/min/1.73M2 Interpretat ion of eGFR code = 33143-6) Values Stage Description Result G1 Nataliya l [...] i s not applicable for dialysis patients [facility] HospitalPkqfhiiudc0643-80-93 14:21:17 Test Item Value Reference Range Interpretation Comments POC-Creatinine 0.7 mg/dL 0.6-1.3 : TESTED AT [facility] [address] (test code = [place] [address]-4) 027[address]: Music Therapy Specialist /Commercial Carpet Installer ID = [id number] for Yusra Rubio POC-EGFR (test 105 mL/min/1.73M2 Interpretat ion of eGFR code = 56380-0) Values Stage Description Result G1 Nataliya l [...] i s not applicable for dialysis patients [facility] HospitalVdbiepyimn7111-03-23 14:21:17 Test Item Value Reference Range Interpretation Comments POC-Creatinine 0.7 mg/dL 0.6-1.3 : [facility] [address] [address] (test code = [place] [address]-9) [address]: Music Therapy Specialist /Commercial Carpet Installer ID = [id number] for Ramiro, Yusra POC-EGFR (test 105 mL/min/1.73M2 Interpretat ion of eGFR code = 20807-5) Values Stage Description Result G1 Nataliya l [...] i s not applicable for dialysis patients [facility]-Xfglqkuftb1366-25-59 14:21:17 Test Item Value Reference Range Interpretation Comments POC-Creatinine 0.7 mg/dL 0.6-1.3 : TESTED AT [facility] [address] (test code = [place] [address]-8) 02525: Music Therapy Specialist /Commercial Carpet Installer ID = [id number] for Yusra Rubio POC-EGFR (test 105 mL/min/1.73M2 Interpretat ion of eGFR code = 85806-0) Values Stage Description Result G1 Nataliya l or high >=90 G2 Mildly decreased 60-89 G3a Mildl y to moderately 45-5 9 G3b Moderately to s joile 30-44 G4 Severely dec reased 15-29 G5 Kidney Failu re <15Reported eGF R is based on the CKD-EPI 2021 equation that d oes not use a race coeffici ent Estimated GFR i s not as accurate as Cre atinine Clearance in pr edicting glomerular filt ration rate. Estimated GFR i s not applicable for dialysis patients [facility]-Inuvhdvuxp4552-28-94 14:21:17 Test Item Value Reference Range Interpretation Comments POC-Creatinine 0.7 mg/dL 0.6-1.3 : TESTED AT [facility] [address] (test code = [place] [address]-8) 32159: Music Therapy Specialist /Commercial Carpet Installer ID = [id number] for Yusra Rubio POC-EGFR (test 105 mL/min/1.73M2 Interpretat ion of eGFR code = 05594-6) Values Stage Description Result G1 Nataliya l [...] i s not applicable for dialysis patients [facility] HospitalQsgsoiuowa6915-29-06 14:21:17 Test Item Value Reference Range Interpretation Comments POC-Creatinine 0.7 mg/dL 0.6-1.3 : [facility] [address] (test code = [place] [address]-1) 69[address]: Music Therapy Specialist /Commercial Carpet Installer ID = [id number] for Yusra Rubio POC-EGFR (test 105 mL/min/1.73M2 Interpretat ion of eGFR code = 43460-8) Values Stage Description Result G1 Norm al or high >=90 [...] i s not applicable for dialysis patients [facility] HospitalCxuejzcsee6479-73-39 14:21:17 Test Item Value Reference Range Interpretation Comments POC-Creatinine 0.7 mg/dL 0.6-1.3 : TESTED AT [facility] [address] (test code = [place] [address]-8) 90153: Music Therapy Specialist /Commercial Carpet Installer ID = [id number] for Yusra Rubio POC-EGFR (test 105 mL/min/1.73M2 Interpretat ion of eGFR code = 01899-9) Values Stage Description Result G1 Nataliya l [...] i s not applicable for dialysis patients [facility] HospitalIotdahcaac6025-22-82 14:21:17 Test Item Value Reference Range Interpretation Comments POC-Creatinine 0.7 mg/dL 0.6-1.3 : TESTED AT [facility] [address] (test code = [place] [address]-4) 0[address]: Music Therapy Specialist /Commercial Carpet Installer ID = [id number] for Yusra Rubio POC-EGFR (test 105 mL/min/1.73M2 Interpretat ion of eGFR code = 12234-4) Values Stage Description Result G1 Nataliya l [...] i s not applicable for dialysis patients [facility] HospitalKyodiewhbt9470-39-55 14:21:17 Test Item Value Reference Range Interpretation Comments POC-Creatinine 0.7 mg/dL 0.6-1.3 : TESTED AT [facility] [address] (test code = [place] [address]-9) 725[address]: Music Therapy Specialist /Commercial Carpet Installer ID = [id number] for Yusra Rubio POC-EGFR (test 105 mL/min/1.73M2 Interpretat ion of eGFR code = 21731-6) Values Stage Description Result G1 Nataliya l [...] i s not applicable for dialysis patients [facility]-Sxqxrsnrkb3051-17-81 14:21:17 Test Item Value Reference Range Interpretation Comments POC-Creatinine 0.7 mg/dL 0.6-1.3 : TESTED AT [facility] [address] (test code = [place] [address]-6) 15043: Music Therapy Specialist /Commercial Carpet Installer ID = [id number] for Yusra Rubio POC-EGFR (test 105 mL/min/1.73M2 Interpretat ion of eGFR code = 04876-8) Values Stage Description Result G1 Norm al or high >=90 [...] i s not applicable for dialysis patients [facility] HospitalPbswnmfwww5366-30-12 14:21:17 Test Item Value Reference Range Interpretation Comments POC-Creatinine 0.7 mg/dL 0.6-1.3 : [facility] [address] [address] (test code = [place] [address]-9) 377[address]: Music Therapy Specialist /Commercial Carpet Installer ID = [id number] for Yusra Rubio POC-EGFR (test 105 mL/min/1.73M2 Interpretat ion of eGFR code = 58454-9) Values Stage Description Result G1 Nataliya l [...] i s not applicable for dialysis patients [facility]-Vvfeqabdwl1649-76-05 14:21:17 Test Item Value Reference Range Interpretation Comments POC-Creatinine 0.7 mg/dL 0.6-1.3 : TESTED AT [facility]-KG [address] (test code = [place] [address]-8) 23627: Music Therapy Specialist /Commercial Carpet Installer ID = [id number] for Yusra Rubio POC-EGFR (test 105 mL/min/1.73M2 Interpretat ion of eGFR code = 60481-8) Values Stage Description Result G1 Nataliya l [...] i s not applicable for dialysis patients [facility] 14:21:17 Test Item Value Reference Range Interpretation Comments POC-Creatinine 0.7 mg/dL 0.6-1.3 : TESTED AT [facility]- [address] (test code = [place] [address]-7) 52722: Music Therapy Specialist /Commercial Carpet Installer ID = [id number] for Yusra Rubio POC-EGFR (test 105 mL/min/1.73M2 Interpretat ion of eGFR code = 82841-9) Values Stage Description Result G1 Nataliya l [...] i s not applicable for dialysis patients [facility]Ksiqeirirg5042-03-38 14:21:17 Test Item Value Reference Range Interpretation Comments POC-Creatinine 0.7 mg/dL 0.6-1.3 : TESTED AT [facility]-KG [address] (test code = [place] [address]-1) 87910: Music Therapy Specialist /Commercial Carpet Installer ID = [id number] for Yusra Rubio POC-EGFR (test 105 mL/min/1.73M2 Interpretat ion of eGFR code = 77883-0) Values Stage Description Result G1 Nataliya l [...] i s not applicable for dialysis patients [facility]-Noldmupvju3784-92-24 14:21:17 Test Item Value Reference Range Interpretation Comments POC-Creatinine 0.7 mg/dL 0.6-1.3 : TESTED AT [facility]-KG [address] (test code = [place] [address]-1) 25286: Music Therapy Specialist /Commercial Carpet Installer ID = [id number] for Yusra Rubio POC-EGFR (test 105 mL/min/1.73M2 Interpretat ion of eGFR code = 47643-6) Values Stage Description Result G1 Nataliya l [...] i s not applicable for dialysis patients [facility]-Fslxjactok9662-97-22 14:21:17 Test Item Value Reference Range Interpretation Comments POC-Creatinine 0.7 mg/dL 0.6-1.3 : TESTED AT [facility]-KG [address] (test code = [place] [address]-1) 07031: Music Therapy Specialist /Commercial Carpet Installer ID = [id number] for Yusra Rubio POC-EGFR (test 105 mL/min/1.73M2 Interpreta tion of eGFR code = 76728-1) Values Stage Description Result G1 Nataliya l [...] i s not applicable for dialysis patients [facility]-Lswzaqhaey6681-64-77 14:21:17 Test Item Value Reference Range Interpretation Comments POC-Creatinine 0.7 mg/dL 0.6-1.3 : TESTED AT [facility] [address] (test code = [place] [address]-8) 43223: Music Therapy Specialist /Commercial Carpet Installer ID = [id number] for Yusra Rubio POC-EGFR (test 105 mL/min/1.73M2 Interpretat ion of eGFR code = 85319-6) Values Stage Description Result G1 Nataliya l [...] i s not applicable for dialysis patients [facility] HospitalOzhenurgjx0914-87-45 14:21:17 Test Item Value Reference Range Interpretation Comments POC-Creatinine 0.7 mg/dL 0.6-1.3 : TESTED AT [facility] [address] (test code = [place] [address]-4) 24482: Music Therapy Specialist /Commercial Carpet Installer ID = [id number] for Yusra Rubio POC-EGFR (test 105 mL/min/1.73M2 Interpretat ion of eGFR code = 38184-4) Values Stage Description Result G1 Nataliya l [...] i s not applicable for dialysis patients [facility] HospitalMdxomysbae3260-96-47 14:21:17 Test Item Value Reference Range Interpretation Comments POC-Creatinine 0.7 mg/dL 0.6-1.3 : TESTED AT [facility]-KG [address] (test code = [place] [address]-6) 00100: Music Therapy Specialist /Commercial Carpet Installer ID = [id number] for Yusra Rubio POC-EGFR (test 105 mL/min/1.73M2 Interpretat ion of eGFR code = 46694-6) Values Stage Description Result G1 Nataliya l [...] i s not applicable for dialysis patients [facility] HospitalRtumidysmx7939-29-03 14:21:17 Test Item Value Reference Range Interpretation Comments POC-Creatinine 0.7 mg/dL 0.6-1.3 : TESTED AT [facility] [address] (test code = [place] [address]-5) 91108: Music Therapy Specialist /Commercial Carpet Installer ID = [id number] for Yusra Rubio POC-EGFR (test 105 mL/min/1.73M2 Interpretat ion of eGFR code = 17614-3) Values Stage Description Result G1 Nataliya l [...] i s not applicable for dialysis patients [facility]-Vulcgygtyy7808-95-94 14:21:17 Test Item Value Reference Range Interpretation Comments POC-Creatinine 0.7 mg/dL 0.6-1.3 : TESTED AT [facility] [address] (test code = [place] [address]-0) 65246: Music Therapy Specialist /Commercial Carpet Installer ID = [id number] for Yusra Rubio POC-EGFR (test 105 mL/min/1.73M2 Interpretat ion of eGFR code = 76279-7) Values Stage Description Result G1 Nataliya l [...] i s not applicable for dialysis patients [facility] HospitalSfrkmsoemu5767-93-41 14:21:17 Test Item Value Reference Range Interpretation Comments POC-Creatinine 0.7 mg/dL 0.6-1.3 : TESTED AT [facility] [address] (test code = [place] [address]-9) 50649: Music Therapy Specialist /Commercial Carpet Installer ID = [id number] for Yusra Rubio POC-EGFR (test 105 mL/min/1.73M2 Interpretat ion of eGFR code = 52947-0) Values Stage Description Result G1 Nataliya l [...] i s not applicable for dialysis patients [facility]:17 Test Item Value Reference Range Interpretation Comments POC-CREATININ 0.7 mg/dL 0.6-1.3 : TESTED AT [facility] [address] (ROBYN) [place] [address]: (test code = Music Therapy Specialist/Techni grisel ID = [id number]) [id number] for Aust inYusra POC-EGFR 105 Interpretation of eGFR (ROBYN) mL/min/1.73M2 Values Stage D escription (test code [...] icable for dialysis patien ts MR, ABDOMEN, [id number] 08:29:00Unlisted Reason for Exam - Click Yes and Enter Reason Below->Yes Unlisted Reason for Exam->CHOLANGIOCARCINOMA [facility] 1970 Sex: FFINAL [...] diffuse fatty infiltration of the liver Signed: Raza Fitzgerald [facility] Verified Date/Time: 01/11/2022 08:29:18 [id number] 09:18:50 Test Item Value Reference Range Interpretation Comments MAGNESIUM (BEAKER) (test code = 1.6 mg/dL 1.6-2.6 627) COMPREHENSIVE METABOLIC [id number] 09:18:45 Test Item Value Reference Range Interpretation [...] PATIEN TS. CBC W/PLT COUNT & AUTO [id number] 08:59:07 Test Item Value Reference Range Interpretation [...] 0-1 PERCENT (BEAKER) (test code = 2801) [id number] 08:53:09 Test Item Value Reference Range Interpretation Comments MAGNESIUM (BEAKER) (test code = 1.7 mg/dL 1.6-2.6 627) COMPREHENSIVE METABOLIC [id number] 08:53:09 Test Item Value Reference Range Interpretation [...] PATIEN TS. CBC W/PLT COUNT & AUTO [id number] 08:31:05 Test Item Value Reference Range Interpretation [...] MORPHOLOGY (BEAKER) (test code Normal = 762) [id number] 08:46:31 Test Item Value Reference Range Interpretation Comments MAGNESIUM (BEAKER) (test code = 1.9 mg/dL 1.6-2.6 627) COMPREHENSIVE METABOLIC [id number] 08:46:26 Test Item Value Reference Range Interpretation [...] PATIEN TS. CBC W/PLT COUNT & AUTO [id number] 08:44:29 Test Item Value Reference Range Interpretation [...] 9.6 fL 9.4-12.3 (test code = 754) [id number] 08:42:02 Test Item Value Reference Range Interpretation Comments MAGNESIUM (BEAKER) (test code = 1.7 mg/dL 1.6-2.6 627) COMPREHENSIVE METABOLIC [id number] 08:41:56 Test Item Value Reference Range Interpretation [...] PATIEN TS. CBC W/PLT COUNT & AUTO [id number] 08:22:03 Test Item Value Reference Range Interpretation [...] PERCENT (BEAKER) (test code = 2801) CT, [id number] 09:13:00Unlisted Reason for Exam - Click Yes and Enter Reason Below->YesUnlisted Reason for Exam->cholangiocarcinomaIs this for enterography?->NoWill this procedure require oral contrast?->Yes [facility] 1970 Sex: FFINAL REPORT CLINICAL HISTORY: Unlisted Reason for ExamCHOLANGIOCARCINOMA FINDINGS: Multiple axial images of the chest, abdomen and pelvis were performed after the uncomplicated administration of IV contrast. Oral contrast was not given. This exam was performed according to our [facility] dose-optimization program, which includes automated exposure control, [...] MDReport Verified Date/Time: 209:13:58 CT, CHEST, WITH [id number] 09:13:00Unlisted Reason for Exam - Click Yes and Enter Reason Below->YesUnlisted Reason for Exam->CHOLANGIOCARCINOMA [facility] : 1970 Sex: FFINAL REPORT CLINICAL HISTORY: Unlisted Reason for ExamCHOLANGIOCARCINOMA FINDINGS: Multiple axial images of the chest, abdomen and pelvis were performed after the uncomplicated administration of IV contrast. Oral contrast was not given. This exam was performed according to our depa rtmental dose-optimization program, which includes automated exposure control, adjustment of the mA and/or kV according to patient size and/or use of the iterative reconstruction technique. Comparison:07/28/2021. Chest: Lung parenchyma: No significant findings. No [...] Skeleton: No lytic or blastic lesions in thethoracic skeleton. Other:A right IJ chest port is in place Abdomen and pelvis: Liver: Subtle interval decrease in the size of an ill-defined hypodense mass in segments 4 and 8 of the liver, measuring ap proximately 7.8 x 4.9 cm on today's examination [...] findings. Kidneys and ureters: No significant findings. Stomach and Duodenum: No significant findings. Pancreas: No significant findings. Bowel: Left colonic diverticulosis without CT evidence for diverticulitis. Appendix: Normal. Bladder: No significant findings.Major vascular structures: No significant findings. Reproductive organs: [...] of the liver measuring 1.2 cm and 0.6cm, respectively. Additional hepatic malignant lesions are not excluded. Better evaluation with pre and postcontrast liver protocol MRI is recommended. Stable appearance and position of a metallic bileduct stent. No CT evidence of biliary ductal dilatation. No evidence of metastatic disease to the chest. Other findings, as described above. Signed: Madi Terrazas MDReport Verified Date/Time: 11/23/2021 09:13:58 BONE AND/OR JOINT IMAGING, WHOLE [id number] 16:18:00Unlisted Reason for Exam - Click Yes and Enter Reason Below->YesUnlisted Reason for Exam->[facility] 1970 Sex: FFINAL REPORT PROCEDURE: BONE SCAN, WHOLE BODY CPT CODE: 74564 INDICATION: Cholangiocarcinoma PROTOCOL: 20.0 mCi of Tc-99m [...] MORPHOLOGY (BEAKER) (test code Normal = 762) [id number] 08:33:24 Test Item Value Reference Range Interpretation Comments MAGNESIUM (BEAKER) (test code = 1.7 mg/dL 1.6-2.6 627) COMPREHENSIVE METABOLIC [id number] 08:33:19 Test Item Value Reference Range Interpretation [...] PATIEN TS. CBC W/PLT COUNT & AUTO [id number] 08:20:13 Test Item Value Reference Range Interpretation [...] 754) ANG, TUNNEL CATH CENTRAL INS W/PORT [id number] 14:46:00Reason for Exam:- >C22.1 CHOLANGIOCARC [facility] : 1970 Sex: FFINAL REPORT [...] catheter terminates at the cavoatrial junction. Signed: Nydia Ibrahim MDReport Verified Date/Time: 08/04/2021 14:46:32 ReadingLocation: [facility] Radiology Reading Room BONE AND/OR JOINT IMAGING, WHOLE [id number] 14:18:00Unlisted Reason for Exam - Click Yes and Enter Reason Below->YesUnlisted Reason for Exam->[facility]olangiocarcinoma [facility] : 1970 Sex: FFINAL REPORT PROCEDURE: BONE SCAN, WHOLE BODY CPT CODE: 05146 INDICATION: Cholangiocarcinoma PROTOCOL: 21.7 mCi of Tc-99m [...] Angelo Verified Date/Time: 08/04/2021 14:18:58 Reading Location: [address] [place] [address] Reading Room Prothrombin time/[id number] 09:52:13 Test Item Value Reference Interpretation Comments Range Protime (test code = 12.7 See_Comment [Autom ated 5902-2) message] The system which generated this result transmitted reference range : 11.8 - 14.4 seconds. The reference range was not used to interpret this result as normal/abnormal . INR (test code = 1.00 1.20-1.50 L 6301-6) SOHPIA (test code = RECOMMENDED SOPHIA) COUMADIN/WARFARIN INR THERAPY RANGESSTANDARD DOSE: 2.0 - 3.0 Includes: PROPHYLAXIS for venous thrombosis, systemic embolization; TREATMENT for venous thrombosis and/or pulmonary embolus.HIGH RISK: Target INR is 2.5-3.5 for patients with mechanical heart valves. Lab Interpretation Abnormal (test code = 33180-0) [facility] CenterProthrombin time/[id number] 09:52:13 Test Item Value Reference Interpretation Comments [...] valves. Lab Interpretation Abnormal (test code = 64061-5) [facility] CenterProthrombin time/[id number] 09:52:13 Test Item Value Reference Interpretation Comments [...] valves. Lab Interpretation Abnormal (test code = 18412-5) [facility] CenterProthrombin time/[id number] 09:52:13 Test Item Value Reference Interpretation Comments [...] valves. Lab Interpretation Abnormal (test code = 29015-8) [facility] CenterProthrombin time/[id number] 09:52:13 Test Item Value Reference Interpretation Comments [...] valves. Lab Interpretation Abnormal (test code = 23501-8) [facility] CenterProthrombin time/[id number] 09:52:13 Test Item Value Reference Interpretation Comments [...] valves. Lab Interpretation Abnormal (test code = 81845-2) [facility] CenterProthrombin time/[id number] 09:52:13 Test Item Value Reference Interpretation Comments [...] valves. Lab Interpretation Abnormal (test code = 19781-5) [facility] CenterProthrombin time/[id number] 09:52:13 Test Item Value Reference Interpretation Comments [...] valves. Lab Interpretation Abnormal (test code = 67371-4) [facility] CenterProthrombin time/[id number] 09:52:13 Test Item Value Reference Interpretation Comments [...] valves. Lab Interpretation Abnormal (test code = 40361-8) [facility] CenterProthrombin time/[id number] 09:52:13 Test Item Value Reference Interpretation Comments [...] valves. Lab Interpretation Abnormal (test code = 08846-3) [facility] CenterProthrombin time/[id number] 09:52:13 Test Item Value Reference Interpretation Comments [...] valves. Lab Interpretation Abnormal (test code = 46169-1) [facility] CenterProthrombin time/[id number] 09:52:13 Test Item Value Reference Interpretation Comments [...] valves. Lab Interpretation Abnormal (test code = 53323-2) [facility] CenterProthrombin time/[id number] 09:52:13 Test Item Value Reference Interpretation Comments Range Protime (test code = 12.7 See_Comment [Autom ated 9062-2) message] The system which generated this result [...] valves. Lab Interpretation Abnormal (test code = 39184-4) [facility] CenterPROTHROMBIN TIME/[id number] 09:52:13 Test Item Value Reference Range Interpretation Comments PROTIME (BEAKER) (test code = 12.7 seconds 11.8-14.4 759) INR (BEAKER) (test code = 370) 1.00 1.20-1.50 L RECOMMENDED COUMADIN/WARFARIN INR THERAPY RANGESSTANDARD DOSE: 2.0 - 3.0 Includes: PROPHYLAXIS for venous thrombosis, systemic embolization; TREATMENT for venous thrombosis and/or pulmonary embolus.HIGH RISK: Target INR is 2.5-3.5 for patients with mechanical heart valves.Platelet [id number] 09:49:17 Test Item Value Reference Range Interpretation Comments Platelets (test code = 299 See_Comment [Aut omated message] 417-3) The system [employer] generated this result transmitted ref erence range: 150 - 43 0 K/CU MM. The referen ce range was not u sed to interpret this result as normal/abnor mal. Lab Interpretation (test Normal code = 57454-9) [facility] [id number] 09:49:17 Test Item Value Reference Range Interpretation Comments Platelets (test code = 299 See_Comment [Aut omated message] 777-3) The system [employer] generated this result transmitted ref erence range: 150 - 43 0 K/CU MM. The referen ce range was not u sed to interpret this result as normal/abnor mal. Lab Interpretation (test Normal code = 53763-9) [facility]2022-02-14 09:49:17 Test Item Value Reference Range Interpretation Comments Platelets (test code = 299 See_Comment [Aut omated message] 777-3) The system [employer] generated this result transmitted ref erence range: 150 - 43 0 K/CU MM. The referen ce range was not u sed to interpret this result as normal/abnor mal. Lab Interpretation (test Normal code = 36088-4) [facility]2022-02-14 09:49:17 Test Item Value Reference Range Interpretation Comments Platelets (test code = 299 See_Comment [Aut omated message] 777-3) The system [employer] generated this result transmitted ref erence range: 150 - 43 0 K/CU MM. The referen ce range was not u sed to interpret this result as normal/abnor mal. Lab Interpretation (test Normal code = 92663-7) [facility]2022-02-14 09:49:17 Test Item Value Reference Range Interpretation Comments Platelets (test code = 299 See_Comment [Aut omated message] 777-3) The system [employer] generated this result transmitted ref erence range: 150 - 43 0 K/CU MM. The referen ce range was not u sed to interpret this result as normal/abnor mal. Lab Interpretation (test Normal code = 93877-8) [facility] [id number] 09:49:17 Test Item Value Reference Range Interpretation Comments Platelets (test code = 299 See_Comment [Aut omated message] 777-3) The system [employer] generated this result transmitted ref erence range: 150 - 43 0 K/CU MM. The referen ce range was not u sed to interpret this result as normal/abnor mal. Lab Interpretation (test Normal code = 85844-3) [facility] [id number] 09:49:17 Test Item Value Reference Range Interpretation Comments Platelets (test code = 299 See_Comment [Aut omated message] 777-3) The system [employer] generated this result transmitted ref erence range: 150 - 43 0 K/CU MM. The referen ce range was not u sed to interpret this result as normal/abnor mal. Lab Interpretation (test Normal code = 04680-1) [facility] [id number] 09:49:17 Test Item Value Reference Range Interpretation Comments Platelets (test code = 299 See_Comment [Aut omated message] 777-3) The system [employer] generated this result transmitted ref erence range: 150 - 43 0 K/CU MM. The referen ce range was not u sed to interpret this result as normal/abnor mal. Lab Interpretation (test Normal code = 98676-9) [facility] [id number] 09:49:17 Test Item Value Reference Range Interpretation Comments Platelets (test code = 299 See_Comment [Aut omated message] 777-3) The system [employer] generated this result transmitted ref erence range: 150 - 43 0 K/CU MM. The referen ce range was not u sed to interpret this result as normal/abnor mal. Lab Interpretation (test Normal code = 19460-2) [facility] [id number] 09:49:17 Test Item Value Reference Range Interpretation Comments Platelets (test code = 299 See_Comment [Aut omated message] 777-3) The system [employer] generated this result transmitted ref erence range: 150 - 43 0 K/CU MM. The referen ce range was not u sed to interpret this result as normal/abnor mal. Lab Interpretation (test Normal code = 30683-5) [facility] [id number] 09:49:17 Test Item Value Reference Range Interpretation Comments Platelets (test code = 299 See_Comment [Aut omated message] 777-3) The system [employer] generated this result transmitted ref erence range: 150 - 43 0 K/CU MM. The referen ce range was not u sed to interpret this result as normal/abnor mal. Lab Interpretation (test Normal code = 30109-3) [facility] CenterPlatelet [id number] 09:49:17 Test Item Value Reference Range Interpretation Comments Platelets (test code = 299 See_Comment [Aut omated message] 937-3) The system [employer] generated this result transmitted ref erence range: 150 - 43 0 K/CU MM. The referen ce range was not u sed to interpret this result as normal/abnor mal. Lab Interpretation (test Normal code = 04984-3) [facility] CenterPl[facility] [id number] 09:49:17 Test Item Value Reference Range Interpretation Comments Platelets (test code = 299 See_Comment [Aut omated message] 017-3) The system [employer] generated this result transmitted ref erence range: 150 - 43 0 K/CU MM. The referen ce range was not u sed to interpret this result as normal/abnor mal. Lab Interpretation (test Normal code = 06744-2) [facility] CenterPLATELET [id number] 09:49:17 Test Item Value Reference Range Interpretation Comments PLATELET COUNT (BEAKER) (test 299 K/CU MM 150-430 code = 756) CT, [id number] 17:48:00Unlisted Reason for Exam - Click Yes and Enter Reason Below->YesUnlisted Reason for Exam->CholangiocarcinomaIs this for enterography?->NoWill this procedure require oral contrast?->No [facility] 1970 Sex: FFINAL [...] which are unchanged. 5.Left colonic diverticulosis. Signed: Alexi Chi VerifiedDate/Time: 07/30/2021 17:48:07 Reading Location: [facility] Diagnostic Imaging Reading Room - [facility] 1.[address], CHEST, WITH IV [id number] 17:48:00Unlisted Reason for Exam - Click Yes and Enter Reason Below->YesUnlisted Reason for Exam->cholangiocarcinoma [facility] 1970 Sex: FFINAL [...] which are unchanged. 5.Left colonic diverticulosis. Signed: Alexi Chi MDReport VerifiedDate/Time: 07/30/2021 17:48:07 Reading Location: [facility] Diagnostic Imaging Reading Room - [facility] 1.310 .12 Blood Culture - Routine (Left [...] recovery and/or detection times of some organisms. [facility] - [facility] (Left Venipuncture)2021-07-12 [...] recovery and/or detection times of some organisms. [facility] (Left Venipuncture)2021-07-12 [...] recovery and/or detection times of some organisms. [facility] ([facility] Venipuncture)2021-07-12 [...] recovery and/or detection times of some organisms. [facility]21[facility]12 17:00:51 Test Item Value Reference Range Interpretation Comments Result (test code = No growth in 5 days 6463-4) SOPHIA (test code = SOPHIA) The specimen volume collected for this blood culture was below the optimum (10 mL per bottle or 20 mL total). Use of lower volumes may adversely affect recovery and/or detection times of some organisms. [facility] ([facility] Venipuncture)2021-07-12 [...] recovery and/or detection times of some organisms. [facility]uncture)2021-07-12 17:00:51 Test Item Value Reference Range Interpretation Comments Result (test code = No growth in 5 days 6463-4) SOPHIA (test code = SOPHIA) The specimen volume collected for this blood culture was below the optimum (10 mL per bottle or 20 mL total). Use of lower volumes may adversely affect recovery and/or detection times of some organisms. [facility])2021-07-12 17:00:51 Test Item Value Reference Range Interpretation Comments Result (test code = No growth in 5 days 6463-4) SOPHIA (test code = SOPHIA) The specimen volume collected for this blood culture was below the optimum (10 mL per bottle or 20 mL total). Use of lower volumes may adversely affect recovery and/or detection times of some organisms. [facility] Culture - Routine (Left Venipuncture)2021-07-12 17:00:51 Test Item Value Reference Range Interpretation Comments Result (test code = No growth in 5 days 6463-4) SOPHIA (test code = SOPHIA) The specimen volume collected for this blood culture was below the optimum (10 mL per bottle or 20 mL total). Use of lower volumes may adversely affect recovery and/or detection times of some organisms. [facility] [id number] 17:00:51 Test Item Value Reference Range Interpretation Comments CULTURE (BEAKER) (test No growth in 5 days code = 1095) The specimen volume collected for this blood culture was below the optimum (10 mL per bottle or 20 mL total). Use of lower volumes may adversely affect recovery and/or detection times of some organisms.BLOOD [id number] 17:00:44 Test Item Value Reference Range Interpretation [...] Albumin (test code = 3.5 g/dL 3.5-5.0 71927-5) Alkaline Phosphatase 275 U/L 40-150 H (test code = 6768-6) Total Bilirubin (test 1.8 mg/dL 0.2-1.2 H code = 1975-2) Sodium (test code = 133 meq/L 136-145 L 2951-2) Potassium (test code 4.2 meq/L 3.5-5.1 = 2823-3) Chloride (test code = 95 meq/L 98-107 L 2075-0) CO2 (test code = 28 meq/L 22-29 8-9) BUN (test code = 9 mg/dL 7- 3094-0) Creatinine (test code 0.79 mg/dL 0.57-1.25 = 2160-0) Glucose (test code = 80 mg/dL 70-105 2345-7) Calcium (test code = 8.3 mg/dL 8.4-10.2 L 38314-6) AST (test code = 45 U/L 5-34 H 1920-8) ALT (test code = 34 U/L 6-55 1742-6) EGFR (test code = 77 mL/min/1.73 [place] [address]-2) NOT ACCURATE CREATININE CLEARANCE IN PREDICTING GLOMERULAR FILTRATION RATE . ESTIMATED GFR I S NOT APPLICABLE FOR DIALYSIS PATIEN TS. SOPHIA (test code = SOPHIA) Music Therapy Specialist ID - PIAYA L Lab Interpretation Abnormal (test code = 72976-0) [facility] 06[facility]13:57 Test Item Value Reference Range Interpretation Comments Magnesium (test code = 1.3 mg/dL 1.6-2.6 L 71186-4) SOPHIA (test code = SOPHIA) Music Therapy Specialist ID - PIAYA L Lab Interpretation (test Abnormal code = 11154-5) [facility] CenterCom[facility] metabolic [id number] 06:13:57 Test Item Value Reference Range Interpretation Comments Protein, Total (test 6.9 See_Comment [Autom ated code = 2885-2) message] The system which generated this result transmit manoj reference range : 6.0 - 8.3 gm/dL . The reference range was not u sed to interpret th is result as normal/abnormal . Albumin (test code = 3.5 g/dL 3.5-5.0 34953-2) Alkaline Phosphatase 275 U/L 40-150 H (test code = 6768-6) Total Bilirubin (test 1.8 mg/dL 0.2-1.2 H code = 1975-2) Sodium (test code = 133 meq/L 136-145 L 2951-2) Potassium (test code 4.2 meq/L 3.5-5.1 = 2823-3) Chloride (test code = 95 meq/L 98-107 L 2075-0) CO2 (test code = 28 meq/L 22-29 8-9) BUN (test code = 9 mg/dL 7-21 3094-0) Creatinine (test code 0.79 mg/dL 0.57-1.25 = 2160-0) Glucose (test code = 80 mg/dL 70-105 2345-7) Calcium (test code = 8.3 mg/dL 8.4-10.2 L 08165-0) AST (test code = 45 U/L 5-34 H 1920-8) ALT (test code = 34 U/L 6-55 1742-6) EGFR (test code = 77 mL/min/1.[place] [address]-5) NOT ACCURATE CREATININE CLEARANCE IN PREDICTING GLOMERULAR FILTRATION RATE . ESTIMATED GFR I S NOT APPLICABLE FOR DIALYSIS PATIEN TS. SOPHIA (test code = SOPHIA) Music Therapy Specialist ID - PIAYA L Lab Interpretation Abnormal (test code = 97381-4) [facility] 06:13:57 Test Item Value Reference Range Interpretation Comments Magnesium (test code = 1.3 mg/dL 1.6-2.6 L 42263-1) SOPHIA (test code = SOPHIA) Music Therapy Specialist ID - PIAYA L Lab Interpretation (test Abnormal code = 24474-0) [facility] CenterCOMPRE[facility]ENSIVE METABOLIC [id number] 06:13:57 Test Item Value Reference Range Interpretation [...] S NOT APPLICABLE FOR DIALYSIS PATIEN TS. Music Therapy Specialist ID - PIARMANDO [id number] 06:13:57 Test Item Value Reference Range Interpretation Comments MAGNESIUM (BEAKER) (test code = 1.3 mg/dL 1.6-2.6 L 627) Music Therapy Specialist ID - JM LCalcium, [id number] 05:25:30 Test Item Value Reference Range Interpretation Comments Calcium, Ion (test code = 1993-08) 1.01 mmol/L 1.12-1.27 L pH, Blood (test code = 26885-6) 7.40 Lab Interpretation (test code = Abnormal 48171-4) [facility], [id number] 05:25:30 Test Item Value Reference Range Interpretation Comments Calcium, Ion (test code = 1993-08) 1.01 mmol/L 1.12-1.27 L pH, Blood (test code = 30478-2) 7.40 Lab Interpretation (test code = Abnormal 42367-9) [facility], [id number] 05:25:30 Test Item Value Reference Range Interpretation Comments Calcium, Ion (test code = 1993-08) 1.01 mmol/L 1.12-1.27 L pH, Blood (test code = 68536-1) 7.40 Lab Interpretation (test code = Abnormal 20833-9) [facility], [id number] 05:25:30 Test Item Value Reference Range Interpretation Comments Calcium, Ion (test code = 1993-08) 1.01 mmol/L 1.12-1.27 L pH, Blood (test code = 17861-1) 7.40 Lab Interpretation (test code = Abnormal 51013-8) [facility], [id number] 05:25:30 Test Item Value Reference Range Interpretation Comments Calcium, Ion (test code = 1993-08) 1.01 mmol/L 1.12-1.27 L pH, Blood (test code = 55287-1) 7.40 Lab Interpretation (test code = Abnormal 38043-1) [facility], [id number] 05:25:30 Test Item Value Reference Range Interpretation Comments Calcium, Ion (test code = 1993-08) 1.01 mmol/L 1.12-1.27 L pH, Blood (test code = 94220-1) 7.40 Lab Interpretation (test code = Abnormal 74370-9) [facility], [id number] 05:25:30 Test Item Value Reference Range Interpretation Comments Calcium, Ion (test code = 1993-) 1.01 mmol/L 1.12-1.27 L pH, Blood (test code = 51258-6) 7.40 Lab Interpretation (test code = Abnormal 40332-0) [facility], [id number] 05:25:30 Test Item Value Reference Range Interpretation Comments Calcium, Ion (test code = 1993-08) 1.01 mmol/L 1.12-1.27 L pH, Blood (test code = 53641-1) 7.40 Lab Interpretation (test code = Abnormal 03421-3) [facility] [place], [id number] 05:25:30 Test Item Value Reference Range Interpretation Comments Calcium, Ion (test code = 1993-08) 1.01 mmol/L 1.12-1.27 L pH, Blood (test code = 82951-1) 7.40 Lab Interpretation (test code = Abnormal 45001-1) [facility], [id number] 05:25:30 Test Item Value Reference Range Interpretation Comments CALCIUM IONIZED (BEAKER) (test 1.01 mmol/L 1.12-1.27 L code = 698) PH, BLOOD (BEAKER) (test code = 7.40 1810) CBC with platelet count + automated [id number] 05:06:06 Test Item Value Reference Range Interpretation Comments WBC (test code = 6690-2) 8.4 See_Comment [A utomated message] The system [employer] generated this result transmitted ref erence range: 3.5 - 10 .5 K/L. The refe rence range was not u sed to interpret this result as normal/abnor mal. RBC (test code = 789-8) 4.29 See_Comment [Au tomated message] The system [employer] generated this result transmitted ref erence range: 3.93 - 5 .22 M/L. The refe rence range was not u sed to interpret this result as normal/abnor mal. MCHC (test code = 786-4) 31.6 See_Comment L [A utomated message] The system [employer] generated this result transmitted ref erence range: [...] See_Comment [Aut omated message] 777-3) The system [employer] generated this result transmitted ref erence range: 150 - 45 0 K/CU MM. The referen ce range was not u sed to interpret this result as normal/abnor mal. MPV (test code = 10.1 fL 9.4-12.3 94538-3) nRBC (test code = 413) 0 See_Comment [Aut omated message] The system [employer] generated this result transmitted ref erence range: [...] See_Comment [Aut omated message] 670) The system [employer] generated this result transmitted ref erence range: 1.56 - 6 .13 K/L. The refe rence range was not u sed to interpret this result as normal/abnor mal. # Lymphs (test code = 1.77 See_Comment [Auto mated message] 414) The system [employer] generated this result transmitted ref erence range: 1.18 - 3 .74 K/L. The refe rence range was not u sed to interpret this result as normal/abnor mal. # Monos (test code = 0.52 See_Comment H [Autom ated message] 415) The system [employer] generated this result transmitted ref erence range: 0.24 - 0 .36 K/L. The refe rence range was not u sed to interpret this result as normal/abnor mal. # Eos (test code = 416) 0.06 See_Comment [Au tomated message] The system [employer] generated this result transmitted ref erence range: 0.04 - 0 .36 K/L. The refe rence range was not u sed to interpret this result as normal/abnor mal. # Baso (test code = 417) 0.02 See_Comment [A utomated message] The system [employer] generated this result transmitted ref erence range: 0.01 - 0 .08 K/L. The refe rence range was not u sed to interpret this result as normal/abnor mal. Immature 0 % 0-1 Granulocytes-Relative (test code = 2801) Lab Interpretation (test Abnormal code = 83956-0) [facility] with platelet count + automated [id number] 05:06:06 Test Item Value Reference Range Interpretation Comments WBC (test code = 6690-2) 8.4 See_Comment [A utomated message] The system [employer] generated this result transmitted ref erence range: 3.5 - 10 .5 K/L. The refe rence range was not u sed to interpret this result as normal/abnor mal. RBC (test code = 789-8) 4.29 See_Comment [Au tomated message] The system [employer] generated this result transmitted ref erence range: 3.93 - 5 .22 M/L. The refe rence range was not u sed to interpret this result as normal/abnor mal. MCHC (test code = 786-4) 31.6 See_Comment L [A utomated message] The system [employer] generated this result transmitted ref erence range: [...] See_Comment [Aut omated message] 777-3) The system [employer] generated this result transmitted ref erence range: 150 - 45 0 K/CU MM. The referen ce range was not u sed to interpret this result as normal/abnor mal. MPV (test code = 10.1 fL 9.4-12.3 21990-1) nRBC (test code = 413) 0 See_Comment [Aut omated message] The system [employer] generated this result transmitted ref erence range: [...] See_Comment [Aut omated message] 670) The system [employer] generated this result transmitted ref erence range: 1.56 - 6 .13 K/L. The refe rence range was not u sed to interpret this result as normal/abnor mal. # Lymphs (test code = 1.77 See_Comment [Auto mated message] 414) The system [employer] generated this result transmitted ref erence range: 1.18 - 3 .74 K/L. The refe rence range was not u sed to interpret this result as normal/abnor mal. # Monos (test code = 0.52 See_Comment H [Autom ated message] 415) The system [employer] generated this result transmitted ref erence range: 0.24 - 0 .36 K/L. The refe rence range was not u sed to interpret this result as normal/abnor mal. # Eos (test code = 416) 0.06 See_Comment [Au tomated message] The system [employer] generated this result transmitted ref erence range: 0.04 - 0 .36 K/L. The refe rence range was not u sed to interpret this result as normal/abnor mal. # Baso (test code = 417) 0.02 See_Comment [A utomated message] The system [employer] generated this result transmitted ref erence range: 0.01 - 0 .08 K/L. The refe rence range was not u sed to interpret this result as normal/abnor mal. Immature 0 % 0-1 Granulocytes-Relative (test code = 2801) Lab Interpretation (test Abnormal code = 91124-0) [facility] W/PLT COUNT & AUTO [id number] 05:06:06 Test Item Value Reference Range Interpretation [...] PERCENT (BEAKER) (test code = 2801) POC-Glucose [id number] 21:43:11 Test Item Value Reference Range Interpretation Comments POC-Glucose Meter (test 109 mg/dL 70-110 : TE STED AT [facility] code = 1538) [address] [place] [address], [facility] 30: Music Therapy Specialist/Techni grisel ID = [id number] for BEHZAD GODFREY MCKEON Lab Interpretation (test Normal code = 47565-8) [facility]-Glucose [id number] 21:43:11 Test Item Value Reference Range Interpretation Comments POC-Glucose Meter (test 109 mg/dL 70-110 : TE STED AT [facility] code = 1538) [address] [place] [address], 770 30: Music Therapy Specialist/Techni grisel ID = [id number] for EPIFANIO, AZAMANT MCKEON Lab Interpretation (test Normal code = 08849-8) [facility] [id number] 21:43:11 Test Item Value Reference Range Interpretation Comments POC-Glucose Meter (test 109 mg/dL 70-110 : TE STED AT [facility] code = 1538) [address] [place] [address], 770 30: Music Therapy Specialist/Techni grisel ID = [id number] for EPIFANIO, AZAMANT MCKEON Lab Interpretation (test Normal code = 83047-9) [facility] [id number] 21:43:11 Test Item Value Reference Range Interpretation Comments POC-Glucose Meter (test 109 mg/dL 70-110 : TE STED AT [facility] code = 1538) [address] [place] [address], 770 30: Music Therapy Specialist/Techni grisel ID = [id number] for EPIFANIO, SAMANT MCKEON Lab Interpretation (test Normal code = 36057-5) [facility]-Glucose taakp2526-89-07 21:43:11 Test Item Value Reference Range Interpretation Comments POC-Glucose Meter (test 109 mg/dL 70-110 : TE STED AT [facility] code = 1538) [address] [place] [address], 770 30: Music Therapy Specialist/Techni grisel ID = [id number] for EPIFANIO, SAMANT MCKEON Lab Interpretation (test Normal code = 64285-6) [facility]-Glucose [id number] 21:43:11 Test Item Value Reference Range Interpretation Comments POC-Glucose Meter (test 109 mg/dL 70-110 : TE STED AT [facility] code = 1538) [address] [place] [address], 770 30: Music Therapy Specialist/Techni grisel ID = [id number] for EPIFANIO, SAMANT MCKEON Lab Interpretation (test Normal code = 62040-7) [facility]-Glucose [id number] 21:43:11 Test Item Value Reference Range Interpretation Comments POC-Glucose Meter (test 109 mg/dL 70-110 : TE STED AT [facility] code = 1538) [address] [place] [address], 770 30: Music Therapy Specialist/Techni grisel ID = [id number] for EPIFANIO, SAMANT MCKEON Lab Interpretation (test Normal code = 92267-9) [facility]-Glucose [id number] 21:43:11 Test Item Value Reference Range Interpretation Comments POC-Glucose Meter (test 109 mg/dL 70-110 : TE STED AT [facility] code = 1538) [address] [place] [address], 770 30: Music Therapy Specialist/Techni grisel ID = [id number] for EPIFANIO, SAMANT MCKEON Lab Interpretation (test Normal code = 10115-7) [facility]-Glucose [id number] 21:43:11 Test Item Value Reference Range Interpretation Comments POC-Glucose Meter (test 109 mg/dL 70-110 : TE STED AT [facility] code = 1538) [address] [place] [address], 770 30: Music Therapy Specialist/Techni grisel ID = [id number] for EPIFANIO, SAMANT MCKEON Lab Interpretation (test Normal code = 79816-6) [facility] [id number] 21:43:11 Test Item Value Reference Range Interpretation Comments POC-GLUCOSE METER 109 mg/dL 70-110 : TESTED A T [facility] 6720 (BEAKER) (test code = [facility], 1538) [address]: Music Therapy Specialist/Techni grisel ID = [id number] for LOULOU GRANT POCT-GLUCOSE [id number] 16:58:39 Test Item Value Reference Range Interpretation Comments POC-GLUCOSE METER 159 mg/dL 70-110 H : TESTED A T [facility] 6720 (BEAKER) (test code = [facility], 1538) 67399: Music Therapy Specialist/Techni grisel ID = [id number] for ANTONIO JUSTICE POCT-GLUCOSE [id number] 12:48:09 Test Item Value Reference Range Interpretation Comments POC-GLUCOSE METER 122 mg/dL 70-110 H : TESTED A T [facility] 6720 (BEAKER) (test code = [facility], 1538) 27083: Music Therapy Specialist/Techni grisel ID = [id number] for DENILSON MARIN [place], [id number] 12:10:00Reason for exam:->[facility] : 1970 Sex: FFluoroscopic unit utilized for a procedure performed in the OR. No interpretation was requested. Referto the operative report for findings. Refer to PACS for patient radiation dose information.POCT-GLUCOSE [id number] 07:22:37 Test Item Value Reference Range Interpretation Comments POC-GLUCOSE METER 77 mg/dL 70-110 : TESTED A T [facility] 6720 (BEAKER) (test code = KENYA Mcmullen [place], 1538) [address]: Music Therapy Specialist/Techni grisel ID = [id number] for SURESH ISBELL Djmorzrurs3021-93-05 04:49:25 Test Item Value Reference Range Interpretation Comments Phosphorus (test code 1.9 mg/dL 2.3-4.7 L Specim en = 2777-1) slightly hemolyzed SOPHIA (test code = SOPHIA) Music Therapy Specialist ID - [facility] Lab Interpretation Abnormal (test code = 15532-9) [facility] 04:49:25 Test Item Value Reference Range Interpretation Comments Phosphorus (test code 1.9 mg/dL 2.3-4.7 L Specim en = 2777-1) slightly hemolyzed SOPHIA (test code = SOPHIA) Music Therapy Specialist ID - [facility] Lab Interpretation Abnormal (test code = 32950-3) [facility]20[facility]-20 04:49:25 Test Item Value Reference Range Interpretation Comments Phosphorus (test code 1.9 mg/dL 2.3-4.7 L Specim en = 2777-1) slightly hemolyzed SOPHIA (test code = SOPHIA) Music Therapy Specialist ID - [facility] Lab Interpretation Abnormal (test code = 92740-2) [facility]20[facility]-20 04:49:25 Test Item Value Reference Range Interpretation Comments Phosphorus (test code 1.9 mg/dL 2.3-4.7 L Specim en = 2777-1) slightly hemolyzed SOPHIA (test code = SOPHIA) Music Therapy Specialist ID [facility] Lab Interpretation Abnormal (test code = 44060-5) [facility]-20 04:49:25 Test Item Value Reference Range Interpretation Comments Phosphorus (test code 1.9 mg/dL 2.3-4.7 L Specim en = 2777-1) slightly hemolyzed SOPHIA (test code = SOPHIA) Music Therapy Specialist ID - [facility] Lab Interpretation Abnormal (test code = 24107-0) [facility] 04:49:25 Test Item Value Reference Range Interpretation Comments Phosphorus (test code 1.9 mg/dL 2.3-4.7 L Specim en = 2777-1) slightly hemolyzed SOPHIA (test code = SOPHIA) Music Therapy Specialist ID - SARAH M Lab Interpretation Abnormal (test code = 13852-3) [facility] 04:49:25 Test Item Value Reference Range Interpretation Comments Phosphorus (test code 1.9 mg/dL 2.3-4.7 L Specim en = 2777-1) slightly hemolyzed SOPHIA (test code = SOPHIA) Music Therapy Specialist ID - SARAH M Lab Interpretation Abnormal (test code = 02408-8) [facility] 04:49:25 Test Item Value Reference Range Interpretation Comments Phosphorus (test code 1.9 mg/dL 2.3-4.7 L Specim en = 2777-1) slightly hemolyzed SOPHIA (test code = SOPHIA) Music Therapy Specialist ID - SARAH M Lab Interpretation Abnormal (test code = 75784-7) [facility] 04:49:25 Test Item Value Reference Range Interpretation Comments Phosphorus (test code 1.9 mg/dL 2.3-4.7 L Specim en = 2777-1) slightly hemolyzed SOPHIA (test code = SOPHIA) Music Therapy Specialist ID - SARAH M Lab Interpretation Abnormal (test code = 38965-8) [facility] CenterMAGNESIUM2022-01-20 04:49:25 Test Item Value Reference Range Interpretation Comments MAGNESIUM (BEAKER) 1.6 mg/dL 1.6-2.6 Specimen slightly (test code = 627) hemolyzed Music Therapy Specialist ID - SARAH DQXIVSMZTNI2734-26-08 04:49:25 Test Item Value Reference Range Interpretation Comments PHOSPHORUS (BEAKER) 1.9 mg/dL 2.3-4.7 L Specimen slightly (test code = 604) hemolyzed Music Therapy Specialist ID - SARAH MCOMPREHENSIVE METABOLIC [id number] 04:49:25 Test Item Value Reference Range Interpretation [...] S NOT APPLICABLE FOR DIALYSIS PATIEN TS. Music Therapy Specialist ID - SARAH [facility] W/PLT COUNT & AUTO [id number] 04:27:35 Test Item Value Reference Range Interpretation [...] PERCENT (BEAKER) (test code = 2801) CALCIUM, [id number] 04:24:30 Test Item Value Reference Range Interpretation Comments CALCIUM IONIZED (BEAKER) (test 1.00 mmol/L 1.12-1.27 L code = 698) PH, BLOOD (BEAKER) (test code = 7.39 1810) SARS-CoV2/RT-PCR (Asymptomatic ONLY)2021-07-10 02:57:41 Test Item Value Reference Range Interpretation Comments SARS-COV2/RT-PCR (test Negative Negative code = 09426-9) SOPHIA (test code = SOPHIA) Negative result [...] Healthcare Providers:[email or web address]://www.judith hendricks/fabien/RT SARS-CoV-2 HCP Fact Sheet 51-425942.pdf Fact Sheet for Healthcare Patients:[email or web address]://www.jeffery villanueva/fabien/RT SARS-CoV-2 Patient Fact Sheet EN 51-499268B2.pdf Lab Interpretation Normal (test code = 50958-6) [facility]21-07-10 02:57:41 Test Item Value Reference Range Interpretation Comments SARS-COV2/RT-PCR (test Negative Negative code = 33775-2) SOPHIA (test code = SOPHIA) Negative result [...] Healthcare Providers:https://www.judith hendricks/fabien/RT SARS-CoV-2 HCP Fact Sheet 51-037298.pdf Fact Sheet for Healthcare Patients:[email or web address]://www.jeffery villanueva/fabien/RT SARS-CoV-2 Patient Fact Sheet EN 51-493142Y0.pdf Lab Interpretation Normal (test code = 78979-7) [facility]2021-07-10 02:57:41 Test Item Value Reference Range Interpretation Comments SARS-COV2/RT-PCR (test Negative Negative code = 50831-3) SOPHIA (test code = SOPHIA) Negative result [...] Healthcare Providers:https://www.judith hendricks/fabien/RT SARS-CoV-2 HCP Fact Sheet 51-586104.pdf Fact Sheet for Healthcare Patients:[email or web address]://www.jeffery vicenterosado/fabien/RT SARS-CoV-2 Patient Fact Sheet EN 51-750091X3.pdf Lab Interpretation Normal (test code = 17645-6) [facility]2021-07-10 02:57:41 Test Item Value Reference Range Interpretation Comments SARS-COV2/RT-PCR (test Negative Negative code = 41399-5) SOPHIA (test code = SOPHIA) Negative result [...] Healthcare Providers:https://www.judith hendricks/fabien/RT SARS-CoV-2 HCP Fact Sheet 51-372712.pdf Fact Sheet for Healthcare Patients:[email or web address]://[email or web address].jeffery mejia.rosado/fabien/RT SARS-CoV-2 Patient Fact Sheet EN 51-042992N5.pdf Lab Interpretation Normal (test code = 67100-1) [facility]2021-07-10 02:57:41 Test Item Value Reference Range Interpretation Comments SARS-COV2/RT-PCR (test Negative Negative code = 62713-3) SOPHIA (test code = SOPHIA) Negative result [...] Healthcare Providers:https://www.judith hendricks/fabien/RT SARS-CoV-2 HCP Fact Sheet 51-949869.pdf Fact Sheet for Healthcare Patients:[email or web address]://[email or web address].jeffery mejia.rosado/fabien/RT SARS-CoV-2 Patient Fact Sheet EN 51-149712V6.pdf Lab Interpretation Normal (test code = 17511-0) [facility]2021-07-10 02:57:41 Test Item Value Reference Range Interpretation Comments SARS-COV2/RT-PCR (test Negative Negative code = 51247-8) SOPHIA (test code = SOPHIA) Negative result [...] Healthcare Providers:https://www.judith hendricks/fabien/RT SARS-CoV-2 HCP Fact Sheet 51-214850.pdf Fact Sheet for Healthcare Patients:https://www.jeffery villanueva/fabien/RT SARS-CoV-2 Patient Fact Sheet EN 51-157545N6.pdf Lab Interpretation Normal (test code = 02026-1) [facility])2021-07-10 02:57:41 Test Item Value Reference Range Interpretation Comments SARS-COV2/RT-PCR (test Negative Negative code = 91328-6) SOPHIA (test code = SOPHIA) Negative result [...] Healthcare Providers:https://www.judith hendricks/fabien/RT SARS-CoV-2 HCP Fact Sheet 51-055216.pdf Fact Sheet for Healthcare Patients:[email or web address] SARS-CoV-2 Patient Fact Sheet EN [id number].pdf Lab Interpretation Normal (test code = 88446-3) [facility]21-07-10 02:57:41 Test Item Value Reference Range Interpretation Comments SARS-COV2/RT-PCR (test Negative Negative code = 53540-2) SOPHIA (test code = SOPHIA) Negative result [...] Healthcare Providers:[email or web address]://[email or web address] [email or web address] SARS-CoV-2 HCP Fact Sheet [id number].pdf Fact Sheet for Healthcare Patients:[email or web address]://[email or web address] [email or web address]/RT SARS-CoV-2 Patient Fact Sheet EN [id number].pdf Lab Interpretation Normal (test code = 81282-3) [facility]2021-07-10 02:57:41 Test Item Value Reference Range Interpretation Comments SARS-COV2/RT-PCR (test Negative Negative code = 82649-5) SOPHIA (test code = SOPHIA) Negative result [...] Healthcare Providers:[email or web address]://[email or web address] [email or web address]/RT SARS-CoV-2 HCP Fact Sheet [id number].pdf Fact Sheet for Healthcare Patients:[email or web address]://[email or web address] [email or web address]/RT SARS-CoV-2 Patient Fact Sheet EN [id number].pdf Lab Interpretation Normal (test code = 06938-3) [facility])2021-07-10 02:57:41 Test Item Value Reference Range Interpretation Comments SARS-COV2/RT-PCR (test code = Negative Negative 9506569) Negative result for this test determines that [...] 564(g) of the Act.Testing was performed using NextMedium SARS-CoV-2 assay.Fact Sheet for Healthcare Providers:[email or web address]://www.[employer].rosado/fabien/RT SARS-CoV-2 HCP Fact Sheet 51- [id number].pdfFact Sheet for Healthcare Patients:[email or web address]://www.[employer].rosado/fabien/RT SARS-CoV-2 Patient Fact Sheet EN [id number].pdfPOCT-GLUCOSE [id number] 20:31:57 Test Item Value Reference Range Interpretation Comments POC-GLUCOSE METER 104 mg/dL 70-110 : Notified RN/MD: ([employer]) (test code = TESTED AT [facility] 6720 1538) [facility], [address]: Music Therapy Specialist/Techni grisel ID = [id number] for SAEID SPANGLER POCT-GLUCOSE [id number] 16:29:31 Test Item Value Reference Range Interpretation Comments POC-GLUCOSE METER 96 mg/dL 70-110 : TESTED A T [facility] 67[address] ([place]) (test code = [facility] Feng [facility], 1538) [address]: Music Therapy Specialist/Techni grisel ID = [id number] for SURESH ISBELL Hepatic function [id number] 13:26:49 Test Item Value Reference Range Interpretation Comments Protein, Total (test 6.6 See_Comment [Autom ated code = 2885-2) message] The system which generated this result transmit manoj reference range : 6.0 - 8.3 gm/dL . The reference range was not u sed to interpret th is result as normal/abnormal . Albumin (test code = 3.5 g/dL 3.5-5.0 87059-0) Total Bilirubin (test 2.0 mg/dL 0.2-1.2 H code = 1974-) Bilirubin, Direct 1.5 mg/dL 0.1-0.5 H (test code = 1967-) Alkaline Phosphatase 205 U/L 40-150 H (test code = 6768-6) AST (test code = 45 U/L 5-34 H 192-8) ALT (test code = 35 U/L 6-55 1742-6) SOPHIA (test code = SOPHIA) Music Therapy Specialist ID - ANSLEY B Lab Interpretation Abnormal (test code = 74876-3) [facility] [id number] 13:26:49 Test Item Value Reference Range Interpretation Comments Protein, Total (test 6.6 See_Comment [Autom ated code = 2885-2) message] The system which generated this result transmit manoj reference range : 6.0 - 8.3 gm/dL . The reference range was not u sed to interpret th is result as normal/abnormal . Albumin (test code = 3.5 g/dL 3.5-5.0 05946-5) Total Bilirubin (test 2.0 mg/dL 0.2-1.2 H code = 1974-) Bilirubin, Direct 1.5 mg/dL 0.1-0.5 H (test code = 1967-) Alkaline Phosphatase 205 U/L 40-150 H (test code = 6768-6) AST (test code = 45 U/L 5-34 H 1920-8) ALT (test code = 35 U/L 6-55 1742-6) SOPHIA (test code = SOPHIA) Music Therapy Specialist ID - ANSLEY B Lab Interpretation Abnormal (test code = 07478-0) [facility] [id number] 13:26:49 Test Item Value Reference Range Interpretation Comments Protein, Total (test 6.6 See_Comment [Autom ated code = 2885-2) message] The system which generated this result transmit manoj reference range : 6.0 - 8.3 gm/dL . The reference range was not u sed to interpret th is result as normal/abnormal . Albumin (test code = 3.5 g/dL 3.5-5.0 13123-1) Total Bilirubin (test 2.0 mg/dL 0.2-1.2 H code = 1974-) Bilirubin, Direct 1.5 mg/dL 0.1-0.5 H (test code = 1967-7) Alkaline Phosphatase 205 U/L 40-150 H (test code = 6768-6) AST (test code = 45 U/L 5-34 H 1920-8) ALT (test code = 35 U/L 6-55 1742-6) SOPHIA (test code = SOPHIA) Music Therapy Specialist ID - ANSLEY B Lab Interpretation Abnormal (test code = 08544-9) [facility] [id number] 13:26:49 Test Item Value Reference Range Interpretation Comments Protein, Total (test 6.6 See_Comment [Autom ated code = 2885-2) message] The system which generated this result transmit manoj reference range : 6.0 - 8.3 gm/dL . The reference range was not u sed to interpret th is result as normal/abnormal . Albumin (test code = 3.5 g/dL 3.5-5.0 51644-5) Total Bilirubin (test 2.0 mg/dL 0.2-1.2 H code = 1974-) Bilirubin, Direct 1.5 mg/dL 0.1-0.5 H (test code = 1967-7) Alkaline Phosphatase 205 U/L 40-150 H (test code = 6768-6) AST (test code = 45 U/L 5-34 H 1920-8) ALT (test code = 35 U/L 6-55 1742-6) OSPHIA (test code = SOPHIA) Music Therapy Specialist ID - ANSLEY B Lab Interpretation Abnormal (test code = 82084-2) [facility] [id number] 13:26:49 Test Item Value Reference Range Interpretation Comments Protein, Total (test 6.6 See_Comment [Autom ated code = 2885-2) message] The system which generated this result transmit manoj reference range : 6.0 - 8.3 gm/dL . The reference range was not u sed to interpret th is result as normal/abnormal . Albumin (test code = 3.5 g/dL 3.5-5.0 61931-1) Total Bilirubin (test 2.0 mg/dL 0.2-1.2 H code = 1974-2) Bilirubin, Direct 1.5 mg/dL 0.1-0.5 H (test code = 1967-7) Alkaline Phosphatase 205 U/L 40-150 H (test code = 6768-6) AST (test code = 45 U/L 5-34 H 1920-8) ALT (test code = 35 U/L 6-55 1742-6) SOPHIA (test code = SOPHIA) Music Therapy Specialist ID - ANSLEY B Lab Interpretation Abnormal (test code = 80014-1) [facility] Center[facility] function [id number] 13:26:49 Test Item Value Reference Range Interpretation Comments Protein, Total (test 6.6 See_Comment [Autom ated code = 2885-2) message] The system which generated this result transmit manoj reference range : 6.0 - 8.3 gm/dL . The reference range was not u sed to interpret th is result as normal/abnormal . Albumin (test code = 3.5 g/dL 3.5-5.0 20479-0) Total Bilirubin (test 2.0 mg/dL 0.2-1.2 H code = 1974-2) Bilirubin, Direct 1.5 mg/dL 0.1-0.5 H (test code = 1967-) Alkaline Phosphatase 205 U/L 40-150 H (test code = 6768-6) AST (test code = 45 U/L 5-34 H 1920-8) ALT (test code = 35 U/L 6-55 1742-6) SOPHIA (test code = SOPHIA) Music Therapy Specialist ID - ANSLEY B Lab Interpretation Abnormal (test code = 13960-3) [facility] Center[facility] function [id number] 13:26:49 Test Item Value Reference Range Interpretation Comments Protein, Total (test 6.6 See_Comment [Autom ated code = 2885-2) message] The system which generated this result transmit manoj reference range : 6.0 - 8.3 gm/dL . The reference range was not u sed to interpret th is result as normal/abnormal . Albumin (test code = 3.5 g/dL 3.5-5.0 68009-6) Total Bilirubin (test 2.0 mg/dL 0.2-1.2 H code = 1974-2) Bilirubin, Direct 1.5 mg/dL 0.1-0.5 H (test code = 1967-7) Alkaline Phosphatase 205 U/L 40-150 H (test code = 6768-6) AST (test code = 45 U/L 5-34 H 1920-8) ALT (test code = 35 U/L 6-55 1742-6) SOPHIA (test code = SOPHIA) Music Therapy Specialist ID - ANSLEY B Lab Interpretation Abnormal (test code = 66728-7) [facility] Center[facility] function [id number] 13:26:49 Test Item Value Reference Range Interpretation Comments Protein, Total (test 6.6 See_Comment [Autom ated code = 2885-2) message] The system which generated this result transmit manoj reference range : 6.0 - 8.3 gm/dL . The reference range was not u sed to interpret th is result as normal/abnormal . Albumin (test code = 3.5 g/dL 3.5-5.0 55882-4) Total Bilirubin (test 2.0 mg/dL 0.2-1.2 H code = 1974-2) Bilirubin, Direct 1.5 mg/dL 0.1-0.5 H (test code = 1967-) Alkaline Phosphatase 205 U/L 40-150 H (test code = 6768-6) AST (test code = 45 U/L 5-34 H 1920-8) ALT (test code = 35 U/L 6-55 1742-6) SOPHIA (test code = SOPHIA) Music Therapy Specialist ID - ANSLEY B Lab Interpretation Abnormal (test code = 66185-0) [facility] Center[facility] function [id number] 13:26:49 Test Item Value Reference Range Interpretation Comments Protein, Total (test 6.6 See_Comment [Autom ated code = 2885-2) message] The system which generated this result transmit manoj reference range : 6.0 - 8.3 gm/dL . The reference range was not u sed to interpret th is result as normal/abnormal . Albumin (test code = 3.5 g/dL 3.5-5.0 05764-2) Total Bilirubin (test 2.0 mg/dL 0.2-1.2 H code = 1975-2) Bilirubin, Direct 1.5 mg/dL 0.1-0.5 H (test code = 1968-7) Alkaline Phosphatase 205 U/L 40-150 H (test code = 6768-6) AST (test code = 45 U/L 5-34 H 1920-8) ALT (test code = 35 U/L 6-55 1742-6) SOPHIA (test code = SOPHIA) Music Therapy Specialist ID - ANSLEY B Lab Interpretation Abnormal (test code = 41949-8) [facility] Center[facility]ATIC FUNCTION [id number] 13:26:49 Test Item Value Reference Range Interpretation [...] (test code = 35 U/L 6-55 347) Music Therapy Specialist ID - ANSLEY [id number] 13:26:48 Test Item Value Reference Range Interpretation Comments MAGNESIUM (BEAKER) (test code = 1.8 mg/dL 1.6-2.6 627) Music Therapy Specialist ID - ANSLEY [id number] 12:28:48 Test Item Value Reference Range Interpretation Comments PHOSPHORUS (BEAKER) (test code = 2.7 mg/dL 2.3-4.7 604) Music Therapy Specialist ID - SARAH MCOMPREHENSIVE METABOLIC [id number] 12:28:47 Test Item Value Reference Range Interpretation [...] S NOT APPLICABLE FOR DIALYSIS PATIEN TS. Music Therapy Specialist ID - SARAH MPOCT-GLUCOSE [id number] 11:20:01 Test Item Value Reference Range Interpretation Comments POC-GLUCOSE METER 117 mg/dL 70-110 H : TESTED A T [facility] 6720 ([employer]) (test code = [facility], 1538) [address]: Music Therapy Specialist/Techni grisel ID = [id number] for ANTONIO JUSTICE POCT-GLUCOSE [id number] 07:43:17 Test Item Value Reference Range Interpretation Comments POC-GLUCOSE METER 79 mg/dL 70-110 : TESTED A T [facility] 6720 ([employer]) (test code = [facility], 1538) [address]: Music Therapy Specialist/Techni grisel ID = [id number] for Neyda potts (contract), Carli hel CALCIUM, [id number] 06:50:26 Test Item Value Reference Range Interpretation Comments CALCIUM IONIZED (BEAKER) (test 0.98 mmol/L 1.12-1.27 L code = 698) PH, BLOOD (BEAKER) (test code = 7.43 1810) CBC W/PLT COUNT & AUTO [id number] 06:46:11 Test Item Value Reference Range Interpretation [...] PERCENT (BEAKER) (test code = 2801) POCT-GLUCOSE [id number] 21:36:20 Test Item Value Reference Range Interpretation Comments POC-GLUCOSE METER 116 mg/dL 70-110 H : [facility] (test code = [facility] [place], 1538) [address]: Music Therapy Specialist/Techni grisel ID = [id number] for CR ASIA DAVIES Basic Metabolic [id number] 19:39:40 Test Item Value Reference Range Interpretation [...] (test code = 8.0 mg/dL 8.4-10.2 L 19555-9) EGFR (test code = 17 mL/min/1.[place] [address]-2) NOT ACCURATE CREATININE CLEARANCE IN PREDICTING GLOMERULAR FILTRATION RATE . ESTIMATED GFR I S NOT APPLICABLE FOR DIALYSIS PATIENTS. SOPHIA (test code = SOPHIA) Music Therapy Specialist ID - BS Lab Interpretation Abnormal (test code = 07186-2) [facility] Center[facility]asi Metabolic [id number] 19:39:40 Test Item Value Reference Range Interpretation Comments Sodium (test code = 131 meq/L 136-145 L 2951-2) Potassium (test code = 3.3 meq/L 3.5-5.1 L 2823-3) Chloride (test code = 90 meq/L 98-107 L 2075-0) CO2 (test code = 26 meq/L 22-29 2027-9) BUN (test code = 67 mg/dL 7-21 H 3094-0) Creatinine (test code 2.95 mg/dL 0.57-1.25 H = 2160-0) Glucose (test code = 98 mg/dL 70-105 2345-7) Calcium (test code = 8.0 mg/dL 8.4-10.2 L 60387-4) EGFR (test code = 17 mL/min/1.[place] [address]-1) NOT ACCURATE CREATININE CLEARANCE IN PREDICTING GLOMERULAR FILTRATION RATE . ESTIMATED GFR I S NOT APPLICABLE FOR DIALYSIS PATIENTS. SOPHIA (test code = SOPHIA) Music Therapy Specialist ID - BS Lab Interpretation Abnormal (test code = 65913-7) [facility] Metabolic [id number] 19:39:40 Test Item Value Reference Range Interpretation [...] (test code = 8.0 mg/dL 8.4-10.2 L 96104-9) EGFR (test code = 17 mL/min/1.[place] [address]-5) NOT ACCURATE CREATININE CLEARANCE IN PREDICTING GLOMERULAR FILTRATION RATE . ESTIMATED GFR I S NOT APPLICABLE FOR DIALYSIS PATIENTS. SOPHIA (test code = SOPHIA) Music Therapy Specialist ID - BS Lab Interpretation Abnormal (test code = 81858-5) [facility] Metabolic [id number] 19:39:40 Test Item Value Reference Range Interpretation [...] (test code = 8.0 mg/dL 8.4-10.2 L 94200-5) EGFR (test code = 17 mL/min/1.[place] [address]-0) NOT ACCURATE CREATININE CLEARANCE IN PREDICTING GLOMERULAR FILTRATION RATE . ESTIMATED GFR I S NOT APPLICABLE FOR DIALYSIS PATIENTS. SOPHIA (test code = SOPHIA) Music Therapy Specialist ID - BS Lab Interpretation Abnormal (test code = 35132-0) [facility] Metabolic [id number] 19:39:40 Test Item Value Reference Range Interpretation [...] (test code = 8.0 mg/dL 8.4-10.2 L 89228-9) EGFR (test code = 17 mL/min/1.[place] [address]-5) NOT ACCURATE CREATININE CLEARANCE IN PREDICTING GLOMERULAR FILTRATION RATE . ESTIMATED GFR I S NOT APPLICABLE FOR DIALYSIS PATIENTS. SOPHIA (test code = SOPHIA) Music Therapy Specialist ID - BS Lab Interpretation Abnormal (test code = 79159-2) [facility] Metabolic [id number] 19:39:40 Test Item Value Reference Range Interpretation Comments Sodium (test code = 131 meq/L 136-145 L 2951-2) Potassium (test code = 3.3 meq/L 3.5-5.1 L 2823-3) Chloride (test code = 90 meq/L 98-107 L 2075-0) CO2 (test code = 26 meq/L 22-2027-) BUN (test code = 67 mg/dL 7-21 H 3094-0) Creatinine (test code 2.95 mg/dL 0.57-1.25 H = 2160-0) Glucose (test code = 98 mg/dL 70-105 2345-7) Calcium (test code = 8.0 mg/dL 8.4-10.2 L 57461-5) EGFR (test code = 17 mL/min/1.[place] [address]-7) NOT ACCURATE CREATININE CLEARANCE IN PREDICTING GLOMERULAR FILTRATION RATE . ESTIMATED GFR I S NOT APPLICABLE FOR DIALYSIS PATIENTS. SOPHIA (test code = SOPHIA) Music Therapy Specialist ID - BS Lab Interpretation Abnormal (test code = 75612-7) [facility] Metabolic [id number] 19:39:40 Test Item Value Reference Range Interpretation Comments Sodium (test code = 131 meq/L 136-145 L 2951-2) Potassium (test code = 3.3 meq/L 3.5-5.1 L 2823-3) Chloride (test code = 90 meq/L 98-107 L 2075-0) CO2 (test code = 26 meq/L -2028-02) BUN (test code = 67 mg/dL 7-21 H 3094-0) Creatinine (test code 2.95 mg/dL 0.57-1.25 H = 2160-0) Glucose (test code = 98 mg/dL 70-105 2345-7) Calcium (test code = 8.0 mg/dL 8.4-10.2 L 17807-0) EGFR (test code = 17 mL/min/1.[place] [address]-3) NOT ACCURATE CREATININE CLEARANCE IN PREDICTING GLOMERULAR FILTRATION RATE . ESTIMATED GFR I S NOT APPLICABLE FOR DIALYSIS PATIENTS. SOPHIA (test code = SOPHIA) Music Therapy Specialist ID - BS Lab Interpretation Abnormal (test code = 29806-7) [facility] Metabolic [id number] 19:39:40 Test Item Value Reference Range Interpretation Comments Sodium (test code = 131 meq/L 136-145 L 2951-2) Potassium (test code = 3.3 meq/L 3.5-5.1 L 2823-3) Chloride (test code = 90 meq/L 98-107 L 2075-0) CO2 (test code = 26 meq/L 22-2028-02) BUN (test code = 67 mg/dL 7-21 H 3094-0) Creatinine (test code 2.95 mg/dL 0.57-1.25 H = 2160-0) Glucose (test code = 98 mg/dL 70-105 2345-7) Calcium (test code = 8.0 mg/dL 8.4-10.2 L 19971-3) EGFR (test code = 17 mL/min/1.[place] [address]-8) NOT ACCURATE CREATININE CLEARANCE IN PREDICTING GLOMERULAR FILTRATION RATE . ESTIMATED GFR I S NOT APPLICABLE FOR DIALYSIS PATIENTS. SOPHIA (test code = SOPHIA) Music Therapy Specialist ID - BS Lab Interpretation Abnormal (test code = 87957-7) [facility] Metabolic [id number] 19:39:40 Test Item Value Reference Range Interpretation Comments Sodium (test code = 131 meq/L 136-145 L 2951-2) Potassium (test code = 3.3 meq/L 3.5-5.1 L 2823-3) Chloride (test code = 90 meq/L 98-107 L 2075-0) CO2 (test code = 26 meq/L -29 9) BUN (test code = 67 mg/dL 7-21 H 3094-0) Creatinine (test code 2.95 mg/dL 0.57-1.25 H = 2160-0) Glucose (test code = 98 mg/dL 70-105 2345-7) Calcium (test code = 8.0 mg/dL 8.4-10.2 L 38088-3) EGFR (test code = 17 mL/min/1.[place] [address]-0) NOT ACCURATE CREATININE CLEARANCE IN PREDICTING GLOMERULAR FILTRATION RATE . ESTIMATED GFR I S NOT APPLICABLE FOR DIALYSIS PATIENTS. SOPHIA (test code = SOPHIA) Music Therapy Specialist ID - BS Lab Interpretation Abnormal (test code = 57117-1) [facility]OLIC [id number] 19:39:40 Test Item Value Reference Range Interpretation [...] S NOT APPLICABLE FOR DIALYSIS PATIEN TS. Music Therapy Specialist ID - BSPOCT-GLUCOSE [id number] 17:21:38 Test Item Value Reference Range Interpretation Comments POC-GLUCOSE METER 97 mg/dL 70-110 : TESTED A T [facility] 6720 (BEAKER) (test code = [facility], 1538) [address]: Music Therapy Specialist/Techni grisel ID = [id number] for TAYL OR-JUAN, SHIKARA POCT-GLUCOSE [id number] 12:06:11 Test Item Value Reference Range Interpretation Comments POC-GLUCOSE METER 92 mg/dL 70-110 : TESTED A T [facility] 6720 (BEAKER) (test code = [facility] [employer] [facility], 1538) [address]: Music Therapy Specialist/Techni grisel ID = [id number] for TAYL OR-JUAN, SHIKARA POCT-GLUCOSE [id number] 07:53:32 Test Item Value Reference Range Interpretation Comments POC-GLUCOSE METER 80 mg/dL 70-110 : TESTED A T [facility] 6720 (BEAKER) (test code = [facility] [place], 1538) [address]: Music Therapy Specialist/Techni grisel ID = [id number] for TEREZA JUNE BASIC METABOLIC [id number] 04:45:01 Test Item Value Reference Range Interpretation [...] S NOT APPLICABLE FOR DIALYSIS PATIEN TS. Music Therapy Specialist ID - JM [id number] 04:32:35 Test Item Value Reference Range Interpretation Comments PHOSPHORUS (BEAKER) (test code = 8.7 mg/dL 2.3-4.7 H 604) Music Therapy Specialist ID - JM LHEPATIC FUNCTION [id number] 04:32:35 Test Item Value Reference Range Interpretation [...] (test code = 40 U/L 6-55 347) Music Therapy Specialist ID Darian ONEAL [id number] 04:32:34 Test Item Value Reference Range Interpretation Comments MAGNESIUM (ROBYN) (test code = 2.2 mg/dL 1.6-2.6 627) Music Therapy Specialist ID Darian ONEAL LB-type Natriuretic Factor (BNP)2021-07-08 04:16:09 Test Item Value Reference Range Interpretation Comments BNP (test code = 97386-9) 69 pg/mL 0-100 SOPHIA (test code = SOPHIA) Music Therapy Specialist ID - PIARMANDO L Lab Interpretation (test Normal code = 79144-8) [facility] (BNP)2021-07-08 04:16:09 Test Item Value Reference Range Interpretation Comments BNP (test code = 04175-9) 69 pg/mL 0-100 SOPHIA (test code = SOPHIA) Music Therapy Specialist ID - JM L Lab Interpretation (test Normal code = 17546-2) [facility] Natri[facility] (BNP)2021-07-08 04:16:09 Test Item Value Reference Range Interpretation Comments BNP (test code = 07611-8) 69 pg/mL 0-100 SOPHIA (test code = SOPHIA) Music Therapy Specialist ID - PIAYA L Lab Interpretation (test Normal code = 93546-9) [facility] Natriure[facility] (BNP)2021-07-08 04:16:09 Test Item Value Reference Range Interpretation Comments BNP (test code = 09809-9) 69 pg/mL 0-100 SOPHIA (test code = SOPHIA) Music Therapy Specialist ID - PIAYA L Lab Interpretation (test Normal code = 57719-3) [facility] Natri[facility] (BNP)2021-07-08 04:16:09 Test Item Value Reference Range Interpretation Comments BNP (test code = 27171-9) 69 pg/mL 0-100 SOPHIA (test code = SOPHIA) Music Therapy Specialist ID - PIAYA L Lab Interpretation (test Normal code = 10762-5) [facility] Nat[facility] (BNP)2021-07-08 04:16:09 Test Item Value Reference Range Interpretation Comments BNP (test code = 04872-2) 69 pg/mL 0-100 SOPHIA (test code = SOPHIA) Music Therapy Specialist ID - SAMEERAAYA L Lab Interpretation (test Normal code = 97626-1) [facility] Natri[facility] (BNP)2021-07-08 04:16:09 Test Item Value Reference Range Interpretation Comments BNP (test code = 72420-1) 69 pg/mL 0-100 SOPHIA (test code = SOPHIA) Music Therapy Specialist ID - PIAYA L Lab Interpretation (test Normal code = 87873-7) [facility] Nat[facility] (BNP)2021-07-08 04:16:09 Test Item Value Reference Range Interpretation Comments BNP (test code = 86281-9) 69 pg/mL 0-100 SOPHIA (test code = SOPHIA) Music Therapy Specialist ID - PIAYA L Lab Interpretation (test Normal code = 08610-1) [facility] Natriure[facility] Factor (BNP)2021-07-08 04:16:09 Test Item Value Reference Range Interpretation Comments BNP (test code = 37099-5) 69 pg/mL 0-100 SOPHIA (test code = SOPHIA) Music Therapy Specialist ID - PIAYA L Lab Interpretation (test Normal code = 64475-0) [facility] NATRIURETIC FACTOR (BNP)2021-07-08 04:16:09 Test Item Value Reference Range Interpretation Comments B-TYPE NATRIURETIC PEPTIDE (BEAKER) 69 pg/mL 0-100 (test code = 700) Music Therapy Specialist ID Darian ONEAL LCBC W/PLT COUNT & AUTO [id number] 04:07:18 Test Item Value Reference Range Interpretation [...] PERCENT (BEAKER) (test code = 2801) Eosinophil [id number] 22:06:29 Test Item Value Reference Range Interpretation Comments Eosinophil Smear (test code = No EOS seen No EOS seen 20773-2) Lab Interpretation (test code = Normal 57524-1) [facility] CenterEosinophil [id number] 22:06:29 Test Item Value Reference Range Interpretation Comments Eosinophil Smear (test code = No EOS seen No EOS seen 77696-8) Lab Interpretation (test code = Normal 32806-3) [facility] CenterEosinophil [id number] 22:06:29 Test Item Value Reference Range Interpretation Comments Eosinophil Smear (test code = No EOS seen No EOS seen 43103-3) Lab Interpretation (test code = Normal 80999-0) [facility] CenterE[facility]ophil [id number] 22:06:29 Test Item Value Reference Range Interpretation Comments Eosinophil Smear (test code = No EOS seen No EOS seen 67075-9) Lab Interpretation (test code = Normal 38876-4) [facility] CenterEosinophil [id number] 22:06:29 Test Item Value Reference Range Interpretation Comments Eosinophil Smear (test code = No EOS seen No EOS seen 08427-2) Lab Interpretation (test code = Normal 37410-6) [facility] CenterEosinophil [id number] 22:06:29 Test Item Value Reference Range Interpretation Comments Eosinophil Smear (test code = No EOS seen No EOS seen 16788-1) Lab Interpretation (test code = Normal 97159-4) [facility] CenterEosinophil [id number] 22:06:29 Test Item Value Reference Range Interpretation Comments Eosinophil Smear (test code = No EOS seen No EOS seen 99003-4) Lab Interpretation (test code = Normal 24966-4) [facility] CenterEosinophil [id number] 22:06:29 Test Item Value Reference Range Interpretation Comments Eosinophil Smear (test code = No EOS seen No EOS seen 69349-3) Lab Interpretation (test code = Normal 71420-1) [facility] Center[facility] [id number] 22:06:29 Test Item Value Reference Range Interpretation Comments Eosinophil Smear (test code = No EOS seen No EOS seen 48373-3) Lab Interpretation (test code = Normal 90997-4) [facility] CenterEOSINOPHIL SMEAR, [id number] 22:06:29 Test Item Value Reference Range Interpretation Comments EOSINOPHIL SMEAR, URINE (BEAKER) No EOS seen No EOS seen (test code = 1851) BASIC METABOLIC [id number] 21:49:52 Test Item Value Reference Range Interpretation [...] S NOT APPLICABLE FOR DIALYSIS PATIEN TS. Music Therapy Specialist ID - DBU/S, RENAL, [id number] 21:46:00Reason for exam:->[facility] 1970 Sex: FFINAL [...] seen with medical renal disease. Signed: Mala Ramos MDReport Verified Date/Time: 07/07/2021 21:46:13 Sodium, random [id number] 21:42:01 Test Item Value Reference Range Interpretation Comments Sodium Urine (test <20 meq/L code = 2955-3) SOPHIA (test code = Reference Range: No SOPHIA) NormalsOperator ID - [facility] [id number] 21:42:01 Test Item Value Reference Range Interpretation Comments Sodium Urine (test <20 meq/L code = 2955-3) SOPHIA (test code = Reference Range: No SOPHIA) NormalsOperator ID - DB [facility] [id number] 21:42:01 Test Item Value Reference Range Interpretation Comments Sodium Urine (test <20 meq/L code = 2955-3) SOPHIA (test code = Reference Range: No SOPHIA) NormalsOperator ID - DB [facility] [id number] 21:42:01 Test Item Value Reference Range Interpretation Comments Sodium Urine (test <20 meq/L code = 2955-3) SOPHIA (test code = Reference Range: No SOPHIA) NormalsOperator ID - DB [facility] [id number] 21:42:01 Test Item Value Reference Range Interpretation Comments Sodium Urine (test <20 meq/L code = 2955-3) SOPHIA (test code = Reference Range: No SOPHIA) NormalsOperator ID - DB [facility] [id number] 21:42:01 Test Item Value Reference Range Interpretation Comments Sodium Urine (test <20 meq/L code = 2955-3) SOPHIA (test code = Reference Range: No SOPHIA) NormalsOperator ID - DB [facility] [id number] 21:42:01 Test Item Value Reference Range Interpretation Comments Sodium Urine (test <20 meq/L code = 2955-3) SOPHIA (test code = Reference Range: No SOPHIA) NormalsOperator ID - DB [facility] [id number] 21:42:01 Test Item Value Reference Range Interpretation Comments Sodium Urine (test <20 meq/L code = 2955-3) SOPHIA (test code = Reference Range: No SOPHIA) NormalsOperator ID - DB [facility] [id number] 21:42:01 Test Item Value Reference Range Interpretation Comments Sodium Urine (test <20 meq/L code = 2955-3) SOPHIA (test code = Reference Range: No SOPHIA) NormalsOperator ID - DB [facility]ODI[facility], RANDOM [id number] 21:42:01 Test Item Value Reference Range Interpretation Comments SODIUM URINE (BEAKER) (test code = < meq/L 243) Reference Range: No NormalsOperator ID - DBCreatinine, random [id number] 21:40:20 Test Item Value Reference Range Interpretation Comments Creatinine, Ur 115.4 mg/dL (test code = 2161-8) SOPHIA (test code = Reference Range: No SOPHIA) NormalsOperator ID - DB [facility] CenterProtein, random [id number] 21:40:20 Test Item Value Reference Range Interpretation Comments Protein, Urine (test code = 64 mg/dL 0-14 H 2888-6) SOPHIA (test code = SOPHIA) Music Therapy Specialist ID - DB Lab Interpretation (test Abnormal code = 65185-2) [facility] CenterCreatinine, random [id number] 21:40:20 Test Item Value Reference Range Interpretation Comments Creatinine, Ur 115.4 mg/dL (test code = 2161-8) SOPHIA (test code = Reference Range: No SOPHIA) NormalsOperator ID - DB [facility] CenterProtein, random [id number] 21:40:20 Test Item Value Reference Range Interpretation Comments Protein, Urine (test code = 64 mg/dL 0-14 H 2888-6) SOPHIA (test code = SOPHIA) Music Therapy Specialist ID - DB Lab Interpretation (test Abnormal code = 77040-3) [facility] CenterCreatinine, random [id number] 21:40:20 Test Item Value Reference Range Interpretation Comments Creatinine, Ur 115.4 mg/dL (test code = 2161-8) SOPHIA (test code = Reference Range: No SOPHIA) NormalsOperator ID - DB [facility] CenterProtein, random [id number] 21:40:20 Test Item Value Reference Range Interpretation Comments Protein, Urine (test code = 64 mg/dL 0-14 H 2888-6) SOPHIA (test code = SOPHIA) Music Therapy Specialist ID - DB Lab Interpretation (test Abnormal code = 75838-2) [facility] CenterCreatinine, random [id number] 21:40:20 Test Item Value Reference Range Interpretation Comments Creatinine, Ur 115.4 mg/dL (test code = 2161-8) SOPHIA (test code = Reference Range: No SOPHIA) NormalsOperator ID - DB [facility] CenterProtein, random [id number] 21:40:20 Test Item Value Reference Range Interpretation Comments Protein, Urine (test code = 64 mg/dL 0-14 H 2888-6) SOPHIA (test code = SOPHIA) Music Therapy Specialist ID - DB Lab Interpretation (test Abnormal code = 55854-8) [facility] CenterCreatinine, random [id number] 21:40:20 Test Item Value Reference Range Interpretation Comments Creatinine, Ur 115.4 mg/dL (test code = 2161-8) SOPHIA (test code = Reference Range: No SOPHIA) NormalsOperator ID - DB [facility] CenterProtein, random [id number] 21:40:20 Test Item Value Reference Range Interpretation Comments Protein, Urine (test code = 64 mg/dL 0-14 H 2888-6) SOPHIA (test code = SOPHIA) Music Therapy Specialist ID - DB Lab Interpretation (test Abnormal code = 07469-4) [facility] CenterCreatinine, random [id number] 21:40:20 Test Item Value Reference Range Interpretation Comments Creatinine, Ur 115.4 mg/dL (test code = 2161-8) SOPHIA (test code = Reference Range: No SOPHIA) NormalsOperator ID - DB [facility] CenterProtein, random [id number] 21:40:20 Test Item Value Reference Range Interpretation Comments Protein, Urine (test code = 64 mg/dL 0-14 H 2888-6) SOPHIA (test code = SOPHIA) Music Therapy Specialist ID - DB Lab Interpretation (test Abnormal code = 10428-7) [facility] CenterCreatinine, random mroet4054-05-05 21:40:20 Test Item Value Reference Range Interpretation Comments Creatinine, Ur 115.4 mg/dL (test code = 2161-8) SOPHIA (test code = Reference Range: No SOPHIA) NormalsOperator ID - DB [facility] CenterProtein, random [id number] 21:40:20 Test Item Value Reference Range Interpretation Comments Protein, Urine (test code = 64 mg/dL 0-14 H 2888-6) SOPHIA (test code = SOPHIA) Music Therapy Specialist ID - DB Lab Interpretation (test Abnormal code = 23381-1) [facility] CenterCreatinine, random [id number] 21:40:20 Test Item Value Reference Range Interpretation Comments Creatinine, Ur 115.4 mg/dL (test code = 2161-8) SOPHIA (test code = Reference Range: No SOPHIA) NormalsOperator ID - DB [facility] CenterProtein, random [id number] 21:40:20 Test Item Value Reference Range Interpretation Comments Protein, Urine (test code = 64 mg/dL 0-14 H 2888-6) SOPHIA (test code = SOPHIA) Music Therapy Specialist ID - DB Lab Interpretation (test Abnormal code = 44041-9) [facility] CenterCreatinine, random [id number] 21:40:20 Test Item Value Reference Range Interpretation Comments Creatinine, Ur 115.4 mg/dL (test code = 2161-8) SOPHIA (test code = Reference Range: No SOPHIA) NormalsOperator ID - DB [facility] CenterProtein, random [id number] 21:40:20 Test Item Value Reference Range Interpretation Comments Protein, Urine (test code = 64 mg/dL 0-14 H 2888-6) SOPHIA (test code = SOPHIA) Music Therapy Specialist ID - DB Lab Interpretation (test Abnormal code = 42803-7) [facility] CenterCREATININE, RANDOM [id number] 21:40:20 Test Item Value Reference Range Interpretation Comments CREATININE URINE (BEAKER) (test 115.4 mg/dL code = 375) Reference Range: No NormalsOperator ID - DBPROTEIN, RANDOM [id number] 21:40:20 Test Item Value Reference Range Interpretation Comments PROTEIN, URINE (BEAKER) (test code = 64 mg/dL 0-14 H 1569) Music Therapy Specialist ID - DBUrinalysis w/Czfpdxelvbb1036-12-81 21:27:09 Test Item Value Reference Range Interpretation Comments Color, UA (test code Yellow = 5778-6) Clarity, UA (test Cloudy code = 5767-9) Specific [place], UA 1.018 1.001-1.035 (test code = 5811-5) pH, UA (test code = 5.5 5.0-8.0 5803-2) Protein, UA (test 50 mg/dL Negative A code = 65345-7) Glucose, UA (test Negative Negative code = 365) Ketones, UA (test Negative Negative code = 2514-8) Bilirubin, UA (test Positive Negative A code = 86636-6) Blood, UA (test code Small Negative A = 39955-1) Nitrite, UA (test Negative Negative code = 5802-4) Leukocytes, UA (test Large Negative A code = 5799-2) Urobilinogen, UA 0.2 mg/dL 0.2-1.0 (test code = 95437-9) RBC, UA (test code = 6 See_Comment [Autom ated 94307-3) message] The system which generated this result [...] . Bacteria, UA (test Many code = 77410-1) Mucus (test code = Occasional 8247-9) Squam Epithel, UA 8 See_Comment [Automate d (test code = 07768-4) messag e] The system which generated this result transmitted reference range : /HPF. The reference range was not used to interpret this result as normal/abnormal . Crystals, Urine (test None Seen code = 57213-7) Specimen Source (test code = 2795) SOPHIA (test code = SOPHIA) Music Therapy Specialist ID - [auto]Music Therapy Specialist ID - tech Lab Interpretation Abnormal (test code = 97402-4) [facility] CenterUrinalysis w/Ofjssxjopaz2895-42-82 21:27:09 Test Item Value Reference Range Interpretation Comments Color, UA (test code Yellow = 5778-6) Clarity, UA (test Cloudy code = 5767-9) Specific [place], UA 1.018 1.001-1.035 (test code = 5811-5) pH, UA (test code = 5.5 5.0-8.0 5803-2) Protein, UA (test 50 mg/dL Negative A code = 34821-8) Glucose, UA (test Negative Negative code = 365) Ketones, UA (test Negative Negative code = 2514-8) Bilirubin, UA (test Positive Negative A code = 02826-9) Blood, UA (test code Small Negative A = 15876-4) Nitrite, UA (test Negative Negative code = 5802-4) Leukocytes, UA (test Large Negative A code = 5799-2) Urobilinogen, UA 0.2 mg/dL 0.2-1.0 (test code = 82640-3) RBC, UA (test code = 6 See_Comment [Autom ated 42624-8) message] The system which generated this result [...] . Bacteria, UA (test Many code = 33484-0) Mucus (test code = Occasional 8247-9) Squam Epithel, UA 8 See_Comment [Automate d (test code = 41891-0) messag e] The system which generated this result transmitted reference range : /HPF. The reference range was not used to interpret this result as normal/abnormal . Crystals, Urine (test None Seen code = 04669-4) Specimen Source (test code = 2795) SOPHIA (test code = SOPHIA) Music Therapy Specialist ID - [auto]Music Therapy Specialist ID - tech Lab Interpretation Abnormal (test code = 53666-2) [facility] CenterUrinalysis w/Mbpqrmcgxuz9061-60-24 21:27:09 Test Item Value Reference Range Interpretation Comments Color, UA (test code Yellow = 5778-6) Clarity, UA (test Cloudy code = 5767-9) Specific [place], UA 1.018 1.001-1.035 (test code = 5811-5) pH, UA (test code = 5.5 5.0-8.0 5803-2) Protein, UA (test 50 mg/dL Negative A code = 91498-6) Glucose, UA (test Negative Negative code = 365) Ketones, UA (test Negative Negative code = 2514-8) Bilirubin, UA (test Positive Negative A code = 01293-7) Blood, UA (test code Small Negative A = 88935-8) Nitrite, UA (test Negative Negative code = 5802-4) Leukocytes, UA (test Large Negative A code = 5799-2) Urobilinogen, UA 0.2 mg/dL 0.2-1.0 (test code = 30113-6) RBC, UA (test code = 6 See_Comment [Autom ated 56569-9) message] The system which generated this result [...] . Bacteria, UA (test Many code = 87192-4) Mucus (test code = Occasional 8247-9) Squam Epithel, UA 8 See_Comment [Automate d (test code = 69446-3) messag e] The system which generated this result transmitted reference range : /HPF. The reference range was not used to interpret this result as normal/abnormal . Crystals, Urine (test None Seen code = 77695-8) Specimen Source (test code = 2795) SOPHIA (test code = SOPHIA) Music Therapy Specialist ID - [auto]Music Therapy Specialist ID - tech Lab Interpretation Abnormal (test code = 54182-8) [facility] Center[facility]inal[facility] w/Igpezlkatei7232-47-83 21:27:09 Test Item Value Reference Range Interpretation Comments Color, UA (test code Yellow = 5778-6) Clarity, UA (test Cloudy code = 5767-9) Specific [place], UA 1.018 1.001-1.035 (test code = 5811-5) pH, UA (test code = 5.5 5.0-8.0 5803-2) Protein, UA (test 50 mg/dL Negative A code = 05155-3) Glucose, UA (test Negative Negative code = 365) Ketones, UA (test Negative Negative code = 2514-8) Bilirubin, UA (test Positive Negative A code = 67853-5) Blood, UA (test code Small Negative A = 24314-6) Nitrite, UA (test Negative Negative code = 5802-4) Leukocytes, UA (test Large Negative A code = 5799-2) Urobilinogen, UA 0.2 mg/dL 0.2-1.0 (test code = 66965-9) RBC, UA (test code = 6 See_Comment [Autom ated 11915-4) message] The system which generated this result [...] . Bacteria, UA (test Many code = 71504-1) Mucus (test code = Occasional 8247-9) Squam Epithel, UA 8 See_Comment [Automate d (test code = 75811-0) messag e] The system which generated this result transmitted reference range : /HPF. The reference range was not used to interpret this result as normal/abnormal . Crystals, Urine (test None Seen code = 33713-4) Specimen Source (test code = 2795) SOPHIA (test code = SOPHIA) Music Therapy Specialist ID - [auto]Music Therapy Specialist ID - tech Lab Interpretation Abnormal (test code = 79404-2) [facility] w/Upxujsvpelw5480-42-87 21:27:09 Test Item Value Reference Range Interpretation Comments Color, UA (test code Yellow = 5778-6) Clarity, UA (test Cloudy code = 5767-9) Specific [place], UA 1.018 1.001-1.035 (test code = 5811-5) pH, UA (test code = 5.5 5.0-8.0 5803-2) Protein, UA (test 50 mg/dL Negative A code = 26703-8) Glucose, UA (test Negative Negative code = 365) Ketones, UA (test Negative Negative code = 2514-8) Bilirubin, UA (test Positive Negative A code = 07480-6) Blood, UA (test code Small Negative A = 66382-4) Nitrite, UA (test Negative Negative code = 5802-4) Leukocytes, UA (test Large Negative A code = 5799-2) Urobilinogen, UA 0.2 mg/dL 0.2-1.0 (test code = 02710-1) RBC, UA (test code = 6 See_Comment [Autom ated 64000-9) message] The system which generated this result [...] . Bacteria, UA (test Many code = 41641-6) Mucus (test code = Occasional 8247-9) Squam Epithel, UA 8 See_Comment [Automate d (test code = 59428-5) messag e] The system which generated this result transmitted reference range : /HPF. The reference range was not used to interpret this result as normal/abnormal . Crystals, Urine (test None Seen code = 11556-3) Specimen Source (test code = 2795) SOPHIA (test code = SOPHIA) Music Therapy Specialist ID - [auto]Music Therapy Specialist ID - tech Lab Interpretation Abnormal (test code = 73339-5) [facility] w/Jbyuhxphjwr0450-54-67 21:27:09 Test Item Value Reference Range Interpretation Comments Color, UA (test code Yellow = 5778-6) Clarity, UA (test Cloudy code = 5767-9) Specific [place], UA 1.018 1.001-1.035 (test code = 5811-5) pH, UA (test code = 5.5 5.0-8.0 5803-2) Protein, UA (test 50 mg/dL Negative A code = 35489-8) Glucose, UA (test Negative Negative code = 365) Ketones, UA (test Negative Negative code = 2514-8) Bilirubin, UA (test Positive Negative A code = 91358-9) Blood, UA (test code Small Negative A = 07867-4) Nitrite, UA (test Negative Negative code = 5802-4) Leukocytes, UA (test Large Negative A code = 5799-2) Urobilinogen, UA 0.2 mg/dL 0.2-1.0 (test code = 32753-9) RBC, UA (test code = 6 See_Comment [Autom ated 67143-3) message] The system which generated this result [...] . Bacteria, UA (test Many code = 34830-5) Mucus (test code = Occasional 8247-9) Squam Epithel, UA 8 See_Comment [Automate d (test code = 73033-6) messag e] The system which generated this result transmitted reference range : /HPF. The reference range was not used to interpret this result as normal/abnormal . Crystals, Urine (test None Seen code = 41270-1) Specimen Source (test code = 2795) SOPHIA (test code = SOPHIA) Music Therapy Specialist ID - [auto]Music Therapy Specialist ID - tech Lab Interpretation Abnormal (test code = 29861-2) [facility] w/Wzujpbehlwi4825-99-99 21:27:09 Test Item Value Reference Range Interpretation Comments Color, UA (test code Yellow = 5778-6) Clarity, UA (test Cloudy code = 5767-9) Specific [place], UA 1.018 1.001-1.035 (test code = 5811-5) pH, UA (test code = 5.5 5.0-8.0 5803-2) Protein, UA (test 50 mg/dL Negative A code = 42274-5) Glucose, UA (test Negative Negative code = 365) Ketones, UA (test Negative Negative code = 2514-8) Bilirubin, UA (test Positive Negative A code = 02839-4) Blood, UA (test code Small Negative A = 67339-8) Nitrite, UA (test Negative Negative code = 5802-4) Leukocytes, UA (test Large Negative A code = 5799-2) Urobilinogen, UA 0.2 mg/dL 0.2-1.0 (test code = 00681-8) RBC, UA (test code = 6 See_Comment [Autom ated 00102-0) message] The system which generated this result [...] . Bacteria, UA (test Many code = 08701-7) Mucus (test code = Occasional 8247-9) Squam Epithel, UA 8 See_Comment [Automate d (test code = 87946-5) messag e] The system which generated this result transmitted reference range : /HPF. The reference range was not used to interpret this result as normal/abnormal . Crystals, Urine (test None Seen code = 38421-5) Specimen Source (test code = 2795) SOPHIA (test code = SOPHIA) Music Therapy Specialist ID - [auto]Music Therapy Specialist ID - tech Lab Interpretation Abnormal (test code = 21388-5) [facility]/Edjcxivuwvm8719-45-06 21:27:09 Test Item Value Reference Range Interpretation Comments Color, UA (test code Yellow = 5778-6) Clarity, UA (test Cloudy code = 5767-9) Specific [place], UA 1.018 1.001-1.035 (test code = 5811-5) pH, UA (test code = 5.5 5.0-8.0 5803-2) Protein, UA (test 50 mg/dL Negative A code = 44970-9) Glucose, UA (test Negative Negative code = 365) Ketones, UA (test Negative Negative code = 2514-8) Bilirubin, UA (test Positive Negative A code = 11979-4) Blood, UA (test code Small Negative A = 86009-8) Nitrite, UA (test Negative Negative code = 5802-4) Leukocytes, UA (test Large Negative A code = 5799-2) Urobilinogen, UA 0.2 mg/dL 0.2-1.0 (test code = 09820-6) RBC, UA (test code = 6 See_Comment [Autom ated 65946-8) message] The system which generated this result [...] . Bacteria, UA (test Many code = 12562-8) Mucus (test code = Occasional 8247-9) Squam Epithel, UA 8 See_Comment [Automate d (test code = 35631-4) messag e] The system which generated this result transmitted reference range : /HPF. The reference range was not used to interpret this result as normal/abnormal . Crystals, Urine (test None Seen code = 63478-5) Specimen Source (test code = 2795) SOPHIA (test code = SOPHIA) Music Therapy Specialist ID - [auto]Music Therapy Specialist ID - tech Lab Interpretation Abnormal (test code = 83845-4) [facility] w/Bzvfelwyiot5067-49-71 21:27:09 Test Item Value Reference Range Interpretation Comments Color, UA (test code Yellow = 5778-6) Clarity, UA (test Cloudy code = 5767-9) Specific [place], UA 1.018 1.001-1.035 (test code = 5811-5) pH, UA (test code = 5.5 5.0-8.0 5803-2) Protein, UA (test 50 mg/dL Negative A code = 83931-5) Glucose, UA (test Negative Negative code = 365) Ketones, UA (test Negative Negative code = 2514-8) Bilirubin, UA (test Positive Negative A code = 99042-9) Blood, UA (test code Small Negative A = 03064-6) Nitrite, UA (test Negative Negative code = 5802-4) Leukocytes, UA (test Large Negative A code = 5799-2) Urobilinogen, UA 0.2 mg/dL 0.2-1.0 (test code = 92925-9) RBC, UA (test code = 6 See_Comment [Autom ated 63710-5) message] The system which generated this result [...] . Bacteria, UA (test Many code = 82086-1) Mucus (test code = Occasional 8247-9) Squam Epithel, UA 8 See_Comment [Automate d (test code = 86537-8) messag e] The system which generated this result transmitted reference range : /HPF. The reference range was not used to interpret this result as normal/abnormal . Crystals, Urine (test None Seen code = 16794-8) Specimen Source (test code = 2795) SOPHIA (test code = SOPHIA) Music Therapy Specialist ID - [auto]Music Therapy Specialist ID - tech Lab Interpretation Abnormal (test code = 48570-1) [facility]IS W/ GXVRENQGVEX2670-62-30 21:27:09 Test Item Value Reference Range Interpretation [...] = 1521) SOURCE(BEAKER) (test code = 2795) Music Therapy Specialist ID - [auto]Music Therapy Specialist ID - techPOCT-GLUCOSE FHEOM6726-50-33 21:26:57 Test Item Value Reference Range Interpretation Comments POC-GLUCOSE METER 116 mg/dL 70-110 H : TESTED A T [facility] 6720 (BEAKER) (test code = KENYA Mcmullen [facility], 1538) [address]: Music Therapy Specialist/Techni grisel ID = [id number] for CR ASIA DAVIES BASIC METABOLIC [id number] 14:46:24 Test Item Value Reference Range Interpretation [...] S NOT APPLICABLE FOR DIALYSIS PATIEN TS. Music Therapy Specialist ID - SAMEERAAYA LHEPATIC FUNCTION PSUAF8712-83-20 14:39:41 Test Item Value Reference Range Interpretation [...] (test code = 52 U/L 6-55 347) Music Therapy Specialist ID - PIAYA LCBC W/PLT COUNT & AUTO [id number] 14:11:43 Test Item Value Reference Range Interpretation [...] PERCENT (BEAKER) (test code = 2801) POCT-GLUCOSE [id number] 11:36:30 Test Item Value Reference Range Interpretation Comments POC-GLUCOSE METER 141 mg/dL 70-110 H : [facility] (test code = KENYA QUINONES [place], 1538) 33903: Music Therapy Specialist/Techni grisel ID = [id number] for NARCISA MACARIO SARS-COV2/RT-PCR ([facility])2021-06-26 17:53:52 Test Item Value Reference Range Interpretation Comments SARS-COV2/RT-PCR (test code = Negative Negative 8076396) Negative result for this test determines that [...] the Rosado SARS-CoV-2 assay.Fact Sheet for Healthcare Providers:[email or web address]://[email or web address]/fabien/RT SARS-CoV-2 HCP Fact Sheet 51- 621118.pdfFact Sheet for Healthcare Patients:[email or web address]://[email or web address].[email or web address]/fabien/RT SARS-CoV-2 Patient Fact Sheet EN 51-488886N6.pdfPOCT-GLUCOSE VSUOL1040-85-91 08:25:03 Test Item Value Reference Range Interpretation Comments POC-GLUCOSE METER 101 mg/dL 70-110 : TESTED A T [facility] 6720 (BEAKER) (test code = [facility], 1538) 284[address]: Music Therapy Specialist/Techni grisel ID = [id number] for EMMIE JOHNSON BASIC METABOLIC [id number] 06:11:31 Test Item Value Reference Range Interpretation [...] S NOT APPLICABLE FOR DIALYSIS PATIEN TS. Music Therapy Specialist ID - PERCY WSpecimen slightly uedflwaMWWAULLES6519-76-37 06:11:30 Test Item Value Reference Range Interpretation Comments MAGNESIUM (BEAKER) (test code = 1.9 mg/dL 1.6-2.6 627) Music Therapy Specialist ID - PERCY CSIUEUVMRTF7240-69-97 06:11:30 Test Item Value Reference Range Interpretation Comments PHOSPHORUS (BEAKER) (test code = 2.4 mg/dL 2.3-4.7 604) Music Therapy Specialist ID - PERCY WCALCIUM, NKNFQRY5231-13-34 05:41:30 Test Item Value Reference Range Interpretation Comments CALCIUM IONIZED (BEAKER) (test 1.07 mmol/L 1.12-1.27 L code = 698) PH, BLOOD (BEAKER) (test code = 7.40 1810) CBC W/PLT COUNT & AUTO [id number] 05:27:48 Test Item Value Reference Range Interpretation [...] PERCENT (BEAKER) (test code = 2801) POCT-GLUCOSE [id number] 21:29:40 Test Item Value Reference Range Interpretation Comments POC-GLUCOSE METER 93 mg/dL 70-110 : TESTED A T [facility] 6720 (BEAKER) (test code = [facility], 1538) 68503: Music Therapy Specialist/Techni grisel ID = [id number] for OBI UREÑA POCT-GLUCOSE [id number] 16:38:43 Test Item Value Reference Range Interpretation Comments POC-GLUCOSE METER 133 mg/dL 70-110 H : TESTED A T [facility] 6720 (BEAKER) (test code = [facility], 1538) 30504: Music Therapy Specialist/Techni grisel ID = [id number] for HU NTER, HIWITHA RAD, ABDOMEN/KUB, 1 VIEW [id number] 15:23:00Reason for exam:- >constipationReason for exam:->fecal impaction [facility] 1970 Sex: FFINAL REPORT RAD, ABDOMEN/KUB, 1 VIEW AP CLINICAL INDICATION: constipationfecal impaction COMPARISON: 06/22/2021 TECHNIQUE: Single, frontal radiograph of the abdomen. FINDINGS:Transhepatic biliary drainage catheters present. The bowel gas pattern is nonspecific, but nonobstructive. Large stool burden persists. Evaluation for free air is limited by portable supine technique. Within these limitations, no free air is identified. Signed: Reginald Seo Verified Date/Time: 06/25/2021 15:23:29 POCT-GLUCOSE METER 2021-06-25 12:17:33 Test Item Value Reference Range Interpretation Comments POC-GLUCOSE METER 138 mg/dL 70-110 H : TESTED A T [facility] 6720 (BEAKER) (test code = [facility], 1538) 45068: Music Therapy Specialist/Techni grisel ID = [id number] for MESAWILDA ARAUJO POCT-GLUCOSE [id number] 08:08:33 Test Item Value Reference Range Interpretation Comments POC-GLUCOSE METER 168 mg/dL 70-110 H : TESTED A T [facility] 6720 (BEAKER) (test code = [facility], 1538) 64170: Music Therapy Specialist/Techni grisel ID = [id number] for MESAMax ARAUJOVONNE CALCIUM, [id number] 07:29:58 Test Item Value Reference Range Interpretation Comments CALCIUM IONIZED (BEAKER) (test 1.05 mmol/L 1.12-1.27 L code = 698) PH, BLOOD (BEAKER) (test code = 7.42 1810) [id number] 07:03:18 Test Item Value Reference Range Interpretation Comments PHOSPHORUS (BEAKER) (test code = 2.3 mg/dL 2.3-4.7 604) Music Therapy Specialist ID Darian SMITH MCOMPREHENSIVE METABOLIC [id number] 07:03:18 Test Item Value Reference Range Interpretation [...] S NOT APPLICABLE FOR DIALYSIS PATIEN TS. Music Therapy Specialist ID - SARAH MSpecimen slightly asfzktlWSRFXFCBL5158-19-79 07:03:17 Test Item Value Reference Range Interpretation Comments MAGNESIUM (BEAKER) (test code = 2.3 mg/dL 1.6-2.6 627) Music Therapy Specialist ID Darian SARAH MCBC W/PLT COUNT & AUTO [id number] 06:39:40 Test Item Value Reference Range Interpretation [...] PERCENT (BEAKER) (test code = 2801) POCT-GLUCOSE [id number] 21:13:40 Test Item Value Reference Range Interpretation Comments POC-GLUCOSE METER 134 mg/dL 70-110 H : TESTED A T [facility] 6720 (BEAKER) (test code = [facility], 1538) 89789: Music Therapy Specialist/Techni grisel ID = [id number] for OBI YING BASIC METABOLIC [id number] 12:42:19 Test Item Value Reference Range Interpretation [...] S NOT APPLICABLE FOR DIALYSIS PATIEN TS. Music Therapy Specialist ID - SARAH MSpecimen slightly ictericCALCIUM, [id number] 12:26:54 Test Item Value Reference Range Interpretation Comments CALCIUM IONIZED (BEAKER) (test 1.05 mmol/L 1.12-1.27 L code = 698) PH, BLOOD (BEAKER) (test code = 7.42 1810) POCT-GLUCOSE [id number] 11:34:52 Test Item Value Reference Range Interpretation Comments POC-GLUCOSE METER 208 mg/dL 70-110 H : TESTED A T [facility] 6720 (BEAKER) (test code = [facility], 1538) 52199: Music Therapy Specialist/Techni grisel ID = [id number] for Fl ores (pca2), Berenice Uric [id number] 10:43:33 Test Item Value Reference Range Interpretation Comments Uric Acid (test code = 13.6 mg/dL 2.6-7.2 H Speci men 3084-1) slightly hemolyzed SOPHIA (test code = SOPHIA) Music Therapy Specialist ID - SARAH MSpecimen slightly icteric Lab Interpretation Abnormal (test code = 75920-2) [facility] [id number] 10:43:33 Test Item Value Reference Range Interpretation Comments Uric Acid (test code = 13.6 mg/dL 2.6-7.2 H Speci men 3084-1) slightly hemolyzed SOPHIA (test code = SOPHIA) Music Therapy Specialist ID - SARAH MSpecimen slightly icteric Lab Interpretation Abnormal (test code = 53261-2) [facility] [id number] 10:43:33 Test Item Value Reference Range Interpretation Comments Uric Acid (test code = 13.6 mg/dL 2.6-7.2 H Speci men 3084-1) slightly hemolyzed SOPHIA (test code = SOPHIA) Music Therapy Specialist ID - SARAH MSpecimen slightly icteric Lab Interpretation Abnormal (test code = 80583-0) [facility] [id number] 10:43:33 Test Item Value Reference Range Interpretation Comments Uric Acid (test code = 13.6 mg/dL 2.6-7.2 H Speci men 3084-1) slightly hemolyzed SOPHIA (test code = SOPHIA) Music Therapy Specialist ID - SARAH MSpecimen slightly icteric Lab Interpretation Abnormal (test code = 40083-5) [facility] [id number] 10:43:33 Test Item Value Reference Range Interpretation Comments Uric Acid (test code = 13.6 mg/dL 2.6-7.2 H Speci men 3084-1) slightly hemolyzed SOPHIA (test code = SOPHIA) Music Therapy Specialist ID - SARAH MSpecimen slightly icteric Lab Interpretation Abnormal (test code = 26190-5) [facility] [id number] 10:43:33 Test Item Value Reference Range Interpretation Comments Uric Acid (test code = 13.6 mg/dL 2.6-7.2 H Speci men 3084-1) slightly hemolyzed SOPHIA (test code = SOPHIA) Music Therapy Specialist ID - SARAH MSpecimen slightly icteric Lab Interpretation Abnormal (test code = 32068-1) [facility] [id number] 10:43:33 Test Item Value Reference Range Interpretation Comments Uric Acid (test code = 13.6 mg/dL 2.6-7.2 H Speci men 3084-1) slightly hemolyzed SOPHIA (test code = SOPHIA) Music Therapy Specialist ID - SARAH MSpecimen slightly icteric Lab Interpretation Abnormal (test code = 96274-6) [facility] Center[facility] [id number] 10:43:33 Test Item Value Reference Range Interpretation Comments URIC ACID (BEAKER) 13.6 mg/dL 2.6-7.2 H Specimen slightly (test code = 773) hemolyzed Music Therapy Specialist ID - SARAH MSpecimen slightly ictericPROTEIN, RANDOM [id number] 09:25:49 Test Item Value Reference Range Interpretation Comments PROTEIN, URINE (BEAKER) (test code = 44 mg/dL 0-14 H 1569) Music Therapy Specialist ID - SARAH MCREATININE, RANDOM [id number] 09:24:08 Test Item Value Reference Range Interpretation Comments CREATININE URINE (BEAKER) (test 88.9 mg/dL code = 375) Reference Range: No NormalsOperator ID - SARAH MSODIUM, RANDOM [id number] 09:24:08 Test Item Value Reference Range Interpretation [...] 1585) Rare SOURCE(BEAKER) (test code = 2795) Music Therapy Specialist ID - [auto]Music Therapy Specialist ID - [auto]Music Therapy Specialist ID - techCOMPREHENSIVE METABOLIC [id number] 06:05:44 Test Item Value Reference Range Interpretation [...] S NOT APPLICABLE FOR DIALYSIS PATIEN TS. Music Therapy Specialist ID - SARAH MSpecimen slightly ictericCreatine Kinase (CK)2021-06-24 05:53:00 Test Item Value Reference Range Interpretation Comments Total CK (test code = 23 U/L 29-200 L 2157-6) SOPHIA (test code = SOPHIA) Music Therapy Specialist ID - [facility] Lab Interpretation (test Abnormal code = 69628-5) [facility] Center[facility] Kin[facility] (CK)2021-06-24 05:53:00 Test Item Value Reference Range Interpretation Comments Total CK (test code = 23 U/L 29-200 L 2157-6) SOPHIA (test code = SOPHIA) Music Therapy Specialist ID - [facility] Lab Interpretation (test Abnormal code = 04521-5) [facility] Center[facility] (CK)2021-06-24 05:53:00 Test Item Value Reference Range Interpretation Comments Total CK (test code = 23 U/L 29-200 L 2157-6) SOPHIA (test code = SOPHIA) Music Therapy Specialist ID - [facility] Lab Interpretation (test Abnormal code = 12224-2) [facility] Center[facility] (CK)2021-06-24 05:53:00 Test Item Value Reference Range Interpretation Comments Total CK (test code = 23 U/L 29-200 L 2157-6) SOPHIA (test code = SOPHIA) Music Therapy Specialist ID - SARAH Lab Interpretation (test Abnormal code = 35250-8) [facility] Center[facility] (CK)2021-06-24 05:53:00 Test Item Value Reference Range Interpretation Comments Total CK (test code = 23 U/L 29-200 L 2157-6) SOPHIA (test code = SOPHIA) Music Therapy Specialist ID - SARAH M Lab Interpretation (test Abnormal code = 17932-5) [facility] Center[facility] (CK)2021-06-24 05:53:00 Test Item Value Reference Range Interpretation Comments Total CK (test code = 23 U/L 29-200 L 2157-6) SOPHIA (test code = SOPHIA) Music Therapy Specialist ID - SARAH M Lab Interpretation (test Abnormal code = 89199-2) [facility] Center[facility] (CK)2021-06-24 05:53:00 Test Item Value Reference Range Interpretation Comments Total CK (test code = 23 U/L 29-200 L 2157-6) SOPHIA (test code = SOPHIA) Music Therapy Specialist ID - SARAH M Lab Interpretation (test Abnormal code = 36246-4) [facility] CenterPHOSPHORUS2022-01-04 05:53:00 Test Item Value Reference Range Interpretation Comments PHOSPHORUS (BEAKER) 7.0 mg/dL 2.3-4.7 H Specimen slightly (test code = 604) hemolyzed Music Therapy Specialist ID - SRAAH MCREATINE KINASE (CK)2021-06-24 05:53:00 Test Item Value Reference Range Interpretation Comments CREATINE KINASE TOTAL (BEAKER) (test 23 U/L 29-200 L code = 380) Music Therapy Specialist ID - SARAH [id number] 05:52:59 Test Item Value Reference Range Interpretation Comments MAGNESIUM (BEAKER) 2.8 mg/dL 1.6-2.6 H Specimen slightly (test code = 627) hemolyzed Music Therapy Specialist ID - SARAH MB-TYPE NATRIURETIC FACTOR (BNP)2021-06-24 05:50:35 Test Item Value Reference Range Interpretation Comments B-TYPE NATRIURETIC PEPTIDE (BEAKER) 19 pg/mL 0-100 (test code = 700) Music Therapy Specialist ID - SARAH MCBC W/PLT COUNT & AUTO [id number] 05:45:34 Test Item Value Reference Range Interpretation [...] PERCENT (BEAKER) (test code = 2801) CALCIUM, [id number] 05:24:45 Test Item Value Reference Range Interpretation Comments CALCIUM IONIZED (BEAKER) (test 1.04 mmol/L 1.12-1.27 L code = 698) PH, BLOOD (BEAKER) (test code = 7.40 1810) POCT-GLUCOSE [id number] 21:35:49 Test Item Value Reference Range Interpretation Comments POC-GLUCOSE METER 225 mg/dL 70-110 H : TESTED A T [facility] 6720 (BEAKER) (test code = [facility] [place], 1538) 32580: Music Therapy Specialist/Techni grisel ID = [id number] for OBI YING BASIC METABOLIC [id number] 20:23:04 Test Item Value Reference Range Interpretation [...] S NOT APPLICABLE FOR DIALYSIS PATIEN TS. Music Therapy Specialist ID - ADMINSpecimen slightly ictericRAD, CHEST, 1 VIEW, NON DEPT 2021-06-23 19:17:00Reason for exam:->Evaluate for edemaShould this be performed at the bedside?->YesIs the patient ?->No [facility] 1970 Sex: FFINAL [...] MDReport Verified Date/Time: 06/23/2021 19:17:09 Reading Location: [facility] [place], [id number] 17:33:00Unlisted Reason for Exam - Click Yes and Enter Reason Below->NoIs this for enterography?->NoWill this procedure require oral contrast?->[facility] 1970 Sex: [...] without diverticulitis. Signed: Armando Peacock Verified Date/Time: 7:33:14 Reading Location: [address] Body Reading Room POCT-GLUCOSE [id number] 17:19:07 Test Item Value Reference Range Interpretation Comments POC-GLUCOSE METER 202 mg/dL 70-110 H : Notified RN/MD: (BANNER) (test code = TESTED AT [facility] 6720 1538) [facility], [address]: Music Therapy Specialist/Techni grisel ID = [id number] for EMMIE JOHNSON POCT-GLUCOSE [id number] 11:38:31 Test Item Value Reference Range Interpretation Comments POC-GLUCOSE METER 162 mg/dL 70-110 H : TESTED A T [facility] 6720 (BANNER) (test code = [facility], 1538) 788[address]: Music Therapy Specialist/Techni grisel ID = [id number] for MA RTIN, EMMIE [id number] 08:23:13 Test Item Value Reference Range Interpretation Comments PHOSPHORUS (BANNER) (test code = 9.1 mg/dL 2.3-4.7 604) Music Therapy Specialist ID - SARAH Velascotor ID - JM LPOCT-GLUCOSE [id number] 07:41:52 Test Item Value Reference Range Interpretation Comments POC-GLUCOSE METER 135 mg/dL 70-110 H : TESTED A T [facility] 6720 (BEAKER) (test code = [facility] [place] [place], 1538) [address]: Music Therapy Specialist/Techni grisel ID = [id number] for EMMIE JOHNSON BASIC METABOLIC [id number] 06:26:37 Test Item Value Reference Range Interpretation [...] S NOT APPLICABLE FOR DIALYSIS PATIEN TS. Music Therapy Specialist ID - SARAH MSpecimen slightly [id number] 06:08:01 Test Item Value Reference Range Interpretation Comments MAGNESIUM (BEAKER) (test code = 2.9 mg/dL 1.6-2.6 H 627) Music Therapy Specialist ID - SARAH MCALCIUM, [id number] 04:58:45 Test Item Value Reference Range Interpretation Comments CALCIUM IONIZED (BEAKER) (test 1.08 mmol/L 1.12-1.27 L code = 698) PH, BLOOD (BEAKER) (test code = 7.40 1810) CBC W/PLT COUNT & AUTO [id number] 04:56:59 Test Item Value Reference Range Interpretation [...] PERCENT (BEAKER) (test code = 2801) POCT-GLUCOSE [id number] 21:26:27 Test Item Value Reference Range Interpretation Comments POC-GLUCOSE METER 157 mg/dL 70-110 H : TESTED A T [facility] 6720 (ROBYN) (test code = [facility], 1538) [address]137: Music Therapy Specialist/Techni grisel ID = [id number] for Ghanshyam Russell POCT-GLUCOSE [id number] 17:30:42 Test Item Value Reference Range Interpretation Comments POC-GLUCOSE METER 165 mg/dL 70-110 H : Notified RN/MD: TESTED (ROBYN) (test code AT [facility] 6720 BERTNER = 1538) [facility], 770 30: Music Therapy Specialist/Techni grisel ID = [id number] for Sing h, Harprempreet RAD, ABDOMEN/KUB, 1 VIEW [id number] 13:47:00Reason for exam:->constipation [facility] 1970 Sex: FFINAL REPORT TECHNIQUE: One view of the abdomen. INDICATION: 51-year-old woman with constipation. COMPARISON: Abdomen radiographs 06/20/2021. IMPRESSION:Unchanged internal/external biliary drain and plastic biliary stent. Nonobstructive bowel gas pattern. No significant change in moderate amount stool in the colon. Otherwise, no significant change in the abdomen since 06/20/2021. Signed: Mala Ramos Verified Date/Time: 06/22/2021 13:47:18 Reading Location: [address] Body Reading Room POCT-GLUCOSE [id number] 06:59:39 Test Item Value Reference Range Interpretation Comments POC-GLUCOSE METER 114 mg/dL 70-110 H : TESTED A T [facility] 6720 (BEAKER) (test code = [facility], 1538) 47271: Music Therapy Specialist/Techni grisel ID = [id number] for JOHN BEGUM POCT-GLUCOSE [id number] 21:18:48 Test Item Value Reference Range Interpretation Comments POC-GLUCOSE METER 164 mg/dL 70-110 H : TESTED A T [facility] 6720 (BEAKER) (test code = [facility], 1538) 12635: Music Therapy Specialist/Techni grisel ID = [id number] for Ghanshyam Russell POCT-GLUCOSE [id number] 17:34:49 Test Item Value Reference Range Interpretation Comments POC-GLUCOSE METER 155 mg/dL 70-110 H : TESTED A T [facility] 6720 (BEAKER) (test code = [facility], 1538) 87752: Music Therapy Specialist/Techni grisel ID = [id number] for MARIE JAEEMMIE HEPATIC FUNCTION [id number] 13:37:53 Test Item Value Reference Range Interpretation [...] Specimen moderately (test code = 347) hemolyzed Music Therapy Specialist ID - SARAH MSpecimen slightly ictericBASIC METABOLIC [id number] 13:37:52 Test Item Value Reference Range Interpretation [...] S NOT APPLICABLE FOR DIALYSIS PATIEN TS. Music Therapy Specialist ID - SARAH MSpecimen slightly ictericCBC W/PLT COUNT & AUTO [id number] 13:21:42 Test Item Value Reference Range Interpretation [...] PERCENT (BEAKER) (test code = 2801) POCT-GLUCOSE [id number] 12:27:38 Test Item Value Reference Range Interpretation Comments POC-GLUCOSE METER 145 mg/dL 70-110 H : TESTED A T [facility] 6720 (BEAKER) (test code = [facility], 1538) 44352: Music Therapy Specialist/Techni grisel ID = [id number] for MA RTIN, CHIANNA POCT-GLUCOSE [id number] 07:47:30 Test Item Value Reference Range Interpretation Comments POC-GLUCOSE METER 103 mg/dL 70-110 : TESTED A T [facility] 6720 (BEAKER) (test code = [facility], 1538) 50125: Music Therapy Specialist/Techni grisel ID = [id number] for MA RTIN, CHIANNA POCT-GLUCOSE [id number] 21:11:18 Test Item Value Reference Range Interpretation Comments POC-GLUCOSE METER 137 mg/dL 70-110 H : TESTED A T [facility] 6720 (BEAKER) (test code = [facility], 1538) [address]: Music Therapy Specialist/Techni grisel ID = [id number] for SHYLA KRAUS POCT-GLUCOSE [id number] 17:18:01 Test Item Value Reference Range Interpretation Comments POC-GLUCOSE METER 102 mg/dL 70-110 : TESTED A T [facility] 6720 (BEAKER) (test code = [facility] Feng [facility], 1538) [address]: Music Therapy Specialist/Techni grisel ID = [id number] for EMMIE JOHNSON POCT-GLUCOSE [id number] 08:06:40 Test Item Value Reference Range Interpretation Comments POC-GLUCOSE METER 143 mg/dL 70-110 H : TESTED A T [facility] 6720 (BEAKER) (test code = [facility] Feng [facility], 1538) 24258: Music Therapy Specialist/Techni grisel ID = [id number] for Ambika bird (pca2)Berenice RAD, ABDOMEN/KUB, 1 VIEW [id number] 02:19:00Reason for exam:- >vomittingShould this be performed at the bedside?->Yes [facility] 1970 Sex: FFINAL [...] Terrazas MDReport Verified Date/Time: 06/20/2021 02:19:16 POCT-GLUCOSE [id number] 21:50:55 Test Item Value Reference Range Interpretation Comments POC-GLUCOSE METER 119 mg/dL 70-110 H : TESTED A T [facility] 6720 (BEAKER) (test code = [facility], 1538) 790[address]: Music Therapy Specialist/Techni grisel ID = [id number] for Sharri chiang (pca2)Delphine a POCT-GLUCOSE [id number] 16:42:04 Test Item Value Reference Range Interpretation Comments POC-GLUCOSE METER 127 mg/dL 70-110 H : TESTED A T [facility] 6720 (BEAKER) (test code = [facility], 1538) 21288: Music Therapy Specialist/Techni grisel ID = [id number] for Do minguez, Parth POCT-GLUCOSE [id number] 11:28:57 Test Item Value Reference Range Interpretation Comments POC-GLUCOSE METER 145 mg/dL 70-110 H : TESTED A T [facility] 6720 (BEAKER) (test code = [facility], 1538) 64764: Music Therapy Specialist/Techni grisel ID = [id number] for Do minguez, Parth SARS-COV2/RT-PCR ([facility])2021-06-19 11:06:55 Test Item Value Reference Range Interpretation Comments SARS-COV2/RT-PCR (test code = Negative Negative 0444286) Negative result for this test determines that [...] Healthcare Providers:https://www.molecular.rosado/fabien/RT SARS-CoV-2 HCP Fact Sheet 51- 080853.pdfFact Sheet for Healthcare Patients:https://www.molecular.rosado/fabien/RT SARS-CoV-2 Patient Fact Sheet EN 51-557726C9.pdfPOCT-GLUCOSE [id number] 08:11:15 Test Item Value Reference Range Interpretation Comments POC-GLUCOSE METER 134 mg/dL 70-110 H : TESTED A T [facility] 6720 (BEAKER) (test code = [facility] [place] [place], 1538) [address]: Music Therapy Specialist/Techni grisel ID = [id number] for Do Parth elizabeth HEPATIC FUNCTION [id number] 05:11:12 Test Item Value Reference Range Interpretation [...] (test code = 42 U/L 6-55 347) Music Therapy Specialist ID - JM Cespedes slightly ictericPOCT-GLUCOSE [id number] 21:42:26 Test Item Value Reference Range Interpretation Comments POC-GLUCOSE METER 115 mg/dL 70-110 H : TESTED A T [facility] 6720 (BEAKER) (test code = [facility], 1538) 92956: Music Therapy Specialist/Techni grisel ID = [id number] for LOULOU GRANT POCT-GLUCOSE [id number] 17:31:40 Test Item Value Reference Range Interpretation Comments POC-GLUCOSE METER 122 mg/dL 70-110 H : TESTED A T [facility] 6720 (BEAKER) (test code = [facility], 1538) 47272: Music Therapy Specialist/Techni grisel ID = [id number] for [place] LLIAMS, TYNEKA POCT-GLUCOSE [id number] 11:54:32 Test Item Value Reference Range Interpretation Comments POC-GLUCOSE METER 157 mg/dL 70-110 H : TESTED A T [facility] 6720 (BEAKER) (test code = [facility], 1538) 72301: Music Therapy Specialist/Techni grisel ID = [id number] for [place] LLIAMS, TYNEKA POCT-GLUCOSE [id number] 07:59:19 Test Item Value Reference Range Interpretation Comments POC-GLUCOSE METER 135 mg/dL 70-110 H : TESTED A T [facility] 6720 (BEAKER) (test code = [facility], 1538) 26257: Music Therapy Specialist/Techni grisel ID = [id number] for [place] LLIAMS, TYNEKA HEPATIC FUNCTION [id number] 05:55:43 Test Item Value Reference Range Interpretation [...] (test code = 37 U/L 6-55 347) Music Therapy Specialist ID - JM Paradaimerima slightly ictericPOCT-GLUCOSE [id number] 21:05:46 Test Item Value Reference Range Interpretation Comments POC-GLUCOSE METER 154 mg/dL 70-110 H : TESTED A T [facility] 6720 (BEAKER) (test code PETEVIOLETA [facility], = 1538) [address]: Music Therapy Specialist/Techni grisel ID = [id number] for Nilton blackburn (contract)Medardo POCT-GLUCOSE [id number] 17:49:03 Test Item Value Reference Range Interpretation Comments POC-GLUCOSE METER 161 mg/dL 70-110 H : TESTED A T [facility] 6720 (BEAKER) (test code = PETELORENZO Feng [facility], 1538) [address]327: Music Therapy Specialist/Techni grisel ID = [id number] for Adelaida Martinez HEPATIC FUNCTION [id number] 07:21:13 Test Item Value Reference Range Interpretation [...] (test code = 33 U/L 6-55 347) Music Therapy Specialist ID - JM Paradaimerima moderately ictericPOCT-GLUCOSE [id number] 20:52:43 Test Item Value Reference Range Interpretation Comments POC-GLUCOSE METER 136 mg/dL 70-110 H : Notified RN/MD: (BEAKER) (test code = TESTED AT [facility] 6720 1538) [place], [address]: Music Therapy Specialist/Techni grisel ID = [id number] for Toshia Saucedo POCT-GLUCOSE [id number] 17:42:10 Test Item Value Reference Range Interpretation Comments POC-GLUCOSE METER 160 mg/dL 70-110 H : TESTED A T [facility] 6720 (BEAKER) (test code = KENYA Mcmullen [facility], 1538) [address]: Music Therapy Specialist/Techni grisel ID = [id number] for MIHIR DIAZ BASIC METABOLIC [id number] 17:03:54 Test Item Value Reference Range Interpretation [...] S NOT APPLICABLE FOR DIALYSIS PATIEN TS. Music Therapy Specialist ID - FSESpecimen moderately ictericTissue [id number] 14:51:42 Test Item Value Reference Range Interpretation Comments Case Report (test code Surgical Pathology = 104) Report Case: [id number] Authorizing Provider: Jessica Espinoza Collected: 06/12/2021 05:40 PM MD Meme Ordering Location: [address] Received: 06/12/2021 09:22 PM Service Pathologist: Ofe Luciano MD Specimen: Liver DIAGNOSIS (test code = [id number] 3220) FuZzEwMzNcZnRuYmpcdWMx IHtccnRmMVxlcGljOTYwMV sosfPyFSHdyEOsW8Nlaxjn LLolID0yQW5cbSbeyJAfoX JbHLWqWkWdw2zcs804qMFz b7swLJBVbsttgVb8mBelN2 2wp5L7QmckN17ckQUiKXT8 ZMAbYNQagFCdSCKgVND6ER FnsSOgA3vyHPXiYC7tecrw FNhrXOnkAKOaiXG1JPXbeR UkJ2RuBZArRIywGADjahx9 JpEzKe9ejVDfbGpbVQbyLV JkXHBsYWluXGZzMjAgTElW IVIaLXUPN6YZISgwzRXeZX 5rSVGGMn9SURZDER6QPRBa hINwJZ8xC2BVWKPWQC4OWe KyzIRufMyvutEdHQgzj2Cw TQanCVBlHZ2qqPvoFCUgEY 5zVDGsU4govY8jkmt4OgMl ERWuYsA3LELtkhZ4Rfj4BX PnNVdzm2mtu2UyAMHuOYu0 yNzcYsUnJYJzk5roovUvXo WcYTNuVFSiYJCxlQVcO090 z7drh8gidjYplUW6OZDrVP G9JIrbefYhtyV2BUegbFKh MqR7DQuqnoSjUHjnfxFiuh YrJwx5YONyK753QTR3wQfv w5rbNYD4OIBxCTDzLoGvBd 7geRWfA571YRFhQLPUPRAj gOd1XGIvayNgraJmsXBPx0 57A299s9ayWPRojmLagUeR ksfow9bjM296SYHoaHEfdh MjLyOfXSOckWHjcQF0UWZb WU3dyrgxAHucZRzkVJPvor F3OSQxyUOnG5ZzTEHtWH8g fibyOCS3XHfzLIEeQJG8Ng QoMZPuk5Cxfkt7QsMvbe5j mn83YLB5g0FgoGxrPTN2JN V4YhHeUj4hsWDoUMHuZO8c KbIxdTZxIUIicg43oLxgMA kfYLE4DPZhnyCul7Zae3hn JjTwdtJhB3kzD2XvIUBmPJ ApLFThIdSxjjGmi6Ppn2Yg nXUguOx6b3yuJBIrJPKkkW mxi1swFTL8WFWvqNDbZ5jx yL2pKHWbNE4lytbno0izLE rzJVhrLTAadZX3rcX1AKIy bHUpY3VufE1xMWMsKYtqZP Tqcke5TuBuIp7elCHofSnm MFxzYmtwYWdlXHBnbmNvbn RccGduZGVjXHBsYWluXHBs YWluXGYwXGZzMjRccWxcbG FuZzEwMzNcaGljaFxmMVxk PwLbCAVuEOhaC4aiQkXmBy LjOmb4EXCdvUTtNWUuRsy2 WEZxaLIpGZXGvCvwrZ5jLL JquUltqO1rxOA2HBQiqnCl jEHQdZ3uCUTTbW7lKkK0ZQ BuMgc7GSX6BhPpbWKcdF9= COMMENT (test code = a0pprOSgAGVroTZ8YrHuDO 6175) Nlf8uan7SfqAUgsPQzOOxk pFEcxeDibv53jFB6hN91EN 6vDXNyAqL5VBJzehN4Euv1 LDWyYHEdmXYyM317y0gvy6 pwztJizNF9hZwvJTAnhuqq OsZ8KJndRSSjuvamMFx3UK rpVJWrbGY9FGAhtGHrC3Xx RJUnWB2xvtm5AVR4UPeiRZ CdSbI6MWMyuSBgCYNxgQby TBteq555OOG3IhUrCIXgnt GlvTvfpF8yVmWhYACVzQHg pDipsA0jf8xgKlWsVCP3eC HttdUrZaJ8ySKeSzowyLT5 IDOfy1oyUZMmx56rrGPekm EsXPUqa5rrHeLtVWKco38q u7YxqMMekXdsIH49YJrcHR 3llJsidxLzDHfiyzA5zWJ4 IGFyZSBzdHJvbmdseSBwb3 HaaFi2DPQca5JdO1h3BYOx HNIoQZ1riOUqm1VmZKZcof ugTL0cEE2tA3D0nFJbLDAs kzEMDxVmJWyxrOEur5dir4 IsG3sndCexJDqsa7RpkN7r NxXbCLPioDEcv58peDl4NP DiZIGPFBTvAEQ0yvLudZ2o aQcyqE4tYCCcny3jk2amDE 5pbiBhcmUgbmVnYXRpdmUu FCNKpAHdtLcflN0pdYLwGq XvyaGfd9s5WZNsXLLqg6Kf mvEsrm5fFSUquCKpkj7rYK Yce73kO37uxB7qIGYjtAEx EKYrgZKznY6hp1gbzPHbKS 5vZRXaZfV7PvDwWtCptPKz of40PCNiATYfIQWbfZ3piO 6wcnYxYRsyrgUiufEfWY60 IBWrj8lgwjltu1PfxyGawh 5nCCPvja68tVRwUCBiwdKg h5HnkKJmdZTnjXQmisJstW NsdWRlZCBjbGluaWNhbGx5 LlxwYXJccGFyIFRoZSBmaW 1llL3xbtJ1EOImEMYtfZW2 XAPnaG3aTWKzTUTatxVaPV dhZGljaGVybGEgdmlhIFRp I2AkVOYrqh4vB4Hoi07iLB IvMjcvMjAyMSBhdCAxNDUw LlxwYXJ9 CPT Code(s) (test code g5hjfUNjHQGgqNL4RiJoCF = 3357) Fus8ian8JhjCKasGZqBApi aZKnyrJfwc93dTD7gS36HI 6xFGVpSwV0ZXWgwnD4Uoy4 DDLaKWTpsZKbF060o4vjw2 xfejEuyKK0oRydOCBfuwnt PaO3FVttJYWfperfSSb9RD uiTEBzjOA8EOIvfJAlC6Hr ROLfXK2zjum5VTL5EWbzHP CxGrD5QQQbkIUnULKmlFnv WMcil157WUL4VdXuXZStyh TsmZdciL4yIxYbRRT3MXRy VJrlTOdhUJNxEUk0RdXlGV ggNVxwYXJ9 CLINICAL HISTORY (test x3etgPTbKZVvuRS1HrMxYS code = 3356) Kut8uvr4SdgAGkpSPyQLnm oRVcnzTczp61jJN5sN77PB 6bNEBrRwP4LXSjigQ4Meu6 HSUaYYMbgKBvM214t1jxa6 vnquRtrEH6oJwaQOCddsqg GgL3GJohKBWyxmvwFYj9DA zuDVNwrWS4DPRtqZKcF0Tu JPGyLB2host0MMC4PWdgSN NyEhV3CRSjtAPlBLSqjXce ZFkvp611OFX8VhJtDZDsxr AllHjunX2yFoJlKUAHogmx cmdlZCBsaXZlciBtYXNzXH Bhcn0= SPECIMEN SOURCE (test k4mxnFPbBVGahFR8ApMzGR code = 3377) Hzk5zhk4XazEQszOAcJIds zNBcysCxuj71cMV3fD67IA 0bCFSbBwS4JDQzriA3Gwl0 JWWySQBfjMZeJ208i6fcd8 ljxvGkqUT1qMuqTLRwkgpe ZsV1KQszBZWnoprlLIk6QE jvXUGhpBG9TSNpwDAiQ4Cw VZSrYC6twia7GKL5EMakHN UnIrZ8XUSozGTqUCYmaPqc WLlbd538XMN9UgXkCLGiza LznFkheS5rHzQeOIWPyYBb clxwYXJ9 GROSS DESCRIPTION (test l0ceoACaOFIxeEA2ZvRcVH code = 3366) Glc5bvv0MluASdcVKdLMpe zXSiheZcnq22mST0jN50BT 5tWYYyBbO4YZYpkbZ5Asv3 YAPxRFCbbSOaA299r9bll1 otmhHteAM2ZYQmPNZaD8Fl JT0sJCAwnOUzY47erZPmZK B9LFAgPJUisYRmNFVtOBI7 FBWthSTsA6kxPLLmTL9cxx jyZFqqYFfiIVLjqTW7DYPg yTJwC4OoEVZbVCxoWTKxge j4TmLzIe5dcPFqwXczGBcs YXJkXHBsYWluXGZzMjBcY2 YdMEKsY2EwGFOuOBc5DRWw aQ4gZx6ugMFvaS7xE0RrCG IhZNEsfOYdLJVvXAFfo9u9 kAW5mUBrfSH8wXMusIinFQ 6smDYrMD1BIkNrogVzK4On QMQeT2QaUBeqviFxBEWuwE 4vr0raD6FxBB4zBTtoVLGa ZWNpbWVuIGlzIGEgdGFuIG ZgwnXncuDsQEtiNIEqu0Fu gKEuOQRhsEYaporkCL91QD AvFGlsIsRleQ9ceQBoU1Nk ETC8RVFzMHBxV2VfSYIeAA kuGSAfCO1mdIFpJOIkBJDl AWAyGAMsyOAmzW5ulxOfni RriIy0LTAnFNOnceCrh7Nc fLq1vTQgAGnpGMXmkS1zoL 0sEMZnSAAmutquZUMlQ4Ay hVAzHYspJD6kJJzEKNNaHH NDUClccGFyXHBhcmRccGFy fQ== MICROSCOPIC DESCRIPTION u7kozVHxAEEeeSR3WdLgHH (test code = 3371) Cyj1zqm5LijQBoeOLuIElz jTTmofBzdj82gEK7nF81PS 3oPTMpGyB9KIVooxU3Zrp6 KTXdIJZcpDYfZ087a4tnm4 tpnpOayLX7tAffXRRekokh TfE7CPzvHXBzylulNDv2IG heAVTfsTD2ENPzhTQyG0Vg QKKuSM9irnx0MXB6QHvrFR KjRrQ3GYSjzEDzGSFsxAkj VTshl951XGS2MeRkOJLqmg VmnPhhjB6dBgNdTEHWREOw x5XlRHYzgSZtyR== SPECIAL STUDIES (test b8btfQYhGOEuk7rqRWVlhX code = 3376) FuZzEwMzNcZnRuYmpcdWMx JQkrruOfLXsoc0LfH2IlHt AwMFxhbnNpXGRlZmxhbmcx TDNeYGR7xhRbPZXoTOfwIC LlJBzvBz9nvHMroAadSxBo CHLmw4zuqyNPgdrtpIn7c0 jaEHSfNdI4nKFpKPfyQ9qj cjAjuUWmV7XbfSIlsXv3e5 jmWsOiFtL6fJGsIOdmL5uh ceZebPFkYBTzEMl5qE91XK UwpI9byWKvFWqihvFuFtD4 SOdgSUCpEpU1SRQfnKDwDH YbR3kvWOOtGTitPHYbDTyk lTYuKCJ0iXyql5G5iKUhyE ZrsNdkWkIsDmPfTtJUq5Yv SPh4wAjwF9SuAAOcGlQ8nX QgUGFyYWdyYXBoIEZvbnQ7 gOddbmPlc45ruOElMTHsBL RpRgQnhHmzCKGkMBCZs6Mx fAggEQP7kVr7cAusKmtqCL S1Jap5SU2nft62ldn7gGqb QXTbuhnzSzS4RLkmMUSaev krYTg4UCokMQYhpXJ0IAKg mJFsV6YwSJPkKL1tqwz9HI F8UMcoYZIlDeS1GEUscZEd BIRkzOngZGttz134JVG0Eh PyLN4cM8Dmt8B5aX4yeLGb VNIudSXnMgLzVUUkcy9vfK MgIGlnq6LxXMA8bdF2qKKb kTKcWFZwIA86Apgwj7RvSa sif6PpR38dgRA5DGabj5hw XJ7fRwO6rjMeBEiqk2uvrN 2tSgM7QMrpMM2nED6qHXBo cX6vljfvWKVoIhKinnyxGQ LlkIsrfqWsTp0vqCpeVTT9 KTpzB4retP8mDmA6IQgoG0 oikO9dIGg6YQapdZY6GUEc kC1oFB8rhhbpq4iwXTlhEB vuNFHbbqI0dgE7TYPynBFt E8JlbF8uSMXjHK5djapxw3 qyMRB5BMboTLDcJUR4MlTo HGLzr4Zyfea9DeTkg1NhiQ DeCOknL51yo040ZPRbucYa C5qqpXCtnnsjjFRocjikKF xomoU7FIFgZKWjMOrgECGs XGZzMjJcbGFuZzEwMzNcaG ljaFxmMVxkYmNoXGYxXGxv Q4iyEzQbH6XeLVFhGxZyVH qcEFaynIZwxJVvlMS2yZ3x QF5tEUCsrOMkJ5KjDXSlcb MbgKOmWII5eZMzySUnAY5d OYigdPPlc0ymo8VxF5kwzO pfwEP8WS0wEXQlDSXbFBsa p5BcpA9cVafxxHRorkrxQK xmczIyXGxhbmcxMDMzXGhp Q3bhDgGcEHGiuDacWQuon4 NoXGYxXGNmMlxmczIyXGx0 cmNoXHBhclxwYXJccGxhaW 5kUbWuWdSmBlqrSP9uXTVs R4qgvEGqPIUbJASoH4tvJs FxgE8jjPygXOubVqEjXkUh ArDHg514du4lRDAbyAQuhz SQdNBraF4rWUczEHdrYLqd cOZvPHlpf0miXAIrs3u8fE MhQLPjydHud0bjJUnrgtRp FQOnjUWwzMCpDHQkg07yUV zhiOpexWsxUFQqi6RicHhn d1WoUfVpUCjrc1JsP49vvO JvbCBzbGlkZXMgcnVuIGFs f31gc6anMPMaQjR2rCExeR B0qCFmqTTnj6SprLmePJQv q1cmWLDmlf9yaywsjBFyb7 FukK4zhgjcDNixzMAczuCz LBZfx8l9iPDjNXCzCDDcGJ yomCb7BRCjk039if6wtcK2 uMHyRMW9ZSdyEOYhBLXesy UgZXZhbHVhdGVkXHBsYWlu XGYxXGZzMjJcbGFuZzEwMz NcaGljaFxmMVxkYmNoXGYx RParJ5smDePdK2DeWYBzVl GqnVUoI9bfhQHtXGWvDSsk XGYxXGZzMjJcbGFuZzEwMz NcaGljaFxmMVxkYmNoXGYx CGofS5lcNrNtK8FdATAoCv IgIFxwbGFpblxmMVxmczIy EDllqkorQAVjUPknR1oxOc UdTTTapSkvJWxyn7EjJSWo RYHpDvjerxCeYBl4qmWnJD BhclxwbGFpblxmMVxmczIy MFsclephABYxWDfmM7rvVi UjBBDxiPyuOTagq7IgVQXz XGNmMlxmczIyIEltbXVub2 hxw2AlS3izoEtgjCM7SXIu W9mcyNTnyDX8UNM5zN6rWL eyxkXmGSGyn1VtXALmOZNt LhG5pU9qUTB5JyFUpNejOE BsYWluXGYxXGZzMjJcbGFu ZzEwMzNcaGljaFxmMVxkYm SxMJCzVGoxT8opEtDaU1Rl XPUeFcGwvBlvJQwsBGg6Ql xwbGFpblxmMVxmczIyXGxh xoxkLYFwYThoD6eoWoTmHX PyoJecYAnsp2QaXVYsRWJo MlxmczIyIHMgTWVkaWNhbC PPGW85ZUCzOLCoqWredQ0g hENZGBIygcS9o7S9TJscEN UtPFv1NLnlgtAuAMPyuA6x MQJpZE3nTEr2wlYyWPMmh5 ArRW6cYZJyaWSnMMF8LXKp i5KlX5Ntv7TsHPZqAWHuhy 6ncoTaBzGPpMDiCQObiy26 FIWzCG9rI8dlJESxXQVddh QuzIBee3GmFFEtcJW4lZJa BF2TIsMDt36mSQZpRJXCzm DgVEPydGueqIE8koR2eJ6g LiBUaGUgRkRBIGhhcyBkZX Rsjt1yqzVlMVWsEGDit2Vb zGQjaPShntOaL9Ycl5HoZX Aodb10POnbuEOhtp21LZ1i E6Cdd5JwcS3bWUbaEWXxz4 EnsYSapVJeTLQjz4GlO7dr intkDCicvRXuoG7lCQFaSB b9MLXaz7YxGSEty9XkXqWi paBmAFSuPZDcJXQquQ18EZ L8oDsszSdwtzVuWH2tHCPn yjPiBELuTZDcoB7lRTyhdv XkYCPxdyO4s8N2MRshWLMk oiReYljgLTP5dqCmfnP5wE GlE4lqitlzJPneKLKiz8Dg nY3vyWPFsOAmi4MgeNJyuJ CKgZCxTO5zbgNcFN1jEOQ6 ODggKENMSUEtODgpIGFzIH R9GXxdBhxmSYK6mqNjAFUk f4IuIJcfA7jsK45itRjbdU u4nGNhnRrfjXQfyLSnJKXc ijX9o5H0MGHie3SyybqiBN BsYWluXGYyXGZzMjJcbGFu ZzEwMzNcaGljaFxmMlxkYm BuNSXyGHyiK9zgXuErLyMq RqpfHWM0bI== Gross assessment was [facility] performed at ([facility], = 2777) Department of Pathology, [address] [place] [address], Technical component was [facility] performed at ([facility], = 2778) Department of Pathology, [address] [place], [place] [id number], Professional component [facility] was performed at ([facility], code = 2779) Department of Pathology, [address] [place] [address], [facility] [id number] 14:51:42 Test Item Value Reference Range Interpretation Comments Case Report (test code Surgical Pathology = 104) Report Case: [id number] Authorizing Provider: Jessica Espinoza Collected: 06/12/2021 05:40 PM MD Meme Ordering Location: [address] Received: 06/12/2021 09:22 PM Service Pathologist: Ofe Luciano MD Specimen: Liver DIAGNOSIS (test code = [id number] 3220) FuZzEwMzNcZnRuYmpcdWMx IHtccnRmMVxlcGljOTYwMV ilphWqYUDhrSArX9Afnqmi PIcaWR3uSN7vuZcvzMBcoN CgGIPjMtJgr7fil599jKCg k4qdWVAIuzgjeAc6kXrsI2 1qo7J4LlhzC04urSQdKXE2 GJQkHCGvpBOmYRJnJGI0AT PvvZIbD8dyYPIsBT3efgfi MOgfPKppUXLlcKJ9VXXqdO LqP3WnPUQqEWljJVCcaqx5 PxXxDe6orJFtbMvcAYyeBO JkXHBsYWluXGZzMjAgTElW ICXnYRURZ8AJNYxrtUBzLX 9eVDWAPd8FDWPSJP1HQJUg xAOkDP2xB1XIFAYNYV7QMj VhzTSdnTdinuReDNxnr4Eh FKupIQAzPK8kiWlgJTQrOG 1wMDZjR8cxfN4jgvn1KnQu LJCnGgF5LGQkzeP1Crv6RB RmUTdcy5yzf5RiIFBnNSf5 xVnlEmNdXOVkp4ntxfSdHg ZpQFYmONLmVPOreETxR195 p8cgl6wjhcSiaYQ6TQXpPU P8UEkybvVcnlN5QEmhuJGk FiO1KCxlyhPyXHoczgVeeg ZcGlq8ZVGuD567OWV0oRha f9ctKAE1CEAcQBBlGzDbQd 3xoNFaN784MCRwOLZPRKHt xBp5OVFcgrLqphMefTHQg2 69P757s5chIWDfflPniYbX qoggl2zxQ561LNTbxMYocf DrYuGuLOMpfJJspRE4IUTr PP4xlqsiGLmfKJmcRPBkdq X0ORPhqKAdU5KlOWYcDV6c iyodSLT7UJopEWGkXSO7Wc OcMCFbj8Hvzdm6QaYade5l rv48CFH9u4EtqTcmNUO9WX Y5HsFlFw4vsQDnHUZqUC7e PtMrfTPnJHKifu03dYwxXF mzOPW3ZMZffmOdy8Sbl3nq GePmnsDxM3giF5NtIDPjQI XwAOMyTeZnjlJjb3Wmj9Gm kBLdpFd4g2rsJVTpCUTtwV ahl2dyIEC8OGYdwFTvA4el gX1zZTLnQL4krhlbi7paUZ jhAPvlNJOgwPA7fkL8XXUi eXAhB7GhzX3fGMLdTUonNP Xlkkd8PkBrVx2euJYmxKhp MFxzYmtwYWdlXHBnbmNvbn RccGduZGVjXHBsYWluXHBs YWluXGYwXGZzMjRccWxcbG FuZzEwMzNcaGljaFxmMVxk NnNyIPTdHNwrK3vnLeCaQj YjHdn1YYRhxOTrUDMqMgf1 GEXjgVJlHIPKwRdhgX0uXP TsbBxdtW6inVW3GGAwchLh mFDEnC9qQZTEyA9hQyM5YB YiMvh9GBO8FmCbtUVrqL1= COMMENT (test code = y8dcjSSfWGSsnBE2TbKjHY 6650) Jqg8umu9UphHBqlTIpCVjt hVNhlyFvzu81tCX2cM85TQ 4xPKOrZwV8KJRrzkA2Cpo6 VTVgBMBrxRWrM940b0mrx8 fampYfiDQ2tBniGGKsdomd MrM3LTmvGRIcibwvREj9XF neSRWrnBB3TLTftNXfW2Tu VEWiWP9sjox1EEB3OFjaUU FsJmH9ISSooPGjXWVmhQzo AWwfa898TCB1McYxBJWkak LyzQzjlX7vTmOzWYJKbJFl xRsqmN9gy4bvEbZkCKV4jT LcghIyIwT9zRSsVbzfuKN5 LUXlw5btICVxf59xbOXtxr DlOAScg2mwUySfTFZoj76y s5JxxTHoaWdwOP39BYdgTP 8ylQyynfUyXAoyxiD8qGL9 IGFyZSBzdHJvbmdseSBwb3 RbsHt7QPVao2HwN7s5MJDa TFElOK3mnSYvp4KaHXHnik ptHR7pRD4vO3F3tWLqZXYx vpSUMgFfDRiotVVyz6wqv1 TnL5epfSqkCWbpt3PlnT6b IsQsNURlgXOcj45olFs6DA BsZFAZDKAhOLQ8knZtpC3n pLwwmK1pWWNgcd1ym1qiQQ 5pbiBhcmUgbmVnYXRpdmUu SETQkERuiZtxdH3rnDAnUe FkgaEgw9t3UQQhJDDzs6Vm tvNbcc6mVXUzrRSlxn8sMG Jjx86jE51trW5vOILeyZFy PFPblNIucZ6cg1fuuGXeSL 3yODVpObG1BbJuDkUwhNCr hp88MBTxYBQbBDCnbG7kgJ 0hpkOgUUnylmRotpPzDT52 EZFby3ikmgmwn7VveiJsoj 2fMMCloe85fMApUKBysgBx o6FrlXWdwPHsxLPzfrXnvU NsdWRlZCBjbGluaWNhbGx5 LlxwYXJccGFyIFRoZSBmaW 4aqW1jsmR9SMPhBMNdoIM8 UZHytE3wJKOdHJVmbgPjYS dhZGljaGVybGEgdmlhIFRp L8IyGSTeyr2tV3Wpo81lVA IvMjcvMjAyMSBhdCAxNDUw LlxwYXJ9 CPT Code(s) (test code z6vgdUTcRJGwnJM7EfArZP = 3357) Aum9vkt4MkgNXriHKyAHeo qVSvsvXohg16hLG9dH11OR 2yOTStRlI8NUQxxaP4Dkb5 GBEzRBKtuYOtK696r3rar1 bijaGvvJV1gYzjAMTadoea PdS1OMvrEAHriookVUg3MN clTYNaePD5HBHhoXWxE7Pl YWGzZT7cscm0TKO4YCmyFX WiQqB0HTLroOAtBXVyjUcb ZSggf338JJK3CqRzMRSclo OzmSvtaW2nZoRuILF0VQOs UMtpIFnsHXYqSUx2RrHiHY ggNVxwYXJ9 CLINICAL HISTORY (test x1cpiXCxAJRvzWJ1DgGwFJ code = 3356) Pmg1tdd7NtfJEyyGPcFFbq hUTjpvVzoc29mCK7oD88UR 0iUXUtRsE0KRIcbpM1Fvo1 NOOqUCQtpSCyT363u5yfl3 rhezEpvJW8rFftSHAbyqdz MnB7TKymNYLsndkbMUa1YE ijABFhnEL8PZJocIEiD0Jc HANqNJ0zndv6OQX8NTslVU ZvBfN1OUCesDYwLFKseDue EOpfu232FHT8ZqJgJMSgle KfoCdrdV0yIgEqQFKZzrwi cmdlZCBsaXZlciBtYXNzXH Bhcn0= SPECIMEN SOURCE (test f4bnwENoMMUboTP2XqFiMT code = 3377) Kol3hkj8OazVDfeFYpFDxx xOZfmqIimy41vIB7nC04PL 2kWZNsOsF6NTVahdO1Rmd7 LNIwNTEvuRHvH965i6dkp3 rqsxEluNJ3fCqvUHOvgxlh FcY2ZOtoXLGernbqRXs4CF umAJJpsOL1LFNtfJKvD1Cc YMXmSC0ghpr4PQB5DIkcSO MtBiY6VKVsrCMtCAZaeKhc GIbov768KQL9ZjBqFJLumr SnzInlzU8xJwWjIPLOdKTs clxwYXJ9 GROSS DESCRIPTION (test c0rikWYiIPBwlHV3VaHrTE code = 3366) Rsf6pue1HqhPBikQUiMChr uHRqteEzor45eDT7gQ27PR 2mYYSsQkF3EJPqjoL1Ddy4 PYHkSKWlpDEgI041i3lmh4 cgqjLwuAP0HELcGKVsY9Dv XX5fFYOpzJYpU46spBFqMW E8KDRaYTTpfAMfBSWyLMO5 ABRezIFfT3vnGVCkCY1qza jtHHigZJjgYQYomIZ1KEDo iHZgA9DxFHRfUGirMXRdet a6PkNjHt0ejNBlvNjqIXqi YXJkXHBsYWluXGZzMjBcY2 XeSEIvZ4KkGTFwUSz1RQBq vS8ySe0gsPRcgT7qH3ByQY ZiQKXuuGHdUISiHNYva4t7 iIX2nYHfeVV5wGFisOfaCB 4kaJJbIM2DFbYuacDpC8Jg ZSQsX9AcLOvthpAhICAxtO 6ae2cdC3PmVG4hPPesUXLt ZWNpbWVuIGlzIGEgdGFuIG CbfnPbgcXlCGcjVQTvw7Zc sSZuZWTrdSYombhvUF05XL ImDBrfZtWzjX2jjUQbO0Pq ISZ2KBWhYUPnP0YsDIViUN zcYEEbYL3wtCWuFDWaJWFs EUOjPNJdnOMcrC5ijlSodk DivKe6RGUwUXRimkLvf4Lz aSe2uAEnMSrrRNEafW2yaG 6yOQSgCBNpxmyyBLXuY3Ay cNIbNBtgRK8pRMkSSVAjKZ NDUClccGFyXHBhcmRccGFy fQ== MICROSCOPIC DESCRIPTION t3xccRSfHUYilTD2WyFaVT (test code = 3371) Dxp6emi2ShjWDxmMCsSLst xWWepyHytf99tAU1lR52RC 2gYQPlQtL7CSXykkN0Zds4 IHGlGZXbdOZyW498a7lix1 tjxnXucIB0vZwcPEBagkkm GhR3DWziQELlriuwXPv1WN whWMKkzDI8XXOrbFRkO0Dp EOJlMM9kccx3JQD1LLvpBS NoGzE8TSVwhOYpYTOcoXmh QRgeh725FJR3GuMtWHEjvd JqcGaboT2oNvTiEWCZABMg m8EfSHRceOAioQ== SPECIAL STUDIES (test d7tmmVKdENUqu5ztTGPbgS code = 3376) FuZzEwMzNcZnRuYmpcdWMx KUtygtQhZOzvt5UxK0WwTt AwMFxhbnNpXGRlZmxhbmcx SNGtVYJ9rpZrBFHkSVzaKL QdJKheOn1jxCFvuDvnFhOi EKArd6lqylFShzekgUr7r9 yrPRAaAlZ6iFVxBKwuN5rf miSgvWTaN1PlqXNwrTy0w9 ybSaZdYuE8fLNpSIqdU1at rvSdjAQeNGZeKUp0wP32UV CfyY4cjWRpTUmxjwRoNdI4 BHfkVWLxCiF0ACPocIGdWE XaZ0ucJOVnWCqgIOZsXQlh jWWkUPI8eNlng7T6gNVeuU SuiVbdPeKiIbDpFgQHk3Zb OWx9rOirM6SxMLZaJmI5gL QgUGFyYWdyYXBoIEZvbnQ7 tOvwuaHin00ixXVjASIvTL NfIjFkmGekOPXqILGAl4Jc hKbfRGO1pDf0iWriWvskWG W8Gik0CR7xpp54pag8mXok WOXvcingEvI0WHqlCCCxgx fbORe4ZSbpVIKpuWZ4IKKt bDUbQ0CxNCSrMF3mvmx1OQ W4ZIegANChEhD1RKXllBRb DNDruCvuZCnsm821WGN2Xc KeLP8qT3Azp4Y0bH2aoHKh HRCabOOuWtTwQVNonx1isK NuRJjdr1KwVEO3vjK3cYAu tGGvEHQxNQ70Xdbpj4JzKd yqs5WgU04uaUL3VUhxo0pm PO7rVpE6qoRcUSmzr1kriV 2iIzQ0LEqsGU0bIT7eFOTk eO9gkkqwTRPdFmDdoannOR MwzRnuufJiQi8hrDfeRBW6 FHymK9ypfO7jKlH1ALceQ8 muzC4bYIs1CBirxON1YZKs cQ5aLL3vymiyf1siNOqrPG fcFYGevvW9fiK6HABywYIa C3IzjH5gZLNtVB3lbuyuu1 dfBDQ5HPebTRIgQVB4QoNs EPOmo9Bcwto1GyEgf9NozT YhNUcoG61ec868AKNsafOq N0kmhKEtefexmJWwjvtoFJ ihpcM2MOIbWVHiRViqTCUu XGZzMjJcbGFuZzEwMzNcaG ljaFxmMVxkYmNoXGYxXGxv L3rdSlJyL7OxRAZrRqWwMK ljRYolpIQizASwhBN0mU0o YF6uREHcoCBzJ7BeERCxld NtcVKhDZZ2vUByxROdUC8x GTdocPTfs4mtq3EaR2obkW nsuSS0XV4mLYNcWDKdOSiy r7XxzP9fMpjolCKughwmEJ xmczIyXGxhbmcxMDMzXGhp B4kbKfGfQUPorFlaZYlqf9 NoXGYxXGNmMlxmczIyXGx0 cmNoXHBhclxwYXJccGxhaW 9lRzTxZkJhFikqVX0yDNXb B2firSVxJRIbDPFwE6ufBu HvvV1hgMlsGKffNxHaZpZx WhFCf269hh4sFMAbaIHqni AOhRJmbW5bHOmqIPppILed wCQiYTlen5glVIRhm4w2rU HbGOXyjiWlx6ruZDpjpwRl FHDpfYMtkVKsQZLcu60yCC sunGjukOfvMIEnu1KmoPyc v7XpBxXvQHwfe5YlW54diA JvbCBzbGlkZXMgcnVuIGFs o36gh0nwBIZkToO2hWDwvF M4nCHytKZus2VavLlsZFPw t8bzQUWkzc9kipsqqWTwc4 FzyH9sebfxOYftnIXgpjFp ZVVyw0r0sROhPTQmCDLvBX oitCn0IVSig262lk2tcqB5 wGZjFOX4CTqbKASaLYUihh UgZXZhbHVhdGVkXHBsYWlu XGYxXGZzMjJcbGFuZzEwMz NcaGljaFxmMVxkYmNoXGYx NPeuW5upYwNeD4WoDAYsQl PxqQZuM9yocQHxZUGkWLvc XGYxXGZzMjJcbGFuZzEwMz NcaGljaFxmMVxkYmNoXGYx FJkoW0vkRyXfS8LbGNXvAw IgIFxwbGFpblxmMVxmczIy NCrdzknhYJJmMAcoP6ybMw PpAUMqnCokSGbhj4WwEQRj DZAkVajpmiFwAMa3gkUkFZ BhclxwbGFpblxmMVxmczIy BCbpzcweKYPoLZhcY8qgCg GgGJCcePjmJWfou3VeANRq XGNmMlxmczIyIEltbXVub2 zzr6QeK6muuNrqcYP8MPSi Z8vxuMQrdDA1WRJ7kE8wRR accgIlEDIaa9HpKYPsMWNr SkX4uI1wCXK2ZtDZxLvnHQ BsYWluXGYxXGZzMjJcbGFu ZzEwMzNcaGljaFxmMVxkYm JkVQChWFblP9doXqHzD0Rl FKIoVgUrgCffXIepLKw6Ag xwbGFpblxmMVxmczIyXGxh aguwQGJuZZkpP9okIuNnBP WsySnxMBniv4JiOOLcECUp MlxmczIyIHMgTWVkaWNhbC WUCH02DABlWTQaiJxlmA0d zTJUBXPtglI7g6W7ZJcnNS FeKYg0PLxnebVnBIGowU2n LNFbYU2nDAl7huVpVVRgm1 GmWM2qWUPeuBFpHBY1LGUn h0UmQ0Jce8OjTZPoRQLlkj 2xeyFgVmVAbMAyLKAgbv68 BSDaPG2oM3zaDVDeJJLtyz YpyIRxi9JtSOBefFT6qJVb ML9OHaHVy33fFHUwYGLBrj JsNZNpiElksNB8lpI8qU6v LiBUaGUgRkRBIGhhcyBkZX Gdxg0ipdYvXMPhJBHyj5Cs rLKirDQublOtF7Cmr4JuAY Gqrn96QGrecDYmrb44LA2k Q2Sli8QyiH6aYXslGYZes5 StlAUjnYAkVXEfd7KnS5gu idcySKkvyERkqJ0gEAUxUS z3SLXfz3WdQWHxe9BgLdLx ceEfLNOcZGOlHBVriZ43MK U6oCxxaBfgryOoNQ1wMGKz wfDsCRSoLDXygN4oRMiwpj GbERKtyqK6v4C1SIzgHRQd wyLeNacnGGM4ymEesqN6oD AjY0gmwyfdTWrpFVJsl6Eq fG1vxDULsYZnh8RoySVdhK SXoYUjFG4aeyHhDJ4tTTC9 ODggKENMSUEtODgpIGFzIH I6IUqqZedgPCL2myFvOKEo m8TjPPbyE3ogG74yoNpciV n6eOCsxFfhqIEcoHJzMRAo dlH5r4M7FCTji5HmhgpkVD BsYWluXGYyXGZzMjJcbGFu ZzEwMzNcaGljaFxmMlxkYm LbNPOpYCkqP0zwHkVmBxVo CwfdSFJ8tQ== Gross assessment was [facility] performed at ([facility], = 2777) Department of Pathology, [address] [place] [address], Technical component was [facility] performed at ([facility], = 2778) Department of Pathology, [address] [place], [place] [id number], Professional component [facility] was performed at ([facility], code = 2779) Department of Pathology, [address] [place] [address], [facility] [id number] 14:51:42 Test Item Value Reference Range Interpretation Comments Case Report (test code Surgical Pathology = 104) Report Case: [id number] Authorizing Provider: Jessica Espinoza Collected: 06/12/2021 05:40 PM MD Meme Ordering Location: [address] Received: 06/12/2021 09:22 PM Service Pathologist: Ofe Luciano MD Specimen: Liver DIAGNOSIS (test code = [id number] 3220) FuZzEwMzNcZnRuYmpcdWMx IHtccnRmMVxlcGljOTYwMV yoqcXsLVCpoRLvR5Lobosl WPbcMG8dKW1tkWqazZZbqN TkZIJcKzKlt9ypz974cDWp n9izRKPHuiokgTr2qAyhQ1 6at2T6ClhuR34xePJbOQT3 ZDTeQUEhdPHxQWBoPNP4PJ ZecOSlX5yvHAXbHV9oxsyu HOqxYUmdEIDidMZ4WJKnaC QhZ1ExQMFsTJnvZSHvvxv0 PiKhRz3olLAmqBrnWBxdBB JkXHBsYWluXGZzMjAgTElW EZKkAQTTM8MKIAvduFJiJF 8kRJJKYp0HEATAOK2NSTBy mUJaHW4xS8IPRDRUGB7LTs MccWNyqKhyoaUlTAklj2Nc VXhdWZGlNX7rlBprGXWzAK 4gYXKnS7qccI4esig9WjKc FQGeZyM0LAFrwgO5Rwh1QP KdCRycr9fsa4XkGFWqXXq2 cHzwQkXnQJCyr3jogxFiEr IjLMXkKQEtVTNwaZUaG231 z4cjz5mmijOvzPW6WUYcUL F5VXsyosOtqwK1JQdfhEZv UzK6HHsblwQiVJswmrLijg NoCzd8GWIhB660PSR2iSgy r5lmDAA9NIChDMUaEkYvGo 0znZWqA663AYEbTVEBOTCz pXv9CLWiloXmvsFxfDGCd5 83R506n9xcDGRkilCjeBvY eymzz0oqT218QIQgpQDuob DmKdPsRCRfnHGdxYU7JQAp UA6ahzgbBYftTTqxBZZgcl C5DQInvTPzO4DdNPUfJR4u moiyZHF5UIhnWKXkHBK8Tl QiYDZve9Vaoff4NlHseg2x tt21NUE8q9SuaHtwUQI7CH U6BeVoRo4oaQTkBXWlIO3w YgGydGObBRZioe05rOmmTK xvQSD6XMBylbUsm3Hjh6wj CpGjreKjZ3szM5XoLGMcPP SaJMNiRtAxgfMat7Fcx8Cn iTJkwMb2m1klNFRgMSMcyE adr4yuFPS5RISosXFaG0ak yF3mOETyFF2laihii0htEV xeVQhgAIMqpRN2zvK3MKGh mUJkN9KmjJ0qTGRhXPjiYF Jbfdj2TbHgRh1ddEAmsCqp MFxzYmtwYWdlXHBnbmNvbn RccGduZGVjXHBsYWluXHBs YWluXGYwXGZzMjRccWxcbG FuZzEwMzNcaGljaFxmMVxk WsOyOYKgAFxeW1fzWqNkWq LzKwg7KDXxtTCrCXLnWyq4 GJEchBEhYDEXwSwnsM0iJD OfvTzprK7irVD6MBFnpxJl kYJMbF3tZXJRyJ0qCgW5QI KzQlt8XPU0QyKgaJCbbT0= COMMENT (test code = o8hhqDBpHVItmMP7WrCgCQ 5021) Pcs7mry5NkrDVxbRQnNOmc cAXiptAaem07yUQ7tO88EK 5pZGMyIeE0WEOpfwE4Mbl8 YSDrPETuwYHiD227n0eui6 ygvrCrvVO7gYpvGJNboren GzL7PHioUWEaixvjVVj0JS voEAPpnVD0VEGsrPPfJ8Gc SVYxGE1xcjn1ENR3AIwyJQ ReLfW3RQNeiXHdIWDweYvy UKjwx852VAX2CvSyFLHmwb ZpxYagoU1bItDzXKSXzXFh kQdofV9eb9gkFyDpERA5xW EjbhIwUqO4tBDoXicjlSN8 NXWps1vhBALep53iwACzvx NxMHLja4cuXwMdKHMoz44n y4CbnBMbdFfdZG23UDddEZ 3ekAydydOeLEvyrrK7xFD4 IGFyZSBzdHJvbmdseSBwb3 OtuOt0KKJfx2WhI9a1HDPa USKnVA5biNGba2UhMZMcgf bbXI6pAJ7mE1X8qXZlTOBo tbAVMhBnKGlhwEYsg2bat7 QlY8ighTecEHpij1HbmL6s LtYtQJMaaVHwp26khEi6HF EwLWPKMNObHBS4qrMczU3b oLqytU4mRHVpcy6ep9hpZY 5pbiBhcmUgbmVnYXRpdmUu FJIUxDLzaSkadQ7mnODdBo YsaaHir7z3ONEfUDOnz8Jo nwRknc8fICBctUPnpa4uKZ Yvi85zY12qhL5lFDIecMVx XMZorOUreA2su7tuoMEzTJ 9yKEKfLhG0LcGrYrHkgJMg cb10ZSStBRTuJOYalQ1flP 4yqxEyCCtfdpQctkCjKE79 AWIja5ebxrfsb9JrkyTtpx 3pFTIwjp17pUOaYNXyvtVh n8CukFKkrVGytAXlxrQdhN NsdWRlZCBjbGluaWNhbGx5 LlxwYXJccGFyIFRoZSBmaW 3xwZ1ovxY2KFUaDCUvkCU3 DNNzvY7qUIYdHPRflyCrTJ dhZGljaGVybGEgdmlhIFRp B5YcMQImtx1qO4Aeq58xMX IvMjcvMjAyMSBhdCAxNDUw LlxwYXJ9 CPT Code(s) (test code a1qoaOGlXCIsqBW7BzAvEG = 3357) Ovv1qxi1NhwLWitIRpQIsw tYYafcPyip90aAL7eT62SQ 9hWBRxXgZ5EOLxujR5Hot6 IYBpPGGsxHMaI060i0onh3 ueljBabZJ5vOtgYOPoifno RsI6NUfeDARocvehHXu4XE xcIHFswTP1OQTpcQHbD5Xt ARDwUI8cehu2MWE6HQkxWH NjEpK7EMDftHSfDHXraZnm RIbmk095KAC6ZnHdSJShni MagZiruH1sZzBdGAT0WDAu GWqrYFmbKLHyZHe3VdYtYN ggNVxwYXJ9 CLINICAL HISTORY (test u4kbhXGrUTJzwYX1LkLrBP code = 3356) Jpz3pgy8BckBRdrHRsCOah nYThnzObts62uMK6aV58WX 6kLQFbJiL4DXJxaoD7Awo8 XGZiLGAyjCMsU814q2gev4 puhsXjmXC4vTozQOPuozsf HmS2MHnrMFOoawzmEKx6DQ ebXRKzdQF5QBBnuZOaF4La FGWdZH2opwg2ZGS6VSosQX JfDzW9WPRjpPXiMDKxqZba AQnsl944JBF7JsAjQSIdbv UxoZslsK3iYwFkDBZGlzft cmdlZCBsaXZlciBtYXNzXH Bhcn0= SPECIMEN SOURCE (test f5jflYByIMVyrTI3JrFhJR code = 3377) Peb9jpn3IssJYydCWnAFmf cCPwbeQsbs40wFS3bZ09MB 1bJMMbZwA2HNKsttP0Syu7 JJZiUQFepTMeM536f7swt3 eoghYgeTF9lXyyENXyadni BoX1MFmuLMXabohuETx2YH fuUNBonXC8CDUwzVNaC1Th CJNpTG6jkqv3AFU3HXplRK SjKhI7GAQtnAYpMIPhyAwh VDwmw294OAP0FoSeETMcqm TbhMiafP1jYwFiFMIUeNHw clxwYXJ9 GROSS DESCRIPTION (test o6kjpCPjHEExnMP3CeYcUM code = 3366) Ulw2vpb6OtjZCbhLEiVOwb gTWusbZyqi00kBJ7xT26AH 2hGIHxKhN3GOQqvdV1Ogo0 BSLpBTCebKBwD530o3sfr4 jwqfPprCX9RPArBQZzD5Kz ZE2wUQNhwVNiH23beNAtBG W5LXGwVIRlrMSmETKzJUK2 OZGgvEXuZ1kxQFVnUY6leq suKAukTFrsXTQjwRP3TTWc qSSrM8EuGCFlGDkjYQRjfw r3QwNdYn3tuXHixDorARfr YXJkXHBsYWluXGZzMjBcY2 VkTOFxK6LrGBCpTOa9XEIe gG1kJa1yfRMoxV2hA9LdLD HmWMOdjYSiOFQqYHYpy4w5 zFJ4mGDqfRE2aOGknAkaNA 3aeFPfRX5XRnGkzyZzE1Oz AQRxG5VmQHgohmJdRVNsbY 5jn7zgC9CiKC2mGZeiGXEr ZWNpbWVuIGlzIGEgdGFuIG LsudLlelCwUNvyNOTbe1Lg cMQzCFXmzLBvgeyjAN30ET NhAOwdRaTbcI6gnTOtO3Mn DFH0KMPeBYPoB4TmHSUcIE vgYPObFH5mhCGaKCIrLGVs JKTzVCNodJEzcK4jofQemw LhyWs3PGDiJRNmybRnh7Bp nIn5vXFeWJplJOPyyO5rfX 9nRQTqHKCwkvlePFLaY0Kf lVLhOZnkPM5qHZjZEZYaWH NDUClccGFyXHBhcmRccGFy fQ== MICROSCOPIC DESCRIPTION f0cicDEsFZJfxUN5BfHuVO (test code = 3371) Zry2uqh9WuiJIcgSEaVMxj sVDnqxIjew40gRE6sB60DB 3gWYOcIrL3MIBqkeK5Gay6 ZWQzZCFojYIaB031v3vrx0 alwvLvaGT3qTbqJZJomhbv BwV6UWddYHVhdybbGGn6ES qkBSFicJQ0VZHizFHaI6Vm WRDuVP3ndsj0GKF9GLquDC AfLkX0GCOtlIWgFEEubXmr HCoei956BJP8NaAkMERmwe OmmVdhcA9pRtXwNOZDIYQv u2WiYWDjfELkpS== SPECIAL STUDIES (test d0rztGIePRVfz0wrHPTgrJ code = 3376) FuZzEwMzNcZnRuYmpcdWMx GShhivDgHBglx8AmU0UuSj AwMFxhbnNpXGRlZmxhbmcx KCAzODI2tyUcGTBeAIhaYL JsBNowFt3pnWFzjRbuOyUq OQRtp8raqgJIzfjlhGn7f3 xqKUOcMbY6iMHsRQxeJ0ur wcXthQWfV3WepCEzhBa6j6 xoLoYzGzS2dDByXUbqJ4xn zjUueFBzPFTvZJu3sR50QB OzkT0jyOGyRQnblaYhMkD5 UZbeEXOvFvW5DSDsnUYlYE CgA5gfEXLiPVsyPMDiTXzc xPTxXZV1gZdee2E9eFMdgA PcbRgcRhVkLkHoIdDWw9Ii QRp0tXkfG0CyZSDzEzB5xB QgUGFyYWdyYXBoIEZvbnQ7 hQjrbzAbm03wdVItSPXfGH XzYjTaiHrvJRSgQHBLr8Sp pIqyUUV1oQq3eJkzUeibXN A5Hgy4ZB2vdo24pyg0vAry QKNkkmauBzF9YHvsLPUwmm ozQFx3VPeuBEBovXN6RNSr dNQeH6RkNGRjDK9wxbl2KA Q8YHrmGUYdWfZ8EXIpsARl RYVnaRpcCNpjt966TLM4Qy IoDD2gD0Hyi5A4qB1kzFXm GMLllIXgXvBuRGYxnt6apR GmBQizc6ToAFA5dkL4wYJy wCEfJQFsKC60Razrk3XaEb ulk0FhR65mdHK0BPmsj0yz IT8cIqN9qsQoUTtjo5cugB 5cCoT2TKfzJX8xGE9aYMYe iH2ylxncHUStNxKwgapqYT ZerSnwixVfRi0fpYtlWGC4 OMgjI2flkY5jLgU2FIiqS8 hwwK7qZEn8NNvicVG8XNAj tW2sFY2jgagaj8fnPNloBM rtVGKdubX3wuP5HMMilYXo A7TkrG0dDSJvRX0aoesio9 enRUM8OFaqLBWeVYE8ElCw DHEbz0Ygbjw7KtClv1BlxG AzFBcrH74od050JMKtbhNp U2qwjCHsyirjjMNbltxtDK npraS8ZNCdQXDdLXmtZLGm XGZzMjJcbGFuZzEwMzNcaG ljaFxmMVxkYmNoXGYxXGxv N2tmOhRcB7FyTERsKrUjZG dqHOyttVLilTYuiJG9yI8d EW2oTAHktYOpX9RdPQYjmb HseLUkQBB3mJSfxIHyZR8e YTgsgRLdy2okz6HgW5ppsE iyjGA7QN1aTJKzNRBwYMuy i0TpxD0zYysjdACimfuoOG xmczIyXGxhbmcxMDMzXGhp N7qyGxJeFZQgbMzrPQdib9 NoXGYxXGNmMlxmczIyXGx0 cmNoXHBhclxwYXJccGxhaW 1pBnQeGkPpVgnsGL0qRHPc C1sdsKPvVXTbZSUcE9yuFm OvdJ1ccStrMJboQzGcGjFx WeDHj434fh5zXIDdlTUxap BCsHUajR5xQUuhOKrgTWya aOAvNJehf3nxLSUyn3b6vJ UgGUMctlAki3krJMrxzeXx IGTldSQaaTYzQZWeo50mZY xzfPusdAtqVRCiw0PdyVnj s6RpPhDrZIgik4YzK73rtW JvbCBzbGlkZXMgcnVuIGFs g95lv9xaCGTsTqC2gXCphI T0nDHjuPTol0UltUrcHSQe c7mgHRCsyj1wnqmltDOpp0 ZmvL7vxzngIMjitMLpevOj ZZMtt7p0nHMdAWBpDSRePZ ckhPz3LSOjo339hz2hpmR5 kRAmTAW9BRocHEEcGHAxis UgZXZhbHVhdGVkXHBsYWlu XGYxXGZzMjJcbGFuZzEwMz NcaGljaFxmMVxkYmNoXGYx YWjsK1azGkXdP6KlLBKoXc YcrTUgU7olyZLaCACeYIll XGYxXGZzMjJcbGFuZzEwMz NcaGljaFxmMVxkYmNoXGYx RHfuA7qhSeCmZ7OuRIDbRs IgIFxwbGFpblxmMVxmczIy MVgxkfgdZQKrMMsxZ1fmTg LdGKQivVhyLBuxj4TuKRGq NQDnHxusydPuXJu0kjErWC BhclxwbGFpblxmMVxmczIy DPgsktgzYDCoWQccW5gfMy HcZZQviUltJIhde1XfCJUy XGNmMlxmczIyIEltbXVub2 jgp5GvO5sznNjibMO4ZDIe R1zftLKixKU1ZGS0uT4rXU xhlsJyFWBya5FhZLUwDJKo NoE2eW9cVOC9UeGCbZnxII BsYWluXGYxXGZzMjJcbGFu ZzEwMzNcaGljaFxmMVxkYm FqLRUaKLqmE4dwFoRgW3Vp WTLdLmPrjKnbIKlfSEu4Na xwbGFpblxmMVxmczIyXGxh rdgeHALoRZgqD2goGzAoSF EywUyvZWpel4JtSSHoGQHz MlxmczIyIHMgTWVkaWNhbC EPEB27MKMgOSUhkPzfwU1m kTCVFCNxurQ9d5R1HZxzYZ CtEOa9OLmpluMuYKQtwA8p QDFjYR4oWJi5qkMbQNPgd3 UfWN3jLGMkzPQeHBR8FSAt n7PuI3Kwt5JdJUZtFPAdgr 6qidYgAqKIySThGZCacn55 LYDxCD2lX0fjMOPzWLFwnj MhdGVjk6YuKNGjzSA5oGLv WQ1LBeCTt74pLNMwCPDJim DsSMShrQqtkGC3bzW6jS2q LiBUaGUgRkRBIGhhcyBkZX Prep5jwxXqOHOwSZGpe0Kh dEXlzFLbgjXiS4Weg7WkHJ Wtgw87XTyoeCChxk25IT0z T3Mbh0SuwM1hXTxnVIXea9 EcqVUjvQYwMXSkr8YkD9sm vdbqARqzoJDwbR0wQHFtTT o2RYYfj9TjXJNre8MzNrUc snElRNToLCVnGKNhwR68QN A2sTkspFjyfdCnLZ9mOKVx ebXiARQwVMHopR0nWTtdas QjYWCnzoV1i6I8VYnzCBXz rrEmGmruXDP3ydCsbqJ8tU KzD6cawofkOAcwQHOiv5Zm xN7rqTHSxOMuz7UpvIIokZ AQhYJxNR8kpvXyVO4rAFS9 ODggKENMSUEtODgpIGFzIH K2AGmgAjcjBGA4jkVuCFSb j1XgCLopL6cnU90qzTiqwP e7eJCsaQgmgLKrhVSpKSOn pwR4z2A3OIYus0DxcbzrMT BsYWluXGYyXGZzMjJcbGFu ZzEwMzNcaGljaFxmMlxkYm AgVYVsFEpaK5mfGzDiZeQn AnnrRRT5sA== Gross assessment was [facility] performed at ([facility], = 2777) Department of Pathology, [address] [place] [address], Technical component was [facility] performed at ([facility], = 2778) Department of Pathology, [address] [place], [place] [id number], Professional component [facility] was performed at ([facility], code = 2779) Department of Pathology, [address] [place] [address], [facility] Center[facility] [id number] 14:51:42 Test Item Value Reference Range Interpretation Comments Case Report (test code Surgical Pathology = 104) Report Case: [id number] Authorizing Provider: Jessica Espinoza Collected: 06/12/2021 05:40 PM MD Meme Ordering Location: [address] Received: 06/12/2021 09:22 PM Service Pathologist: Ofe Luciano MD Specimen: Liver DIAGNOSIS (test code = [id number] 3220) FuZzEwMzNcZnRuYmpcdWMx IHtccnRmMVxlcGljOTYwMV naflUpFNAjgCBhD6Rixjfk FInkDI2vOS0edWuybUWmqD LtMXMyKfArl7mqc551tNGg q8bfVIHLkoebkYu3rBqrV0 7gj1B8ShbqP18mbMIaJDU0 WDTgFRFmyMCrEPOmHUD3JT QbnFKlR1auQWGaDI5aaybd UVeyDWtyUFUnaWC2UBKdcA VfE3PhJGScEPqvGJBmuzk6 BoKjEp9npEFybRdmUExtSM JkXHBsYWluXGZzMjAgTElW GPDfRFAJJ8ZDTIezhHSvVM 5rZHIYUh2DVXWRSN2DCJRw wZBsFT1xE5QAOBZSNG1IFn VvkMLmqFkvplLaLHyxs8Gs TGjwEIKjRP2bnJkvVZFiVB 8fRAHgI1eioX5jqck8RzBc RQNyBwO2OCRtbfA7Qtg6QB GsFTgwi5qay7TwUBHzSOt6 eSaqFoWlBERmz1ltgtXjSa AmSOTlOWUsNXGzkDVpX678 g3jun1moxzBqrVJ8UIHdNL M8CGnpbmSluuG1GOmafPBj YhE1PVcexwIjWXimxkPyvf IoJgt9CGIeH454YVI8zTty g8lmYSS9RYKvOJKtAeFfPf 2aiFPsB140KOMiUNNUGRFq fXb1HAUtylMdsgQlwMOPn3 49K362p7ymHBUaosAeuImZ mskpo6yfF213BWJlnLIsqy ZjIjOcYQAqgCLroOM6YQVc UW0ybhraVIkiUIvxIXDsoa X9BEKhnQPtS8FzQQZgEE5h bvjyEUT3FYljWGCiMAF2Vy EfZMOvt2Ihkxi9UyAnle4u ub91BFG3p6UdtObuZWT7YC L5BsDxBj5qbRMmGOKuDK1n UdLnzQCpJFCyrw08fXouRX mgERZ8JBHizeKwu9Yoj8vt LjPbpbMrX5suY8DzSXYdKF EzNHFqJuVfkkKdb8Rpn5Iw cDFksCp5l4gsOAKeUXCnvQ auo1owTMY5ELSfzEDaJ3zh yT0vLTFsJQ3pijxpm4wkPM qiDKpmIYAozMK8teJ9QCRc yBTfE3DhgT8zIMYfBPfvUX Rliru8SkVmUe6vqNMybAis MFxzYmtwYWdlXHBnbmNvbn RccGduZGVjXHBsYWluXHBs YWluXGYwXGZzMjRccWxcbG FuZzEwMzNcaGljaFxmMVxk WfGoELUnXBbgO2ksUxHqFw HbBgh9IATttLOoXVZwCsf7 ICZsvSIkGDHBqIuzpL7qVA XyqXvvjE0cmOF2IJVnbwKe aMLCoB9zWZKErV3sFrM9IG HmNfw5ILB7GdIvsTUdtM8= COMMENT (test code = w3ycoRVcKITseGD3AwFoPG 9186) Etv6wks3ZrpMCzxMAsHBsf qTYgruGoiw07nWM4hW18UA 7dEZWrQkE1VADmdyX4Jdy5 YRAmUVTqbBXrB836x3emg9 keijHtlDD9eRboVMZyuezm LkG5ZLdpYEGxilbnBQu6YD ugLNTktLT6BRXpsIRpW2Jb KLJxBV7tsmk4SNF4UMnjEG ZlBkF4CIHfeTHdKREgdWpn JCkyw800KEL5VkWiJWImwm JdcNvwfY8pRvDbTARQmIOp cRneqN5fl5hvSuQwGDX4iQ SeptYlZoC9uYJgDcwrwEX9 DOTpa8zaIXAbm17rmOIiql MxKRBbw0yfKrNaCRTia45p x9IdfZKrjNdiNK85KQviLQ 5nrNmagjBmXPwablL0lIT3 IGFyZSBzdHJvbmdseSBwb3 CrbVf9VWUsg1MeY3s7YUFr CIRnCU0bpOAqo2FhWQCrmu xgIN4xRX0bW2L8yANsBXLe byRJGvCiTLrjeNTip2sjb1 BtD8mnvCkdGRsqc3NpiG4c KlMiHOQhdYFms28skJw5WO LpFFDSCOWqNIT6paQidH6r lJdlwA1rPYLewe4at1ewEQ 5pbiBhcmUgbmVnYXRpdmUu AKEDdNQrzMzgdZ5tiJWyLf CzpjMyu9v6CVIbELAwi7Dl hnAdpo6pTMYbkXPere9rPP Xhe76eU19thQ3rGMXkwTUu QOZzxOZeyL7fw2nioEEqNF 4gKWTpWiZ5MtXzVzXrcENd qa25NMPoELRtQPFxgN7tsT 6jueElYFowkwNtonHhGL89 SOWap1tjxdtai9VmhnYmpa 5kWCYdfq11rBDkVUWfmrHa m5YboGGrcHBsmDRzttZboD NsdWRlZCBjbGluaWNhbGx5 LlxwYXJccGFyIFRoZSBmaW 1zvL5kdvZ2DNBkOJWsiZI4 OZIzwR3iJKWtKVKawwTaGT dhZGljaGVybGEgdmlhIFRp L3DsOZBvkd9dE3Qpz14eUO IvMjcvMjAyMSBhdCAxNDUw LlxwYXJ9 CPT Code(s) (test code t6etfRNkQIHkoNS8MpUmCC = 3357) Smi7pme4GsiBYmtPGqWOou eUFxpmSxke94nRS0rZ25MB 4wRBSdVzJ7KCCivqZ8Qfh2 WQLzHVEgeLIvJ260d8tbe5 ceqzOobPE8lKtoILQpmrve ZoU1GKkwYDSdvsqlMWl8VF omSJOrqKD1BIJiiFPbD4Vd HGHtTW0sehv8UWP6PXkqRT PyZdW7BAKyhEHpBTQybUvi LNlhl605SAM3TnAqYRZape WbwAnkhS6mItZbKZG6CBFv RUtjMXviQMKrHTw0ItYsHL ggNVxwYXJ9 CLINICAL HISTORY (test f7eroXXePJQjyYP3KqBcBE code = 3356) Uzw8ruo2HulNEkvUXsPIic aXOdetNwxz58cXQ4jS24XB 2eWRXkYcT5MTCfrwA2Gdm1 IGLvCPHihHDsB351x6upb9 fdilAhlPD4pEcgOHTirfyw LtT3CJvjAECajockEOr7YM gcRMGeuDY2TMXahPBiQ2Ob VMQoAU0nrqm7SMH3ROoeEO DlRnX9EBGtuVDbMZMgfFxe DJsoi860ALG2OrKyPXAxja AxxUtmwO9kMdZhRZUIeaka cmdlZCBsaXZlciBtYXNzXH Bhcn0= SPECIMEN SOURCE (test n4kieBMeVHBdaEK2UtYgTQ code = 3377) Hfs9enm2WufQRteTEsCOfc jRTcecWwoe60mDB9sB58IU 5uMFKcGqD5RUOilcS0Bjw3 FZXoMEViqFUoE323n2esn2 btnoKbyRP2nTnnRYNcjrbh AnY2XVbeFURuqgrzQEq2BY tjNDHfvQM3IEChvMPuE8Rd WNVyPK5vqvv2AOG4WMhfMC KzHuA9WFArdAWyKKOxwTqg VCafq177XIH3AiUxUQBgfe ZqhGpvoV6aZpNuMGCScCPb clxwYXJ9 GROSS DESCRIPTION (test r8ydiPNvXRGqgVU6JsVpBL code = 3366) Tgh5hpo9OmvUGqcDEmPVtw nTVwqeUvmw02yPP2jI87QK 5mVNAzBgJ1AFRhrwX8Mcw4 ZFBoTMYvySXrL345y8opi1 yxywSqxQJ1CGRbUAArM1Wq LI4aSNLeqFOaQ75ofWApEJ Y2MIGrKSAfzOCtAQWeDMU7 VOKsqIRfO0znWTPrPZ2sdw rtZGibTMbjBCEldPY7BBUa oALcD6AlYGIeRDzsTWCord x0BuOkNc4wrCZmuPljTCuz YXJkXHBsYWluXGZzMjBcY2 HxFNHeG4TmOFGxWJh9IWOr gM1oYx1nsHZafC2cQ7OgFW DaTFByxOYdZUJgHWLss2k2 gHO2gUCipZS8jGEpoCzaBX 7ehDTxSZ2NGfCqojJdU3Mw BONbE4UjYBayymBlIGEycS 0pi1avO4OzWH4nOJcbVQXn ZWNpbWVuIGlzIGEgdGFuIG AjsnNxxoSzUYocKRYyw2Kr rAKlFNToqNHcwnokQZ96KO NuETbsOtRtrV9trKZvS2Jp ZCY4PXExUXNjV0FlGHSqBK tzKKMgAI3raBPlLDAdUHCj IHGtDZHthPOhnJ1xkbEdcm TxtUq9KYLtYORfosVtr3Yi mWj9rJBeZWgjHRGhaA0cxM 9tFEBjLDRovsgfJBBwK1Vw zFBwOTbdOY3bOFsGGCOeBN NDUClccGFyXHBhcmRccGFy fQ== MICROSCOPIC DESCRIPTION o7twtAIhUAYljBK2NxHdZZ (test code = 3371) Ryc9kvw2OczFYvqECdDGiu aJFxspAdxw12qUY1bD66YJ 1qXBDyCrY3AJXgucV0Lme3 GLEuXPVubTTtE931j0lxd3 xtfsGfnIE6fAftNSDhiplo EgW7XVosCLTwzcbxHEe0AG rpKOVpaCJ6ULAgcEXvA2Rh OIXbUI7cwuw0SDK1OMjoYT OpAuE0OYPegMDxWNAtwMus XKvco652FOI4GgAtZYLvmo ArdLyhcQ5dGgFzOCSRYOCm w4KzWYSgmFMsgO== SPECIAL STUDIES (test m8lrsUKqDKIsg9noUDRufV code = 3376) FuZzEwMzNcZnRuYmpcdWMx BUdaquLoCWjjb3DgJ5SsTl AwMFxhbnNpXGRlZmxhbmcx YJArJHC0jvKtGLKiKYlaKC ZaJShzKn2uvONaePbgMkOt DBUrk9cfueHHlagjaMo5s4 jrOMWjJzT9yJJnNTekZ0hw kcSffBKkP2FceRYoyHt7c3 alGcSsHdT7jYWeVByrT5qt dbBsrTUeAKZsJIh2vN19JS AbcL2yqKXcPIavcpZyZmK0 FLuhKJTjDdC0COTvhMRpBK IgS8shARGtCVbcEIHkZNnp qXTiSMX0xJveo9U1cNTiuO EadOweWqGrXgPcTuZGs8Zz WLl7yVzrL2UfZVPmCrW8nY QgUGFyYWdyYXBoIEZvbnQ7 nQlysyQia41ebKPiTWSuPU WuEkKqsKgmVZHvKMECo9Mr kDtwHEI8zZy5eVtgJxzuZM D7Epw2EI8nzw21ewm2sTju IQKgmlcbUuO6DKzfJXOmft pxOHo9CBguETZkhZA0DGUg nYVjH4UdFMRiDN7qchw2DT M4TOfrTWPtEzW4XDDasLPe FGJuqQbaJNnol707FEY6Wv FvDK6yG6Ouj1L6jG0agWMq WWFitGOkTkGhTYQebp9oeO RzKAmce8HgOYJ6qhV3yELb rQPfMBOwUO17Flhyt2TkLh udm8EyX64goSY1GDgza6sq LL5fJkB4jgOrGXlcp6hcwQ 3pVhA1KTchGS3mOO3oDFSg cT5muydjNCFcCiBpzvlqYT YsmEqskyBkAw4nvXwuUED6 HYqbD9zlzY7kNqR3FCvpY9 gigC9rBVu1WQicvVC8XOAz tB4lBC7wrntko5alUJjxWS pwHAHtwsV4oaT6OFVesWZo K5CetP3uOYZyPG0rctdjt6 lkKLB0SRytHHDhOXZ6OpEi CWKav4Hlxij0AlRti9UydC YoIMxoI52rq902VECrkfRe F3fegYSkaymapAWzgtgsGW mubzU7XOSsPSVuJVjrFIRe XGZzMjJcbGFuZzEwMzNcaG ljaFxmMVxkYmNoXGYxXGxv R2cdHePoS3FxRXWhMzJtEO unDMaynUCwoEByuHO2jL0h AI5fCTPbzRBjM1HbIXKwxj KkqJTsQMA6tXEobVTjMA8f FXuvlIGtg5gqy5ZmJ8oboE howJE5YS8jJPGmJUWhCBnm y6DprC0bXwspxRPlxqtuKI xmczIyXGxhbmcxMDMzXGhp I8unAeQaXISmmNvfNIzqc9 NoXGYxXGNmMlxmczIyXGx0 cmNoXHBhclxwYXJccGxhaW 1eCgQuWlXiZwleBO2eBVNk P2olvKNwTIFpUOVrE1wvEj QpaG5jgMkcVPkuFhCaLpAn IjUHm733ve5hQEZdmTEevq MNrNGbrH6dYWjdMVniLVdp cQOySRhri4wfSVXyc0t9aC MdZKAeusXdj7myCTujxaPj CVXulOJzxFSsAVEse14hNB wpnZvnkBdbHCJvt0AmwNfr i0SmIsZrOGyow2CwO57tdY JvbCBzbGlkZXMgcnVuIGFs z59ki4kpRGAtBmX6zXFghT V8bROpdAKpc7FgfBxxAOLj o8wvSMUfuk7dmoccfUBgb5 QnkR3ttwzbXCjqzJRpiwGl ABEoi5d6yWCyPWAaNJBbSU taxVe0SKIfw002gi6dsbG1 kHLiNYJ1DKymWSMeVHDgui UgZXZhbHVhdGVkXHBsYWlu XGYxXGZzMjJcbGFuZzEwMz NcaGljaFxmMVxkYmNoXGYx MEwcV1oxIoZcX4AaJCCfCi JxlJVgU2bqlNRdFWSpBTyu XGYxXGZzMjJcbGFuZzEwMz NcaGljaFxmMVxkYmNoXGYx VJbaS0jlRjGiU0FtAHBbEa IgIFxwbGFpblxmMVxmczIy QKumjcbwPSMiVPuoW6spFa LePTNqlTyuKAxai1KmKITo BVUjZzrlegDtHXu7kcWiGK BhclxwbGFpblxmMVxmczIy FYxutmmvNJKmWGdjH5xwEu JoGPNvkOvaALulq6NdSNMa XGNmMlxmczIyIEltbXVub2 ftq4XtD0cutWgadMK2FHRx D6ceuHZaeUZ4UTM0nD2vPD clojBvXFNgo1PsXBVfJNUz FlR2kW1uWOU1FsKVjDpbXD BsYWluXGYxXGZzMjJcbGFu ZzEwMzNcaGljaFxmMVxkYm GcGHKmYFjwI1gmDnKtE1He UCHsIlDuhWrzXRteBFb9Ji xwbGFpblxmMVxmczIyXGxh pnwqADKsOJxsE7gjEdRtGB DplOxzWNesa0PaKTJvTROe MlxmczIyIHMgTWVkaWNhbC GIQZ26TGInATTbyHhohE3k kKIFQCZjnfV4t1M5TUohBP ZaBVq7ULalacNeKTJpyE1j GQVcYD2lWZr3kjNaZFIyg0 KgNF2tPJKloGCuZEM7BMGc m0WsU6Qps4EtZKDwIBAyec 0vfsPvSbCMpYNzBLXckx23 VCYyNY9eD8bdHDUjMRZvsy WztAWve3AgQAMyrFP7tKQw FL0KPoAQr67sNKZfNNIHqd XtEGRgxAliuUZ9ipX2sU0t LiBUaGUgRkRBIGhhcyBkZX Kxqc7avdFlEARkNLIqb8Vo rXBmgWHaxaMzH3Hze5TjCE Jdnt69XAqxqDNuhv46OD9i F8Icp8JtgZ9hILlqHAMdc3 KnlNGgiFFkQLExg1AkI3qz pwdlLFimrMIcmK4pZDQwJV l2BYOix6UgNKDle6LcOtLc doWpZEBwXVUmVTBzsI66ZP X0vFdlaOceknOkFQ2yHIQu dtIpAPNyCBPldF8aIRfwjh ZeTHCopxN3t3M3GXqiQZKt pmCaSnwbJCA1fkZucjW2nO LfC6kqyotlPBesWQWxz8Ar oJ8cwWFNeJTki9UvoCBmhK HCcEArBJ7curQeOT3bKHU7 ODggKENMSUEtODgpIGFzIH X5LSbtZvlhCJB9gyMlYLIy s0UuVAcvX2moR08dgUlyyP g0hXPncYczyMByeMWvWQRm mfI7w6P8TQFvt3IpmmflEX BsYWluXGYyXGZzMjJcbGFu ZzEwMzNcaGljaFxmMlxkYm GzLUEgXJzjX0osRvGfPjXi LptsDZG0tC== Gross assessment was [facility] performed at ([facility], = 2777) Department of Pathology, [address] [place] [address], Technical component was [facility] performed at ([facility], = 2778) Department of Pathology, [address] [place], [place] [id number], Professional component [facility] was performed at ([facility], code = 2779) Department of Pathology, [address] [place], [place] [address], [facility] [id number] 14:51:42 Test Item Value Reference Range Interpretation Comments Case Report (test code Surgical Pathology = 104) Report Case: [id number] Authorizing Provider: Jessica Espinoza Collected: 06/12/2021 05:40 PM MD Meme Ordering Location: [address] Received: 06/12/2021 09:22 PM Service Pathologist: Ofe Luciano MD Specimen: Liver DIAGNOSIS (test code = [id number] 3220) FuZzEwMzNcZnRuYmpcdWMx IHtccnRmMVxlcGljOTYwMV xeerVaMTRpcDSaC9Pzryxh IGogKB8hIK2npTjbtUHalV SuGSUeNnOcl9wud166vTZf v8ceZEIXvznujEc0tVzgZ4 3rb5Y1FzbzV58fiARkBYB1 AJHyGZJvyLPcHWSyHTP0AR ShjBDiA3uaBEKgPX6ngppy LLpzPOcgNCVliPO5TBXkqG QjV9GnDFHgUQliRNUbqbc8 UtKiSh5idTXkmFwyMDwvTZ JkXHBsYWluXGZzMjAgTElW EWJuYSWMV9NKZOgeaOVkXI 5jEWELBt3JAGNNLC2JOBGt fPZzEZ5mK3OUVCGTTF1LBv RhpKXjvIhrekWiVOubw5Vh VQboOEGdPC6quEdmDMYySX 4vNLOtF0mmbB4ymlw9LiFx NGWiIwO2QXRnxjR4Ive4AL MiUPwuc3man5KhREIcJDf5 kPztWfMhSBCru7snfgBuPa NtHIEwHNKoAXLveLNqE776 f1bmc8tnxeZgqZS6BHQmXY B6KQwbidSqwgA5RRfodMBg HtZ6XBachgHzLKujriVozt TqVve2LFAgF056NIQ1nLfa a7ifEBS9CNHuREYvNtHvJw 9rjDBgR755IZRnRKUADERj uOl7EDLiagWisiXkwZWEm6 63C864g6jjYEKgppTbxRvP izsek8uyV686ALOgdVYhsg UjKmJbVCWdpHAozXM1UBXh XT8msosfECthUNmcAMPtdq I9ZOOswKLeN0YsUXRpXT8j xzaeNDO7LOppVWNjBHW2Pu IwOMTre7Vlgnf4FlXote5d ts09GPO8x3IjpSyuTAU7UE C1HfKlSt1trTKpTRYoVM5g UkShhBEmYXDrpf09dNmoSH bkZCS1DJTjueUgd0Hea6dv YdKjweMdK7bkU9HpUVLiQX KhIISgEiQzrgMnt2Kfj4Ei pSXraGp3c9ylXPPtAZAfoO ehu2rkWEA2HNJrxTZuN8gz bC6oXZPcBF8iaheol8fnFI euVQkeRCWqaFU5csL9NWDn rZVxL0WdkG9zJJYiCTgqCM Pajta4ViZlIr6auSParNvg MFxzYmtwYWdlXHBnbmNvbn RccGduZGVjXHBsYWluXHBs YWluXGYwXGZzMjRccWxcbG FuZzEwMzNcaGljaFxmMVxk MzNlJMCdCTnpQ0poErXlRz OtTjf8NKYxzGHgZNGwSvr0 EBBqbEVwQYMEmGszzG7rAH VfhRdqeH6iyLF6IZVhzxMk aGQPrH6lLHHYeZ6hQbT6WS WbJed7VLO5JkYpcFClrH2= COMMENT (test code = m4bblZBgMZXxyAK9LlOqNH 2275) Wog7ryy6BaqVFtiFAqKSei nRQikcHrdk50oBQ7wT91RK 0iXCSiGcS4WVSqmeA4Crx8 BPBwGYVxoCEhK836p7rqf3 llzcAycNB4yUysQKKshgtk OxJ6ETuoGSIqabykHOc3EN hoCILzzIO6PGLjwFFjJ5Ic RENpZE0lcxj8RNB7OQstTN VrQfK5CINtoGRdMVKvsEob QEdty760ECN2IjPiFEDapg EvwOdmcM9eYqSwHTQHdOKh bTlzpT2cv4xxGfOyLTB4uL GijdIsQcB0hDJwDsvgiDR1 JSBhg4drURGus29ndONcvd AtIUUqm1cbYtPvXTQtb97n z8PfvTCusEsyYD93FZvqAS 0iaBrugpUoTPwdrlA1nVX4 IGFyZSBzdHJvbmdseSBwb3 IstIm5TOEol4TcZ4o4GIVo ICNxIK9onGBln6XgCZQwrj fiIF0rSV2tK2H4aWAiXCPi evTIHjWdEVsvqDKxn1gck7 ZuO5ganWlhKOvmg5XiaH0e QgGkXKXxsYUca13yeVh1ZJ NfTOAIMWMkEEQ7cdVwrW9p xYlmpW5cUCMecf7dv2qmOX 5pbiBhcmUgbmVnYXRpdmUu OURFcWYshTvvuA5xwQWxLg JwzoIrg6i2ZZEcDRKaz5Ob izNmcv2pWDOcaSPahu0vNC Mse21vQ39ldT9zVLQwgDYx DIZekTFbgA4tm9wpbIIhZI 6gGIZjIcX5SxStZeGcuOEe vm93OYLtZWXkQICxdH9bxC 2tywOsKDlcgvFpyeArDP89 GYQvq0cchftvo0WfizRmtm 8sUOMxor70qMMkFLNnlwJq n2NdgXRotLJgcJGmidXmkB NsdWRlZCBjbGluaWNhbGx5 LlxwYXJccGFyIFRoZSBmaW 4oxS8yomP6POSxZFUbbOJ9 QGLxbB4mFLXfNEJrjkAoZY dhZGljaGVybGEgdmlhIFRp V0DvSENtcj4nC4Qww83tDI IvMjcvMjAyMSBhdCAxNDUw LlxwYXJ9 CPT Code(s) (test code r9sswGAlWDJafHX0SrJnKH = 3357) Kqb8lbo9LlrDHxcYJgKGwv zCBagfEbej36sTP7lG69UG 1sMXGsEhQ2KOAvuxJ3Zfy4 DVSdKMUluGHfU764x0mfa4 yvgwTkpLA2dOtqPKKjhxma YmR3SQyiLMFdlcgqKUv3DV huGTZwrGQ4TEXdaSUvT2Bm MMWvRR8kmhj2KDB9VHuxCG AoXkC8NNLbgPPyWDCpwEqd MAegl121GIM1IvTlOIPpcr ZxlYpbzP6nViIfJUX3UYGl ONamXEeoBWXgSLp5WwRjDO ggNVxwYXJ9 CLINICAL HISTORY (test a3dhkYGcXSUwhRV5TaXhII code = 3356) Era0sry8KxvWEpiWIzTQxr lVPoafVdjp80bWC1rN54FL 8iZLEgFlY7JMZunmK9Tif8 VYRsLGKizELoJ238l8bmx6 jsvkTshVP5vRbkFXHwdtms WeG5QZzpOTEoisihZVz3QB cmAEChiUZ1XZPybDLfG9Zj SLLnOP4sifn0DQF1BWoqWD JdOjB9INOmhGRdIXRijVed TCpwf097XBO9BvVyIDDwar FmyDjdmW4lGnSsDKEEonrm cmdlZCBsaXZlciBtYXNzXH Bhcn0= SPECIMEN SOURCE (test j5jbmYQlKIKxzWE7SmCrPM code = 3377) Osa6opw1KckXVabPFaFPtg yTYmduUcbt92xEG9zB91NH 7sGNUiYyZ2HSGdpeQ4Uqq0 HSMhENPcgULqE181f4hgr3 gjexJnjYT5nXfuSHNjslnc SqP2VHkhQZJxkfecPZt7ZW bvTTOgfOI4RVKxgNNsZ2Ra GHBgMB5jkaf6LKV6TRdhZZ ZnPpJ3RQSceGNoWASbiTvz QKkad177MOT3VaKsATNgim VrfMuemT6hLhEmYLGQjTBt clxwYXJ9 GROSS DESCRIPTION (test h9lsiIMsHCHnaXP6NjGdWS code = 3366) Zet6uvc2NdjVUaeHOqCGjh lHRxvfTnid85cFN2tZ67VB 1iOJNpZaV9QEYsdcM4Cya4 YWCuWCYdtCLpC187q0gwt7 zommYkdBD4MJDhJAXnD1Cf TL1hVOClwDNaC62yxQCxSD J9DIVuOJGohXRmIJXgTJU7 VVOhxNIvM1nrULJjGC0fpf kjSSdqERpbGFLgdWF8RTIe iVIhP8SdNLFiTKssWPKgtw b5ZiPlVt1wsCTxcJvuONfn YXJkXHBsYWluXGZzMjBcY2 RsHXXhU0ZzEWSeAAg0ZZWg mC7dUp8rpREixN1cX5QcUB JfAVSopOJdKKLhKRQwm4d5 vZT2hSCnbUR7mTYfxTkqTV 6rzFZbHP3HJaTakeSsR0Gl MAUnF5LvVCrcqfXyXAUzpU 7yh5mjU0ImBD1oUUeaRRNz ZWNpbWVuIGlzIGEgdGFuIG BzemUaxaJrABoxTCIbm7Ds yKSiXTPulGHhdqprTW12PV LnFHmxUuAffY4saOEdP7Yo MKH1DSDmXSTeQ0ZaQGFfKV wfKEYdTI1nbJWdMUTyHCIj HAGnPIGiaUJlaH6akvQrft PnlJk2ELCiNDQjasYdk5Dl gIj3oQQcKClaYUMmbZ3uaT 3kJMQbEJGmhdovMBYeM0Ze nNQoSKjqMA3uGYeCGULsQI NDUClccGFyXHBhcmRccGFy fQ== MICROSCOPIC DESCRIPTION w1epdRVmXNBxtCP5FsNoAQ (test code = 3371) Vdn3yow3ArpUYblEKsTRez mTBapbHuin44gPX9nG53ZP 2zUQPpCjB3HJGnpnB9Rgl3 KBLmBNFakHUsM867a5vjd3 pwyxIfaHN3hCwuZHTkrtnl HnW9YImbKWNfrpqcGDd7IA tzBLTnjFH3MDBxbBJrI6Bt JVKaEE0ncxz4EGL5HBanMH FjZmQ0EDDulSUePVIoqWjl PEggx869AVE9McPsRKKtge UicDrrtJ8wPsPmSNWFNPZb k0UqIOPjsKYioL== SPECIAL STUDIES (test o6jhjVLkHLDyz4blKSZgtP code = 9166) FuZzEwMzNcZnRuYmpcdWMx CFvisbXaXLzjb1YrJ5HzMc AwMFxhbnNpXGRlZmxhbmcx HICsAFA6qsJnFCJsFPvjVQ GcLHnaOf0uaQWuhLrvUpRh ELPkg6isepQRwnwtoDt0t7 ddPYKoPlD1yCIeIZjoT1na tuYgrHUaZ3DcbHZxpXx8i8 vvJlNwXfV6iOQxONirY5qi ayNnnDJzDAIcCBk0oT04NQ BzaT6wsBDmMCdjorClJdV9 UJdgPUQoZaD0RJRvxBZhLQ ZhX7ufLPEkMYldCTYhIAtj rQJwOPI6fVnjs2O5yQPfcD PanLucSkNkUiEnXyLMk0My DNh8rQshI2UjFUMgJrV5oX QgUGFyYWdyYXBoIEZvbnQ7 mUagzhHez97yuZGmFKSuEX WfEwQqtUbqFYDvYKKAv3Gj hRyjKEO5rZs7aJebJurlUD K4Vmk1UF4pgg52stp5qMhu CJVmuedrMmK6CGjhMVBjwi iaTQp8YYnkFNFzkLI4QESw jXZfI9DdXBWhDH3souu3EX H0CEkhBJLtIqO1ASAmsYHk XOXvqJsaRAtxz896YAK3Jp MrZI6fN3Lng1M9pX5sjMQq KFLfcXGnDzOeBCWsia4fkA RlHNpfx8KgRVJ3fiX5pJEw uCWdTMFeEH38Cjegg6VwGv hus7WxE10qeRG7VSwkl8xb TK5gCsV4fdMeMPyel5tujC 7cPnW5GQlvVC7dOE7mQXQp cP3kfadeWXEdZwTzlkgyDM VlcSqzvbRmEx3ngYwaOLS0 MXnnV8pzrU8oQyP9UWncX5 omnU5tARa0YFazeBS0VDDb iI1gSP0pcmeqh7xmAMtnUG xrWZXrqvU7vxA3GZHuwAMf L6ZsqN2dNXFeWE4nkbbxz9 auWJD0XWoiMADwZKI9EeAz BGRxq3Enxtt9IjLbz8YogW WaPPeiP97oi430CNSavxTw B4nbrDZbplqpjELbgpyjPZ ldpsC9LUFmKZRuAGbkYJKb XGZzMjJcbGFuZzEwMzNcaG ljaFxmMVxkYmNoXGYxXGxv G1tmTmGuU4JlKUXcSkDpFB pvEZdlrSLsqQBvkQL0fL1h UJ7vRSSssHPyX8OoXIVwzi QniZMtCSR3wZCnmLOhUF5q RMaldVHho3hbt0IrU5kbbH stvHH0RE1bRDHeUIHhARpk v8XqkA5kKdcitVHqgukcAG xmczIyXGxhbmcxMDMzXGhp M7iwEwNnYYEduFgxRAnbe3 NoXGYxXGNmMlxmczIyXGx0 cmNoXHBhclxwYXJccGxhaW 8mTzUgPnRbBjmhKF1hPEXc W1xjlQJlOZBmBCDwM5anSj JnwN8qdUrqCBzhWtLfGwXr CzMCw048xw9cIPVspBRuds IQlDWuxQ5dOSuhBDioKMwq aVAlLEyvi9xrYIOtx1e3tQ XqYOTqqnUhy5boRLluugQx KWStmKGuvQEmNAEyx65wMD vnlXgaiUnzMJVuu8GwgDpk h6HoOjEvDWmcx2YmP75hqT JvbCBzbGlkZXMgcnVuIGFs y71ys9roUHBgCeJ3eBRcmB E0iXQvuMBpe3YcqJazLREq v1whGGSeam9vzlkamGWud7 KfzZ3lfpssLDwffDCkiwSy OJVgo6v9gTRjAIUbTRDsBI aovFz9SNFpp838go0ninH4 sTIxEPN3DTghIUDgFWGehv UgZXZhbHVhdGVkXHBsYWlu XGYxXGZzMjJcbGFuZzEwMz NcaGljaFxmMVxkYmNoXGYx UZrhW3kjKgKsY1DgPFIxKp NmiWTwQ2lusDEoFZUkASrs XGYxXGZzMjJcbGFuZzEwMz NcaGljaFxmMVxkYmNoXGYx IYadW1anJuAeX8OlBONxTq IgIFxwbGFpblxmMVxmczIy DYgdtxsjFXXtRTahK7kuLk SoAGLbkFkbEYjol8QsTUGc GVKoMjxdgcLoZUt1shOzLE BhclxwbGFpblxmMVxmczIy VQsbojfzKDGhHYalN3hrVl BtWBBgdLxrLUojp7DvNPJz XGNmMlxmczIyIEltbXVub2 xax7UtX3psdMzatGB6OHPh R7bjjTMaiML1RGW1iS4yYJ idypGqFBAkh7EbOTKxNUAq DjQ2aI4xNNS5GrBHrVqnPB BsYWluXGYxXGZzMjJcbGFu ZzEwMzNcaGljaFxmMVxkYm HvPOTqUJawT9jaHfQyC1Rh LGGeNbCicRgeXGjhOJz2Ic xwbGFpblxmMVxmczIyXGxh zxsfRZXgXOqjC7woIaOeGG ZsxUoyCMueo8HlKMHyMQVk MlxmczIyIHMgTWVkaWNhbC KVCF65XRHrRMMybYacbQ8d qJFXROJqabL7m4R6IYehJO LzXFz8GVdoceGlHIYogW2x YMUiWW7wMIu3kqTrWHTun7 BrIB7aEXKzyBTiZDE4LKZv b4LtY9Lcu7OmOHThVVVqxx 3firKsYuDMuDVcRDLgjo44 HBKzAJ4nP1joFDLrTGFcwi BpcAWna7MbLKEikAD8hIHx NX4MVeLCk59gNOOvXSGZve KnGPHcdJynvSA6pwR9iF5e LiBUaGUgRkRBIGhhcyBkZX Vsve8zwdMaKXVmOXOhl9Od jZXhmXGxfdEyS9Pwn9VoYU Qrrh30VQbbpMZfnn75RU1n V3Itf0ZgpD9bZDqbYHGyh4 OyyXDsiGVwMRKks7PmV0kj ylpbCOlosIJgbB1rOLLiUO i7JMLhw5MnAXGtr7BiUrKb guOlCCHdOCGoPAMccZ93PL J8rZuytMrrtvWmTM3hNQPd glQgXHQwDCCyfC1iFOioyf YdVJTvggT8i9Z9YKwcKDNj hmRyAnfkWVZ4qmAkstL4vX DvZ7mckcsyTLclZFVew6Pn hD4bcDHGlTIef6YdaFSkkO ORaSUzIO9vqqBlPW3zTXW9 ODggKENMSUEtODgpIGFzIH X1JPfaXtwkOAV5xxMdPVJl e0GxRSoeY5gcS49zzAgekP e4xOAxiJxzbQXmdCHiMUAv svG7f0A7KFBnp2GuljvpOX BsYWluXGYyXGZzMjJcbGFu ZzEwMzNcaGljaFxmMlxkYm QtTCLjWHnrU4fqHoObUuWt LqkrXPW4oJ== Gross assessment was [facility] performed at ([facility], = 2777) Department of Pathology, [address] [place] [address], Technical component was [facility] performed at ([facility], = 2778) Department of Pathology, [address] [place], [place] [id number], Professional component [facility] was performed at ([facility], code = 2779) Department of Pathology, [address] [place], [place] [id number], [facility] [id number] 14:51:42 Test Item Value Reference Range Interpretation Comments Case Report (test code Surgical Pathology = 104) Report Case: [id number] Authorizing Provider: Jessica Espinoza Collected: 06/12/2021 05:40 PM MD Meme Ordering Location: [address] Received: 06/12/2021 09:22 PM Service Pathologist: Ofe Luciano MD Specimen: Liver DIAGNOSIS (test code = [id number] 3220) FuZzEwMzNcZnRuYmpcdWMx IHtccnRmMVxlcGljOTYwMV wqihXdMHNqiMOoG9Mwtyef MLibSK5pAL1tzBwbrYQxpD LdZUIhOtTlw4pmi466kMLz o8pmARJBklyyvZl8lOihD1 4cc5G2CegsX97thRWlQRD0 PIAtTEGbrJGlPUYlCFR7FE UhqYJdY8tvGPPrVJ5bplvc THraCOmiLWHfbPV0AAChmA HiA7XdXVZhTZpeWEVpwxi7 UbTjCz7kpWMkwSfrHZpoKB JkXHBsYWluXGZzMjAgTElW UOHpOEKCG5FWTGguuIRoQZ 3cQKHZYw0HIMBLUN0XKQMo pTQzBN0mO9XLUAZOSI2CHh HjnPBqtTspwvYgGEvnz3Pl NHioITTyQC6ufZrcLHZsVW 9nGUEeV3ryeX9pnul2RbJd ZSOoRhA5CYJvtyS0Ejp4UL KxBWwle0szy8DtUQBlEMt0 jHgdVyMbNHYwr2ctztZdBo UnSNGfLKRbWSEbeKXrF230 a9sfw4mbhrExfQH7ZIIxHO Y2MZxawmTqxuQ9SNrypYYb YzV1VPtrzvOsIYdunmXrwx FrJzq5PAGlL549NQT0oOxf u9gkQZC7AZWeNVMbJpVlDo 0xtOQeJ865JFEzMKOCKROy lCs5YDUunrQjasJppLFWk5 41E187r4joROGwicLurPpC wzcln3klW050KNVdnHXlsd HaQaTkYBNzkFZwfWO3KPZz TK5gwlnyBPcrOCzqATRztr P1ZQUfzNCdM2YxDTTuTD4f useqLHR7MXesCXHtQZM3Mc QoNYYve5Hpblf2OrSlaz4a rs81OLK2s7ZpmPdbNVP2CV R4CiSzXo0nzUWhIBNvUQ9b XiZnjEDoAJOoot74tKhkCA bcCHR5GMHrrpSrh1Lzo2ku ZcGpacZzF5avF0ZtRGMcHL OlAGVrYjGnvpGqm4Pcz6Ua zUQpbQw7k3rhYZUkIGVgfA tns7zmMJS5TMGztBQjC4pj yZ2sDXGaSJ7csmyyf9wbBU jyGPduZMYlhQL2qrO3WTRf nAGmW3QyrR5oLTMvIDaqQA Uutjm2TaDnLj0oyIJpyEbl MFxzYmtwYWdlXHBnbmNvbn RccGduZGVjXHBsYWluXHBs YWluXGYwXGZzMjRccWxcbG FuZzEwMzNcaGljaFxmMVxk JpXhWKTwJBqyX5dqXdTaRt PoVoh2WCRqnTPbUXHsNqn3 WEGaeQQnDMHCtQpweH0yBG JjaKwdsP2egFQ6FIEbjvJj eGDRhP0aVWQUhA5pHaM1KW QmPbq8LTK4OuRtvTCryQ4= COMMENT (test code = [id number] 3699) Srr8kmz3UirFNmjWGoDMik zWDmctLltz87kFZ6jZ59IY 4mGGBkPwI2OSFemmM5Qlx1 MYQyYXEwoAPcA486m6ckh0 tfzwLrfPY8bIbvCJCdwcrr OhS0AWpiKNVnhignBIa8WT wsNEFwmOE5JMUyaSRbO3Do ICTbEW9wzrr0TDK3PJkvYH ZbLdV4OCVvtSYkYIUrrYej ASepc250UAP0FvEuFEUjel KzuCtorN5gYvWvWQMMfBFt nTbslV1go1clJqXoLDZ1pY ZduzKwVpE5vWCcOwjjfBC3 YZVik1gxXWVlw41cqRFkrq QxZXHit3ebVvSwINWhx55c v8HfqFJwnVgyJD52PEmkXH 7gkXettyErGEilqlB0bZH8 IGFyZSBzdHJvbmdseSBwb3 JizRk7WABhc9RxE0k5UDYw HWUaWU1qbCHng0EfQUSurn rmGN7nTU6pL9F1bLTeYVHi ltEWIpZyMOuhfOUcg8vhv6 GkA6srtXnlRWoaz3MyrJ3v OvGkUIZiqATgm38ssVn4GC OwYUMXLSZvSME4pwKhpE6s dKqbzS7wIOXkeo6ca5olYF 5pbiBhcmUgbmVnYXRpdmUu NLNGuYPkrQpgiD1rpFOiWm BlznKqp8z4EOFiBZPzw5Dh fkOlvg9xOYXkeBSdqs0cRG Dfy68bR03qaX0eRKBalHBb BOXkkZRviD7uw8vieKYmEL 3nMCXpRlS3XvRnKsJnjDIl by00OALtFYNpESJwgQ0prC 2kteHsZJbqfxMflaRqSQ70 EQIue9iduqebc7WounVpni 7kBJLsdf76wHPcARYsozLj m9GbzWCpbNSwrKQxoqQilP NsdWRlZCBjbGluaWNhbGx5 LlxwYXJccGFyIFRoZSBmaW 7aaJ0wykU2WKIdQBScvQF7 KALrpU2sMBZtJWPyoqBeIK dhZGljaGVybGEgdmlhIFRp C9HwIQMmoi3cM5Hmz64mXY IvMjcvMjAyMSBhdCAxNDUw LlxwYXJ9 CPT Code(s) (test code t1lfbZHsYSGtpHH0KmBjNE = 3357) Quq3wli0JqcFJbjVDtPNbw lZVtbhJmxe21aUR3aC41AC 5nUMKoTxL9GFZwyrT2Guc6 OXGmTNPuyYBqO693c3yjy3 gkfmYnwLW9kSdaZUHmklfm ToO3JWurMMZhyezoTKb4RE fnVXRrhJG1KIWbvKPvW5Nw FMPeVI9qnpc9DOM1CEdrIP ZmNmY3BHNegIXhLFXbhDzh HWqvx654DOD8SqMdXKWtyx MleAkdvN1bYzGzJLY7AEMb RIliDGylBAQfOFh0OuIvZK ggNVxwYXJ9 CLINICAL HISTORY (test k7ncdIKsYXPxcST0AbZsGK code = 3356) Ary3bvt5AmgVRejPVsNUmy tNKuhaYevn40bYU3jD72RH 9tACDcXlF5JQVpmwV1Ufv7 DPCeXRTqfENwI496u9yyz8 djjsRkmVC0vOowTLDennla RxN1EKacCFXkdwywLTb1UW uyCOGxcKB3TECvoCHoI3Ag MLMgYK5khly3OSJ0UWbeTZ AhYxH2QTBzoQLsICUvsMxw PWmfh460IPN6JsTnSBDclg MwaByklD0vDzCgEMEMlkec cmdlZCBsaXZlciBtYXNzXH Bhcn0= SPECIMEN SOURCE (test h0jepRNlPDUxvEC8MtGxBX code = 3377) Wbd4fwv1JyzVEfpZDxHPas nRKntyRkuc76rYL7zQ62OW 5vJQTtKsO6JJVaqvU2Vqy0 RFQrHOAhuDPvF709w0npc4 qvjeHyeVK3rYhlPOZajkzm JoL3DJfpVIKpegczVYo6RW xcCFDlnBQ6DTIziMOrS8Km LBMeED8mlit2KMB2EHchJG IvZhN7NJZoaZMmRTHnvSyg KVvxd198LCJ9TxShSORosd WkeFsmrF4qQuGkCZPZtFGz clxwYXJ9 GROSS DESCRIPTION (test u0bunKXdCSMxiMP3IzUvSD code = 3366) Smt9xes2FmoMSdvJKeRMts cGVywpKqbn36nRH1wS10XZ 4aPOLzRmC9YSHqpqO4Edn2 XPLrSLUgnLYgX637o9csd5 vivwVcsIN5EXUgUFNkO3Lo WC4kGDCiaFCeL45qkTUdMY P8PQBiWBSteQYoJOVeKGC1 NIDduRJkY7eaPQKoJV2zif puXYfsAPbxUFUrqRD8DAJi zFUkL2IjQUUuTPkkTGJjtu s9GhPuLd6pcPQyvBqeXHtf YXJkXHBsYWluXGZzMjBcY2 UsHPRrZ6AcXHGiLYl0LCDh sC2kJv7wgUBuxM9yA9CaNL QuLUUelROjWCAqIVYda1p6 eQP6hJZsiKH2jMPnjJavCV 7zaKEkIZ9SJwCqkjUlG0Fd XFJoZ6KyUOzgwsBgZIHhjW 1mw7agI7TfDS9sRVogQZBp ZWNpbWVuIGlzIGEgdGFuIG CrgsWxpuXaTZkfUFFwx3Db mIDaIZJhaDXoeqaqNF50RR OdICnmRzPlbF8zoDUcF2Kd GBB8KWLeFBFaW8VyWEAaHV gcDTKuWJ9toIHoSEYeYFTv DHEbINCenZQnhW6ynbSedg IcoRd3VQReRPQekeYtk6Xa tYq8uUMhVNovNDMyoU7orS 3lRIQpQMMzpmzuMZSuT1Pn sYSuCFoiSW8oDXoDXSXdQH NDUClccGFyXHBhcmRccGFy fQ== MICROSCOPIC DESCRIPTION e3fvuRGyDBTjrCQ0GmPtTL (test code = 3371) Xjf8vlc3BulEBnjNTrCBvv lQEnesBnmc79hBY4qI54RS 3qITBsYkV3DGNxreI4Uew3 HKCfZGOdqHMcO751u0xzn4 tmlmKqtVS9wEerAPHcughr FtB0ITeoRJLmmbqwBIg2SD guKAMniOT6UEDeuWOeP8Gj CNUoFT6nonb6VLW4ZIdgJY IoTqF7FJBaiKYxZIHriSdy AKxbo318USP0DvBeNNOvow TygSpdbK6jXxZtDVTTOWOn c8JaDGGwjVYzhX== SPECIAL STUDIES (test k1qxpFIaHXIuz6tqWZWweG code = 3376) FuZzEwMzNcZnRuYmpcdWMx CXolzoVdPNbki7PcG7KdWp AwMFxhbnNpXGRlZmxhbmcx ONLrYVF8beEySBIwTFmgLB KiJFqeMw4qcMScxRouLaXe VFClc9ytgaSHrzckiCp4e7 jiREMgVwL7hCXxAGzfI0aj bqBfsDLzD1LzoCBwkXn5x1 dkCkXjVxB1jKNbDXcjE6ez qpMntWIkXXRaTVs5xL04IR HviM8ujTXhHOocilLtDwZ8 GKlhQXKbSvP9BOCeuOIeNF CjM5osXNXkHXrqWCIkOSmr cGQxGNM7pOfxm4V8tGXhnL BuwOhsFgKeNvBnVpAXp3Nf NDw9rTzgK1UdRUEgRmE9kB QgUGFyYWdyYXBoIEZvbnQ7 oLwhinQgw07oyQKkWVPsIG EyRuZbcXucMTZeBCHCf9Ho gBadGKL1xUp2sCbnHdryQC I6Bys6QI8xwh52gqj9iLjh BZZnhwbuBrE8ZApbRTYsdp ldFCp2FWgqAFRlsTL1DRFp zTZzL0RhKTQcTR0euwf5UA I3TTjtZSMtKwA9WFAkgLXf FZLysZmtUEuth413CCL7Pb RkLI3fS9Ahn9Q6wG0gxBCs CLZzoVUtYsQzSVQoez8srH WgFDadc6VdZEA4anH1iVGj aXIbXXMySM26Cnldb3QjSt pyf2GbR38saCE7YYlyk4ie RW5kZwV6lqJiOWlfv4krdJ 0eMzQ5YIlkQJ6uOL8iSGEh cK3sdaanYDTcXjFdcnhiSO TswWbmvhVsSb5quYzlKNF7 DFiyL3ucuQ0pXsB0URupE5 mbeG8sFTt7CYqtqSU5LJKq bD0kDS3wjppkr9ldDZrgGA amIABamkW8ouG4APAemTQa C4BplQ3cICDfZS5uvodhi1 rpVCG2XIylWHAsBUF7JdAe NEVfe4Hgxkw2BxXam8WdqN NlIHumT73yx557NENvupRb Q3pzuTVdpufwtOIydrmaCY xxcmE1NPWqZXZtUDpzHZKz XGZzMjJcbGFuZzEwMzNcaG ljaFxmMVxkYmNoXGYxXGxv L2zzYfNmO2BrIPSbUeXdDS cvOYkkoUTcgSItkBH8oI1a PP7qTWJoxSZgZ9NlILPhjk YwmKQoIDG2dQAmaIZqXN2y KPssbJMcw4skj7FlB9clvY zuhOK4YJ5dAMKcINWqZKcd a1OxuC4pUumygVGrrdgwLN xmczIyXGxhbmcxMDMzXGhp G5wxNwMyZQCtnDtrRVwga0 NoXGYxXGNmMlxmczIyXGx0 cmNoXHBhclxwYXJccGxhaW 3aPgAtNdMfRhsyOJ4uQPQm J5wkmYQeLKDnSGDfM9lpIl PkeU4ohVmjIUapAwJmCcCv VgAFp973yq8tBFNusBFxrw MDnOKovE7eOFjkRDvfVMmc qERfVZpgi2nhMEHyv2d3bN QzQEOkmzQzy5adCMkarmPi PQPulSKnxQCpBUQfa46sJY ehbLlwiGkpVLXfr2TwhAfm i4NqDiInBRlxt0VhN10ygG JvbCBzbGlkZXMgcnVuIGFs r27uu8ahVIXoGjQ6uPXkqD O6aFCusOIgj3AtvEquRFCg f4seLTJjuh4tpgivgBMpd5 HhoY3vsjchFStosOQtznLr YXGuz5f7oYHePOAaQFTjGW oryNm6IQTbm622jc0wwvN4 uTOxOWN1CQxcPAZfGGJpea UgZXZhbHVhdGVkXHBsYWlu XGYxXGZzMjJcbGFuZzEwMz NcaGljaFxmMVxkYmNoXGYx FGytG6opNsZfN7RtAMXsUd GucCFxT8bnbMVtIROqNLyn XGYxXGZzMjJcbGFuZzEwMz NcaGljaFxmMVxkYmNoXGYx GHdxC2zwGcZnW9IpXGUyMx IgIFxwbGFpblxmMVxmczIy CZrcnettYCJhRJttR5wvIr RhMZHzqZokZSvzw3YkRVEo EVEnSbqlomMnXFg8cbOcFK BhclxwbGFpblxmMVxmczIy HAduiqejMTXwCTxgL6eyZt MyFCHbvMnaWUlct2OaVZAt XGNmMlxmczIyIEltbXVub2 cyi9OmP0hrbNjaiUX1ORSt Z3xspDZmyUK8WZS5dC5wWT qruoJcXXPgq3CiOOSnVUKf FpY4pM6tZMV2YvMSfMkdYQ BsYWluXGYxXGZzMjJcbGFu ZzEwMzNcaGljaFxmMVxkYm DnZLAjIQgcJ8pxJdIoT1Kg FXHiNcHxxYxsQQddVOg8Kw xwbGFpblxmMVxmczIyXGxh yhvtBICnGCbbB3oxLeBuBD PgzQnyISqgi0JuWFIlLWAl MlxmczIyIHMgTWVkaWNhbC PXTA06WMUtOGQqbOaanG5a bSTYUFUmjyY5m4D3HEalGD YiIVh1BInkpwBwLFIydF2m OVTnTV9eHBl4rxXsLQRbn1 FxJF0rYWBfoWInNDN9FMLe f5KnY7Dnx1IcGBRfSHSjzo 9dduDwMbUYiUKcCOTqie31 WZAyEX4iN9lvNBBpLIThip GqsSOzd4RnRWFiiHU0nSAc DP7LXiNHd99yAPUnGHJSfp QtQCWacPjeiXN4fuF7fB0f LiBUaGUgRkRBIGhhcyBkZX Amdx7zplKrVVNsMWEgu3Yd xDHvtWXthpUdU3Ewm1DdLG Bvlt23ILzhpZFqul38US3l K2Zap2OeuB0iXWuqVANgc8 DpzZNmuXInWSOri2OzC3gv wfvmDHuucWOuoP1sWDMeWI o9KRClq2JwXYVol2GkEiZu nqGrDMRjMZJpNGMlqC95AB E2gSquzAqslvIhUJ6pWRFa xtTqDMPuJTNpnK0wHRdiao SdOJOllrE9p5J2BHgjKGSf vvSrEyxnLPK5ovAsgkB9lH YiX7vyosiaIEigRNXfi0Wy rJ2ahWJSfWJss2AueMVoqZ TJyDLbEO6pqrZsLG8nSBD7 ODggKENMSUEtODgpIGFzIH K2ASspBvohHQP7aqHzBVCy h4FwSRnzK2muF79tyCxfnV v9tMMxuPnbtILjfQDkXIDe llZ5l2M7PRBqb6GbidqlJT BsYWluXGYyXGZzMjJcbGFu ZzEwMzNcaGljaFxmMlxkYm JgYWQnMHboG8ibOoWhEeSp FinqMXE5zY== Gross assessment was [facility] performed at ([facility], = 2777) Department of Pathology, [address] [place] [address], Technical component was [facility] performed at ([facility], = 2778) Department of Pathology, [address] [place] [id number], Professional component [facility] was performed at ([facility], code = 2779) Department of Pathology, [address] [place] [address], [facility] Center[facility] [id number] 14:51:42 Test Item Value Reference Range Interpretation Comments Case Report (test code Surgical Pathology = 104) Report Case: [id number] Authorizing Provider: Jessica Espinoza Collected: 06/12/2021 05:40 PM MD Meme Ordering Location: [address] Received: 06/12/2021 09:22 PM Service Pathologist: Ofe Luciano MD Specimen: Liver DIAGNOSIS (test code = [id number] 3220) FuZzEwMzNcZnRuYmpcdWMx IHtccnRmMVxlcGljOTYwMV caffUeFRCfbPCcW3Njakmi DBohSS0cKI4clJlzyLOyvN OhJTBcQnUyh1yps896kAPu e5xeFLGOkuoqmKf9iKgwU5 4to7H3DqsyT24wxFCfTOV2 UHKrYLLiiDWfLULhSUM3GH GeaMQaY2tjTYJbFG8chept ZLivWXnbIVCvsED6WZZhlH OiX8ZyAMRdFOmuWQUuonz9 PkRpUx3iuGVzjJaeJEdeBD JkXHBsYWluXGZzMjAgTElW TTPgXNWXQ5YBWYloiTUgIS 1qPITSQj0KJFAJON1XQZQl xWBiHJ9eD0IZQIBNXJ5LKl CzoFWdqThaecTtEZtbc6Ig ZTwnRWDtXN5vsQyxIHBlIN 2wXGNtU6kxnS5iwha5WtBl LNKpPcR1FEMewwY2Xoe4QJ AkSVltu9obe2TlLCIkZKq5 zAtiDrJwONYcv6wjyaRdSu FiZRVjVRKfNUNtySSbZ185 u4djq4qpyeZjuVT4LXDwEM X1LWgcyiGgpzH1PYfdiISd PgY9TAbfvaLcAWftgkGbwc UtWvr3JPCeT374KTR0yTyl m2unMHN7BAYmFHJdJgKxZl 8ojYCmC679LZJsFSVPEWVn iUk7ZQAspyLyngMloZWBk0 32M269t4iwFTOlyvErxKiL edjet5etW454VQQjyWAube QsFmSqPYPbzLBafVI5AOUl LV6pbqhaHBfyVMujZGTvir M6UIPynAByH7ZqEAXhDI8y dwdlSQJ5ANcfIEQmQRP1Pz ZgQOZkp0Tccbh1OvHtqk7x yz94WHI1c8GogUyyVIM4HU O4CiCtNg9mtMOrTGXbVA9y GrJpmYGfCAKtfu91nHthPP gtKQE9URQqczKwd0Bxc8ug KlKltsSnH0rhU5LzXQWoMV SfOIQeJeZearQjb1Waj7Zd yYWukYb0e3sjYKRbWOTucW uzl2ekXME7XIHqtUOkR1ar bJ9hDWJbKG8wbhhev2guJW csODemHECgoGM5tcV3OCWc wUKyQ1MzgH2hWDTvCSneUA Dyyxh4NiQhQy6uaUHcpZyr MFxzYmtwYWdlXHBnbmNvbn RccGduZGVjXHBsYWluXHBs YWluXGYwXGZzMjRccWxcbG FuZzEwMzNcaGljaFxmMVxk YpFlBMJrTKviD5nvIaEfRu MvZqc3WTMfwXZsQYGaGlh2 KGOjcDSjTQOPrCfomA2bKA JocFbtwP3hvGB6PGQqafWd mWWHkH7rOWAGjU2dYgM4NN MvBhr3SLX0LmHvoTVmrF0= COMMENT (test code = f8rvfJMrIQTjaVT4PjIkCE 2302) Neo7rjt3YzuSQjgTThEHbe xSOfaxNgwc12bPN4lR09MA 6mAJDaKmY2XMLceeA3Eou7 RDAzIYOmpDSqE800f3scs6 lyboYwhUK9cCeoLXAyqcmd KdA6FKlvKQVvvgfeVEd0RJ wySRCgnGC2NZOwrIIdH1Qu EGGyUP9autk1UKR5FHkbXM DnSrE0TJXiwAVzUSRjuTbi MAuif497FRO7UsJaBPXxgo HrpLcmiL9hBcXnKRXKpDAa jSbxnT4oa3acDeChBVS2dF AepxLfGxB3gHMcPtyaqPY8 LUYdj5jgRVSaa68abMHybf YxKCShw8evAkVcXPAsa98r i5FocIWvhWusSH76KBqhGI 1wsKaxohVlPYzdqfO4eFD3 IGFyZSBzdHJvbmdseSBwb3 JmsWw4VOHdi6RmN1w5LPCx AZCbNT3ieKWdh6SgXVNwip cpYL0bSS1eZ4F0aPXtIHGg xcFLMrQiAAyfqAIki7bbk7 SvN6gzaJmhWBzud5TogU0f XeQlNTGmkEBku94hxBg3YK MbWXKDHRLiYXE4qfJmoV3c lZanbG4lMUZtru7er6asHB 5pbiBhcmUgbmVnYXRpdmUu VNXOnOUqsRsakF2okYQhJc CdoiPzn5w7UEFjGJTfc4Gz rpCbit6iCFZlyZVaxm3dOR Vpf86wM49fhP8jADAhxACd IKBgzYMkaJ0tn5hinQJgIO 1pWBWlYpJ6GlRgIsSgbTPd xs40AFWzAIEkQXCjoD4tuJ 1ghcThZJozbvNhcpUgUU18 KWKzu7nhmqnxp8DavkLgib 4oQXFipl37xMRlYUSbmsZj l3QmzNDwlREgpJCtvuQvdA NsdWRlZCBjbGluaWNhbGx5 LlxwYXJccGFyIFRoZSBmaW 0ecQ2hlxY6SODpFVYfxHR9 ZAJtxE5nTUKfDWQtozXyHA dhZGljaGVybGEgdmlhIFRp W2QaFHTgyh7tT5Eaq79rPZ IvMjcvMjAyMSBhdCAxNDUw LlxwYXJ9 CPT Code(s) (test code t8sxeASmMTRvzAB3KgWoTD = 3357) Cfa7vrt7JsgHCqyJTeWRif gVXzdkHasr25fXZ1cE87JJ 4xLUIyUbM1SGIetwE7Zpv4 LSZxOAKkyEAjR961g5ewb0 epxgCesWY7oHfcBIFyozyf TkD4BVyqSQJxxaanJQp3JY mbIPUwjNH9JZYivIYiT3Pl RBCfSR6wsio0GMT1HQidPL FdIdS4LPGekFBqETGyyHwo VRwzw114RIF9TrChOMUwqh SohWoqgY2gQuTpGBH8NDZf PAecUCzsCLYpHEt4EgLoKK ggNVxwYXJ9 CLINICAL HISTORY (test s8ebvANaPEPytVF9TpUiAG code = 3356) Sec2ykp5JmrOLfpSUvHNlv aCPwgeUfek51zAY4tE84RI 7eCJWrSbX0CQAzxpB2Mcg2 NQIzVQHbdWOsC513g3xhg8 xtbpBsvKL9gCazIAObdgki CaI4AClqJKUnxtuaLWm1YF taNNRhzLY7RWIidVApR3Rn SHClFG3yuxz2CUB3WLhyHK QwRmB5SXRwpAKkHVEcnAiv EAwxx221APY5ObTxRIBsju KmvWlsxS3tHeYtMWHZnqxb cmdlZCBsaXZlciBtYXNzXH Bhcn0= SPECIMEN SOURCE (test l3fobVVnRFMopWF3BhSyMI code = 3377) Mbr2unf7ZsoEGzsHHsQRij rOAiwiIimk27eNO9mV45YN 4mPVIpEfV0OQFdjpM0Rgc3 FEUtHCLtvZMwH919f0guo7 rumuZwjTV6tGsfZWPoyzrx CpH4SSycBYIcbaihUMx9LA oySPJoySX6QITzlLZuT4Um CRNaZM8kjlx4LAF8VEdkBY VwKnE1WQHjlALpZWGbqNhb HJdqa405HQV2AvBwBHKkwf HolNsnwV5eNmEkFTKNhRUu clxwYXJ9 GROSS DESCRIPTION (test r0darDXeAQPvgLR4VlNaBM code = 3366) Ymx0dkm0OeaWRhdEPpEBrt vLOhubHgnv08zAY0qM72SH 5sPCXmGqP1EHMxhjZ3Yzb4 LYQiDCKccYLzP590o0tet9 hxwqMpnIM7HAMnZRUnI6Bs OO5vZZKnqYFkW60baPOuIR O7JQPmOAYwzEPgJEFmRDA6 VJOwjISsP2jaAOTnHG1kct mmWXchOQbzEAUorAP4CKVf fGXzQ7MaUYYbGFpkNIUrsp m4VnDgXl6viSVahHpwASww YXJkXHBsYWluXGZzMjBcY2 XvKIMpF4PrEZReAJa4SWXt tP7vCn5egFOqcL5xD6UfWG DoOVVzeMNbWZJbJXUrj4b7 hVH0cWMkkEO0zSCwoZcyDO 2khQBfOL7ZPuXcyrMsU1Cr TDNxL1GvIJuatoUyNHDsaT 5zd9dxS0IjGM4oDSmgXYSr ZWNpbWVuIGlzIGEgdGFuIG QetcQiwpFkXDfsSBRju1Go pLLnZZZnpFIqksldEB36HL HtFLfoFmYzrV3toROsZ8Yr JGA7CKSrWMZbP7XtQKIzOI fbMFAlQM0srHUvLYVvPGMr IMRmSMRjtPBxcS4gzzPjzj GubXa4ZBNiJRFznpUod1Ol oGz7fDExBSlwVKHjcJ7vkQ 2tTMQqPTOiubkuGYKhC6Yv xWWzGMhaNV6pWYgYDEAcJS NDUClccGFyXHBhcmRccGFy fQ== MICROSCOPIC DESCRIPTION m3mnyKAwZNVbyAB5MgYfMK (test code = 3371) Kmp6ouj2DbsURclVQvGOgz xWWtvnKcms97oJO7tI40RC 7wANIgLiQ2NIPlsuQ6Dbl0 SHXgTABzvCHsR884g8mbx5 zrpeLsvUX7jVtrDZUfcjza MaK7OJcdCCNozodvHTx5WU jqATHrcEX4VNEanDXeP3Ck MJMgQS9unmr4DQG8YHffYB AqEsJ0PDSrdBFnEHBhiLge WCsct042OES4FhVlVTCfhy NljAaltU7jBbEgELHHDXPr x7FzJAUpbCZtmG== SPECIAL STUDIES (test d7hgeVAvZFVdz1mrTSTkqH code = 3376) FuZzEwMzNcZnRuYmpcdWMx GXzjltElRYzpt2OnA2KnPr AwMFxhbnNpXGRlZmxhbmcx RWVkZES1maYrGQEyRSzaHC ZgIMnlPu7jaZRagErxQkSi PQPyl3eyiqONgjnqfDl1p3 ycGRIhQhU1kBFmASppA7ul ekRnxFWrU8UwhDBmqLs0w0 vvVhGbEjN5mUIsTUbkK0xt jkTqdRBuGSLlYWn2eA02KQ JbvQ8jnVInRXjgboLcJuX1 BTyaDAHjVjW5ZTHmnNQeVI OiA9sxKXRcMPkmGQRiJGbd wZSpOSF0ePekp2X0jFHlcJ BfwRwqIwTdMkYoWfAXy0Sd XMf9iVfuD0XaXEZhAzZ6pK QgUGFyYWdyYXBoIEZvbnQ7 sDwilfFxp99hsWHdNYBgNY UmKaCmsGgzQQEgIJOZm8Iu gIvpYRC4qFp5tSlzUymlLM B4Tuh5HX6itp94xzx3uXqd LTOgitihSeU5KOilGGPvgd lnHWl0FXwmHCJsnBA1RPLo bPVrI2HaPRLlSU9kxag7UE Q4YYfqTMNcHuD9YYJobOCj IYJkyAyjNBhas862FFI5Io QiZF3aZ7Wjh0E7xD3pjNSg AGWqrVAdYtAtEZZyjy1fnG FvJWvgd5VhQKZ7liD2bWHx wBBhXUDnPR21Epdbu2WoIp mrt2JoQ50qwEU3PUatb9ix FO9nPkT6qaMpRIfza2hnrJ 4bGcR7BFzwKV7iPB0yEPQi vT7skapkPCKnYtUpmhmtAE RetCetjjClEw6uhXahRNR4 TNkaJ1lobH9sKzT9NTegZ1 atlB4uGQt9RBfzdVI2RQWn qG5wRT9vgoqzh1vtBWarCD aiJKRcciL6hyL4FFHcsXFs I7GvwX6hBNRnSS1ktmjui9 usASH5PWyePUNpEMA3WjKr XCWlv1Ivzyl0NnWdd6EwaX DlHFosW65nq251TGTtwlMu R5mieBXdigvppPMpzvhkJZ zfrmA6LYJjWCWmPSmeJNLt XGZzMjJcbGFuZzEwMzNcaG ljaFxmMVxkYmNoXGYxXGxv W0vlEgNzP5DwIFFvSrDwTX gcAYjbfXBptHKjtPF7iD4w ZV3aLEGlvPYoY5RiBBBvet JepQRnHHT2rTDweECyDF4k WLrjxEIyp5fgw8AuX4ofdI dttSF3CI0aQWWaVUFrBNry e4FkxB2uXbjcdMFxppgfIJ xmczIyXGxhbmcxMDMzXGhp R1vgLuXjZSOskCjxMBjmj1 NoXGYxXGNmMlxmczIyXGx0 cmNoXHBhclxwYXJccGxhaW 3dWuXyAfEfPaywGA4mQGYn X9zlsPGwNBUcAIDyL4jjPm CfgO2nmPppMStxSvQaShJm QpDZf214as3rJOCxeMBosw UToMFwjO3pEKgnUDgmPUbt hSJbLWkhl9ykEUYui6n2oW CyYWClfzLrz5dxUCkawtOo PPWbbMRxoESyXXNib02cEN juoQhkhEuvWMNna5FlyBoe j6InVpInJWvjm5ZvU20jqK JvbCBzbGlkZXMgcnVuIGFs o31kw4fkZTMoDqQ2mJMqfX P9rNAruAAmq3SzzCupQYFm g5yvMXGkxw7sfaazbECbp9 SetX3wxfyhYFftnKNigdPk FLHey1x1sDVeVGBuFFIcMT hiuCa6XWKxp610wu8jybL4 aUSuDHP1MYauLCPqFUOvtf UgZXZhbHVhdGVkXHBsYWlu XGYxXGZzMjJcbGFuZzEwMz NcaGljaFxmMVxkYmNoXGYx GTufB3hgLdXkW9HsBTXgWl XltJLqG0ytgDYkCTShHWqe XGYxXGZzMjJcbGFuZzEwMz NcaGljaFxmMVxkYmNoXGYx GBrbD3cbCzBcB2XlDJEnYe IgIFxwbGFpblxmMVxmczIy MQfkoywkNRAbCYknO8hcEw XgDXHpoFewDKujv4AuYKWx MXRfFovuykCkHFa8eiEwOD BhclxwbGFpblxmMVxmczIy HPqmifqoASCvGIjsM7ukKe EvTJCucQbzRJyca5SqVUMf XGNmMlxmczIyIEltbXVub2 mwx8TfM8qebAtxjSV0UYZk R4znhDXsmRF6SBO9tQ7iNO wolbLsUMOmi6LfTVHjTYXl TrU1tT7nMID1SyKInEiqTL BsYWluXGYxXGZzMjJcbGFu ZzEwMzNcaGljaFxmMVxkYm TqQAYzTAcqR4voRkRjA6Jh ROZxXxKefRdoBSegAYl9Qd xwbGFpblxmMVxmczIyXGxh hsriISFbOXcpM4yjCkVcYO UemYqsNOfiv2QvZHQeWMHu MlxmczIyIHMgTWVkaWNhbC XKHE22DXGjAVZafUeieK0k sXFXRRJeuoY8u6N3XSaqRC GpZJr2EZbaljUxEJLpfO8f DXJiIJ2hAHm1xcIcUZTes4 GmTP8mZADihROrKQS2AOXo s8TcL7Rdy7XrRPRxRZOjqa 9ntaPdKaLKtGJsURPspg92 LAGdVT6rN6lnFPLsZIBsdl ThfSMaq9BlNKBqoVA3dBJi DC9OZwMGh53pCWNdUSXEer EtZEHunLlkrDF4kfF3tB6z LiBUaGUgRkRBIGhhcyBkZX Yerl3niuJrDKEeMIRza1Nt gSCjeRYsaeWrX8Tvq4GtOI Cbnr91VMxlmTTtup73UD9y C6Pio2IvwH1tTWxuFFClm6 LcoDEylCIvFERab0WfA9ic viokFEvxdTIadO7uVIIkBH r8AGQoo6CqOWZlh3KkWrJm zaUsHXVlEZTqTFVqpU33BE I9cRcrpKyawjUzDZ3fNYPv rsHmOBBbESDkrO1gXPqrzy KdZEHxvfB2q1I2ZQxtTLGk nuPlAmxdFIK1ckXqozM6vO LoV7hegjrtKUjhWKVhp9Ai iT6fxFDEsYPgf9UutKKehK MEpRHfEQ7nagLqRK0oBGD2 ODggKENMSUEtODgpIGFzIH Q1GGukJncgXJG9zoFnIQTb e2WkMGnwK9tqA50uvXnesM s6bEKkiXnqtEPntQWpGBNz avY4i7Z6WWYub0WjiqokBL BsYWluXGYyXGZzMjJcbGFu ZzEwMzNcaGljaFxmMlxkYm ZjBIEpOCjtL9hdRbRlZlKv KbkfKAQ9kK== Gross assessment was [facility] performed at ([facility], = 2777) Department of Pathology, [address] [place] [id number], Technical component was [facility] performed at ([facility], = 2778) Department of Pathology, [address] [place] [id number], Professional component [facility] was performed at ([facility], code = 2779) Department of Pathology, [address] [place] [address], [facility] [id number] 14:51:42Surgical Pathology Report Case: [id number] Authorizing Provider: Jessica Espinoza Collected: 06/12/2021 05:40 PM MD Meme Ordering Location: [address] Received: 06/12/2021 09:22 PM Service Pathologist: Ofe Luciano MD Specimen: Liver LIVER, BIOPSY:- ADENOCARCINOMA- SEE COMMENT Signing Pathologist Direct Phone Line: [phone] signed by Ofe Luciano MD on 06/16/2021 [...] primary is excluded clinically.The findings were relayed toDr. Jessica Espinoza via [facility] [facility] on 06/16/2021 at [phone], [phone], [phone] x 5Enlarged liver ma ssLiverReceived in formalin labeled with the patient's name, [...] positive and negative controls when available are evaluatedImmunohistochemistry technical testing was performed at [facility], Pathology L aboratory where it was developed and its performance characteristics were determined. It has not been cleared or approved by the U.S. Food and Drug Administration. The FDA has determined that such clearance or approval is not necessary. The test is used for clinical purposes. It should not be regardedas investigational or for research. This laboratory is certified under the Clinical Laboratory Improvement Amendments of 1988 (CLIA-88) as qualified to perform high complexity clinical laboratory testing.[facility], Department of Pathology, [address] [place] [address], [facility], Department of Pathology, [address] [place] [address], [facility], [facility] of [facility], [address] [place] [address], BWDX-GLUCOSE [id number] 12:14:31 Test Item Value Reference Range Interpretation Comments POC-GLUCOSE METER 150 mg/dL 70-110 H : [facility] ([employer]) (test code = KENYA Mcmullen [facility], 153) 22604: Music Therapy Specialist/Techni grisel ID = [id number] for MIHIR DIAZ ANTI-MITOCHONDRIAL AB, REFLEX TO [id number] 11:22:59 Test Item Value Reference Range Interpretation Comments SCAN RESULT (test code = 5961485) Anti-Mitochondrial Ab, reflex to [id number] 11:22:59Scan ResultQUEST DIAGNOSTIC [facility], reflex to [id number] 11:22:59Scan ResultQUEST DIAGNOSTIC [facility], reflex to [id number] 11:22:59Scan ResultQUEST DIAGNOSTIC [facility], reflex to [id number] 11:22:59Scan ResultQUEST DIAGNOSTIC [facility], reflex to [id number] 11:22:59Scan ResultQUEST DIAGNOSTIC [facility]- Mit[facility], reflex to [id number] 11:22:59Scan ResultQUEST DIAGNOSTIC [facility] CenterAnti[facility] Ab, reflex to titer 2021-06-16 11:22:59Scan ResultQUEST DIAGNOSTIC [facility] CenterPO[facility]SE [id number] 07:29:28 Test Item Value Reference Range Interpretation Comments POC-GLUCOSE METER 124 mg/dL 70-110 H : TESTED A T [facility] 6720 (BEAKER) (test code = KENYA Mcmullen [facility], 1538) 31931: Music Therapy Specialist/Techni grisel ID = [id number] for MIHIR DIAZ HEPATIC FUNCTION [id number] 06:32:25 Test Item Value Reference Range Interpretation [...] (test code = 35 U/L 6-55 347) Music Therapy Specialist ID - DBSpecimen moderately ictericPOCT-GLUCOSE [id number] 21:12:07 Test Item Value Reference Range Interpretation Comments POC-GLUCOSE METER 148 mg/dL 70-110 H : TESTED A T [facility] 6720 (BEAKER) (test code = [facility] [employer] [facility], 1538) 82568: Music Therapy Specialist/Techni grisel ID = [id number] for JUAN HAND SE POCT-GLUCOSE [id number] 17:03:44 Test Item Value Reference Range Interpretation Comments POC-GLUCOSE METER 123 mg/dL 70-110 H : TESTED A T [facility] 6720 (BEAKER) (test code = [facility] [employer] [facility], 1538) 95810: Music Therapy Specialist/Techni grisel ID = [id number] for Do minguez, Parth POCT-GLUCOSE [id number] 11:52:32 Test Item Value Reference Range Interpretation Comments POC-GLUCOSE METER 143 mg/dL 70-110 H : TESTED A T [facility] 6720 (BEAKER) (test code = [facility] [employer] [facility], 1538) 79273: Music Therapy Specialist/Techni grisel ID = [id number] for Do minguez, Parth POCT-GLUCOSE [id number] 08:02:23 Test Item Value Reference Range Interpretation Comments POC-GLUCOSE METER 140 mg/dL 70-110 H : TESTED A T [facility] 6720 (BEAKER) (test code = [facility], 1538) 68803: Music Therapy Specialist/Techni grisel ID = [id number] for Parth Salinas HEPATIC FUNCTION [id number] 05:08:28 Test Item Value Reference Range Interpretation [...] (test code = 34 U/L 6-55 347) Music Therapy Specialist ID - DBSpecimen moderately ictericPOCT-GLUCOSE [id number] 21:09:08 Test Item Value Reference Range Interpretation Comments POC-GLUCOSE METER 127 mg/dL 70-110 H : TESTED A T [facility] 6720 (BEAKER) (test code = [facility], 153) 19545: Music Therapy Specialist/Techni grisel ID = [id number] for JUAN HAND SE POCT-GLUCOSE [id number] 16:45:22 Test Item Value Reference Range Interpretation Comments POC-GLUCOSE METER 138 mg/dL 70-110 H : TESTED A T [facility] 6720 (BEAKER) (test code = [facility], 153) 14284: Music Therapy Specialist/Techni grisel ID = [id number] for ZA VALA, ERANDY POCT-GLUCOSE [id number] 11:38:28 Test Item Value Reference Range Interpretation Comments POC-GLUCOSE METER 182 mg/dL 70-110 H : TESTED A T [facility] 6720 (BEAKER) (test code = [facility], 153) 09740: Music Therapy Specialist/Techni grisel ID = [id number] for ZA VALA, ERANDY POCT-GLUCOSE [id number] 07:48:25 Test Item Value Reference Range Interpretation Comments POC-GLUCOSE METER 93 mg/dL 70-110 : TESTED A T [facility] 6720 (BEAKER) (test code = [facility], 1538) 95692: Music Therapy Specialist/Techni grisle ID = [id number] for TOYA CHOUDHARY, IGNACIONDY POCT-GLUCOSE [id number] 21:21:25 Test Item Value Reference Range Interpretation Comments POC-GLUCOSE METER 119 mg/dL 70-110 H : TESTED A T [facility] 6720 (BEAKER) (test code = [facility], 1538) 95122: Music Therapy Specialist/Techni grisel ID = [id number] for JUAN HAND SE POCT-GLUCOSE [id number] 20:18:07 Test Item Value Reference Range Interpretation Comments POC-GLUCOSE METER 94 mg/dL 70-110 : TESTED A T [facility] 6720 (BEAKER) (test code = [facility], 1538) 88530: Music Therapy Specialist/Techni grisel ID = [id number] for TOYA LA, ERANDY POCT-GLUCOSE [id number] 20:15:49 Test Item Value Reference Range Interpretation Comments POC-GLUCOSE METER 165 mg/dL 70-110 H : TESTED A T [facility] 6720 (BEAKER) (test code = [facility], 1538) 43724: Music Therapy Specialist/Techni grisel ID = [id number] for NARCISA MACARIO HEPATIC FUNCTION [id number] 16:35:07 Test Item Value Reference Range Interpretation [...] (test code = 34 U/L 6-55 347) Music Therapy Specialist ID - DBSpecimen moderately ictericBASIC METABOLIC [id number] 12:34:43 Test Item Value Reference Range Interpretation [...] S NOT APPLICABLE FOR DIALYSIS PATIEN TS. Music Therapy Specialist ID - PIAYA LSpecimen moderately ictericPOCT-GLUCOSE [id number] 08:13:41 Test Item Value Reference Range Interpretation Comments POC-GLUCOSE METER 98 mg/dL 70-110 : TESTED A T [facility] 6720 (BEAKER) (test code = [facility] [employer] [facility], 1538) 86680: Music Therapy Specialist/Techni grisel ID = [id number] for ZAJU LAIGNACIONDY POCT-GLUCOSE [id number] 21:25:44 Test Item Value Reference Range Interpretation Comments POC-GLUCOSE METER 133 mg/dL 70-110 H : TESTED A T [facility] 6720 (BEAKER) (test code = [facility], 1538) 31344: Music Therapy Specialist/Techni grisel ID = [id number] for PE RALES, SHYLA ANG, CHOLANGIOGRAM, [id number] 18:57:00Reason for exam:->biliary obstruction recommend R biliary PCT drain [facility] : 1970 Sex: FFINAL [...] into the common bile duct. A 4 [facility] Berenstein catheter and 035 angled Glidewire were used through the AccuStick catheter to carefullytraverse the common bile duct and ampulla and select the duodenum. Catheter was advanced over the wire to the level of the ligament of Treitz. An Amplatz wire was then placed. The catheter and sheath were removed over the Amplatz wire. The tract was dilated. A 9 [facility] peel-away sheath was placed. An 8 [facility] internal/external biliary drainage catheter was then placed [...] 1. Successful uncomplicated placement of an 8 [facility] right internal/external biliary drainage catheter for a high-grade ob struction of the right intrahepatic ductal system secondary to a large central hepatic mass. 2. Successful uncomplicated ultrasound-guided core biopsy of the large central heterogeneous mass as described above. Total fluoroscopy time: 10.1 minutes. Estimated total patient dose reported as (Ka,r): 554 mGy Signed: Randy Saucedo Verified Date/Time: 06/12/2021 18:57:59 Reading Location: [address] Body Reading Room POCT-GLUCOSE [id number] 18:31:15 Test Item Value Reference Range Interpretation Comments POC-GLUCOSE METER 124 mg/dL 70-110 H : TESTED A T [facility] 6720 (ARSALANFELICIANO) (test code = KENYA QUINONES [place], 1538) 68622: Music Therapy Specialist/Techni grisel ID = [id number] for Carolin Espinoza lt SARS-COV2/RT-PCR ([facility])2021-06-12 14:39:57 Test Item Value Reference Range Interpretation Comments SARS-COV2/RT-PCR (test Negative Not Detected, Negative, See code = [id number]) external report for linked test POCT-GLUCOSE [id number] 21:59:26 Test Item Value Reference Range Interpretation Comments POC-GLUCOSE METER 138 mg/dL 70-110 H : TESTED A T [facility] 6720 (BEAKER) (test code = [facility] [employer] [facility], 1538) 92567: Music Therapy Specialist/Techni grisel ID = [id number] for KIMMIE DOMÍNGUEZ POCT-GLUCOSE [id number] 17:44:44 Test Item Value Reference Range Interpretation Comments POC-GLUCOSE METER 137 mg/dL 70-110 H : TESTED A T [facility] 6720 (BEAKER) (test code = [facility], 1538) 64805: Music Therapy Specialist/Techni grisel ID = [id number] for EMMIE JOHNSON POCT-GLUCOSE [id number] 07:51:42 Test Item Value Reference Range Interpretation Comments POC-GLUCOSE METER 94 mg/dL 70-110 : TESTED A T [facility] 6720 (BEAKER) (test code = [facility] [employer] [facility], 1538) 09886: Music Therapy Specialist/Techni grisel ID = [id number] for EMMIE MOREIRA COMPREHENSIVE METABOLIC [id number] 04:51:42 Test Item Value Reference Range Interpretation [...] S NOT APPLICABLE FOR DIALYSIS PATIEN TS. Music Therapy Specialist ID - PIAYA LSpecimen moderately ictericCBC W/PLT COUNT & AUTO [id number] 04:50:09 Test Item Value Reference Range Interpretation [...] PERCENT (BEAKER) (test code = 2801) POCT-GLUCOSE [id number] 21:21:27 Test Item Value Reference Range Interpretation Comments POC-GLUCOSE METER 140 mg/dL 70-110 H : TESTED A T [facility] 6720 (BEAKER) (test code = [facility], 1538) [id number]: Music Therapy Specialist/Techni grisel ID = [id number] for JUAN HAND SE POCT-GLUCOSE [id number] 17:36:27 Test Item Value Reference Range Interpretation Comments POC-GLUCOSE METER 123 mg/dL 70-110 H : TESTED A T [facility] 6720 (BEAKER) (test code = [facility], 1538) 63819: Music Therapy Specialist/Techni grisel ID = [id number] for EMMIE JOHNSON BONE AND/OR JOINT IMAGING, WHOLE [id number] 14:29:00Unlisted Reason for Exam - Click Yes and Enter Reason Below->No [facility] 1970 Sex: FFINAL REPORT PROCEDURE: BONE SCAN, WHOLE BODY CPT CODE: 40635 INDICATION: Left hepatic lobe mass. PROTOCOL: 21.9 [...] Angelo Verified Date/Time: 06/10/2021 14:29:27 Reading Location: [address] [place] [address] Reading Room POCT-GLUCOSE [id number] 14:23:13 Test Item Value Reference Range Interpretation Comments POC-GLUCOSE METER 136 mg/dL 70-110 H : TESTED A T [facility] 67[facility] (test code = [place], 1538) 81700: Music Therapy Specialist/Techni grisel ID = [id number] for EMMIE JOHNSON TISSUE [id number] 13:44:33Surgical Pathology Report Case: [id number] Authorizing Provider: Rosa Whiting Collected: 06/07/2021 10:53 AM MD Page Ordering Location: [address] Received: 06/09/2021 09:46 AM Serv ice Pathologist: Sean Gibbs MD Specimen: Common Bile Duct, Obtained by [employer] COMMON BILE DUCT,BIOPSY:- INVASIVE ADENOCARCINOMA (see comment) Signing Pathologist Direct Phone Line: [phone] signed by Sean Gibbs MD on 06/10/2021 [...] Radiological, endoscopic and cytological correlation is advised. [id number] Bile DuctReceived in formalin labeled the patient's name, accession number and "common bile duct" are multiple fulton soft tissue fragments measuring up to 0.1 cm in greatest dimension which are filtered and submitted in toto in A1.ASHIA Felder, HT (ASCP)Performed [facility], Department of Pathology, [address] [place] [address], [facility], [facility] of [facility]ology,[address] [place] [address], [facility], Departmentof Pathology, [address] [place] [address], [id number] 13:43:33 Test Item Value Reference Range Interpretation Comments Case Report (test code Medical Cytology = 104) Report Case: [id number] Authorizing Provider: Rosa Whiting Collected: 06/07/2021 11:18 AM MD Page Ordering Location: [address] Received: 06/09/2021 08:38 AM Service Pathologist: Sean Gibbs MD Specimen: Common Bile Duct, CBD aspirate DIAGNOSIS (test code = [id number] 3220) FuZzEwMzNcZnRuYmpcdWMx IHtccnRmMVxlcGljOTYwMV syaxIqZFXtpYOpL8Gzoiil BSdgDH1qZL1qaUjxvYQxtW TbHCYrUbXca0wvx881kXEd h0uhMSKEkqsowRa2yIcqQ6 0na0R0JxkpS78ndFInQVP9 DYNkYIEwlYIpOFRgVBE1CE CrdFIfP5ajHZSlAI7ljiea EMjtNNzlYLHjePS7CQBmlU GnK1LkMXIsMKjaAIJdjiu9 EhSlJu0kgPMfnTecSJbuWC BjGVPaNYswUHSeHyIdI11K CT9QTNCWABKdTWRGUKEWQ5 XGUtYAUVBDIRCMLQLjJ9nR U4RSAB0LTLwbcBPyLYSoGX 8qMO8RFUXYDoNhNk8TCU9Y TElHTkFOVCBDRUxMUywgQU TQXi1SHWGWZA5AOTMoJPJz JEAbd11qBM81SHmfXQR1p4 xydGYxXHNzdGUxODAwMFxh bnNpXGRlZmxhbmcxMDMzXG U1acBtUEKvXIjtBUXzTKlh Hr0mkRNibFqaOiBqYFFuj2 dexdTDiqfsbFm6h6fvQAGl XeY6hACaIXwlF7mudaOrzL NvFNMlKZc8eW96QYWgvQ8r hWGcZHbxxzFqAcO5VGwwYQ YsHqC6NEFqhXYtGUJoY3xc ZWQwXGdyZWVuMFxibHVlMC T8oUwdx6P8wGTnyJTnaOzp GiLpYeHbTrRYd7BgFQl9hU oyP1NjTGEtNiC6fIApJIOq WMyqGQKtGHDxdcD1zK65JU qbljU9yTPgq8Koz02ji988 eU0iwOTvXZG4GIDeFUAgsH DtHEOnIBJ1FNHvaVVkI7bi KHHmLK8wpophDQaeCGwhFJ EjaSK4CWCkpZOkW7XlPQPc PQlgMHZrvzw2CaBrHy8ibL DtyFwiTYnhb5xlq8gjqIGi Kgn7BHQgDgObDobaBNbhb1 Irg0ijXFBwbq5uWRZ9bAMs yUokp1Z0eIQxTYYczJDwUV UmVK3hxVKfELOtoS9srxjb XHBnYnJkcmhlYWRccGdicm JxFm0ugHerJTH5MKohS7ie tF2sZlY8MOmuH6dsoG3uKI u1PLlxOMTsyAT5vkT2TXLf zEFbX6NohJ5wBFFfBN1wkg r9c7cqKZM0FPvwZBNvHtC3 tpG6BOEpxENqZAJshYnvBG eug024RNC4RcVaQMAtn1Vi J5ImfVepM29fiNguD87dVF RdbWgprW7ckOduhQ0iYhKu LjNnFCqmzRwhNE6xNTQdP5 rraDDjMRXaIAMhQ3tlBgNd jW3avHghZIaoshNkJHXtRl q0CPEddNLqBJEbVju8RLNe OFCjZ75xonsnNYM5vO0cs7 glm6RtEOarQXU0BXSwb29z NUhajdN3ASssVi43KOiuCX Q7BQxdoOStaW3= COMMENT (test code = r2rxqGTzWGMxdDA7GkSvMF 0169) Rjc3win0LewZHgcRYdRTho jPGfpsGiqn64qOV2vA73CR 7mECZdQrA8HKLwnmG2Ixd4 KMWlLQXfxTWkN826x9spo0 vcoeLscUK6vDmmCMUykeyl JpP8WPmmSMCmnpliTNm3JW dzVHWvmWM0DSBoqIGvV1Rk BRUlQM6zrfe0RQL8AQjaVN GwRjE2RFTztQKsXETewIlk TVhns555ZEV7DxRrUDWvbg RcmPdxkP9pQyNoJUXTDYBh avT5aUK8XO7hLNWxJNK1pu 9uaWMgbWVkaWNhbCByZWNv lrVjZHfgDAqsnrfweI0nhu Nkc9aeveFjDmApZUY0WBjm dmVyIGxvYmUgbWFzcyBhbm QgXZ4lNL9zy7Tql5RsXsNm rKTyTZDnsB3uTE4cEZPjqv QmQIMyfBOsn2CrvvXcLnUz EBH5HX5daA4aDSGgbJJqwU G6eYBpnST8RYyto0SpIpje jFHrPQQoy51ub6FiuAYmSF Hrf6Mzv0ThoaUdmwyeTYgm LS4lfSArIqAGlIDkx2Kdwr CcvXbuQFFej1shqsOcNQSs ZWRseSBhdHlwaWNhbCBjZW fdfzR0aNPsLV86P7fzKSTe oWVjJwUepoLymXGhRCz4nE VkbXA5IVDczYUjpfBata6e YXNpYSBhbmQgaGlnaCBudW GmPYAhRNCeWPR9aV3zhEZn bWljIHJhdGlvLCBhcnJhbm veGNBafjSjl4vrp7b2KICm bHVzdGVycyBhbmQgYWxzby ThzY7giDvyNVyqfOUmq5Ea TwSJw59cHWLzdHaaZGFtl6 cyyZ26roKfkHMjbYosq34v UqC9WNH4x1qmax0xO3Myze RmyXftqPjiSCQ6mR0ob3h9 BGRskmDzFSFkBRM4FFAlPK CyqHTyNWNzAESycM8yqSWl pvRlFn5kAM4psFcvbaRdG7 zyPHBfZO7xU0UmK3svv88g ESWyrpR6lGQiavlaeKPyP8 blgwjoNLmtx0G3iHcjUu7o vIBmSUNdtrBAiHLji0JqGD ihkpHmLRCti3MyI9xzEBku pWL7cA7qw3m3GOMuvA5uwW OJCcDpFXC7HbEyIGgzHJB6 CPT Code(s) (test code h8itePHqNUSjwRG9VxPfWC = 3357) Kjv8vvv8NzxLWzdXRyGPne fCHebmRnfa40qQE5jZ61CT 3aYWWkDaL3AKIqrtM8Aiv0 FHKvXTElvKGgM928e7odn4 kufsPrwOE4uItiLIBwvwbc PgT7NGmaMRBbhqubSWp2XX hwXMEmrJG9IJQgrPIaU0Bi NYMhZD1oclu7UTM7GLyfBE MxKzS3SRTzdFZqZNVxwAyz ZGugi520RHI8InCdVHWnyp HrrJtfqJ6vRiTfNWR4LZUh OFxwYXJ9 CLINICAL DATA (test v8mgpMItYTTgqZF3UjCsBV code = 3350) Wxt9yfp8ZsnMFjoGDaMUdl xHCynuPyfz88gEV7aM91EW 9wOUFuUhK1XXQdxeJ6Pxy2 PDHbQLUmtKHnI632a2hqz5 duwmJwjKQ1GPQoOLNzJ4Dy FA8pFWOplCVeU67itYCjPK D6PQMmUERvpKLhLYDbIXP2 GIMnvCJrI6zzLKChHD7rfe ijPRjaXKkuJZXzgEE3GNUu eJXlC6GxOPRoONucNJUuar j1YjJmCj7hcEPujKrwMQxr YXJkXHBsYWluXGZzMjBcY2 HkRErnF82czPy7AHAgxDUv ieosr5MqfYahtM31ixMfc8 VzR9qafTUfJ6waU6AzQ9in y91nYcCvmXjmfZjnjCRzlX mzGR50SEVmwysdi2H6KVdc pCtepYaoae3lBDOgyQKbb6 PuAIE7gQX7gmChSmLvE72m cGFyfQ== SPECIMEN SOURCE (test g7tzxIJhQOWlsWG3NuXqXW code = 3377) Odu6drc4LtlXWudZTxMUed rFFcxiSvdc82dIU9yA96XC 9qYUJtVfV8GVXiuoA2Sbn3 FUGaNNHlnMZkW879w3dmq9 wjheQjgBX3yZfaROXrkytn TiK9LLumOZFswbnnFIt5KA rtXOOmgXV0RASunVWqV9Rp HPAgGS4ffsg7XEY1XRzcDT NyVbI1HORtwMVvPYIeqGjr TCcga664ORA9HqNrGACcwz XbiSjshM8cNpPyEKEFZ75I G35xPsuNCTQTNYSNHZCXQF lSQVRFIEZMVUlEXHBhcn0= GROSS DESCRIPTION (test u3vxjQNbLPAbcRSqGsXyIX code = 3366) AaGTZtt6kdABGcbMAkOfJb MzNcZnRuYmpcdWMxXGRlZm Wlg7kyz093rWBao1qmCYXz OfX2qLMtKCClrHOaY024u5 hqk5ebvsFbcDA0ZAFeABE9 YCiabfCgdqJ7ZBllwAVnXj L6GPdeynZnARemhhYbxbEq Run0SECkZ184NSM8eEekb1 zbWMK9UUCsCWJhGkMyOl8s pRJeN200RXKkGTPZNXRhiQ s0RFHbjlXrvlDklZVVf108 Q242t6wiHYGhkmQysMyOtp woh4fkU010RWIwiRAtwwGw MsHmMHBiuDFbmLX6DQUyZL 3ijccvNxVsXN4fagjdGsHk PA9jukj0TmRnLT5psqahRr EdVGozFQFlrvnkTJEiq9Ba trdaSB1oF4Tpy7Q3aO9kgN EaAUAqxDXsJxHxVYIdcr9b wRGiHSxpy7ZcTCF8iwW5fV ZbwHFvYJQuLD97Rdhet0Kj AzgcCUJ5LGNbfkVmy3Grr4 ztGzFjswIyH5clL7SeQDTh WXVuQMNhRsAhufOkx0Vti8 OnkQBwuVe2a8bbSMLdYUQx zEdfn2gnPOO3APMoO8C3oV Oow8rpFEnpQRIbkHI2ngiv PKwaLHBwrmD7isrsZRfzZG LtvPZ9wqzgVLvzZXNlYjJ4 qakyXXjpDWCpUNZ9NFazu9 18GPW6QZfyNmkvXMcaTPEr bmNvbnRccGduZGVjXHBsYW luXHBsYWluXGYwXGZzMjRc xZvlgSeavP3zGaUiQbNbDX aaIP7vQLFuK6rzhLZvLSGy PFJjK2yfYkIcvO7bjLxuCC btvsFxXIDjM8TmnlKnZOEq QQ4qYFwbpVypazKbtGJost qnnHTmACCeWzk8ODVkxoC6 PCTsQCVzjvGpRRTlJ3n7e8 ImxH5pUMruWWJ1 MICROSCOPIC DESCRIPTION q7aapMZuTJKbhZO1FhHhGZ (test code = 3371) Twi8wfa1KsgTUgoRWvXTrk sJHiucKuto68kFT9nA30WV 6pNXKhUyP0YOWndiB1Hfy2 GASxRISgjWVeB041e0hve7 sdhzTlqEQ9bBloJAHozsdg XfI7FPacYFNyfvkaYWp0FS lcNZXuuEV5PPLgtUSxO9Na HBGiJE0jglv9XYA6BKbdCN ZqJsG8SQIajBNkYKGraYdh ERzkt302BXR9XiFxFNNkls QrwSsnrY5lIkGfOCYLLFVb x6VcNPNyTGrqFCL8 Gross assessment was [facility] performed at ([facility], = 2777) Department of Pathology, [address] [place] [address], Technical component was [facility] performed at ([facility], = 1648) Department of Pathology, [address] [place] [address], Professional component [facility] was performed at ([facility], code = 2779) Department of Pathology, [address] [place] [address], [facility] 13:43:33 Test Item Value Reference Range Interpretation Comments Case Report (test code Medical Cytology = 104) Report Case: [id number] Authorizing Provider: Rosa Whiting Collected: 06/07/2021 11:18 AM MD Page Ordering Location: [address] Received: 06/09/2021 08:38 AM Service Pathologist: Sean Gibbs MD Specimen: Common Bile Duct, CBD aspirate DIAGNOSIS (test code = [id number] 3220) FuZzEwMzNcZnRuYmpcdWMx IHtccnRmMVxlcGljOTYwMV phjvRsSCUtjMVgY9Otewxa KVgyJS5aBV4ggQctjWSbaK ScEDHkEzEwx7fkl818bXLi s0slRJOPfoqsgUz3aIcyQ8 4oy8A5SbxuJ21ytCNuYTC6 FBPwJMIuuEByUYXhXYJ4AA GwpROrB6ivVFRvNC4rzsrl BVyaWSfkYCPgsZZ1XPPytA KfO1DnDLXrEOhfOMCtmfq4 SpYlRy3fbOJabEcvQVpqSB FwVGKoCXhjNULlJqUnA86P MC2OVHPMYMYsAUCJOAHMT2 VDKkCYYHPEIERNCYIxE1lI X6SUZC7VMJiezHLkIIPkMU 1jHS2ZBDAEIbBlSc7LOD9E TElHTkFOVCBDRUxMUywgQU XDOl6MGTWUNH4TPNTtXRRf OSLmj80fAC84PXsbINM2q8 xydGYxXHNzdGUxODAwMFxh bnNpXGRlZmxhbmcxMDMzXG G8jwZaBMCiWAwsVIVyEDuz Yv9keHIfxAojLrOdSWUlb0 krijJChgppnTe7q9yuGRRr BnI1zTRkDDyyV8hfwcQjgA EaFVBuPUe0pG62UFMgxT0k kJVpZEhcboBnWeL5OVifOG YxNlP9PCNzvLKcEHZfB4mc ZWQwXGdyZWVuMFxibHVlMC N3yMtam8O5kBGceBXewUgo JnEbBtCpYbQEr5BuMMc9aP ppK7WzINZbGqS7lDMrPEHx CQzlEKTyJZGkkoX1cV06EN qsinV7wIPms3Xia66iy846 eC6lrXYdOTE4ZSDrATYzxH MjXQVjZVU3BIKqgAGnV6cp ZOBmGX5jjgomGPzhXEmnMT DyuGS0HGCbhGTwV6TtPYNf ESydVVVfbef8LqIrOo7pzD OrbAuvXBaeo4ygd9oobVZg Gsg6SSMaThTpRkpdTMwwt9 Umu9vkOTRgoc8zDMR6iOIl wNbnv6Y1zMUtXMLayZOeQJ WbOF8viYXcYTZjxZ9moznw XHBnYnJkcmhlYWRccGdicm EdHk6bkMsmGFI2ZWjsY6ha bN5vHcM7MCwtP7jnpP2jHJ u8LIhlYBHrrHA6idN4IZVw dENpF7UsfR6uAWQgEX9qpd t0m7myTXU6AAuvWINaOtA8 fqS8GSJgjUDzVCGyaWelXT zgt303ZKL5MkMrLUXcb3Jp T1QfrHcuM72uoLghD69vGM UgjHeumD3rcSeuzM2fMnRz ZpIwBWtiiTziKM9tUBIbB0 nzkBGuXQKyYPBkF3xfKtId oA2tpCleXXeigvYxREArOq l0JCPdtRDnABKpFjm8IXVw GBYmF85zhyahRLT9lW7ha3 bnj3TaUWvaXES6EHLud85m WOnyciE3TSyhKk36EScnYV N5BOtlpCNmeX4= COMMENT (test code = t3rfsLMmJTOybHO5YqXiQW 3592) Zju7czw4AwqUAxyBQmNOrh uHXpumCtxo07mFO6pX53ZK 7nCGWqRoZ5GAYhhkE1Uwu2 INKvFRMhyQVrY957j9oos2 hcayNubAH0oSlgKKPjyiex IpN1VIzeDEKuigqlWQc6MK wuFIJixFJ5TKTzmGInN4Vw SBQzKA0qoox9LXA2JDhpNN JoGdH7XGTzoGOgPFChsTha MBhut050RMJ9EkDxRCHlru YbzZvxwG4lQxTyEBASUQVv gjT4dWY4JS3sIZCoFRU1wx 9uaWMgbWVkaWNhbCByZWNv tyRlLDsfCOslwtinzW1lxa Lwf3opmnWlNbLeKRP7YWxx dmVyIGxvYmUgbWFzcyBhbm WjJR2vTB7cy9Cxb4KeEjMv nLDhPYHgrO0oQJ9hFSKljg SuAFKauRBca6QcbkHlYcAy VBD2AA2seK2jVVBqyLXbzD M0uZBsvKU0OEkcd7GqYlis eLFvEDCfd41gy8IwyUPyEB Fes4Atl7UweaToioajMAsj QP5glGTaDnXWhTQcm1Adud DjgNwiRYAmj6rtjdVqNEDt ZWRseSBhdHlwaWNhbCBjZW gfyaA4iXDtGM06E7ikQPUa eQXjBqJufcDujEBwDBk7zS EfaLE2PGDxxQRejgGrhs6g YXNpYSBhbmQgaGlnaCBudW VoISTyFWFnUJC6iN4vcCBn bWljIHJhdGlvLCBhcnJhbm spLTBparKov4kcl0p6WITj bHVzdGVycyBhbmQgYWxzby WxkW2dsXcnYPvmhQGdm4Qx UtTOz59gXFSdrQpmHQKfr1 izpV78doWwrZAewHsac25k RqJ5AAZ3y6qbnd1iJ1Uvxs KhqSwpxYwkXOL2dR7pw5q9 GNLjsuWmULNwSGC9FFSdSI HrvVUdZNNgYKWgbG4qxDCo syVbBp4sKE3unZmlhzXgT7 iaVBWmSP6dC4BjK9kda91g UPAsnrG3cVEdbnoklDGlL9 ekfbshCWbxq7P9sBilEe7t xKPeBYFpqrCVjNVne2FfHE bsadMpSKOnc0AmJ9acUBbe nRZ9xN8gb4m9LLQdcW2jgD ZFDePlSWO3VpTsOPaeCVX4 CPT Code(s) (test code p0niwVJpTBZdgSL9AqEtCX = 3357) Wbn3szk6CjsMGbuIIzVSgh eFOhywIsuc72kMH6sW63OE 0aQJXbTbB5FJRwxwY0Qhj6 XRWrTARlkWLlZ993y9ejd5 lnypQuqQZ1vJfnCAKhuwkh SaH4BOpoRICmvtwqZKs8EG ejKYPazTY0KFWsaPOnI2Nt WQRqCR7cuow4IHH3LWjePG JyLbM1IQQppZLzOBEbiLvo DTyuw690KYI0UoTfAPChqe CmnLkhqF9jMkLvMTI8YLIg OFxwYXJ9 CLINICAL DATA (test u5rlxEFlPXNlkAA2HxFfIB code = 0767) Tsu3yex9MtfFBqdNBiDGrm oDMpsdIagi26tOE1fG05DC 8oWNYjVyJ2UTNuybV6Ger0 DZPbMZNbgGVaP431b7jjz8 pdeoAgfKM8QRKrKFCkN9Xa YD7xDDRuxCFuN17vfRDhUV I6XJOfNPYkdOKwFLAhNQZ4 NCWuwBFeZ7hsATBzJB6guz itDEstJFpwFNEnmCM2HTVz nUXuD9NpHLAlGYimQOJsmh d6MtRqRu6rlXJusVybYDhq YXJkXHBsYWluXGZzMjBcY2 XqSLrnE02luJl5PNAkjSJv fggbw6UvoToegJ99zyPgw5 MwJ1bxnOLiI1xrD3XrS6kr v74mXqWbzRnknDfhqFEucO vmMR42DBEbliyfo3C4ITvh eLneqOzuec2fHKHkoEHds1 HnHYY2jJZ4ejSlGqCpR95g cGFyfQ== SPECIMEN SOURCE (test t1gnkBFsXKGdeYG9HfLkIY code = 3377) Uxm6wfy3YrbVBemJYvXBpw tSYmkfPyik46vZO5wM91IB 6mYLIwHoS9GRGjvqH4Njl4 JGNeSQWlgORgQ545f0sjp5 akxjNpuAB3tCsvCLYzcbex RtZ5XDxrOJQagvqhFNn4UC mqLOGqyUV9YZFbsAUlW6Xn HEDwAE2zbuv2DXA3ARlxGS PuHwM1NTFrmQHrDQGelYan ATtju832EPD4EjAoOAQppd JqzWqahP6zTxRbLMOVL80O U05wUagEPIKKYKKOFRFDVC lSQVRFIEZMVUlEXHBhcn0= GROSS DESCRIPTION (test f0fuaAEoJIHpfRWmTcZgVR code = 3366) JsEJRfq8szPSRspIEhNmMz MzNcZnRuYmpcdWMxXGRlZm Bth7uod392uDSrv4wpDMSu YpU2qDIdBVBamJPcW480q5 xep5qczySkhTZ7CHYxLPO6 LQoipxYbdrS5NUxwsQIzAz S6YQljguOxXNauxiXrzaCk Yii3RHCbQ097LYE4qPkyg4 nhZPE1UYApQFEkAdJvDh2c oFCjP023MKBwVGOMBIBeuX d0WPHbxpDnvkFrcEILk499 S937s6ghEJPwfvSjqRpVip fsd1lpW822KSGraZHzjcSu EvLsLRPpoOCsfUC3AHQkZM 8sypwfJaZlPL0uiffdYfSp YH2lrrs6KvAhTB9jpiiuAl TlQOguYQEajqkfEFPyt6Mx puznGX6hF0Crw8S7rW2ikR YwAQZvdBHnDzTmVEVtwv5v kYTuOEveq9EeUIE2llW2mQ DovBNfIFPeZS87Phftt4Kw IhwsDJI6ABJrtuOzy5Rnh1 miXlJrglMkE4zyC3RzZRHt LXJzXRPaDyZulaYez8Orv2 VeaQNswRm6h5hdWRUaCTEz yTjnh3phUDP8CAXjI1L1qL Scz5ryBFdgKGAdwTO0inwb NBcuSTPmbbO7flvdOCtfNW OlxJJ1tagyHOoaDNJpGuS0 pnuaUCuuTTVwTGE1LZlzo9 90MXQ5YBarFcypOBkqJJFp bmNvbnRccGduZGVjXHBsYW luXHBsYWluXGYwXGZzMjRc kKujdJywgW6xAxFiRmLgAM oxAE9lDKFfU4yqeYJoPEIl EQYsG4ggOhZeiP2ssTgdFJ sajzZiIMVtT9HumkQkIVTr DV3jXXijwOefzoXlqEJkxr rnvXXaLWRbDta6YTPhzzD6 IKHeWJOvrwHeJIPkZ4f7t3 BjkL0gKMghDCN0 MICROSCOPIC DESCRIPTION p7lquCCzDINukYU3GmLjPB (test code = 3371) Zgo5cdd1PyyEQamWEbAMzb zSUhsgLpuf85oGZ3jC05BT 3iWLHtTxK2LGCfjoL7Qxc4 RFXnSYBzoAMvP046r5naq8 yywoGnrQY1fMztLGKvcabf OjY7EJaqIRKfbmanDRz9AY fvFGZdrCL5CTQujNAxI1Hx BZVwCS5pqsw0WXH0YBsvZR RiTjB9KEJntEHdKBQzjPzf LVotu215MES3YiUfYMAbwg LbzDwmrI0kIzAkKVXVXLAy k8DvDVUwSYtpRDS2 Gross assessment was [facility] performed at (test code Medical Center, = 2777) Department of Pathology, [address] [place] [address], [facility] [place] [address], Technical component was [facility] performed at (test [facility], = 2778) Department of Pathology, [address] [place] [address], Professional component [facility] was performed at ([facility], code = 2779) Department of Pathology, [address] [place] [address], [facility]33 Test Item Value Reference Range Interpretation Comments Case Report (test code Medical Cytology = 104) Report Case: [id number] Authorizing Provider: Rosa Whiting Collected: 06/07/2021 11:18 AM MD Page Ordering Location: [address] Received: 06/09/2021 08:38 AM Service Pathologist: Sean Gibbs MD Specimen: Common Bile Duct, CBD aspirate DIAGNOSIS (test code = [id number] 3220) FuZzEwMzNcZnRuYmpcdWMx IHtccnRmMVxlcGljOTYwMV gpzqCwGPZqjZIyK3Rbymny HWeuJD3vIN5wsDmgtNRvrN ZaIDCtEkMxh1zxo373jJAb d5iqLLEKvvcxuJr5oVtnM1 7xw4V7BqbxZ66tkTIlMHJ8 NLKzLDKbtFRnILTqGSJ9TR ZipAXgN9fmIWBtWV5rxfai EFosDDzgZCRcpHW1SRRkmI RlC1LnGIIwLPfqQCJxrna3 JqNkZo2euUXzsZlnNVuqOY HrFUDjOAxdGYCqYyOiV18G IT6COQXFWBXvDSKIODRYS2 RKBeIMQJXKEGDDZKAmH6sA K6USRU5DYQcbzHHdXDPkYU 3dVT1UNOUNSqQcVx4DWR5G TElHTkFOVCBDRUxMUywgQU TKNs1DOSXJAJ4MZBMrRLDc AWMax43rZB90VDhjIPW3e4 xydGYxXHNzdGUxODAwMFxh bnNpXGRlZmxhbmcxMDMzXG O7hzHrUROwOPnaXNGoSHky Ww6wjXYxoOxnMmPdBXDag8 hazcJRhzvwzZy1i2xpDHNu SqT8iOApPHatQ1bmvjUdtQ PqBIDsBMu9vJ93OMBiwM0t eBLfVIkqrjXgUhY3KKvlFA AgVxD4RZNxqWThFVBaJ8qm ZWQwXGdyZWVuMFxibHVlMC C3rFjdg0T7gCYdhDJqoMea HsAcUhRtSsKHe4LbLOi8dO fbM2NgPZVpFjB9nYYrJBSt QQsqMTHiVEMqujX2nV49DQ vcijB9wUAjl7Cwo12au529 wC8whKGjETI0QKLuHBGxrU PfMLYmCQJ4OCXszXWfK8oj TTKpBH7dffyjYEosTSxfTF ZisTV3LNVdhSLgL9QfEFHd RPxtOLSlnyt7FuUsCu5yrR DmuOdrKOdgg2rxy9hnhGEl Ftt9ASJtUpHxTrhlZCcag6 Fbp6nwHRLaqu0rYMG0kJTr kJdus0Y5rWGnNPFujECpUJ OmJR7vtCSqYWOrhX0qptft XHBnYnJkcmhlYWRccGdicm MeFc2hdTqzXSC4CLzsD2dg mM4wGmB2LDzzN2mdlI4nKL c1GQilAWGocWK0yvX5EBRa pLKgA6TvhX4iDUWuGQ8vrc b9b2qfIFF3LTaaVSYcHeZ9 qfG0BTYxqCLfFBHcaXrnDJ prq989TOZ3VgLkOLIvo3Pt D3UetFhfZ38rbFbjJ75eQU TtsGafgA7umEisqP3oHpGw JbNjITzwuAfhOT4rGFDqG4 lpiHGuYAKqNZZoQ7xaJhOb xW2xcKzbSGoulyKdCKOfNz r3HIEuzOQnDQKrIou4MAAm OTJsX31xznsoQSX6uB3ei7 rtu4LdPEipDJN5WUKmf62q ZWhapjH4CGhfTx19WRnnKI R1JPhgsODekJ6= COMMENT (test code = e0vroGQdJEZdjAG7GsYdBY 4999) Kwl0aia5ZsaXKobBMuBAof tXLfcnVnuj38zJA3fT08NY 6aJBYrUcH6KOAovqV1Qxb5 REEdESPjxTRaU481q8zwe8 uyzxRsuXC1zBjkHVSggbqo OwL2MEmaLEJjhnyqKAj6KO miWLQtuBS5PNOywRIfZ9Wz AAYhBU5mudh4LWV7DFpkQM RuKnN2LHAdkFGeGHNuwFgi QTuki190OUN7QvXkNKTmty WdmAbatP9oScSnOTQPKYOy kiU8gCC8HL2vTRWtIAQ3gn 9uaWMgbWVkaWNhbCByZWNv thJiTLfyHQacovkftK1nwh Cyj4tjctYoGqPaXHP6OZjp dmVyIGxvYmUgbWFzcyBhbm VzKQ2fEU4ss2Hks2BgOiEl eYDxXFMnvZ3kUB6aYMWodh MqSBDesHPpa5NvrzTmDhHe MAV2IF6dpH4bDWPmlXIjsR L5hOUhtVP4ILdma2JzCvvs pSYwHARqt60de5WnlDPqHX Qvx9Dfa2OxxaTmahmdKIop TK0ofSWgMlKIgMEkh7Hqzu DpoLbkILEzp9xnprLnBIVh ZWRseSBhdHlwaWNhbCBjZW bcriN3tBCbWE96X8ccQYDh hMWnYxCfzuCraKHbHFi1kW HozYL2PSFojYCyigFwky3p YXNpYSBhbmQgaGlnaCBudW WlVNFlERRgYAU7aY9voHDp bWljIHJhdGlvLCBhcnJhbm gcYKZmqzPfa9iet2g9RPQj bHVzdGVycyBhbmQgYWxzby TvyK4vvJyiLFhhaUVup9Yl LvQKa29cBWZdhAjbFKWvm2 vbkN62ipPcfMAtkXjst00k XyV2JQZ3b6trgx2dP1Bzcx VbpGrjaYxaTNA7vT0rm8z8 HKWzeyYfAMVkTEP2DPJjIG VzdFXvIEFkOLLjeW0vfSQg uhAcUb0vTK7szMwgjaClZ0 ktMIXtBU9eB3LnT4aea97v TQFtjvY4iDUrlamlkTGdC2 gejehfTTtpn7G5pVpjDc0y nCAaOCPfusGUbQKjc3JeWT ulzsZpDLQmw6PfN6jkNLuo fEF7oZ6im7h0BXRmgL7jpM MVRgCiILL1GiSvSJdcBAQ3 CPT Code(s) (test code z4znrPYbZQFwmAP2PjRpPU = 6015) Vth9auv3OdnUJwtYIfFPsr tTZtecBzph73fXG2dL36BL 3fXUTjLdZ1USPvvpM4Upb1 ZOLrPAPtbGEcD790j2bgm2 rijlOvhTZ2sDviBNNhykmh UmH7BPjiKDHctkblQOa6BO jxJNCucDZ9PCWngBQqI6Sz EOGvHI7cwei8CZY0HAhaEY BgZbV4BJAgcPTkDMHltMgs LYazt823PVG0UrCaKHElzz IfsSpxqM8jFdLiPCQ4ZBOs OFxwYXJ9 CLINICAL DATA (test l8gpoHGeMKCvyXT6QdPwHO code = 3355) Bxz7rmp7EjzHNtuAKtFEzo sUQnjwQnxa05cYC8qW53TV 7tVTBrJcL9IPPrtnH4Yjh1 WCUrGXUprEDyD585o3ntl6 gchcFzwPV9IWBuWQMfV2Oo YN7nZTNrlXAwY53egPNpWE M8IRYsVQLmmUNcHHAjXVR9 CTIjwUTzL5fiYPUhDD4vql vgBKqsQYrgJGJnnJM3KHAa xFGuH9DgDACcQQwcPKFtvq d3LyQgWj4gbFUdsJpkQEpk YXJkXHBsYWluXGZzMjBcY2 JyIUvzQ49ntKm8YPAwnMZy tbosf2AmePrqnE18nmQag2 EjB2obfAEyK5jrG3YxD6cs i95pTaZolFgdyVpbjHMwxV afTE14VALhqhacb3A6HYaa aEnhdCnsdh7mFPDtpKImy8 ZxVUL3lLY6nsLhAbUaH63i cGFyfQ== SPECIMEN SOURCE (test d2ejpLMwYELzzYG1XvLdHR code = 3377) Kag6ymq2FenFXiwFSoZKfl sHFjkwXuoj24oIU5vO49AA 9pYMRvNoI3SOCmufB0Ggk5 FEAiOOBgoXUzR898d0gbk3 tjqoRbpYR5yLetYPCdrwjm WmK2PYpeLDCnhozzIRe1NB auJAQzcUR1RKVguAGpK3Yc OHPuSS7kwgb3NPR6ZFodJS TnOuI1VOFwkKQdSMVrgDtt QLbin430QCF1MsBmKKJshg GaeVktcG1dHaZpRFKIL02T A65vUfnFQPGAJOWSUFEMUA lSQVRFIEZMVUlEXHBhcn0= GROSS DESCRIPTION (test z7xflLNnHDAtmXAzPmBaTZ code = 3366) HyOSCew6ixGHSfyUJnBtHc MzNcZnRuYmpcdWMxXGRlZm Njs7foh318fTHab6oeQRNw AkE9pHGuQQRwsGLvB562j6 cus7cbxuXnrNX1LSQgEAA4 FMeoodSqvyM7RCmfwZAoVs Z8HUbxtnBxQLmeqiFfwtJs Exa1LBWiS333NJE1dEvnc4 vbZUN7NORhGCYxKmBuNo9j mBPkY673LZDfRRNKIRKpkG t7KERxtvLigkSdaARPj158 Z494z7nrYSGkeqQunNqEqu lay8pwL481SEZuhKKdegIe JmBgQEPmfCNxtZP3UQDfUS 7zpdpqLxBsAV4wpdwzXlNm SV6wbox1SaOxPY4vllwgTk GfZQpmSVJejbelBJFik5Ao inmtJH7lR0Orx3C2zM6uiW KoIDHxhQMiKnIzNOPriy3s sNJsREdmk4MyBHT0cuZ5kS AljVHzTFGdZA88Gekjf6La EtnhDEZ3IQXktxQem2Qya6 gvFxBnqlTuI7tuQ1WsFPMf AEMcSSVcEeCfggMis5Ntf0 BpuAHypRm7g4faRQQhYFAf xDtre1caEZD5KDEnX6Q0gX Cno3nuGRggUTWyaPP9wlwn XOklUFLifkG9yxrdNIklAK NagBW1uoriPHfzNYMaQxU3 hggxSPzqERBbTRX9MGnxx6 68LOL1QSpjYoynVNmjIDFo bmNvbnRccGduZGVjXHBsYW luXHBsYWluXGYwXGZzMjRc zHnnxVhanD3cVvVmAjVaQO xxSQ8aCACvR2hsoDUkWFZi HTAxX3tkMtKibI1vwNvhFY qlxoOtEXFrS1GxqgIsSDIa QU8yVTrioFfpdzMkqMLroy humFIhAXHxTkt5UJBnvkF1 CPBjUUBsesHnKAKeI6o7i7 EauP4pCFcpJOO3 MICROSCOPIC DESCRIPTION m5vprZMxAOSbfRM6XaKxYM (test code = 3371) Tag3xbe4XpmDCvuAUsXXfe yIAivrPwyc71kHS3pH95TH 1jRMYePlJ2TRGogvW4Vuv9 ZCEkYJTdwXDtR792m6iiw8 wsjyDphYD5pPtbUCXrwjaz FjH2RUxxLJTnppvsIOx9EJ pfMEQqwWT1JEAyaCSmF0Vw HZQdOR0yhor1QMW9WGbwJM NkEcQ5BHZlbRFcHZAnfTcx ERjec736SEV0RfIeURElzf EncApprB5gBiDrBXYQJHPu q5VyMASeJHyeZOD7 Gross assessment was [facility] performed at ([facility], = 2777) Department of Pathology, [address] [place] [address], Technical component was [facility] performed at ([facility], = 2778) Department of Pathology, [address] [place] [address], Professional component [facility] was performed at ([facility], code = 2779) Department of Pathology, [address] [place] [address], [facility] 13:43:33 Test Item Value Reference Range Interpretation Comments Case Report (test code Medical Cytology = 104) Report Case: [id number] Authorizing Provider: Rosa Whiting Collected: 06/07/2021 11:18 AM MD Page Ordering Location: [address] Received: 06/09/2021 08:38 AM Service Pathologist: Sean Gibbs MD Specimen: Common Bile Duct, CBD aspirate DIAGNOSIS (test code = [id number] 3220) FuZzEwMzNcZnRuYmpcdWMx IHtccnRmMVxlcGljOTYwMV awtdZbBFDdqNTyG3Nkmtdj BJhgIC8yXO6hxNrdkSAlpL KeZHBxUnAqd9nrk117qUMu n9ajQYOYyxxoiAy4ySabM7 3ud2N6MlqwU31ysWWbNBS7 QLQaWNJtyPPqYDKjRJY0XH RguFWbH7jgOSNhSN3fhcpr GUioYVhdYUNieKV6QKQpdL NvK4TyYJTlPSduHMWbyey6 SeYnPk6omUZpxCyjVTexZZ HmKQFaEDqnAOHxArPfZ24X HH6GQQLPXDIaBLVIAIBSF6 KLPeCLYRGQYSXZVBXjO6qV E6ZGUT9UNZffiPBnEMJbMD 8uVX6YFGFVBaEyXd6TUO5Q TElHTkFOVCBDRUxMUywgQU QPKp7VSXEVKD0NMQXnPZQi ZVNmv23nMR63WIqpDZV8g9 xydGYxXHNzdGUxODAwMFxh bnNpXGRlZmxhbmcxMDMzXG F5ukItQFZlPGmkIMJgFXfs Qf4cwTAdgItuTtCeXYBzw4 gpjaKXgofzwDi1j1rcHRSm ReA7oHGkZKhnA0mgclRbwA HxIRCtRQn5wK65ZUBxnH6b hJFkLYlrhiBxQjC4HMeuES MsFjV6LIJdvDNxCTLiW2dw ZWQwXGdyZWVuMFxibHVlMC Z8eXjla0Q6eAOakFYvkSzd PaUxFtWpSqGXt4SaOTf1mO zwK5XnXEAvEbS6iTWsMXJl PBrtWSLgLVGgcgU8iE10QY hjetM1yWXjy9Gdh01vd750 jO7lbKRuCKD6NYIqASQugJ YmRYJeAQK4HUYnpPZfE2wd GAEjPO7pzxlxGTnhDKiwJH UffQI0LTGsrVTjS5AiDPDm MVxiHYMixhu6KjFwHn6lhP HeqTbdOBnqt2htn0hxfFNb Xae9PYRfMdCiUthnBMbfo9 Tod1cmFFZbvn6aXUL2mVWx qBlhf3B0iOAfTDAagMUzOI XcQD0ysUJfNNYonH7agbyu XHBnYnJkcmhlYWRccGdicm VeEv3imOrnKTI4YDysD0ef pF2uWxU5QKsgA2otuK5fCN u2PFzkYHNvpJL8fvQ4NFIm zFYuB7NfcO9tJVLhXK4ubb t4h5zaJMO4NXfgXISmVsA8 irP1YMFasQHcKZNnjCrdUJ vsr983XMT9HeLpTABtl3Ud S9HoxOsiI93ilOklP91iOJ MtfXnxsS2ugBfprJ1eZsKe RaBiAQpezVyeZM6oDROeI6 qykDEtGQMdOELeZ7uqAqCl wW4mrPtgSVcghkKsDVNiVm s4SHRdgOPhOMZcCcy6QAWr XKRjX58kxoemQDP1qB7oj4 sft3IzMZrhCFZ8FNUqb24t BNaktrL3EScwSb65CGbiZF G3CYcdxOFucJ3= COMMENT (test code = f7iouVQfLRYtjHK3VtTbBS 3359) Ybi7nzw2IskTMgpZFfSHwc aPWqwaXfmr95pAN0mB44EH 2cLHEkVjM5BYRozcC5Jhs2 MCScAWWolSGnX107p5hmw0 rerhZyfNS9vOceMHUuytyp SmU0WWftDQKxndjlAUv0JM jpDYRtlPG6IAHgqSHpC1Du TMEtYX8hjuf4ESY1ZSlrSA NjXhI9FSEkgSTeLWWvtRsa PRjie482ICE6MnYqRLJivo SyfRkntO4dJlFhGNKHWPBj eyF4qZZ9FY4oTYAlTOP6oa 9uaWMgbWVkaWNhbCByZWNv fgGpYTbrJWbleqpulL6irc Bmc4orcpIiUnXlQYX4MTwh dmVyIGxvYmUgbWFzcyBhbm GpQA5ySO8ho1Vay1RuKdFb bWAjWVFeyB0uHQ2hYUCizn DuMMKafBOef3FzfwRiXwUu DUW2MB1eiK4wYXUqvDLdnP O9uUJvnEN6XSasq9PgLxuo dHUjIJGht13xp4YrdBHtYR Qte5Oco1RrgbPbijvyXMpf EE9gbPKmUiQHeREuq0Itgi BdmUhsLDBld7cwdnQpEJUu ZWRseSBhdHlwaWNhbCBjZW zumfB7qHBcSM69B6mnXKWx fAFwEtWuiwMvlHFbBAa0gF YpaAV7CIPhkMHenuZrvg9q YXNpYSBhbmQgaGlnaCBudW NpNPVdQOOzXAV9mI3lrWSa bWljIHJhdGlvLCBhcnJhbm spCCNyfaTtq2eyh2x3FTYg bHVzdGVycyBhbmQgYWxzby WkeI8qoTxmAQngsTDwq3Rh PoTHi21yHHJbjZixSDVac0 mjeW96pfRljYFtfTpxa22m HnU8ORS0m3ozkw8pE0Cloq JmmDmeeIlsQHH9lG7bm1o2 KRTjjxHrLVGyGIB1SYNaZD GuyYIaHNGmZFCdwE3ivYIq dxRiTl8rVN4ggNxouzHjA2 vnIKDqAV3gH7NkV5mqo82m VVHkthV5pJGavequuUZyA0 dgvqcgCYnkg9X7dUezRh5k xTWvYXRjdvMAbXLub2KoSF dtdrTgTGBzv5XyE8nwSEtb aZB3dH4wl7h2ZZUcnD7blM RTFyLpEXE2VaIfMDvkJHX3 CPT Code(s) (test code m2cmpIEcSNWswJO2YnKkUD = 3357) Gup2dii7LkwUObkYAfFRkt hZUxdbWsua12yGZ2tC49GG 5eQAEgVrN8CTQdocL9Xhi2 WXXcBQZlzAAmJ490i3mgy4 cvmsCrqJG4uIobMMVuwjsr TfN3MWqtVIVcqziqKLp0CX reEOZfzKK8EBThnSHuD3Rr HUFyDQ1fojg8DHD5KXilJX BfTyU1XUXpePPfKQCjrPoh UPiza211FOS1AaRoUSFbrj JgqTfzuN1dZdVrXBV4FOSd OFxwYXJ9 CLINICAL DATA (test t6tijURfFSKgcLX9TdEsFF code = 3356) Msc4tgv7ZkwLDarIJsKLzn aWWnemRvtt71hCL7gG09XX 8vKCAqZvX6ACQunsS0Ajg7 BYWlQTZsbVNtT540s2vqt2 pgsrWepDP3GQJdKLMnA5Bh BC2qBPBjdNQyG30ltDCsXQ Y7RLDgVVFpsDWvJHItPMB4 NYVqtQAvP6qvIERmOE4scm ivAJbzXUtyDMYlgQO3YRKx mROyQ3EvXFCdFBfgMTQrli r2RpJsHe9ctTQryDimELpp YXJkXHBsYWluXGZzMjBcY2 FoALswX46ixNe5FDLfgWMf mnupv9RpnEruuN19wuIdc9 MxC5abmTImC5lkW2BbI7ty u31sRaRwxRskeFfulBCvxJ hlHV30NUHzyuhsq0Y1XXgl mLendZvzdl4eWECwkMCbv0 TrMVX3tUS7yoRzCwAqG71h cGFyfQ== SPECIMEN SOURCE (test l3ffgJGkUTAhoAB0TaHmLR code = 3377) Cas8apo4UdqOQnhBYpMNwu rDXykyOyiu27sHT0vY22UH 8yOQWrIcF8JVSuvgI7Gcy5 NSLjCNKdiTYdN001i2ohd6 biegCjtSN7iKxiBVBuirnu BaG5RIexQCScegboXVp2JQ emYYSkvUW5FWFwsIJyP9Qv ZWJjKV1mwxh9RGI0QPyqHM HrNlG3CIQieGFsXPXomAmo NNoyv673DZT6WjJrLJFvqh HxbGzarX8qNvLrNMYNN42X L62tAvzAIYWAICYIXWRUMI lSQVRFIEZMVUlEXHBhcn0= GROSS DESCRIPTION (test z8honRYcPBDpjHVtAkWhRG code = 3366) FoWXEng0kbCQTfaEMdXyXt MzNcZnRuYmpcdWMxXGRlZm Bln3zhb173cYNqt3tbVWUd AfP5kHSmQXFkwDUgW213k8 axn1cuhbWnhJU8HOGvCMR3 JHxqiyBrtrQ8BPzahQPaYg R8EPrvuwEaLHsdirUmjvPx Dok7NJGcQ320XUB3dJuim5 lbZPI3USCkXLRgAaKiSb3g oQEsQ034BHImUWACDQMtnF n5QMQjeqNwjhQegTRGl166 C775m5jpIKDxieVgsAiUvw odc9nxM866QZSvzMVcuiFw GqUvBBGwfUQsoUP3DCDwDL 2nsbvgYmZrPJ4pbncsXsLe XV6xuit3LeTbZW8nkzqhOj BnZArrYCUoetguPFMrk1Wd hmwxXT1kW6Nof9C2zR9fzC MrXXUgnODfTqRlCNNjbr5x dNVyPMqdj7VnMGL8wsO1vA NvaKUlDFPzPT65Pdieq3Bx OljhUFS7WQQiqoAzk1Fsj4 gfSiPztxSmX2quL5KuLWSd JLLgBEWlAeTydhWlq3Psm6 MzqKTsyAc3w1hyNCQpXCPi iBptx0vkLBX2VOQdN9U7lJ Vhz4qwXPspXTBgsWS4zmzv ROukOFHuieX1pfwqSZalIP DumJS7gxcgXFesBRKrSwI1 ooqzBAlgJQLlBGU6EMtqv6 86ICX7YCuqTyljAPrxVMAq bmNvbnRccGduZGVjXHBsYW luXHBsYWluXGYwXGZzMjRc sIwozOvbgD0tKaVaSrZyIH ysAP1eZDNtF1fqlNAoOLIc JNHlD0irWzNmtY8ttFisGH fuxmMvNHJxK2QzozKwHJBl XH4rSBdfbLiujiTiyVVnjf ixqCUzIRDqChy6TEGosrV3 ARVjYGQiuqAzGXLiO4x9v8 LsrM0dPDgxTVR4 MICROSCOPIC DESCRIPTION x3lbrKPgWACcyQF6LzNuUL (test code = 3371) Gdz1vol6WdwEKesMEeZSik jQIhejJfmp91uXS0tI94PR 8rJIKqOlP4PTTtvbL4Ntc1 UWLyZMHalTOdQ990p5scb9 scgyYsvIM2wMzqPYNxpadq HsN6YQsmSLXvypryKCf4WA zpMBVqdNR3FSIorARcJ8Jx SOXuDU6exmn1DYR2TTfaVZ WcDhO7PLFbgBWdTZDroMbr SEuxn456OCF6FzPcRZXois DpwNpsdX2kKfUzIDSZPBMn g1UiTTAoDGifIBF5 Gross assessment was [facility] performed at ([facility], = 2777) Department of Pathology, [address] [place] [address], Technical component was [facility] performed at ([facility], = 2778) Department of Pathology, [address] [place] [address], Professional component [facility] was performed at ([facility], code = 2779) Department of Pathology, [address] [place] [address], [facility] Test Item Value Reference Range Interpretation Comments Case Report (test code Medical Cytology = 104) Report Case: [id number] Authorizing Provider: Rosa Whiting Collected: 06/07/2021 11:18 AM MD Page Ordering Location: [address] Received: 06/09/2021 08:38 AM Service Pathologist: Sean Gibbs MD Specimen: Common Bile Duct, CBD aspirate DIAGNOSIS (test code = [id number] 3220) FuZzEwMzNcZnRuYmpcdWMx IHtccnRmMVxlcGljOTYwMV cqhrVnKEHcxCGbF2Udrvbz LHfiBL3zVW9chSdfuGYrmG VkMBZzNrFol7dmd108mTTx s7jlYROJldphcVs5lEyrP2 3eo2F7EqzbV37cgZLlYQV7 KSWoPZXbcSEvRKEfLCY9SW VwaILpE1uoFGKsRW3nloor NCgjMWjyYYGqlXE5UBXikW MyP1BcUZHwCAvyFXTljqt5 EuXsDq0yxWYdjJytZOlbRT UkPHJpEJeoFZRqGvIvK01B JO3TVDQGEPZdPADFXNXGT8 WICpDXYWDBFDIZLYBeX2sU C1AQHM9LWVmvuGOdIZNgCH 8mYI9BGRRLUqKvRl3DFJ0N TElHTkFOVCBDRUxMUywgQU XSLf5ZCAPVND5BQUTeCVNj KSYso25yNR54FXogWVC5y8 xydGYxXHNzdGUxODAwMFxh bnNpXGRlZmxhbmcxMDMzXG W6plMvVTPuGCrmRDLgABzi Mv4kuYYeqYwiEsKeOBJnm4 doefKJpleliVd7r9pjPPOn XkT4fMGwANdtU0tbaiBtrY KdGTPxFGn0vS08BSYulL2k fKKdZCfptiMkQzI0VZwnPJ IxEtX8USFqbMLxJNGkK0ff ZWQwXGdyZWVuMFxibHVlMC R4qSsqd6K9yHDwjPQfsWpu EtOuVyQjFpFGj2CyPEy5sY epX8KrJFKlKmU4kUBkORAn JYgzYRMmAEFwrjQ7jP09QP ohnfI9dBKtj2Xfm22ta977 sV9hwTPqAZG0BXEoGDPziM SeXBEnRHQ0EMXxaZVcQ9un LGYwVU4jbyqdSYnwRFsoUT GuqBR4FYFyjQSzB4ZbPEAh DIwvPZBerxl4DoZqTh9yoB PwqXwuNUppq5yth5hmqYYa Bjy0HHPoKxAeJuerRPkua4 Vja5lbVOBrzk2iQBK5lTTt mNnqj1O2lZAzRENuuLOwVW CkEU8vcKOoRWWfeJ7xtgmz XHBnYnJkcmhlYWRccGdicm IxOm5unXbbHTN3TZitN9pa rZ6uZgP3MJzbK8pqaJ8cUL m8ALesISAuwGT6erC6CXDg gUYsH5OtsO4oRYVmUO8sva s7e7vjHOT6LOozZMXkXyC6 dfP8QKYufKXiFLTxhNshTB dxr805XYX7WqOyJLUgk8Oj Z1BcgEtlC85sgRmzM64dER AkkWfjxF6uvHuhtE3oGgTl LbHsKIdioXyiLJ4oMASuL0 optWAxTJVhIITtW7fqPeJq oX2knHoxSMxhfwErIYMyTa b8YTCrrDLwQBQaOoi7IKKm CRMcN81evlrhSMY7aS4is0 foi6XaZFanFIR0VYTzc80t RUfttzR8DLzpFt66FJqpMI B9KXaqiCYaqQ5= COMMENT (test code = a5ryfDAmGCVxhKG1AlSzWJ 1643) Kem4tjd1KarQLfyPLvAXda aCPioyRokx62pRO2oG65VM 6pVSLiIcL9UYXbzsQ6Fpq4 XJSkJPBvdRJjS789y1spq8 irdnKrhKA9aNmyMGPevfsf LxP3HScbXKYfsbvnHBu1ZD lkUVClkQX8WVXalOEsE3Bs MGVpHB4rjlj2ANM7TJimRG TkIaS8EEUihVGoZFMsiIhs ZVkis261DAR4KuEzCNTbkl WgmZrtuK5mRtNgTKMTPNIn uaX9vXL3RM4jGKTfNNT0zz 9uaWMgbWVkaWNhbCByZWNv pcQyRAerNFjndnmyvV7rlr Kge3tpshAyZhRiFNX2XHfx dmVyIGxvYmUgbWFzcyBhbm AyLL3eQT1hd0Hjm4LjNbWu uGLbITDtuS5iMO2vSMZhtg KkRAOtsYBji3OxjiKtNcWh WVN5YY1zwJ6pKCBhnCNapG N7gOJblVN2KUafi0WoNgwf gSZuDFGhp37zp7IzcRXfHT Ydg9Nim5GleiSgyuzzHAst SA0nnBUyQqNQpKWcv6Fopm FnqIjwCJCub6lgsdWsGEBw ZWRseSBhdHlwaWNhbCBjZW ojorC8pVZmPP79P1vvTEZb dYBqUwGtsgRlgJEaLGs7bC EwdGB0ATGmwJPfnyEcqd9q YXNpYSBhbmQgaGlnaCBudW EuDZNhFUDbODU4tR7onCWi bWljIHJhdGlvLCBhcnJhbm ycSDBpdhPjn9yhm2r1XYZa bHVzdGVycyBhbmQgYWxzby CnbX8tePsgMNvmkNTof7Gu UcYSg90oNFHwhZawNFNhl0 gjaZ86ymVamZBqwGgwb70q YrK1ISB2k4fqlp5zD6Xeab QhfQcrcLdtOHE7nK1dh0w1 LDZxhdTsYWJyDKY5GIOqOP AsnRQsNEMmHYWgfC9ncRVi ahQrWc1oSR6vaDgqqpJeX4 kcAOGcVF2pL2JgD7yfl02c KKXqeaB8rPEdtjhlwVOiK3 nqytyzHDzmu5F3lGtbUm6n gYApILMfvgLOkYZof7AnIQ iqkyGdNJBel2BsD3gbCIlo yKJ1sP6dm8o9XSTkuG5smP CAPaIgIST5XtCfVLpiBCN0 CPT Code(s) (test code l0calGZtNIOnoEI4NlSnQM = 3357) Hmt2ntm4FqeTEqwEAxJQxj hAUwgvAmuj09bTV7qO77SP 5oDUHeBoV2VHKlrsD5Ogs5 RZLsOZChrGOwM410c3ian1 svkpFpnJX4aTqyCWWdotdy IwI7CEyeRLLrnvawTQt0SL dlOGPzjIZ6ETWcvUUyX8Jc IMWiYY7mupa4GIO9SVdyVT QqSoX2BMDmdDOvWCLfiZei LJzcs110PKT6BeBwNZEigt NloIdhsR9hFtNaCNE9WALg OFxwYXJ9 CLINICAL DATA (test k1uzgBBmLLOezGE3SsRlYO code = 3355) Mwc4bka1VlmREjwVMrCCld xUMpvbLqgj02vLV3fP54IE 2qKAHiKlF2CNRdjkX9Fxu5 XLLhHGCcgMTlC878y9zsm8 hkoqGxnMD5QIZfOILjQ7If JF8iSPWuqBBnT03whEGtPD Y0ISMfONSypSJoCDBjABW3 DFMahUPcO6jkMKCwJE6xup gfVRanGXaaRXWqnTN1JIJl zLHxC1EtJRFtQSuxTNUlwn o5GxBdYu9jzZIdmXbmOWew YXJkXHBsYWluXGZzMjBcY2 QyQDyoD30isUb4XLHmdFTj nvfme1RxuGidcP68xgQor5 LyT6dadDOeQ9piS4McG3nc f90pYaMkcDakjXaszXFdhO xaTF68AXCpvfjuw8X4BQvp fKexbLvocs5xBPNilYTpu7 PaVJR2uEO1ejRdGuVeM20m cGFyfQ== SPECIMEN SOURCE (test b9qqsGJjHWQelFY9NmLwXZ code = 3377) Ryd0rgr4WhnEKlaSAfMDfc jAGidqNbtv52ePW1iH38YS 0nZADlYsH0OSMchfP7Asw5 FRVwPIRvuTTkI383c0lte9 qgtgOihVU2bFsqMRJqnlrf FzH4ORilQMUltyqpMCx9MQ hjPKHyoZT1TTIwzFAaN8Mf MMRkHJ7zohw4WXY9RGqpKS PtIyR8DCRhrFQdSJAseLrf MJjsx317SFQ4EhRhOZVqks YboXpglU8dKtCtXNUGR45L M69oAoaXFSIITXMKGSMOQI lSQVRFIEZMVUlEXHBhcn0= GROSS DESCRIPTION (test b4uovNGlWBXvyLSsNzGjGR code = 3366) ClMQXan0okICPwfEFwBcUy MzNcZnRuYmpcdWMxXGRlZm Mbi6xeb075wFAqt8gmWEJg ZzU4dKRvZBMviVPtG428w5 iwp0eahuEptDT8XHXrATQ2 KNreuhMpugX4GKbxwYWuCc H7UFlmqbHiSRrybaErhgBz Qbm1EOFuQ270HLM0nVjma8 cwZIT2SWRqQRBlHjXlMz1w fWAuA417RVMlYNPNYAQwbZ y7HJTcnvZjytHpgPQGt219 W623t4tzTVLrjxDgtHiXmv kmb8tbK033JQHufKXszvKo VoQdAKCngQPkrWL4FGUgJU 2orzbyDvNzDZ4rsghqYvRv OO5rqcq7AnDxRR7wqwmoWt ChUBcpHNMffmkxELIxd8Vv hzbkJW4tI8Mck6H3pE1enE OuAFVdiJMzKvCmCIJakm3q mUPzPGaso2EyVTB6txB9oA MydDAvISZlAO10Uwphc4Ka IzkkUZQ5GKDwuvQsz3Xkr0 odTfSvbwNeE8dtD8SaNLBu RXPgXYLdYmRijxYge1Eoh7 EkpYDiuLs1i2uoJRTbWVSp gNcap3oyRNJ5NQThM7C5hF Nna2vhHFimIRRsfEN4phgc HNmjAXXzonK6oblxINjhLF DaqMN2aetbUDxcGIVsDiH2 ziexRDqpYHBmLAH5IFcnb7 00MXS3EEudQjrdQPntUIFe bmNvbnRccGduZGVjXHBsYW luXHBsYWluXGYwXGZzMjRc dDnevOavxO1eTrPvIuUgJO blII2nVMOeY0iqbIDmHMFp IGFzU6nwCvTdzA4rpKlyFN engjWoUUBaZ1FxeuFcDWJd KK7cQBdloNqchxVirLNjma pghMTxNLBnKvo5AZJlgsE9 WPXtRLGccwVtISQqD3m3m3 KkdK5fKMdxKQI5 MICROSCOPIC DESCRIPTION i9zmzXCzHOBxlQM3IcPtUI (test code = 3371) Acv3jmq8NheJXneGHfFZvc xPUsizFhoe95oDN0cO88QX 0gVISzUmB1NQRwpcP5Nzy7 OBPeHNNstRKvG465f4qiq1 cqigGlaED4pZzgUXMvhmlv SeO6RQlvOZBzglldYXf3FW vdNHLehUM2OAEsmSVbQ8Xp SRJqOB8tqqs6KLU6RDvpXN VqIhC9HZMwbLPgEMUxjBcl NNkhi450PAW7EvAoLPCzvo EiuBbjkC5jKeTwLSRCVKZa y5XjLDGtPUdnDVY0 Gross assessment was [facility] performed at ([facility], = 2777) Department of Pathology, [address] [place] [address], Technical component was [facility] performed at ([facility], = 2778) Department of Pathology, [address] [place] [address], Professional component [facility] was performed at ([facility], code = 2779) Department of Pathology, [address] [place] [address], [facility]:43:33 Test Item Value Reference Range Interpretation Comments Case Report (test code Medical Cytology = 104) Report Case: [id number] Authorizing Provider: Rosa Whiting Collected: 06/07/2021 11:18 AM MD Page Ordering Location: [address] Received: 06/09/2021 08:38 AM Service Pathologist: Sean Gibbs MD Specimen: Common Bile Duct, CBD aspirate DIAGNOSIS (test code = [id number] 3220) FuZzEwMzNcZnRuYmpcdWMx IHtccnRmMVxlcGljOTYwMV cxvtQtIRRojIXvW0Nmuyzs RNevWS2aJZ6lrVrnyAPvsB KvJOTcUmQan3lng668iXVe b5ekDQQEvllgoYp3oUkhP4 2gs6Y2PswmQ59txQQlXCU2 CUEyTIQdtUDoARThWZO4QC JljQKzN4rfKAIvRQ0gcvzu JKpbAGtbZUDewKH8FTKuoM RxE1BvRBRnUTytOVAqgiq6 RcQeXw4dsIRptGxeSGcfSX CiEUPiTUqzAMMrCtKjX29E OQ2ULRRZXBOqZUVALHAMB5 VAGcTSVLITJZARXRUbT6zC C4MVUC4ZZAdgqBLwTFPjJO 8bMX0YFOKMBjLxAo2IEE5U TElHTkFOVCBDRUxMUywgQU LQRg7AKNQYVH0IHAJdKGAz TVTgt16cJY39WPziUEQ8t0 xydGYxXHNzdGUxODAwMFxh bnNpXGRlZmxhbmcxMDMzXG C9dvBwDLWnZBcqOWOeZSze Vq8rqWYmoUmxNmRcAWZbl1 fzfnIGohfqvJo9s3prSMSi HpE6vTAxPCttD7dkbsAdfO VyINFuMAt6pZ34UMZzrF4c zPJrIHqtycJaDwB5XHbvHW AnZeB0XJCizYWgAMOpZ1aa ZWQwXGdyZWVuMFxibHVlMC A5aVfdi1Z5yPDnvPDpuKyd FbSeQuMsIoSOo4UiGRa9mQ vaX4EtQLUwKyD8wUObVAOo MNzaIFTrIQFdngF6cV02BL vvofH9kXLhs9Crl84ui597 lQ6fnSNbVIE2DWLiUMReqV NlWZNoRZK6QSAbsEXsW7oa NXEgXR3hugdhMZvgXBbiIT BpxSX3GMPmlHRjU7OsMTWz ICqfNKPsriq5TsWvIz3yzE ZfcKnpNLuof8nrd9uioXOl Ves0RCHaFsXkUmdfQEjju7 Wrz5qeCXIgbp0oLDI2eWKv wKpfi8X4oBCyLTMbnBQxML WhEQ2uyDBxYPAhyA0cxqjf XHBnYnJkcmhlYWRccGdicm GgDe9ugBwpOPV4SDrtY4ou sR2qZwH6KEacW6ocfI8qLU f1EHkdVWQiyHM5tnK5UGIs aUObA4EqbN5lNYHqWO7wbn p2q4bxVLY6KTikQIVrZpZ1 gbI9ROTlwZQzNVKvhNozRV fft496QEY3PlGlEEOfi1Xi L7LypEilR74ltZapJ91gQO DgfCakcO1rlMmpiW5iZoVt PuFnUSirtVdrHI9qDXVgA7 ybmXIsRHMwZOMmU3weIfCr eJ0tuDauBRqodcPlYDNvGh d5SLQdaTMyLJYcQdw0DJWe TJTzS56hcgfpMZV8uG6vj5 fvh8PtVTccMXV0CDZwc08a JWuxjjE2KCtuTt34XDgvHW A9OGukcSJjkP1= COMMENT (test code = i9qlrUUfKFUbgPI0RjXiEJ 8931) Hzz7ydd0EdtBHtoUYmJJkb zZFuqvTpzp82oDX8rZ35WA 8kAVTcHdV1BZDknwR9Qla9 VSBaWLVatGWpV837k1awy1 dwcbStgIX4fHscHWXoswkm CkL4QHcrYRXymtfgVOt3YM qsLHIjtAO8QXUzzIBfD4Do SJXlYR3lwyt8UYI5MTsgFT CeMzK4OEYpgERuQZXitPsd IRtzh264YPX6VxDfDIJnkf QsoTkvfW5tIhZqRKLVHAJv tsI2dLP2BY0iFKZhSRX9qy 9uaWMgbWVkaWNhbCByZWNv ibMjMTksRIoobnsltO8pxv Hvg6edflDjApHwITN6ZOly dmVyIGxvYmUgbWFzcyBhbm KyUK0zFN6qh4Fbh4VmIqWf cOYtCQAqtX4mDZ6bNTBacv SkBLOvyMRnq9QkiiHdYnEt EGT8BQ2tmB0lJBKhbFIgbL M1aCKmqQV4IIycd4JqZegd hLLkDQXda66mp7ElcAFiZP Qsc7Puu7EokuVngroiAQyq HX6msKRnKgMYuZGle9Yjcf JckYyiVBScd0ffajNmLBRr ZWRseSBhdHlwaWNhbCBjZW jbsoZ1vDIqVW82J4yvHDFy fSGcFzOhnoZlvRRxZJz2tD BvmTV2LGMeeMSsfoPiax2m YXNpYSBhbmQgaGlnaCBudW QxVGJhJEXsENO4lQ1elHYh bWljIHJhdGlvLCBhcnJhbm kpNIHpuuOjc6jtp1p3NIEd bHVzdGVycyBhbmQgYWxzby PmeQ3zcHewGJwkfJPxd9Up BhPGz65aULAryLrmXVZrx3 vrcF24dmRglGTgqOepq63t PnZ0IDS8a4lbdz7wT4Jshn TcwOvekWflBRJ3fA7nx6b6 XNZsdxSfMWGcTKK9PHCzGB ZwyDFcVDGvSLQgwO0pvCOz vvLrGi1vYD4viChvhaCkU7 seUBKiLR2qS2IvJ3gqh36u EAEeyrZ4vNDscnqnyZDbC8 zwyyrtDKonz3A5sYzhMi7a lQLhJXTrjpSLwXZvd9BhKH mrywVlCCXjm5DzK9omSHgr mEI3dY5pg5m3EUXnwX1ehA TWPxLiSWM3PtLvXTedHUQ2 CPT Code(s) (test code m4swmBIpXOWzhBF0RtIjPV = 3357) Tup9gwv1QayOJmhLYkRKks rKLbbcBugv92wDT2pQ16AN 4bUGSeLjI6EDYtcpG0Iyv3 RJFbNNOgcYLqV104j7fti6 jynnLvxUY1hAflGEAtrpsc LvQ6PXavPWAwttwyUAq5TQ qgKNHqnIA7XAHgtQNzQ9Lo MEEoYC0dxjq6LSR9WYwlAI VoDzZ3ZKEraNLzIMRxoXvd AEqcw634SXM9ZiMhSRXhxa KjiMpjuX2kXgFtEIK7LAPj OFxwYXJ9 CLINICAL DATA (test p6mwmESfIZRkcUS1JyFcNA code = 3355) Pgc1axt0ZnvOArxFZrYMhn nSMymxNuwj04gKU5lT99EW 0yGFWpXmR8NRHpsaG6Tkq3 YHXaBYJizUCfP240e8yro7 lxfpIezNX5RRLaIADmT3Qk BC3dKFFbhWJcP48ugCWqBC C3XIBxLHNkmFXbTLBlFNV1 UOQxrNWwN2qfDQLtRW0hqd ksWImgBZdpOJOgjGZ5QFZi qUOzN5BnJKJvHWqfBOLewe u6QnAsLb1dsVXrhTogYIiw YXJkXHBsYWluXGZzMjBcY2 YyOAubW80hdJa6RSPfwEZy ndnbl8RnsXysvF13yoWnd7 WzW6xoiEYfD1rtH8LrQ3go m88tRlTsfTdopYltjKOvvT szDE40XJBvwxjlw0X1MMfp jYgorXobjv5dAKCulEHoa2 HeJHT4fGQ0qcYrKfUpD65m cGFyfQ== SPECIMEN SOURCE (test p9zxaVNiMEPfhSK0GyPdQD code = 3377) Umg2btr7XohACosVToLLyd jLWypvDlee92qMY7oK53YS 3gKOZsKeW9HEChfeB1Bll4 PPJxHTJorAOsP946c6fjy4 ueoxLptGY5fYwcJMSrxcey StK2DBneQKAypbdxFVd8WF cnGUUhyYU4OAHcrSXbY1Ak GDZhLR6wygl4SZC8FJypYO ZvPsN2KPOjyXRiQIDxeDze ANgyw908LMD9YaApIZAuju KjmCqgiG3rGrQfOVSOU72K O51wTgoCCNIDJCIPIFFIIH lSQVRFIEZMVUlEXHBhcn0= GROSS DESCRIPTION (test f3bxiVPxIOXlgJWcTaWqNI code = 3366) TnKAPma8zcIRYwxOUvKpZv MzNcZnRuYmpcdWMxXGRlZm Spx4huw689wRYdp4phSAMs JkO3zPBkPDCorMWmD226y6 bkg1uvvdYdoFG7YOUzRPF3 YHflpsRptiC0IQmmeLAeUk I6QZithbLxNMnjhjEhsuHh Mki7YWZaV174SSS8vLpjc5 qxZHG7QDUuSJYoMmOnIv4x lXRhP946CGJlQFVQPNLruP s2JASkbkUotbYqwFNXj466 V725q4cnQWUtivKxtLsAjf lwm0ktY242YYWhnJQrwnRl QtBkECFodKNqyAQ9KCVuPO 3wxautDiXxTR1mcelfMuBi KG2lmfc7FdHyGH6jxqxrPx TfTQwfXFUxmzfoEHYtj4Vp buhsLR7qL8Qvy6S8jT2vdO QyVCHmlEPsJoRgQABchv1h kWLkOCtix9QlKOZ0vjZ4wS LxsNBuMQPyXO47Jrbue1Rz GcxmSPU9JJZvpnEzf2Xud5 jxRpUdkwIpV8mqF8AuEHWh EUHiCGUdJnFvvoRlp7Vtz8 QaoGGghYl4v8ojLQBaGDXh wAreh9bqOUL9OXSeD3R2iV Mul0dcVNosTIUonLS2fryc RHaxJYHncyT7ljpfBHwrZA GpjTU1akujNYkxOUNvNsU0 eoyaSTylHEYpSSP6JJyxc9 47KZJ5XMbrOeubTOupRYEo bmNvbnRccGduZGVjXHBsYW luXHBsYWluXGYwXGZzMjRc tHmviEftqI1eNjLbCyAqCD erIO3iEADyA9bhbOZyDHAy IWIfS7tsEpUnwM9qeXehRQ wyzaJhXZWzW2DmycRkVJCz KG6vXXsutRoeedLaiZYbjc lfxHDtTGCtZzl5GMPjcyQ0 WHXfTDExtkOtNICpZ6d6x1 JofG9sAKriXRN1 MICROSCOPIC DESCRIPTION y8gucZWdOJGehWL9MrKhRT (test code = 3371) Pis2bec1ZciVIgsOUlYDzs iWVdndNzwt65bDE6tB70RN 4xPAEbQiP3IMCapeP4Hif9 QLNgYKDkxIOrV725p9kkd8 tuekWwuLQ6hXrcIJWytyda ZwR3GRucRDStfpkaCVx5EC wcIPNjxLT0VEUfdIXxR5Qv YVHzVE9lzyq1ALY4JDbzXJ UqZuI5JBAskWCpATAuzHhe RKsng317VJL7OjJfQJFhev TzsAadwT5tMdJsKQYAAAAq x9UpZTWrSYuzEFQ9 Gross assessment was [facility] performed at ([facility], = 9234) Department of Pathology, [address] [place] [address], Technical component was [facility] performed at ([facility], = 3250) Department of Pathology, [address] [place] [address], Professional component [facility] was performed at ([facility], code = 2779) Department of Pathology, [address] [facility], [place] [address], [facility] 13:43:33 Test Item Value Reference Range Interpretation Comments Case Report (test code Medical Cytology = 104) Report Case: [id number] Authorizing Provider: Rosa Whiting Collected: 06/07/2021 11:18 AM MD Page Ordering Location: [address] Received: 06/09/2021 08:38 AM Service Pathologist: Sean Gibbs MD Specimen: Common Bile Duct, CBD aspirate DIAGNOSIS (test code = e7jckTNiNNEhw5kaYGCnhJ 3220) FuZzEwMzNcZnRuYmpcdWMx IHtccnRmMVxlcGljOTYwMV wxqgFkNZXivQOfE1Yfkcso XAthAD9qQA1dwBhmjOOufZ IeCEOsBpUks2pef202qFHp r5syTAVNggvuiMo0sOxdU3 1pi9U5CbepV70duSTbTVP5 VVZzCQYuqSDrOPQbHUS0LD CrzNNhO9zkGVSwBT4qomhe CMcpIVwyTWYigMU6WONhcI WlM4JyOUKwXVzqOHCaasu8 LdFuDv2naRFqlOeeYGhaNW BxMUJcUEblQHXqTuPfD35O PS4PAIFZWMPfHGEQQIIEX4 RVOcTSGVZROJTRMNSvV4vV I1MCSL4EJBzufZEwGARtWE 7qAN2FSMMWEhHrUd9VXF3N TElHTkFOVCBDRUxMUywgQU YFVy3BMOPSNJ5EEJKcCYDh YBNhn10pBL19BPifFVP7u1 xydGYxXHNzdGUxODAwMFxh bnNpXGRlZmxhbmcxMDMzXG D5yzEcFJYeVTrkOPMcTSrx Dr6hyBCogMnfUmGbKOBwi9 vaocLEiwxopEp9c5caDAVf JiM9dGQmXLrvF6ixycSitS OwUWQcNPr9iE63NYHleQ5n dEYjLHkrrpYpKtJ3SSclIQ QjAaS7XISqhKDbROIpT0oi ZWQwXGdyZWVuMFxibHVlMC Z4sOavk2H7nHYdiRAgkCnl RyFoMpUgOmXGf8FyOGo6rU omU5AmKBRgXqM7vAPtFZRu CKtrHGKvIVCaqpO2cM50YA qfjgX2qHNfr0Mjd21yr313 sG3fsVUuDDF4HMGdFZGteR DoIYOwEOE4XTUasMPiV5lz PLVoHX7ifxgjOWzlBVrbYC RugBZ7LEBicAYwC7KmRPZk IZzsWQFuxon1HzIjFs8eoN NczOhrQWvas1qjh7venMEz Inr2ZMTbXdKlBketPXkfa7 Miv0bqQLAwch3cROL8yNDp gYgza8T4dQZlYSXfrDQaSB NaTK7uhWInENXqyV0enmpt XHBnYnJkcmhlYWRccGdicm QiNi4lqUemPVA7GGpwZ8is zO8eDlX4MUqbZ3teuK3eWC g1DLtwXAXgxUF0ixC1TQFi pCNvU8UujV0pXMLnFS6icj s9j4ujNML4CThtWDKqZbS8 amY9NGParZAhTTNpwOhmNZ wjj971QLL1ZzShQZRdp4Ap B1XwsRlrH30bmFdaU91qKR RkkNkspE6jbCfnbD5rUcRu QlCvIKdtdBsgNQ8xOAYpB4 iwaTXnSLKsJFClA9jbHbVg mU0ssHrjPHbfiuVoUADaJr v0SODcbJDlZOWgGaq2LGQy FFReW18jgkrlIQB1qI4jh7 xpj0AeWFdgRHT1LRKon37u OJdgrcP2WLvrMt05KFiyQW G9CJmczABqxZ6= COMMENT (test code = t2ndrNLvKFTimQU9FcCqCV 7731) Mxn4yub1SvbXEwuQNcRJnj tZNtegJger25jHY1xN20QQ 9iSOKkIbL9ZETzzzK1Ieb9 ZDYeDZUgmACgC279c9aod0 yxstUleVB2cKhiEYNilkuc IuG4YEvdUDKajnshMDj7CV ddSNHojBD9ICZpnQKzN0Tn ENZlMI6cbgf1LMS3HMwxVN SzHaT0LFQuwQOwIXHyfAvu GKqdb361WWM4McYyYRLnkt LgyApykM4nJgPhLLKMIINe ziE2lJF1MZ4eKZNeUXT3wo 9uaWMgbWVkaWNhbCByZWNv mhRkPXunIQdsfweevJ6ror Ejf4jcmyXpUbMnKSC7FQvk dmVyIGxvYmUgbWFzcyBhbm ClRD4jOA8gj6Vzw9KgNjOu sNReQBRabX0aFU8nRFEmiu LmDCJvqPPex6JoukRqMeFq XRX8XU2wtH1fSSUtiXTixX S1cLOcgOL5TFlkj5OlTcpx pNWsCZTgu92mm7AkqLLkNI Gey0Obq1SpqnYudfrfWUqi DB1ltWMsYrQBvZNfu6Sbpj BumYpvMZKvy5mfqyQoDZPz ZWRseSBhdHlwaWNhbCBjZW mugeV5gABzSN79E2yjDVOo eOZhLzQefcAuzHAoEXm9tX BssOL9NBTlnRFycuJrsn1u YXNpYSBhbmQgaGlnaCBudW RuXRKsLKCmSRT2oQ0pkUJl bWljIHJhdGlvLCBhcnJhbm cjKNFldiAkc8jub2e0YKLw bHVzdGVycyBhbmQgYWxzby KqcW0mrSrlECsprSEoi8Eu VuJKq57uAMIuvQllFGUlh5 vkxA48erUegRVoeXjec10t NeM6MKZ1b1rnrk9dH0Qfyy QtjAuwgYjrANS7fS7xb6k9 TWXgebByLKHtFLA9PUStAA QomSIkILIrOMCmdK4duESl syVgHg7iIY1cbOmmmqAbS0 apLEEjVP0tT0FjM7qsi06i CEResdM4yJGjeaewdMVpJ3 tzxlrvXHful8M8xBjlVw9p iPAiSAYunrOLlKCyi8JmJL exfbLpKGKcd9BjF6daREmg cSA0nA4wd6s8WCIqdK4rqF ZAOwDqLYK5HuEwUKtyMCT9 CPT Code(s) (test code z3btdHNbVNRjmGN8CkIrZZ = 3357) Yrb2etu1UxfGEfcMWoBPmh lDTrsaEeqm52aBK8cY22HV 3cIJBmHmD1ZPTpfhA1Drq6 MTTtHWTzfNVgJ414z1vzn8 hlvcVtlYK7aGfqDWDysody LhK0BVfmTYOjgjgrRZg1LP jyCKLxqRK2FMEvgPCsR9Ej LSIpAM0bzlc1NYO0CXbiIQ QwNnE1JATvdRWgOSAdbVfp FRwvr200BYZ0XkVsTJGsum MtlYsdiK6uWiVcCAS4VLJc OFxwYXJ9 CLINICAL DATA (test b3airVLlFGUifFD0RmXrHS code = 3355) Rdi5rrb7UjjNZbcADeSAql iGMrtgJzpb55nZL8uI87EB 4wXVLrJxI4PJKjbcW5Dzq4 IJIqYAJzkLIvW710z8fse3 eiggXjzUP0AUBvWHVwR6Bv LY6dUHJmvDGzF88gtVPcWY A8RQAeDOMelAUvIWYrYGM2 HNMwaGGgI9jtWYRsRA4wrs ytGQpyZLqqESIsyKX6KIZd gNAfM2EqDSPjVLhtSDFson q5BcWhUy9cgYOtbUwbTGiu YXJkXHBsYWluXGZzMjBcY2 YgUChhM52tjQy3FBNzgRYj ljzor2BggVuutL88nzEjw3 QxK2cnbTAfH4nkQ1BjV4lh u90dGbMvjNcdlMtfkPBuhQ noGZ87CSAbwbupk4P9GSee oUqmzWvsvr1sDLJknPWqe1 EaBQN3nCF4dvLySnOaJ05i cGFyfQ== SPECIMEN SOURCE (test h3tmmLHpCLYxvNF1XuBlLP code = 3377) Vru8plq2SxdUTasZRxWWfw lZZvleAhkl58pGY7tD74IM 6cOYTsIqK4VRBeaxM0Eaa1 JDZuVGTdfWOiS246c4gss2 ibwzCwjVC3oJsbWRCexzut KtD8PZcdHMYiucubYLt9KW qdIKYsgWL6IENiuYFyF7Kt JQIoCO8scnr1XEJ9GBweTH UoCuD4JNTvqZPvWJIgyLwb PLeka299YEQ5AcRlPZPcbe CtzNmjqI5yAeMgYXPAI27H T51uQzlXAUTCPBPOKVCHJC lSQVRFIEZMVUlEXHBhcn0= GROSS DESCRIPTION (test c9txuMCqKISubWFbRgLpPL code = 3366) KyMMVwo7tmFUVzrDUbMvXs MzNcZnRuYmpcdWMxXGRlZm Dku8ofe858hVRkw9kcZOWw FsA5cNBhIQAjcAHwO204u2 eea2mlmeXavWR1NLDeGZZ0 UQatnzFzntY9JXshlFNgCf O0FYvzuvFcBThwwbSdbpJx Dfw2TBVcD524FPH4iZtsq4 teOIT1FQUuAVNkTkObDz6g jYVlS263QLDjWDDXGFFhdM h1PEDnhwQtswArhDUWv376 C659q8cbOOQruhVgxBlXjp dxv3nnS197RRXedUIoptSm WdNwXEYktLTjqPL7GHWpOG 6ngubpSgNqXO5raqmyLqSy YK6bcbc8RdRaNW7uywdoQz YsJUrgOBRfqztjGHUvu7Yq xdgnER2nG7Rij7L0fN6xhB XxIJZtlNHkSdDzKVGeap1x ePMgYWkjt4ScBIE3tqY4cT PuyQRrMFJpSW40Xoqkf6Zy AfnsYNB2DBRxljLin3Byb4 evRnQzmhWlH7yhY3YmSJXn MWQhQNVpHjVvnsXnn3Qlh0 EckRFqaCq0i4jlQCHeUGUq xSkvr9xoTCC2ZZQvQ2T0cF Ycj3dfKAbkRGJrkGU4oyjm RBgzQCGbfbD9kgueDXfrBY VcuIR4awevTMsdOXQyVsY7 rpbgIDrpZNEpUJO0KHqth2 57EUZ9HSjeIeobDBxgZKBs bmNvbnRccGduZGVjXHBsYW luXHBsYWluXGYwXGZzMjRc tXnyoReijX0oFrGdEnIlTJ jgLN1pPWNzQ6lmfIOwDSCp TJAxG3yfNcLalK0rvIlqWV ofhwWjUKJbG8HhnlVxNIQx RH0iVAqvpShjwhFceKXvkl hteNRkTCDjPqh9WHAwogJ2 JZZgCACfsfPaTCMwO2w7u1 XyoM0cMWeuOGT6 MICROSCOPIC DESCRIPTION s9njoOOwICAakIB3OeBcGO (test code = 3371) Aev1xkl1HksAOqyDSxOXvw qKDvmdCxjw48xIV0bQ07ET 1aZLIsFyJ0KQXttvP5Yst9 LTCiPMSnpXFiL113r9set5 kfxaLnnJC4mKejBKOvjbji AcW7NKljEVEmbjqfCRu9RO qeLFYpwYG4CATeqSFdP7Sz YACtXP8fgcl7YXW1XGeiXQ ZeXpO4VNKkbGRkNXRlrGkg VFytn530QOO5JqJhJFAhsf ErhWwfaH4hRkYdHODXSSRx s0TsTCSoWKhcFOX0 Gross assessment was [facility] performed at ([facility], = 2777) Department of Pathology, [address] [place] [address], Technical component was [facility] performed at ([facility], = 4948) Department of Pathology, [address] [place] [address], Professional component [facility] was performed at ([facility], code = 2779) Department of Pathology, [address] [place] [address], [facility] 13:43:33Medical Cytology Report Case: [id number] Authorizing Provider: Rosa Whiting Collected: 06/07 11:18 AM MD Page Ordering Location: [address] Received: 06/09/2021 08:38 AM Service Pathologist: Sean Gibbs MD Specimen: Common Bile Duct, CBD aspirate COMMON BILE DUCT ASPIRATE FLUID (CYTOSPINS): - POSITIVE FOR MALIGNANT CELLS, ADENOCARCINOMA (see comment) Signing Pathologist Direct Phone Line: [phone] signed by Sean Gibbs MD on 06/10/2021 [...] clinical setting.Please also see surgical pathology report [id number]. [id number] cm liver mass, suspicious for cholangiocarcinoma; mildly prominent periportal lymph nodesmeasure up to 1.2 cmCOMMON BILE DUCT ASPIRATE FLUIDReceived 33 ml yellow cytorich red fixative; prepared 4 cytospins Performed. [facility], Department of Pathology, [address] [place] [address], [facility], Department of [facility]ology, [address] [place] [address], [facility], Department of [facility], [address] [place] [address], NL, CHEST, WITH [id number] 12:51:00Unlisted Reason for Exam - Click Yes and Enter Reason Below->No [facility]INK ZAVALETA : 1970 Sex: FFINAL REPORT CT of [...] [place]acock Verified Date/Time: 06/10/2021 12:51:13 Reading Location: [address] Body Reading Room POCT-GLUCOSE [id number] 08:46:12 Test Item Value Reference Range Interpretation Comments POC-GLUCOSE METER 96 mg/dL 70-110 : TESTED A T [facility] [address] ([employer]) (test code = KENYA QU[place]ONES [place], 1538) [address]: Music Therapy Specialist/Techni grisel ID = [id number] for EMMIE MOREIRA COMPREHENSIVE METABOLIC [id number] 04:45:59 Test Item Value Reference Range Interpretation [...] S NOT APPLICABLE FOR DIALYSIS PATIEN TS. Music Therapy Specialist ID - SARAH MSpecimen moderately ictericCBC W/PLT COUNT & AUTO [id number] 04:23:27 Test Item Value Reference Range Interpretation [...] PERCENT (BEAKER) (test code = 2801) POCT-GLUCOSE [id number] 23:17:20 Test Item Value Reference Range Interpretation Comments POC-GLUCOSE METER 122 mg/dL 70-110 H : TESTED A T [facility] 67[address] (BEAKER) (test code = KENYA QU[place]ON[place], 1538) [address]: Music Therapy Specialist/Techni grisel ID = [id number] for Nayeli Tesfaye POCT-GLUCOSE [id number] 17:17:57 Test Item Value Reference Range Interpretation Comments POC-GLUCOSE METER 146 mg/dL 70-110 H : TESTED A T [facility] [address] (BEAKER) (test code = KENYA Mcm[place], 1538) [address]: Music Therapy Specialist/Techni grisel ID = [id number] for EMMIE JOHNSON POCT-GLUCOSE [id number] 11:59:25 Test Item Value Reference Range Interpretation Comments POC-GLUCOSE METER 132 mg/dL 70-110 H : TESTED A T [facility] 6720 (BEAKER) (test code = KEYNA Mcmullen [facility], 1538) 44694: Music Therapy Specialist/Techni grisel ID = [id number] for EMMIE JOHNSON COMPREHENSIVE METABOLIC [id number] 10:34:04 Test Item Value Reference Range Interpretation [...] S NOT APPLICABLE FOR DIALYSIS PATIEN TS. Music Therapy Specialist ID - SATISH FSpecimen moderately [id number] 10:02:31 Test Item Value Reference Range Interpretation Comments Cytology (test code = See Separate Report 262) [facility]2021-12-20 10:02:31 Test Item Value Reference Range Interpretation Comments Cytology (test code = See Separate Report 2629) [facility]2021-12-20 10:02:31 Test Item Value Reference Range Interpretation Comments Cytology (test code = See Separate Report 2629) [facility]2021-12-20 10:02:31 Test Item Value Reference Range Interpretation Comments Cytology (test code = See Separate Report 2629) [facility] [id number] 10:02:31 Test Item Value Reference Range Interpretation Comments Cytology (test code = See Separate Report 2629) [facility] [id number] 10:02:31 Test Item Value Reference Range Interpretation Comments Cytology (test code = See Separate Report 2629) [facility]2021-12-20 10:02:31 Test Item Value Reference Range Interpretation Comments Cytology (test code = See Separate Report 2629) [facility] [id number] 10:02:31 Test Item Value Reference Range Interpretation Comments CYTOLOGY RESULT POINTER See Separate Report (BEAKER) (test code = 262) CBC W/PLT COUNT & AUTO [id number] 09:51:49 Test Item Value Reference Range Interpretation [...] PERCENT (BEAKER) (test code = 2801) POCT-GLUCOSE [id number] 07:50:45 Test Item Value Reference Range Interpretation Comments POC-GLUCOSE METER 102 mg/dL 70-110 : TESTED A T [facility] 6720 (BEAKER) (test code = KENYA QUINONES [place], 1538) 56442: Music Therapy Specialist/Techni grisel ID = [id number] for MARIE JAEEMMIE POCT-GLUCOSE [id number] 21:32:56 Test Item Value Reference Range Interpretation Comments POC-GLUCOSE METER 146 mg/dL 70-110 H : TESTED A T [facility] 6720 (BEAKER) (test code = KENYA Mcmullen [place], 1538) 06548: Music Therapy Specialist/Techni grisel ID = [id number] for SHYLA KRAUS POCT-GLUCOSE [id number] 17:37:43 Test Item Value Reference Range Interpretation Comments POC-GLUCOSE METER 124 mg/dL 70-110 H : TESTED A T [facility] 6720 (BEAKER) (test code = KENYA Mcmullen [place], 1538) 54853: Music Therapy Specialist/Techni grisel ID = [id number] for MIHIR DIAZ Liver-Kidney Microsome [id number] 15:39:08 Test Item Value Reference Range Interpretation Comments LKM-1 Antibody <20.0 See Note: U Reference Ran ge:<=20.0 (IgG) (test EXDNMGUO20.1-24 .9 code = EQUIVOCAL>=25.0 POSITIVE ) Anti-liver/kidn [...] (test code Performing Lab EZ = SOPHIA) [facility][1] [address] [place] [address] Marialuisa Jay MD, PhD, MICHEAL [facility] CenterL[facility] Microsome [id number] 15:39:08 Test Item Value Reference Range Interpretation Comments LKM-1 Antibody <20.0 See Note: U Reference Ran ge:<=20.0 (IgG) (test YFIXKXOE90.1-24 .9 code = EQUIVOCAL>=25.0 POSITIVE ) Anti-liver/kidn [...] (test code Performing Lab EZ = SOPHIA) [facility] [place] [id number] [place] [address] Marialuisa Jay MD, PhD, MICHEAL [facility] [id number] 15:39:08 Test Item Value Reference Range Interpretation Comments LKM-1 Antibody <20.0 See Note: U Reference Ran ge:<=20.0 (IgG) (test DCEMHMTS96.1-24 .9 code = EQUIVOCAL>=25.0 POSITIVE ) Anti-liver/kidn [...] (test code Performing Lab EZ = SOPHIA) [facility][1] [address] [place] [address] Marialuisa Jay MD, PhD, MICHEAL [facility] [id number] 15:39:08 Test Item Value Reference Range Interpretation Comments LKM-1 Antibody <20.0 See Note: U Reference Ran ge:<=20.0 (IgG) (test JHVBLXHN24.1-24 .9 code = EQUIVOCAL>=25.0 POSITIVE ) Anti-liver/kidn [...] (test code Performing Lab EZ = SOPHIA) [facility] [place] [address] [place] [address] Marialuisa Jay MD, PhD, MICHEAL [facility] Center[facility] MICROS[facility] [id number] 15:39:08 Test Item Value Reference Range Interpretation Comments LKM-1 Antibody <20.0 See Note: U Reference Ran ge:<=20.0 (IgG) (test TNGNMMVO18.1-24 .9 code = EQUIVOCAL>=25.0 POSITIVE ) Anti-liver/kidn [...] (test code Performing Lab EZ = SOPHIA) [facility][1] [address] [place] [address] Marialuisa Jay MD, PhD, MICHEAL [facility] CenterK[facility] MICROS[facility] [id number] 15:39:08 Test Item Value Reference Range Interpretation Comments LKM-1 Antibody <20.0 See Note: U Reference Ran ge:<=20.0 (IgG) (test LKTUTHTY67.1-24 .9 code = EQUIVOCAL>=25.0 POSITIVE ) Anti-liver/kidn [...] (test code Performing Lab EZ = SOPHIA) [facility][1] [address] [place] [address] Marialuisa Jay MD, PhD, MICHEAL [facility] CenterLiver-Kidney Microsome [id number] 15:39:08 Test Item Value Reference Range Interpretation Comments LKM-1 Antibody <20.0 See Note: U Reference Ran ge:<=20.0 (IgG) (test VCNTEMKY26.1-24 .9 code = EQUIVOCAL>=25.0 POSITIVE ) Anti-liver/kidn [...] (test code Performing Lab EZ = SOPHIA) [facility][1] [address] [place] [address] Marialuisa Jay MD, PhD, MICHEAL [facility] CenterPOCT-GLUCOSE [id number] 11:30:55 Test Item Value Reference Range Interpretation Comments POC-GLUCOSE METER 158 mg/dL 70-110 H : TESTED A T [facility] 6720 (BEMarketcetera) (test code = KENYA QUINONES [place], 1538) 44299: Music Therapy Specialist/Techni grisel ID = [id number] for MIHIR DIAZ COMPREHENSIVE METABOLIC [id number] 10:54:30 Test Item Value Reference Range Interpretation [...] S NOT APPLICABLE FOR DIALYSIS PATIEN TS. Music Therapy Specialist ID - PIAYA LSpecimen moderately ictericCBC W/PLT COUNT & AUTO [id number] 10:19:43 Test Item Value Reference Range Interpretation [...] PERCENT (BEAKER) (test code = 2801) POCT-GLUCOSE [id number] 07:55:36 Test Item Value Reference Range Interpretation Comments POC-GLUCOSE METER 88 mg/dL 70-110 : TESTED A T [facility] 6720 (BEAKER) (test code = KENYA SANTOS, 1538) 86783: Music Therapy Specialist/Techni grisel ID = [id number] for DASHA BAH POCT-GLUCOSE [id number] 21:23:21 Test Item Value Reference Range Interpretation Comments POC-GLUCOSE METER 193 mg/dL 70-110 H : TESTED A T [facility] 6720 (BEAKER) (test code = KENYA QUINON[place], 1538) 70427: Music Therapy Specialist/Techni grisel ID = [id number] for PE SHYLA SANTOYO Mitochondrial Ab [id number] 18:27:09 Test Item Value Reference Range Interpretation Comments Anti-Mitochond Abs NEGATIVE NEGATIVE (test code = ) SOPHIA (test code = Performing Lab EZ [facility] SOPHIA) [facility] [place] [address] [place] [address] Marialuisa Jay MD, PhD, MICHEAL [facility] CenterMitochondrial Ab [id number] 18:27:09 Test Item Value Reference Range Interpretation [...] Performing Lab EZ SOPHIA) [facility] [place] [address] [place] [address] Marialuisa Jay MD, PhD, MICHEAL [facility] CenterMitochondrial Ab [id number] 18:27:09 Test Item Value Reference Range Interpretation Comments Anti-Mitochond Abs NEGATIVE NEGATIVE (test code = ) SOPHIA (test code = Performing Lab E[facility] SOPHIA) [facility] [employer] [place] [address] [place] [address] Marialuisa Jay MD, PhD, MICHEAL [facility] CenterMitochondrial Ab [id number] 18:27:09 Test Item Value Reference Range Interpretation [...] = Performing Lab EZ SOPHIA) [facility] [employer] [place] [address] [place] [address] Marialuisa Jay MD, PhD, MICHEAL [facility] CenterMitochondrial Ab [id number] 18:27:09 Test Item Value Reference Range Interpretation Comments Anti-Mitochond Abs NEGATIVE NEGATIVE (test code = 0728578) SOPHIA (test code = Performing Lab [facility] SOPHIA) [facility] [place] [address] [place] [address] Marialuisa Jay MD, PhD, [facility]AL[facility] CenterMitochondrial Ab [id number] 18:27:09 Test Item Value Reference Range Interpretation [...] Performing Lab EZ SOPHIA) [facility] [place] [address] [place] [address] Marialuisa Jay MD, PhD, [facility] CenterMit[facility] Ab [id number] 18:27:09 Test Item Value Reference Range Interpretation Comments Anti-Mitochond Abs NEGATIVE NEGATIVE (test code = ) SOPHIA (test code = Performing Lab [facility] SOPHIA) [facility] [employer] [place] [address] [place] [address] Marialuisa Jay MD, PhD, [facility] CenterMitochondrial Ab [id number] 18:27:09 Test Item Value Reference Range Interpretation [...] = Performing Lab EZ SOPHIA) [facility] [employer] [place] [address] [place] [address] Marialuisa Jay MD, PhD, [facility] CenterMitochondrial Ab [id number] 18:27:09 Test Item Value Reference Range Interpretation Comments Anti-Mitochond Abs NEGATIVE NEGATIVE (test code = ) SOPHIA (test code = Performing Lab E[facility] SOPHIA) [facility] [employer] [address] [place] [address] Marialuisa Jay MD, PhD, [facility]AL[facility] CenterMitochondrial Ab [id number] 18:27:09 Test Item Value Reference Range Interpretation [...] = Performing Lab EZ SOPHIA) [facility][1] [address] [place] [address] Marialuisa Jay MD, PhD, [facility] CenterMitochondrial Ab [id number] 18:27:09 Test Item Value Reference Range Interpretation Comments Anti-Mitochond Abs NEGATIVE NEGATIVE (test code = 5827536) SOPHIA (test code = Performing [facility] SOPHIA) [facility][1] [address] [place] [address] Marialuisa Jay MD, PhD, [facility] CenterMitochondrial Ab [id number] 18:27:09 Test Item Value Reference Range Interpretation [...] Performing Lab EZ SOPHIA) [facility] [address] [place] [address] Marialuisa Jay MD, PhD, [facility]AL[facility] CenterMitochondrial Ab [id number] 18:27:09 Test Item Value Reference Range Interpretation Comments Anti-Mitochond Abs NEGATIVE NEGATIVE (test code = 2560420) SOPHIA (test code = Performing Lab [facility] SOPHIA) [facility] [place] [address] [place] [address] Marialuisa Jay MD, PhD, [facility] CenterMitochondrial Ab [id number] 18:27:09 Test Item Value Reference Range Interpretation Comments Mitochondrial Ab TNP See_Comment Test Not Titer (test code = Performed . 0849683) Screening test Negative or Not Detected. Titer notperformed. [Automated message] The system which generated this result transmitted reference range : <1:20. The reference range was not used to interpret this result as normal/abnormal . SOPHIA (test code = Performing Lab EZ SOPHIA) [facility][1] [address] [place] [address] Marialuisa Jay MD, PhD, MICHEAL [facility] CenterPOCT-GLUCOSE [id number] 17:25:28 Test Item Value Reference Range Interpretation Comments POC-GLUCOSE METER 181 mg/dL 70-110 H : TESTED A T [facility] 6720 (BEAKER) (test code = [facility], 1538) 61897: Music Therapy Specialist/Techni grisel ID = [id number] for MIHIR DIAZ POCT-GLUCOSE [id number] 12:59:42 Test Item Value Reference Range Interpretation Comments POC-GLUCOSE METER 143 mg/dL 70-110 H : TESTED A T [facility] 6720 (BEAKER) (test code = [facility], 1538) 51300: Music Therapy Specialist/Techni grisel ID = [id number] for MIHIR DIAZ POCT-GLUCOSE [id number] 11:43:35 Test Item Value Reference Range Interpretation Comments POC-GLUCOSE METER 201 mg/dL 70-110 H : TESTED A T [facility] 6720 (BEAKER) (test code [facility], = 1538) 97049: Music Therapy Specialist/Techni grisel ID = [id number] for Sara Moore [place], [id number] 11:07:00Reason for exam:->[facility] : 1970 Sex: FFluoroscopic unit utilized for a procedure performed in the OR. No interpretation was requested. Referto the operative report for findings. Refer to PACS for patient radiation dose information.POCT-GLUCOSE [id number] 07:40:21 Test Item Value Reference Range Interpretation Comments POC-GLUCOSE METER 94 mg/dL 70-110 : TESTED Melo Isabel [facility] 6720 (ROBYN) (test code = KENYA QUINONES [place], 1538) 48474: Music Therapy Specialist/Techni grisel ID = [id number] for DASHA BAH Actin (Smooth Muscle) Antibody, [id number] 03:49:29 Test Item Value Reference Range Interpretation Comments Anti-Smooth <20 See Note: U Reference Range :<20 Muscle Ab NEGATIVE> OR = 20 (test code = POSITIVE Antibo dies 6560002) recognizing act in are the main compon [...] Performing Lab EZ = SOPHIA) [facility][1] [address] [place] [address] Marialuisa Jay MD, PhD, MICHEAL [facility] CenterActin (Smooth Muscle) Antibody, [id number] 03:49:29 Test Item Value Reference Range Interpretation Comments Anti-Smooth <20 See Note: U Reference Range :<20 Muscle Ab NEGATIVE> OR = 20 (test code = POSITIVE Antibo dies 3974548) recognizing act in are the main compon [...] (test code Performing Lab EZ = SOPHIA) [facility] [employer] [place] [address] [place] [address] Marialuisa Jay MD, PhD, [facility] CenterActin (Smooth Muscle) Antibody, [id number] 03:49:29 Test Item Value Reference Range Interpretation Comments Anti-Smooth <20 See Note: U Reference Range :<20 Muscle Ab NEGATIVE> OR = 20 (test code = POSITIVE Antibo dies [id number]) recognizing act in are the main compon [...] (test code Performing Lab EZ = SOPHIA) [facility] [employer] [address] [place] [address] Marialuisa Jay MD, PhD, [facility] CenterActin (Smooth Muscle) Antibody, [id number] 03:49:29 Test Item Value Reference Range Interpretation Comments Anti-Smooth <20 See Note: U Reference Range :<20 Muscle Ab NEGATIVE> OR = 20 (test code = POSITIVE Antibo dies 1140224) recognizing act in are the main compon [...] (test code Performing Lab EZ = SOPHIA) [facility] [employer] [address] [place] [address] Marialuisa Jay MD, PhD, [facility] CenterActin (Smooth Muscle) Antibody, [id number] 03:49:29 Test Item Value Reference Range Interpretation Comments Anti-Smooth <20 See Note: U Reference Range :<20 Muscle Ab NEGATIVE> OR = 20 (test code = POSITIVE Antibo dies 0830627) recognizing act in are the main compon [...] (test code Performing Lab EZ = SOPHIA) [facility] [employer] [place] [address] [place] [address] Marialuisa Jay MD, PhD, MIC[facility]ALSt. Jude Medical CenterActin (Smooth Muscle) Antibody, [id number] 03:49:29 Test Item Value Reference Range Interpretation Comments Anti-Smooth <20 See Note: U Reference Range :<20 Muscle Ab NEGATIVE> OR = 20 (test code = POSITIVE Antibo dies 0425246) recognizing act in are the main compon [...] (test code Performing Lab EZ = SOPHIA) [facility] [employer] [place] [address] [place] [address] Marialuisa Jay MD, PhD, MIC[facility]ALSt. Jude Medical CenterActin (Smooth Muscle) Antibody, [id number] 03:49:29 Test Item Value Reference Range Interpretation Comments Anti-Smooth <20 See Note: U Reference Range :<20 Muscle Ab NEGATIVE> OR = 20 (test code = POSITIVE Antibo dies 4999035) recognizing act in are the main compon [...] (test code Performing Lab EZ = SOPHIA) [facility][1] [address] [place] [address] Marialiusa Jay MD, PhD, MICHEAL [facility] CenterPOCT-GLUCOSE [id number] 22:37:18 Test Item Value Reference Range Interpretation Comments POC-GLUCOSE METER 108 mg/dL 70-110 : TESTED A T [facility] 6720 (BEAKER) (test code = [facility], 1538) 34686: Music Therapy Specialist/Techni grisel ID = [id number] for SHYLA KRAUS POCT-GLUCOSE [id number] 17:29:42 Test Item Value Reference Range Interpretation Comments POC-GLUCOSE METER 129 mg/dL 70-110 H : TESTED A T [facility] 6720 (BEAKER) (test code = [facility], 1538) 19014: Music Therapy Specialist/Techni grisel ID = [id number] for MARIE [facility] [id number] 14:27:31 Test Item Value Reference Range Interpretation Comments Ceruloplasmin (test code 64 mg/dL 18-53 H = 20190812) SOPHIA (test code = SOPHIA) Performing Lab *YASMIN [facility], [address] [place] [id number] Maame Nuñez MD Lab Interpretation (test Abnormal code = 44716-6) [facility] Cen[id number] 14:27:31 Test Item Value Reference Range Interpretation Comments Ceruloplasmin (test code 64 mg/dL 18-53 H = 20190812) SOPHIA (test code = SOPHIA) Performing Lab *YASMIN [facility], [address] [place] [phone] Maame Nuñez MD Lab Interpretation (test Abnormal code = 20528-2) [facility] Cen[id number] 14:27:31 Test Item Value Reference Range Interpretation Comments Ceruloplasmin (test code 64 mg/dL 18-53 H = 4612232) SOPHIA (test code = SOPHIA) Performing Lab *YASMIN [facility], [address] [place] [address] Maame Nuñez MD Lab Interpretation (test Abnormal code = 84957-3) [facility] CenterPwqbdjWmxqzymorfmxv5197-79-55 14:27:31 Test Item Value Reference Range Interpretation Comments Ceruloplasmin (test code 64 mg/dL 18-53 H = 2004487) SOPHIA (test code = SOPHIA) Performing Lab *YASMIN [facility], [address] [place] [address] Maame Nueñz MD Lab Interpretation (test Abnormal code = 11317-5) [facility] Hospitaluloplasmin2021-12-17 14:27:31 Test Item Value Reference Range Interpretation Comments Ceruloplasmin (test code 64 mg/dL 18-53 H = 3512162) SOPHIA (test code = SOPHIA) Performing Lab *YASMIN [facility], [address] [place] [address] Maame Nuñez MD Lab Interpretation (test Abnormal code = 71485-2) [facility] Cen[id number] 14:27:31 Test Item Value Reference Range Interpretation Comments Ceruloplasmin (test code 64 mg/dL 18-53 H = 1710614) SOPHIA (test code = SOPHIA) Performing Lab *YASMIN [facility], [address] [place] [address] Maame Nuñez MD Lab Interpretation (test Abnormal code = 33052-3) [facility] CenterKlmxbgFcqiarpykwbaf6300-83-75 14:27:31 Test Item Value Reference Range Interpretation Comments Ceruloplasmin (test code 64 mg/dL 18-53 H = 5576878) SOPHIA (test code = SOPHIA) Performing Lab *YASMIN [facility], [address] [place] [address] Maame Nuñez MD Lab Interpretation (test Abnormal code = 88833-5) [facility] CenterCarbohydrate antigen 19-9 (CA 19-9)2021-06-06 13:37:14 Test Item Value Reference Range Interpretation Comments CA 19-9 20 U/mL <34 This test was (test code = performed using the 11915-1) Siemens Chemiluminescen t method.Values o btained from different assay methods cannot be used interchangeably .CA19-9 levels, regardl ess of value, should n ot be interpreted as absoluteevidenc e of the presence or abs ence of disease. SOPHIA (test Performing Lab EZ code = SOPHIA) [facility] [place] [address] [place] [address] Marialuisa Jay MD, PhD, [facility] CenterCarbohydrate antigen 19-9 (CA 19-9)2021-06-06 13:37:14 Test Item Value Reference Range Interpretation Comments CA 19-9 20 U/mL <34 This test was (test code = performed using the 21273-8) Siemens Chemiluminescen t method.Values o btained from different assay methods cannot be used interchangeably .CA19-9 levels, regardl ess of value, should n ot be interpreted as absoluteevidenc e of the presence or abs ence of disease. SOPHIA (test Performing Lab EZ code = SOPHIA) [facility] [place] [address] [place] [address] Marialuisa Jay MD, PhD, [facility] CenterCarbohydrate antigen 19-9 (CA 19-9)2021-06-06 13:37:14 Test Item Value Reference Range Interpretation Comments CA 19-9 20 U/mL <34 This test was (test code = performed using the 51878-7) Siemens Chemiluminescen t method.Values o btained from different assay methods cannot be used interchangeably .CA19-9 levels, regardl ess of value, should n ot be interpreted as absoluteevidenc e of the presence or abs ence of disease. SOPHIA (test Performing Lab EZ code = SOPHIA) [facility] [place] [address] [place] [address] Marialuisa Jay MD, PhD, [facility] CenterCarbohydrate antigen 19-9 (CA 19-9)2021-06-06 13:37:14 Test Item Value Reference Range Interpretation Comments CA 19-9 20 U/mL <34 This test was (test code = performed using the 35130-3) Siemens Chemiluminescen t method.Values o btained from different assay methods cannot be used interchangeably .CA19-9 levels, regardl ess of value, should n ot be interpreted as absoluteevidenc e of the presence or abs ence of disease. SOPHIA (test Performing Lab EZ code = SOPHIA) [facility] [place] [address] [place] [address] Marialuisa Jay MD, PhD, MIC[facility]ALSt. Jude Medical CenterCarbohydrate antigen 19-9 (CA 19-9)2021-06-06 13:37:14 Test Item Value Reference Range Interpretation Comments CA 19-9 20 U/mL <34 This test was (test code = performed using the 30266-6) Siemens Chemiluminescen t method.Values o btained from different assay methods cannot be used interchangeably .CA19-9 levels, regardl ess of value, should n ot be interpreted as absoluteevidenc e of the presence or abs ence of disease. SOPHIA (test Performing Lab EZ code = SOPHIA) [employer] [place] [address] [place] [address] Marialuisa Jay MD, PhD, MICHEALSt[facility] Jude Medical CenterCarbohydrate antigen 19-9 (CA 19-9)2021-06-06 13:37:14 Test Item Value Reference Range Interpretation Comments CA 19-9 20 U/mL <34 This test was (test code = performed using the 77867-5) Siemens Chemiluminescen t method.Values o btained from different assay methods cannot be used interchangeably .CA19-9 levels, regardl ess of value, should n ot be interpreted as absoluteevidenc e of the presence or abs ence of disease. SOPHIA (test Performing Lab EZ code = SOPHIA) [employer] [place] [address] [place] [address] Marialuisa Jay MD, PhD, MIC[facility]ALSt[facility] Jude Medical CenterCarbohydrate antigen 19-9 (CA 19-9)2021-06-06 13:37:14 Test Item Value Reference Range Interpretation Comments CA 19-9 20 U/mL <34 This test was (test code = performed using the 24573-4) Siemens Chemiluminescen t method.Values o btained from different assay methods cannot be used interchangeably .CA19-9 levels, regardl ess of value, should n ot be interpreted as absoluteevidenc e of the presence or abs ence of disease. SOPHIA (test Performing Lab EZ code = SOPHIA) [facility][1] [address] [place] [facility] [place] [address] I Misty GALINDO, PhD, MICHEAL [facility] CenterPOCT-GLUCOSE [id number] 12:35:17 Test Item Value Reference Range Interpretation Comments POC-GLUCOSE METER 162 mg/dL 70-110 H : TESTED A T [facility] 6720 (BEAKER) (test code = [facility], 1538) 37231: Music Therapy Specialist/Techni grisel ID = [id number] for EMMIE JOHNSON POCT-GLUCOSE [id number] 08:15:46 Test Item Value Reference Range Interpretation Comments POC-GLUCOSE METER 100 mg/dL 70-110 : TESTED A T [facility] 6720 (BEAKER) (test code = [facility], 1538) 28609: Music Therapy Specialist/Techni grisel ID = [id number] for MA RTIN, CHIJACQUELYN POCT-GLUCOSE [id number] 21:16:23 Test Item Value Reference Range Interpretation Comments POC-GLUCOSE METER 135 mg/dL 70-110 H : TESTED A T [facility] 6720 (BEAKER) (test code = [facility] [employer] [place] [facility] [address]: Music Therapy Specialist/Techni grisel ID = [id number] for JUAN HAND SE POCT-GLUCOSE [id number] 17:57:43 Test Item Value Reference Range Interpretation Comments POC-GLUCOSE METER 121 mg/dL 70-110 H : TESTED A T [facility] 6720 (BEAKER) (test code = [facility] [employer] [facility], 1538) 87988: Music Therapy Specialist/Techni grisel ID = [id number] for MA RTELADIA, EMMIE POCT-GLUCOSE [id number] 12:11:50 Test Item Value Reference Range Interpretation Comments POC-GLUCOSE METER 143 mg/dL 70-110 H : TESTED A T [facility] 6720 (BEAKER) (test code = [facility], 1538) 103[address]: Music Therapy Specialist/Techni grisel ID = [id number] for EMMIE JOHNSON MR, ABDOMEN, [id number] 09:03:00MRI LIVER PROTOCOL; liver masses MRCP patient with dilated intrahepatic ducts. Recommended by hepatology Unlisted Reason for Exam - Click Yes and Enter Reason Below->No Deos the patient have an implanted electronic device?->No [facility] 1970 Sex: [...] measure up to 0.5 cm. Signed: Mala Ramos MDReport Verified Date/Time: 06/05/2021 09:03:32 Reading Location: [facility] Diagnostic Imaging Reading Room - [place] [address] POCT-GLUCOSE [id number] 08:04:23 Test Item Value Reference Range Interpretation Comments POC-GLUCOSE METER 97 mg/dL 70-110 : TESTED A T [facility] 6720 (BEAKER) (test code = KENYA Mcmullen [facility], 1538) 14672: Music Therapy Specialist/Techni grisel ID = [id number] for EMMIE MOREIRA Hepatitis B surface [id number] 06:11:57 Test Item Value Reference Range Interpretation Comments Hep B S Ab (test code <8.0 See_Comment [Auto mated = 71052-2) message] The system which generated this result transmit manoj reference range : <8.0 mIU/mL. Th e reference range was not used to interpret this result as normal/abnormal . SOPHIA (test code = SOPHIA) Music Therapy Specialist ID - SARAH M Lab Interpretation Normal (test code = 41579-9) [facility] [id number] 06:11:57 Test Item Value Reference Range Interpretation Comments Hep B S Ab (test code <8.0 See_Comment [Auto mated = 39009-5) message] The system which generated this result transmit manoj reference range : <8.0 mIU/mL. Th e reference range was not used to interpret this result as normal/abnormal . SOPHIA (test code = SOPHIA) Music Therapy Specialist ID - SARAH M Lab Interpretation Normal (test code = 94439-1) [facility] B surface [id number] 06:11:57 Test Item Value Reference Range Interpretation Comments Hep B S Ab (test code <8.0 See_Comment [Auto mated = 19358-8) message] The system which generated this result transmit manoj reference range : <8.0 mIU/mL. Th e reference range was not used to interpret this result as normal/abnormal . SOPHIA (test code = SOPHIA) Music Therapy Specialist ID - SARAH M Lab Interpretation Normal (test code = 93467-4) [facility] B surface [id number] 06:11:57 Test Item Value Reference Range Interpretation Comments Hep B S Ab (test code <8.0 See_Comment [Auto mated = 07137-7) message] The system which generated this result transmit manoj reference range : <8.0 mIU/mL. Th e reference range was not used to interpret this result as normal/abnormal . SOPHIA (test code = SOPHIA) Music Therapy Specialist ID - SARAH Javed Lab Interpretation Normal (test code = 60141-2) [facility] B surface [id number] 06:11:57 Test Item Value Reference Range Interpretation Comments Hep B S Ab (test code <8.0 See_Comment [Auto mated = 92147-5) message] The system which generated this result transmit manoj reference range : <8.0 mIU/mL. Th e reference range was not used to interpret this result as normal/abnormal . SOPHIA (test code = SOPHIA) Music Therapy Specialist ID - SARAH M Lab Interpretation Normal (test code = 71036-9) [facility] B surface [id number] 06:11:57 Test Item Value Reference Range Interpretation Comments Hep B S Ab (test code <8.0 See_Comment [Auto mated = 40150-6) message] The system which generated this result transmit manoj reference range : <8.0 mIU/mL. Th e reference range was not used to interpret this result as normal/abnormal . SOPHIA (test code = SOPHIA) Music Therapy Specialist ID - SARAH M Lab Interpretation Normal (test code = 06839-8) [facility] [id number] 06:11:57 Test Item Value Reference Range Interpretation Comments Hep B S Ab (test code <8.0 See_Comment [Auto mated = 17250-4) message] The system which generated this result transmit manoj reference range : <8.0 mIU/mL. Th e reference range was not used to interpret this result as normal/abnormal . SOPHIA (test code = SOPHIA) Music Therapy Specialist ID - SARAH M Lab Interpretation Normal (test code = 33862-8) [facility] SURFACE [id number] 06:11:57 Test Item Value Reference Range Interpretation Comments HEPATITIS B SURFACE ANTIBODY < mIU/mL <8.0 (BEAKER) (test code = 647) Music Therapy Specialist ID - SARAH MPOCT-GLUCOSE [id number] 21:20:16 Test Item Value Reference Range Interpretation Comments POC-GLUCOSE METER 170 mg/dL 70-110 H : TESTED A T [facility] 6720 (BEAKER) (test code = [facility], 1538) 49790: Music Therapy Specialist/Techni grisel ID = [id number] for BROWN CLAYTON POCT-GLUCOSE [id number] 17:16:22 Test Item Value Reference Range Interpretation Comments POC-GLUCOSE METER 128 mg/dL 70-110 H : TESTED A T [facility] 6720 (BEAKER) (test code = [facility], 1538) 81030: Music Therapy Specialist/Techni grisel ID = [id number] for MIHIR DIAZ EBV-VCA antibody, [id number] 11:41:04 Test Item Value Reference Range Interpretation Comments JIMMY GILMORE VIRAL Positive Negative, A CAPSID ANTIGEN IGG (test Equivocal code = 3415) SOPHIA (test code = SOPHIA) Jimmy Gilmore Viral Capsid Antigen IgG Result Interpretation: </= 0.8 Al Negative 0.9-1.0 Al Equivocal >/= 1.1 Al Positive Lab Interpretation (test Abnormal code = 31435-6) [facility]CA antibody, [id number] 11:41:04 Test Item Value Reference Range Interpretation Comments JIMMY GILMORE VIRAL Negative Negative, CAPSID ANTIGEN IGM (test Equivocal code = 3418) SOPHIA (test code = SOPHIA) Jimmy Gilmore Viral Capsid Antigen IgM Result Interpretation: </= 0.8 Al Negative 0.9-1.0 Al Equivocal >/= 1.1 Al Positive Lab Interpretation (test Normal code = 27403-7) [facility] CenterCytomegalovirus antibody, [id number] 11:41:04 Test Item Value Reference Range Interpretation Comments CYTOMEGALOVIRUS, IGG Positive Negative, A (test code = 3429) Equivocal SOPHIA (test code = SOPHIA) CMV IgG Result Interpretation: </= 0.8 Al Negative 0.9-1.0 Al Equivocal >/=1.1 Al Positive Lab Interpretation (test Abnormal code = 99814-5) [facility] CenterEBV-VCA antibody, [id number] 11:41:04 Test Item Value Reference Range Interpretation Comments JIMMY GILMORE VIRAL Positive Negative, A CAPSID ANTIGEN IGG (test Equivocal code = 3415) SOPHIA (test code = SOPHIA) Jimmy Gilmore Viral Capsid Antigen IgG Result Interpretation: </= 0.8 Al Negative 0.9-1.0 Al Equivocal >/= 1.1 Al Positive Lab Interpretation (test Abnormal code = 28120-3) [facility] CenterEBV-VCA antibody, [id number] 11:41:04 Test Item Value Reference Range Interpretation Comments JIMMY GILMORE VIRAL Negative Negative, CAPSID ANTIGEN IGM (test Equivocal code = 3418) SOPHIA (test code = SOPHIA) Jimmy Gilmore Viral Capsid Antigen IgM Result Interpretation: </= 0.8 Al Negative 0.9-1.0 Al Equivocal >/= 1.1 Al Positive Lab Interpretation (test Normal code = 92646-4) [facility] CenterCytomegalovirus antibody, [id number] 11:41:04 Test Item Value Reference Range Interpretation Comments CYTOMEGALOVIRUS, IGG Positive Negative, A (test code = 3429) Equivocal SOPHIA (test code = SOPHIA) CMV IgG Result Interpretation: </= 0.8 Al Negative 0.9-1.0 Al Equivocal >/=1.1 Al Positive Lab Interpretation (test Abnormal code = 41147-5) [facility] CenterEBV-VCA antibody, [id number] 11:41:04 Test Item Value Reference Range Interpretation Comments JIMMY GILMORE VIRAL Positive Negative, A CAPSID ANTIGEN IGG (test Equivocal code = 3415) SOPHIA (test code = SOPHIA) Jimmy Gilmore Viral Capsid Antigen IgG Result Interpretation: </= 0.8 Al Negative 0.9-1.0 Al Equivocal >/= 1.1 Al Positive Lab Interpretation (test Abnormal code = 97472-7) [facility] CenterEBV-VCA antibody, [id number] 11:41:04 Test Item Value Reference Range Interpretation Comments JIMMY GILMORE VIRAL Negative Negative, CAPSID ANTIGEN IGM (test Equivocal code = 3418) SOPHIA (test code = SOPHIA) Jimmy Gilmore Viral Capsid Antigen IgM Result Interpretation: </= 0.8 Al Negative 0.9-1.0 Al Equivocal >/= 1.1 Al Positive Lab Interpretation (test Normal code = 36693-7) [facility] CenterCytomegalovirus antibody, [id number] 11:41:04 Test Item Value Reference Range Interpretation Comments CYTOMEGALOVIRUS, IGG Positive Negative, A (test code = 3429) Equivocal SOPHIA (test code = SOPHIA) CMV IgG Result Interpretation: </= 0.8 Al Negative 0.9-1.0 Al Equivocal >/=1.1 Al Positive Lab Interpretation (test Abnormal code = 85899-4) [facility] CenterEBV-VCA antibody, [id number] 11:41:04 Test Item Value Reference Range Interpretation Comments JIMMY GILMORE VIRAL Positive Negative, A CAPSID ANTIGEN IGG (test Equivocal code = 3415) SOPHIA (test code = SOPHIA) Jimmy Gilmore Viral Capsid Antigen IgG Result Interpretation: </= 0.8 Al Negative 0.9-1.0 Al Equivocal >/= 1.1 Al Positive Lab Interpretation (test Abnormal code = 06215-7) [facility] CenterEBV-VCA antibody, [id number] 11:41:04 Test Item Value Reference Range Interpretation Comments JIMMY GILMORE VIRAL Negative Negative, CAPSID ANTIGEN IGM (test Equivocal code = 3418) SOPHIA (test code = SOPHIA) Jimmy Gilmore Viral Capsid Antigen IgM Result Interpretation: </= 0.8 Al Negative 0.9-1.0 Al Equivocal >/= 1.1 Al Positive Lab Interpretation (test Normal code = 21736-2) [facility] CenterCytomegalovirus antibody, [id number] 11:41:04 Test Item Value Reference Range Interpretation Comments CYTOMEGALOVIRUS, IGG Positive Negative, A (test code = 3429) Equivocal SOPHIA (test code = SOPHIA) CMV IgG Result Interpretation: </= 0.8 Al Negative 0.9-1.0 Al Equivocal >/=1.1 Al Positive Lab Interpretation (test Abnormal code = 96801-8) [facility] CenterEBV-VCA antibody, [id number] 11:41:04 Test Item Value Reference Range Interpretation Comments JIMMY GILMORE VIRAL Positive Negative, A CAPSID ANTIGEN IGG (test Equivocal code = 3415) SOPHIA (test code = SOPHIA) Jimmy Gilmore Viral Capsid Antigen IgG Result Interpretation: </= 0.8 Al Negative 0.9-1.0 Al Equivocal >/= 1.1 Al Positive Lab Interpretation (test Abnormal code = 94504-8) [facility] CenterEBV-VCA antibody, [id number] 11:41:04 Test Item Value Reference Range Interpretation Comments JIMMY GILMORE VIRAL Negative Negative, CAPSID ANTIGEN IGM (test Equivocal code = 3418) SOPHIA (test code = SOPHIA) Jimmy Gilmore Viral Capsid Antigen IgM Result Interpretation: </= 0.8 Al Negative 0.9-1.0 Al Equivocal >/= 1.1 Al Positive Lab Interpretation (test Normal code = 26848-1) [facility] CenterCytomegalovirus antibody, [id number] 11:41:04 Test Item Value Reference Range Interpretation Comments CYTOMEGALOVIRUS, IGG Positive Negative, A (test code = 3429) Equivocal SOPHIA (test code = SOPHIA) CMV IgG Result Interpretation: </= 0.8 Al Negative 0.9-1.0 Al Equivocal >/=1.1 Al Positive Lab Interpretation (test Abnormal code = 14185-6) [facility] CenterEBV-VCA antibody, [id number] 11:41:04 Test Item Value Reference Range Interpretation Comments JIMMY GILMORE VIRAL Positive Negative, A CAPSID ANTIGEN IGG (test Equivocal code = 3415) SOPHIA (test code = SOPHIA) Jimmy Gilmore Viral Capsid Antigen IgG Result Interpretation: </= 0.8 Al Negative 0.9-1.0 Al Equivocal >/= 1.1 Al Positive Lab Interpretation (test Abnormal code = 42205-3) [facility] CenterEBV-VCA antibody, [id number] 11:41:04 Test Item Value Reference Range Interpretation Comments JIMMY GILMORE VIRAL Negative Negative, CAPSID ANTIGEN IGM (test Equivocal code = 3418) SOPHIA (test code = SOPHIA) Jimmy Gilmore Viral Capsid Antigen IgM Result Interpretation: </= 0.8 Al Negative 0.9-1.0 Al Equivocal >/= 1.1 Al Positive Lab Interpretation (test Normal code = 08927-8) [facility] CenterCytomegalovirus antibody, [id number] 11:41:04 Test Item Value Reference Range Interpretation Comments CYTOMEGALOVIRUS, IGG Positive Negative, A (test code = 3429) Equivocal SOPHIA (test code = SOPHIA) CMV IgG Result Interpretation: </= 0.8 Al Negative 0.9-1.0 Al Equivocal >/=1.1 Al Positive Lab Interpretation (test Abnormal code = 53070-0) [facility] CenterEBV-VCA antibody, [id number] 11:41:04 Test Item Value Reference Range Interpretation Comments JIMMY GILMORE VIRAL Positive Negative, A CAPSID ANTIGEN IGG (test Equivocal code = 3415) SOPHIA (test code = SOPHIA) Jimmy Gilmore Viral Capsid Antigen IgG Result Interpretation: </= 0.8 Al Negative 0.9-1.0 Al Equivocal >/= 1.1 Al Positive Lab Interpretation (test Abnormal code = 08899-0) [facility] CenterEBV-VCA antibody, [id number] 11:41:04 Test Item Value Reference Range Interpretation Comments JIMMY GILMORE VIRAL Negative Negative, CAPSID ANTIGEN IGM (test Equivocal code = 3418) SOPHIA (test code = SOPHIA) Jimmy Gilmore Viral Capsid Antigen IgM Result Interpretation: </= 0.8 Al Negative 0.9-1.0 Al Equivocal >/= 1.1 Al Positive Lab Interpretation (test Normal code = 15296-0) [facility] CenterCytomegalovirus antibody, [id number] 11:41:04 Test Item Value Reference Range Interpretation Comments CYTOMEGALOVIRUS, IGG Positive Negative, A (test code = 3429) Equivocal SOPHIA (test code = SOPHIA) CMV IgG Result Interpretation: </= 0.8 Al Negative 0.9-1.0 Al Equivocal >/=1.1 Al Positive Lab Interpretation (test Abnormal code = 00407-2) [facility] CenterEBV ANTIBODY, [id number] 11:41:04 Test Item Value Reference Range Interpretation Comments JIMMY GILMORE VIRAL CAPSID Negative Negative, Equivocal ANTIGEN IGM (BEAKER) (test code = 3418) Jimmy Gilmore Viral Capsid Antigen IgM Result Interpretation: </= 0.8 Al Negative 0.9-1.0 Al Equivocal >/= 1.1 Al PositiveEBV ANTIBODY, [id number] 11:41:04 Test Item Value Reference Range Interpretation Comments JIMMY GILMORE VIRAL CAPSID Positive Negative, Equivocal A ANTIGEN IGG (nanoThericsFELICIANO) (test code = 3415) Jimmy Gilmore Viral Capsid Antigen IgG Result Interpretation: </= 0.8 Al Negative 0.9-1.0 Al Equivocal >/= 1.1 Al PositiveCYTOMEGALOVIRUS ANTIBODY, [id number] 11:41:04 Test Item Value Reference Range Interpretation Comments CYTOMEGALOVIRUS, IGG (nanoThericsAKER) Positive Negative, Equivocal A (test code = 3429) CMV IgG Result Interpretation: </= 0.8 Al Negative 0.9-1.0 Al Equivocal >/=1.1 Al PositivePOCT-GLUCOSE [id number] 11:24:58 Test Item Value Reference Range Interpretation Comments POC-GLUCOSE METER 165 mg/dL 70-110 H : TESTED A T [facility] 67[facility] ([facility] (test code = K[facility]YA [place]ON[facility] [place], 1538) [address]: Music Therapy Specialist/Techni grisel ID = [id number] for MIHIR DIAZ Anti-Nuclear Antibody (MORENA)2021-06-04 09:49:08 Test Item Value Reference Range Interpretation Comments MORENA (test code = 41500-0) Negative Negative SOPHIA (test code = SOPHIA) Test performed by IFA method.Test performed by IFA method. Lab Interpretation (test Normal code = 55025-0) [facility] CenterAnti-[facility]uclear Antibody (MORENA)2021-06-04 09:49:08 Test Item Value Reference Range Interpretation Comments MORENA (test code = 55728-7) Negative Negative SOPHIA (test code = SOPHIA) Test performed by IFA method.Test performed by IFA method. Lab Interpretation (test Normal code = 52698-8) [facility] CenterAnti-Nuclear Antibody (MORENA)2021-06-04 09:49:08 Test Item Value Reference Range Interpretation Comments MORENA (test code = 69697-4) Negative Negative SOPHIA (test code = SOPHIA) Test performed by IFA method.Test performed by IFA method. Lab Interpretation (test Normal code = 62551-2) [facility] CenterAnti-[facility]uclear Antibody (MORENA)2021-06-04 09:49:08 Test Item Value Reference Range Interpretation Comments MORENA (test code = 92605-6) Negative Negative SOPHIA (test code = SOPHIA) Test performed by IFA method.Test performed by IFA method. Lab Interpretation (test Normal code = 27541-6) [facility] CenterAnti-Nuclear Antibody (MORENA)2021-06-04 09:49:08 Test Item Value Reference Range Interpretation Comments MORENA (test code = 66280-2) Negative Negative SOPHIA (test code = SOPHIA) Test performed by IFA method.Test performed by IFA method. Lab Interpretation (test Normal code = 25786-1) [facility] CenterAnti-[facility]uclear Antibody (MORENA)2021-06-04 09:49:08 Test Item Value Reference Range Interpretation Comments MORENA (test code = 34629-6) Negative Negative SOPHIA (test code = SOPHIA) Test performed by IFA method.Test performed by IFA method. Lab Interpretation (test Normal code = 70000-6) [facility] CenterAnti-[facility]uclear Antibody (MORENA)2021-06-04 09:49:08 Test Item Value Reference Range Interpretation Comments MORENA (test code = 81994-7) Negative Negative SOPHIA (test code = SOPHIA) Test performed by IFA method.Test performed by IFA method. Lab Interpretation (test Normal code = 09629-4) [facility] CenterANTI-NUCLEAR ANTIBODY (MORENA)2021-06-04 09:49:08 Test Item Value Reference Range Interpretation Comments ANTI-NUCLEAR ANTIBODY (MORENA) (BEAKER) Negative Negative (test code = 418) Test performed by IFA method.Test performed by IFA method.Hemoglobin A1c 2021-06-04 09:31:32 Test Item Value Reference Range Interpretation Comments Hemoglobin A1C (test code = 4548-4) 7.4 % 4.3-6.1 H Lab Interpretation (test code = Abnormal 69785-7) [facility] CenterHemoglobin [id number] 09:31:32 Test Item Value Reference Range Interpretation Comments Hemoglobin A1C (test code = 4548-4) 7.4 % 4.3-6.1 H Lab Interpretation (test code = Abnormal 57210-2) [facility] CenterHemoglobin [id number] 09:31:32 Test Item Value Reference Range Interpretation Comments Hemoglobin A1C (test code = 4548-4) 7.4 % 4.3-6.1 H Lab Interpretation (test code = Abnormal 73575-0) [facility] CenterHemoglobin [id number] 09:31:32 Test Item Value Reference Range Interpretation Comments Hemoglobin A1C (test code = 4548-4) 7.4 % 4.3-6.1 H Lab Interpretation (test code = Abnormal 27287-0) [facility] CenterHemoglobin [id number] 09:31:32 Test Item Value Reference Range Interpretation Comments Hemoglobin A1C (test code = 4548-4) 7.4 % 4.3-6.1 H Lab Interpretation (test code = Abnormal 29379-8) [facility] CenterHemoglobin [id number] 09:31:32 Test Item Value Reference Range Interpretation Comments Hemoglobin A1C (test code = 4548-4) 7.4 % 4.3-6.1 H Lab Interpretation (test code = Abnormal 88273-7) [facility] CenterHemoglobin [id number] 09:31:32 Test Item Value Reference Range Interpretation Comments Hemoglobin A1C (test code = 4548-4) 7.4 % 4.3-6.1 H Lab Interpretation (test code = Abnormal 51852-8) [facility] CenterHEMOGLOBIN [id number] 09:31:32 Test Item Value Reference Range Interpretation Comments HEMOGLOBIN A1C (BEAKER) (test code = 7.4 % 4.3-6.1 H 368) POCT-GLUCOSE [id number] 08:13:37 Test Item Value Reference Range Interpretation Comments POC-GLUCOSE METER 109 mg/dL 70-110 : TESTED A T [facility] 6720 (BEAKER) (test code = [facility] [place] [place], 1538) [address]: Music Therapy Specialist/Techni grisel ID = [id number] for [facility] [id number] 07:38:26 Test Item Value Reference Range Interpretation [...] (test code = 41 U/L 6-55 347) Music Therapy Specialist ID Darian COVARRUBIAS FSpecimen moderately [id number] 07:38:25 Test Item Value Reference Range Interpretation Comments PHOSPHORUS (BEAKER) (test code = 4.7 mg/dL 2.3-4.7 604) Music Therapy Specialist ID Darian COVARRUBIAS FBASIC METABOLIC [id number] 07:38:25 Test Item Value Reference Range Interpretation [...] S NOT APPLICABLE FOR DIALYSIS PATIEN TS. Music Therapy Specialist ID Darian COVARRUBIAS FSpecimen moderately [id number] 07:38:24 Test Item Value Reference Range Interpretation Comments MAGNESIUM (BEAKER) (test code = 1.9 mg/dL 1.6-2.6 627) Music Therapy Specialist ID Darian COVARRUBIAS FProthrombin time/[id number] 05:43:19 Test Item Value Reference Interpretation Comments Range Protime (test code = 13.5 See_Comment [Autom ated 5902-2) message] The system which generated this result transmitted reference range : 11.9 - 14.2 seconds. The reference range was not used to interpret this result as normal/abnormal . INR (test code = 1.05 See_Comment [Automated 4731-6) message] The system which generated this result [...] valves. Lab Interpretation Normal (test code = 27708-6) [facility] CenterProthrombin time/[id number] 05:43:19 Test Item Value Reference Interpretation Comments Range Protime (test code = 13.5 See_Comment [Autom ated 5902-2) message] The system which generated this result transmitted reference range : 11.9 - 14.2 seconds. The reference range was not used to interpret this result as normal/abnormal . INR (test code = 1.05 See_Comment [Automated 4331-6) message] The system which generated this result [...] valves. Lab Interpretation Normal (test code = 68104-6) [facility] CenterPROTHROMBIN TIME/[id number] 05:43:19 Test Item Value Reference Range Interpretation Comments PROTIME (BEAKER) 13.5 seconds 11.9-14.2 (test code = 759) INR (BEAKER) (test 1.05 See_Comment [Automat ed message] code = 370) The system [employer] h generated this result transmitted ref erence range: <=5.90. The reference range was not used to int erpret this result as normal/abnormal . RECOMMENDED COUMADIN/WARFARIN INR THERAPY RANGESSTANDARD DOSE: 2.0 - 3.0 Includes: PROPHYLAXIS for venous thrombosis, systemic embolization; TREATMENT for venous thrombosis and/or pulmonary embolus.HIGH RISK: Target INR is 2.5-3.5 for patients with mechanical heart valves.CBC W/PLT COUNT & AUTO [id number] 05:31:08 Test Item Value Reference Range Interpretation [...] PERCENT (BEAKER) (test code = 2801) POCT-GLUCOSE [id number] 21:27:11 Test Item Value Reference Range Interpretation Comments POC-GLUCOSE METER 126 mg/dL 70-110 H : TESTED A T [facility] 6720 (BEFELICIANO) (test code = KENYA Mcmullen [facility], 1538) 56547: Music Therapy Specialist/Techni grisel ID = [id number] for DA JORDON THOMASO HIV-1 Antigen with HIV-1/2 [id number] 18:15:07 Test Item Value Reference Range Interpretation Comments HIV-1 Antigen with HIV 1&2 Nonreactive Nonreactive Antibody (test code = 99100-5) SOPHIA (test code = SOPHIA) Music Therapy Specialist ID - BS Lab Interpretation (test Normal code = 03948-4) [facility] CenterHepatitis A antibody, [id number] 18:15:07 Test Item Value Reference Range Interpretation Comments Hep A IgG (test code = Nonreactive Nonreactive 65832-2) SOPHIA (test code = SOPHIA) Music Therapy Specialist ID - BS Lab Interpretation (test Normal code = 47076-3) [facility] CenterHIV-1 Antigen with HIV-1/2 [id number] 18:15:07 Test Item Value Reference Range Interpretation Comments HIV-1 Antigen with HIV 1&2 Nonreactive Nonreactive Antibody (test code = 63204-7) SOPHIA (test code = SOPHIA) Music Therapy Specialist ID - BS Lab Interpretation (test Normal code = 91790-4) [facility] CenterHepatitis A antibody, [id number] 18:15:07 Test Item Value Reference Range Interpretation Comments Hep A IgG (test code = Nonreactive Nonreactive 07235-7) SOPHIA (test code = SOPHIA) Music Therapy Specialist ID - BS Lab Interpretation (test Normal code = 32599-6) [facility] HIV-1/2 [id number] 18:15:07 Test Item Value Reference Range Interpretation Comments HIV-1 Antigen with HIV 1&2 Nonreactive Nonreactive Antibody (test code = 34869-7) SOPHIA (test code = SOPHIA) Music Therapy Specialist ID - BS Lab Interpretation (test Normal code = 83720-1) [facility] antibody, [id number] 18:15:07 Test Item Value Reference Range Interpretation Comments Hep A IgG (test code = Nonreactive Nonreactive 02487-7) SOPHIA (test code = SOPHIA) Music Therapy Specialist ID - BS Lab Interpretation (test Normal code = 81595-0) [facility] Ant[facility] with HIV-1/2 [id number] 18:15:07 Test Item Value Reference Range Interpretation Comments HIV-1 Antigen with HIV 1&2 Nonreactive Nonreactive Antibody (test code = 33733-2) SOPHIA (test code = SOPHIA) Music Therapy Specialist ID - BS Lab Interpretation (test Normal code = 45265-1) [facility], [id number] 18:15:07 Test Item Value Reference Range Interpretation Comments Hep A IgG (test code = Nonreactive Nonreactive 68395-3) SOPHIA (test code = SOPHIA) Music Therapy Specialist ID - BS Lab Interpretation (test Normal code = 36053-0) [facility] Antigen with HIV-1/2 [id number] 18:15:07 Test Item Value Reference Range Interpretation Comments HIV-1 Antigen with HIV 1&2 Nonreactive Nonreactive Antibody (test code = 16752-0) SOPHIA (test code = SOPHIA) Music Therapy Specialist ID - BS Lab Interpretation (test Normal code = 03002-7) [facility] antibody, [id number] 18:15:07 Test Item Value Reference Range Interpretation Comments Hep A IgG (test code = Nonreactive Nonreactive 40863-1) SOPHIA (test code = SOPHIA) Music Therapy Specialist ID - BS Lab Interpretation (test Normal code = 43293-3) [facility] Antigen with HIV-1/2 [id number] 18:15:07 Test Item Value Reference Range Interpretation Comments HIV-1 Antigen with HIV 1&2 Nonreactive Nonreactive Antibody (test code = 17356-5) SOPHIA (test code = SOPHIA) Music Therapy Specialist ID - BS Lab Interpretation (test Normal code = 83068-0) [facility] [id number] 18:15:07 Test Item Value Reference Range Interpretation Comments Hep A IgG (test code = Nonreactive Nonreactive 98584-6) SOPHIA (test code = SOPHIA) Music Therapy Specialist ID - BS Lab Interpretation (test Normal code = 88441-3) [facility] Antigen with HIV-1/2 [id number] 18:15:07 Test Item Value Reference Range Interpretation Comments HIV-1 Antigen with HIV 1&2 Nonreactive Nonreactive Antibody (test code = 28524-8) SOPHIA (test code = SOPHIA) Music Therapy Specialist ID - BS Lab Interpretation (test Normal code = 41676-1) [facility], [id number] 18:15:07 Test Item Value Reference Range Interpretation Comments Hep A IgG (test code = Nonreactive Nonreactive 76477-1) SOPHIA (test code = SOPHIA) Music Therapy Specialist ID - BS Lab Interpretation (test Normal code = 48512-0) [facility] ANTIGEN WITH HIV-1/2 [id number] 18:15:07 Test Item Value Reference Range Interpretation Comments HIV-1 ANTIGEN WITH HIV 1\\T\\2 Nonreactive Nonreactive ANTIBODY (2) (BEAKER) (test code = 2586) Music Therapy Specialist ID - BSHEPATITIS A ANTIBODY, [id number] 18:15:07 Test Item Value Reference Range Interpretation Comments HEPATITIS A IGG ANTIBODY (BEAKER) Nonreactive Nonreactive (test code = 2797) Music Therapy Specialist ID - BSHepatitis A antibody, [id number] 18:15:06 Test Item Value Reference Range Interpretation Comments Hep A IgM (test code = Nonreactive Nonreactive 50521-0) SOPHIA (test code = SOPHIA) Music Therapy Specialist ID - BS Lab Interpretation (test Normal code = 91523-6) [facility], [id number] 18:15:06 Test Item Value Reference Range Interpretation Comments Hep A IgM (test code = Nonreactive Nonreactive 74500-5) SOPHIA (test code = SOPHIA) Music Therapy Specialist ID - BS Lab Interpretation (test Normal code = 79950-9) [facility] antibody, [id number] 18:15:06 Test Item Value Reference Range Interpretation Comments Hep A IgM (test code = Nonreactive Nonreactive 76466-8) SOPHIA (test code = SOPHIA) Music Therapy Specialist ID - BS Lab Interpretation (test Normal code = 86077-7) [facility] A antibody, [id number] 18:15:06 Test Item Value Reference Range Interpretation Comments Hep A IgM (test code = Nonreactive Nonreactive 66920-7) SOPHIA (test code = SOPHIA) Music Therapy Specialist ID - BS Lab Interpretation (test Normal code = 45028-4) [facility] A antibody, [id number] 18:15:06 Test Item Value Reference Range Interpretation Comments Hep A IgM (test code = Nonreactive Nonreactive 91333-3) SOPHIA (test code = SOPHIA) Music Therapy Specialist ID - BS Lab Interpretation (test Normal code = 26184-5) [facility] A antibody, [id number] 18:15:06 Test Item Value Reference Range Interpretation Comments Hep A IgM (test code = Nonreactive Nonreactive 15824-1) SOPHIA (test code = SOPHIA) Music Therapy Specialist ID - BS Lab Interpretation (test Normal code = 34915-8) [facility] A antibody, [id number] 18:15:06 Test Item Value Reference Range Interpretation Comments Hep A IgM (test code = Nonreactive Nonreactive 27797-4) SOPHIA (test code = SOPHIA) Music Therapy Specialist ID - BS Lab Interpretation (test Normal code = 41997-0) [facility] [id number] 18:15:06 Test Item Value Reference Range Interpretation Comments HEPATITIS A IGM ANTIBODY (BEAKER) Nonreactive Nonreactive (test code = 498) Music Therapy Specialist ID - BSHepatitis B core antibody, [id number] 18:10:03 Test Item Value Reference Range Interpretation Comments Hep B Core Total Ab (test Nonreactive Nonreactive code = 26747-4) SOPHIA (test code = SOPHIA) Music Therapy Specialist ID - BS Lab Interpretation (test Normal code = 33036-1) [facility] [id number] 18:10:03 Test Item Value Reference Range Interpretation Comments Hepatitis C Ab (test code = Nonreactive Nonreactive 69353-3) SOPHIA (test code = SOPHIA) Music Therapy Specialist ID - BS Lab Interpretation (test Normal code = 37621-9) [facility] B core antibody, [id number] 18:10:03 Test Item Value Reference Range Interpretation Comments Hep B Core Total Ab (test Nonreactive Nonreactive code = 82091-2) SOPHIA (test code = SOPHIA) Music Therapy Specialist ID - BS Lab Interpretation (test Normal code = 80359-4) [facility] C [id number] 18:10:03 Test Item Value Reference Range Interpretation Comments Hepatitis C Ab (test code = Nonreactive Nonreactive 82543-3) SOPHIA (test code = SOPHIA) Music Therapy Specialist ID - BS Lab Interpretation (test Normal code = 02629-8) [facility] B core antibody, [id number] 18:10:03 Test Item Value Reference Range Interpretation Comments Hep B Core Total Ab (test Nonreactive Nonreactive code = 96138-1) SOPHIA (test code = SOPHIA) Music Therapy Specialist ID - BS Lab Interpretation (test Normal code = 30534-9) [facility] C [id number] 18:10:03 Test Item Value Reference Range Interpretation Comments Hepatitis C Ab (test code = Nonreactive Nonreactive 31517-5) SOPHIA (test code = SOPHIA) Music Therapy Specialist ID - BS Lab Interpretation (test Normal code = 99740-8) [facility] B core antibody, [id number] 18:10:03 Test Item Value Reference Range Interpretation Comments Hep B Core Total Ab (test Nonreactive Nonreactive code = 33552-5) SOPHIA (test code = SOPHIA) Music Therapy Specialist ID - BS Lab Interpretation (test Normal code = 06745-5) [facility] C [id number] 18:10:03 Test Item Value Reference Range Interpretation Comments Hepatitis C Ab (test code = Nonreactive Nonreactive 36964-9) SOPHIA (test code = SOPHIA) Music Therapy Specialist ID - BS Lab Interpretation (test Normal code = 55311-7) [facility] B core antibody, [id number] 18:10:03 Test Item Value Reference Range Interpretation Comments Hep B Core Total Ab (test Nonreactive Nonreactive code = 66992-9) SOPHIA (test code = SOPHIA) Music Therapy Specialist ID - BS Lab Interpretation (test Normal code = 65882-6) [facility] [id number] 18:10:03 Test Item Value Reference Range Interpretation Comments Hepatitis C Ab (test code = Nonreactive Nonreactive 94639-3) SOPHIA (test code = SOPHIA) Music Therapy Specialist ID - BS Lab Interpretation (test Normal code = 51935-8) [facility], [id number] 18:10:03 Test Item Value Reference Range Interpretation Comments Hep B Core Total Ab (test Nonreactive Nonreactive code = 30100-4) SOPHIA (test code = SOPHIA) Music Therapy Specialist ID - BS Lab Interpretation (test Normal code = 74768-1) [facility] [id number] 18:10:03 Test Item Value Reference Range Interpretation Comments Hepatitis C Ab (test code = Nonreactive Nonreactive 28589-8) SOPHIA (test code = SOPHIA) Music Therapy Specialist ID - BS Lab Interpretation (test Normal code = 46316-9) [facility] B core antibody, [id number] 18:10:03 Test Item Value Reference Range Interpretation Comments Hep B Core Total Ab (test Nonreactive Nonreactive code = 64399-8) SOPHIA (test code = SOPHIA) Music Therapy Specialist ID - BS Lab Interpretation (test Normal code = 95697-7) [facility] [id number] 18:10:03 Test Item Value Reference Range Interpretation Comments Hepatitis C Ab (test code = Nonreactive Nonreactive 93474-1) SOPHIA (test code = SOPHIA) Music Therapy Specialist ID - BS Lab Interpretation (test Normal code = 13072-6) [facility] [id number] 18:10:03 Test Item Value Reference Range Interpretation Comments HEPATITIS C ANTIBODY (BEAKER) Nonreactive Nonreactive (test code = 367) Music Therapy Specialist ID - [facility] CORE ANTIBODY, [id number] 18:10:03 Test Item Value Reference Range Interpretation Comments HEPATITIS B CORE TOTAL ANTIBODY Nonreactive Nonreactive (BEAKER) (test code = 497) Music Therapy Specialist ID - [facility]SHede[facility] systemtis B surface [id number] 18:10:02 Test Item Value Reference Range Interpretation Comments Hepatitis B surface Nonreactive Nonreactive antigen (test code = 5195-3) SOPHIA (test code = SOPHIA) Specimen is considered negative for HBsAg. Lab Interpretation (test Normal code = 24655-3) [facility] CenterCarcinoembryonic Antigen (CEA)2021-06-03 18:10:02 Test Item Value Reference Range Interpretation Comments CEA, SERUM (test code = 3.3 ng/mL 0.0-5.0 2038-6) SOPHIA (test code = SOPHIA) Music Therapy Specialist ID - BS Lab Interpretation (test Normal code = 31268-4) [facility] CenterHep[facility] surface [id number] 18:10:02 Test Item Value Reference Range Interpretation Comments Hepatitis B surface Nonreactive Nonreactive antigen (test code = 5195-3) SOPHIA (test code = SOPHIA) Specimen is considered negative for HBsAg. Lab Interpretation (test Normal code = 35182-1) [facility] CenterCarcinoembryonic Antigen (CEA)2021-06-03 18:10:02 Test Item Value Reference Range Interpretation Comments CEA, SERUM (test code = 3.3 ng/mL 0.0-5.0 2038-) SOPHIA (test code = SOPHIA) Music Therapy Specialist ID - BS Lab Interpretation (test Normal code = 03998-1) [facility] CenterHep[facility] surface [id number] 18:10:02 Test Item Value Reference Range Interpretation Comments Hepatitis B surface Nonreactive Nonreactive antigen (test code = 5195-3) SOPHIA (test code = SOPHIA) Specimen is considered negative for HBsAg. Lab Interpretation (test Normal code = 92923-6) [facility] CenterCarcinoembryonic Antigen (CEA)2021-06-03 18:10:02 Test Item Value Reference Range Interpretation Comments CEA, SERUM (test code = 3.3 ng/mL 0.0-5.0 2038-) SOPHIA (test code = SOPHIA) Music Therapy Specialist ID - BS Lab Interpretation (test Normal code = 53397-2) [facility] CenterHep[facility] surface [id number] 18:10:02 Test Item Value Reference Range Interpretation Comments Hepatitis B surface Nonreactive Nonreactive antigen (test code = 5195-3) SOPHIA (test code = SOPHIA) Specimen is considered negative for HBsAg. Lab Interpretation (test Normal code = 03930-4) [facility] CenterCarcinoembryonic Antigen (CEA)2021-06-03 18:10:02 Test Item Value Reference Range Interpretation Comments CEA, SERUM (test code = 3.3 ng/mL 0.0-5.0 2038-) SOPHIA (test code = SOPHIA) Music Therapy Specialist ID - BS Lab Interpretation (test Normal code = 73906-8) [facility] CenterHep[facility] B surface [id number] 18:10:02 Test Item Value Reference Range Interpretation Comments HBsAg Screen (test code Nonreactive Nonreactive = 5195-3) SOPHIA (test code = SOPHIA) Specimen is considered negative for HBsAg. Lab Interpretation (test Normal code = 70441-6) [facility] CenterCarcinoembryonic Antigen (CEA)2021-06-03 18:10:02 Test Item Value Reference Range Interpretation Comments CEA, SERUM (test code = 3.3 ng/mL 0.0-5.0 2038-11) SOPHIA (test code = SOPHIA) Music Therapy Specialist ID - BS Lab Interpretation (test Normal code = 25793-1) [facility] [id number] 18:10:02 Test Item Value Reference Range Interpretation Comments HBsAg Screen (test code Nonreactive Nonreactive = 5195-3) SOPHIA (test code = SOPHIA) Specimen is considered negative for HBsAg. Lab Interpretation (test Normal code = 83343-4) [facility] CenterCarcinoembryonic Antigen (CEA)2021-06-03 18:10:02 Test Item Value Reference Range Interpretation Comments CEA, SERUM (test code = 3.3 ng/mL 0.0-5.0 2038-11) SOPHIA (test code = SOPHIA) Music Therapy Specialist ID - BS Lab Interpretation (test Normal code = 33574-4) [facility] CenterHep[facility] surface [id number] 18:10:02 Test Item Value Reference Range Interpretation Comments Hepatitis B surface Nonreactive Nonreactive antigen (test code = 5195-3) SOPHIA (test code = SOPHIA) Specimen is considered negative for HBsAg. Lab Interpretation (test Normal code = 65861-7) [facility] CenterCarcinoembryonic Antigen (CEA)2021-06-03 18:10:02 Test Item Value Reference Range Interpretation Comments CEA, SERUM (test code = 3.3 ng/mL 0.0-5.0 2038-11) SOPHIA (test code = SOPHIA) Music Therapy Specialist ID - BS Lab Interpretation (test Normal code = 11833-4) [facility] CenterCARCINOEMBRYONIC ANTIGEN (CEA)2021-06-03 18:10:02 Test Item Value Reference Range Interpretation Comments CARCINOEMBRYONIC ANTIGEN (BEAKER) 3.3 ng/mL 0.0-5.0 (test code = 685) Music Therapy Specialist ID - BSHEPATITIS B SURFACE [id number] 18:10:02 Test Item Value Reference Range Interpretation Comments HEPATITIS B SURFACE ANTIGEN (2) Nonreactive Nonreactive (BEAKER) (test code = 2585) Specimen is considered negative for HBsAg.POCT-GLUCOSE [id number] 17:40:09 Test Item Value Reference Range Interpretation Comments POC-GLUCOSE METER 130 mg/dL 70-110 H : TESTED A T BSC 6720 (BEAKER) (test code = PETELORENZO QUINONES [place], 1538) 67883: Music Therapy Specialist/Techni grisel ID = [id number] for MIHIR DIAZ Bilirubin, [id number] 16:43:09 Test Item Value Reference Range Interpretation Comments Bilirubin, Direct 5.6 mg/dL 0.1-0.5 H Specimen (test code = 1967-12) slightl y hemolyzed SOPHIA (test code = SOPIHA) Music Therapy Specialist ID - BS Lab Interpretation Abnormal (test code = 86587-6) [facility] CenterBilirubin, [id number] 16:43:09 Test Item Value Reference Range Interpretation Comments Bilirubin, Direct 5.6 mg/dL 0.1-0.5 H Specimen (test code = 1967-12) slightl y hemolyzed SOPHIA (test code = SOPHIA) Music Therapy Specialist ID - BS Lab Interpretation Abnormal (test code = 36840-4) [facility] CenterBilirubin, [id number] 16:43:09 Test Item Value Reference Range Interpretation Comments Bilirubin, Direct 5.6 mg/dL 0.1-0.5 H Specimen (test code = 1967-12) slightl y hemolyzed SOPHIA (test code = SOPHIA) Music Therapy Specialist ID - BS Lab Interpretation Abnormal (test code = 87909-3) [facility] CenterBilirubin, [id number] 16:43:09 Test Item Value Reference Range Interpretation Comments Bilirubin, Direct 5.6 mg/dL 0.1-0.5 H Specimen (test code = 1967-12) slightl y hemolyzed SOPHIA (test code = SOPHIA) Music Therapy Specialist ID - BS Lab Interpretation Abnormal (test code = 49922-0) [facility] CenterBilirubin, [id number] 16:43:09 Test Item Value Reference Range Interpretation Comments Bilirubin, Direct 5.6 mg/dL 0.1-0.5 H Specimen (test code = 1967-12) slightl y hemolyzed SOPHIA (test code = SOPHIA) Music Therapy Specialist ID - BS Lab Interpretation Abnormal (test code = 85671-5) [facility] CenterBilirubin, [id number] 16:43:09 Test Item Value Reference Range Interpretation Comments Bilirubin, Direct 5.6 mg/dL 0.1-0.5 H Specimen (test code = 1967-12) slightl y hemolyzed SOPHIA (test code = SOPHIA) Music Therapy Specialist ID - BS Lab Interpretation Abnormal (test code = 12953-9) [facility] CenterBilirubin, [id number] 16:43:09 Test Item Value Reference Range Interpretation Comments Bilirubin, Direct 5.6 mg/dL 0.1-0.5 H Specimen (test code = 1967-12) slightl y hemolyzed SOPHIA (test code = SOPHIA) Music Therapy Specialist ID - BS Lab Interpretation Abnormal (test code = 14179-9) [facility] CenterBILIRUBIN, [id number] 16:43:09 Test Item Value Reference Range Interpretation Comments BILIRUBIN DIRECT 5.6 mg/dL 0.1-0.5 H Specimen sl ightly (BEAKER) (test code = hemoly zed 706) Music Therapy Specialist ID - BSLipid [id number] 16:43:03 Test Item Value Reference Range Interpretation Comments Triglycerides (test 352 mg/dL Specimen code = 2571-8) slightly hemolyzed Cholesterol (test 234 mg/dL Specimen code = 2093-3) slightly hemolyzed HDL (test code = 11 mg/dL 2084-9) LDL Calculated (test 153 mg/dL code = 80901-0) SOPHIA (test code = Triglyceride SOPHIA) Reference Range: Low Risk <150 Borderline 150-199 High Risk 200-499 Very High Risk >=500 Cholesterol Reference Range: Low Risk <200 Borderline 200-239 High Risk >240 HDL Cholesterol Reference Range: Low Risk >=60 High Risk <40 LDL Cholesterol Reference Range: Optimal <100 Near Optimal 100-129 Borderline 130-159 High 160-189 Very High >=190 Music Therapy Specialist ID - BSSpecimen moderately icteric [facility] CenterLipid [id number] 16:43:03 Test Item Value Reference Range Interpretation Comments Triglycerides (test 352 mg/dL Specimen code = 2571-8) slightly hemolyzed Cholesterol (test 234 mg/dL Specimen code = 3-3) slightly hemolyzed HDL (test code = 11 mg/dL 2085-02) LDL Calculated (test 153 mg/dL code = 96598-5) SOPHIA (test code = Triglyceride SOPHIA) Reference Range: Low Risk <150 Borderline 150-199 High Risk 200-499 Very High Risk >=500 Cholesterol Reference Range: Low Risk <200 Borderline 200-239 High Risk >240 HDL Cholesterol Reference Range: Low Risk >=60 High Risk <40 LDL Cholesterol Reference Range: Optimal <100 Near Optimal 100-129 Borderline 130-159 High 160-189 Very High >=190 Music Therapy Specialist ID - BSSpecimen moderately icteric [facility] CenterLipid [id number] 16:43:03 Test Item Value Reference Range Interpretation Comments Triglycerides (test 352 mg/dL Specimen code = 2571-8) slightly hemolyzed Cholesterol (test 234 mg/dL Specimen code = 2092-3) slightly hemolyzed HDL (test code = 11 mg/dL 2085-02) LDL Calculated (test 153 mg/dL code = 37703-9) SOPHIA (test code = Triglyceride SOPHIA) Reference Range: Low Risk <150 Borderline 150-199 High Risk 200-499 Very High Risk >=500 Cholesterol Reference Range: Low Risk <200 Borderline 200-239 High Risk >240 HDL Cholesterol Reference Range: Low Risk >=60 High Risk <40 LDL Cholesterol Reference Range: Optimal <100 Near Optimal 100-129 Borderline 130-159 High 160-189 Very High >=190 Music Therapy Specialist ID - BSSpecimen moderately icteric [facility] CenterLipid [id number] 16:43:03 Test Item Value Reference Range Interpretation Comments Triglycerides (test 352 mg/dL Specimen code = 2571-8) slightly hemolyzed Cholesterol (test 234 mg/dL Specimen code = 3-3) slightly hemolyzed HDL (test code = 11 mg/dL 2085-02) LDL Calculated (test 153 mg/dL code = 17690-6) SOPHIA (test code = Triglyceride SOPHIA) Reference Range: Low Risk <150 Borderline 150-199 High Risk 200-499 Very High Risk >=500 Cholesterol Reference Range: Low Risk <200 Borderline 200-239 High Risk >240 HDL Cholesterol Reference Range: Low Risk >=60 High Risk <40 LDL Cholesterol Reference Range: Optimal <100 Near Optimal 100-129 Borderline 130-159 High 160-189 Very High >=190 Music Therapy Specialist ID - BSSpecimen moderately icteric [facility] CenterLipid [id number] 16:43:03 Test Item Value Reference Range Interpretation Comments Triglycerides (test 352 mg/dL Specimen code = 2571-8) slightly hemolyzed Cholesterol (test 234 mg/dL Specimen code = 2092-08) slightly hemolyzed HDL (test code = 11 mg/dL 2085-02) LDL Calculated (test 153 mg/dL code = 09596-9) SOPHIA (test code = Triglyceride SOPHIA) Reference Range: Low Risk <150 Borderline 150-199 High Risk 200-499 Very High Risk >=500 Cholesterol Reference Range: Low Risk <200 Borderline 200-239 High Risk >240 HDL Cholesterol Reference Range: Low Risk >=60 High Risk <40 LDL Cholesterol Reference Range: Optimal <100 Near Optimal 100-129 Borderline 130-159 High 160-189 Very High >=190 Music Therapy Specialist ID - BSSpecimen moderately icteric [facility] CenterLipid [id number] 16:43:03 Test Item Value Reference Range Interpretation Comments Triglycerides (test 352 mg/dL Specimen code = 2571-8) slightly hemolyzed Cholesterol (test 234 mg/dL Specimen code = 2092-08) slightly hemolyzed HDL (test code = 11 mg/dL 2085-02) LDL Calculated (test 153 mg/dL code = 12477-7) SOPHIA (test code = Triglyceride SOPHIA) Reference Range: Low Risk <150 Borderline 150-199 High Risk 200-499 Very High Risk >=500 Cholesterol Reference Range: Low Risk <200 Borderline 200-239 High Risk >240 HDL Cholesterol Reference Range: Low Risk >=60 High Risk <40 LDL Cholesterol Reference Range: Optimal <100 Near Optimal 100-129 Borderline 130-159 High 160-189 Very High >=190 Music Therapy Specialist ID - BSSpecimen moderately icteric [facility] CenterLipid [id number] 16:43:03 Test Item Value Reference Range Interpretation Comments Triglycerides (test 352 mg/dL Specimen code = 2571-8) slightly hemolyzed Cholesterol (test 234 mg/dL Specimen code = 2093-3) slightly hemolyzed HDL (test code = 11 mg/dL 5-9) LDL Calculated (test 153 mg/dL code = 70587-4) SOPHIA (test code = Triglyceride SOPHIA) Reference Range: Low Risk <150 Borderline 150-199 High Risk 200-499 Very High Risk >=500 Cholesterol Reference Range: Low Risk <200 Borderline 200-239 High Risk >240 HDL Cholesterol Reference Range: Low Risk >=60 High Risk <40 LDL Cholesterol Reference Range: Optimal <100 Near Optimal 100-129 Borderline 130-159 High 160-189 Very High >=190 Music Therapy Specialist ID - BSSpecimen moderately icteric [facility] CenterLIPID [id number] 16:43:03 Test Item Value Reference Range Interpretation [...] Borderline 130-159 High 160-189 Very High >=190 Music Therapy Specialist ID - BSSpecimen moderately mjiqxbaQsbou-2-ltfsrhlsbcl7435-12-14 16:26:58 Test Item Value Reference Range Interpretation Comments A-1 Antitrypsin (test code = 235.60 mg/dL 90.00-200.00 H 1825-9) SOPHIA (test code = SOPHIA) Music Therapy Specialist ID - BS Lab Interpretation (test Abnormal code = 24182-7) [facility]FfxjtoVhmco-4-bbuhkqsarig2098-12-14 16:26:58 Test Item Value Reference Range Interpretation Comments A-1 Antitrypsin (test code = 235.60 mg/dL 90.00-200.00 H 1825-9) SOPHIA (test code = SOPHIA) Music Therapy Specialist ID - BS Lab Interpretation (test Abnormal code = 31251-2) [facility] CenterNqkghxLhizs-0-fhibqfmjamk4522-12-14 16:26:58 Test Item Value Reference Range Interpretation Comments A-1 Antitrypsin (test code = 235.60 mg/dL 90.00-200.00 H 1825-9) SOPHIA (test code = SOPHIA) Music Therapy Specialist ID - BS Lab Interpretation (test Abnormal code = 22126-6) [facility] CenterUdfhecWengw-5-rpdmgkmxbyl8552-12-14 16:26:58 Test Item Value Reference Range Interpretation Comments A-1 Antitrypsin (test code = 235.60 mg/dL 90.00-200.00 H 1825-9) SOPHIA (test code = SOPHIA) Music Therapy Specialist ID - BS Lab Interpretation (test Abnormal code = 80090-9) [facility] CenterWgbkxwDbeym-3-zhufgbsumvb3429-12-14 16:26:58 Test Item Value Reference Range Interpretation Comments A-1 Antitrypsin (test code = 235.60 mg/dL 90.00-200.00 H 1825-9) SOPHIA (test code = SOPHIA) Music Therapy Specialist ID - BS Lab Interpretation (test Abnormal code = 47094-2) [facility] CenterUhdktjVvifx-4-qbovnobxjbc0756-12-14 16:26:58 Test Item Value Reference Range Interpretation Comments A-1 Antitrypsin (test code = 235.60 mg/dL 90.00-200.00 H 1825-9) SOPHIA (test code = SOPHIA) Music Therapy Specialist ID - BS Lab Interpretation (test Abnormal code = 46138-9) [facility] CenterHsrwloIyfsd-0-vizqvrgmuet4030-12-14 16:26:58 Test Item Value Reference Range Interpretation Comments A-1 Antitrypsin (test code = 235.60 mg/dL 90.00-200.00 H 1825-9) SOPHIA (test code = SOPHIA) Music Therapy Specialist ID - BS Lab Interpretation (test Abnormal code = 01083-8) [facility] CenterEbavowHEBSB-0-CEFWEFJUXZW5959-12-14 16:26:58 Test Item Value Reference Range Interpretation Comments ALPHA-1 ANTITRYPSIN (BEAKER) 235.60 mg/dL 90.00-200.00 H (test code = 502) Music Therapy Specialist ID - [id number] 15:33:02 Test Item Value Reference Range Interpretation Comments Ferritin (test code = 174.69 ng/mL 5.00-275.00 2276-4) SOPHIA (test code = SOPHIA) Music Therapy Specialist ID - BS Lab Interpretation (test Normal code = 61007-0) [facility] CenterFerritin2021-[facility]-14 15:33:02 Test Item Value Reference Range Interpretation Comments Ferritin (test code = 174.69 ng/mL 5.00-275.00 2276-4) SOPHIA (test code = SOPHIA) Music Therapy Specialist ID - BS Lab Interpretation (test Normal code = 32563-5) [facility] CenterFer[facility]in20[facility]-14 15:33:02 Test Item Value Reference Range Interpretation Comments Ferritin (test code = 174.69 ng/mL 5.00-275.00 2276-4) SOPHIA (test code = SOPHIA) Music Therapy Specialist ID - BS Lab Interpretation (test Normal code = 53451-3) [facility] Center[facility]in20[facility] 15:33:02 Test Item Value Reference Range Interpretation Comments Ferritin (test code = 174.69 ng/mL 5.00-275.00 2276-4) SOPHIA (test code = SOPHIA) Music Therapy Specialist ID - BS Lab Interpretation (test Normal code = 01018-3) [facility] Center[facility]in20[facility]-14 15:33:02 Test Item Value Reference Range Interpretation Comments Ferritin (test code = 174.69 ng/mL 5.00-275.00 2276-4) SOPHIA (test code = SOPHIA) Music Therapy Specialist ID - BS Lab Interpretation (test Normal code = 19452-6) [facility] Center[facility]in20[facility]-14 15:33:02 Test Item Value Reference Range Interpretation Comments Ferritin (test code = 174.69 ng/mL 5.00-275.00 2276-4) SOPHIA (test code = SOPHIA) Music Therapy Specialist ID - BS Lab Interpretation (test Normal code = 83411-6) [facility] Center[facility]in20[facility]-14 15:33:02 Test Item Value Reference Range Interpretation Comments Ferritin (test code = 174.69 ng/mL 5.00-275.00 2276-4) SOPHIA (test code = SOPHIA) Music Therapy Specialist ID - BS Lab Interpretation (test Normal code = 54998-0) [facility] CenterFERRITIN2021-[facility]-14 15:33:02 Test Item Value Reference Range Interpretation Comments FERRITIN (BEAKER) (test code = 174.69 ng/mL 5.00-275.00 361) Music Therapy Specialist ID - BSIron, TIBC, % sat. (without ferritin)2021-06-03 15:12:01 Test Item Value Reference Range Interpretation Comments Iron (test code = 2498-4) 103.0 ug/dL 40.0-160.0 TIBC (test code = 2500-7) 384 ug/dL 250-450 Iron % Saturation (test code 27 % 20-55 = 2502-3) SOPHIA (test code = SOPHIA) Music Therapy Specialist ID - BS Lab Interpretation (test Normal code = 11890-1) [facility] CenterIron, TIBC, % sat. (without ferritin)2021-06-03 15:12:01 Test Item Value Reference Range Interpretation Comments Iron (test code = 2498-4) 103.0 ug/dL 40.0-160.0 TIBC (test code = 2500-7) 384 ug/dL 250-450 Iron % Saturation (test code 27 % 20-55 = 2502-3) SOPHIA (test code = SOPHIA) Music Therapy Specialist ID - BS Lab Interpretation (test Normal code = 98483-8) [facility] CenterIron, TIBC, % sat. (without ferritin)2021-06-03 15:12:01 Test Item Value Reference Range Interpretation Comments Iron (test code = 2498-4) 103.0 ug/dL 40.0-160.0 TIBC (test code = 2500-7) 384 ug/dL 250-450 Iron % Saturation (test code 27 % 20-55 = 2502-3) SOPHIA (test code = SOPHIA) Music Therapy Specialist ID - BS Lab Interpretation (test Normal code = 98359-2) [facility] CenterIron, TIBC, % sat. (without ferritin)2021-06-03 15:12:01 Test Item Value Reference Range Interpretation Comments Iron (test code = 2498-4) 103.0 ug/dL 40.0-160.0 TIBC (test code = 2500-7) 384 ug/dL 250-450 Iron % Saturation (test code 27 % 20-55 = 2502-3) SOPHIA (test code = SOPHIA) Music Therapy Specialist ID - BS Lab Interpretation (test Normal code = 95082-5) [facility], TIBC, % sat. (without ferritin)2021-06-03 15:12:01 Test Item Value Reference Range Interpretation Comments Iron (test code = 2498-4) 103.0 ug/dL 40.0-160.0 TIBC (test code = 2500-7) 384 ug/dL 250-450 Iron % Saturation (test code 27 % 20-55 = 2502-3) SOPHIA (test code = SOPHIA) Music Therapy Specialist ID - BS Lab Interpretation (test Normal code = 49011-6) [facility], TIBC, % sat. (without ferritin)2021-06-03 15:12:01 Test Item Value Reference Range Interpretation Comments Iron (test code = 2498-4) 103.0 ug/dL 40.0-160.0 TIBC (test code = 2500-7) 384 ug/dL 250-450 Iron % Saturation (test code 27 % 20-55 = 2502-3) SOPHIA (test code = SOPHIA) Music Therapy Specialist ID - BS Lab Interpretation (test Normal code = 35781-3) [facility], TIBC, % sat. (without ferritin)2021-06-03 15:12:01 Test Item Value Reference Range Interpretation Comments Iron (test code = 2498-4) 103.0 ug/dL 40.0-160.0 TIBC (test code = 2500-7) 384 ug/dL 250-450 Iron % Saturation (test code 27 % 20-55 = 2502-3) SOPHIA (test code = SOPHIA) Music Therapy Specialist ID - BS Lab Interpretation (test Normal code = 47111-3) [facility], TIBC, % SAT. (WITHOUT FERRITIN)2021-06-03 15:12:01 Test Item Value Reference Range Interpretation Comments IRON (BEAKER) (test code = 547) 103.0 ug/dL 40.0-160.0 TOTAL IRON BINDING CAPACITY 384 ug/dL 250-450 (BEAKER) (test code = 769) IRON % SATURATION (2) (BEAKER) 27 % 20-55 (test code = 2590) Music Therapy Specialist ID - BSAlpha fetoprotein (AFP), tumor [id number] 12:08:22 Test Item Value Reference Range Interpretation Comments Alpha-Fetoprotein (test 2.0 ng/mL <10.0 code = 1834-1) SOPHIA (test code = SOPHIA) Music Therapy Specialist ID - CAROLINA F Lab Interpretation (test Normal code = 60484-2) [facility] CenterAlpha fetoprotein (AFP), tumor [id number] 12:08:22 Test Item Value Reference Range Interpretation Comments Alpha-Fetoprotein (test 2.0 ng/mL <10.0 code = 1834-1) SOPHIA (test code = SOPHIA) Music Therapy Specialist ID - CAROLINA F Lab Interpretation (test Normal code = 35099-6) [facility] CenterAlpha fetoprotein (AFP), tumor [id number] 12:08:22 Test Item Value Reference Range Interpretation Comments Alpha-Fetoprotein (test 2.0 ng/mL <10.0 code = 1834-1) SOPHIA (test code = SOPHIA) Music Therapy Specialist ID - CAROLINA F Lab Interpretation (test Normal code = 06671-7) [facility] CenterAlpha fetoprotein (AFP), tumor [id number] 12:08:22 Test Item Value Reference Range Interpretation Comments Alpha-Fetoprotein (test 2.0 ng/mL <10.0 code = 1834-1) SOPHIA (test code = SOPHIA) Music Therapy Specialist ID - CAROLINA F Lab Interpretation (test Normal code = 56991-6) [facility] CenterAlpha fetoprotein (AFP), tumor [id number] 12:08:22 Test Item Value Reference Range Interpretation Comments Alpha-Fetoprotein (test 2.0 ng/mL <10.0 code = 1834-1) SOPHIA (test code = SOPHIA) Music Therapy Specialist ID - CAROLINA F Lab Interpretation (test Normal code = 10343-1) [facility] CenterAlpha fetoprotein (AFP), tumor [id number] 12:08:22 Test Item Value Reference Range Interpretation Comments Alpha-Fetoprotein (test 2.0 ng/mL <10.0 code = 1834-1) SOPHIA (test code = SOPHIA) Music Therapy Specialist ID - SATISH Castellano Lab Interpretation (test Normal code = 49504-1) [facility] CenterAlpha fetoprotein (AFP), tumor [id number] 12:08:22 Test Item Value Reference Range Interpretation Comments Alpha-Fetoprotein (test 2.0 ng/mL <10.0 code = 1834-1) SOPHIA (test code = SOPHIA) Music Therapy Specialist ID Darian Castellano Lab Interpretation (test Normal code = 79559-6) [facility] CenterALPHA FETOPROTEIN (AFP), TUMOR [id number] 12:08:22 Test Item Value Reference Range Interpretation Comments ALPHA-FETOPROTEIN (BEAKER) (test 2.0 ng/mL <10.0 code = 1094) Music Therapy Specialist ID Darian BACKOMPREHENSIVE METABOLIC [id number] 11:49:08 Test Item Value Reference Range Interpretation [...] S NOT APPLICABLE FOR DIALYSIS PATIEN TS. Music Therapy Specialist ID - SATISH FSpecimen moderately ictericPROTHROMBIN TIME/INR 2021-06-03 11:36:32 Test Item Value Reference Range Interpretation Comments PROTIME (BEAKER) 12.9 seconds 11.9-14.2 (test code = 759) INR (BEAKER) (test 0.99 See_Comment [Automat ed message] code = 370) The system [employer] generated this result transmitted ref erence range: <=5.90. The reference range was not used to int erpret this result as normal/abnormal . RECOMMENDED COUMADIN/WARFARIN INR THERAPY RANGESSTANDARD DOSE: 2.0 - 3.0 Includes: PROPHYLAXIS for venous thrombosis, systemic embolization; TREATMENT for venous thrombosis and/or pulmonary embolus.HIGH RISK: Target INR is 2.5-3.5 for patients with mechanical heart valves.POCT-GLUCOSE [id number] 11:33:50 Test Item Value Reference Range Interpretation Comments POC-GLUCOSE METER 181 mg/dL 70-110 H : TESTED A T [facility] 6720 (BEAKER) (test code = KENYA Mcmullen [place], 1538) [address]: Music Therapy Specialist/Techni grisel ID = [id number] for MIHIR DIAZ CBC W/PLT COUNT & AUTO [id number] 11:25:11 Test Item Value Reference Range Interpretation [...] % 0-1 PERCENT (BEAKER) (test code = 2511)
--- NOTE | 2023-05-12 22:06 | ER ---
Nurse's Notes [facility] Name: Katie Santiago Age: 53 yrs Sex: Female : 1970 Arrival Date: 05/12/2023 Time: 21:29 Bed IW5 Private MD: Diagnosis: Encounter for adjustment and management of vascular access device Presentation: 05/12 21:40 Chief complaint: Patient states: admitted for cancer treatment, and discharge with rv port-a-cath access at home for atb treatment, unable to flush the tubing. blood noted in the tubing. Coronavirus screen: At this time, the client does not indicate any symptoms associated with coronavirus-19. Ebola Screen: No symptoms or risks identified at this time. Initial Sepsis Screen: Does the patient meet any 2 criteria? No. Patient's initial sepsis screen is negative. Does the patient have a suspected source of infection? No. Patient's initial sepsis screen is negative. Risk Assessment: Do you want to hurt yourself or someone else? Patient reports no desire to harm self or others. Onset of symptoms was May 12, 2023. 21:40 Method Of Arrival: Wheelchair rv 21:40 Acuity: ERIN 4 rv Triage Assessment: 21:41 General: Appears comfortable, Behavior is calm, cooperative. Pain: Denies pain. Neuro: rv Level of Consciousness is awake, alert, obeys commands, Oriented to person, place, time, situation. Cardiovascular: Capillary refill < 3 seconds Patient's skin is warm and dry. Respiratory: Airway is patent Respiratory effort is even, unlabored. Derm: Skin is intact. Historical: - Allergies: 21:41 No Known Allergies; rv - PMHx: 21:41 Hypertensive disorder; liver cancer; rv - PSHx: 21:41 abd drainage for liver abscess (liver cancer); rv - Immunization history:: Adult Immunizations up to date. - Social history:: Smoking status: Patient denies any tobacco usage or history of. Screenin:34 [facility] ED Fall Risk Assessment (Adult) History of falling in the last 3 months, rv including since admission No falls in past 3 months (0 pts). Abuse screen: Denies threats or abuse. Denies injuries from another. Nutritional screening: No deficits noted. Tuberculosis screening: No symptoms or risk factors identified. Vital Signs: 21:40 BP 128 / 94; Pulse 102; Resp 18; Temp 99; Pulse Ox 96% on R/A; rv 22:35 BP 121 / 89; Pulse 99; Resp 18; Temp 98.7; Pulse Ox 96% on R/A; rv [place] Coma Score: 22:35 Eye Response: spontaneous(4). Motor Response: obeys commands(6). Verbal Response: rv oriented(5). Total: 15. ED Course: 21:30 Patient arrived in ED. jj6 21:41 Triage completed. rv 21:43 Ana King FNP-C is [facility]. kb 21:43 Deangelo Lomeli MD is Attending Physician. kb 21:43 Arm band placed on right wrist. rv 22:34 No provider procedures requiring assistance completed. Accessed Port-a-Cath. Clean \T\ rv dry. Dressing intact. Good blood return. Flushes easily. dc with port access for atb treatment at home. 22:36 Patient has correct armband on for positive identification. rv Administered Medications: No medications were administered Medication: 22:36 VIS not applicable for this client. rv Outcome: 22:05 Discharge ordered by MD. kb 22:35 Discharged to home ambulatory, with family, rv 22:35 Condition: good 22:35 Discharge instructions given to patient, family, Instructed on discharge instructions, follow up and referral plans. Demonstrated understanding of instructions, follow-up care, 22:36 Patient left the ED. rv Signatures: Ana King FNP-C FNP-Ckb Vicente, Ronaldo RN RN rv Shelia Mccarty jj6
--- NOTE | 2023-05-12 22:06 | EDPHYS ---
Physician Documentation [facility] Name: Katie Santiago Age: 53 yrs Sex: Female : 1970 Arrival Date: 05/12/2023 Time: 21:29 Bed IW5 Private MD: ED Physician Deangelo Lomeli HPI: 05/12 23:59 This 53 yrs old Female presents to ER via Wheelchair with complaints of PORT kb PROBLEM. 05/13 00:00 Patient is a 53-year-old female who recently had a Port-A-Cath placed and was kb discharged home to do IV antibiotics through the port. Family states they tried to flush the port, aspirate from the port and were not able to get it working so they came in to have it flushed.. Historical: - Allergies: 05/12 21:41 No Known Allergies; rv - PMHx: 21:41 Hypertensive disorder; liver cancer; rv - PSHx: 21:41 abd drainage for liver abscess (liver cancer); rv - Immunization history:: Adult Immunizations up to date. - Social history:: Smoking status: Patient denies any tobacco usage or history of. ROS: 05/13 00:00 Constitutional: Negative for fever, chills, and weight loss, kb All other systems are negative, Exam: 00:00 Constitutional: This is a well developed, well nourished patient who is awake, alert, kb and in no acute distress. Head/Face: Normocephalic, atraumatic. ENT: Moist Mucous membranes Cardiovascular: Regular rate Respiratory: Respirations even and unlabored. No increased work of breathing. Talking in full sentences Skin: Warm, dry with normal turgor. Normal color. MS/ Extremity: Pulses equal, no cyanosis. Neurovascular intact. Full, normal range of motion. Neuro: Awake and alert, GCS 15, oriented to person, place, time, and situation. Moves all extremities. Normal gait. 00:00 Skin: Port to right chest accessed. Tubing is full of blood.. Vital Signs: 05/12 21:40 BP 128 / 94; Pulse 102; Resp 18; Temp 99; Pulse Ox 96% on R/A; rv 22:35 BP 121 / 89; Pulse 99; Resp 18; Temp 98.7; Pulse Ox 96% on R/A; rv [place] Coma Score: 22:35 Eye Response: spontaneous(4). Motor Response: obeys commands(6). Verbal Response: rv oriented(5). Total: 15. MDM: 21:43 Patient medically screened. kb 05/13 00:02 Data reviewed: vital signs, nurses notes. Counseling: I had a detailed discussion with kb the patient and/or guardian regarding the historical points, exam findings, and any diagnostic results supporting the discharge/admit diagnosis, the need for outpatient follow up, a family practitioner, to return to the emergency department if symptoms worsen or persist or if there are any questions or concerns that arise at home. ED course: Port reaccessed and flushed. IV antibiotics started and infusing without resistance.. 05/12 21:46 Order name: Miriam. Order: place new port catheter; Complete Time: 22:34 kb Administered Medications: No medications were administered Disposition: 03:13 Co-signature as Attending Physician, Deangelo Lomeli MD I agree with the assessment sp4 and plan of care. I reviewed the patient's care provided by the Advanced Practice Provider and agree with the diagnosis and treatment plan. Disposition Summary: 05/12/23 22:05 Discharge Ordered Notes: Location: Home kb Condition: Stable kb Diagnosis - Encounter for adjustment and management of vascular access device kb Followup: kb - With: Emergency Department - When: As needed - Reason: Worsening of condition Followup: kb - With: Private Physician - When: 2 - 3 days - Reason: Recheck today's complaints, Continuance of care, Re-evaluation by your physician Discharge Instructions: - Discharge Summary Sheet kb - Implanted Port Home Guide kb Forms: - Medication Reconciliation Form kb - Thank You Letter kb - Antibiotic Education kb - Prescription Opioid Use kb - Patient Portal Instructions kb - Leadership Thank You Letter kb Signatures: Ana King FNP-C FNP-Didier Xie RN RN Deangelo Ro MD MD sp4
[2023-05-12 22:57] VITALS: O2SAT 96
[2023-05-12 22:58] VITALS: BP 121/89; TEMP 98.7
== END 2023-05-12 22:36 | disposition home or self-care (01) ==
LOC: ER 21:29
DX: Z45.2 Encounter for adjustment and management of vascular access device (principal)
CPT/HCPCS: 99284

== ENCOUNTER 2023-09-19 17:37 | Emergency (ER) | payer OTHER ==
--- OUTSIDE RECORDS SUMMARY | 2023-09-19 17:41 | XMS REPORT | Clinical Summary ---
Author Name Unknown Organization [facility] Address [address] [place] [address] Care Team Providers Care Phthalic Acid Purifier Name Role Phone Melanie Nuñez Unavailable Encounters Date Type Department Care Team Description 08/24/2023 Travel 04/09/2023 9:55 PM CDT Ancillary Procedure [facility] [address] [place] [address] [id number] Cancer 04/09/2023 9:50 PM CDT Ancillary Procedure [facility] [address] [place] [address] 43897 Cancer 03/29/2023 9:55 PM CDT Ancillary Procedure [facility] [address] [place] [address] 64832 Cancer 03/29/2023 9:50 PM CDT Ancillary Procedure [facility] [address] [place] [address] 78138 Cancer 03/29/2023 9:45 PM CDT Ancillary Procedure [facility] [address] [place] [address] 24767 Cancer 03/29/2023 9:40 PM CDT Ancillary Procedure [facility] [address] [place] [address] 56548 Cancer 03/29/2023 9:35 PM CDT Ancillary Procedure [facility] [address] [place] [address] 22763 Cancer 03/29/2023 9:30 PM CDT Ancillary Procedure [facility] [address] [place] [address] 70439 Cancer 03/29/2023 9:25 PM CDT Ancillary Procedure [facility] [address] [place] [address] Cancer 03/29/2023 9:20 PM CDT Ancillary Procedure [facility] [address] [place] [address] 87837 Cancer 03/29/2023 9:15 PM CDT Ancillary Procedure [facility] [address] [place] [address] 99371 Cancer 03/29/2023 9:10 PM CDT Ancillary Procedure [facility] [address] [place] [address] 01916 Cancer 03/29/2023 9:05 PM CDT Ancillary Procedure [facility] [address] [place] [address] 14758 Cancer 03/29/2023 9:00 PM CDT Ancillary Procedure [facility] [address] [place] [address] 83443 Cancer 03/29/2023 8:55 PM CDT Ancillary Procedure [facility] [address] [place] [address] 42823 Cancer 03/29/2023 8:50 PM CDT Ancillary Procedure [facility] [address] [place] [address] 09308 Cancer 03/29/2023 8:45 PM CDT Ancillary Procedure [facility] [address] [place] [address] 48326 Cancer 03/29/2023 8:40 PM CDT Ancillary Procedure [facility] [address] [place] [address] 29266 Cancer 03/29/2023 8:35 PM CDT Ancillary Procedure [facility] [address] [place] [address] 12237 Cancer 03/29/2023 8:30 PM CDT Ancillary Procedure [facility] [address] [place] [address] 52872 Cancer 03/29/2023 8:25 PM CDT Ancillary Procedure [facility] [address] [place] [address] Cancer 03/29/2023 8:20 PM CDT Ancillary Procedure [facility] [address] [place] [address] Cancer 03/29/2023 8:15 PM CDT [facility] [place] [address] Cancer 03/29/2023 8:10 PM CDT Ancillary [facility] [place] [address] Cancer 03/29/2023 8:05 PM CDT Ancillary Procedure Image [facility] [address] [place] [address] Cancer 03/29/2023 8:00 PM CDT Ancillary Procedure [facility] [place] [address] Cancer after 09/19/2022 Social History Tobacco Use Types Packs/Day Years Used Date Smoking Tobacco: Never Assessed Sex and Gender Information Value Date Recorded Sex Assigned at Not on file Gender Identity Not on file Sexual Orientation Not on file Job Start Date Occupation Industry Not on file Not on file Not on file Plan of Treatment Not on file Procedures Procedure Name Priority Date/Time Associated Diagnosis Comments OSI BONE SCAN Routine 03/29/2023 7:39 AM CDT Cancer OSI CT ABDOMEN AND PELVIS Routine 03/03/2023 9:48 PM CDT Cancer OSI CHEST Routine 02/02/2023 7:36 AM CDT Cancer OSI CT ABDOMEN AND PELVIS Routine 02/02/2023 7:36 AM CDT Cancer OSI CHEST Routine 02/01/2023 7:36 AM CDT Cancer OSI US ABDOMINAL COMPLETE Routine 01/31/2023 7:37 AM CDT Cancer OSI CT CHEST Routine 12/23/2022 7:37 AM CDT Cancer OSI MRI ABDOMEN Routine 12/23/2022 7:37 AM CDT Cancer OSI CHEST Routine 10/13/2022 7:38 AM CDT Cancer OSI CT CHEST Routine 10/13/2022 7:37 AM CDT Cancer after 09/19/2022 Results * OSI Bone Scan (03/29/2023 7:39 AM CDT) Narrative Systemgenerated, Documentation - 03/29/2023 7:39 AM CDT Study acquired at another institution. For comparison only. No MD Myron originated interpretation requested or available. Melanie Nuñez IMG OUTSIDE IMAGE OR DERABLES * OSI CT Abdomen and Pelvis (03/03/2023 9:48 PM CDT) Only the most recent of2 resultswithin the time period is included. Narrative Systemgenerated, Documentation - 04/09/2023 9:48 PM CDT Study acquired at another institution. For comparison only. No MD Myron originated interpretation requested or available. Melanie Nuñez IMG OUTSIDE IMAGE OR DERABLES * OSI Chest (02/02/2023 7:36 AM CDT) Only the most recent of3 resultswithin the time period is included. Narrative Systemgenerated, Documentation - 03/29/2023 7:36 AM CDT Study acquired at another institution. For comparison only. No MD Myron originated interpretation requested or available. Melanie Velazcoonald IMG OUTSIDE IMAGE OR DERABLES * OSI US Abdominal Complete (01/31/2023 7:37 AM CDT) Narrative Systemgenerated, Documentation - 03/29/2023 7:37 AM CDT Study acquired at another institution. For comparison only. No MD Myron originated interpretation requested or available. Melanie Nuñez IMG OUTSIDE IMAGE OR DERABLES * OSI MRI ABDOMEN (12/23/2022 7:37 AM CDT) Narrative Systemgenerated, Documentation - 03/29/2023 7:37 AM CDT Study acquired at another institution. For comparison only. No MD Sanches originated interpretation requested or available. Melanie Nuñez IMG OUTSIDE IMAGE OR DERABLES * OSI CT Chest (12/23/2022 7:37 AM CDT) Only the most recent of2 resultswithin the time period is included. Narrative Systemgenerated, Documentation - 03/29/2023 7:37 AM CDT Study acquired at another institution. For comparison only. No MD Sanches originated interpretation requested or available. Melanie Nuñez IMG OUTSIDE IMAGE OR DERABLES after 09/19/2022 Care Teams Phthalic Acid Purifier Relationship Specialty Start Date End Date Melanie Nuñez [address] [place] [id number] PCP - External Referring Family Practice 05/30/21
--- NOTE | 2023-09-19 18:48 | ER ---
Nurse's Notes [facility] Name: Katie Santiago Age: 53 yrs Sex: Female : 1970 Arrival Date: 09/19/2023 Time: 17:37 Bed 20 Private MD: Diagnosis: Pain at port site Presentation: 09/18 17:53 Chief complaint: Patient states: pt wants her pot-a-cath changed out for proper size. as6 Coronavirus screen: At this time, the client does not indicate any symptoms associated with coronavirus-19. Ebola Screen: No symptoms or risks identified at this time. Initial Sepsis Screen: Does the patient meet any 2 criteria? No. Patient's initial sepsis screen is negative. Does the patient have a suspected source of infection? No. Patient's initial sepsis screen is negative. Risk Assessment: Do you want to hurt yourself or someone else? Patient reports no desire to harm self or others. Onset of symptoms was September 19, 2023. 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 - Social history:: Smoking status: Patient denies any tobacco usage or history of. Screenin:59 [facility] ED Fall Risk Assessment (Adult) History of falling in the last 3 months, mb9 including since admission No falls in past 3 months (0 pts) Confusion or Disorientation No (0 pts) Intoxicated or Sedated No (0 pts) Impaired Gait No (0 pts) Mobility Assist Device Used No (0 pt) Altered Elimination No (0 pt) Score/Fall Risk Level 0 - 2 = Low Risk Oriented to surroundings, Maintained a safe environment, Educated pt \T\ family on fall prevention, incl call for assistance when getting out of bed. Abuse screen: Denies threats or abuse. Nutritional screening: No deficits noted. Tuberculosis screening: No symptoms or risk factors identified. Assessment: 18:15 General: Appears in no apparent distress. Behavior is calm, cooperative. Pain: mb9 Complains of pain in port site on right chest. Neuro: Martin Agitation-Sedation Scale (RASS): 0 - Alert and Calm Level of Consciousness is awake, alert, obeys commands, Oriented to person, place, time, situation, Appropriate for age. Cardiovascular: Patient's skin is warm and dry. Respiratory: Airway is patent Respiratory effort is even, unlabored, Respiratory pattern is regular, symmetrical. GI: Abdomen is distended. : No signs and/or symptoms were reported regarding the genitourinary system. Derm: Skin is jaundiced. Musculoskeletal: Range of motion: intact in all extremities. Vital Signs: 17:53 BP 103 / 89; Pulse 104; Resp 18 S; Temp 97.6(TE); Pulse Ox 94% on R/A; Weight 53.98 kg as6 (R); Height 5 ft. 1 in. (R); Pain 10/10; 18:38 BP 102 / 78; Pulse 92; Resp 16; Pulse Ox 99% on R/A; mb9 17:53 Body Mass Index 22.49 (53.98 kg, 154.94 cm) as6 17:53 Pain Scale: Adult as6 ED Course: 17:50 Patient arrived in ED. ra3 17:54 Triage completed. as6 17:54 Arm band placed on. as6 17:58 Renuka Billy MD is Attending Physician. sp3 17:59 Antonia Ulrich, JULISSA is Primary Nurse. mb9 17:59 Placed in gown. Bed in low position. Call light in reach. Side rails up X 1. Provided mb9 Education on: press call light if needing anything. Client placed on continuous cardiac and pulse oximetry monitoring. NIBP monitoring applied. Door closed. Noise minimized. Warm blanket given. 18:16 Accessed Port-a-Cath. Clean \T\ dry. Dressing intact. Good blood return. Flushes easily. mb9 18:38 No provider procedures requiring assistance completed. mb9 18:47 Patient did not have IV access during this emergency room visit. mb9 18:58 CXR XRAY In Process Unspecified. EDMS Administered Medications: No medications were administered Medication: 17:59 VIS not applicable for this client. mb9 Outcome: 18:48 Discharge ordered by . sp3 18:48 Discharged to home ambulatory, with family, mb9 18:48 Condition: stable 18:48 Discharge instructions given to patient, family, Instructed on discharge instructions, follow up and referral plans. Demonstrated understanding of instructions, follow-up care, 18:56 Patient left the ED. mb9 Signatures: Dispatcher [employer] Renuka Viramontes MD MD sp3 Gary Garcia RN RN as6 Antonia Ulrich RN RN mb9 Yuliya Mckinley ra3 Corrections: (The following items were deleted from the chart) 17:55 17:54 Allergies: antibiotic; as6 as6
--- NOTE | 2023-09-19 18:48 | EDPHYS ---
Physician Documentation [facility] Name: Katie Santiago Age: 53 yrs Sex: Female : 1970 Arrival Date: 09/19/2023 Time: 17:37 Bed 20 Private MD: ED Physician Renuka Billy HPI: 09/18 18:31 This 53 yrs old Female presents to ER via Wheelchair with complaints of sent sp3 by home health:port problem. 18:31 53-year-old female with a history of biliary cancer, hypertension who has a Port-A-Cath sp3 on the right side of her chest presents to the ED with chief complaint of pain at the Port-A-Cath site secondary to the needle insertion. Patient states that she feels like a needle was may be inserted incorrectly secondary to a "larger gap" that is present. She denies any shortness of breath, other pain, prior blood clot, substernal pain, dull pain, jaw pain, left arm pain, or any other anginal equivalents. Pain is definitely localized at the access site. This has been going on for several days. No trauma reported. ROS otherwise negative.. 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 - Social history:: Smoking status: Patient denies any tobacco usage or history of. ROS: 18:32 Constitutional: Negative for fever, chills, and weight loss, Eyes: Negative for injury, sp3 pain, redness, and discharge, ENT: Negative for injury, pain, and discharge, Neck: Negative for injury, pain, and swelling, Cardiovascular: Negative for chest pain, palpitations, and edema, Respiratory: Negative for shortness of breath, cough, wheezing, and pleuritic chest pain, Abdomen/GI: Negative for abdominal pain, nausea, vomiting, diarrhea, and constipation, Back: Negative for injury and pain, MS/Extremity: Negative for injury and deformity, Skin: Negative for injury, rash, and discoloration, Neuro: Negative for headache, weakness, numbness, tingling, and seizure, Psych: Negative for depression, anxiety, suicide ideation, homicidal ideation, and hallucinations, Allergy/Immunology: Negative for hives, rash, and allergies, Endocrine: Negative for neck swelling, polydipsia, polyuria, polyphagia, and marked weight changes, 18:32 All other systems are negative, Exam: 18:32 Constitutional: This is a well developed, well nourished patient who is awake, alert, sp3 and in no acute distress. Head/Face: Normocephalic, atraumatic. Neck: Trachea midline, no thyromegaly or masses palpated, and no cervical lymphadenopathy. Supple, full range of motion without nuchal rigidity, or vertebral point tenderness. No Meningismus. Cardiovascular: Regular rate and rhythm with a normal S1 and S2. No gallops, murmurs, or rubs. Normal PMI, no JVD. No pulse deficits. Respiratory: Lungs have equal breath sounds bilaterally, clear to auscultation and percussion. No rales, rhonchi or wheezes noted. No increased work of breathing, no retractions or nasal flaring. Abdomen/GI: Soft, non-tender, with normal bowel sounds. No distension or tympany. No guarding or rebound. No evidence of tenderness throughout. 18:32 Chest/axilla: Port site without erythema or other abnormality. No subcu air noted. Access port is in appropriate position from our standpoint. It is flushing and withdrawing without problem. . Vital Signs: 17:53 BP 103 / 89; Pulse 104; Resp 18 S; Temp 97.6(TE); Pulse Ox 94% on R/A; Weight 53.98 kg as6 (R); Height 5 ft. 1 in. (R); Pain 10/10; 18:38 BP 102 / 78; Pulse 92; Resp 16; Pulse Ox 99% on R/A; mb9 17:53 Body Mass Index 22.49 (53.98 kg, 154.94 cm) as6 17:53 Pain Scale: Adult as6 MDM: 18:04 Patient medically screened. sp3 18:33 Data reviewed: vital signs, nurses notes, radiologic studies. ED course: 53-year-old sp3 female with pain at the Port-A-Cath site. We offered changing out the access needle however patient wants to get an x-ray first just to make sure there is nothing else wrong. We told her that our access needle was similar to the one she already has. She states that she is following up with her oncology team tomorrow and since there is no change in the access needle that she prefers to wait to be seen at that time. Will obtain chest x-ray and if negative safely discharge patient home. We told her to return at any time if she changes her mind. Clinically I am not suspecting ACS, pneumothorax, local infection, PE, or any other critical process at this time.. 18:47 ED course: X-ray shows adequate placement without any other abnormality. Patient sp3 declines changing the access needle and we will discharge home at this time. She has she may return at any time if she changes her mind.. 09/18 18:13 Order name: CXR XRAY sp3 09/18 18:13 Order name: Recheck Vital Signs; Complete Time: 18:15 sp3 Administered Medications: No medications were administered Disposition Summary: 09/19/23 18:48 Discharge Ordered Notes: Location: Home sp3 Condition: Stable sp3 Diagnosis - Pain at port site sp3 Followup: sp3 - With: Private Physician - When: Upon discharge from the Emergency Department - Reason: Continuance of care Discharge Instructions: - Discharge Summary Sheet sp3 - Tunneled Catheter Insertion, Care After sp3 Forms: - Medication Reconciliation Form sp3 - Thank You Letter sp3 - Antibiotic Education sp3 - Prescription Opioid Use sp3 - Patient Portal Instructions sp3 - Leadership Thank You Letter sp3 Signatures: Dispatcher [employer] EDRenuka Yanez MD MD sp3 Gary Garcia, RN RN as6 Corrections: (The following items were deleted from the chart) 17:55 17:54 Allergies: antibiotic; as6 as6 18:13 18:13 Chest Single View+[email or web address] ordered. EDMS EDMS
--- NOTE | 2023-09-19 19:09 | RAD REPORT ---
EXAM DESCRIPTION: RAD - Chest Single View - 09/19/2023 6:56 pm CLINICAL HISTORY: Pain at portacath;Chest chica COMPARISON: Chest Single View dated 01/31/2023; Chest Single View dated 01/30/2023; Chest Single View dated 07/07/2021; Chest Single View dated 06/03/2021; Abdomen Pelvis W Contrast dated 01/30/2023 FINDINGS: Lines: Right IJ approach Port-A-Cath with tip overlying the distal SVC. The Port-A-Cath is accessed and angled with respect to the image. Lungs: No evidence of edema or pneumonia. Low lung volumes. Pleural: No significant pleural effusions or pneumothorax. Cardiac: The heart size is within normal limits. Mediastinum: Within normal limits. Bones: No acute fractures. Other: Biliary drainage catheter and stent overlying the right upper quadrant. IMPRESSION: Low lung volumes but no acute process otherwise identified. The Port-A-Cath reservoir is angled, but the catheter is accessed. The tip is in satisfactory position.
[2023-09-20 00:47] VITALS: BP 103/89; TEMP 97.6; O2SAT 94
== END 2023-09-19 18:56 | disposition home or self-care (01) ==
LOC: ER 17:37
DX: T82.848A Pain due to vascular prosthetic devices, implants and grafts, initial encounter (principal); Z85.05 Personal history of malignant neoplasm of liver; Z88.8 Allergy status to other drugs, medicaments and biological substances
CPT/HCPCS: 71045; 99284